=== PATIENT | male | born 1965 | race Caucasian/White ===

== ENCOUNTER → 2017-10-06 13:27 | Outpatient (CLI) | payer OTHER, SELFPAY ==
--- NOTE | 2017-10-06 13:32 | RAD_ITS ---
STUDY: X-RAY - LEFT TIBIA AND FIBULA REASON FOR EXAM: Male, 52 years old. Pain overlying the distal stump. TECHNIQUE: AP and lateral view(s) of the tibia and fibula were obtained. COMPARISON: None. FINDINGS: The patient is status post below knee amputation. Soft tissue swelling. RAD/Tibia & Fibula 2 Views IMPRESSION: Soft tissue swelling. Electronically Signed: Earnest Humphrey MD at 13:47 EDT Tel [phone], Service support ,
== END ==
PROVIDERS: Family Provider Family Medicine; PCP Family Medicine; Visit Provider Physician Assistant Surgical
DX: M79.605 Pain in left leg (principal); Z89.512 Acquired absence of left leg below knee
CPT/HCPCS: 73590

== ENCOUNTER → 2017-10-06 15:22 | Outpatient (CLI) | payer OTHER, SELFPAY ==
--- NOTE | 2017-10-06 15:29 | EKG12_ITS ---
Test Reason : PALP Blood Pressure : / mmHG Vent. Rate : 114 BPM Atrial Rate : 066 BPM P-R Int : 152 ms QRS Dur : 150 ms QT Int : 388 ms P-R-T Axes : 057 -31 110 degrees QTc Int : 534 ms Sinus rhythm with frequent Premature ventricular complexes Possible Left atrial enlargement Left axis deviation Left bundle branch block Abnormal ECG Confirmed by JIN BUSH, MAHSA ([id number]), editorial specialist MACHO SAUCEDO ([id number] on 10/10/2017 1:57:35 PM Referred By: Dharmesh Alonso Confirmed By:MAHSA ABDI MD
[2017-10-06 16:22] LABS: Absolute Lymphocyte Count 3.59 X10^3/ul (0.83-4.51); Absolute Neutrophil Count 5.8 X10^3/uL (2.0-7.7); Basophil# 0.07 X10^3/uL; Basophil% 0.6 % (0-1); Eosinophil# 0.56 X10^3/uL; Hemoglobin 13.7 g/dl (13.0-16.5); Lymphocyte # 3.59 X10^3/ul (4.0); Lymphocyte % 31.9 % (19-41); Mean Corp Hgb Conc 34.3 g/gl (32-36); Mean Corpuscular Hgb 31.1 pg (27.0-32.0); Mean Corpuscular Volume 90.9 fL (80-94); Mean Platelet Vol. 9.3 fl (6.2-12.0); Monocyte# 1.21 X10^3/uL; Monocyte% 10.7 % (0-10); Neutrophil # 5.82 X10^3/uL (2.7-7.7); Neutrophil % 51.6 % (47-70); Platelet Count 343 K/mm3 (150-450); RBC Distribution Width CV 14.8 % (11.6-14.6); RBC Distribution Width SD 48.3 fl (35.1-43.9); White Blood Count 11.3 K/mm3 (4.4-11.0)
[2017-10-06 16:24] LABS: POSITIVE COUNT NO; POSITIVE DIFFERENTIAL NO; POSITIVE MORPHOLOGY NO
[2017-10-06 16:43] LABS: Anion Gap 9 (5-15); BUN 10 mg/dL (7-18); BUN/Creat Ratio 6.1 RATIO (10-20); Calcium,Total 8.9 mg/dL (8.5-10.1); Chloride 99 mmol/L (98-107); Creatinine, Serum 1.63 mg/dL (0.70-1.30); EST Glomerular Filtration Rate 48 mL/min (>60); Est Glom Filt Rate - Afr Amer 57 mL/min (>60); Glucose 83 mg/dL (74-106); Magnesium 2.2 mg/dL (1.6-2.6); Potassium 4.1 mmol/L (3.5-5.1); Sodium Level 134 mmol/L (136-145)
== END ==
LOC: LAB 15:24
PROVIDERS: Visit Provider Internal Medicine
DX: I47.1 Supraventricular tachycardia (principal); M79.605 Pain in left leg; T87.89 Other complications of amputation stump
CPT/HCPCS: 36415; 80048; 83735; 85025; 93005

== ENCOUNTER 2017-10-20 21:15 | Emergency (ER) | payer OTHER, SELFPAY ==
[2017-10-20 21:16] VITALS: BP 157/93; PULSE 124; RESP 20; TEMP 37.4; O2SAT 98; BMI 28.8
--- NOTE | 2017-10-20 22:00 | ED.VISSUMM ---
- ER Visit Summary Date of Service: 10/20/17 Chief Complaint: Acute left stump pain with radiation to the groin, back and occiput. History of Present Illness: The patient is a 52 M who presents because of left stump pain. He states the pain radiates to his groin into his back and up his back to the back of his head then to his forehead. He reports severe photophobia. He states he had a fever. When asked what his temperature was he stated he was not able to take his temperature because he is ill. He denies runny nose, earache, sore throat or postnasal drainage. He does have a cough which is nonproductive. He has had a cough for over 2 weeks. He was treated with a course of azithromycin without improvement. He is a former smoker. He states he has not smoked in 1 year. Denies nausea, vomiting diarrhea. He denies dysuria, frequency, urgency or hematuria. He is pleasant and clindamycin. Clindamycin was started 2 weeks ago. He states he is scheduled for an MRI Monday morning to evaluate his left stump pain. Per prior records he has history of prior clots secondary to hypercoagulable state. He is on no 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 based on medicine list. Does have history of peripheral arterial disease, migraine headaches and hypertension. Physical Examination: Patient has a rag over his head. He will not allow me to remove the rack to look at his eyes. TMs are pearly white phlegm is noted. Nares patent. Posterior pharynx erythema XA. Neck is supple with no meningeal findings. Negative Kernig's presents to side. Lights were turned off and pupils were noted to be 2 mm equal and reactive. Uncertain whether he does or does not have photophobia. Unable to perform funduscopic exam. Heart is regular without murmur, gallop or rub. S1 and S2 are normal. Lungs are clear to auscultation with good movement of air bilaterally. Abdomen is soft nontender. Patient has pain out of proportion to light tactile stimulus of his left lower extremity. Patient states he has drainage from the stump. There is no evidence of drainage or erythema along the incision line. He has mild erythema over the patella, which she reports she has had for 2 weeks. There is no lymphangitis. There is no inguinal lymphadenopathy. Unable to determine if he has fluctuance because touching his skin causes him to scream out and withdraw his left lower extremity. Test Results: White count is slightly elevated and has been elevated on prior tests. Creatinine is 1.66. His creatinine has been elevated in the past. He was unaware that he had end-stage renal disease. Lactate was normal at 1.4. 4 view x-ray of the knee reveals osteopenia. There is mild degenerative changes noted. There is a stent noted mid/distal medial thigh secondary to peripheral arterial disease. Two-view chest x-ray reveals normal cardiac silhouette, mediastinum and lung parenchyma with no evidence of infiltrate. Emergency Department Course and Treatment: To evaluate patient's stump pain and x-ray was obtained to evaluate for foreign body subcutaneous air etc. Chest x-ray was obtained since he had cough for 2 weeks with no improvement and mild rales. There is no egophony or increased vocal fremitus. CBC and BMP were obtained as well as lactate because he reported he had similar presentation and had a significant infection which resulted in a BKA. He did receive IV Toradol for his headache and pain. When he was reassessed at 0125 he reports his headache and stomach pain resolved. He was informed that he has abnormal kidney functions and should avoid anti-inflammatory medication. Treatment Plan: Keep appointment for outpatient MRI. Avoid anti-inflammatory medication. Disposition: Discharged to home in stable and improved condition with resolution of pain Impression: 1. Acute left stump pain unknown etiology 2. Severe headache in patient with known history of migraines 3. Renal insufficiency, chronic 4. History of hypertension This note was generated with [employer] dictation software. It may contain incorrect words, spelling, and punctuation that were not noted in review of the chart prior to signing ED Disposition - Plan for ED Patient: Disposition: Home or Assisted Living Chief Complaint: Other, Pain/Inj Instructions: ED Insufficiency Renal, ED Acute Pain [facility] Referrals: Dharmesh Alonso MD [Primary Care Provider] - Keep Georgie appointment
--- NOTE | 2017-10-20 22:16 | RAD_ITS ---
STUDY: X-RAY - LEFT KNEE REASON FOR EXAM: Male, 52 years old. Infection to the left leg. TECHNIQUE: 4 view(s) of the knee. COMPARISON: Male of an 2017 FINDINGS: Patient status post below the knee amputation. The bones are diffusely demineralized. There are mild degenerative changes of the patellofemoral joint. There is a stent within the medial thigh. There is soft tissue swelling. RAD/Knee 4 or More Views IMPRESSION: Soft tissue swelling. Electronically Signed: Dona Lopez MD at 23:34 EDT Tel , Service support ,
[2017-10-20] MEDS: Ketorolac 30 MG/ML Syringe IV (22:52)
[2017-10-20] MEDS: 0.9% Normal Saline 1,000 ML 250 ML IV (22:52)
[2017-10-20 22:56] VITALS: BP 152/93; PULSE 117; RESP 18; O2SAT 98
[2017-10-20 23:08] LABS: Absolute Lymphocyte Count 3.42 X10^3/ul (0.83-4.51); Absolute Neutrophil Count 8.2 X10^3/uL (2.0-7.7); Basophil# 0.07 X10^3/uL; Basophil% 0.5 % (0-1); Eosinophil# 0.67 X10^3/uL; Eosinophils% 4.9 % (0-5); Hematocrit 39.4 % (40-54); Hemoglobin 13.8 g/dl (13.0-16.5); Lymphocyte # 3.42 X10^3/ul (4.0); Mean Corpuscular Hgb 31.9 pg (27.0-32.0); Mean Corpuscular Volume 91.2 fL (80-94); Mean Platelet Vol. 9.3 fl (6.2-12.0); Monocyte# 1.33 X10^3/uL; Monocyte% 9.7 % (0-10); Neutrophil # 8.18 X10^3/uL (2.7-7.7); Neutrophil % 59.7 % (47-70); Platelet Count 381 K/mm3 (150-450); RBC Distribution Width CV 14.8 % (11.6-14.6); RBC Distribution Width SD 48.2 fl (35.1-43.9); Red Blood Count 4.32 M/mm3 (4.6-6.2); White Blood Count 13.7 K/mm3 (4.4-11.0)
--- NOTE | 2017-10-20 23:10 | RAD_ITS ---
STUDY: X-RAY CHEST REASON FOR EXAM: Male, 52 years old. Cough. TECHNIQUE: AP and lateral views of the chest. COMPARISON: September 12, 2016 FINDINGS: The lungs are clear and expanded. There is no demonstrated pleural abnormality. Normal size heart. Normal mediastinum and edgar. Normal visualized pulmonary arteries. Normal visualized aortic arch and descending thoracic aorta. Normal visualized thoracic spine. Normal visualized ribs, clavicles, and shoulders. There is no demonstrated abnormality of the visualized soft tissue structures of the upper abdomen. RAD/Chest PA and Lateral IMPRESSION: No acute cardiopulmonary process. Electronically Signed: Dona Lopez MD at 23:35 EDT Tel , Service support ,
[2017-10-20 23:11] LABS: POSITIVE COUNT NO; POSITIVE DIFFERENTIAL NO; POSITIVE MORPHOLOGY NO
[2017-10-20 23:20] LABS: Anion Gap 8 (5-15); BUN 9 mg/dL (7-18); BUN/Creat Ratio 5.4 RATIO (10-20); Calcium,Total 8.7 mg/dL (8.5-10.1); Chloride 102 mmol/L (98-107); Creatinine, Serum 1.66 mg/dL (0.70-1.30); EST Glomerular Filtration Rate 47 mL/min (>60); Est Glom Filt Rate - Afr Amer 56 mL/min (>60); Estimated Creatinine Clearance 60.52 ml/min; Glucose 83 mg/dL (74-106); Potassium 4.1 mmol/L (3.5-5.1); Sodium Level 133 mmol/L (136-145)
[2017-10-20 23:29] LABS: Lactic Acid 1.4 mmol/L (0.4-2.0)
[2017-10-21 01:52] VITALS: BP 103/62; PULSE 74; RESP 19; O2SAT 97
--- NOTE | 2017-10-21 01:53 | ED.RN ---
IV DC'ED, CATHETER INTACT, SMALL GAUZE DRESSING PLACED. DISCHARGE INSTRUCTIONS GIVEN TO AND REVIEWED WITH PATIENT, PATIENT DENIES QUESTIONS OR CONCERNS AND VOICES UNDERSTANDING OF DISCHARGE INSTRUCTIONS. PT TO PRIVATE VEHICLE VIA WHEELCHAIR.
== END 2017-10-21 01:54 | disposition home or self-care (01) ==
PROVIDERS: Emergency Provider Emergency Medicine; Family Provider Internal Medicine; PCP Internal Medicine
DX: R51 Headache (principal); I12.9 Hypertensive chronic kidney disease with stage 1 through stage 4 chronic kidney disease, or unspecified chronic kidney disease; N18.9 Chronic kidney disease, unspecified; I73.9 Peripheral vascular disease, unspecified; Z87.891 Personal history of nicotine dependence; D68.59 Other primary thrombophilia; Z89.9 Acquired absence of limb, unspecified
CPT/HCPCS: 71046; 73564; 80048; 83605; 85025; 99284; J7030

== ENCOUNTER → 2017-10-21 07:58 | Outpatient (CLI) | payer OTHER, SELFPAY ==
--- NOTE | 2017-10-21 08:05 | MRI_ITS ---
STUDY: MRI LEFT KNEE REASON FOR EXAM: Male, 52 years old. Redness, seepage from end of stump, no open wound, x 2 weeks, not diabetic, wears prosthesis, recent fever not sure if from cold/cough or infection, antibiotics past 2 weeks, amputation due to blood clots 3 years ago TECHNIQUE: Standardized fat and water weighted pulse sequences were obtained in all 3 orthogonal planes. COMPARISON: None. FINDINGS: Normal medial meniscus. Normal hyaline cartilage of the medial femorotibial compartment. Normal medial femoral condyle and tibial plateau. Normal medial collateral ligamentous complex (MCL). Normal distal semimembranosus, gracilis and semitendinosus tendons. Normal lateral meniscus. Normal hyaline cartilage of the lateral femorotibial compartment. Normal lateral femoral condyle and tibial plateau. Normal proximal tibiofibular articulation. Normal lateral collateral (fibular) ligament. Normal popliteus tendon. Normal biceps femoris tendon. Normal anterior cruciate ligament (ACL). Normal posterior cruciate ligament (PCL). Normal congruent patellofemoral articulation. Normal hyaline cartilage of the patellofemoral compartment. Normal medial and lateral patellar retinaculum. Normal quadriceps tendon. Normal patellar tendon. Normal Hoffa's fat pad. There is no joint effusion. Within the region of the below knee amputation is noted distal surrounding inflammatory stranding and edema encompassing the anterior soft tissues extending along the anterior tibia as seen on series 3 image 14 in addition there is edema within the distal anterior aspect of the osseous amputation site of the tibia. Postcontrast imaging demonstrates enhancement of the tissues as well as the distal anterior aspect of the tibial amputation site within the cortex. The otherwise visualized osseous structures are unremarkable. MRI/Lower Ext Joint Only W/WO Cont IMPRESSION: 1. Findings consistent with distal soft tissue surrounding enhancement and inflammation corresponding to infection with small area of osteomyelitis within the distal anterior tibia given corresponding increased T2 signal and enhancement. The affected portion of the tibia encompasses approximately 4.5 cm of the distal anterior inferior tibia as seen on sagittal series 3 image 14. Electronically Signed: Antolin Lopez DO at 14:28 EDT , Service support ,
== END ==
LOC: MRI 07:58
PROVIDERS: Family Provider Internal Medicine; PCP Internal Medicine; Visit Provider Internal Medicine
DX: T87.89 Other complications of amputation stump (principal); M79.605 Pain in left leg
CPT/HCPCS: 73723; A9585

== ENCOUNTER → 2017-12-11 12:12 | Outpatient (CLI) | payer OTHER, SELFPAY ==
[2017-12-11 13:51] LABS: International Normalized Ratio 4.1
[2017-12-11 15:46] LABS: Prothrombin Time (Protime)PT. 40.3 SECONDS (11.7-14.9)
== END ==
PROVIDERS: Family Provider Internal Medicine; PCP Internal Medicine; Visit Provider Internal Medicine
DX: Z79.01 Long term (current) use of 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s (principal)
CPT/HCPCS: 36415; 85610

== ENCOUNTER → 2017-12-18 13:20 | Outpatient (CLI) | payer OTHER, SELFPAY ==
[2017-12-18 15:52] LABS: International Normalized Ratio 2.1; Prothrombin Time (Protime)PT. 23.9 SECONDS (11.7-14.9)
== END ==
PROVIDERS: Family Provider Internal Medicine; PCP Internal Medicine; Visit Provider Internal Medicine
DX: Z79.01 Long term (current) use of 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s (principal)
CPT/HCPCS: 36415; 85610

== ENCOUNTER → 2018-01-27 08:18 | Outpatient (CLI) | payer OTHER, SELFPAY ==
[2018-01-27 09:52] LABS: Basophil# 0.07 X10^3/uL; Basophil% 0.8 % (0-1); Eosinophil# 0.56 X10^3/uL; Eosinophils% 6.8 % (0-5); Hematocrit 41.3 % (40-54); Hemoglobin 13.2 g/dl (13.0-16.5); Lymphocyte % 36.2 % (19-41); Mean Corpuscular Hgb 30.1 pg (27.0-32.0); Mean Corpuscular Volume 94.3 fL (80-94); Mean Platelet Vol. 9.1 fl (6.2-12.0); Monocyte# 0.66 X10^3/uL; Neutrophil # 3.98 X10^3/uL (2.7-7.7); Neutrophil % 48.1 % (47-70); Platelet Count 344 K/mm3 (150-450); RBC Distribution Width CV 18.5 % (11.6-14.6); RBC Distribution Width SD 64.1 fl (35.1-43.9); Red Blood Count 4.38 M/mm3 (4.6-6.2); White Blood Count 8.3 K/mm3 (4.4-11.0)
[2018-01-27 09:53] LABS: Differential Indicated SCAN CRITERIA MET; POSITIVE COUNT NO; POSITIVE DIFFERENTIAL NO; POSITIVE MORPHOLOGY YES
[2018-01-27 10:25] LABS: ALB/GLOB Ratio 0.8 RATIO (0.9-2.4); AST(SGOT) 21 U/L (15-37); Alanine Aminotransfer ALT/SGPT 26 U/L (16-61); Albumin, Serum 3.6 g/dL (3.2-5.0); Alkaline Phosphatase 74 U/L (45-117); Anion Gap 7 (5-15); BUN 8 mg/dL (7-18); BUN/Creat Ratio 5.5 RATIO (10-20); Calcium,Total 9.4 mg/dL (8.5-10.1); Chloride 105 mmol/L (98-107); Creatinine, Serum 1.45 mg/dL (0.70-1.30); EST Glomerular Filtration Rate 54 mL/min (>60); Est Glom Filt Rate - Afr Amer 66 mL/min (>60); Globulin 4.5 g/dL (2.2-4.2); Glucose 95 mg/dL (74-106); Potassium 4.9 mmol/L (3.5-5.1); Protein, Total 8.1 g/dL (6.4-8.2); Sodium Level 141 mmol/L (136-145)
== END ==
PROVIDERS: Family Provider Internal Medicine; PCP Internal Medicine; Visit Provider Internal Medicine
DX: M86.9 Osteomyelitis, unspecified (principal)
CPT/HCPCS: 36415; 73562; 80053; 85025

== ENCOUNTER 2018-02-21 11:12 | Outpatient (RCR) | payer OTHER, SELFPAY ==
[2018-02-21 12:22] LABS: Prothrombin Time (Protime)PT. 37.6 SECONDS (11.7-14.9)
[2018-02-21 12:33] LABS: International Normalized Ratio 3.8
[2018-02-21 12:44] LABS: Anion Gap 7 (5-15); BUN 12 mg/dL (7-18); BUN/Creat Ratio 8.7 RATIO (10-20); Calcium,Total 8.9 mg/dL (8.5-10.1); Chloride 100 mmol/L (98-107); Cholesterol 102 mg/dL (200); Creatinine, Serum 1.38 mg/dL (0.70-1.30); EST Glomerular Filtration Rate 57 mL/min (>60); Est Glom Filt Rate - Afr Amer 70 mL/min (>60); Glucose 87 mg/dL (74-106); High Density Lipoprotein 36 mg/dL; Potassium 4.7 mmol/L (3.5-5.1); Sodium Level 133 mmol/L (136-145); Triglycerides 138 mg/dL; Very Low Density Lipoprotein 28 mg/dL (5-40)
== END 2018-02-21 13:00 | disposition home or self-care (01) ==
LOC: MTLAB 11:12
PROVIDERS: Family Provider Internal Medicine; PCP Internal Medicine; Referring Provider Internal Medicine; Visit Provider Internal Medicine
DX: I10 Essential (primary) hypertension (principal); I25.10 Atherosclerotic heart disease of native coronary artery without angina pectoris; Z51.81 Encounter for therapeutic drug level monitoring; Z79.01 Long term (current) use of 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s
CPT/HCPCS: 36415; 80048; 80061; 85610

== ENCOUNTER 2018-03-05 09:56 | Outpatient (RCR) | payer OTHER, SELFPAY ==
[2018-03-05 10:14] VITALS: BP 126/89; PULSE 79; RESP 18; TEMP 36.2; BMI 25.1
--- NOTE | 2018-03-05 22:37 | HBO.CON.PC_ITS ---
History of Present Illness Date of Service: 03/05/18 Presenting Chief Complaint: Chronic refractory osteomyeliti left BKA stump. The patient is a 52 year old M who [facility] the possibility of initiating hyperbaric oxygen therapy for treatment of chronic refractory osteomyelitis left BKA stump. He also has pain in his left BKA stump. 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 He had a nonhealing ulcer anteriorly over the bone that is presently healed. He was recently admitted to [facility] for IV antibiotics because of this ulceration and underlying osteomyelitis. He had an MRI done on 10/21/17 which showed osteomyelitis. During his IV antibiotic therapy, he developed a blood clot and PE. He is now on Coumadin. Because of the pain in his stump, he is unable to use his prosthesis. Today he denies any fever. He denies any recent trauma. He presents at this time for further evaluation for HBO therapy for his chronic refractory osteomyelitis. Past Medical History Past Medical History Pertinent to Hyperbaric Oxygen Therapy: - - had PE during the Summer that is being treated with Coumadin. Chronic Problems (Last Updated 02/21/18 @ 10:20 by Stella Zamora) 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) Former smoker (Chronic) FPC current use of 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 (Chronic) Patient is on Coumadin for PE Chronic osteomyelitis of left tibia (Chronic) chronic osteomyelitis left tibia at BKA stump 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) Pain of amputation stump of left lower extremity (Chronic) Dermatitis (Chronic) CAD (coronary artery disease) (Chronic) Osteomyelitis of left lower extremity (Chronic) Tachycardia (Chronic) Pain of left anterior lower extremity (Chronic) HTN (hypertension) (Chronic) Hypertension (Chronic) Peripheral arterial disease (Chronic) SVT (supraventricular tachycardia) (Chronic) Hypercoagulable state (Chronic) Wound, surgical, nonhealing (Chronic) Ischemic ulcer of right foot (Chronic) Allergies/Adverse Reactions: Allergies oxycodone [From OxyContin] Allergy (Verified 02/21/18 10:37) Other Penicillins Allergy (Verified 02/21/18 10:37) Swelling Home Medications: Ambulatory Orders Medication Instructions Recorded atorvastatin 40 mg tablet 40 mg PO QDAY #90 tab 01/26/18 carvedilol 12.5 mg tablet 12.5 mg PO BID #90 tab 01/26/18 tramadol 50 mg tablet 50 mg PO Q6H PRN #60 tab 01/26/18 warfarin 3 mg tablet 3 mg PO QDAY #90 tab 01/26/18 lisinopril 20 mg tablet 20 mg PO DAILY #90 tab 02/09/18 Gabapentin [Neurontin] 300 mg PO 03/05/18 Oxycodone HCl/Acetaminophen 1 tablet PO Q6H PRN PRN 03/05/18 [Percocet 2.5-325 mg Tablet] Maternal Family History: Family History (Last Reviewed 02/09/18 @ 08:15 by Mila Taveras) Other CVA (cerebral vascular accident) Cancer Heart disease Family History: Cancer, Diabetes, Heart Disease, Renal Disease Paternal Family History: Family History (Last Reviewed 02/09/18 @ 08:15 by Mila Taveras) Other CVA (cerebral vascular accident) Cancer Heart disease Family History: Cancer Lives: Spouse/ Significant Other Smoking Status: Former smoker Alcohol: None Drugs: None Review of Systems General - Denies fever and weight loss. Has fatigue. Eyes - Denies cataracts and glaucoma. ENT - Denies nasal congestion and sore throat. Endocrine - Denies excessive thirst and urination. Skin - Denies suspicious lesions and skin cancer. Musculoskeletal - Has joint pain, joint stiffness, weakness of muscles and joints. Denies back pain and arthritis. Has left BKA. Has osteomyelitis. Neuro - Has headaches. Cardiovascular - Denies chest pain and shortness of breath with exertion. Has fatigue. Psych - Denies anxiety and depression. Respiratory - Denies chronic cough and shortness of breath. Patient is a former smoker. Gastrointestinal - Denies nausea, vomiting, diarrhea, and constipation. Hematologic - Has abnormal bruising and bleeding tendency as he is on Coumadin for a PE. Genitourinary - Denies hematuria and urinary frequency. - Physical Exam General - Alert and Oriented HEENT - PERRL. EOMI. Throat is clear. TM's are clear. No bleeding noted. Neck - Supple and nontender. No cervical adenopathy. Lungs - Clear to auscultation. Heart - Regular rate and rhythm. Abdomen - Soft and nondistended. Extremities - FROM except for left lower extremity secondary to left BKA. No axillary adenopathy. Radial pulses are palpable. Femoral pulses are palpable. On the left BKA stump anteriorly over the tibial bone is scar tissue from recent ulceration that is healed at this time. Tenderness to palpation. No drainage expressed. No evidence of cellulitis, fluctuance, or purulent drainage. The length of the tibia from the anterior tibial tubercle is 12 cm. Neuro - CN II-XII grossly intact. Psych - Normal mood and affect. Vital Signs Temp Pulse Resp BP 97.2 F L 79 18 126/89 H 03/05/18 10:14 03/05/18 10:14 03/05/18 10:14 03/05/18 10:14 Wound Measurements and Assessment - Nurse 1 - General Ulcer Measurement Start: 03/05/18 10:13 Freq: Status: Active Protocol: Activity Type Activity Date Activity User E-Sign Co-Sign Detail Recorded Client Recorded Date Recorded By Document 03/05/18 10:14 DL [id number] 03/05/18 10:25 DL 03/05/18 10:14 Wound Center Nurse 1 [Ulcer Assessment] #3 L BKA stump -Current Size (cm) - Length 0.1 -Current Size (cm) - Width 0.1 -Current Size (cm) - Depth 0.1 -Total Square Cm 0.01 -Photo Taken Yes -Tunneling No -Classification - Thickness Partial Thickness -Exudate Amt Small (1-33%) -Exudate Type Yellow/Green -Wound Margin Flat & Intact -Granulation Amt None Present (0 %) -Necrosis Amt None Present (0 %) -Structure Exposed N/A -Texture (Ami-wound Skin Appearance) Scarring -Moisture (Ami-wound Skin Appearance No Abnormality ) -Color (Ami-wound Skin Appearance) No Abnormality -Temperature (Ami-wound Skin No Abnormality Appearance) (Pt Warm) -Ulcer Cleansing Rinsed/ Irrigated with Saline -Foul Odor after Cleansing No -Anesthetic Used 4% Lidocaine Solution - Nurse 2 - General Ulcer CM Notes Start: 03/05/18 10:13 Freq: Status: Active Protocol: Activity Type Activity Date Activity User E-Sign Co-Sign Detail Recorded Client Recorded Date Recorded By Document 03/05/18 11:05 FLAVIA [id number] 03/05/18 11:13 FLAVIA 03/05/18 11:05 Wound Center Nurse 2 [Procedure/Treatment] -Correct Patient No -Correct Side, Site, Position No -Correct Procedure No -Procedure Performed No -Wound/Ulcer Outcome Not Healed -Ulcer Cleansing Rinsed/ Irrigated with Saline -Foul Odor after Cleansing No -Bioengineered Tissue No -Bleeding Controlled with NA -Treatment Response Procedure Tolerated Well [See Physician Procedure note for Specifics] Pain Scale: 0-10 Numeric [Pain] -Is Patient Pain Free? Yes Assessment/Plan JANIE CHIN is an appropriate candidate for hyperbaric oxygen therapy. Hyperbaric Oxygen Therapy would be an essential adjunct in the resolution and treatment of this patient's presenting problem of chronic refractory osteomyelitis in left BKA stump. This patient has sufficient physiologic and psychological stamina to undergo the rigors of hyperbaric oxygen therapy. As such, I recommend the following: Hyperbaric Oxygen Treatments at 2.0 SHARDA in 100% Oxygen for 90 minutes per treatment, for 40 treatments. His ears are ok. His last CXR was back in September but since then he had a PE during the Summer. Therefore will obtain another CXR prior to starting HBO therapy. I have discussed the possible benefits of hyperbaric oxygen therapy with this patient. I have also presented and described the risks, including: air gas embolism, pneumothorax, central nervous system and pulmonary oxygen toxicity, flash pulmonary edema, hypoglycemia, reversible visual refractive changes, ear and sinus jelena-trauma, and confinement anxiety. The patient has verbalized understanding of these risks, and is still wanting to undergo hyperbaric oxygen therapy. The patient understands the significant time and transportation commitment involved in daily treatments of up to two hours duration and has stated that they are willing to commit to this therapy. With his history of osteomyelitis, he would benefit from HBO treatments. Would do treatments before any operative intervention and then do treatments after surgery as well to help the healing process. Recommend operative intervention with initial surgical preparation of the left BKA stump with excisional debridement of the nonhealing ulcer with partial ostectomy tibia for osteomyelitis. Would leave the wound open and proceed with the VAC or with daily Silver dressing changes. If osteomyelitis is present, would need IV antibiotics. Prior to revision of the amputation stump with readvancement of the muscle flap and partial ostectomy and secondary wound closure, will need Pathology report that is negative for osteomyelitis. Depending on the severity of the osteomyelitis and the proximal extent of the osteomyelitis, I may not be able to revise the left BKA stump if too much of the tibia has to be removed to control the osteomyelitis. If so, then would need to proceed to a left AKA. - HBOT Diagnosis Chronic Refractory Osteomyelitis (730.1)
== END 2018-03-28 23:59 ==
LOC: WC 09:56
PROVIDERS: Family Provider Internal Medicine; PCP Internal Medicine; Visit Provider Surgery
DX: M86.662 Other chronic osteomyelitis, left tibia and fibula (principal); Z89.512 Acquired absence of left leg below knee; Z86.711 Personal history of pulmonary embolism; Z79.01 Long term (current) use of 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s; Z87.891 Personal history of nicotine dependence; I10 Essential (primary) hypertension; I25.10 Atherosclerotic heart disease of native coronary artery without angina pectoris; I73.9 Peripheral vascular disease, unspecified; Z79.899 Other long term (current) drug therapy
CPT/HCPCS: 99213; G0463

== ENCOUNTER 2018-03-07 13:52 | Outpatient (RCR) | payer OTHER, SELFPAY ==
--- NOTE | 2018-03-07 14:11 | RAD_ITS ---
STUDY: X-RAY CHEST REASON FOR EXAM: Male, 52 years old. Hyperbaric oxygen therapy. No complaints TECHNIQUE: 2 views COMPARISON: October 20, 2017 FINDINGS: The lungs are clear and expanded. There is no demonstrated pleural abnormality. Normal size heart. Normal mediastinum and edgar. Normal visualized pulmonary arteries. Normal visualized aortic arch and descending thoracic aorta. Normal visualized thoracic spine. Normal visualized ribs, clavicles, and shoulders. There is no demonstrated abnormality of the visualized soft tissue structures of the upper abdomen. RAD/Chest PA and Lateral IMPRESSION: Normal x-ray examination of the chest. No acute findings in the lungs Electronically Signed: James Ortiz MD at 4:45 EDT Tel , Service support ,
[2018-03-07 17:26] LABS: Prothrombin Time (Protime)PT. 39.6 SECONDS (11.7-14.9)
== END 2018-03-07 16:00 | disposition home or self-care (01) ==
LOC: LAB 13:52
PROVIDERS: Family Provider Internal Medicine; PCP Internal Medicine; Referring Provider Internal Medicine; Visit Provider Internal Medicine
DX: Z79.01 Long term (current) use of 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s (principal); R05 Cough
CPT/HCPCS: 36415; 71046; 85610

== ENCOUNTER 2018-04-03 10:50 | Inpatient (IN) | payer OTHER, SELFPAY ==
[2018-04-03 11:29] VITALS: BP 137/95; PULSE 80; RESP 18; TEMP 36.4; O2SAT 99; BMI 24.5
--- NOTE | 2018-04-03 12:23 | PCM.RX.CS ---
Consult Pharmacy has been consulted to manage selected antiobiotic: Vancomycin Type of Consult: New start Suspected Infection: Other Weight used for dosin kg Estimated Creatinine Clearance: 72 mL/min Goal Trough: 15-20 mcg/mL Pharmacy Plan for Drug Dosing: Vancomycin 1250mg IV x1 followed by 1250mg IV q12h with trough prior to 4th dose per nomogram. Pharmacy Service will continue to monitor and adjust dosing as required. Follow-Up Labs: Trough Vancomycin - 04/04 @ 2130
[2018-04-03 12:47] LABS: Hematocrit 40.7 % (40-54); Hemoglobin 13.7 g/dl (13.0-16.5); Mean Corp Hgb Conc 33.7 g/gl (32-36); Mean Corpuscular Hgb 31.4 pg (27.0-32.0); Mean Corpuscular Volume 93.3 fL (80-94); Mean Platelet Vol. 9.2 fl (6.2-12.0); Platelet Count 294 K/mm3 (150-450); RBC Distribution Width CV 15.6 % (11.6-14.6); RBC Distribution Width SD 52.9 fl (35.1-43.9); Red Blood Count 4.36 M/mm3 (4.6-6.2); Scan Indicated on CBC? Y/N NO
[2018-04-03 12:54] LABS: International Normalized Ratio 2.1; Partial Thromboplast Time 41.9 Seconds (24.1-36.2)
[2018-04-03 13:11] LABS: ALB/GLOB Ratio 0.8 RATIO (0.9-2.4); AST(SGOT) 28 U/L (15-37); Alanine Aminotransfer ALT/SGPT 38 U/L (16-61); Albumin, Serum 3.8 g/dL (3.2-5.0); Alkaline Phosphatase 95 U/L (45-117); Anion Gap 8 (5-15); BUN 14 mg/dL (7-18); BUN/Creat Ratio 10.7 RATIO (10-20); Calcium,Total 8.6 mg/dL (8.5-10.1); Chloride 103 mmol/L (98-107); Creatinine, Serum 1.31 mg/dL (0.70-1.30); EST Glomerular Filtration Rate 61 mL/min (>60); Est Glom Filt Rate - Afr Amer 74 mL/min (>60); Estimated Creatinine Clearance 76.69 ml/min; Globulin 4.6 g/dL (2.2-4.2); Glucose 54 mg/dL (74-106); Prealbumin 31.2 mg/dL (20.0-40.0); Protein, Total 8.4 g/dL (6.4-8.2); Sodium Level 135 mmol/L (136-145)
--- NOTE | 2018-04-03 13:14 | CASEMGMT ---
DARSHAN WINCHESTER INITIAL ASSESSMENT D/C PLAN: Home. Agreeable to [facility] if goes home on IV atb's. Face to Face with patient for initial transition planning/care coordination assessment. DARSHAN WINCHESTER introduced self and role at [facility]. Care providers, pharmacy, and demographics verified. PCP: Dr Alonso Specialists: Shilpa Ramos Pharmacy: [facility] [place] Insurance: [employer] Prescription Benefit: [employer] Living Will/HPOA: Has both LW and HPOA. HPOA is his , Roxana. Pt states thought [facility] had copies from prior admissions. Not found on e-chart. Asked pt if his could bring in paperwork so they could be scanned in. LNOK: Living Arrangements: Lives with his , son, and daughter. Lives in one-story home. Has ramp to enter. Transportation: Pt drives and able to provide transportation if needed. DME: Has shower chair/tub bench, cane, crutches, walker, and wheelchair. Denies other DME needs. HHC: Has used a couple different HHC agencies in the past. Does not remember names of the agencies. Has no preference of HHC agency on discharge if he would need. Also states has no preference of infusion company for IV antibiotics. Pt wishes to return home on discharge. Agreeable to [facility] if goes home on IV atb's. CM to follow for any further discharge planning needs that may arise. Gina PATEL RN, CM
--- NOTE | 2018-04-03 15:55 | RAD_ITS ---
STUDY: X-RAY CHEST REASON FOR EXAM: Male, 52 years old. PICC line placement TECHNIQUE: 2 AP portable views COMPARISON: 03/07/2018 FINDINGS: Left-sided PICC line has been placed, tip is in the distal SVC. The lungs are clear and expanded. There is no demonstrated pleural abnormality. Normal size heart. Normal mediastinum and edgar. Normal visualized pulmonary arteries. Normal visualized aortic arch and descending thoracic aorta. Normal visualized thoracic spine. Normal visualized ribs, clavicles, and shoulders. There is no demonstrated abnormality of the visualized soft tissue structures of the upper abdomen. RAD/CXR for Line Placement IMPRESSION: No acute pulmonary process Left PICC line tip in the distal SVC Electronically Signed: Cody Bosch MD at 16:58 EST , Service support ,
[2018-04-03] MEDS: Lactated Ringers 1,000 ML 60 ML IV (16:55)
[2018-04-03] MEDS: levoFLOXacin IV 500 MG/100 ML BAG 100 MG IV (16:55)
[2018-04-03 17:00] VITALS: BP 135/95; PULSE 98; RESP 18; TEMP 36.8; O2SAT 98
[2018-04-03] MEDS: 0.9% NaCl Peripheral Flush Adult/Peds IV ×2 (17:00→18:25)
[2018-04-03] MEDS: oxyCODONE 5 MG Tablet 10 MG PO (17:06)
--- NOTE | 2018-04-03 17:24 | PCM.HP.BLA ---
History and Physical Date of Admission: 04/03/18 Allergies oxycodone [From OxyContin] Allergy (Verified 02/21/18 10:37) Other Penicillins Allergy (Verified 02/21/18 10:37) Swelling Medications atorvastatin 40 mg tablet 40 mg PO QDAY #90 tab 01/26/18 [Rx Confirmed 01/26/18] carvedilol 12.5 mg tablet 12.5 mg PO BID #90 tab 01/26/18 [Rx Confirmed 01/26/18] tramadol 50 mg tablet 50 mg PO Q6H PRN #60 tab 01/26/18 [Rx Confirmed 01/26/18] triamcinolone acetonide 0.025 % topical ointment 1 applic TOPICAL BID #454 g 01/26/18 [Rx Confirmed 01/26/18] warfarin 3 mg tablet 3 mg PO QDAY #90 tab 01/26/18 [Rx Confirmed 01/26/18] lisinopril 20 mg tablet 20 mg PO DAILY #90 tab 02/09/18 [Rx Confirmed 02/09/18] oxycodone-acetaminophen 5 mg-325 mg tablet 1 tab PO 4X/DAY PRN #30 tab 02/21/18 [Rx Confirmed 02/21/18] PFSH Medical History History of blood clots (Acute) Limb weakness (Acute) Difficulty balancing (Acute) Chest pain (Acute) Migraines (Acute) Fatigue (Acute) SOB (shortness of breath) (Acute) HTN (hypertension) (Chronic) Anemia (Acute) Arthritis (Acute) Gallstones (Acute) Vascular disease (Acute) Surgical History Amputation, traumatic, leg (Acute) H/O right heart catheterization (Acute) History of cholecystectomy (Acute) History of surgical removal of testicle (Acute) Family History Other CVA (cerebral vascular accident) Cancer Heart disease Social History Smoking Status: Former smoker how long ago did patient quit smokin alcohol intake: never substance use type: does not use what type of physical activity do you participate in: walking frequency: daily additional social history: DOES USE ASPIRIN DOES USE IBUPROFEN HPI evaluation nonhealing painful ulcer left BKA stump with associated osteomyelitis: Details: HISTORY OF PRESENT ILLNESS 52 year old man presents with complaints of pain in his left BKA stump. 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 He had a nonhealing ulcer anteriorly over the bone that is presently healed. He was recently admitted to [facility] for IV antibiotics because of this ulceration and underlying osteomyelitis. He had an MRI done on 10/21/17 which showed osteomyelitis. During his IV antibiotic therapy, he developed a blood clot and PE. He is now on Coumadin. Because of the pain in his stump, he is unable to use his prosthesis. Today he denies any fever. He denies any recent trauma. There has been some issues getting HBO approval before the surgery. So he presents today to start IV antibiotics and to start IV Heparin and stop the Coumadin in preparation for operative debridement of his amputation stump. REVIEW OF SYSTEMS General - Denies fever and weight loss. Has fatigue. Eyes - Denies cataracts and glaucoma. ENT - Denies nasal congestion and sore throat. Endocrine - Denies excessive thirst and urination. Skin - Denies suspicious lesions and skin cancer. Musculoskeletal - Has joint pain, joint stiffness, weakness of muscles and joints. Denies back pain and arthritis. Has left BKA. Has osteomyelitis. Neuro - Has headaches. Cardiovascular - Denies chest pain and shortness of breath with exertion. Has fatigue. Psych - Denies anxiety and depression. Respiratory - Denies chronic cough and shortness of breath. Patient is a former smoker. Gastrointestinal - Denies nausea, vomiting, diarrhea, and constipation. Hematologic - Has abnormal bruising and bleeding tendency as he is on Coumadin for a PE. Genitourinary - Denies hematuria and urinary frequency. PHYSICAL EXAMINATION General - Alert and Oriented HEENT - PERRL. EOMI. Throat is clear. Neck - Supple and nontender. No cervical adenopathy. Lungs - Clear to auscultation. Heart - Regular rate and rhythm. Abdomen - Soft and nondistended. Extremities - FROM except for left lower extremity secondary to left BKA. No axillary adenopathy. Radial pulses are palpable. Femoral pulses are palpable. On the left BKA stump anteriorly over the tibial bone is scar tissue with ulceration from a recent fall. Patient states it heals with scar tissue and then breaks open. Tenderness to palpation. No drainage expressed. No evidence of cellulitis, fluctuance, or purulent drainage. The length of the tibia from the anterior tibial tubercle is 12 cm. Neuro - CN II-XII grossly intact. Psych - Normal mood and affect. ASSESSMENT 1. Nonhealing ulcer left BKA stump. 2. Pain left BKA stump. 3. 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 4. 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 PLAN MRI from Sep, 2017 reviewed. Findings consistent with osteomyelitis. With his history of osteomyelitis, he would benefit from HBO treatments. Tried to do treatments before operative intervention. Had trouble getting the medical approval, so will do treatments after surgery to help the healing process. Recommend operative intervention with initial surgical preparation of the left BKA stump with excisional debridement of the nonhealing ulcer with partial ostectomy tibia for osteomyelitis. Would leave the wound open and proceed with the VAC or with daily Silver dressing changes. Will send bone to Pathology for analysis to evaluate for osteomyelitis and to Microbiology for culture. Previous cultures are unknown in [place] and patient thinks it may be MRSA. So will start with broad spectrum coverage with Vancomycin, Levaquin, and Flagyl. A positive culture may necessitate antibiotic modification. If osteomyelitis is present, would need IV antibiotics detention. With his history of infection, I anticipate at least 1-2 weeks of IV antibiotics and will have a PICC line placed. Prior to revision of the amputation stump with readvancement of the muscle flap and partial ostectomy and secondary wound closure, will need Pathology report that is negative for osteomyelitis. Depending on the severity of the osteomyelitis and the proximal extent of the osteomyelitis, I may not be able to revise the left BKA stump if too much of the tibia has to be removed to control the osteomyelitis. If so, then would need to proceed to a left AKA. At the time of the wound closure surgery, it would be done under general anesthesia and tourniquet control with a surgical observation overnight stay in the hospital. A drain will be placed for several days. Tissue and bone will be sent to Pathology for analysis to rule out carcinoma and to evaluate for osteomyelitis. Tissue and bone will be sent to Microbiology for culture. A positive culture may necessitate antibiotic modification. After healing has occurred and the swelling is controlled with a stump cake press operator, then he can be evaluated with his [employer] for revision of his prosthesis. Patient was informed of the risks and complications of the procedure including alternatives to surgery. These were discussed with the patient personally. Patient voices understanding and wishes to proceed with the current plan of HBO treatments for the osteomyelitis followed by operative intervention and followed by HBO treatments after surgery. With his Coumadin usage for his PE, will admit a couple of days prior to surgery to start him on IV Heparin coverage and stop the Coumadin. After surgery will resume the Coumadin and he will be discharged from the hospital when his INR has reached the proper level. Once the INR has been normalized, can then stop the IV Heparin.
--- NOTE | 2018-04-03 18:01 | PCM.PROGNOTE ---
Subjective: 52 year old male s/p left BKA done in 2014 for ischemic leg who uses prosthesis, with a hx of PAD, non-ischemic cardiomyopathy, HTN, DVT and PE, medication noncompliance, former smoker, who presents to the hospital for surgical debridement of left BKA stump. He has been having severe pain and discharge from the stump lately to the point where he can no longer use his prosthetic leg. He denies fevers and chills. He states he has not recently been on abx. He is on coumadin for DVT/PE, his PCP notes he is noncompliant. He was on IV abx earlier this year and had DVT/PE possibly from the PICC line and is now on coumadin for this. He plans to undergo an excisional debridement with Dr. Massey, possible plan to do AKA at some point depending how extensive the underlying osteomyeltitis is. There are no recent cultures in [facility]. - Physical Exam General: Alert, Oriented x3, Cooperative HEENT: Atraumatic, PERRLA, EOMI, Normocephalic Neck: Supple, No JVD, Negative Carotid Bruits Lungs: Clear to auscultation, Normal air movement Cardiovascular: Regular rate, No murmurs Abdomen: Bowel Sounds Present, Soft, Non Tender Extremities: No edema, Capillary Refill Less than 3 Seconds Skin: No rashes, No breakdown Musculoskeletal: No Tenderness to Palpation of Joints or Extremities, - - left stump BKA nonhealing. no surrounding erythema. Neurological: Cranial nerves II-XII grossly intact Psych/Mental Status: Normal Affect, Appropriate Vital Signs Temp Pulse Resp BP Pulse Ox 98.3 F 98 18 135/95 H 98 04/03/18 17:00 04/03/18 17:00 04/03/18 17:00 04/03/18 17:00 04/03/18 17:00 Oxygen Delivery Method Room Air Weight: 191 lb Body Mass Index (BMI) 24.5 Laboratory Tests Past 24 Hrs 04/03/18 04/03/18 04/03/18 12:30 12:30 12:30 WBC 10.0 RBC 4.36 L Hgb 13.7 Hct 40.7 MCV 93.3 MCH 31.4 MCHC 33.7 RDW 15.6 H RDW Differential 52.9 H Plt Count 294 MPV 9.2 PT 24.0 H INR 2.1 APTT 41.9 H Sodium 135 L Potassium 4.0 Chloride 103 Carbon Dioxide 24.0 Anion Gap 8 BUN 14 Creatinine 1.31 H Estim Creat Clear Calc 76.69 Est GFR (MDRD) Af Amer 74 Est GFR (MDRD) Non-Af 61 BUN/Creatinine Ratio 10.7 Glucose 54 L Calcium 8.6 Total Bilirubin 0.50 AST 28 ALT 38 Alkaline Phosphatase 95 Total Protein 8.4 H Albumin 3.8 Globulin 4.6 H Albumin/Globulin Ratio 0.8 L Prealbumin 31.2 Medical Necessity - Tobacco Use Smoking Status: Former smoker Assessment/Plan All Active Problems (Last Updated 02/21/18 @ 10:20 by Stella Zamora) Thrush, oral (Acute) Cellulitis (Acute) History of blood clots (Acute) Amputation, traumatic, leg (Acute) Limb weakness (Acute) Difficulty balancing (Acute) Chest pain (Acute) Migraines (Acute) Fatigue (Acute) SOB (shortness of breath) (Acute) Infection caused by Enterobacter cloacae (Acute) MSSA (methicillin susceptible Staphylococcus aureus) infection (Acute) Left foot pain (Acute) Left foot swelling (Acute) Left 3rd toe drainage (Acute) 1. Osteomyelitis and nonhealing stump ulcer L bka - to surgery with Dr. Massey when appropriate. On IV Vanco, flagyl, and levaquin. Need deep cultures. No fever or leukocytosis. obtain mrsa/mssa pcr. CXR neg with PICC in distal SVC. Will need assisted IV abx. 2. PAD - leading to above initial issues and nonhealing wounds + infections. 3. DVT/PE - coumadin. possibly initially 2/2 PICC line. Plan to start heparin and dc coumadin, restart coumadin post op and bridge. 4. CKDIII - stable 5. Nonischemic cardiomyopathy - no blockage on last cath, EF 35%. continue peace, coreg. 6. HTN - stable 7. HLD - statin DVT ppx: coumadin/heparin Thank you for the opportunity to participate in the care of this patient. This patient was seen by Francesco Elias PA-C under the supervision of Dr. Villalobos.
[2018-04-03] MEDS: Gabapentin 600 MG Tablet 1800 MG PO (18:20)
[2018-04-03] MEDS: HYDROmorphone 1 MG/ML Syringe IV (18:24)
[2018-04-03] MEDS: Ondansetron 4 MG/2 ML Vial IV (18:25)
[2018-04-03] MEDS: proMETHazine 25 MG Tablet PO (20:01)
[2018-04-03] MEDS: Atorvastatin Calcium 40 MG Tablet PO (22:30)
[2018-04-03] MEDS: Docusate Sodium 100 MG Capsule PO (22:30)
[2018-04-03 22:50] VITALS: BP 109/93; PULSE 69; RESP 16; TEMP 36.4; O2SAT 99
[2018-04-04] MEDS: oxyCODONE 5 MG Tablet 10 MG PO ×3 (01:08→20:44)
[2018-04-04 02:00] VITALS: BP 151/92; PULSE 82; RESP 16; TEMP 36.4; O2SAT 100
[2018-04-04] MEDS: 0.9% NaCl Peripheral Flush Adult/Peds IV (06:15)
[2018-04-04 06:21] LABS: International Normalized Ratio 2.3; Prothrombin Time (Protime)PT. 25.2 SECONDS (11.7-14.9)
[2018-04-04 06:38] LABS: Anion Gap 8 (5-15); BUN 16 mg/dL (7-18); BUN/Creat Ratio 11.5 RATIO (10-20); Calcium,Total 8.4 mg/dL (8.5-10.1); Chloride 105 mmol/L (98-107); Creatinine, Serum 1.39 mg/dL (0.70-1.30); EST Glomerular Filtration Rate 57 mL/min (>60); Est Glom Filt Rate - Afr Amer 69 mL/min (>60); Estimated Creatinine Clearance 72.28 ml/min; Glucose 98 mg/dL (74-106); Potassium 4.3 mmol/L (3.5-5.1); Sodium Level 137 mmol/L (136-145)
[2018-04-04 08:18] VITALS: BP 155/103; PULSE 97; RESP 18; TEMP 36.6; O2SAT 100
[2018-04-04] MEDS: Gabapentin 600 MG Tablet 1800 MG PO ×2 (08:20→17:23)
[2018-04-04] MEDS: Lisinopril 20 MG Tablet PO (08:21)
[2018-04-04] MEDS: levoFLOXacin IV 500 MG/100 ML BAG 100 MG IV (08:21)
[2018-04-04] MEDS: Carvedilol 12.5 MG Tablet PO (08:21)
[2018-04-04] MEDS: Docusate Sodium 100 MG Capsule PO ×2 (08:21→22:04)
[2018-04-04] MEDS: HYDROmorphone 1 MG/ML Syringe IV ×3 (08:26→22:10)
--- NOTE | 2018-04-04 08:42 | PN_ITS ---
Subjective: Patient is a 52-year-old male with multiple comorbidities including left BKA presented suspected osteomyelitis involving the stump. Patient was admitted by Dr. Massey with plans for patient to undergo excisional debridement. Hospitalist service was consulted to assist with management of patient medical comorbidities Objective: GENERAL: cooperative HEENT: Atraumatic; moist oral mucosa EYES; Anicteric, Normal Conjunctiva NECK; supple, normal thyroid, no distended JVD. RESPIRATORY: Diminished to auscultation bilaterally, CARDIOVASCULAR: Regular S1 S2, no audible murmurs GI: soft, non-tender, normoactive bowel sounds, : No Renal angle tenderness; EXTREMITIES: Left BKA with edema around the stump no open wound MUSCULOSKELETAL: No Joint Tenderness; no muscle waisting NEURO: Awake; no lateralizing signs. SKIN: No Rash PSYCH; Normal affect Vitals/I&O's: Vital Signs Temp Pulse Resp BP Pulse Ox 97.9 F 97 18 155/103 H 100 04/04/18 08:18 04/04/18 08:18 04/04/18 08:18 04/04/18 08:18 04/04/18 08:18 Oxygen Delivery Method Room Air Weight: 86.636 kg Body Mass Index (BMI) 24.5 Intake and Output for Last 24 Hours 04/02/18 04/03/18 04/04/18 23:59 23:59 23:59 Intake Total 620 / 620 2044 / 2044 Output Total 400 / 400 750 / 750 Balance 220 / 220 1294 / 1294 Laboratory Results 04/03/18 12:30: WBC 10.0, RBC 4.36 L, Hgb 13.7, Hct 40.7, MCV 93.3, MCH 31.4, MCHC 33.7, RDW 15.6 H, RDW Differential 52.9 H, Plt Count 294, MPV 9.2 04/03/18 12:30: PT 24.0 H, INR 2.1, APTT 41.9 H 04/03/18 12:30: Sodium 135 L, Potassium 4.0, Chloride 103, Carbon Dioxide 24.0, Anion Gap 8, BUN 14, Creatinine 1.31 H, Estim Creat Clear Calc 76.69, Est GFR (MDRD) Af Amer 74, Est GFR (MDRD) Non-Af 61, BUN/Creatinine Ratio 10.7, Glucose 54 L, Calcium 8.6, Total Bilirubin 0.50, AST 28, ALT 38, Alkaline Phosphatase 95, Total Protein 8.4 H, Albumin 3.8, Globulin 4.6 H, Albumin/Globulin Ratio 0.8 L, Prealbumin 31.2 04/04/18 06:00: PT 25.2 H, INR 2.3 04/04/18 06:00: Sodium 137, Potassium 4.3, Chloride 105, Carbon Dioxide 24.0, Anion Gap 8, BUN 16, Creatinine 1.39 H, Estim Creat Clear Calc 72.28, Est GFR (MDRD) Af Amer 69, Est GFR (MDRD) Non-Af 57 L, BUN/Creatinine Ratio 11.5, Glucose 98, Calcium 8.4 L Current Medications Atorvastatin Calcium (Lipitor) 40 mg PO QHS [facility] Last Admin: 04/03/18 22:30 Dose: 40 mg Carvedilol (Coreg) 12.5 mg PO DAILY [facility] Last Admin: 04/04/18 08:21 Dose: 12.5 mg Docusate Sodium (Colace) 100 mg PO BID [facility] Last Admin: 04/04/18 08:21 Dose: 100 mg Gabapentin (Neurontin) 1,800 mg PO BIDCM [facility] Last Admin: 04/04/18 08:20 Dose: 1,800 mg Hydromorphone HCl (Dilaudid Inj) 1 mg IV Q4H PRN PRN PRN Reason: SEVERE PAIN (6-1010) Last Admin: 04/04/18 08:26 Dose: 1 mg Levofloxacin (Levaquin Iv) 500 mg in 100 mls @ 100 mls/hr IV Q24 [facility] Last Admin: 04/04/18 08:21 Dose: 100 mls/hr Lactated Ringer's () 1,000 mls @ 60 mls/hr IV .[id number] [facility] Last Admin: 04/03/18 16:55 Dose: 60 mls/hr Metronidazole (Flagyl) 500 mg in 100 mls @ 100 mls/hr IV Q8 [facility] Last Admin: 04/04/18 06:13 Dose: 100 mls/hr Vancomycin IV Pharmacy to Dose (1 ea/ Sodium Chloride) 500 mls @ 250 mls/hr IV X1 PRN; Protocol PRN Reason: Rx to Dose Vancomycin HCl 1,250 mg/ (Sodium Chloride) 275 mls @ 167 mls/hr IV Q12H [facility] Last Admin: 04/03/18 22:31 Dose: 167 mls/hr Sodium Chloride () 250 mls @ 15 mls/hr IV .[id number] PRN PRN Reason: SALINE FLUSH Lisinopril (Zestril) 20 mg PO DAILY [facility] Last Admin: 04/04/18 08:21 Dose: 20 mg Ondansetron HCl (Zofran) 4 mg IV Q6H PRN PRN PRN Reason: NAUSEA Last Admin: 04/03/18 18:25 Dose: 4 mg Oxycodone HCl (Oxyir) 10 mg PO Q4H PRN PRN PRN Reason: SEVERE PAIN (6-10/10) Last Admin: 04/04/18 01:08 Dose: 10 mg Promethazine HCl (Phenergan Tablet) 25 mg PO Q4H PRN PRN PRN Reason: NAUSEA/VOMITING Last Admin: 04/03/18 20:01 Dose: 25 mg Sodium Chloride () 5 - 30 ml IV UD PRN PRN Reason: SALINE FLUSH Last Admin: 04/04/18 06:15 Dose: 30 ml Medical Necessity - Tobacco Use Smoking Status: Former smoker Assessment/Plan All Active Problems (Last Updated 02/21/18 @ 10:20 by Stella Zamora) Thrush, oral (Acute) Cellulitis (Acute) History of blood clots (Acute) Amputation, traumatic, leg (Acute) Limb weakness (Acute) Difficulty balancing (Acute) Chest pain (Acute) Migraines (Acute) Fatigue (Acute) SOB (shortness of breath) (Acute) Infection caused by Enterobacter cloacae (Acute) MSSA (methicillin susceptible Staphylococcus aureus) infection (Acute) Left foot pain (Acute) Left foot swelling (Acute) Left 3rd toe drainage (Acute) Patient is a 52-year-old male with multiple comorbidities including left BKA presented suspected osteomyelitis involving the stump. Patient was admitted by Dr. Massey with plans for patient to undergo excisional debridement. Hospitalist service was consulted to assist with management of patient medical comorbidities Hospitalist service was consulted to assist with management of patient medical comorbidities 1. Suspected days involving the left BKA stump. Admitted to regular nursing floor with plans for patient undergo excisional debridement by Dr. Penaloza on 04/05/2018 patient was started on Levaquin and vancomycin on admission 2. Essential hypertension-blood pressure controlled, home medications continued with dose adjustment as needed 3. Dyslipidemia-patient is on statin therapy, continued at home dose 4. History of previous DVT and PE patient is on Coumadin was 2.1 on admission 2.3 as of 04/04/2018. Plan is to hold the Coumadin and start systemic anticoagulation with heparin 5. Peripheral arterial disease 6. Renal failure do suspect acute renal failure possibly from dehydration baseline creatinine a year prior to his admission was within normal limits 7. DVT prophylaxis patient is on systemic 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 with Coumadin no need for additional measures. Active Medications Atorvastatin Calcium (Lipitor) 40 mg PO QHS [facility] Last Admin: 04/03/18 22:30 Dose: 40 mg Carvedilol (Coreg) 12.5 mg PO DAILY [facility] Last Admin: 04/04/18 08:21 Dose: 12.5 mg Docusate Sodium (Colace) 100 mg PO BID [facility] Last Admin: 04/04/18 08:21 Dose: 100 mg Gabapentin (Neurontin) 1,800 mg PO BIDCM [facility] Last Admin: 04/04/18 08:20 Dose: 1,800 mg Hydromorphone HCl (Dilaudid Inj) 1 mg IV Q4H PRN PRN PRN Reason: SEVERE PAIN (6-10) Last Admin: 04/04/18 08:26 Dose: 1 mg Levofloxacin (Levaquin Iv) 500 mg in 100 mls @ 100 mls/hr IV Q24 [facility] Last Admin: 04/04/18 08:21 Dose: 100 mls/hr Lactated Ringer's () 1,000 mls @ 60 mls/hr IV .[id number] [facility] Last Admin: 04/03/18 16:55 Dose: 60 mls/hr Metronidazole (Flagyl) 500 mg in 100 mls @ 100 mls/hr IV Q8 [facility] Last Admin: 04/04/18 06:13 Dose: 100 mls/hr Vancomycin IV Pharmacy to Dose (1 ea/ Sodium Chloride) 500 mls @ 250 mls/hr IV X1 PRN; Protocol PRN Reason: Rx to Dose Vancomycin HCl 1,250 mg/ (Sodium Chloride) 275 mls @ 167 mls/hr IV Q12H [facility] Last Admin: 04/03/18 22:31 Dose: 167 mls/hr Sodium Chloride () 250 mls @ 15 mls/hr IV .[id number] PRN PRN Reason: SALINE FLUSH Lisinopril (Zestril) 20 mg PO DAILY [facility] Last Admin: 04/04/18 08:21 Dose: 20 mg Ondansetron HCl (Zofran) 4 mg IV Q6H PRN PRN PRN Reason: NAUSEA Last Admin: 04/03/18 18:25 Dose: 4 mg Oxycodone HCl (Oxyir) 10 mg PO Q4H PRN PRN PRN Reason: SEVERE PAIN (6-1010) Last Admin: 04/04/18 01:08 Dose: 10 mg Promethazine HCl (Phenergan Tablet) 25 mg PO Q4H PRN PRN PRN Reason: NAUSEA/VOMITING Last Admin: 04/03/18 20:01 Dose: 25 mg Sodium Chloride () 5 - 30 ml IV UD PRN PRN Reason: SALINE FLUSH Last Admin: 04/04/18 06:15 Dose: 30 ml Code Visit Inpatient E&M: [id number] [facility] Hosp L3
--- NOTE | 2018-04-04 12:07 | CASEMGMT ---
DARSHAN [place] NOTE: Call placed to [facility] to inquire about financials/benefits. Ksenia from [facility] states pt's antibiotics will be covered @ 100%. Gina PATEL RN CM
--- NOTE | 2018-04-04 12:37 | CASEMGMT ---
DARSHAN [place] NOTE: Call placed to [facility] for HHC agency to be arranged. Spoke to Elham. Informed her that pt will need HHC: [facility] for both IV antibiotics and also Wound Vac care. Faxed the following clinical information to [facility]. [facility] order for [facility]: Wound Vac and IV antibiotics, PICC insertion documentation, H/P, Demographics sheet, and copy of Insurance card. Elham also made aware that this RN CM will not be available tomorrow for follow-up. Provided her with DARSHAN Lea's work number. DGiaubart CASTRON DARSHAN [place]
[2018-04-04 14:06] VITALS: BP 141/88; PULSE 79; RESP 18; TEMP 36.4; O2SAT 95
[2018-04-04 15:04] LABS: Partial Thromboplast Time 42.2 Seconds (24.1-36.2)
[2018-04-04] MEDS: HEPARIN/D5w 25,000 UNITS 25,000 UNITS/250 ML IV.SOLN. 12 UNITS IV (15:17)
[2018-04-04] MEDS: Lactated Ringers 1,000 ML 60 ML IV (17:25)
--- NOTE | 2018-04-04 18:59 | PN.SURG_ITS ---
Subjective: Patient is resting comfortably. 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 No axillary adenopathy. Radial pulses are palpable. Femoral pulses are palpable. On the left BKA stump anteriorly over the tibial bone is scar tissue with ulceration from a recent fall. Patient states it heals with scar tissue and then breaks open. Tenderness to palpation. No drainage expressed. No evidence of cellulitis, fluctuance, or purulent drainage. The length of the tibia from the anterior tibial tubercle is 12 cm. Neurological: Cranial nerves II-XII grossly intact Psych/Mental Status: Normal Affect, Appropriate Vital Signs Temp Pulse Resp BP Pulse Ox 97.6 F L 79 18 141/88 H 95 04/04/18 14:06 04/04/18 14:06 04/04/18 14:06 04/04/18 14:06 04/04/18 14:06 Oxygen Delivery Method Room Air Weight: 190 lb 14.725 oz Body Mass Index (BMI) 24.5 Intake and Output for Last 24 Hours 04/02/18 04/03/18 04/04/18 23:59 23:59 23:59 Intake Total 620 / 620 3776 / 3776 Output Total 400 / 400 2150 / 2150 Balance 220 / 220 1626 / 1626 Laboratory Tests Past 24 Hrs 04/04/18 04/04/18 04/04/18 06:00 06:00 14:40 PT 25.2 H INR 2.3 APTT 42.2 H Sodium 137 Potassium 4.3 Chloride 105 Carbon Dioxide 24.0 Anion Gap 8 BUN 16 Creatinine 1.39 H Estim Creat Clear Calc 72.28 Est GFR (MDRD) Af Amer 69 Est GFR (MDRD) Non-Af 57 L BUN/Creatinine Ratio 11.5 Glucose 98 Calcium 8.4 L Medical Necessity - Tobacco Use Smoking Status: Former smoker Assessment/Plan All Active Problems (Last Updated 02/21/18 @ 10:20 by Stella Zamora) Thrush, oral (Acute) Cellulitis (Acute) History of blood clots (Acute) Amputation, traumatic, leg (Acute) Limb weakness (Acute) Difficulty balancing (Acute) Chest pain (Acute) Migraines (Acute) Fatigue (Acute) SOB (shortness of breath) (Acute) Infection caused by Enterobacter cloacae (Acute) MSSA (methicillin susceptible Staphylococcus aureus) infection (Acute) Left foot pain (Acute) Left foot swelling (Acute) Left 3rd toe drainage (Acute) 1. Nonhealing ulcer left BKA stump. 2. Pain left BKA stump. 3. 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 4. 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 MRI from Sep, 2017 reviewed. Findings consistent with osteomyelitis. With his history of osteomyelitis, he would benefit from HBO treatments. Tried to do treatments before operative intervention. Had trouble getting the medical approval, so will do treatments after surgery to help the healing process. Recommend operative intervention with initial surgical preparation of the left BKA stump with excisional debridement of the nonhealing ulcer with partial ostectomy tibia for osteomyelitis. Would leave the wound open and proceed with the VAC or with daily Silver dressing changes. Will send bone to Pathology for analysis to evaluate for osteomyelitis and to Microbiology for culture. Previous cultures are unknown in [place] and patient thinks it may be MRSA. He is currently on Vancomycin, Levaquin, and Flagyl. A positive culture may necessitate antibiotic modification. 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 With his history of infection, I anticipate at least 1-2 weeks of IV antibiotics and will have a PICC line placed. Prior to revision of the amputation stump with readvancement of the muscle flap and partial ostectomy and secondary wound closure, will need Pathology report that is negative for osteomyelitis. Depending on the severity of the osteomyelitis and the proximal extent of the osteomyelitis, I may not be able to revise the left BKA stump if too much of the tibia has to be removed to control the osteomyelitis. If so, then would need to proceed to a left AKA. At the time of the wound closure surgery, it would be done under general anesthesia and tourniquet control with a surgical observation overnight stay in the hospital. A drain will be placed for several days. Tissue and bone will be sent to Pathology for analysis to rule out carcinoma and to evaluate for osteomyelitis. Tissue and bone will be sent to Microbiology for culture. A positive culture may necessitate antibiotic modification. After healing has occurred and the swelling is controlled with a stump meat carrier, then he can be evaluated with his [employer] for revision of his prosthesis. Patient was informed of the risks and complications of the procedure including alternatives to surgery. These were discussed with the patient personally. Patient voices understanding and wishes to proceed with the current plan of HBO treatments for the osteomyelitis followed by operative intervention and followed by HBO treatments after surgery. With his Coumadin usage for his PE, he was admitted ahead of time, and he was started on IV Heparin coverage and the Coumadin was stopped. His INR this morning was 2.3. After surgery will resume the Coumadin and he will be discharged from the hospital when his INR has reached the proper level. Once the INR has been normalized, can then stop the IV Heparin. The Hospitalist group has been consulted for medical management. He is scheduled for the operative debridement and partial ostectomy tibia for osteomyelitis.
[2018-04-04 21:52] LABS: Partial Thromboplast Time 107.8 Seconds (24.1-36.2)
[2018-04-04 22:02] VITALS: BP 139/89; PULSE 87; RESP 18; TEMP 36.6; O2SAT 97
[2018-04-04] MEDS: Atorvastatin Calcium 40 MG Tablet PO (22:04)
[2018-04-04 22:10] VITALS: PULSE 87; RESP 18; O2SAT 97
[2018-04-04 22:48] LABS: Vancomycin, Trough Level 19.4 ug/mL (5.0-15.0)
[2018-04-05] VITALS (16 sets, daily range): BP systolic 105–149; BP diastolic 68–98; PULSE 77–108; RESP 16–20; TEMP 36.5–37.1; O2SAT 94–100
[2018-04-05] MEDS: oxyCODONE 5 MG Tablet 10 MG PO ×2 (02:56→23:35)
[2018-04-05 04:06] LABS: Absolute Lymphocyte Count 2.47 X10^3/ul (0.83-4.51); Absolute Neutrophil Count 3.4 X10^3/uL (2.0-7.7); Basophil# 0.05 X10^3/uL; Basophil% 0.7 % (0-1); Eosinophils% 8.4 % (0-5); Hematocrit 34.8 % (40-54); Hemoglobin 11.6 g/dl (13.0-16.5); Lymphocyte # 2.47 X10^3/ul (4.0); Lymphocyte % 34.5 % (19-41); Mean Corp Hgb Conc 33.3 g/gl (32-36); Mean Corpuscular Volume 96.1 fL (80-94); Mean Platelet Vol. 9.1 fl (6.2-12.0); Monocyte# 0.65 X10^3/uL; Monocyte% 9.1 % (0-10); Neutrophil # 3.37 X10^3/uL (2.7-7.7); Neutrophil % 47.2 % (47-70); Platelet Count 235 K/mm3 (150-450); RBC Distribution Width CV 14.9 % (11.6-14.6); Red Blood Count 3.62 M/mm3 (4.6-6.2); White Blood Count 7.2 K/mm3 (4.4-11.0)
[2018-04-05 04:07] LABS: POSITIVE COUNT NO; POSITIVE DIFFERENTIAL NO; POSITIVE MORPHOLOGY NO
[2018-04-05 04:12] LABS: Partial Thromboplast Time 71.1 Seconds (24.1-36.2)
[2018-04-05 04:16] LABS: Anion Gap 7 (5-15); BUN 15 mg/dL (7-18); BUN/Creat Ratio 10.4 RATIO (10-20); Calcium,Total 8.2 mg/dL (8.5-10.1); Chloride 105 mmol/L (98-107); Creatinine, Serum 1.44 mg/dL (0.70-1.30); EST Glomerular Filtration Rate 55 mL/min (>60); Est Glom Filt Rate - Afr Amer 66 mL/min (>60); Estimated Creatinine Clearance 69.77 ml/min; Glucose 86 mg/dL (74-106); Potassium 4.2 mmol/L (3.5-5.1); Sodium Level 139 mmol/L (136-145)
[2018-04-05 04:31] LABS: International Normalized Ratio 2.1; Prothrombin Time (Protime)PT. 23.9 SECONDS (11.7-14.9)
[2018-04-05] MEDS: HYDROmorphone 1 MG/ML Syringe IV ×3 (06:26→22:23)
--- NOTE | 2018-04-05 06:36 | PCM.RX.CS ---
Consult Pharmacy has been consulted to manage selected antiobiotic: Vancomycin Type of Consult: Follow-up Labs: Sodium 139 mmol/L (136-145) 04/05/18 03:56 Potassium 4.2 mmol/L (3.5-5.1) 04/05/18 03:56 Chloride 105 mmol/L (98-107) 04/05/18 03:56 Carbon Dioxide 27.0 mmol/L (21.0-32.0) 04/05/18 03:56 Anion Gap 7 (5-15) 04/05/18 03:56 BUN 15 mg/dL (7-18) 04/05/18 03:56 Creatinine 1.44 mg/dL (0.70-1.30) H 04/05/18 03:56 Est GFR (MDRD) Af Amer 66 mL/min (>60) 04/05/18 03:56 Est GFR (MDRD) Non-Af 55 mL/min (>60) L 04/05/18 03:56 BUN/Creatinine Ratio 10.4 RATIO (10-20) 04/05/18 03:56 Glucose 86 mg/dL (74-106) 04/05/18 03:56 Vancomycin Trough 19.4 ug/mL (5.0-15.0) H 04/04/18 21:30 Goal Trough: 15-20 mcg/mL Pharmacy Plan for Drug Dosing: Pharmacy Service will continue to monitor and adjust dosing as required. TROUGH 19.4 IN RANGE NO CHANGES AT THIS TIME Follow-Up Labs: Trough Vancomycin Labs to be done on [date and time ordered]: 04/08 @ 4162
--- NOTE | 2018-04-05 07:39 | PCM.PN.HOSP ---
Subjective: Seen scheduled to undergo segment of suspected left BKA stump Objective: GENERAL: cooperative HEENT: Atraumatic; moist oral mucosa EYES; Anicteric, Normal Conjunctiva NECK; supple, normal thyroid, no distended JVD. RESPIRATORY: Diminished to auscultation bilaterally, CARDIOVASCULAR: Regular S1 S2, no audible murmurs GI: soft, non-tender, normoactive bowel sounds, : No Renal angle tenderness; EXTREMITIES: Left BKA with edema around the stump no open wound MUSCULOSKELETAL: No Joint Tenderness; no muscle waisting NEURO: Awake; no lateralizing signs. SKIN: No Rash PSYCH; Normal affect Vitals/I&O's: Vital Signs Temp Pulse Resp BP Pulse Ox 97.7 F L 85 18 117/77 100 04/05/18 02:55 04/05/18 02:58 04/05/18 02:55 04/05/18 02:55 04/05/18 02:55 Oxygen Delivery Method Room Air Weight: 86.6 kg Body Mass Index (BMI) 24.5 Intake and Output for Last 24 Hours 04/03/18 04/04/18 04/05/18 23:59 23:59 23:59 Intake Total 620 / 620 3776 / 3776 2907 / 2907 Output Total 400 / 400 2150 / 2150 2850 / 2850 Balance 220 / 220 1626 / 1626 57 / 57 Laboratory Results 04/04/18 14:40: APTT 42.2 H 04/04/18 21:30: Vancomycin Trough 19.4 H 04/04/18 21:30: APTT 107.8 H* 04/05/18 03:56: APTT 71.1 H 04/05/18 03:56: WBC 7.2, RBC 3.62 L, Hgb 11.6 L, Hct 34.8 L, MCV 96.1 H, MCH 32.0, MCHC 33.3, RDW 14.9 H, RDW Differential 49.0 H, Plt Count 235, MPV 9.1, Immature Gran % (Auto) 0.100, Neut % (Auto) 47.2, Lymph % (Auto) 34.5, [place] % (Auto) 9.1, Eos % (Auto) 8.4 H, Baso % (Auto) 0.7, Absolute Neuts (auto) 3.4, Absolute Lymphs (auto) 2.47, Total Counted Not Reportable 04/05/18 03:56: PT 23.9 H, INR 2.1 04/05/18 03:56: Sodium 139, Potassium 4.2, Chloride 105, Carbon Dioxide 27.0, Anion Gap 7, BUN 15, Creatinine 1.44 H, Estim Creat Clear Calc 69.77, Est GFR (MDRD) Af Amer 66, Est GFR (MDRD) Non-Af 55 L, BUN/Creatinine Ratio 10.4, Glucose 86, Calcium 8.2 L Current Medications Atorvastatin Calcium (Lipitor) 40 mg PO QHS [facility] Last Admin: 04/04/18 22:04 Dose: 40 mg Carvedilol (Coreg) 12.5 mg PO DAILY [facility] Last Admin: 04/04/18 08:21 Dose: 12.5 mg Docusate Sodium (Colace) 100 mg PO BID [facility] Last Admin: 04/04/18 22:04 Dose: 100 mg Gabapentin (Neurontin) 1,800 mg PO BIDCM [facility] Last Admin: 04/04/18 17:23 Dose: 1,800 mg Heparin Sodium (Porcine) (Heparin Na) 0 unit IV UD PRN; Protocol Hydromorphone HCl (Dilaudid Inj) 1 mg IV Q4H PRN PRN PRN Reason: SEVERE PAIN (6-03/07) Last Admin: 04/05/18 06:26 Dose: 1 mg Levofloxacin (Levaquin Iv) 500 mg in 100 mls @ 100 mls/hr IV Q24 [facility] Last Admin: 04/04/18 08:21 Dose: 100 mls/hr Lactated Ringer's () 1,000 mls @ 60 mls/hr IV .[id number] [facility] Last Admin: 04/04/18 17:25 Dose: 60 mls/hr Metronidazole (Flagyl) 500 mg in 100 mls @ 100 mls/hr IV Q8 [facility] Last Admin: 04/05/18 06:21 Dose: 100 mls/hr Vancomycin IV Pharmacy to Dose (1 ea/ Sodium Chloride) 500 mls @ 250 mls/hr IV X1 PRN; Protocol PRN Reason: Rx to Dose Vancomycin HCl 1,250 mg/ (Sodium Chloride) 275 mls @ 167 mls/hr IV Q12H [facility] Last Admin: 04/04/18 22:04 Dose: 167 mls/hr Sodium Chloride () 250 mls @ 15 mls/hr IV .[id number] PRN PRN Reason: SALINE FLUSH Heparin Sodium/Dextrose () 25,000 units in 250 mls @ 12 mls/hr IV .[id number] [facility]; Protocol Last Admin: 04/04/18 15:17 Dose: 12 mls/hr Lisinopril (Zestril) 20 mg PO DAILY [facility] Last Admin: 04/04/18 08:21 Dose: 20 mg Ondansetron HCl (Zofran) 4 mg IV Q6H PRN PRN PRN Reason: NAUSEA Last Admin: 04/03/18 18:25 Dose: 4 mg Oxycodone HCl (Oxyir) 10 mg PO Q4H PRN PRN PRN Reason: SEVERE PAIN (6-10/10) Last Admin: 04/05/18 02:56 Dose: 10 mg Promethazine HCl (Phenergan Tablet) 25 mg PO Q4H PRN PRN PRN Reason: NAUSEA/VOMITING Last Admin: 04/03/18 20:01 Dose: 25 mg Sodium Chloride () 5 - 30 ml IV UD PRN PRN Reason: SALINE FLUSH Last Admin: 04/04/18 06:15 Dose: 30 ml Medical Necessity - Tobacco Use Smoking Status: Former smoker Assessment/Plan All Active Problems (Last Updated 02/21/18 @ 10:20 by Stella Zamora) Thrush, oral (Acute) Cellulitis (Acute) History of blood clots (Acute) Amputation, traumatic, leg (Acute) Limb weakness (Acute) Difficulty balancing (Acute) Chest pain (Acute) Migraines (Acute) Fatigue (Acute) SOB (shortness of breath) (Acute) Infection caused by Enterobacter cloacae (Acute) MSSA (methicillin susceptible Staphylococcus aureus) infection (Acute) Left foot pain (Acute) Left foot swelling (Acute) Left 3rd toe drainage (Acute) Patient is a 52-year-old male with multiple comorbidities including left BKA presented suspected osteomyelitis involving the stump. Patient was admitted by Dr. Massey with plans for patient to undergo excisional debridement. Hospitalist service was consulted to assist with management of patient medical comorbidities Hospitalist service was consulted to assist with management of patient medical comorbidities 1. Suspected days involving the left BKA stump. Admitted to regular nursing floor with plans for patient undergo excisional debridement by Dr. Penaloza on 04/05/2018 patient was started on Levaquin and vancomycin on admission Patient is on Coumadin for previous DVT and PE Coumadin was held bridged with heparin; patient's INR is 2.1 as of the morning of 04/05/2018 2. Essential hypertension-blood pressure controlled, home medications continued with dose adjustment as needed 3. Dyslipidemia-patient is on statin therapy, continued at home dose 4. History of previous DVT and PE patient is on Coumadin was 2.1 on admission 2.3 as of 04/04/2018. Plan is to hold the Coumadin and start systemic anticoagulation with heparin 5. Peripheral arterial disease 6. Renal failure do suspect acute renal failure possibly from dehydration baseline creatinine a year prior to his admission was within normal limits 7. DVT prophylaxis patient is on systemic 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 with Coumadin no need for additional measures. Active Medications Atorvastatin Calcium (Lipitor) 40 mg PO QHS [facility] Last Admin: 04/03/18 22:30 Dose: 40 mg Carvedilol (Coreg) 12.5 mg PO DAILY [facility] Last Admin: 04/04/18 08:21 Dose: 12.5 mg Docusate Sodium (Colace) 100 mg PO BID [facility] Last Admin: 04/04/18 08:21 Dose: 100 mg Gabapentin (Neurontin) 1,800 mg PO BIDCM [facility] Last Admin: 04/04/18 08:20 Dose: 1,800 mg Hydromorphone HCl (Dilaudid Inj) 1 mg IV Q4H PRN PRN PRN Reason: SEVERE PAIN (6-10/10) Last Admin: 04/04/18 08:26 Dose: 1 mg Levofloxacin (Levaquin Iv) 500 mg in 100 mls @ 100 mls/hr IV Q24 [facility] Last Admin: 04/04/18 08:21 Dose: 100 mls/hr Lactated Ringer's () 1,000 mls @ 60 mls/hr IV .[id number] [facility] Last Admin: 04/03/18 16:55 Dose: 60 mls/hr Metronidazole (Flagyl) 500 mg in 100 mls @ 100 mls/hr IV Q8 [facility] Last Admin: 04/04/18 06:13 Dose: 100 mls/hr Vancomycin IV Pharmacy to Dose (1 ea/ Sodium Chloride) 500 mls @ 250 mls/hr IV X1 PRN; Protocol PRN Reason: Rx to Dose Vancomycin HCl 1,250 mg/ (Sodium Chloride) 275 mls @ 167 mls/hr IV Q12H [facility] Last Admin: 04/03/18 22:31 Dose: 167 mls/hr Sodium Chloride () 250 mls @ 15 mls/hr IV .[id number] PRN PRN Reason: SALINE FLUSH Lisinopril (Zestril) 20 mg PO DAILY [facility] Last Admin: 04/04/18 08:21 Dose: 20 mg Ondansetron HCl (Zofran) 4 mg IV Q6H PRN PRN PRN Reason: NAUSEA Last Admin: 04/03/18 18:25 Dose: 4 mg Oxycodone HCl (Oxyir) 10 mg PO Q4H PRN PRN PRN Reason: SEVERE PAIN (6-10/10) Last Admin: 04/04/18 01:08 Dose: 10 mg Promethazine HCl (Phenergan Tablet) 25 mg PO Q4H PRN PRN PRN Reason: NAUSEA/VOMITING Last Admin: 04/03/18 20:01 Dose: 25 mg Sodium Chloride () 5 - 30 ml IV UD PRN PRN Reason: SALINE FLUSH Last Admin: 04/04/18 06:15 Dose: 30 ml Code Visit Inpatient E&M: 51651 Subs Hosp L2
--- NOTE | 2018-04-05 07:42 | PN_ITS ---
Subjective: Seen scheduled to undergo segment of suspected left BKA stump Objective: GENERAL: cooperative HEENT: Atraumatic; moist oral mucosa EYES; Anicteric, Normal Conjunctiva NECK; supple, normal thyroid, no distended JVD. RESPIRATORY: Diminished to auscultation bilaterally, CARDIOVASCULAR: Regular S1 S2, no audible murmurs GI: soft, non-tender, normoactive bowel sounds, : No Renal angle tenderness; EXTREMITIES: Left BKA with edema around the stump no open wound MUSCULOSKELETAL: No Joint Tenderness; no muscle waisting NEURO: Awake; no lateralizing signs. SKIN: No Rash PSYCH; Normal affect Vitals/I&O's: Vital Signs Temp Pulse Resp BP Pulse Ox 97.7 F L 85 18 117/77 100 04/05/18 02:55 04/05/18 02:58 04/05/18 02:55 04/05/18 02:55 04/05/18 02:55 Oxygen Delivery Method Room Air Weight: 86.6 kg Body Mass Index (BMI) 24.5 Intake and Output for Last 24 Hours 04/03/18 04/04/18 04/05/18 23:59 23:59 23:59 Intake Total 620 / 620 3776 / 3776 2907 / 2907 Output Total 400 / 400 2150 / 2150 2850 / 2850 Balance 220 / 220 1626 / 1626 57 / 57 Laboratory Results 04/04/18 14:40: APTT 42.2 H 04/04/18 21:30: Vancomycin Trough 19.4 H 04/04/18 21:30: APTT 107.8 H* 04/05/18 03:56: APTT 71.1 H 04/05/18 03:56: WBC 7.2, RBC 3.62 L, Hgb 11.6 L, Hct 34.8 L, MCV 96.1 H, MCH 32.0, MCHC 33.3, RDW 14.9 H, RDW Differential 49.0 H, Plt Count 235, MPV 9.1, Immature Gran % (Auto) 0.100, Neut % (Auto) 47.2, Lymph % (Auto) 34.5, [place] % (Auto) 9.1, Eos % (Auto) 8.4 H, Baso % (Auto) 0.7, Absolute Neuts (auto) 3.4, Absolute Lymphs (auto) 2.47, Total Counted Not Reportable 04/05/18 03:56: PT 23.9 H, INR 2.1 04/05/18 03:56: Sodium 139, Potassium 4.2, Chloride 105, Carbon Dioxide 27.0, Anion Gap 7, BUN 15, Creatinine 1.44 H, Estim Creat Clear Calc 69.77, Est GFR (MDRD) Af Amer 66, Est GFR (MDRD) Non-Af 55 L, BUN/Creatinine Ratio 10.4, Glucose 86, Calcium 8.2 L Current Medications Atorvastatin Calcium (Lipitor) 40 mg PO QHS [facility] Last Admin: 04/04/18 22:04 Dose: 40 mg Carvedilol (Coreg) 12.5 mg PO DAILY [facility] Last Admin: 04/04/18 08:21 Dose: 12.5 mg Docusate Sodium (Colace) 100 mg PO BID [facility] Last Admin: 04/04/18 22:04 Dose: 100 mg Gabapentin (Neurontin) 1,800 mg PO BIDCM [facility] Last Admin: 04/04/18 17:23 Dose: 1,800 mg Heparin Sodium (Porcine) (Heparin Na) 0 unit IV UD PRN; Protocol Hydromorphone HCl (Dilaudid Inj) 1 mg IV Q4H PRN PRN PRN Reason: SEVERE PAIN (6-03/07) Last Admin: 04/05/18 06:26 Dose: 1 mg Levofloxacin (Levaquin Iv) 500 mg in 100 mls @ 100 mls/hr IV Q24 [facility] Last Admin: 04/04/18 08:21 Dose: 100 mls/hr Lactated Ringer's () 1,000 mls @ 60 mls/hr IV .[id number] [facility] Last Admin: 04/04/18 17:25 Dose: 60 mls/hr Metronidazole (Flagyl) 500 mg in 100 mls @ 100 mls/hr IV Q8 [facility] Last Admin: 04/05/18 06:21 Dose: 100 mls/hr Vancomycin IV Pharmacy to Dose (1 ea/ Sodium Chloride) 500 mls @ 250 mls/hr IV X1 PRN; Protocol PRN Reason: Rx to Dose Vancomycin HCl 1,250 mg/ (Sodium Chloride) 275 mls @ 167 mls/hr IV Q12H [facility] Last Admin: 04/04/18 22:04 Dose: 167 mls/hr Sodium Chloride () 250 mls @ 15 mls/hr IV .[id number] PRN PRN Reason: SALINE FLUSH Heparin Sodium/Dextrose () 25,000 units in 250 mls @ 12 mls/hr IV .[id number] [facility]; Protocol Last Admin: 04/04/18 15:17 Dose: 12 mls/hr Lisinopril (Zestril) 20 mg PO DAILY [facility] Last Admin: 04/04/18 08:21 Dose: 20 mg Ondansetron HCl (Zofran) 4 mg IV Q6H PRN PRN PRN Reason: NAUSEA Last Admin: 04/03/18 18:25 Dose: 4 mg Oxycodone HCl (Oxyir) 10 mg PO Q4H PRN PRN PRN Reason: SEVERE PAIN (6-10/10) Last Admin: 04/05/18 02:56 Dose: 10 mg Promethazine HCl (Phenergan Tablet) 25 mg PO Q4H PRN PRN PRN Reason: NAUSEA/VOMITING Last Admin: 04/03/18 20:01 Dose: 25 mg Sodium Chloride () 5 - 30 ml IV UD PRN PRN Reason: SALINE FLUSH Last Admin: 04/04/18 06:15 Dose: 30 ml Medical Necessity - Tobacco Use Smoking Status: Former smoker Assessment/Plan All Active Problems (Last Updated 02/21/18 @ 10:20 by Stella Zamora) Thrush, oral (Acute) Cellulitis (Acute) History of blood clots (Acute) Amputation, traumatic, leg (Acute) Limb weakness (Acute) Difficulty balancing (Acute) Chest pain (Acute) Migraines (Acute) Fatigue (Acute) SOB (shortness of breath) (Acute) Infection caused by Enterobacter cloacae (Acute) MSSA (methicillin susceptible Staphylococcus aureus) infection (Acute) Left foot pain (Acute) Left foot swelling (Acute) Left 3rd toe drainage (Acute) Patient is a 52-year-old male with multiple comorbidities including left BKA presented suspected osteomyelitis involving the stump. Patient was admitted by Dr. Massey with plans for patient to undergo excisional debridement. Hospitalist service was consulted to assist with management of patient medical comorbidities Hospitalist service was consulted to assist with management of patient medical comorbidities 1. Suspected days involving the left BKA stump. Admitted to regular nursing floor with plans for patient undergo excisional debridement by Dr. Penaolza on 04/05/2018 patient was started on Levaquin and vancomycin on admission Patient is on Coumadin for previous DVT and PE Coumadin was held bridged with heparin; patient's INR is 2.1 as of the morning of 04/05/2018 2. Essential hypertension-blood pressure controlled, home medications continued with dose adjustment as needed 3. Dyslipidemia-patient is on statin therapy, continued at home dose 4. History of previous DVT and PE patient is on Coumadin was 2.1 on admission 2.3 as of 04/04/2018. Plan is to hold the Coumadin and start systemic anticoagulation with heparin 5. Peripheral arterial disease 6. Renal failure do suspect acute renal failure possibly from dehydration baseline creatinine a year prior to his admission was within normal limits 7. DVT prophylaxis patient is on systemic 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 with Coumadin no need for additional measures. Active Medications Atorvastatin Calcium (Lipitor) 40 mg PO QHS [facility] Last Admin: 04/03/18 22:30 Dose: 40 mg Carvedilol (Coreg) 12.5 mg PO DAILY [facility] Last Admin: 04/04/18 08:21 Dose: 12.5 mg Docusate Sodium (Colace) 100 mg PO BID [facility] Last Admin: 04/04/18 08:21 Dose: 100 mg Gabapentin (Neurontin) 1,800 mg PO BIDCM [facility] Last Admin: 04/04/18 08:20 Dose: 1,800 mg Hydromorphone HCl (Dilaudid Inj) 1 mg IV Q4H PRN PRN PRN Reason: SEVERE PAIN (6-10/10) Last Admin: 04/04/18 08:26 Dose: 1 mg Levofloxacin (Levaquin Iv) 500 mg in 100 mls @ 100 mls/hr IV Q24 [facility] Last Admin: 04/04/18 08:21 Dose: 100 mls/hr Lactated Ringer's () 1,000 mls @ 60 mls/hr IV .[id number] [facility] Last Admin: 04/03/18 16:55 Dose: 60 mls/hr Metronidazole (Flagyl) 500 mg in 100 mls @ 100 mls/hr IV Q8 [facility] Last Admin: 04/04/18 06:13 Dose: 100 mls/hr Vancomycin IV Pharmacy to Dose (1 ea/ Sodium Chloride) 500 mls @ 250 mls/hr IV X1 PRN; Protocol PRN Reason: Rx to Dose Vancomycin HCl 1,250 mg/ (Sodium Chloride) 275 mls @ 167 mls/hr IV Q12H [facility] Last Admin: 04/03/18 22:31 Dose: 167 mls/hr Sodium Chloride () 250 mls @ 15 mls/hr IV .[id number] PRN PRN Reason: SALINE FLUSH Lisinopril (Zestril) 20 mg PO DAILY [facility] Last Admin: 04/04/18 08:21 Dose: 20 mg Ondansetron HCl (Zofran) 4 mg IV Q6H PRN PRN PRN Reason: NAUSEA Last Admin: 04/03/18 18:25 Dose: 4 mg Oxycodone HCl (Oxyir) 10 mg PO Q4H PRN PRN PRN Reason: SEVERE PAIN (6-10/10) Last Admin: 04/04/18 01:08 Dose: 10 mg Promethazine HCl (Phenergan Tablet) 25 mg PO Q4H PRN PRN PRN Reason: NAUSEA/VOMITING Last Admin: 04/03/18 20:01 Dose: 25 mg Sodium Chloride () 5 - 30 ml IV UD PRN PRN Reason: SALINE FLUSH Last Admin: 04/04/18 06:15 Dose: 30 ml Code Visit Inpatient E&M: 42386 Subs Hosp L2
[2018-04-05] MEDS: levoFLOXacin IV 500 MG/100 ML BAG 100 MG IV (07:47)
[2018-04-05] MEDS: Gabapentin 600 MG Tablet 1800 MG PO ×2 (07:48→17:40)
[2018-04-05] MEDS: Lisinopril 20 MG Tablet PO (07:48)
[2018-04-05] MEDS: Docusate Sodium 100 MG Capsule PO ×2 (07:48→22:24)
[2018-04-05] MEDS: Carvedilol 12.5 MG Tablet PO (07:48)
--- NOTE | 2018-04-05 08:19 | NURSING ---
Call placed to [facility] and report given to Shannon SEXTON whom will be taking over care for pt, informed that pt is currently being brought to [facility] to prepare for surgery with dr yepez
[2018-04-05 09:25] LABS: Prothrombin Time (Protime)PT. 22.4 SECONDS (11.7-14.9)
[2018-04-05 09:26] LABS: Partial Thromboplast Time 44.5 Seconds (24.1-36.2)
--- NOTE | 2018-04-05 09:30 | BON_PTH ---
PATIENT: JANIE CHIN LOC: MS2 U#:[id number] AGE/SX: 52/M ROOM: [facility] RE04/03/[address]: Dr. Gustavo Baird MD : 1965 BED: 1 DIS: 04/12/2018 SPEC #: [id number] RECD: 04/06/18 09:01 STATUS: DAVID REMichael #: [id number] NICK: 04/05/18 09:[address]: Francois Massey DEPT: SURGICAL PATHOLOGY RECD BY: Palmer Ruelas ENTERED: 04/06/18 09:29 SP TYPE: Bone OTHR DR: MD Dr. Abundio Sharpe MD Daniel Manz, MD Dr. Efewongbe Oleghe, MD Harriet Jakob, MD Dr. James A Slaby, MD Mohamud Mohamed, MD Dr. Nicholas F Kotsonis, MD Pramod Nepal, MD Tissues: A - Tibia, NOS B - ULCER Procedures: Decalcification bone/plaque Surgery Specimen Level III Surgery Specimen Level IV Comments: @ Ordering doctor for DEC edited from to @ by FRED at 04/06/18 1359 @ Ordering doctor for SUIII edited from to @ by FRED at 04/06/18 1359 @ Ordering doctor for SUIV edited from to @ by FRED at 04/06/18 1359 @ Submitting doctor edited from to DR.JSLABY Peralta by FRED at 04/06/18 1359 HEADER OPERATION: Surgical preparation left BKA stump with incision and drainage PRE-OP DIAGNOSIS: Nonhealing ulcer left BKA stump; pain left BKA stump; 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 Debrided tibia bone, left below the knee amputation stump, biopsy: Bone with reparative and reactive change. No evidence of osteomyelitis. B. Nonhealing ulcer left below the knee amputation stump, excision. Skin and soft tissue consistent with ulcer and associated reactive change and inflammation. Minute fragments of bone with no pathologic change. AM:jessie 04/09/18 COMMENT B. There is no evidence of acute osteomyelitis. MICROSCOPIC DESCRIPTION Slides are reviewed. GROSS DESCRIPTION A. Received is one container labeled with the patient name and designated debrided tibial bone left BKA stump. The specimen consists of multiple pieces of bone and soft tissue that in aggregate measure 5 x 3 x 0.3 cm. The specimen is totally submitted in two cassettes after decalcification. B. Received is one container labeled with the patient name and designated nonhealing ulcer left BKA stump. The specimen consists of three variable sized pieces of skin and soft tissue that in aggregate measure 2.5 x 2.5 x 1 cm. The entire specimen is submitted in two cassettes. / EMILY:jessie 04/06/18 TC: 3 CPT: 02183 x2, 38080 x1
--- NOTE | 2018-04-05 11:02 | PCM.IMDPSTOP ---
Immediate Post-Op Note Date of Procedure: 04/05/18 Primary Surgeon/Physician: Francois Massey piercer operator: None Pre-Operative Diagnosis: 1. Nonhealing ulcer left BKA stump. 2. Pain left BKA stump. 3. 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 4. 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 5. 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 Post-Operative Diagnosis: Same. Surgery/Procedure Performed:: 1. Surgical preparation left BKA stump with incision and drainage and excisional debridement nonhealing infected ulcer. 2. Partial ostectomy tibia for osteomyelitis. Description of Surgical Findings:: 52 year old man presents with complaints of pain in his left BKA stump. 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 He had a nonhealing ulcer anteriorly over the bone that is presently healed. He was recently admitted to [facility] for IV antibiotics because of this ulceration and underlying osteomyelitis. He had an MRI done on 10/21/17 which showed osteomyelitis. During his IV antibiotic therapy, he developed a blood clot and PE. He is now on Coumadin. Because of the pain in his stump, he is unable to use his prosthesis. Today he denies any fever. He denies any recent trauma. There has been some issues getting HBO approval before the surgery. So he presents today to start IV antibiotics and to start IV Heparin and stop the Coumadin in preparation for operative debridement of his amputation stump. Today the patient underwent surgical preparation left BKA stump with incision and drainage and excisional debridement nonhealing infected ulcer and partial ostectomy tibia for osteomyelitis. Size of defect left BKA stump wound - 6 x 4 x 1 cm. I used Damián absorbable hemostat. Reference Number - [id number]. Lot Number - [id number]. Expiration - November 23, 2022. Estimated Blood Loss: 50 ml. Specimen's removed: 1. Nonhealing ulcer left BKA stump soft tissue to Pathology and Microbiology. 2. Nonhealing ulcer left BKA stump tibial bone to Pathology and Microbiology. 3. MRSA Wound DNA by PCR. Drains: None. Type of Anesthesia:: General - Admit VTE Documentation VTE Present on Admission: No - Patient is on Coumadin for PE. VTE Mechan Device Prophylaxis: SCD's VTE Pharm Prophylaxis ordered?: Yes
--- NOTE | 2018-04-05 11:10 | OP.PN_ITS ---
Immediate Post-Op Note Date of Procedure: 04/05/18 Primary Surgeon/Physician: Francois Massey road repairer: None Pre-Operative Diagnosis: 1. Nonhealing ulcer left BKA stump. 2. Pain left BKA stump. 3. 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 4. 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 5. [facility] use of anticoagulation. Post-Operative Diagnosis: Same. Surgery/Procedure Performed:: 1. Surgical preparation left BKA stump with incision and drainage and excisional debridement nonhealing infected ulcer. 2. Partial ostectomy tibia for osteomyelitis. Description of Surgical Findings:: 52 year old man presents with complaints of pain in his left BKA stump. 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 He had a nonhealing ulcer anteriorly over the bone that is presently healed. He was recently admitted to [facility] for IV antibiotics because of this ulceration and underlying osteomyelitis. He had an MRI done on 10/21/17 which showed osteomyelitis. During his IV antibiotic therapy, he developed a blood clot and PE. He is now on Coumadin. Because of the pain in his stump, he is unable to use his prosthesis. Today he denies any fever. He denies any recent trauma. There has been some issues getting HBO approval before the surgery. So he presents today to start IV antibiotics and to start IV Heparin and stop the Coumadin in preparation for operative debridement of his amputation stump. Today the patient underwent surgical preparation left BKA stump with incision and drainage and excisional debridement nonhealing infected ulcer and partial ostectomy tibia for osteomyelitis. Size of defect left BKA stump wound - 6 x 4 x 1 cm. I used Damián absorbable hemostat. Reference Number - [id number]. Lot Number - [id number]. Expiration - November 23, 2022. Estimated Blood Loss: 50 ml. Specimen's removed: 1. Nonhealing ulcer left BKA stump soft tissue to Pathology and Microbiology. 2. Nonhealing ulcer left BKA stump tibial bone to Pathology and Microbiology. 3. MRSA Wound DNA by PCR. Drains: None. Type of Anesthesia:: General - Admit VTE Documentation VTE Present on Admission: No - Patient is on Coumadin for PE. VTE Mechan Device Prophylaxis: SCD's VTE Pharm Prophylaxis ordered?: Yes
--- NOTE | 2018-04-05 11:11 | CASEMGMT ---
Addendum entered by Quinten Lea 04/05/18 14:55: Call received from Elham @ [facility]. Ph: . They have clinical information for IV infusion set up. Will need script faxed when available. Original Note: Addendum entered by Quinten Lea 04/05/18 11:50: DARSHAN WINCHESTER spoke with Dr. Massey re: anticipated DC date. Pt has cultures pending, will need Coumadin restarted and final IV antibiotic determined prior to dc. Anticipated DC Date: Monday. Original Note: -DARSHAN WINCHESTER Note: Call to [facility] to verify fax information was received. Spoke with roll operator who could verify that pt is in their system. Requested call back from assigned rep to discuss case. Mio ASTORGA -Call to Home Health Intake @ [facility]. Referral given for need for Home Health for IV antibiotics and wound vac care on discharge. Anticipated dc date given as Monday, April 09, 2018. Mio ASTORGA
[2018-04-05] MEDS: Lactated Ringers 1,000 ML 60 ML IV (12:11)
[2018-04-05 13:29] LABS: M R Staph aureus DNA By PCR Negative (Negative); Probe Check PASS; Specimen Processing Control PASS; Staph aureus DNA By PCR NEGATIVE (Negative)
--- NOTE | 2018-04-05 15:48 | OP.PCM_ITS ---
Report of Operation Date of Procedure: 04/05/18 Pre-Operative Diagnosis: 1. Nonhealing ulcer left BKA stump. 2. Pain left BKA stump. 3. 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 4. 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 5. [facility] use of anticoagulation. Post-Operative Diagnosis: Same. Surgery/Procedure Performed:: 1. Surgical preparation left BKA stump with incision and drainage and excisional debridement nonhealing infected ulcer. 2. Partial ostectomy tibia for osteomyelitis. Description of Surgical Findings:: 52 year old man presents with complaints of pain in his left BKA stump. 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 He had a nonhealing ulcer anteriorly over the bone that is presently healed. He was recently admitted to [facility] for IV antibiotics because of this ulceration and underlying osteomyelitis. He had an MRI done on 10/21/17 which showed osteomyelitis. During his IV antibiotic therapy, he developed a blood clot and PE. He is now on Coumadin. Because of the pain in his stump, he is unable to use his prosthesis. Today he denies any fever. He denies any recent trauma. There has been some issues getting HBO approval before the surgery. So he was admitted to the hospital to start IV antibiotics and to start IV Heparin and stop the Coumadin in preparation for operative debridement of his amputation stump. Patient was informed of the risks and complications of the procedure including alternatives to surgery. These were discussed with the patient personally. Patient voices understanding and wishes to proceed. Size of defect left BKA stump wound - 6 x 4 x 1 cm. I used Damián absorbable hemostat. Reference Number - [id number]. Lot Number - [id number]. Expiration - November 23, 2022. swage tender: None Type of Anesthesia:: General Specimen's removed: 1. Nonhealing ulcer left BKA stump soft tissue to Pathology and Microbiology. 2. Nonhealing ulcer left BKA stump tibial bone to Pathology and Microbiology. 3. MRSA Wound DNA by PCR. Drains: None. Estimated Blood Loss (mL): 50 ml. Description of Procedure: Patient was taken to OR in supine position and was placed under general anesthesia. The left BKA stump was prepped and draped in the usual fashion. SCD was placed on the right leg for DVT prophylaxis. Perioperative antibiotics were given intravenously. A tourniquet was placed on his upper thigh. Will use if there is a lot of bleeding. Using xylocaine with epinephrine, the left BKA stump ulcer was infiltrated. After waiting 5 minutes for the anesthetic to take effect, I proceeded with surgical preparation of the left BKA stump with an incision and drainage down into the subcutaneous tissue. Pus was seen in the wound. There was a sinus tract down to the tibial bone. The sinus tract was excised and debrided. The skin around the purulent ulcer was excised and debrided. There was some abnormal scar tissue present that was excised. I took a periosteal elevator and freed up the end of the tibia. There were a lot of bony spicules located on the inferior aspect of the bone. One spicule was quite sharp and pointed and could easily explain why the patient was having so much pain with his prosthesis. The bony spicules were excised with a rongeur. Using an oscillating saw, a partial ostectomy was performed to smooth out the inferior aspect of the tibial bone. The distance from the anterior tibial tubercle to the end of the stump was 10 cm. A rasp was used to smooth out the bony edges. I also beveled the anterior aspect of the bony edge as well. Half the bone and half the soft tissue were sent to Pathology for analysis to rule out carcinoma and osteomyelitis and to Microbiology for culture. A positive culture may necessitate antibiotic modification. An MRSA Wound DNA by PCR was also done. The wound was irrigated with saline. Hemostasis was obtained with elec trocautery. I then sprayed Damián absorbable hemostat into the wound to help minimize seroma formation. The size of the defect left BKA stump after the incision and drainage and excisional debridement was 6 x 4 x 1 cm. The wound was then packed with Mepitel nonadherent dressing followed by Kerlix gauze and Betadine followed by dry Kerlix gauze and ABD pads followed by compression ALIZE wrap. Patient tolerated the procedure well and was sent to PACU in satisfactory condition. Patient will be sent upstairs for continued postop care. Will continue the Heparin drip and restart his Coumadin. He will continue his IV antibiotics postoperatively. Grafts/Implants Used: None. - Complications None. - Admit VTE Documentation VTE Present on Admission: No - Patient is on Coumadin for PE. VTE Mechan Device Prophylaxis: SCD's VTE Pharm Prophylaxis ordered?: Yes Code Visit Surgery Charges CPT - 89672 ICD-10 - T87.39, M86.662, Z89.512, Z79.01, Z87.891 83026 M86.662, T87.39, Z89.512, Z79.01, Z87.891
[2018-04-05 17:48] LABS: Absolute Lymphocyte Count 1.71 X10^3/ul (0.83-4.51); Basophil# 0.04 X10^3/uL; Basophil% 0.6 % (0-1); Eosinophil# 0.38 X10^3/uL; Eosinophils% 5.8 % (0-5); Hematocrit 33.7 % (40-54); Hemoglobin 11.1 g/dl (13.0-16.5); Lymphocyte # 1.71 X10^3/ul (4.0); Lymphocyte % 26.1 % (19-41); Mean Corp Hgb Conc 32.9 g/gl (32-36); Mean Corpuscular Hgb 31.6 pg (27.0-32.0); Mean Platelet Vol. 9.5 fl (6.2-12.0); Monocyte# 0.44 X10^3/uL; Monocyte% 6.7 % (0-10); Neutrophil # 3.97 X10^3/uL (2.7-7.7); Neutrophil % 60.6 % (47-70); Platelet Count 215 K/mm3 (150-450); RBC Distribution Width CV 15.3 % (11.6-14.6); RBC Distribution Width SD 53.2 fl (35.1-43.9); Red Blood Count 3.51 M/mm3 (4.6-6.2); White Blood Count 6.6 K/mm3 (4.4-11.0)
[2018-04-05 17:53] LABS: International Normalized Ratio 1.8; Prothrombin Time (Protime)PT. 21.3 SECONDS (11.7-14.9)
[2018-04-05 17:54] LABS: Partial Thromboplast Time 37.7 Seconds (24.1-36.2)
[2018-04-05 17:56] LABS: Anion Gap 6 (5-15); BUN 12 mg/dL (7-18); BUN/Creat Ratio 8.6 RATIO (10-20); Calcium,Total 8.2 mg/dL (8.5-10.1); Chloride 103 mmol/L (98-107); EST Glomerular Filtration Rate 56 mL/min (>60); Est Glom Filt Rate - Afr Amer 68 mL/min (>60); Estimated Creatinine Clearance 71.76 ml/min; Glucose 110 mg/dL (74-106); Potassium 4.1 mmol/L (3.5-5.1); Sodium Level 136 mmol/L (136-145)
[2018-04-05] MEDS: HEPARIN/D5w 25,000 UNITS 25,000 UNITS/250 ML IV.SOLN. 12 UNITS IV (18:13)
[2018-04-05 18:15] LABS: POSITIVE COUNT NO; POSITIVE DIFFERENTIAL NO; POSITIVE MORPHOLOGY NO
[2018-04-05] MEDS: Atorvastatin Calcium 40 MG Tablet PO (22:24)
[2018-04-05] MEDS: 0.9% NaCl IVPB Med Flush (250 mL) 15 ML IV (22:24)
[2018-04-05] MEDS: 0.9% NaCl Peripheral Flush Adult/Peds IV (22:27)
[2018-04-06 00:30] LABS: Partial Thromboplast Time 90.4 Seconds (24.1-36.2)
[2018-04-06 02:29] VITALS: BP 122/78; PULSE 88; RESP 18; TEMP 36.8; O2SAT 97
[2018-04-06] MEDS: HYDROmorphone 1 MG/ML Syringe IV ×5 (02:31→20:39)
[2018-04-06] MEDS: Lactated Ringers 1,000 ML 60 ML IV (02:33)
[2018-04-06 02:41] VITALS: PULSE 88
--- NOTE | 2018-04-06 03:02 | NURSING ---
Called lab to have to have them change time from aPTT from 0600 to 0640 on 04/06, because Heparin drip was changed from 12ml/hr to 11ml/hr at 0040 and it needs to be drawn 6 hours after change was made.
[2018-04-06] MEDS: oxyCODONE 5 MG Tablet 10 MG PO ×4 (04:26→22:29)
[2018-04-06 06:58] LABS: Hematocrit 33.1 % (40-54); Hemoglobin 10.9 g/dl (13.0-16.5); Mean Corp Hgb Conc 32.9 g/gl (32-36); Mean Corpuscular Hgb 31.8 pg (27.0-32.0); Mean Corpuscular Volume 96.5 fL (80-94); Mean Platelet Vol. 9.3 fl (6.2-12.0); Platelet Count 209 K/mm3 (150-450); RBC Distribution Width CV 14.9 % (11.6-14.6); RBC Distribution Width SD 49.8 fl (35.1-43.9); Red Blood Count 3.43 M/mm3 (4.6-6.2); White Blood Count 7.4 K/mm3 (4.4-11.0)
[2018-04-06 07:00] LABS: Scan Indicated on CBC? Y/N NO
[2018-04-06 07:07] LABS: International Normalized Ratio 1.7; Prothrombin Time (Protime)PT. 20.4 SECONDS (11.7-14.9)
[2018-04-06 07:09] LABS: Partial Thromboplast Time 102.3 Seconds (24.1-36.2)
[2018-04-06 07:10] LABS: Anion Gap 8 (5-15); BUN 10 mg/dL (7-18); BUN/Creat Ratio 7.9 RATIO (10-20); Calcium,Total 8.6 mg/dL (8.5-10.1); Chloride 104 mmol/L (98-107); Creatinine, Serum 1.27 mg/dL (0.70-1.30); EST Glomerular Filtration Rate 63 mL/min (>60); Est Glom Filt Rate - Afr Amer 76 mL/min (>60); Estimated Creatinine Clearance 79.11 ml/min; Glucose 104 mg/dL (74-106); Potassium 4.2 mmol/L (3.5-5.1); Sodium Level 139 mmol/L (136-145)
[2018-04-06 08:03] VITALS: BP 138/80; PULSE 88; RESP 18; TEMP 36.8; O2SAT 98
[2018-04-06] MEDS: Gabapentin 600 MG Tablet 1800 MG PO ×2 (08:07→16:26)
[2018-04-06] MEDS: Docusate Sodium 100 MG Capsule PO (08:08)
[2018-04-06] MEDS: Carvedilol 12.5 MG Tablet PO (08:08)
--- NOTE | 2018-04-06 08:14 | PN_ITS ---
Subjective: Patient underwent surgical preparation left BKA stump with incision and drainage and excisional debridement nonhealing infected ulcer; Partial ostectomy tibia for osteomyelitis by Dr. Massey on 04/05/2018 04/06/2018: Patient seen complains of insomnia. His INR this a.m. is 1.7 started Coumadin at his usual home dose patient is scheduled to undergo wound VAC placement Objective: GENERAL: cooperative HEENT: Atraumatic; moist oral mucosa EYES; Anicteric, Normal Conjunctiva NECK; supple, normal thyroid, no distended JVD. RESPIRATORY: Diminished to auscultation bilaterally, CARDIOVASCULAR: Regular S1 S2, no audible murmurs GI: soft, non-tender, normoactive bowel sounds, : No Renal angle tenderness; EXTREMITIES: Left BKA with surgical dressing on MUSCULOSKELETAL: No Joint Tenderness; no muscle waisting NEURO: Awake; no lateralizing signs. SKIN: No Rash PSYCH; Normal affect Vitals/I&O's: Vital Signs Temp Pulse Resp BP Pulse Ox 98.3 F 88 18 138/80 H 98 04/06/18 08:03 04/06/18 08:03 04/06/18 08:03 04/06/18 08:03 04/06/18 08:03 Oxygen Delivery Method Room Air Weight: 86.183 kg Body Mass Index (BMI) 24.5 Intake and Output for Last 24 Hours 04/04/18 04/05/18 04/06/18 23:59 23:59 23:59 Intake Total 3776 / 3776 5723 / 5723 2324 / 2324 Output Total 2150 / 2150 4400 / 4400 1950 / 1950 Balance 1626 / 1626 1323 / 1323 374 / 374 Microbiology Past 72 Hours 04/05/18 11:00 Tissue Ulcer - Leg Gram Stain - Final 04/05/18 11:00 Bone - Leg, Left Gram Stain - Final Laboratory Results 04/05/18 08:35: PT 22.4 H, INR 2.0, APTT 44.5 H 04/05/18 11:00: S.aureus Protein A PCR NEGATIVE, MRSA (PCR) Negative 04/05/18 11:00: S.aureus Protein A PCR NEGATIVE, MRSA (PCR) Negative 04/05/18 17:25: WBC 6.6, RBC 3.51 L, Hgb 11.1 L, Hct 33.7 L, MCV 96.0 H, MCH 31.6, MCHC 32.9, RDW 15.3 H, RDW Differential 53.2 H, Plt Count 215, MPV 9.5, Immature Gran % (Auto) 0.200, Neut % (Auto) 60.6, Lymph % (Auto) 26.1, [place] % (Auto) 6.7, Eos % (Auto) 5.8 H, Baso % (Auto) 0.6, Absolute Neuts (auto) 4.0, Absolute Lymphs (auto) 1.71, Total Counted Not Reportable 04/05/18 17:25: PT 21.3 H, INR 1.8, APTT 37.7 H 04/05/18 17:25: Sodium 136, Potassium 4.1, Chloride 103, Carbon Dioxide 27.0, Anion Gap 6, BUN 12, Creatinine 1.40 H, Estim Creat Clear Calc 71.76, Est GFR (MDRD) Af Amer 68, Est GFR (MDRD) Non-Af 56 L, BUN/Creatinine Ratio 8.6 L, Glucose 110 H, Calcium 8.2 L 04/06/18 00:04: APTT 90.4 H* 04/06/18 06:43: WBC 7.4, RBC 3.43 L, Hgb 10.9 L, Hct 33.1 L, MCV 96.5 H, MCH 31.8, MCHC 32.9, RDW 14.9 H, RDW Differential 49.8 H, Plt Count 209, MPV 9.3 04/06/18 06:43: PT 20.4 H, INR 1.7, APTT 102.3 H* 04/06/18 06:43: Sodium 139, Potassium 4.2, Chloride 104, Carbon Dioxide 27.0, Anion Gap 8, BUN 10, Creatinine 1.27, Estim Creat Clear Calc 79.11, Est GFR (MDRD) Af Amer 76, Est GFR (MDRD) Non-Af 63, BUN/Creatinine Ratio 7.9 L, Glucose 104, Calcium 8.6 Current Medications Atorvastatin Calcium (Lipitor) 40 mg PO QHS [facility] Last Admin: 04/05/18 22:24 Dose: 40 mg Carvedilol (Coreg) 12.5 mg PO DAILY [facility] Last Admin: 04/06/18 08:08 Dose: 12.5 mg Docusate Sodium (Colace) 100 mg PO BID [facility] Last Admin: 04/06/18 08:08 Dose: 100 mg [facility] Admin: 04/06/18 08:07 Dose: 1,800 mg Heparin Sodium (Porcine) (Heparin Na) 0 unit IV UD PRN; Protocol Hydromorphone HCl (Dilaudid Inj) 1 mg IV Q4H PRN PRN PRN Reason: SEVERE PAIN (6-03/07) Last Admin: 04/06/18 06:31 Dose: 1 mg Levofloxacin (Levaquin Iv) 500 mg in 100 mls @ 100 mls/hr IV Q24 [facility] Last Admin: 04/05/18 07:47 Dose: 100 mls/hr Lactated Ringer's () 1,000 mls @ 60 mls/hr IV .[id number] [facility] Last Admin: 04/06/18 02:33 Dose: 60 mls/hr Metronidazole (Flagyl) 500 mg in 100 mls @ 100 mls/hr IV Q8 [facility] Last Admin: 04/06/18 06:31 Dose: 100 mls/hr Vancomycin IV Pharmacy to Dose (1 ea/ Sodium Chloride) 500 mls @ 250 mls/hr IV X1 PRN; Protocol PRN Reason: Rx to Dose Vancomycin HCl 1,250 mg/ (Sodium Chloride) 275 mls @ 167 mls/hr IV Q12H [facility] Last Admin: 04/05/18 22:24 Dose: 167 mls/hr Sodium Chloride () 250 mls @ 15 mls/hr IV .[id number] PRN PRN Reason: SALINE FLUSH Last Admin: 04/05/18 22:24 Dose: 15 mls/hr Heparin Sodium/Dextrose () 25,000 units in 250 mls @ 12 mls/hr IV .[id number] [facility]; Protocol Last Admin: 04/05/18 18:13 Dose: 12 mls/hr Lisinopril (Zestril) 20 mg PO DAILY [facility] Last Admin: 04/05/18 07:48 Dose: 20 mg Ondansetron HCl (Zofran) 4 mg IV Q6H PRN PRN PRN Reason: NAUSEA Last Admin: 04/03/18 18:25 Dose: 4 mg Oxycodone HCl (Oxyir) 10 mg PO Q4H PRN PRN PRN Reason: SEVERE PAIN (6-10/10) Last Admin: 04/06/18 04:26 Dose: 10 mg Promethazine HCl (Phenergan Tablet) 25 mg PO Q4H PRN PRN PRN Reason: NAUSEA/VOMITING Last Admin: 04/03/18 20:01 Dose: 25 mg Sodium Chloride () 5 - 30 ml IV UD PRN PRN Reason: SALINE FLUSH Last Admin: 04/05/18 22:27 Dose: 10 ml Warfarin Sodium (Coumadin (Pbkc)) 3 mg PO DAILY ERIKA; Protocol Medical Necessity - Tobacco Use Smoking Status: Former smoker Assessment/Plan All Active Problems (Last Updated 02/21/18 @ 10:20 by Stella Zamora) Thrush, oral (Acute) Cellulitis (Acute) History of blood clots (Acute) Amputation, traumatic, leg (Acute) Limb weakness (Acute) Difficulty balancing (Acute) Chest pain (Acute) Migraines (Acute) Fatigue (Acute) SOB (shortness of breath) (Acute) Infection caused by Enterobacter cloacae (Acute) MSSA (methicillin susceptible Staphylococcus aureus) infection (Acute) Left foot pain (Acute) Left foot swelling (Acute) Left 3rd toe drainage (Acute) Patient is a 52-year-old male with multiple comorbidities including left BKA presented suspected osteomyelitis involving the stump. Patient was admitted by Dr. Massey with plans for patient to undergo excisional debridement. Hospitalist service was consulted to assist with management of patient medical comorbidities Hospitalist service was consulted to assist with management of patient medical comorbidities 1. Suspected days involving the left BKA stump. Admitted to regular nursing floor with plans for patient undergo excisional debridement by Dr. Penaloza on 04/05/2018 patient was started on Levaquin and vancomycin on admission. Patient underwent surgical preparation left BKA stump with incision and drainage and excisional debridement nonhealing infected ulcer; Partial ostectomy tibia for osteomyelitis by Dr. Massey on 04/05/2018 line is for patient undergo wound VAC placement on 04/06/2018 Patient is on Coumadin for previous DVT and PE Coumadin was held bridged with heparin; patient's INR is 2.1 as of the morning of 04/05/2018. Chou resumed on the morning of 04/06/2018 2. Essential hypertension-blood pressure controlled, home medications continued with dose adjustment as needed 3. Dyslipidemia-patient is on statin therapy, continued at home dose 4. History of previous DVT and PE patient is on Coumadin was 2.1 on admission 2.3 as of 04/04/2018. Plan is to hold the Coumadin and start systemic anticoagulation with heparin 5. Peripheral arterial disease 6. Renal failure do suspect acute renal failure possibly from dehydration baseline creatinine a year prior to his admission was within normal limits 7. DVT prophylaxis patient is on systemic 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 with Coumadin no need for additional measures. Code Visit Inpatient E&M: 21062 Subs Hosp L2
[2018-04-06] MEDS: levoFLOXacin IV 500 MG/100 ML BAG 100 MG IV (08:55)
--- NOTE | 2018-04-06 09:39 | NURSING ---
wound photo: left stump
--- NOTE | 2018-04-06 09:43 | CASEMGMT ---
DARSHAN WINCHESTER Note: call received yesterday late afternoon and this am from rep @ [facility] that they are working on home health for pt. No agency has accepted yet. DARSHAN WINCHESTER reviewed demographics and reiterated that Home Care is for IV antibiotic infusion and wound vac care. iMo PATEL RN ACM
[2018-04-06] MEDS: Lisinopril 20 MG Tablet PO (10:27)
[2018-04-06 13:29] LABS: Partial Thromboplast Time 77.1 Seconds (24.1-36.2)
[2018-04-06 13:57] VITALS: BP 114/81; PULSE 80; RESP 16; TEMP 36.6; O2SAT 96
--- NOTE | 2018-04-06 15:15 | CASEMGMT ---
DARSHAN WINCHESTER Note: Call received from [facility]- pt is accepted. DARSHAN WINCHESTER let intake rep know pt will be @ [facility] until Monday awaiting anticoagulation and cultures. -Call to [facility]. They are continuing to work on Home Health Referral for IV antibiotics teaching and wound vac care. No agency acceptance yet. Updated to leave message on RN ANNABELLA phone when Agency has been approved. Mio CASTRON DARSHAN [facility]
[2018-04-06] MEDS: HEPARIN/D5w 25,000 UNITS 25,000 UNITS/250 ML IV.SOLN. 12 UNITS IV (16:22)
[2018-04-06] MEDS: 0.9% NaCl Peripheral Flush Adult/Peds IV (16:33)
[2018-04-06 19:02] LABS: Partial Thromboplast Time 69.4 Seconds (24.1-36.2)
[2018-04-06 19:59] VITALS: BP 140/88; PULSE 88; RESP 14; TEMP 36.7; O2SAT 98
--- NOTE | 2018-04-06 20:39 | PN.SURG_ITS ---
Subjective: Postop #1 Patient is resting comfortably. VAC applied today. - Physical Exam General: Alert, Oriented x3 HEENT: PERRLA, EOMI Oral: Moist Mucosa Neck: Supple Abdomen: Soft, Non-Distended Skin: Ulcer/ Wound - wound is stable. mild oozing controlled with gentle pressure. VAC applied today. Neurological: Cranial nerves II-XII grossly intact Psych/Mental Status: Normal Affect, Appropriate Vital Signs Temp Pulse Resp BP Pulse Ox 98.0 F 88 14 140/88 H 98 04/06/18 19:59 04/06/18 19:59 04/06/18 19:59 04/06/18 19:59 04/06/18 19:59 Oxygen Delivery Method Room Air Weight: 190 lb Body Mass Index (BMI) 24.5 Intake and Output for Last 24 Hours 04/04/18 04/05/18 04/06/18 23:59 23:59 23:59 Intake Total 3776 / 3776 5723 / 5723 4574 / 4574 Output Total 2150 / 2150 4400 / 4400 2750 / 2750 Balance 1626 / 1626 1323 / 1323 1824 / 1824 Microbiology Past 72 Hours 04/05/18 11:00 Gram Stain - Final Tissue Ulcer - Leg Wound Culture - Preliminary No growth-Final to follow 04/05/18 11:00 Gram Stain - Final Bone - Leg, Left Wound Culture - Preliminary No growth-Final to follow Laboratory Tests Past 24 Hrs 04/06/18 04/06/18 04/06/18 00:04 06:43 06:43 WBC 7.4 RBC 3.43 L Hgb 10.9 L Hct 33.1 L MCV 96.5 H MCH 31.8 MCHC 32.9 RDW 14.9 H RDW Differential 49.8 H Plt Count 209 MPV 9.3 PT 20.4 H INR 1.7 APTT 90.4 H* 102.3 H* Sodium Potassium Chloride Carbon Dioxide Anion Gap BUN Creatinine Estim Creat Clear Calc Est GFR (MDRD) Af Amer Est GFR (MDRD) Non-Af BUN/Creatinine Ratio Glucose Calcium 04/06/18 04/06/18 04/06/18 06:43 12:50 18:04 WBC RBC Hgb Hct MCV MCH MCHC RDW RDW Differential Plt Count MPV PT INR APTT 77.1 H 69.4 H Sodium 139 Potassium 4.2 Chloride 104 Carbon Dioxide 27.0 Anion Gap 8 BUN 10 Creatinine 1.27 Estim Creat Clear Calc 79.11 Est GFR (MDRD) Af Amer 76 Est GFR (MDRD) Non-Af 63 BUN/Creatinine Ratio 7.9 L Glucose 104 Calcium 8.6 Medical Necessity - Tobacco Use Smoking Status: Former smoker Assessment/Plan All Active Problems (Last Updated 02/21/18 @ 10:20 by Stella Zamora) Thrush, oral (Acute) Cellulitis (Acute) History of blood clots (Acute) Amputation, traumatic, leg (Acute) Limb weakness (Acute) Difficulty balancing (Acute) Chest pain (Acute) Migraines (Acute) Fatigue (Acute) SOB (shortness of breath) (Acute) Infection caused by Enterobacter cloacae (Acute) MSSA (methicillin susceptible Staphylococcus aureus) infection (Acute) Left foot pain (Acute) Left foot swelling (Acute) Left 3rd toe drainage (Acute) 1. Nonhealing ulcer left BKA stump. 2. Pain left BKA stump. 3. 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 4. 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 6. s/p surgical preparation left BKA stump with incision and drainage and excisional debridement nonhealing infected ulcer and partial ostectomy tibia for osteomyelitis. Mild oozing in the wound today easily controlled with gentle pressure. VAC applied without difficulty. Operative cultures are negative thus far. Continue IV Vancomycin, Levaquin, and Flagyl. A positive culture may necessitate antibiotic modification. If osteomyelitis is present, would need IV antibiotics correction. With his history of infection, I anticipate at least 1-2 weeks of IV antibiotics and will have a PICC line placed. Pathology is pending. Prealbumin was 31.2. Encourage nutritional supplementation with protein to help the healing process. INR was 1.7. Continue to maximize Coumadin in preparation for discharge. Prior to revision of the amputation stump with readvancement of the muscle flap and partial ostectomy and secondary wound closure, will need Pathology report that is negative for osteomyelitis. Depending on the severity of the osteomyelitis and the proximal extent of the osteomyelitis, I may not be able to revise the left BKA stump if too much of the tibia has to be removed to control the osteomyelitis. If so, then would need to proceed to a left AKA. At the time of the wound closure surgery, it would be done under general anesthesia and tourniquet control with a surgical observation overnight stay in the hospital. A drain will be placed for several days. Tissue and bone will be sent to Pathology for analysis to rule out carcinoma and to evaluate for osteomyelitis. Tissue and bone will be sent to Microbiology for culture. A positive culture may necessitate antibiotic modification. After healing has occurred and the swelling is controlled with a stump mophead trimmer and wrapper, then he can be evaluated with his [employer] for revision of his prosthesis. Would like to have HBO treatments prior to revision of the amputation stump flap.
[2018-04-06] MEDS: Atorvastatin Calcium 40 MG Tablet PO (22:09)
[2018-04-07] MEDS: HYDROmorphone 1 MG/ML Syringe 2 MG IV ×4 (00:29→21:29)
[2018-04-07] MEDS: Lactated Ringers 1,000 ML 60 ML IV ×2 (00:31→20:34)
[2018-04-07 03:32] VITALS: BP 154/87; PULSE 74; RESP 16; TEMP 36.4; O2SAT 98
[2018-04-07 07:22] LABS: Hematocrit 33.3 % (40-54); Hemoglobin 10.6 g/dl (13.0-16.5); Mean Corp Hgb Conc 31.8 g/gl (32-36); Mean Corpuscular Hgb 30.8 pg (27.0-32.0); Mean Corpuscular Volume 96.8 fL (80-94); Mean Platelet Vol. 9.6 fl (6.2-12.0); Platelet Count 219 K/mm3 (150-450); RBC Distribution Width CV 15.4 % (11.6-14.6); RBC Distribution Width SD 54.1 fl (35.1-43.9); Red Blood Count 3.44 M/mm3 (4.6-6.2); Scan Indicated on CBC? Y/N NO; White Blood Count 8.9 K/mm3 (4.4-11.0)
--- NOTE | 2018-04-07 07:30 | PN_ITS ---
Subjective: Patient seen wound VAC was applied the day prior. Complains of significant muscle spasms in the left eye. INR is down to 1.4 patient remains on heparin patient did discuss the possibility of switching from Coumadin to 1 of the NOACs were discussed with case management around the insurance to examine cost. Objective: GENERAL: cooperative HEENT: Atraumatic; moist oral mucosa EYES; Anicteric, Normal Conjunctiva NECK; supple, normal thyroid, no distended JVD. RESPIRATORY: Diminished to auscultation bilaterally, CARDIOVASCULAR: Regular S1 S2, no audible murmurs GI: soft, non-tender, normoactive bowel sounds, : No Renal angle tenderness; EXTREMITIES: Left BKA with surgical dressing on MUSCULOSKELETAL: No Joint Tenderness; no muscle waisting NEURO: Awake; no lateralizing signs. SKIN: No Rash PSYCH; Normal affect Vitals/I&O's: Vital Signs Temp Pulse Resp BP Pulse Ox 97.6 F L 74 16 154/87 H 98 04/07/18 03:32 04/07/18 03:32 04/07/18 03:32 04/07/18 03:32 04/07/18 03:32 Oxygen Delivery Method Room Air Weight: 86.183 kg Body Mass Index (BMI) 24.5 Intake and Output for Last 24 Hours 04/05/18 04/06/18 04/07/18 23:59 23:59 23:59 Intake Total 5723 / 5723 4574 / 4574 1964 / 1963 Output Total 4400 / 4400 2750 / 2750 1600 / 1600 Balance 1323 / 1323 1824 / 1824 364 / 364 Microbiology Past 72 Hours 04/05/18 11:00 Tissue Ulcer - Leg Gram Stain - Final 04/05/18 11:00 Tissue Ulcer - Leg Wound Culture - Preliminary No growth-Final to follow 04/05/18 11:00 Bone - Leg, Left Gram Stain - Final 04/05/18 11:00 Bone - Leg, Left Wound Culture - Preliminary No growth-Final to follow Laboratory Results 04/06/18 06:43: PT 20.4 H, INR 1.7, APTT 102.3 H* 04/06/18 12:50: APTT 77.1 H 04/06/18 18:04: APTT 69.4 H 04/07/18 06:46: WBC 8.9, RBC 3.44 L, Hgb 10.6 L, Hct 33.3 L, MCV 96.8 H, MCH 30.8, MCHC 31.8 L, RDW 15.4 H, RDW Differential 54.1 H, Plt Count 219, MPV 9.6 04/07/18 06:46: PT Pending, INR Pending, APTT Pending 04/07/18 06:46: Sodium Pending, Potassium Pending, Chloride Pending, Carbon Dioxide Pending, Anion Gap Pending, BUN Pending, Creatinine Pending, Est GFR (MDRD) Af Amer Pending, Est GFR (MDRD) Non-Af Pending, BUN/Creatinine Ratio Pending, Glucose Pending, Calcium Pending, Magnesium Pending Current Medications Atorvastatin Calcium (Lipitor) 40 mg PO QHS [facility] Last Admin: 04/06/18 22:09 Dose: 40 mg Carvedilol (Coreg) 12.5 mg PO DAILY [facility] Last Admin: 04/06/18 08:08 Dose: 12.5 mg Cyclobenzaprine HCl (Flexeril) 10 mg PO TID [facility] Last Admin: 04/07/18 06:06 Dose: Not Given Docusate Sodium (Colace) 100 mg PO BID [facility] Last Admin: 04/06/18 22:10 Dose: Not Given [facility] Last Admin: 04/06/18 16:26 Dose: 1,800 mg Heparin Sodium (Porcine) (Heparin Na) 0 unit IV UD PRN; Protocol Hydromorphone HCl (Dilaudid Inj) 2 mg IV Q4H PRN PRN PRN Reason: SEVERE PAIN (-03/07) Last Admin: 04/07/18 06:06 Dose: 2 mg Levofloxacin (Levaquin Iv) 500 mg in 100 mls @ 100 mls/hr IV Q24 [facility] Last Admin: 04/06/18 08:55 Dose: 100 mls/hr Lactated Ringer's () 1,000 mls @ 60 mls/hr IV .[id number] [facility] Last Admin: 04/07/18 00:31 Dose: 60 mls/hr Metronidazole (Flagyl) 500 mg in 100 mls @ 100 mls/hr IV Q8 [facility] Last Admin: 04/07/18 06:06 Dose: 100 mls/hr Vancomycin IV Pharmacy to Dose (1 ea/ Sodium Chloride) 500 mls @ 250 mls/hr IV X1 PRN; Protocol PRN Reason: Rx to Dose Vancomycin HCl 1,250 mg/ (Sodium Chloride) 275 mls @ 167 mls/hr IV Q12H [facility] Last Admin: 04/06/18 22:09 Dose: 167 mls/hr Sodium Chloride () 250 mls @ 15 mls/hr IV .[id number] PRN PRN Reason: SALINE FLUSH Last Admin: 04/05/18 22:24 Dose: 15 mls/hr Heparin Sodium/Dextrose () 25,000 units in 250 mls @ 12 mls/hr IV .[id number] [facility]; Protocol Last Admin: 04/06/18 16:22 Dose: 12 mls/hr Lisinopril (Zestril) 20 mg PO DAILY [facility] Last Admin: 04/06/18 10:27 Dose: 20 mg Ondansetron HCl (Zofran) 4 mg IV Q6H PRN PRN PRN Reason: NAUSEA Last Admin: 04/03/18 18:25 Dose: 4 mg Oxycodone HCl (Oxyir) 10 mg PO Q4H PRN PRN PRN Reason: SEVERE PAIN (6-10/10) Last Admin: 04/06/18 22:29 Dose: 10 mg Promethazine HCl (Phenergan Tablet) 25 mg PO Q4H PRN PRN PRN Reason: NAUSEA/VOMITING Last Admin: 04/03/18 20:01 Dose: 25 mg Sodium Chloride () 5 - 30 ml IV UD PRN PRN Reason: SALINE FLUSH Last Admin: 04/06/18 16:33 Dose: 10 ml Warfarin Sodium (Coumadin (Pbkc)) 3 mg PO DAILY@1700 ERIKA; Protocol Last Admin: 04/06/18 16:27 Dose: 3 mg Zolpidem Tartrate (Ambien (Generic)) 5 mg PO QHS PRN PRN PRN Reason: INSOMNIA Medical Necessity - Tobacco Use Smoking Status: Former smoker Assessment/Plan All Active Problems (Last Updated 02/21/18 @ 10:20 by Stella Zamora) Thrush, oral (Acute) Cellulitis (Acute) History of blood clots (Acute) Amputation, traumatic, leg (Acute) Limb weakness (Acute) Difficulty balancing (Acute) Chest pain (Acute) Migraines (Acute) Fatigue (Acute) SOB (shortness of breath) (Acute) Infection caused by Enterobacter cloacae (Acute) MSSA (methicillin susceptible Staphylococcus aureus) infection (Acute) Left foot pain (Acute) Left foot swelling (Acute) Left 3rd toe drainage (Acute) Patient is a 52-year-old male with multiple comorbidities including left BKA presented suspected osteomyelitis involving the stump. Patient was admitted by Dr. Massey with plans for patient to undergo excisional debridement. Hospitalist service was consulted to assist with management of patient medical comorbidities Hospitalist service was consulted to assist with management of patient medical comorbidities 1. Suspected days involving the left BKA stump. Admitted to regular nursing floor with plans for patient undergo excisional debridement by Dr. Penaloza on 04/05/2018 patient was started on Levaquin and vancomycin on admission. Patient underwent surgical preparation left BKA stump with incision and drainage and e xcisional debridement nonhealing infected ulcer; Partial ostectomy tibia for osteomyelitis by Dr. Massey on 04/05/2018. Patient underwent wound VAC placement on 04/06/2018 2. Essential hypertension-blood pressure controlled, home medications continued with dose adjustment as needed 3. Dyslipidemia-patient is on statin therapy, continued at home dose 4. History of previous DVT and PE patient is on Coumadin was 2.1 on admission 2.3 as of 04/04/2018. It was held prior to surgery bridge with heparin subsequently monitoring INR 5. Peripheral arterial disease 6. Renal failure do suspect acute renal failure possibly from dehydration baseline creatinine a year prior to his admission was within normal limits 7. DVT prophylaxis patient is on systemic 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 with Coumadin no need f or additional measures. Code Visit Inpatient E&M: 83725 Subs Hosp L2
[2018-04-07 07:33] LABS: International Normalized Ratio 1.4; Prothrombin Time (Protime)PT. 17.3 SECONDS (11.7-14.9)
[2018-04-07 07:34] LABS: Partial Thromboplast Time 60.1 Seconds (24.1-36.2)
[2018-04-07 07:53] LABS: Anion Gap 5 (5-15); BUN 10 mg/dL (7-18); Calcium,Total 8.7 mg/dL (8.5-10.1); Chloride 106 mmol/L (98-107); Creatinine, Serum 1.25 mg/dL (0.70-1.30); EST Glomerular Filtration Rate 64 mL/min (>60); Est Glom Filt Rate - Afr Amer 78 mL/min (>60); Estimated Creatinine Clearance 80.37 ml/min; Glucose 102 mg/dL (74-106); Potassium 4.1 mmol/L (3.5-5.1); Sodium Level 139 mmol/L (136-145)
--- NOTE | 2018-04-07 08:22 | NURSING ---
Pt heparin continues at 900 units/ hr (9ml/hr). APTT WNL at 60.1. Per protocol- APTT ordered to repeat daily at 04/08/18 AM
[2018-04-07 08:27] VITALS: BP 148/96; PULSE 83; RESP 18; TEMP 36.4; O2SAT 98
[2018-04-07] MEDS: Carvedilol 12.5 MG Tablet PO (08:36)
[2018-04-07] MEDS: Lisinopril 20 MG Tablet PO (08:36)
[2018-04-07] MEDS: Gabapentin 600 MG Tablet 1800 MG PO ×2 (08:36→17:29)
[2018-04-07] MEDS: oxyCODONE 5 MG Tablet 10 MG PO ×2 (08:40→13:47)
[2018-04-07] MEDS: levoFLOXacin IV 500 MG/100 ML BAG 100 MG IV (08:41)
--- NOTE | 2018-04-07 12:54 | PN.SURG_ITS ---
Subjective: Postop #2 Patient is resting comfortably. - Physical Exam General: Alert, Oriented x3 HEENT: PERRLA, EOMI Oral: Moist Mucosa Neck: Supple Abdomen: Soft, Non-Distended Skin: Ulcer/ Wound - wound is stable. VAC in place. Minimal drainage seen in the canister. Neurological: Cranial nerves II-XII grossly intact Psych/Mental Status: Normal Affect, Appropriate Vital Signs Temp Pulse Resp BP Pulse Ox 97.6 F L 83 18 148/96 H 98 04/07/18 08:27 04/07/18 08:27 04/07/18 08:27 04/07/18 08:27 04/07/18 08:27 Oxygen Delivery Method Room Air Weight: 190 lb Body Mass Index (BMI) 24.5 Intake and Output for Last 24 Hours 04/05/18 04/06/18 04/07/18 23:59 23:59 23:59 Intake Total 5723 / 5723 4574 / 4574 2904 / 2904 Output Total 4400 / 4400 2750 / 2750 1600 / 1600 Balance 1323 / 1323 1824 / 1824 1304 / 1304 Microbiology Past 72 Hours 04/05/18 11:00 Gram Stain - Final Tissue Ulcer - Leg Wound Culture - Preliminary No growth-Final to follow Anaerobic Culture - Preliminary No growth in 48 hours. 04/05/18 11:00 Gram Stain - Final Bone - Leg, Left Wound Culture - Preliminary No growth-Final to follow Anaerobic Culture - Preliminary No growth in 48 hours. Pathology - pending. Laboratory Tests Past 24 Hrs 04/06/18 04/06/18 04/07/18 12:50 18:04 06:46 WBC 8.9 RBC 3.44 L Hgb 10.6 L Hct 33.3 L MCV 96.8 H MCH 30.8 MCHC 31.8 L RDW 15.4 H RDW Differential 54.1 H Plt Count 219 MPV 9.6 PT INR APTT 77.1 H 69.4 H Sodium Potassium Chloride Carbon Dioxide Anion Gap BUN Creatinine Estim Creat Clear Calc Est GFR (MDRD) Af Amer Est GFR (MDRD) Non-Af BUN/Creatinine Ratio Glucose Calcium Magnesium 04/07/18 04/07/18 06:46 06:46 WBC RBC Hgb Hct MCV MCH MCHC RDW RDW Differential Plt Count MPV PT 17.3 H INR 1.4 APTT 60.1 H Sodium 139 Potassium 4.1 Chloride 106 Carbon Dioxide 28.0 Anion Gap 5 BUN 10 Creatinine 1.25 Estim Creat Clear Calc 80.37 Est GFR (MDRD) Af Amer 78 Est GFR (MDRD) Non-Af 64 BUN/Creatinine Ratio 8.0 L Glucose 102 Calcium 8.7 Magnesium 2.0 Medical Necessity - Tobacco Use Smoking Status: Former smoker Assessment/Plan All Active Problems (Last Updated 02/21/18 @ 10:20 by Stella Zamora) Thrush, oral (Acute) Cellulitis (Acute) History of blood clots (Acute) Amputation, traumatic, leg (Acute) Limb weakness (Acute) Difficulty balancing (Acute) Chest pain (Acute) Migraines (Acute) Fatigue (Acute) SOB (shortness of breath) (Acute) Infection caused by Enterobacter cloacae (Acute) MSSA (methicillin susceptible Staphylococcus aureus) infection (Acute) Left foot pain (Acute) Left foot swelling (Acute) Left 3rd toe drainage (Acute) 1. Nonhealing ulcer left BKA stump. 2. Pain left BKA stump. 3. 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 4. 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 6. s/p surgical preparation left BKA stump with incision and drainage and excisional debridement nonhealing infected ulcer and partial ostectomy tibia for osteomyelitis. Wound is stable. VAC in place. Minimal drainage in the canister. Operative cultures are negative thus far. Continue IV Vancomycin, Levaquin, and Flagyl. A positive culture may necessitate antibiotic modification. If osteomyelitis is present, would need IV antibiotics custodial. With his history of infection, I anticipate at least 1-2 weeks of IV antibiotics with a PICC line placed. Pathology is pending. Prealbumin was 31.2. Encourage nutritional supplementation with protein to help the healing process. INR was 1.4. Continue to maximize Coumadin in preparation for discharge. Prior to revision of the amputation stump with readvancement of the muscle flap and partial ostectomy and secondary wound closure, will need Pathology report that is negative for osteomyelitis. Depending on the severity of the osteomyelitis and the proximal extent of the osteomyelitis, I may not be able to revise the left BKA stump if too much of the tibia has to be removed to control the osteomyelitis. If so, then would need to proceed to a left AKA. At the time of the wound closure surgery, it would be done under general anesthesia and tourniquet control with a surgical observation overnight stay in the hospital. A drain will be placed for several days. Tissue and bone will be sent to Pathology for analysis to rule out carcinoma and to evaluate for osteomyelitis. Tissue and bone will be sent to Microbiology for culture. A positive culture may necessitate antibiotic modification. After healing has occurred and the swelling is controlled with a stump swing driver, then he can be evaluated with his [employer] for revision of his prosthesis. Would like to have HBO treatments prior to revision of the amputation stump flap.
[2018-04-07 13:40] VITALS: BP 160/94; PULSE 91; RESP 16; TEMP 36.9; O2SAT 99
[2018-04-07] MEDS: 0.9% NaCl Peripheral Flush Adult/Peds IV (17:32)
[2018-04-07 19:50] VITALS: BP 124/84; PULSE 84; RESP 16; TEMP 36.7; O2SAT 98
[2018-04-07] MEDS: HEPARIN/D5w 25,000 UNITS 25,000 UNITS/250 ML IV.SOLN. 12 UNITS IV (21:01)
[2018-04-07] MEDS: Atorvastatin Calcium 40 MG Tablet PO (21:03)
[2018-04-08 01:50] VITALS: BP 156/102; PULSE 94; RESP 18; TEMP 36.8; O2SAT 97
[2018-04-08] MEDS: HYDROmorphone 1 MG/ML Syringe 2 MG IV ×3 (02:19→19:52)
[2018-04-08 05:56] LABS: International Normalized Ratio 1.3; Prothrombin Time (Protime)PT. 15.7 SECONDS (11.7-14.9)
[2018-04-08 05:58] LABS: Partial Thromboplast Time 62.9 Seconds (24.1-36.2)
[2018-04-08 06:07] LABS: Hematocrit 32.1 % (40-54); Hemoglobin 10.7 g/dl (13.0-16.5); Mean Corp Hgb Conc 33.3 g/gl (32-36); Mean Corpuscular Hgb 32.2 pg (27.0-32.0); Mean Corpuscular Volume 96.7 fL (80-94); Mean Platelet Vol. 9.7 fl (6.2-12.0); Platelet Count 246 K/mm3 (150-450); RBC Distribution Width SD 50.3 fl (35.1-43.9); Red Blood Count 3.32 M/mm3 (4.6-6.2); White Blood Count 9.9 K/mm3 (4.4-11.0)
[2018-04-08] MEDS: oxyCODONE 5 MG Tablet 10 MG PO ×3 (06:07→22:19)
[2018-04-08 06:21] LABS: Scan Indicated on CBC? Y/N NO
[2018-04-08 06:49] LABS: Anion Gap 9 (5-15); BUN 10 mg/dL (7-18); BUN/Creat Ratio 8.7 RATIO (10-20); Calcium,Total 8.8 mg/dL (8.5-10.1); Chloride 103 mmol/L (98-107); Creatinine, Serum 1.15 mg/dL (0.70-1.30); EST Glomerular Filtration Rate 71 mL/min (>60); Est Glom Filt Rate - Afr Amer 86 mL/min (>60); Estimated Creatinine Clearance 87.36 ml/min; Glucose 100 mg/dL (74-106); Potassium 4.2 mmol/L (3.5-5.1); Sodium Level 138 mmol/L (136-145)
[2018-04-08 07:50] VITALS: BP 148/82; PULSE 91; RESP 16; TEMP 37; O2SAT 97
[2018-04-08] MEDS: levoFLOXacin IV 500 MG/100 ML BAG 100 MG IV (08:07)
[2018-04-08] MEDS: Lisinopril 20 MG Tablet PO (08:08)
[2018-04-08] MEDS: Gabapentin 600 MG Tablet 1800 MG PO ×2 (08:08→16:57)
[2018-04-08] MEDS: Carvedilol 12.5 MG Tablet PO (08:08)
--- NOTE | 2018-04-08 08:19 | PCM.PN.HOSP ---
Subjective: Seen still complains of significant spasms in the left thigh. Has been started on Flexeril scheduled by Dr. Massey; his INR still remains subtherapeutic Objective: GENERAL: cooperative HEENT: Atraumatic; moist oral mucosa EYES; Anicteric, Normal Conjunctiva NECK; supple, normal thyroid, no distended JVD. RESPIRATORY: Diminished to auscultation bilaterally, CARDIOVASCULAR: Regular S1 S2, no audible murmurs GI: soft, non-tender, normoactive bowel sounds, : No Renal angle tenderness; EXTREMITIES: Left BKA with surgical dressing on MUSCULOSKELETAL: No Joint Tenderness; no muscle waisting NEURO: Awake; no lateralizing signs. SKIN: No Rash PSYCH; Normal affect Vitals/I&O's: Vital Signs Temp Pulse Resp BP Pulse Ox 98.6 F 91 16 148/82 H 97 04/08/18 07:50 04/08/18 07:50 04/08/18 07:50 04/08/18 07:50 04/08/18 07:50 Oxygen Delivery Method Room Air Weight: 86.183 kg Body Mass Index (BMI) 24.5 Intake and Output for Last 24 Hours 04/06/18 04/07/18 04/08/18 23:59 23:59 23:59 Intake Total 4574 / 4574 3993 / 3993 2211 / 2211 Output Total 2750 / 2750 2500 / 2500 1650 / 1650 Balance 1824 / 1824 1493 / 1493 561 / 561 Microbiology Past 72 Hours 04/05/18 11:00 Tissue Ulcer - Leg Gram Stain - Final 04/05/18 11:00 Tissue Ulcer - Leg Wound Culture - Final No growth aerobically. 04/05/18 11:00 Tissue Ulcer - Leg Anaerobic Culture - Preliminary No growth in 48 hours. 04/05/18 11:00 Bone - Leg, Left Gram Stain - Final 04/05/18 11:00 Bone - Leg, Left Wound Culture - Final No growth aerobically. 04/05/18 11:00 Bone - Leg, Left Anaerobic Culture - Preliminary No growth in 48 hours. Laboratory Results 04/08/18 05:12: WBC 9.9, RBC 3.32 L, Hgb 10.7 L, Hct 32.1 L, MCV 96.7 H, MCH 32.2 H, MCHC 33.3, RDW 15.0 H, RDW Differential 50.3 H, Plt Count 246, MPV 9.7 04/08/18 05:12: PT 15.7 H, INR 1.3, APTT 62.9 H 04/08/18 05:12: Sodium 138, Potassium 4.2, Chloride 103, Carbon Dioxide 26.0, Anion Gap 9, BUN 10, Creatinine 1.15, Estim Creat Clear Calc 87.36, Est GFR (MDRD) Af Amer 86, Est GFR (MDRD) Non-Af 71, BUN/Creatinine Ratio 8.7 L, Glucose 100, Calcium 8.8 Current Medications Atorvastatin Calcium (Lipitor) 40 mg PO QHS [facility] Last Admin: 04/07/18 21:03 Dose: 40 mg Carvedilol (Coreg) 12.5 mg PO DAILY [facility] Last Admin: 04/08/18 08:08 Dose: 12.5 mg Cyclobenzaprine HCl (Flexeril) 10 mg PO TID [facility] Last Admin: 04/08/18 06:07 Dose: 10 mg Docusate Sodium (Colace) 100 mg PO BID [facility] Last Admin: 04/08/18 08:06 Dose: Not Given Gabapentin (Neurontin) 1,800 mg PO BIDCM [facility] Last Admin: 04/08/18 08:08 Dose: 1,800 mg Heparin Sodium (Porcine) (Heparin Na) 0 unit IV UD PRN; Protocol Hydromorphone HCl (Dilaudid Inj) 2 mg IV Q4H PRN PRN PRN Reason: SEVERE PAIN (6-10/10) Last Admin: 04/08/18 02:19 Dose: 2 mg Levofloxacin (Levaquin Iv) 500 mg in 100 mls @ 100 mls/hr IV Q24 [facility] Last Admin: 04/08/18 08:07 Dose: 100 mls/hr Lactated Ringer's () 1,000 mls @ 60 mls/hr IV .[id number] [facility] Last Admin: 04/07/18 20:34 Dose: 60 mls/hr Metronidazole (Flagyl) 500 mg in 100 mls @ 100 mls/hr IV Q8 [facility] Last Admin: 04/08/18 06:43 Dose: 100 mls/hr Vancomycin IV Pharmacy to Dose (1 ea/ Sodium Chloride) 500 mls @ 250 mls/hr IV X1 PRN; Protocol PRN Reason: Rx to Dose Vancomycin HCl 1,250 mg/ (Sodium Chloride) 275 mls @ 167 mls/hr IV Q12H [facility] Last Admin: 04/07/18 22:19 Dose: 167 mls/hr Sodium Chloride () 250 mls @ 15 mls/hr IV .[id number] PRN PRN Reason: SALINE FLUSH Last Admin: 04/05/18 22:24 Dose: 15 mls/hr Heparin Sodium/Dextrose () 25,000 units in 250 mls @ 12 mls/hr IV .[id number] [facility]RI[facility]; Protocol Last Admin: 04/07/18 21:01 Dose: 12 mls/hr Lisinopril (Zestril) 20 mg PO DAILY [facility] Last Admin: 04/08/18 08:08 Dose: 20 mg Ondansetron HCl (Zofran) 4 mg IV Q6H PRN PRN PRN Reason: NAUSEA Last Admin: 04/03/18 18:25 Dose: 4 mg Oxycodone HCl (Oxyir) 10 mg PO Q4H PRN PRN PRN Reason: SEVERE PAIN (6-03/07) Last Admin: 04/08/18 06:07 Dose: 10 mg Promethazine HCl (Phenergan Tablet) 25 mg PO Q4H PRN PRN PRN Reason: NAUSEA/VOMITING Last Admin: 04/03/18 20:01 Dose: 25 mg Sodium Chloride () 5 - 30 ml IV UD PRN PRN Reason: SALINE FLUSH Last Admin: 04/07/18 17:32 Dose: 10 ml Warfarin Sodium (Coumadin (Pbkc)) 3 mg PO DAILY@1700 ERIKA; Protocol Last Admin: 04/07/18 17:29 Dose: 3 mg Zolpidem Tartrate (Ambien (Generic)) 5 mg PO QHS PRN PRN PRN Reason: INSOMNIA Medical Necessity - Tobacco Use Smoking Status: Former smoker Assessment/Plan All Active Problems (Last Updated 02/21/18 @ 10:20 by Stella Zamora) Thrush, oral (Acute) Cellulitis (Acute) History of blood clots (Acute) Amputation, traumatic, leg (Acute) Limb weakness (Acute) Difficulty balancing (Acute) Chest pain (Acute) Migraines (Acute) Fatigue (Acute) SOB (shortness of breath) (Acute) Infection caused by Enterobacter cloacae (Acute) MSSA (methicillin susceptible Staphylococcus aureus) infection (Acute) Left foot pain (Acute) Left foot swelling (Acute) Left 3rd toe drainage (Acute) Patient is a 52-year-old male with multiple comorbidities including left BKA presented suspected osteomyelitis involving the stump. Patient was admitted by Dr. Massey with plans for patient to undergo excisional debridement. Hospitalist service was consulted to assist with management of patient medical comorbidities Hospitalist service was consulted to assist with management of patient medical comorbidities 1. Suspected days involving the left BKA stump. Admitted to regular nursing floor with plans for patient undergo excisional debridement by Dr. Penaloza on 04/05/2018 patient was started on Levaquin and vancomycin on admission. Patient underwent surgical preparation left BKA stump with incision and drainage and excisional debridement nonhealing infected ulcer; Partial ostectomy tibia for osteomyelitis by Dr. Massey on 04/05/2018. Patient underwent wound VAC placement on 04/06/2018 2. Essential hypertension-blood pressure controlled, home medications continued with dose adjustment as needed 3. Dyslipidemia-patient is on statin therapy, continued at home dose 4. History of previous DVT and PE patient is on Coumadin was 2.1 on admission 2.3 as of 04/04/2018. It was held prior to surgery bridge with heparin subsequently monitoring INR. Patient did discuss the possibility of switching from Coumadin to 1 of the NOACs were discussed with case management around the insurance to examine cost. 5. Peripheral arterial disease 6. Renal failure do suspect acute renal failure possibly from dehydration baseline creatinine a year prior to his admission was within normal limits kidney function back to baseline 7. DVT prophylaxis patient is on systemic 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 with Coumadin no need for additional measures. Code Visit Inpatient E&M: 34126 Subs Hosp L2
--- NOTE | 2018-04-08 08:22 | PN_ITS ---
Subjective: Seen still complains of significant spasms in the left thigh. Has been started on Flexeril scheduled by Dr. Massey; his INR still remains subtherapeutic Objective: GENERAL: cooperative HEENT: Atraumatic; moist oral mucosa EYES; Anicteric, Normal Conjunctiva NECK; supple, normal thyroid, no distended JVD. RESPIRATORY: Diminished to auscultation bilaterally, CARDIOVASCULAR: Regular S1 S2, no audible murmurs GI: soft, non-tender, normoactive bowel sounds, : No Renal angle tenderness; EXTREMITIES: Left BKA with surgical dressing on MUSCULOSKELETAL: No Joint Tenderness; no muscle waisting NEURO: Awake; no lateralizing signs. SKIN: No Rash PSYCH; Normal affect Vitals/I&O's: Vital Signs Temp Pulse Resp BP Pulse Ox 98.6 F 91 16 148/82 H 97 04/08/18 07:50 04/08/18 07:50 04/08/18 07:50 04/08/18 07:50 04/08/18 07:50 Oxygen Delivery Method Room Air Weight: 86.183 kg Body Mass Index (BMI) 24.5 Intake and Output for Last 24 Hours 04/06/18 04/07/18 04/08/18 23:59 23:59 23:59 Intake Total 4574 / 4574 3993 / 3993 2211 / 2211 Output Total 2750 / 2750 2500 / 2500 1650 / 1650 Balance 1824 / 1824 1493 / 1493 561 / 561 Microbiology Past 72 Hours 04/05/18 11:00 Tissue Ulcer - Leg Gram Stain - Final 04/05/18 11:00 Tissue Ulcer - Leg Wound Culture - Final No growth aerobically. 04/05/18 11:00 Tissue Ulcer - Leg Anaerobic Culture - Preliminary No growth in 48 hours. 04/05/18 11:00 Bone - Leg, Left Gram Stain - Final 04/05/18 11:00 Bone - Leg, Left Wound Culture - Final No growth aerobically. 04/05/18 11:00 Bone - Leg, Left Anaerobic Culture - Preliminary No growth in 48 hours. Laboratory Results 04/08/18 05:12: WBC 9.9, RBC 3.32 L, Hgb 10.7 L, Hct 32.1 L, MCV 96.7 H, MCH 32.2 H, MCHC 33.3, RDW 15.0 H, RDW Differential 50.3 H, Plt Count 246, MPV 9.7 04/08/18 05:12: PT 15.7 H, INR 1.3, APTT 62.9 H 04/08/18 05:12: Sodium 138, Potassium 4.2, Chloride 103, Carbon Dioxide 26.0, Anion Gap 9, BUN 10, Creatinine 1.15, Estim Creat Clear Calc 87.36, Est GFR (MDRD) Af Amer 86, Est GFR (MDRD) Non-Af 71, BUN/Creatinine Ratio 8.7 L, Glucose 100, Calcium 8.8 Current Medications Atorvastatin Calcium (Lipitor) 40 mg PO QHS PENDING SALE TO [facility] Last Admin: 04/07/18 21:03 Dose: 40 mg Carvedilol (Coreg) 12.5 mg PO DAILY PENDING SALE TO [facility] Last Admin: 04/08/18 08:08 Dose: 12.5 mg Cyclobenzaprine HCl (Flexeril) 10 mg PO TID PENDING SALE TO [facility] Last Admin: 04/08/18 06:07 Dose: 10 mg Docusate Sodium (Colace) 100 mg PO BID PENDING SALE TO [facility] Last Admin: 04/08/18 08:06 Dose: Not Given Gabapentin (Neurontin) 1,800 mg PO BIDCM PENDING SALE TO [facility] Last Admin: 04/08/18 08:08 Dose: 1,800 mg Heparin Sodium (Porcine) (Heparin Na) 0 unit IV UD PRN; Protocol Hydromorphone HCl (Dilaudid Inj) 2 mg IV Q4H PRN PRN PRN Reason: SEVERE PAIN (6-10/10) Last Admin: 04/08/18 02:19 Dose: 2 mg Levofloxacin (Levaquin Iv) 500 mg in 100 mls @ 100 mls/hr IV Q24 PENDING SALE TO [facility] Last Admin: 04/08/18 08:07 Dose: 100 mls/hr Lactated Ringer's () 1,000 mls @ 60 mls/hr IV .[id number] PENDING SALE TO [facility] Last Admin: 04/07/18 20:34 Dose: 60 mls/hr Metronidazole (Flagyl) 500 mg in 100 mls @ 100 mls/hr IV Q8 PENDING SALE TO [facility] Last Admin: 04/08/18 06:43 Dose: 100 mls/hr Vancomycin IV Pharmacy to Dose (1 ea/ Sodium Chloride) 500 mls @ 250 mls/hr IV X1 PRN; Protocol PRN Reason: Rx to Dose Vancomycin HCl 1,250 mg/ (Sodium Chloride) 275 mls @ 167 mls/hr IV Q12H PENDING SALE TO [facility] Last Admin: 04/07/18 22:19 Dose: 167 mls/hr Sodium Chloride () 250 mls @ 15 mls/hr IV .[id number] PRN PRN Reason: SALINE FLUSH Last Admin: 04/05/18 22:24 Dose: 15 mls/hr Heparin Sodium/Dextrose () 25,000 units in 250 mls @ 12 mls/hr IV .[id number] ERIKA; Protocol Last Admin: 04/07/18 21:01 Dose: 12 mls/hr Lisinopril (Zestril) 20 mg PO DAILY PENDING SALE TO [facility] Last Admin: 04/08/18 08:08 Dose: 20 mg Ondansetron HCl (Zofran) 4 mg IV Q6H PRN PRN PRN Reason: NAUSEA Last Admin: 04/03/18 18:25 Dose: 4 mg Oxycodone HCl (Oxyir) 10 mg PO Q4H PRN PRN PRN Reason: SEVERE PAIN (6-03/07) Last Admin: 04/08/18 06:07 Dose: 10 mg Promethazine HCl (Phenergan Tablet) 25 mg PO Q4H PRN PRN PRN Reason: NAUSEA/VOMITING Last Admin: 04/03/18 20:01 Dose: 25 mg Sodium Chloride () 5 - 30 ml IV UD PRN PRN Reason: SALINE FLUSH Last Admin: 04/07/18 17:32 Dose: 10 ml Warfarin Sodium (Coumadin (Pbkc)) 3 mg PO DAILY@1700 ERIKA; Protocol Last Admin: 04/07/18 17:29 Dose: 3 mg Zolpidem Tartrate (Ambien (Generic)) 5 mg PO QHS PRN PRN PRN Reason: INSOMNIA Medical Necessity - Tobacco Use Smoking Status: Former smoker Assessment/Plan All Active Problems (Last Updated 02/21/18 @ 10:20 by Stella Zamora) Thrush, oral (Acute) Cellulitis (Acute) History of blood clots (Acute) Amputation, traumatic, leg (Acute) Limb weakness (Acute) Difficulty balancing (Acute) Chest pain (Acute) Migraines (Acute) Fatigue (Acute) SOB (shortness of breath) (Acute) Infection caused by Enterobacter cloacae (Acute) MSSA (methicillin susceptible Staphylococcus aureus) infection (Acute) Left foot pain (Acute) Left foot swelling (Acute) Left 3rd toe drainage (Acute) Patient is a 52-year-old male with multiple comorbidities including left BKA presented suspected osteomyelitis involving the stump. Patient was admitted by Dr. Massey with plans for patient to undergo excisional debridement. Hospitalist service was consulted to assist with management of patient medical comorbidities Hospitalist service was consulted to assist with management of patient medical comorbidities 1. Suspected days involving the left BKA stump. Admitted to regular nursing floor with plans for patient undergo excisional debridement by Dr. Penaloza on 04/05/2018 patient was started on Levaquin and vancomycin on admission. Patient underwent surgical preparation left BKA stump with incision and drainage and excisional debridement nonhealing infected ulcer; Partial ostectomy tibia for osteomyelitis by Dr. Massey on 04/05/2018. Patient underwent wound VAC placement on 04/06/2018 2. Essential hypertension-blood pressure controlled, home medications continued with dose adjustment as needed 3. Dyslipidemia-patient is on statin therapy, continued at home dose 4. History of previous DVT and PE patient is on Coumadin was 2.1 on admission 2.3 as of 04/04/2018. It was held prior to surgery bridge with heparin subsequently monitoring INR. Patient did discuss the possibility of switching from Coumadin to 1 of the NOACs were discussed with case management around the insurance to examine cost. 5. Peripheral arterial disease 6. Renal failure do suspect acute renal failure possibly from dehydration baseline creatinine a year prior to his admission was within normal limits kidney function back to baseline 7. DVT prophylaxis patient is on systemic 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 with Coumadin no need for additional measures. Code Visit Inpatient E&M: 85383 Subs Hosp L2
[2018-04-08] MEDS: 0.9% NaCl Peripheral Flush Adult/Peds IV ×2 (10:30→10:37)
[2018-04-08 13:48] VITALS: BP 121/73; PULSE 91; RESP 16; TEMP 36.9; O2SAT 98
[2018-04-08] MEDS: Lactated Ringers 1,000 ML 60 ML IV (13:48)
[2018-04-08] MEDS: Atorvastatin Calcium 40 MG Tablet PO (21:12)
--- NOTE | 2018-04-08 21:18 | PN.SURG_ITS ---
Subjective: Postop #3 Patient is resting comfortably. - Physical Exam General: Alert, Oriented x3 HEENT: PERRLA, EOMI Oral: Moist Mucosa Neck: Supple Abdomen: Soft, Non-Distended Skin: Ulcer/ Wound - stump wound is stable. VAC in place. Minimal drainage in the canister. Neurological: Cranial nerves II-XII grossly intact Psych/Mental Status: Normal Affect, Appropriate Vital Signs Temp Pulse Resp BP Pulse Ox 98.4 F 91 16 121/73 H 98 04/08/18 13:48 04/08/18 13:48 04/08/18 13:48 04/08/18 13:48 04/08/18 13:48 Oxygen Delivery Method Room Air Weight: 190 lb Body Mass Index (BMI) 24.5 Intake and Output for Last 24 Hours 04/06/18 04/07/18 04/08/18 23:59 23:59 23:59 Intake Total 4574 / 4574 3993 / 3993 3627 / 3627 Output Total 2750 / 2750 2500 / 2500 2850 / 2850 Balance 1824 / 1824 1493 / 1493 777 / 777 Microbiology Past 72 Hours 04/05/18 11:00 Gram Stain - Final Tissue Ulcer - Leg Wound Culture - Final No growth aerobically. Anaerobic Culture - Preliminary No growth in 48 hours. 04/05/18 11:00 Gram Stain - Final Bone - Leg, Left Wound Culture - Final No growth aerobically. Anaerobic Culture - Preliminary No growth in 48 hours. Pathology - pending. Laboratory Tests Past 24 Hrs 04/08/18 04/08/18 04/08/18 05:12 05:12 05:12 WBC 9.9 RBC 3.32 L Hgb 10.7 L Hct 32.1 L MCV 96.7 H MCH 32.2 H MCHC 33.3 RDW 15.0 H RDW Differential 50.3 H Plt Count 246 MPV 9.7 PT 15.7 H INR 1.3 APTT 62.9 H Sodium 138 Potassium 4.2 Chloride 103 Carbon Dioxide 26.0 Anion Gap 9 BUN 10 Creatinine 1.15 Estim Creat Clear Calc 87.36 Est GFR (MDRD) Af Amer 86 Est GFR (MDRD) Non-Af 71 BUN/Creatinine Ratio 8.7 L Glucose 100 Calcium 8.8 Medical Necessity - Tobacco Use Smoking Status: Former smoker Assessment/Plan All Active Problems (Last Updated 02/21/18 @ 10:20 by Stella Zamora) Thrush, oral (Acute) Cellulitis (Acute) History of blood clots (Acute) Amputation, traumatic, leg (Acute) Limb weakness (Acute) Difficulty balancing (Acute) Chest pain (Acute) Migraines (Acute) Fatigue (Acute) SOB (shortness of breath) (Acute) Infection caused by Enterobacter cloacae (Acute) MSSA (methicillin susceptible Staphylococcus aureus) infection (Acute) Left foot pain (Acute) Left foot swelling (Acute) Left 3rd toe drainage (Acute) 1. Nonhealing ulcer left BKA stump. 2. Pain left BKA stump. 3. 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 4. 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 6. s/p surgical preparation left BKA stump with incision and drainage and excisional debridement nonhealing infected ulcer and partial ostectomy tibia for osteomyelitis. Wound is stable. VAC in place. Minimal drainage in the canister. Operative cultures are negative thus far. Continue IV Vancomycin, Levaquin, and Flagyl. A positive culture may necessitate antibiotic modification. If osteomyelitis is present, would need IV antibiotics custodial. With his history of infection, I anticipate at least 1-2 weeks of IV antibiotics with a PICC line placed. Pathology is pending. Prealbumin was 31.2. Encourage nutritional supplementation with protein to help the healing process. INR was 1.3. Continue to maximize Coumadin in preparation for discharge. Prior to revision of the amputation stump with readvancement of the muscle flap and partial ostectomy and secondary wound closure, will need Pathology report that is negative for osteomyelitis. Depending on the severity of the osteomyelitis and the proximal extent of the osteomyelitis, I may not be able to revise the left BKA stump if too much of the tibia has to be removed to control the osteomyelitis. If so, then would need to proceed to a left AKA. At the time of the wound closure surgery, it would be done under general anesthesia and tourniquet control with a surgical observation overnight stay in the hospital. A drain will be placed for several days. Tissue and bone will be sent to Pathology for analysis to rule out carcinoma and to evaluate for osteomyelitis. Tissue and bone will be sent to Microbiology for culture. A positive culture may necessitate antibiotic modification. After healing has occurred and the swelling is controlled with a stump home health lpn, then he can be evaluated with his [employer] for revision of his prosthesis. Would like to have HBO treatments prior to revision of the amputation stump flap.
[2018-04-08 21:19] VITALS: BP 126/77; PULSE 88; RESP 18; TEMP 36.7; O2SAT 97
[2018-04-08 22:20] LABS: Vancomycin, Trough Level 25.6 ug/mL (5.0-15.0)
[2018-04-09] MEDS: HEPARIN/D5w 25,000 UNITS 25,000 UNITS/250 ML IV.SOLN. 12 UNITS IV (02:07)
[2018-04-09] MEDS: HYDROmorphone 1 MG/ML Syringe 2 MG IV ×3 (02:08→20:39)
[2018-04-09 02:10] VITALS: BP 126/85; PULSE 97; RESP 18; TEMP 36.7; O2SAT 98
--- NOTE | 2018-04-09 03:54 | PCM.RX.CS ---
Consult Pharmacy has been consulted to manage selected antiobiotic: Vancomycin Type of Consult: Follow-up Suspected Infection: Osteomyelitis Labs: Sodium 138 mmol/L (136-145) 04/08/18 05:12 Potassium 4.2 mmol/L (3.5-5.1) 04/08/18 05:12 Chloride 103 mmol/L (98-107) 04/08/18 05:12 Carbon Dioxide 26.0 mmol/L (21.0-32.0) 04/08/18 05:12 Anion Gap 9 (5-15) 04/08/18 05:12 BUN 10 mg/dL (7-18) 04/08/18 05:12 Creatinine 1.15 mg/dL (0.70-1.30) 04/08/18 05:12 Est GFR (MDRD) Af Amer 86 mL/min (>60) 04/08/18 05:12 Est GFR (MDRD) Non-Af 71 mL/min (>60) 04/08/18 05:12 BUN/Creatinine Ratio 8.7 RATIO (10-20) L 04/08/18 05:12 Glucose 100 mg/dL (74-106) 04/08/18 05:12 Vancomycin Trough 25.6 ug/mL (5.0-15.0) H 04/08/18 21:25 Microbiology: Microbiology 04/05/18 11:00 Tissue Ulcer - Leg Gram Stain - Final 04/05/18 11:00 Tissue Ulcer - Leg Wound Culture - Final No growth aerobically. 04/05/18 11:00 Tissue Ulcer - Leg Anaerobic Culture - Preliminary No growth in 48 hours. 04/05/18 11:00 Bone - Leg, Left Gram Stain - Final 04/05/18 11:00 Bone - Leg, Left Wound Culture - Final No growth aerobically. 04/05/18 11:00 Bone - Leg, Left Anaerobic Culture - Preliminary No growth in 48 hours. Goal Trough: 15-20 mcg/mL Pharmacy Plan for Drug Dosing: Pharmacy Service will continue to monitor and adjust dosing as required. TROUGH 25.6. HOLD NEXT DOSE AND REDRAW LAB Follow-Up Labs: Trough Vancomycin Labs to be done on [date and time ordered]: 04/09 @ 1600
[2018-04-09 05:35] LABS: Hematocrit 31.6 % (40-54); Hemoglobin 10.3 g/dl (13.0-16.5); Mean Corp Hgb Conc 32.6 g/gl (32-36); Mean Corpuscular Hgb 31.7 pg (27.0-32.0); Mean Corpuscular Volume 97.2 fL (80-94); Mean Platelet Vol. 9.7 fl (6.2-12.0); Platelet Count 250 K/mm3 (150-450); RBC Distribution Width CV 15.2 % (11.6-14.6); RBC Distribution Width SD 51.4 fl (35.1-43.9); Red Blood Count 3.25 M/mm3 (4.6-6.2); White Blood Count 8.1 K/mm3 (4.4-11.0)
[2018-04-09 05:38] LABS: International Normalized Ratio 1.4; Prothrombin Time (Protime)PT. 16.8 SECONDS (11.7-14.9)
[2018-04-09 05:39] LABS: Partial Thromboplast Time 63.5 Seconds (24.1-36.2)
[2018-04-09 05:49] LABS: Anion Gap 7 (5-15); BUN 12 mg/dL (7-18); BUN/Creat Ratio 9.8 RATIO (10-20); Calcium,Total 8.7 mg/dL (8.5-10.1); Chloride 104 mmol/L (98-107); Creatinine, Serum 1.23 mg/dL (0.70-1.30); EST Glomerular Filtration Rate 66 mL/min (>60); Est Glom Filt Rate - Afr Amer 79 mL/min (>60); Estimated Creatinine Clearance 81.68 ml/min; Glucose 106 mg/dL (74-106); Potassium 4.2 mmol/L (3.5-5.1); Sodium Level 139 mmol/L (136-145)
[2018-04-09 06:05] LABS: Scan Indicated on CBC? Y/N NO
[2018-04-09] MEDS: Lactated Ringers 1,000 ML 60 ML IV ×2 (06:19→21:55)
--- NOTE | 2018-04-09 08:00 | PN_ITS ---
Subjective: Chief complaint: Follow-up after consultation for postoperative medical management. Patient seen and examined. No acute events overnight. This morning, patient complains of oral thrush and he mentioned that he gets thrush always after surgeries. Left knee pain is well controlled. Denies chest pain or shortness of breath. Denies fever or chills. His vital signs are stable. - Physical Exam General: Alert, Oriented x3, Cooperative, No apparent distress HEENT: Atraumatic, PERRLA, EOMI, Normocephalic Oral: Moist Mucosa, No Gingival or Mucosal Lesions/ Ulcerations Neck: Supple, No JVD, Negative Carotid Bruits, Trachea Midline, Thyroid Normal Size and Texture Lungs: Clear to auscultation, No rhonchi, No wheeze, No rales, Diminished Cardiovascular: Regular rate, Regular Rhythm, Normal S1, Normal S2, PMI Normal Abdomen: Bowel Sounds Present, Soft, Non Tender, Non-Distended, No Hepato- splenomegaly Extremities: No clubbing, No cyanosis, No edema, - - Below left knee amputation. Skin: No rashes, No breakdown Lymphatic: No Cervical, Supraclavicular, or Inguinal Adenopathy Neurological: Cranial nerves II-XII grossly intact, Motor Exam 5/5 strength throughout Psych/Mental Status: Normal Affect, Appropriate, Alert and oriented to time, place, person, mood and affect Vital Signs Temp Pulse Resp BP Pulse Ox 98.0 F 97 18 126/85 H 98 04/09/18 02:10 04/09/18 02:10 04/09/18 02:10 04/09/18 02:10 04/09/18 02:10 Oxygen Delivery Method Room Air Weight: 190 lb Body Mass Index (BMI) 24.5 Intake and Output for Last 24 Hours 04/07/18 04/08/18 04/09/18 23:59 23:59 23:59 Intake Total 3993 / 3993 3627 / 3627 2138 / 2138 Output Total 2500 / 2500 2850 / 2850 1999 / 1999 Balance 1493 / 1493 777 / 777 138 / 138 Microbiology Past 72 Hours 04/05/18 11:00 Gram Stain - Final Tissue Ulcer - Leg Wound Culture - Final No growth aerobically. Anaerobic Culture - Final No growth in 5 days. 04/05/18 11:00 Gram Stain - Final Bone - Leg, Left Wound Culture - Final No growth aerobically. Anaerobic Culture - Final No growth in 5 days. Laboratory Tests Past 24 Hrs 04/08/18 04/09/18 04/09/18 21:25 04:54 04:54 WBC 8.1 RBC 3.25 L Hgb 10.3 L Hct 31.6 L MCV 97.2 H MCH 31.7 MCHC 32.6 RDW 15.2 H RDW Differential 51.4 H Plt Count 250 MPV 9.7 PT 16.8 H INR 1.4 APTT 63.5 H Sodium Potassium Chloride Carbon Dioxide Anion Gap BUN Creatinine Estim Creat Clear Calc Est GFR (MDRD) Af Amer Est GFR (MDRD) Non-Af BUN/Creatinine Ratio Glucose Calcium Vancomycin Trough 25.6 H 04/09/18 04:54 WBC RBC Hgb Hct MCV MCH MCHC RDW RDW Differential Plt Count MPV PT INR APTT Sodium 139 Potassium 4.2 Chloride 104 Carbon Dioxide 28.0 Anion Gap 7 BUN 12 Creatinine 1.23 Estim Creat Clear Calc 81.68 Est GFR (MDRD) Af Amer 79 Est GFR (MDRD) Non-Af 66 BUN/Creatinine Ratio 9.8 L Glucose 106 Calcium 8.7 Vancomycin Trough Medical Necessity - Tobacco Use Smoking Status: Former smoker Assessment/Plan All Active Problems (Last Updated 02/21/18 @ 10:20 by Stella Zamora) Thrush, oral (Acute) This is a 52 years old male patient admitted for nonhealing painful ulcer of the left BKA stump with associated osteomyelitis, underwent incision, drainage and excisional debridement of the nonhealing left BKA infected ulcer and partial ostectomy of the left tibia for osteomyelitis. #1 nonhealing infected left BKA stump ulcer/osteomyelitis of the stump and tibia: Status post incision, drainage and excisional debridement of the nonhealing ulcer as well as partial ostectomy of the left tibia, postoperative day 4. He is on IV Levaquin and vancomycin. His vital signs are stable, afebrile. Left leg ulcer culture showed no growth in 5 days. Bone culture of the left tibia again showed no growth in 5 days. Left knee pain is well controlled. Routine blood work was remarkable for hemoglobin of 10.3 g/dL, otherwise normal. Dr. Massey is managing. #2 anemia: This is fairly acute. It is likely because of blood loss during surgery. Before this admission, hemoglobin normal with range of 13-15 g/dL. At this time, no evidence of active bleeding, no indication for blood transfusion. #3 renal insufficiency: Unclear if this is acute or chronic. On admission, creatinine was 1.31. In the past, creatinine has been fluctuating from normal to up to 1.66 mg/dL. Patient has been on IV fluids and today's creatinine is 1.23, stable. #4 hypertension: Blood pressure stable, continue Coreg and lisinopril. #5 history of PE/DVT: He is on IV heparin drip for bridging, on Coumadin. INR still subtherapeutic at 1.4 today. Plan to discuss with the telehealth case manager to get pricing on Xarelto. #6 hyperlipidemia: Continue statins. #7 peripheral vascular disease: Stable, no acute issues. #8 DVT prophylaxis: He is on IV heparin drip. This note was generated with [employer] dictation software. It may contain incorrect words, spelling, and punctuation that were not noted in checking the note before signing. Code Visit Inpatient E&M: 36559 Subs Hosp L2
[2018-04-09] MEDS: Gabapentin 600 MG Tablet 1800 MG PO ×2 (08:39→17:13)
[2018-04-09] MEDS: oxyCODONE 5 MG Tablet 10 MG PO ×2 (08:39→14:49)
[2018-04-09 08:40] VITALS: BP 136/97; PULSE 91; RESP 18; TEMP 36.7; O2SAT 98
[2018-04-09] MEDS: Carvedilol 12.5 MG Tablet PO (08:40)
[2018-04-09] MEDS: Lisinopril 20 MG Tablet PO (08:40)
--- NOTE | 2018-04-09 08:51 | NURSING ---
wound photo: left stump
[2018-04-09] MEDS: NYSTATIN 500,000 UNIT/5 ML UDC 500000 UNIT PO ×4 (10:19→21:55)
[2018-04-09] MEDS: levoFLOXacin IV 500 MG/100 ML BAG 100 MG IV (10:19)
--- NOTE | 2018-04-09 12:56 | CASEMGMT ---
Per Dr. Baird, pt to be sent home on Xarelto and pt is worried about co-pay at this time. Xarelto e-scribed to [facility] and call to pharmacist and he states that pt has $0 co-pay at this time for Xarelto. Dr. Baird aware at this time. Mary SEXTON CM
[2018-04-09 14:50] VITALS: BP 165/87; PULSE 87; RESP 18; TEMP 37.1; O2SAT 100
[2018-04-09 16:59] LABS: Vancomycin, Random Level 20.9 ug/mL (0.0-15.0)
[2018-04-09] MEDS: 0.9% NaCl Peripheral Flush Adult/Peds IV (17:13)
[2018-04-09] MEDS: Rivaroxaban 20 MG Tablet PO (17:13)
[2018-04-09 20:46] VITALS: BP 151/91; PULSE 89; RESP 18; TEMP 36.9; O2SAT 97
[2018-04-09] MEDS: Docusate Sodium 100 MG Capsule PO (21:54)
[2018-04-09] MEDS: Atorvastatin Calcium 40 MG Tablet PO (21:55)
--- NOTE | 2018-04-09 23:08 | PCM.PN.SRG ---
Subjective: Postop #4 Patient is resting comfortably. VAC was changed today. - Physical Exam General: Alert, Oriented x3 HEENT: PERRLA, EOMI Oral: Moist Mucosa Neck: Supple Abdomen: Soft, Non-Distended Skin: Ulcer/ Wound - wound is stable. No bleeding noted. VAC reapplied. Neurological: Cranial nerves II-XII grossly intact Psych/Mental Status: Normal Affect, Appropriate Vital Signs Temp Pulse Resp BP Pulse Ox 98.5 F 89 18 151/91 H 97 04/09/18 20:46 04/09/18 20:46 04/09/18 20:46 04/09/18 20:46 04/09/18 20:46 Oxygen Delivery Method Room Air Weight: 190 lb Body Mass Index (BMI) 24.5 Intake and Output for Last 24 Hours 04/07/18 04/08/18 04/09/18 23:59 23:59 23:59 Intake Total 3993 / 3993 3627 / 3627 2738 / 2738 Output Total 2500 / 2500 2850 / 2850 3400 / 3400 Balance 1493 / 1493 777 / 777 -662 / -662 Microbiology Past 72 Hours 04/05/18 11:00 Gram Stain - Final Tissue Ulcer - Leg Wound Culture - Final No growth aerobically. Anaerobic Culture - Final No growth in 5 days. 04/05/18 11:00 Gram Stain - Final Bone - Leg, Left Wound Culture - Final No growth aerobically. Anaerobic Culture - Final No growth in 5 days. Pathology - pending. Laboratory Tests Past 24 Hrs 04/09/18 04/09/18 04/09/18 04:54 04:54 04:54 WBC 8.1 RBC 3.25 L Hgb 10.3 L Hct 31.6 L MCV 97.2 H MCH 31.7 MCHC 32.6 RDW 15.2 H RDW Differential 51.4 H Plt Count 250 MPV 9.7 PT 16.8 H INR 1.4 APTT 63.5 H Sodium 139 Potassium 4.2 Chloride 104 Carbon Dioxide 28.0 Anion Gap 7 BUN 12 Creatinine 1.23 Estim Creat Clear Calc 81.68 Est GFR (MDRD) Af Amer 79 Est GFR (MDRD) Non-Af 66 BUN/Creatinine Ratio 9.8 L Glucose 106 Calcium 8.7 Random Vancomycin 04/09/18 16:02 WBC RBC Hgb Hct MCV MCH MCHC RDW RDW Differential Plt Count MPV PT INR APTT Sodium Potassium Chloride Carbon Dioxide Anion Gap BUN Creatinine Estim Creat Clear Calc Est GFR (MDRD) Af Amer Est GFR (MDRD) Non-Af BUN/Creatinine Ratio Glucose Calcium Random Vancomycin 20.9 H Medical Necessity - Tobacco Use Smoking Status: Former smoker Assessment/Plan All Active Problems (Last Updated 04/09/18 @ 09:50 by Gustavo Baird MD) Thrush, oral (Acute) 1. Nonhealing ulcer left BKA stump. 2. Pain left BKA stump. 3. 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 4. 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 5. longterm use of anticoagulation. 6. s/p surgical preparation left BKA stump with incision and drainage and excisional debridement nonhealing infected ulcer and partial ostectomy tibia for osteomyelitis. Wound is stable. VAC in place. Minimal drainage in the canister. Operative cultures are negative thus far. Continue IV Vancomycin, Levaquin, and Flagyl. A positive culture may necessitate antibiotic modification. If osteomyelitis is present, would need IV antibiotics mcc. With his history of infection, I anticipate at least 1-2 weeks of IV antibiotics with a PICC line placed. Pathology is pending. Prealbumin was 31.2. Encourage nutritional supplementation with protein to help the healing process. INR was 1.4. Continue to maximize Coumadin in preparation for discharge. Prior to revision of the amputation stump with readvancement of the muscle flap and partial ostectomy and secondary wound closure, will need Pathology report that is negative for osteomyelitis. Depending on the severity of the osteomyelitis and the proximal extent of the osteomyelitis, I may not be able to revise the left BKA stump if too much of the tibia has to be removed to control the osteomyelitis. If so, then would need to proceed to a left AKA. At the time of the wound closure surgery, it would be done under general anesthesia and tourniquet control with a surgical observation overnight stay in the hospital. A drain will be placed for several days. Tissue and bone will be sent to Pathology for analysis to rule out carcinoma and to evaluate for osteomyelitis. Tissue and bone will be sent to Microbiology for culture. A positive culture may necessitate antibiotic modification. After healing has occurred and the swelling is controlled with a stump enamel pulverizer, then he can be evaluated with his [employer] for revision of his prosthesis. Would like to have HBO treatments prior to revision of the amputation stump flap.
[2018-04-10] MEDS: oxyCODONE 5 MG Tablet 10 MG PO ×4 (00:14→20:28)
[2018-04-10 02:17] VITALS: BP 113/78; PULSE 97; RESP 16; TEMP 36.6; O2SAT 97
[2018-04-10] MEDS: HYDROmorphone 1 MG/ML Syringe 2 MG IV ×2 (06:12→15:09)
[2018-04-10] MEDS: Gabapentin 600 MG Tablet 1800 MG PO ×2 (07:58→16:54)
--- NOTE | 2018-04-10 07:58 | PCM.PROGNOTE ---
Subjective: Chief complaint: Follow-up after consultation for postoperative medical management. Patient seen and examined. No acute events overnight. Left knee pain got worse last night, received IV Dilaudid. This morning, left knee pain is improving. Denied any other complaints. Vitals are stable. - Physical Exam General: Alert, Oriented x3, Cooperative, No apparent distress HEENT: Atraumatic, PERRLA, EOMI, Normocephalic Oral: Moist Mucosa, No Gingival or Mucosal Lesions/ Ulcerations Neck: Supple, No JVD, Negative Carotid Bruits, Trachea Midline, Thyroid Normal Size and Texture Lungs: Clear to auscultation, No rhonchi, No wheeze, No rales, Diminished Cardiovascular: Regular rate, Regular Rhythm, Normal S1, Normal S2, PMI Normal Abdomen: Bowel Sounds Present, Soft, Non Tender, Non-Distended, No Hepato-splenomegaly Extremities: No clubbing, No cyanosis, No edema Skin: No rashes, No breakdown Lymphatic: No Cervical, Supraclavicular, or Inguinal Adenopathy Neurological: Cranial nerves II-XII grossly intact, Neuro grossly intact Psych/Mental Status: Normal Affect, Appropriate, Alert and oriented to time, place, person, mood and affect Vital Signs Temp Pulse Resp BP Pulse Ox 97.9 F 97 16 113/78 97 04/10/18 02:17 04/10/18 02:17 04/10/18 02:17 04/10/18 02:17 04/10/18 02:17 Oxygen Delivery Method Room Air Weight: 190 lb Body Mass Index (BMI) 24.5 Intake and Output for Last 24 Hours 04/08/18 04/09/18 04/10/18 23:59 23:59 23:59 Intake Total 3627 / 3627 2738 / 2738 2170 / 2170 Output Total 2850 / 2850 3400 / 3400 3125 / 3125 Balance 777 / 777 -662 / -662 -955 / -955 Microbiology Past 72 Hours 04/05/18 11:00 Gram Stain - Final Tissue Ulcer - Leg Wound Culture - Final No growth aerobically. Anaerobic Culture - Final No growth in 5 days. 04/05/18 11:00 Gram Stain - Final Bone - Leg, Left Wound Culture - Final No growth aerobically. Anaerobic Culture - Final No growth in 5 days. 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 #1 nonhealing infected left BKA stump ulcer/osteomyelitis of the stump and tibia: Status post incision, drainage and excisional debridement of the nonhealing ulcer as well as partial ostectomy of the left tibia, postoperative day 5. He is on IV Levaquin, Flagyl and vancomycin. His vital signs remained stable, afebrile. Left leg ulcer culture showed no growth in 5 days. Bone culture of the left tibia again showed no growth in 5 days. Plan to continue same treatment, Dr. Massey is managing. #2 anemia: This is fairly acute. Hemoglobin and hematocrit remained stable. It is likely because of blood loss during surgery. Before this admission, hemoglobin normal with range of 13-15 g/dL. At this time, no evidence of active bleeding, no indication for blood transfusion. #3 renal insufficiency: Unclear if this is acute or chronic. On admission, creatinine was 1.31. In the past, creatinine has been fluctuating from normal to up to 1.66 mg/dL. Yesterday's creatinine was 1.23, stable. #4 hypertension: Blood pressure stable, continue Coreg and lisinopril. #5 history of PE/DVT: Started on Xarelto yesterday. IV heparin and Coumadin discontinued. After we contacted the insurance company and they stated his copayment for Xarelto is $0, he called his insurance company yesterday and he was informed that he got the discounted prescription and he is not eligible for any more discounts and his insurance company will not pay for Xarelto. Plan to discuss again with the immigration case manager to see if he has any other options and if not, we will need to go back on Coumadin for anticoagulation. #6 hyperlipidemia: Continue statins. #7 peripheral vascular disease: Stable, no acute issues. #8 DVT prophylaxis: Continue Xarelto. This note was generated with [employer] dictation software. It may contain incorrect words, spelling, and punctuation that were not noted in checking the note before signing. Code Visit Inpatient E&M: 50908 Subs Hosp L2
[2018-04-10] MEDS: Carvedilol 12.5 MG Tablet PO (07:59)
[2018-04-10] MEDS: Lisinopril 20 MG Tablet PO (07:59)
[2018-04-10 08:00] VITALS: BP 127/80; PULSE 88; RESP 16; TEMP 35.9; O2SAT 97
--- NOTE | 2018-04-10 08:03 | PN_ITS ---
Subjective: Chief complaint: Follow-up after consultation for postoperative medical management. Patient seen and examined. No acute events overnight. Left knee pain got worse last night, received IV Dilaudid. This morning, left knee pain is improving. Denied any other complaints. Vitals are stable. - Physical Exam General: Alert, Oriented x3, Cooperative, No apparent distress HEENT: Atraumatic, PERRLA, EOMI, Normocephalic Oral: Moist Mucosa, No Gingival or Mucosal Lesions/ Ulcerations Neck: Supple, No JVD, Negative Carotid Bruits, Trachea Midline, Thyroid Normal Size and Texture Lungs: Clear to auscultation, No rhonchi, No wheeze, No rales, Diminished Cardiovascular: Regular rate, Regular Rhythm, Normal S1, Normal S2, PMI Normal Abdomen: Bowel Sounds Present, Soft, Non Tender, Non-Distended, No Hepato- splenomegaly Extremities: No clubbing, No cyanosis, No edema Skin: No rashes, No breakdown Lymphatic: No Cervical, Supraclavicular, or Inguinal Adenopathy Neurological: Cranial nerves II-XII grossly intact, Neuro grossly intact Psych/Mental Status: Normal Affect, Appropriate, Alert and oriented to time, place, person, mood and affect Vital Signs Temp Pulse Resp BP Pulse Ox 97.9 F 97 16 113/78 97 04/10/18 02:17 04/10/18 02:17 04/10/18 02:17 04/10/18 02:17 04/10/18 02:17 Oxygen Delivery Method Room Air Weight: 190 lb Body Mass Index (BMI) 24.5 Intake and Output for Last 24 Hours 04/08/18 04/09/18 04/10/18 23:59 23:59 23:59 Intake Total 3627 / 3627 2738 / 2738 2170 / 2170 Output Total 2850 / 2850 3400 / 3400 3125 / 3125 Balance 777 / 777 -662 / -662 -955 / -955 Microbiology Past 72 Hours 04/05/18 11:00 Gram Stain - Final Tissue Ulcer - Leg Wound Culture - Final No growth aerobically. Anaerobic Culture - Final No growth in 5 days. 04/05/18 11:00 Gram Stain - Final Bone - Leg, Left Wound Culture - Final No growth aerobically. Anaerobic Culture - Final No growth in 5 days. 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 #1 nonhealing infected left BKA stump ulcer/osteomyelitis of the stump and tibia: Status post incision, drainage and excisional debridement of the nonhealing ulcer as well as partial ostectomy of the left tibia, postoperative day 5. He is on IV Levaquin, Flagyl and vancomycin. His vital signs remained stable, afebrile. Left leg ulcer culture showed no growth in 5 days. Bone culture of the left tibia again showed no growth in 5 days. Plan to continue same treatment, Dr. Massey is managing. #2 anemia: This is fairly acute. Hemoglobin and hematocrit remained stable. It is likely because of blood loss during surgery. Before this admission, hemoglobin normal with range of 13-15 g/dL. At this time, no evidence of active bleeding, no indication for blood transfusion. #3 renal insufficiency: Unclear if this is acute or chronic. On admission, creatinine was 1.31. In the past, creatinine has been fluctuating from normal to up to 1.66 mg/dL. Yesterday's creatinine was 1.23, stable. #4 hypertension: Blood pressure stable, continue Coreg and lisinopril. #5 history of PE/DVT: Started on Xarelto yesterday. IV heparin and Coumadin discontinued. After we contacted the insurance company and they stated his copayment for Xarelto is $0, he called his insurance company yesterday and he was informed that he got the discounted prescription and he is not eligible for any more discounts and his insurance company will not pay for Xarelto. Plan to discuss again with the protective services case worker to see if he has any other options and if not, we will need to go back on Coumadin for anticoagulation. #6 hyperlipidemia: Continue statins. #7 peripheral vascular disease: Stable, no acute issues. #8 DVT prophylaxis: Continue Xarelto. This note was generated with [employer] dictation software. It may contain incorrect words, spelling, and punctuation that were not noted in checking the note before signing. Code Visit Inpatient E&M: 67260 Subs Hosp L2
[2018-04-10 08:20] LABS: Vancomycin, Random Level 12.3 ug/mL (0.0-15.0)
[2018-04-10] MEDS: NYSTATIN 500,000 UNIT/5 ML UDC 500000 UNIT PO ×4 (09:39→22:09)
[2018-04-10] MEDS: levoFLOXacin IV 500 MG/100 ML BAG 100 MG IV (09:39)
--- NOTE | 2018-04-10 09:46 | NURSING ---
PT STATED THAT HE WANTS TO STAY ON COUMADIN. TXT DR EDWARDSAH AND LET HIM KNOW PT WANTS TO STAY ON COUMADIN.
[2018-04-10 11:42] VITALS: BP 113/71; PULSE 88; RESP 16; TEMP 36.1; O2SAT 99
[2018-04-10] MEDS: 0.9% NaCl IVPB Med Flush (250 mL) 15 ML IV (13:52)
[2018-04-10] MEDS: Lactated Ringers 1,000 ML 60 ML IV (14:31)
[2018-04-10 15:02] VITALS: BP 121/74; PULSE 81; RESP 16; TEMP 36.8; O2SAT 99
--- NOTE | 2018-04-10 16:27 | CASEMGMT ---
[facility] and [facility] updated regarding discharge plan. Awaiting script for IV ATBs to complete IV ATB setup with [facility]. HHC still pending with [facility], updated with potential discharge date. RN CM to follow-up with [facility] and [facility]. RN CM to continue to follow this patient and plan for a safe discharge.
[2018-04-10] MEDS: Enoxaparin 80 MG/0.8 ML Syringe SC (16:54)
[2018-04-10 20:30] VITALS: BP 134/71; PULSE 88; RESP 18; TEMP 36.9; O2SAT 97
[2018-04-10] MEDS: Atorvastatin Calcium 40 MG Tablet PO (22:09)
--- NOTE | 2018-04-10 23:01 | PCM.PN.SRG ---
Subjective: Postop #5 Patient is resting comfortably. - Physical Exam General: Alert, Oriented x3 HEENT: PERRLA, EOMI Oral: Moist Mucosa Neck: Supple Abdomen: Soft, Non-Distended Skin: Ulcer/ Wound - wound is stable. VAC in place. Minimal drainage in the canister. Neurological: Cranial nerves II-XII grossly intact Psych/Mental Status: Normal Affect, Appropriate Vital Signs Temp Pulse Resp BP Pulse Ox 98.5 F 88 18 134/71 H 97 04/10/18 20:30 04/10/18 20:30 04/10/18 20:30 04/10/18 20:30 04/10/18 20:30 Oxygen Delivery Method Room Air Weight: 190 lb Body Mass Index (BMI) 24.5 Intake and Output for Last 24 Hours 04/08/18 04/09/18 04/10/18 23:59 23:59 23:59 Intake Total 3627 / 3627 2738 / 2738 4130 / 4130 Output Total 2850 / 2850 3400 / 3400 4625 / 4625 Balance 777 / 777 -662 / -662 -495 / -495 Microbiology Past 72 Hours 04/05/18 11:00 Gram Stain - Final Tissue Ulcer - Leg Wound Culture - Final No growth aerobically. Anaerobic Culture - Final No growth in 5 days. 04/05/18 11:00 Gram Stain - Final Bone - Leg, Left Wound Culture - Final No growth aerobically. Anaerobic Culture - Final No growth in 5 days. Pathology - pending. Laboratory Tests Past 24 Hrs 04/10/18 07:20 Random Vancomycin 12.3 Medical Necessity - Tobacco Use Smoking Status: Former smoker Assessment/Plan All Active Problems (Last Updated 04/09/18 @ 09:50 by Gustavo Baird MD) Thrush, oral (Acute) 1. Nonhealing ulcer left BKA stump. 2. Pain left BKA stump. 3. 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 4. 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 5. rn long term care use of anticoagulation. 6. s/p surgical preparation left BKA stump with incision and drainage and excisional debridement nonhealing infected ulcer and partial ostectomy tibia for osteomyelitis. Wound is stable. VAC in place. Minimal drainage in the canister. Operative cultures are negative. The Vancomycin has been stopped. He is on Levaquin and Flagyl. Pathology is pending. If Pathology shows osteomyelitis, will need IV antibiotics. Otherwise, can send home on oral antibiotics. Would leave the PICC line in until the Pathology is available. If necessary, can set up IV antibiotics as an outpatient if necessary. If Pathology is negative, will pull the PICC line as an outpatient. Prealbumin was 31.2. Encourage nutritional supplementation with protein to help the healing process. INR was 1.4. Presently on Coumadin. The INR is taking its time getting to a therapeutic level. Discussed with the Hospitalist Service. Can send him home on Lovenox for bridging until the INR is therapeutic. Will check INR on a weekly basis as an outpatient. He states his Project Superintendent manages the Coumadin as an outpatient. Anticipate discharge tomorrow. Prior to revision of the amputation stump with readvancement of the muscle flap and partial ostectomy and secondary wound closure, will need Pathology report that is negative for osteomyelitis. Depending on the severity of the osteomyelitis and the proximal extent of the osteomyelitis, I may not be able to revise the left BKA stump if too much of the tibia has to be removed to control the osteomyelitis. If so, then would need to proceed to a left AKA. At the time of the wound closure surgery, it would be done under general anesthesia and tourniquet control with a surgical observation overnight stay in the hospital. A drain will be placed for several days. Tissue and bone will be sent to Pathology for analysis to rule out carcinoma and to evaluate for osteomyelitis. Tissue and bone will be sent to Microbiology for culture. A positive culture may necessitate antibiotic modification. After healing has occurred and the swelling is controlled with a stump vocational trainer, then he can be evaluated with his [employer] for revision of his prosthesis. Would like to have HBO treatments prior to revision of the amputation stump flap.
[2018-04-11] MEDS: oxyCODONE 5 MG Tablet 10 MG PO ×5 (00:43→20:04)
[2018-04-11 02:16] VITALS: BP 120/83; PULSE 95; RESP 18; TEMP 36.6; O2SAT 100
[2018-04-11] MEDS: Enoxaparin 80 MG/0.8 ML Syringe SC ×2 (05:57→16:56)
[2018-04-11] MEDS: 0.9% NaCl Peripheral Flush Adult/Peds IV ×3 (05:57→15:08)
[2018-04-11 06:41] LABS: International Normalized Ratio 1.4; Prothrombin Time (Protime)PT. 17.5 SECONDS (11.7-14.9)
[2018-04-11 07:26] VITALS: BP 133/88; PULSE 89; RESP 16; TEMP 36.4; O2SAT 100
[2018-04-11] MEDS: Lactated Ringers 1,000 ML 60 ML IV (07:31)
[2018-04-11] MEDS: Gabapentin 600 MG Tablet 1800 MG PO ×2 (07:31→16:52)
[2018-04-11] MEDS: Carvedilol 12.5 MG Tablet PO (07:32)
[2018-04-11] MEDS: Lisinopril 20 MG Tablet PO (07:32)
--- NOTE | 2018-04-11 07:55 | PCM.PROGNOTE ---
Subjective: Chief complaint: Follow-up after consultation for postoperative medical management. Patient seen and examined. No acute events overnight. He denied any significant complaints. His vital signs are stable. - Physical Exam General: Alert, Oriented x3, Cooperative, No apparent distress HEENT: Atraumatic, PERRLA, EOMI, Normocephalic Oral: Moist Mucosa, No Gingival or Mucosal Lesions/ Ulcerations Neck: Supple, No JVD, Negative Carotid Bruits Lungs: Clear to auscultation, Normal air movement, No rhonchi, No wheeze, No rales Cardiovascular: Regular rate, Regular Rhythm, Normal S1, Normal S2, PMI Normal Abdomen: Bowel Sounds Present, Soft, Non Tender, Non-Distended, No Hepato-splenomegaly Extremities: No clubbing, No cyanosis, No edema, - - Status post below left knee amputation. Skin: No rashes, No breakdown Lymphatic: No Cervical, Supraclavicular, or Inguinal Adenopathy Neurological: Cranial nerves II-XII grossly intact, Motor Exam 5/5 strength throughout Psych/Mental Status: Normal Affect, Appropriate, Alert and oriented to time, place, person, mood and affect Vital Signs Temp Pulse Resp BP Pulse Ox 97.6 F L 89 16 133/88 H 100 04/11/18 07:26 04/11/18 07:26 04/11/18 07:26 04/11/18 07:26 04/11/18 07:26 Oxygen Delivery Method Room Air Weight: 190 lb Body Mass Index (BMI) 24.5 Intake and Output for Last 24 Hours 04/09/18 04/10/18 04/11/18 23:59 23:59 23:59 Intake Total 2738 / 2738 4130 / 4130 2316 / 2316 Output Total 3400 / 3400 4625 / 4625 2450 / 2450 Balance -662 / -662 -495 / -495 -134 / -134 Microbiology Past 72 Hours 04/05/18 11:00 Gram Stain - Final Tissue Ulcer - Leg Wound Culture - Final No growth aerobically. Anaerobic Culture - Final No growth in 5 days. 04/05/18 11:00 Gram Stain - Final Bone - Leg, Left Wound Culture - Final No growth aerobically. Anaerobic Culture - Final No growth in 5 days. Laboratory Tests Past 24 Hrs 04/10/18 04/11/18 07:20 06:06 PT 17.5 H INR 1.4 Random Vancomycin 12.3 Medical Necessity - Tobacco Use Smoking Status: Former smoker Assessment/Plan All Active Problems (Last Updated 04/09/18 @ 09:50 by Gustavo Baird MD) Thrush, oral (Acute) This is a 52 years old male patient admitted for nonhealing painful ulcer of the left BKA stump with associated osteomyelitis, underwent incision, drainage and excisional debridement of the nonhealing left BKA infected ulcer and partial ostectomy of the left tibia for osteomyelitis. #1 nonhealing infected left BKA stump ulcer/osteomyelitis of the stump and tibia: Status post incision, drainage and excisional debridement of the nonhealing ulcer as well as partial ostectomy of the left tibia, postoperative day 6. He is on IV Levaquin and Flagyl. His vital signs remained stable, afebrile. Left leg ulcer culture showed no growth in 5 days. Bone culture of the left tibia again showed no growth in 5 days. Plan to continue same treatment, Dr. Massey is managing. #2 anemia: This is fairly acute. Hemoglobin and hematocrit remained stable. It is likely because of blood loss during surgery. Before this admission, hemoglobin normal with range of 13-15 g/dL. At this time, no evidence of active bleeding, no indication for blood transfusion. He is asymptomatic. #3 renal insufficiency: Unclear if this is acute or chronic. On admission, creatinine was 1.31. In the past, creatinine has been fluctuating from normal to up to 1.66 mg/dL. Most recent creatinine was 1.23, stable. #4 hypertension: Blood pressure stable, continue Coreg and lisinopril. #5 history of PE/DVT: He was started back on Coumadin with subcu Lovenox twice daily for bridging. Today's INR is 1.4, still subtherapeutic. Plan to discharge patient on Coumadin with Lovenox for bridging, repeat INR daily until INR is between 2 and 3 and then DC Lovenox and continue Coumadin. Prescription for Lovenox done. #6 hyperlipidemia: Continue statins. #7 peripheral vascular disease: Stable, no acute issues. #8 DVT prophylaxis: Continue Lovenox and Coumadin. INR is 1.4. This note was generated with [employer] software. It may contain incorrect words, spelling, and punctuation that were not noted in checking the note before signing. Code Visit Inpatient E&M: 95874 Subs Hosp L2
--- NOTE | 2018-04-11 07:58 | PN_ITS ---
Subjective: Chief complaint: Follow-up after consultation for postoperative medical management. Patient seen and examined. No acute events overnight. He denied any significant complaints. His vital signs are stable. - Physical Exam General: Alert, Oriented x3, Cooperative, No apparent distress HEENT: Atraumatic, PERRLA, EOMI, Normocephalic Oral: Moist Mucosa, No Gingival or Mucosal Lesions/ Ulcerations Neck: Supple, No JVD, Negative Carotid Bruits Lungs: Clear to auscultation, Normal air movement, No rhonchi, No wheeze, No rales Cardiovascular: Regular rate, Regular Rhythm, Normal S1, Normal S2, PMI Normal Abdomen: Bowel Sounds Present, Soft, Non Tender, Non-Distended, No Hepato- splenomegaly Extremities: No clubbing, No cyanosis, No edema, - - Status post below left knee amputation. Skin: No rashes, No breakdown Lymphatic: No Cervical, Supraclavicular, or Inguinal Adenopathy Neurological: Cranial nerves II-XII grossly intact, Motor Exam 5/5 strength throughout Psych/Mental Status: Normal Affect, Appropriate, Alert and oriented to time, place, person, mood and affect Vital Signs Temp Pulse Resp BP Pulse Ox 97.6 F L 89 16 133/88 H 100 04/11/18 07:26 04/11/18 07:26 04/11/18 07:26 04/11/18 07:26 04/11/18 07:26 Oxygen Delivery Method Room Air Weight: 190 lb Body Mass Index (BMI) 24.5 Intake and Output for Last 24 Hours 04/09/18 04/10/18 04/11/18 23:59 23:59 23:59 Intake Total 2738 / 2738 4130 / 4130 2316 / 2316 Output Total 3400 / 3400 4625 / 4625 2450 / 2450 Balance -662 / -662 -495 / -495 -134 / -134 Microbiology Past 72 Hours 04/05/18 11:00 Gram Stain - Final Tissue Ulcer - Leg Wound Culture - Final No growth aerobically. Anaerobic Culture - Final No growth in 5 days. 04/05/18 11:00 Gram Stain - Final Bone - Leg, Left Wound Culture - Final No growth aerobically. Anaerobic Culture - Final No growth in 5 days. Laboratory Tests Past 24 Hrs 04/10/18 04/11/18 07:20 06:06 PT 17.5 H INR 1.4 Random Vancomycin 12.3 Medical Necessity - Tobacco Use Smoking Status: Former smoker Assessment/Plan All Active Problems (Last Updated 04/09/18 @ 09:50 by Gustavo Baird MD) Thrush, oral (Acute) This is a 52 years old male patient admitted for nonhealing painful ulcer of the left BKA stump with associated osteomyelitis, underwent incision, drainage and excisional debridement of the nonhealing left BKA infected ulcer and partial ostectomy of the left tibia for osteomyelitis. #1 nonhealing infected left BKA stump ulcer/osteomyelitis of the stump and tibia: Status post incision, drainage and excisional debridement of the nonhealing ulcer as well as partial ostectomy of the left tibia, postoperative day 6. He is on IV Levaquin and Flagyl. His vital signs remained stable, afebrile. Left leg ulcer culture showed no growth in 5 days. Bone culture of t he left tibia again showed no growth in 5 days. Plan to continue same treatment, Dr. Massey is managing. #2 anemia: This is fairly acute. Hemoglobin and hematocrit remained stable. It is likely because of blood loss during surgery. Before this admission, hemoglobin normal with range of 13-15 g/dL. At this time, no evidence of active bleeding, no indication for blood transfusion. He is asymptomatic. #3 renal insufficiency: Unclear if this is acute or chronic. On admission, creatinine was 1.31. In the past, creatinine has been fluctuating from normal to up to 1.66 mg/dL. Most recent creatinine was 1.23, stable. #4 hypertension: Blood pressure stable, continue Coreg and lisinopril. #5 history of PE/DVT: He was started back on Coumadin with subcu Lovenox twice daily for bridging. Today's INR is 1.4, still subtherapeutic. Plan to discharge patient on Coumadin with Lovenox for bridging, repeat INR daily until INR is between 2 and 3 and then DC Lovenox and continue Coumadin. Prescription for Lovenox done. #6 hyperlipidemia: Continue statins. #7 peripheral vascular disease: Stable, no acute issues. #8 DVT prophylaxis: Continue Lovenox and Coumadin. INR is 1.4. This note was generated with [employer] software. It may contain incorrect words, spelling, and punctuation that were not noted in checking the note before signing. Code Visit Inpatient E&M: 76908 Subs Hosp L2
[2018-04-11 09:15] LABS: Anion Gap 8 (5-15); BUN 10 mg/dL (7-18); BUN/Creat Ratio 8.1 RATIO (10-20); Calcium,Total 9.1 mg/dL (8.5-10.1); Chloride 102 mmol/L (98-107); Creatinine, Serum 1.24 mg/dL (0.70-1.30); EST Glomerular Filtration Rate 65 mL/min (>60); Est Glom Filt Rate - Afr Amer 79 mL/min (>60); Estimated Creatinine Clearance 81.02 ml/min; Glucose 91 mg/dL (74-106); Potassium 4.1 mmol/L (3.5-5.1); Sodium Level 138 mmol/L (136-145)
[2018-04-11] MEDS: NYSTATIN 500,000 UNIT/5 ML UDC 500000 UNIT PO ×4 (09:29→21:27)
[2018-04-11] MEDS: levoFLOXacin IV 500 MG/100 ML BAG 100 MG IV (09:29)
[2018-04-11 11:17] VITALS: BP 130/83; PULSE 81; RESP 16; TEMP 36.5; O2SAT 100
--- NOTE | 2018-04-11 12:36 | CASEMGMT ---
SW spoke w/pt, let him know that there are no POA/LW forms on file for him here. He will bring in copies next time he is here. EDWARD Davila, UNIT ASSISTANT
--- NOTE | 2018-04-11 12:48 | CASEMGMT ---
DARSHAN WINCHESTER NOTE: Call placed to [facility] to inquire if [facility] agency has accepted pt. Spoke w/Shaunna @ [facility]. Shaunna reports that they are still awaiting provider acceptance. Asked if this referral can be escalated, as it has been 7 days since referral was made. Shaunna states this has already been escalated and she stated she was sending another e-mail for escalation to her lead. Shaunna states someone should be contacting DARSHAN WINCHESTER hopefully today. * Shaunna was also made aware that pt is getting discharged with oral antibiotics and is not going to be needing IV Antibiotics. She was also made aware pt will need PICC dragline oiler in addition to Wound Vac Care/Maintenance. She stated they do have documentation of this and are aware. Gina PATEL RN CM
--- NOTE | 2018-04-11 12:54 | PCM.PN.SRG ---
Subjective: Postop #6 Patient is resting comfortably. - Physical Exam General: Alert, Oriented x3 HEENT: PERRLA, EOMI Oral: Moist Mucosa Neck: Supple Abdomen: Soft, Non-Distended Skin: Ulcer/ Wound - VAC changed today. Wound is stable. Neurological: Cranial nerves II-XII grossly intact Psych/Mental Status: Normal Affect, Appropriate Vital Signs Temp Pulse Resp BP Pulse Ox 97.7 F L 81 16 130/83 H 100 04/11/18 11:17 04/11/18 11:17 04/11/18 11:17 04/11/18 11:17 04/11/18 11:17 Oxygen Delivery Method Room Air Weight: 190 lb Body Mass Index (BMI) 24.5 Intake and Output for Last 24 Hours 04/09/18 04/10/18 04/11/18 23:59 23:59 23:59 Intake Total 2738 / 2738 4130 / 4130 3018 / 3018 Output Total 3400 / 3400 4625 / 4625 3675 / 3675 Balance -662 / -662 -495 / -495 -657 / -657 Microbiology Past 72 Hours 04/05/18 11:00 Gram Stain - Final Tissue Ulcer - Leg Wound Culture - Final No growth aerobically. Anaerobic Culture - Final No growth in 5 days. 04/05/18 11:00 Gram Stain - Final Bone - Leg, Left Wound Culture - Final No growth aerobically. Anaerobic Culture - Final No growth in 5 days. Pathology - pending. Laboratory Tests Past 24 Hrs 04/11/18 04/11/18 06:06 08:35 PT 17.5 H INR 1.4 Sodium 138 Potassium 4.1 Chloride 102 Carbon Dioxide 28.0 Anion Gap 8 BUN 10 Creatinine 1.24 Estim Creat Clear Calc 81.02 Est GFR (MDRD) Af Amer 79 Est GFR (MDRD) Non-Af 65 BUN/Creatinine Ratio 8.1 L Glucose 91 Calcium 9.1 Medical Necessity - Tobacco Use Smoking Status: Former smoker Assessment/Plan All Active Problems (Last Updated 04/09/18 @ 09:50 by Gustavo Baird MD) Thrush, oral (Acute) 1. Nonhealing ulcer left BKA stump. 2. Pain left BKA stump. 3. 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 4. 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 5. senior living use of anticoagulation. 6. s/p surgical preparation left BKA stump with incision and drainage and excisional debridement nonhealing infected ulcer and partial ostectomy tibia for osteomyelitis. Wound is stable. VAC in place. Minimal drainage in the canister. Operative cultures are negative. The Vancomycin has been stopped. He is on Levaquin and Flagyl. Pathology is pending. If Pathology shows osteomyelitis, will need IV antibiotics. Otherwise, can send home on oral antibiotics. Would leave the PICC line in until the Pathology is available. If necessary, can set up IV antibiotics as an outpatient if necessary. If Pathology is negative, will pull the PICC line as an outpatient. Prealbumin was 31.2. Encourage nutritional supplementation with protein to help the healing process. INR was 1.4. Presently on Coumadin. The INR is taking its time getting to a therapeutic level. Discussed with the Hospitalist Service. Can send him home on Lovenox for bridging until the INR is therapeutic. Will check INR on a weekly basis as an outpatient. He states his Workers' Compensation Claims Examiner manages the Coumadin as an outpatient. My office called his Workers' Compensation Claims Examiner. They stated his PCP manages his Coumadin. Anticipate discharge tomorrow. Still trying to arrange Home Health to assist with the VAC dressing changes three times per week at 150 mmHg continuous suction. Prior to revision of the amputation stump with readvancement of the muscle flap and partial ostectomy and secondary wound closure, will need Pathology report that is negative for osteomyelitis. Depending on the severity of the osteomyelitis and the proximal extent of the osteomyelitis, I may not be able to revise the left BKA stump if too much of the tibia has to be removed to control the osteomyelitis. If so, then would need to proceed to a left AKA. At the time of the wound closure surgery, it would be done under general anesthesia and tourniquet control with a surgical observation overnight stay in the hospital. A drain will be placed for several days. Tissue and bone will be sent to Pathology for analysis to rule out carcinoma and to evaluate for osteomyelitis. Tissue and bone will be sent to Microbiology for culture. A positive culture may necessitate antibiotic modification. After healing has occurred and the swelling is controlled with a stump supervisor water softener service, then he can be evaluated with his [employer] for revision of his prosthesis. Would like to have HBO treatments prior to revision of the amputation stump flap.
[2018-04-11 14:09] VITALS: BP 132/83; PULSE 82; RESP 16; TEMP 36.4; O2SAT 99
--- NOTE | 2018-04-11 15:03 | CASEMGMT ---
RN ANNABELLA NOTE: [facility] to [facility] [place]. They stated they are In-Network with [employer] and do go to pt's area/place of residence. They were made aware pt needs wound vac care/maintenance and PICC care and maintenance. Referral packet faxed to [facility] @ [phone], which included demographic sheet, copy of insurance card, H/P, Progress notes, labs, vs's, PICC documentation, HHC orders, Wound Vac orders and pressure settings. A also aware plan is for discharge tomorrow 04/12/18. Fax confirmation received that the referral packet did go through. Awaiting Acceptance and Insurance approval. Dr Massey and pt both made aware that we are awaiting HHC acceptance. Gina CASTRON RN CM
--- NOTE | 2018-04-11 16:01 | CASEMGMT ---
RN ANNABELLA NOTE: Spoke w/ [facility] and they confirmed they did receive the referral packet. Also spoke w/[facility] and they are in-network with [facility] but they do not go to pt's area/location. Gina CASTRON RN CM
[2018-04-11 20:10] VITALS: BP 122/78; PULSE 84; RESP 18; TEMP 36.7; O2SAT 98
[2018-04-11] MEDS: Atorvastatin Calcium 40 MG Tablet PO (21:27)
[2018-04-12] MEDS: oxyCODONE 5 MG Tablet 10 MG PO ×3 (02:02→14:06)
[2018-04-12 02:04] VITALS: BP 129/87; PULSE 86; RESP 18; TEMP 36.7; O2SAT 99
[2018-04-12] MEDS: 0.9% NaCl IVPB Med Flush (250 mL) 15 ML IV (05:27)
[2018-04-12] MEDS: Enoxaparin 80 MG/0.8 ML Syringe SC ×2 (05:30→17:33)
--- NOTE | 2018-04-12 08:10 | PCM.PROGNOTE ---
Subjective: Chief complaint: Follow-up after consultation for postoperative medical management. Patient seen and examined. No acute events overnight. Patient is doing well. Left knee stump pain is manageable with pain medication. His vital signs are stable. - Physical Exam General: Alert, Oriented x3, Cooperative, No apparent distress HEENT: Atraumatic, PERRLA, EOMI, Normocephalic Oral: Moist Mucosa, No Gingival or Mucosal Lesions/ Ulcerations Neck: Supple, No JVD, Negative Carotid Bruits, Trachea Midline, Thyroid Normal Size and Texture Lungs: Clear to auscultation, Normal air movement, No rhonchi, No wheeze, No rales Cardiovascular: Regular rate, Regular Rhythm, Normal S1, Normal S2, PMI Normal Abdomen: Bowel Sounds Present, Soft, Non Tender, Non-Distended, No Hepato-splenomegaly Extremities: No clubbing, No cyanosis, No edema, - - Status below left knee amputation. Skin: No rashes, Ulcer/ Wound Lymphatic: No Cervical, Supraclavicular, or Inguinal Adenopathy Neurological: Cranial nerves II-XII grossly intact, Neuro grossly intact Psych/Mental Status: Normal Affect, Appropriate Vital Signs Temp Pulse Resp BP Pulse Ox 98.0 F 86 18 129/87 H 99 04/12/18 02:04 04/12/18 02:04 04/12/18 02:04 04/12/18 02:04 04/12/18 02:04 Oxygen Delivery Method Room Air Weight: 190 lb Body Mass Index (BMI) 24.5 Intake and Output for Last 24 Hours 04/10/18 04/11/18 04/12/18 23:59 23:59 23:59 Intake Total 4130 / 4130 3770 / 3770 Output Total 4625 / 4625 4525 / 4525 1999 Balance -495 / -495 -755 / -755 -1999 Microbiology Past 72 Hours 04/05/18 11:00 Gram Stain - Final Tissue Ulcer - Leg Wound Culture - Final No growth aerobically. Anaerobic Culture - Final No growth in 5 days. 04/05/18 11:00 Gram Stain - Final Bone - Leg, Left Wound Culture - Final No growth aerobically. Anaerobic Culture - Final No growth in 5 days. Laboratory Tests Past 24 Hrs 04/11/18 08:35 Sodium 138 Potassium 4.1 Chloride 102 Carbon Dioxide 28.0 Anion Gap 8 BUN 10 Creatinine 1.24 Estim Creat Clear Calc 81.02 Est GFR (MDRD) Af Amer 79 Est GFR (MDRD) Non-Af 65 BUN/Creatinine Ratio 8.1 L Glucose 91 Calcium 9.1 Medical Necessity - Tobacco Use Smoking Status: Former smoker Assessment/Plan All Active Problems (Last Updated 04/09/18 @ 09:50 by Gustavo Baird MD) Thrush, oral (Acute) This is a 52 years old male patient admitted for nonhealing painful ulcer of the left BKA stump with associated osteomyelitis, underwent incision, drainage and excisional debridement of the nonhealing left BKA infected ulcer and partial ostectomy of the left tibia for osteomyelitis. #1 nonhealing infected left BKA stump ulcer/osteomyelitis of the stump and tibia: Status post incision, drainage and excisional debridement of the nonhealing ulcer as well as partial ostectomy of the left tibia, postoperative day 7. Remained on IV Levaquin and Flagyl. His vital signs remained stable, afebrile. Left leg ulcer culture showed no growth in 5 days. Bone culture of the left tibia again showed no growth in 5 days. Plan to continue same treatment, Dr. Massey is managing. Medically, patient is stable to be discharged. We will sign off, call if needed. #2 anemia: This is fairly acute. Hemoglobin and hematocrit remained stable, most recent hemoglobin was 10.3 g/dL. It is likely because of blood loss during surgery. Before this admission, hemoglobin normal with range of 13-15 g/dL. At this time, no evidence of active bleeding, no indication for blood transfusion. He is asymptomatic. #3 renal insufficiency: Unclear if this is acute or chronic. On admission, creatinine was 1.31. In the past, creatinine has been fluctuating from normal to up to 1.66 mg/dL. Today's creatinine is 1.24, stable. #4 hypertension: Blood pressure stable, continue Coreg and lisinopril. #5 history of PE/DVT: He is on Lovenox twice daily for bridging as well as Coumadin. INR is 1.4 yesterday. Recommend to repeat INR tomorrow. #6 hyperlipidemia: Continue statins. #7 peripheral vascular disease: Stable, no acute issues. #8 DVT prophylaxis: Continue Lovenox and Coumadin. INR is 1.4. This note was generated with [employer] software. It may contain incorrect words, spelling, and punctuation that were not noted in checking the note before signing. Code Visit Inpatient E&M: 57296 Subs Hosp L2
--- NOTE | 2018-04-12 08:13 | PN_ITS ---
Subjective: Chief complaint: Follow-up after consultation for postoperative medical management. Patient seen and examined. No acute events overnight. Patient is doing well. Left knee stump pain is manageable with pain medication. His vital signs are stable. - Physical Exam General: Alert, Oriented x3, Cooperative, No apparent distress HEENT: Atraumatic, PERRLA, EOMI, Normocephalic Oral: Moist Mucosa, No Gingival or Mucosal Lesions/ Ulcerations Neck: Supple, No JVD, Negative Carotid Bruits, Trachea Midline, Thyroid Normal Size and Texture Lungs: Clear to auscultation, Normal air movement, No rhonchi, No wheeze, No rales Cardiovascular: Regular rate, Regular Rhythm, Normal S1, Normal S2, PMI Normal Abdomen: Bowel Sounds Present, Soft, Non Tender, Non-Distended, No Hepato- splenomegaly Extremities: No clubbing, No cyanosis, No edema, - - Status below left knee amputation. Skin: No rashes, Ulcer/ Wound Lymphatic: No Cervical, Supraclavicular, or Inguinal Adenopathy Neurological: Cranial nerves II-XII grossly intact, Neuro grossly intact Psych/Mental Status: Normal Affect, Appropriate Vital Signs Temp Pulse Resp BP Pulse Ox 98.0 F 86 18 129/87 H 99 04/12/18 02:04 04/12/18 02:04 04/12/18 02:04 04/12/18 02:04 04/12/18 02:04 Oxygen Delivery Method Room Air Weight: 190 lb Body Mass Index (BMI) 24.5 Intake and Output for Last 24 Hours 04/10/18 04/11/18 04/12/18 23:59 23:59 23:59 Intake Total 4130 / 4130 3770 / 3770 Output Total 4625 / 4625 4525 / 4525 1999 Balance -495 / -495 -755 / -755 -1999 Microbiology Past 72 Hours 04/05/18 11:00 Gram Stain - Final Tissue Ulcer - Leg Wound Culture - Final No growth aerobically. Anaerobic Culture - Final No growth in 5 days. 04/05/18 11:00 Gram Stain - Final Bone - Leg, Left Wound Culture - Final No growth aerobically. Anaerobic Culture - Final No growth in 5 days. Laboratory Tests Past 24 Hrs 04/11/18 08:35 Sodium 138 Potassium 4.1 Chloride 102 Carbon Dioxide 28.0 Anion Gap 8 BUN 10 Creatinine 1.24 Estim Creat Clear Calc 81.02 Est GFR (MDRD) Af Amer 79 Est GFR (MDRD) Non-Af 65 BUN/Creatinine Ratio 8.1 L Glucose 91 Calcium 9.1 Medical Necessity - Tobacco Use Smoking Status: Former smoker Assessment/Plan All Active Problems (Last Updated 04/09/18 @ 09:50 by Gustavo Baird MD) Thrush, oral (Acute) This is a 52 years old male patient admitted for nonhealing painful ulcer of the left BKA stump with associated osteomyelitis, underwent incision, drainage and excisional debridement of the nonhealing left BKA infected ulcer and partial ostectomy of the left tibia for osteomyelitis. #1 nonhealing infected left BKA stump ulcer/osteomyelitis of the stump and tibia: Status post incision, drainage and excisional debridement of the nonhealing ulcer as well as partial ostectomy of the left tibia, postoperative day 7. Remained on IV Levaquin and Flagyl. His vital signs remained stable, afebrile. Left leg ulcer culture showed no growth in 5 days. Bone culture of t he left tibia again showed no growth in 5 days. Plan to continue same treatment, Dr. Massey is managing. Medically, patient is stable to be discharged. We will sign off, call if needed. #2 anemia: This is fairly acute. Hemoglobin and hematocrit remained stable, most recent hemoglobin was 10.3 g/dL. It is likely because of blood loss during surgery. Before this admission, hemoglobin normal with range of 13-15 g/dL. At this time, no evidence of active bleeding, no indication for blood transfusion. He is asymptomatic. #3 renal insufficiency: Unclear if this is acute or chronic. On admission, creatinine was 1.31. In the past, creatinine has been fluctuating from normal to up to 1.66 mg/dL. Today's creatinine is 1.24, stable. #4 hypertension: Blood pressure stable, continue Coreg and lisinopril. #5 history of PE/DVT: He is on Lovenox twice daily for bridging as well as Coumadin. INR is 1.4 yesterday. Recommend to repeat INR tomorrow. #6 hyperlipidemia: Continue statins. #7 peripheral vascular disease: Stable, no acute issues. #8 DVT prophylaxis: Continue Lovenox and Coumadin. INR is 1.4. This note was generated with [employer] software. It may contain incorrect words, spelling, and punctuation that were not noted in checking the note before signing. Code Visit Inpatient E&M: 80597 Subs Hosp L2
[2018-04-12 08:30] VITALS: BP 147/94; PULSE 104; RESP 16; TEMP 36.3; O2SAT 98
[2018-04-12] MEDS: Gabapentin 600 MG Tablet 1800 MG PO ×2 (08:32→17:30)
[2018-04-12] MEDS: Carvedilol 12.5 MG Tablet PO (08:33)
[2018-04-12] MEDS: NYSTATIN 500,000 UNIT/5 ML UDC 500000 UNIT PO ×3 (08:33→17:30)
[2018-04-12] MEDS: Lisinopril 20 MG Tablet PO (08:33)
--- NOTE | 2018-04-12 09:01 | CASEMGMT ---
Received voicemail from [facility] and they are unable to accept the patient. RN CM to follow-up with Brent Nagy to check on status of HHC setup. CM to continue to follow this patient and plan for a safe discharge.
[2018-04-12] MEDS: levoFLOXacin IV 500 MG/100 ML BAG 100 MG IV (10:14)
--- NOTE | 2018-04-12 12:00 | CASEMGMT ---
DARSHAN WINCHESTER called [facility] and spoke with Angelina, who had a few more referrals to follow-up on regarding HHC. DARSHAN WINCHESTER inquired if none of [facility]'s in-network C could accept patient, would they contract it out. Angelina stated she would follow-up with referral and then once exhaused would contract referral to out of network C. DARSHAN WINCHESTER updated [facility] with [facility]. This RN ANNABELLA called and spoke with [facility] about potential contract with [facility]. Andreecolin return called and stated they exhausted all in-network HHC and would call [facility] to setup contract and negotiate rates. DARSHAN WINCHESTER later received call from [facility] that a rate was agreed upon and will start care tomorrow. This CM updated CM Darletta and charge nurse on MS2. Patient to discharge this afternoon with HHC setup with [facility]. CM will continue to follow this patient and plan for a safe discharge.
[2018-04-12 14:00] VITALS: BP 132/83; PULSE 96; RESP 16; TEMP 36.3; O2SAT 100
--- NOTE | 2018-04-12 14:00 | CASEMGMT ---
DARSHAN WINCHESTER NOTE: Pt notified that [facility] able to accept pt and that start of care will be tomorrow, Friday 04/13. Pt also made aware that Dr Massey states he will not be able to discharge pt until after 5 PM. Pt voices appreciation for notifying him. Gina PATEL RN CM
--- NOTE | 2018-04-12 15:35 | NURSING ---
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 This RN retrieved keys and pt reported that he would be driving himself home. pt agrees to no more narcotic pain meds until he gets home.
[2018-04-12 17:40] VITALS: BP 110/84; PULSE 93; RESP 16; TEMP 36.6; O2SAT 99
--- NOTE | 2018-04-12 18:01 | NURSING ---
edilma RN notified this RN that Dr. Massey called and states he is on his way but that we can d/c picc line at this time.
--- NOTE | 2018-04-12 18:08 | PCM.PN.SRG ---
Subjective: Postop #7 Patient is resting comfortably. Finally we were able to line up Home Health to assist with his VAC changes. Patient is anxious to go home. - Physical Exam General: Alert, Oriented x3 HEENT: PERRLA, EOMI Oral: Moist Mucosa Neck: Supple Abdomen: Soft, Non-Distended Skin: Ulcer/ Wound - stump wound is stable. VAC in place. Minimal drainage in the canister. Neurological: Cranial nerves II-XII grossly intact Psych/Mental Status: Normal Affect, Appropriate Vital Signs Temp Pulse Resp BP Pulse Ox 97.4 F L 96 16 132/83 H 100 04/12/18 14:00 04/12/18 14:00 04/12/18 14:00 04/12/18 14:00 04/12/18 14:00 Oxygen Delivery Method Room Air Weight: 190 lb Body Mass Index (BMI) 24.5 Intake and Output for Last 24 Hours 04/10/18 04/11/18 04/12/18 23:59 23:59 23:59 Intake Total 4130 / 4130 3770 / 3770 860 / 860 Output Total 4625 / 4625 4525 / 4525 3300 / 3300 Balance -495 / -495 -755 / -755 -2440 / -2440 Pathology - negative for osteomyelitis. Medical Necessity - Tobacco Use Smoking Status: Former smoker Assessment/Plan All Active Problems (Last Updated 04/09/18 @ 09:50 by Gustavo Baird MD) Thrush, oral (Acute) 1. Nonhealing ulcer left BKA stump. 2. Pain left BKA stump. 3. 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 4. 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 5. [facility] use of anticoagulation. 6. s/p surgical preparation left BKA stump with incision and drainage and excisional debridement nonhealing infected ulcer and partial ostectomy tibia for osteomyelitis. Wound is stable. VAC in place. Minimal drainage in the canister. Operative cultures are negative. Pathology is negative for osteomyelitis. Will stop the IV antibiotics and pull the PICC line. Will send him home on oral antibiotics, (Doxycycline and Levaquin). Prealbumin was 31.2. Encourage nutritional supplementation with protein to help the healing process. INR was 1.4. Presently on Coumadin. The INR is taking its time getting to a therapeutic level. Discussed with the Hospitalist Service. Can send him home on Lovenox for bridging until the INR is therapeutic. Will check INR every other day as an outpatient until he reaches his therapeutic level. He will call his PCP at discharge to manage his Coumadin. Finally obtained Home Health to assist with the VAC changes three times per week at 150 mmHg continuous suction. Discharge home today. [facility]up [facility] on 04[facility]18. Has script for twice a day Lovenox and he will have his INR checked every other day until he reaches his therapeutic level. Wrote scripts for Doxycycline and Levaquin. Wrote scripts for Percocet for pain (40 tabs) and for Valium for spasm (30 tabs).
--- NOTE | 2018-04-12 18:16 | NURSING ---
PICC line removed all 46cm that was placed by cyber forensics analyst. Pt instructed to perform Valsalva maneuver while pulling out- vaseline gauze placed over insertion site and sterile dressing applied. Pt instructed to continue laying flat for 30 minutes and to keep dressing in place for 24 hrs. Pt verbalized understanding and denied further needs.
--- NOTE | 2018-04-12 18:24 | DCINST_ITS ---
You will use the following diet at home:: No restrictions Discharge Activity: May not drive while taking narcotic pain medications., May Shower - on the days the vac is changed. May shower in (days): 2 - on days the vac is changed. May resume sexual activity in: No Restrictions Weight Bearing Status: Weight bearing as tolerated Keep extremity elevated above heart level: Left Leg - amputation stump when sitting. Call your doctor if your incision/area has: Continuous Slow Oozing, Sudden Increased Bleeding, Increased Pain/ Swelling, Increased Redness, Foul Smelling Discharge, Swelling at the incision site Call your doctor if you observe: Fever of 101 or Higher, Coldness, Increased Pain, Shortness of breath, Chest pain, Calf discomfort, Uncontrolled pain Suture Line Care: - - vac changes three times per week at 150 mmHg continuous suction. Change Dressing in (Days):: 2 - vac changes three times per week. Cleanse incision/area with: Soap & Water - may cleanse the wound with soap and water on the days the vac is changed. Allergies/Adverse Reactions: Allergies Penicillins Allergy (Verified 02/21/18 10:37) Swelling Medications to take at Discharge Gabapentin [Neurontin] 1,800 mg PO BID 03/05/18 Atorvastatin Calcium [Lipitor] 40 mg PO QHS 04/03/18 Carvedilol 12.5 mg PO DAILY 04/03/18 Lisinopril 20 mg PO DAILY 04/03/18 Warfarin [Coumadin] 3 mg PO DAILY 04/03/18 Cyclobenzaprine [Flexeril] 10 mg PO TID tablet 04/12/18 Diazepam [Valium] 5 mg PO 4X/DAY PRN PRN 7 Days #30 tab 04/12/18 Doxycycline 100 mg PO BID #28 cap 04/12/18 Enoxaparin Sodium [Lovenox] 80 mg SQ BID #10 syringe 04/12/18 Gabapentin [Neurontin] 1,800 mg PO BIDCM tablet 04/12/18 Oxycodone HCl/Acetaminophen [Percocet 2.5-325 mg Tablet] 1 - 2 tab PO 4X/DAY PRN PRN 5 Days #40 tab 04/12/18 Warfarin [Coumadin] 3 mg PO DAILY@1700 tablet 04/12/18 Zolpidem Tartrate [Ambien] 5 mg PO QHS PRN PRN tablet 04/12/18 levoFLOXacin tablet [Levaquin tablet] 500 mg PO DAILY #14 tab 04/12/18 The following prescriptions were given: Diazepam [Valium] 5 mg PO 4X/DAY PRN PRN 7 Days #30 tab PRN Reason: Spasms levoFLOXacin tablet [Levaquin tablet] 500 mg PO DAILY #14 tab Oxycodone HCl/Acetaminophen [Percocet 2.5-325 mg Tablet] 1 - 2 tab PO 4X/DAY PRN PRN 5 Days #40 tab PRN Reason: Pain Doxycycline 100 mg PO BID #28 cap Enoxaparin Sodium [Lovenox] 80 mg SQ BID #10 syringe Orders to be completed after discharge: Prothrombin Time w/INR Time Frame: 04/13/18, Location: Laboratory Prothrombin Time w/INR Time Frame: 04/15/18, Location: Laboratory Prothrombin Time w/INR Time Frame: 04/17/18, Location: Laboratory Primary Care Physician: Dharmesh Alonso MD [Primary Care Provider] - Test Results: Test results from this visit will be discussed in further detail at your follow- up appointment, if applicable. Please Follow Up With: Francois Massey MD When: wound center on 04/23/18. call [phone] for appt. Proposed Discharge Date: 04/12/18
--- NOTE | 2018-04-12 18:33 | DS.PCM_ITS ---
Discharge Date and Diagnosis Date of Admission: 04/03/18 Date of Discharge: 04/12/18 - Primary Discharge Diagnosis Nonhealing ulcer left BKA stump. Pain left BKA stump. 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 retirement use of anticoagulation. History of pulmonary embolism History of DVT (deep vein thrombosis) Status post below knee amputation of left lower extremity CAD (coronary artery disease) HTN (hypertension) Peripheral arterial disease SVT (supraventricular tachycardia) Hypercoagulable state Hospital Course and Treatment Imaging Results: Diagnostic Data Chest X-Ray 04/03/18 15:55 IMPRESSION: No acute pulmonary process Left PICC line tip in the distal SVC Electronically Signed: Cody Bosch MD at 16:58 EST , Service support , Consultations 04/06/18 07:00 Consult: Onc/Wound/manager forensic Routine Comment: Reason for Consult:: wound vac Hospitalist Group - Dr. Villalobos, and Dr. May, and Dr. Baird. Operations: - - 04/05/18 - 1. Surgical preparation left BKA stump with incision and drainage and excisional debridement nonhealing infected ulcer. 2. Partial ostectomy tibia for osteomyelitis. Procedures: PICC line placement, Wound vac placement Summary of Care Provided: 52 year old man presents with complaints of pain in his left BKA stump. 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 He had a nonhealing ulcer anteriorly over the bone that is presently healed. He was recently admitted to [facility] for IV antibiotics because of this ulceration and underlying osteomyelitis. He had an MRI done on 10/21/17 which showed osteomyelitis. During his IV antibiotic therapy, he developed a blood clot and PE. He is now on Coumadin. Because of the pain in his stump, he is unable to use his prosthesis. Today he denies any fever. He denies any recent trauma. There has been some issues getting HBO approval before the surgery. So he presents today to start IV antibiotics and to start IV Heparin and stop the Coumadin in preparation for operative debridement of his amputation stump. The Hospitalist Group was consulted for medical management. ON 04/05/18, the patient underwent surgical preparation left BKA stump with i ncision and drainage and excisional debridement nonhealing infected ulcer and partial ostectomy tibia for osteomyelitis. He tolerated the procedure well. The VAC was applied the next day. he was juanito ated with IV antibiotics with Vancomycin, Levaquin, and Flagyl. A PICC line was placed. He was bridged with IV Heparin while waiting for his INR to increase. It stayed relatively constant around 1.4 - 1.5 level. It was decided to start him on Lovenox injections twice a day so he be at home waiting for his INR to go above 2. His operative cultures were negative. His Pathology was negative for osteomyelitis. So the IV antibiotics (Vancomycin, Levaquin, and Flagyl) will be discontinued at discharge. The PICC line was pulled. Once his Home Health was finally arranged on 04/12/18 to assist him with the VAC changes at home, he was discharged home in satisfactory condition. He was given a script for Lovenox injections. He will check his INR every other day until his level becomes therapeutic. I will keep him on oral antibiotics (Doxycycline and Levaquin). Wrote scripts for Percocet for pain (40 tabs) and for Valium for spasm (30 tabs). Followup at the [facility] on 04/23/18. - Physical Exam Vital Signs Temp Pulse Resp BP Pulse Ox 97.8 F 93 16 110/84 H 99 04/12/18 17:40 04/12/18 17:40 04/12/18 17:40 04/12/18 17:40 04/12/18 17:40 Oxygen Delivery Method Room Air Weight: 190 lb Body Mass Index (BMI) 24.5 Intake and Output for Last 24 Hours 04/10/18 04/11/18 04/12/18 23:59 23:59 23:59 Intake Total 4130 / 4130 3770 / 3770 860 / 860 Output Total 4625 / 4625 4525 / 4525 3300 / 3300 Balance -495 / -495 -755 / -755 -2440 / -2440 Discharge Diet: No Restrictions Discharge Activity: May not drive while taking narcotic pain medications., May Shower - on the days the vac is changed. May shower in (days): 2 - on days the vac is changed. May resume sexual activity in: No Restrictions Weight Bearing Status: Weight bearing as tolerated Keep extremity elevated above heart level: Left Leg - amputation stump when sitting. Call your doctor if your incision/area has: Continuous Slow Oozing, Sudden Increased Bleeding, Increased Pain/ Swelling, Increased Redness, Foul Smelling Discharge, Swelling at the incision site Call your doctor if you observe: Fever of 101 or Higher, Coldness, Increased Pain, Shortness of breath, Chest pain, Calf discomfort, Uncontrolled pain Suture Line Care: - - vac changes three times per week at 150 mmHg continuous suction. Change Dressing in (Days):: 2 - vac changes three times per week. Cleanse incision/area with: Soap & Water - may cleanse the wound with soap and water on the days the vac is changed. Home Medications: Medications to take at Discharge Gabapentin [Neurontin] 1,800 mg PO BID 03/05/18 Atorvastatin Calcium [Lipitor] 40 mg PO QHS 04/03/18 Carvedilol 12.5 mg PO DAILY 04/03/18 Lisinopril 20 mg PO DAILY 04/03/18 Warfarin [Coumadin] 3 mg PO DAILY 04/03/18 Cyclobenzaprine [Flexeril] 10 mg PO TID tablet 04/12/18 Diazepam [Valium] 5 mg PO 4X/DAY PRN PRN 7 Days #30 tab 04/12/18 Doxycycline 100 mg PO BID #28 cap 04/12/18 Enoxaparin Sodium [Lovenox] 80 mg SQ BID #10 syringe 04/12/18 Gabapentin [Neurontin] 1,800 mg PO BIDCM tablet 04/12/18 Oxycodone HCl/Acetaminophen [Percocet 2.5-325 mg Tablet] 1 - 2 tab PO 4X/DAY PRN PRN 5 Days #40 tab 04/12/18 Warfarin [Coumadin] 3 mg PO DAILY@1700 tablet 04/12/18 Zolpidem Tartrate [Ambien] 5 mg PO QHS PRN PRN tablet 04/12/18 levoFLOXacin tablet [Levaquin tablet] 500 mg PO DAILY #14 tab 04/12/18 Following Prescrptions Were Given to Patient: Diazepam [Valium] 5 mg PO 4X/DAY PRN PRN 7 Days #30 tab PRN Reason: Spasms levoFLOXacin tablet [Levaquin tablet] 500 mg PO DAILY #14 tab Oxycodone HCl/Acetaminophen [Percocet 2.5-325 mg Tablet] 1 - 2 tab PO 4X/DAY PRN PRN 5 Days #40 tab PRN Reason: Pain Doxycycline 100 mg PO BID #28 cap Enoxaparin Sodium [Lovenox] 80 mg SQ BID #10 syringe Other Amb Orders: Prothrombin Time w/INR Time Frame: 04/13/18, Location: Laboratory Prothrombin Time w/INR Time Frame: 04/17/18, Location: Laboratory Primary Care Physician: Dharmesh Alonso MD [Primary Care Provider] - Please Follow Up With: Francois Massey MD When: wound center on 04/23/18. call [phone] for appt. Disposition: Home with Home Health Minutes spent on discharge:: 35 Patient Condition:: Stable Medical Necessity - Tobacco Use Smoking Status: Former smoker Meaningful Use Info Meaningful Use Diagnoses (Choose all that apply): None applicable
--- NOTE | 2018-04-13 17:02 | CASEMGMT ---
RN CM Discharge Follow-up Phone Call: RAMANYolanda: Dwayne Strata: 3 Call Date: 04/13/18 Discharge Date: 04/12/18 Time of Call: 1702 Duration: 1min ? Admitting Diagnosis: Infected left BKA stump ulcer/osteomyelitis This RN CM phone pt in follow-up post discharge. Pt relayed that the HH RN was visiting with him and changing his wound vac at this time. He did state he had been doing fine since discharge. Conversation not further continued to allow for HH RN to continue her care.
== END 2018-04-12 19:00 | disposition home health service (06) | DRG 982 ==
PROVIDERS: Anesthesiology; Internal Medicine; Physician Assistant; Admitting Provider Surgery; Family Provider Internal Medicine; PCP Internal Medicine; Referring Provider Surgery; Visit Provider Hospitalist
PROC: 0QBH0ZZ Excision of Left Tibia, Open Approach (ICD-10-PCS; principal; 2018-04-05 09:15)
DX: L97.929 Non-pressure chronic ulcer of unspecified part of left lower leg with unspecified severity (principal); T87.44 Infection of amputation stump, left lower extremity; I42.9 Cardiomyopathy, unspecified; D68.59 Other primary thrombophilia; I47.1 Supraventricular tachycardia; B37.0 Candidal stomatitis; Y83.5 Amputation of limb(s) as the cause of abnormal reaction of the patient, or of later complication, without mention of misadventure at the time of the procedure; I73.9 Peripheral vascular disease, unspecified; E78.5 Hyperlipidemia, unspecified; N18.3 Chronic kidney disease, stage 3 (moderate); I12.9 Hypertensive chronic kidney disease with stage 1 through stage 4 chronic kidney disease, or unspecified chronic kidney disease; N28.9 Disorder of kidney and ureter, unspecified; I25.10 Atherosclerotic heart disease of native coronary artery without angina pectoris; Z79.01 Long term (current) use of 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s; Z87.891 Personal history of nicotine dependence; Z86.711 Personal history of pulmonary embolism; Z86.718 Personal history of other venous thrombosis and embolism; Z79.02 Long term (current) use of antithrombotics/antiplatelets; Z89.512 Acquired absence of left leg below knee
CPT/HCPCS: 36415; 36569; 71045; 80048; 80053; 80202; 83735; 84134; 85025; 85027; 85610; 85730; 87070; 87075; 87102; 87205; 87206; 87640; 88304; 88305; 88311; 93005; J7050; J7120; A4216; J2405

== ENCOUNTER → 2018-04-15 14:16 | Outpatient (CLI) | payer SELFPAY ==
[2018-04-03 11:29] VITALS: BMI 24.5
[2018-04-15 14:46] LABS: Prothrombin Time (Protime)PT. 22.7 SECONDS (11.7-14.9)
== END ==
PROVIDERS: Family Provider Internal Medicine; PCP Internal Medicine; Visit Provider Surgery
DX: Z79.01 Long term (current) use of 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s (principal); Z86.718 Personal history of other venous thrombosis and embolism; Z86.711 Personal history of pulmonary embolism
CPT/HCPCS: 36415; 85610

== ENCOUNTER 2018-04-23 09:17 | Outpatient (RCR) | payer OTHER, SELFPAY ==
[2018-03-29 01:56] VITALS: BP 126/89; PULSE 79; RESP 18; TEMP 36.2
[2018-04-23 09:19] VITALS: BP 112/81; PULSE 127; RESP 20; TEMP 36.9
--- NOTE | 2018-04-23 21:52 | PCM.WC.PN ---
Type of Wound Date of Service: 04/23/18 Chief Complaint: Surgical wound dehiscence to the left BKA. History of Wound: Surgery 04/05/18 - 1. Surgical preparation left BKA stump with incision and drainage and excisional debridement nonhealing infected ulcer. 2. Partial ostectomy tibia for osteomyelitis. Wound care - VAC. Operative culture - soft tissue - negative. Bone - negative. Pathology - negative for ostemyelitis. Prealbumin from 04/03/18 was 31.2. Encourage nutritional supplementation with protein to help the healing process. MRI left BKA stump in 10/13 showed osteomyelitis. His most recent INR is 2.0. His PCP is managing that. - Physical Exam Vital Signs Temp Pulse Resp BP 98.4 F 127 H 20 H 112/81 H 04/23/18 09:19 04/23/18 09:19 04/23/18 09:19 04/23/18 09:19 Wound Measurements and Assessment WC - Nurse 1 - General Ulcer Measurement Start: 04/23/18 09:19 Freq: Status: Active Protocol: Activity Type Activity Date Activity User E-Sign Co-Sign Detail Recorded Client Recorded Date Recorded By Document 04/23/18 09:19 DL [id number] 04/23/18 09:30 DL 04/23/18 09:19 Wound Center Nurse 1 [Ulcer Assessment] #4 L BKA stump -Current Size (cm) - Length 3.8 -Current Size (cm) - Width 5.5 -Current Size (cm) - Depth 0.4 -Total Square Cm 20.90 -Photo Taken Yes -Exudate Amt Small (1-33%) -Exudate Type Serosanguineous -Wound Margin Distinct, Outline Attached -Granulation Amt Large (67-100%) -Granulation Quality Red -Slough/Fibrin Yes -Necrosis Amt Small (1-33%) -Structure Exposed N/A -Texture (Ami-wound Skin Appearance) Localized Edema Scarring -Moisture (Ami-wound Skin Appearance No Abnormality ) -Color (Ami-wound Skin Appearance) No Abnormality -Temperature (Ami-wound Skin No Abnormality Appearance) (Pt Warm) -Ulcer Cleansing Rinsed/ Irrigated with Saline -Foul Odor after Cleansing No -Anesthetic Used 4% Lidocaine Solution 5% Lidocaine Gel WC - Nurse 2 - General Ulcer CM Notes Start: 04/23/18 09:19 Freq: Status: Active Protocol: Activity Type Activity Date Activity User E-Sign Co-Sign Detail Recorded Client Recorded Date Recorded By Document 04/23/18 10:10 [id number] 04/23/18 10:11 04/23/18 10:10 Wound Center Nurse 2 [Procedure/Treatment] -Time 10:10 -Correct Patient Yes -Correct Side, Site, Position Yes -Correct Procedure Yes -Procedure Performed Yes -Type of Procedure Debridement -Clinical Debridement Muscle -Post Debridement Size (cm) - Length 3.8 -Post Debridement Size (cm) - Width 5.6 -Post Debridement Size (cm) - Depth 0.4 -Total Square Cm 21.28 -Wound/Ulcer Outcome Not Healed -Ulcer Cleansing Rinsed/ Irrigated with Saline -Foul Odor after Cleansing No -Bioengineered Tissue No -Bleeding Controlled with Pressure -Treatment Response Procedure Tolerated Well [See Physician Procedure note for Specifics] Pain Scale: 0-10 Numeric [Pain] -Is Patient Pain Free? Yes Debridement Note Post-Debridement Measurements/Treatment WC - Nurse 2 - General Ulcer CM Notes Start: 04/23/18 09:19 Freq: Status: Active Protocol: Activity Type Activity Date Activity User E-Sign Co-Sign Detail Recorded Client Recorded Date Recorded By Document 04/23/18 10:10 [id number] 04/23/18 10:11 04/23/18 10:10 Wound Center Nurse 2 #4 L BKA stump -Time 10:10 -Correct Patient Yes -Correct Side, Site, Position Yes -Correct Procedure Yes -Procedure Performed Yes -Type of Procedure Debridement -Clinical Debridement Muscle -Post Debridement Size (cm) - Length 3.8 -Post Debridement Size (cm) - Width 5.6 -Post Debridement Size (cm) - Depth 0.4 -Total Square Cm 21.28 -Wound/Ulcer Outcome Not Healed -Ulcer Cleansing Rinsed/ Irrigated with Saline -Foul Odor after Cleansing No -Bioengineered Tissue No -Bleeding Controlled with Pressure -Treatment Response Procedure Tolerated Well Pain Scale: 0-10 Numeric Is Patient Pain Free? Yes Wound debrided: #4 Left BKA stump. Laterality: Left Wound Grade/Stage: 4. Type of Debridement: Excisional debridement Anesthesia Used: 4% Lidocaine Solution Depth: Down to and including healthy tissue, in the subcutaneous layer, to muscle, to bone - bone is palpable but not exposed. Percentage of wound debrided: 100 Instrument Used: 3mm curette Tissue Removed: subcutaneous tissue and muscle. Severity: Fat Layer Exposed - muscle is exposed. bone is palpable but not exposed. Amount of bleeding with debridement: Mild Bleeding Controlled with: Pressure Patient tolerated procedure well Assessment/Plan Assessment: 1. Nonhealing ulcer left BKA stump. 2. Pain left BKA stump. 3. 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 4. 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 6. s/p surgical preparation left BKA stump with incision and drainage and excisional debridement nonhealing infected ulcer and partial ostectomy tibia for osteomyelitis. Plan: Continue the VAC three times per week at 150 mmHg continuous suction. Continue Doxycycline and Levaquin. Prealbumin from the hospital was 31.2. Encourage nutritional supplementation with protein to help the healing process. His INR is 2.0. His PCP is managing that. Since the Pathology was negative for osteomyelitis, will be unable to proceed with HBO treatments at this time. Will proceed with a few more weeks of healing and tentatively schedule wound closure of his stump at the end of April. Will bridge with Lovenox before and after surgery. Renewed his Percocet for pain (40 tabs) and for Valium for spasm (30 tabs).
== END 2018-04-27 23:59 ==
LOC: WC 09:17
PROVIDERS: Family Provider Internal Medicine; PCP Internal Medicine; Visit Provider Surgery
DX: T81.30XA Disruption of wound, unspecified, initial encounter (principal); Z87.891 Personal history of nicotine dependence; Y83.8 Other surgical procedures as the cause of abnormal reaction of the patient, or of later complication, without mention of misadventure at the time of the procedure
CPT/HCPCS: 11043; 11046; 97605; 99213; G0463

== ENCOUNTER 2018-05-04 14:11 | Outpatient (RCR) | payer OTHER, SELFPAY ==
[2018-04-03 11:29] VITALS: BMI 24.5
[2018-05-04 14:44] LABS: International Normalized Ratio 2.3; Prothrombin Time (Protime)PT. 25.1 SECONDS (11.7-14.9)
== END 2018-05-04 15:00 | disposition home or self-care (01) ==
LOC: HHLAB 14:11
PROVIDERS: Family Provider Internal Medicine; PCP Internal Medicine; Referring Provider Internal Medicine; Visit Provider Internal Medicine
DX: Z79.01 Long term (current) use of 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s (principal)
CPT/HCPCS: 85610

== ENCOUNTER 2018-05-07 08:15 | Outpatient (RCR) | payer SELFPAY ==
[2018-04-03 11:29] VITALS: BMI 24.5
[2018-04-28 01:33] VITALS: BP 112/81; PULSE 127; RESP 20; TEMP 36.9
[2018-05-07 08:14] VITALS: BP 155/98; PULSE 97; RESP 18; TEMP 36.8; BMI 24.5
--- NOTE | 2018-05-07 23:33 | PCM.WC.PN ---
Type of Wound Date of Service: 05/07/18 Chief Complaint: Nonhealing ulcer left BKA stump. History of Wound: Surgery 04/05/18 - 1. Surgical preparation left BKA stump with incision and drainage and excisional debridement nonhealing infected ulcer. 2. Partial ostectomy tibia for osteomyelitis. Wound care - VAC. Operative culture - soft tissue - negative. Bone - negative. Pathology - negative for ostemyelitis. He was discharged on Doxycycline and Levaquin. Prealbumin from 04/03/18 was 31.2. Encourage nutritional supplementation with protein to help the healing process. MRI left BKA stump in 10/13 showed osteomyelitis. His most recent INR is 2.0. His PCP is managing that. He states he is having trouble sleeping and is not getting adequate pain relief. He was recently given a Duragesic Patch. He is showing evidence of early CRPS. After surgeries in the past, he has had difficulties before with pain control. Progress of Wound: Improved. - Physical Exam Vital Signs Temp Pulse Resp BP 98.2 F 97 18 155/98 H 05/07/18 08:14 05/07/18 08:14 05/07/18 08:14 05/07/18 08:14 Wound Measurements and Assessment WC - Nurse 1 - General Ulcer Measurement Start: 05/07/18 08:14 Freq: Status: Active Protocol: Activity Type Activity Date Activity User E-Sign Co-Sign Detail Recorded Client Recorded Date Recorded By Document 05/07/18 08:14 DL [id number] 05/07/18 08:26 DL 05/07/18 08:14 Wound Center Nurse 1 [Ulcer Assessment] #5 L BKA stump -Current Size (cm) - Length 3.6 -Current Size (cm) - Width 5.2 -Current Size (cm) - Depth 0.5 -Total Square Cm 18.72 -Photo Taken No -Exudate Amt Large (67-100%) -Exudate Type Sanguineous -Wound Margin Distinct, Outline Attached -Granulation Amt Large (67-100%) -Granulation Quality Red -Necrosis Amt Small (1-33%) -Necrotic Tissue Type Adherent Slough -Structure Exposed N/A -Texture (Ami-wound Skin Appearance) No Abnormality -Moisture (Ami-wound Skin Appearance No Abnormality ) -Color (Ami-wound Skin Appearance) No Abnormality -Temperature (Ami-wound Skin No Abnormality Appearance) (Pt Warm) -Tenderness on Palpation (Ami-wound Yes Skin Appearance) -Ulcer Cleansing Wound Cleanser -Foul Odor after Cleansing No -Anesthetic Used 5% Lidocaine Gel ELIAS - Nurse 2 - General Ulcer CM Notes Start: 05/07/18 08:14 Freq: Status: Active Protocol: Activity Type Activity Date Activity User E-Sign Co-Sign Detail Recorded Client Recorded Date Recorded By Document 05/07/18 08:39 [id number] 05/07/18 08:39 05/07/18 08:39 Wound Center Nurse 2 [Procedure/Treatment] -Time 08:39 -Correct Patient Yes -Correct Side, Site, Position Yes -Correct Procedure Yes -Procedure Performed Yes -Type of Procedure Debridement -Clinical Debridement Muscle -Post Debridement Size (cm) - Length 3.6 -Post Debridement Size (cm) - Width 5.3 -Post Debridement Size (cm) - Depth 0.5 -Total Square Cm 19.08 -Wound/Ulcer Outcome Not Healed -Ulcer Cleansing Rinsed/ Irrigated with Saline -Foul Odor after Cleansing No -Bioengineered Tissue No -Bleeding Controlled with Pressure -Offloading No -Treatment Response Procedure Tolerated Well [See Physician Procedure note for Specifics] Pain Scale: 0-10 Numeric [Pain] -Is Patient Pain Free? Yes Debridement Note Post-Debridement Measurements/Treatment ELIAS - Nurse 2 - General Ulcer CM Notes Start: 05/07/18 08:14 Freq: Status: Active Protocol: Activity Type Activity Date Activity User E-Sign Co-Sign Detail Recorded Client Recorded Date Recorded By Document 05/07/18 08:39 [id number] 05/07/18 08:39 05/07/18 08:39 Wound Center Nurse 2 #5 L BKA stump -Time 08:39 -Correct Patient Yes -Correct Side, Site, Position Yes -Correct Procedure Yes -Procedure Performed Yes -Type of Procedure Debridement -Clinical Debridement Muscle -Post Debridement Size (cm) - Length 3.6 -Post Debridement Size (cm) - Width 5.3 -Post Debridement Size (cm) - Depth 0.5 -Total Square Cm 19.08 -Wound/Ulcer Outcome Not Healed -Ulcer Cleansing Rinsed/ Irrigated with Saline -Foul Odor after Cleansing No -Bioengineered Tissue No -Bleeding Controlled with Pressure -Offloading No -Treatment Response Procedure Tolerated Well Pain Scale: 0-10 Numeric Is Patient Pain Free? Yes Wound debrided: #4 Left BKA stump. Laterality: Left Wound Grade/Stage: 4. Type of Debridement: Excisional debridement Anesthesia Used: 4% Lidocaine Solution Depth: Down to and including healthy tissue, in the subcutaneous layer, to muscle, to bone - bone is palpable but not debrided. Percentage of wound debrided: 100 Instrument Used: 3mm curette Tissue Removed: subcutaneous tissue and muscle. Severity: Fat Layer Exposed - muscle is exposed. bone is palpable but not debrided. Amount of bleeding with debridement: Mild Bleeding Controlled with: Pressure Patient tolerated procedure well Assessment/Plan Assessment: 1. Nonhealing ulcer left BKA stump. 2. Pain left BKA stump. 3. 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 4. 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 6. s/p surgical preparation left BKA stump with incision and drainage and excisional debridement nonhealing infected ulcer and partial ostectomy tibia for osteomyelitis. 7. Early CRPS. Plan: Continue the VAC three times per week at 150 mmHg continuous suction. Continue Doxycycline and Levaquin. Prealbumin from the hospital was 31.2. Encourage nutritional supplementation with protein to help the healing process. His INR is 2.0. His PCP is managing that. Since the Pathology was negative for osteomyelitis, will be unable to proceed with HBO treatments at this time. Will proceed with a few more weeks of healing and tentatively schedule wound closure of his stump at the end of April. It has been scheduled for 05/25/18. Will bridge with Lovenox before and after surgery. Renewed his Percocet for pain (40 tabs) and for Valium for spasm (60 tabs), may increase to 10mg as needed. Wrote a script for Zoloft to help with the early CRPS. He will continue the Duragesic Patch. Followup 3 weeks.
== END 2018-05-28 23:59 ==
LOC: WC 08:15
PROVIDERS: Family Provider Internal Medicine; PCP Internal Medicine; Visit Provider Surgery
DX: T81.30XA Disruption of wound, unspecified, initial encounter (principal); Y83.8 Other surgical procedures as the cause of abnormal reaction of the patient, or of later complication, without mention of misadventure at the time of the procedure; Z87.891 Personal history of nicotine dependence; Z89.512 Acquired absence of left leg below knee
CPT/HCPCS: 11042; 97605

== ENCOUNTER 2018-05-25 16:32 | Inpatient (IN) | payer OTHER, SELFPAY ==
--- NOTE | 2018-05-24 22:20 | PCM.HP.BLA ---
History and Physical Date of Admission: 05/25/18 HISTORY OF PRESENT ILLNESS 52 year old man presents with complaints of pain in his left BKA stump. 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 He had a nonhealing ulcer anteriorly over the bone that is presently healed. He was recently admitted to [facility] for IV antibiotics because of this ulceration and underlying osteomyelitis. He had an MRI done on 10/21/17 which showed osteomyelitis. During his IV antibiotic therapy, he developed a blood clot and PE. He is now on Coumadin. Because of the pain in his stump, he is unable to use his prosthesis. He was taken to surgery on 04/05/18 where he underwent surgical preparation left BKA stump with incision and drainage and excisional debridement nonhealing infected ulcer and partial ostectomy tibia for osteomyelitis. He is using the VAC for wound care. Cultures were negative. Pathology was negative. He was discharged on Doxycycline and Levaquin. His left BKA stump ulcer is stable at this time. He presents for further debridement and wound closure. PAST MEDICAL HISTORY History of blood clots Limb weakness Difficulty balancing Chest pain Migraines Fatigue SOB (shortness of breath) HTN (hypertension) Anemia Arthritis Gallstones Vascular disease Nonhealing ulcer left BKA stump. Pain left BKA stump. 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 PAST SURGICAL HISTORY Amputation, traumatic, left BKA. right heart catheterization cholecystectomy surgical removal of testicle Surgical preparation left BKA stump with incision and drainage and excisional debridement nonhealing infected ulcer and partial ostectomy tibia for osteomyelitis - 04/05/18. ALLERGIES adhesive tape Penicillins MEDICATIONS atorvastatin carvedilol valium flexeril lovenox neurontin ambien warfarin lisinopril oxycodone-acetaminophen duragesic patch FAMILY HISTORY Other - CVA (cerebral vascular accident), Cancer, Heart disease SOCIAL HISTORY Smoking Status: Former smoker how long ago did patient quit smokin alcohol intake: never substance use type: does not use what type of physical activity do you participate in: walking frequency: daily REVIEW OF SYSTEMS General - Denies fever and weight loss. Has fatigue. Eyes - Denies cataracts and glaucoma. ENT - Denies nasal congestion and sore throat. Endocrine - Denies excessive thirst and urination. Skin - Denies suspicious lesions and skin cancer. Musculoskeletal - Has joint pain, joint stiffness, weakness of muscles and joints. Denies back pain and arthritis. Has left BKA. Has osteomyelitis. Neuro - Has headaches. Cardiovascular - Denies chest pain and shortness of breath with exertion. Has fatigue. Psych - Denies anxiety and depression. Respiratory - Denies chronic cough and shortness of breath. Patient is a former smoker. Gastrointestinal - Denies nausea, vomiting, diarrhea, and constipation. Hematologic - Has abnormal bruising and bleeding tendency as he is on Coumadin for a PE. Genitourinary - Denies hematuria and urinary frequency. PHYSICAL EXAMINATION General - Alert and Oriented HEENT - PERRL. EOMI. Throat is clear. Neck - Supple and nontender. No cervical adenopathy. Lungs - Clear to auscultation. Heart - Regular rate and rhythm. Abdomen - Soft and nondistended. Extremities - FROM except for left lower extremity secondary to left BKA. No axillary adenopathy. Radial pulses are palpable. Femoral pulses are palpable. On the left BKA stump anteriorly over the tibial bone is a nonhealing ulcer. Measures 5 x 3.5 cm. Good granulation tissue is seen. N exposed bone seen. Tenderness to palpation. No drainage expressed. No evidence of cellulitis, fluctuance, or purulent drainage. The length of the tibia from the anterior tibial tubercle is 11 cm. Neuro - CN II-XII grossly intact. Psych - Normal mood and affect. ASSESSMENT 1. Nonhealing ulcer left BKA stump. 2. Pain left BKA stump. 3. 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 4. 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 5. [facility] use of anticoagulation. PLAN He presents today for further operative debridement and partial ostectomy for osteomyelitis. May have to re-advance the posterior muscle flap to help with secondary wound closure of the stump ulcer. An anterior fasciocutaneous flap may be necessary to minimize tension on the stump closure. Would skin graft the donor wound site more proximally. Would have a drain for several days and be maintained on antibiotics at least until the drains are removed. His previous cultures from 04/05/18 were negative. Will send more cultures again at surgery. A positive culture may necessitate IV antibiotics in which case a PICC line would be placed. Depending on the severity of the osteomyelitis and the proximal extent of the osteomyelitis, I may not be able to revise the left BKA stump if too much of the tibia has to be removed to control the osteomyelitis. If so, then would need to proceed to a left AKA. At the time of the wound closure surgery, it would be done under general anesthesia and tourniquet control with a surgical observation overnight stay in the hospital. Am bridging his Coumadin with Lovenox. After healing has occurred and the swelling is controlled with a stump production clerks supervisor, then he can be evaluated with his [employer] for revision of his prosthesis. Patient was informed of the risks and complications of the procedure including alternatives to surgery. These were discussed with the patient personally. Patient voices understanding and wishes to proceed.
[2018-05-25] VITALS (13 sets, daily range): BP systolic 114–155; BP diastolic 72–105; PULSE 78–100; RESP 16–20; TEMP 36.3–36.9; O2SAT 88–100; BMI 25.0
[2018-05-25] MEDS: Vancomycin IV 1,000 MG/200 ML BAG 200 MG IV ×2 (10:49→22:39)
[2018-05-25 10:51] LABS: Prothrombin Time Fingerstick 12.6 SEC (11.9-14.4)
[2018-05-25 10:56] LABS: Hematocrit 37.3 % (40-54); Hemoglobin 12.2 g/dl (13.0-16.5); Mean Corp Hgb Conc 32.7 g/gl (32-36); Mean Corpuscular Hgb 30.7 pg (27.0-32.0); Mean Corpuscular Volume 93.7 fL (80-94); Mean Platelet Vol. 9.1 fl (6.2-12.0); Platelet Count 381 K/mm3 (150-450); RBC Distribution Width CV 14.6 % (11.6-14.6); RBC Distribution Width SD 49.8 fl (35.1-43.9); Red Blood Count 3.98 M/mm3 (4.6-6.2); Scan Indicated on CBC? Y/N NO; White Blood Count 10.2 K/mm3 (4.4-11.0)
--- NOTE | 2018-05-25 11:45 | DEB_PTH ---
PATIENT: JANIE CHIN LOC: MS2 U#:[id number] AGE/SX: 52/M [place] [facility] [place]/25/[address]: Dr. Lynne Robledo DO : 1965 BED: 1 DIS: 05/30/2018 SPEC #: [id number] RECD: 05/28/18 10:30 STATUS: DAVID REMichael #: [id number] NICK: 05/25/18 11:[address]: Francois Massey DEPT: SURGICAL PATHOLOGY RECD BY: Palmer Ruelas ENTERED: 05/28/18 11:53 SP TYPE: KETIH TISS OTHR DR: DO Dr. Alton Cesar DO Dr. Efewongbe Oleghe, MD Dr. James A Slaby, MD Dr. Marc Fiorentino, MD Tissues: Soft tissues, NOS Procedures: Special Stain Group I Surgery Specimen Level IV AFB Stain (control) GMS Stain (control) Comments: @ Ordering doctor for SUIII edited from to @ by JOSEOD at 05/28/18 1447 @ Submitting doctor edited from to @ by JOSEOD at 05/28/18 1447 HEADER OPERATION: Below knee amputation, stump, excision, debride ulcer, partial ostectomy PRE-OP DIAGNOSIS: Nonhealing ulcer left below knee stump; pain left below knee stump; osteomyelitis tibia in left below knee stump TISSUE SUBMITTED: Debrided soft tissue nonhealing ulcer, below knee amputation MICROSCOPIC DIAGNOSIS Skin and soft tissue of ulcer, below knee amputation: Ulceration with associated acute and chronic inflammation, granulation and benign histiocytic reaction. Negative for acid-fast bacilli and fungal organisms. AM:rosalee 05/30/18 COMMENT AFB and GMS stains with matched controls were used in the evaluation of this case. Minute fragments of embedded bony tissue with associated benign histiocytic reaction. MICROSCOPIC DESCRIPTION Slides are reviewed. GROSS DESCRIPTION Received in fixative is one container labeled with the patient's name and designated soft tissue below the knee amputation stump. The specimen consists of multiple irregular fragments of rush soft tissue ranging in size from 0.7 to 5 cm. The largest fragment contains kristen of grossly unremarkable rush skin with a centrally located ulcer measuring 3.5 x 2.5 x 1 cm. Serial sections do not reveal mass lesions. Printer Repair Technician sections are submitted in one cassette. / AM:rosalee 05/28/18 TC:2 CPT: 80902, 02431 x2
[2018-05-25] MEDS: levoFLOXacin IV 500 MG/100 ML BAG 100 MG IV (11:57)
[2018-05-25] MEDS: Mupirocin Ointment 22gm Tube 1 APPLIC (16:14)
--- NOTE | 2018-05-25 16:28 | PCM.IMDPSTOP ---
Immediate Post-Op Note Date of Procedure: 05/25/18 Primary Surgeon/Physician: Francois Massey MD transformer assembly supervisor: Penelope Lan. transformer assembly supervisor: Theresa Lutz. Pre-Operative Diagnosis: 1. Nonhealing ulcer left BKA stump. 2. Pain left BKA stump. 3. 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 4. 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 5. [facility] use of anticoagulation. Post-Operative Diagnosis: Same. Surgery/Procedure Performed:: 1. Surgical preparation left BKA stump with excisional debridement nonhealing infected ulcer. 2. Complex secondary wound closure revision reconstruction with re-advancement muscle flap and bipedicle anterior leg fasciocutaneous advancement flap and STSG from the left flank (60 cm2). Description of Surgical Findings:: 52 year old man presents with complaints of pain in his left BKA stump. 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 He had a nonhealing ulcer anteriorly over the bone that is presently healed. He was recently admitted to [facility] for IV antibiotics because of this ulceration and underlying osteomyelitis. He had an MRI done on 10/21/17 which showed osteomyelitis. During his IV antibiotic therapy, he developed a blood clot and PE. He is now on Coumadin. Because of the pain in his stump, he is unable to use his prosthesis. He was taken to surgery on 04/05/18 where he underwent surgical preparation left BKA stump with incision and drainage and excisional debridement nonhealing infected ulcer and partial ostectomy tibia for osteomyelitis. He is using the VAC for wound care. Cultures were negative. Pathology was negative. He was discharged on Doxycycline and Levaquin. His left BKA stump ulcer is stable at this time. He presents for further debridement and wound closure. Today the patient underwent surgical preparation left BKA stump with excisional debridement nonhealing infected ulcer and complex secondary wound closure revision reconstruction with re-advancement muscle flap and bipedicle anterior leg fasciocutaneous advancement flap and STSG from the left flank (60 cm2). IV Fluids - 1500 ml. Urine Output - 500 ml. I used Damián absorbable hemostat, (I used 2 vials, one in the left BKA stump and one in the left flank donor site). Reference Number - [id number]. Lot Number - [id number]. Expiration - February 23, 2023. Estimated Blood Loss: 50 ml. Specimen's removed: Nonhealing ulcer left BKA stump to Pathology and Microbiology. Drains: Howard. Type of Anesthesia:: General - Admit VTE Documentation VTE Present on Admission: No - Patient is on Coumadin for history of PE. VTE Mechan Device Prophylaxis: SCD's VTE Pharm Prophylaxis ordered?: Yes
--- NOTE | 2018-05-25 16:31 | OP.PN_ITS ---
Immediate Post-Op Note Date of Procedure: 05/25/18 Primary Surgeon/Physician: Francois Massey MD toll line repairer: Penelope Lan. toll line repairer: Theresa Lutz. Pre-Operative Diagnosis: 1. Nonhealing ulcer left BKA stump. 2. Pain left BKA stump. 3. 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 4. 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 5. residential use of anticoagulation. Post-Operative Diagnosis: Same. Surgery/Procedure Performed:: 1. Surgical preparation left BKA stump with excisional debridement nonhealing infected ulcer. 2. Complex secondary wound closure revision reconstruction with re-advancement muscle flap and bipedicle anterior leg fasciocutaneous advancement flap and STSG from the left flank (60 cm2). Description of Surgical Findings:: 52 year old man presents with complaints of pain in his left BKA stump. 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 He had a nonhealing ulcer anteriorly over the bone that is presently healed. He was recently admitted to [facility] for IV antibiotics because of this ulceration and underlying osteomyelitis. He had an MRI done on 10/21/17 which showed osteomyelitis. During his IV antibiotic therapy, he developed a blood clot and PE. He is now on Coumadin. Because of the pain in his stump, he is unable to use his prosthesis. He was taken to surgery on 04/05/18 where he underwent s urgical preparation left BKA stump with incision and drainage and excisional debridement nonhealing infected ulcer and partial ostectomy tibia for osteomyelitis. He is using the VAC for wound care. Cultures were negative. Pathology was negative. He was discharged on Doxycycline and Levaquin. His left BKA stump ulcer is stable at this time. He presents for further debridement and wound closure. Today the patient underwent surgical preparation left BKA stump with excisional debridement nonhealing infected ulcer and complex secondary wound closure revision reconstruction with re-advancement muscle flap and bipedicle anterior leg fasciocutaneous advancement flap and STSG from the left flank (60 cm2). IV Fluids - 1500 ml. Urine Output - 500 ml. I used Damián absorbable hemostat, (I used 2 vials, one in the left BKA stump and one in the left flank donor site). Reference Number - [id number]. Lot Number - [id number]. Expiration - February 23, 2023. Estimated Blood Loss: 50 ml. Specimen's removed: Nonhealing ulcer left BKA stump to Pathology and Microbiology. Drains: Howard. Type of Anesthesia:: General - Admit VTE Documentation VTE Present on Admission: No - Patient is on Coumadin for history of PE. VTE Mechan Device Prophylaxis: SCD's VTE Pharm Prophylaxis ordered?: Yes
[2018-05-25 17:53] LABS: Anion Gap 6 (5-15); BUN 16 mg/dL (7-18); BUN/Creat Ratio 12.1 RATIO (10-20); Calcium,Total 8.8 mg/dL (8.5-10.1); Chloride 107 mmol/L (98-107); Creatinine, Serum 1.32 mg/dL (0.70-1.30); EST Glomerular Filtration Rate 60 mL/min (>60); Est Glom Filt Rate - Afr Amer 73 mL/min (>60); Estimated Creatinine Clearance 76.11 ml/min; Glucose 86 mg/dL (74-106); Potassium 4.6 mmol/L (3.5-5.1); Sodium Level 137 mmol/L (136-145)
--- NOTE | 2018-05-25 18:12 | PCM.RX.CS ---
Consult Pharmacy has been consulted to manage selected antiobiotic: Vancomycin Type of Consult: New start Suspected Infection: Skin/Soft tissue Prior Doses of Antibiotics Received/Current Regimen: VANCOMYCIN 1000MG IV PREOP X1 05/25/18 @1049 Labs: Sodium 137 mmol/L (136-145) 05/25/18 17:21 Potassium 4.6 mmol/L (3.5-5.1) 05/25/18 17:21 Chloride 107 mmol/L (98-107) 05/25/18 17:21 Carbon Dioxide 24.0 mmol/L (21.0-32.0) 05/25/18 17:21 Anion Gap 6 (5-15) 05/25/18 17:21 BUN 16 mg/dL (7-18) 05/25/18 17:21 Creatinine 1.32 mg/dL (0.70-1.30) H 05/25/18 17:21 Est GFR (MDRD) Af Amer 73 mL/min (>60) 05/25/18 17:21 Est GFR (MDRD) Non-Af 60 mL/min (>60) 05/25/18 17:21 BUN/Creatinine Ratio 12.1 RATIO (10-20) 05/25/18 17:21 Glucose 86 mg/dL (74-106) 05/25/18 17:21 Weight used for dosin.4 kg Estimated Creatinine Clearance: 76 ML/MIN Goal Trough: 15-20 mcg/mL Pharmacy Plan for Drug Dosing: PLAN/RECOMMENDATIONS 1. VANCOMYCIN 1000MG IV Q12HRS TO START 05/25/18 @ 2300 2. TROUGH SCHEDULED FOR 05/27/18 @1030 3. Pharmacy Service will continue to monitor and adjust dosing as required.
[2018-05-25] MEDS: HYDROmorphone 1 MG/ML Syringe IV (19:08)
--- NOTE | 2018-05-25 19:34 | PCM.OPRPT ---
Report of Operation Date of Procedure: 05/25/18 Pre-Operative Diagnosis: 1. Nonhealing ulcer left BKA stump. 2. Pain left BKA stump. 3. 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 4. 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 Post-Operative Diagnosis: Same. Surgery/Procedure Performed:: 1. Surgical preparation left BKA stump with excisional debridement nonhealing infected ulcer. 2. Complex secondary wound closure revision reconstruction with re-advancement muscle flap and bipedicle anterior leg fasciocutaneous advancement flap and STSG from the left flank (60 cm2). Description of Surgical Findings:: 52 year old man presents with complaints of pain in his left BKA stump. 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 He had a nonhealing ulcer anteriorly over the bone that is presently healed. He was recently admitted to [facility] for IV antibiotics because of this ulceration and underlying osteomyelitis. He had an MRI done on 10/21/17 which showed osteomyelitis. During his IV antibiotic therapy, he developed a blood clot and PE. He is now on Coumadin. Because of the pain in his stump, he is unable to use his prosthesis. He was taken to surgery on 04/05/18 where he underwent surgical preparation left BKA stump with incision and drainage and excisional debridement nonhealing infected ulcer and partial ostectomy tibia for osteomyelitis. He is using the VAC for wound care. Cultures were negative. Pathology was negative. He was discharged on Doxycycline and Levaquin. His left BKA stump ulcer is stable at this time. He presents for further debridement and wound closure. Patient was informed of the risks and complications of the procedure including alternatives to surgery. These were discussed with the patient personally. Patient voices understanding and wishes to proceed. IV Fluids - 1500 ml. Urine Output - 500 ml. I used Damián absorbable hemostat, (I used 2 vials, one in the left BKA stump and one in the left flank donor site). Reference Number - [id number]. Lot Number - [id number]. Expiration - February 23, 2023. debt recovery officer: Penelope Lan. debt recovery officer: Theresa Lutz. Type of Anesthesia:: General Specimen's removed: Nonhealing ulcer left BKA stump to Pathology and Microbiology. Drains: Howard. Estimated Blood Loss (mL): 50 ml. Fluids Replaced: 2000 ml (IV Fluids 1500 ml, Urine Output 500 ml). Description of Procedure: Patient was taken to OR in supine position and was placed under general anesthesia. The left BKA stump was prepped and draped in the usual fashion. A tourniquet was placed on the left thigh. SCD was placed for DVT prophylaxis on the right leg. Perioperative antibiotics were given intravenously. Using xylocaine with epinephrine, the left BKA stump ulcer was infiltrated. Incisions were made around the ulcer which extended down to the bone. I extended the incision posteriorly through the previous scar to mobilize the posterior muscle flap. The debrided tissue was sent to Pathology for analysis and to Microbiology for culture. A positive culture may necessitate antibiotic modification. The gastrocnemius and soleus muscles were scarred down posterior to the bone. I freed up the muscles in order to advance them over the bone for extra padding. I freed up these muscles from the posterior flap to help advance these tissue layers independently. This separation helped to decrease the tension of the closure over the bone as well as the skin closure. I extended the previous incision posteriorly as I dissected more of the muscle flap to aid in re-advancement of the muscle over the tibial bone. The bone biopsy from the previous surgery in March was negative for osteomyelitis. So no further bone needs to be debrided. I want to be conservative with shortening of the bone to minimize problems with the prosthesis. Too short of a stump makes it difficult to manage the prosthesis. I took an oscillating pb and smoothed out the tibial bone edge to minimize sharp edges that can lead to points of pain in the future. I also smoothed out the bone anteriorly with a slight bevel to minimize tension on the anterior skin. In order to minimize too much tension on the stump closure, I made a relaxing incision on the anterior skin just distal to the tibial tubercle area. I dissected down to the fascia and made a fasciotomy to elevate a bipedicle fasciocutaneous flap. I then advanced this bipedicle fasciocutaneous flap distally to close the stump without tension. This anterior defect will be skin grafted. The size of the defect to be skin grafted was 5 x 12 cm or 60 cm2. I irrigated the wound with saline. Hemostasis was obtained with electrocautery. Bleeding was manageable with the dissection, so the tourniquet was not inflated. I placed a size 15 Howard drain through a separate stab incision posteromedially and secured to the skin with 3-0 Nylon suture. The drain was used to drain the area of the bone and more superficially in the subcutaneous tissue. I sprayed Damián absorbable hemostat into the wound to minimize seroma formation postoperatively. I then closed the stump defect in multiple layers with 2-0 Vicryl figure of eight interrupted sutures for the muscle flap layer to the anterior periosteum centrally to cover the bone and adjacent to the bone to the tibialis anterior muscle. This will give extra padding over the bone for the prosthesis. The fascial layer was closed with 2-0 Vicryl figure of eight interrupted sutures. The deep dermis and subcutaneous tissue was approximated with 3-0 Monocryl interrupted sutures. The skin was approximated with 3-0 Prolene vertical mattress and simple interrupted sutures. No tension was noted on the stump incision line. I then infiltrated an area on the left flank with xylocaine with epinephrine for the skin graft. An elliptical incision was made into the subcutaneous tissue. The subcutaneous tissue was removed from the undersurface of the dermis as well as some of the deeper dermis thus fashioning a thick split thickness skin graft. The skin graft was placed in saline. Extra subcutaneous tissue was removed from the donor area to allow easier wound closure. Hemostasis was obtained with electrocautery. I sprayed Damián into the wound to minimize seroma formation. The donor incision was closed in multiple layers with 2-0 Vicryl figure of eight interrupted sutures for the Nalini's fascial layer. The deep dermis and subcutaneous tissue was approximated with 3-0 Monocryl interrupted sutures. The skin was approximated with 3-0 V lock unidirectional barbed running subcuticular suture. This was followed by Histoacryl skin tissue adhesive. A gauze dressing was applied. The skin graft was placed on stretch and meshed with a 15 blade. The thick split thickness skin graft was then placed in the anterior leg wound and secured to the skin edges with 3-0 Chromic simple interrupted sutures. 3-0 Chromic sutures were also used for central quilting stabilization. Xeroform gauze was placed on the skin graft followed by Bactroban ointment and 4x4 gauze soaked in saline and secured to the skin edge with 3-0 Nylon tie over stent suture dressing. Bactroban ointment was also applied to the stump suture incision also followed by Xeroform gauze and 4x4 gauze and Kerlix gauze wrap and ABD pads followed by a compression ALIZE wrap. Patient tolerated the procedure well and was sent to PACU in satisfactory condition. Patient will be sent upstairs for continued postop care. The skin graft dressing will be removed early next week. Grafts/Implants Used: None. - Complications None. - Admit VTE Documentation VTE Present on Admission: No - Patient is on Coumadin for history of PE. VTE Mechan Device Prophylaxis: SCD's VTE Pharm Prophylaxis ordered?: Yes Code Visit Surgery Charges CPT - 31151-48 ICD-10 - T87.89, Z87.39, Z89.512, Z79.01, Z87.891 35343 T87.89, Z87.39, Z89.512, Z79.01, Z87.891 05924 T87.89, Z87.39. Z89.512, Z79.01, Z87.891
[2018-05-25] MEDS: oxyCODONE 5 MG Tablet 10 MG PO (22:23)
[2018-05-25] MEDS: Gabapentin 600 MG Tablet 1800 MG PO (22:31)
[2018-05-25] MEDS: Enoxaparin 80 MG/0.8 ML Syringe SC (22:31)
[2018-05-25] MEDS: Atorvastatin Calcium 40 MG Tablet PO (22:32)
[2018-05-26] MEDS: Zolpidem Tartrate 5 MG Tablet PO (00:12)
[2018-05-26 02:31] VITALS: BP 110/68; PULSE 86; RESP 16; TEMP 36.8; O2SAT 99
[2018-05-26] MEDS: oxyCODONE 5 MG Tablet 10 MG PO ×3 (02:32→17:25)
[2018-05-26] MEDS: HYDROmorphone 1 MG/ML Syringe IV (06:12)
[2018-05-26] MEDS: 0.9% NaCl Peripheral Flush Adult/Peds IV (06:13)
[2018-05-26 06:57] LABS: Hematocrit 32.6 % (40-54); Hemoglobin 10.7 g/dl (13.0-16.5); Mean Corp Hgb Conc 32.8 g/gl (32-36); Mean Corpuscular Hgb 31.8 pg (27.0-32.0); Mean Corpuscular Volume 96.7 fL (80-94); Mean Platelet Vol. 9.4 fl (6.2-12.0); Platelet Count 332 K/mm3 (150-450); RBC Distribution Width CV 14.2 % (11.6-14.6); RBC Distribution Width SD 47.5 fl (35.1-43.9); Red Blood Count 3.37 M/mm3 (4.6-6.2)
[2018-05-26 07:00] LABS: Scan Indicated on CBC? Y/N NO
[2018-05-26 07:26] LABS: Anion Gap 8 (5-15); BUN 20 mg/dL (7-18); BUN/Creat Ratio 13.7 RATIO (10-20); Calcium,Total 8.7 mg/dL (8.5-10.1); Chloride 101 mmol/L (98-107); Creatinine, Serum 1.46 mg/dL (0.70-1.30); EST Glomerular Filtration Rate 54 mL/min (>60); Est Glom Filt Rate - Afr Amer 65 mL/min (>60); Estimated Creatinine Clearance 68.81 ml/min; Glucose 96 mg/dL (74-106); Potassium 4.2 mmol/L (3.5-5.1); Prealbumin 17.5 mg/dL (20.0-40.0); Sodium Level 137 mmol/L (136-145)
[2018-05-26 07:44] VITALS: BP 114/74; PULSE 92; RESP 18; TEMP 36.8; O2SAT 95
[2018-05-26] MEDS: Gabapentin 600 MG Tablet 1800 MG PO ×2 (07:48→21:25)
[2018-05-26] MEDS: Docusate Sodium 100 MG Capsule PO ×2 (07:48→21:25)
[2018-05-26] MEDS: Carvedilol 12.5 MG Tablet PO (07:48)
[2018-05-26] MEDS: Lisinopril 20 MG Tablet PO (07:49)
[2018-05-26] MEDS: levoFLOXacin IV 500 MG/100 ML BAG 100 MG IV (09:19)
[2018-05-26] MEDS: Enoxaparin 80 MG/0.8 ML Syringe SC ×2 (09:19→21:26)
[2018-05-26] MEDS: Vancomycin IV 1,000 MG/200 ML BAG 200 MG IV (10:57)
[2018-05-26 11:02] VITALS: O2SAT 97
--- NOTE | 2018-05-26 11:35 | OP.PCM_ITS ---
Report of Operation Date of Procedure: 05/25/18 Pre-Operative Diagnosis: 1. Nonhealing ulcer left BKA stump. 2. Pain left BKA stump. 3. 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 4. 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 Post-Operative Diagnosis: Same. Surgery/Procedure Performed:: 1. Surgical preparation left BKA stump with excisional debridement nonhealing infected ulcer. 2. Complex secondary wound closure revision reconstruction with re-advancement muscle flap and bipedicle anterior leg fasciocutaneous advancement flap and STSG from the left flank (60 cm2). Description of Surgical Findings:: 52 year old man presents with complaints of pain in his left BKA stump. 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 He had a nonhealing ulcer anteriorly over the bone that is presently healed. He was recently admitted to [facility] for IV antibiotics because of this ulceration and underlying osteomyelitis. He had an MRI done on 10/21/17 which showed osteomyelitis. During his IV antibiotic therapy, he developed a blood clot and PE. He is now on Coumadin. Because of the pain in his stump, he is unable to use his prosthesis. He was taken to surgery on 04/05/18 where he underwent ramírez rgical preparation left BKA stump with incision and drainage and excisional debridement nonhealing infected ulcer and partial ostectomy tibia for osteomyelitis. He is using the VAC for wound care. Cultures were negative. Pathology was negative. He was discharged on Doxycycline and Levaquin. His left BKA stump ulcer is stable at this time. He presents for further debridement and wound closure. Patient was informed of the risks and complications of the procedure including alternatives to surgery. These were discussed with the patient personally. Patient voices understanding and wishes to proceed. IV Fluids - 1500 ml. Urine Output - 500 ml. I used Damián absorbable hemostat, (I used 2 vials, one in the left BKA stump and one in the left flank donor site). Reference Number - [id number]. Lot Number - [id number]. Expiration - February 23, 2023. gauger chief: Penelope Lan. gauger chief: Theresa Lutz. Type of Anesthesia:: General Specimen's removed: Nonhealing ulcer left BKA stump to Pathology and Microbiology. Drains: Howard. Estimated Blood Loss (mL): 50 ml. Fluids Replaced: 2000 ml (IV Fluids 1500 ml, Urine Output 500 ml). Description of Procedure: Patient was taken to OR in supine position and was placed under general anesthesia. The left BKA stump was prepped and draped in the usual fashion. A tourniquet was placed on the left thigh. SCD was placed for DVT prophylaxis on the right leg. Perioperative antibiotics were given intravenously. Using xylocaine with epinephrine, the left BKA stump ulcer was infiltrated. Incisions were made around the ulcer which extended down to the bone. I extended the incision posteriorly through the previous scar to mobilize the posterior muscle flap. The debrided tissue was sent to Pathology for analysis and to Microbiology for culture. A positive culture may necessitate antibiotic modification. The gastrocnemius and soleus muscles were scarred down posterior to the bone. I freed up the muscles in order to advance them over the bone for extra padding. I freed up these muscles from the posterior flap to help advance these tissue layers independently. This separation helped to decrease the tension of the closure over the bone as well as the skin closure. I extended the previous incision posteriorly as I dissected more of the muscle flap to aid in re-advancement of the muscle over the tibial bone. The bone biopsy from the previous surgery in March was negative for osteomyelitis. So no further bone needs to be debrided. I want to be conservative with shortening of the bone to minimize problems with the prosthesis. Too short of a stump makes it difficult to manage the prosthesis. I took an oscillating pb and smoothed out the tibial bone edge to minimize sharp edges that can lead to points of pain in the future. I also smoothed out the bone anteriorly with a slight bevel to minimize tension on the anterior skin. In order to minimize too much tension on the stump closure, I made a relaxing incision on the anterior skin just distal to the tibial tubercle area. I dissected down to the fascia and made a fasciotomy to elevate a bipedicle fasciocutaneous flap. I then advanced this bipedicle fasciocutaneous flap distally to close the stump without tension. This anterior defect will be skin grafted. The size of the defect to be skin grafted was 5 x 12 cm or 60 cm2. I irrigated the wound with saline. Hemostasis was obtained with electrocautery. Bleeding was manageable with the dissection, so the tourniquet was not inflated. I placed a size 15 Howard drain through a separate stab incision posteromedially and secured to the skin with 3- 0 Nylon suture. The drain was used to drain the area of the bone and more superficially in the subcutaneous tissue. I sprayed Damián absorbable hemostat into the wound to minimize seroma formation postoperatively. I then closed the stump defect in multiple layers with 2-0 Vicryl figure of eight interrupted sutures for the muscle flap layer to the anterior periosteum centrally to cover the bone and adjacent to the bone to the tibialis anterior muscle. This will give extra padding over the bone for the prosthesis. The fascial layer was closed with 2-0 Vicryl figure of eight interrupted sutures. The deep dermis and subcutaneous tissue was approximated with 3-0 Monocryl interrupted sutures. The skin was approximated with 3-0 Prolene vertical mattress and simple interrupted sutures. No tension was noted on the stump incision line. I then infiltrated an area on the left flank with xylocaine with epinephrine for the skin graft. An elliptical incision was made into the subcutaneous tissue. The subcutaneous tissue was removed from the undersurface of the dermis as well as some of the deeper dermis thus fashioning a thick split thickness skin graft. The skin graft was placed in saline. Extra subcutaneous tissue was removed from the donor area to allow easier wound closure. Hemostasis was obtained with electrocautery. I sprayed Damián into the wound to minimize seroma formation. The donor incision was closed in multiple layers with 2-0 Vicryl figure of eight interrupted sutures for the Nalini's fascial layer. The deep dermis and subcutaneous tissue was approximated with 3-0 Monocryl interrupted sutures. The skin was approximated with 3-0 V lock unidirectional barbed running subcuticular suture. This was followed by Histoacryl skin tissue adhesive. A gauze dressing was applied. The skin graft was placed on stretch and meshed with a 15 blade. The thick s plit thickness skin graft was then placed in the anterior leg wound and secured to the skin edges with 3-0 Chromic simple interrupted sutures. 3-0 Chromic sutures were also used for central quilting stabilization. Xeroform gauze was placed on the skin graft followed by Bactroban ointment and 4x4 gauze soaked in saline and secured to the skin edge with 3-0 Nylon tie over stent suture dressing. Bactroban ointment was also applied to the stump suture incision also followed by Xeroform gauze and 4x4 gauze and Kerlix gauze wrap and ABD pads followed by a compression ALIZE wrap. Patient tolerated the procedure well and was sent to PACU in satisfactory condition. Patient will be sent upstairs for continued postop care. The skin graft dressing will be removed early next week. Grafts/Implants Used: None. - Complications None. - Admit VTE Documentation VTE Present on Admission: No - Patient is on Coumadin for history of PE. VTE Mechan Device Prophylaxis: SCD's VTE Pharm Prophylaxis ordered?: Yes Code Visit Surgery Charges CPT - 69013-08 ICD-10 - T87.89, Z87.39, Z89.512, Z79.01, Z87.891 57656 T87.89, Z87.39, Z89.512, Z79.01, Z87.891 08263 T87.89, Z87.39. Z89.512, Z79.01, Z87.891
--- NOTE | 2018-05-26 11:37 | CASEMGMT ---
DARSHAN WINCHESTER assessment: Face to Face with patient for initial transition planning/care coordination assessment. DARSHAN WINCHESTER introduced self and role at [facility], pt voices understanding and consents to assessment at this time. Pt is lying in bed in no distress at this time. Pt is A/Ox4 at this time and answers all questions appropriatelyy at this time. Care providers, pharmacy, and demographics verified at this time. PCP: Gavin Specialists: Shilpa, plastic surgeon [facility]acy[facility] Insurance: Cigna Prescription Benefit: Cigna Living Will/HPOA: Pt states that he has LW/HPOA but they are not currently on file at [facility]. Pt states that his , Roxana Alcantar, is HPOA. LNOK: Roxana Alcantar, Living Arrangements: Pt states lives with and children in 1 story home and states no concerns at home at this time. Pt states completes ADL's with no concerns. Transportation: Pt states drives self and states no transportation concerns at this time. DME/HHC: Pt states has the following DME: tub bench, grab bars, w/c, and prosthesis. Pt states has had [facility]HC in the past and would like them again, if needed. Pt states no hx of SNF. Pt states no concerns with going home at time of discharge. 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 Pt states quit smoking and drinks ETOH occasionally. Pt states no further questions/concerns/needs at this time. CM to follow for further discharge planning/needs. Advised pt to ask for CM if any further questions/concerns/needs arise, voices understanding. Plan: Home-blood cx results pending, may need HHC. [place] DARSHAN WINCHESTER
--- NOTE | 2018-05-26 13:14 | PN.SURG_ITS ---
Subjective: Postop #1 Patient is resting comfortably. - Physical Exam General: Alert, Oriented x3 HEENT: PERRLA, EOMI Oral: Moist Mucosa Neck: Supple Abdomen: Soft, Non-Distended Skin: Incision - Left BKA stump dressing is dry. Neurological: Cranial nerves II-XII grossly intact Psych/Mental Status: Normal Affect, Appropriate Vital Signs Temp Pulse Resp BP Pulse Ox 98.2 F 92 18 114/74 97 05/26/18 07:44 05/26/18 07:44 05/26/18 07:44 05/26/18 07:44 05/26/18 11:02 Oxygen Flow Rate (L/min) 3 Oxygen Delivery Method Nasal Cannula Weight: 195 lb 0.017 oz Body Mass Index (BMI) 25.0 Intake and Output for Last 24 Hours 05/24/18 05/25/18 05/26/18 23:59 23:59 23:59 Intake Total 2300 / 2300 2033 / 2033 Output Total 690 / 690 1515 / 1515 Balance 1610 / 1610 518 / 518 Drainage 5 ml yesterday. Microbiology Past 72 Hours 05/25/18 16:24 Wound Culture - Preliminary Tissue Ulcer - Open/Non-Healing Wound No growth-Final to follow Laboratory Tests Past 24 Hrs 05/25/18 05/26/18 05/26/18 17:21 06:20 06:20 WBC 8.0 RBC 3.37 L Hgb 10.7 L Hct 32.6 L MCV 96.7 H MCH 31.8 MCHC 32.8 RDW 14.2 RDW Differential 47.5 H Plt Count 332 MPV 9.4 Sodium 137 137 Potassium 4.6 4.2 Chloride 107 101 Carbon Dioxide 24.0 28.0 Anion Gap 6 8 BUN 16 20 H Creatinine 1.32 H 1.46 H Estim Creat Clear Calc 76.11 68.81 Est GFR (MDRD) Af Amer 73 65 Est GFR (MDRD) Non-Af 60 54 L BUN/Creatinine Ratio 12.1 13.7 Glucose 86 96 Calcium 8.8 8.7 Prealbumin 17.5 L Medical Necessity - Tobacco Use Smoking Status: Former smoker Assessment/Plan All Active Problems (Last Updated 04/09/18 @ 09:50 by Gustavo Baird MD) Thrush, oral (Acute) 1. Nonhealing ulcer left BKA stump. 2. Pain left BKA stump. 3. 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 4. 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 6. s/p surgical preparation left BKA stump with excisional debridement nonhealing infected ulcer and complex secondary wound closure revision reconstruction with re-advancement muscle flap and bipedicle anterior leg fasciocutaneous advancement flap and STSG from the left flank (60 cm2). Patient is resting comfortably. Operative cultures are pending. His Creatinine increased slightly from 1.32 to 1.46. Will stop the Vancomycin. Will begin Doxycycline. Continue the Levaquin and Flagyl. Will recheck Creatinine tomorrow. Pain reasonably controlled on IV analgesia. Will change the graft dressing on Monday. Continue Lovenox. The Coumadin has been restarted. Will recheck INR prior to discharge.
[2018-05-26 14:00] VITALS: BP 92/58; PULSE 99; RESP 18; TEMP 37.2; O2SAT 99
[2018-05-26] MEDS: Doxycycline 100 MG CAPSULE PO ×2 (14:45→21:25)
[2018-05-26 20:10] VITALS: BP 95/57; PULSE 90; RESP 16; TEMP 36.6; O2SAT 98
[2018-05-26] MEDS: Atorvastatin Calcium 40 MG Tablet PO (21:25)
[2018-05-27] MEDS: oxyCODONE 5 MG Tablet 10 MG PO ×2 (00:18→13:06)
[2018-05-27 02:10] VITALS: BP 104/60; PULSE 88; RESP 14; TEMP 36.4; O2SAT 98
[2018-05-27 06:15] LABS: Hematocrit 30.2 % (40-54); Hemoglobin 9.7 g/dl (13.0-16.5); Mean Corp Hgb Conc 32.1 g/gl (32-36); Mean Corpuscular Hgb 31.2 pg (27.0-32.0); Mean Corpuscular Volume 97.1 fL (80-94); Mean Platelet Vol. 9.4 fl (6.2-12.0); Platelet Count 294 K/mm3 (150-450); RBC Distribution Width CV 14.3 % (11.6-14.6); RBC Distribution Width SD 48.1 fl (35.1-43.9); Red Blood Count 3.11 M/mm3 (4.6-6.2); White Blood Count 10.4 K/mm3 (4.4-11.0)
[2018-05-27 06:18] LABS: Scan Indicated on CBC? Y/N NO
[2018-05-27 06:30] LABS: Anion Gap 9 (5-15); BUN 31 mg/dL (7-18); BUN/Creat Ratio 18.2 RATIO (10-20); Calcium,Total 8.9 mg/dL (8.5-10.1); Chloride 101 mmol/L (98-107); EST Glomerular Filtration Rate 45 mL/min (>60); Est Glom Filt Rate - Afr Amer 55 mL/min (>60); Glucose 96 mg/dL (74-106); Potassium 4.6 mmol/L (3.5-5.1); Sodium Level 136 mmol/L (136-145)
[2018-05-27 08:15] VITALS: BP 100/58; PULSE 87; RESP 16; TEMP 36.9; O2SAT 97
[2018-05-27] MEDS: Lisinopril 20 MG Tablet PO (08:15)
[2018-05-27] MEDS: Gabapentin 600 MG Tablet 1800 MG PO ×2 (08:15→21:24)
[2018-05-27] MEDS: Docusate Sodium 100 MG Capsule PO ×2 (08:15→21:24)
[2018-05-27] MEDS: Carvedilol 12.5 MG Tablet PO (08:15)
[2018-05-27] MEDS: Doxycycline 100 MG CAPSULE PO ×2 (08:15→21:24)
[2018-05-27] MEDS: Enoxaparin 80 MG/0.8 ML Syringe SC ×2 (08:16→21:24)
[2018-05-27 08:17] VITALS: O2SAT 95
[2018-05-27] MEDS: levoFLOXacin IV 500 MG/100 ML BAG 100 MG IV (09:59)
--- NOTE | 2018-05-27 13:21 | PCM.PN.SRG ---
Subjective: Postop #2 Patient is resting comfortably. Sleepy. Had some pain and spasm with the dressing change today. - Physical Exam General: Alert, Oriented x3 HEENT: EOMI Oral: Moist Mucosa Neck: Supple Abdomen: Soft, Non-Distended Skin: Incision - Stump incision is dry and intact. Stump is soft. Mild swelling present. No clinical evidence of hematoma. There is incisional tenderness. Skin graft dressing dry and intact. Neurological: Cranial nerves II-XII grossly intact Psych/Mental Status: Normal Affect, Appropriate Vital Signs Temp Pulse Resp BP Pulse Ox 98.5 F 87 16 100/58 L 95 05/27/18 08:15 05/27/18 08:15 05/27/18 08:15 05/27/18 08:15 05/27/18 08:17 Oxygen Flow Rate (L/min) 2 Oxygen Delivery Method Nasal Cannula Weight: 195 lb 0.017 oz Body Mass Index (BMI) 25.0 Intake and Output for Last 24 Hours 05/25/18 05/26/18 05/27/18 23:59 23:59 23:59 Intake Total 2300 / 2300 2808 / 2808 1552.5 / 1552.5 Output Total 690 / 690 1519 / 1519 1388 / 1388 Balance 1610 / 1610 1289 / 1289 164.5 / 164.5 Drainage 69 ml yesterday. Microbiology Past 72 Hours 05/25/18 16:24 Gram Stain - Final Tissue Ulcer - Open/Non-Healing Wound Wound Culture - Preliminary Staphylococcus aureus Laboratory Tests Past 24 Hrs 05/27/18 05/27/18 05:50 05:50 WBC 10.4 RBC 3.11 L Hgb 9.7 L Hct 30.2 L MCV 97.1 H MCH 31.2 MCHC 32.1 RDW 14.3 RDW Differential 48.1 H Plt Count 294 MPV 9.4 Sodium 136 Potassium 4.6 Chloride 101 Carbon Dioxide 26.0 Anion Gap 9 BUN 31 H Creatinine 1.70 H Estim Creat Clear Calc 59.10 Est GFR (MDRD) Af Amer 55 L Est GFR (MDRD) Non-Af 45 L BUN/Creatinine Ratio 18.2 Glucose 96 Calcium 8.9 Medical Necessity - Tobacco Use Smoking Status: Former smoker Assessment/Plan All Active Problems (Last Updated 04/09/18 @ 09:50 by Gustavo Baird MD) Thrush, oral (Acute) 1. Nonhealing ulcer left BKA stump. 2. Pain left BKA stump. 3. 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 4. 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 6. s/p surgical preparation left BKA stump with excisional debridement nonhealing infected ulcer and complex secondary wound closure revision reconstruction with re-advancement muscle flap and bipedicle anterior leg fasciocutaneous advancement flap and STSG from the left flank (60 cm2). 7. Early renal insufficiency, probable medication related. Patient is resting comfortably. Had some incisional pain and spasm with the dressing change today. Operative culture shows Staphylococcus aureus. Continue Doxycycline, Levaquin, and Flagyl. His Creatinine increased slightly from 1.46 to 1.70. The Vancomycin was stopped yesterday. Will consult Hospitalist Group to assist with medical management. He has been sleepy most of the morning. Will stop the Duragesic Patch. Will change the graft dressing tomorrow. If moisture is seen on the graft, may apply the VAC to help with controlling the moisture on the graft and it will also help with compression to allow better vascular ingrowth of the skin graft. Continue Lovenox. The Coumadin has been restarted. Will recheck INR prior to discharge.
[2018-05-27] MEDS: 0.9% Normal Saline 1,000 ML 150 ML IV (13:37)
[2018-05-27] MEDS: diazePAM 5 MG Tablet PO (13:44)
--- NOTE | 2018-05-27 13:59 | CON.PCM_ITS ---
Problem List (1) JUAN (acute kidney injury) Status: Acute Reason for Consult Date of Consultation: 05/27/18 Reason for Consultation: Consult requested by Dr. Massey for acute kidney injury History of Present Illness: The patient is a 52 year old M who underwent excisional debridement of nonhealing and infected ulcer of his left BKA stump. Since then his creatinine has gone from 1.32-1.7. Patient was on vancomycin for this which was discontinued today. We were asked to see the patient in regards to the main kidney function. Patient denies any abdominal pain, no nausea or vomiting. 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) Patient is on Coumadin for PE Chronic osteomyelitis of left tibia (Chronic) chronic osteomyelitis left tibia at BKA stump 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) Pain of amputation stump of left lower extremity (Chronic) Dermatitis (Chronic) CAD (coronary artery disease) (Chronic) Osteomyelitis of left lower extremity (Chronic) Pain of left anterior lower extremity (Chronic) Amputation, traumatic, leg (Chronic) HTN (hypertension) (Chronic) Hypertension (Chronic) Peripheral arterial disease (Chronic) SVT (supraventricular tachycardia) (Chronic) Hypercoagulable state (Chronic) Wound, surgical, nonhealing (Chronic) Ischemic ulcer of right foot (Chronic) Medical History: Medical History (Last Reviewed 05/27/18 @ 13:57 by Alton Kingsley DO) HTN (hypertension) (Chronic) I10 Anemia D64.9 Arthritis M19.90 Gallstones K80.20 Vascular disease I99.9 Allergies Penicillins Allergy (Verified 05/17/18 13:21) Swelling adhesive tape Adverse Reaction (Verified 05/17/18 13:21) Rash Home Medications: Ambulatory Orders Medication Instructions Recorded Gabapentin [Neurontin] 1,800 mg PO BID 03/05/18 Atorvastatin Calcium [Lipitor] 40 mg PO QHS 04/03/18 Carvedilol 12.5 mg PO DAILY 04/03/18 Lisinopril 20 mg PO DAILY 04/03/18 Warfarin [Coumadin] 3 mg PO DAILY 04/03/18 Cyclobenzaprine [Flexeril] 10 mg PO TID tablet 04/12/18 Doxycycline 100 mg PO BID #28 cap 04/12/18 Zolpidem Tartrate [Ambien] 5 mg PO QHS PRN PRN tablet 04/12/18 levoFLOXacin tablet [Levaquin 500 mg PO DAILY #14 tab 04/12/18 tablet] Oxycodone HCl/Acetaminophen 1 - 2 tab PO Q6H PRN 04/23/18 [Percocet 5-325] diazepam 5 mg tablet 5 mg PO 4X/DAY PRN #30 tab 04/30/18 enoxaparin 80 mg/0.8 mL 80 mg SC BID #10 syringe 05/11/18 subcutaneous syringe Surgical History: Surgical History (Last Reviewed 05/27/18 @ 13:57 by Alton Kingsley DO) Amputation, traumatic, leg (Chronic) S88.919A H/O right heart catheterization Z98.890 History of cholecystectomy Z90.49 1998 History of surgical removal of testicle Z98.890, Z90.79 Surgical History: cholecystectomy, - Psychiatric History: No pertinent psych hx Smoking Status: Former smoker - *Family History Maternal Family History: Family History (Last Reviewed 05/27/18 @ 13:57 by Alton Kingsley DO) Other CVA (cerebral vascular accident) Cancer Heart disease History Items: Cancer, Diabetes, Heart Disease, Renal Disease Paternal Family History: Family History (Last Reviewed 05/27/18 @ 13:57 by Alton Kingsley DO) Other CVA (cerebral vascular accident) Cancer Heart disease History Items: Cancer Review of Systems Constitutional: Reports: Weakness. Denies: Anorexia, Chills, Fever Eyes: Denies: Blurred vision, Double vision, Vision Change HEENT: Denies: Head Aches, Sinus Congestion, Sinus Drainage Cardiovascular: Denies: Chest Pain, Palpitations Respiratory: Denies: Cough, Shortness of breath at rest, Sputum production Gastrointestinal: Denies: Abdominal Pain, Constipation, Diarrhea, Dyspepsia, Nausea, Vomiting Genitourinary: Denies: Dysuria Musculoskeletal: Reports: - - Left stump pain status post dressing change Skin: Denies: Dryness, Jaundice Neurological: Denies: Numbness, Tingling, Focal weakness Psychiatric: Denies: Anxiety, Depression Hematologic/ Lymphatic: Denies: Easy Bruising, Easy Bleeding Comment: Does feel groggy. States that grogginess is worse with the pain medications. A 10 point review of systems were negative except as mentioned in the history of present illness and the other review of systems. Patient Problems: Active and Suspected Problems (Last Updated 04/09/18 @ 09:50 by Gustavo Baird MD) JUAN (acute kidney injury) (Acute) - Physical Exam General: Alert, Cooperative, - - Groggy. Afebrile. HEENT: Atraumatic, Normocephalic Oral: Moist Mucosa, No Gingival or Mucosal Lesions/ Ulcerations Neck: No Nodes, Thyroid Normal Size and Texture Lungs: Clear to auscultation, Normal air movement, No rhonchi, No wheeze Cardiovascular: Regular rate, Regular Rhythm, Normal S1, Normal S2, No murmurs Abdomen: Bowel Sounds Present, Soft, Non Tender, Non-Distended, No Hepato- splenomegaly Extremities: No edema, - - Left stump in an Fernando wrap, did not remove. Vital Signs Temp Pulse Resp BP Pulse Ox 36.9 C 87 16 100/58 L 95 05/27/18 08:15 05/27/18 08:15 05/27/18 08:15 05/27/18 08:15 05/27/18 08:17 Oxygen Flow Rate (L/min) 2 Oxygen Delivery Method Nasal Cannula Weight: 88.451 kg Body Mass Index (BMI) 25.0 Intake and Output for Last 24 Hours 05/25/18 05/26/18 05/27/18 23:59 23:59 23:59 Intake Total 2300 / 2300 2808 / 2808 1552.5 / 1552.5 Output Total 690 / 690 1519 / 1519 1388 / 1388 Balance 1610 / 1610 1289 / 1289 164.5 / 164.5 Microbiology Past 72 Hours 05/25/18 16:24 Gram Stain - Final Tissue Ulcer - Open/Non-Healing Wound Wound Culture - Preliminary Staphylococcus aureus Laboratory Tests Past 24 Hrs 05/27/18 05/27/18 05/27/18 05:50 05:50 13:40 WBC 10.4 RBC 3.11 L Hgb 9.7 L Hct 30.2 L MCV 97.1 H MCH 31.2 MCHC 32.1 RDW 14.3 RDW Differential 48.1 H Plt Count 294 MPV 9.4 Eos Smear Total Cells Pending Sodium 136 Potassium 4.6 Chloride 101 Carbon Dioxide 26.0 Anion Gap 9 BUN 31 H Creatinine 1.70 H Estim Creat Clear Calc 59.10 Est GFR (MDRD) Af Amer 55 L Est GFR (MDRD) Non-Af 45 L BUN/Creatinine Ratio 18.2 Glucose 96 Calcium 8.9 Assessment/Plan All Active Problems (Last Updated 04/09/18 @ 09:50 by Gustavo Baird MD) JUAN (acute kidney injury) (Acute) Thrush, oral (Acute) 1. JUAN On chronic kidney disease stage II-III Agree with discontinuing the vancomycin may be the most likely culprit Will check urine studies to further evaluate additionally, will hold the patient's lisinopril Patient will receive 1 L of IV fluids Reevaluate in the a.m., if shows improvement then could probably resume his lisinopril. If creatinine continues to get worse, consider renal ultrasound and/or nephrology consult. 2. Leg ulcer Status post debridement Positive for staph aureus, sensitivities pending Currently on doxycycline and metronidazole 3. Postoperative pain Patient is groggy at this time. I agree with discontinuation of the fentanyl Currently, the patient has ordered oxycodone, hydromorphone and gabapentin Explained to the patient and the family, in regards to pain control, the matter of pain control but also being functional. Advised cautious use of narcotics. 4. DVT prophylaxis with Lovenox Thank you for the consult. The hospitalist service will continue to follow along during the patient's hospitalization. This note was generated with [employer] by [employer] dictation software. It may contain incorrect words, spelling, and punctuation that were not noted in checking the note before signing. Code Visit Inpatient E&M: 88411 Init Hosp L2
[2018-05-27 14:00] VITALS: BP 123/65; PULSE 103; RESP 18; TEMP 36.7; O2SAT 99
[2018-05-27 17:36] LABS: Bacteria 0 SEEN /hpf (None Seen); Mucous, Urine 0 SEEN /hpf (<or=2+); Red Blood Cells-Urine 0 SEEN /hpf (0-5); Squamous Epithelial Cells - UA 0 SEEN /hpf (0-5); White Blood Cells 0 SEEN /hpf (0-5)
[2018-05-27 17:38] LABS: Color, Urine Yellow (Yellow); Glucose, Dipstick Normal (Normal); Ketone-Dipstick Negative (Negative); Leukocyte Esterase-Dipstick 25 /ul (Negative); Nitrite-Dipstick Negative (Negative); Occult Blood-Urine Negative /ul (Negative); Protein-Dipstick Negative (Negative); Urine Bilirubin Dipstick Negative (Negative); Urine Clarity Clear (Clear); Urine Urobilinogen Normal (Normal)
[2018-05-27 17:48] LABS: Urine Sodium 40 mmol/L (Not Establ.)
[2018-05-27] MEDS: NYSTATIN 500,000 UNIT/5 ML UDC 500000 UNIT PO ×2 (18:32→21:25)
[2018-05-27 20:00] VITALS: BP 103/70; PULSE 92; RESP 12; TEMP 36.6; O2SAT 99
[2018-05-27] MEDS: 0.9% NaCl Peripheral Flush Adult/Peds IV (20:00)
[2018-05-27] MEDS: Atorvastatin Calcium 40 MG Tablet PO (21:24)
[2018-05-28 02:00] VITALS: BP 100/58; PULSE 100; RESP 14; TEMP 37.1; O2SAT 97
[2018-05-28] MEDS: oxyCODONE 5 MG Tablet 10 MG PO ×2 (02:30→12:39)
[2018-05-28 03:41] VITALS: BP 120/101; PULSE 100; RESP 16; TEMP 36.8; O2SAT 95
[2018-05-28 05:58] LABS: Hematocrit 27.4 % (40-54); Hemoglobin 8.9 g/dl (13.0-16.5); International Normalized Ratio 1.2; Mean Corp Hgb Conc 32.5 g/gl (32-36); Mean Corpuscular Hgb 31.4 pg (27.0-32.0); Mean Corpuscular Volume 96.8 fL (80-94); Mean Platelet Vol. 9.4 fl (6.2-12.0); Platelet Count 291 K/mm3 (150-450); Prothrombin Time (Protime)PT. 15.3 SECONDS (11.7-14.9); RBC Distribution Width CV 13.9 % (11.6-14.6); RBC Distribution Width SD 46.8 fl (35.1-43.9); Red Blood Count 2.83 M/mm3 (4.6-6.2); White Blood Count 8.5 K/mm3 (4.4-11.0)
[2018-05-28 06:05] LABS: Scan Indicated on CBC? Y/N NO
[2018-05-28 06:08] LABS: Anion Gap 9 (5-15); BUN 29 mg/dL (7-18); Calcium,Total 8.9 mg/dL (8.5-10.1); Chloride 106 mmol/L (98-107); Creatinine, Serum 1.45 mg/dL (0.70-1.30); EST Glomerular Filtration Rate 54 mL/min (>60); Est Glom Filt Rate - Afr Amer 66 mL/min (>60); Estimated Creatinine Clearance 69.29 ml/min; Glucose 92 mg/dL (74-106); Potassium 4.2 mmol/L (3.5-5.1); Sodium Level 139 mmol/L (136-145)
[2018-05-28 07:51] VITALS: O2SAT 95
[2018-05-28 09:45] VITALS: BP 152/83; PULSE 108; RESP 16; TEMP 36.7; O2SAT 99
[2018-05-28] MEDS: Enoxaparin 80 MG/0.8 ML Syringe SC ×2 (09:48→21:37)
[2018-05-28] MEDS: Docusate Sodium 100 MG Capsule PO (09:48)
[2018-05-28] MEDS: Carvedilol 12.5 MG Tablet PO (09:48)
[2018-05-28] MEDS: Gabapentin 600 MG Tablet 1800 MG PO ×2 (09:49→21:37)
[2018-05-28] MEDS: NYSTATIN 500,000 UNIT/5 ML UDC 500000 UNIT PO ×4 (09:49→21:37)
[2018-05-28] MEDS: diazePAM 5 MG Tablet PO ×2 (10:01→18:14)
[2018-05-28] MEDS: HYDROmorphone 1 MG/ML Syringe IV (10:11)
[2018-05-28] MEDS: Mupirocin Ointment 22gm Tube 1 APPLIC TOPICAL ×2 (10:25→21:34)
--- NOTE | 2018-05-28 10:27 | CON.PCM_ITS ---
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 Patient was subsequently admitted and underwent debridement of the left BKA stump with a skin grafting performed. Operative specimen growing rare growth of MRSA. Patient is currently alert conversive no clinical distress. No gastrointestinal distress no cardiopulmonary symptoms he is otherwise clinically stable. His antimicrobial regimen during his hospitalization I reviewed patient did develop some renal insufficiency that prompted discontinue parenteral vancomycin. 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) Patient is on Coumadin for PE Chronic osteomyelitis of left tibia (Chronic) chronic osteomyelitis left tibia at BKA stump 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) Pain of amputation stump of left lower extremity (Chronic) Dermatitis (Chronic) CAD (coronary artery disease) (Chronic) Osteomyelitis of left lower extremity (Chronic) Pain of left anterior lower extremity (Chronic) Amputation, traumatic, leg (Chronic) HTN (hypertension) (Chronic) Hypertension (Chronic) Peripheral arterial disease (Chronic) SVT (supraventricular tachycardia) (Chronic) Hypercoagulable state (Chronic) Wound, surgical, nonhealing (Chronic) Ischemic ulcer of right foot (Chronic) Allergies/Adverse Reactions: Allergies Penicillins Allergy (Verified 05/17/18 13:21) Swelling adhesive tape Adverse Reaction (Verified 05/17/18 13:21) Rash Home Medications: Ambulatory Orders Medication Instructions Recorded Gabapentin [Neurontin] 1,800 mg PO BID 03/05/18 Atorvastatin Calcium [Lipitor] 40 mg PO QHS 04/03/18 Carvedilol 12.5 mg PO DAILY 04/03/18 Lisinopril 20 mg PO DAILY 04/03/18 Warfarin [Coumadin] 3 mg PO DAILY 04/03/18 Cyclobenzaprine [Flexeril] 10 mg PO TID tablet 04/12/18 Doxycycline 100 mg PO BID #28 cap 04/12/18 Zolpidem Tartrate [Ambien] 5 mg PO QHS PRN PRN tablet 04/12/18 levoFLOXacin tablet [Levaquin 500 mg PO DAILY #14 tab 04/12/18 tablet] Oxycodone HCl/Acetaminophen 1 - 2 tab PO Q6H PRN 04/23/18 [Percocet 5-325] diazepam 5 mg tablet 5 mg PO 4X/DAY PRN #30 tab 04/30/18 enoxaparin 80 mg/0.8 mL 80 mg SC BID #10 syringe 05/11/18 subcutaneous syringe - Social History SMOKING STATUS:: Current every day smoker Vital Signs Temp Pulse Resp BP Pulse Ox 98.3 F 100 16 120/101 H 95 05/28/18 03:41 05/28/18 03:41 05/28/18 03:41 05/28/18 03:41 05/28/18 07:51 Oxygen Flow Rate (L/min) 1 Oxygen Delivery Method Nasal Cannula Weight: 88.451 kg Body Mass Index (BMI) 25.0 Microbiology Past 72 Hours 05/25/18 16:24 Gram Stain - Final Tissue Ulcer - Open/Non-Healing Wound Wound Culture - Final Meth. resistant Staph. aureus Laboratory Tests Past 24 Hrs 05/27/18 05/27/18 05/27/18 13:40 13:40 13:40 WBC RBC Hgb Hct MCV MCH MCHC RDW RDW Differential Plt Count MPV Eos Smear Total Cells Pending PT INR Sodium Potassium Chloride Carbon Dioxide Anion Gap BUN Creatinine Estim Creat Clear Calc Est GFR (MDRD) Af Amer Est GFR (MDRD) Non-Af BUN/Creatinine Ratio Glucose Calcium Urine Color Yellow Urine Clarity Clear Urine pH 6.0 Ur Specific [place] 1.010 Urine Protein Negative Urine Glucose (UA) Normal Urine Ketones Negative Urine Occult Blood Negative Urine Nitrite Negative Urine Bilirubin Negative Urine Urobilinogen Normal Ur Leukocyte Esterase 25 H Urine RBC 0 SEEN Urine WBC 0 SEEN Ur Squamous Epith Cells 0 SEEN Urine Bacteria 0 SEEN Urine Mucus 0 SEEN Ur Random Sodium Urine Creatinine 57.00 05/27/18 05/28/18 05/28/18 13:40 05:25 05:25 WBC 8.5 RBC 2.83 L Hgb 8.9 L Hct 27.4 L MCV 96.8 H MCH 31.4 MCHC 32.5 RDW 13.9 RDW Differential 46.8 H Plt Count 291 MPV 9.4 Eos Smear Total Cells PT INR Sodium 139 Potassium 4.2 Chloride 106 Carbon Dioxide 24.0 Anion Gap 9 BUN 29 H Creatinine 1.45 H Estim Creat Clear Calc 69.29 Est GFR (MDRD) Af Amer 66 Est GFR (MDRD) Non-Af 54 L BUN/Creatinine Ratio 20.0 Glucose 92 Calcium 8.9 Urine Color Urine Clarity Urine pH Ur Specific [place] Urine Protein Urine Glucose (UA) Urine Ketones Urine Occult Blood Urine Nitrite Urine Bilirubin Urine Urobilinogen Ur Leukocyte Esterase Urine RBC Urine WBC Ur Squamous Epith Cells Urine Bacteria Urine Mucus Ur Random Sodium 40 Urine Creatinine 05/28/18 05:25 WBC RBC Hgb Hct MCV MCH MCHC RDW RDW Differential Plt Count MPV Eos Smear Total Cells PT 15.3 H INR 1.2 Sodium Potassium Chloride Carbon Dioxide Anion Gap BUN Creatinine Estim Creat Clear Calc Est GFR (MDRD) Af Amer Est GFR (MDRD) Non-Af BUN/Creatinine Ratio Glucose Calcium Urine Color Urine Clarity Urine pH Ur Specific [place] Urine Protein Urine Glucose (UA) Urine Ketones Urine Occult Blood Urine Nitrite Urine Bilirubin Urine Urobilinogen Ur Leukocyte Esterase Urine RBC Urine WBC Ur Squamous Epith Cells Urine Bacteria Urine Mucus Ur Random Sodium Urine Creatinine - Other Studies Radiology: [] Other Studies: [] Route of nutrition/ use of supplements: [] Nutritional Intake: [] IV Site: [] Grace Catheter: [] Patient is alert conversive in no acute distress lungs are clear heart exam S1- S2 abdomen soft nontender left BKA stump examined with Dr. Massey. The wound itself looks clean the stump looks clean. - Assessment/Plan Antibiotics: [] Assessment/Plan: [] Active and Suspected Problems (Last Reviewed 05/27/18 @ 13:57 by Alton Kingsley DO) JUAN (acute kidney injury) (Acute) Left BKA stump wound debridement with MRSA isolated from the operative culture. Aggressive debridement was performed with removal of any infected/necrotic tissue. At this point be reasonable to treat with oral Bactrim 1 double strength tablet twice a day and follow his postoperative course. I did discuss this with Dr. Massey at the bedside.
--- NOTE | 2018-05-28 11:31 | PN_ITS ---
Patient Problems: Active and Suspected Problems (Last Reviewed 05/27/18 @ 13:57 by Alton Kingsley DO) JUAN (acute kidney injury) (Acute) Subjective: The patient is a 52-year-old male past medical history of VTE, peripheral vascular disease, chronic renal failure stage II, history of left BKA, osteomyelitis in the tibia of the left BKA stump, former tobacco dependence and chronic anticoagulation who was brought into the hospital on 05/17/2018 for further debridement of a wound on the left stump. He previously underwent incision and drainage with excisional debridement of a nonhealing infected ulcer and partial ostectomy of the tibia on 04/05/2018. Hospitalist service was consulted on 05/27/2018 for acute kidney injury. Crea tinine increased from 1.32 at admission to 1.7. He had been on vancomycin and that was discontinued on 05/27/2018. Lisinopril was also held on 05/27/2018 due to acute kidney injury. He was given 1 L of IV fluids and repeat lab was ordered. Febrile since admission, HR has been increasing in the past 24 hours and is now in the low 100's. Pulse ox is 99% on room air today. All lab was personally reviewed. Hemoglobin is 8.9 today, down from 12.2 at admission. INR is 1.2 and the patient is on warfarin. I presume the warfarin was held for the surgery. He has a hx of DVT and PE. Started on Bactrim DS by Dr. Avery today. Creatinine today is 1.45, down from 1.7 on 05/27/2018. Fractional excretion of sodium is 0.88 which is consistent with prerenal azotemia. Urine output on 05/27/2018 was 2150 and the input was 2581. Microbiology: Wound culture is growing MRSA. Had 2 bowel movement yesterday that he thinks were a little loose but no liquidy stools. Objective: PHYSICAL EXAM: GENERAL: alert, oriented X 3, Cooperative, NAD ORAL: moist mucosa, no mucosal lesions NECK: No JVD, supple, trachea midline LUNGS: CTA, symmetric chest expansion HEART: RRR, Normal S1 and S2, no rub, no gallop ABDOMEN: soft, NT, ND, BS present, no guarding with palpation EXTREMITIES: no edema, no cyanosis, no calf tenderness...he has a Left BKA - because of clots per the patient...I did not examine the wound....please see Dr. Massey's dictation SKIN: No rashes, no breakdown NEUROLOGIC: no focal neurologic deficits PSYCH: appropriate, normal affect, pleasant - Physical Exam Vital Signs Temp Pulse Resp BP Pulse Ox 98.1 F 108 H 16 152/83 H 99 05/28/18 09:45 05/28/18 09:45 05/28/18 09:45 05/28/18 09:45 05/28/18 09:45 Oxygen Flow Rate (L/min) 1 Oxygen Delivery Method Room Air Weight: 195 lb 0.017 oz Body Mass Index (BMI) 25.0 Intake and Output for Last 24 Hours 05/26/18 05/27/18 05/28/18 23:59 23:59 23:59 Intake Total 2808 / 2808 2581.5 / 2581.5 1097 / 1097 Output Total 1519 / 1519 2163 / 2163 1205 / 1205 Balance 1289 / 1289 418.5 / 418.5 -108 / -108 Microbiology Past 72 Hours 05/25/18 16:24 Gram Stain - Final Tissue Ulcer - Open/Non-Healing Wound Wound Culture - Final Meth. resistant Staph. aureus Laboratory Tests Past 24 Hrs 05/27/18 05/27/18 05/27/18 13:40 13:40 13:40 WBC RBC Hgb Hct MCV MCH MCHC RDW RDW Differential Plt Count MPV Eos Smear Total Cells Pending PT INR Sodium Potassium Chloride Carbon Dioxide Anion Gap BUN Creatinine Estim Creat Clear Calc Est GFR (MDRD) Af Amer Est GFR (MDRD) Non-Af BUN/Creatinine Ratio Glucose Calcium Urine Color Yellow Urine Clarity Clear Urine pH 6.0 Ur Specific [place] 1.010 Urine Protein Negative Urine Glucose (UA) Normal Urine Ketones Negative Urine Occult Blood Negative Urine Nitrite Negative Urine Bilirubin Negative Urine Urobilinogen Normal Ur Leukocyte Esterase 25 H Urine RBC 0 SEEN Urine WBC 0 SEEN Ur Squamous Epith Cells 0 SEEN Urine Bacteria 0 SEEN Urine Mucus 0 SEEN Ur Random Sodium Urine Creatinine 57.00 05/27/18 05/28/18 05/28/18 13:40 05:25 05:25 WBC 8.5 RBC 2.83 L Hgb 8.9 L Hct 27.4 L MCV 96.8 H MCH 31.4 MCHC 32.5 RDW 13.9 RDW Differential 46.8 H Plt Count 291 MPV 9.4 Eos Smear Total Cells PT INR Sodium 139 Potassium 4.2 Chloride 106 Carbon Dioxide 24.0 Anion Gap 9 BUN 29 H Creatinine 1.45 H Estim Creat Clear Calc 69.29 Est GFR (MDRD) Af Amer 66 Est GFR (MDRD) Non-Af 54 L BUN/Creatinine Ratio 20.0 Glucose 92 Calcium 8.9 Urine Color Urine Clarity Urine pH Ur Specific [place] Urine Protein Urine Glucose (UA) Urine Ketones Urine Occult Blood Urine Nitrite Urine Bilirubin Urine Urobilinogen Ur Leukocyte Esterase Urine RBC Urine WBC Ur Squamous Epith Cells Urine Bacteria Urine Mucus Ur Random Sodium 40 Urine Creatinine 05/28/18 05:25 WBC RBC Hgb Hct MCV MCH MCHC RDW RDW Differential Plt Count MPV Eos Smear Total Cells PT 15.3 H INR 1.2 Sodium Potassium Chloride Carbon Dioxide Anion Gap BUN Creatinine Estim Creat Clear Calc Est GFR (MDRD) Af Amer Est GFR (MDRD) Non-Af BUN/Creatinine Ratio Glucose Calcium Urine Color Urine Clarity Urine pH Ur Specific [place] Urine Protein Urine Glucose (UA) Urine Ketones Urine Occult Blood Urine Nitrite Urine Bilirubin Urine Urobilinogen Ur Leukocyte Esterase Urine RBC Urine WBC Ur Squamous Epith Cells Urine Bacteria Urine Mucus Ur Random Sodium Urine Creatinine Medical Necessity - Tobacco Use Smoking Status: Former smoker Assessment/Plan All Active Problems (Last Reviewed 05/27/18 @ 13:57 by Alton Kingsley DO) JUAN (acute kidney injury) (Acute) Thrush, oral (Acute) Impressions 1. Acute kidney injury-fractional excretion of sodium is consistent with prerenal azotemia and the creatinine is improving with hydration 2. Cellulitis of the left stump secondary to MRSA-devitalized tissue debrided by Dr. Massey 3. Status post left BKA-secondary to blood clots per the patient 4. Hypertension history 5. Dyslipidemia 6. History of DVT and pulmonary embolism -hypercoagulable state-will need lifelong anticoagulation 7. Coronary artery disease 8. Recent osteomyelitis of the left lower extremity 9. Peripheral vascular disease per the H&P 10. Former smoker Check to see if Eliquis is covered by his insurance. For now will continue Coumadin and Lovenox 80 mg twice daily until the INR is therapeutic and then will discontinue Lovenox. Recheck CBC in the a.m. and recheck BMP Monitor PT/INR closely while on Bactrim Continue Palmer Code Visit Inpatient E&M: 17704 Subs Hosp L2
[2018-05-28 14:10] VITALS: BP 123/69; PULSE 107; RESP 16; TEMP 36.8; O2SAT 97
[2018-05-28] MEDS: Smz/Tmp Ds Tablet 1 TABLET PO ×2 (14:11→21:37)
--- NOTE | 2018-05-28 14:25 | CASEMGMT ---
RN CM NOTE: Per Dr Massey, pt will only need weekly Wound Vac dressing changes and will have done @ the [facility] with next dsg change being due next Monday06-04-18. Dr Massey states if pt has issues with Wound Vac prior to next appt, then Wound Vac dsg can be removed and pt/ can apply dry dressings until next apt @ Wound Center. Spoke with pt's , Roxana, and she states is comfortable with this and that they have an RN in the family that can assist if needed. Call placed to [facility] and spoke with JENNY Pak. Pt is [place] [facility]. Mellisa notified that plan is for pt to return home on oral antibiotics and will follow-up @ [facility]ound Center for weekly wound vac dressing changes. Pt will not need to continue with [facility] services on discharge. Per Dr Robledo, pt will go home on Eliquis. Call placed to [facility] pharmacy. Eliquis 30-day prescription savings card has been applied. Per Roxana, pt is switching prescription coverage in 2019 and they do not have new prescription card yet. Unable to determine [id number] cost for refills. Instructed to follow up with PCP for further refills if out-of pocket cost of Eliquis is too high to discuss other options. Roxana voiced understanding. Gina CASTRON RN CM
--- NOTE | 2018-05-28 15:38 | PN.SURG_ITS ---
Patient Problems: Active and Suspected Problems (Last Reviewed 05/27/18 @ 13:57 by Alton Kingsley DO) JUAN (acute kidney injury) (Acute) Subjective: Postop #3 Patient is resting comfortably. Had pain and spasm with the dressing change. - Physical Exam General: Alert, Oriented x3 HEENT: PERRLA, EOMI Oral: Moist Mucosa Neck: Supple Abdomen: Soft, Non-Distended Skin: Incision - stump incision is dry and intact. Stump is soft. Mild swelling present. No clinical evidence of hematoma. There is incisional tenderness., - - Skin graft dressing was removed. The skin graft shows good adherence and 90% take. There is some early vascular ingrowth. The VAC was applied to the graft. Neurological: Cranial nerves II-XII grossly intact Psych/Mental Status: Normal Affect, Appropriate Vital Signs Temp Pulse Resp BP Pulse Ox 98.3 F 107 H 16 123/69 H 97 05/28/18 14:10 05/28/18 14:10 05/28/18 14:10 05/28/18 14:10 05/28/18 14:10 Oxygen Flow Rate (L/min) 1 Oxygen Delivery Method Room Air Weight: 195 lb 0.017 oz Body Mass Index (BMI) 25.0 Intake and Output for Last 24 Hours 05/26/18 05/27/18 05/28/18 23:59 23:59 23:59 Intake Total 2808 / 2808 2581.5 / 2581.5 1897 / 1897 Output Total 1519 / 1519 2163 / 2163 2285 / 2285 Balance 1289 / 1289 418.5 / 418.5 -388 / -388 Drainage 13 ml yesterday. Microbiology Past 72 Hours 05/25/18 16:24 Gram Stain - Final Tissue Ulcer - Open/Non-Healing Wound Wound Culture - Final Meth. resistant Staph. aureus Anaerobic Culture - Final No anaerobic bacteria isolated. Laboratory Tests Past 24 Hrs 05/27/18 05/27/18 05/27/18 13:40 13:40 13:40 WBC RBC Hgb Hct MCV MCH MCHC RDW RDW Differential Plt Count MPV PT INR Sodium Potassium Chloride Carbon Dioxide Anion Gap BUN Creatinine Estim Creat Clear Calc Est GFR (MDRD) Af Amer Est GFR (MDRD) Non-Af BUN/Creatinine Ratio Glucose Calcium Urine Color Yellow Urine Clarity Clear Urine pH 6.0 Ur Specific [place] 1.010 Urine Protein Negative Urine Glucose (UA) Normal Urine Ketones Negative Urine Occult Blood Negative Urine Nitrite Negative Urine Bilirubin Negative Urine Urobilinogen Normal Ur Leukocyte Esterase 25 H Urine RBC 0 SEEN Urine WBC 0 SEEN Ur Squamous Epith Cells 0 SEEN Urine Bacteria 0 SEEN Urine Mucus 0 SEEN Ur Random Sodium 40 Urine Creatinine 57.00 05/28/18 05/28/18 05/28/18 05:25 05:25 05:25 WBC 8.5 RBC 2.83 L Hgb 8.9 L Hct 27.4 L MCV 96.8 H MCH 31.4 MCHC 32.5 RDW 13.9 RDW Differential 46.8 H Plt Count 291 MPV 9.4 PT 15.3 H INR 1.2 Sodium 139 Potassium 4.2 Chloride 106 Carbon Dioxide 24.0 Anion Gap 9 BUN 29 H Creatinine 1.45 H Estim Creat Clear Calc 69.29 Est GFR (MDRD) Af Amer 66 Est GFR (MDRD) Non-Af 54 L BUN/Creatinine Ratio 20.0 Glucose 92 Calcium 8.9 Urine Color Urine Clarity Urine pH Ur Specific [place] Urine Protein Urine Glucose (UA) Urine Ketones Urine Occult Blood Urine Nitrite Urine Bilirubin Urine Urobilinogen Ur Leukocyte Esterase Urine RBC Urine WBC Ur Squamous Epith Cells Urine Bacteria Urine Mucus Ur Random Sodium Urine Creatinine Medical Necessity - Tobacco Use Smoking Status: Former smoker Assessment/Plan All Active Problems (Last Reviewed 05/27/18 @ 13:57 by Alton Kingsley DO) JUAN (acute kidney injury) (Acute) Thrush, oral (Acute) 1. Nonhealing ulcer left BKA stump. 2. Pain left BKA stump. 3. 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 4. 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 6. s/p surgical preparation left BKA stump with excisional debridement nonhealing infected ulcer and complex secondary wound closure revision reconstruction with re-advancement muscle flap and bipedicle anterior leg fasciocutaneous advancement flap and STSG from the left flank (60 cm2). 7. Early renal insufficiency, probable medication related, resolving. 8. MRSA. 9. Anemia of chronic disease, acute on chronic. Patient is resting comfortably. Had some incisional pain and spasm with the dressing change today. Skin graft dressing was changed today. The skin graft shows good adherence and 90% take. There is some early vascular ingrowth. Small amount of moisture on the graft. The VAC was placed on the graft for compression. Will remove on Monday at the [facility] Center. Operative culture shows MRSA. It is resistant to Doxycycline and Levaquin. He was taken off the Vancomycin because of increasing Creatinine. The Creatinine today has improved from 1.70 to 1.45. Am hesitant to restart the Vancomycin because of this. Will obtain Infectious Diseases consultation to assist with antibiotic management. If he needs IV antibiotics, will place a PICC line. Continue Lovenox. The Coumadin has been restarted. INR is 1.2 today. Hgb was 8.9 today, a slight decrease from 9.7. He has anemia of chronic disease, acute on chronic. He had minimal blood loss at surgery and not much coming out of his drain. The incision area shows no clinical evidence of hematoma. This decrease is mostly due to IV dilution from the surgery. His I's/O's are positive about 3 liters. Will start him on Iron supplements. Will recheck tomorrow.
[2018-05-28 20:02] VITALS: BP 110/60; PULSE 98; RESP 16; TEMP 36.8; O2SAT 95
[2018-05-28] MEDS: Atorvastatin Calcium 40 MG Tablet PO (21:42)
[2018-05-29] MEDS: oxyCODONE 5 MG Tablet 10 MG PO (02:18)
[2018-05-29 02:21] VITALS: BP 117/61; PULSE 97; RESP 16; TEMP 36.7; O2SAT 94
[2018-05-29 07:46] LABS: Hematocrit 28.2 % (40-54); Hemoglobin 9.1 g/dl (13.0-16.5); Mean Corp Hgb Conc 32.3 g/gl (32-36); Mean Corpuscular Hgb 30.7 pg (27.0-32.0); Mean Corpuscular Volume 95.3 fL (80-94); Mean Platelet Vol. 9.8 fl (6.2-12.0); Platelet Count 307 K/mm3 (150-450); RBC Distribution Width CV 13.7 % (11.6-14.6); RBC Distribution Width SD 45.3 fl (35.1-43.9); Red Blood Count 2.96 M/mm3 (4.6-6.2)
[2018-05-29 07:47] LABS: Scan Indicated on CBC? Y/N NO
[2018-05-29 07:49] LABS: International Normalized Ratio 1.2; Prothrombin Time (Protime)PT. 15.6 SECONDS (11.7-14.9)
[2018-05-29 07:56] LABS: Anion Gap 12 (5-15); BUN 25 mg/dL (7-18); BUN/Creat Ratio 17.5 RATIO (10-20); Calcium,Total 8.8 mg/dL (8.5-10.1); Chloride 104 mmol/L (98-107); Creatinine, Serum 1.43 mg/dL (0.70-1.30); EST Glomerular Filtration Rate 55 mL/min (>60); Est Glom Filt Rate - Afr Amer 67 mL/min (>60); Estimated Creatinine Clearance 70.26 ml/min; Glucose 95 mg/dL (74-106); Potassium 3.8 mmol/L (3.5-5.1); Sodium Level 139 mmol/L (136-145)
--- NOTE | 2018-05-29 08:40 | PN_ITS ---
Subjective: All events of the past 24 hours of been reviewed Bactrim day #2 Day #4 antibiotics Afebrile since admission Vital signs are stable Fluid balance on 05/28/2018 is -1740, urine output was 4225. Echo biology: Anaerobic culture had no growth, fungal culture and AFB are pending All lab was personally reviewed. White blood cell count is 9.0, hemoglobin is 9.1 and platelets are within normal limits. INR is 1.2 today. Creatinine is stable at 1.43 with a BUN of 25. Eyes lightheadedness, shortness of breath, chest pain. States he is eating be tter. Myoclonic jerks, no confusion. Objective: GENERAL: alert, oriented X 3, Cooperative, NAD ORAL: moist mucosa, no mucosal lesions NECK: No JVD, supple, trachea midline LUNGS: CTA, symmetric chest expansion HEART: RRR, Normal S1 and S2, no rub, no gallop ABDOMEN: soft, NT, ND, BS present, no guarding with palpation EXTREMITIES: no edema, no cyanosis, no calf tenderness...he has a Left BKA - because of clots per the patient...I did not examine the wound....please see Dr. Massey's dictation SKIN: No rashes, no breakdown NEUROLOGIC: no focal neurologic deficits PSYCH: appropriate, normal affect, pleasant - Physical Exam Vital Signs Temp Pulse Resp BP Pulse Ox 98.1 F 97 16 117/61 94 05/29/18 02:21 05/29/18 02:21 05/29/18 02:21 05/29/18 02:21 05/29/18 02:21 Oxygen Flow Rate (L/min) 1 Oxygen Delivery Method Room Air Weight: 195 lb 0.017 oz Body Mass Index (BMI) 25.0 Intake and Output for Last 24 Hours 05/27/18 05/28/18 05/29/18 23:59 23:59 23:59 Intake Total 2581.5 / 2581.5 2497 / 2497 300 / 300 Output Total 2163 / 2163 4237 / 4237 Balance 418.5 / 418.5 -1740 / -1740 300 / 300 Microbiology Past 72 Hours 05/25/18 16:24 Gram Stain - Final Tissue Ulcer - Open/Non-Healing Wound Wound Culture - Final Meth. resistant Staph. aureus Anaerobic Culture - Final No anaerobic bacteria isolated. Laboratory Tests Past 24 Hrs 05/29/18 05/29/18 05/29/18 07:00 07:00 07:00 WBC 9.0 RBC 2.96 L Hgb 9.1 L Hct 28.2 L MCV 95.3 H MCH 30.7 MCHC 32.3 RDW 13.7 RDW Differential 45.3 H Plt Count 307 MPV 9.8 PT 15.6 H INR 1.2 Sodium 139 Potassium 3.8 Chloride 104 Carbon Dioxide 23.0 Anion Gap 12 BUN 25 H Creatinine 1.43 H Estim Creat Clear Calc 70.26 Est GFR (MDRD) Af Amer 67 Est GFR (MDRD) Non-Af 55 L BUN/Creatinine Ratio 17.5 Glucose 95 Calcium 8.8 Medical Necessity - Tobacco Use Smoking Status: Former smoker Assessment/Plan All Active Problems (Last Reviewed 05/27/18 @ 13:57 by Alton Kingsley DO) JUAN (acute kidney injury) (Acute) Thrush, oral (Acute) Impressions 1. Acute kidney injury-fractional excretion of sodium is consistent with prerenal azotemia and the creatinine is improving with hydration 2. Cellulitis of the left stump secondary to MRSA-devitalized tissue debrided by Dr. Massey 3. Status post left BKA-secondary to blood clots per the patient 4. Hypertension history 5. Dyslipidemia 6. History of DVT and pulmonary embolism -hypercoagulable state-will need lifelong anticoagulation 7. Coronary artery disease 8. Recent osteomyelitis of the left lower extremity 9. Peripheral vascular disease per the H&P 10. Former smoker Continue anticoagulation Continue Bactrim DS-concern for combined use of warfarin and Bactrim DS. He has Eliquis and Xarelto at home we will likely discharge on 1 of the novel 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s. Recheck lab in the a.m. Reminded to keep his fluid intake up Code Visit Inpatient E&M: 92961 Subs Hosp L2
[2018-05-29] MEDS: Carvedilol 12.5 MG Tablet PO (10:13)
[2018-05-29] MEDS: Gabapentin 600 MG Tablet 1800 MG PO ×2 (10:13→21:39)
[2018-05-29] MEDS: Smz/Tmp Ds Tablet 1 TABLET PO ×2 (10:13→18:08)
[2018-05-29] MEDS: NYSTATIN 500,000 UNIT/5 ML UDC 500000 UNIT PO ×4 (10:14→21:50)
[2018-05-29] MEDS: Enoxaparin 80 MG/0.8 ML Syringe SC ×2 (10:14→21:40)
[2018-05-29] MEDS: Mupirocin Ointment 22gm Tube 1 APPLIC TOPICAL ×2 (10:14→21:36)
[2018-05-29 10:18] VITALS: BP 107/68; PULSE 88; RESP 16; TEMP 36.6; O2SAT 98
[2018-05-29] MEDS: Iron Polysaccharide Complex 150 MG CAPSULE PO (13:52)
[2018-05-29 14:09] LABS: Eosinophil Ct. Urine No Eosinophils Seen % (.)
[2018-05-29 14:30] VITALS: BP 110/71; PULSE 92; RESP 16; TEMP 36.7; O2SAT 98
--- NOTE | 2018-05-29 14:39 | PN.SURG_ITS ---
Patient Problems: Active and Suspected Problems (Last Reviewed 05/27/18 @ 13:57 by Alton Kingsley DO) JUAN (acute kidney injury) (Acute) Subjective: Postop #4 Patient feels a little cool. No shakes or chills. - Physical Exam General: Alert, Oriented x3 HEENT: PERRLA, EOMI Oral: Moist Mucosa Neck: Supple Abdomen: Soft, Non-Distended Skin: Incision - stump incision dry and intact., - - VAC in place over the skin graft. Neurological: Cranial nerves II-XII grossly intact Psych/Mental Status: Normal Affect, Appropriate Vital Signs Temp Pulse Resp BP Pulse Ox 97.9 F 88 16 107/68 98 05/29/18 10:18 05/29/18 10:18 05/29/18 10:05/29/18 10:05/29/18 10:18 Oxygen Flow Rate (L/min) 1 Oxygen Delivery Method Room Air Weight: 195 lb 0.017 oz Body Mass Index (BMI) 25.0 Intake and Output for Last 24 Hours 05/27/18 05/28/18 05/29/18 23:59 23:59 23:59 Intake Total 2581.5 / 2581.5 2497 / 2497 300 / 300 Output Total 2163 / 2163 4237 / 4237 Balance 418.5 / 418.5 -1740 / -1740 300 / 300 Drainage 12 ml yesterday. Microbiology Past 72 Hours 05/25/18 16:24 Gram Stain - Final Tissue Ulcer - Open/Non-Healing Wound Wound Culture - Final Meth. resistant Staph. aureus Anaerobic Culture - Final No anaerobic bacteria isolated. Laboratory Tests Past 24 Hrs 05/27/18 05/29/18 05/29/18 13:40 07:00 07:00 WBC 9.0 RBC 2.96 L Hgb 9.1 L Hct 28.2 L MCV 95.3 H MCH 30.7 MCHC 32.3 RDW 13.7 RDW Differential 45.3 H Plt Count 307 MPV 9.8 Eos Smear Total Cells No Eosinophils Seen PT 15.6 H INR 1.2 Sodium Potassium Chloride Carbon Dioxide Anion Gap BUN Creatinine Estim Creat Clear Calc Est GFR (MDRD) Af Amer Est GFR (MDRD) Non-Af BUN/Creatinine Ratio Glucose Calcium 05/29/18 07:00 WBC RBC Hgb Hct MCV MCH MCHC RDW RDW Differential Plt Count MPV Eos Smear Total Cells PT INR Sodium 139 Potassium 3.8 Chloride 104 Carbon Dioxide 23.0 Anion Gap 12 BUN 25 H Creatinine 1.43 H Estim Creat Clear Calc 70.26 Est GFR (MDRD) Af Amer 67 Est GFR (MDRD) Non-Af 55 L BUN/Creatinine Ratio 17.5 Glucose 95 Calcium 8.8 Medical Necessity - Tobacco Use Smoking Status: Former smoker Assessment/Plan All Active Problems (Last Reviewed 05/27/18 @ 13:57 by Alton Kingsley DO) JUAN (acute kidney injury) (Acute) Thrush, oral (Acute) 1. Nonhealing ulcer left BKA stump. 2. Pain left BKA stump. 3. 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 4. 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 5. custodial use of anticoagulation. 6. s/p surgical preparation left BKA stump with excisional debridement nonhealing infected ulcer and complex secondary wound closure revision reconstruction with re-advancement muscle flap and bipedicle anterior leg fasciocutaneous advancement flap and STSG from the left flank (60 cm2). 7. Early renal insufficiency, probable medication related, resolving. 8. MRSA. 9. Anemia of chronic disease, acute on chronic, stable. Patient is resting comfortably. Feels a little cool. No shakes or chills. Afebrile. VAC in place over skin graft. Incision dry and intact. Operative culture shows MRSA. Continue Bactrim DS. The Doxycycline, Levaquin, and Flagyl have been stopped. Infectious Diseases input appreciated. I want to see how he does on po antibiotics for a couple of days before discharging him on po antibiotics. If issues develop in the stump, then would need to start IV antibiotics at that time with the placement of a PICC line. If no issues are seen, then anticipate discharge tomorrow. His Creatinine continues to improve slowly from 1.45 to 1.43. Continue Lovenox. The Coumadin has been restarted. INR is 1.2 today. He will check with his insurance company. He may want to get on Xarelto or Eliquis. With the Coumadin, there is concern of interaction with the Bactrim that may increase risk of bleeding. Hgb was improved to 9.1 from 8.9. He has anemia of chronic disease, acute on chronic. He had minimal blood loss at surgery and not much coming out of his drain. The incision area shows no clinical evidence of hematoma. This decrease is mostly due to IV dilution from the surgery. His I's/O's are still positive but only for a liter with the increased diuresis. Continue Iron supplements. Prealbumin 17.5. Encourage nutritional supplementation with protein to help the healing process. After discharge, [facility]up [facility] on Monday[facility]/04/18.
[2018-05-29 20:30] VITALS: BP 116/68; PULSE 89; RESP 16; TEMP 36.1; O2SAT 98
[2018-05-29] MEDS: Atorvastatin Calcium 40 MG Tablet PO (21:39)
[2018-05-30] MEDS: oxyCODONE 5 MG Tablet 10 MG PO ×3 (02:21→11:27)
[2018-05-30 02:23] VITALS: BP 126/71; PULSE 89; RESP 16; TEMP 36.6; O2SAT 98
[2018-05-30 05:48] LABS: International Normalized Ratio 1.4; Prothrombin Time (Protime)PT. 17.1 SECONDS (11.7-14.9)
[2018-05-30 05:49] LABS: Hematocrit 28.9 % (40-54); Hemoglobin 9.5 g/dl (13.0-16.5); Mean Corp Hgb Conc 32.9 g/gl (32-36); Mean Corpuscular Hgb 31.1 pg (27.0-32.0); Mean Corpuscular Volume 94.8 fL (80-94); Mean Platelet Vol. 9.5 fl (6.2-12.0); Platelet Count 345 K/mm3 (150-450); RBC Distribution Width CV 13.7 % (11.6-14.6); RBC Distribution Width SD 45.5 fl (35.1-43.9); Red Blood Count 3.05 M/mm3 (4.6-6.2)
[2018-05-30 05:50] LABS: Scan Indicated on CBC? Y/N NO
[2018-05-30 06:05] LABS: Anion Gap 10 (5-15); BUN 28 mg/dL (7-18); BUN/Creat Ratio 18.8 RATIO (10-20); Calcium,Total 9.3 mg/dL (8.5-10.1); Chloride 106 mmol/L (98-107); Creatinine, Serum 1.49 mg/dL (0.70-1.30); EST Glomerular Filtration Rate 53 mL/min (>60); Est Glom Filt Rate - Afr Amer 64 mL/min (>60); Estimated Creatinine Clearance 67.43 ml/min; Glucose 91 mg/dL (74-106); Potassium 4.2 mmol/L (3.5-5.1); Sodium Level 140 mmol/L (136-145)
[2018-05-30 08:50] VITALS: BP 114/63; PULSE 83; RESP 18; TEMP 36.5; O2SAT 96
[2018-05-30] MEDS: NYSTATIN 500,000 UNIT/5 ML UDC 500000 UNIT PO ×2 (08:51→13:14)
[2018-05-30] MEDS: Enoxaparin 80 MG/0.8 ML Syringe SC (08:51)
[2018-05-30] MEDS: Iron Polysaccharide Complex 150 MG CAPSULE PO (08:52)
[2018-05-30] MEDS: Mupirocin Ointment 22gm Tube 1 APPLIC TOPICAL (08:52)
[2018-05-30] MEDS: Smz/Tmp Ds Tablet 1 TABLET PO (08:52)
[2018-05-30] MEDS: Gabapentin 600 MG Tablet 1800 MG PO (08:52)
[2018-05-30] MEDS: Carvedilol 12.5 MG Tablet PO (08:52)
--- NOTE | 2018-05-30 09:30 | NURSING ---
Wound VAC dressing intact to the left stump. wound VAC is over the skin graft and is ordered to be changed weekly with the next dressing change [facility] for [facility]. pt is very groggy at this time. denies needs. will monitor as needed.
--- NOTE | 2018-05-30 09:30 | PCM.PN.ID ---
Patient Problems: Active and Suspected Problems (Last Reviewed 05/27/18 @ 13:57 by Alton Kingsley DO) JUAN (acute kidney injury) (Acute) Subjective: Patient had a uneventful night. Tolerating oral Bactrim well. No gastrointestinal distress. No fevers. Wound VAC in place in his left BKA stump area. I did briefly talk to the wound care nurse this morning Objective: Alert and oriented x3 does not appear toxic abdomen soft nontender left BKA stump wound VAC is in place - Physical Exam Vital Signs Temp Pulse Resp BP Pulse Ox 97.7 F L 83 18 114/63 96 05/30/18 08:50 05/30/18 08:50 05/30/18 08:50 05/30/18 08:50 05/30/18 08:50 Oxygen Flow Rate (L/min) 1 Oxygen Delivery Method Room Air Weight: 88.451 kg Body Mass Index (BMI) 25.0 Intake and Output for Last 24 Hours 05/28/18 05/29/18 05/30/18 23:59 23:59 23:59 Intake Total 2497 / 2497 1625 / 1625 1000 / 1000 Output Total 4237 / 4237 1400 / 1400 860 / 860 Balance -1740 / -1740 225 / 225 140 / 140 Microbiology Past 72 Hours 05/25/18 16:24 Gram Stain - Final Tissue Ulcer - Open/Non-Healing Wound Wound Culture - Final Meth. resistant Staph. aureus Anaerobic Culture - Final No anaerobic bacteria isolated. Laboratory Tests Past 24 Hrs 05/27/18 05/30/18 05/30/18 13:40 05:25 05:25 WBC 9.0 RBC 3.05 L Hgb 9.5 L Hct 28.9 L MCV 94.8 H MCH 31.1 MCHC 32.9 RDW 13.7 RDW Differential 45.5 H Plt Count 345 MPV 9.5 Eos Smear Total Cells No Eosinophils Seen PT 17.1 H INR 1.4 Sodium Potassium Chloride Carbon Dioxide Anion Gap BUN Creatinine Estim Creat Clear Calc Est GFR (MDRD) Af Amer Est GFR (MDRD) Non-Af BUN/Creatinine Ratio Glucose Calcium 05/30/18 05:25 WBC RBC Hgb Hct MCV MCH MCHC RDW RDW Differential Plt Count MPV Eos Smear Total Cells PT INR Sodium 140 Potassium 4.2 Chloride 106 Carbon Dioxide 24.0 Anion Gap 10 BUN 28 H Creatinine 1.49 H Estim Creat Clear Calc 67.43 Est GFR (MDRD) Af Amer 64 Est GFR (MDRD) Non-Af 53 L BUN/Creatinine Ratio 18.8 Glucose 91 Calcium 9.3 Medical Necessity - Tobacco Use Smoking Status: Former smoker Route of nutrition/ use of supplements: [] Nutritional Intake: [] IV Site: [] Grace Catheter: [] - Assessment/Plan Left BKA stump infection status post surgical debridement with rare growth of MRSA isolated from the intraoperative cultures in 25 May. Renal function appears to be stable and patient is tolerating Bactrim well. Anticipate a total 2 weeks of oral Bactrim if the patient continues to remain stable
--- NOTE | 2018-05-30 13:54 | PCM.PN.SRG ---
Subjective: Postop #5 Patient is resting comfortably. - Physical Exam General: Alert, Oriented x3 HEENT: PERRLA, EOMI Oral: Moist Mucosa Neck: Supple Abdomen: Soft, Non-Distended Skin: Incision - stump incision is dry and intact. No vascular compromise seen on the skin flaps. Mild swelling slowly resolving., - - VAC in place over skin graft. Minimal drainage in the canister. Neurological: Cranial nerves II-XII grossly intact Psych/Mental Status: Normal Affect, Appropriate Vital Signs Temp Pulse Resp BP Pulse Ox 97.7 F L 83 18 114/63 96 05/30/18 08:50 05/30/18 08:50 05/30/18 08:50 05/30/18 08:50 05/30/18 08:50 Oxygen Flow Rate (L/min) 1 Oxygen Delivery Method Room Air Weight: 195 lb 0.017 oz Body Mass Index (BMI) 25.0 Intake and Output for Last 24 Hours 05/28/18 05/29/18 05/30/18 23:59 23:59 23:59 Intake Total 2497 / 2497 1625 / 1625 1240 / 1240 Output Total 4237 / 4237 1400 / 1400 860 / 860 Balance -1740 / -1740 225 / 225 380 / 380 Drainage 10 ml today. Microbiology Past 72 Hours 05/25/18 16:24 Gram Stain - Final Tissue Ulcer - Open/Non-Healing Wound Wound Culture - Final Meth. resistant Staph. aureus Anaerobic Culture - Final No anaerobic bacteria isolated. Laboratory Tests Past 24 Hrs 05/27/18 05/30/18 05/30/18 13:40 05:25 05:25 WBC 9.0 RBC 3.05 L Hgb 9.5 L Hct 28.9 L MCV 94.8 H MCH 31.1 MCHC 32.9 RDW 13.7 RDW Differential 45.5 H Plt Count 345 MPV 9.5 Eos Smear Total Cells No Eosinophils Seen PT 17.1 H INR 1.4 Sodium Potassium Chloride Carbon Dioxide Anion Gap BUN Creatinine Estim Creat Clear Calc Est GFR (MDRD) Af Amer Est GFR (MDRD) Non-Af BUN/Creatinine Ratio Glucose Calcium 05/30/18 05:25 WBC RBC Hgb Hct MCV MCH MCHC RDW RDW Differential Plt Count MPV Eos Smear Total Cells PT INR Sodium 140 Potassium 4.2 Chloride 106 Carbon Dioxide 24.0 Anion Gap 10 BUN 28 H Creatinine 1.49 H Estim Creat Clear Calc 67.43 Est GFR (MDRD) Af Amer 64 Est GFR (MDRD) Non-Af 53 L BUN/Creatinine Ratio 18.8 Glucose 91 Calcium 9.3 Medical Necessity - Tobacco Use Smoking Status: Former smoker Assessment/Plan All Active Problems (Last Reviewed 05/27/18 @ 13:57 by Alton Kingsley DO) JUAN (acute kidney injury) (Acute) Thrush, oral (Acute) 1. Nonhealing ulcer left BKA stump. 2. Pain left BKA stump. 3. 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 4. 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 5. correction use of anticoagulation. 6. s/p surgical preparation left BKA stump with excisional debridement nonhealing infected ulcer and complex secondary wound closure revision reconstruction with re-advancement muscle flap and bipedicle anterior leg fasciocutaneous advancement flap and STSG from the left flank (60 cm2). 7. Early renal insufficiency, probable medication related, resolving. 8. MRSA. 9. Anemia of chronic disease, acute on chronic, stable. Patient is resting comfortably. VAC in place over skin graft. Incision dry and intact. No vascular compromise noted on the skin flaps. Operative culture shows MRSA. Continue Bactrim DS. He is doing ok on the po antibiotics. Can discharge home today. His Creatinine had slight increase to 1.49 from 1.43. He needs to drink more liquids when at home to stay hydrated. Will recheck another Creatinine next week as an outpatient. Patient states he has Eliquis at home and will start that. Will stop the Coumadin since it interacts with the Bactrim and can increase risk of bleeding. INR today was 1.4. With Eliquis, there won't be the need to bridge with Lovenox at home. Hgb was improved to 9.5 from 9.1. He has anemia of chronic disease, acute on chronic. He had minimal blood loss at surgery and not much coming out of his drain. The incision area shows no clinical evidence of hematoma. This decrease is mostly due to IV dilution from the surgery. Continue Iron supplements. Prealbumin 17.5. Encourage nutritional supplementation with protein to help the healing process. Wrote scripts for Percocet for pain (40 tabs) and for Valium for spasm (30 tabs). Wrote script for Bactrim DS for 2 weeks (28 tabs). Will reassess at the [facility] to see if additional antibiotics are warranted. Wrote script for Colace for constipation (60 tabs). Followup at [facility] on Monday06/04/18. Will change the VAC over the skin graft at that time.
--- NOTE | 2018-05-30 14:12 | PCM.DC ---
- Discharge Diagnoses Current Active Problems: Current Active and Chronic Problems (Last Reviewed 05/27/18 @ 13:57 by Alton Kingsley DO) JUAN (acute kidney injury) (Acute) You will use the following diet at home:: No restrictions, Other - encourage nutritional supplementation with protein to help the healing process. Discharge Activity: May Shower - wear plastic bag over left leg when showering. Use a shower chair. May shower in (days): 1 - wear plastic bag over left leg when showering. May resume sexual activity in: 10-14 days Weight Bearing Status: Weight bearing as tolerated - on right leg. Use a walker with assist or a wheelchair. Keep extremity elevated above heart level: Left Leg Call your doctor if your incision/area has: Continuous Slow Oozing, Sudden Increased Bleeding, Increased Pain/ Swelling, Increased Redness, Foul Smelling Discharge, Swelling at the incision site Call your doctor if you observe: Fever of 101 or Higher, Coldness, Increased Pain, Shortness of breath, Chest pain, Calf discomfort, Uncontrolled pain Suture Line Care: - - apply bactroban ointment to suture line daily or every other day. Change Dressing in (Days):: 2 - gauze dressing followed by compression peace wrap daily or every other day. Cleanse incision/area with: - - wear a plastic bag over left leg when showering. Use a shower chair. Drain: Suction - en drain to bulb suction. empty and record output daily. Additional Instructions: Please drink extra water to stay hydrated. Will check another Creatinine next week. Allergies/Adverse Reactions: Allergies Penicillins Allergy (Verified 05/17/18 13:21) Swelling adhesive tape Adverse Reaction (Verified 05/17/18 13:21) Rash Medications to take at Discharge Gabapentin [Neurontin] 1,800 mg PO BID 03/05/18 Atorvastatin Calcium [Lipitor] 40 mg PO QHS 04/03/18 Carvedilol 12.5 mg PO DAILY 04/03/18 Lisinopril 20 mg PO DAILY 04/03/18 Cyclobenzaprine [Flexeril] 10 mg PO TID tablet 04/12/18 Zolpidem Tartrate [Ambien] 5 mg PO QHS PRN PRN tablet 04/12/18 Apixaban [Eliquis] 5 mg PO BID #60 tablet 05/28/18 Diazepam [Valium] 5 mg PO 4X/DAY PRN #30 tab 05/30/18 Docusate Sodium [Colace] 100 mg PO BID #60 cap 05/30/18 Iron Polysaccharide Complex [Ferrex 150] 150 mg PO DAILYCM #30 cap 05/30/18 Mupirocin [Bactroban] 1 applic TOPICAL .QDAILY #2 tube 05/30/18 Oxycodone HCl/Acetaminophen [Percocet 5-325] 1 - 2 tab PO 4X/DAY PRN PRN 5 Days #40 tab 05/30/18 Smz/Tmp Ds [Bactrim Ds] 1 tab PO BIDCM #28 tab 05/30/18 The following prescriptions were given: Iron Polysaccharide Complex [Ferrex 150] 150 mg PO DAILYCM #30 cap Mupirocin [Bactroban] 1 applic TOPICAL .QDAILY #2 tube Oxycodone HCl/Acetaminophen [Percocet 5-325] 1 - 2 tab PO 4X/DAY PRN PRN 5 Days #40 tab PRN Reason: Pain Apixaban [Eliquis] 5 mg PO BID #60 tablet Docusate Sodium [Colace] 100 mg PO BID #60 cap Smz/Tmp Ds [Bactrim Ds] 1 tab PO BIDCM #28 tab Diazepam [Valium] 5 mg PO 4X/DAY PRN #30 tab PRN Reason: spasms Orders to be completed after discharge: Basic Metabolic Profile (BMP) Time Frame: 1 Week, Location: Laboratory Primary Care Physician: Dharmesh Alonso MD [Primary Care Provider] - Test Results: Test results from this visit will be discussed in further detail at your follow-up appointment, if applicable. Please Follow Up With: Francois Massey MD When: monday06/04/18 at [facility]. Call [phone] for appointment time. Proposed Discharge Date: 05/30/18
--- NOTE | 2018-05-30 14:16 | DCINST_ITS ---
- Discharge Diagnoses Current Active Problems: Current Active and Chronic Problems (Last Reviewed 05/27/18 @ 13:57 by Alton Kingsley DO) JUAN (acute kidney injury) (Acute) You will use the following diet at home:: No restrictions, Other - encourage nutritional supplementation with protein to help the healing process. Discharge Activity: May Shower - wear plastic bag over left leg when showering. Use a shower chair. May shower in (days): 1 - wear plastic bag over left leg when showering. May resume sexual activity in: 10-14 days Weight Bearing Status: Weight bearing as tolerated - on right leg. Use a walker with assist or a wheelchair. Keep extremity elevated above heart level: Left Leg Call your doctor if your incision/area has: Continuous Slow Oozing, Sudden Increased Bleeding, Increased Pain/ Swelling, Increased Redness, Foul Smelling Discharge, Swelling at the incision site Call your doctor if you observe: Fever of 101 or Higher, Coldness, Increased Pain, Shortness of breath, Chest pain, Calf discomfort, Uncontrolled pain Suture Line Care: - - apply bactroban ointment to suture line daily or every o ther day. Change Dressing in (Days):: 2 - gauze dressing followed by compression peace wrap daily or every other day. Cleanse incision/area with: - - wear a plastic bag over left leg when showering. Use a shower chair. Drain: Suction - en drain to bulb suction. empty and record output daily. Additional Instructions: Please drink extra water to stay hydrated. Will check another Creatinine next week. Allergies/Adverse Reactions: Allergies Penicillins Allergy (Verified 05/17/18 13:21) Swelling adhesive tape Adverse Reaction (Verified 05/17/18 13:21) Rash Medications to take at Discharge Gabapentin [Neurontin] 1,800 mg PO BID 03/05/18 Atorvastatin Calcium [Lipitor] 40 mg PO QHS 04/03/18 Carvedilol 12.5 mg PO DAILY 04/03/18 Lisinopril 20 mg PO DAILY 04/03/18 Cyclobenzaprine [Flexeril] 10 mg PO TID tablet 04/12/18 Zolpidem Tartrate [Ambien] 5 mg PO QHS PRN PRN tablet 04/12/18 Apixaban [Eliquis] 5 mg PO BID #60 tablet 05/28/18 Diazepam [Valium] 5 mg PO 4X/DAY PRN #30 tab 05/30/18 Docusate Sodium [Colace] 100 mg PO BID #60 cap 05/30/18 Iron Polysaccharide Complex [Ferrex 150] 150 mg PO DAILYCM #30 cap 05/30/18 Mupirocin [Bactroban] 1 applic TOPICAL .QDAILY #2 tube 05/30/18 Oxycodone HCl/Acetaminophen [Percocet 5-325] 1 - 2 tab PO 4X/DAY PRN PRN 5 Days #40 tab 05/30/18 Smz/Tmp Ds [Bactrim Ds] 1 tab PO BIDCM #28 tab 05/30/18 The following prescriptions were given: Iron Polysaccharide Complex [Ferrex 150] 150 mg PO DAILYCM #30 cap Mupirocin [Bactroban] 1 applic TOPICAL .QDAILY #2 tube Oxycodone HCl/Acetaminophen [Percocet 5-325] 1 - 2 tab PO 4X/DAY PRN PRN 5 Days #40 tab PRN Reason: Pain Apixaban [Eliquis] 5 mg PO BID #60 tablet Docusate Sodium [Colace] 100 mg PO BID #60 cap Smz/Tmp Ds [Bactrim Ds] 1 tab PO BIDCM #28 tab Diazepam [Valium] 5 mg PO 4X/DAY PRN #30 tab PRN Reason: spasms Orders to be completed after discharge: Basic Metabolic Profile (BMP) Time Frame: 1 Week, Location: Laboratory Primary Care Physician: Dharmesh Alonso MD [Primary Care Provider] - Test Results: Test results from this visit will be discussed in further detail at your follow- up appointment, if applicable. Please Follow Up With: Francois Massey MD When: monday06/04/18 at [facility]. Call [phone] for appointment time. Proposed Discharge Date: 05/30/18
--- NOTE | 2018-05-30 14:22 | PCM.DC.SUM ---
Discharge Date and Diagnosis Date of Admission: 05/25/18 Date of Discharge: 05/30/18 - Primary Discharge Diagnosis Nonhealing ulcer left BKA stump. Pain left BKA stump. JUAN (acute kidney injury), probable medication related. MRSA. Anemia of chronic disease, acute on chronic. 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 History of pulmonary embolism History of DVT (deep vein thrombosis) Status post below knee amputation of left lower extremity CAD (coronary artery disease) HTN (hypertension) Peripheral arterial disease SVT (supraventricular tachycardia) Hypercoagulable state Hospital Course and Treatment Imaging Results: None. CONSULTATIONS Hospitalist Group - Dr. Kingsley and Dr. Robledo. Infectious Diseases - Dr. Avery. Operations: - - 05/25/18 - 1. Surgical preparation left BKA stump with excisional debridement nonhealing infected ulcer. 2. Complex secondary wound closure revision reconstruction with re-advancement muscle flap and bipedicle anterior leg fasciocutaneous advancement flap and STSG from the left flank (60 cm2). Procedures: Wound vac placement Summary of Care Provided: 52 year old man presents with complaints of pain in his left BKA stump. 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 He had a nonhealing ulcer anteriorly over the bone that is presently healed. He was recently admitted to [facility] for IV antibiotics because of this ulceration and underlying osteomyelitis. He had an MRI done on 10/21/17 which showed osteomyelitis. During his IV antibiotic therapy, he developed a blood clot and PE. He is now on Coumadin. Because of the pain in his stump, he is unable to use his prosthesis. He was taken to surgery on 04/05/18 where he underwent surgical preparation left BKA stump with incision and drainage and excisional debridement nonhealing infected ulcer and partial ostectomy tibia for osteomyelitis. He is using the VAC for wound care. Cultures were negative. Pathology was negative. He was discharged on Doxycycline and Levaquin. His left BKA stump ulcer is stable at this time. He presents for further debridement and wound closure. Today, 05/25/18, the patient went to the operating room and underwent surgical preparation left BKA stump with excisional debridement nonhealing infected ulcer and complex secondary wound closure revision reconstruction with re-advancement muscle flap and bipedicle anterior leg fasciocutaneous advancement flap and STSG from the left flank (60 cm2). He tolerated the procedure well. He was treated initially with Vancomycin, Levaquin, and Flagyl. He was afebrile during his hospital stay. He was treated with Lovenox perioperatively as the Coumadin was restarted. His stump incision remained dry and intact throughout his hospital stay, and the stump was soft without evidence of hematoma. On the first postop day, his Creatinine increased from 1.32 to 1.46. His Vancomycin was stopped and he was started on Doxycycline. His Prealbumin was 17.5. Encourage nutritional supplementation with protein to help the healing process. On the second postop day, his Creatinine increased to 1.70. Hospitalist Group was consulted to assist in medical management. They increased his hydration and held the Lisinopril. On the third postop day, the skin graft dressing was changed. The skin graft showed good adherence and 90% take and some early vascular ingrowth. Small amount of moisture seen on the graft and the VAC was applied to the graft for continued adherence. It will be changed next week at the Wound Center. Operative culture showed MRSA. Because of the issues with the Creatinine from the Vancomycin, Infectious Diseases was consulted to assist with antibiotic management. The incision looked dry and intact and the stump was soft. So oral antibiotics were started with Bactrim DS. He had been on Doxycycline and Levaquin which are both resistant to the MRSA and were stopped. The Flagyl was also stopped. His Creatinine decreased to 1.45 off the Vancomycin. His Hgb dropped a little bit during the hospital stay from 9.7 down to 8.9. Iron supplementation was started. On the fourth postop day, his Creatinine continued to decrease slowly to 1.43. There were no problems with the incision and the stump on oral antibiotics. It was discussed with the patient that being on Bactrim DS can increase bleeding from the Coumadin. The patient stated he has some Eliquis at home and will start them after discharge in order to minimize the interaction with the Bactrim DS. His INR was 1.2. His Hgb improved to 9.1. On the fifth postop day, his Creatinine increased slightly to 1.49. He was told to drink more liquids when at home to stay hydrated. Will recheck another Creatinine in a week as an outpatient. After being on po Bactrim DS for a couple of days, the incision and stump remained stable with no evidence of infection. So he was discharged home in satisfactory condition. His Hgb improved to 9.5. He will continue Iron supplementation at home. INR was 1.4. With the Eliquis, there won't be the need to bridge with Lovenox at home. Wrote scripts for Percocet for pain (40 tabs) and for Valium for spasm (30 tabs). Wrote script for Bactrim DS for 2 weeks (28 tabs). Will reassess at the Wound Center to see if additional antibiotics are warranted. Wrote script for Colace for constipation (60 tabs). Followup at the Wound Center on 06/04/18. Will change the VAC over the skin graft at that time. Subjective: Patient is resting comfortably. - Physical Exam General: Alert, Oriented x3 HEENT: PERRLA, EOMI Oral: Moist Mucosa Neck: Supple Abdomen: Soft, Non-Distended Skin: Incision - stump incision is dry and intact. No vascular compromise seen on the skin flaps. Mild swelling slowly resolving., - - VAC in place over skin graft. Minimal drainage in the canister. Neurological: Cranial nerves II-XII grossly intact Psych/Mental Status: Normal Affect, Appropriate Vital Signs Temp Pulse Resp BP Pulse Ox 97.7 F L 83 18 114/63 96 05/30/18 08:50 05/30/18 08:50 05/30/18 08:50 05/30/18 08:50 05/30/18 08:50 Oxygen Flow Rate (L/min) 1 Oxygen Delivery Method Room Air Weight: 195 lb 0.017 oz Body Mass Index (BMI) 25.0 Intake and Output for Last 24 Hours 05/28/18 05/29/18 05/30/18 23:59 23:59 23:59 Intake Total 2497 / 2497 1625 / 1625 1240 / 1240 Output Total 4237 / 4237 1400 / 1400 860 / 860 Balance -1740 / -1740 225 / 225 380 / 380 Microbiology Past 72 Hours 05/25/18 16:24 Gram Stain - Final Tissue Ulcer - Open/Non-Healing Wound Wound Culture - Final Meth. resistant Staph. aureus Anaerobic Culture - Final No anaerobic bacteria isolated. Laboratory Tests Past 24 Hrs 01/02/19 01/02/19 01/02/19 05:25 05:25 05:25 WBC 9.0 RBC 3.05 L Hgb 9.5 L Hct 28.9 L MCV 94.8 H MCH 31.1 MCHC 32.9 RDW 13.7 RDW Differential 45.5 H Plt Count 345 MPV 9.5 PT 17.1 H INR 1.4 Sodium 140 Potassium 4.2 Chloride 106 Carbon Dioxide 24.0 Anion Gap 10 BUN 28 H Creatinine 1.49 H Estim Creat Clear Calc 67.43 Est GFR (MDRD) Af Amer 64 Est GFR (MDRD) Non-Af 53 L BUN/Creatinine Ratio 18.8 Glucose 91 Calcium 9.3 Discharge Diet: No Restrictions, - - Encourage nutritional supplementation with protein to help the healing process. Discharge Activity: May Shower - wear plastic bag over left leg when showering. Use a shower chair. May shower in (days): 1 - wear plastic bag over left leg when showering. May resume sexual activity in: 10-14 days Weight Bearing Status: Weight bearing as tolerated - on right leg. Use a walker with assist or a wheelchair. Keep extremity elevated above heart level: Left Leg Call your doctor if your incision/area has: Continuous Slow Oozing, Sudden Increased Bleeding, Increased Pain/ Swelling, Increased Redness, Foul Smelling Discharge, Swelling at the incision site Call your doctor if you observe: Fever of 101 or Higher, Coldness, Increased Pain, Shortness of breath, Chest pain, Calf discomfort, Uncontrolled pain Suture Line Care: - - apply bactroban ointment to suture line daily or every other day. Change Dressing in (Days):: 2 - gauze dressing followed by compression peace wrap daily or every other day. Cleanse incision/area with: - - wear a plastic bag over left leg when showering. Use a shower chair. Drain: Suction - en drain to bulb suction. empty and record output daily. Home Medications: Medications to take at Discharge Gabapentin [Neurontin] 1,800 mg PO BID 03/05/18 Atorvastatin Calcium [Lipitor] 40 mg PO QHS 04/03/18 Carvedilol 12.5 mg PO DAILY 04/03/18 Lisinopril 20 mg PO DAILY 04/03/18 Cyclobenzaprine [Flexeril] 10 mg PO TID tablet 04/12/18 Zolpidem Tartrate [Ambien] 5 mg PO QHS PRN PRN tablet 04/12/18 Apixaban [Eliquis] 5 mg PO BID #60 tab 05/28/18 Diazepam [Valium] 5 mg PO 4X/DAY PRN #30 tab 05/30/18 Docusate Sodium [Colace] 100 mg PO BID #60 cap 05/30/18 Iron Polysaccharide Complex [Ferrex 150] 150 mg PO DAILYCM #30 cap 05/30/18 Mupirocin [Bactroban] 1 applic TOPICAL .QDAILY #2 tube 05/30/18 Oxycodone HCl/Acetaminophen [Percocet 5-325] 1 - 2 tab PO 4X/DAY PRN PRN 5 Days #40 tab 05/30/18 Smz/Tmp Ds [Bactrim Ds] 1 tab PO BIDCM #28 tab 05/30/18 Following Prescrptions Were Given to Patient: Iron Polysaccharide Complex [Ferrex 150] 150 mg PO DAILYCM #30 cap Mupirocin [Bactroban] 1 applic TOPICAL .QDAILY #2 tube Oxycodone HCl/Acetaminophen [Percocet 5-325] 1 - 2 tab PO 4X/DAY PRN PRN 5 Days #40 tab PRN Reason: Pain Apixaban [Eliquis] 5 mg PO BID #60 tab Docusate Sodium [Colace] 100 mg PO BID #60 cap Smz/Tmp Ds [Bactrim Ds] 1 tab PO BIDCM #28 tab Diazepam [Valium] 5 mg PO 4X/DAY PRN #30 tab PRN Reason: spasms Other Amb Orders: Basic Metabolic Profile (BMP) Time Frame: 1 Week, Location: Laboratory Primary Care Physician: Dharmesh Alonso MD [Primary Care Provider] - Please Follow Up With: Francois Massey MD When: monday06/04/18 at [facility]. Call [phone] for appointment time. Minutes spent on discharge:: 35 Patient Condition:: Stable Medical Necessity - Tobacco Use Smoking Status: Former smoker Meaningful Use Info Meaningful Use Diagnoses (Choose all that apply): None applicable
[2018-05-30 14:31] VITALS: BP 106/64; PULSE 73; RESP 18; TEMP 36.6; O2SAT 96
--- NOTE | 2018-05-30 15:08 | NURSING ---
Pt switched over to the home VAC since he has been discharged home. Pt has an appt at the [facility]ound healing center on 06/04/18. pt denies further needs at this time.
--- NOTE | 2018-05-31 13:58 | CASEMGMT ---
[facility]SH[facility] PHONE CALL. DC Date: 05/30/17 DC Disposition: Home w/follow up @ wound clinic. CARLOS STRATA 3 Call to cell phone, message left w/call back information if pt has questions re: post hospital instructions, care. Mio CASTRON RN ACM
== END 2018-05-30 16:07 | disposition home or self-care (01) | DRG 464 ==
LOC: SDC 16:46 → MS2 05-28 06:58
PROVIDERS: Anesthesiology; Admitting Provider Surgery; Family Provider Internal Medicine; PCP Internal Medicine; Referring Provider Surgery; Visit Provider Internal Medicine
PROC: 0JBN0ZZ Excision of Right Lower Leg Subcutaneous Tissue and Fascia, Open Approach (ICD-10-PCS; principal; 2018-05-25 11:30)
DX: T87.89 Other complications of amputation stump (principal); L97.829 Non-pressure chronic ulcer of other part of left lower leg with unspecified severity; N17.9 Acute kidney failure, unspecified; B37.0 Candidal stomatitis; I73.9 Peripheral vascular disease, unspecified; B95.62 Methicillin resistant Staphylococcus aureus infection as the cause of diseases classified elsewhere; Z79.01 Long term (current) use of 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s; Z87.891 Personal history of nicotine dependence; Z89.512 Acquired absence of left leg below knee; Z86.711 Personal history of pulmonary embolism; E78.5 Hyperlipidemia, unspecified; I25.10 Atherosclerotic heart disease of native coronary artery without angina pectoris; Z86.718 Personal history of other venous thrombosis and embolism; D63.8 Anemia in other chronic diseases classified elsewhere; I10 Essential (primary) hypertension
CPT/HCPCS: 36415; 36416; 80048; 81001; 82570; 84134; 84300; 85027; 85610; 87015; 87070; 87075; 87077; 87102; 87116; 87186; 87205; 87206; 88304; 88305; 88312; 99406; J7030; J7120; A4216; J2405

== ENCOUNTER 2018-06-25 08:00 | Outpatient (RCR) | payer SELFPAY ==
[2018-05-29 01:04] VITALS: BP 155/98; PULSE 97; RESP 18; TEMP 36.8; BMI 24.5
[2018-06-04 08:17] VITALS: BP 137/84; PULSE 128; RESP 18; TEMP 36; BMI 24.5
--- NOTE | 2018-06-05 00:16 | PN.PCM_ITS ---
Type of Wound Date of Service: 06/04/18 Chief Complaint: Nonhealing ulcer left BKA stump with recent surgical closure 05/25/18 and mild skin graft compromise. History of Wound: Surgery 05/25/18 - 1. Surgical preparation left BKA stump with excisional debridement nonhealing infected ulcer. 2. Complex secondary wound closure revision reconstruction with re-advancement muscle flap and bipedicle anterior leg fasciocutaneous advancement flap and STSG from the left flank (60 cm2). Surgery 04/05/18 - 1. Surgical preparation left BKA stump with incision and drainage and excisional debridement nonhealing infected ulcer. 2. Partial ostectomy tibia for osteomyelitis. Wound care - VAC on the skin graft. Operative culture - MRSA. Soft tissue from 04/05/18 surgery - negative. Bone from 04/05/18 surgery - negative. Pathology from 04/05/18 surgery - negative for ostemyelitis. He was discharged on Bactrim DS. Initially perioperatively he was on Vancomycin. His Creatinine increased to 1.70 and the Vancomycin was stopped. At discharge his Creatinine had decreased to 1.49. After the 04/05/18 surgery he was placed on Doxycycline and Levaquin. Prealbumin from 05/26/18 was 17.5. Encourage nutritional supplementation with protein to help the healing process. MRI left BKA stump in 10/13 showed osteomyelitis. He changed his anticoagulation medication and stopped the Coumadin and started Eliquis. Today he denies fever. His appetite is good. Progress of Wound: Recent surgery 05/25/18 with mild skin graft compromise. - Physical Exam Vital Signs Temp Pulse Resp BP 96.8 F L 128 H 18 137/84 H 06/04/18 08:17 06/04/18 08:17 06/04/18 08:17 06/04/18 08:17 Skin: Incision - The skin graft shows good adherence and about 90% take and good vascular ingrowth. There is some mild compromise at the edges of the skin graft (about 10% compromise). The stump incision is dry and intact and healing. The stump is soft with mild swelling. Anteriorly aspect of the stump shows some mild epidermolysis and the dermis is viable. Will observe at this time. Wound Measurements and Assessment WC - Nurse 1 - General Ulcer Measurement Start: 06/04/18 08:17 Freq: Status: Active Protocol: Activity Type Activity Date Activity User E-Sign Co-Sign Detail Recorded Client Recorded Date Recorded By Document 06/04/18 08:17 [id number] 06/04/18 08:27 06/04/18 08:17 Wound Center Nurse 1 [Ulcer Assessment] #5 L BKA stump -Combined with other wound No -Current Size (cm) - Length 0.1 -Current Size (cm) - Width 0.1 -Current Size (cm) - Depth 0.1 -Total Square Cm 0.01 -Photo Taken Yes -Epithelialization Large 67-100% -Tunneling No -Undermining/Tunneling No -Circular Undermining No -Exudate Amt Small (1-33%) -Exudate Type Serosanguineous -Wound Margin Flat & Intact -Granulation Amt Large (67-100%) -Slough/Fibrin Yes -Necrosis Amt Small (1-33%) -Necrotic Tissue Type Adherent Slough -Structure Exposed N/A -Texture (Ami-wound Skin Appearance) Assessed Localized Edema -Moisture (Ami-wound Skin Appearance Assessed ) Dry/Scaly -Color (Ami-wound Skin Appearance) Assessed -Temperature (Ami-wound Skin No Abnormality Appearance) (Pt Warm) -Tenderness on Palpation (Ami-wound No Skin Appearance) -Ulcer Cleansing Wound Cleanser -Foul Odor after Cleansing No [Edema Assessment] -Lower Limb Edema Present NA WC - Nurse 2 - General Ulcer CM Notes Start: 06/04/18 08:17 Freq: Status: Active Protocol: Activity Type Activity Date Activity User E-Sign Co-Sign Detail Recorded Client Recorded Date Recorded By Document 06/04/18 08:53 [id number] 06/04/18 08:58 06/04/18 08:53 Wound Center Nurse 2 [Procedure/Treatment] #5 L BKA stump -Correct Patient No -Correct Side, Site, Position No -Correct Procedure No -Procedure Performed No -Post Debridement Size (cm) - Length 0.1 -Post Debridement Size (cm) - Width 0.1 -Post Debridement Size (cm) - Depth 0.1 -Total Square Cm 0.01 -Wound/Ulcer Outcome Not Healed -Ulcer Cleansing Rinsed/ Irrigated with Saline -Foul Odor after Cleansing No -Bioengineered Tissue No -Bleeding Controlled with NA -Offloading No -Treatment Response Procedure Tolerated Well [See Physician Procedure note for Specifics] Pain Scale: 0-10 Numeric [Pain] -Is Patient Pain Free? Yes Debridement Note Post-Debridement Measurements/Treatment WC - Nurse 2 - General Ulcer CM Notes Start: 06/04/18 08:17 Freq: Status: Active Protocol: Activity Type Activity Date Activity User E-Sign Co-Sign Detail Recorded Client Recorded Date Recorded By Document 06/04/18 08:53 [email or web address] 06/04/18 08:58 06/04/18 08:53 Wound Center Nurse 2 #5 L BKA stump -Correct Patient No -Correct Side, Site, Position No -Correct Procedure No -Procedure Performed No -Post Debridement Size (cm) - Length 0.1 -Post Debridement Size (cm) - Width 0.1 -Post Debridement Size (cm) - Depth 0.1 -Total Square Cm 0.01 -Wound/Ulcer Outcome Not Healed -Ulcer Cleansing Rinsed/ Irrigated with Saline -Foul Odor after Cleansing No -Bioengineered Tissue No -Bleeding Controlled with NA -Offloading No -Treatment Response Procedure Tolerated Well Pain Scale: 0-10 Numeric Is Patient Pain Free? Yes Wound debrided: #4 Left BKA stump. Laterality: Left Wound Grade/Stage: 4. No debridement was completed today - Patient had surgery 05/25/18 for stump closure. Assessment/Plan Assessment: 1. Nonhealing ulcer left BKA stump with recent surgical closure 05/25/18. 2. Pain left BKA stump. 3. MRSA. 4. 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 5. 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 7. Early skin graft compromise left BKA stump, (10% compromise). 8. s/p surgical preparation left BKA stump with excisional debridement nonhealing infected ulcer and complex secondary wound closure revision reconstruction with re-advancement muscle flap and bipedicle anterior leg fasciocutaneous advancement flap and STSG from the left flank (60 cm2). Plan: The skin graft shows good adherence and about 90% take and good vascular ingrowth. There is some mild compromise at the edges of the skin graft (about 10% compromise). The stump incision is dry and intact and healing. The stump is soft with mild swelling. Anteriorly aspect of the stump shows some mild epidermolysis and the dermis is viable. Will observe at this time. With the mild skin graft compromise and the mild compromise on the anterior aspect of the stump flap, he is a candidate for HBO therapy to try and salvage the compromised graft and flap. Continue the VAC to the skin graft to help with compression and to help with some residual moisture on the graft. Will need a nurse visit later in the week for a VAC change. Continue Bactrim DS for the MRSA. Prealbumin from the hospital was 17.5. Encourage nutritional supplementation with protein to help the healing process. Will check another Creatinine to make sure it continues to improve after stopping the Vancomycin. He states he is scheduled to have the lab drawn tomorrow. Renewed his Percocet for pain (30 tabs). Renewed his Valium for spasm (30 tabs). Followup one week.
[2018-06-07 12:01] VITALS: BP 105/69; PULSE 92; RESP 16; TEMP 36.4; BMI 24.5
[2018-06-11 08:12] VITALS: BP 120/77; PULSE 102; RESP 16; TEMP 36.9; BMI 24.5
--- NOTE | 2018-06-11 10:13 | PN.PCM_ITS ---
Type of Wound Date of Service: 06/11/18 Chief Complaint: Nonhealing ulcer left BKA stump with recent surgical closure 05/25/18 and mild skin graft compromise. History of Wound: Surgery 05/25/18 - 1. Surgical preparation left BKA stump with excisional debridement nonhealing infected ulcer. 2. Complex secondary wound closure revision reconstruction with re-advancement muscle flap and bipedicle anterior leg fasciocutaneous advancement flap and STSG from the left flank (60 cm2). Surgery 04/05/18 - 1. Surgical preparation left BKA stump with incision and drainage and excisional debridement nonhealing infected ulcer. 2. Partial ostectomy tibia for osteomyelitis. Wound care - VAC on the skin graft. Operative culture - MRSA. Soft tissue from 04/05/18 surgery - negative. Bone from 04/05/18 surgery - negative. Pathology from 04/05/18 surgery - negative for ostemyelitis. He was discharged on Bactrim DS. Initially perioperatively he was on Vancomycin. His Creatinine increased to 1.70 and the Vancomycin was stopped. At discharge his Creatinine had decreased to 1.49. After the 04/05/18 surgery he was placed on Doxycycline and Levaquin. Prealbumin from 05/26/18 was 17.5. Encourage nutritional supplementation with protein to help the healing process. MRI left BKA stump in 10/13 showed osteomyelitis. He changed his anticoagulation medication and stopped the Coumadin and started Eliquis. Today he denies fever. His appetite is good. With his early compromise to the skin graft, he is also being evaluated for HBO treatments to help salvage the compromised graft. Progress of Wound: Recent surgery 05/25/18 with mild skin graft compromise. - Physical Exam Vital Signs Temp Pulse Resp BP 98.4 F 102 H 16 120/77 06/11/18 08:12 06/11/18 08:12 06/11/18 08:12 06/11/18 08:12 HEENT: TM's Clear - No bleeding seen. No fluid noted behind the TM's. Skin: Incision - The skin graft shows good adherence and about 90% take and good vascular ingrowth. There is some mild compromise at the edges of the skin graft (about 10% compromise). The stump incision is dry and intact and healing. The stump is soft with mild swelling. Anteriorly aspect of the stump shows some mild epidermolysis with some dry scabbing. The underlying dermis appears viable at this time. With the presence of compromise, the patient will benefit from HBO treatments to help salvage the compromised graft/flap. Wound Measurements and Assessment - Nurse 1 - General Ulcer Measurement Start: 06/04/18 08:17 Freq: Status: Active Protocol: Activity Type Activity Date Activity User E-Sign Co-Sign Detail Recorded Client Recorded Date Recorded By Document 06/11/18 08:12 [email or web address] [id number] 06/11/18 08:26 DV 06/11/18 08:12 Wound Center Nurse 1 [Ulcer Assessment] #5 L BKA stump -Combined with other wound No -Current Size (cm) - Length 0.1 -Current Size (cm) - Width 0.1 -Current Size (cm) - Depth 0.1 -Total Square Cm 0.01 -Photo Taken No -Epithelialization None Present -Tunneling No -Undermining/Tunneling No -Circular Undermining No -Exudate Amt Large -Exudate Type Serosanguineous -Wound Margin Indistinct, Non -Visible -Granulation Amt None Present (0 %) -Granulation Quality N/A -Slough/Fibrin No -Necrosis Amt Small (1-33%) -Necrotic Tissue Type Adherent Slough -Structure Exposed None/Limited to Skin Breakdown -Texture (Ami-wound Skin Appearance) Assessed Localized Edema Scarring -Moisture (Ami-wound Skin Appearance Assessed ) Weeping -Color (Ami-wound Skin Appearance) Assessed -Temperature (Ami-wound Skin No Abnormality Appearance) (Pt Warm) -Tenderness on Palpation (Aim-wound Yes Skin Appearance) -Ulcer Cleansing soap -Foul Odor after Cleansing No -Anesthetic Used 4% Lidocaine Solution - Nurse 2 - General Ulcer CM Notes Start: 06/04/18 08:17 Freq: Status: Active Protocol: Activity Type Activity Date Activity User E-Sign Co-Sign Detail Recorded Client Recorded Date Recorded By Document 06/11/18 08:31 [email or web address] [id number] 06/11/18 08:32 FLAVIA 06/11/18 08:31 Wound Center Nurse 2 [Procedure/Treatment] -Correct Patient No -Correct Side, Site, Position No -Correct Procedure No -Procedure Performed No -Bleeding Controlled with NA -Offloading No [See Physician Procedure note for Specifics] Pain Scale: 0-10 Numeric [Pain] -Is Patient Pain Free? Yes Debridement Note Post-Debridement Measurements/Treatment - Nurse 2 - General Ulcer CM Notes Start: 06/04/18 08:17 Freq: Status: Active Protocol: Activity Type Activity Date Activity User E-Sign Co-Sign Detail Recorded Client Recorded Date Recorded By Document 06/04/18 08:53 [id number] 06/04/18 08:58 Document 06/11/18 08:31 [id number] 06/11/18 08:32 06/04/18 06/11/18 08:53 08:31 Wound Center Nurse 2 #5 L BKA stump -Correct Patient No No -Correct Side, Site, Position No No -Correct Procedure No No -Procedure Performed No No -Post Debridement Size (cm) - Length 0.1 -Post Debridement Size (cm) - Width 0.1 -Post Debridement Size (cm) - Depth 0.1 -Total Square Cm 0.01 -Wound/Ulcer Outcome Not Healed -Ulcer Cleansing Rinsed/ Irrigated with Saline -Foul Odor after Cleansing No -Bioengineered Tissue No -Bleeding Controlled with NA NA -Offloading No No -Treatment Response Procedure Tolerated Well Pain Scale: 0-10 Numeric Is Patient Pain Free? Yes Yes Wound debrided: #5 Left BKA stump. Laterality: Left Wound Grade/Stage: 4. No debridement was completed today - Patient had surgery 05/25/18 for stump closure. Assessment/Plan Assessment: 1. Nonhealing ulcer left BKA stump with recent surgical closure 05/25/18. 2. Pain left BKA stump. 3. MRSA. 4. 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 5. 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 6. care home use of anticoagulation. 7. Early skin graft compromise left BKA stump, (10% compromise). 8. s/p surgical preparation left BKA stump with excisional debridement nonhealing infected ulcer and complex secondary wound closure revision reconstruction with re-advancement muscle flap and bipedicle anterior leg fasciocutaneous advancement flap and STSG from the left flank (60 cm2). Plan: The skin graft shows good adherence and about 90% take and good vascular ingrowth. There is some mild compromise at the edges of the skin graft (about 10% compromise). The stump incision is dry and intact and healing. The stump is soft with mild swelling. The stump is soft with mild swelling. Anteriorly aspect of the stump shows some mild epidermolysis with some dry scabbing. The underlying dermis appears viable at this time. With the mild skin graft compromise and the mild compromise on the anterior aspect of the stump flap, he is a candidate for HBO therapy and would benefit from HBO treatments which would help salvage the compromised graft/flap. He had a CXR done on 04/03/18 which showed no acute pulmonary process. Continue the VAC to the skin graft to help with compression and to help with some residual moisture on the graft for one more week. Will need a nurse visit later in the week for a VAC change. Continue Bactrim DS for the MRSA. Prealbumin from the hospital was 17.5. Encourage nutritional supplementation with protein to help the healing process. Will check another Creatinine to make sure it continues to improve after stopping the Vancomycin. He hasn't had it drawn yet. Renewed his Percocet for pain (30 tabs). Renewed his Valium for spasm (30 tabs). Followup one week.
[2018-06-14 08:11] VITALS: BP 121/54; PULSE 94; RESP 18; TEMP 36.2; BMI 24.5
--- NOTE | 2018-06-18 21:34 | PCM.WC.PN ---
Type of Wound Date of Service: 06/18/18 Chief Complaint: Nonhealing ulcer left BKA stump with recent surgical closure 05/25/18 and mild skin graft/flap compromise. History of Wound: Surgery 05/25/18 - 1. Surgical preparation left BKA stump with excisional debridement nonhealing infected ulcer. 2. Complex secondary wound closure revision reconstruction with re-advancement muscle flap and bipedicle anterior leg fasciocutaneous advancement flap and STSG from the left flank (60 cm2). Surgery 04/05/18 - 1. Surgical preparation left BKA stump with incision and drainage and excisional debridement nonhealing infected ulcer. 2. Partial ostectomy tibia for osteomyelitis. Wound care - VAC on the skin graft. Operative culture - MRSA. Soft tissue from 04/05/18 surgery - negative. Bone from 04/05/18 surgery - negative. Pathology from 04/05/18 surgery - negative for ostemyelitis. He was discharged on Bactrim DS. Initially perioperatively he was on Vancomycin. His Creatinine increased to 1.70 and the Vancomycin was stopped. At discharge his Creatinine had decreased to 1.49. After the 04/05/18 surgery he was placed on Doxycycline and Levaquin. Prealbumin from 05/26/18 was 17.5. Encourage nutritional supplementation with protein to help the healing process. MRI left BKA stump in 10/13 showed osteomyelitis. He changed his anticoagulation medication and stopped the Coumadin and started Eliquis. Today he denies fever. His appetite is good. With his early compromise to the skin graft/flap, he is also being evaluated for HBO treatments to help salvage the compromised graft/flap. Progress of Wound: Surgery 05/25/18 with mild skin graft/flap compromise. - Physical Exam Vital Signs Temp Pulse Resp BP 97.1 F L 94 18 121/54 H 06/14/18 08:11 06/14/18 08:11 06/14/18 08:11 06/14/18 08:11 Skin: Incision - The skin graft shows good adherence and about 90% take and good vascular ingrowth. There is some mild compromise at the edges of the skin graft (about 10% compromise). The stump incision is dry and intact and healing. The stump is soft with mild swelling that is resolving. The central aspect of the stump flap anteriorly shows some mild early compromises with dry eschar (about 10% compromise). With the presence of compromise, the patient will benefit from HBO treatments to help salvage the compromised graft/flap. Wound Measurements and Assessment WC - Nurse 2 - General Ulcer CM Notes Start: 06/04/18 08:17 Freq: Status: Active Protocol: Activity Type Activity Date Activity User E-Sign Co-Sign Detail Recorded Client Recorded Date Recorded By Document 06/18/18 09:58 [id number] 06/18/18 10:00 06/18/18 09:58 Wound Center Nurse 2 [Procedure/Treatment] #5 L BKA stump -Time 09:59 -Correct Patient Yes -Correct Side, Site, Position Yes -Correct Procedure Yes -Procedure Performed Yes -Type of Procedure Debridement -Clinical Debridement Subcutaneous -Post Debridement Size (cm) - Length 6.5 -Post Debridement Size (cm) - Width 11 -Post Debridement Size (cm) - Depth 0.5 -Total Square Cm 71.5 -Wound/Ulcer Outcome Not Healed -Ulcer Cleansing Rinsed/ Irrigated with Saline -Foul Odor after Cleansing No -Bioengineered Tissue No -Bleeding Controlled with Pressure -Offloading No -Treatment Response Procedure Tolerated Well [See Physician Procedure note for Specifics] Pain Scale: 0-10 Numeric [Pain] -Is Patient Pain Free? Yes Debridement Note Post-Debridement Measurements/Treatment WC - Nurse 2 - General Ulcer CM Notes Start: 06/04/18 08:17 Freq: Status: Active Protocol: Activity Type Activity Date Activity User E-Sign Co-Sign Detail Recorded Client Recorded Date Recorded By Document 06/04/18 08:53 [id number] 06/04/18 08:58 Document 06/11/18 08:31 [id number] 06/11/18 08:32 Document 06/18/18 09:58 [id number] 06/18/18 10:00 06/04/18 06/11/18 06/18/18 08:53 08:31 09:58 Wound Center Nurse 2 #5 L BKA stump -Time 09:59 -Correct Patient No No Yes -Correct Side, Site, Position No No Yes -Correct Procedure No No Yes -Procedure Performed No No Yes -Type of Procedure Debridement -Clinical Debridement Subcutaneous -Post Debridement Size (cm) - Length 0.1 6.5 -Post Debridement Size (cm) - Width 0.1 11 -Post Debridement Size (cm) - Depth 0.1 0.5 -Total Square Cm 0.01 71.5 -Wound/Ulcer Outcome Not Healed Not Healed -Ulcer Cleansing Rinsed/ Rinsed/ Irrigated with Irrigated with Saline Saline -Foul Odor after Cleansing No No -Bioengineered Tissue No No -Bleeding Controlled with NA NA Pressure -Offloading No No No -Treatment Response Procedure Procedure Tolerated Well Tolerated Well Pain Scale: 0-10 Numeric Is Patient Pain Free? Yes Yes Yes Wound debrided: #5 Left BKA stump. Laterality: Left Wound Grade/Stage: 4. Type of Debridement: Excisional debridement Anesthesia Used: 4% Lidocaine Solution Depth: Down to and including healthy tissue, in the subcutaneous layer Percentage of wound debrided: 100 Instrument Used: - - pickups and scissors for the dry eschar. Tissue Removed: subcutaneous tissue and dry eschar. Severity: Fat Layer Exposed Amount of bleeding with debridement: Mild Bleeding Controlled with: Pressure Patient tolerated procedure well - a wound culture was done today. Assessment/Plan Assessment: 1. Nonhealing ulcer left BKA stump with recent surgical closure 05/25/18. 2. Pain left BKA stump. 3. MRSA. 4. 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 5. 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 6. longterm use of anticoagulation. 7. Early skin graft/flap compromise left BKA stump, (20% compromise). 8. s/p surgical preparation left BKA stump with excisional debridement nonhealing infected ulcer and complex secondary wound closure revision reconstruction with re-advancement muscle flap and bipedicle anterior leg fasciocutaneous advancement flap and STSG from the left flank (60 cm2). Plan: The skin graft shows good adherence and about 90% take and good vascular ingrowth. There is some mild compromise at the edges of the skin graft (about 10% compromise). Mild moisture present. The stump incision is dry and intact and healing. The stump is soft with mild swelling that is resolving. The central aspect of the stump anteriorly shows some mild compromise with dry eschar. After debridement, the underlying subcutaneous tissue appears viable. A wound culture was obtained today. A positive culture may necessitate antibiotic modification. In the meantime, continue the Bactrim DS for MRSA. With the mild skin graft/flap compromise (about 20% total), he is a candidate for HBO therapy and would benefit from HBO treatments which would help salvage the compromised graft/flap. He had a CXR done on 04/03/18 which showed no acute pulmonary process. Will stop the VAC to the skin graft and begin Silver dressing changes to the skin graft and the central area wound compromise. Prealbumin from the hospital was 17.5. Encourage nutritional supplementation with protein to help the healing process. Will check another Creatinine to make sure it continues to improve after stopping the Vancomycin. He hasn't had it drawn yet. He states he will have it drawn this week. Renewed his Percocet for pain (30 tabs). HBO approval in process. Will remove the stump sutures in next 1-2 weeks. Followup one week.
== END 2018-06-28 23:59 ==
LOC: WC 08:00
PROVIDERS: Family Provider Internal Medicine; PCP Internal Medicine; Visit Provider Surgery
DX: T81.30XA Disruption of wound, unspecified, initial encounter (principal); Y83.8 Other surgical procedures as the cause of abnormal reaction of the patient, or of later complication, without mention of misadventure at the time of the procedure; Z87.891 Personal history of nicotine dependence; Z89.512 Acquired absence of left leg below knee; Z86.14 Personal history of Methicillin resistant Staphylococcus aureus infection; M79.89 Other specified soft tissue disorders
CPT/HCPCS: 11042; 11045; 87070; 87075; 87077; 87186; 87205; 97605; 99213; G0463

== ENCOUNTER → 2018-06-29 10:33 | Outpatient (CLI) | payer OTHER, SELFPAY ==
[2018-06-25 09:29] VITALS: BMI 24.5
[2018-06-29 12:02] LABS: Anion Gap 10 (5-15); BUN 24 mg/dL (7-18); BUN/Creat Ratio 12.2 RATIO (10-20); Chloride 103 mmol/L (98-107); Creatinine, Serum 1.96 mg/dL (0.70-1.30); EST Glomerular Filtration Rate 38 mL/min (>60); Est Glom Filt Rate - Afr Amer 46 mL/min (>60); Glucose 93 mg/dL (74-106); Sodium Level 136 mmol/L (136-145)
== END ==
PROVIDERS: Family Provider Internal Medicine; PCP Internal Medicine; Referring Provider Surgery; Visit Provider Surgery
DX: R79.89 Other specified abnormal findings of blood chemistry (principal)
CPT/HCPCS: 36415; 80048

== ENCOUNTER 2018-07-06 08:00 | Outpatient (RCR) | payer OTHER, SELFPAY ==
[2018-06-25 09:29] VITALS: BMI 24.5
[2018-06-29 01:17] VITALS: BP 121/54; PULSE 94; RESP 18; TEMP 36.2
[2018-07-02 08:11] VITALS: BMI 24.5
--- NOTE | 2018-07-03 08:24 | PCM.HBO.PN ---
History of Present Illness Date of Service: 07/03/18 Presenting Chief Complaint: Nonhealing ulcer left BKA stump with recent surgical closure 05/25/18 and mild skin graft/flap compromise. JANIE CHIN is a 52 year old currently undergoing hyperbaric oxygen therapy for compromised graft/flap of the left BKA. Progress: Today is the first session of hyperbaric oxygen therapy. Tolerance of hyperbaric oxygen therapy: Hyperbaric oxygen therapy was administered as per the facility's protocol. The patient tolerated hyperbaric oxygen therapy well, without complaints or complications. Upon emergence from the hyperbaric chamber, the patient's vital signs remained stable. He was discharged in good condition. 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) Patient is on Coumadin for PE Chronic osteomyelitis of left tibia (Chronic) chronic osteomyelitis left tibia at BKA stump 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) Pain of amputation stump of left lower extremity (Chronic) Dermatitis (Chronic) CAD (coronary artery disease) (Chronic) Osteomyelitis of left lower extremity (Chronic) Pain of left anterior lower extremity (Chronic) Amputation, traumatic, leg (Chronic) HTN (hypertension) (Chronic) Hypertension (Chronic) Peripheral arterial disease (Chronic) SVT (supraventricular tachycardia) (Chronic) Hypercoagulable state (Chronic) Wound, surgical, nonhealing (Chronic) Ischemic ulcer of right foot (Chronic) Allergies/Adverse Reactions: Allergies Penicillins Allergy (Verified 06/25/18 09:29) Swelling adhesive tape Adverse Reaction (Verified 06/25/18 09:29) Rash Home Medications: Ambulatory Orders Medication Instructions Recorded Atorvastatin Calcium [Lipitor] 40 mg PO QHS 04/03/18 Carvedilol 12.5 mg PO DAILY 04/03/18 Lisinopril 20 mg PO DAILY 04/03/18 Cyclobenzaprine [Flexeril] 10 mg PO TID tablet 04/12/18 Zolpidem Tartrate [Ambien] 5 mg PO QHS PRN PRN tablet 04/12/18 Apixaban [Eliquis] 5 mg PO BID #60 tab 05/28/18 Diazepam [Valium] 5 mg PO 4X/DAY PRN #30 tab 05/30/18 Docusate Sodium [Colace] 100 mg PO BID #60 cap 05/30/18 Iron Polysaccharide Complex 150 mg PO DAILYCM #30 cap 05/30/18 [Ferrex 150] Mupirocin [Bactroban] 1 applic TOPICAL .QDAILY #2 tube 05/30/18 Smz/Tmp Ds [Bactrim Ds] 1 tab PO BIDCM #28 tab 05/30/18 gabapentin 300 mg capsule 1,800 mg PO BID #360 cap 06/28/18 Maternal Family History: Family History (Last Reviewed 05/27/18 @ 13:57 by Alton Kingsley DO) Other CVA (cerebral vascular accident) Cancer Heart disease Family History: Cancer, Diabetes, Heart Disease, Renal Disease Paternal Family History: Family History (Last Reviewed 05/27/18 @ 13:57 by Alton Kingsley DO) Other CVA (cerebral vascular accident) Cancer Heart disease Family History: Cancer Smoking Status: Former smoker Physical Exam Vital Signs Temp Pulse Resp BP 97.1 F L 94 18 121/54 H 06/29/18 01:17 06/29/18 01:17 06/29/18 01:17 06/29/18 01:17 General: Alert, Oriented x3, Cooperative HEENT: Atraumatic, TM's Clear Lungs: Clear to auscultation, Normal air movement Cardiovascular: Regular rate, Regular Rhythm Psych/Mental Status: Normal Affect, Appropriate, Alert and oriented to time, place, person, mood and affect Assessment/Plan The patient appears to be tolerating hyperbaric oxygen therapy well, which will be continued as per the patient's medical plan.
[2018-07-03 10:49] VITALS: BP 90/53; BP 99/63; PULSE 64; PULSE 90; RESP 18; TEMP 36.3; TEMP 36.5
[2018-07-04 08:19] VITALS: BP 111/77; BP 126/79; PULSE 78; PULSE 90; RESP 16; RESP 18; TEMP 36.3; TEMP 36.7
--- NOTE | 2018-07-04 08:40 | HBO.PN.PCM_ITS ---
History of Present Illness Date of Service: 07/04/18 Presenting Chief Complaint: Nonhealing ulcer left BKA stump with recent surgical closure 05/25/18 and mild skin graft/flap compromise. JANIE CHIN is a 52 year old currently undergoing hyperbaric oxygen therapy for compromised graft/flap of the left BKA. Progress: Today is the 2nd session of hyperbaric oxygen therapy. Tolerance of hyperbaric oxygen therapy: Hyperbaric oxygen therapy was administered as per the facility's protocol. The patient tolerated hyperbaric oxygen therapy well, without complaints or complications. Upon emergence from the hyperbaric chamber, the patient's vital signs remained stable. He was discharged in good condition. 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) Patient is on Coumadin for PE Chronic osteomyelitis of left tibia (Chronic) chronic osteomyelitis left tibia at BKA stump 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) Pain of amputation stump of left lower extremity (Chronic) Dermatitis (Chronic) CAD (coronary artery disease) (Chronic) Osteomyelitis of left lower extremity (Chronic) Pain of left anterior lower extremity (Chronic) Amputation, traumatic, leg (Chronic) HTN (hypertension) (Chronic) Hypertension (Chronic) Peripheral arterial disease (Chronic) SVT (supraventricular tachycardia) (Chronic) Hypercoagulable state (Chronic) Wound, surgical, nonhealing (Chronic) Ischemic ulcer of right foot (Chronic) Allergies/Adverse Reactions: Allergies Penicillins Allergy (Verified 06/25/18 09:29) Swelling adhesive tape Adverse Reaction (Verified 06/25/18 09:29) Rash Home Medications: Ambulatory Orders Medication Instructions Recorded Atorvastatin Calcium [Lipitor] 40 mg PO QHS 04/03/18 Carvedilol 12.5 mg PO DAILY 04/03/18 Lisinopril 20 mg PO DAILY 04/03/18 Cyclobenzaprine [Flexeril] 10 mg PO TID tablet 04/12/18 Zolpidem Tartrate [Ambien] 5 mg PO QHS PRN PRN tablet 04/12/18 Apixaban [Eliquis] 5 mg PO BID #60 tab 05/28/18 Diazepam [Valium] 5 mg PO 4X/DAY PRN #30 tab 05/30/18 Docusate Sodium [Colace] 100 mg PO BID #60 cap 05/30/18 Iron Polysaccharide Complex 150 mg PO DAILYCM #30 cap 05/30/18 [Ferrex 150] Mupirocin [Bactroban] 1 applic TOPICAL .QDAILY #2 tube 05/30/18 Smz/Tmp Ds [Bactrim Ds] 1 tab PO BIDCM #28 tab 05/30/18 gabapentin 300 mg capsule 1,800 mg PO BID #360 cap 06/28/18 Maternal Family History: Family History (Last Reviewed 05/27/18 @ 13:57 by Alton Kingsley DO) Other CVA (cerebral vascular accident) Cancer Heart disease Family History: Cancer, Diabetes, Heart Disease, Renal Disease Paternal Family History: Family History (Last Reviewed 05/27/18 @ 13:57 by Alton Kingsley DO) Other CVA (cerebral vascular accident) Cancer Heart disease Family History: Cancer Smoking Status: Former smoker Physical Exam Vital Signs Temp Pulse Resp BP 98.1 F 90 18 111/77 07/04/18 08:19 07/04/18 08:19 07/04/18 08:19 07/04/18 08:19 General: Alert, Oriented x3, Cooperative HEENT: Atraumatic, TM's Clear Lungs: Clear to auscultation, Normal air movement Cardiovascular: Regular rate, Regular Rhythm Psych/Mental Status: Normal Affect, Appropriate, Alert and oriented to time, place, person, mood and affect Assessment/Plan The patient appears to be tolerating hyperbaric oxygen therapy well, which will be continued as per the patient's medical plan.
[2018-07-05 08:20] VITALS: BP 130/87; BP 143/97; PULSE 80; PULSE 86; RESP 16; RESP 18; TEMP 36.3; TEMP 36.4
--- NOTE | 2018-07-05 08:26 | PCM.HBO.PN ---
History of Present Illness Date of Service: 07/05/18 Presenting Chief Complaint: Nonhealing ulcer left BKA stump with recent surgical closure 05/25/18 and mild skin graft/flap compromise. JANIE CHIN is a 52 year old currently undergoing hyperbaric oxygen therapy for compromised graft/flap of the left BKA. Progress: Today is the 3rd session of hyperbaric oxygen therapy. Tolerance of hyperbaric oxygen therapy: Hyperbaric oxygen therapy was administered as per the facility's protocol. The patient tolerated hyperbaric oxygen therapy well, without complaints or complications. Upon emergence from the hyperbaric chamber, the patient's vital signs remained stable. He was discharged in good condition. 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 (Chronic) detention current use of 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 (Chronic) Patient is on Coumadin for PE Chronic osteomyelitis of left tibia (Chronic) chronic osteomyelitis left tibia at BKA stump 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) Pain of amputation stump of left lower extremity (Chronic) Dermatitis (Chronic) CAD (coronary artery disease) (Chronic) Osteomyelitis of left lower extremity (Chronic) Pain of left anterior lower extremity (Chronic) Amputation, traumatic, leg (Chronic) HTN (hypertension) (Chronic) Hypertension (Chronic) Peripheral arterial disease (Chronic) SVT (supraventricular tachycardia) (Chronic) Hypercoagulable state (Chronic) Wound, surgical, nonhealing (Chronic) Ischemic ulcer of right foot (Chronic) Allergies/Adverse Reactions: Allergies Penicillins Allergy (Verified 06/25/18 09:29) Swelling adhesive tape Adverse Reaction (Verified 06/25/18 09:29) Rash Home Medications: Ambulatory Orders Medication Instructions Recorded Atorvastatin Calcium [Lipitor] 40 mg PO QHS 04/03/18 Carvedilol 12.5 mg PO DAILY 04/03/18 Lisinopril 20 mg PO DAILY 04/03/18 Cyclobenzaprine [Flexeril] 10 mg PO TID tablet 04/12/18 Zolpidem Tartrate [Ambien] 5 mg PO QHS PRN PRN tablet 04/12/18 Apixaban [Eliquis] 5 mg PO BID #60 tab 05/28/18 Diazepam [Valium] 5 mg PO 4X/DAY PRN #30 tab 05/30/18 Docusate Sodium [Colace] 100 mg PO BID #60 cap 05/30/18 Iron Polysaccharide Complex 150 mg PO DAILYCM #30 cap 05/30/18 [Ferrex 150] Mupirocin [Bactroban] 1 applic TOPICAL .QDAILY #2 tube 05/30/18 Smz/Tmp Ds [Bactrim Ds] 1 tab PO BIDCM #28 tab 05/30/18 gabapentin 300 mg capsule 1,800 mg PO BID #360 cap 06/28/18 Maternal Family History: Family History (Last Reviewed 05/27/18 @ 13:57 by Alton Kingsley DO) Other CVA (cerebral vascular accident) Cancer Heart disease Family History: Cancer, Diabetes, Heart Disease, Renal Disease Paternal Family History: Family History (Last Reviewed 05/27/18 @ 13:57 by Alton Kingsley DO) Other CVA (cerebral vascular accident) Cancer Heart disease Family History: Cancer Smoking Status: Former smoker Physical Exam Vital Signs Temp Pulse Resp BP 97.5 F L 80 18 143/97 H 07/05/18 08:20 07/05/18 08:20 07/05/18 08:20 07/05/18 08:20 General: Alert, Oriented x3, Cooperative HEENT: Atraumatic, TM's Clear Lungs: Clear to auscultation, Normal air movement Cardiovascular: Regular rate, Regular Rhythm Psych/Mental Status: Normal Affect, Appropriate, Alert and oriented to time, place, person, mood and affect Assessment/Plan The patient appears to be tolerating hyperbaric oxygen therapy well, which will be continued as per the patient's medical plan.
[2018-07-06 09:18] VITALS: BP 109/74; BP 99/66; PULSE 73; PULSE 99; RESP 16; RESP 18; TEMP 36.1; TEMP 36.3
--- NOTE | 2018-07-06 10:04 | PCM.HBO.PN ---
History of Present Illness Presenting Chief Complaint: Nonhealing ulcer left BKA stump with recent surgical closure 05/25/18 and mild skin graft/flap compromise. JANIE CHIN is a 52 year old currently undergoing hyperbaric oxygen therapy for compromised graft/flap of the left BKA. Progress: Today is the 4th session of hyperbaric oxygen therapy. Tolerance of hyperbaric oxygen therapy: Hyperbaric oxygen therapy was administered as per the facility's protocol. The patient tolerated hyperbaric oxygen therapy well, without complaints or complications. Upon emergence from the hyperbaric chamber, the patient's vital signs remained stable. He was discharged in good condition. 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) Patient is on Coumadin for PE Chronic osteomyelitis of left tibia (Chronic) chronic osteomyelitis left tibia at BKA stump 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) Pain of amputation stump of left lower extremity (Chronic) Dermatitis (Chronic) CAD (coronary artery disease) (Chronic) Osteomyelitis of left lower extremity (Chronic) Pain of left anterior lower extremity (Chronic) Amputation, traumatic, leg (Chronic) HTN (hypertension) (Chronic) Hypertension (Chronic) Peripheral arterial disease (Chronic) SVT (supraventricular tachycardia) (Chronic) Hypercoagulable state (Chronic) Wound, surgical, nonhealing (Chronic) Ischemic ulcer of right foot (Chronic) Allergies/Adverse Reactions: Allergies Penicillins Allergy (Verified 06/25/18 09:29) Swelling adhesive tape Adverse Reaction (Verified 06/25/18 09:29) Rash Home Medications: Ambulatory Orders Medication Instructions Recorded Atorvastatin Calcium [Lipitor] 40 mg PO QHS 04/03/18 Carvedilol 12.5 mg PO DAILY 04/03/18 Lisinopril 20 mg PO DAILY 04/03/18 Cyclobenzaprine [Flexeril] 10 mg PO TID tablet 04/12/18 Zolpidem Tartrate [Ambien] 5 mg PO QHS PRN PRN tablet 04/12/18 Apixaban [Eliquis] 5 mg PO BID #60 tab 05/28/18 Diazepam [Valium] 5 mg PO 4X/DAY PRN #30 tab 05/30/18 Docusate Sodium [Colace] 100 mg PO BID #60 cap 05/30/18 Iron Polysaccharide Complex 150 mg PO DAILYCM #30 cap 05/30/18 [Ferrex 150] Mupirocin [Bactroban] 1 applic TOPICAL .QDAILY #2 tube 05/30/18 Smz/Tmp Ds [Bactrim Ds] 1 tab PO BIDCM #28 tab 05/30/18 gabapentin 300 mg capsule 1,800 mg PO BID #360 cap 06/28/18 Maternal Family History: Family History (Last Reviewed 05/27/18 @ 13:57 by Alton Kingsley DO) Other CVA (cerebral vascular accident) Cancer Heart disease Family History: Cancer, Diabetes, Heart Disease, Renal Disease Paternal Family History: Family History (Last Reviewed 05/27/18 @ 13:57 by Alton Kingsley DO) Other CVA (cerebral vascular accident) Cancer Heart disease Family History: Cancer Smoking Status: Former smoker Physical Exam Vital Signs Temp Pulse Resp BP 97.4 F L 99 18 109/74 07/06/18 09:18 07/06/18 09:18 07/06/18 09:18 07/06/18 09:18 Assessment/Plan The patient appears to be tolerating hyperbaric oxygen therapy well, which will be continued as per the patient's medical plan.
== END 2018-07-26 23:59 ==
LOC: WC 08:00
PROVIDERS: Family Provider Internal Medicine; PCP Internal Medicine; Visit Provider Surgery
DX: T81.30XA Disruption of wound, unspecified, initial encounter (principal); Y83.8 Other surgical procedures as the cause of abnormal reaction of the patient, or of later complication, without mention of misadventure at the time of the procedure; Z86.14 Personal history of Methicillin resistant Staphylococcus aureus infection; M79.89 Other specified soft tissue disorders; Z89.512 Acquired absence of left leg below knee; Z86.711 Personal history of pulmonary embolism; Z86.718 Personal history of other venous thrombosis and embolism; I10 Essential (primary) hypertension; Z87.891 Personal history of nicotine dependence; I25.10 Atherosclerotic heart disease of native coronary artery without angina pectoris; I73.9 Peripheral vascular disease, unspecified; Z79.899 Other long term (current) drug therapy; Z79.01 Long term (current) use of 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s; T86.828 Other complications of skin graft (allograft) (autograft)
CPT/HCPCS: 11042; 11045; 80048; 99183; G0277

== ENCOUNTER 2018-07-26 08:00 | Outpatient (RCR) | payer OTHER, SELFPAY ==
[2018-06-25 09:29] VITALS: BMI 24.5
[2018-07-02 08:11] VITALS: BP 98/69; PULSE 108; RESP 18; TEMP 36.6; BMI 24.5
--- NOTE | 2018-07-02 09:55 | PN.PCM_ITS ---
Type of Wound Date of Service: 07/02/18 Chief Complaint: Nonhealing ulcer left BKA stump with recent surgical closure 05/25/18 and mild skin graft/flap compromise. History of Wound: Surgery 05/25/18 - 1. Surgical preparation left BKA stump with excisional debridement nonhealing infected ulcer. 2. Complex secondary wound closure revision reconstruction with re-advancement muscle flap and bipedicle anterior leg fasciocutaneous advancement flap and STSG from the left flank (60 cm2). Surgery 04/05/18 - 1. Surgical preparation left BKA stump with incision and drainage and excisional debridement nonhealing infected ulcer. 2. Partial ostectomy tibia for osteomyelitis. Wound care - Silver. Operative culture - MRSA. Soft tissue from 04/05/18 surgery - negative. Bone from 04/05/18 surgery - negative. Pathology from 04/05/18 surgery - negative for ostemyelitis. He was discharged on Bactrim DS. Initially perioperatively he was on Vancomycin. His Creatinine increased to 1.70 and the Vancomycin was stopped. At discharge his Creatinine had decreased to 1.49. He had Creatinine rechecked on 06/29/18 whichw as 1.96. He had another wound culture done on 06/18/18 which showed Pseudomonas aeroginosa. He was placed on Levaquin in addition to the Bactrim DS. Prealbumin from 05/26/18 was 17.5. Encourage nutritional supplementation with protein to help the healing process. MRI left BKA stump in 10/13 showed osteomyelitis. He changed his anticoagulation medication and stopped the Coumadin and started Eliquis. Today he denies fever. His appetite is good. With his early compromise to the skin graft/flap, he is also being evaluated for HBO treatments to help salvage the compromised graft/flap. Progress of Wound: Surgery 05/25/18 with mild skin graft/flap compromise. - Physical Exam Vital Signs Temp Pulse Resp BP 97.8 F 108 H 18 98/69 07/02/18 08:11 07/02/18 08:11 07/02/18 08:11 07/02/18 08:11 Skin: Incision - The skin graft shows good adherence and about 90% take and good vascular ingrowth. There is some mild compromise at the edges of the skin graft (about 10% compromise). The stump incision is dry and intact and healing. The stump is soft with mild swelling that is resolving. The central aspect of the stump flap anteriorly shows some mild early compromise with dry eschar (about 10% compromise). With the presence of compromise, the patient will bene fit from HBO treatments to help salvage the compromised graft/flap. Wound Measurements and Assessment WC - Nurse 1 - General Ulcer Measurement Start: 07/02/18 08:11 Freq: Status: Active Protocol: Activity Type Activity Date Activity User E-Sign Co-Sign Detail Recorded Client Recorded Date Recorded By Document 07/02/18 08:11 [id number] 07/02/18 08:14 07/02/18 08:11 Wound Center Nurse 1 [Ulcer Assessment] #5 L BKA stump -Combined with other wound No -Current Size (cm) - Length 10.5 -Current Size (cm) - Width 8.4 -Current Size (cm) - Depth 0.6 -Total Square Cm 88.20 -Photo Taken No -Epithelialization None Present -Tunneling No -Undermining/Tunneling No -Circular Undermining No -Exudate Amt Medium -Exudate Type Serosanguineous -Wound Margin Flat & Intact -Granulation Amt Small (1-33%) -Granulation Quality Pale -Slough/Fibrin Yes -Necrosis Amt Large (67-100%) -Necrotic Tissue Type Adherent Slough -Structure Exposed N/A -Texture (Ami-wound Skin Appearance) Assessed Localized Edema -Moisture (Ami-wound Skin Appearance Assessed ) Dry/Scaly -Color (Ami-wound Skin Appearance) Assessed -Temperature (Ami-wound Skin No Abnormality Appearance) (Pt Warm) -Tenderness on Palpation (Ami-wound No Skin Appearance) -Ulcer Cleansing Rinsed/ Irrigated with Saline -Foul Odor after Cleansing No -Anesthetic Used 4% Lidocaine Solution [Edema Assessment] -Lower Limb Edema Present NA WC - Nurse 2 - General Ulcer CM Notes Start: 07/02/18 08:11 Freq: Status: Active Protocol: Activity Type Activity Date Activity User E-Sign Co-Sign Detail Recorded Client Recorded Date Recorded By Document 07/02/18 08:23 [id number] 07/02/18 08:28 07/02/18 08:23 Wound Center Nurse 2 [Procedure/Treatment] #5 L BKA stump -Time 08:26 -Correct Patient Yes -Correct Side, Site, Position Yes -Correct Procedure Yes -Procedure Performed Yes -Type of Procedure Debridement -Clinical Debridement Subcutaneous -Post Debridement Size (cm) - Length 10.5 -Post Debridement Size (cm) - Width 8.5 -Post Debridement Size (cm) - Depth 0.6 -Total Square Cm 89.25 -Wound/Ulcer Outcome Not Healed -Ulcer Cleansing Rinsed/ Irrigated with Saline -Foul Odor after Cleansing No -Bioengineered Tissue No -Bleeding Controlled with Pressure -Offloading No -Treatment Response Procedure Tolerated Well [See Physician Procedure note for Specifics] Pain Scale: 0-10 Numeric [Pain] -Is Patient Pain Free? Yes Debridement Note Post-Debridement Measurements/Treatment WC - Nurse 2 - General Ulcer CM Notes Start: 07/02/18 08:11 Freq: Status: Active Protocol: Activity Type Activity Date Activity User E-Sign Co-Sign Detail Recorded Client Recorded Date Recorded By Document 07/02/18 08:23 [email or web address] [id number] 07/02/18 08:28 FLAVIA 07/02/18 08:23 Wound Center Nurse 2 #5 L BKA stump -Time 08:26 -Correct Patient Yes -Correct Side, Site, Position Yes -Correct Procedure Yes -Procedure Performed Yes -Type of Procedure Debridement -Clinical Debridement Subcutaneous -Post Debridement Size (cm) - Length 10.5 -Post Debridement Size (cm) - Width 8.5 -Post Debridement Size (cm) - Depth 0.6 -Total Square Cm 89.25 -Wound/Ulcer Outcome Not Healed -Ulcer Cleansing Rinsed/ Irrigated with Saline -Foul Odor after Cleansing No -Bioengineered Tissue No -Bleeding Controlled with Pressure -Offloading No -Treatment Response Procedure Tolerated Well Pain Scale: 0-10 Numeric Is Patient Pain Free? Yes Wound debrided: #5 Left BKA stump. Laterality: Left Wound Grade/Stage: 4. Type of Debridement: Excisional debridement Anesthesia Used: 4% Lidocaine Solution Depth: Down to and including healthy tissue, in the subcutaneous layer Percentage of wound debrided: 100 Instrument Used: 5mm curette, - - scissors. Tissue Removed: subcutaneous tissue. Severity: Fat Layer Exposed Amount of bleeding with debridement: Mild Bleeding Controlled with: Pressure Patient tolerated procedure well Assessment/Plan Assessment: 1. Nonhealing ulcer left BKA stump with recent surgical closure 05/25/18. 2. Pain left BKA stump. 3. MRSA. 4. 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 5. 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 7. Early skin graft/flap compromise left BKA stump, (20% compromise). 8. s/p surgical preparation left BKA stump with excisional debridement nonhealing infected ulcer and complex secondary wound closure revision reconstruction with re-advancement muscle flap and bipedicle anterior leg fasciocutaneous advancement flap and STSG from the left flank (60 cm2). 9. JUAN (acute kidney injury), probable medication related. Plan: Continue Bactrim DS for MRSA and Levaquin for Pseudomonas aeroginosa. The skin graft shows good adherence and about 90% take and good vascular ingrowth. There is some mild compromise at the edges of the skin graft (about 10% compromise). Less moisture present. The stump incision is dry and intact and healing. The stump is soft with mild swelling that is resolving. The central aspect of the stump anteriorly shows some mild compromise. After debridement, the underlying subcutaneous tissue appears viable. With the mild skin graft/flap compromise (about 20% total), he is a candidate for HBO therapy and would benefit from HBO treatments which would help salvage the compromised graft/flap. He had a CXR done on 04/03/18 which showed no acute pulmonary process. Prealbumin from the hospital was 17.5. Encourage nutritional supplementation with protein to help the healing process. His recent Creatinine from 06/29/18 was 1.96. Encourage hydration. He needs to followup with his PCP for further evaluation. He may need Nephrology evaluation. After his last surgery in April, he had been on Vancomycin for a day which was stopped when his Creatinine increased to 1.70. It then decreased down to 1.49 before increasing back up to 1.96. Renewed his Percocet for pain (30 tabs) and his Valium for spasm (30 tabs). HBO approval in process. Discussed with the patient that the presence of MRSA and Pseudomonas can be destructive to the surrounding tissue leading to suboptimal healing. Followup one week. He was tentatively scheduled to return to work on 06/29/18. Will postpone that until 07/27/18 (tentative).
[2018-07-09 08:24] VITALS: BP 126/63; PULSE 81; RESP 16; TEMP 36.2; BMI 24.5
--- NOTE | 2018-07-09 20:46 | PCM.WC.PN ---
Type of Wound Date of Service: 07/09/18 Chief Complaint: Nonhealing ulcer left BKA stump with recent surgical closure 05/25/18 and mild skin graft/flap compromise. History of Wound: Surgery 05/25/18 - 1. Surgical preparation left BKA stump with excisional debridement nonhealing infected ulcer. 2. Complex secondary wound closure revision reconstruction with re-advancement muscle flap and bipedicle anterior leg fasciocutaneous advancement flap and STSG from the left flank (60 cm2). Surgery 04/05/18 - 1. Surgical preparation left BKA stump with incision and drainage and excisional debridement nonhealing infected ulcer. 2. Partial ostectomy tibia for osteomyelitis. Wound care - Silver. Operative culture - MRSA. Soft tissue from 04/05/18 surgery - negative. Bone from 04/05/18 surgery - negative. Pathology from 04/05/18 surgery - negative for ostemyelitis. He was discharged on Bactrim DS. Initially perioperatively he was on Vancomycin. His Creatinine increased to 1.70 and the Vancomycin was stopped. At discharge his Creatinine had decreased to 1.49. He had Creatinine rechecked on 06/29/18 which was 1.96. He had another wound culture done on 06/18/18 which showed Pseudomonas aeroginosa. He was placed on Levaquin in addition to the Bactrim DS. Prealbumin from 05/26/18 was 17.5. Encourage nutritional supplementation with protein to help the healing process. MRI left BKA stump in 10/13 showed osteomyelitis. He changed his anticoagulation medication and stopped the Coumadin and started Eliquis. Today he denies fever. His appetite is good. With his early compromise to the skin graft/flap, he has started HBO treatments to help salvage the compromised graft/flap and is tolerating them thus far. Progress of Wound: Surgery 05/25/18 with mild skin graft/flap compromise. - Physical Exam Vital Signs Temp Pulse Resp BP 97.1 F L 81 16 126/63 H 07/09/18 08:24 07/09/18 08:24 07/09/18 08:24 07/09/18 08:24 Wound Measurements and Assessment WC - Nurse 1 - General Ulcer Measurement Start: 07/02/18 08:11 Freq: Status: Active Protocol: Activity Type Activity Date Activity User E-Sign Co-Sign Detail Recorded Client Recorded Date Recorded By Document 07/09/18 08:24 MW [id number] 07/09/18 08:28 MW 07/09/18 08:24 Wound Center Nurse 1 [Ulcer Assessment] #5 L BKA stump -Combined with other wound No -Current Size (cm) - Length 3.0 -Current Size (cm) - Width 9.0 -Current Size (cm) - Depth 0.1 -Total Square Cm 27.00 -Photo Taken No -Epithelialization Medium 34-66% -Tunneling No -Undermining/Tunneling No -Circular Undermining No -Exudate Amt Small -Exudate Type Serosanguineous -Wound Margin Flat & Intact -Granulation Amt Small (1-33%) -Granulation Quality [place] -Slough/Fibrin Yes -Necrosis Amt Large (67-100%) -Necrotic Tissue Type Adherent Slough -Structure Exposed N/A -Texture (Ami-wound Skin Appearance) No Abnormality Localized Edema Scarring -Moisture (Ami-wound Skin Appearance Assessed ) Dry/Scaly -Color (Ami-wound Skin Appearance) No Abnormality Assessed -Temperature (Ami-wound Skin No Abnormality Appearance) (Pt Warm) -Tenderness on Palpation (Ami-wound No Skin Appearance) -Ulcer Cleansing Rinsed/ Irrigated with Saline -Foul Odor after Cleansing No -Anesthetic Used 4% Lidocaine Solution [Edema Assessment] -Lower Limb Edema Present No WC - Nurse 2 - General Ulcer CM Notes Start: 07/02/18 08:11 Freq: Status: Active Protocol: Activity Type Activity Date Activity User E-Sign Co-Sign Detail Recorded Client Recorded Date Recorded By Document 07/09/18 08:39 [id number] 07/09/18 08:40 07/09/18 08:39 Wound Center Nurse 2 [Procedure/Treatment] #5 L BKA stump -Time 08:39 -Correct Patient Yes -Correct Side, Site, Position Yes -Correct Procedure Yes -Procedure Performed Yes -Type of Procedure Debridement -Clinical Debridement Subcutaneous -Post Debridement Size (cm) - Length 3.1 -Post Debridement Size (cm) - Width 9.1 -Post Debridement Size (cm) - Depth 0.2 -Total Square Cm 28.21 -Wound/Ulcer Outcome Not Healed -Ulcer Cleansing Rinsed/ Irrigated with Saline -Foul Odor after Cleansing No -Bioengineered Tissue No -Bleeding Controlled with Pressure -Offloading No -Treatment Response Procedure Tolerated Well [See Physician Procedure note for Specifics] Pain Scale: 0-10 Numeric [Pain] -Is Patient Pain Free? Yes Debridement Note Post-Debridement Measurements/Treatment WC - Nurse 2 - General Ulcer CM Notes Start: 07/02/18 08:11 Freq: Status: Active Protocol: Activity Type Activity Date Activity User E-Sign Co-Sign Detail Recorded Client Recorded Date Recorded By Document 07/02/18 08:23 [id number] 07/02/18 08:28 Document 07/09/18 08:39 [id number] 07/09/18 08:40 07/02/18 07/09/18 08:23 08:39 Wound Center Nurse 2 #5 L BKA stump -Time 08:26 08:39 -Correct Patient Yes Yes -Correct Side, Site, Position Yes Yes -Correct Procedure Yes Yes -Procedure Performed Yes Yes -Type of Procedure Debridement Debridement -Clinical Debridement Subcutaneous Subcutaneous -Post Debridement Size (cm) - Length 10.5 3.1 -Post Debridement Size (cm) - Width 8.5 9.1 -Post Debridement Size (cm) - Depth 0.6 0.2 -Total Square Cm 89.25 28.21 -Wound/Ulcer Outcome Not Healed Not Healed -Ulcer Cleansing Rinsed/ Rinsed/ Irrigated with Irrigated with Saline Saline -Foul Odor after Cleansing No No -Bioengineered Tissue No No -Bleeding Controlled with Pressure Pressure -Offloading No No -Treatment Response Procedure Procedure Tolerated Well Tolerated Well Pain Scale: 0-10 Numeric Is Patient Pain Free? Yes Yes Wound debrided: #5 Left BKA stump. Laterality: Left Wound Grade/Stage: 4. Type of Debridement: Excisional debridement Anesthesia Used: 4% Lidocaine Solution Depth: Down to and including healthy tissue, in the subcutaneous layer Percentage of wound debrided: 100 Instrument Used: 5mm curette Tissue Removed: subcutaneous tissue. Severity: Fat Layer Exposed Amount of bleeding with debridement: Mild Bleeding Controlled with: Pressure Patient tolerated procedure well Assessment/Plan Assessment: 1. Nonhealing ulcer left BKA stump with recent surgical closure 05/25/18. 2. Pain left BKA stump. 3. MRSA. 4. 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 5. 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 7. Early skin graft/flap compromise left BKA stump, (20% compromise). 8. s/p surgical preparation left BKA stump with excisional debridement nonhealing infected ulcer and complex secondary wound closure revision reconstruction with re-advancement muscle flap and bipedicle anterior leg fasciocutaneous advancement flap and STSG from the left flank (60 cm2). 9. JUAN (acute kidney injury), probable medication related. Plan: Continue Bactrim DS for MRSA and Levaquin for Pseudomonas aeroginosa. The skin graft shows good adherence and about 90% take and good vascular ingrowth. There is some mild compromise at the edges of the skin graft (about 10% compromise). Less moisture present. The stump incision shows some superficial wound separation. The stump is soft with mild swelling that is resolving. The central aspect of the stump anteriorly shows some mild compromise. After debridement, the underlying subcutaneous tissue appears viable. With the mild skin graft/flap compromise (about 20% total), he started HBO treatments which would help salvage the compromised graft/flap. He had a CXR done on 04/03/18 which showed no acute pulmonary process. Prealbumin from the hospital was 17.5. Encourage nutritional supplementation with protein to help the healing process. His recent Creatinine from 06/29/18 was 1.96. Encourage hydration. He needs to followup with his PCP for further evaluation. He may need Nephrology evaluation. After his last surgery in April, he had been on Vancomycin for a day which was stopped when his Creatinine increased to 1.70. It then decreased down to 1.49 before increasing back up to 1.96. He states he wants to return to work next 07/16/18. He has enough pain medication before that. Discussed with the patient that the presence of MRSA and Pseudomonas can be destructive to the surrounding tissue leading to suboptimal healing. Followup one week.
[2018-07-10 10:10] VITALS: BP 87/55; BP 96/63; PULSE 63; PULSE 94; RESP 18; TEMP 36.4; TEMP 36.6
--- NOTE | 2018-07-10 12:12 | PCM.HBO.PN ---
History of Present Illness Presenting Chief Complaint: Nonhealing ulcer left BKA stump with recent surgical closure 05/25/18 and mild skin graft/flap compromise. JANIE CHIN is a 52 year old currently undergoing hyperbaric oxygen therapy for nonhealing ulcer left BKA stump with recent surgical closure 05/25/18 and mild skin graft/flap compromise. Progress: Today's session represents the 5th such session of hyperbaric oxygen therapy. The patient appears to be tolerating HBO therapy well. Tolerance of hyperbaric oxygen therapy: Hyperbaric oxygen therapy was administered as per the facility's protocol. The patient tolerated hyperbaric oxygen therapy well, without complaints or complications. Upon emergence from the hyperbaric chamber, the patient's vital signs remained stable. He was discharged in good condition. 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) Patient is on Coumadin for PE Chronic osteomyelitis of left tibia (Chronic) chronic osteomyelitis left tibia at BKA stump 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) Pain of amputation stump of left lower extremity (Chronic) Dermatitis (Chronic) CAD (coronary artery disease) (Chronic) Osteomyelitis of left lower extremity (Chronic) Pain of left anterior lower extremity (Chronic) Amputation, traumatic, leg (Chronic) HTN (hypertension) (Chronic) Hypertension (Chronic) Peripheral arterial disease (Chronic) SVT (supraventricular tachycardia) (Chronic) Hypercoagulable state (Chronic) Wound, surgical, nonhealing (Chronic) Ischemic ulcer of right foot (Chronic) Allergies/Adverse Reactions: Allergies Penicillins Allergy (Verified 06/25/18 09:29) Swelling adhesive tape Adverse Reaction (Verified 06/25/18 09:29) Rash Home Medications: Ambulatory Orders Medication Instructions Recorded Atorvastatin Calcium [Lipitor] 40 mg PO QHS 04/03/18 Carvedilol 12.5 mg PO DAILY 04/03/18 Lisinopril 20 mg PO DAILY 04/03/18 Cyclobenzaprine [Flexeril] 10 mg PO TID tablet 04/12/18 Zolpidem Tartrate [Ambien] 5 mg PO QHS PRN PRN tablet 04/12/18 Apixaban [Eliquis] 5 mg PO BID #60 tab 05/28/18 Diazepam [Valium] 5 mg PO 4X/DAY PRN #30 tab 05/30/18 Docusate Sodium [Colace] 100 mg PO BID #60 cap 05/30/18 Iron Polysaccharide Complex 150 mg PO DAILYCM #30 cap 05/30/18 [Ferrex 150] Mupirocin [Bactroban] 1 applic TOPICAL .QDAILY #2 tube 05/30/18 Smz/Tmp Ds [Bactrim Ds] 1 tab PO BIDCM #28 tab 05/30/18 gabapentin 300 mg capsule 1,800 mg PO BID #360 cap 06/28/18 Maternal Family History: Family History (Last Reviewed 05/27/18 @ 13:57 by Alton Kingsley DO) Other CVA (cerebral vascular accident) Cancer Heart disease Family History: Cancer, Diabetes, Heart Disease, Renal Disease Paternal Family History: Family History (Last Reviewed 05/27/18 @ 13:57 by Alton Kingsley DO) Other CVA (cerebral vascular accident) Cancer Heart disease Family History: Cancer Smoking Status: Former smoker Physical Exam Vital Signs Temp Pulse Resp BP 97.9 F 94 18 96/63 07/10/18 10:10 07/10/18 10:10 07/10/18 10:10 07/10/18 10:10 General: Alert, Oriented x3, Cooperative, No apparent distress HEENT: Atraumatic, PERRLA, EOMI, Normocephalic Lungs: Normal air movement Psych/Mental Status: Normal Affect, Appropriate, Alert and oriented to time, place, person, mood and affect Assessment/Plan The patient appears to be tolerating hyperbaric oxygen therapy well, which will be continued as per the patient's medical plan.
[2018-07-11 15:10] VITALS: BP 109/68; BP 116/70; PULSE 90; PULSE 96; RESP 16; RESP 18; TEMP 36.1; TEMP 36.2
--- NOTE | 2018-07-11 16:02 | PCM.HBO.PN ---
History of Present Illness Date of Service: 07/11/18 Presenting Chief Complaint: Nonhealing ulcer left BKA stump with recent surgical closure 05/25/18 and mild skin graft/flap compromise. JANIE CHIN is a 52 year old currently undergoing hyperbaric oxygen therapy for nonhealing ulcer left BKA stump with recent surgical closure 05/25/18 and mild skin graft/flap compromise. Progress: Today's session represents the 6th such session of hyperbaric oxygen therapy. The patient appears to be tolerating HBO therapy well. Tolerance of hyperbaric oxygen therapy: Hyperbaric oxygen therapy was administered as per the facility's protocol. The patient tolerated hyperbaric oxygen therapy well, without complaints or complications. Upon emergence from the hyperbaric chamber, the patient's vital signs remained stable. He was discharged in good condition. 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) Patient is on Coumadin for PE Chronic osteomyelitis of left tibia (Chronic) chronic osteomyelitis left tibia at BKA stump 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) Pain of amputation stump of left lower extremity (Chronic) Dermatitis (Chronic) CAD (coronary artery disease) (Chronic) Osteomyelitis of left lower extremity (Chronic) Pain of left anterior lower extremity (Chronic) Amputation, traumatic, leg (Chronic) HTN (hypertension) (Chronic) Hypertension (Chronic) Peripheral arterial disease (Chronic) SVT (supraventricular tachycardia) (Chronic) Hypercoagulable state (Chronic) Wound, surgical, nonhealing (Chronic) Ischemic ulcer of right foot (Chronic) Allergies/Adverse Reactions: Allergies Penicillins Allergy (Verified 06/25/18 09:29) Swelling adhesive tape Adverse Reaction (Verified 06/25/18 09:29) Rash Home Medications: Ambulatory Orders Medication Instructions Recorded Atorvastatin Calcium [Lipitor] 40 mg PO QHS 04/03/18 Carvedilol 12.5 mg PO DAILY 04/03/18 Lisinopril 20 mg PO DAILY 04/03/18 Cyclobenzaprine [Flexeril] 10 mg PO TID tablet 04/12/18 Zolpidem Tartrate [Ambien] 5 mg PO QHS PRN PRN tablet 04/12/18 Apixaban [Eliquis] 5 mg PO BID #60 tab 05/28/18 Diazepam [Valium] 5 mg PO 4X/DAY PRN #30 tab 05/30/18 Docusate Sodium [Colace] 100 mg PO BID #60 cap 05/30/18 Iron Polysaccharide Complex 150 mg PO DAILYCM #30 cap 05/30/18 [Ferrex 150] Mupirocin [Bactroban] 1 applic TOPICAL .QDAILY #2 tube 05/30/18 Smz/Tmp Ds [Bactrim Ds] 1 tab PO BIDCM #28 tab 05/30/18 gabapentin 300 mg capsule 1,800 mg PO BID #360 cap 06/28/18 Maternal Family History: Family History (Last Reviewed 05/27/18 @ 13:57 by Alton Kingsley DO) Other CVA (cerebral vascular accident) Cancer Heart disease Family History: Cancer, Diabetes, Heart Disease, Renal Disease Paternal Family History: Family History (Last Reviewed 05/27/18 @ 13:57 by Alton Kingsley DO) Other CVA (cerebral vascular accident) Cancer Heart disease Family History: Cancer Smoking Status: Former smoker Physical Exam Vital Signs Temp Pulse Resp BP 97.2 F L 96 18 109/68 07/11/18 15:10 07/11/18 15:10 07/11/18 15:10 07/11/18 15:10 General: Alert, Oriented x3, Cooperative, No apparent distress HEENT: Atraumatic, TM's Clear Lungs: Clear to auscultation, Normal air movement Cardiovascular: Regular rate, Regular Rhythm Psych/Mental Status: Normal Affect, Appropriate, Alert and oriented to time, place, person, mood and affect Assessment/Plan The patient appears to be tolerating hyperbaric oxygen therapy well, which will be continued as per the patient's medical plan.
[2018-07-12 08:12] VITALS: BP 79/52; BP 90/65; PULSE 108; PULSE 91; RESP 16; RESP 18; TEMP 36.2; TEMP 36.3
--- NOTE | 2018-07-12 08:22 | HBO.PN.PCM_ITS ---
History of Present Illness Date of Service: 07/12/18 Presenting Chief Complaint: Nonhealing ulcer left BKA stump with recent surgical closure 05/25/18 and mild skin graft/flap compromise. JANIE CHIN is a 52 year old currently undergoing hyperbaric oxygen therapy for nonhealing ulcer left BKA stump with recent surgical closure 05/25/18 and mild skin graft/flap compromise. Progress: Today's session represents the 7th such session of hyperbaric oxygen therapy. The patient appears to be tolerating HBO therapy well. Tolerance of hyperbaric oxygen therapy: Hyperbaric oxygen therapy was administered as per the facility's protocol. The patient tolerated hyperbaric oxygen therapy well, without complaints or complications. Upon emergence from the hyperbaric chamber, the patient's vital signs remained stable. He was discharged in good condition. 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) Patient is on Coumadin for PE Chronic osteomyelitis of left tibia (Chronic) chronic osteomyelitis left tibia at BKA stump 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) Pain of amputation stump of left lower extremity (Chronic) Dermatitis (Chronic) CAD (coronary artery disease) (Chronic) Osteomyelitis of left lower extremity (Chronic) Pain of left anterior lower extremity (Chronic) Amputation, traumatic, leg (Chronic) HTN (hypertension) (Chronic) Hypertension (Chronic) Peripheral arterial disease (Chronic) SVT (supraventricular tachycardia) (Chronic) Hypercoagulable state (Chronic) Wound, surgical, nonhealing (Chronic) Ischemic ulcer of right foot (Chronic) Allergies/Adverse Reactions: Allergies Penicillins Allergy (Verified 06/25/18 09:29) Swelling adhesive tape Adverse Reaction (Verified 06/25/18 09:29) Rash Home Medications: Ambulatory Orders Medication Instructions Recorded Atorvastatin Calcium [Lipitor] 40 mg PO QHS 04/03/18 Carvedilol 12.5 mg PO DAILY 04/03/18 Lisinopril 20 mg PO DAILY 04/03/18 Cyclobenzaprine [Flexeril] 10 mg PO TID tablet 04/12/18 Zolpidem Tartrate [Ambien] 5 mg PO QHS PRN PRN tablet 04/12/18 Apixaban [Eliquis] 5 mg PO BID #60 tab 05/28/18 Diazepam [Valium] 5 mg PO 4X/DAY PRN #30 tab 05/30/18 Docusate Sodium [Colace] 100 mg PO BID #60 cap 05/30/18 Iron Polysaccharide Complex 150 mg PO DAILYCM #30 cap 05/30/18 [Ferrex 150] Mupirocin [Bactroban] 1 applic TOPICAL .QDAILY #2 tube 05/30/18 Smz/Tmp Ds [Bactrim Ds] 1 tab PO BIDCM #28 tab 05/30/18 gabapentin 300 mg capsule 1,800 mg PO BID #360 cap 06/28/18 Maternal Family History: Family History (Last Reviewed 05/27/18 @ 13:57 by Alton Kingsley DO) Other CVA (cerebral vascular accident) Cancer Heart disease Family History: Cancer, Diabetes, Heart Disease, Renal Disease Paternal Family History: Family History (Last Reviewed 05/27/18 @ 13:57 by Alton Kingsley DO) Other CVA (cerebral vascular accident) Cancer Heart disease Family History: Cancer Smoking Status: Former smoker Physical Exam Vital Signs Temp Pulse Resp BP 97.2 F L 108 H 16 90/65 07/12/18 08:12 07/12/18 08:12 07/12/18 08:12 07/12/18 08:12 General: Alert, Oriented x3, Cooperative, No apparent distress HEENT: Atraumatic, TM's Clear Lungs: Clear to auscultation, Normal air movement Cardiovascular: Regular rate, Regular Rhythm Psych/Mental Status: Normal Affect, Appropriate, Alert and oriented to time, place, person, mood and affect Assessment/Plan The patient appears to be tolerating hyperbaric oxygen therapy well, which will be continued as per the patient's medical plan.
[2018-07-13 08:56] VITALS: BP 101/66; BP 92/61; PULSE 102; PULSE 75; RESP 16; TEMP 36.5; TEMP 36.6
--- NOTE | 2018-07-13 10:12 | HBO.PN.PCM_ITS ---
History of Present Illness Presenting Chief Complaint: Nonhealing ulcer left BKA stump with recent surgical closure 05/25/18 and mild skin graft/flap compromise. JANIE CHIN is a 52 year old currently undergoing hyperbaric oxygen therapy for nonhealing ulcer left BKA stump with recent surgical closure 05/25/18 and mild skin graft/flap compromise. Progress: Today's session represents the 7th such session of hyperbaric oxygen therapy. The patient appears to be tolerating HBO therapy well. Tolerance of hyperbaric oxygen therapy: Hyperbaric oxygen therapy was administered as per the facility's protocol. The patient tolerated hyperbaric oxygen therapy well, without complaints or complications. Upon emergence from the hyperbaric chamber, the patient's vital signs remained stable. He was discharged in good condition. 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) Patient is on Coumadin for PE Chronic osteomyelitis of left tibia (Chronic) chronic osteomyelitis left tibia at BKA stump 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) Pain of amputation stump of left lower extremity (Chronic) Dermatitis (Chronic) CAD (coronary artery disease) (Chronic) Osteomyelitis of left lower extremity (Chronic) Pain of left anterior lower extremity (Chronic) Amputation, traumatic, leg (Chronic) HTN (hypertension) (Chronic) Hypertension (Chronic) Peripheral arterial disease (Chronic) SVT (supraventricular tachycardia) (Chronic) Hypercoagulable state (Chronic) Wound, surgical, nonhealing (Chronic) Ischemic ulcer of right foot (Chronic) Allergies/Adverse Reactions: Allergies Penicillins Allergy (Verified 06/25/18 09:29) Swelling adhesive tape Adverse Reaction (Verified 06/25/18 09:29) Rash Home Medications: Ambulatory Orders Medication Instructions Recorded Atorvastatin Calcium [Lipitor] 40 mg PO QHS 04/03/18 Carvedilol 12.5 mg PO DAILY 04/03/18 Lisinopril 20 mg PO DAILY 04/03/18 Apixaban [Eliquis] 5 mg PO BID #60 tab 05/28/18 Diazepam [Valium] 5 mg PO 4X/DAY PRN #30 tab 05/30/18 Docusate Sodium [Colace] 100 mg PO BID #60 cap 05/30/18 Iron Polysaccharide Complex 150 mg PO DAILYCM #30 cap 05/30/18 [Ferrex 150] Mupirocin [Bactroban] 1 applic TOPICAL .QDAILY #2 tube 05/30/18 Smz/Tmp Ds [Bactrim Ds] 1 tab PO BIDCM #28 tab 05/30/18 gabapentin 300 mg capsule 1,800 mg PO BID #360 cap 06/28/18 levofloxacin 500 mg tablet 500 mg PO DAILY 07/13/18 sertraline 25 mg tablet 25 mg PO DAILY PRN 07/13/18 Maternal Family History: Family History (Last Reviewed 07/13/18 @ 10:48 by Mila Taveras) Other CVA (cerebral vascular accident) Cancer Heart disease Family History: Cancer, Diabetes, Heart Disease, Renal Disease Paternal Family History: Family History (Last Reviewed 07/13/18 @ 10:48 by Mila Taveras) Other CVA (cerebral vascular accident) Cancer Heart disease Family History: Cancer Smoking Status: Former smoker Physical Exam Vital Signs Temp Pulse Resp BP 97.7 F L 102 H 16 92/61 07/13/18 08:56 07/13/18 08:56 07/13/18 08:56 07/13/18 08:56 Assessment/Plan The patient appears to be tolerating hyperbaric oxygen therapy well, which will be continued as per the patient's medical plan.
[2018-07-16 07:51] VITALS: BP 119/87; PULSE 102; RESP 20; TEMP 36.3; BMI 24.5
[2018-07-16 09:17] VITALS: BP 109/60; BP 119/87; PULSE 102; PULSE 61; RESP 18; TEMP 36.3; TEMP 36.4
--- NOTE | 2018-07-16 17:17 | PN.PCM_ITS ---
Type of Wound Date of Service: 07/16/18 Chief Complaint: Nonhealing ulcer left BKA stump with recent surgical closure 05/25/18 and mild skin graft/flap compromise. History of Wound: Surgery 05/25/18 - 1. Surgical preparation left BKA stump with excisional debridement nonhealing infected ulcer. 2. Complex secondary wound closure revision reconstruction with re-advancement muscle flap and bipedicle anterior leg fasciocutaneous advancement flap and STSG from the left flank (60 cm2). Surgery 04/05/18 - 1. Surgical preparation left BKA stump with incision and drainage and excisional debridement nonhealing infected ulcer. 2. Partial ostectomy tibia for osteomyelitis. Wound care - Silver. Operative culture - MRSA. Soft tissue from 04/05/18 surgery - negative. Bone from 04/05/18 surgery - negative. Pathology from 04/05/18 surgery - negative for ostemyelitis. He was discharged on Bactrim DS. Initially perioperatively he was on Vancomycin. His Creatinine increased to 1.70 and the Vancomycin was stopped. At discharge his Creatinine had decreased to 1.49. He had Creatinine rechecked on 06/29/18 which was 1.96. He had another wound culture done on 06/18/18 which showed Pseudomonas aeroginosa. He was placed on Levaquin in addition to the Bactrim DS. Prealbumin from 05/26/18 was 17.5. Encourage nutritional supplementation with protein to help the healing process. MRI left BKA stump in 10/13 showed osteomyelitis. He changed his anticoagulation medication and stopped the Coumadin and started Eliquis. Today he denies fever. His appetite is good. With his early compromise to the skin graft/flap, he has started HBO treatments to help salvage the compromised graft/flap and is tolerating them thus far. Progress of Wound: Surgery 05/25/18 with mild skin graft/flap compromise. - Physical Exam Vital Signs Temp Pulse Resp BP 97.4 F L 102 H 18 119/87 H 07/16/18 09:17 07/16/18 09:17 07/16/18 09:17 07/16/18 09:17 Wound Measurements and Assessment WC - Nurse 1 - General Ulcer Measurement Start: 07/02/18 08:11 Freq: Status: Active Protocol: Activity Type Activity Date Activity User E-Sign Co-Sign Detail Recorded Client Recorded Date Recorded By Document 07/16/18 07:51 DL [id number] 07/16/18 07:58 DL 07/16/18 07:51 Wound Center Nurse 1 [Ulcer Assessment] #5 L BKA stump -Current Size (cm) - Length 5 -Current Size (cm) - Width 9.5 -Current Size (cm) - Depth 0.4 -Total Square Cm 47.5 -Photo Taken No -Exudate Amt Medium -Exudate Type Serosanguineous -Wound Margin Thickened & Rolled Under -Granulation Amt Medium (34-66%) -Granulation Quality Red -Necrosis Amt Medium (34-66%) -Necrotic Tissue Type Adherent Slough -Structure Exposed N/A -Texture (Ami-wound Skin Appearance) Scarring -Moisture (Ami-wound Skin Appearance No Abnormality ) -Color (Ami-wound Skin Appearance) No Abnormality -Temperature (Ami-wound Skin No Abnormality Appearance) (Pt Warm) -Tenderness on Palpation (Ami-wound No Skin Appearance) -Ulcer Cleansing Wound Cleanser -Foul Odor after Cleansing No -Anesthetic Used 4% Lidocaine Solution WC - Nurse 2 - General Ulcer CM Notes Start: 07/02/18 08:11 Freq: Status: Active Protocol: Activity Type Activity Date Activity User E-Sign Co-Sign Detail Recorded Client Recorded Date Recorded By Document 07/16/18 08:17 [id number] 07/16/18 08:18 07/16/18 08:17 Wound Center Nurse 2 [Procedure/Treatment] -Time 08:18 -Correct Patient Yes -Correct Side, Site, Position Yes -Correct Procedure Yes -Procedure Performed Yes -Type of Procedure Debridement -Clinical Debridement Subcutaneous -Post Debridement Size (cm) - Length 5 -Post Debridement Size (cm) - Width 9.6 -Post Debridement Size (cm) - Depth 0.4 -Total Square Cm 48.0 -Wound/Ulcer Outcome Not Healed -Ulcer Cleansing Rinsed/ Irrigated with Saline -Foul Odor after Cleansing No -Bioengineered Tissue No -Bleeding Controlled with Pressure -Offloading No -Treatment Response Procedure Tolerated Well [See Physician Procedure note for Specifics] Pain Scale: 0-10 Numeric [Pain] -Is Patient Pain Free? Yes Debridement Note Post-Debridement Measurements/Treatment ELIAS - Nurse 2 - General Ulcer CM Notes Start: 07/02/18 08:11 Freq: Status: Active Protocol: Activity Type Activity Date Activity User E-Sign Co-Sign Detail Recorded Client Recorded Date Recorded By Document 07/02/18 08:23 [id number] 07/02/18 08:28 Document 07/09/18 08:39 [id number] 07/09/18 08:40 Document 07/16/18 08:17 [email or web address] [id number] 07/16/18 08:18 07/02/18 07/09/18 07/16/18 08:23 08:39 08:17 Wound Center Nurse 2 #5 L BKA stump -Time 08:26 08:39 08:18 -Correct Patient Yes Yes Yes -Correct Side, Site, Position Yes Yes Yes -Correct Procedure Yes Yes Yes -Procedure Performed Yes Yes Yes -Type of Procedure Debridement Debridement Debridement -Clinical Debridement Subcutaneous Subcutaneous Subcutaneous -Post Debridement Size (cm) - Length 10.5 3.1 5 -Post Debridement Size (cm) - Width 8.5 9.1 9.6 -Post Debridement Size (cm) - Depth 0.6 0.2 0.4 -Total Square Cm 89.25 28.21 48.0 -Wound/Ulcer Outcome Not Healed Not Healed Not Healed -Ulcer Cleansing Rinsed/ Rinsed/ Rinsed/ Irrigated with Irrigated with Irrigated with Saline Saline Saline -Foul Odor after Cleansing No No No -Bioengineered Tissue No No No -Bleeding Controlled with Pressure Pressure Pressure -Offloading No No No -Treatment Response Procedure Procedure Procedure Tolerated Well Tolerated Well Tolerated Well Pain Scale: 0-10 Numeric Is Patient Pain Free? Yes Yes Yes Wound debrided: #5 Left BKA stump. Laterality: Left Wound Grade/Stage: 4. Type of Debridement: Excisional debridement Anesthesia Used: 4% Lidocaine Solution Depth: Down to and including healthy tissue, in the subcutaneous layer Percentage of wound debrided: 100 Instrument Used: 5mm curette Tissue Removed: subcutaneous tissue. Severity: Fat Layer Exposed Amount of bleeding with debridement: Mild Bleeding Controlled with: Pressure Patient tolerated procedure well Assessment/Plan Assessment: 1. Nonhealing ulcer left BKA stump with recent surgical closure 05/25/18. 2. Pain left BKA stump. 3. MRSA. 4. 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 5. 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 6. [facility] use of anticoagulation. 7. Early skin graft/flap compromise left BKA stump, (20% compromise). 8. s/p surgical preparation left BKA stump with excisional debridement nonhealing infected ulcer and complex secondary wound closure revision reconstruction with re-advancement muscle flap and bipedicle anterior leg fasciocutaneous advancement flap and STSG from the left flank (60 cm2). 9. JUAN (acute kidney injury), probable medication related. Plan: Continue Bactrim DS for MRSA and Levaquin for Pseudomonas aeroginosa. She is finishing the Bactrim DS and will continue the Levaquin until mid July. The skin graft shows good adherence and about 90% take and good vascular ingrowth. There is some mild compromise at the edges of the skin graft (about 10% compromise). Less moisture present. The stump incision shows some superficial wound separation. The stump is soft with mild swelling that is resolving. The central aspect of the stump anteriorly shows some mild compromise. After debridement, the underlying subcutaneous tissue appears viable. With the mild skin graft/flap compromise (about 20% total), he started HBO treatments which would help salvage the compromised graft/flap. He is tolerating the HBO treatments thus far. Prealbumin from the hospital was 17.5. Encourage nutritional supplementation with protein to help the healing process. His recent Creatinine from 06/29/18 was 1.96. Encourage hydration. He will followup with his PCP for further evaluation. He may need Nephrology evaluation. After his last surgery in April, he had been on Vancomycin for a day which was stopped when his Creatinine increased to 1.70. It then d ecreased down to 1.49 before increasing back up to 1.96. Will repeat the BUN/Creatinine in the next week. He is returning to work today. Discussed with the patient that the presence of MRSA and Pseudomonas can be destructive to the surrounding tissue leading to suboptimal healing. Followup one week.
--- NOTE | 2018-07-16 17:41 | HBO.PN.PCM_ITS ---
History of Present Illness Date of Service: 07/16/18 Presenting Chief Complaint: Nonhealing ulcer left BKA stump with recent surgical closure 05/25/18 and mild skin graft/flap compromise. JANIE CHIN is a 52 year old currently undergoing hyperbaric oxygen therapy for nonhealing ulcer left BKA stump with recent surgical closure 05/25/18 and mild skin graft/flap compromise. Progress: Today's session represents the 9th such session of hyperbaric oxygen therapy. The patient appears to be tolerating HBO therapy well. Tolerance of hyperbaric oxygen therapy: Hyperbaric oxygen therapy was administered as per the facility's protocol. The patient tolerated hyperbaric oxygen therapy well, without complaints or complications. Upon emergence from the hyperbaric chamber, the patient's vital signs remained stable. He was discharged in good condition. 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) Pain of amputation stump of left lower extremity (Chronic) Dermatitis (Chronic) CAD (coronary artery disease) (Chronic) Osteomyelitis of left lower extremity (Chronic) Pain of left anterior lower extremity (Chronic) Amputation, traumatic, leg (Chronic) HTN (hypertension) (Chronic) Hypertension (Chronic) Peripheral arterial disease (Chronic) SVT (supraventricular tachycardia) (Chronic) Hypercoagulable state (Chronic) Wound, surgical, nonhealing (Chronic) Ischemic ulcer of right foot (Chronic) Allergies/Adverse Reactions: Allergies Penicillins Allergy (Verified 06/25/18 09:29) Swelling adhesive tape Adverse Reaction (Verified 06/25/18 09:29) Rash Home Medications: Ambulatory Orders Medication Instructions Recorded Atorvastatin Calcium [Lipitor] 40 mg PO QHS 04/03/18 Carvedilol 12.5 mg PO DAILY 04/03/18 Apixaban [Eliquis] 5 mg PO BID #60 tab 05/28/18 Diazepam [Valium] 5 mg PO 4X/DAY PRN #30 tab 05/30/18 Docusate Sodium [Colace] 100 mg PO BID #60 cap 05/30/18 Iron Polysaccharide Complex 150 mg PO DAILYCM #30 cap 05/30/18 [Ferrex 150] Mupirocin [Bactroban] 1 applic TOPICAL .QDAILY #2 tube 05/30/18 Smz/Tmp Ds [Bactrim Ds] 1 tab PO BIDCM #28 tab 05/30/18 gabapentin 300 mg capsule 1,800 mg PO BID #360 cap 06/28/18 amlodipine 2.5 mg tablet 2.5 mg PO DAILY #30 tab 07/13/18 levofloxacin 500 mg tablet 500 mg PO DAILY 07/13/18 sertraline 25 mg tablet 25 mg PO DAILY PRN 07/13/18 Maternal Family History: Family History (Last Reviewed 07/13/18 @ 10:48 by Mila Taveras) Other CVA (cerebral vascular accident) Cancer Heart disease Family History: Cancer, Diabetes, Heart Disease, Renal Disease Paternal Family History: Family History (Last Reviewed 07/13/18 @ 10:48 by Mila Taveras) Other CVA (cerebral vascular accident) Cancer Heart disease Family History: Cancer Smoking Status: Former smoker Physical Exam Vital Signs Temp Pulse Resp BP 97.4 F L 102 H 18 119/87 H 07/16/18 09:17 07/16/18 09:17 07/16/18 09:17 07/16/18 09:17
[2018-07-17 10:56] VITALS: BP 108/61; BP 120/67; PULSE 54; PULSE 91; RESP 18; TEMP 36
--- NOTE | 2018-07-17 12:18 | HBO.PN.PCM_ITS ---
History of Present Illness Date of Service: 07/17/18 Presenting Chief Complaint: Nonhealing ulcer left BKA stump with recent surgical closure 05/25/18 and mild skin graft/flap compromise. JANIE CHIN is a 52 year old currently undergoing hyperbaric oxygen therapy for nonhealing ulcer left BKA stump with recent surgical closure 05/25/18 and mild skin graft/flap compromise. Progress: Today's session represents the 10th such session of hyperbaric oxygen therapy. The patient appears to be tolerating HBO therapy well. Tolerance of hyperbaric oxygen therapy: Hyperbaric oxygen therapy was administered as per the facility's protocol. The patient tolerated hyperbaric oxygen therapy well, without complaints or complications. Upon emergence from the hyperbaric chamber, the patient's vital signs remained stable. He was discharged in good condition. 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) Pain of amputation stump of left lower extremity (Chronic) Dermatitis (Chronic) CAD (coronary artery disease) (Chronic) Osteomyelitis of left lower extremity (Chronic) Pain of left anterior lower extremity (Chronic) Amputation, traumatic, leg (Chronic) HTN (hypertension) (Chronic) Hypertension (Chronic) Peripheral arterial disease (Chronic) SVT (supraventricular tachycardia) (Chronic) Hypercoagulable state (Chronic) Wound, surgical, nonhealing (Chronic) Ischemic ulcer of right foot (Chronic) Allergies/Adverse Reactions: Allergies Penicillins Allergy (Verified 06/25/18 09:29) Swelling adhesive tape Adverse Reaction (Verified 06/25/18 09:29) Rash Home Medications: Ambulatory Orders Medication Instructions Recorded Atorvastatin Calcium [Lipitor] 40 mg PO QHS 04/03/18 Carvedilol 12.5 mg PO DAILY 04/03/18 Apixaban [Eliquis] 5 mg PO BID #60 tab 05/28/18 Diazepam [Valium] 5 mg PO 4X/DAY PRN #30 tab 05/30/18 Docusate Sodium [Colace] 100 mg PO BID #60 cap 05/30/18 Iron Polysaccharide Complex 150 mg PO DAILYCM #30 cap 05/30/18 [Ferrex 150] Mupirocin [Bactroban] 1 applic TOPICAL .QDAILY #2 tube 05/30/18 Smz/Tmp Ds [Bactrim Ds] 1 tab PO BIDCM #28 tab 05/30/18 gabapentin 300 mg capsule 1,800 mg PO BID #360 cap 06/28/18 amlodipine 2.5 mg tablet 2.5 mg PO DAILY #30 tab 07/13/18 levofloxacin 500 mg tablet 500 mg PO DAILY 07/13/18 sertraline 25 mg tablet 25 mg PO DAILY PRN 07/13/18 Maternal Family History: Family History (Last Reviewed 07/13/18 @ 10:48 by Mila Taveras) Other CVA (cerebral vascular accident) Cancer Heart disease Family History: Cancer, Diabetes, Heart Disease, Renal Disease Paternal Family History: Family History (Last Reviewed 07/13/18 @ 10:48 by Mila Taveras) Other CVA (cerebral vascular accident) Cancer Heart disease Family History: Cancer Smoking Status: Former smoker Physical Exam Vital Signs Temp Pulse Resp BP 96.8 F L 91 18 120/67 07/17/18 10:56 07/17/18 10:56 07/17/18 10:56 07/17/18 10:56 General: Alert, Oriented x3, Cooperative, No apparent distress, Well developed, Well nourished HEENT: Atraumatic, PERRLA, EOMI, Normocephalic Lungs: Normal air movement Psych/Mental Status: Normal Affect, Appropriate, Alert and oriented to time, place, person, mood and affect Assessment/Plan Patient appears to be tolerating hyperbaric oxygen therapy well, which will be continued as per the patient's medical plan.
[2018-07-18 08:14] VITALS: BP 108/68; BP 115/81; PULSE 72; PULSE 90; RESP 16; RESP 18; TEMP 36; TEMP 36.4
--- NOTE | 2018-07-18 14:58 | HBO.PN.PCM_ITS ---
History of Present Illness Date of Service: 07/18/18 Presenting Chief Complaint: Nonhealing ulcer left BKA stump with recent surgical closure 05/25/18 and mild skin graft/flap compromise. JANIE CHIN is a 52 year old currently undergoing hyperbaric oxygen therapy for nonhealing ulcer left BKA stump with recent surgical closure 05/25/18 and mild skin graft/flap compromise. Progress: Today's session represents the 11th such session of hyperbaric oxygen therapy. The patient appears to be tolerating HBO therapy well. Tolerance of hyperbaric oxygen therapy: Hyperbaric oxygen therapy was administered as per the facility's protocol. The patient tolerated hyperbaric oxygen therapy well, without complaints or complications. Upon emergence from the hyperbaric chamber, the patient's vital signs remained stable. He was discharged in good condition. 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) Pain of amputation stump of left lower extremity (Chronic) Dermatitis (Chronic) CAD (coronary artery disease) (Chronic) Osteomyelitis of left lower extremity (Chronic) Pain of left anterior lower extremity (Chronic) Amputation, traumatic, leg (Chronic) HTN (hypertension) (Chronic) Hypertension (Chronic) Peripheral arterial disease (Chronic) SVT (supraventricular tachycardia) (Chronic) Hypercoagulable state (Chronic) Wound, surgical, nonhealing (Chronic) Ischemic ulcer of right foot (Chronic) Allergies/Adverse Reactions: Allergies Penicillins Allergy (Verified 06/25/18 09:29) Swelling adhesive tape Adverse Reaction (Verified 06/25/18 09:29) Rash Home Medications: Ambulatory Orders Medication Instructions Recorded Atorvastatin Calcium [Lipitor] 40 mg PO QHS 04/03/18 Carvedilol 12.5 mg PO DAILY 04/03/18 Apixaban [Eliquis] 5 mg PO BID #60 tab 05/28/18 Diazepam [Valium] 5 mg PO 4X/DAY PRN #30 tab 05/30/18 Docusate Sodium [Colace] 100 mg PO BID #60 cap 05/30/18 Iron Polysaccharide Complex 150 mg PO DAILYCM #30 cap 05/30/18 [Ferrex 150] Mupirocin [Bactroban] 1 applic TOPICAL .QDAILY #2 tube 05/30/18 Smz/Tmp Ds [Bactrim Ds] 1 tab PO BIDCM #28 tab 05/30/18 gabapentin 300 mg capsule 1,800 mg PO BID #360 cap 06/28/18 amlodipine 2.5 mg tablet 2.5 mg PO DAILY #30 tab 07/13/18 levofloxacin 500 mg tablet 500 mg PO DAILY 07/13/18 sertraline 25 mg tablet 25 mg PO DAILY PRN 07/13/18 Maternal Family History: Family History (Last Reviewed 07/13/18 @ 10:48 by Mila Taveras) Other CVA (cerebral vascular accident) Cancer Heart disease Family History: Cancer, Diabetes, Heart Disease, Renal Disease Paternal Family History: Family History (Last Reviewed 07/13/18 @ 10:48 by Mila Taveras) Other CVA (cerebral vascular accident) Cancer Heart disease Family History: Cancer Smoking Status: Former smoker Physical Exam Vital Signs Temp Pulse Resp BP 97.5 F L 90 18 108/68 07/18/18 08:14 07/18/18 08:14 07/18/18 08:14 07/18/18 08:14 General: Alert, Oriented x3, Cooperative, No apparent distress HEENT: Atraumatic, TM's Clear Lungs: Clear to auscultation, Normal air movement Cardiovascular: Regular rate, Regular Rhythm Psych/Mental Status: Normal Affect, Appropriate, Alert and oriented to time, place, person, mood and affect Assessment/Plan Patient appears to be tolerating hyperbaric oxygen therapy well, which will be continued as per the patient's medical plan.
[2018-07-19 08:26] VITALS: BP 105/71; BP 122/76; PULSE 86; PULSE 90; RESP 16; RESP 18; TEMP 36.4; TEMP 36.6
--- NOTE | 2018-07-19 08:49 | HBO.PN.PCM_ITS ---
History of Present Illness Date of Service: 07/19/18 Presenting Chief Complaint: Nonhealing ulcer left BKA stump with recent surgical closure 05/25/18 and mild skin graft/flap compromise. JANIE CHIN is a 52 year old currently undergoing hyperbaric oxygen therapy for nonhealing ulcer left BKA stump with recent surgical closure 05/25/18 and mild skin graft/flap compromise. Progress: Today's session represents the 12th such session of hyperbaric oxygen therapy. The patient appears to be tolerating HBO therapy well. Tolerance of hyperbaric oxygen therapy: Hyperbaric oxygen therapy was administered as per the facility's protocol. The patient tolerated hyperbaric oxygen therapy well, without complaints or complications. Upon emergence from the hyperbaric chamber, the patient's vital signs remained stable. He was discharged in good condition. 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) Pain of amputation stump of left lower extremity (Chronic) Dermatitis (Chronic) CAD (coronary artery disease) (Chronic) Osteomyelitis of left lower extremity (Chronic) Pain of left anterior lower extremity (Chronic) Amputation, traumatic, leg (Chronic) HTN (hypertension) (Chronic) Hypertension (Chronic) Peripheral arterial disease (Chronic) SVT (supraventricular tachycardia) (Chronic) Hypercoagulable state (Chronic) Wound, surgical, nonhealing (Chronic) Ischemic ulcer of right foot (Chronic) Allergies/Adverse Reactions: Allergies Penicillins Allergy (Verified 06/25/18 09:29) Swelling adhesive tape Adverse Reaction (Verified 06/25/18 09:29) Rash Home Medications: Ambulatory Orders Medication Instructions Recorded Atorvastatin Calcium [Lipitor] 40 mg PO QHS 04/03/18 Carvedilol 12.5 mg PO DAILY 04/03/18 Apixaban [Eliquis] 5 mg PO BID #60 tab 05/28/18 Diazepam [Valium] 5 mg PO 4X/DAY PRN #30 tab 05/30/18 Docusate Sodium [Colace] 100 mg PO BID #60 cap 05/30/18 Iron Polysaccharide Complex 150 mg PO DAILYCM #30 cap 05/30/18 [Ferrex 150] Mupirocin [Bactroban] 1 applic TOPICAL .QDAILY #2 tube 05/30/18 Smz/Tmp Ds [Bactrim Ds] 1 tab PO BIDCM #28 tab 05/30/18 gabapentin 300 mg capsule 1,800 mg PO BID #360 cap 06/28/18 amlodipine 2.5 mg tablet 2.5 mg PO DAILY #30 tab 07/13/18 levofloxacin 500 mg tablet 500 mg PO DAILY 07/13/18 sertraline 25 mg tablet 25 mg PO DAILY PRN 07/13/18 Maternal Family History: Family History (Last Reviewed 07/13/18 @ 10:48 by Mila Taveras) Other CVA (cerebral vascular accident) Cancer Heart disease Family History: Cancer, Diabetes, Heart Disease, Renal Disease Paternal Family History: Family History (Last Reviewed 07/13/18 @ 10:48 by Mila Taveras) Other CVA (cerebral vascular accident) Cancer Heart disease Family History: Cancer Smoking Status: Former smoker Physical Exam Vital Signs Temp Pulse Resp BP 97.5 F L 90 18 108/68 07/18/18 08:14 07/18/18 08:14 07/18/18 08:14 07/18/18 08:14 General: Alert, Oriented x3, Cooperative, No apparent distress HEENT: Atraumatic, TM's Clear Lungs: Clear to auscultation, Normal air movement Cardiovascular: Regular rate, Regular Rhythm Psych/Mental Status: Normal Affect, Appropriate, Alert and oriented to time, place, person, mood and affect Assessment/Plan Patient appears to be tolerating hyperbaric oxygen therapy well, which will be continued as per the patient's medical plan.
--- NOTE | 2018-07-20 10:19 | HBO.PN.PCM_ITS ---
History of Present Illness Presenting Chief Complaint: Nonhealing ulcer left BKA stump with recent surgical closure 05/25/18 and mild skin graft/flap compromise. JANIE CHIN is a 52 year old currently undergoing hyperbaric oxygen therapy for nonhealing ulcer left BKA stump with recent surgical closure 05/25/18 and mild skin graft/flap compromise. Progress: Today's session represents the 12th such session of hyperbaric oxygen therapy. The patient appears to be tolerating HBO therapy well. Tolerance of hyperbaric oxygen therapy: Hyperbaric oxygen therapy was administered as per the facility's protocol. The patient tolerated hyperbaric oxygen therapy well, without complaints or complications. Upon emergence from the hyperbaric chamber, the patient's vital signs remained stable. He was discharged in good condition. 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 (Chronic) Patient is on Coumadin for PE Chronic osteomyelitis of left tibia (Chronic) chronic osteomyelitis left tibia at BKA stump 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) Pain of amputation stump of left lower extremity (Chronic) Dermatitis (Chronic) CAD (coronary artery disease) (Chronic) Osteomyelitis of left lower extremity (Chronic) Pain of left anterior lower extremity (Chronic) Amputation, traumatic, leg (Chronic) HTN (hypertension) (Chronic) Hypertension (Chronic) Peripheral arterial disease (Chronic) SVT (supraventricular tachycardia) (Chronic) Hypercoagulable state (Chronic) Wound, surgical, nonhealing (Chronic) Ischemic ulcer of right foot (Chronic) Allergies/Adverse Reactions: Allergies Penicillins Allergy (Verified 06/25/18 09:29) Swelling adhesive tape Adverse Reaction (Verified 06/25/18 09:29) Rash Home Medications: Ambulatory Orders Medication Instructions Recorded Atorvastatin Calcium [Lipitor] 40 mg PO QHS 04/03/18 Carvedilol 12.5 mg PO DAILY 04/03/18 Apixaban [Eliquis] 5 mg PO BID #60 tab 05/28/18 Diazepam [Valium] 5 mg PO 4X/DAY PRN #30 tab 05/30/18 Docusate Sodium [Colace] 100 mg PO BID #60 cap 05/30/18 Iron Polysaccharide Complex 150 mg PO DAILYCM #30 cap 05/30/18 [Ferrex 150] Mupirocin [Bactroban] 1 applic TOPICAL .QDAILY #2 tube 05/30/18 Smz/Tmp Ds [Bactrim Ds] 1 tab PO BIDCM #28 tab 05/30/18 gabapentin 300 mg capsule 1,800 mg PO BID #360 cap 06/28/18 amlodipine 2.5 mg tablet 2.5 mg PO DAILY #30 tab 07/13/18 levofloxacin 500 mg tablet 500 mg PO DAILY 07/13/18 sertraline 25 mg tablet 25 mg PO DAILY PRN 07/13/18 Maternal Family History: Family History (Last Reviewed 07/13/18 @ 10:48 by Mila Taveras) Other CVA (cerebral vascular accident) Cancer Heart disease Family History: Cancer, Diabetes, Heart Disease, Renal Disease Paternal Family History: Family History (Last Reviewed 07/13/18 @ 10:48 by Mila Taveras) Other CVA (cerebral vascular accident) Cancer Heart disease Family History: Cancer Smoking Status: Former smoker Physical Exam Vital Signs Temp Pulse Resp BP 97.8 F 90 18 122/76 H 07/19/18 08:26 07/19/18 08:26 07/19/18 08:26 07/19/18 08:26 Assessment/Plan Patient appears to be tolerating hyperbaric oxygen therapy well, which will be continued as per the patient's medical plan.
[2018-07-20 11:30] LABS: Anion Gap 5 (5-15); BUN 11 mg/dL (7-18); BUN/Creat Ratio 8.4 RATIO (10-20); Chloride 106 mmol/L (98-107); Creatinine, Serum 1.31 mg/dL (0.70-1.30); EST Glomerular Filtration Rate 61 mL/min (>60); Est Glom Filt Rate - Afr Amer 74 mL/min (>60); Glucose 99 mg/dL (74-106); Potassium 5.1 mmol/L (3.5-5.1); Sodium Level 135 mmol/L (136-145)
[2018-07-20 11:42] VITALS: BP 108/68; BP 110/73; PULSE 57; PULSE 80; RESP 16; RESP 18; TEMP 36.5
--- NOTE | 2018-07-23 08:26 | PCM.HBO.PN ---
History of Present Illness Date of Service: 07/23/18 Presenting Chief Complaint: Nonhealing ulcer left BKA stump with recent surgical closure 05/25/18 and mild skin graft/flap compromise. JANIE CHIN is a 52 year old currently undergoing hyperbaric oxygen therapy for nonhealing ulcer left BKA stump with recent surgical closure 05/25/18 and mild skin graft/flap compromise. Progress: Today's session represents the 13th such session of hyperbaric oxygen therapy. The patient appears to be tolerating HBO therapy well. Tolerance of hyperbaric oxygen therapy: Hyperbaric oxygen therapy was administered as per the facility's protocol. The patient tolerated hyperbaric oxygen therapy well, without complaints or complications. Upon emergence from the hyperbaric chamber, the patient's vital signs remained stable. He was discharged in good condition. 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 (Chronic) snf current use of 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 (Chronic) Patient is on Coumadin for PE Chronic osteomyelitis of left tibia (Chronic) chronic osteomyelitis left tibia at BKA stump 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) Pain of amputation stump of left lower extremity (Chronic) Dermatitis (Chronic) CAD (coronary artery disease) (Chronic) Osteomyelitis of left lower extremity (Chronic) Pain of left anterior lower extremity (Chronic) Amputation, traumatic, leg (Chronic) HTN (hypertension) (Chronic) Hypertension (Chronic) Peripheral arterial disease (Chronic) SVT (supraventricular tachycardia) (Chronic) Hypercoagulable state (Chronic) Wound, surgical, nonhealing (Chronic) Ischemic ulcer of right foot (Chronic) Allergies/Adverse Reactions: Allergies Penicillins Allergy (Verified 06/25/18 09:29) Swelling adhesive tape Adverse Reaction (Verified 06/25/18 09:29) Rash Home Medications: Ambulatory Orders Medication Instructions Recorded Atorvastatin Calcium [Lipitor] 40 mg PO QHS 04/03/18 Carvedilol 12.5 mg PO DAILY 04/03/18 Apixaban [Eliquis] 5 mg PO BID #60 tab 05/28/18 Diazepam [Valium] 5 mg PO 4X/DAY PRN #30 tab 05/30/18 Docusate Sodium [Colace] 100 mg PO BID #60 cap 05/30/18 Iron Polysaccharide Complex 150 mg PO DAILYCM #30 cap 05/30/18 [Ferrex 150] Mupirocin [Bactroban] 1 applic TOPICAL .QDAILY #2 tube 05/30/18 Smz/Tmp Ds [Bactrim Ds] 1 tab PO BIDCM #28 tab 05/30/18 gabapentin 300 mg capsule 1,800 mg PO BID #360 cap 06/28/18 amlodipine 2.5 mg tablet 2.5 mg PO DAILY #30 tab 07/13/18 levofloxacin 500 mg tablet 500 mg PO DAILY 07/13/18 sertraline 25 mg tablet 25 mg PO DAILY PRN 07/13/18 Maternal Family History: Family History (Last Reviewed 07/13/18 @ 10:48 by Mila Taveras) Other CVA (cerebral vascular accident) Cancer Heart disease Family History: Cancer, Diabetes, Heart Disease, Renal Disease Paternal Family History: Family History (Last Reviewed 07/13/18 @ 10:48 by Mila Taveras) Other CVA (cerebral vascular accident) Cancer Heart disease Family History: Cancer Smoking Status: Former smoker Physical Exam Vital Signs Temp Pulse Resp BP 97.7 F L 80 18 108/68 07/20/18 11:42 07/20/18 11:42 07/20/18 11:42 07/20/18 11:42 General: Alert, Oriented x3, Cooperative HEENT: Atraumatic, TM's Clear Lungs: Clear to auscultation, Normal air movement Cardiovascular: Regular rate, Regular Rhythm Psych/Mental Status: Normal Affect, Appropriate, Alert and oriented to time, place, person, mood and affect Assessment/Plan Patient appears to be tolerating hyperbaric oxygen therapy well, which will be continued as per the patient's medical plan.
[2018-07-23 08:51] VITALS: BP 105/79; BP 119/74; PULSE 79; PULSE 84; RESP 16; TEMP 35.2; TEMP 36.1
[2018-07-23 10:17] VITALS: BP 105/79; PULSE 84; RESP 18; TEMP 36.1; BMI 24.5
--- NOTE | 2018-07-23 11:38 | PCM.WC.PN ---
(1) Partial loss of skin graft Status: Acute Current Visit: Yes Code(s): T86.828 - Other complications of skin graft (allograft) (autograft) (2) Personal history of osteomyelitis Status: Chronic Current Visit: Yes Code(s): Z87.39 - Personal history of other diseases of the musculoskeletal system and connective tissue (3) Ulceration of below knee amputation stump Status: Chronic Current Visit: Yes Code(s): T87.89 - Other complications of amputation stump; L97.809 - Non-pressure chronic ulcer of other part of unspecified lower leg with unspecified severity (4) Methicillin resistant Staphylococcus aureus infection Status: Chronic Current Visit: Yes Code(s): A49.02 - Methicillin resistant Staphylococcus aureus infection, unspecified site (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 History of Wound: Surgery 05/25/18 - 1. Surgical preparation left BKA stump with excisional debridement nonhealing infected ulcer. 2. Complex secondary wound closure revision reconstruction with re-advancement muscle flap and bipedicle anterior leg fasciocutaneous advancement flap and STSG from the left flank (60 cm2). Surgery 04/05/18 - 1. Surgical preparation left BKA stump with incision and drainage and excisional debridement nonhealing infected ulcer. 2. Partial ostectomy tibia for osteomyelitis. Wound care - Will stop silver and start Santyl. Operative culture - MRSA. Soft tissue from 04/05/18 surgery - negative. Bone from 04/05/18 surgery - negative. Pathology from 04/05/18 surgery - negative for ostemyelitis. He was discharged on Bactrim DS. Initially perioperatively he was on Vancomycin. His Creatinine increased to 1.70 and the Vancomycin was stopped. At discharge his Creatinine had decreased to 1.49. He had Creatinine rechecked on 06/29/18 which was 1.96. He had another wound culture done on 06/18/18 which showed Pseudomonas aeroginosa. He was placed on Levaquin in addition to the Bactrim DS. Prealbumin from 05/26/18 was 17.5. Encourage nutritional supplementation with protein to help the healing process. MRI left BKA stump in 10/13 showed osteomyelitis. He changed his anticoagulation medication and stopped the Coumadin and started Eliquis. Today he denies fever. His appetite is good. With his early compromise to the skin graft/flap, he has started HBO treatments to help salvage the compromised graft/flap and is tolerating them thus far. Progress of Wound: Surgery 05/25/18 with mild skin graft/flap compromise. - Physical Exam Vital Signs Temp Pulse Resp BP 96.9 F L 84 18 105/79 07/23/18 10:17 07/23/18 10:17 07/23/18 10:17 07/23/18 10:17 General: Alert, Oriented x3, Cooperative HEENT: Atraumatic Oral: Moist Mucosa Lungs: Normal air movement Cardiovascular: Regular rate Extremities: No edema, Capillary Refill Less than 3 Seconds Skin: Ulcer/ Wound - Left BKA opened ulcer Wound Measurements and Assessment WC - Nurse 1 - General Ulcer Measurement Start: 07/02/18 08:11 Freq: Status: Active Protocol: Activity Type Activity Date Activity User E-Sign Co-Sign Detail Recorded Client Recorded Date Recorded By Document 07/23/18 10:17 DL [id number] 07/23/18 10:22 DL 07/23/18 10:17 Wound Center Nurse 1 [Ulcer Assessment] #5 L BKA stump -Current Size (cm) - Length 5.3 -Current Size (cm) - Width 9.8 -Current Size (cm) - Depth 0.3 -Total Square Cm 51.94 -Photo Taken No -Exudate Amt Small -Exudate Type Serosanguineous -Wound Margin Thickened -Granulation Amt Medium (34-66%) -Granulation Quality [place] Red -Necrosis Amt Medium (34-66%) -Necrotic Tissue Type Adherent Slough -Structure Exposed N/A -Texture (Ami-wound Skin Appearance) Localized Edema Scarring -Moisture (Ami-wound Skin Appearance No Abnormality ) -Color (Ami-wound Skin Appearance) No Abnormality -Temperature (Ami-wound Skin No Abnormality Appearance) (Pt Warm) -Tenderness on Palpation (Ami-wound No Skin Appearance) -Ulcer Cleansing Wound Cleanser -Foul Odor after Cleansing No -Anesthetic Used 4% Lidocaine Solution WC - Nurse 2 - General Ulcer CM Notes Start: 07/02/18 08:11 Freq: Status: Active Protocol: Activity Type Activity Date Activity User E-Sign Co-Sign Detail Recorded Client Recorded Date Recorded By Document 07/23/18 10:57 [id number] 07/23/18 11:07 07/23/18 10:57 Wound Center Nurse 2 [Procedure/Treatment] -Time 11:02 -Correct Patient Yes -Correct Side, Site, Position Yes -Correct Procedure Yes -Procedure Performed Yes -Type of Procedure Debridement -Clinical Debridement Subcutaneous -Post Debridement Size (cm) - Length 5.4 -Post Debridement Size (cm) - Width 9.5 -Post Debridement Size (cm) - Depth 0.4 -Total Square Cm 51.30 -Wound/Ulcer Outcome Not Healed -Ulcer Cleansing Rinsed/ Irrigated with Saline -Foul Odor after Cleansing No -Bioengineered Tissue No -Bleeding Controlled with Pressure -Offloading No -Treatment Response Procedure Tolerated Well [See Physician Procedure note for Specifics] Pain Scale: 0-10 Numeric [Pain] -Is Patient Pain Free? Yes Musculoskeletal: No Muscle Wasting Neurological: Neuro grossly intact Psych/Mental Status: Normal Affect, Appropriate Debridement Note Post-Debridement Measurements/Treatment WC - Nurse 2 - General Ulcer CM Notes Start: 07/02/18 08:11 Freq: Status: Active Protocol: Activity Type Activity Date Activity User E-Sign Co-Sign Detail Recorded Client Recorded Date Recorded By Document 07/02/18 08:23 [id number] 07/02/18 08:28 Document 07/09/18 08:39 [id number] 07/09/18 08:40 Document 07/16/18 08:17 [id number] 07/16/18 08:18 Document 07/23/18 10:57 [id number] 07/23/18 11:07 07/02/18 07/09/18 07/16/18 08:23 08:39 08:17 Wound Center Nurse 2 #5 L BKA stump -Time 08:26 08:39 08:18 -Correct Patient Yes Yes Yes -Correct Side, Site, Position Yes Yes Yes -Correct Procedure Yes Yes Yes -Procedure Performed Yes Yes Yes -Type of Procedure Debridement Debridement Debridement -Clinical Debridement Subcutaneous Subcutaneous Subcutaneous -Post Debridement Size (cm) - Length 10.5 3.1 5 -Post Debridement Size (cm) - Width 8.5 9.1 9.6 -Post Debridement Size (cm) - Depth 0.6 0.2 0.4 -Total Square Cm 89.25 28.21 48.0 -Wound/Ulcer Outcome Not Healed Not Healed Not Healed -Ulcer Cleansing Rinsed/ Rinsed/ Rinsed/ Irrigated with Irrigated with Irrigated with Saline Saline Saline -Foul Odor after Cleansing No No No -Bioengineered Tissue No No No -Bleeding Controlled with Pressure Pressure Pressure -Offloading No No No -Treatment Response Procedure Procedure Procedure Tolerated Well Tolerated Well Tolerated Well Pain Scale: 0-10 Numeric Is Patient Pain Free? Yes Yes Yes 07/23/18 10:57 Wound Center Nurse 2 #5 L BKA stump -Time 11:02 -Correct Patient Yes -Correct Side, Site, Position Yes -Correct Procedure Yes -Procedure Performed Yes -Type of Procedure Debridement -Clinical Debridement Subcutaneous -Post Debridement Size (cm) - Length 5.4 -Post Debridement Size (cm) - Width 9.5 -Post Debridement Size (cm) - Depth 0.4 -Total Square Cm 51.30 -Wound/Ulcer Outcome Not Healed -Ulcer Cleansing Rinsed/ Irrigated with Saline -Foul Odor after Cleansing No -Bioengineered Tissue No -Bleeding Controlled with Pressure -Offloading No -Treatment Response Procedure Tolerated Well Pain Scale: 0-10 Numeric Is Patient Pain Free? Yes Wound debrided: Left BKA ulcer Laterality: Left Type of Debridement: Excisional debridement Anesthesia Used: 4% Lidocaine Solution Depth: Down to and including healthy tissue, in the subcutaneous layer Percentage of wound debrided: 100 Instrument Used: 5mm curette Tissue Removed: Subcutaneous tissue and slough Severity: Fat Layer Exposed Amount of bleeding with debridement: Mild Bleeding Controlled with: Pressure, Compression and gauze Patient tolerated procedure well Assessment/Plan Active Problems (Last Reviewed 07/13/18 @ 10:48 by Mila Taveras) Partial loss of skin graft (Acute) Methicillin resistant Staphylococcus aureus infection (Chronic) Personal history of osteomyelitis (Chronic) 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 Nonhealing ulcer left BKA stump with recent surgical closure 05/25/18. 2. Pain left BKA stump. 3. MRSA. 4. 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 5. 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 7. Early skin graft/flap compromise left BKA stump, (20% compromise). 8. s/p surgical preparation left BKA stump with excisional debridement nonhealing infected ulcer and complex secondary wound closure revision reconstruction with re-advancement muscle flap and bipedicle anterior leg fasciocutaneous advancement flap and STSG from the left flank (60 cm2). 9. JUAN (acute kidney injury), probable medication related. Plan: Continue Bactrim DS for MRSA and Levaquin for Pseudomonas aeroginosa. He is finishing the Bactrim DS and will continue the Levaquin until mid July. The skin graft shows good adherence and about 90% take and good vascular ingrowth. There is some mild compromise at the edges of the skin graft (about 10% compromise). Less moisture present. The stump incision shows some superficial wound separation. The stump is soft with mild swelling that is resolving. The central aspect of the stump anteriorly shows some mild compromise. After debridement, the underlying subcutaneous tissue appears viable. With the mild skin graft/flap compromise (about 20% total), he started HBO treatments which would help salvage the compromised graft/flap. He is tolerating the HBO treatments thus far. Prealbumin from the hospital was 17.5. Encourage nutritional supplementation with protein to help the healing process. His recent Creatinine from 06/29/18 was 1.96. Encourage hydration. He will followup with his PCP for further evaluation. He may need Nephrology evaluation. After his last surgery in April, he had been on Vancomycin for a day which was stopped when his Creatinine increased to 1.70. It then decreased down to 1.49 before increasing back up to 1.96. Will repeat the BUN/Creatinine in the next week. He has returned to work. Discussed with the patient that the presence of MRSA and Pseudomonas can be destructive to the surrounding tissue leading to suboptimal healing. There is an increase in biofilm this week and unable to debride it all, will stop silver if he gets approval of Santyl that he will apply elida thickness when he obtains it. Followup one week. Code Visit 62825
[2018-07-24 09:22] VITALS: BP 120/82; BP 96/51; PULSE 71; PULSE 75; RESP 16; RESP 18; TEMP 36.3; TEMP 36.4
--- NOTE | 2018-07-24 12:15 | PCM.HBO.PN ---
History of Present Illness Date of Service: 07/24/18 Presenting Chief Complaint: Nonhealing ulcer left BKA stump with recent surgical closure 05/25/18 and mild skin graft/flap compromise. JANIE CHIN is a 52 year old currently undergoing hyperbaric oxygen therapy for nonhealing ulcer left BKA stump with recent surgical closure 05/25/18 and mild skin graft/flap compromise. Progress: Today's session represents the 15th such session of hyperbaric oxygen therapy. The patient appears to be tolerating HBO therapy well. Tolerance of hyperbaric oxygen therapy: Hyperbaric oxygen therapy was administered as per the facility's protocol. The patient tolerated hyperbaric oxygen therapy well, without complaints or complications. Upon emergence from the hyperbaric chamber, the patient's vital signs remained stable. He was discharged in good condition. 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) Patient is on Coumadin for PE Chronic osteomyelitis of left tibia (Chronic) chronic osteomyelitis left tibia at BKA stump 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) Pain of amputation stump of left lower extremity (Chronic) Dermatitis (Chronic) CAD (coronary artery disease) (Chronic) Osteomyelitis of left lower extremity (Chronic) Pain of left anterior lower extremity (Chronic) Amputation, traumatic, leg (Chronic) HTN (hypertension) (Chronic) Hypertension (Chronic) Peripheral arterial disease (Chronic) SVT (supraventricular tachycardia) (Chronic) Hypercoagulable state (Chronic) Wound, surgical, nonhealing (Chronic) Ischemic ulcer of right foot (Chronic) Allergies/Adverse Reactions: Allergies Penicillins Allergy (Verified 06/25/18 09:29) Swelling adhesive tape Adverse Reaction (Verified 06/25/18 09:29) Rash Home Medications: Ambulatory Orders Medication Instructions Recorded Atorvastatin Calcium [Lipitor] 40 mg PO QHS 04/03/18 Carvedilol 12.5 mg PO DAILY 04/03/18 Apixaban [Eliquis] 5 mg PO BID #60 tab 05/28/18 Diazepam [Valium] 5 mg PO 4X/DAY PRN #30 tab 05/30/18 Docusate Sodium [Colace] 100 mg PO BID #60 cap 05/30/18 Iron Polysaccharide Complex 150 mg PO DAILYCM #30 cap 05/30/18 [Ferrex 150] Mupirocin [Bactroban] 1 applic TOPICAL .QDAILY #2 tube 05/30/18 Smz/Tmp Ds [Bactrim Ds] 1 tab PO BIDCM #28 tab 05/30/18 gabapentin 300 mg capsule 1,800 mg PO BID #360 cap 06/28/18 amlodipine 2.5 mg tablet 2.5 mg PO DAILY #30 tab 07/13/18 levofloxacin 500 mg tablet 500 mg PO DAILY 07/13/18 sertraline 25 mg tablet 25 mg PO DAILY PRN 07/13/18 Maternal Family History: Family History (Last Reviewed 07/13/18 @ 10:48 by Mila Taveras) Other CVA (cerebral vascular accident) Cancer Heart disease Family History: Cancer, Diabetes, Heart Disease, Renal Disease Paternal Family History: Family History (Last Reviewed 07/13/18 @ 10:48 by Mila Taveras) Other CVA (cerebral vascular accident) Cancer Heart disease Family History: Cancer Smoking Status: Former smoker Physical Exam Vital Signs Temp Pulse Resp BP 97.5 F L 75 18 96/51 L 07/24/18 09:22 07/24/18 09:22 07/24/18 09:22 07/24/18 09:22 General: Alert, Oriented x3, Cooperative, No apparent distress, Well developed, Well nourished HEENT: Atraumatic, PERRLA, EOMI, Normocephalic Lungs: Normal air movement Psych/Mental Status: Normal Affect, Appropriate, Alert and oriented to time, place, person, mood and affect Assessment/Plan Active Problems (Last Reviewed 07/13/18 @ 10:48 by Mila Taveras) Partial loss of skin graft (Acute) Methicillin resistant Staphylococcus aureus infection (Chronic) Personal history of osteomyelitis (Chronic) 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
[2018-07-25 08:20] VITALS: BP 100/69; BP 128/90; PULSE 74; PULSE 87; RESP 16; RESP 18; TEMP 36.4; TEMP 36.6
--- NOTE | 2018-07-25 08:21 | HBO.PN.PCM_ITS ---
History of Present Illness Presenting Chief Complaint: Nonhealing ulcer left BKA stump with recent surgical closure 05/25/18 and mild skin graft/flap compromise. JANIE CHIN is a 52 year old currently undergoing hyperbaric oxygen therapy for nonhealing ulcer left BKA stump with recent surgical closure 05/25/18 and mild skin graft/flap compromise. Progress: Today's session represents the 16th such session of hyperbaric oxygen therapy. The patient appears to be tolerating HBO therapy well. Tolerance of hyperbaric oxygen therapy: Hyperbaric oxygen therapy was administered as per the facility's protocol. The patient tolerated hyperbaric oxygen therapy well, without complaints or complications. Upon emergence from the hyperbaric chamber, the patient's vital signs remained stable. He was discharged in good condition. 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) Patient is on Coumadin for PE Chronic osteomyelitis of left tibia (Chronic) chronic osteomyelitis left tibia at BKA stump 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) Pain of amputation stump of left lower extremity (Chronic) Dermatitis (Chronic) CAD (coronary artery disease) (Chronic) Osteomyelitis of left lower extremity (Chronic) Pain of left anterior lower extremity (Chronic) Amputation, traumatic, leg (Chronic) HTN (hypertension) (Chronic) Hypertension (Chronic) Peripheral arterial disease (Chronic) SVT (supraventricular tachycardia) (Chronic) Hypercoagulable state (Chronic) Wound, surgical, nonhealing (Chronic) Ischemic ulcer of right foot (Chronic) Allergies/Adverse Reactions: Allergies Penicillins Allergy (Verified 06/25/18 09:29) Swelling adhesive tape Adverse Reaction (Verified 06/25/18 09:29) Rash Home Medications: Ambulatory Orders Medication Instructions Recorded Atorvastatin Calcium [Lipitor] 40 mg PO QHS 04/03/18 Carvedilol 12.5 mg PO DAILY 04/03/18 Apixaban [Eliquis] 5 mg PO BID #60 tab 05/28/18 Diazepam [Valium] 5 mg PO 4X/DAY PRN #30 tab 05/30/18 Docusate Sodium [Colace] 100 mg PO BID #60 cap 05/30/18 Iron Polysaccharide Complex 150 mg PO DAILYCM #30 cap 05/30/18 [Ferrex 150] Mupirocin [Bactroban] 1 applic TOPICAL .QDAILY #2 tube 05/30/18 Smz/Tmp Ds [Bactrim Ds] 1 tab PO BIDCM #28 tab 05/30/18 gabapentin 300 mg capsule 1,800 mg PO BID #360 cap 06/28/18 amlodipine 2.5 mg tablet 2.5 mg PO DAILY #30 tab 07/13/18 levofloxacin 500 mg tablet 500 mg PO DAILY 07/13/18 sertraline 25 mg tablet 25 mg PO DAILY PRN 07/13/18 Maternal Family History: Family History (Last Reviewed 07/13/18 @ 10:48 by Mila Taveras) Other CVA (cerebral vascular accident) Cancer Heart disease Family History: Cancer, Diabetes, Heart Disease, Renal Disease Paternal Family History: Family History (Last Reviewed 07/13/18 @ 10:48 by Mila Taveras) Other CVA (cerebral vascular accident) Cancer Heart disease Family History: Cancer Smoking Status: Former smoker Physical Exam Vital Signs Temp Pulse Resp BP 97.5 F L 75 18 96/51 L 07/24/18 09:22 07/24/18 09:22 07/24/18 09:22 07/24/18 09:22 General: Alert, Oriented x3, Cooperative, No apparent distress HEENT: Atraumatic, Normocephalic Lungs: Normal air movement Psych/Mental Status: Normal Affect Assessment/Plan Active Problems (Last Reviewed 07/13/18 @ 10:48 by Mila Taveras) Partial loss of skin graft (Acute) Methicillin resistant Staphylococcus aureus infection (Chronic) Personal history of osteomyelitis (Chronic) 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
--- NOTE | 2018-07-26 08:13 | HBO.PN.PCM_ITS ---
History of Present Illness Presenting Chief Complaint: Nonhealing ulcer left BKA stump with recent surgical closure 05/25/18 and mild skin graft/flap compromise. JANIE CHIN is a 52 year old currently undergoing hyperbaric oxygen therapy for nonhealing ulcer left BKA stump with recent surgical closure 05/25/18 and mild skin graft/flap compromise. Progress: Today's session represents the 17th such session of hyperbaric oxygen therapy. The patient appears to be tolerating HBO therapy well. Tolerance of hyperbaric oxygen therapy: Hyperbaric oxygen therapy was administered as per the facility's protocol. The patient tolerated hyperbaric oxygen therapy well, without complaints or complications. Upon emergence from the hyperbaric chamber, the patient's vital signs remained stable. He was discharged in good condition. 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) Patient is on Coumadin for PE Chronic osteomyelitis of left tibia (Chronic) chronic osteomyelitis left tibia at BKA stump 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) Pain of amputation stump of left lower extremity (Chronic) Dermatitis (Chronic) CAD (coronary artery disease) (Chronic) Osteomyelitis of left lower extremity (Chronic) Pain of left anterior lower extremity (Chronic) Amputation, traumatic, leg (Chronic) HTN (hypertension) (Chronic) Hypertension (Chronic) Peripheral arterial disease (Chronic) SVT (supraventricular tachycardia) (Chronic) Hypercoagulable state (Chronic) Wound, surgical, nonhealing (Chronic) Ischemic ulcer of right foot (Chronic) Allergies/Adverse Reactions: Allergies Penicillins Allergy (Verified 06/25/18 09:29) Swelling adhesive tape Adverse Reaction (Verified 06/25/18 09:29) Rash Home Medications: Ambulatory Orders Medication Instructions Recorded Atorvastatin Calcium [Lipitor] 40 mg PO QHS 04/03/18 Carvedilol 12.5 mg PO DAILY 04/03/18 Apixaban [Eliquis] 5 mg PO BID #60 tab 05/28/18 Diazepam [Valium] 5 mg PO 4X/DAY PRN #30 tab 05/30/18 Docusate Sodium [Colace] 100 mg PO BID #60 cap 05/30/18 Iron Polysaccharide Complex 150 mg PO DAILYCM #30 cap 05/30/18 [Ferrex 150] Mupirocin [Bactroban] 1 applic TOPICAL .QDAILY #2 tube 05/30/18 Smz/Tmp Ds [Bactrim Ds] 1 tab PO BIDCM #28 tab 05/30/18 gabapentin 300 mg capsule 1,800 mg PO BID #360 cap 06/28/18 amlodipine 2.5 mg tablet 2.5 mg PO DAILY #30 tab 07/13/18 levofloxacin 500 mg tablet 500 mg PO DAILY 07/13/18 sertraline 25 mg tablet 25 mg PO DAILY PRN 07/13/18 Maternal Family History: Family History (Last Reviewed 07/13/18 @ 10:48 by Mila Taveras) Other CVA (cerebral vascular accident) Cancer Heart disease Family History: Cancer, Diabetes, Heart Disease, Renal Disease Paternal Family History: Family History (Last Reviewed 07/13/18 @ 10:48 by Mila Taveras) Other CVA (cerebral vascular accident) Cancer Heart disease Family History: Cancer Smoking Status: Former smoker Physical Exam Vital Signs Temp Pulse Resp BP 97.9 F 87 18 100/69 07/25/18 08:20 07/25/18 08:20 07/25/18 08:20 07/25/18 08:20 General: Alert, Oriented x3, Cooperative, No apparent distress HEENT: Atraumatic, Normocephalic Lungs: Clear to auscultation, Normal air movement Cardiovascular: Regular rate Psych/Mental Status: Normal Affect Assessment/Plan Active Problems (Last Reviewed 07/13/18 @ 10:48 by Mila Taveras) Partial loss of skin graft (Acute) Methicillin resistant Staphylococcus aureus infection (Chronic) Personal history of osteomyelitis (Chronic) [employer]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
[2018-07-26 08:19] VITALS: BP 109/68; BP 121/70; PULSE 103; PULSE 63; RESP 16; RESP 18; TEMP 36.4
== END 2018-07-26 23:59 ==
LOC: WC 08:00
PROVIDERS: Family Provider Internal Medicine; PCP Internal Medicine; Visit Provider Surgery
DX: T81.30XA Disruption of wound, unspecified, initial encounter (principal); Y83.8 Other surgical procedures as the cause of abnormal reaction of the patient, or of later complication, without mention of misadventure at the time of the procedure; Z86.14 Personal history of Methicillin resistant Staphylococcus aureus infection; M79.89 Other specified soft tissue disorders; Z89.512 Acquired absence of left leg below knee; Z86.711 Personal history of pulmonary embolism; Z86.718 Personal history of other venous thrombosis and embolism; T86.828 Other complications of skin graft (allograft) (autograft); Z87.891 Personal history of nicotine dependence; Z79.01 Long term (current) use of 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s
CPT/HCPCS: 11042; 11045; 80048; 99183; G0277

== ENCOUNTER 2018-08-17 14:00 | Outpatient (RCR) | payer OTHER, SELFPAY ==
[2018-07-23 10:17] VITALS: BMI 24.5
[2018-07-27 01:31] VITALS: BP 121/70; PULSE 63; RESP 16; TEMP 36.4
[2018-07-30 08:04] VITALS: BP 134/82; PULSE 86; RESP 18; TEMP 36.6; BMI 24.5
[2018-07-30 08:47] VITALS: BP 128/76; BP 134/82; PULSE 63; PULSE 86; RESP 18; TEMP 36.2; TEMP 36.6
--- NOTE | 2018-07-30 17:31 | PN.PCM_ITS ---
Type of Wound Date of Service: 07/30/18 Chief Complaint: Nonhealing ulcer left BKA stump with recent surgical closure 05/25/18 and mild skin graft/flap compromise. History of Wound: Surgery 05/25/18 - 1. Surgical preparation left BKA stump with excisional debridement nonhealing infected ulcer. 2. Complex secondary wound closure revision reconstruction with re-advancement muscle flap and bipedicle anterior leg fasciocutaneous advancement flap and STSG from the left flank (60 cm2). Surgery 04/05/18 - 1. Surgical preparation left BKA stump with incision and drainage and excisional debridement nonhealing infected ulcer. 2. Partial ostectomy tibia for osteomyelitis. Wound care - Silver. Awaiting approval for Santyl. Operative culture - MRSA. Soft tissue from 04/05/18 surgery - negative. Bone from 04/05/18 surgery - negative. Pathology from 04/05/18 surgery - negative for ostemyelitis. He was discharged on Bactrim DS. He has since finished the Bactrim DS. Initially perioperatively he was on Vancomycin. His Creatinine increased to 1.70 and the Vancomycin was stopped. At discharge his Creatinine had decreased to 1.49. He had Creatinine rechecked on 06/29/18 which was 1.96. Repeat Creatinine on 07/20/18 has decreased to 1.31. He had another wound culture done on 06/18/18 which showed Pseudomonas aeroginosa. He was placed on Levaquin and is finishing them. Prealbumin from 05/26/18 was 17.5. Encourage nutritional supplementation with protein to help the healing process. MRI left BKA stump in 10/13 showed osteomyelitis. He changed his anticoagulation medication and stopped the Coumadin and started Eliquis. Today he denies fever. His appetite is good. With his early compromise to the skin graft/flap, he has started HBO treatments to help salvage the compromised graft/flap and is tolerating them thus far. Progress of Wound: Surgery 05/25/18 with mild skin graft/flap compromise. - Physical Exam Vital Signs Temp Pulse Resp BP 97.1 F L 63 18 128/76 H 07/30/18 08:47 07/30/18 08:47 07/30/18 08:47 07/30/18 08:47 Wound Measurements and Assessment WC - Nurse 1 - General Ulcer Measurement Start: 07/30/18 08:04 Freq: Status: Active Protocol: Activity Type Activity Date Activity User E-Sign Co-Sign Detail Recorded Client Recorded Date Recorded By Document 07/30/18 08:04 AN [id number] 07/30/18 08:11 AN 07/30/18 08:04 Wound Center Nurse 1 [Ulcer Assessment] #5 L BKA stump -Current Size (cm) - Length 5 -Current Size (cm) - Width 9 -Current Size (cm) - Depth 0.1 -Total Square Cm 45 -Photo Taken No -Tunneling No -Undermining/Tunneling No -Circular Undermining No -Classification - Thickness Full Thickness without Exposed Support Structure -Wound Margin Distinct, Outline Attached -Granulation Amt Medium (34-66%) -Granulation Quality Red -Slough/Fibrin Yes -Necrosis Amt Medium (34-66%) -Necrotic Tissue Type Adherent Slough -Structure Exposed None/Limited to Skin Breakdown -Texture (Ami-wound Skin Appearance) Assessed Localized Edema Scarring -Moisture (Ami-wound Skin Appearance Assessed ) -Color (Ami-wound Skin Appearance) Assessed Erythema -Temperature (Ami-wound Skin No Abnormality Appearance) (Pt Warm) -Tenderness on Palpation (Ami-wound Yes Skin Appearance) -Ulcer Cleansing Rinsed/ Irrigated with Saline -Foul Odor after Cleansing No -Anesthetic Used 4% Lidocaine Solution 5% Lidocaine Gel [Edema Assessment] -Left Calf (cm) 37.9 WC - Nurse 2 - General Ulcer CM Notes Start: 07/30/18 08:04 Freq: Status: Active Protocol: Activity Type Activity Date Activity User E-Sign Co-Sign Detail Recorded Client Recorded Date Recorded By Document 07/30/18 08:15 [email or web address] 07/30/18 08:21 07/30/18 08:15 Wound Center Nurse 2 [Procedure/Treatment] #5 L BKA stump -Time 08:16 -Correct Patient Yes -Correct Side, Site, Position Yes -Correct Procedure Yes -Procedure Performed Yes -Type of Procedure Debridement -Clinical Debridement Subcutaneous -Post Debridement Size (cm) - Length 5 -Post Debridement Size (cm) - Width 9.1 -Post Debridement Size (cm) - Depth 0.3 -Total Square Cm 45.5 -Wound/Ulcer Outcome Not Healed -Ulcer Cleansing Rinsed/ Irrigated with Saline -Foul Odor after Cleansing No -Bioengineered Tissue No -Bleeding Controlled with Pressure -Offloading No -Treatment Response Procedure Tolerated Well [See Physician Procedure note for Specifics] Pain Scale: 0-10 Numeric [Pain] -Is Patient Pain Free? Yes Debridement Note Post-Debridement Measurements/Treatment WC - Nurse 2 - General Ulcer CM Notes Start: 07/30/18 08:04 Freq: Status: Active Protocol: Activity Type Activity Date Activity User E-Sign Co-Sign Detail Recorded Client Recorded Date Recorded By Document 07/30/18 08:15 [email or web address] 07/30/18 08:21 07/30/18 08:15 Wound Center Nurse 2 #5 L BKA stump -Time 08:16 -Correct Patient Yes -Correct Side, Site, Position Yes -Correct Procedure Yes -Procedure Performed Yes -Type of Procedure Debridement -Clinical Debridement Subcutaneous -Post Debridement Size (cm) - Length 5 -Post Debridement Size (cm) - Width 9.1 -Post Debridement Size (cm) - Depth 0.3 -Total Square Cm 45.5 -Wound/Ulcer Outcome Not Healed -Ulcer Cleansing Rinsed/ Irrigated with Saline -Foul Odor after Cleansing No -Bioengineered Tissue No -Bleeding Controlled with Pressure -Offloading No -Treatment Response Procedure Tolerated Well Pain Scale: 0-10 Numeric Is Patient Pain Free? Yes Wound debrided: #5 Left BKA stump. Laterality: Left Wound Grade/Stage: 4. Type of Debridement: Excisional debridement Anesthesia Used: 4% Lidocaine Solution Depth: Down to and including healthy tissue, in the subcutaneous layer Percentage of wound debrided: 100 Instrument Used: 5mm curette Tissue Removed: subcutaneous tissue. Severity: Fat Layer Exposed Amount of bleeding with debridement: Mild Bleeding Controlled with: Pressure Patient tolerated procedure well Assessment/Plan Active Problems (Last Reviewed 07/13/18 @ 10:48 by Mila Taveras) Partial loss of skin graft (Acute) 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) Assessment: 1. Nonhealing ulcer left BKA stump with recent surgical closure 05/25/18. 2. Pain left BKA stump. 3. MRSA. 4. 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 5. 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 6. retirement use of anticoagulation. 7. Early skin graft/flap compromise left BKA stump, (20% compromise). 8. s/p surgical preparation left BKA stump with excisional debridement nonhealing infected ulcer and complex secondary wound closure revision reconstruction with re-advancement muscle flap and bipedicle anterior leg fasciocutaneous advancement flap and STSG from the left flank (60 cm2). 9. JUAN (acute kidney injury), probable medication related, resolving. Plan: Continue Silver dressing changes daily. There is an increased biofilm, so will change to Santyl once it has been approved. After more healing is seen, will consider placement of placental connective tissue graft (Epifix) or Thera- skin. He has finished the Bactrim DS for MRSA. He is finishing the Levaquin for Pseudomonas aeroginosa. The skin graft shows good adherence and about 90% take and good vascular ingrowth. There is some mild compromise at the edges of the skin graft (about 10% compromise). Less moisture present. The stump incision shows some superficial wound separation. The stump is soft with mild swelling that is resolving. The central aspect of the stump anteriorly shows some mild compromise. After debridement, the underlying subcutaneous tissue appears viable. With the mild skin graft/flap compromise (about 20% total), he started HBO treatments which would help salvage the compromised graft/flap. He is tolerating the HBO treatments thus far. Prealbumin from the hospital was 17.5. Encourage nutritional supplementation with protein to help the healing process. After his last surgery in April, he had been on Vancomycin for a day which was stopped when his Creatinine increased to 1.70. It then decreased down to 1.49 before increasing back up to 1.96 and then most recently decreased back to 1.31 on 07/20/18. Encourage hydration. He has returned to work and is doing ok. Discussed with the patient that the presence of MRSA and Pseudomonas can be destructive to the surrounding tissue leading to suboptimal healing. Followup one week.
--- NOTE | 2018-07-30 17:47 | PCM.HBO.PN ---
History of Present Illness Date of Service: 07/30/18 Presenting Chief Complaint: Nonhealing ulcer left BKA stump with recent surgical closure 05/25/18 and mild skin graft/flap compromise. JANIE CHIN is a 52 year old currently undergoing hyperbaric oxygen therapy for nonhealing ulcer left BKA stump with recent surgical closure 05/25/18 and mild skin graft/flap compromise. Progress: Today's session represents the th session of hyperbaric oxygen therapy. The patient appears to be tolerating HBO therapy well. Tolerance of hyperbaric oxygen therapy: Hyperbaric oxygen therapy was administered as per the facility's protocol. The patient tolerated hyperbaric oxygen therapy well, without complaints or complications. Upon emergence from the hyperbaric chamber, the patient's vital signs remained stable. He was discharged in good condition. 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) Patient is on Coumadin for PE Chronic osteomyelitis of left tibia (Chronic) chronic osteomyelitis left tibia at BKA stump 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) Pain of amputation stump of left lower extremity (Chronic) Dermatitis (Chronic) CAD (coronary artery disease) (Chronic) Osteomyelitis of left lower extremity (Chronic) Pain of left anterior lower extremity (Chronic) Amputation, traumatic, leg (Chronic) HTN (hypertension) (Chronic) Hypertension (Chronic) Peripheral arterial disease (Chronic) SVT (supraventricular tachycardia) (Chronic) Hypercoagulable state (Chronic) Wound, surgical, nonhealing (Chronic) Ischemic ulcer of right foot (Chronic) Allergies/Adverse Reactions: Allergies Penicillins Allergy (Verified 06/25/18 09:29) Swelling adhesive tape Adverse Reaction (Verified 06/25/18 09:29) Rash Home Medications: Ambulatory Orders Medication Instructions Recorded Atorvastatin Calcium [Lipitor] 40 mg PO QHS 04/03/18 Carvedilol 12.5 mg PO DAILY 04/03/18 Apixaban [Eliquis] 5 mg PO BID #60 tab 05/28/18 Diazepam [Valium] 5 mg PO 4X/DAY PRN #30 tab 05/30/18 Docusate Sodium [Colace] 100 mg PO BID #60 cap 05/30/18 Iron Polysaccharide Complex 150 mg PO DAILYCM #30 cap 05/30/18 [Ferrex 150] Mupirocin [Bactroban] 1 applic TOPICAL .QDAILY #2 tube 05/30/18 Smz/Tmp Ds [Bactrim Ds] 1 tab PO BIDCM #28 tab 05/30/18 gabapentin 300 mg capsule 1,800 mg PO BID #360 cap 06/28/18 amlodipine 2.5 mg tablet 2.5 mg PO DAILY #30 tab 07/13/18 levofloxacin 500 mg tablet 500 mg PO DAILY 07/13/18 sertraline 25 mg tablet 25 mg PO DAILY PRN 07/13/18 Maternal Family History: Family History (Last Reviewed 07/13/18 @ 10:48 by Mila Taveras) Other CVA (cerebral vascular accident) Cancer Heart disease Family History: Cancer, Diabetes, Heart Disease, Renal Disease Paternal Family History: Family History (Last Reviewed 07/13/18 @ 10:48 by Mila Taveras) Other CVA (cerebral vascular accident) Cancer Heart disease Family History: Cancer Smoking Status: Former smoker Physical Exam Vital Signs Temp Pulse Resp BP 97.1 F L 63 18 128/76 H 07/30/18 08:47 07/30/18 08:47 07/30/18 08:47 07/30/18 08:47 Assessment/Plan Active Problems (Last Reviewed 07/13/18 @ 10:48 by Mila Taveras) Partial loss of skin graft (Acute) 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)
[2018-07-31 10:06] VITALS: BP 113/76; BP 129/67; PULSE 62; PULSE 88; RESP 16; RESP 18; TEMP 36.4; TEMP 36.5
--- NOTE | 2018-07-31 13:03 | PCM.HBO.PN ---
History of Present Illness Presenting Chief Complaint: Nonhealing ulcer left BKA stump with recent surgical closure 05/25/18 and mild skin graft/flap compromise. JANIE CHIN is a 52 year old currently undergoing hyperbaric oxygen therapy for nonhealing ulcer left BKA stump with recent surgical closure 05/25/18 and mild skin graft/flap compromise. Progress: Patient appears to be tolerating hyperbaric oxygen therapy well. Today represents the 20th such session of hyperbaric oxygen therapy. Tolerance of hyperbaric oxygen therapy: Hyperbaric oxygen therapy was administered as per the facility's protocol. The patient tolerated hyperbaric oxygen therapy well, without complaints or complications. Upon emergence from the hyperbaric chamber, patient's vital signs remained stable. Patient was discharged in good condition. 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) Patient is on Coumadin for PE Chronic osteomyelitis of left tibia (Chronic) chronic osteomyelitis left tibia at BKA stump 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) Pain of amputation stump of left lower extremity (Chronic) Dermatitis (Chronic) CAD (coronary artery disease) (Chronic) Osteomyelitis of left lower extremity (Chronic) Pain of left anterior lower extremity (Chronic) Amputation, traumatic, leg (Chronic) HTN (hypertension) (Chronic) Hypertension (Chronic) Peripheral arterial disease (Chronic) SVT (supraventricular tachycardia) (Chronic) Hypercoagulable state (Chronic) Wound, surgical, nonhealing (Chronic) Ischemic ulcer of right foot (Chronic) Allergies/Adverse Reactions: Allergies Penicillins Allergy (Verified 06/25/18 09:29) Swelling adhesive tape Adverse Reaction (Verified 06/25/18 09:29) Rash Home Medications: Ambulatory Orders Medication Instructions Recorded Atorvastatin Calcium [Lipitor] 40 mg PO QHS 04/03/18 Carvedilol 12.5 mg PO DAILY 04/03/18 Apixaban [Eliquis] 5 mg PO BID #60 tab 05/28/18 Diazepam [Valium] 5 mg PO 4X/DAY PRN #30 tab 05/30/18 Docusate Sodium [Colace] 100 mg PO BID #60 cap 05/30/18 Iron Polysaccharide Complex 150 mg PO DAILYCM #30 cap 05/30/18 [Ferrex 150] Mupirocin [Bactroban] 1 applic TOPICAL .QDAILY #2 tube 05/30/18 Smz/Tmp Ds [Bactrim Ds] 1 tab PO BIDCM #28 tab 05/30/18 gabapentin 300 mg capsule 1,800 mg PO BID #360 cap 06/28/18 amlodipine 2.5 mg tablet 2.5 mg PO DAILY #30 tab 07/13/18 levofloxacin 500 mg tablet 500 mg PO DAILY 07/13/18 sertraline 25 mg tablet 25 mg PO DAILY PRN 07/13/18 Maternal Family History: Family History (Last Reviewed 07/13/18 @ 10:48 by Mila Taveras) Other CVA (cerebral vascular accident) Cancer Heart disease Family History: Cancer, Diabetes, Heart Disease, Renal Disease Paternal Family History: Family History (Last Reviewed 07/13/18 @ 10:48 by Mila Taveras) Other CVA (cerebral vascular accident) Cancer Heart disease Family History: Cancer Smoking Status: Former smoker Physical Exam Vital Signs Temp Pulse Resp BP 97.5 F L 62 18 129/67 H 07/31/18 10:06 07/31/18 10:06 07/31/18 10:06 07/31/18 10:06 General: Alert, Oriented x3, Cooperative, No apparent distress, Well developed, Well nourished HEENT: Atraumatic, PERRLA, EOMI, Normocephalic Lungs: Normal air movement Psych/Mental Status: Normal Affect, Appropriate, Alert and oriented to time, place, person, mood and affect Assessment/Plan The patient appears to be tolerating hyperbaric oxygen therapy well, which will be continued as per the patient's medical plan.
[2018-08-01 08:36] VITALS: BP 109/67; BP 124/76; PULSE 60; PULSE 62; RESP 16; RESP 18; TEMP 36.2; TEMP 36.3
--- NOTE | 2018-08-01 09:20 | PCM.HBO.PN ---
History of Present Illness Date of Service: 08/01/18 Presenting Chief Complaint: Nonhealing ulcer left BKA stump with recent surgical closure 05/25/18 and mild skin graft/flap compromise. JANIE CHIN is a 52 year old currently undergoing hyperbaric oxygen therapy for nonhealing ulcer left BKA stump with recent surgical closure 05/25/18 and mild skin graft/flap compromise. Progress: Patient appears to be tolerating hyperbaric oxygen therapy well. Today represents the 21st such session of hyperbaric oxygen therapy. Tolerance of hyperbaric oxygen therapy: Hyperbaric oxygen therapy was administered as per the facility's protocol. The patient tolerated hyperbaric oxygen therapy well, without complaints or complications. Upon emergence from the hyperbaric chamber, patient's vital signs remained stable. Patient was discharged in good condition. 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) Patient is on Coumadin for PE Chronic osteomyelitis of left tibia (Chronic) chronic osteomyelitis left tibia at BKA stump 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) Pain of amputation stump of left lower extremity (Chronic) Dermatitis (Chronic) CAD (coronary artery disease) (Chronic) Osteomyelitis of left lower extremity (Chronic) Pain of left anterior lower extremity (Chronic) Amputation, traumatic, leg (Chronic) HTN (hypertension) (Chronic) Hypertension (Chronic) Peripheral arterial disease (Chronic) SVT (supraventricular tachycardia) (Chronic) Hypercoagulable state (Chronic) Wound, surgical, nonhealing (Chronic) Ischemic ulcer of right foot (Chronic) Allergies/Adverse Reactions: Allergies Penicillins Allergy (Verified 06/25/18 09:29) Swelling adhesive tape Adverse Reaction (Verified 06/25/18 09:29) Rash Home Medications: Ambulatory Orders Medication Instructions Recorded Atorvastatin Calcium [Lipitor] 40 mg PO QHS 04/03/18 Carvedilol 12.5 mg PO DAILY 04/03/18 Apixaban [Eliquis] 5 mg PO BID #60 tab 05/28/18 Diazepam [Valium] 5 mg PO 4X/DAY PRN #30 tab 05/30/18 Docusate Sodium [Colace] 100 mg PO BID #60 cap 05/30/18 Iron Polysaccharide Complex 150 mg PO DAILYCM #30 cap 05/30/18 [Ferrex 150] Mupirocin [Bactroban] 1 applic TOPICAL .QDAILY #2 tube 05/30/18 Smz/Tmp Ds [Bactrim Ds] 1 tab PO BIDCM #28 tab 05/30/18 gabapentin 300 mg capsule 1,800 mg PO BID #360 cap 06/28/18 amlodipine 2.5 mg tablet 2.5 mg PO DAILY #30 tab 07/13/18 levofloxacin 500 mg tablet 500 mg PO DAILY 07/13/18 sertraline 25 mg tablet 25 mg PO DAILY PRN 07/13/18 Maternal Family History: Family History (Last Reviewed 07/13/18 @ 10:48 by Mila Taveras) Other CVA (cerebral vascular accident) Cancer Heart disease Family History: Cancer, Diabetes, Heart Disease, Renal Disease Paternal Family History: Family History (Last Reviewed 07/13/18 @ 10:48 by Mila Taveras) Other CVA (cerebral vascular accident) Cancer Heart disease Family History: Cancer Smoking Status: Former smoker Physical Exam Vital Signs Temp Pulse Resp BP 97.3 F L 60 18 109/67 08/01/18 08:36 08/01/18 08:36 08/01/18 08:36 08/01/18 08:36 General: Alert, Oriented x3, Cooperative, No apparent distress HEENT: Atraumatic, TM's Clear Lungs: Clear to auscultation, Normal air movement Cardiovascular: Regular rate, Regular Rhythm Psych/Mental Status: Normal Affect, Appropriate, Alert and oriented to time, place, person, mood and affect Assessment/Plan The patient appears to be tolerating hyperbaric oxygen therapy well, which will be continued as per the patient's medical plan.
--- NOTE | 2018-08-06 11:18 | PN.PCM_ITS ---
(1) Ulceration of below knee amputation stump Status: Chronic Current Visit: Yes Code(s): T87.89 - Other complications of amputation stump; L97.809 - Non-pressure chronic ulcer of other part of unspecified lower leg with unspecified severity (2) Partial loss of skin graft Status: Acute Current Visit: Yes Code(s): T86.828 - Other complications of skin graft (allograft) (autograft) (3) Chronic osteomyelitis of left tibia Status: Chronic Current Visit: Yes Code(s): M86.662 - Other chronic osteomyelitis, left tibia and fibula Comment: chronic osteomyelitis left tibia at BKA stump (4) Methicillin resistant Staphylococcus aureus infection Status: Chronic Current Visit: Yes Code(s): A49.02 - Methicillin resistant Staphylococcus aureus infection, unspecified site (5) History of DVT (deep vein thrombosis) Status: Chronic Current Visit: Yes Code(s): Z86.718 - Personal history of ot her venous thrombosis and embolism (6) Status post below knee amputation of left lower extremity Status: Chronic Current Visit: Yes Code(s): Z89.512 - Acquired absence of left leg below knee (7) Former smoker Status: Chronic Current Visit: Yes Code(s): Z87.891 - Personal history of nicotine dependence Type of Wound Date of Service: 08/06/18 Chief Complaint: Nonhealing ulcer left BKA stump with recent surgical closure 05/25/18 and mild skin graft/flap compromise. History of Wound: Surgery 05/25/18 - 1. Surgical preparation left BKA stump with excisional debridement nonhealing infected ulcer. 2. Complex secondary wound closure revision reconstruction with re-advancement muscle flap and bipedicle anterior leg fasciocutaneous advancement flap and STSG from the left flank (60 cm2). Surgery 04/05/18 - 1. Surgical preparation left BKA stump with incision and drainage and excisional debridement nonhealing infected ulcer. 2. Partial ostectomy tibia for osteomyelitis. Wound care - Silver. Awaiting approval for Santyl. Operative culture - MRSA. Soft tissue from 04/05/18 surgery - negative. Bone from 04/05/18 surgery - negative. Pathology from 04/05/18 surgery - negative for ostemyelitis. He was discharged on Bactrim DS. He has since finished the Bactrim DS. Initially perioperatively he was on Vancomycin. His Creatinine increased to 1.70 and the Vancomycin was stopped. At discharge his Creatinine had decreased to 1.49. He had Creatinine rechecked on 06/29/18 which was 1.96. Repeat Creatinine on 07/20/18 has decreased to 1.31. He had another wound culture done on 06/18/18 which showed Pseudomonas aeroginosa. He was placed on Levaquin and is finishing them. Prealbumin from 05/26/18 was 17.5. Encourage nutritional supplementation with protein to help the healing process. MRI left BKA stump in 10/13 showed osteomyelitis. He changed his anticoagulation medication and stopped the Coumadin and started Eliquis. Today he denies fever. His appetite is good. With his early compromise to the skin graft/flap, he has started HBO treatments to help salvage the compromised graft/flap and is tolerating them thus far. Progress of Wound: Surgery 05/25/18 with mild skin graft/flap compromise. - Physical Exam Vital Signs Temp Pulse Resp BP 97.2 F L 62 16 124/76 H 08/01/18 08:36 08/01/18 08:36 08/01/18 08:36 08/01/18 08:36 General: Alert, Oriented x3, Cooperative HEENT: Atraumatic Oral: Moist Mucosa Lungs: Clear to auscultation, Normal air movement Cardiovascular: Regular rate, Regular Rhythm Extremities: No edema, Capillary Refill Less than 3 Seconds Skin: Ulcer/ Wound - Left BKA ulcer below skin graft. Ulcer with significant amount of biofilm. Musculoskeletal: No Tenderness to Palpation of Joints or Extremities Neurological: Neuro grossly intact Psych/Mental Status: Normal Affect, Appropriate Debridement Note Post-Debridement Measurements/Treatment WC - Nurse 2 - General Ulcer CM Notes Start: 07/30/18 08:04 Freq: Status: Active Protocol: Activity Type Activity Date Activity User E-Sign Co-Sign Detail Recorded Client Recorded Date Recorded By Document 07/30/18 08:15 FLAVIA [id number] 07/30/18 08:21 FLAVIA 07/30/18 08:15 Wound Center Nurse 2 #5 L BKA stump -Time 08:16 -Correct Patient Yes -Correct Side, Site, Position Yes -Correct Procedure Yes -Procedure Performed Yes -Type of Procedure Debridement -Clinical Debridement Subcutaneous -Post Debridement Size (cm) - Length 5 -Post Debridement Size (cm) - Width 9.1 -Post Debridement Size (cm) - Depth 0.3 -Total Square Cm 45.5 -Wound/Ulcer Outcome Not Healed -Ulcer Cleansing Rinsed/ Irrigated with Saline -Foul Odor after Cleansing No -Bioengineered Tissue No -Bleeding Controlled with Pressure -Offloading No -Treatment Response Procedure Tolerated Well Pain Scale: 0-10 Numeric Is Patient Pain Free? Yes Wound debrided: Left BKA Laterality: Left Type of Debridement: Excisional debridement Anesthesia Used: 4% Lidocaine Solution Depth: Down to and including healthy tissue, in the subcutaneous layer Percentage of wound debrided: 100 Instrument Used: 7mm curette Tissue Removed: Subcutaneous tissue and slough Severity: Fat Layer Exposed Amount of bleeding with debridement: Mild Bleeding Controlled with: Compression and gauze Patient tolerated procedure well There is significant amount of biofilm that is difficult to remove. Assessment/Plan Active Problems (Last Reviewed 07/13/18 @ 10:48 by Mila Taveras) Partial loss of skin graft (Acute) Methicillin resistant Staphylococcus aureus infection (Chronic) History of DVT (deep vein thrombosis) (Chronic) 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) Former smoker (Chronic) Chronic osteomyelitis of left tibia (Chronic) chronic osteomyelitis left tibia at BKA stump 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) Assessment: 1. Nonhealing ulcer left BKA stump with recent surgical closure 05/25/18. 2. Pain left BKA stump. 3. MRSA. 4. 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 5. 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 7. Early skin graft/flap compromise left BKA stump, (20% compromise). 8. s/p surgical preparation left BKA stump with excisional debridement nonhealing infected ulcer and complex secondary wound closure revision reconstruction with re-advancement muscle flap and bipedicle anterior leg fasciocutaneous advancement flap and STSG from the left flank (60 cm2). 9. JUAN (acute kidney injury), probable medication related, resolving. Plan: Continue Silver dressing changes daily. There is an increased biofilm, so will change to Santyl once it has been approved. After more healing is seen, will consider placement of placental connective tissue graft (Epifix) or Thera- skin. He has finished the Bactrim DS for MRSA. He is finishing the Levaquin for Pseudomonas aeroginosa. The skin graft shows good adherence and about 90% take and good vascular ingrowth. There is some mild compromise at the edges of the skin graft (about 10% compromise). Less moisture present. The stump incision shows some superficial wound separation. The stump is soft with mild swelling that is resolving. The central aspect of the stump anteriorly shows some mild compromise. After debridement, the underlying subcutaneous tissue appears viable. With the mild skin graft/flap compromise (about 20% total), he started HBO treatments which would help salvage the compromised graft/flap. He has some odor from the ulcer, will culture it today. He may require antibiotics if there is bacterial growth. He is tolerating the HBO treatments thus far. Prealbumin from the hospital was 17.5. Encourage nutritional supplementation with protein to help the healing process. After his last surgery in April, he had been on Vancomycin for a day which was stopped when his Creatinine increased to 1.70. It then decreased down to 1.49 before increasing back up to 1.96 and then most recently decreased back to 1.31 on 07/20/18. Encourage hydration. He has returned to work and is doing ok. Discussed with the patient that the presence of MRSA and Pseudomonas can be destructive to the surrounding tissue leading to suboptimal healing. Followup one week. Code Visit [id number]
[2018-08-13 08:02] VITALS: BMI 23.2
[2018-08-15 15:45] VITALS: BP 144/84; BP 147/91; PULSE 67; PULSE 87; RESP 16; RESP 18; TEMP 36.4
[2018-08-16 13:40] VITALS: BP 149/107; BP 152/90; PULSE 111; PULSE 67; RESP 16; RESP 18; TEMP 36.2; TEMP 36.5
--- NOTE | 2018-08-16 17:16 | PCM.HBO.PN ---
History of Present Illness Date of Service: 08/16/18 Presenting Chief Complaint: Nonhealing ulcer left BKA stump with recent surgical closure 05/25/18 and mild skin graft/flap compromise. JANIE CHIN is a 52 year old currently undergoing hyperbaric oxygen therapy for nonhealing ulcer left BKA stump with recent surgical closure 05/25/18 and mild skin graft/flap compromise. Progress: Today's session represents the 31th session of hyperbaric oxygen therapy. The patient appears to be tolerating HBO therapy well. Tolerance of hyperbaric oxygen therapy: Hyperbaric oxygen therapy was administered as per the facility's protocol. The patient tolerated hyperbaric oxygen therapy well, without complaints or complications. Upon emergence from the hyperbaric chamber, the patient's vital signs remained stable. He was discharged in good condition. 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 (Chronic) half-way current use of 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 (Chronic) Patient is on Coumadin for PE Chronic osteomyelitis of left tibia (Chronic) chronic osteomyelitis left tibia at BKA stump 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) Pain of amputation stump of left lower extremity (Chronic) Dermatitis (Chronic) CAD (coronary artery disease) (Chronic) Osteomyelitis of left lower extremity (Chronic) Pain of left anterior lower extremity (Chronic) Amputation, traumatic, leg (Chronic) HTN (hypertension) (Chronic) Hypertension (Chronic) Peripheral arterial disease (Chronic) SVT (supraventricular tachycardia) (Chronic) Hypercoagulable state (Chronic) Wound, surgical, nonhealing (Chronic) Ischemic ulcer of right foot (Chronic) Allergies/Adverse Reactions: Allergies Penicillins Allergy (Verified 08/10/18 10:05) Swelling adhesive tape Adverse Reaction (Verified 08/10/18 10:05) Rash Home Medications: Ambulatory Orders Medication Instructions Recorded Atorvastatin Calcium [Lipitor] 40 mg PO QHS 04/03/18 Carvedilol 12.5 mg PO DAILY 04/03/18 Diazepam [Valium] 5 mg PO 4X/DAY PRN #30 tab 05/30/18 Docusate Sodium [Colace] 100 mg PO BID #60 cap 05/30/18 Iron Polysaccharide Complex 150 mg PO DAILYCM #30 cap 05/30/18 [Ferrex 150] Mupirocin [Bactroban] 1 applic TOPICAL .QDAILY #2 tube 05/30/18 gabapentin 300 mg capsule 1,800 mg PO BID #360 cap 06/28/18 levofloxacin 500 mg tablet 500 mg PO DAILY 07/13/18 sertraline 25 mg tablet 25 mg PO DAILY PRN 07/13/18 amlodipine 2.5 mg tablet 2.5 mg PO DAILY #30 tab 08/10/18 apixaban 5 mg tablet 5 mg PO BID #60 tab 08/10/18 Maternal Family History: Family History (Last Reviewed 08/10/18 @ 10:08 by Aleja Lutz) Other CVA (cerebral vascular accident) Cancer Heart disease Family History: Cancer, Diabetes, Heart Disease, Renal Disease Paternal Family History: Family History (Last Reviewed 08/10/18 @ 10:08 by Aleja Lutz) Other CVA (cerebral vascular accident) Cancer Heart disease Family History: Cancer Smoking Status: Former smoker Physical Exam Vital Signs Temp Pulse Resp BP 97.7 F L 111 H 18 149/107 H 08/16/18 13:40 08/16/18 13:40 08/16/18 13:40 08/16/18 13:40 General: Alert, Oriented x3, Cooperative, No apparent distress HEENT: Atraumatic, PERRLA, Normocephalic Lungs: Clear to auscultation, Normal air movement, No rhonchi, No wheeze, No rales Cardiovascular: Regular rate, Regular Rhythm, Normal S1, Normal S2 Psych/Mental Status: Normal Affect, Appropriate, Alert and oriented to time, place, person, mood and affect Assessment/Plan The patient appears to be tolerating hyperbaric oxygen therapy well, which will be continued as per the patient's medical plan. Did discuss with patient to f/u with PCP due to BP being elevated. Denies s/s of HTN however.
[2018-08-17 13:50] VITALS: BP 142/86; BP 143/88; PULSE 63; PULSE 84; RESP 16; TEMP 36.5; TEMP 36.8
--- NOTE | 2018-08-17 18:08 | PCM.HBO.PN ---
History of Present Illness Date of Service: 08/17/18 Presenting Chief Complaint: Nonhealing ulcer left BKA stump with recent surgical closure 05/25/18 and mild skin graft/flap compromise. JANIE CHIN is a 52 year old currently undergoing hyperbaric oxygen therapy for nonhealing ulcer left BKA stump with recent surgical closure 05/25/18 and mild skin graft/flap compromise. Progress: Today's session represents the 32nd session of hyperbaric oxygen therapy out of 40 treatments ordered. The patient appears to be tolerating HBO therapy well. Tolerance of hyperbaric oxygen therapy: Hyperbaric oxygen therapy was administered as per the facility's protocol. The patient tolerated hyperbaric oxygen therapy well, without complaints or complications. Upon emergence from the hyperbaric chamber, the patient's vital signs remained stable. He was discharged in good condition. 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) Patient is on Coumadin for PE Chronic osteomyelitis of left tibia (Chronic) chronic osteomyelitis left tibia at BKA stump 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) Pain of amputation stump of left lower extremity (Chronic) Dermatitis (Chronic) CAD (coronary artery disease) (Chronic) Osteomyelitis of left lower extremity (Chronic) Pain of left anterior lower extremity (Chronic) Amputation, traumatic, leg (Chronic) HTN (hypertension) (Chronic) Hypertension (Chronic) Peripheral arterial disease (Chronic) SVT (supraventricular tachycardia) (Chronic) Hypercoagulable state (Chronic) Wound, surgical, nonhealing (Chronic) Ischemic ulcer of right foot (Chronic) Allergies/Adverse Reactions: Allergies Penicillins Allergy (Verified 08/10/18 10:05) Swelling adhesive tape Adverse Reaction (Verified 08/10/18 10:05) Rash Home Medications: Ambulatory Orders Medication Instructions Recorded Atorvastatin Calcium [Lipitor] 40 mg PO QHS 04/03/18 Carvedilol 12.5 mg PO DAILY 04/03/18 Diazepam [Valium] 5 mg PO 4X/DAY PRN #30 tab 05/30/18 Docusate Sodium [Colace] 100 mg PO BID #60 cap 05/30/18 Iron Polysaccharide Complex 150 mg PO DAILYCM #30 cap 05/30/18 [Ferrex 150] Mupirocin [Bactroban] 1 applic TOPICAL .QDAILY #2 tube 05/30/18 gabapentin 300 mg capsule 1,800 mg PO BID #360 cap 06/28/18 levofloxacin 500 mg tablet 500 mg PO DAILY 07/13/18 sertraline 25 mg tablet 25 mg PO DAILY PRN 07/13/18 amlodipine 2.5 mg tablet 2.5 mg PO DAILY #30 tab 08/10/18 apixaban 5 mg tablet 5 mg PO BID #60 tab 08/10/18 Maternal Family History: Family History (Last Reviewed 08/10/18 @ 10:08 by Aleja Lutz) Other CVA (cerebral vascular accident) Cancer Heart disease Family History: Cancer, Diabetes, Heart Disease, Renal Disease Paternal Family History: Family History (Last Reviewed 08/10/18 @ 10:08 by Aleja Lutz) Other CVA (cerebral vascular accident) Cancer Heart disease Family History: Cancer Smoking Status: Former smoker Physical Exam Vital Signs Temp Pulse Resp BP 97.7 F L 63 16 143/88 H 08/17/18 13:50 08/17/18 13:50 08/17/18 13:50 08/17/18 13:50 General: Alert, Oriented x3, Cooperative, No apparent distress Psych/Mental Status: Normal Affect, Appropriate Assessment/Plan Active Problems (Last Reviewed 08/10/18 @ 10:08 by Aleja Lutz) Partial loss of skin graft (Acute) 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) The patient appears to be tolerating hyperbaric oxygen therapy well, which will be continued as per the patient's medical plan for a total of 40 HBO treatments. .
== END 2018-08-26 23:59 ==
LOC: WC 14:00
PROVIDERS: Family Provider Internal Medicine; PCP Internal Medicine; Visit Provider Surgery
DX: T81.30XA Disruption of wound, unspecified, initial encounter (principal); Y83.8 Other surgical procedures as the cause of abnormal reaction of the patient, or of later complication, without mention of misadventure at the time of the procedure; Z86.14 Personal history of Methicillin resistant Staphylococcus aureus infection; M79.89 Other specified soft tissue disorders; Z89.512 Acquired absence of left leg below knee; Z86.711 Personal history of pulmonary embolism; Z86.718 Personal history of other venous thrombosis and embolism; I10 Essential (primary) hypertension; Z87.891 Personal history of nicotine dependence; I25.10 Atherosclerotic heart disease of native coronary artery without angina pectoris; I73.9 Peripheral vascular disease, unspecified; T86.828 Other complications of skin graft (allograft) (autograft); Z79.01 Long term (current) use of 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s; Z79.899 Other long term (current) drug therapy
CPT/HCPCS: 11042; 11045; 87070; 87075; 87077; 87186; 87205

== ENCOUNTER 2018-08-24 14:00 | Outpatient (RCR) | payer OTHER, SELFPAY ==
[2018-07-23 10:17] VITALS: BMI 24.5
[2018-07-27 01:01] VITALS: BP 99/66; PULSE 73; RESP 16; TEMP 36.1
--- NOTE | 2018-07-27 09:57 | PCM.HBO.PN ---
History of Present Illness Presenting Chief Complaint: Nonhealing ulcer left BKA stump with recent surgical closure 05/25/18 and mild skin graft/flap compromise. 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) Patient is on Coumadin for PE Chronic osteomyelitis of left tibia (Chronic) chronic osteomyelitis left tibia at BKA stump 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) Pain of amputation stump of left lower extremity (Chronic) Dermatitis (Chronic) CAD (coronary artery disease) (Chronic) Osteomyelitis of left lower extremity (Chronic) Pain of left anterior lower extremity (Chronic) Amputation, traumatic, leg (Chronic) HTN (hypertension) (Chronic) Hypertension (Chronic) Peripheral arterial disease (Chronic) SVT (supraventricular tachycardia) (Chronic) Hypercoagulable state (Chronic) Wound, surgical, nonhealing (Chronic) Ischemic ulcer of right foot (Chronic) Allergies/Adverse Reactions: Allergies Penicillins Allergy (Verified 06/25/18 09:29) Swelling adhesive tape Adverse Reaction (Verified 06/25/18 09:29) Rash Home Medications: Ambulatory Orders Medication Instructions Recorded Atorvastatin Calcium [Lipitor] 40 mg PO QHS 04/03/18 Carvedilol 12.5 mg PO DAILY 04/03/18 Apixaban [Eliquis] 5 mg PO BID #60 tab 05/28/18 Diazepam [Valium] 5 mg PO 4X/DAY PRN #30 tab 05/30/18 Docusate Sodium [Colace] 100 mg PO BID #60 cap 05/30/18 Iron Polysaccharide Complex 150 mg PO DAILYCM #30 cap 05/30/18 [Ferrex 150] Mupirocin [Bactroban] 1 applic TOPICAL .QDAILY #2 tube 05/30/18 Smz/Tmp Ds [Bactrim Ds] 1 tab PO BIDCM #28 tab 05/30/18 gabapentin 300 mg capsule 1,800 mg PO BID #360 cap 06/28/18 amlodipine 2.5 mg tablet 2.5 mg PO DAILY #30 tab 07/13/18 levofloxacin 500 mg tablet 500 mg PO DAILY 07/13/18 sertraline 25 mg tablet 25 mg PO DAILY PRN 07/13/18 Maternal Family History: Family History (Last Reviewed 07/13/18 @ 10:48 by Mila Taveras) Other CVA (cerebral vascular accident) Cancer Heart disease Family History: Cancer, Diabetes, Heart Disease, Renal Disease Paternal Family History: Family History (Last Reviewed 07/13/18 @ 10:48 by Mila Taveras) Other CVA (cerebral vascular accident) Cancer Heart disease Family History: Cancer Smoking Status: Former smoker Physical Exam Vital Signs Temp Pulse Resp BP 97.0 F L 73 16 99/66 07/27/18 01:01 07/27/18 01:01 07/27/18 01:01 07/27/18 01:01 Assessment/Plan Flap to lower extremity compromised Tolerating HBO treatments well vital signs are stable patient is to continue treatments as tolerated
[2018-07-27 10:29] VITALS: BP 125/77; BP 84/59; PULSE 68; PULSE 89; RESP 16; TEMP 36.3; TEMP 36.6
[2018-07-30 08:04] VITALS: BMI 24.5
[2018-08-03 16:16] VITALS: BP 133/84; BP 139/90; PULSE 74; PULSE 90; RESP 16; TEMP 36.1; TEMP 36.9
--- NOTE | 2018-08-03 17:49 | PCM.HBO.PN ---
History of Present Illness Date of Service: 08/03/18 Presenting Chief Complaint: Nonhealing ulcer left BKA stump with recent surgical closure 05/25/18 and mild skin graft/flap compromise. JANIE CHIN is a 52 year old currently undergoing hyperbaric oxygen therapy for nonhealing ulcer of left BKA stump with recent surgical closure 05/25/18 and skin graft/flap compromise. Progress: Patient appears to be tolerating hyperbaric oxygen therapy well. Today represents the 23rd such session of hyperbaric oxygen therapy. Tolerance of hyperbaric oxygen therapy: Hyperbaric oxygen therapy was administered as per the facility's protocol. The patient tolerated hyperbaric oxygen therapy well, without complaints or complications. Upon emergence from the hyperbaric chamber, patient's vital signs remained stable. Patient was discharged in good condition. Capacity - Capacity Assessment Tool Can the patient make a choice & communicate that choice?: Yes Can the patient understand benefits, risks and alternatives?: Yes Can the patient make a logical, rational choice?: Yes Is the choice the patient makes consistent w/ their values?: Yes Is there an impending, emergent risk to the patient?: No Does the patient have an Advance Directive?: No - unknown Is there a Surrogate Available?: No i.e. HCPOA: No - unknown i.e. 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) Patient is on Coumadin for PE Chronic osteomyelitis of left tibia (Chronic) chronic osteomyelitis left tibia at BKA stump 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) Pain of amputation stump of left lower extremity (Chronic) Dermatitis (Chronic) CAD (coronary artery disease) (Chronic) Osteomyelitis of left lower extremity (Chronic) Pain of left anterior lower extremity (Chronic) Amputation, traumatic, leg (Chronic) HTN (hypertension) (Chronic) Hypertension (Chronic) Peripheral arterial disease (Chronic) SVT (supraventricular tachycardia) (Chronic) Hypercoagulable state (Chronic) Wound, surgical, nonhealing (Chronic) Ischemic ulcer of right foot (Chronic) Allergies/Adverse Reactions: Allergies Penicillins Allergy (Verified 06/25/18 09:29) Swelling adhesive tape Adverse Reaction (Verified 06/25/18 09:29) Rash Home Medications: Ambulatory Orders Medication Instructions Recorded Atorvastatin Calcium [Lipitor] 40 mg PO QHS 04/03/18 Carvedilol 12.5 mg PO DAILY 04/03/18 Apixaban [Eliquis] 5 mg PO BID #60 tab 05/28/18 Diazepam [Valium] 5 mg PO 4X/DAY PRN #30 tab 05/30/18 Docusate Sodium [Colace] 100 mg PO BID #60 cap 05/30/18 Iron Polysaccharide Complex 150 mg PO DAILYCM #30 cap 05/30/18 [Ferrex 150] Mupirocin [Bactroban] 1 applic TOPICAL .QDAILY #2 tube 05/30/18 Smz/Tmp Ds [Bactrim Ds] 1 tab PO BIDCM #28 tab 05/30/18 gabapentin 300 mg capsule 1,800 mg PO BID #360 cap 06/28/18 amlodipine 2.5 mg tablet 2.5 mg PO DAILY #30 tab 07/13/18 levofloxacin 500 mg tablet 500 mg PO DAILY 07/13/18 sertraline 25 mg tablet 25 mg PO DAILY PRN 07/13/18 Maternal Family History: Family History (Last Reviewed 07/13/18 @ 10:48 by Mila Taveras) Other CVA (cerebral vascular accident) Cancer Heart disease Family History: Cancer, Diabetes, Heart Disease, Renal Disease Paternal Family History: Family History (Last Reviewed 07/13/18 @ 10:48 by Mila Taveras) Other CVA (cerebral vascular accident) Cancer Heart disease Family History: Cancer Smoking Status: Former smoker Alcohol: None Drugs: None Physical Exam Vital Signs Temp Pulse Resp BP 98.4 F 90 16 139/90 H 08/03/18 16:16 08/03/18 16:16 08/03/18 16:16 08/03/18 16:16 General: Alert, Oriented x3, Cooperative, No apparent distress Psych/Mental Status: Normal Affect, Appropriate Assessment/Plan Active Problems (Last Reviewed 07/13/18 @ 10:48 by Mila Taveras) Partial loss of skin graft (Acute) 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) Flap to lower extremity compromised Tolerating HBO treatments well vital signs are stable. Patient is to continue treatments as tolerated
[2018-08-06 08:12] VITALS: BP 110/80; PULSE 85; RESP 18; TEMP 37.2; BMI 24.5
[2018-08-06 09:28] VITALS: BP 110/80; BP 130/89; PULSE 67; PULSE 85; RESP 16; RESP 18; TEMP 36.2; TEMP 37.2
--- NOTE | 2018-08-06 11:07 | PCM.HBO.PN ---
History of Present Illness Date of Service: 08/06/18 Presenting Chief Complaint: Nonhealing ulcer left BKA stump with recent surgical closure 05/25/18 and mild skin graft/flap compromise. JANIE CHIN is a 52 year old currently undergoing hyperbaric oxygen therapy for nonhealing ulcer of left BKA stump with recent surgical closure 05/25/18 and skin graft/flap compromise. Progress: Patient appears to be tolerating hyperbaric oxygen therapy well. Today represents the 24th such session of hyperbaric oxygen therapy. Tolerance of hyperbaric oxygen therapy: Hyperbaric oxygen therapy was administered as per the facility's protocol. The patient tolerated hyperbaric oxygen therapy well, without complaints or complications. Upon emergence from the hyperbaric chamber, patient's vital signs remained stable. Patient was discharged in good condition. 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 (Chronic) Patient is on Coumadin for PE Chronic osteomyelitis of left tibia (Chronic) chronic osteomyelitis left tibia at BKA stump 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) Pain of amputation stump of left lower extremity (Chronic) Dermatitis (Chronic) CAD (coronary artery disease) (Chronic) Osteomyelitis of left lower extremity (Chronic) Pain of left anterior lower extremity (Chronic) Amputation, traumatic, leg (Chronic) HTN (hypertension) (Chronic) Hypertension (Chronic) Peripheral arterial disease (Chronic) SVT (supraventricular tachycardia) (Chronic) Hypercoagulable state (Chronic) Wound, surgical, nonhealing (Chronic) Ischemic ulcer of right foot (Chronic) Allergies/Adverse Reactions: Allergies Penicillins Allergy (Verified 06/25/18 09:29) Swelling adhesive tape Adverse Reaction (Verified 06/25/18 09:29) Rash Home Medications: Ambulatory Orders Medication Instructions Recorded Atorvastatin Calcium [Lipitor] 40 mg PO QHS 04/03/18 Carvedilol 12.5 mg PO DAILY 04/03/18 Apixaban [Eliquis] 5 mg PO BID #60 tab 12/31/18 Diazepam [Valium] 5 mg PO 4X/DAY PRN #30 tab 05/30/18 Docusate Sodium [Colace] 100 mg PO BID #60 cap 05/30/18 Iron Polysaccharide Complex 150 mg PO DAILYCM #30 cap 05/30/18 [Ferrex 150] Mupirocin [Bactroban] 1 applic TOPICAL .QDAILY #2 tube 05/30/18 Smz/Tmp Ds [Bactrim Ds] 1 tab PO BIDCM #28 tab 05/30/18 gabapentin 300 mg capsule 1,800 mg PO BID #360 cap 06/28/18 amlodipine 2.5 mg tablet 2.5 mg PO DAILY #30 tab 07/13/18 levofloxacin 500 mg tablet 500 mg PO DAILY 07/13/18 sertraline 25 mg tablet 25 mg PO DAILY PRN 07/13/18 Maternal Family History: Family History (Last Reviewed 07/13/18 @ 10:48 by Mila Taveras) Other CVA (cerebral vascular accident) Cancer Heart disease Family History: Cancer, Diabetes, Heart Disease, Renal Disease Paternal Family History: Family History (Last Reviewed 07/13/18 @ 10:48 by Mila Taveras) Other CVA (cerebral vascular accident) Cancer Heart disease Family History: Cancer Smoking Status: Former smoker Alcohol: None Drugs: None Physical Exam Vital Signs Temp Pulse Resp BP 98.9 F 85 18 110/80 08/06/18 09:28 08/06/18 09:28 08/06/18 09:28 08/06/18 09:28 General: Alert, Oriented x3, Cooperative HEENT: Atraumatic, TM's Clear Lungs: Clear to auscultation, Normal air movement, No rhonchi, No wheeze Cardiovascular: Regular rate, Regular Rhythm, Normal S1, Normal S2 Psych/Mental Status: Normal Affect, Appropriate, Alert and oriented to time, place, person, mood and affect Assessment/Plan Active Problems (Last Reviewed 07/13/18 @ 10:48 by Mila Taveras) Partial loss of skin graft (Acute) 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) Flap to lower extremity compromised Tolerating HBO treatments well vital signs are stable. Patient is to continue treatments as tolerated Code Visit [id number]
--- NOTE | 2018-08-07 11:43 | HBO.PN.PCM_ITS ---
History of Present Illness Date of Service: 08/02/18 Presenting Chief Complaint: Nonhealing ulcer left BKA stump with recent surgical closure 05/25/18 and mild skin graft/flap compromise. JANIE CHIN is a 52 year old currently undergoing hyperbaric oxygen therapy for nonhealing ulcer of left BKA stump with recent surgical closure 05/25/18 and skin graft/flap compromise. Progress: Patient appears to be tolerating hyperbaric oxygen therapy well. Today represents the 22nd such session of hyperbaric oxygen therapy. Tolerance of hyperbaric oxygen therapy: Hyperbaric oxygen therapy was administered as per the facility's protocol. The patient tolerated hyperbaric oxygen therapy well, without complaints or complications. Upon emergence from the hyperbaric chamber, patient's vital signs remained stable. Patient was discharged in good condition. 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) Patient is on Coumadin for PE Chronic osteomyelitis of left tibia (Chronic) chronic osteomyelitis left tibia at BKA stump 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) Pain of amputation stump of left lower extremity (Chronic) Dermatitis (Chronic) CAD (coronary artery disease) (Chronic) Osteomyelitis of left lower extremity (Chronic) Pain of left anterior lower extremity (Chronic) Amputation, traumatic, leg (Chronic) HTN (hypertension) (Chronic) Hypertension (Chronic) Peripheral arterial disease (Chronic) SVT (supraventricular tachycardia) (Chronic) Hypercoagulable state (Chronic) Wound, surgical, nonhealing (Chronic) Ischemic ulcer of right foot (Chronic) Allergies/Adverse Reactions: Allergies Penicillins Allergy (Verified 06/25/18 09:29) Swelling adhesive tape Adverse Reaction (Verified 06/25/18 09:29) Rash Home Medications: Ambulatory Orders Medication Instructions Recorded Atorvastatin Calcium [Lipitor] 40 mg PO QHS 04/03/18 Carvedilol 12.5 mg PO DAILY 04/03/18 Apixaban [Eliquis] 5 mg PO BID #60 tab 12/31/18 Diazepam [Valium] 5 mg PO 4X/DAY PRN #30 tab 05/30/18 Docusate Sodium [Colace] 100 mg PO BID #60 cap 05/30/18 Iron Polysaccharide Complex 150 mg PO DAILYCM #30 cap 05/30/18 [Ferrex 150] Mupirocin [Bactroban] 1 applic TOPICAL .QDAILY #2 tube 05/30/18 Smz/Tmp Ds [Bactrim Ds] 1 tab PO BIDCM #28 tab 05/30/18 gabapentin 300 mg capsule 1,800 mg PO BID #360 cap 06/28/18 amlodipine 2.5 mg tablet 2.5 mg PO DAILY #30 tab 07/13/18 levofloxacin 500 mg tablet 500 mg PO DAILY 07/13/18 sertraline 25 mg tablet 25 mg PO DAILY PRN 07/13/18 Maternal Family History: Family History (Last Reviewed 07/13/18 @ 10:48 by Mila Taveras) Other CVA (cerebral vascular accident) Cancer Heart disease Family History: Cancer, Diabetes, Heart Disease, Renal Disease Paternal Family History: Family History (Last Reviewed 07/13/18 @ 10:48 by Mila Taveras) Other CVA (cerebral vascular accident) Cancer Heart disease Family History: Cancer Smoking Status: Former smoker Alcohol: None Drugs: None Physical Exam Vital Signs Temp Pulse Resp BP 98.9 F 85 18 110/80 08/06/18 09:28 08/06/18 09:28 08/06/18 09:28 08/06/18 09:28 General: Alert, Oriented x3, Cooperative, No apparent distress HEENT: Atraumatic, PERRLA, TM's Clear Lungs: Clear to auscultation, Normal air movement, No rhonchi, No wheeze, No rales Cardiovascular: Regular rate, Normal S1, Normal S2 Psych/Mental Status: Normal Affect, Alert and oriented to time, place, person, mood and affect Assessment/Plan Active Problems (Last Reviewed 07/13/18 @ 10:48 by Mila Taveras) Partial loss of skin graft (Acute) Methicillin resistant Staphylococcus aureus infection (Chronic) History of DVT (deep vein thrombosis) (Chronic) 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) Former smoker (Chronic) Chronic osteomyelitis of left tibia (Chronic) chronic osteomyelitis left tibia at BKA stump 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) Flap to lower extremity compromised Tolerating HBO treatments well vital signs are stable. Patient is to continue treatments as tolerated Code Visit DOS 08/02/18
--- NOTE | 2018-08-07 14:28 | HBO.PN.PCM_ITS ---
History of Present Illness Date of Service: 08/07/18 Presenting Chief Complaint: Nonhealing ulcer left BKA stump with recent surgical closure 05/25/18 and mild skin graft/flap compromise. JANIE CHIN is a 52 year old currently undergoing hyperbaric oxygen therapy for nonhealing ulcer of left BKA stump with recent surgical closure 05/25/18 and skin graft/flap compromise. Progress: Patient appears to be tolerating hyperbaric oxygen therapy well. Today represents the 23rd such session of hyperbaric oxygen therapy. Tolerance of hyperbaric oxygen therapy: Hyperbaric oxygen therapy was administered as per the facility's protocol. The patient tolerated hyperbaric oxygen therapy well, without complaints or complications. Upon emergence from the hyperbaric chamber, patient's vital signs remained stable. Patient was discharged in good condition. 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) Patient is on Coumadin for PE Chronic osteomyelitis of left tibia (Chronic) chronic osteomyelitis left tibia at BKA stump 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) Pain of amputation stump of left lower extremity (Chronic) Dermatitis (Chronic) CAD (coronary artery disease) (Chronic) Osteomyelitis of left lower extremity (Chronic) Pain of left anterior lower extremity (Chronic) Amputation, traumatic, leg (Chronic) HTN (hypertension) (Chronic) Hypertension (Chronic) Peripheral arterial disease (Chronic) SVT (supraventricular tachycardia) (Chronic) Hypercoagulable state (Chronic) Wound, surgical, nonhealing (Chronic) Ischemic ulcer of right foot (Chronic) Allergies/Adverse Reactions: Allergies Penicillins Allergy (Verified 06/25/18 09:29) Swelling adhesive tape Adverse Reaction (Verified 06/25/18 09:29) Rash Home Medications: Ambulatory Orders Medication Instructions Recorded Atorvastatin Calcium [Lipitor] 40 mg PO QHS 04/03/18 Carvedilol 12.5 mg PO DAILY 04/03/18 Apixaban [Eliquis] 5 mg PO BID #60 tab 12/31/18 Diazepam [Valium] 5 mg PO 4X/DAY PRN #30 tab 05/30/18 Docusate Sodium [Colace] 100 mg PO BID #60 cap 05/30/18 Iron Polysaccharide Complex 150 mg PO DAILYCM #30 cap 05/30/18 [Ferrex 150] Mupirocin [Bactroban] 1 applic TOPICAL .QDAILY #2 tube 05/30/18 Smz/Tmp Ds [Bactrim Ds] 1 tab PO BIDCM #28 tab 05/30/18 gabapentin 300 mg capsule 1,800 mg PO BID #360 cap 06/28/18 amlodipine 2.5 mg tablet 2.5 mg PO DAILY #30 tab 07/13/18 levofloxacin 500 mg tablet 500 mg PO DAILY 07/13/18 sertraline 25 mg tablet 25 mg PO DAILY PRN 07/13/18 Maternal Family History: Family History (Last Reviewed 07/13/18 @ 10:48 by Mila Taveras) Other CVA (cerebral vascular accident) Cancer Heart disease Family History: Cancer, Diabetes, Heart Disease, Renal Disease Paternal Family History: Family History (Last Reviewed 07/13/18 @ 10:48 by Mila Taveras) Other CVA (cerebral vascular accident) Cancer Heart disease Family History: Cancer Smoking Status: Former smoker Alcohol: None Drugs: None Physical Exam Vital Signs Temp Pulse Resp BP 98.9 F 85 18 110/80 08/06/18 09:28 08/06/18 09:28 08/06/18 09:28 08/06/18 09:28 General: Alert, Oriented x3, Cooperative, No apparent distress HEENT: Atraumatic, TM's Clear Lungs: Clear to auscultation, Normal air movement Cardiovascular: Regular rate, Regular Rhythm Psych/Mental Status: Normal Affect, Appropriate, Alert and oriented to time, place, person, mood and affect Assessment/Plan Active Problems (Last Reviewed 07/13/18 @ 10:48 by Mila Taveras) Partial loss of skin graft (Acute) Methicillin resistant Staphylococcus aureus infection (Chronic) History of DVT (deep vein thrombosis) (Chronic) 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) Former smoker (Chronic) Chronic osteomyelitis of left tibia (Chronic) chronic osteomyelitis left tibia at BKA stump 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
[2018-08-07 17:45] VITALS: BP 136/82; BP 146/84; PULSE 68; RESP 16; TEMP 36.7; TEMP 36.9
[2018-08-08 13:57] VITALS: BP 142/92; BP 160/94; PULSE 73; PULSE 75; RESP 16; RESP 18; TEMP 36.4; TEMP 36.8
--- NOTE | 2018-08-09 09:03 | PCM.HBO.PN ---
History of Present Illness Date of Service: 08/08/18 Presenting Chief Complaint: Nonhealing ulcer left BKA stump with recent surgical closure 05/25/18 and mild skin graft/flap compromise. JANIE CHIN is a 52 year old currently undergoing hyperbaric oxygen therapy for nonhealing ulcer of left BKA stump with recent surgical closure 05/25/18 and skin graft/flap compromise. Progress: Patient appears to be tolerating hyperbaric oxygen therapy well. Today represents the 26th such session of hyperbaric oxygen therapy. Tolerance of hyperbaric oxygen therapy: Hyperbaric oxygen therapy was administered as per the facility's protocol. The patient tolerated hyperbaric oxygen therapy well, without complaints or complications. Upon emergence from the hyperbaric chamber, patient's vital signs remained stable. Patient was discharged in good condition. 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) Patient is on Coumadin for PE Chronic osteomyelitis of left tibia (Chronic) chronic osteomyelitis left tibia at BKA stump 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) Pain of amputation stump of left lower extremity (Chronic) Dermatitis (Chronic) CAD (coronary artery disease) (Chronic) Osteomyelitis of left lower extremity (Chronic) Pain of left anterior lower extremity (Chronic) Amputation, traumatic, leg (Chronic) HTN (hypertension) (Chronic) Hypertension (Chronic) Peripheral arterial disease (Chronic) SVT (supraventricular tachycardia) (Chronic) Hypercoagulable state (Chronic) Wound, surgical, nonhealing (Chronic) Ischemic ulcer of right foot (Chronic) Allergies/Adverse Reactions: Allergies Penicillins Allergy (Verified 06/25/18 09:29) Swelling adhesive tape Adverse Reaction (Verified 06/25/18 09:29) Rash Home Medications: Ambulatory Orders Medication Instructions Recorded Atorvastatin Calcium [Lipitor] 40 mg PO QHS 04/03/18 Carvedilol 12.5 mg PO DAILY 04/03/18 Apixaban [Eliquis] 5 mg PO BID #60 tab 12/31/18 Diazepam [Valium] 5 mg PO 4X/DAY PRN #30 tab 05/30/18 Docusate Sodium [Colace] 100 mg PO BID #60 cap 05/30/18 Iron Polysaccharide Complex 150 mg PO DAILYCM #30 cap 05/30/18 [Ferrex 150] Mupirocin [Bactroban] 1 applic TOPICAL .QDAILY #2 tube 05/30/18 Smz/Tmp Ds [Bactrim Ds] 1 tab PO BIDCM #28 tab 05/30/18 gabapentin 300 mg capsule 1,800 mg PO BID #360 cap 06/28/18 amlodipine 2.5 mg tablet 2.5 mg PO DAILY #30 tab 07/13/18 levofloxacin 500 mg tablet 500 mg PO DAILY 07/13/18 sertraline 25 mg tablet 25 mg PO DAILY PRN 07/13/18 Maternal Family History: Family History (Last Reviewed 07/13/18 @ 10:48 by Mila Taveras) Other CVA (cerebral vascular accident) Cancer Heart disease Family History: Cancer, Diabetes, Heart Disease, Renal Disease Paternal Family History: Family History (Last Reviewed 07/13/18 @ 10:48 by Mila Taveras) Other CVA (cerebral vascular accident) Cancer Heart disease Family History: Cancer Smoking Status: Former smoker Alcohol: None Drugs: None Physical Exam Vital Signs Temp Pulse Resp BP 98.3 F 75 18 142/92 H 08/08/18 13:57 08/08/18 13:57 08/08/18 13:57 08/08/18 13:57 General: Alert, Oriented x3, Cooperative, No apparent distress HEENT: Atraumatic, TM's Clear Lungs: Clear to auscultation, Normal air movement Cardiovascular: Regular rate, Regular Rhythm Psych/Mental Status: Normal Affect, Appropriate, Alert and oriented to time, place, person, mood and affect Assessment/Plan He is tolerating treatment and Hyperbaric oxygen therapy will continue as determined by the patient's medical plan.
[2018-08-09 13:58] VITALS: BP 129/81; BP 132/94; PULSE 73; PULSE 94; RESP 16; RESP 18; TEMP 36.6; TEMP 37
--- NOTE | 2018-08-09 16:21 | PCM.HBO.PN ---
History of Present Illness Date of Service: 08/09/18 Presenting Chief Complaint: Nonhealing ulcer left BKA stump with recent surgical closure 05/25/18 and mild skin graft/flap compromise. JANIE CHIN is a 52 year old currently undergoing hyperbaric oxygen therapy for nonhealing ulcer of left BKA stump with recent surgical closure 05/25/18 and skin graft/flap compromise. Progress: Patient appears to be tolerating hyperbaric oxygen therapy well. Today represents the 27th such session of hyperbaric oxygen therapy. Tolerance of hyperbaric oxygen therapy: Hyperbaric oxygen therapy was administered as per the facility's protocol. The patient tolerated hyperbaric oxygen therapy well, without complaints or complications. Upon emergence from the hyperbaric chamber, patient's vital signs remained stable. Patient was discharged in good condition. 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) Patient is on Coumadin for PE Chronic osteomyelitis of left tibia (Chronic) chronic osteomyelitis left tibia at BKA stump 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) Pain of amputation stump of left lower extremity (Chronic) Dermatitis (Chronic) CAD (coronary artery disease) (Chronic) Osteomyelitis of left lower extremity (Chronic) Pain of left anterior lower extremity (Chronic) Amputation, traumatic, leg (Chronic) HTN (hypertension) (Chronic) Hypertension (Chronic) Peripheral arterial disease (Chronic) SVT (supraventricular tachycardia) (Chronic) Hypercoagulable state (Chronic) Wound, surgical, nonhealing (Chronic) Ischemic ulcer of right foot (Chronic) Allergies/Adverse Reactions: Allergies Penicillins Allergy (Verified 06/25/18 09:29) Swelling adhesive tape Adverse Reaction (Verified 06/25/18 09:29) Rash Home Medications: Ambulatory Orders Medication Instructions Recorded Atorvastatin Calcium [Lipitor] 40 mg PO QHS 04/03/18 Carvedilol 12.5 mg PO DAILY 04/03/18 Apixaban [Eliquis] 5 mg PO BID #60 tab 12/31/18 Diazepam [Valium] 5 mg PO 4X/DAY PRN #30 tab 05/30/18 Docusate Sodium [Colace] 100 mg PO BID #60 cap 05/30/18 Iron Polysaccharide Complex 150 mg PO DAILYCM #30 cap 05/30/18 [Ferrex 150] Mupirocin [Bactroban] 1 applic TOPICAL .QDAILY #2 tube 05/30/18 Smz/Tmp Ds [Bactrim Ds] 1 tab PO BIDCM #28 tab 05/30/18 gabapentin 300 mg capsule 1,800 mg PO BID #360 cap 06/28/18 amlodipine 2.5 mg tablet 2.5 mg PO DAILY #30 tab 07/13/18 levofloxacin 500 mg tablet 500 mg PO DAILY 07/13/18 sertraline 25 mg tablet 25 mg PO DAILY PRN 07/13/18 Maternal Family History: Family History (Last Reviewed 07/13/18 @ 10:48 by Mila Taveras) Other CVA (cerebral vascular accident) Cancer Heart disease Family History: Cancer, Diabetes, Heart Disease, Renal Disease Paternal Family History: Family History (Last Reviewed 07/13/18 @ 10:48 by Mila Taveras) Other CVA (cerebral vascular accident) Cancer Heart disease Family History: Cancer Smoking Status: Former smoker Alcohol: None Drugs: None Physical Exam Vital Signs Temp Pulse Resp BP 98.6 F 94 18 132/94 H 08/09/18 13:58 08/09/18 13:58 08/09/18 13:58 08/09/18 13:58 General: Alert, Oriented x3, Cooperative, No apparent distress HEENT: Atraumatic, PERRLA, Normocephalic, TM's Clear Lungs: Clear to auscultation, Normal air movement, No rhonchi, No wheeze, No rales Cardiovascular: Regular rate, Regular Rhythm, Normal S1, Normal S2, No murmurs Psych/Mental Status: Normal Affect, Alert and oriented to time, place, person, mood and affect Assessment/Plan He is tolerating treatment and Hyperbaric oxygen therapy will continue as determined by the patient's medical plan.
[2018-08-10 10:08] VITALS: BMI 23.2
[2018-08-10 13:34] VITALS: BP 126/88; BP 149/81; PULSE 73; PULSE 92; RESP 16; TEMP 36.2; TEMP 36.4
--- NOTE | 2018-08-10 18:04 | HBO.PN.PCM_ITS ---
History of Present Illness Date of Service: 08/10/18 Presenting Chief Complaint: Nonhealing ulcer left BKA stump with recent surgical closure 05/25/18 and mild skin graft/flap compromise. JANIE CHIN is a 52 year old currently undergoing hyperbaric oxygen therapy for nonhealing ulcer of left BKA stump with recent surgical closure 05/25/18 and skin graft/flap compromise. Progress: Patient appears to be tolerating hyperbaric oxygen therapy well. Today represents the 28th such session of hyperbaric oxygen therapy. Tolerance of hyperbaric oxygen therapy: Hyperbaric oxygen therapy was administered as per the facility's protocol. The patient tolerated hyperbaric oxygen therapy well, without complaints or complications. Upon emergence from the hyperbaric chamber, patient's vital signs remained stable. Patient was discharged in good condition. 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) Patient is on Coumadin for PE Chronic osteomyelitis of left tibia (Chronic) chronic osteomyelitis left tibia at BKA stump 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) Pain of amputation stump of left lower extremity (Chronic) Dermatitis (Chronic) CAD (coronary artery disease) (Chronic) Osteomyelitis of left lower extremity (Chronic) Pain of left anterior lower extremity (Chronic) Amputation, traumatic, leg (Chronic) HTN (hypertension) (Chronic) Hypertension (Chronic) Peripheral arterial disease (Chronic) SVT (supraventricular tachycardia) (Chronic) Hypercoagulable state (Chronic) Wound, surgical, nonhealing (Chronic) Ischemic ulcer of right foot (Chronic) Allergies/Adverse Reactions: Allergies Penicillins Allergy (Verified 08/10/18 10:05) Swelling adhesive tape Adverse Reaction (Verified 08/10/18 10:05) Rash Home Medications: Ambulatory Orders Medication Instructions Recorded Atorvastatin Calcium [Lipitor] 40 mg PO QHS 04/03/18 Carvedilol 12.5 mg PO DAILY 04/03/18 Diazepam [Valium] 5 mg PO 4X/DAY PRN #30 tab 05/30/18 Docusate Sodium [Colace] 100 mg PO BID #60 cap 05/30/18 Iron Polysaccharide Complex 150 mg PO DAILYCM #30 cap 05/30/18 [Ferrex 150] Mupirocin [Bactroban] 1 applic TOPICAL .QDAILY #2 tube 05/30/18 gabapentin 300 mg capsule 1,800 mg PO BID #360 cap 06/28/18 levofloxacin 500 mg tablet 500 mg PO DAILY 07/13/18 sertraline 25 mg tablet 25 mg PO DAILY PRN 07/13/18 amlodipine 2.5 mg tablet 2.5 mg PO DAILY #30 tab 08/10/18 apixaban 5 mg tablet 5 mg PO BID #60 tab 08/10/18 Maternal Family History: Family History (Last Reviewed 08/10/18 @ 10:08 by Aleja Lutz) Other CVA (cerebral vascular accident) Cancer Heart disease Family History: Cancer, Diabetes, Heart Disease, Renal Disease Paternal Family History: Family History (Last Reviewed 08/10/18 @ 10:08 by Aleja Lutz) Other CVA (cerebral vascular accident) Cancer Heart disease Family History: Cancer Smoking Status: Former smoker Alcohol: None Drugs: None Physical Exam Vital Signs Temp Pulse Resp BP 97.1 F L 92 16 126/88 H 08/10/18 13:34 08/10/18 13:34 08/10/18 13:34 08/10/18 13:34 General: Alert, Oriented x3, Cooperative, No apparent distress Psych/Mental Status: Normal Affect, Appropriate Assessment/Plan Active Problems (Last Reviewed 08/10/18 @ 10:08 by Aleja Lutz) Partial loss of skin graft (Acute) 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) He is tolerating treatment and Hyperbaric oxygen therapy will continue as determined by the patient's medical plan.
[2018-08-13 08:02] VITALS: BP 123/89; PULSE 85; RESP 18; TEMP 36.6; BMI 23.2
[2018-08-13 09:54] VITALS: BP 136/95; BP 139/86; PULSE 59; PULSE 85; RESP 16; TEMP 36.2; TEMP 36.3
--- NOTE | 2018-08-13 11:01 | PN.PCM_ITS ---
Type of Wound Date of Service: 08/13/18 Chief Complaint: Nonhealing ulcer left BKA stump with recent surgical closure 05/25/18 and mild skin graft/flap compromise. History of Wound: Surgery 05/25/18 - 1. Surgical preparation left BKA stump with excisional debridement nonhealing infected ulcer. 2. Complex secondary wound closure revision reconstruction with re-advancement muscle flap and bipedicle anterior leg fasciocutaneous advancement flap and STSG from the left flank (60 cm2). Surgery 04/05/18 - 1. Surgical preparation left BKA stump with incision and drainage and excisional debridement nonhealing infected ulcer. 2. Partial ostectomy tibia for osteomyelitis. Wound care - Acetic acid. Operative culture - MRSA. Soft tissue from 04/05/18 surgery - negative. Bone from 04/05/18 surgery - negative. Pathology from 04/05/18 surgery - negative for ostemyelitis. He was discharged on Bactrim DS. He has since finished the Bactrim DS. Initially perioperatively he was on Vancomycin. His Creatinine increased to 1.70 and the Vancomycin was stopped. At discharge his Creatinine had decreased to 1.49. He had Creatinine rechecked on 06/29/18 which was 1.96. Repeat Creatinine on 07/20/18 has decreased to 1.31. He had another wound culture done on 06/18/18 which showed Pseudomonas aeroginosa. He was placed on Levaquin and fininshed them. Last week on 08/06/18, another wound culture was done because of increased odor. It showed Pseudomonas aeroginosa and Anaerobic cocci. He was started on Cipro and will add Flagyl. Prealbumin from 05/26/18 was 17.5. Encourage nutritional supplementation with protein to help the healing process. MRI left BKA stump in 10/13 showed osteomyelitis. He changed his anticoagulation medication and stopped the Coumadin and started Eliquis. Today he denies fever. His appetite is good. With his early compromise to the skin graft/flap, he has started HBO treatments to help salvage the compromised graft/flap and is tolerating them thus far. There has been improvement in the healing of the compromised graft/flap but with the recent culture that showed Pseudomonas and anaerobes, he would benefit from continued HBO treatments. Progress of Wound: Surgery 05/25/18 with mild skin graft/flap compromise. - Physical Exam Vital Signs Temp Pulse Resp BP 97.3 F L 85 16 136/95 H 08/13/18 09:54 08/13/18 09:54 08/13/18 09:54 08/13/18 09:54 Wound Measurements and Assessment - Nurse 1 - General Ulcer Measurement Start: 07/27/18 10:12 Freq: Status: Active Protocol: Activity Type Activity Date Activity User E-Sign Co-Sign Detail Recorded Client Recorded Date Recorded By Document 08/13/18 08:02 [id number] 08/13/18 08:09 DL 08/13/18 08:02 Wound Center Nurse 1 [Ulcer Assessment] #5 L BKA stump -Current Size (cm) - Length 4 -Current Size (cm) - Width 8.8 -Current Size (cm) - Depth 0.4 -Total Square Cm 35.2 -Photo Taken No -Granulation Amt Small (1-33%) -Granulation Quality Elderon -Necrosis Amt Large (67-100%) -Necrotic Tissue Type Adherent Slough -Structure Exposed N/A -Texture (Ami-wound Skin Appearance) Localized Edema Scarring -Moisture (Ami-wound Skin Appearance No Abnormality ) -Color (Ami-wound Skin Appearance) No Abnormality -Temperature (Ami-wound Skin No Abnormality Appearance) (Pt Warm) -Tenderness on Palpation (Ami-wound Yes Skin Appearance) -Ulcer Cleansing Rinsed/ Irrigated with Saline -Foul Odor after Cleansing No -Anesthetic Used 5% Lidocaine Gel - Nurse 2 - General Ulcer CM Notes Start: 07/27/18 10:12 Freq: Status: Active Protocol: Activity Type Activity Date Activity User E-Sign Co-Sign Detail Recorded Client Recorded Date Recorded By Document 08/13/18 08:39 [id number] 08/13/18 08:41 08/13/18 08:39 Wound Center Nurse 2 [Procedure/Treatment] -Time 08:39 -Correct Patient Yes -Correct Side, Site, Position Yes -Correct Procedure Yes -Procedure Performed Yes -Type of Procedure Debridement -Clinical Debridement Subcutaneous -Post Debridement Size (cm) - Length 4.4 -Post Debridement Size (cm) - Width 10.0 -Post Debridement Size (cm) - Depth 1.0 -Total Square Cm 44.00 -Wound/Ulcer Outcome Not Healed -Ulcer Cleansing Rinsed/ Irrigated with Saline -Foul Odor after Cleansing No -Bioengineered Tissue No -Bleeding Controlled with Pressure -Offloading No -Treatment Response Procedure Tolerated Well [See Physician Procedure note for Specifics] Pain Scale: 0-10 Numeric [Pain] -Is Patient Pain Free? Yes Debridement Note Post-Debridement Measurements/Treatment WC - Nurse 2 - General Ulcer CM Notes Start: 07/27/18 10:12 Freq: Status: Active Protocol: Activity Type Activity Date Activity User E-Sign Co-Sign Detail Recorded Client Recorded Date Recorded By Document 08/06/18 08:42 [id number] 08/06/18 08:54 Document 08/13/18 08:39 [id number] 08/13/18 08:41 08/06/18 08/13/18 08:42 08:39 Wound Center Nurse 2 #5 L BKA stump -Time 08:42 08:39 -Correct Patient Yes Yes -Correct Side, Site, Position Yes Yes -Correct Procedure Yes Yes -Procedure Performed Yes Yes -Type of Procedure Debridement Debridement -Clinical Debridement Subcutaneous Subcutaneous -Post Debridement Size (cm) - Length 4.8 4.4 -Post Debridement Size (cm) - Width 9.3 10.0 -Post Debridement Size (cm) - Depth 1.0 1.0 -Total Square Cm 44.64 44.00 -Wound/Ulcer Outcome Not Healed Not Healed -Ulcer Cleansing Rinsed/ Rinsed/ Irrigated with Irrigated with Saline Saline -Foul Odor after Cleansing No No -Bioengineered Tissue No No -Bleeding Controlled with Pressure Pressure -Offloading No No -Treatment Response Procedure Procedure Tolerated Well Tolerated Well Pain Scale: 0-10 Numeric Is Patient Pain Free? Yes Yes Wound debrided: #5 Left BKA stump. Laterality: Left Wound Grade/Stage: 4. Type of Debridement: Excisional debridement Anesthesia Used: 4% Lidocaine Solution Depth: Down to and including healthy tissue, in the subcutaneous layer Percentage of wound debrided: 100 Instrument Used: 5mm curette Tissue Removed: subcutaneous tissue. Severity: Fat Layer Exposed Amount of bleeding with debridement: Mild Bleeding Controlled with: Pressure Patient tolerated procedure well Assessment/Plan Active Problems (Last Reviewed 08/10/18 @ 10:08 by Aleja uLtz) Partial loss of skin graft (Acute) 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) Assessment: 1. Nonhealing ulcer left BKA stump with recent surgical closure 05/25/18. 2. Pain left BKA stump. 3. MRSA. 4. 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 5. 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 7. Early skin graft/flap compromise left BKA stump, (20% compromise). 8. s/p surgical preparation left BKA stump with excisional debridement nonhealing infected ulcer and complex secondary wound closure revision reconstruction with re-advancement muscle flap and bipedicle anterior leg fasciocutaneous advancement flap and STSG from the left flank (60 cm2). 9. JUAN (acute kidney injury), probable medication related, resolving. Plan: With the recent culture showing Pseudomonas, the wound care was changed to Acetic Acid. The Silver was stopped. The Santyl is on hold. The wound shows good improvement since last visit with the starting of the Acetic Acid. There was some concern that he would need IV antibiotics for the Pseudomonas since it can be destructive to tissue and he already finished a course of Levaquin. He was placed on Cipro this time since the Levaquin had intermediate sensitivity. He was also started on Flagyl for Anaerobic cocci. Since the wound has shown improvement with the Acetic Acid, will hold off on IV antibiotics at this time. However will assess at each visit. If his healing worsens, will change to IV antibiotics at that point. That would require admission to the hospital and placement of a PICC line. After more healing is seen, will consider placement of placental connective tissue graft (Epifix) or Thera-skin. He has finished the Bactrim DS for MRSA. He has finished the Levaquin for Pseudomonas aeroginosa. The skin graft shows good adherence and about 85% take and good vascular ingrowth. There is some mild compromise at the inferior edge of the skin graft (about 15% compromise). The stump incision showed some superficial wound separation which is healing satisfactory. The stump is soft and swelling has resolved. The central aspect of the stump anteriorly shows some mild compromise (about 10%). After debridement, the underlying subcutaneous tissue continues to appear viable with no exposure of bone. With the mild skin graft/flap compromise (about 25% total), he started HBO treatments which would help salvage the compromised graft/flap. He is tolerating the HBO treatments thus far. There has been improvement in the healing of the compromised graft/flap but with the recent culture that showed Pseudomonas and anaerobes, he would benefit from continued HBO treatments as Pseudomonas can be destructive to tissue. Continued wound healing progress can be made with continuation of HBO treatments. Not only are we trying to salvage the compromised graft/flap, we are also trying to salvage the stump itself. Because if HBO treatments are stopped too soon and the tissue destruction continues with the Pseudomonas, the wound is at risk of eroding to the bone which increases the risk of revising the BKA stump to an AKA stump. The AKA necessitates a more complex prosthesis which will prolong rehab in the future. Prealbumin from the hospital was 17.5. Encourage nutritional supplementation with protein to help the healing process. After his last surgery in April, he had been on Vancomycin for a day which was stopped when his Creatinine increased to 1.70. It then decreased down to 1.49 before increasing back up to 1.96 and then most recently decreased back to 1.31 on 07/20/18. Encourage hydration. He has returned to work and is doing ok. Discussed with the patient that the presence of MRSA and Pseudomonas can be destructive to the surrounding tissue leading to suboptimal healing. Renewed his Percocet for pain (30 tabs). Followup one week.
--- NOTE | 2018-08-13 13:15 | HBO.PN.PCM_ITS ---
History of Present Illness Date of Service: 08/13/18 Presenting Chief Complaint: Nonhealing ulcer left BKA stump with recent surgical closure 05/25/18 and mild skin graft/flap compromise. JANIE CHIN is a 52 year old currently undergoing hyperbaric oxygen therapy for nonhealing ulcer of left BKA stump with recent surgical closure 05/25/18 and skin graft/flap compromise. Progress: Patient appears to be tolerating hyperbaric oxygen therapy well. Today represents the 29th such session of hyperbaric oxygen therapy. Tolerance of hyperbaric oxygen therapy: Hyperbaric oxygen therapy was administered as per the facility's protocol. The patient tolerated hyperbaric oxygen therapy well, without complaints or complications. Upon emergence from the hyperbaric chamber, patient's vital signs remained stable. Patient was discharged in good condition. 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) Patient is on Coumadin for PE Chronic osteomyelitis of left tibia (Chronic) chronic osteomyelitis left tibia at BKA stump 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) Pain of amputation stump of left lower extremity (Chronic) Dermatitis (Chronic) CAD (coronary artery disease) (Chronic) Osteomyelitis of left lower extremity (Chronic) Pain of left anterior lower extremity (Chronic) Amputation, traumatic, leg (Chronic) HTN (hypertension) (Chronic) Hypertension (Chronic) Peripheral arterial disease (Chronic) SVT (supraventricular tachycardia) (Chronic) Hypercoagulable state (Chronic) Wound, surgical, nonhealing (Chronic) Ischemic ulcer of right foot (Chronic) Allergies/Adverse Reactions: Allergies Penicillins Allergy (Verified 08/10/18 10:05) Swelling adhesive tape Adverse Reaction (Verified 08/10/18 10:05) Rash Home Medications: Ambulatory Orders Medication Instructions Recorded Atorvastatin Calcium [Lipitor] 40 mg PO QHS 04/03/18 Carvedilol 12.5 mg PO DAILY 04/03/18 Diazepam [Valium] 5 mg PO 4X/DAY PRN #30 tab 05/30/18 Docusate Sodium [Colace] 100 mg PO BID #60 cap 05/30/18 Iron Polysaccharide Complex 150 mg PO DAILYCM #30 cap 05/30/18 [Ferrex 150] Mupirocin [Bactroban] 1 applic TOPICAL .QDAILY #2 tube 05/30/18 gabapentin 300 mg capsule 1,800 mg PO BID #360 cap 06/28/18 levofloxacin 500 mg tablet 500 mg PO DAILY 07/13/18 sertraline 25 mg tablet 25 mg PO DAILY PRN 07/13/18 amlodipine 2.5 mg tablet 2.5 mg PO DAILY #30 tab 08/10/18 apixaban 5 mg tablet 5 mg PO BID #60 tab 08/10/18 metronidazole 500 mg tablet 500 mg PO TID #30 tab 08/19/18 Maternal Family History: Family History (Last Reviewed 08/10/18 @ 10:08 by Aleja Lutz) Other CVA (cerebral vascular accident) Cancer Heart disease Family History: Cancer, Diabetes, Heart Disease, Renal Disease Paternal Family History: Family History (Last Reviewed 08/10/18 @ 10:08 by Aleja Lutz) Other CVA (cerebral vascular accident) Cancer Heart disease Family History: Cancer Smoking Status: Former smoker Alcohol: None Drugs: None Physical Exam Vital Signs Temp Pulse Resp BP 97.3 F L 85 16 136/95 H 08/13/18 09:54 08/13/18 09:54 08/13/18 09:54 08/13/18 09:54 Assessment/Plan Active Problems (Last Reviewed 08/10/18 @ 10:08 by Aleja Lutz) Partial loss of skin graft (Acute) 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)
--- NOTE | 2018-08-15 13:35 | PCM.HBO.PN ---
History of Present Illness Date of Service: 08/15/18 Presenting Chief Complaint: Nonhealing ulcer left BKA stump with recent surgical closure 05/25/18 and mild skin graft/flap compromise. JANIE CHIN is a 52 year old currently undergoing hyperbaric oxygen therapy for nonhealing ulcer of left BKA stump with recent surgical closure 05/25/18 and skin graft/flap compromise. Progress: Patient appears to be tolerating hyperbaric oxygen therapy well. Today represents the 30th such session of hyperbaric oxygen therapy. Tolerance of hyperbaric oxygen therapy: Hyperbaric oxygen therapy was administered as per the facility's protocol. The patient tolerated hyperbaric oxygen therapy well, without complaints or complications. Upon emergence from the hyperbaric chamber, patient's vital signs remained stable. Patient was discharged in good condition. 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) Patient is on Coumadin for PE Chronic osteomyelitis of left tibia (Chronic) chronic osteomyelitis left tibia at BKA stump 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) Pain of amputation stump of left lower extremity (Chronic) Dermatitis (Chronic) CAD (coronary artery disease) (Chronic) Osteomyelitis of left lower extremity (Chronic) Pain of left anterior lower extremity (Chronic) Amputation, traumatic, leg (Chronic) HTN (hypertension) (Chronic) Hypertension (Chronic) Peripheral arterial disease (Chronic) SVT (supraventricular tachycardia) (Chronic) Hypercoagulable state (Chronic) Wound, surgical, nonhealing (Chronic) Ischemic ulcer of right foot (Chronic) Allergies/Adverse Reactions: Allergies Penicillins Allergy (Verified 08/10/18 10:05) Swelling adhesive tape Adverse Reaction (Verified 08/10/18 10:05) Rash Home Medications: Ambulatory Orders Medication Instructions Recorded Atorvastatin Calcium [Lipitor] 40 mg PO QHS 04/03/18 Carvedilol 12.5 mg PO DAILY 04/03/18 Diazepam [Valium] 5 mg PO 4X/DAY PRN #30 tab 05/30/18 Docusate Sodium [Colace] 100 mg PO BID #60 cap 05/30/18 Iron Polysaccharide Complex 150 mg PO DAILYCM #30 cap 05/30/18 [Ferrex 150] Mupirocin [Bactroban] 1 applic TOPICAL .QDAILY #2 tube 05/30/18 gabapentin 300 mg capsule 1,800 mg PO BID #360 cap 06/28/18 levofloxacin 500 mg tablet 500 mg PO DAILY 07/13/18 sertraline 25 mg tablet 25 mg PO DAILY PRN 07/13/18 amlodipine 2.5 mg tablet 2.5 mg PO DAILY #30 tab 08/10/18 apixaban 5 mg tablet 5 mg PO BID #60 tab 08/10/18 Maternal Family History: Family History (Last Reviewed 08/10/18 @ 10:08 by Aleja Lutz) Other CVA (cerebral vascular accident) Cancer Heart disease Family History: Cancer, Diabetes, Heart Disease, Renal Disease Paternal Family History: Family History (Last Reviewed 08/10/18 @ 10:08 by Aleja Lutz) Other CVA (cerebral vascular accident) Cancer Heart disease Family History: Cancer Smoking Status: Former smoker Alcohol: None Drugs: None Physical Exam Vital Signs Temp Pulse Resp BP 97.3 F L 85 16 136/95 H 08/13/18 09:54 08/13/18 09:54 08/13/18 09:54 08/13/18 09:54 General: Alert, Oriented x3, Cooperative, No apparent distress HEENT: Atraumatic, TM's Clear Lungs: No rhonchi, No rales, Wheezes - faint global Cardiovascular: No murmurs, Irregular Rate - patient reports he has PVCs at times Psych/Mental Status: Normal Affect, Appropriate, Alert and oriented to time, place, person, mood and affect Assessment/Plan He is tolerating treatment and Hyperbaric oxygen therapy will continue as determined by the patient's medical plan.
[2018-08-15 14:11] VITALS: BP 144/84; PULSE 87; RESP 18; TEMP 36.4
[2018-08-20 08:09] VITALS: BP 150/103; PULSE 92; RESP 18; TEMP 36.6; BMI 23.2
[2018-08-20 09:00] VITALS: BP 123/74; BP 125/81; PULSE 63; PULSE 78; RESP 16; TEMP 36.5
--- NOTE | 2018-08-20 09:10 | PCM.WC.PN ---
(1) Ulceration of below knee amputation stump Status: Chronic Current Visit: Yes Code(s): T87.89 - Other complications of amputation stump; L97.809 - Non-pressure chronic ulcer of other part of unspecified lower leg with unspecified severity (2) Status post below knee amputation of left lower extremity Status: Chronic Current Visit: Yes Code(s): Z89.512 - Acquired absence of left leg below knee (3) Chronic osteomyelitis of left tibia Status: Chronic Current Visit: Yes Code(s): M86.662 - Other chronic osteomyelitis, left tibia and fibula Comment: chronic osteomyelitis left tibia at BKA stump (4) Pain of amputation stump of left lower extremity Status: Chronic Current Visit: Yes Code(s): T87.89 - Other complications of amputation stump; M79.605 - Pain in left leg (5) Pain of left anterior lower extremity Status: Chronic Current Visit: Yes Code(s): M79.605 - Pain in left leg (6) Partial loss of skin graft Status: Acute Current Visit: Yes Code(s): T86.828 - Other complications of skin graft (allograft) (autograft) (7) Peripheral arterial disease Status: Chronic Current Visit: Yes Code(s): I73.9 - Peripheral vascular disease, unspecified (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 History of Wound: Surgery 05/25/18 - 1. Surgical preparation left BKA stump with excisional debridement nonhealing infected ulcer. 2. Complex secondary wound closure revision reconstruction with re-advancement muscle flap and bipedicle anterior leg fasciocutaneous advancement flap and STSG from the left flank (60 cm2). Surgery 04/05/18 - 1. Surgical preparation left BKA stump with incision and drainage and excisional debridement nonhealing infected ulcer. 2. Partial ostectomy tibia for osteomyelitis. Wound care - Acetic acid. Operative culture - MRSA. Soft tissue from 04/05/18 surgery - negative. Bone from 04/05/18 surgery - negative. Pathology from 04/05/18 surgery - negative for ostemyelitis. He was discharged on Bactrim DS. He has since finished the Bactrim DS. Initially perioperatively he was on Vancomycin. His Creatinine increased to 1.70 and the Vancomycin was stopped. At discharge his Creatinine had decreased to 1.49. He had Creatinine rechecked on 06/29/18 which was 1.96. Repeat Creatinine on 07/20/18 has decreased to 1.31. He had another wound culture done on 06/18/18 which showed Pseudomonas aeroginosa. He was placed on Levaquin and fininshed them. On 08/06/18, another wound culture was done because of increased odor. It showed Pseudomonas aeroginosa and Anaerobic cocci. He was started on Cipro and will add Flagyl. Prealbumin from 05/26/18 was 17.5. Encourage nutritional supplementation with protein to help the healing process. MRI left BKA stump in 10/13 showed osteomyelitis. He changed his anticoagulation medication and stopped the Coumadin and started Eliquis. Today he denies fever. His appetite is good. With his early compromise to the skin graft/flap, he has started HBO treatments to help salvage the compromised graft/flap and is tolerating them thus far. There has been improvement in the healing of the compromised graft/flap but with the recent culture that showed Pseudomonas and anaerobes, he would benefit from continued HBO treatments. Progress of Wound: Surgery 05/25/18 with mild skin graft/flap compromise. - Physical Exam Vital Signs Temp Pulse Resp BP 97.8 F 92 18 150/103 H 08/20/18 08:09 08/20/18 08:09 08/20/18 08:09 08/20/18 08:09 General: Alert, Oriented x3, Cooperative HEENT: Atraumatic Oral: Moist Mucosa Lungs: Clear to auscultation, Normal air movement Cardiovascular: Regular rate, Regular Rhythm Extremities: No edema, Capillary Refill Less than 3 Seconds Skin: Ulcer/ Wound - Left BKA stump Wound Measurements and Assessment WC - Nurse 1 - General Ulcer Measurement Start: 07/27/18 10:12 Freq: Status: Active Protocol: Activity Type Activity Date Activity User E-Sign Co-Sign Detail Recorded Client Recorded Date Recorded By Document 08/20/18 08:09 DL [id number] 08/20/18 08:18 DL 08/20/18 08:09 Wound Center Nurse 1 [Ulcer Assessment] #5 L BKA stump -Current Size (cm) - Length 4.5 -Current Size (cm) - Width 9 -Current Size (cm) - Depth 0.4 -Total Square Cm 40.5 -Photo Taken Yes -Exudate Amt Small -Exudate Type Serosanguineous -Wound Margin Distinct, Outline Attached -Granulation Amt Medium (34-66%) -Granulation Quality [place] Red -Necrosis Amt Medium (34-66%) -Necrotic Tissue Type Adherent Slough -Texture (Ami-wound Skin Appearance) Localized Edema Scarring -Moisture (Ami-wound Skin Appearance No Abnormality ) -Color (Ami-wound Skin Appearance) No Abnormality -Temperature (Ami-wound Skin No Abnormality Appearance) (Pt Warm) -Tenderness on Palpation (Ami-wound No Skin Appearance) -Ulcer Cleansing Wound Cleanser -Foul Odor after Cleansing No -Anesthetic Used 4% Lidocaine Solution - Nurse 2 - General Ulcer CM Notes Start: 07/27/18 10:12 Freq: Status: Active Protocol: Activity Type Activity Date Activity User E-Sign Co-Sign Detail Recorded Client Recorded Date Recorded By Document 08/20/18 08:35 [id number] 08/20/18 08:42 08/20/18 08:35 Wound Center Nurse 2 [Procedure/Treatment] -Time 08:35 -Correct Patient Yes -Correct Side, Site, Position Yes -Correct Procedure Yes -Procedure Performed Yes -Type of Procedure Debridement -Clinical Debridement Subcutaneous -Post Debridement Size (cm) - Length 4 -Post Debridement Size (cm) - Width 9.5 -Post Debridement Size (cm) - Depth 0.8 -Total Square Cm 38.0 -Wound/Ulcer Outcome Not Healed -Ulcer Cleansing Rinsed/ Irrigated with Saline -Foul Odor after Cleansing No -Bioengineered Tissue No -Bleeding Controlled with Pressure -Offloading No -Treatment Response Procedure Tolerated Well [See Physician Procedure note for Specifics] Pain Scale: 0-10 Numeric [Pain] -Is Patient Pain Free? Yes Musculoskeletal: No Tenderness to Palpation of Joints or Extremities Neurological: Neuro grossly intact Psych/Mental Status: Normal Affect, Appropriate Debridement Note Post-Debridement Measurements/Treatment - Nurse 2 - General Ulcer CM Notes Start: 07/27/18 10:12 Freq: Status: Active Protocol: Activity Type Activity Date Activity User E-Sign Co-Sign Detail Recorded Client Recorded Date Recorded By Document 08/06/18 08:42 [id number] 08/06/18 08:54 Document 08/13/18 08:39 [id number] 08/13/18 08:41 Document 08/20/18 08:35 [id number] 08/20/18 08:42 08/06/18 08/13/18 08/20/18 08:42 08:39 08:35 Wound Center Nurse 2 #5 L BKA stump -Time 08:42 08:39 08:35 -Correct Patient Yes Yes Yes -Correct Side, Site, Position Yes Yes Yes -Correct Procedure Yes Yes Yes -Procedure Performed Yes Yes Yes -Type of Procedure Debridement Debridement Debridement -Clinical Debridement Subcutaneous Subcutaneous Subcutaneous -Post Debridement Size (cm) - Length 4.8 4.4 4 -Post Debridement Size (cm) - Width 9.3 10.0 9.5 -Post Debridement Size (cm) - Depth 1.0 1.0 0.8 -Total Square Cm 44.64 44.00 38.0 -Wound/Ulcer Outcome Not Healed Not Healed Not Healed -Ulcer Cleansing Rinsed/ Rinsed/ Rinsed/ Irrigated with Irrigated with Irrigated with Saline Saline Saline -Foul Odor after Cleansing No No No -Bioengineered Tissue No No No -Bleeding Controlled with Pressure Pressure Pressure -Offloading No No No -Treatment Response Procedure Procedure Procedure Tolerated Well Tolerated Well Tolerated Well Pain Scale: 0-10 Numeric Is Patient Pain Free? 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 Nonhealing ulcer left BKA stump with recent surgical closure 05/25/18. 2. Pain left BKA stump. 3. MRSA. 4. 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 5. 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 6. 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 7. Early skin graft/flap compromise left BKA stump, (20% compromise). 8. s/p surgical preparation left BKA stump with excisional debridement nonhealing infected ulcer and complex secondary wound closure revision reconstruction with re-advancement muscle flap and bipedicle anterior leg fasciocutaneous advancement flap and STSG from the left flank (60 cm2). 9. JUAN (acute kidney injury), probable medication related, resolving. Plan: With the recent culture showing Pseudomonas, the wound care was changed to Acetic Acid. The Silver was stopped. The Santyl is on hold. The wound shows good improvement since last visit with the starting of the Acetic Acid. There was some concern that he would need IV antibiotics for the Pseudomonas since it can be destructive to tissue and he already finished a course of Levaquin. He was placed on Cipro this time since the Levaquin had intermediate sensitivity. He was also started on Flagyl for Anaerobic cocci. Since the wound has shown improvement with the Acetic Acid, will hold off on IV antibiotics at this time. However will assess at each visit. If his healing worsens, will change to IV antibiotics at that point. That would require admission to the hospital and placement of a PICC line. After more healing is seen, will consider placement of placental connective tissue graft (Epifix) or Thera-skin. He has finished the Bactrim DS for MRSA. He has finished the Levaquin for Pseudomonas aeroginosa. The skin graft shows good adherence and about 85% take and good vascular ingrowth. There is some mild compromise at the inferior edge of the skin graft (about 15% compromise). The stump incision showed some superficial wound separation which is healing satisfactory. The stump is soft and swelling has resolved. The central aspect of the stump anteriorly shows some mild compromise (about 10%). After debridement, the underlying subcutaneous tissue continues to appear viable with no exposure of bone. With the mild skin graft/flap compromise (about 25% total), he started HBO treatments which would help salvage the compromised graft/flap. He is tolerating the HBO treatments thus far. There has been improvement in the healing of the compromised graft/flap but with the recent culture that showed Pseudomonas and anaerobes, he would benefit from continued HBO treatments as Pseudomonas can be destructive to tissue. Continued wound healing progress can be made with continuation of HBO treatments. Not only are we trying to salvage the compromised graft/flap, we are also trying to salvage the stump itself. Because if HBO treatments are stopped too soon and the tissue destruction continues with the Pseudomonas, the wound is at risk of eroding to the bone which increases the risk of revising the BKA stump to an AKA stump. The AKA necessitates a more complex prosthesis which will prolong rehab in the future. Prealbumin from the hospital was 17.5. Encourage nutritional supplementation with protein to help the healing process. After his last surgery in April, he had been on Vancomycin for a day which was stopped when his Creatinine increased to 1.70. It then decreased down to 1.49 before increasing back up to 1.96 and then most recently decreased back to 1.31 on 07/20/18. Encourage hydration. He has returned to work and is doing ok. Discussed with the patient that the presence of MRSA and Pseudomonas can be destructive to the surrounding tissue leading to suboptimal healing. Renewed his Percocet for pain (30 tabs). OARRS report reviewed. Followup one week. Code Visit [id number]
--- NOTE | 2018-08-20 09:15 | PN.PCM_ITS ---
(1) Ulceration of below knee amputation stump Status: Chronic Current Visit: Yes Code(s): T87.89 - Other complications of amputation stump; L97.809 - Non-pressure chronic ulcer of other part of unspecified lower leg with unspecified severity (2) Status post below knee amputation of left lower extremity Status: Chronic Current Visit: Yes Code(s): Z89.512 - Acquired absence of left leg below knee (3) Chronic osteomyelitis of left tibia Status: Chronic Current Visit: Yes Code(s): M86.662 - Other chronic osteomyelitis, left tibia and fibula Comment: chronic osteomyelitis left tibia at BKA stump (4) Pain of amputation stump of left lower extremity Status: Chronic Current Visit: Yes Code(s): T87.89 - Other complications of amputation stump; M79.605 - Pain in left leg (5) Pain of left anterior lower extremity Status: Chronic Current Visit: Yes Code(s): M79.605 - Pain in left leg (6) Partial loss of skin graft Status: Acute Current Visit: Yes Code(s): T86.828 - Other complications of skin graft (allograft) (autograft) (7) Peripheral arterial disease Status: Chronic Current Visit: Yes Code(s): I73.9 - Peripheral vascular disease, unspecified (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 History of Wound: Surgery 05/25/18 - 1. Surgical preparation left BKA stump with excisional debridement nonhealing infected ulcer. 2. Complex secondary wound closure revision reconstruction with re-advancement muscle flap and bipedicle anterior leg fasciocutaneous advancement flap and STSG from the left flank (60 cm2). Surgery 04/05/18 - 1. Surgical preparation left BKA stump with incision and drainage and excisional debridement nonhealing infected ulcer. 2. Partial ostectomy tibia for osteomyelitis. Wound care - Acetic acid. Operative culture - MRSA. Soft tissue from 04/05/18 surgery - negative. Bone from 04/05/18 surgery - negative. Pathology from 04/05/18 surgery - negative for ostemyelitis. He was discharged on Bactrim DS. He has since finished the Bactrim DS. Initially perioperatively he was on Vancomycin. His Creatinine increased to 1.70 and the Vancomycin was stopped. At discharge his Creatinine had decreased to 1.49. He had Creatinine rechecked on 06/29/18 which was 1.96. Repeat Creatinine on 07/20/18 has decreased to 1.31. He had another wound culture done on 06/18/18 which showed Pseudomonas aeroginosa. He was placed on Levaquin and fininshed them. On 08/06/18, another wound culture was done because of increased odor. It showed Pseudomonas aeroginosa and Anaerobic cocci. He was started on Cipro and will add Flagyl. Prealbumin from 05/26/18 was 17.5. Encourage nutritional supplementation with protein to help the healing process. MRI left BKA stump in 10/13 showed osteomyelitis. He changed his anticoagulation medication and stopped the Coumadin and started Eliquis. Today he denies fever. His appetite is good. With his early compromise to the skin graft/flap, he has started HBO treatments to help salvage the compromised graft/flap and is tolerating them thus far. There has been improvement in the healing of the compromised graft/flap but with the recent culture that showed Pseudomonas and anaerobes, he would benefit from continued HBO treatments. Progress of Wound: Surgery 05/25/18 with mild skin graft/flap compromise. - Physical Exam Vital Signs Temp Pulse Resp BP 97.8 F 92 18 150/103 H 08/20/18 08:09 08/20/18 08:09 08/20/18 08:09 08/20/18 08:09 General: Alert, Oriented x3, Cooperative HEENT: Atraumatic Oral: Moist Mucosa Lungs: Clear to auscultation, Normal air movement Cardiovascular: Regular rate, Regular Rhythm Extremities: No edema, Capillary Refill Less than 3 Seconds Skin: Ulcer/ Wound - Left BKA stump Wound Measurements and Assessment WC - Nurse 1 - General Ulcer Measurement Start: 07/27/18 10:12 Freq: Status: Active Protocol: Activity Type Activity Date Activity User E-Sign Co-Sign Detail Recorded Client Recorded Date Recorded By Document 08/20/18 08:09 DL [id number] 08/20/18 08:18 DL 08/20/18 08:09 Wound Center Nurse 1 [Ulcer Assessment] #5 L BKA stump -Current Size (cm) - Length 4.5 -Current Size (cm) - Width 9 -Current Size (cm) - Depth 0.4 -Total Square Cm 40.5 -Photo Taken Yes -Exudate Amt Small -Exudate Type Serosanguineous -Wound Margin Distinct, Outline Attached -Granulation Amt Medium (34-66%) -Granulation Quality Whitakers Red -Necrosis Amt Medium (34-66%) -Necrotic Tissue Type Adherent Slough -Texture (Ami-wound Skin Appearance) Localized Edema Scarring -Moisture (Ami-wound Skin Appearance No Abnormality ) -Color (Ami-wound Skin Appearance) No Abnormality -Temperature (Ami-wound Skin No Abnormality Appearance) (Pt Warm) -Tenderness on Palpation (Ami-wound No Skin Appearance) -Ulcer Cleansing Wound Cleanser -Foul Odor after Cleansing No -Anesthetic Used 4% Lidocaine Solution - Nurse 2 - General Ulcer CM Notes Start: 07/27/18 10:12 Freq: Status: Active Protocol: Activity Type Activity Date Activity User E-Sign Co-Sign Detail Recorded Client Recorded Date Recorded By Document 08/20/18 08:35 [id number] 08/20/18 08:42 08/20/18 08:35 Wound Center Nurse 2 [Procedure/Treatment] -Time 08:35 -Correct Patient Yes -Correct Side, Site, Position Yes -Correct Procedure Yes -Procedure Performed Yes -Type of Procedure Debridement -Clinical Debridement Subcutaneous -Post Debridement Size (cm) - Length 4 -Post Debridement Size (cm) - Width 9.5 -Post Debridement Size (cm) - Depth 0.8 -Total Square Cm 38.0 -Wound/Ulcer Outcome Not Healed -Ulcer Cleansing Rinsed/ Irrigated with Saline -Foul Odor after Cleansing No -Bioengineered Tissue No -Bleeding Controlled with Pressure -Offloading No -Treatment Response Procedure Tolerated Well [See Physician Procedure note for Specifics] Pain Scale: 0-10 Numeric [Pain] -Is Patient Pain Free? Yes Musculoskeletal: No Tenderness to Palpation of Joints or Extremities Neurological: Neuro grossly intact Psych/Mental Status: Normal Affect, Appropriate Debridement Note Post-Debridement Measurements/Treatment - Nurse 2 - General Ulcer CM Notes Start: 07/27/18 10:12 Freq: Status: Active Protocol: Activity Type Activity Date Activity User E-Sign Co-Sign Detail Recorded Client Recorded Date Recorded By Document 08/06/18 08:42 [id number] 08/06/18 08:54 Document 08/13/18 08:39 [id number] 08/13/18 08:41 Document 08/20/18 08:35 [id number] 08/20/18 08:42 08/06/18 08/13/18 08/20/18 08:42 08:39 08:35 Wound Center Nurse 2 #5 L BKA stump -Time 08:42 08:39 08:35 -Correct Patient Yes Yes Yes -Correct Side, Site, Position Yes Yes Yes -Correct Procedure Yes Yes Yes -Procedure Performed Yes Yes Yes -Type of Procedure Debridement Debridement Debridement -Clinical Debridement Subcutaneous Subcutaneous Subcutaneous -Post Debridement Size (cm) - Length 4.8 4.4 4 -Post Debridement Size (cm) - Width 9.3 10.0 9.5 -Post Debridement Size (cm) - Depth 1.0 1.0 0.8 -Total Square Cm 44.64 44.00 38.0 -Wound/Ulcer Outcome Not Healed Not Healed Not Healed -Ulcer Cleansing Rinsed/ Rinsed/ Rinsed/ Irrigated with Irrigated with Irrigated with Saline Saline Saline -Foul Odor after Cleansing No No No -Bioengineered Tissue No No No -Bleeding Controlled with Pressure Pressure Pressure -Offloading No No No -Treatment Response Procedure Procedure Procedure Tolerated Well Tolerated Well Tolerated Well Pain Scale: 0-10 Numeric Is Patient Pain Free? Yes Yes Yes Wound debrided: Left BKA Laterality: Left Type of Debridement: Excisional debridement Anesthesia Used: 4% Lidocaine Solution, 5% Lidocaine Gel Depth: Down to and including healthy tissue, in the subcutaneous layer Percentage of wound debrided: 100 Instrument Used: 7mm curette Tissue Removed: Subcutaneous tissue and slough Severity: Fat Layer Exposed Amount of bleeding with debridement: Mild Bleeding Controlled with: Pressure Patient tolerated procedure well Assessment/Plan Active Problems (Last Reviewed 08/10/18 @ 10:08 by Aleja Lutz) Partial loss of skin graft (Acute) Methicillin resistant Staphylococcus aureus infection (Chronic) 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) 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 Nonhealing ulcer left BKA stump with recent surgical closure 05/25/18. 2. Pain left BKA stump. 3. MRSA. 4. 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 5. 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 6. terminal operator use of anticoagulation. 7. Early skin graft/flap compromise left BKA stump, (20% compromise). 8. s/p surgical preparation left BKA stump with excisional debridement nonhealing infected ulcer and complex secondary wound closure revision reconstruction with re-advancement muscle flap and bipedicle anterior leg fasciocutaneous advancement flap and STSG from the left flank (60 cm2). 9. JUAN (acute kidney injury), probable medication related, resolving. Plan: With the recent culture showing Pseudomonas, the wound care was changed to Acetic Acid. The Silver was stopped. The Santyl is on hold. The wound shows good improvement since last visit with the starting of the Acetic Acid. There was some concern that he would need IV antibiotics for the Pseudomonas since it can be destructive to tissue and he already finished a course of Levaquin. He was placed on Cipro this time since the Levaquin had intermediate sensitivity. He was also started on Flagyl for Anaerobic cocci. Since the wound has shown improvement with the Acetic Acid, will hold off on IV antibiotics at this time. However will assess at each visit. If his healing worsens, will change to IV antibiotics at that point. That would require admission to the hospital and placement of a PICC line. After more healing is seen, will consider placement of placental connective tissue graft (Epifix) or Thera-skin. He has finished the Bactrim DS for MRSA. He has finished the Levaquin for Pseudomonas aeroginosa. The skin graft shows good adherence and about 85% take and good vascular ingrowth. There is some mild compromise at the inferior edge of the skin graft (about 15% compromise). The stump incision showed some superficial wound separation which is healing satisfactory. The stump is soft and swelling has resolved. The central aspect of the stump anteriorly shows some mild compromise (about 10%). After debridement, the underlying subcutaneous tissue continues to appear viable with no exposure of bone. With the mild skin graft/flap compromise (about 25% total), he started HBO treatments which would help salvage the compromised graft/flap. He is tolerating the HBO treatments thus far. There has been improvement in the healing of the compromised graft/flap but with the recent culture that showed Pseudomonas and anaerobes, he would benefit from continued HBO treatments as Pseudomonas can be destructive to tissue. Continued wound healing progress can be made with continuation of HBO treatments. Not only are we trying to salvage the compromised graft/flap, we are also trying to salvage the stump itself. Because if HBO treatments are stopped too soon and the tissue destruction continues with the Pseudomonas, the wound is at risk of eroding to the bone which increases the risk of revising the BKA stump to an AKA stump. The AKA necessitates a more complex prosthesis which will prolong rehab in the future. Prealbumin from the hospital was 17.5. Encourage nutritional supplementation with protein to help the healing process. After his last surgery in April, he had been on Vancomycin for a day which was stopped when his Creatinine increased to 1.70. It then decreased down to 1.49 before increasing back up to 1.96 and then most recently decreased back to 1.31 on 07/20/18. Encourage hydration. He has returned to work and is doing ok. Discussed with the patient that the presence of MRSA and Pseudomonas can be destructive to the surrounding tissue leading to suboptimal healing. Renewed his Percocet for pain (30 tabs). OARRS report reviewed. Followup one week. Code Visit 02295
--- NOTE | 2018-08-20 13:39 | HBO.PN.PCM_ITS ---
History of Present Illness Date of Service: 08/20/18 Presenting Chief Complaint: Nonhealing ulcer left BKA stump with recent surgical closure 05/25/18 and mild skin graft/flap compromise. JANIE CHIN is a 52 year old currently undergoing hyperbaric oxygen therapy for nonhealing ulcer of left BKA stump with recent surgical closure 05/25/18 and skin graft/flap compromise. Progress: Patient appears to be tolerating hyperbaric oxygen therapy well. Today represents the 33rd such session of hyperbaric oxygen therapy. Tolerance of hyperbaric oxygen therapy: Hyperbaric oxygen therapy was administered as per the facility's protocol. The patient tolerated hyperbaric oxygen therapy well, without complaints or complications. Upon emergence from the hyperbaric chamber, patient's vital signs remained stable. Patient was discharged in good condition. 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) Patient is on Coumadin for PE Chronic osteomyelitis of left tibia (Chronic) chronic osteomyelitis left tibia at BKA stump 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) Pain of amputation stump of left lower extremity (Chronic) Dermatitis (Chronic) CAD (coronary artery disease) (Chronic) Osteomyelitis of left lower extremity (Chronic) Pain of left anterior lower extremity (Chronic) Amputation, traumatic, leg (Chronic) HTN (hypertension) (Chronic) Hypertension (Chronic) Peripheral arterial disease (Chronic) SVT (supraventricular tachycardia) (Chronic) Hypercoagulable state (Chronic) Wound, surgical, nonhealing (Chronic) Ischemic ulcer of right foot (Chronic) Allergies/Adverse Reactions: Allergies Penicillins Allergy (Verified 08/10/18 10:05) Swelling adhesive tape Adverse Reaction (Verified 08/10/18 10:05) Rash Home Medications: Ambulatory Orders Medication Instructions Recorded Atorvastatin Calcium [Lipitor] 40 mg PO QHS 04/03/18 Carvedilol 12.5 mg PO DAILY 04/03/18 Diazepam [Valium] 5 mg PO 4X/DAY PRN #30 tab 05/30/18 Docusate Sodium [Colace] 100 mg PO BID #60 cap 05/30/18 Iron Polysaccharide Complex 150 mg PO DAILYCM #30 cap 05/30/18 [Ferrex 150] Mupirocin [Bactroban] 1 applic TOPICAL .QDAILY #2 tube 05/30/18 gabapentin 300 mg capsule 1,800 mg PO BID #360 cap 06/28/18 levofloxacin 500 mg tablet 500 mg PO DAILY 07/13/18 sertraline 25 mg tablet 25 mg PO DAILY PRN 07/13/18 amlodipine 2.5 mg tablet 2.5 mg PO DAILY #30 tab 08/10/18 apixaban 5 mg tablet 5 mg PO BID #60 tab 08/10/18 metronidazole 500 mg tablet 500 mg PO TID #30 tab 08/19/18 Maternal Family History: Family History (Last Reviewed 08/10/18 @ 10:08 by Aleja Lutz) Other CVA (cerebral vascular accident) Cancer Heart disease Family History: Cancer, Diabetes, Heart Disease, Renal Disease Paternal Family History: Family History (Last Reviewed 08/10/18 @ 10:08 by Aleja Lutz) Other CVA (cerebral vascular accident) Cancer Heart disease Family History: Cancer Smoking Status: Former smoker Alcohol: None Drugs: None Physical Exam Vital Signs Temp Pulse Resp BP 97.7 F L 78 16 125/81 H 08/20/18 09:00 08/20/18 09:00 08/20/18 09:00 08/20/18 09:00 General: Alert, Oriented x3, Cooperative HEENT: Atraumatic, TM's Clear Lungs: Clear to auscultation, Normal air movement Cardiovascular: Regular rate, Regular Rhythm Psych/Mental Status: Normal Affect, Appropriate, Alert and oriented to time, place, person, mood and affect Assessment/Plan Active Problems (Last Reviewed 08/10/18 @ 10:08 by Aleja Lutz) Partial loss of skin graft (Acute) Methicillin resistant Staphylococcus aureus infection (Chronic) 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) 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
[2018-08-21 13:44] VITALS: BP 143/84; BP 148/90; PULSE 63; PULSE 88; RESP 16; RESP 18; TEMP 36.6
--- NOTE | 2018-08-21 14:33 | HBO.PN.PCM_ITS ---
History of Present Illness Date of Service: 08/21/18 Presenting Chief Complaint: Nonhealing ulcer left BKA stump with recent surgical closure 05/25/18 and mild skin graft/flap compromise. JANIE CHIN is a 52 year old currently undergoing hyperbaric oxygen therapy for nonhealing ulcer of left BKA stump with recent surgical closure 05/25/18 and skin graft/flap compromise. Progress: Patient appears to be tolerating hyperbaric oxygen therapy well. Today represents the 34th such session of hyperbaric oxygen therapy. Tolerance of hyperbaric oxygen therapy: Hyperbaric oxygen therapy was administered as per the facility's protocol. The patient tolerated hyperbaric oxygen therapy well, without complaints or complications. Upon emergence from the hyperbaric chamber, patient's vital signs remained stable. Patient was discharged in good condition. 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) Patient is on Coumadin for PE Chronic osteomyelitis of left tibia (Chronic) chronic osteomyelitis left tibia at BKA stump 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) Pain of amputation stump of left lower extremity (Chronic) Dermatitis (Chronic) CAD (coronary artery disease) (Chronic) Osteomyelitis of left lower extremity (Chronic) Pain of left anterior lower extremity (Chronic) Amputation, traumatic, leg (Chronic) HTN (hypertension) (Chronic) Hypertension (Chronic) Peripheral arterial disease (Chronic) SVT (supraventricular tachycardia) (Chronic) Hypercoagulable state (Chronic) Wound, surgical, nonhealing (Chronic) Ischemic ulcer of right foot (Chronic) Allergies/Adverse Reactions: Allergies Penicillins Allergy (Verified 08/10/18 10:05) Swelling adhesive tape Adverse Reaction (Verified 08/10/18 10:05) Rash Home Medications: Ambulatory Orders Medication Instructions Recorded Atorvastatin Calcium [Lipitor] 40 mg PO QHS 04/03/18 Carvedilol 12.5 mg PO DAILY 04/03/18 Diazepam [Valium] 5 mg PO 4X/DAY PRN #30 tab 05/30/18 Docusate Sodium [Colace] 100 mg PO BID #60 cap 05/30/18 Iron Polysaccharide Complex 150 mg PO DAILYCM #30 cap 05/30/18 [Ferrex 150] Mupirocin [Bactroban] 1 applic TOPICAL .QDAILY #2 tube 05/30/18 gabapentin 300 mg capsule 1,800 mg PO BID #360 cap 06/28/18 levofloxacin 500 mg tablet 500 mg PO DAILY 07/13/18 sertraline 25 mg tablet 25 mg PO DAILY PRN 07/13/18 amlodipine 2.5 mg tablet 2.5 mg PO DAILY #30 tab 08/10/18 apixaban 5 mg tablet 5 mg PO BID #60 tab 08/10/18 metronidazole 500 mg tablet 500 mg PO TID #30 tab 08/19/18 Maternal Family History: Family History (Last Reviewed 08/10/18 @ 10:08 by Aleja Lutz) Other CVA (cerebral vascular accident) Cancer Heart disease Family History: Cancer, Diabetes, Heart Disease, Renal Disease Paternal Family History: Family History (Last Reviewed 08/10/18 @ 10:08 by Aleja Lutz) Other CVA (cerebral vascular accident) Cancer Heart disease Family History: Cancer Smoking Status: Former smoker Alcohol: None Drugs: None Physical Exam Vital Signs Temp Pulse Resp BP 98 F 88 18 148/90 H 08/21/18 13:44 08/21/18 13:44 08/21/18 13:44 08/21/18 13:44 General: Alert, Oriented x3, Cooperative HEENT: Atraumatic, TM's Clear Lungs: Clear to auscultation, Normal air movement Cardiovascular: Regular rate, Regular Rhythm Psych/Mental Status: Normal Affect, Appropriate, Alert and oriented to time, place, person, mood and affect Assessment/Plan Active Problems (Last Reviewed 08/10/18 @ 10:08 by Aleja Lutz) Partial loss of skin graft (Acute) Methicillin resistant Staphylococcus aureus infection (Chronic) 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) 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
[2018-08-22 14:00] VITALS: BP 144/79; BP 145/82; PULSE 65; PULSE 68; RESP 16; TEMP 36.7; TEMP 37
--- NOTE | 2018-08-23 08:18 | PCM.HBO.PN ---
History of Present Illness Date of Service: 08/22/18 Presenting Chief Complaint: Nonhealing ulcer left BKA stump with recent surgical closure 05/25/18 and mild skin graft/flap compromise. JANIE CHIN is a 52 year old currently undergoing hyperbaric oxygen therapy for nonhealing ulcer of left BKA stump with recent surgical closure 05/25/18 and skin graft/flap compromise. Progress: Patient appears to be tolerating hyperbaric oxygen therapy well. Today represents the 35th such session of hyperbaric oxygen therapy. Tolerance of hyperbaric oxygen therapy: Hyperbaric oxygen therapy was administered as per the facility's protocol. The patient tolerated hyperbaric oxygen therapy well, without complaints or complications. Upon emergence from the hyperbaric chamber, patient's vital signs remained stable. Patient was discharged in good condition. 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) Patient is on Coumadin for PE Chronic osteomyelitis of left tibia (Chronic) chronic osteomyelitis left tibia at BKA stump 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) Pain of amputation stump of left lower extremity (Chronic) Dermatitis (Chronic) CAD (coronary artery disease) (Chronic) Osteomyelitis of left lower extremity (Chronic) Pain of left anterior lower extremity (Chronic) Amputation, traumatic, leg (Chronic) HTN (hypertension) (Chronic) Hypertension (Chronic) Peripheral arterial disease (Chronic) SVT (supraventricular tachycardia) (Chronic) Hypercoagulable state (Chronic) Wound, surgical, nonhealing (Chronic) Ischemic ulcer of right foot (Chronic) Allergies/Adverse Reactions: Allergies Penicillins Allergy (Verified 08/10/18 10:05) Swelling adhesive tape Adverse Reaction (Verified 08/10/18 10:05) Rash Home Medications: Ambulatory Orders Medication Instructions Recorded Atorvastatin Calcium [Lipitor] 40 mg PO QHS 04/03/18 Carvedilol 12.5 mg PO DAILY 04/03/18 Diazepam [Valium] 5 mg PO 4X/DAY PRN #30 tab 05/30/18 Docusate Sodium [Colace] 100 mg PO BID #60 cap 05/30/18 Iron Polysaccharide Complex 150 mg PO DAILYCM #30 cap 05/30/18 [Ferrex 150] Mupirocin [Bactroban] 1 applic TOPICAL .QDAILY #2 tube 05/30/18 gabapentin 300 mg capsule 1,800 mg PO BID #360 cap 06/28/18 levofloxacin 500 mg tablet 500 mg PO DAILY 07/13/18 sertraline 25 mg tablet 25 mg PO DAILY PRN 07/13/18 amlodipine 2.5 mg tablet 2.5 mg PO DAILY #30 tab 08/10/18 apixaban 5 mg tablet 5 mg PO BID #60 tab 08/10/18 metronidazole 500 mg tablet 500 mg PO TID #30 tab 08/19/18 Maternal Family History: Family History (Last Reviewed 08/10/18 @ 10:08 by Aleja Lutz) Other CVA (cerebral vascular accident) Cancer Heart disease Family History: Cancer, Diabetes, Heart Disease, Renal Disease Paternal Family History: Family History (Last Reviewed 08/10/18 @ 10:08 by Aleja Lutz) Other CVA (cerebral vascular accident) Cancer Heart disease Family History: Cancer Smoking Status: Former smoker Alcohol: None Drugs: None Physical Exam Vital Signs Temp Pulse Resp BP 98 F 88 18 148/90 H 08/21/18 13:44 08/21/18 13:44 08/21/18 13:44 08/21/18 13:44 General: Alert, Oriented x3, Cooperative, No apparent distress HEENT: Atraumatic, TM's Clear Lungs: Clear to auscultation, Normal air movement Cardiovascular: Regular rate, Regular Rhythm Psych/Mental Status: Normal Affect, Appropriate, Alert and oriented to time, place, person, mood and affect Assessment/Plan Active Problems (Last Reviewed 08/10/18 @ 10:08 by Aleja Lutz) Partial loss of skin graft (Acute) 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
[2018-08-23 14:00] VITALS: BP 143/80; BP 146/82; PULSE 80; PULSE 82; RESP 16; RESP 18; TEMP 36.8; TEMP 36.9
--- NOTE | 2018-08-23 16:57 | PCM.HBO.PN ---
History of Present Illness Date of Service: 08/23/18 Presenting Chief Complaint: Nonhealing ulcer left BKA stump with recent surgical closure 05/25/18 and mild skin graft/flap compromise. JANIE CHIN is a 52 year old currently undergoing hyperbaric oxygen therapy for nonhealing ulcer of left BKA stump with recent surgical closure 05/25/18 and skin graft/flap compromise. Progress: Patient appears to be tolerating hyperbaric oxygen therapy well. Today represents the 36th such session of hyperbaric oxygen therapy. Tolerance of hyperbaric oxygen therapy: Hyperbaric oxygen therapy was administered as per the facility's protocol. The patient tolerated hyperbaric oxygen therapy well, without complaints or complications. Upon emergence from the hyperbaric chamber, patient's vital signs remained stable. Patient was discharged in good condition. 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) Patient is on Coumadin for PE Chronic osteomyelitis of left tibia (Chronic) chronic osteomyelitis left tibia at BKA stump 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) Pain of amputation stump of left lower extremity (Chronic) Dermatitis (Chronic) CAD (coronary artery disease) (Chronic) Osteomyelitis of left lower extremity (Chronic) Pain of left anterior lower extremity (Chronic) Amputation, traumatic, leg (Chronic) HTN (hypertension) (Chronic) Hypertension (Chronic) Peripheral arterial disease (Chronic) SVT (supraventricular tachycardia) (Chronic) Hypercoagulable state (Chronic) Wound, surgical, nonhealing (Chronic) Ischemic ulcer of right foot (Chronic) Allergies/Adverse Reactions: Allergies Penicillins Allergy (Verified 08/10/18 10:05) Swelling adhesive tape Adverse Reaction (Verified 08/10/18 10:05) Rash Home Medications: Ambulatory Orders Medication Instructions Recorded Atorvastatin Calcium [Lipitor] 40 mg PO QHS 04/03/18 Carvedilol 12.5 mg PO DAILY 04/03/18 Diazepam [Valium] 5 mg PO 4X/DAY PRN #30 tab 05/30/18 Docusate Sodium [Colace] 100 mg PO BID #60 cap 05/30/18 Iron Polysaccharide Complex 150 mg PO DAILYCM #30 cap 05/30/18 [Ferrex 150] Mupirocin [Bactroban] 1 applic TOPICAL .QDAILY #2 tube 05/30/18 gabapentin 300 mg capsule 1,800 mg PO BID #360 cap 06/28/18 levofloxacin 500 mg tablet 500 mg PO DAILY 07/13/18 sertraline 25 mg tablet 25 mg PO DAILY PRN 07/13/18 apixaban 5 mg tablet 5 mg PO BID #60 tab 08/10/18 metronidazole 500 mg tablet 500 mg PO TID #30 tab 08/19/18 amlodipine 10 mg tablet 10 mg PO DAILY #90 tab 08/23/18 Maternal Family History: Family History (Last Reviewed 08/10/18 @ 10:08 by Aleja Lutz) Other CVA (cerebral vascular accident) Cancer Heart disease Family History: Cancer, Diabetes, Heart Disease, Renal Disease Paternal Family History: Family History (Last Reviewed 08/10/18 @ 10:08 by Aleja Lutz) Other CVA (cerebral vascular accident) Cancer Heart disease Family History: Cancer Smoking Status: Former smoker Alcohol: None Drugs: None Physical Exam Vital Signs Temp Pulse Resp BP 98 F 88 18 148/90 H 08/21/18 13:44 08/21/18 13:44 08/21/18 13:44 08/21/18 13:44 General: Alert, Oriented x3, Cooperative, No apparent distress HEENT: Atraumatic, PERRLA, Normocephalic, TM's Clear Lungs: Clear to auscultation, Normal air movement Cardiovascular: Regular rate, Regular Rhythm, Normal S1, Normal S2 Psych/Mental Status: Normal Affect, Appropriate, Alert and oriented to time, place, person, mood and affect Assessment/Plan Active Problems (Last Reviewed 08/10/18 @ 10:08 by Aleja Lutz) Partial loss of skin graft (Acute) 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
[2018-08-24 14:39] VITALS: BP 133/77; BP 150/91; PULSE 56; PULSE 79; RESP 16; TEMP 36.4; TEMP 36.6
--- NOTE | 2018-08-24 18:09 | PCM.HBO.PN ---
History of Present Illness Date of Service: 08/24/18 Presenting Chief Complaint: Nonhealing ulcer left BKA stump with recent surgical closure 05/25/18 and mild skin graft/flap compromise. JANIE CHIN is a 52 year old currently undergoing hyperbaric oxygen therapy for nonhealing ulcer of left BKA stump with recent surgical closure 05/25/18 and skin graft/flap compromise. Progress: Patient appears to be tolerating hyperbaric oxygen therapy well. Today represents the 37th such session of hyperbaric oxygen therapy. Tolerance of hyperbaric oxygen therapy: Hyperbaric oxygen therapy was administered as per the facility's protocol for 120 minutes. The patient tolerated hyperbaric oxygen therapy well, without complaints or complications. Upon emergence from the hyperbaric chamber, patient's vital signs remained stable. Patient was discharged in good condition. 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) Patient is on Coumadin for PE Chronic osteomyelitis of left tibia (Chronic) chronic osteomyelitis left tibia at BKA stump 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) Pain of amputation stump of left lower extremity (Chronic) Dermatitis (Chronic) CAD (coronary artery disease) (Chronic) Osteomyelitis of left lower extremity (Chronic) Pain of left anterior lower extremity (Chronic) Amputation, traumatic, leg (Chronic) HTN (hypertension) (Chronic) Hypertension (Chronic) Peripheral arterial disease (Chronic) SVT (supraventricular tachycardia) (Chronic) Hypercoagulable state (Chronic) Wound, surgical, nonhealing (Chronic) Ischemic ulcer of right foot (Chronic) Allergies/Adverse Reactions: Allergies Penicillins Allergy (Verified 08/10/18 10:05) Swelling adhesive tape Adverse Reaction (Verified 08/10/18 10:05) Rash Home Medications: Ambulatory Orders Medication Instructions Recorded Atorvastatin Calcium [Lipitor] 40 mg PO QHS 04/03/18 Carvedilol 12.5 mg PO DAILY 04/03/18 Diazepam [Valium] 5 mg PO 4X/DAY PRN #30 tab 05/30/18 Docusate Sodium [Colace] 100 mg PO BID #60 cap 05/30/18 Iron Polysaccharide Complex 150 mg PO DAILYCM #30 cap 05/30/18 [Ferrex 150] Mupirocin [Bactroban] 1 applic TOPICAL .QDAILY #2 tube 05/30/18 gabapentin 300 mg capsule 1,800 mg PO BID #360 cap 06/28/18 levofloxacin 500 mg tablet 500 mg PO DAILY 07/13/18 sertraline 25 mg tablet 25 mg PO DAILY PRN 07/13/18 apixaban 5 mg tablet 5 mg PO BID #60 tab 08/10/18 metronidazole 500 mg tablet 500 mg PO TID #30 tab 08/19/18 amlodipine 10 mg tablet 10 mg PO DAILY #90 tab 08/23/18 Maternal Family History: Family History (Last Reviewed 08/10/18 @ 10:08 by Aleja Lutz) Other CVA (cerebral vascular accident) Cancer Heart disease Family History: Cancer, Diabetes, Heart Disease, Renal Disease Paternal Family History: Family History (Last Reviewed 08/10/18 @ 10:08 by Aleja Lutz) Other CVA (cerebral vascular accident) Cancer Heart disease Family History: Cancer Smoking Status: Former smoker Alcohol: None Drugs: None Physical Exam Vital Signs Temp Pulse Resp BP 97.8 F 56 L 16 150/91 H 08/24/18 14:39 08/24/18 14:39 08/24/18 14:39 08/24/18 14:39 General: Alert, Oriented x3, Cooperative, No apparent distress Psych/Mental Status: Normal Affect, Appropriate Assessment/Plan Active Problems (Last Reviewed 08/10/18 @ 10:08 by Aleja Lutz) Partial loss of skin graft (Acute) 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
--- NOTE | 2018-09-10 16:35 | PCM.HBO.PN ---
History of Present Illness Date of Service: 09/10/18 Presenting Chief Complaint: Nonhealing ulcer left BKA stump with recent surgical closure 05/25/18 and mild skin graft/flap compromise. JANIE CHIN is a 52 year old currently undergoing hyperbaric oxygen therapy for nonhealing ulcer of left BKA stump with recent surgical closure 05/25/18 and skin graft/flap compromise. Progress: Patient appears to be tolerating hyperbaric oxygen therapy well. Today represents the 45th such session of hyperbaric oxygen therapy. Tolerance of hyperbaric oxygen therapy: Hyperbaric oxygen therapy was administered as per the facility's protocol. The patient tolerated hyperbaric oxygen therapy well, without complaints or complications. Upon emergence from the hyperbaric chamber, patient's vital signs remained stable. Patient was discharged in good condition. 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) Patient is on Coumadin for PE Chronic osteomyelitis of left tibia (Chronic) chronic osteomyelitis left tibia at BKA stump 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) Pain of amputation stump of left lower extremity (Chronic) Dermatitis (Chronic) CAD (coronary artery disease) (Chronic) Osteomyelitis of left lower extremity (Chronic) Pain of left anterior lower extremity (Chronic) Amputation, traumatic, leg (Chronic) HTN (hypertension) (Chronic) Hypertension (Chronic) Peripheral arterial disease (Chronic) SVT (supraventricular tachycardia) (Chronic) Hypercoagulable state (Chronic) Wound, surgical, nonhealing (Chronic) Ischemic ulcer of right foot (Chronic) Allergies/Adverse Reactions: Allergies Penicillins Allergy (Verified 08/10/18 10:05) Swelling adhesive tape Adverse Reaction (Verified 08/10/18 10:05) Rash Home Medications: Ambulatory Orders Medication Instructions Recorded Atorvastatin Calcium [Lipitor] 40 mg PO QHS 04/03/18 Carvedilol 12.5 mg PO DAILY 04/03/18 Diazepam [Valium] 5 mg PO 4X/DAY PRN #30 tab 05/30/18 Docusate Sodium [Colace] 100 mg PO BID #60 cap 05/30/18 Iron Polysaccharide Complex 150 mg PO DAILYCM #30 cap 05/30/18 [Ferrex 150] Mupirocin [Bactroban] 1 applic TOPICAL .QDAILY #2 tube 05/30/18 gabapentin 300 mg capsule 1,800 mg PO BID #360 cap 06/28/18 levofloxacin 500 mg tablet 500 mg PO DAILY 07/13/18 sertraline 25 mg tablet 25 mg PO DAILY PRN 07/13/18 apixaban 5 mg tablet 5 mg PO BID #60 tab 08/10/18 metronidazole 500 mg tablet 500 mg PO TID #30 tab 08/19/18 amlodipine 10 mg tablet 10 mg PO DAILY #90 tab 08/23/18 Maternal Family History: Family History (Last Reviewed 08/10/18 @ 10:08 by Aleja Lutz) Other CVA (cerebral vascular accident) Cancer Heart disease Family History: Cancer, Diabetes, Heart Disease, Renal Disease Paternal Family History: Family History (Last Reviewed 08/10/18 @ 10:08 by Aleja Lutz) Other CVA (cerebral vascular accident) Cancer Heart disease Family History: Cancer Smoking Status: Former smoker Alcohol: None Drugs: None Physical Exam Vital Signs Temp Pulse Resp BP 97.8 F 56 L 16 150/91 H 08/24/18 14:39 08/24/18 14:39 08/24/18 14:39 08/24/18 14:39 Assessment/Plan Active Problems (Last Reviewed 08/10/18 @ 10:08 by Aleja Lutz) 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
== END 2018-08-26 23:59 ==
LOC: WC 14:00
PROVIDERS: Family Provider Internal Medicine; PCP Internal Medicine; Visit Provider Surgery
DX: T81.30XA Disruption of wound, unspecified, initial encounter (principal); T86.828 Other complications of skin graft (allograft) (autograft); Y83.8 Other surgical procedures as the cause of abnormal reaction of the patient, or of later complication, without mention of misadventure at the time of the procedure; Z79.01 Long term (current) use of 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s; Z79.899 Other long term (current) drug therapy; I73.9 Peripheral vascular disease, unspecified; I25.10 Atherosclerotic heart disease of native coronary artery without angina pectoris; Z87.891 Personal history of nicotine dependence; I10 Essential (primary) hypertension; Z89.512 Acquired absence of left leg below knee; Z86.711 Personal history of pulmonary embolism; Z86.718 Personal history of other venous thrombosis and embolism; M86.662 Other chronic osteomyelitis, left tibia and fibula
CPT/HCPCS: 11042; 11045; 87070; 87075; 87077; 87186; 87205; 99183; G0277

== ENCOUNTER 2018-09-24 08:00 | Outpatient (RCR) | payer OTHER, SELFPAY ==
[2018-08-20 08:09] VITALS: BMI 23.2
[2018-08-27 00:53] VITALS: BP 133/77; PULSE 79; RESP 16; TEMP 36.4
[2018-08-27 01:11] VITALS: BMI 24.5
[2018-08-27 08:21] VITALS: BP 118/63; PULSE 84; RESP 16; TEMP 35.9; BMI 24.5
[2018-08-27 11:41] VITALS: BP 132/75; BP 136/84; PULSE 72; PULSE 76; RESP 16; RESP 18; TEMP 36.1
--- NOTE | 2018-08-27 17:43 | PN.PCM_ITS ---
Type of Wound Date of Service: 08/27/18 Chief Complaint: Nonhealing ulcer left BKA stump with recent surgical closure 05/25/18 and mild skin graft/flap compromise. History of Wound: Surgery 05/25/18 - 1. Surgical preparation left BKA stump with excisional debridement nonhealing infected ulcer. 2. Complex secondary wound closure revision reconstruction with re-advancement muscle flap and bipedicle anterior leg fasciocutaneous advancement flap and STSG from the left flank (60 cm2). Surgery 04/05/18 - 1. Surgical preparation left BKA stump with incision and drainage and excisional debridement nonhealing infected ulcer. 2. Partial ostectomy tibia for osteomyelitis. Wound care - Acetic acid. Operative culture - MRSA. Soft tissue from 04/05/18 surgery - negative. Bone from 04/05/18 surgery - negative. Pathology from 04/05/18 surgery - negative for ostemyelitis. He was discharged on Bactrim DS. He has since finished the Bactrim DS. Initially perioperatively he was on Vancomycin. His Creatinine increased to 1.70 and the Vancomycin was stopped. At discharge his Creatinine had decreased to 1.49. He had Creatinine rechecked on 06/29/18 which was 1.96. Repeat Creatinine on 07/20/18 has decreased to 1.31. He had another wound culture done on 06/18/18 which showed Pseudomonas aeroginosa. He was placed on Levaquin and fininshed them. Last week on 08/06/18, another wound culture was done because of increased odor. It showed Pseudomonas aeroginosa and Anaerobic cocci. He was started on Cipro and Flagyl was added. He has finished the Flagyl and will finish the Cipro approximately 09/17/18. Prealbumin from 05/26/18 was 17.5. Encourage nutritional supplementation with protein to help the healing process. MRI left BKA stump in 10/13 showed osteomyelitis. He changed his anticoagulation medication and stopped the Coumadin and started Eliquis. Today he denies fever. His appetite is good. With his early compromise to the skin graft/flap, he has started HBO treatments to help salvage the compromised graft/flap and is tolerating them thus far. He has noticed some mild visual blurring early on that has stayed constant. He states he hasn't noticed it worsening. I told him to tell me as soon as he has noticed any worsening of his symptoms, at which time the HBO would be stopped and evaluation by an Telemarketing Sales Representative would be done. There has been improvement in the healing of the compromised graft/flap but with the recent culture that showed Pseudomonas and anaerobes, he would benefit from continued HBO treatments (another 20), to continue the improved healing and salvage of the compromised graft/flap which would minimize further tissue destruction from the presence of Pseudomonas. Progress of Wound: Surgery 05/25/18 with mild skin graft/flap compromise, improved. - Physical Exam Vital Signs Temp Pulse Resp BP 97.0 F L 76 18 136/84 H 08/27/18 11:41 08/27/18 11:41 08/27/18 11:41 08/27/18 11:41 Wound Measurements and Assessment ELIAS - Nurse 1 - General Ulcer Measurement Start: 08/27/18 08:20 Freq: Status: Active Protocol: Activity Type Activity Date Activity User E-Sign Co-Sign Detail Recorded Client Recorded Date Recorded By Document 08/27/18 08:21 DV [id number] 08/27/18 08:27 DV 08/27/18 08:21 Wound Center Nurse 1 [Ulcer Assessment] #5 L BKA stump -Combined with other wound No -Current Size (cm) - Length 3.1 -Current Size (cm) - Width 8.0 -Current Size (cm) - Depth 0.5 -Total Square Cm 24.80 -Photo Taken No -Epithelialization Small 1-33% -Tunneling No -Undermining/Tunneling No -Circular Undermining No -Exudate Amt Small -Exudate Type Serosanguineous -Wound Margin Thickened & Rolled Under -Granulation Amt Large (67-100%) -Granulation Quality Red -Slough/Fibrin Yes -Necrosis Amt Medium (34-66%) -Necrotic Tissue Type Adherent Slough -Texture (Ami-wound Skin Appearance) No Abnormality Assessed -Moisture (Ami-wound Skin Appearance No Abnormality ) Assessed -Color (Ami-wound Skin Appearance) No Abnormality Assessed -Temperature (Ami-wound Skin No Abnormality Appearance) (Pt Warm) -Tenderness on Palpation (Ami-wound No Skin Appearance) -Ulcer Cleansing soap -Foul Odor after Cleansing No -Anesthetic Used 4% Lidocaine Solution WC - Nurse 2 - General Ulcer CM Notes Start: 08/27/18 08:20 Freq: Status: Active Protocol: Activity Type Activity Date Activity User E-Sign Co-Sign Detail Recorded Client Recorded Date Recorded By Document 08/27/18 08:34 [id number] 08/27/18 08:34 08/27/18 08:34 Wound Center Nurse 2 [Procedure/Treatment] -Time 08:34 -Correct Patient Yes -Correct Side, Site, Position Yes -Correct Procedure Yes -Procedure Performed Yes -Type of Procedure Debridement -Clinical Debridement Subcutaneous -Post Debridement Size (cm) - Length 3.2 -Post Debridement Size (cm) - Width 8 -Post Debridement Size (cm) - Depth 0.5 -Total Square Cm 25.6 -Wound/Ulcer Outcome Not Healed -Ulcer Cleansing Rinsed/ Irrigated with Saline -Foul Odor after Cleansing No -Bioengineered Tissue No -Bleeding Controlled with Pressure -Offloading No -Treatment Response Procedure Tolerated Well [See Physician Procedure note for Specifics] Pain Scale: 0-10 Numeric [Pain] -Is Patient Pain Free? Yes Debridement Note Post-Debridement Measurements/Treatment WC - Nurse 2 - General Ulcer CM Notes Start: 08/27/18 08:20 Freq: Status: Active Protocol: Activity Type Activity Date Activity User E-Sign Co-Sign Detail Recorded Client Recorded Date Recorded By Document 08/27/18 08:34 [id number] 08/27/18 08:34 08/27/18 08:34 Wound Center Nurse 2 #5 L BKA stump -Time 08:34 -Correct Patient Yes -Correct Side, Site, Position Yes -Correct Procedure Yes -Procedure Performed Yes -Type of Procedure Debridement -Clinical Debridement Subcutaneous -Post Debridement Size (cm) - Length 3.2 -Post Debridement Size (cm) - Width 8 -Post Debridement Size (cm) - Depth 0.5 -Total Square Cm 25.6 -Wound/Ulcer Outcome Not Healed -Ulcer Cleansing Rinsed/ Irrigated with Saline -Foul Odor after Cleansing No -Bioengineered Tissue No -Bleeding Controlled with Pressure -Offloading No -Treatment Response Procedure Tolerated Well Pain Scale: 0-10 Numeric Is Patient Pain Free? Yes Wound debrided: #5 Left BKA stump. Laterality: Left Wound Grade/Stage: 4. Type of Debridement: Excisional debridement Anesthesia Used: 4% Lidocaine Solution Depth: Down to and including healthy tissue, in the subcutaneous layer Percentage of wound debrided: 100 Instrument Used: 5mm curette Tissue Removed: subcutaneous tissue. Severity: Fat Layer Exposed Amount of bleeding with debridement: Mild Bleeding Controlled with: Pressure Patient tolerated procedure well Assessment/Plan Assessment: 1. Nonhealing ulcer left BKA stump with recent surgical closure 05/25/18. 2. Pain left BKA stump. 3. MRSA. 4. 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 5. 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 7. Early skin graft/flap compromise left BKA stump, (20% compromise). 8. s/p surgical preparation left BKA stump with excisional debridement nonhealing infected ulcer and complex secondary wound closure revision reconstruction with re-advancement muscle flap and bipedicle anterior leg fasciocutaneous advancement flap and STSG from the left flank (60 cm2). 9. JUAN (acute kidney injury), probable medication related, resolving. Plan: With the recent culture showing Pseudomonas, the wound care was changed to Acetic Acid. The wound continues to show good improvement with the Acetic Acid dressing and the Cipro antibiotics and the HBO treatments. There was some concern that he would need IV antibiotics for the Pseudomonas since it can be destructive to tissue and he already finished a course of Levaquin. He was placed on Cipro this time since the Levaquin had intermediate sensitivity. He was also started on Flagyl for Anaerobic cocci. Since the wound continues to show improvement with the Acetic Acid dressing, will hold off on IV antibiotics at this time. However will assess at each visit. If his healing worsens, will change to IV antibiotics at that point. That would require admission to the hospital and placement of a PICC line. After more healing is seen, will consider placement of placental connective tissue graft (Epifix) or Thera-skin. He is currently on Cipro for Pseudomonas and will wait on placement of these grafts until after the Cipro is completed (approximately 3 more weeks). The skin graft shows good adherence and about 85% take and good vascular ingrowth. There is some mild compromise at the inferior edge of the skin graft (about 15% compromise). The stump incision showed some superficial wound separation which is healing satisfactory. The stump is soft and swelling has resolved. The central aspect of the stump anteriorly shows some mild compromise (about 10%). After debridement, the underlying subcutaneous tissue continues to appear viable with no exposure of bone. With the mild skin graft/flap compromise (about 25% total), he started HBO treatments which would help salvage the compromised graft/flap. He is tolerating the HBO treatments thus far. He has noticed some mild visual blurring early on that has stayed constant. He states he hasn't noticed it worsening. I told him to tell me as soon as he has noticed any worsening of his symptoms, at which time the HBO would be stopped and evaluation by an Telemarketing Sales Representative would be done. There has been improvement in the healing of the compromised graft/flap and with the recent culture that showed Pseudomonas and anaerobes, he would benefit from continued HBO treatments (20 more treatments) as Pseudomonas can be destructive to tissue. Continued wound healing progress can be made with continuation of HBO treatments. Not only are we trying to salvage the compromised graft/flap, we are also trying to salvage the stump itself. Because if HBO treatments are stopped too soon and the tissue destruction continues with the Pseudomonas, the wound is at risk of eroding to the bone which increases the risk of revising the BKA stump to an AKA stump. The AKA necessitates a more complex prosthesis which will prolong rehab in the future. Prealbumin from the hospital was 17.5. Encourage nutritional suppl ementation with protein to help the healing process. After his last surgery in April, he had been on Vancomycin for a day which was stopped when his Creatinine increased to 1.70. It then decreased down to 1.49 before increasing back up to 1.96 and then most recently decreased back to 1.31 on 07/20/18. Encourage hydration. He has returned to work and is doing ok. Discussed with the patient that the presence of MRSA and Pseudomonas can be destructive to the surrounding tissue leading to suboptimal healing. Followup one week. After the Cipro has been completed for the Pseudomonas (approximately 3 more weeks), we can consider graft placement here at the Wound Center (i.e., Epifix or Thera- skin). Once again, the patient has been instructed to tell us if his visual blurring worsens during his remaining HBO treatments.
--- NOTE | 2018-08-27 18:07 | HBO.PN.PCM_ITS ---
History of Present Illness Date of Service: 08/27/18 Presenting Chief Complaint: Nonhealing ulcer left BKA stump with recent surgical closure 05/25/18 and mild skin graft/flap compromise. JANIE CHIN is a 52 year old currently undergoing hyperbaric oxygen therapy for nonhealing ulcer of left BKA stump with recent surgical closure 05/25/18 and skin graft/flap compromise. Progress: Patient appears to be tolerating hyperbaric oxygen therapy well. Today represents the 38th such session of hyperbaric oxygen therapy. Tolerance of hyperbaric oxygen therapy: Hyperbaric oxygen therapy was administered as per the facility's protocol. The patient tolerated hyperbaric oxygen therapy well, without complaints or complications. Upon emergence from the hyperbaric chamber, patient's vital signs remained stable. Patient was discharged in good condition. 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) Patient is on Coumadin for PE Chronic osteomyelitis of left tibia (Chronic) chronic osteomyelitis left tibia at BKA stump 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) Pain of amputation stump of left lower extremity (Chronic) Dermatitis (Chronic) CAD (coronary artery disease) (Chronic) Osteomyelitis of left lower extremity (Chronic) Pain of left anterior lower extremity (Chronic) Amputation, traumatic, leg (Chronic) HTN (hypertension) (Chronic) Hypertension (Chronic) Peripheral arterial disease (Chronic) SVT (supraventricular tachycardia) (Chronic) Hypercoagulable state (Chronic) Wound, surgical, nonhealing (Chronic) Ischemic ulcer of right foot (Chronic) Allergies/Adverse Reactions: Allergies Penicillins Allergy (Verified 08/10/18 10:05) Swelling adhesive tape Adverse Reaction (Verified 08/10/18 10:05) Rash Home Medications: Ambulatory Orders Medication Instructions Recorded Atorvastatin Calcium [Lipitor] 40 mg PO QHS 04/03/18 Carvedilol 12.5 mg PO DAILY 04/03/18 Diazepam [Valium] 5 mg PO 4X/DAY PRN #30 tab 05/30/18 Docusate Sodium [Colace] 100 mg PO BID #60 cap 05/30/18 Iron Polysaccharide Complex 150 mg PO DAILYCM #30 cap 05/30/18 [Ferrex 150] Mupirocin [Bactroban] 1 applic TOPICAL .QDAILY #2 tube 05/30/18 gabapentin 300 mg capsule 1,800 mg PO BID #360 cap 06/28/18 levofloxacin 500 mg tablet 500 mg PO DAILY 07/13/18 sertraline 25 mg tablet 25 mg PO DAILY PRN 07/13/18 apixaban 5 mg tablet 5 mg PO BID #60 tab 08/10/18 metronidazole 500 mg tablet 500 mg PO TID #30 tab 08/19/18 amlodipine 10 mg tablet 10 mg PO DAILY #90 tab 08/23/18 Maternal Family History: Family History (Last Reviewed 08/10/18 @ 10:08 by Aleja Lutz) Other CVA (cerebral vascular accident) Cancer Heart disease Family History: Cancer, Diabetes, Heart Disease, Renal Disease Paternal Family History: Family History (Last Reviewed 08/10/18 @ 10:08 by Aleja Lutz) Other CVA (cerebral vascular accident) Cancer Heart disease Family History: Cancer Smoking Status: Former smoker Physical Exam Vital Signs Temp Pulse Resp BP 97.0 F L 76 18 136/84 H 08/27/18 11:41 08/27/18 11:41 08/27/18 11:41 08/27/18 11:41
--- NOTE | 2018-08-28 13:48 | PCM.HBO.PN ---
History of Present Illness Date of Service: 08/28/18 Presenting Chief Complaint: Nonhealing ulcer left BKA stump with recent surgical closure 05/25/18 and mild skin graft/flap compromise. JANIE CHIN is a 52 year old currently undergoing hyperbaric oxygen therapy for nonhealing ulcer of left BKA stump with recent surgical closure 05/25/18 and skin graft/flap compromise. Progress: Patient appears to be tolerating hyperbaric oxygen therapy well. Today represents the 39th such session of hyperbaric oxygen therapy. Tolerance of hyperbaric oxygen therapy: Hyperbaric oxygen therapy was administered as per the facility's protocol. The patient tolerated hyperbaric oxygen therapy well, without complaints or complications. Upon emergence from the hyperbaric chamber, patient's vital signs remained stable. Patient was discharged in good condition. 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) Patient is on Coumadin for PE Chronic osteomyelitis of left tibia (Chronic) chronic osteomyelitis left tibia at BKA stump 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) Pain of amputation stump of left lower extremity (Chronic) Dermatitis (Chronic) CAD (coronary artery disease) (Chronic) Osteomyelitis of left lower extremity (Chronic) Pain of left anterior lower extremity (Chronic) Amputation, traumatic, leg (Chronic) HTN (hypertension) (Chronic) Hypertension (Chronic) Peripheral arterial disease (Chronic) SVT (supraventricular tachycardia) (Chronic) Hypercoagulable state (Chronic) Wound, surgical, nonhealing (Chronic) Ischemic ulcer of right foot (Chronic) Allergies/Adverse Reactions: Allergies Penicillins Allergy (Verified 08/10/18 10:05) Swelling adhesive tape Adverse Reaction (Verified 08/10/18 10:05) Rash Home Medications: Ambulatory Orders Medication Instructions Recorded Atorvastatin Calcium [Lipitor] 40 mg PO QHS 04/03/18 Carvedilol 12.5 mg PO DAILY 04/03/18 Diazepam [Valium] 5 mg PO 4X/DAY PRN #30 tab 05/30/18 Docusate Sodium [Colace] 100 mg PO BID #60 cap 05/30/18 Iron Polysaccharide Complex 150 mg PO DAILYCM #30 cap 05/30/18 [Ferrex 150] Mupirocin [Bactroban] 1 applic TOPICAL .QDAILY #2 tube 05/30/18 gabapentin 300 mg capsule 1,800 mg PO BID #360 cap 06/28/18 levofloxacin 500 mg tablet 500 mg PO DAILY 07/13/18 sertraline 25 mg tablet 25 mg PO DAILY PRN 07/13/18 apixaban 5 mg tablet 5 mg PO BID #60 tab 08/10/18 metronidazole 500 mg tablet 500 mg PO TID #30 tab 08/19/18 amlodipine 10 mg tablet 10 mg PO DAILY #90 tab 08/23/18 Maternal Family History: Family History (Last Reviewed 08/10/18 @ 10:08 by Aleja Lutz) Other CVA (cerebral vascular accident) Cancer Heart disease Family History: Cancer, Diabetes, Heart Disease, Renal Disease Paternal Family History: Family History (Last Reviewed 08/10/18 @ 10:08 by Aleja Lutz) Other CVA (cerebral vascular accident) Cancer Heart disease Family History: Cancer Smoking Status: Former smoker Physical Exam Vital Signs Temp Pulse Resp BP 97.0 F L 76 18 136/84 H 08/27/18 11:41 08/27/18 11:41 08/27/18 11:41 08/27/18 11:41 General: Alert, Oriented x3, Cooperative, No apparent distress HEENT: Atraumatic, TM's Clear Lungs: Clear to auscultation, Normal air movement Cardiovascular: Regular rate, Regular Rhythm Psych/Mental Status: Normal Affect, Appropriate, Alert and oriented to time, place, person, mood and affect Assessment/Plan This patient appears to be tolerating hyperbaric oxygen therapy, and it will continue as per the patient's medical plan.
[2018-08-28 14:09] VITALS: BP 130/88; BP 138/78; PULSE 53; PULSE 76; RESP 16; RESP 18; TEMP 36.7; TEMP 36.8
[2018-08-30 15:50] VITALS: BP 101/72; BP 101/74; PULSE 70; PULSE 98; RESP 16; RESP 18; TEMP 36.6
--- NOTE | 2018-08-30 16:47 | HBO.PN.PCM_ITS ---
History of Present Illness Date of Service: 08/30/18 Presenting Chief Complaint: Nonhealing ulcer left BKA stump with recent surgical closure 05/25/18 and mild skin graft/flap compromise. JANIE CHIN is a 52 year old currently undergoing hyperbaric oxygen therapy for nonhealing ulcer of left BKA stump with recent surgical closure 05/25/18 and skin graft/flap compromise. Progress: Patient appears to be tolerating hyperbaric oxygen therapy well. Today represents the 40th such session of hyperbaric oxygen therapy. Tolerance of hyperbaric oxygen therapy: Hyperbaric oxygen therapy was administered as per the facility's protocol. The patient tolerated hyperbaric oxygen therapy well, without complaints or complications. Upon emergence from the hyperbaric chamber, patient's vital signs remained stable. Patient was discharged in good condition. 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) Patient is on Coumadin for PE Chronic osteomyelitis of left tibia (Chronic) chronic osteomyelitis left tibia at BKA stump 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) Pain of amputation stump of left lower extremity (Chronic) Dermatitis (Chronic) CAD (coronary artery disease) (Chronic) Osteomyelitis of left lower extremity (Chronic) Pain of left anterior lower extremity (Chronic) Amputation, traumatic, leg (Chronic) HTN (hypertension) (Chronic) Hypertension (Chronic) Peripheral arterial disease (Chronic) SVT (supraventricular tachycardia) (Chronic) Hypercoagulable state (Chronic) Wound, surgical, nonhealing (Chronic) Ischemic ulcer of right foot (Chronic) Allergies/Adverse Reactions: Allergies Penicillins Allergy (Verified 08/10/18 10:05) Swelling adhesive tape Adverse Reaction (Verified 08/10/18 10:05) Rash Home Medications: Ambulatory Orders Medication Instructions Recorded Atorvastatin Calcium [Lipitor] 40 mg PO QHS 04/03/18 Carvedilol 12.5 mg PO DAILY 04/03/18 Diazepam [Valium] 5 mg PO 4X/DAY PRN #30 tab 05/30/18 Docusate Sodium [Colace] 100 mg PO BID #60 cap 05/30/18 Iron Polysaccharide Complex 150 mg PO DAILYCM #30 cap 05/30/18 [Ferrex 150] Mupirocin [Bactroban] 1 applic TOPICAL .QDAILY #2 tube 05/30/18 gabapentin 300 mg capsule 1,800 mg PO BID #360 cap 06/28/18 levofloxacin 500 mg tablet 500 mg PO DAILY 07/13/18 sertraline 25 mg tablet 25 mg PO DAILY PRN 07/13/18 apixaban 5 mg tablet 5 mg PO BID #60 tab 08/10/18 metronidazole 500 mg tablet 500 mg PO TID #30 tab 08/19/18 amlodipine 10 mg tablet 10 mg PO DAILY #90 tab 08/23/18 Maternal Family History: Family History (Last Reviewed 08/10/18 @ 10:08 by Aleja Lutz) Other CVA (cerebral vascular accident) Cancer Heart disease Family History: Cancer, Diabetes, Heart Disease, Renal Disease Paternal Family History: Family History (Last Reviewed 08/10/18 @ 10:08 by lAeja Lutz) Other CVA (cerebral vascular accident) Cancer Heart disease Family History: Cancer Smoking Status: Former smoker Physical Exam Vital Signs Temp Pulse Resp BP 97.8 F 98 18 101/74 08/30/18 15:50 08/30/18 15:50 08/30/18 15:50 08/30/18 15:50 General: Alert, Oriented x3, Cooperative, No apparent distress HEENT: Atraumatic, PERRLA, TM's Clear Lungs: Clear to auscultation, Normal air movement, No rhonchi, No wheeze, No rales Cardiovascular: Regular rate, Regular Rhythm, Normal S1, Normal S2, No murmurs Psych/Mental Status: Normal Affect, Appropriate, Alert and oriented to time, place, person, mood and affect Assessment/Plan This patient appears to be tolerating hyperbaric oxygen therapy, and it will continue as per the patient's medical plan.
[2018-08-31 16:57] VITALS: BP 113/67; BP 114/69; PULSE 81; PULSE 89; RESP 16; RESP 18; TEMP 36.5; TEMP 36.7
[2018-09-03 08:02] VITALS: BP 125/75; PULSE 84; RESP 18; TEMP 36.9; BMI 24.5
--- NOTE | 2018-09-03 09:14 | PCM.WC.PN ---
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 Current Visit: Yes Code(s): T86.828 - Other complications of skin graft (allograft) (autograft) (2) Methicillin resistant Staphylococcus aureus infection Status: Chronic Current Visit: Yes Code(s): A49.02 - Methicillin resistant Staphylococcus aureus infection, unspecified site (3) Chronic osteomyelitis of left tibia Status: Chronic Current Visit: Yes Code(s): M86.662 - Other chronic osteomyelitis, left tibia and fibula Comment: chronic osteomyelitis left tibia at BKA stump (4) halfway current use of 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 Status: Chronic Current Visit: Yes Code(s): Z79.01 - halfway (current) use of 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s Comment: Patient is on Coumadin for PE (5) History of DVT (deep vein thrombosis) Status: Chronic Current Visit: Yes Code(s): Z86.718 - Personal history of other venous thrombosis and embolism Type of Wound Date of Service: 09/03/18 Chief Complaint: Nonhealing ulcer left BKA stump with recent surgical closure 05/25/18 and mild skin graft/flap compromise. History of Wound: Surgery 05/25/18 - 1. Surgical preparation left BKA stump with excisional debridement nonhealing infected ulcer. 2. Complex secondary wound closure revision reconstruction with re-advancement muscle flap and bipedicle anterior leg fasciocutaneous advancement flap and STSG from the left flank (60 cm2). Surgery 04/05/18 - 1. Surgical preparation left BKA stump with incision and drainage and excisional debridement nonhealing infected ulcer. 2. Partial ostectomy tibia for osteomyelitis. Wound care - Acetic acid. Operative culture - MRSA. Soft tissue from 04/05/18 surgery - negative. Bone from 04/05/18 surgery - negative. Pathology from 04/05/18 surgery - negative for ostemyelitis. He was discharged on Bactrim DS. He has since finished the Bactrim DS. Initially perioperatively he was on Vancomycin. His Creatinine increased to 1.70 and the Vancomycin was stopped. At discharge his Creatinine had decreased to 1.49. He had Creatinine rechecked on 06/29/18 which was 1.96. Repeat Creatinine on 07/20/18 has decreased to 1.31. He had another wound culture done on 06/18/18 which showed Pseudomonas aeroginosa. He was placed on Levaquin and fininshed them. On 3/11/19, another wound culture was done because of increased odor. It showed Pseudomonas aeroginosa and Anaerobic cocci. He was started on Cipro and Flagyl was added. He has finished the Flagyl and will finish the Cipro approximately 09/17/18. Wound care is acetic acid dressing changes 1-2 times a day. Prealbumin from 05/26/18 was 17.5. Encourage nutritional supplementation with protein to help the healing process. MRI left BKA stump in 10/13 showed osteomyelitis. He changed his anticoagulation medication and stopped the Coumadin and started Eliquis. Today he denies fever. His appetite is good. With his early compromise to the skin graft/flap, he has started HBO treatments to help salvage the compromised graft/flap and is tolerating them thus far. He has noticed some mild visual blurring early on that has stayed constant. He states he hasn't noticed it worsening. I told him to tell me as soon as he has noticed any worsening of his symptoms, at which time the HBO would be stopped and evaluation by an Maintenance Worker Municipal would be done. There has been improvement in the healing of the compromised graft/flap but with the recent culture that showed Pseudomonas and anaerobes, he would benefit from continued HBO treatments (another 20), to continue the improved healing and salvage of the compromised graft/flap which would minimize further tissue destruction from the presence of Pseudomonas. Progress of Wound: Surgery 05/25/18 with skin graft/flap compromise, improved. - Physical Exam Vital Signs Temp Pulse Resp BP 98.4 F 84 18 125/75 H 09/03/18 08:02 09/03/18 08:02 09/03/18 08:02 09/03/18 08:02 General: Alert, Oriented x3, Cooperative HEENT: Atraumatic Oral: Moist Mucosa Lungs: Normal air movement Cardiovascular: Regular rate Extremities: No edema Skin: Ulcer/ Wound - Left BKA Wound Measurements and Assessment WC - Nurse 1 - General Ulcer Measurement Start: 08/27/18 08:20 Freq: Status: Active Protocol: Activity Type Activity Date Activity User E-Sign Co-Sign Detail Recorded Client Recorded Date Recorded By Document 09/03/18 08:02 DL [id number] 09/03/18 08:06 DL 09/03/18 08:02 Wound Center Nurse 1 [Ulcer Assessment] #5 L BKA stump -Current Size (cm) - Length 3.5 -Current Size (cm) - Width 7.5 -Current Size (cm) - Depth 0.5 -Total Square Cm 26.25 -Photo Taken Yes -Exudate Amt Small -Exudate Type Serosanguineous -Wound Margin Thickened & Rolled Under -Granulation Amt Medium (34-66%) -Granulation Quality Red -Necrosis Amt Medium (34-66%) -Necrotic Tissue Type Adherent Slough -Structure Exposed N/A -Texture (Ami-wound Skin Appearance) Scarring -Moisture (Ami-wound Skin Appearance No Abnormality ) -Color (Ami-wound Skin Appearance) No Abnormality -Ulcer Cleansing Wound Cleanser -Foul Odor after Cleansing No -Anesthetic Used 4% Lidocaine Solution - Nurse 2 - General Ulcer CM Notes Start: 08/27/18 08:20 Freq: Status: Active Protocol: Activity Type Activity Date Activity User E-Sign Co-Sign Detail Recorded Client Recorded Date Recorded By Document 09/03/18 08:33 [email or web address] [id number] 09/03/18 08:38 09/03/18 08:33 Wound Center Nurse 2 [Procedure/Treatment] -Time 08:34 -Correct Patient Yes -Correct Side, Site, Position Yes -Correct Procedure Yes -Procedure Performed Yes -Type of Procedure Debridement -Clinical Debridement Subcutaneous -Post Debridement Size (cm) - Length 3.5 -Post Debridement Size (cm) - Width 7.6 -Post Debridement Size (cm) - Depth 0.2 -Total Square Cm 26.60 -Wound/Ulcer Outcome Not Healed -Ulcer Cleansing Rinsed/ Irrigated with Saline -Foul Odor after Cleansing No -Bioengineered Tissue No -Bleeding Controlled with Pressure -Offloading No -Treatment Response Procedure Tolerated Well [See Physician Procedure note for Specifics] Pain Scale: 0-10 Numeric [Pain] -Is Patient Pain Free? Yes Musculoskeletal: No Tenderness to Palpation of Joints or Extremities Neurological: Neuro grossly intact Psych/Mental Status: Normal Affect, Appropriate Debridement Note Post-Debridement Measurements/Treatment - Nurse 2 - General Ulcer CM Notes Start: 08/27/18 08:20 Freq: Status: Active Protocol: Activity Type Activity Date Activity User E-Sign Co-Sign Detail Recorded Client Recorded Date Recorded By Document 08/27/18 08:34 [id number] 08/27/18 08:34 Document 09/03/18 08:33 [email or web address] 09/03/18 08:38 JF 08/27/18 09/03/18 08:34 08:33 Wound Center Nurse 2 #5 L BKA stump -Time 08:34 08:34 -Correct Patient Yes Yes -Correct Side, Site, Position Yes Yes -Correct Procedure Yes Yes -Procedure Performed Yes Yes -Type of Procedure Debridement Debridement -Clinical Debridement Subcutaneous Subcutaneous -Post Debridement Size (cm) - Length 3.2 3.5 -Post Debridement Size (cm) - Width 8 7.6 -Post Debridement Size (cm) - Depth 0.5 0.2 -Total Square Cm 25.6 26.60 -Wound/Ulcer Outcome Not Healed Not Healed -Ulcer Cleansing Rinsed/ Rinsed/ Irrigated with Irrigated with Saline Saline -Foul Odor after Cleansing No No -Bioengineered Tissue No No -Bleeding Controlled with Pressure Pressure -Offloading No No -Treatment Response Procedure Procedure Tolerated Well Tolerated Well Pain Scale: 0-10 Numeric Is Patient Pain Free? 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 Nonhealing ulcer left BKA stump with recent surgical closure 05/25/18. 2. Pain left BKA stump. 3. MRSA. 4. 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 5. 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 6. halfway use of anticoagulation. 7. Early skin graft/flap compromise left BKA stump, (20% compromise). 8. s/p surgical preparation left BKA stump with excisional debridement nonhealing infected ulcer and complex secondary wound closure revision reconstruction with re-advancement muscle flap and bipedicle anterior leg fasciocutaneous advancement flap and STSG from the left flank (60 cm2). 9. JUAN (acute kidney injury), probable medication related, resolving. Plan: With the recent culture showing Pseudomonas, the wound care was changed to Acetic Acid. The wound continues to show good improvement with the Acetic Acid dressing and the Cipro antibiotics and the HBO treatments. There was some concern that he would need IV antibiotics for the Pseudomonas since it can be destructive to tissue and he already finished a course of Levaquin. He was placed on Cipro this time since the Levaquin had intermediate sensitivity. He was also started on Flagyl for Anaerobic cocci. Since the wound continues to show improvement with the Acetic Acid dressing, will hold off on IV antibiotics at this time. However will assess at each visit. If his healing worsens, will change to IV antibiotics at that point. That would require admission to the hospital and placement of a PICC line. After more healing is seen, will consider placement of placental connective tissue graft (Epifix) or Thera-skin. He is currently on Cipro for Pseudomonas and will wait on placement of these grafts until after the Cipro is completed (approximately 3 more weeks). The skin graft shows good adherence and about 85% take and good vascular ingrowth. There is some mild compromise at the inferior edge of the skin graft (about 15% compromise). The stump incision showed some superficial wound separation which is healing satisfactory. The stump is soft and swelling has resolved. The central aspect of the stump anteriorly shows some mild compromise (about 10%). After debridement, the underlying subcutaneous tissue continues to appear viable with no exposure of bone. With the mild skin graft/flap compromise (about 25% total), he started HBO treatments which would help salvage the compromised graft/flap. He is tolerating the HBO treatments thus far. He has noticed some mild visual blurring early on that has stayed constant. He states he hasn't noticed it worsening. I told him to tell me as soon as he has noticed any worsening of his symptoms, at which time the HBO would be stopped and evaluation by an Maintenance Worker Municipal would be done. There has been improvement in the healing of the compromised graft/flap and with the recent culture that showed Pseudomonas and anaerobes, he would benefit from continued HBO treatments (20 more treatments) as Pseudomonas can be destructive to tissue. Continued wound healing progress can be made with continuation of HBO treatments. Not only are we trying to salvage the compromised graft/flap, we are also trying to salvage the stump itself. Because if HBO treatments are stopped too soon and the tissue destruction continues with the Pseudomonas, the wound is at risk of eroding to the bone which increases the risk of revising the BKA stump to an AKA stump. The AKA necessitates a more complex prosthesis which will prolong rehab in the future. Prealbumin from the hospital was 17.5. Encourage nutritional supplementation with protein to help the healing process. After his last surgery in April, he had been on Vancomycin for a day which was stopped when his Creatinine increased to 1.70. It then decreased down to 1.49 before increasing back up to 1.96 and then most recently decreased back to 1.31 on 07/20/18. Encourage hydration. He has returned to work and is doing ok. Discussed with the patient that the presence of MRSA and Pseudomonas can be destructive to the surrounding tissue leading to suboptimal healing. Followup one week. After the Cipro has been completed for the Pseudomonas (approximately 3 more weeks), we can consider graft placement here at the Wound Center (i.e., Epifix or Thera-skin). Once again, the patient has been instructed to tell us if his visual blurring worsens during his remaining HBO treatments. He is not doing HBOT today, he is having diarrhea. His family has been ill with GI illness and he now has it. Instructed him to increase his fluids. He was going to take immodium to help slow down the diarrhea, recommended him not take that. Did give him a speciman container and if the diarrhea lasts for more than a couple days, then he needs to get a speciman to make sure he doesn't have c-diff. Code Visit 111xxx-113xx: 16883 Aleena subq tissue 20 sq cm/< Add On Codes: 68763 Aleena subq tissue add-on - x1
--- NOTE | 2018-09-04 13:17 | HBO.PN.PCM_ITS ---
History of Present Illness Date of Service: 09/04/18 Presenting Chief Complaint: Nonhealing ulcer left BKA stump with recent surgical closure 05/25/18 and mild skin graft/flap compromise. JANIE CHIN is a 52 year old currently undergoing hyperbaric oxygen therapy for nonhealing ulcer of left BKA stump with recent surgical closure 05/25/18 and skin graft/flap compromise. Progress: Patient appears to be tolerating hyperbaric oxygen therapy well. Today represents the 42nd such session of hyperbaric oxygen therapy. Tolerance of hyperbaric oxygen therapy: Hyperbaric oxygen therapy was administered as per the facility's protocol. The patient tolerated hyperbaric oxygen therapy well, without complaints or complications. Upon emergence from the hyperbaric chamber, patient's vital signs remained stable. Patient was discharged in good condition. 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) Patient is on Coumadin for PE Chronic osteomyelitis of left tibia (Chronic) chronic osteomyelitis left tibia at BKA stump 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) Pain of amputation stump of left lower extremity (Chronic) Dermatitis (Chronic) CAD (coronary artery disease) (Chronic) Osteomyelitis of left lower extremity (Chronic) Pain of left anterior lower extremity (Chronic) Amputation, traumatic, leg (Chronic) HTN (hypertension) (Chronic) Hypertension (Chronic) Peripheral arterial disease (Chronic) SVT (supraventricular tachycardia) (Chronic) Hypercoagulable state (Chronic) Wound, surgical, nonhealing (Chronic) Ischemic ulcer of right foot (Chronic) Allergies/Adverse Reactions: Allergies Penicillins Allergy (Verified 08/10/18 10:05) Swelling adhesive tape Adverse Reaction (Verified 08/10/18 10:05) Rash Home Medications: Ambulatory Orders Medication Instructions Recorded Atorvastatin Calcium [Lipitor] 40 mg PO QHS 04/03/18 Carvedilol 12.5 mg PO DAILY 04/03/18 Diazepam [Valium] 5 mg PO 4X/DAY PRN #30 tab 05/30/18 Docusate Sodium [Colace] 100 mg PO BID #60 cap 05/30/18 Iron Polysaccharide Complex 150 mg PO DAILYCM #30 cap 05/30/18 [Ferrex 150] Mupirocin [Bactroban] 1 applic TOPICAL .QDAILY #2 tube 05/30/18 gabapentin 300 mg capsule 1,800 mg PO BID #360 cap 06/28/18 levofloxacin 500 mg tablet 500 mg PO DAILY 07/13/18 sertraline 25 mg tablet 25 mg PO DAILY PRN 07/13/18 apixaban 5 mg tablet 5 mg PO BID #60 tab 08/10/18 metronidazole 500 mg tablet 500 mg PO TID #30 tab 08/19/18 amlodipine 10 mg tablet 10 mg PO DAILY #90 tab 08/23/18 Maternal Family History: Family History (Last Reviewed 08/10/18 @ 10:08 by Aleja Lutz) Other CVA (cerebral vascular accident) Cancer Heart disease Family History: Cancer, Diabetes, Heart Disease, Renal Disease Paternal Family History: Family History (Last Reviewed 08/10/18 @ 10:08 by Aleja Lutz) Other CVA (cerebral vascular accident) Cancer Heart disease Family History: Cancer Smoking Status: Former smoker Physical Exam Vital Signs Temp Pulse Resp BP 98.4 F 84 18 125/75 H 09/03/18 08:02 09/03/18 08:02 09/03/18 08:02 09/03/18 08:02 General: Alert, Oriented x3, Cooperative, No apparent distress HEENT: Atraumatic, - - left TM clear, Right TM clear with fluid, no complaints of pain Lungs: Clear to auscultation, Normal air movement Cardiovascular: Regular rate, Regular Rhythm Psych/Mental Status: Normal Affect, Appropriate, Alert and oriented to time, place, person, mood and affect Assessment/Plan Active Problems (Last Reviewed 08/10/18 @ 10:08 by Aleja Lutz) 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
[2018-09-04 13:34] VITALS: BP 117/69; BP 120/83; PULSE 72; PULSE 93; RESP 16; RESP 18; TEMP 36.3; TEMP 36.6
[2018-09-06 13:23] VITALS: BP 118/75; BP 131/79; PULSE 68; PULSE 94; RESP 18; TEMP 36.1; TEMP 36.3
--- NOTE | 2018-09-06 13:55 | HBO.PN.PCM_ITS ---
History of Present Illness Date of Service: 09/06/18 Presenting Chief Complaint: Nonhealing ulcer left BKA stump with recent surgical closure 05/25/18 and mild skin graft/flap compromise. JANIE CHIN is a 52 year old currently undergoing hyperbaric oxygen therapy for nonhealing ulcer of left BKA stump with recent surgical closure 05/25/18 and skin graft/flap compromise. Progress: Patient appears to be tolerating hyperbaric oxygen therapy well. Today represents the 43rd such session of hyperbaric oxygen therapy. Tolerance of hyperbaric oxygen therapy: Hyperbaric oxygen therapy was administered as per the facility's protocol. The patient tolerated hyperbaric oxygen therapy well, without complaints or complications. Upon emergence from the hyperbaric chamber, patient's vital signs remained stable. Patient was discharged in good condition. 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) Patient is on Coumadin for PE Chronic osteomyelitis of left tibia (Chronic) chronic osteomyelitis left tibia at BKA stump 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) Pain of amputation stump of left lower extremity (Chronic) Dermatitis (Chronic) CAD (coronary artery disease) (Chronic) Osteomyelitis of left lower extremity (Chronic) Pain of left anterior lower extremity (Chronic) Amputation, traumatic, leg (Chronic) HTN (hypertension) (Chronic) Hypertension (Chronic) Peripheral arterial disease (Chronic) SVT (supraventricular tachycardia) (Chronic) Hypercoagulable state (Chronic) Wound, surgical, nonhealing (Chronic) Ischemic ulcer of right foot (Chronic) Allergies/Adverse Reactions: Allergies Penicillins Allergy (Verified 08/10/18 10:05) Swelling adhesive tape Adverse Reaction (Verified 08/10/18 10:05) Rash Home Medications: Ambulatory Orders Medication Instructions Recorded Atorvastatin Calcium [Lipitor] 40 mg PO QHS 04/03/18 Carvedilol 12.5 mg PO DAILY 04/03/18 Diazepam [Valium] 5 mg PO 4X/DAY PRN #30 tab 05/30/18 Docusate Sodium [Colace] 100 mg PO BID #60 cap 05/30/18 Iron Polysaccharide Complex 150 mg PO DAILYCM #30 cap 05/30/18 [Ferrex 150] Mupirocin [Bactroban] 1 applic TOPICAL .QDAILY #2 tube 05/30/18 gabapentin 300 mg capsule 1,800 mg PO BID #360 cap 06/28/18 levofloxacin 500 mg tablet 500 mg PO DAILY 07/13/18 sertraline 25 mg tablet 25 mg PO DAILY PRN 07/13/18 apixaban 5 mg tablet 5 mg PO BID #60 tab 08/10/18 metronidazole 500 mg tablet 500 mg PO TID #30 tab 08/19/18 amlodipine 10 mg tablet 10 mg PO DAILY #90 tab 08/23/18 Maternal Family History: Family History (Last Reviewed 08/10/18 @ 10:08 by Aleja Lutz) Other CVA (cerebral vascular accident) Cancer Heart disease Family History: Cancer, Diabetes, Heart Disease, Renal Disease Paternal Family History: Family History (Last Reviewed 08/10/18 @ 10:08 by Aleja Lutz) Other CVA (cerebral vascular accident) Cancer Heart disease Family History: Cancer Smoking Status: Former smoker Physical Exam Vital Signs Temp Pulse Resp BP 97 F L 94 18 131/79 H 09/06/18 13:23 09/06/18 13:23 09/06/18 13:23 09/06/18 13:23 General: Alert, Oriented x3, Cooperative, No apparent distress HEENT: Atraumatic, TM's Clear Lungs: Clear to auscultation, Normal air movement Cardiovascular: Regular rate, Regular Rhythm Psych/Mental Status: Normal Affect, Appropriate, Alert and oriented to time, place, person, mood and affect Assessment/Plan Active Problems (Last Reviewed 08/10/18 @ 10:08 by Aleja Lutz) 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
[2018-09-07 13:24] VITALS: BP 126/82; BP 127/74; PULSE 72; PULSE 90; RESP 18; TEMP 36.3; TEMP 36.4
--- NOTE | 2018-09-07 15:32 | HBO.PN.PCM_ITS ---
History of Present Illness Date of Service: 08/31/18 Presenting Chief Complaint: Nonhealing ulcer left BKA stump with recent surgical closure 05/25/18 and mild skin graft/flap compromise. JANIE CHIN is a 52 year old currently undergoing hyperbaric oxygen therapy for nonhealing ulcer of left BKA stump with recent surgical closure 05/25/18 and skin graft/flap compromise. Progress: Patient appears to be tolerating hyperbaric oxygen therapy well. Today represents the 41st such session of hyperbaric oxygen therapy. Tolerance of hyperbaric oxygen therapy: Hyperbaric oxygen therapy was administered as per the facility's protocol. The patient tolerated hyperbaric oxygen therapy well, without complaints or complications. Upon emergence from the hyperbaric chamber, patient's vital signs remained stable. Patient was discharged in good condition. 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) Patient is on Coumadin for PE Chronic osteomyelitis of left tibia (Chronic) chronic osteomyelitis left tibia at BKA stump 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) Pain of amputation stump of left lower extremity (Chronic) Dermatitis (Chronic) CAD (coronary artery disease) (Chronic) Osteomyelitis of left lower extremity (Chronic) Pain of left anterior lower extremity (Chronic) Amputation, traumatic, leg (Chronic) HTN (hypertension) (Chronic) Hypertension (Chronic) Peripheral arterial disease (Chronic) SVT (supraventricular tachycardia) (Chronic) Hypercoagulable state (Chronic) Wound, surgical, nonhealing (Chronic) Ischemic ulcer of right foot (Chronic) Allergies/Adverse Reactions: Allergies Penicillins Allergy (Verified 08/10/18 10:05) Swelling adhesive tape Adverse Reaction (Verified 08/10/18 10:05) Rash Home Medications: Ambulatory Orders Medication Instructions Recorded Atorvastatin Calcium [Lipitor] 40 mg PO QHS 04/03/18 Carvedilol 12.5 mg PO DAILY 04/03/18 Diazepam [Valium] 5 mg PO 4X/DAY PRN #30 tab 05/30/18 Docusate Sodium [Colace] 100 mg PO BID #60 cap 05/30/18 Iron Polysaccharide Complex 150 mg PO DAILYCM #30 cap 05/30/18 [Ferrex 150] Mupirocin [Bactroban] 1 applic TOPICAL .QDAILY #2 tube 05/30/18 gabapentin 300 mg capsule 1,800 mg PO BID #360 cap 06/28/18 levofloxacin 500 mg tablet 500 mg PO DAILY 07/13/18 sertraline 25 mg tablet 25 mg PO DAILY PRN 07/13/18 apixaban 5 mg tablet 5 mg PO BID #60 tab 08/10/18 metronidazole 500 mg tablet 500 mg PO TID #30 tab 08/19/18 amlodipine 10 mg tablet 10 mg PO DAILY #90 tab 08/23/18 Maternal Family History: Family History (Last Reviewed 08/10/18 @ 10:08 by Aleja Lutz) Other CVA (cerebral vascular accident) Cancer Heart disease Family History: Cancer, Diabetes, Heart Disease, Renal Disease Paternal Family History: Family History (Last Reviewed 08/10/18 @ 10:08 by Aleja Lutz) Other CVA (cerebral vascular accident) Cancer Heart disease Family History: Cancer Smoking Status: Former smoker Physical Exam Vital Signs Temp Pulse Resp BP 97.3 F L 90 18 127/74 H 09/07/18 13:24 09/07/18 13:24 09/07/18 13:24 09/07/18 13:24 General: Alert, Oriented x3, Cooperative, No apparent distress Psych/Mental Status: Normal Affect, Appropriate Assessment/Plan Active Problems (Last Reviewed 08/10/18 @ 10:08 by Aleja Lutz) 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
--- NOTE | 2018-09-07 15:34 | HBO.PN.PCM_ITS ---
History of Present Illness Date of Service: 09/07/18 Presenting Chief Complaint: Nonhealing ulcer left BKA stump with recent surgical closure 05/25/18 and mild skin graft/flap compromise. JANIE CHIN is a 52 year old currently undergoing hyperbaric oxygen therapy for nonhealing ulcer of left BKA stump with recent surgical closure 05/25/18 and skin graft/flap compromise. Progress: Patient appears to be tolerating hyperbaric oxygen therapy well. Today represents the 44th such session of hyperbaric oxygen therapy. Tolerance of hyperbaric oxygen therapy: Hyperbaric oxygen therapy was administered as per the facility's protocol for 90 minutes at 2.0 SHARDA of 100% oxygen. The patient tolerated hyperbaric oxygen therapy well, without complaints or complications. Upon emergence from the hyperbaric chamber, patient's vital signs remained stable. Patient was discharged in good condition. 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) retirement current use of 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 (Chronic) Patient is on Coumadin for PE Chronic osteomyelitis of left tibia (Chronic) chronic osteomyelitis left tibia at BKA stump 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) Pain of amputation stump of left lower extremity (Chronic) Dermatitis (Chronic) CAD (coronary artery disease) (Chronic) Osteomyelitis of left lower extremity (Chronic) Pain of left anterior lower extremity (Chronic) Amputation, traumatic, leg (Chronic) HTN (hypertension) (Chronic) Hypertension (Chronic) Peripheral arterial disease (Chronic) SVT (supraventricular tachycardia) (Chronic) Hypercoagulable state (Chronic) Wound, surgical, nonhealing (Chronic) Ischemic ulcer of right foot (Chronic) Allergies/Adverse Reactions: Allergies Penicillins Allergy (Verified 08/10/18 10:05) Swelling adhesive tape Adverse Reaction (Verified 08/10/18 10:05) Rash Home Medications: Ambulatory Orders Medication Instructions Recorded Atorvastatin Calcium [Lipitor] 40 mg PO QHS 04/03/18 Carvedilol 12.5 mg PO DAILY 04/03/18 Diazepam [Valium] 5 mg PO 4X/DAY PRN #30 tab 05/30/18 Docusate Sodium [Colace] 100 mg PO BID #60 cap 05/30/18 Iron Polysaccharide Complex 150 mg PO DAILYCM #30 cap 05/30/18 [Ferrex 150] Mupirocin [Bactroban] 1 applic TOPICAL .QDAILY #2 tube 05/30/18 gabapentin 300 mg capsule 1,800 mg PO BID #360 cap 06/28/18 levofloxacin 500 mg tablet 500 mg PO DAILY 07/13/18 sertraline 25 mg tablet 25 mg PO DAILY PRN 07/13/18 apixaban 5 mg tablet 5 mg PO BID #60 tab 08/10/18 metronidazole 500 mg tablet 500 mg PO TID #30 tab 08/19/18 amlodipine 10 mg tablet 10 mg PO DAILY #90 tab 08/23/18 Maternal Family History: Family History (Last Reviewed 08/10/18 @ 10:08 by Aleja Lutz) Other CVA (cerebral vascular accident) Cancer Heart disease Family History: Cancer, Diabetes, Heart Disease, Renal Disease Paternal Family History: Family History (Last Reviewed 08/10/18 @ 10:08 by Aleja Lutz) Other CVA (cerebral vascular accident) Cancer Heart disease Family History: Cancer Smoking Status: Former smoker Physical Exam Vital Signs Temp Pulse Resp BP 97.3 F L 90 18 127/74 H 09/07/18 13:24 09/07/18 13:24 09/07/18 13:24 09/07/18 13:24 General: Alert, Oriented x3, Cooperative, No apparent distress Psych/Mental Status: Normal Affect, Appropriate Assessment/Plan Active Problems (Last Reviewed 08/10/18 @ 10:08 by Aleja Lutz) 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
[2018-09-10 08:17] VITALS: BP 130/69; PULSE 88; RESP 18; TEMP 36.6; BMI 24.5
[2018-09-10 09:47] VITALS: BP 124/70; BP 130/69; PULSE 68; PULSE 88; RESP 16; RESP 18; TEMP 36.3; TEMP 36.6
--- NOTE | 2018-09-10 12:19 | PCM.WC.PN ---
Type of Wound Date of Service: 09/10/18 Chief Complaint: Nonhealing ulcer left BKA stump with recent surgical closure 05/25/18 and mild skin graft/flap compromise. History of Wound: Surgery 05/25/18 - 1. Surgical preparation left BKA stump with excisional debridement nonhealing infected ulcer. 2. Complex secondary wound closure revision reconstruction with re-advancement muscle flap and bipedicle anterior leg fasciocutaneous advancement flap and STSG from the left flank (60 cm2). Surgery 04/05/18 - 1. Surgical preparation left BKA stump with incision and drainage and excisional debridement nonhealing infected ulcer. 2. Partial ostectomy tibia for osteomyelitis. Wound care - Acetic acid. Operative culture - MRSA. Soft tissue from 04/05/18 surgery - negative. Bone from 04/05/18 surgery - negative. Pathology from 04/05/18 surgery - negative for ostemyelitis. He was discharged on Bactrim DS. He has since finished the Bactrim DS. Initially perioperatively he was on Vancomycin. His Creatinine increased to 1.70 and the Vancomycin was stopped. At discharge his Creatinine had decreased to 1.49. He had Creatinine rechecked on 06/29/18 which was 1.96. Repeat Creatinine on 07/20/18 has decreased to 1.31. He had another wound culture done on 06/18/18 which showed Pseudomonas aeroginosa. He was placed on Levaquin and fininshed them. On 08/06/18, another wound culture was done because of increased odor. It showed Pseudomonas aeroginosa and Anaerobic cocci. He was started on Cipro and Flagyl was added. He has finished the Flagyl and will finish the Cipro approximately 09/17/18. Prealbumin from 05/26/18 was 17.5. Encourage nutritional supplementation with protein to help the healing process. MRI left BKA stump in 10/13 showed osteomyelitis. He changed his anticoagulation medication and stopped the Coumadin and started Eliquis. Today he denies fever. His appetite is good. With his early compromise to the skin graft/flap, he has started HBO treatments to help salvage the compromised graft/flap and is tolerating them thus far. He has noticed some mild visual blurring early on that has stayed constant. He states he hasn't noticed it worsening. I told him to tell me as soon as he has noticed any worsening of his symptoms, at which time the HBO would be stopped and evaluation by an Account Auditor would be done. There has been improvement in the healing of the compromised graft/flap but with the recent culture that showed Pseudomonas and anaerobes, he would benefit from continued HBO treatments (another 20), to continue the improved healing and salvage of the compromised graft/flap which would minimize further tissue destruction from the presence of Pseudomonas. Progress of Wound: Surgery 05/25/18 with mild skin graft/flap compromise, improved. - Physical Exam Vital Signs Temp Pulse Resp BP 97.8 F 88 18 130/69 H 09/10/18 09:47 09/10/18 09:47 09/10/18 09:47 09/10/18 09:47 Wound Measurements and Assessment WC - Nurse 1 - General Ulcer Measurement Start: 08/27/18 08:20 Freq: Status: Active Protocol: Activity Type Activity Date Activity User E-Sign Co-Sign Detail Recorded Client Recorded Date Recorded By Document 09/10/18 08:17 DL [id number] 09/10/18 08:20 DL 09/10/18 08:17 Wound Center Nurse 1 [Ulcer Assessment] #5 L BKA stump -Current Size (cm) - Length 3 -Current Size (cm) - Width 7.2 -Current Size (cm) - Depth 0.3 -Total Square Cm 21.6 -Photo Taken No -Exudate Amt Small -Exudate Type Serosanguineous -Wound Margin Distinct, Outline Attached -Granulation Amt Medium (34-66%) -Granulation Quality Red -Necrosis Amt Medium (34-66%) -Necrotic Tissue Type Adherent Slough -Structure Exposed N/A -Texture (Mai-wound Skin Appearance) Scarring -Moisture (Ami-wound Skin Appearance No Abnormality ) -Color (Ami-wound Skin Appearance) Rubor -Temperature (Ami-wound Skin No Abnormality Appearance) (Pt Warm) -Tenderness on Palpation (Ami-wound No Skin Appearance) -Ulcer Cleansing Rinsed/ Irrigated with Saline -Foul Odor after Cleansing No -Anesthetic Used 4% Lidocaine Solution WC - Nurse 2 - General Ulcer CM Notes Start: 08/27/18 08:20 Freq: Status: Active Protocol: Activity Type Activity Date Activity User E-Sign Co-Sign Detail Recorded Client Recorded Date Recorded By Document 09/10/18 08:53 MW [id number] 09/10/18 08:56 MW 09/10/18 08:53 Wound Center Nurse 2 [Procedure/Treatment] -Time 08:53 -Correct Patient Yes -Correct Side, Site, Position Yes -Correct Procedure Yes -Procedure Performed Yes -Type of Procedure Debridement -Clinical Debridement Subcutaneous -Post Debridement Size (cm) - Length 3.3 -Post Debridement Size (cm) - Width 7.0 -Post Debridement Size (cm) - Depth 0.4 -Total Square Cm 23.10 -Wound/Ulcer Outcome Not Healed -Ulcer Cleansing Rinsed/ Irrigated with Saline -Foul Odor after Cleansing No -Bioengineered Tissue No -Bleeding Controlled with Pressure -Offloading No -Treatment Response Procedure Tolerated Well [See Physician Procedure note for Specifics] Pain Scale: 0-10 Numeric [Pain] -Is Patient Pain Free? Yes Debridement Note Post-Debridement Measurements/Treatment WC - Nurse 2 - General Ulcer CM Notes Start: 08/27/18 08:20 Freq: Status: Active Protocol: Activity Type Activity Date Activity User E-Sign Co-Sign Detail Recorded Client Recorded Date Recorded By Document 08/27/18 08:34 [id number] 08/27/18 08:34 Document 09/03/18 08:33 [id number] 09/03/18 08:38 JF Document 09/10/18 08:53 MW [id number] 09/10/18 08:56 MW 08/27/18 09/03/18 09/10/18 08:34 08:33 08:53 Wound Center Nurse 2 #5 L BKA stump -Time 08:34 08:34 08:53 -Correct Patient Yes Yes Yes -Correct Side, Site, Position Yes Yes Yes -Correct Procedure Yes Yes Yes -Procedure Performed Yes Yes Yes -Type of Procedure Debridement Debridement Debridement -Clinical Debridement Subcutaneous Subcutaneous Subcutaneous -Post Debridement Size (cm) - Length 3.2 3.5 3.3 -Post Debridement Size (cm) - Width 8 7.6 7.0 -Post Debridement Size (cm) - Depth 0.5 0.2 0.4 -Total Square Cm 25.6 26.60 23.10 -Wound/Ulcer Outcome Not Healed Not Healed Not Healed -Ulcer Cleansing Rinsed/ Rinsed/ Rinsed/ Irrigated with Irrigated with Irrigated with Saline Saline Saline -Foul Odor after Cleansing No No No -Bioengineered Tissue No No No -Bleeding Controlled with Pressure Pressure Pressure -Offloading No No No -Treatment Response Procedure Procedure Procedure Tolerated Well Tolerated Well Tolerated Well Pain Scale: 0-10 Numeric Is Patient Pain Free? Yes Yes Yes Wound debrided: #5 Left BKA stump. Laterality: Left Wound Grade/Stage: 4. Type of Debridement: Excisional debridement Anesthesia Used: 4% Lidocaine Solution Depth: Down to and including healthy tissue, in the subcutaneous layer Percentage of wound debrided: 100 Instrument Used: 5mm curette Tissue Removed: subcutaneous tissue. 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 Nonhealing ulcer left BKA stump with recent surgical closure 05/25/18. 2. Pain left BKA stump. 3. MRSA. 4. 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 5. 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 6. 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 7. Early skin graft/flap compromise left BKA stump, (20% compromise). 8. s/p surgical preparation left BKA stump with excisional debridement nonhealing infected ulcer and complex secondary wound closure revision reconstruction with re-advancement muscle flap and bipedicle anterior leg fasciocutaneous advancement flap and STSG from the left flank (60 cm2). 9. JUAN (acute kidney injury), probable medication related, resolving. Plan: With the recent culture showing Pseudomonas, the wound care was changed to Acetic Acid. The wound continues to show good improvement with the Acetic Acid dressing and the Cipro antibiotics and the HBO treatments. There was some concern that he would need IV antibiotics for the Pseudomonas since it can be destructive to tissue and he already finished a course of Levaquin. He was placed on Cipro this time since the Levaquin had intermediate sensitivity. He was also started on Flagyl for Anaerobic cocci. Since the wound continues to show improvement with the Acetic Acid dressing, will hold off on IV antibiotics at this time. However will assess at each visit. If his healing worsens, will change to IV antibiotics at that point. That would require admission to the hospital and placement of a PICC line. After more healing is seen, will consider placement of placental connective tissue graft (Epifix) or Thera-skin. He is currently on Cipro for Pseudomonas and will wait on placement of these grafts until after the Cipro is completed (approximately one more week). The skin graft shows good adherence and about 85% take and good vascular ingrowth. There is some mild compromise at the inferior edge of the skin graft (about 15% compromise). The stump incision showed some superficial wound separation which is healing satisfactory. The stump is soft and swelling has resolved. The central aspect of the stump anteriorly shows some mild compromise (about 10%). After debridement, the underlying subcutaneous tissue continues to appear viable with no exposure of bone. With the mild skin graft/flap compromise (about 25% total), he started HBO treatments which would help salvage the compromised graft/flap. He is tolerating the HBO treatments thus far. He has noticed some mild visual blurring early on that has stayed constant. He states he hasn't noticed it worsening. I told him to tell me as soon as he has noticed any worsening of his symptoms, at which time the HBO would be stopped and evaluation by an Account Auditor would be done. There has been improvement in the healing of the compromised graft/flap and with the recent culture that showed Pseudomonas and anaerobes, he would benefit from continued HBO treatments (20 more treatments) as Pseudomonas can be destructive to tissue. Continued wound healing progress can be made with continuation of HBO treatments. Not only are we trying to salvage the compromised graft/flap, we are also trying to salvage the stump itself. Because if HBO treatments are stopped too soon and the tissue destruction continues with the Pseudomonas, the wound is at risk of eroding to the bone which increases the risk of revising the BKA stump to an AKA stump. The AKA necessitates a more complex prosthesis which will prolong rehab in the future. Prealbumin from the hospital was 17.5. Encourage nutritional supplementation with protein to help the healing process. After his last surgery in April, he had been on Vancomycin for a day which was stopped when his Creatinine increased to 1.70. It then decreased down to 1.49 before increasing back up to 1.96 and then most recently decreased back to 1.31 on 07/20/18. Encourage hydration. He has returned to work and is doing ok. Discussed with the patient that the presence of MRSA and Pseudomonas can be destructive to the surrounding tissue leading to suboptimal healing. After the Cipro has been completed for the Pseudomonas (approximately one more week), we can consider graft placement here at the Wound Center (i.e., Epifix or Thera-skin). Once again, the patient has been instructed to tell us if his visual blurring worsens during his remaining HBO treatments. Also with the patients history of vascular disease, will check a noninvasive arterial doppler study (LEAS). Renewed his Percocet for pain (30 tabs) and his Valium for spasm (20 tabs). Followup one week.
[2018-09-11 15:00] VITALS: BP 112/73; BP 117/77; PULSE 78; PULSE 90; RESP 16; RESP 18; TEMP 36.5; TEMP 36.8
--- NOTE | 2018-09-11 16:06 | PCM.HBO.PN ---
History of Present Illness Date of Service: 09/11/18 Presenting Chief Complaint: Nonhealing ulcer left BKA stump with recent surgical closure 05/25/18 and mild skin graft/flap compromise. JANIE CHIN is a 52 year old currently undergoing hyperbaric oxygen therapy for nonhealing ulcer of left BKA stump with recent surgical closure 05/25/18 and skin graft/flap compromise. Progress: Patient appears to be tolerating hyperbaric oxygen therapy well. Today represents the 46th such session of hyperbaric oxygen therapy. Tolerance of hyperbaric oxygen therapy: Hyperbaric oxygen therapy was administered as per the facility's protocol for 90 minutes at 2.0 SHARDA of 100% oxygen. The patient tolerated hyperbaric oxygen therapy well, without complaints or complications. Upon emergence from the hyperbaric chamber, patient's vital signs remained stable. Patient was discharged in good condition. 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) Patient is on Coumadin for PE Chronic osteomyelitis of left tibia (Chronic) chronic osteomyelitis left tibia at BKA stump 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) Pain of amputation stump of left lower extremity (Chronic) Dermatitis (Chronic) CAD (coronary artery disease) (Chronic) Osteomyelitis of left lower extremity (Chronic) Pain of left anterior lower extremity (Chronic) Amputation, traumatic, leg (Chronic) HTN (hypertension) (Chronic) Hypertension (Chronic) Peripheral arterial disease (Chronic) SVT (supraventricular tachycardia) (Chronic) Hypercoagulable state (Chronic) Wound, surgical, nonhealing (Chronic) Ischemic ulcer of right foot (Chronic) Allergies/Adverse Reactions: Allergies Penicillins Allergy (Verified 08/10/18 10:05) Swelling adhesive tape Adverse Reaction (Verified 08/10/18 10:05) Rash Home Medications: Ambulatory Orders Medication Instructions Recorded Atorvastatin Calcium [Lipitor] 40 mg PO QHS 04/03/18 Carvedilol 12.5 mg PO DAILY 04/03/18 Diazepam [Valium] 5 mg PO 4X/DAY PRN #30 tab 05/30/18 Docusate Sodium [Colace] 100 mg PO BID #60 cap 05/30/18 Iron Polysaccharide Complex 150 mg PO DAILYCM #30 cap 05/30/18 [Ferrex 150] Mupirocin [Bactroban] 1 applic TOPICAL .QDAILY #2 tube 05/30/18 gabapentin 300 mg capsule 1,800 mg PO BID #360 cap 06/28/18 levofloxacin 500 mg tablet 500 mg PO DAILY 07/13/18 sertraline 25 mg tablet 25 mg PO DAILY PRN 07/13/18 apixaban 5 mg tablet 5 mg PO BID #60 tab 08/10/18 metronidazole 500 mg tablet 500 mg PO TID #30 tab 08/19/18 amlodipine 10 mg tablet 10 mg PO DAILY #90 tab 08/23/18 Maternal Family History: Family History (Last Reviewed 08/10/18 @ 10:08 by Aleja Lutz) Other CVA (cerebral vascular accident) Cancer Heart disease Family History: Cancer, Diabetes, Heart Disease, Renal Disease Paternal Family History: Family History (Last Reviewed 08/10/18 @ 10:08 by Aleja Lutz) Other CVA (cerebral vascular accident) Cancer Heart disease Family History: Cancer Smoking Status: Former smoker Physical Exam Vital Signs Temp Pulse Resp BP 97.7 F L 90 18 117/77 09/11/18 15:00 09/11/18 15:00 09/11/18 15:00 09/11/18 15:00 General: Alert, Oriented x3, Cooperative HEENT: Atraumatic, PERRLA, TM's Clear Lungs: Clear to auscultation Cardiovascular: Regular rate Psych/Mental Status: Normal Affect, Appropriate Assessment/Plan Active Problems (Last Reviewed 08/10/18 @ 10:08 by Aleja Lutz) 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 Code Visit 22027
[2018-09-14 14:29] VITALS: BP 117/73; BP 133/86; PULSE 74; PULSE 90; RESP 16; RESP 18; TEMP 36.4; TEMP 36.5
--- NOTE | 2018-09-14 17:38 | HBO.PN.PCM_ITS ---
History of Present Illness Date of Service: 09/14/18 Presenting Chief Complaint: Nonhealing ulcer left BKA stump with recent surgical closure 05/25/18 and mild skin graft/flap compromise. JANIE CHIN is a 52 year old currently undergoing hyperbaric oxygen therapy for nonhealing ulcer of left BKA stump with recent surgical closure 05/25/18 and skin graft/flap compromise. Progress: Patient appears to be tolerating hyperbaric oxygen therapy well. Today represents the 47th such session of hyperbaric oxygen therapy. Tolerance of hyperbaric oxygen therapy: Hyperbaric oxygen therapy was administered as per the facility's protocol for 90 minutes at 2.0 SHARDA of 100% oxygen. The patient tolerated hyperbaric oxygen therapy well, without complaints or complications. Upon emergence from the hyperbaric chamber, patient's vital signs remained stable. Patient was discharged in good condition. 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 current use of 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 (Chronic) Patient is on Coumadin for PE Chronic osteomyelitis of left tibia (Chronic) chronic osteomyelitis left tibia at BKA stump 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) Pain of amputation stump of left lower extremity (Chronic) Dermatitis (Chronic) CAD (coronary artery disease) (Chronic) Osteomyelitis of left lower extremity (Chronic) Pain of left anterior lower extremity (Chronic) Amputation, traumatic, leg (Chronic) HTN (hypertension) (Chronic) Hypertension (Chronic) Peripheral arterial disease (Chronic) SVT (supraventricular tachycardia) (Chronic) Hypercoagulable state (Chronic) Wound, surgical, nonhealing (Chronic) Ischemic ulcer of right foot (Chronic) Allergies/Adverse Reactions: Allergies Penicillins Allergy (Verified 08/10/18 10:05) Swelling adhesive tape Adverse Reaction (Verified 08/10/18 10:05) Rash Home Medications: Ambulatory Orders Medication Instructions Recorded Atorvastatin Calcium [Lipitor] 40 mg PO QHS 04/03/18 Carvedilol 12.5 mg PO DAILY 04/03/18 Diazepam [Valium] 5 mg PO 4X/DAY PRN #30 tab 05/30/18 Docusate Sodium [Colace] 100 mg PO BID #60 cap 05/30/18 Iron Polysaccharide Complex 150 mg PO DAILYCM #30 cap 05/30/18 [Ferrex 150] Mupirocin [Bactroban] 1 applic TOPICAL .QDAILY #2 tube 05/30/18 gabapentin 300 mg capsule 1,800 mg PO BID #360 cap 06/28/18 levofloxacin 500 mg tablet 500 mg PO DAILY 07/13/18 sertraline 25 mg tablet 25 mg PO DAILY PRN 07/13/18 apixaban 5 mg tablet 5 mg PO BID #60 tab 08/10/18 metronidazole 500 mg tablet 500 mg PO TID #30 tab 08/19/18 amlodipine 10 mg tablet 10 mg PO DAILY #90 tab 08/23/18 Maternal Family History: Family History (Last Reviewed 08/10/18 @ 10:08 by Aleja Lutz) Other CVA (cerebral vascular accident) Cancer Heart disease Family History: Cancer, Diabetes, Heart Disease, Renal Disease Paternal Family History: Family History (Last Reviewed 08/10/18 @ 10:08 by Aleja Lutz) Other CVA (cerebral vascular accident) Cancer Heart disease Family History: Cancer Smoking Status: Former smoker Physical Exam Vital Signs Temp Pulse Resp BP 97.6 F L 90 18 133/86 H 09/14/18 14:29 09/14/18 14:29 09/14/18 14:29 09/14/18 14:29 General: Alert, Oriented x3, Cooperative, No apparent distress Psych/Mental Status: Normal Affect, Appropriate Assessment/Plan Active Problems (Last Reviewed 08/10/18 @ 10:08 by Aleja Lutz) 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
[2018-09-17 08:05] VITALS: BP 122/67; PULSE 78; RESP 18; TEMP 36; BMI 24.5
--- NOTE | 2018-09-17 08:50 | ADUL_ITS ---
Reason For Study: PAD Left Velocities Common Iliac Artery, prox = 28/0 cm./sec. Common Iliac Artery, dist = 38/8 cm./sec. Common Femoral Artery, prox = 21/14 cm./sec. Proximal to distal SFA does not demonstrate color filling or doppler signal. Trickle color flow and doppler present in the distal SFA within stent. No color flow or doppler in distal anastomosis. Profunda Femoral Artery = 58/16 cm./sec. Popliteal Artery, proximal, = 38/17 cm./sec. No color flow or doppler signal in distal POP A. 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 Procedure Exam performed in department. Interpretation Summary 1. Decrease flow through left iliac through common femoral to profunda. Furher evaluation as needed with CTA to define proximal. 2. Left SFa occluded. Ordering Physician: Francois Massey Referring Physician: Dharmesh Alonso Performed By: Malu Sheldon, RDCS, RVT
--- NOTE | 2018-09-17 08:52 | PCM.WC.PN ---
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 Current Visit: Yes Code(s): T86.828 - Other complications of skin graft (allograft) (autograft) (2) Methicillin resistant Staphylococcus aureus infection Status: Chronic Current Visit: Yes Code(s): A49.02 - Methicillin resistant Staphylococcus aureus infection, unspecified site (3) Chronic osteomyelitis of left tibia Status: Chronic Current Visit: Yes Code(s): M86.662 - Other chronic osteomyelitis, left tibia and fibula Comment: chronic osteomyelitis left tibia at BKA stump (4) half-way current use of 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 Status: Chronic Current Visit: Yes Code(s): Z79.01 - 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 History of Wound: Surgery 05/25/18 - 1. Surgical preparation left BKA stump with excisional debridement nonhealing infected ulcer. 2. Complex secondary wound closure revision reconstruction with re-advancement muscle flap and bipedicle anterior leg fasciocutaneous advancement flap and STSG from the left flank (60 cm2). Surgery 04/05/18 - 1. Surgical preparation left BKA stump with incision and drainage and excisional debridement nonhealing infected ulcer. 2. Partial ostectomy tibia for osteomyelitis. Wound care - Acetic acid. Operative culture - MRSA. Soft tissue from 04/05/18 surgery - negative. Bone from 04/05/18 surgery - negative. Pathology from 04/05/18 surgery - negative for ostemyelitis. He was discharged on Bactrim DS. He has since finished the Bactrim DS. Initially perioperatively he was on Vancomycin. His Creatinine increased to 1.70 and the Vancomycin was stopped. At discharge his Creatinine had decreased to 1.49. He had Creatinine rechecked on 06/29/18 which was 1.96. Repeat Creatinine on 07/20/18 has decreased to 1.31. He had another wound culture done on 06/18/18 which showed Pseudomonas aeroginosa. He was placed on Levaquin and fininshed them. On 3/11/19, another wound culture was done because of increased odor. It showed Pseudomonas aeroginosa and Anaerobic cocci. He was started on Cipro and Flagyl was added. He has finished the Flagyl and will finish the Cipro approximately 09/17/18. Prealbumin from 05/26/18 was 17.5. Encourage nutritional supplementation with protein to help the healing process. MRI left BKA stump in 10/13 showed osteomyelitis. He changed his anticoagulation medication and stopped the Coumadin and started Eliquis. Today he denies fever. His appetite is good. With his early compromise to the skin graft/flap, he has started HBO treatments to help salvage the compromised graft/flap and is tolerating them thus far. He has noticed some mild visual blurring early on that has stayed constant. He states he hasn't noticed it worsening. I told him to tell me as soon as he has noticed any worsening of his symptoms, at which time the HBO would be stopped and evaluation by an [employer] would be done. There has been improvement in the healing of the compromised graft/flap but with the recent culture that showed Pseudomonas and anaerobes, he would benefit from continued HBO treatments (another 20), to continue the improved healing and salvage of the compromised graft/flap which would minimize further tissue destruction from the presence of Pseudomonas. Progress of Wound: Surgery 05/25/18 with mild skin graft/flap compromise, improved. - Physical Exam Vital Signs Temp Pulse Resp BP 96.8 F L 78 18 122/67 H 09/17/18 08:05 09/17/18 08:05 09/17/18 08:05 09/17/18 08:05 General: Alert, Oriented x3, Cooperative HEENT: Atraumatic Oral: Moist Mucosa Lungs: Normal air movement Cardiovascular: Regular rate Extremities: No edema, Capillary Refill Less than 3 Seconds Skin: Ulcer/ Wound - Left BKA stump ulcer Wound Measurements and Assessment WC - Nurse 1 - General Ulcer Measurement Start: 08/27/18 08:20 Freq: Status: Active Protocol: Activity Type Activity Date Activity User E-Sign Co-Sign Detail Recorded Client Recorded Date Recorded By Document 09/17/18 08:05 AN [id number] 09/17/18 08:08 AN 09/17/18 08:05 Wound Center Nurse 1 [Ulcer Assessment] #5 L BKA stump -Current Size (cm) - Length 2.9 -Current Size (cm) - Width 6.5 -Current Size (cm) - Depth 0.4 -Total Square Cm 18.85 -Photo Taken No -Tunneling No -Undermining/Tunneling No -Classification - Thickness Full Thickness without Exposed Support Structure -Exudate Amt Medium -Exudate Type Serosanguineous -Wound Margin Distinct, Outline Attached -Granulation Amt Medium (34-66%) -Granulation Quality Red -Necrosis Amt Medium (34-66%) -Necrotic Tissue Type Adherent Slough -Structure Exposed None/Limited to Skin Breakdown -Texture (Ami-wound Skin Appearance) Assessed -Moisture (Ami-wound Skin Appearance Assessed ) -Color (Ami-wound Skin Appearance) Assessed -Temperature (Ami-wound Skin No Abnormality Appearance) (Pt Warm) -Tenderness on Palpation (Ami-wound No Skin Appearance) -Ulcer Cleansing Rinsed/ Irrigated with Saline -Foul Odor after Cleansing No -Anesthetic Used 4% Lidocaine Solution WC - Nurse 2 - General Ulcer CM Notes Start: 08/27/18 08:20 Freq: Status: Active Protocol: Activity Type Activity Date Activity User E-Sign Co-Sign Detail Recorded Client Recorded Date Recorded By Document 09/17/18 08:23 FLAVIA [id number] 09/17/18 08:24 FLAVIA 09/17/18 08:23 Wound Center Nurse 2 [Procedure/Treatment] -Time 08:23 -Correct Patient Yes -Correct Side, Site, Position Yes -Correct Procedure Yes -Procedure Performed Yes -Type of Procedure Debridement -Clinical Debridement Subcutaneous -Post Debridement Size (cm) - Length 2.6 -Post Debridement Size (cm) - Width 6.5 -Post Debridement Size (cm) - Depth 0.4 -Total Square Cm 16.90 -Wound/Ulcer Outcome Not Healed -Ulcer Cleansing Rinsed/ Irrigated with Saline -Foul Odor after Cleansing No -Bioengineered Tissue No -Bleeding Controlled with Pressure -Offloading No -Treatment Response Procedure Tolerated Well [See Physician Procedure note for Specifics] Pain Scale: 0-10 Numeric [Pain] -Is Patient Pain Free? Yes Musculoskeletal: Tenderness - Extreme tenderness over bone on BKA ulcer. Neurological: Neuro grossly intact Psych/Mental Status: Normal Affect, Appropriate Debridement Note Post-Debridement Measurements/Treatment WC - Nurse 2 - General Ulcer CM Notes Start: 08/27/18 08:20 Freq: Status: Active Protocol: Activity Type Activity Date Activity User E-Sign Co-Sign Detail Recorded Client Recorded Date Recorded By Document 08/27/18 08:34 JF [id number] 08/27/18 08:34 JF Document 09/03/18 08:33 JF [id number] 09/03/18 08:38 JF Document 09/10/18 08:53 MW [id number] 09/10/18 08:56 MW Document 09/17/18 08:23 JF [id number] 09/17/18 08:24 JF 08/27/18 09/03/18 09/10/18 08:34 08:33 08:53 Wound Center Nurse 2 #5 L BKA stump -Time 08:34 08:34 08:53 -Correct Patient Yes Yes Yes -Correct Side, Site, Position Yes Yes Yes -Correct Procedure Yes Yes Yes -Procedure Performed Yes Yes Yes -Type of Procedure Debridement Debridement Debridement -Clinical Debridement Subcutaneous Subcutaneous Subcutaneous -Post Debridement Size (cm) - Length 3.2 3.5 3.3 -Post Debridement Size (cm) - Width 8 7.6 7.0 -Post Debridement Size (cm) - Depth 0.5 0.2 0.4 -Total Square Cm 25.6 26.60 23.10 -Wound/Ulcer Outcome Not Healed Not Healed Not Healed -Ulcer Cleansing Rinsed/ Rinsed/ Rinsed/ Irrigated with Irrigated with Irrigated with Saline Saline Saline -Foul Odor after Cleansing No No No -Bioengineered Tissue No No No -Bleeding Controlled with Pressure Pressure Pressure -Offloading No No No -Treatment Response Procedure Procedure Procedure Tolerated Well Tolerated Well Tolerated Well Pain Scale: 0-10 Numeric Is Patient Pain Free? Yes Yes Yes 09/17/18 08:23 Wound Center Nurse 2 #5 L BKA stump -Time 08:23 -Correct Patient Yes -Correct Side, Site, Position Yes -Correct Procedure Yes -Procedure Performed Yes -Type of Procedure Debridement -Clinical Debridement Subcutaneous -Post Debridement Size (cm) - Length 2.6 -Post Debridement Size (cm) - Width 6.5 -Post Debridement Size (cm) - Depth 0.4 -Total Square Cm 16.90 -Wound/Ulcer Outcome Not Healed -Ulcer Cleansing Rinsed/ Irrigated with Saline -Foul Odor after Cleansing No -Bioengineered Tissue No -Bleeding Controlled with Pressure -Offloading No -Treatment Response Procedure Tolerated Well Pain Scale: 0-10 Numeric Is Patient Pain Free? Yes Wound debrided: Left BKA ulcer Laterality: Left Type of Debridement: Excisional debridement Anesthesia Used: 4% Lidocaine Solution Depth: Down to and including healthy tissue, in the subcutaneous layer Percentage of wound debrided: 100 Instrument Used: 7mm curette Tissue Removed: Subcutaneous tissue and slough Severity: Fat Layer Exposed Amount of bleeding with debridement: Mild Bleeding Controlled with: Pressure Patient tolerated procedure well Assessment/Plan Active Problems (Last Reviewed 08/10/18 @ 10:08 by Aleja Lutz) Partial loss of skin graft (Chronic) Methicillin resistant Staphylococcus aureus infection (Chronic) History of DVT (deep vein thrombosis) (Chronic) half-way current use of 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 (Chronic) Patient is on Coumadin for PE Chronic osteomyelitis of left tibia (Chronic) chronic osteomyelitis left tibia at BKA stump Assessment: 1. Nonhealing ulcer left BKA stump with recent surgical closure 05/25/18. 2. Pain left BKA stump. 3. MRSA. 4. 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 5. 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 6. 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 7. Early skin graft/flap compromise left BKA stump, (20% compromise). 8. s/p surgical preparation left BKA stump with excisional debridement nonhealing infected ulcer and complex secondary wound closure revision reconstruction with re-advancement muscle flap and bipedicle anterior leg fasciocutaneous advancement flap and STSG from the left flank (60 cm2). 9. JUAN (acute kidney injury), probable medication related, resolving. Plan: With the recent culture showing Pseudomonas, the wound care was changed to Acetic Acid. The wound continues to show good improvement with the Acetic Acid dressing and the Cipro antibiotics and the HBO treatments. There was some concern that he would need IV antibiotics for the Pseudomonas since it can be destructive to tissue and he already finished a course of Levaquin. He was placed on Cipro this time since the Levaquin had intermediate sensitivity. He was also started on Flagyl for Anaerobic cocci. Since the wound continues to show improvement with the Acetic Acid dressing, will hold off on IV antibiotics at this time. However will assess at each visit. If his healing worsens, will change to IV antibiotics at that point. That would require admission to the hospital and placement of a PICC line. Since there is good healing and he is done with his antibiotics, we will apply for placement of placental connective tissue graft (Epicord and Epifix). The skin graft shows good adherence and about 85% take and good vascular ingrowth. There is some mild compromise at the inferior edge of the skin graft (about 15% compromise). The stump incision showed some superficial wound separation which is healing satisfactory. The stump is soft and swelling has resolved. The central aspect of the stump anteriorly shows some mild compromise (about 10%). After debridement, the underlying subcutaneous tissue continues to appear viable with no exposure of bone. With the mild skin graft/flap compromise (about 25% total), he started HBO treatments which would help salvage the compromised graft/flap. He is tolerating the HBO treatments thus far. He has noticed some mild visual blurring early on that has stayed constant. He states he hasn't noticed it worsening. I told him to tell me as soon as he has noticed any worsening of his symptoms, at which time the HBO would be stopped and evaluation by an [employer] would be done. There has been improvement in the healing of the compromised graft/flap and with the recent culture that showed Pseudomonas and anaerobes, he would benefit from continued HBO treatments (20 more treatments) as Pseudomonas can be destructive to tissue. Continued wound healing progress can be made with continuation of HBO treatments. Not only are we trying to salvage the compromised graft/flap, we are also trying to salvage the stump itself. Because if HBO treatments are stopped too soon and the tissue destruction continues with the Pseudomonas, the wound is at risk of eroding to the bone which increases the risk of revising the BKA stump to an AKA stump. The AKA necessitates a more complex prosthesis which will prolong rehab in the future. Prealbumin from the hospital was 17.5. Encourage nutritional supplementation with protein to help the healing process. After his last surgery in April, he had been on Vancomycin for a day which was stopped when his Creatinine increased to 1.70. It then decreased down to 1.49 before increasing back up to 1.96 and then most recently decreased back to 1.31 on 07/20/18. Encourage hydration. He has returned to work and is doing ok. Once again, the patient has been instructed to tell us if his visual blurring worsens during his remaining HBO treatments. Also with the patients history of vascular disease, will check a noninvasive arterial doppler study (LEAS). Followup one week. Code Visit [id number]: 88013 Aleena subq tissue 20 sq cm/<
--- NOTE | 2018-09-17 09:00 | PN.PCM_ITS ---
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 Current Visit: Yes Code(s): T86.828 - Other complications of skin graft (allograft) (autograft) (2) Methicillin resistant Staphylococcus aureus infection Status: Chronic Current Visit: Yes Code(s): A49.02 - Methicillin resistant Staphylococcus aureus infection, unspecified site (3) Chronic osteomyelitis of left tibia Status: Chronic Current Visit: Yes Code(s): M86.662 - Other chronic osteomyelitis, left tibia and fibula Comment: chronic osteomyelitis left tibia at BKA stump (4) detention current use of 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 Status: Chronic Current Visit: Yes Code(s): Z79.01 - detention (current) use of 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s Comment: Patient is on Coumadin for PE (5) History of DVT (deep vein thrombosis) Status: Chronic Current Visit: Yes Code(s): Z86.718 - Personal history of other venous thrombosis and embolism Type of Wound Date of Service: 09/17/18 Chief Complaint: Nonhealing ulcer left BKA stump with recent surgical closure 05/25/18 and mild skin graft/flap compromise. History of Wound: Surgery 05/25/18 - 1. Surgical preparation left BKA stump with excisional debridement nonhealing infected ulcer. 2. Complex secondary wound closure revision reconstruction with re-advancement muscle flap and bipedicle anterior leg fasciocutaneous advancement flap and STSG from the left flank (60 cm2). Surgery 04/05/18 - 1. Surgical preparation left BKA stump with incision and drainage and excisional debridement nonhealing infected ulcer. 2. Partial ostectomy tibia for osteomyelitis. Wound care - Acetic acid. Operative culture - MRSA. Soft tissue from 04/05/18 surgery - negative. Bone from 04/05/18 surgery - negative. Pathology from 04/05/18 surgery - negative for ostemyelitis. He was discharged on Bactrim DS. He has since finished the Bactrim DS. Initially perioperatively he was on Vancomycin. His Creatinine increased to 1.70 and the Vancomycin was stopped. At discharge his Creatinine had decreased to 1.49. He had Creatinine rechecked on 06/29/18 which was 1.96. Repeat Creatinine on 07/20/18 has decreased to 1.31. He had another wound culture done on 06/18/18 which showed Pseudomonas aeroginosa. He was placed on Levaquin and fininshed them. On 3/11/19, another wound culture was done because of increased odor. It showed Pseudomonas aeroginosa and Anaerobic cocci. He was started on Cipro and Flagyl was added. He has finished the Flagyl and will finish the Cipro approximately 09/17/18. Prealbumin from 05/26/18 was 17.5. Encourage nutritional supplementation with protein to help the healing process. MRI left BKA stump in 10/13 showed osteomyelitis. He changed his anticoagulation medication and stopped the Coumadin and started Eliquis. Today he denies fever. His appetite is good. With his early compromise to the skin graft/flap, he has started HBO treatments to help salvage the compromised graft/flap and is tolerating them thus far. He has noticed some mild visual blurring early on that has stayed constant. He states he hasn't noticed it worsening. I told him to tell me as soon as he has noticed any worsening of his symptoms, at which time the HBO would be stopped and evaluation by an Organizational Consultant would be done. There has been improvement in the healing of the compromised graft/flap but with the recent culture that showed Pseudomonas and anaerobes, he would benefit from continued HBO treatments (another 20), to continue the improved healing and salvage of the compromised graft/flap which would minimize further tissue destruction from the presence of Pseudomonas. Progress of Wound: Surgery 05/25/18 with mild skin graft/flap compromise, improved. - Physical Exam Vital Signs Temp Pulse Resp BP 96.8 F L 78 18 122/67 H 09/17/18 08:05 09/17/18 08:05 09/17/18 08:05 09/17/18 08:05 General: Alert, Oriented x3, Cooperative HEENT: Atraumatic Oral: Moist Mucosa Lungs: Normal air movement Cardiovascular: Regular rate Extremities: No edema, Capillary Refill Less than 3 Seconds Skin: Ulcer/ Wound - Left BKA stump ulcer Wound Measurements and Assessment WC - Nurse 1 - General Ulcer Measurement Start: 08/27/18 08:20 Freq: Status: Active Protocol: Activity Type Activity Date Activity User E-Sign Co-Sign Detail Recorded Client Recorded Date Recorded By Document 09/17/18 08:05 AN [id number] 09/17/18 08:08 AN 09/17/18 08:05 Wound Center Nurse 1 [Ulcer Assessment] #5 L BKA stump -Current Size (cm) - Length 2.9 -Current Size (cm) - Width 6.5 -Current Size (cm) - Depth 0.4 -Total Square Cm 18.85 -Photo Taken No -Tunneling No -Undermining/Tunneling No -Classification - Thickness Full Thickness without Exposed Support Structure -Exudate Amt Medium -Exudate Type Serosanguineous -Wound Margin Distinct, Outline Attached -Granulation Amt Medium (34-66%) -Granulation Quality Red -Necrosis Amt Medium (34-66%) -Necrotic Tissue Type Adherent Slough -Structure Exposed None/Limited to Skin Breakdown -Texture (Ami-wound Skin Appearance) Assessed -Moisture (Ami-wound Skin Appearance Assessed ) -Color (Ami-wound Skin Appearance) Assessed -Temperature (Ami-wound Skin No Abnormality Appearance) (Pt Warm) -Tenderness on Palpation (Ami-wound No Skin Appearance) -Ulcer Cleansing Rinsed/ Irrigated with Saline -Foul Odor after Cleansing No -Anesthetic Used 4% Lidocaine Solution WC - Nurse 2 - General Ulcer CM Notes Start: 08/27/18 08:20 Freq: Status: Active Protocol: Activity Type Activity Date Activity User E-Sign Co-Sign Detail Recorded Client Recorded Date Recorded By Document 09/17/18 08:23 FLAVIA [id number] 09/17/18 08:24 FLAVIA 09/17/18 08:23 Wound Center Nurse 2 [Procedure/Treatment] -Time 08:23 -Correct Patient Yes -Correct Side, Site, Position Yes -Correct Procedure Yes -Procedure Performed Yes -Type of Procedure Debridement -Clinical Debridement Subcutaneous -Post Debridement Size (cm) - Length 2.6 -Post Debridement Size (cm) - Width 6.5 -Post Debridement Size (cm) - Depth 0.4 -Total Square Cm 16.90 -Wound/Ulcer Outcome Not Healed -Ulcer Cleansing Rinsed/ Irrigated with Saline -Foul Odor after Cleansing No -Bioengineered Tissue No -Bleeding Controlled with Pressure -Offloading No -Treatment Response Procedure Tolerated Well [See Physician Procedure note for Specifics] Pain Scale: 0-10 Numeric [Pain] -Is Patient Pain Free? Yes Musculoskeletal: Tenderness - Extreme tenderness over bone on BKA ulcer. Neurological: Neuro grossly intact Psych/Mental Status: Normal Affect, Appropriate Debridement Note Post-Debridement Measurements/Treatment WC - Nurse 2 - General Ulcer CM Notes Start: 08/27/18 08:20 Freq: Status: Active Protocol: Activity Type Activity Date Activity User E-Sign Co-Sign Detail Recorded Client Recorded Date Recorded By Document 08/27/18 08:34 JF [id number] 08/27/18 08:34 JF Document 09/03/18 08:33 JF [id number] 09/03/18 08:38 JF Document 09/10/18 08:53 MW [id number] 09/10/18 08:56 MW Document 09/17/18 08:23 JF [id number] 09/17/18 08:24 JF 08/27/18 09/03/18 09/10/18 08:34 08:33 08:53 Wound Center Nurse 2 #5 L BKA stump -Time 08:34 08:34 08:53 -Correct Patient Yes Yes Yes -Correct Side, Site, Position Yes Yes Yes -Correct Procedure Yes Yes Yes -Procedure Performed Yes Yes Yes -Type of Procedure Debridement Debridement Debridement -Clinical Debridement Subcutaneous Subcutaneous Subcutaneous -Post Debridement Size (cm) - Length 3.2 3.5 3.3 -Post Debridement Size (cm) - Width 8 7.6 7.0 -Post Debridement Size (cm) - Depth 0.5 0.2 0.4 -Total Square Cm 25.6 26.60 23.10 -Wound/Ulcer Outcome Not Healed Not Healed Not Healed -Ulcer Cleansing Rinsed/ Rinsed/ Rinsed/ Irrigated with Irrigated with Irrigated with Saline Saline Saline -Foul Odor after Cleansing No No No -Bioengineered Tissue No No No -Bleeding Controlled with Pressure Pressure Pressure -Offloading No No No -Treatment Response Procedure Procedure Procedure Tolerated Well Tolerated Well Tolerated Well Pain Scale: 0-10 Numeric Is Patient Pain Free? Yes Yes Yes 09/17/18 08:23 Wound Center Nurse 2 #5 L BKA stump -Time 08:23 -Correct Patient Yes -Correct Side, Site, Position Yes -Correct Procedure Yes -Procedure Performed Yes -Type of Procedure Debridement -Clinical Debridement Subcutaneous -Post Debridement Size (cm) - Length 2.6 -Post Debridement Size (cm) - Width 6.5 -Post Debridement Size (cm) - Depth 0.4 -Total Square Cm 16.90 -Wound/Ulcer Outcome Not Healed -Ulcer Cleansing Rinsed/ Irrigated with Saline -Foul Odor after Cleansing No -Bioengineered Tissue No -Bleeding Controlled with Pressure -Offloading No -Treatment Response Procedure Tolerated Well Pain Scale: 0-10 Numeric Is Patient Pain Free? 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 Nonhealing ulcer left BKA stump with recent surgical closure 05/25/18. 2. Pain left BKA stump. 3. MRSA. 4. 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 5. 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 7. Early skin graft/flap compromise left BKA stump, (20% compromise). 8. s/p surgical preparation left BKA stump with excisional debridement nonhealing infected ulcer and complex secondary wound closure revision reconstruction with re-advancement muscle flap and bipedicle anterior leg fasciocutaneous advancement flap and STSG from the left flank (60 cm2). 9. JUAN (acute kidney injury), probable medication related, resolving. Plan: With the recent culture showing Pseudomonas, the wound care was changed to Acetic Acid. The wound continues to show good improvement with the Acetic Acid dressing and the Cipro antibiotics and the HBO treatments. There was some concern that he would need IV antibiotics for the Pseudomonas since it can be destructive to tissue and he already finished a course of Levaquin. He was placed on Cipro this time since the Levaquin had intermediate sensitivity. He was also started on Flagyl for Anaerobic cocci. Since the wound continues to show improvement with the Acetic Acid dressing, will hold off on IV antibiotics at this time. However will assess at each visit. If his healing worsens, will change to IV antibiotics at that point. That would require admission to the hospital and placement of a PICC line. Since there is good healing and he is done with his antibiotics, we will apply for placement of placental connective tissue graft (Epicord and Epifix). The skin graft shows good adherence and about 85% take and good vascular ingrowth. There is some mild compromise at the inferior edge of the skin graft (about 15% compromise). The stump incision showed some superficial wound separation which is healing satisfactory. The stump is soft and swelling has resolved. The central aspect of the stump anteriorly shows some mild compromise (about 10%). After debridement, the underlying subcutaneous tissue continues to appear viable with no exposure of bone. With the mild skin graft/flap compromise (about 25% total), he started HBO treatments which would help salvage the compromised graft/flap. He is tolera ting the HBO treatments thus far. He has noticed some mild visual blurring early on that has stayed constant. He states he hasn't noticed it worsening. I told him to tell me as soon as he has noticed any worsening of his symptoms, at which time the HBO would be stopped and evaluation by an Organizational Consultant would be done. There has been improvement in the healing of the compromised graft/flap and with the recent culture that showed Pseudomonas and anaerobes, he would benefit from continued HBO treatments (20 more treatments) as Pseudomonas can be destructive to tissue. Continued wound healing progress can be made with continuation of HBO treatments. Not only are we trying to salvage the compromised graft/flap, we are also trying to salvage the stump itself. Because if HBO treatments are stopped too soon and the tissue destruction continues with the Pseudomonas, the wound is at risk of eroding to the bone which increases the risk of revising the BKA stump to an AKA stump. The AKA necessitates a more complex prosthesis which will prolong rehab in the future. Prealbumin from the hospital was 17.5. Encourage nutritional supplementation with protein to help the healing process. After his last surgery in April, he had been on Vancomycin for a day which was stopped when his Creatinine increased to 1.70. It then decreased down to 1.49 before increasing back up to 1.96 and then most recently decreased back to 1.31 on 07/20/18. Encourage hydration. He has returned to work and is doing ok. Once again, the patient has been instructed to tell us if his visual blurring worsens during his remaining HBO treatments. Also with the patients history of vascular disease, will check a noninvasive arterial doppler study (LEAS). Followup one week. Code Visit [id number]: [id number] Aleena subq tissue 20 sq cm/<
[2018-09-17 12:10] VITALS: BP 116/82; BP 120/76; PULSE 74; PULSE 93; RESP 16; RESP 18; TEMP 35.8; TEMP 36.1
--- NOTE | 2018-09-17 12:51 | HBO.PN.PCM_ITS ---
History of Present Illness Date of Service: 09/17/18 Presenting Chief Complaint: Nonhealing ulcer left BKA stump with recent surgical closure 05/25/18 and mild skin graft/flap compromise. JANIE CHIN is a 52 year old currently undergoing hyperbaric oxygen therapy for nonhealing ulcer of left BKA stump with recent surgical closure 05/25/18 and skin graft/flap compromise. Progress: Patient appears to be tolerating hyperbaric oxygen therapy well. Today represents the 48th such session of hyperbaric oxygen therapy. Tolerance of hyperbaric oxygen therapy: Hyperbaric oxygen therapy was administered as per the facility's protocol for 90 minutes at 2.0 SHARDA of 100% oxygen. The patient tolerated hyperbaric oxygen therapy well, without complaints or complications. Upon emergence from the hyperbaric chamber, patient's vital signs remained stable. Patient was discharged in good condition. 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) halfway current use of 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 (Chronic) Patient is on Coumadin for PE Chronic osteomyelitis of left tibia (Chronic) chronic osteomyelitis left tibia at BKA stump 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) Pain of amputation stump of left lower extremity (Chronic) Dermatitis (Chronic) CAD (coronary artery disease) (Chronic) Osteomyelitis of left lower extremity (Chronic) Pain of left anterior lower extremity (Chronic) Amputation, traumatic, leg (Chronic) HTN (hypertension) (Chronic) Hypertension (Chronic) Peripheral arterial disease (Chronic) SVT (supraventricular tachycardia) (Chronic) Hypercoagulable state (Chronic) Wound, surgical, nonhealing (Chronic) Ischemic ulcer of right foot (Chronic) Allergies/Adverse Reactions: Allergies Penicillins Allergy (Verified 08/10/18 10:05) Swelling adhesive tape Adverse Reaction (Verified 08/10/18 10:05) Rash Home Medications: Ambulatory Orders Medication Instructions Recorded Atorvastatin Calcium [Lipitor] 40 mg PO QHS 04/03/18 Carvedilol 12.5 mg PO DAILY 04/03/18 Diazepam [Valium] 5 mg PO 4X/DAY PRN #30 tab 05/30/18 Docusate Sodium [Colace] 100 mg PO BID #60 cap 05/30/18 Iron Polysaccharide Complex 150 mg PO DAILYCM #30 cap 05/30/18 [Ferrex 150] Mupirocin [Bactroban] 1 applic TOPICAL .QDAILY #2 tube 05/30/18 gabapentin 300 mg capsule 1,800 mg PO BID #360 cap 06/28/18 levofloxacin 500 mg tablet 500 mg PO DAILY 07/13/18 sertraline 25 mg tablet 25 mg PO DAILY PRN 07/13/18 apixaban 5 mg tablet 5 mg PO BID #60 tab 08/10/18 metronidazole 500 mg tablet 500 mg PO TID #30 tab 08/19/18 amlodipine 10 mg tablet 10 mg PO DAILY #90 tab 08/23/18 Maternal Family History: Family History (Last Reviewed 08/10/18 @ 10:08 by Aleja Lutz) Other CVA (cerebral vascular accident) Cancer Heart disease Family History: Cancer, Diabetes, Heart Disease, Renal Disease Paternal Family History: Family History (Last Reviewed 08/10/18 @ 10:08 by Aleja Lutz) Other CVA (cerebral vascular accident) Cancer Heart disease Family History: Cancer Smoking Status: Former smoker Physical Exam Vital Signs Temp Pulse Resp BP 96.5 F L 93 18 116/82 H 09/17/18 12:10 09/17/18 12:10 09/17/18 12:10 09/17/18 12:10 General: Alert, Oriented x3, Cooperative, No apparent distress HEENT: Atraumatic, TM's Clear Lungs: Clear to auscultation, Normal air movement Cardiovascular: Regular rate, Regular Rhythm Psych/Mental Status: Normal Affect, Appropriate, Alert and oriented to time, place, person, mood and affect Assessment/Plan Active Problems (Last Reviewed 08/10/18 @ 10:08 by Aleja Lutz) 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
[2018-09-18 13:04] VITALS: BP 111/70; BP 127/80; PULSE 78; PULSE 91; RESP 16; TEMP 36.4
--- NOTE | 2018-09-18 13:21 | PCM.HBO.PN ---
History of Present Illness Date of Service: 09/18/18 Presenting Chief Complaint: Nonhealing ulcer left BKA stump with recent surgical closure 05/25/18 and mild skin graft/flap compromise. JANIE CHIN is a 52 year old currently undergoing hyperbaric oxygen therapy for nonhealing ulcer of left BKA stump with recent surgical closure 05/25/18 and skin graft/flap compromise. Progress: Patient appears to be tolerating hyperbaric oxygen therapy well. Today represents the 49th such session of hyperbaric oxygen therapy. Tolerance of hyperbaric oxygen therapy: Hyperbaric oxygen therapy was administered as per the facility's protocol for 90 minutes at 2.0 SHARDA of 100% oxygen. The patient tolerated hyperbaric oxygen therapy well, without complaints or complications. Upon emergence from the hyperbaric chamber, patient's vital signs remained stable. Patient was discharged in good condition. 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 current use of 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 (Chronic) Patient is on Coumadin for PE Chronic osteomyelitis of left tibia (Chronic) chronic osteomyelitis left tibia at BKA stump 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) Pain of amputation stump of left lower extremity (Chronic) Dermatitis (Chronic) CAD (coronary artery disease) (Chronic) Osteomyelitis of left lower extremity (Chronic) Pain of left anterior lower extremity (Chronic) Amputation, traumatic, leg (Chronic) HTN (hypertension) (Chronic) Hypertension (Chronic) Peripheral arterial disease (Chronic) SVT (supraventricular tachycardia) (Chronic) Hypercoagulable state (Chronic) Wound, surgical, nonhealing (Chronic) Ischemic ulcer of right foot (Chronic) Allergies/Adverse Reactions: Allergies Penicillins Allergy (Verified 08/10/18 10:05) Swelling adhesive tape Adverse Reaction (Verified 08/10/18 10:05) Rash Home Medications: Ambulatory Orders Medication Instructions Recorded Atorvastatin Calcium [Lipitor] 40 mg PO QHS 04/03/18 Carvedilol 12.5 mg PO DAILY 04/03/18 Diazepam [Valium] 5 mg PO 4X/DAY PRN #30 tab 05/30/18 Docusate Sodium [Colace] 100 mg PO BID #60 cap 05/30/18 Iron Polysaccharide Complex 150 mg PO DAILYCM #30 cap 05/30/18 [Ferrex 150] Mupirocin [Bactroban] 1 applic TOPICAL .QDAILY #2 tube 05/30/18 gabapentin 300 mg capsule 1,800 mg PO BID #360 cap 06/28/18 levofloxacin 500 mg tablet 500 mg PO DAILY 07/13/18 sertraline 25 mg tablet 25 mg PO DAILY PRN 07/13/18 apixaban 5 mg tablet 5 mg PO BID #60 tab 08/10/18 metronidazole 500 mg tablet 500 mg PO TID #30 tab 08/19/18 amlodipine 10 mg tablet 10 mg PO DAILY #90 tab 08/23/18 Maternal Family History: Family History (Last Reviewed 08/10/18 @ 10:08 by Aleja Lutz) Other CVA (cerebral vascular accident) Cancer Heart disease Family History: Cancer, Diabetes, Heart Disease, Renal Disease Paternal Family History: Family History (Last Reviewed 08/10/18 @ 10:08 by Aleja Lutz) Other CVA (cerebral vascular accident) Cancer Heart disease Family History: Cancer Smoking Status: Former smoker Physical Exam Vital Signs Temp Pulse Resp BP 97.6 F L 91 16 127/80 H 09/18/18 13:04 09/18/18 13:04 09/18/18 13:04 09/18/18 13:04 General: Alert, Oriented x3, Cooperative, No apparent distress HEENT: Atraumatic, TM's Clear Lungs: Clear to auscultation, Normal air movement Cardiovascular: Regular rate, Regular Rhythm Psych/Mental Status: Normal Affect, Appropriate, Alert and oriented to time, place, person, mood and affect Assessment/Plan Active Problems (Last Reviewed 08/10/18 @ 10:08 by Aleja Lutz) 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
[2018-09-19 13:21] VITALS: BP 125/82; BP 127/85; PULSE 81; PULSE 95; RESP 16; RESP 18; TEMP 36.7; TEMP 36.8
--- NOTE | 2018-09-19 13:36 | HBO.PN.PCM_ITS ---
History of Present Illness Date of Service: 09/19/18 Presenting Chief Complaint: Nonhealing ulcer left BKA stump with recent surgical closure 05/25/18 and mild skin graft/flap compromise. JANIE CHIN is a 52 year old currently undergoing hyperbaric oxygen therapy for nonhealing ulcer of left BKA stump with recent surgical closure 05/25/18 and skin graft/flap compromise. Progress: Patient appears to be tolerating hyperbaric oxygen therapy well. Today represents the 50th such session of hyperbaric oxygen therapy. Tolerance of hyperbaric oxygen therapy: Hyperbaric oxygen therapy was administered as per the facility's protocol for 90 minutes at 2.0 SHARDA of 100% oxygen. The patient tolerated hyperbaric oxygen therapy well, without complaints or complications. Upon emergence from the hyperbaric chamber, patient's vital signs remained stable. Patient was discharged in good condition. 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 current use of 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 (Chronic) Patient is on Coumadin for PE Chronic osteomyelitis of left tibia (Chronic) chronic osteomyelitis left tibia at BKA stump 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) Pain of amputation stump of left lower extremity (Chronic) Dermatitis (Chronic) CAD (coronary artery disease) (Chronic) Osteomyelitis of left lower extremity (Chronic) Pain of left anterior lower extremity (Chronic) Amputation, traumatic, leg (Chronic) HTN (hypertension) (Chronic) Hypertension (Chronic) Peripheral arterial disease (Chronic) SVT (supraventricular tachycardia) (Chronic) Hypercoagulable state (Chronic) Wound, surgical, nonhealing (Chronic) Ischemic ulcer of right foot (Chronic) Allergies/Adverse Reactions: Allergies Penicillins Allergy (Verified 08/10/18 10:05) Swelling adhesive tape Adverse Reaction (Verified 08/10/18 10:05) Rash Home Medications: Ambulatory Orders Medication Instructions Recorded Atorvastatin Calcium [Lipitor] 40 mg PO QHS 04/03/18 Carvedilol 12.5 mg PO DAILY 04/03/18 Diazepam [Valium] 5 mg PO 4X/DAY PRN #30 tab 05/30/18 Docusate Sodium [Colace] 100 mg PO BID #60 cap 05/30/18 Iron Polysaccharide Complex 150 mg PO DAILYCM #30 cap 05/30/18 [Ferrex 150] Mupirocin [Bactroban] 1 applic TOPICAL .QDAILY #2 tube 05/30/18 gabapentin 300 mg capsule 1,800 mg PO BID #360 cap 06/28/18 levofloxacin 500 mg tablet 500 mg PO DAILY 07/13/18 sertraline 25 mg tablet 25 mg PO DAILY PRN 07/13/18 apixaban 5 mg tablet 5 mg PO BID #60 tab 08/10/18 metronidazole 500 mg tablet 500 mg PO TID #30 tab 08/19/18 amlodipine 10 mg tablet 10 mg PO DAILY #90 tab 08/23/18 Maternal Family History: Family History (Last Reviewed 08/10/18 @ 10:08 by Aleja Lutz) Other CVA (cerebral vascular accident) Cancer Heart disease Family History: Cancer, Diabetes, Heart Disease, Renal Disease Paternal Family History: Family History (Last Reviewed 08/10/18 @ 10:08 by Aleja Lutz) Other CVA (cerebral vascular accident) Cancer Heart disease Family History: Cancer Smoking Status: Former smoker Physical Exam Vital Signs Temp Pulse Resp BP 98.2 F 95 18 127/85 H 09/19/18 13:21 09/19/18 13:21 09/19/18 13:21 09/19/18 13:21 General: Alert, Oriented x3, Cooperative, No apparent distress HEENT: Atraumatic, TM's Clear Lungs: Clear to auscultation, Normal air movement Cardiovascular: Regular rate, Regular Rhythm Psych/Mental Status: Normal Affect, Appropriate, Alert and oriented to time, place, person, mood and affect Assessment/Plan Active Problems (Last Reviewed 08/10/18 @ 10:08 by Aleja Lutz) 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
[2018-09-20 14:41] VITALS: BP 116/79; PULSE 96; RESP 18; TEMP 36.7
--- NOTE | 2018-09-20 17:08 | HBO.PN.PCM_ITS ---
History of Present Illness Date of Service: 09/20/18 Presenting Chief Complaint: Nonhealing ulcer left BKA stump with recent surgical closure 05/25/18 and mild skin graft/flap compromise. JANIE CHIN is a 52 year old currently undergoing hyperbaric oxygen therapy for nonhealing ulcer of left BKA stump with recent surgical closure 05/25/18 and skin graft/flap compromise. Progress: Patient appears to be tolerating hyperbaric oxygen therapy well. Today represents the 51st such session of hyperbaric oxygen therapy. Tolerance of hyperbaric oxygen therapy: Hyperbaric oxygen therapy was administered as per the facility's protocol for 90 minutes at 2.0 SHARDA of 100% oxygen. The patient tolerated hyperbaric oxygen therapy well, without complaints or complications. Upon emergence from the hyperbaric chamber, patient's vital signs remained stable. Patient was discharged in good condition. 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) Patient is on Coumadin for PE Chronic osteomyelitis of left tibia (Chronic) chronic osteomyelitis left tibia at BKA stump 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) Pain of amputation stump of left lower extremity (Chronic) Dermatitis (Chronic) CAD (coronary artery disease) (Chronic) Osteomyelitis of left lower extremity (Chronic) Pain of left anterior lower extremity (Chronic) Amputation, traumatic, leg (Chronic) HTN (hypertension) (Chronic) Hypertension (Chronic) Peripheral arterial disease (Chronic) SVT (supraventricular tachycardia) (Chronic) Hypercoagulable state (Chronic) Wound, surgical, nonhealing (Chronic) Ischemic ulcer of right foot (Chronic) Allergies/Adverse Reactions: Allergies Penicillins Allergy (Verified 08/10/18 10:05) Swelling adhesive tape Adverse Reaction (Verified 08/10/18 10:05) Rash Home Medications: Ambulatory Orders Medication Instructions Recorded Atorvastatin Calcium [Lipitor] 40 mg PO QHS 04/03/18 Carvedilol 12.5 mg PO DAILY 04/03/18 Diazepam [Valium] 5 mg PO 4X/DAY PRN #30 tab 05/30/18 Docusate Sodium [Colace] 100 mg PO BID #60 cap 05/30/18 Iron Polysaccharide Complex 150 mg PO DAILYCM #30 cap 05/30/18 [Ferrex 150] Mupirocin [Bactroban] 1 applic TOPICAL .QDAILY #2 tube 05/30/18 gabapentin 300 mg capsule 1,800 mg PO BID #360 cap 06/28/18 levofloxacin 500 mg tablet 500 mg PO DAILY 07/13/18 sertraline 25 mg tablet 25 mg PO DAILY PRN 07/13/18 apixaban 5 mg tablet 5 mg PO BID #60 tab 08/10/18 metronidazole 500 mg tablet 500 mg PO TID #30 tab 08/19/18 amlodipine 10 mg tablet 10 mg PO DAILY #90 tab 08/23/18 Maternal Family History: Family History (Last Reviewed 08/10/18 @ 10:08 by Aleja Lutz) Other CVA (cerebral vascular accident) Cancer Heart disease Family History: Cancer, Diabetes, Heart Disease, Renal Disease Paternal Family History: Family History (Last Reviewed 08/10/18 @ 10:08 by Aleja Lutz) Other CVA (cerebral vascular accident) Cancer Heart disease Family History: Cancer Smoking Status: Former smoker Physical Exam Vital Signs Temp Pulse Resp BP 98.1 F 96 18 116/79 09/20/18 14:41 09/20/18 14:41 09/20/18 14:41 09/20/18 14:41 General: Alert, Oriented x3, Cooperative, No apparent distress HEENT: Atraumatic, PERRLA, Normocephalic, TM's Clear Lungs: Clear to auscultation, Normal air movement, No rhonchi, No wheeze, No rales Cardiovascular: Regular rate, Regular Rhythm, Normal S1, Normal S2 Psych/Mental Status: Normal Affect, Appropriate, Alert and oriented to time, place, person, mood and affect Assessment/Plan Active Problems (Last Reviewed 08/10/18 @ 10:08 by Aleja Lutz) 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
[2018-09-24 08:14] VITALS: BP 127/84; PULSE 85; RESP 18; TEMP 36.2; BMI 24.5
[2018-09-24 09:29] VITALS: BP 127/84; BP 130/64; PULSE 72; PULSE 98; RESP 16; RESP 18; TEMP 36.2
--- NOTE | 2018-09-24 17:31 | PCM.WC.PN ---
Type of Wound Date of Service: 09/24/18 Chief Complaint: Nonhealing ulcer left BKA stump with recent surgical closure 05/25/18 and mild skin graft/flap compromise. History of Wound: Surgery 05/25/18 - 1. Surgical preparation left BKA stump with excisional debridement nonhealing infected ulcer. 2. Complex secondary wound closure revision reconstruction with re-advancement muscle flap and bipedicle anterior leg fasciocutaneous advancement flap and STSG from the left flank (60 cm2). Surgery 04/05/18 - 1. Surgical preparation left BKA stump with incision and drainage and excisional debridement nonhealing infected ulcer. 2. Partial ostectomy tibia for osteomyelitis. Wound care - Acetic acid. Operative culture - MRSA. Soft tissue from 04/05/18 surgery - negative. Bone from 04/05/18 surgery - negative. Pathology from 04/05/18 surgery - negative for ostemyelitis. He was discharged on Bactrim DS. He has since finished the Bactrim DS. Initially perioperatively he was on Vancomycin. His Creatinine increased to 1.70 and the Vancomycin was stopped. At discharge his Creatinine had decreased to 1.49. He had Creatinine rechecked on 06/29/18 which was 1.96. Repeat Creatinine on 07/20/18 has decreased to 1.31. He had another wound culture done on 06/18/18 which showed Pseudomonas aeroginosa. He was placed on Levaquin and fininshed them. On 08/06/18, another wound culture was done because of increased odor. It showed Pseudomonas aeroginosa and Anaerobic cocci. He was started on Cipro and Flagyl was added. He has finished them. Prealbumin from 05/26/18 was 17.5. Encourage nutritional supplementation with protein to help the healing process. MRI left BKA stump in 10/13 showed osteomyelitis. He changed his anticoagulation medication and stopped the Coumadin and started Eliquis. Today he denies fever. His appetite is good. With his early compromise to the skin graft/flap, he has started HBO treatments to help salvage the compromised graft/flap and is tolerating them thus far. He has noticed some mild visual blurring early on that has stayed constant. He states he hasn't noticed it worsening. I told him to tell me as soon as he has noticed any worsening of his symptoms, at which time the HBO would be stopped and evaluation by an Tire Recapper would be done. There has been improvement in the healing of the compromised graft/flap but with the recent culture that showed Pseudomonas and anaerobes, he would benefit from continued HBO treatments (another 20), to continue the improved healing and salvage of the compromised graft/flap which would minimize further tissue destruction from the presence of Pseudomonas. Now that the Cipro is finished for the Pseudomonas, I applied for Epifix placental connective tissue graft. It was denied. With the patient's history of previous vascular disease, I ordered a duplex scan. It showed ecrease flow through left iliac through common femoral to profunda. Furher evaluation as needed with CTA to define proximal. Left SFa occluded. Will have him evaluated by Vascular Surgery. Progress of Wound: Surgery 05/25/18 with mild skin graft/flap compromise, improved. - Physical Exam Vital Signs Temp Pulse Resp BP 97.1 F L 98 18 127/84 H 09/24/18 09:29 09/24/18 09:29 09/24/18 09:29 09/24/18 09:29 Wound Measurements and Assessment WC - Nurse 1 - General Ulcer Measurement Start: 08/27/18 08:20 Freq: Status: Active Protocol: Activity Type Activity Date Activity User E-Sign Co-Sign Detail Recorded Client Recorded Date Recorded By Document 09/24/18 08:14 MW [id number] 09/24/18 08:17 MW 09/24/18 08:14 Wound Center Nurse 1 [Ulcer Assessment] #5 L BKA stump -Combined with other wound No -Current Size (cm) - Length 2.4 -Current Size (cm) - Width 5.1 -Current Size (cm) - Depth 0.2 -Total Square Cm 12.24 -Photo Taken No -Epithelialization Small 1-33% -Tunneling No -Undermining/Tunneling No -Circular Undermining No -Exudate Amt Small -Exudate Type Serous -Wound Margin Flat & Intact -Granulation Amt Medium (34-66%) -Granulation Quality [place] -Slough/Fibrin Yes -Necrosis Amt Medium (34-66%) -Necrotic Tissue Type Adherent Slough -Structure Exposed N/A -Texture (Ami-wound Skin Appearance) Assessed Scarring -Moisture (Ami-wound Skin Appearance Assessed ) Dry/Scaly -Color (Ami-wound Skin Appearance) No Abnormality Assessed -Temperature (Ami-wound Skin No Abnormality Appearance) (Pt Warm) -Tenderness on Palpation (Ami-wound No Skin Appearance) -Ulcer Cleansing Rinsed/ Irrigated with Saline -Foul Odor after Cleansing No -Anesthetic Used 4% Lidocaine Solution [Edema Assessment] -Lower Limb Edema Present No WC - Nurse 2 - General Ulcer CM Notes Start: 08/27/18 08:20 Freq: Status: Active Protocol: Activity Type Activity Date Activity User E-Sign Co-Sign Detail Recorded Client Recorded Date Recorded By Document 09/24/18 08:34 [id number] 09/24/18 08:35 09/24/18 08:34 Wound Center Nurse 2 [Procedure/Treatment] #5 L BKA stump -Time 08:35 -Correct Patient Yes -Correct Side, Site, Position Yes -Correct Procedure Yes -Procedure Performed Yes -Type of Procedure Debridement -Clinical Debridement Subcutaneous -Post Debridement Size (cm) - Length 2.5 -Post Debridement Size (cm) - Width 5.1 -Post Debridement Size (cm) - Depth 0.2 -Total Square Cm 12.75 -Wound/Ulcer Outcome Not Healed -Ulcer Cleansing Rinsed/ Irrigated with Saline -Foul Odor after Cleansing No -Bioengineered Tissue No -Bleeding Controlled with Pressure -Offloading No -Treatment Response Procedure Tolerated Well [See Physician Procedure note for Specifics] Pain Scale: 0-10 Numeric [Pain] -Is Patient Pain Free? Yes Debridement Note Post-Debridement Measurements/Treatment WC - Nurse 2 - General Ulcer CM Notes Start: 08/27/18 08:20 Freq: Status: Active Protocol: Activity Type Activity Date Activity User E-Sign Co-Sign Detail Recorded Client Recorded Date Recorded By Document 08/27/18 08:34 [id number] 08/27/18 08:34 JF Document 09/03/18 08:33 JF [id number] 09/03/18 08:38 JF Document 09/10/18 08:53 MW [id number] 09/10/18 08:56 MW Document 09/17/18 08:23 JF [id number] 09/17/18 08:24 JF Document 09/24/18 08:34 JF [id number] 09/24/18 08:35 JF 08/27/18 09/03/18 09/10/18 08:34 08:33 08:53 Wound Center Nurse 2 #5 L BKA stump -Time 08:34 08:34 08:53 -Correct Patient Yes Yes Yes -Correct Side, Site, Position Yes Yes Yes -Correct Procedure Yes Yes Yes -Procedure Performed Yes Yes Yes -Type of Procedure Debridement Debridement Debridement -Clinical Debridement Subcutaneous Subcutaneous Subcutaneous -Post Debridement Size (cm) - Length 3.2 3.5 3.3 -Post Debridement Size (cm) - Width 8 7.6 7.0 -Post Debridement Size (cm) - Depth 0.5 0.2 0.4 -Total Square Cm 25.6 26.60 23.10 -Wound/Ulcer Outcome Not Healed Not Healed Not Healed -Ulcer Cleansing Rinsed/ Rinsed/ Rinsed/ Irrigated with Irrigated with Irrigated with Saline Saline Saline -Foul Odor after Cleansing No No No -Bioengineered Tissue No No No -Bleeding Controlled with Pressure Pressure Pressure -Offloading No No No -Treatment Response Procedure Procedure Procedure Tolerated Well Tolerated Well Tolerated Well Pain Scale: 0-10 Numeric Is Patient Pain Free? Yes Yes Yes 09/17/18 09/24/18 08:23 08:34 Wound Center Nurse 2 #5 L BKA stump -Time 08:23 08:35 -Correct Patient Yes Yes -Correct Side, Site, Position Yes Yes -Correct Procedure Yes Yes -Procedure Performed Yes Yes -Type of Procedure Debridement Debridement -Clinical Debridement Subcutaneous Subcutaneous -Post Debridement Size (cm) - Length 2.6 2.5 -Post Debridement Size (cm) - Width 6.5 5.1 -Post Debridement Size (cm) - Depth 0.4 0.2 -Total Square Cm 16.90 12.75 -Wound/Ulcer Outcome Not Healed Not Healed -Ulcer Cleansing Rinsed/ Rinsed/ Irrigated with Irrigated with Saline Saline -Foul Odor after Cleansing No No -Bioengineered Tissue No No -Bleeding Controlled with Pressure Pressure -Offloading No No -Treatment Response Procedure Procedure Tolerated Well Tolerated Well Pain Scale: 0-10 Numeric Is Patient Pain Free? Yes Yes Wound debrided: #5 Left BKA stump. Laterality: Left Wound Grade/Stage: 4. Type of Debridement: Excisional debridement Anesthesia Used: 4% Lidocaine Solution Depth: Down to and including healthy tissue, in the subcutaneous layer Percentage of wound debrided: 100 Instrument Used: 5mm curette Tissue Removed: subuctaneous tissue. Severity: Fat Layer Exposed Amount of bleeding with debridement: Mild Bleeding Controlled with: Pressure Patient tolerated procedure well Assessment/Plan Assessment: 1. Nonhealing ulcer left BKA stump with recent surgical closure 05/25/18. 2. Pain left BKA stump. 3. MRSA. 4. 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 5. Smoker, he has started again. 6. group home use of anticoagulation. 7. Early skin graft/flap compromise left BKA stump, (20% compromise). 8. s/p surgical preparation left BKA stump with excisional debridement nonhealing infected ulcer and complex secondary wound closure revision reconstruction with re-advancement muscle flap and bipedicle anterior leg fasciocutaneous advancement flap and STSG from the left flank (60 cm2). 9. JUAN (acute kidney injury), probable medication related, resolved. 10. PAD. Plan: Continue Acetic Acid dressing changes. The wound continues to show good improvement with the Acetic Acid dressing and the Cipro antibiotics and the HBO treatments. There was some concern that he would need IV antibiotics for the Pseudomonas since it can be destructive to tissue and he already finished a course of Levaquin. He was placed on Cipro this time since the Levaquin had intermediate sensitivity. He was also started on Flagyl for Anaerobic cocci. Both antibiotics have been completed. Since the wound continues to show improvement with the Acetic Acid dressing, will hold off on IV antibiotics at this time. However will assess at each visit. If his healing worsens, will change to IV antibiotics at that point. That would require admission to the hospital and placement of a PICC line. The skin graft shows good adherence and about 85% take and good vascular ingrowth. There is some mild compromise at the inferior edge of the skin graft (about 15% compromise). The stump is soft and swelling has resolved. The central aspect of the stump anteriorly shows some mild compromise (about 10%). After debridement, the underlying subcutaneous tissue continues to appear viable with no exposure of bone. With the mild skin graft/flap compromise (about 25% total), he started HBO treatments which would help salvage the compromised graft/flap. He is tolerating the HBO treatments thus far. He has noticed some mild visual blurring early on that has stayed constant. He states he hasn't noticed it worsening. I told him to tell me as soon as he has noticed any worsening of his symptoms, at which time the HBO would be stopped and evaluation by an Tire Recapper would be done. There has been improvement in the healing of the compromised graft/flap and with the recent culture that showed Pseudomonas and anaerobes, he would benefit from continued HBO treatments (up to 60 total) as Pseudomonas can be destructive to tissue. Continued wound healing progress can be made with continuation of HBO treatments. Not only are we trying to salvage the compromised graft/flap, we are also trying to salvage the stump itself. Because if HBO treatments are stopped too soon and the tissue destruction continues with the Pseudomonas, the wound is at risk of eroding to the bone which increases the risk of revising the BKA stump to an AKA stump. The AKA necessitates a more complex prosthesis which will prolong rehab in the future. Prealbumin from the hospital was 17.5. Encourage nutritional supplementation with protein to help the healing process. After his last surgery in April, he had been on Vancomycin for a day which was stopped when his Creatinine increased to 1.70. It then decreased down to 1.49 before increasing back up to 1.96 and then most recently decreased back to 1.31 on 07/20/18. Encourage hydration. He has returned to work and is doing ok. Discussed with the patient that the presence of MRSA and Pseudomonas can be destructive to the surrounding tissue leading to suboptimal healing. When the Cipro was completed for the Pseudomonas, we applied for Epifix placental connective tissue graft placement. It was denied. Once again, the patient has been instructed to tell us if his visual blurring worsens during his remaining HBO treatments. Also with the patients history of vascular disease, we checked a duplex scan which showed decrease flow through left iliac through common femoral to profunda. Furher evaluation as needed with CTA to define proximal. Left SFa occluded. Will set him up with a Vascular Surgery evaluation for possible angioplasty to improve blood flow to the stump to maximize healing. Also found out that he has started smoking again. Encouraged him to stop smoking as it may have deleterious effects on wound healing. He is at increased risk of having to revise his BKA into an AKA. He voiced understanding. Renewed his Percocet for pain (30 tabs) and his Valium for spasm (20 tabs). Followup one week.
--- NOTE | 2018-09-25 17:31 | PN.PCM_ITS ---
Type of Wound Date of Service: 09/24/18 Chief Complaint: Nonhealing ulcer left BKA stump with recent surgical closure 05/25/18 and mild skin graft/flap compromise. History of Wound: Surgery 05/25/18 - 1. Surgical preparation left BKA stump with excisional debridement nonhealing infected ulcer. 2. Complex secondary wound closure revision reconstruction with re-advancement muscle flap and bipedicle anterior leg fasciocutaneous advancement flap and STSG from the left flank (60 cm2). Surgery 04/05/18 - 1. Surgical preparation left BKA stump with incision and drainage and excisional debridement nonhealing infected ulcer. 2. Partial ostectomy tibia for osteomyelitis. Wound care - Acetic acid. Operative culture - MRSA. Soft tissue from 04/05/18 surgery - negative. Bone from 04/05/18 surgery - negative. Pathology from 04/05/18 surgery - negative for ostemyelitis. He was discharged on Bactrim DS. He has since finished the Bactrim DS. Initially perioperatively he was on Vancomycin. His Creatinine increased to 1.70 and the Vancomycin was stopped. At discharge his Creatinine had decreased to 1.49. He had Creatinine rechecked on 06/29/18 which was 1.96. Repeat Creatinine on 07/20/18 has decreased to 1.31. He had another wound culture done on 06/18/18 which showed Pseudomonas aeroginosa. He was placed on Levaquin and fininshed them. On 08/06/18, another wound culture was done because of increased odor. It showed Pseudomonas aeroginosa and Anaerobic cocci. He was started on Cipro and Flagyl was added. He has finished them. Prealbumin from 05/26/18 was 17.5. Encourage nutritional supplementation with protein to help the healing process. MRI left BKA stump in 10/13 showed osteomyelitis. He changed his anticoagulation medication and stopped the Coumadin and started Eliquis. Today he denies fever. His appetite is good. With his early compromise to the skin graft/flap, he has started HBO treatments to help salvage the compromised graft/flap and is tolerating them thus far. He has noticed some mild visual blurring early on that has stayed constant. He states he hasn't noticed it worsening. I told him to tell me as soon as he has noticed any worsening of his symptoms, at which time the HBO would be stopped and evaluation by an Clinical Research Management Associate would be done. There has been improvement in the healing of the compromised graft/flap but with the recent culture that showed Pseudomonas and anaerobes, he would benefit from continued HBO treatments (another 20), to continue the improved healing and salvage of the compromised graft/flap which would minimize further tissue destruction from the presence of Pseudomonas. Now that the Cipro is finished for the Pseudomonas, I applied for Epifix placental connective tissue graft. It was denied. With the patient's history of previous vascular disease, I ordered a duplex scan. It showed ecrease flow through left iliac through common femoral to profunda. Furher evaluation as needed with CTA to define proximal. Left SFa occluded. Will have him evaluated by Vascular Surgery. Progress of Wound: Surgery 05/25/18 with mild skin graft/flap compromise, improved. - Physical Exam Vital Signs Temp Pulse Resp BP 97.1 F L 98 18 127/84 H 09/24/18 09:29 09/24/18 09:29 09/24/18 09:29 09/24/18 09:29 Wound Measurements and Assessment WC - Nurse 1 - General Ulcer Measurement Start: 08/27/18 08:20 Freq: Status: Active Protocol: Activity Type Activity Date Activity User E-Sign Co-Sign Detail Recorded Client Recorded Date Recorded By Document 09/24/18 08:14 MW [id number] 09/24/18 08:17 MW 09/24/18 08:14 Wound Center Nurse 1 [Ulcer Assessment] #5 L BKA stump -Combined with other wound No -Current Size (cm) - Length 2.4 -Current Size (cm) - Width 5.1 -Current Size (cm) - Depth 0.2 -Total Square Cm 12.24 -Photo Taken No -Epithelialization Small 1-33% -Tunneling No -Undermining/Tunneling No -Circular Undermining No -Exudate Amt Small -Exudate Type Serous -Wound Margin Flat & Intact -Granulation Amt Medium (34-66%) -Granulation Quality [place]an Gap -Slough/Fibrin Yes -Necrosis Amt Medium (34-66%) -Necrotic Tissue Type Adherent Slough -Structure Exposed N/A -Texture (Ami-wound Skin Appearance) Assessed Scarring -Moisture (Ami-wound Skin Appearance Assessed ) Dry/Scaly -Color (Ami-wound Skin Appearance) No Abnormality Assessed -Temperature (Ami-wound Skin No Abnormality Appearance) (Pt Warm) -Tenderness on Palpation (Ami-wound No Skin Appearance) -Ulcer Cleansing Rinsed/ Irrigated with Saline -Foul Odor after Cleansing No -Anesthetic Used 4% Lidocaine Solution [Edema Assessment] -Lower Limb Edema Present No WC - Nurse 2 - General Ulcer CM Notes Start: 08/27/18 08:20 Freq: Status: Active Protocol: Activity Type Activity Date Activity User E-Sign Co-Sign Detail Recorded Client Recorded Date Recorded By Document 09/24/18 08:34 [id number] 09/24/18 08:35 09/24/18 08:34 Wound Center Nurse 2 [Procedure/Treatment] #5 L BKA stump -Time 08:35 -Correct Patient Yes -Correct Side, Site, Position Yes -Correct Procedure Yes -Procedure Performed Yes -Type of Procedure Debridement -Clinical Debridement Subcutaneous -Post Debridement Size (cm) - Length 2.5 -Post Debridement Size (cm) - Width 5.1 -Post Debridement Size (cm) - Depth 0.2 -Total Square Cm 12.75 -Wound/Ulcer Outcome Not Healed -Ulcer Cleansing Rinsed/ Irrigated with Saline -Foul Odor after Cleansing No -Bioengineered Tissue No -Bleeding Controlled with Pressure -Offloading No -Treatment Response Procedure Tolerated Well [See Physician Procedure note for Specifics] Pain Scale: 0-10 Numeric [Pain] -Is Patient Pain Free? Yes Debridement Note Post-Debridement Measurements/Treatment WC - Nurse 2 - General Ulcer CM Notes Start: 08/27/18 08:20 Freq: Status: Active Protocol: Activity Type Activity Date Activity User E-Sign Co-Sign Detail Recorded Client Recorded Date Recorded By Document 08/27/18 08:34 [id number] 08/27/18 08:34 JF Document 09/03/18 08:33 JF [id number] 09/03/18 08:38 JF Document 09/10/18 08:53 MW [id number] 09/10/18 08:56 MW Document 09/17/18 08:23 JF [id number] 09/17/18 08:24 JF Document 09/24/18 08:34 JF [id number] 09/24/18 08:35 JF 08/27/18 09/03/18 09/10/18 08:34 08:33 08:53 Wound Center Nurse 2 #5 L BKA stump -Time 08:34 08:34 08:53 -Correct Patient Yes Yes Yes -Correct Side, Site, Position Yes Yes Yes -Correct Procedure Yes Yes Yes -Procedure Performed Yes Yes Yes -Type of Procedure Debridement Debridement Debridement -Clinical Debridement Subcutaneous Subcutaneous Subcutaneous -Post Debridement Size (cm) - Length 3.2 3.5 3.3 -Post Debridement Size (cm) - Width 8 7.6 7.0 -Post Debridement Size (cm) - Depth 0.5 0.2 0.4 -Total Square Cm 25.6 26.60 23.10 -Wound/Ulcer Outcome Not Healed Not Healed Not Healed -Ulcer Cleansing Rinsed/ Rinsed/ Rinsed/ Irrigated with Irrigated with Irrigated with Saline Saline Saline -Foul Odor after Cleansing No No No -Bioengineered Tissue No No No -Bleeding Controlled with Pressure Pressure Pressure -Offloading No No No -Treatment Response Procedure Procedure Procedure Tolerated Well Tolerated Well Tolerated Well Pain Scale: 0-10 Numeric Is Patient Pain Free? Yes Yes Yes 09/17/18 09/24/18 08:23 08:34 Wound Center Nurse 2 #5 L BKA stump -Time 08:23 08:35 -Correct Patient Yes Yes -Correct Side, Site, Position Yes Yes -Correct Procedure Yes Yes -Procedure Performed Yes Yes -Type of Procedure Debridement Debridement -Clinical Debridement Subcutaneous Subcutaneous -Post Debridement Size (cm) - Length 2.6 2.5 -Post Debridement Size (cm) - Width 6.5 5.1 -Post Debridement Size (cm) - Depth 0.4 0.2 -Total Square Cm 16.90 12.75 -Wound/Ulcer Outcome Not Healed Not Healed -Ulcer Cleansing Rinsed/ Rinsed/ Irrigated with Irrigated with Saline Saline -Foul Odor after Cleansing No No -Bioengineered Tissue No No -Bleeding Controlled with Pressure Pressure -Offloading No No -Treatment Response Procedure Procedure Tolerated Well Tolerated Well Pain Scale: 0-10 Numeric Is Patient Pain Free? Yes Yes Wound debrided: #5 Left BKA stump. Laterality: Left Wound Grade/Stage: 4. Type of Debridement: Excisional debridement Anesthesia Used: 4% Lidocaine Solution Depth: Down to and including healthy tissue, in the subcutaneous layer Percentage of wound debrided: 100 Instrument Used: 5mm curette Tissue Removed: subuctaneous tissue. Severity: Fat Layer Exposed Amount of bleeding with debridement: Mild Bleeding Controlled with: Pressure Patient tolerated procedure well Assessment/Plan Assessment: 1. Nonhealing ulcer left BKA stump with recent surgical closure 05/25/18. 2. Pain left BKA stump. 3. MRSA. 4. 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 5. Smoker, he has started again. 6. [facility] use of anticoagulation. 7. Early skin graft/flap compromise left BKA stump, (20% compromise). 8. s/p surgical preparation left BKA stump with excisional debridement nonhealing infected ulcer and complex secondary wound closure revision reconstruction with re-advancement muscle flap and bipedicle anterior leg fasciocutaneous advancement flap and STSG from the left flank (60 cm2). 9. JUAN (acute kidney injury), probable medication related, resolved. 10. PAD. Plan: Continue Acetic Acid dressing changes. The wound continues to show good improvement with the Acetic Acid dressing and the Cipro antibiotics and the HBO treatments. There was some concern that he would need IV antibiotics for the Pseudomonas since it can be destructive to tissue and he already finished a course of Levaquin. He was placed on Cipro this time since the Levaquin had intermediate sensitivity. He was also started on Flagyl for Anaerobic cocci. Both antibiotics have been completed. Since the wound continues to show improvement with the Acetic Acid dressing, will hold off on IV antibiotics at this time. However will assess at each visit. If his healing worsens, will change to IV antibiotics at that point. That would require admission to the hospital and placement of a PICC line. The skin graft shows good adherence and about 85% take and good vascular ingrowth. There is some mild compromise at the inferior edge of the skin graft (about 15% compromise). The stump is soft and swelling has resolved. The central aspect of the stump anteriorly shows some mild compromise (about 10%). After debridement, the underlying subcutaneous tissue continues to appear viable with no exposure of bone. With the mild skin graft/flap compromise (about 25% total), he started HBO treatments which would help salvage the compromised graft/flap. He is tolerating the HBO treatments thus far. He has noticed some mild visual blurring early on that has stayed constant. He states he hasn't noticed it worsening. I told him to tell me as soon as he has noticed any worsening of his symptoms, at which time the HBO would be stopped and evaluation by an Clinical Research Management Associate would be done. There has been improvement in the healing of the compromised graft/flap and with the recent culture that showed Pseudomonas and anaerobes, he would benefit from continued HBO treatments (up to 60 total) as Pseudomonas can be destructive to tissue. Continued wound healing progress can be made with continuation of HBO treatments. Not only are we trying to salvage the compromised graft/flap, we are also trying to salvage the stump itself. Because if HBO treatments are stopped too soon and the tissue destruction continues with the Pseudomonas, the wound is at risk of eroding to the bone which increases the risk of revising the BKA stump to an AKA stump. The AKA necessitates a more complex prosthesis which will prolong rehab in the future. Prealbumin from the hospital was 17.5. Encourage nutritional supplementation with protein to help the healing process. After his last surgery in April, he had been on Vancomycin for a day which was stopped when his Creatinine increased to 1.70. It then decreased down to 1.49 before increasing back up to 1.96 and then most recently decreased back to 1.31 on 07/20/18. Encourage hydration. He has returned to work and is doing ok. Discussed with the patient that the presence of MRSA and Pseudomonas can be destructive to the surrounding tissue leading to suboptimal healing. When the Cipro was completed for the Pseudomonas, we applied for Epifix placental c onnective tissue graft placement. It was denied. Once again, the patient has been instructed to tell us if his visual blurring worsens during his remaining HBO treatments. Also with the patients history of vascular disease, we checked a duplex scan which showed decrease flow through left iliac through common femoral to profunda. Furher evaluation as needed with CTA to define proximal. Left SFa occluded. Will set him up with a Vascular Surgery evaluation for possible angioplasty to improve blood flow to the stump to maximize healing. Also found out that he has started smoking again. Encouraged him to stop smoking as it may have deleterious effects on wound healing. He is at increased risk of having to revise his BKA into an AKA. He voiced understanding. Renewed his Percocet for pain (30 tabs) and his Valium for spasm (20 tabs). Followup one week.
--- NOTE | 2018-09-25 17:33 | HBO.PN.PCM_ITS ---
History of Present Illness Date of Service: 09/24/18 Presenting Chief Complaint: Nonhealing ulcer left BKA stump with recent surgical closure 05/25/18 and mild skin graft/flap compromise. JANIE CHIN is a 52 year old currently undergoing hyperbaric oxygen therapy for nonhealing ulcer of left BKA stump with recent surgical closure 05/25/18 and skin graft/flap compromise. Progress: Patient appears to be tolerating hyperbaric oxygen therapy well. Today represents the 52nd such session of hyperbaric oxygen therapy. Tolerance of hyperbaric oxygen therapy: Hyperbaric oxygen therapy was administered as per the facility's protocol. The patient tolerated hyperbaric oxygen therapy well, without complaints or complications. Upon emergence from the hyperbaric chamber, patient's vital signs remained stable. Patient was discharged in good condition. 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) Patient is on Coumadin for PE Chronic osteomyelitis of left tibia (Chronic) chronic osteomyelitis left tibia at BKA stump 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) Pain of amputation stump of left lower extremity (Chronic) Dermatitis (Chronic) CAD (coronary artery disease) (Chronic) Osteomyelitis of left lower extremity (Chronic) Pain of left anterior lower extremity (Chronic) Amputation, traumatic, leg (Chronic) HTN (hypertension) (Chronic) Hypertension (Chronic) Peripheral arterial disease (Chronic) SVT (supraventricular tachycardia) (Chronic) Hypercoagulable state (Chronic) Wound, surgical, nonhealing (Chronic) Ischemic ulcer of right foot (Chronic) Allergies/Adverse Reactions: Allergies Penicillins Allergy (Verified 08/10/18 10:05) Swelling adhesive tape Adverse Reaction (Verified 08/10/18 10:05) Rash Home Medications: Ambulatory Orders Medication Instructions Recorded Atorvastatin Calcium [Lipitor] 40 mg PO QHS 04/03/18 Carvedilol 12.5 mg PO DAILY 04/03/18 Diazepam [Valium] 5 mg PO 4X/DAY PRN #30 tab 05/30/18 Docusate Sodium [Colace] 100 mg PO BID #60 cap 05/30/18 Iron Polysaccharide Complex 150 mg PO DAILYCM #30 cap 05/30/18 [Ferrex 150] Mupirocin [Bactroban] 1 applic TOPICAL .QDAILY #2 tube 05/30/18 gabapentin 300 mg capsule 1,800 mg PO BID #360 cap 06/28/18 levofloxacin 500 mg tablet 500 mg PO DAILY 07/13/18 sertraline 25 mg tablet 25 mg PO DAILY PRN 07/13/18 apixaban 5 mg tablet 5 mg PO BID #60 tab 08/10/18 metronidazole 500 mg tablet 500 mg PO TID #30 tab 08/19/18 amlodipine 10 mg tablet 10 mg PO DAILY #90 tab 08/23/18 Maternal Family History: Family History (Last Reviewed 08/10/18 @ 10:08 by Aleja Lutz) Other CVA (cerebral vascular accident) Cancer Heart disease Family History: Cancer, Diabetes, Heart Disease, Renal Disease Paternal Family History: Family History (Last Reviewed 08/10/18 @ 10:08 by Aleja Lutz) Other CVA (cerebral vascular accident) Cancer Heart disease Family History: Cancer Smoking Status: Former smoker Physical Exam Vital Signs Temp Pulse Resp BP 97.1 F L 98 18 127/84 H 09/24/18 09:29 09/24/18 09:29 09/24/18 09:29 09/24/18 09:29
== END 2018-09-25 23:59 ==
LOC: WC 08:00
PROVIDERS: Family Provider Internal Medicine; PCP Internal Medicine; Visit Provider Surgery
DX: T86.828 Other complications of skin graft (allograft) (autograft) (principal); Y83.8 Other surgical procedures as the cause of abnormal reaction of the patient, or of later complication, without mention of misadventure at the time of the procedure; Z86.14 Personal history of Methicillin resistant Staphylococcus aureus infection; Z89.512 Acquired absence of left leg below knee; Z86.718 Personal history of other venous thrombosis and embolism; Z86.711 Personal history of pulmonary embolism; Z79.01 Long term (current) use of 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s; M86.662 Other chronic osteomyelitis, left tibia and fibula; Z87.891 Personal history of nicotine dependence; T87.81 Dehiscence of amputation stump; I73.9 Peripheral vascular disease, unspecified
CPT/HCPCS: 11042; 11045; 93926; 99183; G0277

== ENCOUNTER 2018-10-23 13:00 | Outpatient (RCR) | payer OTHER, SELFPAY ==
[2018-09-26 01:02] VITALS: BP 130/64; PULSE 72; RESP 16; TEMP 36.2
[2018-09-26 13:05] VITALS: BP 125/80; BP 126/68; PULSE 73; PULSE 95; RESP 16; RESP 18; TEMP 36.2
--- NOTE | 2018-09-26 13:07 | PCM.HBO.PN ---
History of Present Illness Date of Service: 09/26/18 Presenting Chief Complaint: Nonhealing ulcer left BKA stump with recent surgical closure 05/25/18 and mild skin graft/flap compromise. JANIE CHIN is a 53 year old currently undergoing hyperbaric oxygen therapy for Nonhealing ulcer left BKA stump with recent surgical closure 05/25/18 and mild skin graft/flap compromise. Progress: Patient appears to be tolerating hyperbaric oxygen therapy well. Today represents the 53rd such session of hyperbaric oxygen therapy. Tolerance of hyperbaric oxygen therapy: Hyperbaric oxygen therapy was administered as per the facility's protocol for 90 minutes at 2.0 SHARDA of 100% oxygen. The patient tolerated hyperbaric oxygen therapy well, without complaints or complications. Upon emergence from the hyperbaric chamber, patient's vital signs remained stable. Patient was discharged in good condition. 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) Patient is on Coumadin for PE Chronic osteomyelitis of left tibia (Chronic) chronic osteomyelitis left tibia at BKA stump 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) Pain of amputation stump of left lower extremity (Chronic) Dermatitis (Chronic) CAD (coronary artery disease) (Chronic) Osteomyelitis of left lower extremity (Chronic) Pain of left anterior lower extremity (Chronic) Amputation, traumatic, leg (Chronic) HTN (hypertension) (Chronic) Hypertension (Chronic) Peripheral arterial disease (Chronic) SVT (supraventricular tachycardia) (Chronic) Hypercoagulable state (Chronic) Wound, surgical, nonhealing (Chronic) Ischemic ulcer of right foot (Chronic) Allergies/Adverse Reactions: Allergies Penicillins Allergy (Verified 08/10/18 10:05) Swelling adhesive tape Adverse Reaction (Verified 08/10/18 10:05) Rash Home Medications: Ambulatory Orders Medication Instructions Recorded Atorvastatin Calcium [Lipitor] 40 mg PO QHS 04/03/18 Carvedilol 12.5 mg PO DAILY 04/03/18 Diazepam [Valium] 5 mg PO 4X/DAY PRN #30 tab 05/30/18 Docusate Sodium [Colace] 100 mg PO BID #60 cap 05/30/18 Iron Polysaccharide Complex 150 mg PO DAILYCM #30 cap 05/30/18 [Ferrex 150] Mupirocin [Bactroban] 1 applic TOPICAL .QDAILY #2 tube 05/30/18 gabapentin 300 mg capsule 1,800 mg PO BID #360 cap 06/28/18 levofloxacin 500 mg tablet 500 mg PO DAILY 07/13/18 sertraline 25 mg tablet 25 mg PO DAILY PRN 07/13/18 apixaban 5 mg tablet 5 mg PO BID #60 tab 08/10/18 metronidazole 500 mg tablet 500 mg PO TID #30 tab 08/19/18 amlodipine 10 mg tablet 10 mg PO DAILY #90 tab 08/23/18 Maternal Family History: Family History (Last Reviewed 08/10/18 @ 10:08 by Aleja Lutz) Other CVA (cerebral vascular accident) Cancer Heart disease Family History: Cancer, Diabetes, Heart Disease, Renal Disease Paternal Family History: Family History (Last Reviewed 08/10/18 @ 10:08 by Aleja Lutz) Other CVA (cerebral vascular accident) Cancer Heart disease Family History: Cancer Smoking Status: Former smoker Physical Exam Vital Signs Temp Pulse Resp BP 97.1 F L 72 16 130/64 H 09/26/18 01:02 09/26/18 01:02 09/26/18 01:02 09/26/18 01:02 General: Alert, Oriented x3, Cooperative, No apparent distress HEENT: Atraumatic, TM's Clear Lungs: Clear to auscultation, Normal air movement Cardiovascular: Regular rate, Regular Rhythm Psych/Mental Status: Normal Affect, Appropriate, Alert and oriented to time, place, person, mood and affect Assessment/Plan This patient appears to be tolerating hyperbaric oxygen therapy, and it will continue as per the patient's medical plan.
[2018-09-27 13:20] VITALS: BP 114/73; BP 125/80; PULSE 78; PULSE 89; RESP 16; RESP 18; TEMP 36.5; TEMP 36.9
--- NOTE | 2018-09-27 16:48 | HBO.PN.PCM_ITS ---
History of Present Illness Date of Service: 09/27/18 Presenting Chief Complaint: Nonhealing ulcer left BKA stump with recent surgical closure 05/25/18 and mild skin graft/flap compromise. JANIE CHIN is a 53 year old currently undergoing hyperbaric oxygen therapy for Nonhealing ulcer left BKA stump with recent surgical closure 05/25/18 and mild skin graft/flap compromise. Progress: Patient appears to be tolerating hyperbaric oxygen therapy well. Today represents the 54th such session of hyperbaric oxygen therapy. Tolerance of hyperbaric oxygen therapy: Hyperbaric oxygen therapy was administered as per the facility's protocol for 90 minutes at 2.0 SHARDA of 100% oxygen. The patient tolerated hyperbaric oxygen therapy well, without complaints or complications. Upon emergence from the hyperbaric chamber, patient's vital signs remained stable. Patient was discharged in good condition. 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) Patient is on Coumadin for PE Chronic osteomyelitis of left tibia (Chronic) chronic osteomyelitis left tibia at BKA stump 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) Pain of amputation stump of left lower extremity (Chronic) Dermatitis (Chronic) CAD (coronary artery disease) (Chronic) Osteomyelitis of left lower extremity (Chronic) Pain of left anterior lower extremity (Chronic) Amputation, traumatic, leg (Chronic) HTN (hypertension) (Chronic) Hypertension (Chronic) Peripheral arterial disease (Chronic) SVT (supraventricular tachycardia) (Chronic) Hypercoagulable state (Chronic) Wound, surgical, nonhealing (Chronic) Ischemic ulcer of right foot (Chronic) Allergies/Adverse Reactions: Allergies Penicillins Allergy (Verified 08/10/18 10:05) Swelling adhesive tape Adverse Reaction (Verified 08/10/18 10:05) Rash Home Medications: Ambulatory Orders Medication Instructions Recorded Atorvastatin Calcium [Lipitor] 40 mg PO QHS 04/03/18 Carvedilol 12.5 mg PO DAILY 04/03/18 Diazepam [Valium] 5 mg PO 4X/DAY PRN #30 tab 05/30/18 Docusate Sodium [Colace] 100 mg PO BID #60 cap 05/30/18 Iron Polysaccharide Complex 150 mg PO DAILYCM #30 cap 05/30/18 [Ferrex 150] Mupirocin [Bactroban] 1 applic TOPICAL .QDAILY #2 tube 05/30/18 gabapentin 300 mg capsule 1,800 mg PO BID #360 cap 06/28/18 levofloxacin 500 mg tablet 500 mg PO DAILY 07/13/18 sertraline 25 mg tablet 25 mg PO DAILY PRN 07/13/18 apixaban 5 mg tablet 5 mg PO BID #60 tab 08/10/18 metronidazole 500 mg tablet 500 mg PO TID #30 tab 08/19/18 amlodipine 10 mg tablet 10 mg PO DAILY #90 tab 08/23/18 Maternal Family History: Family History (Last Reviewed 08/10/18 @ 10:08 by Aleja Lutz) Other CVA (cerebral vascular accident) Cancer Heart disease Family History: Cancer, Diabetes, Heart Disease, Renal Disease Paternal Family History: Family History (Last Reviewed 08/10/18 @ 10:08 by Aleja Lutz) Other CVA (cerebral vascular accident) Cancer Heart disease Family History: Cancer Smoking Status: Former smoker Physical Exam Vital Signs Temp Pulse Resp BP 98.5 F 89 18 114/73 09/27/18 13:20 09/27/18 13:20 09/27/18 13:20 09/27/18 13:20 General: Alert, Oriented x3, Cooperative, No apparent distress, Well developed HEENT: Atraumatic, PERRLA, Normocephalic, TM's Clear Lungs: Clear to auscultation, Normal air movement Cardiovascular: Regular rate, Regular Rhythm Psych/Mental Status: Normal Affect, Appropriate, Alert and oriented to time, place, person, mood and affect Assessment/Plan This patient appears to be tolerating hyperbaric oxygen therapy, and it will continue as per the patient's medical plan.
[2018-09-28 13:08] VITALS: BP 121/92; BP 137/85; PULSE 79; PULSE 91; RESP 16; RESP 18; TEMP 36.3; TEMP 36.5
--- NOTE | 2018-09-28 18:15 | HBO.PN.PCM_ITS ---
History of Present Illness Date of Service: 09/28/18 Presenting Chief Complaint: Nonhealing ulcer left BKA stump with recent surgical closure 05/25/18 and mild skin graft/flap compromise. JANIE CHIN is a 53 year old currently undergoing hyperbaric oxygen therapy for Nonhealing ulcer left BKA stump with recent surgical closure 05/25/18 and mild skin graft/flap compromise. Progress: Patient appears to be tolerating hyperbaric oxygen therapy well. Today represents the 55th such session of hyperbaric oxygen therapy. Tolerance of hyperbaric oxygen therapy: Hyperbaric oxygen therapy was administered as per the facility's protocol for 90 minutes at 2.0 SHARDA of 100% oxygen. The patient tolerated hyperbaric oxygen therapy well, without complaints or complications. Upon emergence from the hyperbaric chamber, patient's vital signs remained stable. Patient was discharged in good condition. 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) Patient is on Coumadin for PE Chronic osteomyelitis of left tibia (Chronic) chronic osteomyelitis left tibia at BKA stump 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) Pain of amputation stump of left lower extremity (Chronic) Dermatitis (Chronic) CAD (coronary artery disease) (Chronic) Osteomyelitis of left lower extremity (Chronic) Pain of left anterior lower extremity (Chronic) Amputation, traumatic, leg (Chronic) HTN (hypertension) (Chronic) Hypertension (Chronic) Peripheral arterial disease (Chronic) SVT (supraventricular tachycardia) (Chronic) Hypercoagulable state (Chronic) Wound, surgical, nonhealing (Chronic) Ischemic ulcer of right foot (Chronic) Allergies/Adverse Reactions: Allergies Penicillins Allergy (Verified 08/10/18 10:05) Swelling adhesive tape Adverse Reaction (Verified 08/10/18 10:05) Rash Home Medications: Ambulatory Orders Medication Instructions Recorded Atorvastatin Calcium [Lipitor] 40 mg PO QHS 04/03/18 Carvedilol 12.5 mg PO DAILY 04/03/18 Diazepam [Valium] 5 mg PO 4X/DAY PRN #30 tab 05/30/18 Docusate Sodium [Colace] 100 mg PO BID #60 cap 05/30/18 Iron Polysaccharide Complex 150 mg PO DAILYCM #30 cap 05/30/18 [Ferrex 150] Mupirocin [Bactroban] 1 applic TOPICAL .QDAILY #2 tube 05/30/18 gabapentin 300 mg capsule 1,800 mg PO BID #360 cap 06/28/18 levofloxacin 500 mg tablet 500 mg PO DAILY 07/13/18 sertraline 25 mg tablet 25 mg PO DAILY PRN 07/13/18 apixaban 5 mg tablet 5 mg PO BID #60 tab 08/10/18 metronidazole 500 mg tablet 500 mg PO TID #30 tab 08/19/18 amlodipine 10 mg tablet 10 mg PO DAILY #90 tab 08/23/18 Maternal Family History: Family History (Last Reviewed 08/10/18 @ 10:08 by Aleja Lutz) Other CVA (cerebral vascular accident) Cancer Heart disease Family History: Cancer, Diabetes, Heart Disease, Renal Disease Paternal Family History: Family History (Last Reviewed 08/10/18 @ 10:08 by Aleja Lutz) Other CVA (cerebral vascular accident) Cancer Heart disease Family History: Cancer Smoking Status: Former smoker Tobacco Use: Non-smoker Alcohol: None Drugs: None Physical Exam Vital Signs Temp Pulse Resp BP 97.3 F L 91 18 137/85 H 09/28/18 13:08 09/28/18 13:08 09/28/18 13:08 09/28/18 13:08 General: Alert, Oriented x3, Cooperative, No apparent distress HEENT: Atraumatic, Normocephalic Psych/Mental Status: Normal Affect, Appropriate Assessment/Plan Active Problems (Last Reviewed 08/10/18 @ 10:08 by Aleja Lutz) Partial loss of skin graft (Chronic) Personal history of osteomyelitis (Chronic) 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) Chronic osteomyelitis of left tibia (Chronic) chronic osteomyelitis left tibia at BKA stump 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) This patient appears to be tolerating hyperbaric oxygen therapy, and it will continue as per the patient's medical plan.
[2018-10-01 08:12] VITALS: BP 122/73; PULSE 79; RESP 18; TEMP 36.4; BMI 24.5
--- NOTE | 2018-10-01 08:56 | PCM.WC.PN ---
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 Current Visit: Yes Code(s): Z79.01 - senior care (current) use of 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s Comment: Patient is on Coumadin for PE (5) Chronic osteomyelitis of left tibia Status: Chronic Current Visit: Yes Code(s): M86.662 - Other chronic osteomyelitis, left tibia and fibula Comment: chronic osteomyelitis left tibia at BKA stump (6) Pain of left anterior lower extremity Status: Chronic Current Visit: Yes Code(s): M79.605 - Pain in left leg (7) Peripheral arterial disease Status: Chronic Current Visit: Yes Code(s): I73.9 - Peripheral vascular disease, unspecified (8) Tobacco use disorder Status: Chronic Current Visit: Yes Code(s): F17.200 - Nicotine dependence, unspecified, uncomplicated Type of Wound Date of Service: 10/01/18 Chief Complaint: Nonhealing ulcer left BKA stump with recent surgical closure 05/25/18 and mild skin graft/flap compromise. History of Wound: Surgery 05/25/18 - 1. Surgical preparation left BKA stump with excisional debridement nonhealing infected ulcer. 2. Complex secondary wound closure revision reconstruction with re-advancement muscle flap and bipedicle anterior leg fasciocutaneous advancement flap and STSG from the left flank (60 cm2). Surgery 04/05/18 - 1. Surgical preparation left BKA stump with incision and drainage and excisional debridement nonhealing infected ulcer. 2. Partial ostectomy tibia for osteomyelitis. Wound care - Acetic acid. Operative culture - MRSA. Soft tissue from 04/05/18 surgery - negative. Bone from 04/05/18 surgery - negative. Pathology from 04/05/18 surgery - negative for ostemyelitis. He was discharged on Bactrim DS. He has since finished the Bactrim DS. Initially perioperatively he was on Vancomycin. His Creatinine increased to 1.70 and the Vancomycin was stopped. At discharge his Creatinine had decreased to 1.49. He had Creatinine rechecked on 06/29/18 which was 1.96. Repeat Creatinine on 07/20/18 has decreased to 1.31. He had another wound culture done on 06/18/18 which showed Pseudomonas aeroginosa. He was placed on Levaquin and fininshed them. On 08/06/18, another wound culture was done because of increased odor. It showed Pseudomonas aeroginosa and Anaerobic cocci. He was started on Cipro and Flagyl was added. He has finished the Flagyl and will finish the Cipro approximately 09/17/18. Prealbumin from 05/26/18 was 17.5. Encourage nutritional supplementation with protein to help the healing process. MRI left BKA stump in 10/13 showed osteomyelitis. He changed his anticoagulation medication and stopped the Coumadin and started Eliquis. Today he denies fever. His appetite is good. With his early compromise to the skin graft/flap, he has started HBO treatments to help salvage the compromised graft/flap and is tolerating them thus far. He has noticed some mild visual blurring early on that has stayed constant. He states he hasn't noticed it worsening. I told him to tell me as soon as he has noticed any worsening of his symptoms, at which time the HBO would be stopped and evaluation by an Mailing Clerk would be done. There has been improvement in the healing of the compromised graft/flap but with the recent culture that showed Pseudomonas and anaerobes, he would benefit from continued HBO treatments (another 20), to continue the improved healing and salvage of the compromised graft/flap which would minimize further tissue destruction from the presence of Pseudomonas. Progress of Wound: Surgery 05/25/18 with mild skin graft/flap compromise, improved. - Physical Exam Vital Signs Temp Pulse Resp BP 97.5 F L 79 18 122/73 H 10/01/18 08:12 10/01/18 08:12 10/01/18 08:12 10/01/18 08:12 General: Alert, Oriented x3, Cooperative HEENT: Atraumatic Oral: Moist Mucosa Lungs: Normal air movement Cardiovascular: Regular rate Extremities: No edema, Capillary Refill Less than 3 Seconds Skin: Ulcer/ Wound - Left BKA Wound Measurements and Assessment WC - Nurse 1 - General Ulcer Measurement Start: 09/26/18 13:05 Freq: Status: Active Protocol: Activity Type Activity Date Activity User E-Sign Co-Sign Detail Recorded Client Recorded Date Recorded By Document 10/01/18 08:12 LEWIS [id number] 10/01/18 08:16 DL 10/01/18 08:12 Wound Center Nurse 1 [Ulcer Assessment] #5 L BKA stump -Current Size (cm) - Length 3.5 -Current Size (cm) - Width 4 -Current Size (cm) - Depth 0.2 -Total Square Cm 14.0 -Photo Taken No -Exudate Amt Small -Exudate Type Serosanguineous -Wound Margin Thickened -Granulation Amt Large (67-100%) -Granulation Quality Red -Necrosis Amt Small (1-33%) -Necrotic Tissue Type Adherent Slough -Structure Exposed N/A -Texture (Ami-wound Skin Appearance) Scarring -Moisture (Ami-wound Skin Appearance Dry/Scaly ) -Color (Ami-wound Skin Appearance) No Abnormality -Temperature (Ami-wound Skin No Abnormality Appearance) (Pt Warm) -Tenderness on Palpation (Ami-wound No Skin Appearance) -Ulcer Cleansing Wound Cleanser -Foul Odor after Cleansing No -Anesthetic Used 4% Lidocaine Solution WC - Nurse 2 - General Ulcer CM Notes Start: 09/26/18 13:05 Freq: Status: Active Protocol: Activity Type Activity Date Activity User E-Sign Co-Sign Detail Recorded Client Recorded Date Recorded By Document 10/01/18 08:33 FLAVIA [id number] 10/01/18 08:35 FLAVIA 10/01/18 08:33 Wound Center Nurse 2 [Procedure/Treatment] -Time 08:34 -Correct Patient Yes -Correct Side, Site, Position Yes -Correct Procedure Yes -Procedure Performed Yes -Type of Procedure Debridement -Clinical Debridement Subcutaneous -Post Debridement Size (cm) - Length 2.5 -Post Debridement Size (cm) - Width 4.5 -Post Debridement Size (cm) - Depth 0.5 -Total Square Cm 11.25 -Wound/Ulcer Outcome Not Healed -Ulcer Cleansing Rinsed/ Irrigated with Saline -Foul Odor after Cleansing No -Bioengineered Tissue No -Bleeding Controlled with Pressure -Offloading No -Treatment Response Procedure Tolerated Well [See Physician Procedure note for Specifics] Pain Scale: 0-10 Numeric [Pain] -Is Patient Pain Free? Yes Musculoskeletal: Tenderness - Extreme tenderness to left anterior BKA stump wound around the bone. Neurological: Neuro grossly intact Psych/Mental Status: Normal Affect, Appropriate Debridement Note Post-Debridement Measurements/Treatment WC - Nurse 2 - General Ulcer CM Notes Start: 09/26/18 13:05 Freq: Status: Active Protocol: Activity Type Activity Date Activity User E-Sign Co-Sign Detail Recorded Client Recorded Date Recorded By Document 10/01/18 08:33 [id number] 10/01/18 08:35 FLAVIA 10/01/18 08:33 Wound Center Nurse 2 #5 L BKA stump -Time 08:34 -Correct Patient Yes -Correct Side, Site, Position Yes -Correct Procedure Yes -Procedure Performed Yes -Type of Procedure Debridement -Clinical Debridement Subcutaneous -Post Debridement Size (cm) - Length 2.5 -Post Debridement Size (cm) - Width 4.5 -Post Debridement Size (cm) - Depth 0.5 -Total Square Cm 11.25 -Wound/Ulcer Outcome Not Healed -Ulcer Cleansing Rinsed/ Irrigated with Saline -Foul Odor after Cleansing No -Bioengineered Tissue No -Bleeding Controlled with Pressure -Offloading No -Treatment Response Procedure Tolerated Well Pain Scale: 0-10 Numeric Is Patient Pain Free? 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 Nonhealing ulcer left BKA stump with recent surgical closure 05/25/18. 2. Pain left BKA stump. 3. MRSA. 4. 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 5. 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 6. senior care use of anticoagulation. 7. Early skin graft/flap compromise left BKA stump, (20% compromise). 8. s/p surgical preparation left BKA stump with excisional debridement nonhealing infected ulcer and complex secondary wound closure revision reconstruction with re-advancement muscle flap and bipedicle anterior leg fasciocutaneous advancement flap and STSG from the left flank (60 cm2). 9. JUAN (acute kidney injury), probable medication related, resolving. Plan: With the recent culture showing Pseudomonas, the wound care was changed to Acetic Acid. The wound continues to show good improvement with the Acetic Acid dressing and the Cipro antibiotics and the HBO treatments. There was some concern that he would need IV antibiotics for the Pseudomonas since it can be destructive to tissue and he already finished a course of Levaquin. He was placed on Cipro this time since the Levaquin had intermediate sensitivity. He was also started on Flagyl for Anaerobic cocci. Since the wound continues to show improvement with the Acetic Acid dressing, will hold off on IV antibiotics at this time. However will assess at each visit. If his healing worsens, will change to IV antibiotics at that point. That would require admission to the hospital and placement of a PICC line. Since there is good healing and he is done with his antibiotics, we will apply for placement of placental connective tissue graft (Epicord and Epifix). The skin graft shows good adherence and about 85% take and good vascular ingrowth. There is some mild compromise at the inferior edge of the skin graft (about 15% compromise). The stump incision showed some superficial wound separation which is healing satisfactory. The stump is soft and swelling has resolved. The central aspect of the stump anteriorly shows some mild compromise (about 10%). After debridement, the underlying subcutaneous tissue continues to appear viable with no exposure of bone. With the mild skin graft/flap compromise (about 25% total), he started HBO treatments which would help salvage the compromised graft/flap. He is tolerating the HBO treatments thus far. He has noticed some mild visual blurring early on that has stayed constant. He states he hasn't noticed it worsening. I told him to tell me as soon as he has noticed any worsening of his symptoms, at which time the HBO would be stopped and evaluation by an Mailing Clerk would be done. There has been improvement in the healing of the compromised graft/flap and with the recent culture that showed Pseudomonas and anaerobes, he would benefit from continued HBO treatments (20 more treatments) as Pseudomonas can be destructive to tissue. Continued wound healing progress can be made with continuation of HBO treatments. Not only are we trying to salvage the compromised graft/flap, we are also trying to salvage the stump itself. Because if HBO treatments are stopped too soon and the tissue destruction continues with the Pseudomonas, the wound is at risk of eroding to the bone which increases the risk of revising the BKA stump to an AKA stump. The AKA necessitates a more complex prosthesis which will prolong rehab in the future. Prealbumin from the hospital was 17.5. Encourage nutritional supplementation with protein to help the healing process. After his last surgery in April, he had been on Vancomycin for a day which was stopped when his Creatinine increased to 1.70. It then decreased down to 1.49 before increasing back up to 1.96 and then most recently decreased back to 1.31 on 07/20/18. Encourage hydration. He has returned to work and is doing ok. Once again, the patient has been instructed to tell us if his visual blurring worsens during his remaining HBO treatments. His arterial doppler studay on 09/17/18 showed decrease flow left iliac through common femoral to profunda. Left SFa is occluded. Patient has appointment with Dr. Chaparro on 10/17/18. Follow up one week.
[2018-10-01 09:00] VITALS: BP 108/66; BP 127/73; PULSE 71; PULSE 78; RESP 16; RESP 18; TEMP 36.1; TEMP 36.4
--- NOTE | 2018-10-01 09:00 | PN.PCM_ITS ---
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 Current Visit: Yes Code(s): T86.828 - Other complications of skin graft (allograft) (autograft) (2) Methicillin resistant Staphylococcus aureus infection Status: Chronic Current Visit: Yes Code(s): A49.02 - Methicillin resistant Staphylococcus aureus infection, unspecified site (3) Status post below knee amputation of left lower extremity Status: Chronic Current Visit: Yes Code(s): Z89.512 - Acquired absence of left leg below knee (4) emt intermediate current use of 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 Status: Chronic Current Visit: Yes Code(s): Z79.01 - residential (current) use of 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s Comment: Patient is on Coumadin for PE (5) Chronic osteomyelitis of left tibia Status: Chronic Current Visit: Yes Code(s): M86.662 - Other chronic osteomyelitis, left tibia and fibula Comment: chronic osteomyelitis left tibia at BKA stump (6) Pain of left anterior lower extremity Status: Chronic Current Visit: Yes Code(s): M79.605 - Pain in left leg (7) Peripheral arterial disease Status: Chronic Current Visit: Yes Code(s): I73.9 - Peripheral vascular disease, unspecified (8) Tobacco use disorder Status: Chronic Current Visit: Yes Code(s): F17.200 - Nicotine dependence, unspecified, uncomplicated Type of Wound Date of Service: 10/01/18 Chief Complaint: Nonhealing ulcer left BKA stump with recent surgical closure 05/25/18 and mild skin graft/flap compromise. History of Wound: Surgery 05/25/18 - 1. Surgical preparation left BKA stump with excisional debridement nonhealing infected ulcer. 2. Complex secondary wound closure revision reconstruction with re-advancement muscle flap and bipedicle anterior leg fasciocutaneous advancement flap and STSG from the left flank (60 cm2). Surgery 04/05/18 - 1. Surgical preparation left BKA stump with incision and drainage and excisional debridement nonhealing infected ulcer. 2. Partial ostectomy tibia for osteomyelitis. Wound care - Acetic acid. Operative culture - MRSA. Soft tissue from 04/05/18 surgery - negative. Bone from 04/05/18 surgery - negative. Pathology from 04/05/18 surgery - negative for ostemyelitis. He was discharged on Bactrim DS. He has since finished the Bactrim DS. Initially perioperatively he was on Vancomycin. His Creatinine increased to 1.70 and the Vancomycin was stopped. At discharge his Creatinine had decreased to 1.49. He had Creatinine rechecked on 06/29/18 which was 1.96. Repeat Creatinine on 07/20/18 has decreased to 1.31. He had another wound cul ture done on 06/18/18 which showed Pseudomonas aeroginosa. He was placed on Levaquin and fininshed them. On 08/06/18, another wound culture was done because of increased odor. It showed Pseudomonas aeroginosa and Anaerobic cocci. He was started on Cipro and Flagyl was added. He has finished the Flagyl and will finish the Cipro approximately 09/17/18. Prealbumin from 05/26/18 was 17.5. Encourage nutritional supplementation with protein to help the healing process. MRI left BKA stump in 10/13 showed osteomyelitis. He changed his anticoagulation medication and stopped the Coumadin and started Eliquis. Today he denies fever. His appetite is good. With his early compromise to the skin graft/flap, he has started HBO treatments to help salvage the compromised graft/flap and is tolerating them thus far. He has noticed some mild visual blurring early on that has stayed constant. He states he hasn't noticed it worsening. I told him to tell me as soon as he has noticed any worsening of his symptoms, at which time the HBO would be stopped and evaluation by an Multicut Line Operator would be done. There has been improvement in the healing of the compromised graft/flap but with the recent culture that showed Pseudomonas and anaerobes, he would benefit from continued HBO treatments (another 20), to continue the improved healing and salvage of the compromised graft/flap which would minimize further tissue destruction from the presence of Pseudomonas. Progress of Wound: Surgery 05/25/18 with mild skin graft/flap compromise, improved. - Physical Exam Vital Signs Temp Pulse Resp BP 97.5 F L 79 18 122/73 H 10/01/18 08:12 10/01/18 08:12 10/01/18 08:12 10/01/18 08:12 General: Alert, Oriented x3, Cooperative HEENT: Atraumatic Oral: Moist Mucosa Lungs: Normal air movement Cardiovascular: Regular rate Extremities: No edema, Capillary Refill Less than 3 Seconds Skin: Ulcer/ Wound - Left BKA Wound Measurements and Assessment WC - Nurse 1 - General Ulcer Measurement Start: 09/26/18 13:05 Freq: Status: Active Protocol: Activity Type Activity Date Activity User E-Sign Co-Sign Detail Recorded Client Recorded Date Recorded By Document 10/01/18 08:12 LEWIS [id number] 10/01/18 08:16 DL 10/01/18 08:12 Wound Center Nurse 1 [Ulcer Assessment] #5 L BKA stump -Current Size (cm) - Length 3.5 -Current Size (cm) - Width 4 -Current Size (cm) - Depth 0.2 -Total Square Cm 14.0 -Photo Taken No -Exudate Amt Small -Exudate Type Serosanguineous -Wound Margin Thickened -Granulation Amt Large (67-100%) -Granulation Quality Red -Necrosis Amt Small (1-33%) -Necrotic Tissue Type Adherent Slough -Structure Exposed N/A -Texture (Ami-wound Skin Appearance) Scarring -Moisture (Ami-wound Skin Appearance Dry/Scaly ) -Color (Ami-wound Skin Appearance) No Abnormality -Temperature (Ami-wound Skin No Abnormality Appearance) (Pt Warm) -Tenderness on Palpation (Ami-wound No Skin Appearance) -Ulcer Cleansing Wound Cleanser -Foul Odor after Cleansing No -Anesthetic Used 4% Lidocaine Solution - Nurse 2 - General Ulcer CM Notes Start: 09/26/18 13:05 Freq: Status: Active Protocol: Activity Type Activity Date Activity User E-Sign Co-Sign Detail Recorded Client Recorded Date Recorded By Document 10/01/18 08:33 FLAVIA [id number] 10/01/18 08:35 FLAVIA 10/01/18 08:33 Wound Center Nurse 2 [Procedure/Treatment] -Time 08:34 -Correct Patient Yes -Correct Side, Site, Position Yes -Correct Procedure Yes -Procedure Performed Yes -Type of Procedure Debridement -Clinical Debridement Subcutaneous -Post Debridement Size (cm) - Length 2.5 -Post Debridement Size (cm) - Width 4.5 -Post Debridement Size (cm) - Depth 0.5 -Total Square Cm 11.25 -Wound/Ulcer Outcome Not Healed -Ulcer Cleansing Rinsed/ Irrigated with Saline -Foul Odor after Cleansing No -Bioengineered Tissue No -Bleeding Controlled with Pressure -Offloading No -Treatment Response Procedure Tolerated Well [See Physician Procedure note for Specifics] Pain Scale: 0-10 Numeric [Pain] -Is Patient Pain Free? Yes Musculoskeletal: Tenderness - Extreme tenderness to left anterior BKA stump wound around the bone. Neurological: Neuro grossly intact Psych/Mental Status: Normal Affect, Appropriate Debridement Note Post-Debridement Measurements/Treatment WC - Nurse 2 - General Ulcer CM Notes Start: 09/26/18 13:05 Freq: Status: Active Protocol: Activity Type Activity Date Activity User E-Sign Co-Sign Detail Recorded Client Recorded Date Recorded By Document 10/01/18 08:33 [id number] 10/01/18 08:35 FLAVIA 10/01/18 08:33 Wound Center Nurse 2 #5 L BKA stump -Time 08:34 -Correct Patient Yes -Correct Side, Site, Position Yes -Correct Procedure Yes -Procedure Performed Yes -Type of Procedure Debridement -Clinical Debridement Subcutaneous -Post Debridement Size (cm) - Length 2.5 -Post Debridement Size (cm) - Width 4.5 -Post Debridement Size (cm) - Depth 0.5 -Total Square Cm 11.25 -Wound/Ulcer Outcome Not Healed -Ulcer Cleansing Rinsed/ Irrigated with Saline -Foul Odor after Cleansing No -Bioengineered Tissue No -Bleeding Controlled with Pressure -Offloading No -Treatment Response Procedure Tolerated Well Pain Scale: 0-10 Numeric Is Patient Pain Free? Yes Wound debrided: Left BKA Laterality: Left Type of Debridement: Excisional debridement Anesthesia Used: 5% Lidocaine Gel Depth: Down to and including healthy tissue, in the subcutaneous layer Percentage of wound debrided: 100 Instrument Used: 7mm curette Tissue Removed: Subcutaneous tissue and slough Severity: Fat Layer Exposed Amount of bleeding with debridement: Mild Bleeding Controlled with: Pressure Patient tolerated procedure well Assessment/Plan Active Problems (Last Reviewed 08/10/18 @ 10:08 by Aleja Lutz) Tobacco use disorder (Chronic) Partial loss of skin graft (Chronic) Methicillin resistant Staphylococcus aureus infection (Chronic) 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) emt intermediate current use of 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 (Chronic) Patient is on Coumadin for PE Chronic osteomyelitis of left tibia (Chronic) chronic osteomyelitis left tibia at BKA stump Pain of left anterior lower extremity (Chronic) Peripheral arterial disease (Chronic) Assessment: 1. Nonhealing ulcer left BKA stump with recent surgical closure 05/25/18. 2. Pain left BKA stump. 3. MRSA. 4. 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 5. 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 6. residential use of anticoagulation. 7. Early skin graft/flap compromise left BKA stump, (20% compromise). 8. s/p surgical preparation left BKA stump with excisional debridement nonhealing infected ulcer and complex secondary wound closure revision reconstruction with re-advancement muscle flap and bipedicle anterior leg fasciocutaneous advancement flap and STSG from the left flank (60 cm2). 9. JUAN (acute kidney injury), probable medication related, resolving. Plan: With the recent culture showing Pseudomonas, the wound care was changed to Acetic Acid. The wound continues to show good improvement with the Acetic Acid dressing and the Cipro antibiotics and the HBO treatments. There was some concern that he would need IV antibiotics for the Pseudomonas since it can be destructive to tissue and he already finished a course of Levaquin. He was placed on Cipro this time since the Levaquin had intermediate sensitivity. He was also started on Flagyl for Anaerobic cocci. Since the wound continues to show improvement with the Acetic Acid dressing, will hold off on IV antibiotics at this time. However will assess at each visit. If his healing worsens, will change to IV antibiotics at that point. That would require admission to the hospital and placement of a PICC line. Since there is good healing and he is done with his antibiotics, we will apply for placement of placental connective tissue graft (Epicord and Epifix). The skin graft shows good adherence and about 85% take and good vascular ingrowth. There is some mild compromise at the inferior edge of the skin graft (about 15% compromise). The stump incision showed some superficial wound separation which is healing satisfactory. The stump is soft and swelling has resolved. The central aspect of the stump anteriorly shows some mild compromise (about 10%). After debridement, the underlying subcutaneous tissue continues to appear viable with no exposure of bone. With the mild skin graft/flap compromise (about 25% total), he started HBO treatments which would help salvage the compromised graft/flap. He is tolerating the HBO treatments thus far. He has noticed some mild visual blurring early on that has stayed constant. He states he hasn't noticed it worsening. I told him to tell me as soon as he has noticed any worsening of his symptoms, at which time the HBO would be stopped and evaluation by an Multicut Line Operator would be done. There has been improvement in the healing of the compromised graft/flap and with the recent culture that showed Pseudomonas and anaerobes, he would benefit from continued HBO treatments (20 more treatments) as Pseudomonas can be destructive to tissue. Continued wound healing progress can be made with continuation of HBO treatments. Not only are we trying to salvage the compromised graft/flap, we are also trying to salvage the stump itself. Because if HBO treatments are stopped too soon and the tissue destruction continues with the Pseudomonas, the wound is at risk of eroding to the bone which increases the risk of revising the BKA stump to an AKA stump. The AKA necessitates a more complex prosthesis which will prolong rehab in the future. Prealbumin from the hospital was 17.5. Encourage nutritional supplementation with protein to help the healing process. After his last surgery in April, he had been on Vancomycin for a day which was stopped when his Creatinine increased to 1.70. It then decreased down to 1.49 before increasing back up to 1.96 and then most recently decreased back to 1.31 on 07/20/18. Encourage hydration. He has returned to work and is doing ok. Once again, the patient has been instructed to tell us if his visual blurring worsens during his remaining HBO treatments. His arterial doppler studay on 09/17/18 showed decrease flow left iliac through common femoral to profunda. Left SFa is occluded. Patient has appointment with Dr. Chaparro on 10/17/18. Follow up one week.
--- NOTE | 2018-10-01 10:16 | PCM.HBO.PN ---
History of Present Illness Date of Service: 10/01/18 Presenting Chief Complaint: Nonhealing ulcer left BKA stump with recent surgical closure 05/25/18 and mild skin graft/flap compromise. JANIE CHIN is a 53 year old currently undergoing hyperbaric oxygen therapy for Nonhealing ulcer left BKA stump with recent surgical closure 05/25/18 and mild skin graft/flap compromise. Progress: Patient appears to be tolerating hyperbaric oxygen therapy well. Today represents the 56th such session of hyperbaric oxygen therapy. Tolerance of hyperbaric oxygen therapy: Hyperbaric oxygen therapy was administered as per the facility's protocol for 90 minutes at 2.0 SHARDA of 100% oxygen. The patient tolerated hyperbaric oxygen therapy well, without complaints or complications. Upon emergence from the hyperbaric chamber, patient's vital signs remained stable. Patient was discharged in good condition. 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) Patient is on Coumadin for PE Chronic osteomyelitis of left tibia (Chronic) chronic osteomyelitis left tibia at BKA stump 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) Pain of amputation stump of left lower extremity (Chronic) Dermatitis (Chronic) CAD (coronary artery disease) (Chronic) Osteomyelitis of left lower extremity (Chronic) Pain of left anterior lower extremity (Chronic) Amputation, traumatic, leg (Chronic) HTN (hypertension) (Chronic) Hypertension (Chronic) Peripheral arterial disease (Chronic) SVT (supraventricular tachycardia) (Chronic) Hypercoagulable state (Chronic) Wound, surgical, nonhealing (Chronic) Ischemic ulcer of right foot (Chronic) Allergies/Adverse Reactions: Allergies Penicillins Allergy (Verified 08/10/18 10:05) Swelling adhesive tape Adverse Reaction (Verified 08/10/18 10:05) Rash Home Medications: Ambulatory Orders Medication Instructions Recorded Atorvastatin Calcium [Lipitor] 40 mg PO QHS 04/03/18 Carvedilol 12.5 mg PO DAILY 04/03/18 Diazepam [Valium] 5 mg PO 4X/DAY PRN #30 tab 05/30/18 Docusate Sodium [Colace] 100 mg PO BID #60 cap 05/30/18 Iron Polysaccharide Complex 150 mg PO DAILYCM #30 cap 05/30/18 [Ferrex 150] Mupirocin [Bactroban] 1 applic TOPICAL .QDAILY #2 tube 05/30/18 gabapentin 300 mg capsule 1,800 mg PO BID #360 cap 06/28/18 levofloxacin 500 mg tablet 500 mg PO DAILY 07/13/18 sertraline 25 mg tablet 25 mg PO DAILY PRN 07/13/18 apixaban 5 mg tablet 5 mg PO BID #60 tab 08/10/18 metronidazole 500 mg tablet 500 mg PO TID #30 tab 08/19/18 amlodipine 10 mg tablet 10 mg PO DAILY #90 tab 08/23/18 Maternal Family History: Family History (Last Reviewed 08/10/18 @ 10:08 by Aleja Lutz) Other CVA (cerebral vascular accident) Cancer Heart disease Family History: Cancer, Diabetes, Heart Disease, Renal Disease Paternal Family History: Family History (Last Reviewed 08/10/18 @ 10:08 by Aleja Lutz) Other CVA (cerebral vascular accident) Cancer Heart disease Family History: Cancer Smoking Status: Former smoker Tobacco Use: Non-smoker Alcohol: None Drugs: None Physical Exam Vital Signs Temp Pulse Resp BP 97.6 F L 78 18 108/66 10/01/18 09:00 10/01/18 09:00 10/01/18 09:00 10/01/18 09:00 General: Alert, Oriented x3, Cooperative, No apparent distress HEENT: Atraumatic, TM's Clear Lungs: Clear to auscultation, Normal air movement Cardiovascular: Regular rate, Regular Rhythm Psych/Mental Status: Normal Affect, Appropriate, Alert and oriented to time, place, person, mood and affect Assessment/Plan Active Problems (Last Reviewed 08/10/18 @ 10:08 by Aleja Lutz) Tobacco use disorder (Acute) This patient appears to be tolerating hyperbaric oxygen therapy, and it will continue as per the patient's medical plan.
[2018-10-02 13:33] VITALS: BP 124/82; BP 128/85; PULSE 109; PULSE 77; RESP 16; RESP 18; TEMP 36.3; TEMP 36.7
--- NOTE | 2018-10-02 16:01 | PCM.HBO.PN ---
History of Present Illness Date of Service: 10/02/18 Presenting Chief Complaint: Nonhealing ulcer left BKA stump with recent surgical closure 05/25/18 and mild skin graft/flap compromise. JANIE CHIN is a 53 year old currently undergoing hyperbaric oxygen therapy for Nonhealing ulcer left BKA stump with recent surgical closure 05/25/18 and mild skin graft/flap compromise. Progress: Patient appears to be tolerating hyperbaric oxygen therapy well. Today represents the 57th such session of hyperbaric oxygen therapy. Tolerance of hyperbaric oxygen therapy: Hyperbaric oxygen therapy was administered as per the facility's protocol for 90 minutes at 2.0 SHARDA of 100% oxygen. The patient tolerated hyperbaric oxygen therapy well, without complaints or complications. Upon emergence from the hyperbaric chamber, patient's vital signs remained stable. Patient was discharged in good condition. 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) Patient is on Coumadin for PE Chronic osteomyelitis of left tibia (Chronic) chronic osteomyelitis left tibia at BKA stump 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) Pain of amputation stump of left lower extremity (Chronic) Dermatitis (Chronic) CAD (coronary artery disease) (Chronic) Osteomyelitis of left lower extremity (Chronic) Pain of left anterior lower extremity (Chronic) Amputation, traumatic, leg (Chronic) HTN (hypertension) (Chronic) Hypertension (Chronic) Peripheral arterial disease (Chronic) SVT (supraventricular tachycardia) (Chronic) Hypercoagulable state (Chronic) Wound, surgical, nonhealing (Chronic) Ischemic ulcer of right foot (Chronic) Allergies/Adverse Reactions: Allergies Penicillins Allergy (Verified 08/10/18 10:05) Swelling adhesive tape Adverse Reaction (Verified 08/10/18 10:05) Rash Home Medications: Ambulatory Orders Medication Instructions Recorded Atorvastatin Calcium [Lipitor] 40 mg PO QHS 04/03/18 Carvedilol 12.5 mg PO DAILY 04/03/18 Diazepam [Valium] 5 mg PO 4X/DAY PRN #30 tab 05/30/18 Docusate Sodium [Colace] 100 mg PO BID #60 cap 05/30/18 Iron Polysaccharide Complex 150 mg PO DAILYCM #30 cap 05/30/18 [Ferrex 150] Mupirocin [Bactroban] 1 applic TOPICAL .QDAILY #2 tube 05/30/18 gabapentin 300 mg capsule 1,800 mg PO BID #360 cap 06/28/18 levofloxacin 500 mg tablet 500 mg PO DAILY 07/13/18 sertraline 25 mg tablet 25 mg PO DAILY PRN 07/13/18 apixaban 5 mg tablet 5 mg PO BID #60 tab 08/10/18 metronidazole 500 mg tablet 500 mg PO TID #30 tab 08/19/18 amlodipine 10 mg tablet 10 mg PO DAILY #90 tab 08/23/18 Maternal Family History: Family History (Last Reviewed 08/10/18 @ 10:08 by Aleja Lutz) Other CVA (cerebral vascular accident) Cancer Heart disease Family History: Cancer, Diabetes, Heart Disease, Renal Disease Paternal Family History: Family History (Last Reviewed 08/10/18 @ 10:08 by Aleja Lutz) Other CVA (cerebral vascular accident) Cancer Heart disease Family History: Cancer Smoking Status: Former smoker Tobacco Use: Non-smoker Alcohol: None Drugs: None Physical Exam Vital Signs Temp Pulse Resp BP 97.4 F L 109 H 18 128/85 H 10/02/18 13:33 10/02/18 13:33 10/02/18 13:33 10/02/18 13:33 General: Alert, Oriented x3, Cooperative HEENT: Atraumatic, PERRLA, TM's Clear Lungs: Clear to auscultation, Normal air movement Cardiovascular: Regular rate Psych/Mental Status: Normal Affect, Appropriate Assessment/Plan Active Problems (Last Reviewed 08/10/18 @ 10:08 by Aleja Lutz) Tobacco use disorder (Acute) This patient appears to be tolerating hyperbaric oxygen therapy, and it will continue as per the patient's medical plan. Code Visit [id number]
[2018-10-03 08:47] VITALS: BP 112/77; BP 123/78; PULSE 66; PULSE 85; RESP 16; RESP 18; TEMP 36.2; TEMP 36.4
--- NOTE | 2018-10-03 08:52 | HBO.PN.PCM_ITS ---
History of Present Illness Presenting Chief Complaint: Nonhealing ulcer left BKA stump with recent surgical closure 05/25/18 and mild skin graft/flap compromise. JANIE CHIN is a 53 year old currently undergoing hyperbaric oxygen therapy for Nonhealing ulcer left BKA stump with recent surgical closure 05/25/18 and mild skin graft/flap compromise. Progress: Patient appears to be tolerating hyperbaric oxygen therapy well. Today represents the 58th such session of hyperbaric oxygen therapy. Tolerance of hyperbaric oxygen therapy: Hyperbaric oxygen therapy was administered as per the facility's protocol for 90 minutes at 2.0 SHARDA of 100% oxygen. The patient tolerated hyperbaric oxygen therapy well, without complaints or complications. Upon emergence from the hyperbaric chamber, patient's vital signs remained stable. Patient was discharged in good condition. 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) Patient is on Coumadin for PE Chronic osteomyelitis of left tibia (Chronic) chronic osteomyelitis left tibia at BKA stump 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) Pain of amputation stump of left lower extremity (Chronic) Dermatitis (Chronic) CAD (coronary artery disease) (Chronic) Osteomyelitis of left lower extremity (Chronic) Pain of left anterior lower extremity (Chronic) Amputation, traumatic, leg (Chronic) HTN (hypertension) (Chronic) Hypertension (Chronic) Peripheral arterial disease (Chronic) SVT (supraventricular tachycardia) (Chronic) Hypercoagulable state (Chronic) Wound, surgical, nonhealing (Chronic) Ischemic ulcer of right foot (Chronic) Allergies/Adverse Reactions: Allergies Penicillins Allergy (Verified 08/10/18 10:05) Swelling adhesive tape Adverse Reaction (Verified 08/10/18 10:05) Rash Home Medications: Ambulatory Orders Medication Instructions Recorded Atorvastatin Calcium [Lipitor] 40 mg PO QHS 04/03/18 Carvedilol 12.5 mg PO DAILY 04/03/18 Diazepam [Valium] 5 mg PO 4X/DAY PRN #30 tab 05/30/18 Docusate Sodium [Colace] 100 mg PO BID #60 cap 05/30/18 Iron Polysaccharide Complex 150 mg PO DAILYCM #30 cap 05/30/18 [Ferrex 150] Mupirocin [Bactroban] 1 applic TOPICAL .QDAILY #2 tube 05/30/18 gabapentin 300 mg capsule 1,800 mg PO BID #360 cap 06/28/18 levofloxacin 500 mg tablet 500 mg PO DAILY 07/13/18 sertraline 25 mg tablet 25 mg PO DAILY PRN 07/13/18 apixaban 5 mg tablet 5 mg PO BID #60 tab 08/10/18 metronidazole 500 mg tablet 500 mg PO TID #30 tab 08/19/18 amlodipine 10 mg tablet 10 mg PO DAILY #90 tab 08/23/18 Maternal Family History: Family History (Last Reviewed 08/10/18 @ 10:08 by Aleja Lutz) Other CVA (cerebral vascular accident) Cancer Heart disease Family History: Cancer, Diabetes, Heart Disease, Renal Disease Paternal Family History: Family History (Last Reviewed 08/10/18 @ 10:08 by Aleja Lutz) Other CVA (cerebral vascular accident) Cancer Heart disease Family History: Cancer Smoking Status: Former smoker Tobacco Use: Non-smoker Alcohol: None Drugs: None Physical Exam Vital Signs Temp Pulse Resp BP 97.4 F L 109 H 18 128/85 H 10/02/18 13:33 10/02/18 13:33 10/02/18 13:33 10/02/18 13:33 General: Alert, Oriented x3, Cooperative, No apparent distress HEENT: Atraumatic, Normocephalic Lungs: Normal air movement Cardiovascular: Regular rate, Regular Rhythm Psych/Mental Status: Normal Affect Assessment/Plan Active Problems (Last Reviewed 08/10/18 @ 10:08 by Aleja Lutz) Tobacco use disorder (Chronic) 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
[2018-10-04 13:30] VITALS: BP 111/70; BP 123/73; PULSE 70; PULSE 83; RESP 16; RESP 18; TEMP 36.3; TEMP 36.6
--- NOTE | 2018-10-04 17:36 | PCM.HBO.PN ---
History of Present Illness Date of Service: 10/04/18 Presenting Chief Complaint: Nonhealing ulcer left BKA stump with recent surgical closure 05/25/18 and mild skin graft/flap compromise. JANIE CHIN is a 53 year old currently undergoing hyperbaric oxygen therapy for Nonhealing ulcer left BKA stump with recent surgical closure 05/25/18 and mild skin graft/flap compromise. Progress: Patient appears to be tolerating hyperbaric oxygen therapy well. Today represents the 59th such session of hyperbaric oxygen therapy. Tolerance of hyperbaric oxygen therapy: Hyperbaric oxygen therapy was administered as per the facility's protocol for 90 minutes at 2.0 SHARDA of 100% oxygen. The patient tolerated hyperbaric oxygen therapy well, without complaints or complications. Upon emergence from the hyperbaric chamber, patient's vital signs remained stable. Patient was discharged in good condition. 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) Patient is on Coumadin for PE Chronic osteomyelitis of left tibia (Chronic) chronic osteomyelitis left tibia at BKA stump 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) Pain of amputation stump of left lower extremity (Chronic) Dermatitis (Chronic) CAD (coronary artery disease) (Chronic) Osteomyelitis of left lower extremity (Chronic) Pain of left anterior lower extremity (Chronic) Amputation, traumatic, leg (Chronic) HTN (hypertension) (Chronic) Hypertension (Chronic) Peripheral arterial disease (Chronic) SVT (supraventricular tachycardia) (Chronic) Hypercoagulable state (Chronic) Wound, surgical, nonhealing (Chronic) Ischemic ulcer of right foot (Chronic) Allergies/Adverse Reactions: Allergies Penicillins Allergy (Verified 08/10/18 10:05) Swelling adhesive tape Adverse Reaction (Verified 08/10/18 10:05) Rash Home Medications: Ambulatory Orders Medication Instructions Recorded Atorvastatin Calcium [Lipitor] 40 mg PO QHS 04/03/18 Carvedilol 12.5 mg PO DAILY 04/03/18 Diazepam [Valium] 5 mg PO 4X/DAY PRN #30 tab 05/30/18 Docusate Sodium [Colace] 100 mg PO BID #60 cap 05/30/18 Iron Polysaccharide Complex 150 mg PO DAILYCM #30 cap 05/30/18 [Ferrex 150] Mupirocin [Bactroban] 1 applic TOPICAL .QDAILY #2 tube 05/30/18 gabapentin 300 mg capsule 1,800 mg PO BID #360 cap 06/28/18 levofloxacin 500 mg tablet 500 mg PO DAILY 07/13/18 sertraline 25 mg tablet 25 mg PO DAILY PRN 07/13/18 apixaban 5 mg tablet 5 mg PO BID #60 tab 08/10/18 metronidazole 500 mg tablet 500 mg PO TID #30 tab 08/19/18 amlodipine 10 mg tablet 10 mg PO DAILY #90 tab 08/23/18 Maternal Family History: Family History (Last Reviewed 08/10/18 @ 10:08 by Aleja Lutz) Other CVA (cerebral vascular accident) Cancer Heart disease Family History: Cancer, Diabetes, Heart Disease, Renal Disease Paternal Family History: Family History (Last Reviewed 08/10/18 @ 10:08 by Aleja Lutz) Other CVA (cerebral vascular accident) Cancer Heart disease Family History: Cancer Smoking Status: Former smoker Tobacco Use: Non-smoker Alcohol: None Drugs: None Physical Exam Vital Signs Temp Pulse Resp BP 97.8 F 83 18 111/70 10/04/18 13:30 10/04/18 13:30 10/04/18 13:30 10/04/18 13:30 General: Alert, Oriented x3, Cooperative, No apparent distress HEENT: Atraumatic, Normocephalic, TM's Clear Lungs: Clear to auscultation, Normal air movement, No rhonchi, No wheeze, No rales Cardiovascular: Regular rate, Regular Rhythm, Normal S1, Normal S2, No murmurs Psych/Mental Status: Normal Affect, Appropriate, Alert and oriented to time, place, person, mood and affect Assessment/Plan Active Problems (Last Reviewed 08/10/18 @ 10:08 by Aelja Lutz) Tobacco use disorder (Chronic) 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
[2018-10-05 12:55] VITALS: BP 105/71; BP 130/78; PULSE 72; PULSE 87; RESP 16; RESP 18; TEMP 36.3; TEMP 36.4
--- NOTE | 2018-10-05 16:46 | HBO.PN.PCM_ITS ---
History of Present Illness Date of Service: 10/05/18 Presenting Chief Complaint: Nonhealing ulcer left BKA stump with recent surgical closure 05/25/18 and mild skin graft/flap compromise. JANIE CHIN is a 53 year old currently undergoing hyperbaric oxygen therapy for Nonhealing ulcer left BKA stump with recent surgical closure 05/25/18 and mild skin graft/flap compromise. Progress: Patient appears to be tolerating hyperbaric oxygen therapy well. Today represents the 60th such session of hyperbaric oxygen therapy. Tolerance of hyperbaric oxygen therapy: Hyperbaric oxygen therapy was administered as per the facility's protocol for 90 minutes at 2.0 SHARDA of 100% oxygen. The patient tolerated hyperbaric oxygen therapy well, without complaints or complications. Upon emergence from the hyperbaric chamber, patient's vital signs remained stable. Patient was discharged in good condition. 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 (Chronic) Patient is on Coumadin for PE Chronic osteomyelitis of left tibia (Chronic) chronic osteomyelitis left tibia at BKA stump 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) Pain of amputation stump of left lower extremity (Chronic) Dermatitis (Chronic) CAD (coronary artery disease) (Chronic) Osteomyelitis of left lower extremity (Chronic) Pain of left anterior lower extremity (Chronic) Amputation, traumatic, leg (Chronic) HTN (hypertension) (Chronic) Hypertension (Chronic) Peripheral arterial disease (Chronic) SVT (supraventricular tachycardia) (Chronic) Hypercoagulable state (Chronic) Wound, surgical, nonhealing (Chronic) Ischemic ulcer of right foot (Chronic) Allergies/Adverse Reactions: Allergies Penicillins Allergy (Verified 08/10/18 10:05) Swelling adhesive tape Adverse Reaction (Verified 08/10/18 10:05) Rash Home Medications: Ambulatory Orders Medication Instructions Recorded Atorvastatin Calcium [Lipitor] 40 mg PO QHS 04/03/18 Carvedilol 12.5 mg PO DAILY 04/03/18 Diazepam [Valium] 5 mg PO 4X/DAY PRN #30 tab 05/30/18 Docusate Sodium [Colace] 100 mg PO BID #60 cap 05/30/18 Iron Polysaccharide Complex 150 mg PO DAILYCM #30 cap 05/30/18 [Ferrex 150] Mupirocin [Bactroban] 1 applic TOPICAL .QDAILY #2 tube 05/30/18 gabapentin 300 mg capsule 1,800 mg PO BID #360 cap 06/28/18 levofloxacin 500 mg tablet 500 mg PO DAILY 07/13/18 sertraline 25 mg tablet 25 mg PO DAILY PRN 07/13/18 apixaban 5 mg tablet 5 mg PO BID #60 tab 08/10/18 metronidazole 500 mg tablet 500 mg PO TID #30 tab 08/19/18 amlodipine 10 mg tablet 10 mg PO DAILY #90 tab 08/23/18 Maternal Family History: Family History (Last Reviewed 08/10/18 @ 10:08 by Aleja Lutz) Other CVA (cerebral vascular accident) Cancer Heart disease Family History: Cancer, Diabetes, Heart Disease, Renal Disease Paternal Family History: Family History (Last Reviewed 08/10/18 @ 10:08 by Aleja Lutz) Other CVA (cerebral vascular accident) Cancer Heart disease Family History: Cancer Smoking Status: Former smoker Tobacco Use: Non-smoker Alcohol: None Drugs: None Physical Exam Vital Signs Temp Pulse Resp BP 97.6 F L 87 18 130/78 H 10/05/18 12:55 10/05/18 12:55 10/05/18 12:55 10/05/18 12:55 General: Alert, Oriented x3, Cooperative, No apparent distress Psych/Mental Status: Normal Affect, Appropriate Assessment/Plan Active Problems (Last Reviewed 08/10/18 @ 10:08 by Aleja Lutz) Tobacco use disorder (Chronic) 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
[2018-10-08 08:06] VITALS: BP 132/79; PULSE 78; RESP 18; TEMP 36.6; BMI 24.5
--- NOTE | 2018-10-08 12:45 | PN.PCM_ITS ---
Type of Wound Date of Service: 10/08/18 Chief Complaint: Nonhealing ulcer left BKA stump with recent surgical closure 05/25/18 and mild skin graft/flap compromise. History of Wound: Surgery 05/25/18 - 1. Surgical preparation left BKA stump with excisional debridement nonhealing infected ulcer. 2. Complex secondary wound closure revision reconstruction with re-advancement muscle flap and bipedicle anterior leg fasciocutaneous advancement flap and STSG from the left flank (60 cm2). Surgery 04/05/18 - 1. Surgical preparation left BKA stump with incision and drainage and excisional debridement nonhealing infected ulcer. 2. Partial ostectomy tibia for osteomyelitis. Wound care - Acetic acid. Operative culture - MRSA. Soft tissue from 04/05/18 surgery - negative. Bone from 04/05/18 surgery - negative. Pathology from 04/05/18 surgery - negative for ostemyelitis. He was discharged on Bactrim DS. He has since finished the Bactrim DS. Initially perioperatively he was on Vancomycin. His Creatinine increased to 1.70 and the Vancomycin was stopped. At discharge his Creatinine had decreased to 1.49. He had Creatinine rechecked on 06/29/18 which was 1.96. Repeat Creatinine on 07/20/18 has decreased to 1.31. He had another wound culture done on 06/18/18 which showed Pseudomonas aeroginosa. He was placed on Levaquin and fininshed them. On 08/06/18, another wound culture was done because of increased odor. It showed Pseudomonas aeroginosa and Anaerobic cocci. He was started on Cipro and Flagyl was added. He has finished them. Prealbumin from 05/26/18 was 17.5. Encourage nutritional supplementation with protein to help the healing process. MRI left BKA stump in 10/13 showed osteomyelitis. He changed his anticoagulation medication and stopped the Coumadin and started Eliquis. Today he denies fever. His appetite is good. With his early compromise to the skin graft/flap, he underwent HBO treatments to help salvage the compromised graft/flap and has finished them. He has noticed some mild visual blurring early on that has stayed constant. He states he hasn't noticed it worsening. I told him to tell me as soon as he has noticed any worsening of his symptoms, an evaluation by an [employer] would be done. Now that the Cipro was finished for the Pseudomonas, I applied for Epifix placental connective tissue graft. It was denied. With the patient's history of previous vascular disease, I ordered a duplex scan. It showed decreased flow through left iliac through common femoral to profunda. Further evaluation as needed with CTA to define proximal. Left SFa occluded. Will have him evaluated by Vascular Surgery. The appointment is 10/17/18. Progress of Wound: Surgery 05/25/18 with mild skin graft/flap compromise, improved. - Physical Exam Vital Signs Temp Pulse Resp BP 97.8 F 78 18 132/79 H 10/08/18 08:06 10/08/18 08:06 10/08/18 08:06 10/08/18 08:06 Wound Measurements and Assessment WC - Nurse 1 - General Ulcer Measurement Start: 09/26/18 13:05 Freq: Status: Active Protocol: Activity Type Activity Date Activity User E-Sign Co-Sign Detail Recorded Client Recorded Date Recorded By Document 10/08/18 08:06 [email or web address] [id number] 10/08/18 08:09 DL 10/08/18 08:06 Wound Center Nurse 1 [Ulcer Assessment] #5 L BKA stump -Current Size (cm) - Length 2.9 -Current Size (cm) - Width 7 -Current Size (cm) - Depth 0.3 -Total Square Cm 20.3 -Photo Taken No -Exudate Amt Small -Exudate Type Serosanguineous -Wound Margin Thickened -Granulation Amt Small (1-33%) -Granulation Quality [place] -Necrosis Amt Large (67-100%) -Necrotic Tissue Type Adherent Slough -Structure Exposed N/A -Texture (Ami-wound Skin Appearance) Scarring -Moisture (Ami-wound Skin Appearance No Abnormality ) -Color (Ami-wound Skin Appearance) No Abnormality -Temperature (Ami-wound Skin No Abnormality Appearance) (Pt Warm) -Tenderness on Palpation (Ami-wound No Skin Appearance) -Ulcer Cleansing Rinsed/ Irrigated with Saline -Foul Odor after Cleansing No -Anesthetic Used 4% Lidocaine Solution ELIAS - Nurse 2 - General Ulcer CM Notes Start: 09/26/18 13:05 Freq: Status: Active Protocol: Activity Type Activity Date Activity User E-Sign Co-Sign Detail Recorded Client Recorded Date Recorded By Document 10/08/18 08:24 [email or web address] [id number] 10/08/18 08:26 10/08/18 08:24 Wound Center Nurse 2 [Procedure/Treatment] -Time 08:25 -Correct Patient Yes -Correct Side, Site, Position Yes -Correct Procedure Yes -Procedure Performed Yes -Type of Procedure Debridement -Clinical Debridement Subcutaneous -Post Debridement Size (cm) - Length 3.0 -Post Debridement Size (cm) - Width 7.0 -Post Debridement Size (cm) - Depth 0.3 -Total Square Cm 21.00 -Wound/Ulcer Outcome Not Healed -Ulcer Cleansing Rinsed/ Irrigated with Saline -Foul Odor after Cleansing No -Bioengineered Tissue No -Bleeding Controlled with Pressure -Offloading No -Treatment Response Procedure Tolerated Well [See Physician Procedure note for Specifics] Pain Scale: 0-10 Numeric [Pain] -Is Patient Pain Free? Yes Debridement Note Post-Debridement Measurements/Treatment WC - Nurse 2 - General Ulcer CM Notes Start: 09/26/18 13:05 Freq: Status: Active Protocol: Activity Type Activity Date Activity User E-Sign Co-Sign Detail Recorded Client Recorded Date Recorded By Document 10/01/18 08:33 [id number] 10/01/18 08:35 Document 10/08/18 08:24 [id number] 10/08/18 08:26 10/01/18 10/08/18 08:33 08:24 Wound Center Nurse 2 #5 L BKA stump -Time 08:34 08:25 -Correct Patient Yes Yes -Correct Side, Site, Position Yes Yes -Correct Procedure Yes Yes -Procedure Performed Yes Yes -Type of Procedure Debridement Debridement -Clinical Debridement Subcutaneous Subcutaneous -Post Debridement Size (cm) - Length 2.5 3.0 -Post Debridement Size (cm) - Width 4.5 7.0 -Post Debridement Size (cm) - Depth 0.5 0.3 -Total Square Cm 11.25 21.00 -Wound/Ulcer Outcome Not Healed Not Healed -Ulcer Cleansing Rinsed/ Rinsed/ Irrigated with Irrigated with Saline Saline -Foul Odor after Cleansing No No -Bioengineered Tissue No No -Bleeding Controlled with Pressure Pressure -Offloading No No -Treatment Response Procedure Procedure Tolerated Well Tolerated Well Pain Scale: 0-10 Numeric Is Patient Pain Free? Yes Yes Wound debrided: #5 Left BKA stump. Laterality: Left Wound Grade/Stage: 4. Type of Debridement: Excisional debridement Anesthesia Used: 4% Lidocaine Solution Depth: Down to and including healthy tissue, in the subcutaneous layer Percentage of wound debrided: 100 Instrument Used: 5mm curette Tissue Removed: subcutaneous tissue. Severity: Fat Layer Exposed Amount of bleeding with debridement: Mild Bleeding Controlled with: Pressure Patient tolerated procedure well Assessment/Plan Active Problems (Last Reviewed 08/10/18 @ 10:08 by Aleja Lutz) Tobacco use disorder (Chronic) Partial loss of skin graft (Chronic) Methicillin resistant Staphylococcus aureus infection (Chronic) 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) [facility] current use of 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 (Chronic) Patient is on Coumadin for PE Chronic osteomyelitis of left tibia (Chronic) chronic osteomyelitis left tibia at BKA stump Pain of left anterior lower extremity (Chronic) Peripheral arterial disease (Chronic) Assessment: 1. Nonhealing ulcer left BKA stump with recent surgical closure 05/25/18. 2. Pain left BKA stump. 3. MRSA. 4. 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 5. Smoker, he has started again. 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 7. Early skin graft/flap compromise left BKA stump, (20% compromise). 8. s/p surgical preparation left BKA stump with excisional debridement nonhealing infected ulcer and complex secondary wound closure revision reconstruction with re-advancement muscle flap and bipedicle anterior leg fasciocutaneous advancement flap and STSG from the left flank (60 cm2). 9. JUAN (acute kidney injury), probable medication related, resolved. 10. PAD. Plan: Now that the Cipro has finished for the Pseudomonas, will stop the Acetic Acid dressing changes. There is minimal drainage, so will start Collagen Hydrogel dressing changes daily. The skin graft shows good adherence and about 85% take and good vascular ingrowth. There is some mild compromise at the inferior edge of the skin graft (about 15% compromise). The stump is soft and swelling has resolved. The central aspect of the stump anteriorly shows some mild compromise (about 10%). After debridement, the underlying subcutaneous tissue continues to appear viable with no exposure of bone. With the mild skin graft/flap compromise (about 25% total), he started HBO treatments which would help salvage the compromised graft/flap. He tolerated the HBO treatments and has finished them. He has noticed some mild visual blurring early on that has stayed constant. He states he hasn't noticed it worsening. I told him to tell me as soon as he has noticed any worsening of his symptoms, at which time an evaluation by an [employer] would be done. Prealbumin from the hospital was 17.5. Encourage nutritional supplementation with protein to help the healing process. After his last surgery in April, he had been on Vancomycin for a day which was stopped when his Creatinine increased to 1.70. It then decreased down to 1.49 before increasing back up to 1.96 and then most recently decreased back to 1.31 on 07/20/18. Encourage hydration. He has returned to work and is doing ok. Discussed with the patient that the presence of MRSA and Pseudomonas can be destructive to the surrounding tissue leading to suboptimal healing. When the Cipro was completed for the Pseudomonas, we applied for Epifix placental connective tissue graft placement. It was denied. Also with the patients history of vascular disease, we checked a duplex scan which showed decrease flow through left iliac through common femoral to profunda. Furher evaluation as needed with CTA to define proximal. Left SFa occluded. Will set him up with a Vascular Surgery evaluation for possible angioplasty to improve blood flow to the stump to maximize healing. The appointment is on 10/17/18. Also found out that he has started smoking again. Encouraged him to stop smoking as it may have deleterious effects on wound healing. He is at increased risk of having to revise his BKA into an AKA. He voiced understanding. Renewed his Percocet for pain (30 tabs) and his Valium fo r spasm (30 tabs). Discussed further operative debridement and skin grafting. Will discuss it further after his Vascular Surgery evaluation. Followup one week.
[2018-10-15 08:04] VITALS: BP 120/73; PULSE 83; RESP 18; TEMP 37; BMI 24.5
--- NOTE | 2018-10-15 19:55 | PCM.WC.PN ---
Type of Wound Date of Service: 10/15/18 Chief Complaint: Nonhealing ulcer left BKA stump with recent surgical closure 05/25/18 and mild skin graft/flap compromise. History of Wound: Surgery 05/25/18 - 1. Surgical preparation left BKA stump with excisional debridement nonhealing infected ulcer. 2. Complex secondary wound closure revision reconstruction with re-advancement muscle flap and bipedicle anterior leg fasciocutaneous advancement flap and STSG from the left flank (60 cm2). Surgery 04/05/18 - 1. Surgical preparation left BKA stump with incision and drainage and excisional debridement nonhealing infected ulcer. 2. Partial ostectomy tibia for osteomyelitis. Wound care - Collagen Hydrogel. Operative culture - MRSA. Soft tissue from 04/05/18 surgery - negative. Bone from 04/05/18 surgery - negative. Pathology from 04/05/18 surgery - negative for ostemyelitis. He was discharged on Bactrim DS. He has since finished the Bactrim DS. He had another wound culture done on 06/18/18 which showed Pseudomonas aeroginosa. He was placed on Levaquin and fininshed them. On 08/06/18, another wound culture was done because of increased odor. It showed Pseudomonas aeroginosa and Anaerobic cocci. He was started on Cipro and Flagyl was added. He has finished them. Prealbumin from 05/26/18 was 17.5. Encourage nutritional supplementation with protein to help the healing process. MRI left BKA stump in 10/13 showed osteomyelitis. He changed his anticoagulation medication and stopped the Coumadin and started Eliquis. Today he denies fever. His appetite is good. With his early compromise to the skin graft/flap, he underwent HBO treatments to help salvage the compromised graft/flap and has finished them. He has noticed some mild visual blurring early on that has stayed constant. He states he hasn't noticed it worsening. I told him to tell me as soon as he has noticed any worsening of his symptoms, an evaluation by an Assessment Coordinator would be done. Now that the Cipro was finished for the Pseudomonas, I applied for Epifix placental connective tissue graft. It was denied. With the patient's history of previous vascular disease, I ordered a duplex scan. It showed decreased flow through left iliac through common femoral to profunda. Further evaluation as needed with CTA to define proximal. Left SFa occluded. Will have him evaluated by Vascular Surgery. The appointment is 10/17/18. Progress of Wound: Surgery 05/25/18 with mild skin graft/flap compromise, improved. - Physical Exam Vital Signs Temp Pulse Resp BP 98.6 F 83 18 120/73 10/15/18 08:04 10/15/18 08:04 10/15/18 08:04 10/15/18 08:04 Wound Measurements and Assessment WC - Nurse 1 - General Ulcer Measurement Start: 09/26/18 13:05 Freq: Status: Active Protocol: Activity Type Activity Date Activity User E-Sign Co-Sign Detail Recorded Client Recorded Date Recorded By Document 10/15/18 08:04 DL [id number] 10/15/18 08:07 DL 10/15/18 08:04 Wound Center Nurse 1 [Ulcer Assessment] #5 L BKA stump -Current Size (cm) - Length 2 -Current Size (cm) - Width 6.6 -Current Size (cm) - Depth 0.3 -Total Square Cm 13.2 -Photo Taken No -Exudate Amt Small -Exudate Type Serosanguineous -Wound Margin Thickened -Granulation Amt Large (67-100%) -Granulation Quality [place] -Necrosis Amt Small (1-33%) -Necrotic Tissue Type Adherent Slough -Structure Exposed N/A -Texture (Ami-wound Skin Appearance) Scarring -Moisture (Ami-wound Skin Appearance No Abnormality ) -Color (Ami-wound Skin Appearance) No Abnormality -Temperature (Ami-wound Skin No Abnormality Appearance) (Pt Warm) -Tenderness on Palpation (Ami-wound No Skin Appearance) -Ulcer Cleansing Wound Cleanser -Foul Odor after Cleansing No -Anesthetic Used 4% Lidocaine Solution WC - Nurse 2 - General Ulcer CM Notes Start: 09/26/18 13:05 Freq: Status: Active Protocol: Activity Type Activity Date Activity User E-Sign Co-Sign Detail Recorded Client Recorded Date Recorded By Document 10/15/18 08:14 [email or web address] [id number] 10/15/18 08:17 FLAVIA 10/15/18 08:14 Wound Center Nurse 2 [Procedure/Treatment] -Time 08:15 -Correct Patient Yes -Correct Side, Site, Position Yes -Correct Procedure Yes -Procedure Performed Yes -Type of Procedure Debridement -Clinical Debridement Subcutaneous -Post Debridement Size (cm) - Length 3 -Post Debridement Size (cm) - Width 6.7 -Post Debridement Size (cm) - Depth 0.3 -Total Square Cm 20.1 -Wound/Ulcer Outcome Not Healed -Ulcer Cleansing Rinsed/ Irrigated with Saline -Foul Odor after Cleansing No -Bioengineered Tissue No -Bleeding Controlled with Pressure -Offloading No -Treatment Response Procedure Tolerated Well [See Physician Procedure note for Specifics] Pain Scale: 0-10 Numeric [Pain] -Is Patient Pain Free? Yes Debridement Note Post-Debridement Measurements/Treatment WC - Nurse 2 - General Ulcer CM Notes Start: 09/26/18 13:05 Freq: Status: Active Protocol: Activity Type Activity Date Activity User E-Sign Co-Sign Detail Recorded Client Recorded Date Recorded By Document 10/01/18 08:33 [id number] 10/01/18 08:35 Document 10/08/18 08:24 [id number] 10/08/18 08:26 Document 10/15/18 08:14 [id number] 10/15/18 08:17 10/01/18 10/08/18 10/15/18 08:33 08:24 08:14 Wound Center Nurse 2 #5 L BKA stump -Time 08:34 08:25 08:15 -Correct Patient Yes Yes Yes -Correct Side, Site, Position Yes Yes Yes -Correct Procedure Yes Yes Yes -Procedure Performed Yes Yes Yes -Type of Procedure Debridement Debridement Debridement -Clinical Debridement Subcutaneous Subcutaneous Subcutaneous -Post Debridement Size (cm) - Length 2.5 3.0 3 -Post Debridement Size (cm) - Width 4.5 7.0 6.7 -Post Debridement Size (cm) - Depth 0.5 0.3 0.3 -Total Square Cm 11.25 21.00 20.1 -Wound/Ulcer Outcome Not Healed Not Healed Not Healed -Ulcer Cleansing Rinsed/ Rinsed/ Rinsed/ Irrigated with Irrigated with Irrigated with Saline Saline Saline -Foul Odor after Cleansing No No No -Bioengineered Tissue No No No -Bleeding Controlled with Pressure Pressure Pressure -Offloading No No No -Treatment Response Procedure Procedure Procedure Tolerated Well Tolerated Well Tolerated Well Pain Scale: 0-10 Numeric Is Patient Pain Free? Yes Yes Yes Wound debrided: #5 Left BKA stump. Laterality: Left Wound Grade/Stage: 4. Type of Debridement: Excisional debridement Anesthesia Used: 4% Lidocaine Solution Depth: Down to and including healthy tissue, in the subcutaneous layer Percentage of wound debrided: 100 Instrument Used: 5mm curette Tissue Removed: subcutaneous tissue. Severity: Fat Layer Exposed Amount of bleeding with debridement: Mild Bleeding Controlled with: Pressure Patient tolerated procedure well Assessment/Plan Assessment: 1. Nonhealing ulcer left BKA stump with recent surgical closure 05/25/18. 2. Pain left BKA stump. 3. MRSA. 4. 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 5. Smoker, he has started again. 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 7. Early skin graft/flap compromise left BKA stump, (20% compromise). 8. s/p surgical preparation left BKA stump with excisional debridement nonhealing infected ulcer and complex secondary wound closure revision reconstruction with re-advancement muscle flap and bipedicle anterior leg fasciocutaneous advancement flap and STSG from the left flank (60 cm2). 9. PAD. Plan: Continue Collagen Hydrogel dressing changes daily. The skin graft shows good adherence and about 85% take and good vascular ingrowth. There is some mild compromise at the inferior edge of the skin graft (about 15% compromise). The stump is soft and swelling has resolved. The central aspect of the stump anteriorly shows some mild compromise (about 10%). After debridement, the underlying subcutaneous tissue continues to appear viable with no exposure of bone. With the mild skin graft/flap compromise (about 25% total), he started HBO treatments which would help salvage the compromised graft/flap. He tolerated the HBO treatments and has finished them. He has noticed some mild visual blurring early on that has stayed constant. He states he hasn't noticed it worsening. I told him to tell me as soon as he has noticed any worsening of his symptoms, at which time an evaluation by an Assessment Coordinator would be done. Prealbumin from the hospital was 17.5. Encourage nutritional supplementation with protein to help the healing process. He has returned to work and is doing ok. Discussed with the patient that the presence of MRSA and Pseudomonas can be destructive to the surrounding tissue leading to suboptimal healing. When the Cipro was completed for the Pseudomonas, we applied for Epifix placental connective tissue graft placement. It was denied. Also with the patients history of vascular disease, we checked a duplex scan which showed decrease flow through left iliac through common femoral to profunda. Furher evaluation as needed with CTA to define proximal. Left SFa occluded. Will set him up with a Vascular Surgery evaluation for possible angioplasty to improve blood flow to the stump to maximize healing. The appointment is on 10/17/18. Also found out that he has started smoking again. Encouraged him to stop smoking as it may have deleterious effects on wound healing. He is at increased risk of having to revise his BKA into an AKA. He voiced understanding. Renewed his Percocet for pain (30 tabs). Discussed further operative debridement and skin grafting. Will discuss it further after his Vascular Surgery evaluation. Followup one week.
[2018-10-23 13:20] VITALS: BP 120/78; PULSE 94; RESP 18; TEMP 37.3; BMI 24.5
--- NOTE | 2018-10-23 16:25 | PCM.WC.PN ---
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 Current Visit: Yes Code(s): T86.828 - Other complications of skin graft (allograft) (autograft) (2) Methicillin resistant Staphylococcus aureus infection Status: Chronic Current Visit: Yes Code(s): A49.02 - Methicillin resistant Staphylococcus aureus infection, unspecified site (3) Status post below knee amputation of left lower extremity Status: Chronic Current Visit: Yes Code(s): Z89.512 - Acquired absence of left leg below knee (4) residential current use of 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 Status: Chronic Current Visit: Yes Code(s): Z79.01 - terminal operator (current) use of 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s Comment: Patient is on Coumadin for PE (5) Chronic osteomyelitis of left tibia Status: Chronic Current Visit: Yes Code(s): M86.662 - Other chronic osteomyelitis, left tibia and fibula Comment: chronic osteomyelitis left tibia at BKA stump (6) Pain of left anterior lower extremity Status: Chronic Current Visit: Yes Code(s): M79.605 - Pain in left leg (7) Peripheral arterial disease Status: Chronic Current Visit: Yes Code(s): I73.9 - Peripheral vascular disease, unspecified (8) Tobacco use disorder Status: Chronic Current Visit: Yes Code(s): F17.200 - Nicotine dependence, unspecified, uncomplicated Type of Wound Date of Service: 10/23/18 Chief Complaint: Nonhealing ulcer left BKA stump with recent surgical closure 05/25/18 and mild skin graft/flap compromise. History of Wound: Surgery 05/25/18 - 1. Surgical preparation left BKA stump with excisional debridement nonhealing infected ulcer. 2. Complex secondary wound closure revision reconstruction with re-advancement muscle flap and bipedicle anterior leg fasciocutaneous advancement flap and STSG from the left flank (60 cm2). Surgery 04/05/18 - 1. Surgical preparation left BKA stump with incision and drainage and excisional debridement nonhealing infected ulcer. 2. Partial ostectomy tibia for osteomyelitis. Wound care - Collagen Hydrogel. Operative culture - MRSA. Soft tissue from 04/05/18 surgery - negative. Bone from 04/05/18 surgery - negative. Pathology from 04/05/18 surgery - negative for ostemyelitis. He was discharged on Bactrim DS. He has since finished the Bactrim DS. He had another wound culture done on 06/18/18 which showed Pseudomonas aeroginosa. He was placed on Levaquin and fininshed them. On 08/06/18, another wound culture was done because of increased odor. It showed Pseudomonas aeroginosa and Anaerobic cocci. He was started on Cipro and Flagyl was added. He has finished them. Prealbumin from 05/26/18 was 17.5. Encourage nutritional supplementation with protein to help the healing process. MRI left BKA stump in 10/13 showed osteomyelitis. He changed his anticoagulation medication and stopped the Coumadin and started Eliquis. Today he denies fever. His appetite is good. With his early compromise to the skin graft/flap, he underwent HBO treatments to help salvage the compromised graft/flap and has finished them. He has noticed some mild visual blurring early on that has stayed constant. He states he hasn't noticed it worsening. I told him to tell me as soon as he has noticed any worsening of his symptoms, an evaluation by an Finance Teacher would be done. Now that the Cipro was finished for the Pseudomonas, I applied for Epifix placental connective tissue graft. It was denied. With the patient's history of previous vascular disease, I ordered a duplex scan. It showed decreased flow through left iliac through common femoral to profunda. Further evaluation as needed with CTA to define proximal. Left SFa occluded. He saw Dr. Armstrong on 10/17/18. Patient states that they tried to open up a blockage but was unsuccessful. They were able to open up some surrounding blockages but not the main one. He was placed back on his Plavix. Patient is waiting to hear from vascular surgery for the next step. Progress of Wound: Surgery 05/25/18 with mild skin graft/flap compromise, improved. - Physical Exam Vital Signs Temp Pulse Resp BP 99.1 F 94 18 120/78 10/23/18 13:20 10/23/18 13:20 10/23/18 13:20 10/23/18 13:20 General: Alert, Oriented x3 HEENT: Atraumatic Oral: Moist Mucosa Neck: Supple Lungs: Normal air movement Cardiovascular: Regular rate Abdomen: Soft Extremities: No edema, Capillary Refill Less than 3 Seconds Skin: Ulcer/ Wound - Left BKA stump. Compromised graft Wound Measurements and Assessment WC - Nurse 1 - General Ulcer Measurement Start: 09/26/18 13:05 Freq: Status: Active Protocol: Activity Type Activity Date Activity User E-Sign Co-Sign Detail Recorded Client Recorded Date Recorded By Document 10/23/18 13:20 DL [id number] 10/23/18 13:26 DL 10/23/18 13:20 Wound Center Nurse 1 [Ulcer Assessment] #5 L BKA stump -Current Size (cm) - Length 1.8 -Current Size (cm) - Width 3.4 -Current Size (cm) - Depth 0.5 -Total Square Cm 6.12 -Photo Taken No -Exudate Amt Small -Exudate Type Serosanguineous -Wound Margin Thickened & Rolled Under -Granulation Amt Medium (34-66%) -Granulation Quality Red -Necrosis Amt Medium (34-66%) -Necrotic Tissue Type Adherent Slough -Structure Exposed N/A -Texture (Ami-wound Skin Appearance) Scarring -Moisture (Ami-wound Skin Appearance No Abnormality ) -Color (Ami-wound Skin Appearance) No Abnormality -Temperature (Ami-wound Skin No Abnormality Appearance) (Pt Warm) -Tenderness on Palpation (Ami-wound No Skin Appearance) -Ulcer Cleansing Rinsed/ Irrigated with Saline -Foul Odor after Cleansing No -Anesthetic Used 4% Lidocaine Solution WC - Nurse 2 - General Ulcer CM Notes Start: 09/26/18 13:05 Freq: Status: Active Protocol: Activity Type Activity Date Activity User E-Sign Co-Sign Detail Recorded Client Recorded Date Recorded By Document 10/23/18 13:40 [email or web address] 10/23/18 13:41 10/23/18 13:40 Wound Center Nurse 2 [Procedure/Treatment] -Time 13:41 -Correct Patient Yes -Correct Side, Site, Position Yes -Correct Procedure Yes -Procedure Performed Yes -Type of Procedure Debridement -Clinical Debridement Subcutaneous -Post Debridement Size (cm) - Length 3 -Post Debridement Size (cm) - Width 4.5 -Post Debridement Size (cm) - Depth 0.7 -Total Square Cm 13.5 -Wound/Ulcer Outcome Not Healed -Ulcer Cleansing Rinsed/ Irrigated with Saline -Foul Odor after Cleansing No -Bioengineered Tissue No -Bleeding Controlled with Pressure -Offloading No -Treatment Response Procedure Tolerated Well [See Physician Procedure note for Specifics] Pain Scale: 0-10 Numeric [Pain] -Is Patient Pain Free? Yes Musculoskeletal: Tenderness - Tenderness to the anterior aspect of left stump open area Neurological: Neuro grossly intact Psych/Mental Status: Normal Affect, Appropriate Debridement Note Post-Debridement Measurements/Treatment WC - Nurse 2 - General Ulcer CM Notes Start: 09/26/18 13:05 Freq: Status: Active Protocol: Activity Type Activity Date Activity User E-Sign Co-Sign Detail Recorded Client Recorded Date Recorded By Document 10/01/18 08:33 [id number] 10/01/18 08:35 Document 10/08/18 08:24 [id number] 10/08/18 08:26 Document 10/15/18 08:14 [id number] 10/15/18 08:17 Document 10/23/18 13:40 [id number] 10/23/18 13:41 10/01/18 10/08/18 10/15/18 08:33 08:24 08:14 Wound Center Nurse 2 #5 L BKA stump -Time 08:34 08:25 08:15 -Correct Patient Yes Yes Yes -Correct Side, Site, Position Yes Yes Yes -Correct Procedure Yes Yes Yes -Procedure Performed Yes Yes Yes -Type of Procedure Debridement Debridement Debridement -Clinical Debridement Subcutaneous Subcutaneous Subcutaneous -Post Debridement Size (cm) - Length 2.5 3.0 3 -Post Debridement Size (cm) - Width 4.5 7.0 6.7 -Post Debridement Size (cm) - Depth 0.5 0.3 0.3 -Total Square Cm 11.25 21.00 20.1 -Wound/Ulcer Outcome Not Healed Not Healed Not Healed -Ulcer Cleansing Rinsed/ Rinsed/ Rinsed/ Irrigated with Irrigated with Irrigated with Saline Saline Saline -Foul Odor after Cleansing No No No -Bioengineered Tissue No No No -Bleeding Controlled with Pressure Pressure Pressure -Offloading No No No -Treatment Response Procedure Procedure Procedure Tolerated Well Tolerated Well Tolerated Well Pain Scale: 0-10 Numeric Is Patient Pain Free? Yes Yes Yes 10/23/18 13:40 Wound Center Nurse 2 #5 L BKA stump -Time 13:41 -Correct Patient Yes -Correct Side, Site, Position Yes -Correct Procedure Yes -Procedure Performed Yes -Type of Procedure Debridement -Clinical Debridement Subcutaneous -Post Debridement Size (cm) - Length 3 -Post Debridement Size (cm) - Width 4.5 -Post Debridement Size (cm) - Depth 0.7 -Total Square Cm 13.5 -Wound/Ulcer Outcome Not Healed -Ulcer Cleansing Rinsed/ Irrigated with Saline -Foul Odor after Cleansing No -Bioengineered Tissue No -Bleeding Controlled with Pressure -Offloading No -Treatment Response Procedure Tolerated Well Pain Scale: 0-10 Numeric Is Patient Pain Free? Yes Wound debrided: left BKA stump, compromised skin graft Laterality: Left Type of Debridement: Excisional debridement Anesthesia Used: 5% Lidocaine Gel Depth: Down to and including healthy tissue, in the subcutaneous layer Percentage of wound debrided: 100 Instrument Used: 7mm curette Tissue Removed: Subcutaneous tissue and slough Severity: Fat Layer Exposed Amount of bleeding with debridement: Mild Bleeding Controlled with: Pressure Patient tolerated procedure well Assessment/Plan Active Problems (Last Reviewed 08/10/18 @ 10:08 by Aleja Lutz) Tobacco use disorder (Chronic) Partial loss of skin graft (Chronic) Methicillin resistant Staphylococcus aureus infection (Chronic) 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) residential current use of 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 (Chronic) Patient is on Coumadin for PE Chronic osteomyelitis of left tibia (Chronic) chronic osteomyelitis left tibia at BKA stump Pain of left anterior lower extremity (Chronic) Peripheral arterial disease (Chronic) Assessment: 1. Nonhealing ulcer left BKA stump with recent surgical closure 05/25/18. 2. Pain left BKA stump. 3. MRSA. 4. 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 5. Smoker, he has started again. 6. residential use of anticoagulation. 7. Early skin graft/flap compromise left BKA stump, (20% compromise). 8. s/p surgical preparation left BKA stump with excisional debridement nonhealing infected ulcer and complex secondary wound closure revision reconstruction with re-advancement muscle flap and bipedicle anterior leg fasciocutaneous advancement flap and STSG from the left flank (60 cm2). 9. PAD. Plan: Continue Collagen Hydrogel dressing changes daily. The skin graft shows good adherence and about 85% take and good vascular ingrowth. There is some mild compromise at the inferior edge of the skin graft (about 15% compromise). The stump is soft and swelling has resolved. The central aspect of the stump anteriorly shows some mild compromise (about 10%). After debridement, the underlying subcutaneous tissue continues to appear viable with no exposure of bone. With the mild skin graft/flap compromise (about 25% total), he started HBO treatments which would help salvage the compromised graft/flap. He tolerated the HBO treatments and has finished them. He has noticed some mild visual blurring early on that has stayed constant. He states he hasn't noticed it worsening. I told him to tell me as soon as he has noticed any worsening of his symptoms, at which time an evaluation by an Finance Teacher would be done. Prealbumin from the hospital was 17.5. Encourage nutritional supplementation with protein to help the healing process. He has returned to work and is doing ok. Discussed with the patient that the presence of MRSA and Pseudomonas can be destructive to the surrounding tissue leading to suboptimal healing. When the Cipro was completed for the Pseudomonas, we applied for Epifix placental connective tissue graft placement. It was denied. Also with the patients history of vascular disease, we checked a duplex scan which showed decrease flow through left iliac through common femoral to profunda. Further evaluation as needed with CTA to define proximal. Left SFa occluded. He saw Dr. Armstrong on 10/17/18. He states that he tried to open up a blockage but was unsuccessful. Able to open some collateral vessels per the patient. Restarted him on Plavix. He is going back to Vascular surgeon for further treatment, unsure exactly what is planned. Also found out that he has started smoking again. Encouraged him to stop smoking as it may have deleterious effects on wound healing. He is at increased risk of having to revise his BKA into an AKA. He voiced understanding. Discussed further operative debridement and skin grafting. Will discuss it further after his Vascular Surgery evaluation. Followup one week. Code Visit 111xxx-113xx: 09019 Aleena subq tissue 20 sq cm/<
== END 2018-10-26 23:59 ==
LOC: WC 13:00
PROVIDERS: Family Provider Internal Medicine; PCP Internal Medicine; Visit Provider Surgery
DX: T86.828 Other complications of skin graft (allograft) (autograft) (principal); Y83.8 Other surgical procedures as the cause of abnormal reaction of the patient, or of later complication, without mention of misadventure at the time of the procedure; Z89.512 Acquired absence of left leg below knee; Z86.718 Personal history of other venous thrombosis and embolism; Z86.711 Personal history of pulmonary embolism; I73.9 Peripheral vascular disease, unspecified; T87.81 Dehiscence of amputation stump; M86.662 Other chronic osteomyelitis, left tibia and fibula; Z86.14 Personal history of Methicillin resistant Staphylococcus aureus infection; F17.200 Nicotine dependence, unspecified, uncomplicated
CPT/HCPCS: 11042; 11045; 99183; G0277

== ENCOUNTER 2018-11-19 08:00 | Outpatient (RCR) | payer OTHER, SELFPAY ==
[2018-10-27 00:46] VITALS: BP 120/78; PULSE 94; RESP 18; TEMP 37.3
[2018-10-29 08:07] VITALS: BP 116/68; PULSE 79; RESP 18; TEMP 36.2; BMI 24.5
--- NOTE | 2018-10-29 08:50 | PCM.WC.PN ---
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 Current Visit: Yes Code(s): T86.828 - Other complications of skin graft (allograft) (autograft) (2) Pain of amputation stump of left lower extremity Status: Chronic Current Visit: Yes Code(s): T87.89 - Other complications of amputation stump; M79.605 - Pain in left leg (3) Personal history of osteomyelitis Status: Chronic Current Visit: No Code(s): Z87.39 - Personal history of other diseases of the musculoskeletal system and connective tissue (4) Status post below knee amputation of left lower extremity Status: Chronic Current Visit: Yes Code(s): Z89.512 - Acquired absence of left leg below knee (5) Tobacco use disorder Status: Chronic Current Visit: Yes Code(s): F17.200 - Nicotine dependence, unspecified, uncomplicated Type of Wound Date of Service: 10/29/18 Chief Complaint: Nonhealing ulcer left BKA stump with recent surgical closure 05/25/18 and mild skin graft/flap compromise. History of Wound: Surgery 05/25/18 - 1. Surgical preparation left BKA stump with excisional debridement nonhealing infected ulcer. 2. Complex secondary wound closure revision reconstruction with re-advancement muscle flap and bipedicle anterior leg fasciocutaneous advancement flap and STSG from the left flank (60 cm2). Surgery 04/05/18 - 1. Surgical preparation left BKA stump with incision and drainage and excisional debridement nonhealing infected ulcer. 2. Partial ostectomy tibia for osteomyelitis. Wound care - Collagen Hydrogel. Operative culture - MRSA. Soft tissue from 04/05/18 surgery - negative. Bone from 04/05/18 surgery - negative. Pathology from 04/05/18 surgery - negative for ostemyelitis. He was discharged on Bactrim DS. He has since finished the Bactrim DS. He had another wound culture done on 06/18/18 which showed Pseudomonas aeroginosa. He was placed on Levaquin and fininshed them. On 08/06/18, another wound culture was done because of increased odor. It showed Pseudomonas aeroginosa and Anaerobic cocci. He was started on Cipro and Flagyl was added. He has finished them. Prealbumin from 05/26/18 was 17.5. Encourage nutritional supplementation with protein to help the healing process. MRI left BKA stump in 10/13 showed osteomyelitis. He changed his anticoagulation medication and stopped the Coumadin and started Eliquis. Today he denies fever. His appetite is good. With his early compromise to the skin graft/flap, he underwent HBO treatments to help salvage the compromised graft/flap and has finished them. He has noticed some mild visual blurring early on that has stayed constant. He states he hasn't noticed it worsening. I told him to tell me as soon as he has noticed any worsening of his symptoms, an evaluation by an System Operation Superintendent would be done. Now that the Cipro was finished for the Pseudomonas, I applied for Epifix placental connective tissue graft. It was denied. With the patient's history of previous vascular disease, I ordered a duplex scan. It showed decreased flow through left iliac through common femoral to profunda. Further evaluation as needed with CTA to define proximal. Left SFa occluded. He saw Dr. Armstrong on 10/17/18. Patient states that they tried to open up a blockage but was unsuccessful. They were able to open up some surrounding blockages but not the main one. He was placed back on his Plavix. Patient is waiting to hear from vascular surgery for the next step. Progress of Wound: Surgery 05/25/18 with mild skin graft/flap compromise, improved. - Physical Exam Vital Signs Temp Pulse Resp BP 97.2 F L 79 18 116/68 10/29/18 08:07 10/29/18 08:07 10/29/18 08:07 10/29/18 08:07 General: Alert, Oriented x3, Cooperative HEENT: Atraumatic Oral: Moist Mucosa Lungs: Normal air movement Cardiovascular: Regular rate Extremities: Tenderness - Left BKA stump wound extremely sensitive to palpation Skin: Ulcer/ Wound - Left BKA stump ulcer Wound Measurements and Assessment WC - Nurse 1 - General Ulcer Measurement Start: 10/29/18 08:06 Freq: Status: Active Protocol: Activity Type Activity Date Activity User E-Sign Co-Sign Detail Recorded Client Recorded Date Recorded By Document 10/29/18 08:10 DL [id number] 10/29/18 08:12 DL 10/29/18 08:10 Wound Center Nurse 1 [Ulcer Assessment] #5 L BKA stump -Current Size (cm) - Length 1.3 -Current Size (cm) - Width 3.5 -Current Size (cm) - Depth 0.1 -Total Square Cm 4.55 -Photo Taken No -Exudate Amt Small -Exudate Type Serosanguineous -Wound Margin Distinct, Outline Attached -Granulation Amt Medium (34-66%) -Granulation Quality [place] -Necrosis Amt Medium (34-66%) -Necrotic Tissue Type Adherent Slough -Structure Exposed N/A -Texture (Ami-wound Skin Appearance) Scarring -Moisture (Ami-wound Skin Appearance No Abnormality ) -Temperature (Ami-wound Skin No Abnormality Appearance) (Pt Warm) -Tenderness on Palpation (Ami-wound No Skin Appearance) -Ulcer Cleansing Wound Cleanser -Foul Odor after Cleansing No -Anesthetic Used 4% Lidocaine Solution WC - Nurse 2 - General Ulcer CM Notes Start: 10/29/18 08:06 Freq: Status: Active Protocol: Activity Type Activity Date Activity User E-Sign Co-Sign Detail Recorded Client Recorded Date Recorded By Document 10/29/18 08:28 DL [id number] 10/29/18 08:33 DL 10/29/18 08:28 Wound Center Nurse 2 [Procedure/Treatment] -Time 08:30 -Correct Patient Yes -Correct Side, Site, Position Yes -Correct Procedure Yes -Procedure Performed Yes -Type of Procedure Debridement -Clinical Debridement Subcutaneous -Post Debridement Size (cm) - Length 2.0 -Post Debridement Size (cm) - Width 3.2 -Post Debridement Size (cm) - Depth 0.6 -Total Square Cm 6.40 -Wound/Ulcer Outcome Not Healed -Ulcer Cleansing Rinsed/ Irrigated with Saline -Foul Odor after Cleansing No -Bioengineered Tissue No -Bleeding Controlled with Pressure -Offloading No -Treatment Response Procedure Tolerated Well [See Physician Procedure note for Specifics] Pain Scale: 0-10 Numeric [Pain] -Is Patient Pain Free? Yes Musculoskeletal: Tenderness - tenderness distal BKA stump on anterior surface Neurological: Neuro grossly intact Psych/Mental Status: Normal Affect, Appropriate Debridement Note Post-Debridement Measurements/Treatment - Nurse 2 - General Ulcer CM Notes Start: 10/29/18 08:06 Freq: Status: Active Protocol: Activity Type Activity Date Activity User E-Sign Co-Sign Detail Recorded Client Recorded Date Recorded By Document 10/29/18 08:28 DL [id number] 10/29/18 08:33 DL 10/29/18 08:28 Wound Center Nurse 2 #5 L BKA stump -Time 08:30 -Correct Patient Yes -Correct Side, Site, Position Yes -Correct Procedure Yes -Procedure Performed Yes -Type of Procedure Debridement -Clinical Debridement Subcutaneous -Post Debridement Size (cm) - Length 2.0 -Post Debridement Size (cm) - Width 3.2 -Post Debridement Size (cm) - Depth 0.6 -Total Square Cm 6.40 -Wound/Ulcer Outcome Not Healed -Ulcer Cleansing Rinsed/ Irrigated with Saline -Foul Odor after Cleansing No -Bioengineered Tissue No -Bleeding Controlled with Pressure -Offloading No -Treatment Response Procedure Tolerated Well Pain Scale: 0-10 Numeric Is Patient Pain Free? Yes Wound debrided: Left BKA stump ulcer Laterality: Left Type of Debridement: Excisional debridement Anesthesia Used: 5% Lidocaine Gel Depth: Down to and including healthy tissue, in the subcutaneous layer Percentage of wound debrided: 100 Instrument Used: 7mm curette Tissue Removed: Subcutaneous tissue and slough Severity: Fat Layer Exposed Amount of bleeding with debridement: Mild Bleeding Controlled with: Pressure, Compression and gauze Patient tolerated procedure well Assessment/Plan Active Problems (Last Reviewed 08/10/18 @ 10:08 by Aleja Lutz) Tobacco use disorder (Chronic) Partial loss of skin graft (Chronic) 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) Pain of amputation stump of left lower extremity (Chronic) Assessment: 1. Nonhealing ulcer left BKA stump with recent surgical closure 05/25/18. 2. Pain left BKA stump. 3. MRSA. 4. 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 5. Smoker, he has started again. 6. 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 7. Early skin graft/flap compromise left BKA stump, (20% compromise). 8. s/p surgical preparation left BKA stump with excisional debridement nonhealing infected ulcer and complex secondary wound closure revision reconstruction with re-advancement muscle flap and bipedicle anterior leg fasciocutaneous advancement flap and STSG from the left flank (60 cm2). 9. PAD. Plan: Continue Collagen Hydrogel dressing changes daily. The skin graft shows good adherence and about 85% take and good vascular ingrowth. There is some mild compromise at the inferior edge of the skin graft (about 15% compromise). The stump is soft and swelling has resolved. The central aspect of the stump anteriorly shows some mild compromise (about 10%). After debridement, the underlying subcutaneous tissue continues to appear viable with no exposure of bone. With the mild skin graft/flap compromise (about 25% total), he started HBO treatments which would help salvage the compromised graft/flap. He tolerated the HBO treatments and has finished them. He has noticed some mild visual blurring early on that has stayed constant. He states he hasn't noticed it worsening. I told him to tell me as soon as he has noticed any worsening of his symptoms, at which time an evaluation by an System Operation Superintendent would be done. Prealbumin from the hospital was 17.5. Encourage nutritional supplementation with protein to help the healing process. He has returned to work and is doing ok. Discussed with the patient that the presence of MRSA and Pseudomonas can be destructive to the surrounding tissue leading to suboptimal healing. When the Cipro was completed for the Pseudomonas, we applied for Epifix placental connective tissue graft placement. It was denied. Also with the patients history of vascular disease, we checked a duplex scan which showed decrease flow through left iliac through common femoral to profunda. Further evaluation as needed with CTA to define proximal. Left SFa occluded. He saw Dr. Armstrong on 10/17/18. He states that he tried to open up a blockage but was unsuccessful. Able to open some collateral vessels per the patient. Restarted him on Plavix. He is going back to Vascular surgeon for further treatment, unsure exactly what is planned. Also found out that he has started smoking again. Encouraged him to stop smoking as it may have deleterious effects on wound healing. He is at increased risk of having to revise his BKA into an AKA. He voiced understanding. Discussed further operative debridement and skin grafting. Will discuss it further after his Vascular Surgery evaluation. Followup one week. Renewed his Percocet (30) and Valium (20). OARRS report reviewed, no suspicious activitiy. Code Visit 111xxx-113xx: [id number] Aleena subq tissue 20 sq cm/<
--- NOTE | 2018-10-29 08:57 | PN.PCM_ITS ---
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 Current Visit: Yes Code(s): T86.828 - Other complications of skin graft (allograft) (autograft) (2) Pain of amputation stump of left lower extremity Status: Chronic Current Visit: Yes Code(s): T87.89 - Other complications of amputation stump; M79.605 - Pain in left leg (3) Personal history of osteomyelitis Status: Chronic Current Visit: No Code(s): Z87.39 - Personal history of other diseases of the musculoskeletal system and connective tissue (4) Status post below knee amputation of left lower extremity Status: Chronic Current Visit: Yes Code(s): Z89.512 - Acquired absence of left leg below knee (5) Tobacco use disorder Status: Chronic Current Visit: Yes Code(s): F17.200 - Nicotine dependence, unspecified, uncomplicated Type of Wound Date of Service: 10/29/18 Chief Complaint: Nonhealing ulcer left BKA stump with recent surgical closure 05/25/18 and mild skin graft/flap compromise. History of Wound: Surgery 05/25/18 - 1. Surgical preparation left BKA stump with excisional debridement nonhealing infected ulcer. 2. Complex secondary wound closure revision reconstruction with re-advancement muscle flap and bipedicle anterior leg fasciocutaneous advancement flap and STSG from the left flank (60 cm2). Surgery 04/05/18 - 1. Surgical preparation left BKA stump with incision and drainage and excisional debridement nonhealing infected ulcer. 2. Partial ostectomy tibia for osteomyelitis. Wound care - Collagen Hydrogel. Operative culture - MRSA. Soft tissue from 04/05/18 surgery - negative. Bone from 04/05/18 surgery - negative. Pathology from 04/05/18 surgery - negative for ostemyelitis. He was discharged on Bactrim DS. He has since finished the Bactrim DS. He had another wound culture done on 06/18/18 which showed Pseudomonas aeroginosa. He was placed on Levaquin and fininshed them. On 08/06/18, another wound culture was done because of increased odor. It showed Pseudomonas aeroginosa and Anaerobic cocci. He was started on Cipro and Flagyl was added. He has finished them. Prealbumin from 05/26/18 was 17.5. Encourage nutritional supplementation with protein to help the healing process. MRI left BKA stump in 10/13 showed osteomyelitis. He changed his anticoagulation medication and stopped the Coumadin and started Eliquis. Today he denies fever. His appetite is good. With his early compromise to the skin graft/flap, he un derwent HBO treatments to help salvage the compromised graft/flap and has finished them. He has noticed some mild visual blurring early on that has stayed constant. He states he hasn't noticed it worsening. I told him to tell me as soon as he has noticed any worsening of his symptoms, an evaluation by an Coater Operator would be done. Now that the Cipro was finished for the Pseudomonas, I applied for Epifix placental connective tissue graft. It was denied. With the patient's history of previous vascular disease, I ordered a duplex scan. It showed decreased flow through left iliac through common femoral to profunda. Further evaluation as needed with CTA to define proximal. Left SFa occluded. He saw Dr. Armstrong on 10/17/18. Patient states that they tried to open up a blockage but was unsuccessful. They were able to open up some surrounding blockages but not the main one. He was placed back on his Plavix. Patient is waiting to hear from vascular surgery for the next step. Progress of Wound: Surgery 05/25/18 with mild skin graft/flap compromise, improved. - Physical Exam Vital Signs Temp Pulse Resp BP 97.2 F L 79 18 116/68 10/29/18 08:07 10/29/18 08:07 10/29/18 08:07 10/29/18 08:07 General: Alert, Oriented x3, Cooperative HEENT: Atraumatic Oral: Moist Mucosa Lungs: Normal air movement Cardiovascular: Regular rate Extremities: Tenderness - Left BKA stump wound extremely sensitive to palpation Skin: Ulcer/ Wound - Left BKA stump ulcer Wound Measurements and Assessment WC - Nurse 1 - General Ulcer Measurement Start: 10/29/18 08:06 Freq: Status: Active Protocol: Activity Type Activity Date Activity User E-Sign Co-Sign Detail Recorded Client Recorded Date Recorded By Document 10/29/18 08:10 DL [id number] 10/29/18 08:12 DL 10/29/18 08:10 Wound Center Nurse 1 [Ulcer Assessment] #5 L BKA stump -Current Size (cm) - Length 1.3 -Current Size (cm) - Width 3.5 -Current Size (cm) - Depth 0.1 -Total Square Cm 4.55 -Photo Taken No -Exudate Amt Small -Exudate Type Serosanguineous -Wound Margin Distinct, Outline Attached -Granulation Amt Medium (34-66%) -Granulation Quality [place] -Necrosis Amt Medium (34-66%) -Necrotic Tissue Type Adherent Slough -Structure Exposed N/A -Texture (Ami-wound Skin Appearance) Scarring -Moisture (Ami-wound Skin Appearance No Abnormality ) -Temperature (Ami-wound Skin No Abnormality Appearance) (Pt Warm) -Tenderness on Palpation (Ami-wound No Skin Appearance) -Ulcer Cleansing Wound Cleanser -Foul Odor after Cleansing No -Anesthetic Used 4% Lidocaine Solution WC - Nurse 2 - General Ulcer CM Notes Start: 10/29/18 08:06 Freq: Status: Active Protocol: Activity Type Activity Date Activity User E-Sign Co-Sign Detail Recorded Client Recorded Date Recorded By Document 10/29/18 08:28 DL [id number] 10/29/18 08:33 DL 10/29/18 08:28 Wound Center Nurse 2 [Procedure/Treatment] -Time 08:30 -Correct Patient Yes -Correct Side, Site, Position Yes -Correct Procedure Yes -Procedure Performed Yes -Type of Procedure Debridement -Clinical Debridement Subcutaneous -Post Debridement Size (cm) - Length 2.0 -Post Debridement Size (cm) - Width 3.2 -Post Debridement Size (cm) - Depth 0.6 -Total Square Cm 6.40 -Wound/Ulcer Outcome Not Healed -Ulcer Cleansing Rinsed/ Irrigated with Saline -Foul Odor after Cleansing No -Bioengineered Tissue No -Bleeding Controlled with Pressure -Offloading No -Treatment Response Procedure Tolerated Well [See Physician Procedure note for Specifics] Pain Scale: 0-10 Numeric [Pain] -Is Patient Pain Free? Yes Musculoskeletal: Tenderness - tenderness distal BKA stump on anterior surface Neurological: Neuro grossly intact Psych/Mental Status: Normal Affect, Appropriate Debridement Note Post-Debridement Measurements/Treatment - Nurse 2 - General Ulcer CM Notes Start: 10/29/18 08:06 Freq: Status: Active Protocol: Activity Type Activity Date Activity User E-Sign Co-Sign Detail Recorded Client Recorded Date Recorded By Document 10/29/18 08:28 DL [id number] 10/29/18 08:33 DL 10/29/18 08:28 Wound Center Nurse 2 #5 L BKA stump -Time 08:30 -Correct Patient Yes -Correct Side, Site, Position Yes -Correct Procedure Yes -Procedure Performed Yes -Type of Procedure Debridement -Clinical Debridement Subcutaneous -Post Debridement Size (cm) - Length 2.0 -Post Debridement Size (cm) - Width 3.2 -Post Debridement Size (cm) - Depth 0.6 -Total Square Cm 6.40 -Wound/Ulcer Outcome Not Healed -Ulcer Cleansing Rinsed/ Irrigated with Saline -Foul Odor after Cleansing No -Bioengineered Tissue No -Bleeding Controlled with Pressure -Offloading No -Treatment Response Procedure Tolerated Well Pain Scale: 0-10 Numeric Is Patient Pain Free? Yes Wound debrided: Left BKA stump ulcer Laterality: Left Type of Debridement: Excisional debridement Anesthesia Used: 5% Lidocaine Gel Depth: Down to and including healthy tissue, in the subcutaneous layer Percentage of wound debrided: 100 Instrument Used: 7mm curette Tissue Removed: Subcutaneous tissue and slough Severity: Fat Layer Exposed Amount of bleeding with debridement: Mild Bleeding Controlled with: Pressure, Compression and gauze Patient tolerated procedure well Assessment/Plan Active Problems (Last Reviewed 08/10/18 @ 10:08 by Aleja Lutz) Tobacco use disorder (Chronic) Partial loss of skin graft (Chronic) 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) Pain of amputation stump of left lower extremity (Chronic) Assessment: 1. Nonhealing ulcer left BKA stump with recent surgical closure 05/25/18. 2. Pain left BKA stump. 3. MRSA. 4. 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 5. Smoker, he has started again. 6. 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 7. Early skin graft/flap compromise left BKA stump, (20% compromise). 8. s/p surgical preparation left BKA stump with excisional debridement nonhealing infected ulcer and complex secondary wound closure revision reconstruction with re-advancement muscle flap and bipedicle anterior leg fasciocutaneous advancement flap and STSG from the left flank (60 cm2). 9. PAD. Plan: Continue Collagen Hydrogel dressing changes daily. The skin graft shows good adherence and about 85% take and good vascular ingrowth. There is some mild compromise at the inferior edge of the skin graft (about 15% compromise). The stump is soft and swelling has resolved. The central aspect of the stump anteriorly shows some mild compromise (about 10%). After debridement, the underlying subcutaneous tissue continues to appear viable with no exposure of bone. With the mild skin graft/flap compromise (about 25% total), he started HBO treatments which would help salvage the compromised graft/flap. He tolerated the HBO treatments and has finished them. He has noticed some mild visual blurring early on that has stayed constant. He states he hasn't noticed it worsening. I told him to tell me as soon as he has noticed any worsening of his symptoms, at which time an evaluation by an Coater Operator would be done. Prealbumin from the hospital was 17.5. Encourage nutritional supplementation with protein to help the healing process. He has returned to work and is doing ok. Discussed with the patient that the presence of MRSA and Pseudomonas can be destructive to the surrounding tissue leading to suboptimal healing. When the Cipro was completed for the Pseudomonas, we applied for Epifix placental connective tissue graft placement. It was denied. Also with the patients history of vascular disease, we checked a duplex scan which showed decrease flow through left iliac through common femoral to profunda. Further evaluation as needed with CTA to define proximal. Left SFa occluded. He saw Dr. Armstrong on 10/17/18. He states that he tried to open up a blockage but was unsuccessful. Able to open some collateral vessels per the patient. Restarted him on Plavix. He is going back to Vascular surgeon for further treatment, unsure exactly what is planned. Also found out that he has started smoking again. Encouraged him to stop smoking as it may have deleterious effects on wound healing. He is at increased risk of having to revise his BKA into an AKA. He voiced understanding. Discussed further operative debridement and skin grafting. Will discuss it further after his Vascular Surgery evaluation. Followup one week. Renewed his Percocet (30) and Valium (20). OARRS report reviewed, no suspicious activitiy. Code Visit [id number]: [id number] Aleena subq tissue 20 sq cm/<
[2018-11-05 08:26] VITALS: RESP 16; TEMP 36.7; BMI 24.5
--- NOTE | 2018-11-05 22:34 | PN.PCM_ITS ---
Type of Wound Date of Service: 11/05/18 Chief Complaint: Nonhealing ulcer left BKA stump with recent surgical closure 05/25/18 and mild skin graft/flap compromise. History of Wound: Surgery 05/25/18 - 1. Surgical preparation left BKA stump with excisional debridement nonhealing infected ulcer. 2. Complex secondary wound closure revision reconstruction with re-advancement muscle flap and bipedicle anterior leg fasciocutaneous advancement flap and STSG from the left flank (60 cm2). Surgery 04/05/18 - 1. Surgical preparation left BKA stump with incision and drainage and excisional debridement nonhealing infected ulcer. 2. Partial ostectomy tibia for osteomyelitis. Wound care - Collagen Hydrogel. Operative culture - MRSA. Soft tissue from 04/05/18 surgery - negative. Bone from 04/05/18 surgery - negative. Pathology from 04/05/18 surgery - negative for ostemyelitis. He was discharged on Bactrim DS. He has since finished the Bactrim DS. He had another wound culture done on 06/18/18 which showed Pseudomonas aeroginosa. He was placed on Levaquin and fininshed them. On 08/06/18, another wound culture was done because of increased odor. It showed Pseudomonas aeroginosa and Anaerobic cocci. He was started on Cipro and Flagyl was added. He has finished them. Prealbumin from 05/26/18 was 17.5. Encourage nutritional supplementation with protein to help the healing process. MRI left BKA stump in 10/13 showed osteomyelitis. He changed his anticoagulation medication and stopped the Coumadin and started Eliquis. Today he denies fever. His appetite is good. With his early compromise to the skin graft/flap, he underwent HBO treatments to help salvage the compromised graft/flap and has finished them. He has noticed some mild visual blurring early on that has stayed constant. He states he hasn't noticed it worsening. I told him to tell me as soon as he has noticed any worsening of his symptoms, an evaluation by an Registered Nurse Float Pool would be done. Now that the Cipro was finished for the Pseudomonas, I applied for Epifix placental connective tissue graft. It was denied. With the patient's history of previous vascular disease, I ordered a duplex scan. It showed decreased flow through left iliac through common femoral to profunda. Further evaluation as needed with CTA to define proximal. Left SFa occluded. He was evaluated by Vascular Surgery on 10/17/18. He states he needs further vascular surgery. The realization of further surgery has made him depressed. Progress of Wound: Surgery 05/25/18 with mild skin graft/flap compromise, improved. - Physical Exam Vital Signs Temp Pulse Resp BP 98.0 F 79 16 116/68 11/05/18 08:26 10/29/18 08:07 11/05/18 08:26 10/29/18 08:07 Wound Measurements and Assessment WC - Nurse 1 - General Ulcer Measurement Start: 10/29/18 08:06 Freq: Status: Active Protocol: Activity Type Activity Date Activity User E-Sign Co-Sign Detail Recorded Client Recorded Date Recorded By Document 11/05/18 08:26 DV [id number] 11/05/18 08:38 DV 11/05/18 08:26 Wound Center Nurse 1 [Ulcer Assessment] #5 L BKA stump -Combined with other wound No -Photo Taken No -Epithelialization None Present -Tunneling No -Undermining/Tunneling No -Circular Undermining No -Classification - Thickness Full Thickness without Exposed Support Structure -Exudate Amt Large -Exudate Type Yellow/Green -Wound Margin Fibrotic Scar, Thickened Scar -Granulation Amt None Present (0 %) -Granulation Quality Hyper- granulation -Necrosis Amt Large (67-100%) -Structure Exposed None/Limited to Skin Breakdown -Texture (Ami-wound Skin Appearance) Assessed Localized Edema Scarring -Moisture (Ami-wound Skin Appearance Assessed ) Weeping -Color (Ami-wound Skin Appearance) Assessed Erythema -Temperature (Ami-wound Skin No Abnormality Appearance) (Pt Warm) -Tenderness on Palpation (Ami-wound Yes Skin Appearance) -Ulcer Cleansing Rinsed/ Irrigated with Saline -Foul Odor after Cleansing No -Anesthetic Used 4% Lidocaine Solution - Nurse 2 - General Ulcer CM Notes Start: 10/29/18 08:06 Freq: Status: Active Protocol: Activity Type Activity Date Activity User E-Sign Co-Sign Detail Recorded Client Recorded Date Recorded By Document 11/05/18 09:02 JF [id number] 11/05/18 09:07 JF 11/05/18 09:02 Wound Center Nurse 2 [Procedure/Treatment] -Time 09:02 -Correct Patient Yes -Correct Side, Site, Position Yes -Correct Procedure Yes -Procedure Performed Yes -Type of Procedure Debridement -Clinical Debridement Subcutaneous -Post Debridement Size (cm) - Length 2.5 -Post Debridement Size (cm) - Width 2.8 -Post Debridement Size (cm) - Depth 0.6 -Total Square Cm 7.00 -Wound/Ulcer Outcome Not Healed -Ulcer Cleansing Rinsed/ Irrigated with Saline -Foul Odor after Cleansing No -Bioengineered Tissue No -Bleeding Controlled with Pressure -Offloading No -Treatment Response Procedure Tolerated Well [See Physician Procedure note for Specifics] Pain Scale: 0-10 Numeric [Pain] -Is Patient Pain Free? Yes Debridement Note Post-Debridement Measurements/Treatment WC - Nurse 2 - General Ulcer CM Notes Start: 10/29/18 08:06 Freq: Status: Active Protocol: Activity Type Activity Date Activity User E-Sign Co-Sign Detail Recorded Client Recorded Date Recorded By Document 10/29/18 08:28 DL [id number] 10/29/18 08:33 DL Document 11/05/18 09:02 JF [id number] 11/05/18 09:07 JF 10/29/18 11/05/18 08:28 09:02 Wound Center Nurse 2 #5 L BKA stump -Time 08:30 09:02 -Correct Patient Yes Yes -Correct Side, Site, Position Yes Yes -Correct Procedure Yes Yes -Procedure Performed Yes Yes -Type of Procedure Debridement Debridement -Clinical Debridement Subcutaneous Subcutaneous -Post Debridement Size (cm) - Length 2.0 2.5 -Post Debridement Size (cm) - Width 3.2 2.8 -Post Debridement Size (cm) - Depth 0.6 0.6 -Total Square Cm 6.40 7.00 -Wound/Ulcer Outcome Not Healed Not Healed -Ulcer Cleansing Rinsed/ Rinsed/ Irrigated with Irrigated with Saline Saline -Foul Odor after Cleansing No No -Bioengineered Tissue No No -Bleeding Controlled with Pressure Pressure -Offloading No No -Treatment Response Procedure Procedure Tolerated Well Tolerated Well Pain Scale: 0-10 Numeric Is Patient Pain Free? Yes Yes Wound debrided: #5 Left BKA stump. Laterality: Left Wound Grade/Stage: 4. Type of Debridement: Excisional debridement Anesthesia Used: 4% Lidocaine Solution Depth: Down to and including healthy tissue, in the subcutaneous layer Percentage of wound debrided: 100 Instrument Used: 5mm curette Tissue Removed: subcutaneous tissue. Severity: Fat Layer Exposed Amount of bleeding with debridement: Mild Bleeding Controlled with: Pressure Patient tolerated procedure well Assessment/Plan Assessment: 1. Nonhealing ulcer left BKA stump with recent surgical closure 05/25/18. 2. Pain left BKA stump. 3. MRSA. 4. 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 5. Smoker, he has started again. 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 7. Early skin graft/flap compromise left BKA stump, (20% compromise). 8. s/p surgical preparation left BKA stump with excisional d ebridement nonhealing infected ulcer and complex secondary wound closure revision reconstruction with re-advancement muscle flap and bipedicle anterior leg fasciocutaneous advancement flap and STSG from the left flank (60 cm2). 9. PAD. Plan: Continue Collagen Hydrogel dressing changes daily. The skin graft shows good adherence and about 85% take and good vascular ingrowth. There is some mild compromise at the inferior edge of the skin graft (about 15% compromise). The stump is soft and swelling has resolved. The central aspect of the stump anteriorly shows some mild compromise (about 10%). After debridement, the underlying subcutaneous tissue continues to appear viable with no exposure of bone. With the mild skin graft/flap compromise (about 25% total), he started HBO treatments which would help salvage the compromised graft/flap. He tolerated the HBO treatments and has finished them. He has noticed some mild visual blurring early on that has stayed constant. He states he hasn't noticed it worsening. I told him to tell me as soon as he has noticed any worsening of his symptoms, at which time an evaluation by an Registered Nurse Float Pool would be done. Prealbumin from the hospital was 17.5. Encourage nutritional supplementation with protein to help the healing process. He has returned to work and is doing ok. Discussed with the patient that the presence of MRSA and Pseudomonas can be destructive to the surrounding tissue leading to suboptimal healing. When the Cipro was completed for the Pseudomonas, we applied for Epifix placental connective tissue graft placement. It was denied. Also with the patients history of vascular disease, we checked a duplex scan which showed decrease flow through left iliac through common femoral to profunda. Furher evaluation as needed with CTA to define proximal. Left SFa occluded. He was evaluated by Vascular Surgery on 10/17/18 who recommended further vascular surgery. Further workup is being done. Also found out that he has started smoking again. Encouraged him to stop smoking as it may have deleterious effects on wound healing. He is at increased risk of having to revise his BKA into an AKA. He voiced understanding. Discussed further operative debridement and skin grafting. Will discuss it further after his Vascular Surgery evaluation and treatment has been completed. He states he is feeling depressed because of the thought of further vascular surgery. Will start him on Zoloft. Followup one week. Plan: Continue Collagen Hydrogel dressing changes daily. The skin graft shows good adherence and about 85% take and good vascular ingrowth. There is some mild compromise at the inferior edge of the skin graft (about 15% compromise). The stump is soft and swelling has resolved. The central aspect of the stump anteriorly shows some mild compromise (about 10%). After debridement, the underlying subcutaneous tissue continues to appear viable with no exposure of bone. With the mild skin graft/flap compromise (about 25% total), he started HBO treatments which would help salvage the compromised graft/flap. He tolerated the HBO treatments and has finished them. He has noticed some mild visual blurring early on that has stayed constant. He states he hasn't noticed it worsening. I told him to tell me as soon as he has noticed any worsening of his symptoms, at which time an evaluation by an Registered Nurse Float Pool would be done. Prealbumin from the hospital was 17.5. Encourage nutritional supplementation with protein to help the healing process. He has returned to work and is doing ok. Discussed with the patient that the presence of MRSA and Pseudomonas can be destructive to the surrounding tissue leading to suboptimal healing. When the Cipro was completed for the Pseudomonas, we applied for Epifix placental connective tissue graft placement. It was denied. Also with the patients history of vascular disease, we checked a duplex scan which showed decrease flow through left iliac through common femoral to profunda. Furher evaluation as needed with CTA to define proximal. Left SFa occluded. Will set him up with a Vascular Surgery evaluation for possible angioplasty to improve blood flow to the stump to maximize healing. The appointment is on 10/17/18. Also found out that he has started smoking again. Encouraged him to stop smoking as it may have deleterious effects on wound healing. He is at increased risk of having to revise his BKA into an AKA. He voiced understanding. Renewed his Percocet for pain (30 tabs). Discussed further operative debridement and skin grafting. Will discuss it further after his Vascular Surgery evaluation. Followup one week.
[2018-11-12 08:21] VITALS: BP 130/80; PULSE 93; RESP 16; TEMP 36.8; BMI 24.5
--- NOTE | 2018-11-12 09:45 | PCM.WC.PN ---
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 Current Visit: No Code(s): T86.828 - Other complications of skin graft (allograft) (autograft) (2) Pain of amputation stump of left lower extremity Status: Chronic Current Visit: Yes Code(s): T87.89 - Other complications of amputation stump; M79.605 - Pain in left leg (3) Personal history of osteomyelitis Status: Chronic Current Visit: Yes Code(s): Z87.39 - Personal history of other diseases of the musculoskeletal system and connective tissue (4) Status post below knee amputation of left lower extremity Status: Chronic Current Visit: Yes Code(s): Z89.512 - Acquired absence of left leg below knee (5) Tobacco use disorder Status: Chronic Current Visit: Yes Code(s): F17.200 - Nicotine dependence, unspecified, uncomplicated Type of Wound Date of Service: 11/12/18 Chief Complaint: Nonhealing ulcer left BKA stump with recent surgical closure 05/25/18 and mild skin graft/flap compromise. History of Wound: Surgery 05/25/18 - 1. Surgical preparation left BKA stump with excisional debridement nonhealing infected ulcer. 2. Complex secondary wound closure revision reconstruction with re-advancement muscle flap and bipedicle anterior leg fasciocutaneous advancement flap and STSG from the left flank (60 cm2). Surgery 04/05/18 - 1. Surgical preparation left BKA stump with incision and drainage and excisional debridement nonhealing infected ulcer. 2. Partial ostectomy tibia for osteomyelitis. Wound care - Collagen Hydrogel. Operative culture - MRSA. Soft tissue from 04/05/18 surgery - negative. Bone from 04/05/18 surgery - negative. Pathology from 04/05/18 surgery - negative for ostemyelitis. He was discharged on Bactrim DS. He has since finished the Bactrim DS. He had another wound culture done on 06/18/18 which showed Pseudomonas aeroginosa. He was placed on Levaquin and fininshed them. On 08/06/18, another wound culture was done because of increased odor. It showed Pseudomonas aeroginosa and Anaerobic cocci. He was started on Cipro and Flagyl was added. He has finished them. Prealbumin from 05/26/18 was 17.5. Encourage nutritional supplementation with protein to help the healing process. MRI left BKA stump in 10/13 showed osteomyelitis. He changed his anticoagulation medication and stopped the Coumadin and started Eliquis. Today he denies fever. His appetite is good. With his early compromise to the skin graft/flap, he underwent HBO treatments to help salvage the compromised graft/flap and has finished them. He has noticed some mild visual blurring early on that has stayed constant. He states he hasn't noticed it worsening. I told him to tell me as soon as he has noticed any worsening of his symptoms, an evaluation by an [employer] would be done. Now that the Cipro was finished for the Pseudomonas, I applied for Epifix placental connective tissue graft. It was denied. With the patient's history of previous vascular disease, I ordered a duplex scan. It showed decreased flow through left iliac through common femoral to profunda. Further evaluation as needed with CTA to define proximal. Left SFa occluded. He was evaluated by Vascular Surgery on 10/17/18. He states he needs further vascular surgery. The realization of further surgery has made him depressed. Progress of Wound: Surgery 05/25/18 with mild skin graft/flap compromise, improved. - Physical Exam Vital Signs Temp Pulse Resp BP 98.2 F 93 16 130/80 H 11/12/18 08:21 11/12/18 08:21 11/12/18 08:21 11/12/18 08:21 General: Alert, Oriented x3, Cooperative HEENT: Atraumatic Oral: Moist Mucosa Lungs: Normal air movement Cardiovascular: Regular rate Extremities: No edema, Capillary Refill Less than 3 Seconds Skin: Ulcer/ Wound - Left BKA stump Wound Measurements and Assessment WC - Nurse 1 - General Ulcer Measurement Start: 10/29/18 08:06 Freq: Status: Active Protocol: Activity Type Activity Date Activity User E-Sign Co-Sign Detail Recorded Client Recorded Date Recorded By Document 11/12/18 08:21 [facility] [id number] 11/12/18 08:25 [facility] 11/12/18 08:21 Wound Center Nurse 1 [Ulcer Assessment] #5 L BKA stump -Combined with other wound No -Current Size (cm) - Length 0.9 -Current Size (cm) - Width 1.7 -Current Size (cm) - Depth 0.2 -Total Square Cm 1.53 -Photo Taken No -Epithelialization None Present -Tunneling No -Undermining/Tunneling No -Circular Undermining No -Exudate Amt Small -Exudate Type Serous -Wound Margin Flat & Intact -Granulation Amt Medium (34-66%) -Granulation Quality Red -Slough/Fibrin Yes -Necrosis Amt Medium (34-66%) -Necrotic Tissue Type Adherent Slough -Texture (Ami-wound Skin Appearance) Assessed Scarring -Moisture (Aim-wound Skin Appearance Assessed ) Dry/Scaly -Color (Ami-wound Skin Appearance) Assessed -Temperature (Ami-wound Skin No Abnormality Appearance) (Pt Warm) -Tenderness on Palpation (Ami-wound Yes Skin Appearance) -Ulcer Cleansing Rinsed/ Irrigated with Saline -Foul Odor after Cleansing No -Anesthetic Used 5% Lidocaine Gel WC - Nurse 2 - General Ulcer CM Notes Start: 10/29/18 08:06 Freq: Status: Active Protocol: Activity Type Activity Date Activity User E-Sign Co-Sign Detail Recorded Client Recorded Date Recorded By Document 11/12/18 08:54 [facility] [id number] 11/12/18 08:56 11/12/18 08:54 Wound Center Nurse 2 [Procedure/Treatment] -Time 08:54 -Correct Patient Yes -Correct Side, Site, Position Yes -Correct Procedure Yes -Procedure Performed Yes -Type of Procedure Debridement -Clinical Debridement Subcutaneous -Post Debridement Size (cm) - Length 2.3 -Post Debridement Size (cm) - Width 3.0 -Post Debridement Size (cm) - Depth 0.7 -Total Square Cm 6.90 -Wound/Ulcer Outcome Not Healed -Ulcer Cleansing Rinsed/ Irrigated with Saline -Foul Odor after Cleansing No -Bioengineered Tissue No -Bleeding Controlled with Pressure -Offloading No -Treatment Response Procedure Tolerated Well [See Physician Procedure note for Specifics] Pain Scale: 0-10 Numeric [Pain] -Is Patient Pain Free? Yes Musculoskeletal: No Tenderness to Palpation of Joints or Extremities Neurological: Neuro grossly intact Psych/Mental Status: Normal Affect, Appropriate Debridement Note Post-Debridement Measurements/Treatment - Nurse 2 - General Ulcer CM Notes Start: 10/29/18 08:06 Freq: Status: Active Protocol: Activity Type Activity Date Activity User E-Sign Co-Sign Detail Recorded Client Recorded Date Recorded By Document 10/29/18 08:28 DL [id number] 10/29/18 08:33 DL Document 11/05/18 09:02 JF [id number] 11/05/18 09:07 Document 11/12/18 08:54 [id number] 11/12/18 08:56 10/29/18 11/05/18 11/12/18 08:28 09:02 08:54 Wound Center Nurse 2 #5 L BKA stump -Time 08:30 09:02 08:54 -Correct Patient Yes Yes Yes -Correct Side, Site, Position Yes Yes Yes -Correct Procedure Yes Yes Yes -Procedure Performed Yes Yes Yes -Type of Procedure Debridement Debridement Debridement -Clinical Debridement Subcutaneous Subcutaneous Subcutaneous -Post Debridement Size (cm) - Length 2.0 2.5 2.3 -Post Debridement Size (cm) - Width 3.2 2.8 3.0 -Post Debridement Size (cm) - Depth 0.6 0.6 0.7 -Total Square Cm 6.40 7.00 6.90 -Wound/Ulcer Outcome Not Healed Not Healed Not Healed -Ulcer Cleansing Rinsed/ Rinsed/ Rinsed/ Irrigated with Irrigated with Irrigated with Saline Saline Saline -Foul Odor after Cleansing No No No -Bioengineered Tissue No No No -Bleeding Controlled with Pressure Pressure Pressure -Offloading No No No -Treatment Response Procedure Procedure Procedure Tolerated Well Tolerated Well Tolerated Well Pain Scale: 0-10 Numeric Is Patient Pain Free? Yes Yes Yes Wound debrided: Left BKA stump ulcer Laterality: Left Type of Debridement: Excisional debridement Anesthesia Used: 5% Lidocaine Gel Depth: Down to and including healthy tissue, in the subcutaneous layer Percentage of wound debrided: 100 Instrument Used: 5mm curette Tissue Removed: subcutaneous tissue and slough Severity: Fat Layer Exposed Amount of bleeding with debridement: Mild Bleeding Controlled with: Pressure Patient tolerated procedure well Assessment/Plan Active Problems (Last Reviewed 08/10/18 @ 10:08 by Aleja Lutz) Tobacco use disorder (Chronic) Personal history of osteomyelitis (Chronic) 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) Pain of amputation stump of left lower extremity (Chronic) Assessment: 1. Nonhealing ulcer left BKA stump with recent surgical closure 05/25/18. 2. Pain left BKA stump. 3. MRSA. 4. 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 5. Smoker, he has started again. 6. residential use of anticoagulation. 7. Early skin graft/flap compromise left BKA stump, (20% compromise). 8. s/p surgical preparation left BKA stump with excisional debridement nonhealing infected ulcer and complex secondary wound closure revision reconstruction with re-advancement muscle flap and bipedicle anterior leg fasciocutaneous advancement flap and STSG from the left flank (60 cm2). 9. PAD. Plan: Continue Collagen Hydrogel dressing changes daily. The skin graft shows good adherence and about 85% take and good vascular ingrowth. There is some mild compromise at the inferior edge of the skin graft (about 15% compromise). The stump is soft and swelling has resolved. The central aspect of the stump anteriorly shows some mild compromise (about 10%). After debridement, the underlying subcutaneous tissue continues to appear viable with no exposure of bone. With the mild skin graft/flap compromise (about 25% total), he started HBO treatments which would help salvage the compromised graft/flap. He tolerated the HBO treatments and has finished them. He has noticed some mild visual blurring early on that has stayed constant. He states he hasn't noticed it worsening. I told him to tell me as soon as he has noticed any worsening of his symptoms, at which time an evaluation by an [employer] would be done. Prealbumin from the hospital was 17.5. Encourage nutritional supplementation with protein to help the healing process. He has returned to work and is doing ok. Discussed with the patient that the presence of MRSA and Pseudomonas can be destructive to the surrounding tissue leading to suboptimal healing. When the Cipro was completed for the Pseudomonas, we applied for Epifix placental connective tissue graft placement. It was denied. Also with the patients history of vascular disease, we checked a duplex scan which showed decrease flow through left iliac through common femoral to profunda. Further evaluation as needed with CTA to define proximal. Left SFa occluded. He was evaluated by Vascular Surgery on 10/17/18 who recommended further vascular surgery. Further workup is being done. He meets with cardiology for cardiac clearance on 11/22/18. Also found out that he has started smoking again. Encouraged him to stop smoking as it may have deleterious effects on wound healing. He is at increased risk of having to revise his BKA into an AKA. He voiced understanding. Discussed further operative debridement and skin grafting. Will discuss it further after his Vascular Surgery evaluation and treatment has been completed. He states he is feeling depressed because of the thought of further vascular surgery. Will start him on Zoloft, he has not started the Zoloft yet. Followup one week. Plan: Continue Collagen Hydrogel dressing changes daily. The skin graft shows good adherence and about 85% take and good vascular ingrowth. There is some mild compromise at the inferior edge of the skin graft (about 15% compromise). The stump is soft and swelling has resolved. The central aspect of the stump anteriorly shows some mild compromise (about 10%). After debridement, the underlying subcutaneous tissue continues to appear viable with no exposure of bone. With the mild skin graft/flap compromise (about 25% total), he started HBO treatments which would help salvage the compromised graft/flap. He tolerated the HBO treatments and has finished them. He has noticed some mild visual blurring early on that has stayed constant. He states he hasn't noticed it worsening. I told him to tell me as soon as he has noticed any worsening of his symptoms, at which time an evaluation by an [employer] would be done. Prealbumin from the hospital was 17.5. Encourage nutritional supplementation with protein to help the healing process. He has returned to work and is doing ok. Discussed with the patient that the presence of MRSA and Pseudomonas can be destructive to the surrounding tissue leading to suboptimal healing. When the Cipro was completed for the Pseudomonas, we applied for Epifix placental connective tissue graft placement. It was denied. Also with the patients history of vascular disease, we checked a duplex scan which showed decrease flow through left iliac through common femoral to profunda. Furher evaluation as needed with CTA to define proximal. Left SFa occluded. Will set him up with a Vascular Surgery evaluation for possible angioplasty to improve blood flow to the stump to maximize healing. The appointment is on 10/17/18. Also found out that he has started smoking again. Encouraged him to stop smoking as it may have deleterious effects on wound healing. He is at increased risk of having to revise his BKA into an AKA. He voiced understanding. Discussed further operative debridement and skin grafting. Will discuss it further after his Vascular Surgery evaluation. Followup one week. Code Visit [id number]: 10280 Aleena subq tissue 20 sq cm/<
[2018-11-19 08:13] VITALS: BP 132/88; PULSE 90; RESP 16; TEMP 36.6; BMI 24.5
--- NOTE | 2018-11-19 23:20 | PCM.WC.PN ---
Type of Wound Date of Service: 11/19/18 Chief Complaint: Nonhealing ulcer left BKA stump with recent surgical closure 05/25/18 and mild skin graft/flap compromise. History of Wound: Surgery 05/25/18 - 1. Surgical preparation left BKA stump with excisional debridement nonhealing infected ulcer. 2. Complex secondary wound closure revision reconstruction with re-advancement muscle flap and bipedicle anterior leg fasciocutaneous advancement flap and STSG from the left flank (60 cm2). Surgery 04/05/18 - 1. Surgical preparation left BKA stump with incision and drainage and excisional debridement nonhealing infected ulcer. 2. Partial ostectomy tibia for osteomyelitis. Wound care - Collagen Hydrogel. Operative culture - MRSA. Soft tissue from 04/05/18 surgery - negative. Bone from 04/05/18 surgery - negative. Pathology from 04/05/18 surgery - negative for ostemyelitis. He was discharged on Bactrim DS. He has since finished the Bactrim DS. He had another wound culture done on 06/18/18 which showed Pseudomonas aeroginosa. He was placed on Levaquin and fininshed them. On 08/06/18, another wound culture was done because of increased odor. It showed Pseudomonas aeroginosa and Anaerobic cocci. He was started on Cipro and Flagyl was added. He has finished them. Prealbumin from 05/26/18 was 17.5. Encourage nutritional supplementation with protein to help the healing process. MRI left BKA stump in 10/13 showed osteomyelitis. He changed his anticoagulation medication and stopped the Coumadin and started Eliquis. Today he denies fever. His appetite is good. With his early compromise to the skin graft/flap, he underwent HBO treatments to help salvage the compromised graft/flap and has finished them. He has noticed some mild visual blurring early on that has stayed constant. He states he hasn't noticed it worsening. I told him to tell me as soon as he has noticed any worsening of his symptoms, an evaluation by an Button Machine Operator would be done. Now that the Cipro was finished for the Pseudomonas, I applied for Epifix placental connective tissue graft. It was denied. With the patient's history of previous vascular disease, I ordered a duplex scan. It showed decreased flow through left iliac through common femoral to profunda. Further evaluation as needed with CTA to define proximal. Left SFa occluded. He was evaluated by Vascular Surgery on 10/17/18. He states he needs further vascular surgery. He is getting Vascular Surgery preop workup. The realization of further surgery has made him depressed. He was placed on Zoloft and is feeling a little better. Progress of Wound: Surgery 05/25/18 with mild skin graft/flap compromise, improved. - Physical Exam Vital Signs Temp Pulse Resp BP 97.8 F 90 16 132/88 H 11/19/18 08:13 11/19/18 08:13 11/19/18 08:13 11/19/18 08:13 Wound Measurements and Assessment WC - Nurse 1 - General Ulcer Measurement Start: 10/29/18 08:06 Freq: Status: Active Protocol: Activity Type Activity Date Activity User E-Sign Co-Sign Detail Recorded Client Recorded Date Recorded By Document 11/19/18 08:13 MW [id number] 11/19/18 08:16 MW 11/19/18 08:13 Wound Center Nurse 1 [Ulcer Assessment] #5 L BKA stump -Combined with other wound No -Current Size (cm) - Length 1.3 -Current Size (cm) - Width 3.2 -Current Size (cm) - Depth 0.3 -Total Square Cm 4.16 -Date of Last Picture (Recall this 11/19/18 field) -Photo Taken Yes -Epithelialization Small 1-33% -Tunneling No -Undermining/Tunneling No -Circular Undermining No -Exudate Amt Small -Exudate Type Serous -Wound Margin Flat & Intact -Granulation Amt Small (1-33%) -Granulation Quality Pale -Slough/Fibrin Yes -Necrosis Amt Large (67-100%) -Necrotic Tissue Type Adherent Slough -Structure Exposed N/A -Texture (Ami-wound Skin Appearance) Assessed, Scarring -Moisture (Ami-wound Skin Appearance Assessed,Dry/ ) Scaly -Color (Ami-wound Skin Appearance) No Abnormality, Assessed -Temperature (Ami-wound Skin No Abnormality Appearance) (Pt Warm) -Tenderness on Palpation (Ami-wound No Skin Appearance) -Ulcer Cleansing Rinsed/ Irrigated with Saline -Foul Odor after Cleansing No -Anesthetic Used 4% Lidocaine Solution [Edema Assessment] -Lower Limb Edema Present No WC - Nurse 2 - General Ulcer CM Notes Start: 10/29/18 08:06 Freq: Status: Active Protocol: Activity Type Activity Date Activity User E-Sign Co-Sign Detail Recorded Client Recorded Date Recorded By Document 11/19/18 08:29 [id number] 11/19/18 08:30 11/19/18 08:29 Wound Center Nurse 2 [Procedure/Treatment] #5 L BKA stump -Time 08:29 -Correct Patient Yes -Correct Side, Site, Position Yes -Correct Procedure Yes -Procedure Performed Yes -Type of Procedure Debridement -Clinical Debridement Subcutaneous -Post Debridement Size (cm) - Length 1.3 -Post Debridement Size (cm) - Width 3.3 -Post Debridement Size (cm) - Depth 0.3 -Total Square Cm 4.29 -Wound/Ulcer Outcome Not Healed -Ulcer Cleansing Rinsed/ Irrigated with Saline -Foul Odor after Cleansing No -Bioengineered Tissue No -Bleeding Controlled with Pressure -Offloading No -Treatment Response Procedure Tolerated Well [See Physician Procedure note for Specifics] Pain Scale: 0-10 Numeric [Pain] -Is Patient Pain Free? Yes Debridement Note Post-Debridement Measurements/Treatment WC - Nurse 2 - General Ulcer CM Notes Start: 10/29/18 08:06 Freq: Status: Active Protocol: Activity Type Activity Date Activity User E-Sign Co-Sign Detail Recorded Client Recorded Date Recorded By Document 10/29/18 08:28 DL [id number] 10/29/18 08:33 DL Document 11/05/18 09:02 JF [id number] 11/05/18 09:07 JF Document 11/12/18 08:54 [id number] 11/12/18 08:56 JF Document 11/19/18 08:29 [id number] 11/19/18 08:30 10/29/18 11/05/18 11/12/18 08:28 09:02 08:54 Wound Center Nurse 2 #5 L BKA stump -Time 08:30 09:02 08:54 -Correct Patient Yes Yes Yes -Correct Side, Site, Position Yes Yes Yes -Correct Procedure Yes Yes Yes -Procedure Performed Yes Yes Yes -Type of Procedure Debridement Debridement Debridement -Clinical Debridement Subcutaneous Subcutaneous Subcutaneous -Post Debridement Size (cm) - Length 2.0 2.5 2.3 -Post Debridement Size (cm) - Width 3.2 2.8 3.0 -Post Debridement Size (cm) - Depth 0.6 0.6 0.7 -Total Square Cm 6.40 7.00 6.90 -Wound/Ulcer Outcome Not Healed Not Healed Not Healed -Ulcer Cleansing Rinsed/ Rinsed/ Rinsed/ Irrigated with Irrigated with Irrigated with Saline Saline Saline -Foul Odor after Cleansing No No No -Bioengineered Tissue No No No -Bleeding Controlled with Pressure Pressure Pressure -Offloading No No No -Treatment Response Procedure Procedure Procedure Tolerated Well Tolerated Well Tolerated Well Pain Scale: 0-10 Numeric Is Patient Pain Free? Yes Yes Yes 11/19/18 08:29 Wound Center Nurse 2 #5 L BKA stump -Time 08:29 -Correct Patient Yes -Correct Side, Site, Position Yes -Correct Procedure Yes -Procedure Performed Yes -Type of Procedure Debridement -Clinical Debridement Subcutaneous -Post Debridement Size (cm) - Length 1.3 -Post Debridement Size (cm) - Width 3.3 -Post Debridement Size (cm) - Depth 0.3 -Total Square Cm 4.29 -Wound/Ulcer Outcome Not Healed -Ulcer Cleansing Rinsed/ Irrigated with Saline -Foul Odor after Cleansing No -Bioengineered Tissue No -Bleeding Controlled with Pressure -Offloading No -Treatment Response Procedure Tolerated Well Pain Scale: 0-10 Numeric Is Patient Pain Free? Yes Wound debrided: #5 Left BKA stump. Laterality: Left Wound Grade/Stage: 4. Type of Debridement: Excisional debridement Anesthesia Used: 4% Lidocaine Solution Depth: Down to and including healthy tissue, in the subcutaneous layer Percentage of wound debrided: 100 Instrument Used: 5mm curette Tissue Removed: subcutaneous tissue. Severity: Fat Layer Exposed Amount of bleeding with debridement: Mild Bleeding Controlled with: Pressure Patient tolerated procedure well Assessment/Plan Assessment: 1. Nonhealing ulcer left BKA stump with recent surgical closure 05/25/18. 2. Pain left BKA stump. 3. MRSA. 4. 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 5. Smoker, he has started again. 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 7. Early skin graft/flap compromise left BKA stump, (20% compromise). 8. s/p surgical preparation left BKA stump with excisional debridement nonhealing infected ulcer and complex secondary wound closure revision reconstruction with re-advancement muscle flap and bipedicle anterior leg fasciocutaneous advancement flap and STSG from the left flank (60 cm2). 9. PAD. Plan: Continue Collagen Hydrogel dressing changes daily. The skin graft shows good adherence and about 85% take and good vascular ingrowth. There is some mild compromise at the inferior edge of the skin graft (about 15% compromise). The stump is soft and swelling has resolved. The central aspect of the stump anteriorly shows some mild compromise (about 10%). After debridement, the underlying subcutaneous tissue continues to appear viable with no exposure of bone. With the mild skin graft/flap compromise (about 25% total), he started HBO treatments which would help salvage the compromised graft/flap. He tolerated the HBO treatments and has finished them. He has noticed some mild visual blurring early on that has stayed constant. He states he hasn't noticed it worsening. I told him to tell me as soon as he has noticed any worsening of his symptoms, at which time an evaluation by an Button Machine Operator would be done. Prealbumin from the hospital was 17.5. Encourage nutritional supplementation with protein to help the healing process. He has returned to work and is doing ok. Discussed with the patient that the presence of MRSA and Pseudomonas can be destructive to the surrounding tissue leading to suboptimal healing. When the Cipro was completed for the Pseudomonas, we applied for Epifix placental connective tissue graft placement. It was denied. Also with the patients history of vascular disease, we checked a duplex scan which showed decrease flow through left iliac through common femoral to profunda. Further evaluation as needed with CTA to define proximal. Left SFa occluded. He was evaluated by Vascular Surgery on 10/17/18 who recommended further vascular surgery. Further workup is being done. He meets with cardiology for cardiac clearance on 11/22/18. Also found out that he has started smoking again. Encouraged him to stop smoking as it may have deleterious effects on wound healing. He is at increased risk of having to revise his BKA into an AKA. He voiced understanding. Discussed further operative debridement and skin grafting. Will discuss it further after his Vascular Surgery evaluation and treatment has been completed. He states he is feeling depressed because of the thought of further vascular surgery. He was started on Zoloft, and he feels a little better. Renewed his Percocet for pain (30 tabs) and his Valium for spasm (20 tabs). Followup one week.
== END 2018-11-25 23:59 ==
LOC: WC 08:00
PROVIDERS: Family Provider Internal Medicine; PCP Internal Medicine; Visit Provider Surgery
DX: T86.828 Other complications of skin graft (allograft) (autograft) (principal); Y83.8 Other surgical procedures as the cause of abnormal reaction of the patient, or of later complication, without mention of misadventure at the time of the procedure; Z87.39 Personal history of other diseases of the musculoskeletal system and connective tissue; T87.81 Dehiscence of amputation stump; Z89.512 Acquired absence of left leg below knee; Z86.14 Personal history of Methicillin resistant Staphylococcus aureus infection; F17.200 Nicotine dependence, unspecified, uncomplicated; I73.9 Peripheral vascular disease, unspecified
CPT/HCPCS: 11042

== ENCOUNTER 2018-12-17 08:00 | Outpatient (RCR) | payer OTHER, SELFPAY ==
[2018-11-26 00:32] VITALS: BP 132/88; PULSE 90; RESP 16; TEMP 36.6
[2018-11-26 08:15] VITALS: BP 129/92; PULSE 91; RESP 16; TEMP 36.5; BMI 24.5
--- NOTE | 2018-11-26 12:05 | PCM.WC.PN ---
Type of Wound Date of Service: 11/26/18 Chief Complaint: Nonhealing ulcer left BKA stump with recent surgical closure 05/25/18 and mild skin graft/flap compromise. History of Wound: Surgery 05/25/18 - 1. Surgical preparation left BKA stump with excisional debridement nonhealing infected ulcer. 2. Complex secondary wound closure revision reconstruction with re-advancement muscle flap and bipedicle anterior leg fasciocutaneous advancement flap and STSG from the left flank (60 cm2). Surgery 04/05/18 - 1. Surgical preparation left BKA stump with incision and drainage and excisional debridement nonhealing infected ulcer. 2. Partial ostectomy tibia for osteomyelitis. Wound care - Collagen Hydrogel. Operative culture - MRSA. Soft tissue from 04/05/18 surgery - negative. Bone from 04/05/18 surgery - negative. Pathology from 04/05/18 surgery - negative for ostemyelitis. He was discharged on Bactrim DS. He has since finished the Bactrim DS. He had another wound culture done on 06/18/18 which showed Pseudomonas aeroginosa. He was placed on Levaquin and fininshed them. On 08/06/18, another wound culture was done because of increased odor. It showed Pseudomonas aeroginosa and Anaerobic cocci. He was started on Cipro and Flagyl was added. He has finished them. Prealbumin from 05/26/18 was 17.5. Encourage nutritional supplementation with protein to help the healing process. MRI left BKA stump in 10/13 showed osteomyelitis. He changed his anticoagulation medication and stopped the Coumadin and started Eliquis. Today he denies fever. His appetite is good. With his early compromise to the skin graft/flap, he underwent HBO treatments to help salvage the compromised graft/flap and has finished them. He has noticed some mild visual blurring early on that has stayed constant. He states he hasn't noticed it worsening. I told him to tell me as soon as he has noticed any worsening of his symptoms, an evaluation by an Commissioned Security Officer would be done. Now that the Cipro was finished for the Pseudomonas, I applied for Epifix placental connective tissue graft. It was denied. With the patient's history of previous vascular disease, I ordered a duplex scan. It showed decreased flow through left iliac through common femoral to profunda. Further evaluation as needed with CTA to define proximal. Left SFa occluded. He was evaluated by Vascular Surgery on 10/17/18. He states he needs further vascular surgery. The Vascular Surgery has been put on hold because he has lost his insurance. He is tolerating the Zolof for his depression. Progress of Wound: Surgery 05/25/18 with mild skin graft/flap compromise, improved. - Physical Exam Vital Signs Temp Pulse Resp BP 97.7 F L 91 16 129/92 H 11/26/18 08:15 11/26/18 08:15 11/26/18 08:15 11/26/18 08:15 Debridement Note Post-Debridement Measurements/Treatment WC - Nurse 2 - General Ulcer CM Notes Start: 11/26/18 08:12 Freq: Status: Active Protocol: Activity Type Activity Date Activity User E-Sign Co-Sign Detail Recorded Client Recorded Date Recorded By Document 11/26/18 08:24 [id number] 11/26/18 08:25 11/26/18 08:24 Wound Center Nurse 2 #5 L BKA stump -Time 08:24 -Correct Patient Yes -Correct Side, Site, Position Yes -Correct Procedure Yes -Procedure Performed Yes -Type of Procedure Debridement -Clinical Debridement Subcutaneous -Post Debridement Size (cm) - Length 1.5 -Post Debridement Size (cm) - Width 1.6 -Post Debridement Size (cm) - Depth 0.3 -Total Square Cm 2.40 -Wound/Ulcer Outcome Not Healed -Ulcer Cleansing Rinsed/ Irrigated with Saline -Foul Odor after Cleansing No -Bioengineered Tissue No -Bleeding Controlled with Pressure -Offloading No -Treatment Response Procedure Tolerated Well Pain Scale: 0-10 Numeric Is Patient Pain Free? Yes Wound debrided: #5 Left BKA stump. Laterality: Left Wound Grade/Stage: 4. Type of Debridement: Excisional debridement Anesthesia Used: 4% Lidocaine Solution Depth: Down to and including healthy tissue, in the subcutaneous layer Percentage of wound debrided: 100 Instrument Used: 5mm curette Tissue Removed: subcutaneous tissue. Severity: Fat Layer Exposed Amount of bleeding with debridement: Mild Bleeding Controlled with: Pressure Patient tolerated procedure well Assessment/Plan Assessment: 1. Nonhealing ulcer left BKA stump with recent surgical closure 05/25/18. 2. Pain left BKA stump. 3. MRSA. 4. 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 5. Smoker, he has started again. 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 7. Early skin graft/flap compromise left BKA stump, (20% compromise). 8. s/p surgical preparation left BKA stump with excisional debridement nonhealing infected ulcer and complex secondary wound closure revision reconstruction with re-advancement muscle flap and bipedicle anterior leg fasciocutaneous advancement flap and STSG from the left flank (60 cm2). 9. PAD. Plan: Continue Collagen Hydrogel dressing changes daily. The skin graft shows good adherence and about 85% take and good vascular ingrowth. There is some mild compromise at the inferior edge of the skin graft (about 15% compromise). The stump is soft and swelling has resolved. The central aspect of the stump anteriorly shows some mild compromise (about 10%). After debridement, the underlying subcutaneous tissue continues to appear viable with no exposure of bone. With the mild skin graft/flap compromise (about 25% total), he started HBO treatments which would help salvage the compromised graft/flap. He tolerated the HBO treatments and has finished them. He has noticed some mild visual blurring early on that has stayed constant. He states he hasn't noticed it worsening. I told him to tell me as soon as he has noticed any worsening of his symptoms, at which time an evaluation by an Commissioned Security Officer would be done. Prealbumin from the hospital was 17.5. Encourage nutritional supplementation with protein to help the healing process. He has returned to work and is doing ok. Discussed with the patient that the presence of MRSA and Pseudomonas can be destructive to the surrounding tissue leading to suboptimal healing. When the Cipro was completed for the Pseudomonas, we applied for Epifix placental connective tissue graft placement. It was denied. Also with the patients history of vascular disease, we checked a duplex scan which showed decrease flow through left iliac through common femoral to profunda. Further evaluation as needed with CTA to define proximal. Left SFa occluded. He was evaluated by Vascular Surgery on 10/17/18 who recommended further vascular surgery. His Vascular Surgery is on hold because he lost his insurance. Also found out that he has started smoking again. Encouraged him to stop smoking as it may have deleterious effects on wound healing. He is at increased risk of having to revise his BKA into an AKA. He voiced understanding. Discussed further operative debridement and skin grafting. That is on hold until the Vascular Surgery and his insurance situation is worked out. I am concerned that if I proceed with the debridement and skin grafting, the graft will struggle to heal and become compromised. HBO treatments would help that compromised graft but would not be able to get the HBO treatments because of his insurance situation. Followup one week.
[2018-12-03 08:14] VITALS: BP 130/91; PULSE 91; RESP 18; TEMP 36.4; BMI 24.5
--- NOTE | 2018-12-03 12:41 | PN.PCM_ITS ---
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 Code(s): T86.828 - Other complications of skin graft (allograft) (autograft) (3) Pain of amputation stump of left lower extremity Status: Chronic Code(s): T87.89 - Other complications of amputation stump; M79.605 - Pain in left leg (4) Personal history of osteomyelitis Status: Chronic Code(s): Z87.39 - Personal history of other diseases of the musculoskeletal system and connective tissue (5) Status post below knee amputation of left lower extremity Status: Chronic Code(s): Z89.512 - Acquired absence of left leg below knee (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 History of Wound: Surgery 05/25/18 - 1. Surgical preparation left BKA stump with excisional debridement nonhealing infected ulcer. 2. Complex secondary wound closure revision reconstruction with re-advancement muscle flap and bipedicle anterior leg fasciocutaneous advancement flap and STSG from the left flank (60 cm2). Surgery 04/05/18 - 1. Surgical preparation left BKA stump with incision and drainage and excisional debridement nonhealing infected ulcer. 2. Partial ostectomy tibia for osteomyelitis. Wound care - Collagen Hydrogel. Operative culture - MRSA. Soft tissue from 04/05/18 surgery - negative. Bone from 04/05/18 surgery - negative. Pathology from 04/05/18 surgery - negative for ostemyelitis. He was discharged on Bactrim DS. He has since finished the Bactrim DS. He had another wound culture done on 06/18/18 which showed Pseudomonas aeroginosa. He was placed on Levaquin and fininshed them. On 08/06/18, another wound culture was done because of increased odor. It showed Pseudomonas aeroginosa and Anaerobic cocci. He was started on Cipro and Flagyl was added. He has finished them. Prealbumin from 05/26/18 was 17.5. Encourage nutritional supplementation with protein to help the healing process. MRI left BKA stump in 10/13 showed osteomyelitis. He changed his anticoagulation medication and stopped the Coumadin and started Eliquis. Today he denies fever. His appetite is good. With his early compromise to the skin graft/flap, he underwent HBO treatments to help salvage the compromised graft/flap and has finished them. He has noticed some mild visual blurring early on that has stayed constant. He states he hasn't noticed it worsening. I told him to tell me as soon as he has noticed any worsening of his symptoms, an evaluation by an Roaster Operator would be done. Now that the Cipro was finished for the Pseudomonas, I applied for Epifix placental connective tissue graft. It was denied. With the patient's history of previous vascular disease, I ordered a duplex scan. It showed decreased flow through left iliac through common femoral to profunda. Further evaluation as needed with CTA to define proximal. Left SFa occluded. He was evaluated by Vascular Surgery on 10/17/18. He states he needs further vascular surgery. The realization of further surgery has made him depressed. Progress of Wound: Surgery 05/25/18 with mild skin graft/flap compromise, improved. - Physical Exam Vital Signs Temp Pulse Resp BP 97.5 F L 91 18 130/91 H 12/03/18 08:14 12/03/18 08:14 12/03/18 08:14 12/03/18 08:14 General: Alert, Oriented x3, Cooperative HEENT: Atraumatic Oral: Moist Mucosa Lungs: Normal air movement Cardiovascular: Regular rate Extremities: Capillary Refill Less than 3 Seconds, Tenderness Skin: Ulcer/ Wound - Left anterior BKA stump Wound Measurements and Assessment WC - Nurse 1 - General Ulcer Measurement Start: 11/26/18 08:12 Freq: Status: Active Protocol: Activity Type Activity Date Activity User E-Sign Co-Sign Detail Recorded Client Recorded Date Recorded By Document 12/03/18 08:14 MW [id number] 12/03/18 08:17 MW 12/03/18 08:14 Wound Center Nurse 1 [Ulcer Assessment] #5 L BKA stump -Combined with other wound No -Current Size (cm) - Length 1.0 -Current Size (cm) - Width 1.5 -Current Size (cm) - Depth 0.2 -Total Square Cm 1.50 -Photo Taken No -Epithelialization Small 1-33% -Tunneling No -Undermining/Tunneling No -Circular Undermining No -Exudate Amt None Present -Wound Margin Flat & Intact -Granulation Amt None Present (0 %) -Granulation Quality N/A -Slough/Fibrin Yes -Necrosis Amt Large (67-100%) -Necrotic Tissue Type Adherent Slough -Structure Exposed N/A -Texture (Ami-wound Skin Appearance) Assessed, Scarring -Moisture (Ami-wound Skin Appearance Assessed,Dry/ ) Scaly -Color (Ami-wound Skin Appearance) No Abnormality, Assessed -Temperature (Ami-wound Skin No Abnormality Appearance) (Pt Warm) -Tenderness on Palpation (Ami-wound No Skin Appearance) -Ulcer Cleansing Rinsed/ Irrigated with Saline -Foul Odor after Cleansing No -Anesthetic Used 4% Lidocaine Solution [Edema Assessment] -Lower Limb Edema Present No WC - Nurse 2 - General Ulcer CM Notes Start: 11/26/18 08:12 Freq: Status: Active Protocol: Activity Type Activity Date Activity User E-Sign Co-Sign Detail Recorded Client Recorded Date Recorded By Document 12/03/18 08:27 FLAVIA [id number] 12/03/18 08:31 FLAVIA 12/03/18 08:27 Wound Center Nurse 2 [Procedure/Treatment] #5 L BKA stump -Time 08:27 -Correct Patient Yes -Correct Side, Site, Position Yes -Correct Procedure Yes -Procedure Performed Yes -Type of Procedure Debridement -Clinical Debridement Subcutaneous -Post Debridement Size (cm) - Length 1.3 -Post Debridement Size (cm) - Width 1.7 -Post Debridement Size (cm) - Depth 0.2 -Total Square Cm 2.21 -Wound/Ulcer Outcome Not Healed -Ulcer Cleansing Rinsed/ Irrigated with Saline -Foul Odor after Cleansing No -Bioengineered Tissue No -Bleeding Controlled with Pressure -Offloading No -Treatment Response Procedure Tolerated Well [See Physician Procedure note for Specifics] Pain Scale: 0-10 Numeric [Pain] -Is Patient Pain Free? Yes Musculoskeletal: Tenderness - left BKA stump Neurological: Neuro grossly intact Psych/Mental Status: Normal Affect, Appropriate Debridement Note Post-Debridement Measurements/Treatment - Nurse 2 - General Ulcer CM Notes Start: 11/26/18 08:12 Freq: Status: Active Protocol: Activity Type Activity Date Activity User E-Sign Co-Sign Detail Recorded Client Recorded Date Recorded By Document 11/26/18 08:24 [id number] 11/26/18 08:25 Document 12/03/18 08:27 [id number] 12/03/18 08:31 11/26/18 12/03/18 08:24 08:27 Wound Center Nurse 2 #5 L BKA stump -Time 08:24 08:27 -Correct Patient Yes Yes -Correct Side, Site, Position Yes Yes -Correct Procedure Yes Yes -Procedure Performed Yes Yes -Type of Procedure Debridement Debridement -Clinical Debridement Subcutaneous Subcutaneous -Post Debridement Size (cm) - Length 1.5 1.3 -Post Debridement Size (cm) - Width 1.6 1.7 -Post Debridement Size (cm) - Depth 0.3 0.2 -Total Square Cm 2.40 2.21 -Wound/Ulcer Outcome Not Healed Not Healed -Ulcer Cleansing Rinsed/ Rinsed/ Irrigated with Irrigated with Saline Saline -Foul Odor after Cleansing No No -Bioengineered Tissue No No -Bleeding Controlled with Pressure Pressure -Offloading No No -Treatment Response Procedure Procedure Tolerated Well Tolerated Well Pain Scale: 0-10 Numeric Is Patient Pain Free? Yes Yes Wound debrided: Left BKA Laterality: Left Type of Debridement: Excisional debridement Anesthesia Used: 5% Lidocaine Gel Depth: Down to and including healthy tissue, in the subcutaneous layer Percentage of wound debrided: 100 Instrument Used: 5mm curette Tissue Removed: Subcutaneous tissue and slough Severity: Fat Layer Exposed Amount of bleeding with debridement: Mild Bleeding Controlled with: Compression and gauze Patient tolerated procedure well Assessment/Plan Assessment: 1. Nonhealing ulcer left BKA stump with recent surgical closure 05/25/18. 2. Pain left BKA stump. 3. MRSA. 4. 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 5. Smoker, he has started again. 6. buttermaker use of anticoagulation. 7. Early skin graft/flap compromise left BKA stump, (20% compromise). 8. s/p surgical preparation left BKA stump with excisional debridement nonhealing infected ulcer and complex secondary wound closure revision reconstruction with re-advancement muscle flap and bipedicle anterior leg fasciocutaneous advancement flap and STSG from the left flank (60 cm2). 9. PAD. Plan: Continue Collagen Hydrogel dressing changes daily. The skin graft shows good adherence and about 85% take and good vascular ingrowth. There is some mild compromise at the inferior edge of the skin graft (about 15% compromise). The stump is soft and swelling has resolved. The central aspect of the stump anteriorly shows some mild compromise (about 10%). After debridement, the underlying subcutaneous tissue continues to appear viable with no exposure of bone. With the mild skin graft/flap compromise (about 25% total), he started HBO treatments which would help salvage the compromised graft/flap. He tolerated the HBO treatments and has finished them. He has noticed some mild visual blurring early on that has stayed constant. He states he hasn't noticed it worsening. I told him to tell me as soon as he has noticed any worsening of his symptoms, at which time an evaluation by an Roaster Operator would be done. Prealbumin from the hospital was 17.5. Encourage nutritional supplementation with protein to help the healing process. With the patients history of vascular disease, we checked a duplex scan which showed decrease flow through left iliac through common femoral to profunda. Further evaluation as needed with CTA to define proximal. Left SFa occluded. He was evaluated by Vascular Surgery on 10/17/18 who recommended further vascular surgery. Further workup is being done. He meets with cardiology for cardiac clearance on 11/22/18. Also found out that he has started smoking again. Encouraged him to stop smoking as it may have deleterious effects on wound healing. He is at increased risk of having to revise his BKA into an AKA. He voiced understanding. Discussed further operative debridement and skin grafting. Will discuss it further after his Vascular Surgery evaluation and treatment has been completed. He states he is feeling depressed because of the thought of further vascular surgery. Will start him on Zoloft, he has not started the Zoloft yet. He denies wanting to hurt himself or others. He was released from his job. He currently doesn't have insurance, so he will not be coming to the wound center on a regular basis. He is hoping to have the insurance issue resolved over the next few weeks. Renewed Percocet (30) and Valium (20), OARRS report reviewed, no suspicious activity noted. Followup two weeks. Plan: Continue Collagen Hydrogel dressing changes daily. The skin graft shows good adherence and about 85% take and good vascular ingrowth. There is some mild compromise at the inferior edge of the skin graft (about 15% compromise). The stump is soft and swelling has resolved. The central aspect of the stump anteriorly shows some mild compromise (about 10%). After debridement, the underlying subcutaneous tissue continues to appear viable with no exposure of bone. With the mild skin graft/flap compromise (about 25% total), he started HBO treatments which would help salvage the compromised graft/flap. He tolerated the HBO treatments and has finished them. He has noticed some mild visual blurring early on that has stayed constant. He states he hasn't noticed it worsening. I told him to tell me as soon as he has noticed any worsening of his symptoms, at which time an evaluation by an Roaster Operator would be done. Prealbumin from the hospital was 17.5. Encourage nutritional supplementation with protein to help the healing process. He has returned to work and is doing ok. Discussed with the patient that the presence of MRSA and Pseudomonas can be destructive to the surrounding tissue leading to suboptimal healing. When the Cipro was completed for the Pseudomonas, we applied for Epifix placental connective tissue graft placement. It was denied. Also with the patients history of vascular disease, we checked a duplex scan which showed decrease flow through left iliac through common femoral to profunda. Furher evaluation as needed with CTA to define proximal. Left SFa occluded. Will set him up with a Vascular Surgery evaluation for possible angioplasty to improve blood flow to the stump to maximize healing. The appointment is on 10/17/18. Also found out that he has started smoking again. Encouraged him to stop smoking as it may have deleterious effects on wound healing. He is at increased risk of having to revise his BKA into an AKA. He voiced understanding. Discussed further operative debridement and skin grafting. Will discuss it further after his Vascular Surgery evaluation. Followup one week. Code Visit [id number]: [id number] Aleena subq tissue 20 sq cm/<
[2018-12-17 08:18] VITALS: BP 150/93; PULSE 83; RESP 16; TEMP 36.7; BMI 24.5
--- NOTE | 2018-12-17 09:21 | PN.PCM_ITS ---
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 Current Visit: Yes Code(s): T86.828 - Other complications of skin graft (allograft) (autograft) (3) Pain of amputation stump of left lower extremity Status: Chronic Current Visit: Yes Code(s): T87.89 - Other complications of amputation stump; M79.605 - Pain in left leg (4) Personal history of osteomyelitis Status: Chronic Current Visit: Yes Code(s): Z87.39 - Personal history of other diseases of the musculoskeletal system and connective tissue (5) Status post below knee amputation of left lower extremity Status: Chronic Current Visit: Yes Code(s): Z89.512 - Acquired absence of left leg below knee (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 History of Wound: Surgery 05/25/18 - 1. Surgical preparation left BKA stump with excisional debridement nonhealing infected ulcer. 2. Complex secondary wound closure revision reconstruction with re-advancement muscle flap and bipedicle anterior leg fasciocutaneous advancement flap and STSG from the left flank (60 cm2). Surgery 04/05/18 - 1. Surgical preparation left BKA stump with incision and drainage and excisional debridement nonhealing infected ulcer. 2. Partial ostectomy tibia for osteomyelitis. Wound care - Collagen Hydrogel. Operative culture - MRSA. Soft tissue from 04/05/18 surgery - negative. Bone from 04/05/18 surgery - negative. Pathology from 04/05/18 surgery - negative for ostemyelitis. He was discharged on Bactrim DS. He has since finished the Bactrim DS. He had another wound culture done on 06/18/18 which showed Pseudomonas aeroginosa. He was placed on Levaquin and fininshed them. On 08/06/18, another wound culture was done because of increased odor. It showed Pseudomonas aeroginosa and Anaerobic cocci. He was started on Cipro and Flagyl was added. He has finished them. Prealbumin from 05/26/18 was 17.5. Encourage nutritional supplementation with protein to help the healing process. MRI left BKA stump in 10/13 showed osteomyelitis. He changed his anticoagulation medication and stopped the Coumadin and started Eliquis. Today he denies fever. His appetite is good. With his early compromise to the skin graft/flap, he underwent HBO treatments to help salvage the compromised graft/flap and has finished them. He has noticed some mild visual blurring early on that has stayed constant. He states he hasn't noticed it worsening. I told him to tell me as soon as he has noticed any worsening of his symptoms, an evaluation by an Patient Services Clerk would be done. Now that the Cipro was finished for the Pseudomonas, I applied for Epifix placental connective tissue graft. It was denied. With the patient's history of previous vascular disease, I ordered a duplex scan. It showed decreased flow through left iliac through common femoral to profunda. Further evaluation as needed with CTA to define proximal. Left SFa occluded. He was evaluated by Vascular Surgery on 10/17/18. He states he needs further vascular surgery. With him having lost his insurance, he has cancelled any further appointments with them until he gets new insurance. Progress of Wound: Surgery 05/25/18 with mild skin graft/flap compromise, improved. - Physical Exam Vital Signs Temp Pulse Resp BP 98.0 F 83 16 150/93 H 12/17/18 08:18 12/17/18 08:18 12/17/18 08:18 12/17/18 08:18 General: Alert, Oriented x3, Cooperative HEENT: Atraumatic Oral: Moist Mucosa Lungs: Normal air movement Cardiovascular: Regular rate Extremities: No edema, Capillary Refill Less than 3 Seconds Skin: Ulcer/ Wound - Left BKA stump ulcer Wound Measurements and Assessment WC - Nurse 1 - General Ulcer Measurement Start: 11/26/18 08:12 Freq: Status: Active Protocol: Activity Type Activity Date Activity User E-Sign Co-Sign Detail Recorded Client Recorded Date Recorded By Document 12/17/18 08:18 DV [id number] 12/17/18 08:22 DV 12/17/18 08:18 Wound Center Nurse 1 [Ulcer Assessment] #5 L BKA stump -Combined with other wound No -Current Size (cm) - Length 0.1 -Current Size (cm) - Width 0.1 -Current Size (cm) - Depth 0.1 -Total Square Cm 0.01 -Photo Taken No -Epithelialization None Present -Tunneling No -Undermining/Tunneling No -Circular Undermining No -Classification - Thickness Full Thickness without Exposed Support Structure -Wound Margin Flat & Intact -Granulation Amt None Present (0 %) -Granulation Quality N/A -Slough/Fibrin Yes -Necrosis Amt Large (67-100%) -Necrotic Tissue Type Adherent Slough -Structure Exposed None/Limited to Skin Breakdown -Texture (Ami-wound Skin Appearance) No Abnormality, Assessed -Moisture (Ami-wound Skin Appearance No Abnormality, ) Assessed -Color (Ami-wound Skin Appearance) No Abnormality, Assessed -Temperature (Ami-wound Skin No Abnormality Appearance) (Pt Warm) -Foul Odor after Cleansing No -Anesthetic Used 5% Lidocaine Gel WC - Nurse 2 - General Ulcer CM Notes Start: 11/26/18 08:12 Freq: Status: Active Protocol: Activity Type Activity Date Activity User E-Sign Co-Sign Detail Recorded Client Recorded Date Recorded By Document 12/17/18 08:51 MW [id number] 12/17/18 08:58 MW 12/17/18 08:51 Wound Center Nurse 2 [Procedure/Treatment] -Time 08:51 -Correct Patient Yes -Correct Side, Site, Position Yes -Correct Procedure Yes -Procedure Performed Yes -Type of Procedure Debridement -Clinical Debridement Subcutaneous -Post Debridement Size (cm) - Length 4.0 -Post Debridement Size (cm) - Width 1.0 -Post Debridement Size (cm) - Depth 0.1 -Total Square Cm 4.00 -Wound/Ulcer Outcome Not Healed -Ulcer Cleansing Rinsed/ Irrigated with Saline -Foul Odor after Cleansing No -Bioengineered Tissue No -Bleeding Controlled with Pressure -Offloading No -Treatment Response Procedure Tolerated Well [See Physician Procedure note for Specifics] Pain Scale: 0-10 Numeric [Pain] -Is Patient Pain Free? Yes Musculoskeletal: No Tenderness to Palpation of Joints or Extremities Neurological: Neuro grossly intact Psych/Mental Status: Normal Affect, Appropriate Debridement Note Post-Debridement Measurements/Treatment WC - Nurse 2 - General Ulcer CM Notes Start: 11/26/18 08:12 Freq: Status: Active Protocol: Activity Type Activity Date Activity User E-Sign Co-Sign Detail Recorded Client Recorded Date Recorded By Document 11/26/18 08:24 [id number] 11/26/18 08:25 Document 12/03/18 08:27 [email or web address] [id number] 12/03/18 08:31 JF Document 12/17/18 08:51 [id number] 12/17/18 08:58 MW 11/26/18 12/03/18 12/17/18 08:24 08:27 08:51 Wound Center Nurse 2 #5 L BKA stump -Time 08:24 08:27 08:51 -Correct Patient Yes Yes Yes -Correct Side, Site, Position Yes Yes Yes -Correct Procedure Yes Yes Yes -Procedure Performed Yes Yes Yes -Type of Procedure Debridement Debridement Debridement -Clinical Debridement Subcutaneous Subcutaneous Subcutaneous -Post Debridement Size (cm) - Length 1.5 1.3 4.0 -Post Debridement Size (cm) - Width 1.6 1.7 1.0 -Post Debridement Size (cm) - Depth 0.3 0.2 0.1 -Total Square Cm 2.40 2.21 4.00 -Wound/Ulcer Outcome Not Healed Not Healed Not Healed -Ulcer Cleansing Rinsed/ Rinsed/ Rinsed/ Irrigated with Irrigated with Irrigated with Saline Saline Saline -Foul Odor after Cleansing No No No -Bioengineered Tissue No No No -Bleeding Controlled with Pressure Pressure Pressure -Offloading No No No -Treatment Response Procedure Procedure Procedure Tolerated Well Tolerated Well Tolerated Well Pain Scale: 0-10 Numeric Is Patient Pain Free? Yes Yes Yes Wound debrided: Left BKA stump ulcer Laterality: Left Type of Debridement: Excisional debridement Anesthesia Used: 5% Lidocaine Gel Depth: Down to and including healthy tissue, in the subcutaneous layer Percentage of wound debrided: 100 Instrument Used: 3mm curette Tissue Removed: Subcutaneous tissue and slough Severity: Fat Layer Exposed Amount of bleeding with debridement: Mild Bleeding Controlled with: Compression and gauze Patient tolerated procedure well Assessment/Plan Active Problems (Last Updated 11/16/18 @ 11:03 by Mellisa Boateng) Tobacco use disorder (Chronic) Partial loss of skin graft (Chronic) Personal history of osteomyelitis (Chronic) 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) [facility] current use of 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 (Chronic) Patient is on Coumadin for PE 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) Pain of amputation stump of left lower extremity (Chronic) Assessment: 1. Nonhealing ulcer left BKA stump with recent surgical closure 05/25/18. 2. Pain left BKA stump. 3. MRSA. 4. 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 5. Smoker, he has started again. 6. [facility] use of anticoagulation. 7. Early skin graft/flap compromise left BKA stump, (20% compromise). 8. s/p surgical preparation left BKA stump with excisional debridement nonhealing infected ulcer and complex secondary wound closure revision reconstruction with re-advancement muscle flap and bipedicle anterior leg fasciocutaneous advancement flap and STSG from the left flank (60 cm2). 9. PAD. Plan: Continue Collagen Hydrogel dressing changes daily. The skin graft shows good adherence and about 85% take and good vascular ingrowth. There is some mild compromise at the inferior edge of the skin graft (about 15% compromise). The stump is soft and swelling has resolved. The central aspect of the stump anteriorly shows some mild compromise (about 10%). After debridement, the underlying subcutaneous tissue continues to appear viable with no exposure of bone. With the mild skin graft/flap compromise (about 25% total), he started HBO treatments which would help salvage the compromised graft/flap. He tolerated the HBO treatments and has finished them. He has noticed some mild visual blurring early on that has stayed constant. He states he hasn't noticed it worsening. I told him to tell me as soon as he has noticed any worsening of his symptoms, at which time an evaluation by an Patient Services Clerk would be done. Prealbumin from the hospital was 17.5. Encourage nutritional supplementation with protein to help the healing process. With the patients history of vascular disease, we checked a duplex scan which showed decrease flow through left iliac through common femoral to profunda. Further evaluation as needed with CTA to define proximal. Left SFa occluded. He was evaluated by Vascular Surgery on 10/17/18 who recommended further vascular surgery. He has put everything on hold since he lost his insurance. He meets with cardiology for cardiac clearance on 11/22/18. Also found out that he has started smoking again. Encouraged him to stop smoking as it may have deleterious effects on wound healing. He is at increased risk of having to revise his BKA into an AKA. He voiced understanding. Discussed further operative debridement and skin grafting. Will discuss it further after his Vascular Surgery evaluation and treatment has been completed. He states he is feeling depressed because of the thought of further vascular surgery. Started him on Zoloft which he states is helping. He was released from his job. He currently doesn't have insurance, so he will not be coming to the wound center on a regular basis. He is hoping to have the insurance issue resolved over the next few weeks. He continues to have significant pain 7/10 to the anterior aspect of stump at the end of the bone, worse with light touch. Renewed Percocet (30) and Valium (20), OARRS report reviewed, no suspicious activity noted. Followup two weeks. Code Visit [id number]: [id number] Aleena subq tissue 20 sq cm/<
== END 2018-12-26 23:59 ==
LOC: WC 08:00
PROVIDERS: Family Provider Internal Medicine; PCP Internal Medicine; Visit Provider Surgery
DX: T86.828 Other complications of skin graft (allograft) (autograft) (principal); Y83.8 Other surgical procedures as the cause of abnormal reaction of the patient, or of later complication, without mention of misadventure at the time of the procedure; F17.200 Nicotine dependence, unspecified, uncomplicated; Z86.14 Personal history of Methicillin resistant Staphylococcus aureus infection; T87.81 Dehiscence of amputation stump; Z89.512 Acquired absence of left leg below knee; Z86.711 Personal history of pulmonary embolism; Z79.01 Long term (current) use of 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s
CPT/HCPCS: 11042

== ENCOUNTER 2019-01-14 08:14 | Outpatient (RCR) | payer MEDICAID, SELFPAY ==
[2018-12-27 00:37] VITALS: BP 150/93; PULSE 83; RESP 16; TEMP 36.7
[2019-01-14 08:18] VITALS: BP 141/88; PULSE 83; RESP 16; TEMP 36.3; BMI 24.5
--- NOTE | 2019-01-14 21:25 | PN.PCM_ITS ---
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 Current Visit: Yes Code(s): T86.828 - Other complications of skin graft (allograft) (autograft) (5) Methicillin resistant Staphylococcus aureus infection Status: Chronic Current Visit: Yes Code(s): A49.02 - Methicillin resistant Staphylococcus aureus infection, unspecified site (6) Personal history of osteomyelitis Status: Chronic Current Visit: Yes Code(s): Z87.39 - Personal history of other diseases of the musculoskeletal system and connective tissue (7) 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 History of Wound: Surgery 05/25/18 - 1. Surgical preparation left BKA stump with excisional debridement nonhealing infected ulcer. 2. Complex secondary wound closure revision reconstruction with re-advancement muscle flap and bipedicle anterior leg fasciocutaneous advancement flap and STSG from the left flank (60 cm2). Surgery 04/05/18 - 1. Surgical preparation left BKA stump with incision and drainage and excisional debridement nonhealing infected ulcer. 2. Partial ostectomy tibia for osteomyelitis. Wound care - Collagen Hydrogel. Operative culture - MRSA. Soft tissue from 04/05/18 surgery - negative. Bone from 04/05/18 surgery - negative. Pathology from 04/05/18 surgery - negative for ostemyelitis. He was discharged on Bactrim DS. He has since finished the Bactrim DS. He had another wound culture done on 06/18/18 which showed Pseudomonas aeroginosa. He was placed on Levaquin and fininshed them. On 08/06/18, another wound culture was done because of increased odor. It showed Pseudomonas aeroginosa and Anaerobic cocci. He was started on Cipro and Flagyl was added. He has finished them. Prealbumin from 05/26/18 was 17.5. Encourage nutritional supplementation with protein to help the healing process. MRI left BKA stump in 10/13 showed osteomyelitis. He changed his anticoagulation medication and stopped the Coumadin and started Eliquis. Today he denies fever. His appetite is good. With his early compromise to the skin graft/flap, he underwent HBO treatments to help salvage the compromised graft/flap and has finished them. He has noticed some mild visual blurring early on that has stayed constant. He states he hasn't noticed it worsening. I told him to tell me as soon as he has noticed any worsening of his symptoms, an evaluation by an Pay Station Department Manager would be done. Now that the Cipro was finished for the Pseudomonas, I applied for Epifix placental connective tissue graft. It was denied. With the patient's history of previous vascular disease, I ordered a duplex scan. It showed decreased flow through left iliac through common femoral to profunda. Further evaluation as needed with CTA to define proximal. Left SFa occluded. He was evaluated by Vascular Surgery on 10/17/18. He states he needs further vascular surgery. The Vascular Surgery has been put on hold because he has lost his insurance, he now has medicaid, instructed him to return to Dr. Armstrong for further evaluation. This may be the cause of his chronic Left BKA pain. He is tolerating the Zolof for his depression. Progress of Wound: Surgery 05/25/18 with mild skin graft/flap compromise. Healed today. - Physical Exam Vital Signs Temp Pulse Resp BP 97.3 F L 83 16 141/88 H 01/14/19 08:18 01/14/19 08:18 01/14/19 08:18 01/14/19 08:18 General: Alert, Oriented x3, Cooperative HEENT: Atraumatic Oral: Moist Mucosa Lungs: Normal air movement Cardiovascular: Regular rate Abdomen: Soft Extremities: No edema, Capillary Refill Less than 3 Seconds Skin: Ulcer/ Wound - Left BKA stump ulcer is healed today Wound Measurements and Assessment WC - Nurse 1 - General Ulcer Measurement Start: 01/14/19 08:18 Freq: Status: Active Protocol: Activity Type Activity Date Activity User E-Sign Co-Sign Detail Recorded Client Recorded Date Recorded By Document 01/14/19 08:18 MW [id number] 01/14/19 08:20 MW 01/14/19 08:18 Wound Center Nurse 1 [Ulcer Assessment] #5 L BKA stump -Combined with other wound No -Current Size (cm) - Length 0.1 -Current Size (cm) - Width 0.1 -Current Size (cm) - Depth 0.1 -Total Square Cm 0.01 -Photo Taken No -Epithelialization Medium 34-66% -Tunneling No -Undermining/Tunneling No -Circular Undermining No -Exudate Amt Small -Exudate Type Serous -Wound Margin Flat & Intact -Granulation Amt None Present (0 %) -Granulation Quality N/A -Slough/Fibrin Yes -Necrosis Amt Small (1-33%) -Necrotic Tissue Type Adherent Slough -Structure Exposed N/A -Texture (Ami-wound Skin Appearance) No Abnormality, Scarring -Moisture (Ami-wound Skin Appearance Assessed, ) Maceration, Weeping -Color (Ami-wound Skin Appearance) No Abnormality, Assessed -Temperature (Ami-wound Skin No Abnormality Appearance) (Pt Warm) -Ulcer Cleansing Rinsed/ Irrigated with Saline -Foul Odor after Cleansing No -Anesthetic Used 4% Lidocaine Solution [Edema Assessment] -Lower Limb Edema Present No WC - Nurse 2 - General Ulcer CM Notes Start: 01/14/19 08:18 Freq: Status: Active Protocol: Activity Type Activity Date Activity User E-Sign Co-Sign Detail Recorded Client Recorded Date Recorded By Document 01/14/19 08:46 [email or web address] [id number] 01/14/19 08:48 FLAVIA 01/14/19 08:46 Wound Center Nurse 2 [Procedure/Treatment] #5 L BKA stump -Correct Patient No -Correct Side, Site, Position No -Correct Procedure No -Procedure Performed No -Post Debridement Size (cm) - Length 0 -Post Debridement Size (cm) - Width 0 -Post Debridement Size (cm) - Depth 0 -Total Square Cm 0 -Wound/Ulcer Outcome Healed- Epithelialized [See Physician Procedure note for Specifics] Pain Scale: 0-10 Numeric [Pain] -Is Patient Pain Free? Yes Debridement Note Post-Debridement Measurements/Treatment WC - Nurse 2 - General Ulcer CM Notes Start: 01/14/19 08:18 Freq: Status: Active Protocol: Activity Type Activity Date Activity User E-Sign Co-Sign Detail Recorded Client Recorded Date Recorded By Document 01/14/19 08:46 FLAVIA [id number] 01/14/19 08:48 FLAVIA 01/14/19 08:46 Wound Center Nurse 2 #5 L BKA stump -Correct Patient No -Correct Side, Site, Position No -Correct Procedure No -Procedure Performed No -Post Debridement Size (cm) - Length 0 -Post Debridement Size (cm) - Width 0 -Post Debridement Size (cm) - Depth 0 -Total Square Cm 0 -Wound/Ulcer Outcome Healed- Epithelialized Pain Scale: 0-10 Numeric Is Patient Pain Free? Yes No debridement was completed today Assessment/Plan Active Problems (Last Updated 11/16/18 @ 11:03 by Mellisa Boateng) Tobacco use disorder (Chronic) Partial loss of skin graft (Chronic) Methicillin resistant Staphylococcus aureus infection (Chronic) Personal history of osteomyelitis (Chronic) 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) detention current use of 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 (Chronic) Patient is on Coumadin for PE 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) Pain of amputation stump of left lower extremity (Chronic) Assessment: 1. Nonhealing ulcer left BKA stump with recent surgical closure 05/25/18. 2. Pain left BKA stump. 3. MRSA. 4. 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 5. Smoker, he has started again. 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 7. Early skin graft/flap compromise left BKA stump, (20% compromise). 8. s/p surgical preparation left BKA stump with excisional debridement nonhealing infected ulcer and complex secondary wound closure revision reconstruction with re-advancement muscle flap and bipedicle anterior leg fasciocutaneous advancement flap and STSG from the left flank (60 cm2). 9. PAD. Plan: Patient is healed today. Instructed to continue to moisturize and massage the scars to help soften the scars and help desensitize the incision. The stump is soft and swelling has resolved. He tolerated the HBO treatments and has finished them for he compromised graft. With the patients history of vascular disease, we checked a duplex scan which showed decrease flow through left iliac through common femoral to profunda. Further evaluation as needed with CTA to define proximal. Left SFa occluded. He was evaluated by Vascular Surgery on 10/17/18 who recommended further vascular surgery. His Vascular Surgery is on hold because he lost his insurance, now has Medicaid, instructed him to follow up with Dr. Armstrong for further evaluation and possible surgery. His vascular issues may be the cause of his anterior stump pain. Also found out that he has started smoking again. Encouraged him to stop smoking as it may have deleterious effects on wound healing. He is at increased risk of having to revise his BKA into an AKA. He voiced understanding. Discharged from Wound center. Follow up as needed. Code Visit Office Visits / Consults: [id number] OV L3 Est
== END 2019-01-26 23:59 ==
LOC: WC 08:14
PROVIDERS: Family Provider Internal Medicine; PCP Internal Medicine; Visit Provider Surgery
DX: Z09 Encounter for follow-up examination after completed treatment for conditions other than malignant neoplasm (principal); Z89.512 Acquired absence of left leg below knee; Z87.39 Personal history of other diseases of the musculoskeletal system and connective tissue; Z86.711 Personal history of pulmonary embolism; Z79.01 Long term (current) use of 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s; I73.9 Peripheral vascular disease, unspecified; F17.200 Nicotine dependence, unspecified, uncomplicated
CPT/HCPCS: 99212; G0463

== ENCOUNTER → 2019-02-18 06:25 | Outpatient (CLI) | payer MEDICAID, SELFPAY ==
--- NOTE | 2019-02-18 14:56 | STRESSREP_ITS ---
Stress Test Report Pharmacologic myocardial perfusion stress test. Preop evaluation. Medications amlodipine, lisinopril, Eliquis, carvedilol, gabapentin. Stress protocol: Resting EKG demonstrates atrial fibrillation with a rate of 68 bpm left bundle branch block is noted resting blood pressures 130/80 mmHg. 0.4 mg of regadenoson was infused per usual protocol followed by rapid intravenous saline flush injection continuous EKG monitoring was performed. The maximum heart rate attained was 122 bpm which was 73% of maximum predicted heart rate maximum workload was 1 metabolic equivalent. The patient maintained atrial fibrillation throughout the recording and with a left bundle branch block. The resting blood pressure 130/80 with a final blood pressure 122/82 mmHg. Myocardial perfusion protocol. 11.6 mCi of technetium 99m sestamibi was injected at rest. 0.4 mg of regadenoson was infused per usual protocol. At peak infusion 32.9 mCi of techn etium 99m sestamibi was injected stress images were obtained stress and rest images are reconstructed and compared in the short axis vertical and horizontal long axis. Gated images were also obtained Perfusion SPECT analysis: Review of the stress images demonstrate a mildly dilated cardiac silhouette size. There appears to be fairly uniform perfusion noted in most areas. There is mild reduction in the anterior wall in the inferior wall but no obvious ischemia is noted. Gated SPECT analysis: The gated ejection fraction is noted to be 27%. Conclusion: Myocardial perfusion stress test demonstrating no obvious ischemia noted. Cardiomyopathy present. Atrial fibrillation with a left bundle branch block noted.
== END ==
PROVIDERS: Family Provider Internal Medicine; PCP Internal Medicine
DX: Z01.818 Encounter for other preprocedural examination (principal); I25.10 Atherosclerotic heart disease of native coronary artery without angina pectoris
CPT/HCPCS: 78452; 93017; A9500; A4216; J2785

== ENCOUNTER 2019-03-02 21:38 | Emergency (ER) | payer MEDICAID, SELFPAY ==
[2019-03-02 21:40] VITALS: BP 143/79; PULSE 87; PULSE 90; RESP 18; TEMP 36.6; O2SAT 98; O2SAT 99; BMI 25.0
--- NOTE | 2019-03-02 22:06 | RAD_ITS ---
HISTORY:FELL TODAY, HEARD A POP FELL TODAY, HEARD A POP EXAMINATION/TECHNIQUE: XR Spine Lumbar 2 or 3 Views: 3 views... COMPARISON: None FINDINGS: VERTEBRAE: Anterior wedging of the L1 vertebral body age-indeterminate No spondylolisthesis. Degenerative changes of the posterior elements. Preservation of the normal lumbar lordosis. DISCS: Degenerative changes are noted. Decreased disc space at T12-L1 INCLUDED ABDOMEN: Right side common iliac stents RAD/Lumbar Spine 2 or 3 Views IMPRESSION: Compression deformity L1 vertebral body age-indeterminate Consider MRI for further evaluation of clinically indicated at 2302 Reported and signed by: Tammi Schmidt DO Electronically Signed: Tammi Schmidt DO at 23:01 EDT Tel , Service support ,
--- NOTE | 2019-03-02 22:17 | ED.VIS.INJ ---
History of Present Illness Chief Complaint: Fall Informant: Patient Onset: Today Mechanism/Context: Fall Quality of Pain: Dull, Aching Current Severity: Moderate Maximum Severity: Severe Worsened by: Movement Relieved by: Nothing Associated Symptoms: Parasthesias - Paresthesias all extremities. Negative for: Loss of function, Inability to ambulate, Loss of consciousness, Amnesia Narrative: Patient is a middle-age male with history of hypertension and left BKA who missed the chair when he went to sit. He states his tailbone landed on the wheel of the chair. He felt a pop. Past Medical History - Allergies and Home Meds Allergies/Adverse Reactions: Allergies Penicillins Allergy (Verified 08/10/18 10:05) Swelling adhesive tape Adverse Reaction (Verified 08/10/18 10:05) Rash oxycodone [From OxyContin] Adverse Reaction (Verified 03/02/19 21:39) Other it makes me go nuts Primary Care Physician: Dharmesh Alonso MD [Primary Care Provider] - Surgical History: cholecystectomy, - Smoking Status: Former smoker - Family History Maternal Family History: Family History (Last Reviewed 08/10/18 @ 10:08 by Aleja Lutz) Other CVA (cerebral vascular accident) Cancer Heart disease Family History: Reports: Cancer, Diabetes, Heart Disease, Renal Disease Paternal Family History: Family History (Last Reviewed 08/10/18 @ 10:08 by Aleja Lutz) Other CVA (cerebral vascular accident) Cancer Heart disease Family History: Reports: Cancer Physical Exam Vital Signs/Narrative: Vital Signs Temp Pulse Resp BP Pulse Ox 03/02/19 21:40 97.8 F 87 18 143/79 H 98 Diagnostic/Tx/Re-eval Chest X-Ray - ED: Read by ED Physician, - - View x-ray of the LS-spine was obtained and there is a compression fracture of L1. There is approximately 15% at most 20% compression/loss in height. Only comparison is a CT of the abdomen pelvis that was dated 2013. There is no obvious compression fracture at that time. - Medical Decision Making X-ray of the LS-spine was obtained to assess for fracture versus strain versus contusion. Patient received 8 mg of morphine IV push. He states the pain is tolerable when he was reexamined at 2325. He was informed that the x-ray does reveal a compression fracture. He was discharged with Percocet. He was informed that this type of fracture may impair the movement of his bowels and this is complicated by the fact that opiates also cause constipation or decreased movement of bowels. Recommended Metamucil 3 times a day. ED Disposition - Plan for ED Patient: Disposition: Home or Assisted Living Diagnosis: Compression fracture of L1 lumbar vertebra Instructions: FRACTURE, Vertebral Compression Prescriptions: Oxycodone HCl/Acetaminophen [Percocet 5/325] 1 tab PO Q6H PRN PRN 5 Days #20 tab PRN Reason: Back pain Prescription Printed Referrals: Dharmesh Alonso MD [Primary Care Provider] - 1 Week if not improving Additional Instructions: Recommend taking either Metamucil 3 times a day or MiraLAX 3 times a day while on pain medicine to prevent constipation.
[2019-03-02] MEDS: morphine 8 MG/ML Syringe IV (22:21)
[2019-03-02 23:41] VITALS: BP 106/69; PULSE 80; PULSE 81; RESP 16; O2SAT 96; O2SAT 97
== END 2019-03-02 23:42 | disposition home or self-care (01) ==
PROVIDERS: Emergency Provider Emergency Medicine; Family Provider Internal Medicine; PCP Internal Medicine
DX: S32.010A Wedge compression fracture of first lumbar vertebra, initial encounter for closed fracture (principal); W07.XXXA Fall from chair, initial encounter; Y93.89 Activity, other specified; I10 Essential (primary) hypertension; Z79.899 Other long term (current) drug therapy; Z87.891 Personal history of nicotine dependence
CPT/HCPCS: 72100; 96374; 99284; A4216; J2405

== ENCOUNTER 2019-03-10 12:56 | Emergency (ER) | payer MEDICAID, SELFPAY ==
[2019-03-10 12:58] VITALS: BP 139/86; PULSE 70; RESP 14; TEMP 36.9; O2SAT 100; BMI 24.1
[2019-03-10 13:04] VITALS: BMI 24.1
[2019-03-10 13:06] LABS: Bedside Glucose 96 mg/dL (70-110)
--- NOTE | 2019-03-10 13:18 | CT_ITS ---
STUDY: CT BRAIN WITHOUT CONTRAST REASON FOR EXAM: Male, 53 years old. Numbness. Fall. RADIATION DOSAGE (If Supplied By Facility): CTDIvol = ( 44.99 ) mGy, DLP = ( 846.73 ) mGycm TECHNIQUE: Transaxial CT imaging of the brain was performed without administration of intravenous contrast material. Individualized dose optimization techniques were used for this CT. COMPARISON: None. FINDINGS: There is no acute bleed or infarct. There are normal white matter tracts. The ventricles are normal in configuration. There is no hydrocephalus. The visualized paranasal sinuses are clear. The mastoid air cells are well aerated. There is no skull fracture. CT/Brain/Head without Contrast IMPRESSION: No acute intracranial abnormality. Electronically Signed: Antione Ventura, at 14:12 EDT Tel , Service support ,
--- NOTE | 2019-03-10 13:19 | EKG12_ITS ---
Test Reason : NEURO Blood Pressure : / mmHG Vent. Rate : 060 BPM Atrial Rate : 060 BPM P-R Int : 166 ms QRS Dur : 164 ms QT Int : 460 ms P-R-T Axes : 057 -26 104 degrees QTc Int : 460 ms Normal sinus rhythm Left bundle branch block Abnormal ECG Confirmed by MALDONADO ARAGON ([id number]), news videotape editor MACHO SAUCEDO ([id number] on 03/13/2019 8:30:27 AM Referred By: MARY LOU Confirmed By:MALDONADO ARAGON
--- NOTE | 2019-03-10 13:24 | CT_ITS ---
STUDY: CT ABDOMEN AND PELVIS WITH CONTRAST REASON FOR EXAM: Male, 53 years old. Numbness. Fall on 03/02 with L1 compression fracture. RADIATION DOSAGE (If Supplied By Facility): CTDIvol = ( 15.46 ) mGy, DLP = ( 1132.97 ) mGycm TECHNIQUE: Transaxial images were obtained from the dome of the diaphragm to the symphysis pubis without oral contrast. 100 ml of Isovue 300 contrast was administered. Sagittal and coronal images were reconstructed. Individualized dose optimization techniques were used for this CT. COMPARISON: X-ray dated 03/02/2019 FINDINGS: The visualized lung bases are clear. The visualized portions of the heart and pericardium are within normal limits. The patient is status post cholecystectomy. The liver is within normal limits. There are no suspicious hepatic lesions. The spleen is normal in size. The pancreas is within normal limits. The adrenal glands are within normal limits. The left kidney is atrophic. There are no renal or ureteral stones. There is no hydronephrosis. There are no focal renal lesions. Normal visualized stomach. There is no bowel obstruction or inflammation. The appendix is not visualized, but there are no findings to suggest acute appendicitis. The aorta is normal in caliber. There is an occluded stent in the right common and external iliac artery. The right common femoral artery is reconstituted via the right inferior epigastric artery. There is no abdominal or pelvic free air, free fluid, fluid collection or lymphadenopathy. There is a mild L1 compression fracture which is stable when compared with the radiograph dated 03/02/2019. There is no paraspinal hematoma identified. There are no destructive osseous lesions. CT/Abdomen/Pelvis W IV Cont ONLY IMPRESSION: Mild L1 compression deformity which is stable when compared with the radiograph dated 03/02/2019. No paraspinal hematoma identified. No bowel obstruction or inflammation. Atrophic left kidney. No hydronephrosis. Occluded graft in the right common external iliac arteries. Reconstitution of the right common femoral artery via the right inferior epigastric artery. Electronically Signed: Antione Ventura, at 14:22 EDT Tel , Service support ,
--- NOTE | 2019-03-10 13:24 | ED.VIS.GEN ---
History of Present Illness Chief Complaint: Neuro S/Sx Detail of Chief Complaint: Paresthesias Informant: Patient, Family Onset: Today - 2 AM today Current Severity: Mild Maximum Severity: Mild Narrative: Patient presents with paresthesias to his arms and legs as well as to his tongue and upper lip. He states symptoms started around 2 AM this morning. He also complains of blurry vision but states that is been ongoing for some time. He was seen here on the fifth after a fall. He was diagnosed with an L1 compression fracture. He states he has pain across this area as well as his kidneys. He does not note significant weakness in his extremities. It is noted that the documentation from the fifth states he was complaining of paresthesias to all extremities at that time as well. Patient does admit that this is something that comes and goes, but seems to be worse today. Past Medical History - Allergies and Home Meds Allergies/Adverse Reactions: Allergies Penicillins Allergy (Verified 03/10/19 12:57) Swelling adhesive tape Adverse Reaction (Verified 03/10/19 12:57) Rash oxycodone [From OxyContin] Adverse Reaction (Verified 03/10/19 12:57) Other it makes me go nuts Primary Care Physician: Dharmesh Alonso MD [Primary Care Provider] - Prior records reviewed: Yes Past Medical History: - - Reviewed Surgical History: cholecystectomy, - Lives: Spouse/ Significant Other Smoking Status: Light Smoker (<10/day) - Family History Maternal Family History: Family History (Last Reviewed 08/10/18 @ 10:08 by Aleja Lutz) Other CVA (cerebral vascular accident) Cancer Heart disease Family History: Reports: Cancer, Diabetes, Heart Disease, Renal Disease Paternal Family History: Family History (Last Reviewed 08/10/18 @ 10:08 by Aleja Lutz) Other CVA (cerebral vascular accident) Cancer Heart disease Family History: Reports: Cancer Review of Systems General: Denies: Chills, Fever Eyes: Reports: Blurred Vision - bilaterally ENT: Denies: Bilateral ear pain Cardiovascular: Denies: Chest pain Respiratory: Denies: Dyspnea, Cough Gastrointestinal: Denies: Abdominal pain, Nausea, Vomiting, Diarrhea Genitourinary: Denies: Dysuria Musculoskeletal: Reports: Back pain Skin: Denies: Rash Neurological: Reports: - - Scalp pain when he is wearing a hat to the area touched. Endocrine: Denies: Polyuria, Polydipsia Hematologic: Denies: Easy bruising, Easy bleeding Allergy: Denies: Uticaria Physical Exam Vital Signs/Narrative: Vital Signs Temp Pulse Resp BP Pulse Ox 03/10/19 12:58 98.4 F 70 14 139/86 H 100 Inital Vital Signs reviewed: Yes General: Well nourished, Well developed Head: Normocephalic ENT: Moist mucous membranes Neck: Supple, Nontender Cardiovascular: Regular rate, Regular rhythm Respiratory: No distress, CTA bilaterally Abdomen: Soft, Nontender, Normal bowel sounds Extremities: Nontender - Chronic left BKA. Skin: Normal color Neurological: Alert, Oriented x3, Normal Strength, Parasthesia - Patient reports decreased sensation to light touch over his upper lip, bilateral upper extremities, bilateral lower extremities. Good strength is noted on testing. Psychological: Normal affect Diagnostic/Tx/Re-eval Impressions Brain CT 03/10/19 13:18 IMPRESSION: No acute intracranial abnormality. Electronically Signed: Antione Ventura, at 14:12 EDT Tel , Service support , Abdomen/Pelvis CT 03/10/19 13:24 IMPRESSION: Mild L1 compression deformity which is stable when compared with the radiograph dated 03/02/2019. No paraspinal hematoma identified. No bowel obstruction or inflammation. Atrophic left kidney. No hydronephrosis. Occluded graft in the right common external iliac arteries. Reconstitution of the right common femoral artery via the right inferior epigastric artery. Electronically Signed: Antione Vnetura, at 14:22 EDT Tel , Service support , 03/10/19 13:18 Brain/Head without Contrast [CT] Stat 03/10/19 13:24 Abdomen/Pelvis W IV Cont ONLY [CT] Stat Laboratory Results 03/10/19 03/10/19 03/10/19 13:00 13:00 13:01 WBC 11.0 RBC 5.49 Hgb 15.4 Hct 47.4 MCV 86.3 MCH 28.1 MCHC 32.5 RDW Std Deviation 48.1 H RDW Coeff of [place] 15.2 H Plt Count 325 MPV 10.1 Immature Gran % (Auto) 0.200 Neut % (Auto) 50.9 Lymph % (Auto) 32.1 [place] % (Auto) 10.0 Eos % (Auto) 5.6 H Baso % (Auto) 1.2 H Absolute Neuts (auto) 5.6 Absolute Lymphs (auto) 3.52 Nucleated RBC % 0 Sodium 133 L Potassium 4.4 Chloride 98 Carbon Dioxide 28.0 Anion Gap 7 BUN 15 Creatinine 1.56 H Estim Creat Clear Calc 63.67 Est GFR (MDRD) Af Amer 60 Est GFR (MDRD) Non-Af 50 L BUN/Creatinine Ratio 9.6 L Glucose 85 Calcium 9.6 Magnesium 2.1 Urine Color Urine Clarity Urine pH Ur Specific [place] Urine Protein Urine Glucose (UA) Urine Ketones Urine Occult Blood Urine Nitrite Urine Bilirubin Urine Urobilinogen Ur Leukocyte Esterase POC Glucose 96 03/10/19 15:15 WBC RBC Hgb Hct MCV MCH MCHC RDW Std Deviation RDW Coeff of [place] Plt Count MPV Immature Gran % (Auto) Neut % (Auto) Lymph % (Auto) [place] % (Auto) Eos % (Auto) Baso % (Auto) Absolute Neuts (auto) Absolute Lymphs (auto) Nucleated RBC % Sodium Potassium Chloride Carbon Dioxide Anion Gap BUN Creatinine Estim Creat Clear Calc Est GFR (MDRD) Af Amer Est GFR (MDRD) Non-Af BUN/Creatinine Ratio Glucose Calcium Magnesium Urine Color Yellow Urine Clarity Clear Urine pH 7.0 Ur Specific [place] 1.005 Urine Protein Negative Urine Glucose (UA) Normal Urine Ketones Negative Urine Occult Blood Negative Urine Nitrite Negative Urine Bilirubin Negative Urine Urobilinogen Normal Ur Leukocyte Esterase Negative POC Glucose - EKG Initial EKG Interpretation: Sinus Rhythm - Sinus at 60 with a left bundle branch block. Unchanged when compared to prior study. - Medical Decision Making Repeat evaluation patient is resting comfortably. Test results are reviewed with patient and at bedside. His sodium is slightly low, but when looking at past values he has been up and down in the past. His renal function is slightly worsening. I was looking at symptoms of Neurontin toxicity as a possible cause for his symptoms. He is currently on 1800 twice daily which is the max dose per day. With his renal function worsening I question if he may be having more side effects from the medication. His creatinine clearance is technically still within limits for normal dosing. I will speak with primary care physician to update her on the patient's current condition. Patient will follow-up in the office. ED Disposition - Plan for ED Patient: Disposition: Home or Assisted Living Diagnosis: Paresthesias Instructions: Paraesthesias Referrals: Dharmesh Alonso MD [Primary Care Provider] - 5-7 Days
[2019-03-10 13:26] LABS: Absolute Lymphocyte Count 3.52 X10^3/uL (0.83-4.51); Absolute Neutrophil Count 5.6 X10^3/uL (2.0-7.7); Basophil# 0.13 X10^3/uL; Basophil% 1.2 % (0-1); Eosinophil# 0.61 X10^3/uL; Eosinophils% 5.6 % (0-5); Hematocrit 47.4 % (40-54); Hemoglobin 15.4 g/dL (13.0-16.5); Lymphocyte # 3.52 X10^3/ul (4.0); Lymphocyte % 32.1 % (19-41); Mean Corp Hgb Conc 32.5 g/dL (32-36); Mean Corpuscular Hgb 28.1 pg (27.0-32.0); Mean Corpuscular Volume 86.3 fL (80-94); Mean Platelet Vol. 10.1 fl (6.2-12.0); NRBC Flagged by Analyzer 0 % (0-5); Neutrophil # 5.58 X10^3/uL (2.7-7.7); Neutrophil % 50.9 % (47-70); Platelet Count 325 K/mm3 (150-450); RBC Distribution Width CV 15.2 % (11.6-14.6); RBC Distribution Width SD 48.1 fl (35.1-43.9); Red Blood Count 5.49 M/mm3 (4.6-6.2)
[2019-03-10] MEDS: 0.9% Normal Saline 1,000 ML 150 ML IV (13:32)
--- NOTE | 2019-03-10 13:33 | ED.RN ---
C/o blurry vision intermittently since the beginning of the year.
--- NOTE | 2019-03-10 13:34 | ED.RN ---
Pt has been having blurry vision ever since hyperbaric treatment. Pt reported started with blurry vision for the last month and a half.
[2019-03-10 13:41] LABS: Anion Gap 7 (5-15); BUN 15 mg/dL (7-18); BUN/Creat Ratio 9.6 RATIO (10-20); Calcium,Total 9.6 mg/dL (8.5-10.1); Chloride 98 mmol/L (98-107); Creatinine, Serum 1.56 mg/dL (0.70-1.30); EST Glomerular Filtration Rate 50 mL/min (>60); Est Glom Filt Rate - Afr Amer 60 mL/min (>60); Estimated Creatinine Clearance 63.67 ml/min; Glucose 85 mg/dL (74-106); Magnesium 2.1 mg/dL (1.6-2.6); Potassium 4.4 mmol/L (3.5-5.1); Sodium Level 133 mmol/L (136-145)
[2019-03-10 15:00] VITALS: BP 140/81; PULSE 54; RESP 16; O2SAT 99
[2019-03-10 15:27] LABS: Bacteria 0 SEEN /hpf (None Seen); Mucous, Urine 0 SEEN /hpf (<or=2+); Red Blood Cells-Urine 0 SEEN /hpf (0-5); White Blood Cells 0 SEEN /hpf (0-5)
[2019-03-10 15:30] LABS: Color, Urine Yellow (Yellow); Glucose, Dipstick Normal (Normal); Ketone-Dipstick Negative (Negative); Leukocyte Esterase-Dipstick Negative /ul (Negative); Nitrite-Dipstick Negative (Negative); Occult Blood-Urine Negative /ul (Negative); Protein-Dipstick Negative (Negative); Specific Gravity, Urine 1.005 (1.002-1.030); Urine Bilirubin Dipstick Negative (Negative); Urine Clarity Clear (Clear); Urine Urobilinogen Normal (Normal)
[2019-03-10 15:47] LABS: Squamous Epithelial Cells - UA 0-5 SEEN /hpf (0-5)
[2019-03-10 15:55] VITALS: BP 122/82; PULSE 50; RESP 10; O2SAT 99
== END 2019-03-10 16:01 | disposition home or self-care (01) ==
PROVIDERS: Emergency Provider Emergency Medicine; Family Provider Internal Medicine; PCP Internal Medicine
DX: R20.2 Paresthesia of skin (principal); H53.8 Other visual disturbances; I44.7 Left bundle-branch block, unspecified; N26.1 Atrophy of kidney (terminal); S32.019D Unspecified fracture of first lumbar vertebra, subsequent encounter for fracture with routine healing; W19.XXXD Unspecified fall, subsequent encounter; Z79.899 Other long term (current) drug therapy; F17.200 Nicotine dependence, unspecified, uncomplicated
CPT/HCPCS: 70450; 74177; 80048; 81001; 82962; 83735; 85025; 93005; 96360; 96361; 99283; J7030; Q9967; A4216

== ENCOUNTER 2019-04-17 11:01 | Emergency (ER) | payer MEDICAID, SELFPAY ==
[2019-04-17 11:02] VITALS: BP 180/120; PULSE 104; RESP 19; TEMP 37.1; O2SAT 99; BMI 21.7
--- NOTE | 2019-04-17 11:03 | CT_ITS ---
STUDY: CT BRAIN WITHOUT CONTRAST REASON FOR EXAM: Male, 53 years old. Neurological deficit. RADIATION DOSAGE (If Supplied By Facility): CTDIvol = ( 44.99 ) mGy, DLP = ( 829.85 ) mGycm TECHNIQUE: Transaxial CT imaging of the brain was performed without administration of intravenous contrast material. Individualized dose optimization techniques were used for this CT. COMPARISON: Comparison is made with prior study dated March 10, 2019. FINDINGS: Normal soft tissue structures. Normal calvarium. There is mild cerebral atrophy with widening of the extra-axial spaces and ventricular dilatation. There is evidence of a new area of decreased attenuation in the left posterior parietal occipital lobe in keeping with the infarction. Minimal degree of mass effect. Normal basal ganglia and thalami. Normal brainstem. Normal cerebellum. There is no intracranial hemorrhage. Questionable thrombus in the left middle cerebral artery. Normal visualized paranasal sinuses. CT/Brain/Head without Contrast IMPRESSION: Findings in keeping with acute ischemic change in the posterior left parietal occipital lobes. Questionable thrombus in the left middle cerebral artery. N.B. : The above information has been verbally conveyed by Earnest Humphrey to Pedro Pryor on 04/17/2019 11:17:37 (ET). Electronically Signed: Earnest Humphrey, at 11:18 EST , Service support ,
--- NOTE | 2019-04-17 11:03 | EKG12_ITS ---
Test Reason : NEURO Blood Pressure : / mmHG Vent. Rate : 089 BPM Atrial Rate : 089 BPM P-R Int : 158 ms QRS Dur : 138 ms QT Int : 390 ms P-R-T Axes : 058 -23 131 degrees QTc Int : 474 ms Normal sinus rhythm with sinus arrhythmia Left bundle branch block Abnormal ECG Confirmed by NGUYEN BUSH, NICHOL ([id number]), publishing editor LINDSAY SIDDIQUI ([id number]) on 04/19/2019 12:30:39 PM Referred By: FLACO Confirmed By:SWETHA CEDILLO MD
--- NOTE | 2019-04-17 11:04 | CT_ITS ---
We are attempting to reach an attending provider to discuss findings. An addendum with communication details will be sent when the communication is complete. STUDY: CTA HEAD AND NECK WITH CONTRAST REASON FOR EXAM: Male, 53 years old. Stroke like symptoms. RADIATION DOSAGE (If Supplied By Facility): CTDIvol = ( 23.57 ) mGy, DLP = ( 781.16 ) mGycm TECHNIQUE: CT angiography was performed with a multi-detector CT scanner. Data acquisition was obtained from the skull base through the vertex following intravenous administration of IV Isovue 370 100. MIP images were reconstructed from the axial data set. Post-processing of the angiographic images was performed, with multiplanar reformation and 3D reconstruction. Individualized dose optimization techniques were used for this CT. COMPARISON: No relevant priors. FINDINGS: Normal bilateral petrous carotid arteries. Normal right cavernous carotid artery with a normal supraclinoid bifurcation. Normal left cavernous carotid artery with a normal supraclinoid bifurcation. Normal right A1 segments of the anterior cerebral artery. Normal left A1 segments of the anterior cerebral artery. Normal intact anterior communicating artery (ACOM). Normal bilateral A2 segments of the anterior cerebral arteries. Normal right M1 and M2 segments of the middle cerebral arteries, with a normal M1 bifurcation. Normal left M1 and M2 segments of the middle cerebral arteries, with a normal M1 bifurcation. Normal right posterior communicating artery (PCOM). Normal left posterior communicating artery (PCOM). Normal bilateral vertebral arteries. Normal basilar artery with a normal basilar bifurcation. The visualized bilateral superior cerebellar (SCA) arteries are normal. Normal bilateral P1, P2 and visualized P3 segments of the posterior cerebral arteries. There is no demonstrated aneurysm of the lower [place] of [place]. AORTIC ARCH: Normal visualized aortic arch. Normal origins of the brachiocephalic, left common carotid, and left subclavian arteries. RIGHT CAROTID ARTERIES: Normal right common carotid artery (CCA). Normal right common carotid bulb. Normal origin of the right internal carotid (ICA) artery without a hemodynamically significant stenosis. Normal visualized cervical portion of the right internal carotid artery. Normal origin of the right external carotid artery (ECA). LEFT CAROTID ARTERIES: Normal left common carotid artery (CCA). Normal left common carotid bulb. Normal origin of the left internal carotid (ICA) artery without a hemodynamically significant stenosis. Normal visualized cervical portion of the left internal carotid artery. Normal origin of the left external carotid artery (ECA). VERTEBRAL ARTERIES: Normal bilateral vertebral arteries. CT/CTA Head AND Neck W/ Contrast IMPRESSION: Normal CTA Head and neck with contrast. Electronically Signed: Earnest Humphrey, at 11:33 EST , Service support ,
--- NOTE | 2019-04-17 11:19 | ED.DCSUM_ITS ---
History of Present Illness Chief Complaint: Neuro S/Sx Informant: Patient, Significant Other Limited: - - Disorientation and onset time has changed Onset: Today - Initially I was told 1 hour ago. Family states he may complaints of not feeling right with headache at 0600. He also has made the comment that he had a headache that started last evening. He states this is not a migraine headache. Context: Sudden Onset Timing: Continuous Quality and Location: - - Patient was initially seen by me he stated symptoms were on the left. His symptoms and exam are not congruent. Family states he complained of right-sided symptoms. He is disoriented and has difficulty focusing and probable reason why what he initially told me and what told me and symptoms/findings are not on the same side. Current Severity: Moderate Maximum Severity: Moderate Worsened by: Nothing Relieved by: Nothing Associated Symptoms: Negative for: Headache, - - Change in vision. Onset greater than a week Narrative: Patient is a 53-year-old male who has a hypercoagulable state on Eliquis who presents with reported left-sided symptoms. Per family and he complained prior to arrival of right-sided symptoms. His exam reveals right-sided symptoms. He does complain of left-sided headache. History is limited. Prior similar symptoms: No Recent Illness/Hospitalization: No - Past Medical History (1) Dilated cardiomyopathy Status: Acute (2) Chronic osteomyelitis of left tibia Status: Chronic Comment: chronic osteomyelitis left tibia at BKA stump (3) Essential hypertension Status: Chronic (4) Former smoker Status: Chronic (5) History of DVT (deep vein thrombosis) Status: Chronic (6) History of pulmonary embolism Status: Chronic (7) Hypercoagulable state Status: Chronic (8) assisted current use of 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 Status: Chronic Comment: Patient is on Coumadin for PE (9) Peripheral arterial disease Status: Chronic (10) Status post below knee amputation of left lower extremity Status: Chronic Past Medical History - Allergies and Home Meds Allergies/Adverse Reactions: Allergies Penicillins Allergy (Verified 04/17/19 11:40) Swelling adhesive tape Adverse Reaction (Verified 04/17/19 11:40) Rash oxycodone [From OxyContin] Adverse Reaction (Verified 04/17/19 11:40) Other it makes me go nuts Primary Care Physician: Dharmesh Alonso MD [Primary Care Provider] - Prior records reviewed: Yes Surgical History: cholecystectomy, - Lives: Spouse/ Significant Other Smoking Status: Light Smoker (<10/day) Alcohol: None Drugs: None - Family History Maternal Family History: Family History (Last Reviewed 08/10/18 @ 10:08 by Aleja Lutz) Other CVA (cerebral vascular accident) Cancer Heart disease Family History: Reports: Cancer, Diabetes, Heart Disease, Renal Disease Paternal Family History: Family History (Last Reviewed 08/10/18 @ 10:08 by Aleja Lutz) Other CVA (cerebral vascular accident) Cancer Heart disease Family History: Reports: Cancer Review of Systems ROS: Unable to Obtain - History limited because patient has difficulty concentrating and is disoriented. Neurological: Reports: Headache, Weakness, Parasthesia, Numbness STROKE Inital Vital Signs reviewed: Yes - NIHSS Initial 1a Level of Consciousness: 1 1b LOC Questions (Score 2 if aphasic/stupor): 2 1c LOC Commands (Only score 1st attempt): 1 2 Best Gaze (If aphasic, use reflexive mvmts.): 2 3 Visual: 2 4 Facial Palsy: 0 5 Motor Arm Right (UN = amputation/fusion): 2 5 Motor Arm Left: 0 6 Motor Leg Right: 1 6 Motor Leg Left: 0 7 Limb ataxia (Only + if out of proportion): 0 8 Sensory (Aphasia/stupor=0 or 1, coma=2): 1 9 Best Language: 1 10 Dysarthria (mute, coma=2, intubated=UN): 0 11 Extinction and Inattention (only scored if +): 1 Total Score: 14 General: Well nourished, Well developed Head: Normocephalic, Atraumatic Eyes: Perrl, EOMI, - - Cannot look to the right. He is unable to see the right side of my face.. Negative for: Pale conjunctiva, Scleral icterus ENT: Moist mucous membranes, No rhinorrhea, TM's clear Neck: Supple, Nontender, No lymphadenopathy, No JVD Cardiovascular: Regular rate, Regular rhythm, No murmurs, Normal S1, Normal S2 Respiratory: No distress, CTA bilaterally, Chest nontender Abdomen: Soft, Nontender, Nondistended, Normal bowel sounds Rectal: Deferred Back: Nontender Extremities: Nontender, No edema, - - BKA on the left well-healed Skin: Normal color, No rash, No Trauma. Negative for: Cyanosis, Diaphoresis, Jaundice Neurological: Cranial nerves II-XII grossly intact, Confused, Disoriented. Negative for: Alert, Oriented x3, Normal Strength, Normal Sensation, Normal Gait Psychological: Normal affect - Has inappropriate laugh. Diagnostic/Tx/Re-eval Impressions Brain CT 04/17/19 11:03 IMPRESSION: Findings in keeping with acute ischemic change in the posterior left parietal occipital lobes. Questionable thrombus in the left middle cerebral artery. N.B. : The above information has been verbally conveyed by Earnest Humphrey to [facility] on 04/17/2019 11:17:37 (ET). Electronically Signed: Earnest Humphrey, at 11:18 EST , Service support , ADDENDUM: 04/17/19 1125 IMPRESSION: Findings in keeping with acute ischemic change in the posterior left parietal occipital lobes. Questionable thrombus in the left middle cerebral artery. N.B. : The above information has been verbally conveyed by Earnest Humphrey to [facility] on 04/17/2019 11:17:37 (ET). Electronically Signed: Earnest Humphrey, at 11:18 EST , Service support , Head/Neck CTA 04/17/19 11:04 IMPRESSION: Normal CTA Head and neck with contrast. Electronically Signed: Earnest Humphrey, at 11:33 EST , Service support , ADDENDUM: 04/17/19 1141 IMPRESSION: Normal CTA Head and neck with contrast. N.B. : The above information has been verbally conveyed by Earnest Humphrey to [facility] on 04/17/2019 11:34:06 (ET). Electronically Signed: Earnest Humphrey, at 11:33 EST , Service support , ADDENDUM: 04/17/19 1150 04/17/19 11:03 Brain/Head without Contrast [CT] Stat 04/17/19 11:04 CTA Head AND Neck W/ Contrast [CT] Stat Laboratory Results 04/17/19 04/17/19 11:04 11:04 WBC 12.0 H RBC 5.67 Hgb 15.8 Hct 48.0 MCV 84.7 MCH 27.9 MCHC 32.9 RDW Std Deviation 49.2 H RDW Coeff of Lawson 16.1 H Plt Count 269 MPV 9.9 Immature Gran % (Auto) 0.300 Neut % (Auto) 55.6 Lymph % (Auto) 30.4 [place] % (Auto) 7.8 Eos % (Auto) 4.9 Baso % (Auto) 1.0 Absolute Neuts (auto) 6.7 Absolute Lymphs (auto) 3.63 Nucleated RBC % 0 PT 13.8 INR 1.1 APTT 31.8 Based on the patient's CTA findings he will be transferred to [facility] for definitive care. Patient and have been aware of need for transfer because services needed are not available at [facility]. Arrangements are being made to transfer him to [facility]. - Medical Decision Making Stroke Team Activated: Yes Reviewed Inclusion/Exclusion criteria: Yes Was Patient considered for Endovascular Intervention?: No - On Eliquis and onset uncertain No contraindications for IV Alteplase (t-PA) administration.: No Resents with strokelike symptoms. Stroke order set was entered and CTA was ordered. Concern patient has a acute occlusion involving the left side. Concern this involves the posterior circulation since he has ocular findings as well as motor findings. Patient is not a candidate for TPA for 2 reasons 1 onset is uncertain. Time is varied from possibly last evening to early this morning to 1 hour ago. Furthermore he is on an 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, Eliquis. He did take Eliquis within the last 24 hours. I was contacted by radiologist and there is evidence of an acute stroke involving the left parietal occipital region. The CTA portion has not been read. Critical care time (excluding procedures): 30-74 minutes - Care time 33 minutes this included discussion with patient, family. Radiologist was spoken to on 2 separate occasions. Spoke with neurologist at [facility]. Facilitated in transfer to [facility] by helicopter ED Disposition - Plan for ED Patient: Disposition: 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
[2019-04-17 11:21] VITALS: BP 154/118; PULSE 95; RESP 13; O2SAT 99
[2019-04-17 11:25] LABS: Absolute Lymphocyte Count 3.63 X10^3/uL (0.83-4.51); Absolute Neutrophil Count 6.7 X10^3/uL (2.0-7.7); Basophil# 0.12 X10^3/uL; Eosinophil# 0.58 X10^3/uL; Eosinophils% 4.9 % (0-5); Hemoglobin 15.8 g/dL (13.0-16.5); Lymphocyte # 3.63 X10^3/ul (4.0); Lymphocyte % 30.4 % (19-41); Mean Corp Hgb Conc 32.9 g/dL (32-36); Mean Corpuscular Hgb 27.9 pg (27.0-32.0); Mean Corpuscular Volume 84.7 fL (80-94); Mean Platelet Vol. 9.9 fl (6.2-12.0); Monocyte# 0.93 X10^3/uL; Monocyte% 7.8 % (0-10); NRBC Flagged by Analyzer 0 % (0-5); Neutrophil # 6.66 X10^3/uL (2.7-7.7); Neutrophil % 55.6 % (47-70); Platelet Count 269 K/mm3 (150-450); RBC Distribution Width CV 16.1 % (11.6-14.6); RBC Distribution Width SD 49.2 fl (35.1-43.9); Red Blood Count 5.67 M/mm3 (4.6-6.2)
[2019-04-17 11:27] VITALS: BMI 21.7
--- NOTE | 2019-04-17 11:29 | CM.ED ---
Social Work Consult: Jacquelyn Jefferson Met with patient family. Provided support and active listening. Cora VAZQUEZ, AZIZA
[2019-04-17 11:32] LABS: International Normalized Ratio 1.1; Prothrombin Time (Protime)PT. 13.8 SECONDS (11.7-14.9)
[2019-04-17 11:33] LABS: Partial Thromboplast Time 31.8 Seconds (24.1-36.2)
[2019-04-17 11:50] VITALS: BP 147/97; PULSE 95; RESP 12; O2SAT 98
--- NOTE | 2019-04-17 11:52 | NURSING ---
ETA IS 30 MIN MEDFLIGHT
[2019-04-17 12:20] VITALS: BP 154/98; PULSE 91; RESP 19; O2SAT 98
[2019-04-17 12:20] LABS: Anion Gap 6 (5-15); BUN 7 mg/dL (7-18); Calcium,Total 9.5 mg/dL (8.5-10.1); Chloride 106 mmol/L (98-107); Creatinine, Serum 1.39 mg/dL (0.70-1.30); EST Glomerular Filtration Rate 57 mL/min (>60); Est Glom Filt Rate - Afr Amer 69 mL/min (>60); Estimated Creatinine Clearance 68.41 ml/min; Glucose 95 mg/dL (74-106); Potassium 4.2 mmol/L (3.5-5.1); Sodium Level 138 mmol/L (136-145)
[2019-04-18 12:50] LABS: Bedside Glucose 103 mg/dL (70-110)
== END 2019-04-17 12:33 | disposition short-term general hospital (02) ==
PROVIDERS: Emergency Provider Emergency Medicine; Family Provider Internal Medicine; PCP Internal Medicine
DX: I63.232 Cerebral infarction due to unspecified occlusion or stenosis of left carotid arteries (principal); F17.200 Nicotine dependence, unspecified, uncomplicated; I10 Essential (primary) hypertension; I42.0 Dilated cardiomyopathy; I73.9 Peripheral vascular disease, unspecified; I44.7 Left bundle-branch block, unspecified; Z79.01 Long term (current) use of 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s; Z82.3 Family history of stroke; Z82.49 Family history of ischemic heart disease and other diseases of the circulatory system; Z86.711 Personal history of pulmonary embolism; Z86.718 Personal history of other venous thrombosis and embolism; Z88.0 Allergy status to penicillin; Z88.5 Allergy status to narcotic agent; Z89.512 Acquired absence of left leg below knee; Z90.49 Acquired absence of other specified parts of digestive tract
CPT/HCPCS: 70450; 70496; 70498; 80048; 82962; 84484; 85025; 85610; 85730; 93005; 99251; 99283; Q9967; A4216; G0463

== ENCOUNTER 2019-04-23 19:18 | Inpatient (IN) | payer MEDICAID, SELFPAY ==
[2019-04-23 20:15] VITALS: BP 154/90; PULSE 79; RESP 18; TEMP 36.6; O2SAT 99; BMI 23.3; BMI 23.4
[2019-04-23 22:00] VITALS: BP 154/92; PULSE 82; RESP 18; TEMP 36.6; O2SAT 99
--- NOTE | 2019-04-23 22:12 | NURSING ---
Hospitalist, Dr Nish Garcia, in pt room
--- NOTE | 2019-04-23 22:16 | CON.PCM_ITS ---
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 (5) Methicillin resistant Staphylococcus aureus infection Status: Chronic (6) Personal history of osteomyelitis Status: Chronic (7) History of pulmonary embolism Status: Chronic (8) History of DVT (deep vein thrombosis) Status: Chronic (9) Status post below knee amputation of left lower extremity Status: Chronic (10) Former smoker Status: Chronic (11) [facility] current use of 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 Status: Chronic Comment: Patient is on Coumadin for PE (12) Chronic osteomyelitis of left tibia Status: Chronic Comment: chronic osteomyelitis left tibia at BKA stump (13) Ulceration of below knee amputation stump Status: Chronic (14) Pain of amputation stump of left lower extremity Status: Chronic (15) Dermatitis Status: Chronic (16) Osteomyelitis of left lower extremity Status: Chronic (17) Pain of left anterior lower extremity Status: Chronic (18) Amputation, traumatic, leg Status: Chronic (19) Peripheral arterial disease Status: Chronic (20) SVT (supraventricular tachycardia) Status: Chronic (21) Hypercoagulable state Status: Chronic (22) Wound, surgical, nonhealing Status: Chronic (23) Ischemic ulcer of right foot Status: Chronic Reason for Consult Date of Consultation: 04/23/19 Reason for Consultation: medical management History of Present Illness: The patient is a 53 year old M with a significant history of hypertension; atrial fibrillation who is here for rehab after an acute stroke. Patient had an acute stroke about a week ago. He was at our hospital emergency department and was airlifted to [facility] where he had left carotid enterectomy. Patient reports that he had right-sided weakness and lost the vision of his right eye. Also he was aphasic. He reports improvement in his right-sided weakness. He continues to have poor vision of his right eye. His speech has improved but it is not yet to his baseline. 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 (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) Patient is on Coumadin for PE Chronic osteomyelitis of left tibia (Chronic) chronic osteomyelitis left tibia at BKA stump 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) Pain of amputation stump of left lower extremity (Chronic) Dermatitis (Chronic) Osteomyelitis of left lower extremity (Chronic) Pain of left anterior lower extremity (Chronic) Amputation, traumatic, leg (Chronic) Peripheral arterial disease (Chronic) SVT (supraventricular tachycardia) (Chronic) Hypercoagulable state (Chronic) Wound, surgical, nonhealing (Chronic) Ischemic ulcer of right foot (Chronic) Medical History: Medical History (Last Reviewed 04/24/19 @ 03:58 by Nish Peace MD) Dilated cardiomyopathy (Chronic) I42.0 Essential hypertension (Chronic) I10 Tobacco use disorder (Chronic) F17.200 Partial loss of skin graft (Chronic) T86.828 Methicillin resistant Staphylococcus aureus infection (Chronic) A49.02 Personal history of osteomyelitis (Chronic) Z87.39 JUAN (acute kidney injury) (Inactive) N17.9 History of pulmonary embolism (Chronic) Z86.711 History of DVT (deep vein thrombosis) (Chronic) Z86.718 Former smoker (Chronic) Z87.891 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 (Chronic) Z79.01 Patient is on Coumadin for PE Chronic osteomyelitis of left tibia (Chronic) M86.662 chronic osteomyelitis left tibia at BKA stump 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) T87.89, L97.809 Pain of amputation stump of left lower extremity (Chronic) T87.89, M79.605 Dermatitis (Chronic) L30.9 Osteomyelitis of left lower extremity (Chronic) M86.9 Thrush, oral (Inactive) B37.0 Pain of left anterior lower extremity (Chronic) M79.605 Peripheral arterial disease (Chronic) I73.9 SVT (supraventricular tachycardia) (Chronic) I47.1 Hypercoagulable state (Chronic) D68.59 Wound, surgical, nonhealing (Chronic) T81.89XA Ischemic ulcer of right foot (Chronic) L97.519 Anemia D64.9 Arthritis M19.90 Gallstones K80.20 Vascular disease I99.9 Allergies Penicillins Allergy (Verified 04/17/19 11:40) Swelling adhesive tape Adverse Reaction (Verified 04/17/19 11:40) Rash oxycodone [From OxyContin] Adverse Reaction (Verified 04/17/19 11:40) Other it makes me go nuts Home Medications: Ambulatory Orders Medication Instructions Recorded amlodipine 10 mg tablet 10 mg PO tab 02/07/19 carvedilol 25 mg tablet 12.5 mg PO DAILY 02/07/19 Apixaban [Eliquis] 5 mg PO BID 04/23/19 Gabapentin 800 mg PO BID 04/23/19 Lisinopril [Prinivil] 10 mg PO DAILY 04/23/19 Surgical History: Surgical History (Last Reviewed 04/24/19 @ 03:59 by Nish Peace MD) History of left heart catheterization (LHC) (Resolved) Onset Date: ~09/14/16 Z98.890 Normal Coronaries History of cardiac radiofrequency ablation (Resolved) Onset Date: ~02/25/13 Z98.890 PVC Ablation 02/25/13 @ [facility] 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) Z89.512 Amputation, traumatic, leg (Chronic) S88.919A History of cholecystectomy Z90.49 1998 History of surgical removal of testicle Z98.890, Z90.79 Surgical History: cholecystectomy, - Psychiatric History: No pertinent psych hx Lives: With Family Smoking Status: Current some day smoker Tobacco Use: Cigarettes - *Family History Maternal Family History: Family History (Last Reviewed 04/23/19 @ 22:29 by Nish Peace MD) Other CVA (cerebral vascular accident) Cancer Heart disease History Items: Cancer, Diabetes, Heart Disease, Renal Disease Paternal Family History: Family History (Last Reviewed 04/23/19 @ 22:29 by Nish Peace MD) Other CVA (cerebral vascular accident) Cancer Heart disease History Items: Cancer Review of Systems Constitutional: Denies: Chills, Fever, Weight Change HEENT: Denies: Head Aches, Sinus Congestion, Sinus Drainage Cardiovascular: Denies: Chest Pain, Palpitations Respiratory: Denies: Cough, Shortness of breath at rest, Sputum production Gastrointestinal: Denies: Abdominal Pain, Nausea, Vomiting Genitourinary: Denies: Dysuria Musculoskeletal: Denies: Joint Pain, Joint Tenderness Skin: Denies: Rash, Wounds Neurological: Reports: Change in Speech, Focal weakness - Right upper extremity and right lower extremity, Headaches - Last time was yesterday, 04-22-19. Denies: Numbness, Tingling Psychiatric: Denies: Anxiety, Depression, Homicidal Ideations, Suicidal Ideations Hematologic/ Lymphatic: Denies: Easy Bruising, Easy Bleeding - Physical Exam Vitals/I&O's: Weight: 82.7 kg Body Mass Index (BMI) 23.3 Finger Stick Blood Glucose 103 General: Alert, Oriented x3, Cooperative HEENT: Atraumatic, PERRLA, EOMI, Normocephalic Neck: Supple, No JVD, Negative Carotid Bruits Lungs: Clear to auscultation, Normal air movement Cardiovascular: Regular rate, No murmurs Abdomen: Bowel Sounds Present, Soft, Non Tender Extremities: No edema, Capillary Refill Less than 3 Seconds Skin: No rashes, No breakdown, - - Left carotid area with well approximated incision; Steri-Strips in place. Musculoskeletal: No Tenderness to Palpation of Joints or Extremities, - - Left below the knee amputation Neurological: - - Cannot count fingers using the right eye. Can see flashing lights and wavy hand with right eye. Left eye with appropriate vision. Right upper extremity strength 3 out of 5; right lower extremity strength 4 out of 5. Strength and extremity of left side 5 out of 5. Psych/Mental Status: Normal Affect, Appropriate Current Medications Acetaminophen (Tylenol) 650 mg PO Q4H PRN PRN PRN Reason: Pain Score 1-3/10 Apixaban (Eliquis) 5 mg PO BID [facility] Aspirin (Aspirin) 325 mg PO DAILY@0800 [facility] Bisacodyl (Dulcolax) 10 mg RECTAL .PRN X 1 PRN PRN Reason: Constipation Carvedilol (Coreg) 12.5 mg PO DAILY [facility] Enoxaparin Sodium (Lovenox) 40 mg SC DAILY [facility] Gabapentin (Neurontin) 800 mg PO BID [facility] Lisinopril (Zestril) 10 mg PO DAILY [facility] Magnesium Hydroxide (Milk Of Magnesia) 30 ml PO .PRN X 1 PRN PRN Reason: Constipation Mupirocin (Bactroban) 1 applic TOPICAL TID [facility]; Protocol Stop: 04/27/19 10:00 Senna/Docusate Sodium (Senokot-S, Ami-Colace) 2 tablet PO BID ERIKA Sodium Chloride ([place] Nasal [place]) 2 spray NASAL BID PRN PRN PRN Reason: NASAL DRYNESS Tramadol HCl (Ultram) 50 mg PO Q6H PRN PRN PRN Reason: Pain Score 4-10/10 Assessment/Plan All Active Problems (Last Reviewed 04/23/19 @ 22:28 by Nish Peace MD) History of left heart catheterization (LHC) (Resolved ~09/14/16) History of cardiac radiofrequency ablation (Resolved ~02/25/13) The patient is a 53 year old M with a significant history of hypertension; atrial fibrillation who is here for rehab after an acute stroke. Debility after acute stroke PT OT and speech therapy to work with patient On aspirin. Eliquis to start on 04/29/19. Continue hypertensive management with lisinopril and carvedilol CBC and BMP in a.m. Hypertension Blood pressure is not within goal. Lisinopril and carvedilol continued Trend blood pressure and adjust blood pressure medication Paroxysmal atrial fibrillation In sinus rhythm; normal rate Resume Eliquis as above. Coreg continued. Tobacco abuse The last time he smoked was when he had a stroke Counseled DVT prophylaxis On Lovenox. Code Visit Inpatient E&M: [id number] Init Hosp L3
[2019-04-23] MEDS: Gabapentin 800 MG Tablet PO (22:17)
[2019-04-23] MEDS: Mupirocin Ointment 22gm Tube 1 APPLIC TOPICAL (22:19)
[2019-04-24] MEDS: Mupirocin Ointment 22gm Tube 1 APPLIC TOPICAL ×3 (05:30→20:42)
[2019-04-24] MEDS: Sodium Chloride 0.65% 1 SPRAY SPRAY.BTL 2 SPRAY NASAL (05:31)
[2019-04-24 06:18] LABS: Hemoglobin 12.1 g/dL (13.0-16.5); Mean Corp Hgb Conc 32.7 g/dL (32-36); Mean Corpuscular Hgb 27.7 pg (27.0-32.0); Mean Corpuscular Volume 84.7 fL (80-94); Mean Platelet Vol. 9.8 fl (6.2-12.0); Platelet Count 270 K/mm3 (150-450); RBC Distribution Width CV 15.9 % (11.6-14.6); RBC Distribution Width SD 49.3 fl (35.1-43.9); Red Blood Count 4.37 M/mm3 (4.6-6.2); White Blood Count 6.5 K/mm3 (4.4-11.0)
[2019-04-24 06:25] LABS: Anion Gap 7 (5-15); BUN 9 mg/dL (7-18); BUN/Creat Ratio 7.8 RATIO (10-20); Calcium,Total 8.4 mg/dL (8.5-10.1); Chloride 104 mmol/L (98-107); Creatinine, Serum 1.15 mg/dL (0.70-1.30); EST Glomerular Filtration Rate 71 mL/min (>60); Est Glom Filt Rate - Afr Amer 85 mL/min (>60); Estimated Creatinine Clearance 86.37 ml/min; Glucose 82 mg/dL (74-106); Potassium 3.9 mmol/L (3.5-5.1); Sodium Level 135 mmol/L (136-145)
[2019-04-24 07:40] VITALS: O2SAT 95
[2019-04-24] MEDS: Senna/Docusate Sodium 1 Tablet 2 TABLET PO (08:24)
[2019-04-24] MEDS: Lisinopril 10 MG Tablet PO (08:24)
[2019-04-24] MEDS: Gabapentin 800 MG Tablet PO ×2 (08:24→20:42)
[2019-04-24] MEDS: Carvedilol 12.5 MG Tablet PO ×2 (08:25→20:42)
[2019-04-24] MEDS: Aspirin 325 MG Tablet PO (08:25)
--- NOTE | 2019-04-24 08:35 | REHABEVAL_ITS ---
Admission Information Primary Diagnosis:: Debility secondary to L MCA ischemic CVA Status Changes from Prescreening?: No changes Identified Actual Problem List:: Skin Intergrity, Mobility Impaired, Self Care Deficit, Know.Dfct/Disease Process, Know.Dfct of Medicaitons, BP, Hypertension Potential Problem List:: DVT, Bleeding, Infection, UTI, Falls, Skin Integrity, Depression Risk of Complications DVT: KIRA Hose, Sequential Compression Device, - - Eliquis to be started on 04/29/19 Bleeding: Monitor Lab Values, Nursing to Teach Precautions for anti-coagulation therapy., Wound, if applicable, to be assessed every shift., Stroke patients assessed for lethargy or change in status. Infection: Clinical Staff to Monitor for S/S of infection:, S/S of infection include fever, redness, warmth, etc. Urinary Tract Infection: Monitor for frequency, burning, discomfort, or incontinence., Nursing will obtain urine sample for urinalysis and C&S when ordered. Aspiration: Speech will evaluate swallowing and dsyphasia., Nursing will monitor patient swallowing during meals. Falls: Patient will be evaluated for Fall Precautions, Patient will be placed on Fall Precautions as indicated per protocol. Skin Breakdown: Nursing will assess skin daily using assessment tool., Nursing will place on Skin Breakdown Precautions as indicated. Pain: Clinical staff will assess patient's pain level per protocol., Medications will be given, if needed, and the pain level reassessed., Other methods: Massage, distraction, decrease stimulus, etc. used PRN. Plan of Care Patient requires physician specializing in physical medicine and rehab oversight to provide close medical supervision of rehab issues including: Pain Management, Bowel and Bladder, Medical and co-morbidity Management, DVT prophylaxis, Rehabilitation Leadership, Coordination of treatment team Patient needs Physical Therapy: At least 5 out of 7 days, For a minimum of 1.5 hrs Patient needs Physical Therapy to improve:: Mobility, Strengthening, Transfers, Stretching, ROM, Endurance, Gait, Balance Patient needs Occupational Therapy: At least 5 out of 7 days, For a minimum of 1.5 hrs Patient needs Occupational Therapy to improve ADL's incl.: Eating, Grooming, Bathing, Dressing, Toileting, Toilet transfers, Community Reintegration, Higher functioning activities, Household tasks, Adaptive Equipment, Other activities as determined Patient requires speech therapy: - - for initial evaluation and will follow if indicated Patient requires speech therapy for: Swallowing, Cognition, Compensatory Strategies Patient requires 24/7 Rehabilitation Nursing for: Pain Issues, Identifying and preventing risk factors, Monitoring and reporting current medical conditions, Assisting with ambulation, transfer, and all ADL's, Teaching patients about disease process and medications, Family teaching, Providing safe environment, Bowel and Bladder Issues, Skin integrity, Medication Management Patient needs Internet Network Specialist/ Case Management for: Discharge Planning, Arranging Home Equipment or Services, Family Interventions Goals Patient will remain: free from falls, or injury at time of discharge. Patient will perform bed mobility at: MOD I level of assist. Patient will complete transfers from bed to chair at: MOD I level of assist. Patient will ambulate: 100 feet, with MOD I assist, with LRD Patient will complete upper body dressing at: MOD I level of assist. Patient will complete lower body dressing at: MOD I level of assist. Patient will complete toileting at: MOD I level of assist. Patient will perform bathing at: MOD I level of assist. Patient will complete grooming at: MOD I level of assist. Patient will complete home management skills at: MOD I level of assist. Patient will achieve: at MOD I assist, - - has L BKA and now R side weakness from CVA....was not doing stairs prior to the CVA Patient will have pain level of: of 3 or less Patient's skin will: remain intact, free from infection. Patient will receive: adequate nutrition. Discharge Planning Pt Prognosis for Sig. Practical Improv. w/in Reasonable Time: Good Anticipated D/C Destination: Home Was Preadmission Assessment Accurate?: Yes
[2019-04-24 10:00] VITALS: BP 131/98; PULSE 94; RESP 18; TEMP 36.8; O2SAT 98
--- NOTE | 2019-04-24 10:20 | HP.PCM_ITS ---
Problem List (1) Depression Status: Chronic (2) History of carotid endarterectomy Status: Acute Comment: 04/22/19 at [facility] (3) History of ischemic left MCA stroke Status: Chronic Comment: 04/17/19 (4) Debility Status: Acute Comment: due to L MCA stroke 04/17/19 (5) Normochromic normocytic anemia Status: Acute (6) Chronic renal failure, stage 3 (moderate) Status: Chronic (7) Dilated cardiomyopathy Status: Chronic Comment: 27% EF on ECHO 02/18/19........non-ischemic. normal coronaries on cath August 2016 at [facility] (8) Essential hypertension Status: Chronic (9) Tobacco use disorder Status: Chronic (10) Status post below knee amputation of left lower extremity Status: Chronic Comment: at [facility] for severe PVD with non- healing wounds and recurrent infections LLE (11) long-term current use of 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 Status: Chronic Comment: Patient is on Coumadin for PE (12) Chronic osteomyelitis of left tibia Status: Chronic Comment: chronic osteomyelitis left tibia at BKA stump (13) Pain of amputation stump of left lower extremity Status: Chronic (14) Peripheral arterial disease Status: Chronic Comment: BL LE's....multiple stents in both legs (15) Hypercoagulable state Status: Chronic Comment: Positive lupus 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, positive anticardiolipin anti B IgM, and increased homocystine level (16) LBBB (left bundle branch block) Status: Chronic History of Present Illness Date of Admission: 04/23/19 Chief Complaint: debility due to L MCA stroke on 04/17/19 The patient is a 53 year old M with a past medical history of chronic renal failure stage III, nonischemic cardiomyopathy with a 27% ejection fraction, left below the knee amputation secondary to severe peripheral vascular disease, hypercoagulable disorder with a positive lupus 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, positive cardiolipin antibody and increased homocystine level, peripheral arterial disease, left bundle branch block, history of ablation for supraventricular tachycardia, carotid vascular disease, carotid endarterectomy at [facility] on 04/22/2019, subacute ischemic infarcts involving the left frontal, left parietal, left lateral occipital lobes and left frontal lobe with petechial hemorrhages in the left parietal?occipital region on 04/17/19 who was admitted to the [facility] on 04/23/19 for debility due to recent strokes for > 3 hours a day of therapy daily to return him to at or near his prior level of i ndependence. He has been in a since surgery to revise L BKA stump by Dr. Massey 05/25/18. He will need further surgery/grafting prior to be re-fitted for a prosthesis. He does not drive and he was able to use a Walker to walk short distances. He lives in a one level house and he does not have steps. He was discharged from the [facility] on 01/14/2019 and at that time the ulceration on the left BKA stump had healed. He has seen Dr. Armstrong in the past for occlusion of the left SFA on vascular studies done 10/17/2018 and needs further surgery. He lost his job this past summer and subsequently lost his insurance. He now has insurance again and will need to follow-up with Dr. Armstrong going forward. Dr. Massey is planning on grafting the left stump following revascularization. Stress test on 02/18/2019 revealed no ischemia. The ejection fraction was 27%. In August 2016 he had a cardiac catheterization that showed normal coronaries and the EF at that time was 35 to 40%. He had stopped smoking but started smoking again when he lost his job this past summer and had no income and no insurance. He denies any cravings for nicotine at the present time and has been smoke-free since 04/17/2019. He does admit to feeling depressed. Past Medical History Past Medical History (Chronic Problems): Chronic Problems (Last Reviewed 04/24/19 @ 03:58 by Nish Peace MD) Depression (Chronic) History of ischemic left MCA stroke (Chronic) 04/17/19 Chronic renal failure, stage 3 (moderate) (Chronic) LBBB (left bundle branch block) (Chronic) Dilated cardiomyopathy (Chronic) 27% EF on ECHO 02/18/19........non-ischemic. normal coronaries on cath August 2016 at [facility] Essential hypertension (Chronic) Tobacco use disorder (Chronic) 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) at [facility] for severe PVD with non-healing wounds and recurrent infections LLE long-term current use of 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 (Chronic) Patient is on Coumadin for PE Chronic osteomyelitis of left tibia (Chronic) chronic osteomyelitis left tibia at BKA stump Pain of amputation stump of left lower extremity (Chronic) Peripheral arterial disease (Chronic) BL LE's....multiple stents in both legs Hypercoagulable state (Chronic) Positive lupus 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, positive anticardiolipin anti B IgM, and increased homocystine level Medical History: Medical History (Last Reviewed 04/24/19 @ 18:01 by Lynne Robledo DO) Dilated cardiomyopathy (Chronic) I42.0 27% EF on ECHO 02/18/19........non-ischemic. normal coronaries on cath August 2016 at [facility] Essential hypertension (Chronic) I10 Tobacco use disorder (Chronic) F17.200 intermediate accountant current use of 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 (Chronic) Z79.01 Patient is on Coumadin for PE Chronic osteomyelitis of left tibia (Chronic) M86.662 chronic osteomyelitis left tibia at BKA stump Pain of amputation stump of left lower extremity (Chronic) T87.89, M79.605 Peripheral arterial disease (Chronic) I73.9 BL LE's....multiple stents in both legs Hypercoagulable state (Chronic) D68.59 Positive lupus 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, positive anticardiolipin anti B IgM, and increased homocystine level Anemia D64.9 Arthritis M19.90 Gallstones K80.20 Vascular disease I99.9 JUAN (acute kidney injury) (Resolved) N17.9 Dermatitis (Resolved) L30.9 Ischemic ulcer of right foot (Resolved) L97.519 Osteomyelitis of left lower extremity (Resolved) M86.9 Thrush, oral (Resolved) B37.0 Ulceration of below knee amputation stump (Resolved) T87.89, L97.809 Wound, surgical, nonhealing (Resolved) T81.89XA History of DVT (deep vein thrombosis) (Inactive) Z86.718 History of pulmonary embolism (Inactive) Z86.711 Methicillin resistant Staphylococcus aureus infection (Inactive) A49.02 Partial loss of skin graft (Inactive) T86.828 Personal history of osteomyelitis (Inactive) Z87.39 SVT (supraventricular tachycardia) (Inactive) I47.1 had an ablation in the past Allergies Penicillins Allergy (Verified 04/17/19 11:40) Swelling adhesive tape Adverse Reaction (Verified 04/17/19 11:40) Rash oxycodone [From OxyContin] Adverse Reaction (Verified 04/17/19 11:40) Other it makes me go nuts Home Medications: Ambulatory Orders Medication Instructions Recorded amlodipine 10 mg tablet 10 mg PO tab 02/07/19 carvedilol 25 mg tablet 12.5 mg PO DAILY 02/07/19 Apixaban [Eliquis] 5 mg PO BID 04/23/19 Gabapentin 800 mg PO BID 04/23/19 Lisinopril [Prinivil] 10 mg PO DAILY 04/23/19 Surgical History: Surgical History (Last Reviewed 04/24/19 @ 18:01 by Lynne Robledo DO) History of left heart catheterization (LHC) (Resolved) Onset Date: ~09/14/16 Z98.890 Normal Coronaries....august 2016 at [facility] History of cardiac radiofrequency ablation (Resolved) Onset Date: ~02/25/13 Z98.890 PVC Ablation 02/25/13 @ [facility] 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) Z89.512 at [facility] for severe PVD with non-healing wounds and recurrent infections LLE History of cholecystectomy Z90.49 1998 History of surgical removal of testicle Z98.890, Z90.79 Surgical History: cholecystectomy, - - Left carotid endarterectomy 04/22/2019 at [facility]. Left BKA for severe peripheral vascular disease with nonhealing wounds, cellulitis and osteomyelitis. Multiple stents in both lower extremities secondary to peripheral vascular disease. Multiple debridements of nonhealing wounds of the left lower extremity. Psychiatric History: No pertinent psych hx Lives: With Family Smoking Status: Current every day smoker Tobacco Use: Cigarettes Alcohol: None Drugs: None - *Family History Maternal Family History: Family History (Last Reviewed 04/24/19 @ 18:03 by Lynne Robledo DO) Other CVA (cerebral vascular accident) Cancer Heart disease History Items: Cancer, Diabetes, Heart Disease, Renal Disease Paternal Family History: Family History (Last Reviewed 04/24/19 @ 18:03 by Lynne Robledo DO) Other CVA (cerebral vascular accident) Cancer Heart disease History Items: Cancer Review of Systems Constitutional: Denies: Chills, Fever, Malaise, Weight Change Eyes: Reports: Vision Change HEENT: Reports: Visual Changes. Denies: Head Aches, Sinus Congestion, Sinus Drainage, Sore Throat Cardiovascular: Denies: Chest Pain, Edema, Light Headedness, Palpitations, Syncope Respiratory: Denies: Cough, Shortness of breath at rest, Shortness of breath upon exertion, Sputum production Gastrointestinal: Denies: Abdominal Pain, Constipation, Diarrhea, Nausea, Vomiting Genitourinary: Denies: Dysuria Musculoskeletal: Reports: Leg Pain - chronic pain L LE more likely than not due to PAD....needs more surgery. Denies: Joint Pain, Joint Tenderness Skin: Denies: Rash, Wounds Neurological: Reports: Change in Speech, Focal weakness, - - he has aphasia and problems with expression. Denies: Numbness, Tingling, Seizures Psychiatric: Denies: Anxiety, Depression, Homicidal Ideations, Suicidal Ideations Endocrine: Denies: Change in Body Habitus, Hx of Thyroiditis Hematologic/ Lymphatic: Reports: Hx of blood clot. Denies: Easy Bruising, Easy Bleeding VTE Information - Inpt Only VTE Present on Admission: No VTE Mechan Device Prophylaxis: SCD's, Knee High KIRA Hose VTE Pharm Prophylaxis ordered?: No Reason prophylaxis not ordered:: Treatment Not Indicated - Recent L CEA on 04/12/19. He will be able to be restarted on Eliquis on 04/29/19. Patient Problems: Active and Suspected Problems (Last Reviewed 04/24/19 @ 03:58 by Nish Peace MD) History of carotid endarterectomy (Acute) 04/22/19 at [facility] Debility (Acute) due to L MCA stroke 04/17/19 Normochromic normocytic anemia (Acute) - Physical Exam Vitals/I&O's: Vital Signs Temp Pulse Resp BP Pulse Ox 97.8 F 82 18 154/92 H 95 04/23/19 22:00 04/23/19 22:00 04/23/19 22:00 04/23/19 22:00 04/24/19 07:40 Oxygen Delivery Method Room Air Weight: 182 lb 5.156 oz Body Mass Index (BMI) 23.3 Finger Stick Blood Glucose 103 Intake and Output for Last 24 Hours 04/22/19 04/23/19 04/24/19 23:59 23:59 23:59 Intake Total 250 / 250 Output Total 1400 / 1400 Balance -1150 / -1150 General: Alert, Oriented x3, Cooperative, No apparent distress, Well developed, Well nourished, - - sitting in a chair at the bedside. Having trouble expressing himself and getting appropriate words out HEENT: Atraumatic, PERRLA, EOMI, Normocephalic Oral: Moist Mucosa, No Gingival or Mucosal Lesions/ Ulcerations Neck: Supple, No JVD, Negative Carotid Bruits, No Nuchal Rigidity, Trachea Midline, - - there is a cicatrix on the left neck due to recent L CEA. there is no sign of infection Lungs: Clear to auscultation, Normal air movement, No rhonchi, No wheeze, No rales Cardiovascular: Regular rate, Regular Rhythm, Normal S1, Normal S2, No murmurs, No Ectopic Activity, No rub noted, No Gallop Abdomen: Bowel Sounds Present, Soft, Non Tender, Non-Distended Extremities: No clubbing, No cyanosis, No edema, Capillary Refill Less than 3 Seconds, - - He has a Left BKA and there are no openings in the skin. At the distal end there is basically skin covering bone and there is a tissue defect/deficit anterior below the knee Skin: No rashes, No breakdown, - - There is an area on the LUE proximal to the wrist on the flexor surface of erythema with no significant increased warmth to touch.....site of a prior IV Musculoskeletal: No Tenderness to Palpation of Joints or Extremities Neurological: Cranial nerves II-XII grossly intact, - - decreased sensation on the R face. Sensation is intact and equal on BL arms and legs. He has visual field Psych/Mental Status: Normal Affect, Appropriate Laboratory Results 04/24/19 05:46: WBC 6.5, RBC 4.37 L, Hgb 12.1 L, Hct 37.0 L, MCV 84.7, MCH 27.7, MCHC 32.7, RDW Std Deviation 49.3 H, RDW Coeff of Lawson 15.9 H, Plt Count 270, MPV 9.8 04/24/19 05:46: Sodium 135 L, Potassium 3.9, Chloride 104, Carbon Dioxide 24.0, Anion Gap 7, BUN 9, Creatinine 1.15, Estim Creat Clear Calc 86.37, Est GFR (MDRD) Af Amer 85, Est GFR (MDRD) Non-Af 71, BUN/Creatinine Ratio 7.8 L, Glucose 82, Calcium 8.4 L Current Medications Acetaminophen (Tylenol) 650 mg PO Q4H PRN PRN PRN Reason: Pain Score 1-3/10 Apixaban (Eliquis) 5 mg PO BID COUNTS INCLUDE 234 BEDS AT THE [facility] Aspirin (Aspirin) 325 mg PO DAILY@0800 COUNTS INCLUDE 234 BEDS AT THE [facility] Last Admin: 04/24/19 08:25 Dose: 325 mg Documented by: Bisacodyl (Dulcolax) 10 mg RECTAL .PRN X 1 PRN PRN Reason: Constipation Enoxaparin Sodium (Lovenox) 40 mg SC DAILY COUNTS INCLUDE 234 BEDS AT THE [facility] Gabapentin (Neurontin) 800 mg PO BID COUNTS INCLUDE 234 BEDS AT THE [facility] Last Admin: 04/24/19 08:24 Dose: 800 mg Documented by: Lisinopril (Zestril) 10 mg PO DAILY COUNTS INCLUDE 234 BEDS AT THE [facility] Last Admin: 04/24/19 08:24 Dose: 10 mg Documented by: Magnesium Hydroxide (Milk Of Magnesia) 30 ml PO .PRN X 1 PRN PRN Reason: Constipation Mupirocin (Bactroban) 1 applic TOPICAL TID COUNTS INCLUDE 234 BEDS AT THE [facility]; Protocol Stop: 04/27/19 10:00 Last Admin: 04/24/19 05:30 Dose: 1 applicatio Documented by: Senna/Docusate Sodium (Senokot-S, Ami-Colace) 2 tablet PO BID COUNTS INCLUDE 234 BEDS AT THE [facility] Last Admin: 04/24/19 08:24 Dose: 2 tablet Documented by: Sodium Chloride (Nowata Nasal [place]) 2 spray NASAL BID PRN PRN PRN Reason: NASAL DRYNESS Last Admin: 04/24/19 05:31 Dose: 2 sprays Documented by: Tramadol HCl (Ultram) 50 mg PO Q6H PRN PRN PRN Reason: Pain Score 4-10/10 Assessment/Plan All Active Problems (Last Reviewed 04/24/19 @ 03:58 by Nish Peace MD) History of carotid endarterectomy (Acute) Debility (Acute) Normochromic normocytic anemia (Acute) History of left heart catheterization (LHC) (Resolved ~09/14/16) History of cardiac radiofrequency ablation (Resolved ~02/25/13) JUAN (acute kidney injury) (Resolved) Dermatitis (Resolved) Ischemic ulcer of right foot (Resolved) Osteomyelitis of left lower extremity (Resolved) Thrush, oral (Resolved) Ulceration of below knee amputation stump (Resolved) Wound, surgical, nonhealing (Resolved) Impressions 1. Debility secondary to recent ischemic infarcts involving the left frontal lobe, left parietal lobe and left lateral occipital lobe with petechial hemorrhages in the left parietal?occipital region on 04/17/19. Deficits include R visual field cut, aphasia, R side weakness and decreased sensation of the R face. 2. S/P L CEA on 04/22/19 at [facility] for Left carotid thrombosis 3. Hypercoagulable disorder secondary to a positive lupus 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, positive anticardiolipin antibody and increased homocysteine level 4. Chronic anticoagulation with Eliquis-currently on hold until 05-16 when it can be restarted. 5. Nonischemic cardiomyopathy with a 27% ejection fraction on stress test on 02/18/2019. Cardiac catheterization in August 2016 revealed normal coronaries. 6. Tobacco dependence 7. Depression 8. Chronic renal failure stage III 9. Hyperlipidemia 10. Essential hypertension 11. Left bundle branch block 12. Peripheral arterial disease with stents in both lower extremities and a BKA on the left. The left SFA is occluded and he will be following up with Dr. Armstrong to arrange since he now has insurance again. The pt is a 53-year-old male with a PMH of as listed above who was admitted admitted to the Inpatient rehab unit at [facility] on 04/24/2019 for debility secondary to ischemic CVA in the left MCA distribution for greater than 3 hours of therapy daily with a goal of returning home at or near prior level of independence. The patient lives at home with his family. He does not drive. He has been primarily in a wheelchair since May 2018 when he had debridement of a nonhealing wound of the left BKA stump by Dr. Francois Massey. He will require further grafting of the L BKA stump after circulation is restored by Dr. Armstrong. He uses a walker occasionally to walk short distances where the wheelchair is unable to fit. The patient was independent with ADL's and mobility prior to hospitalization. PLAN PT for gait stability OT for ADL's ST for evaluation and treatment of aphasia/swallowing Analgesics as needed Bowel protocol Fall precautions Assess for Anxiety/Depression - started on Remeron at HS to help with insomnia/depression GI prophylaxis with Pepcid DVT prophylaxis with KIRA hose and SCDs until 05-16 when Eliquis 5 mg p.o. twice daily will be restarted. Held temporarily due to carotid endarterectomy on 04/22/2019. Follow up with Dr. Armstrong, Dr. Massey, Dr. Alonso and [facility] neurology following DC from [facility] Code Visit Inpatient E&M: 44758 Init Hosp L3
[2019-04-24] MEDS: Enoxaparin 40 MG/0.4 ML Syringe SC (10:53)
--- NOTE | 2019-04-24 13:00 | NURSING ---
Message left for Dr ma (vascular) office to schedule appt for pt. [phone]. per Dr Robledo.
--- NOTE | 2019-04-24 16:24 | CHAPLAIN ---
Type of Pastoral Visit _x__ Initial Visit ___ Follow-up Visit ___ On-call Visit ___ General Patient Visit ___ Spiritual Assessment ___ Family Conference ___ Bereavement ___ Rapid Response ___ Code Blue ___ Other (describe below) Pastoral Care Referral From _x__ Patient ___ Family ___ Nurse ___ Physician ___ Safety Deposit Clerk ___ Senior Software Development Engineer ___ Other (describe below) Sacrament/Intervention _x__ Active listening ___ Anointing ___ Bahai ___ Bereavement ___ Communion _x__ Misty exploration ___ _x__ Life review _x__ Prayer ___ Reconciliation ___ Sacrament of Sick _x__ Supportive presence ___ Wedding ___ Other (describe below) Pastoral Comments patient displays a positive attitude and attributes much to his misty; pt has family and confucianism support; pt would welcome future conversations with this payroll accounting manager
[2019-04-24 19:25] VITALS: BP 157/84; PULSE 74; RESP 18; TEMP 36.5; O2SAT 98
[2019-04-24] MEDS: Mirtazapine 15 MG Tablet PO (20:43)
--- NOTE | 2019-04-25 01:15 | NURSING ---
REVIEWED AND AGREE WIT DATA SYSTEMS MANAGER'S FUNCTIONAL ASSESSMENT AND HANDOFF CHARTING.
[2019-04-25] MEDS: Mupirocin Ointment 22gm Tube 1 APPLIC TOPICAL ×3 (05:57→21:04)
[2019-04-25] MEDS: Enoxaparin 40 MG/0.4 ML Syringe SC (05:58)
[2019-04-25 07:00] VITALS: BP 125/87; PULSE 98; RESP 16; TEMP 36.7; O2SAT 98
[2019-04-25] MEDS: Carvedilol 12.5 MG Tablet PO ×2 (08:14→21:04)
[2019-04-25] MEDS: Gabapentin 800 MG Tablet PO ×2 (08:14→21:04)
[2019-04-25] MEDS: Lisinopril 10 MG Tablet PO (08:14)
[2019-04-25] MEDS: Aspirin 325 MG Tablet PO (08:14)
[2019-04-25 11:43] VITALS: O2SAT 96
[2019-04-25 21:00] VITALS: BP 146/87; PULSE 79; RESP 18; TEMP 36.8; O2SAT 98
[2019-04-25] MEDS: Mirtazapine 15 MG Tablet PO (21:05)
[2019-04-26] MEDS: Mupirocin Ointment 22gm Tube 1 APPLIC TOPICAL ×3 (06:03→22:29)
[2019-04-26] MEDS: Enoxaparin 40 MG/0.4 ML Syringe SC (06:03)
[2019-04-26 07:15] VITALS: O2SAT 96
[2019-04-26] MEDS: Lisinopril 10 MG Tablet PO (07:56)
[2019-04-26] MEDS: Aspirin 325 MG Tablet PO (07:56)
[2019-04-26] MEDS: Gabapentin 800 MG Tablet PO ×2 (07:57→22:27)
[2019-04-26] MEDS: Carvedilol 12.5 MG Tablet PO ×2 (07:57→22:27)
[2019-04-26 08:34] VITALS: BP 109/70; PULSE 78; RESP 16; TEMP 36.6; O2SAT 97
--- NOTE | 2019-04-26 12:57 | PCM.PROGNOTE ---
Patient Problems: Active and Suspected Problems (Last Reviewed 04/24/19 @ 18:01 by Lynne Robledo DO) History of carotid endarterectomy (Acute) 04/22/19 at [facility] Debility (Acute) due to L MCA stroke 04/17/19 Normochromic normocytic anemia (Acute) Subjective: Afebrile Vital signs stable 96 to 97% saturation on room air States his pain is adequately controlled. Sleeping well at night Still feeling depressed......He is having cravings for a cigarette. Started on Remeron at admission for depression. Denies constipation Denies nausea/vomiting. - Physical Exam Vitals/I&O's: Vital Signs Temp Pulse Resp BP Pulse Ox 97.9 F 78 16 109/70 97 04/26/19 08:34 04/26/19 08:34 04/26/19 08:34 04/26/19 08:34 04/26/19 08:34 Oxygen Delivery Method Room Air Weight: 182 lb 5.156 oz Body Mass Index (BMI) 23.3 Finger Stick Blood Glucose 103 Intake and Output for Last 24 Hours 04/24/19 04/25/19 04/26/19 23:59 23:59 23:59 Intake Total 250 / 250 240 / 240 360 / 360 Output Total 1400 / 1400 Balance -1150 / -1150 240 / 240 360 / 360 General: Alert, Oriented x3, Cooperative, No apparent distress Oral: Moist Mucosa Neck: Supple Lungs: Clear to auscultation Cardiovascular: Regular rate, Regular Rhythm, No Gallop Abdomen: Bowel Sounds Present, Soft, Non Tender, Non-Distended Extremities: - - Status post left lower extremity BKA-no openings in the skin. Skin: No rashes, No breakdown Neurological: Cranial nerves II-XII grossly intact Psych/Mental Status: Appropriate, Depressed Current Medications Acetaminophen (Tylenol) 650 mg PO Q4H PRN PRN PRN Reason: Pain Score 1-3/10 Apixaban (Eliquis) 5 mg PO BID [facility] Aspirin (Aspirin) 325 mg PO DAILY@0800 [facility] Last Admin: 04/26/19 07:56 Dose: 325 mg Documented by: Bisacodyl (Dulcolax) 10 mg RECTAL .PRN X 1 PRN PRN Reason: Constipation Carvedilol (Coreg) 12.5 mg PO BID [facility] Last Admin: 04/26/19 07:57 Dose: 12.5 mg Documented by: Enoxaparin Sodium (Lovenox) 40 mg SC DAILY@0600 [facility] Last Admin: 04/26/19 06:03 Dose: 40 mg Documented by: Gabapentin (Neurontin) 800 mg PO BID [facility] Last Admin: 04/26/19 07:57 Dose: 800 mg Documented by: Lisinopril (Zestril) 10 mg PO DAILY [facility] Last Admin: 04/26/19 07:56 Dose: 10 mg Documented by: Magnesium Hydroxide (Milk Of Magnesia) 30 ml PO .PRN X 1 PRN PRN Reason: Constipation Mirtazapine (Remeron) 15 mg PO QHS [facility] Last Admin: 04/25/19 21:05 Dose: 15 mg Documented by: Mupirocin (Bactroban) 1 applic TOPICAL TID [facility]; Protocol Stop: 04/27/19 10:00 Last Admin: 04/26/19 06:03 Dose: 1 applicatio Documented by: Senna/Docusate Sodium (Senokot-S, Ami-Colace) 2 tablet PO BID [facility] Last Admin: 04/26/19 07:56 Dose: Not Given Documented by: Sodium Chloride ([place] Nasal [place]) 2 spray NASAL BID PRN PRN PRN Reason: NASAL DRYNESS Last Admin: 04/24/19 05:31 Dose: 2 sprays Documented by: Tramadol HCl (Ultram) 50 mg PO Q6H PRN PRN PRN Reason: Pain Score 4-10/10 Medical Necessity - Tobacco Use Smoking Status: Current every day smoker Tobacco Use: Cigarettes Assessment/Plan All Active Problems (Last Reviewed 04/24/19 @ 18:01 by Lynne Robledo DO) History of carotid endarterectomy (Acute) Debility (Acute) Normochromic normocytic anemia (Acute) History of left heart catheterization (LHC) (Resolved ~09/14/16) History of cardiac radiofrequency ablation (Resolved ~02/25/13) JUAN (acute kidney injury) (Resolved) Dermatitis (Resolved) Ischemic ulcer of right foot (Resolved) Osteomyelitis of left lower extremity (Resolved) Thrush, oral (Resolved) Ulceration of below knee amputation stump (Resolved) Wound, surgical, nonhealing (Resolved) Impressions 1. Debility secondary to recent ischemic infarcts involving the left frontal lobe, left parietal lobe and left lateral occipital lobe with petechial hemorrhages in the left parietal?occipital region on 04/17/19. Deficits include R visual field cut, aphasia, R side weakness and decreased sensation of the R face. 2. S/P L CEA on 04/22/19 at [facility] for Left carotid thrombosis 3. Hypercoagulable disorder secondary to a positive lupus 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, positive anticardiolipin antibody and increased homocysteine level 4. Chronic anticoagulation with Eliquis-currently on hold until 05-16 when it can be restarted. 5. Nonischemic cardiomyopathy with a 27% ejection fraction on stress test on 02/18/2019. Cardiac catheterization in August 2016 revealed normal coronaries. 6. Tobacco dependence -smoking cessation counseling was given. Patient is agreeable to trying a nicotine patch now also a 21 mg patch was ordered. He was smoking 1 pack to 1-1/2 packs daily at home for the past 6 months. 7. Depression 8. Chronic renal failure stage III 9. Hyperlipidemia 10. Essential hypertension 11. Left bundle branch block 12. Peripheral arterial disease with stents in both lower extremities and a BKA on the left. The left SFA is occluded and he will be following up with Dr. Armstrong to arrange since he now has insurance again. The pt is a 53-year-old male with a PMH of as listed above who was admitted admitted to the Inpatient rehab unit at [facility] on 04/24/2019 for debility secondary to ischemic CVA in the left MCA distribution for greater than 3 hours of therapy daily with a goal of returning home at or near prior level of independence. The patient lives at home with his family. He does not drive. He has been primarily in a wheelchair since May 2018 when he had debridement of a nonhealing wound of the left BKA stump by Dr. Francois Massey. He will require further grafting of the L BKA stump after circulation is restored by Dr. Armstrong. He uses a walker occasionally to walk short distances where the wheelchair is unable to fit. The patient was independent with ADL's and mobility prior to hospitalization. PLAN PT for gait stability OT for ADL's ST for evaluation and treatment of aphasia/swallowing Analgesics as needed Bowel protocol Fall precautions Assess for Anxiety/Depression - started on Remeron at HS to help with insomnia/depression GI prophylaxis with Pepcid DVT prophylaxis with KIRA nicholsone and SCDs until 05-16 when Eliquis 5 mg p.o. twice daily will be restarted. Held temporarily due to carotid endarterectomy on 04/22/2019. Follow up with Dr. Armstrong, Dr. Massey, Dr. Alonso and [facility] neurology following DC from Rehab Code Visit Inpatient E&M: 48491 Subs Hosp L1
[2019-04-26 19:00] VITALS: BP 145/91; PULSE 90; RESP 16; TEMP 36.8; O2SAT 98
[2019-04-26] MEDS: Mirtazapine 15 MG Tablet PO (22:27)
[2019-04-27] MEDS: Mupirocin Ointment 22gm Tube 1 APPLIC TOPICAL (05:24)
[2019-04-27] MEDS: Enoxaparin 40 MG/0.4 ML Syringe SC (05:25)
[2019-04-27 07:00] VITALS: BP 120/74; PULSE 80; RESP 18; TEMP 36.6; O2SAT 95
[2019-04-27 07:26] VITALS: O2SAT 98
[2019-04-27] MEDS: Gabapentin 800 MG Tablet PO ×2 (07:34→21:35)
[2019-04-27] MEDS: Carvedilol 12.5 MG Tablet PO ×2 (07:34→21:35)
[2019-04-27] MEDS: Aspirin 325 MG Tablet PO (07:34)
[2019-04-27] MEDS: Lisinopril 10 MG Tablet PO (07:34)
[2019-04-27 19:53] VITALS: BP 107/68; PULSE 84; RESP 16; TEMP 36.6; O2SAT 98
[2019-04-27] MEDS: Mirtazapine 15 MG Tablet PO (21:35)
--- NOTE | 2019-04-28 01:48 | NURSING ---
REVIEWED AND AGREE WITH HAND CROWN POUNCER'S FUNCTIONAL ASSESSMENT AND HANDOFF CHARTING.
[2019-04-28] MEDS: Enoxaparin 40 MG/0.4 ML Syringe SC (05:31)
--- NOTE | 2019-04-28 05:36 | NURSING ---
pt offered am shower at this time, pt refused and stated that he washed up yesterday and did not need a shower this am. pt requested that his clothes be laid next to him and states that he will dress himself at a later time. staff agreeable, reminds pt to call for assistance if he needs to stand. call light within reach.
[2019-04-28 07:00] VITALS: BP 110/71; PULSE 75; RESP 16; TEMP 36.6; O2SAT 98
[2019-04-28] MEDS: Aspirin 325 MG Tablet PO (07:44)
[2019-04-28] MEDS: Lisinopril 10 MG Tablet PO (07:44)
[2019-04-28] MEDS: Carvedilol 12.5 MG Tablet PO ×2 (07:44→21:02)
[2019-04-28] MEDS: Gabapentin 800 MG Tablet PO ×2 (07:44→21:02)
[2019-04-28 21:00] VITALS: PULSE 88; O2SAT 100
[2019-04-28] MEDS: Mirtazapine 15 MG Tablet PO (21:02)
[2019-04-28 21:27] VITALS: BP 133/89; PULSE 88; RESP 20; TEMP 36.5; O2SAT 100
--- NOTE | 2019-04-29 03:54 | NURSING ---
REVIEWED AND AGREE WITH ELEMENTARY VOCAL MUSIC TEACHER'S FUNCTIONAL ASSESSMENT AND HANDOFF CHARTING.
[2019-04-29] MEDS: Enoxaparin 40 MG/0.4 ML Syringe SC (05:22)
[2019-04-29 07:24] VITALS: BP 110/71; PULSE 80; RESP 16; TEMP 36.6; O2SAT 98
[2019-04-29 07:29] LABS: M R Staph aureus DNA By PCR Negative (Negative); Probe Check PASS; Specimen Processing Control PASS
[2019-04-29] MEDS: Lisinopril 10 MG Tablet PO (07:42)
[2019-04-29] MEDS: Carvedilol 12.5 MG Tablet PO (07:42)
[2019-04-29] MEDS: Gabapentin 800 MG Tablet PO (07:42)
[2019-04-29] MEDS: Aspirin 325 MG Tablet PO (07:42)
--- NOTE | 2019-04-29 08:40 | PCM.PROGNOTE ---
Patient Problems: Active and Suspected Problems (Last Reviewed 04/24/19 @ 18:01 by Lynne Robledo DO) History of carotid endarterectomy (Acute) 04/22/19 at [facility] Debility (Acute) due to L MCA stroke 04/17/19 Normochromic normocytic anemia (Acute) Subjective: Afebile VSS-blood pressure has improved with adjustment in the antihypertensive regimen Maintaining appropriate oxygen saturation on RA Oral intake is good. Denies lightheadedness. MRSA nasal swab was negative following decolonization with Bactroban and chlorhexidine Discussed with nursing - no problems that need addressed Reviewed the PT/OT notes Medication list reviewed. - Physical Exam Vitals/I&O's: Vital Signs Temp Pulse Resp BP Pulse Ox 98 F 80 16 110/71 98 04/29/19 07:24 04/29/19 07:24 04/29/19 07:24 04/29/19 07:24 04/29/19 07:24 Oxygen Delivery Method Room Air Weight: 182 lb 5.156 oz Body Mass Index (BMI) 23.3 Finger Stick Blood Glucose 103 Intake and Output for Last 24 Hours 04/27/19 04/28/19 04/29/19 23:59 23:59 23:59 Intake Total 240 / 240 480 / 480 240 / 240 Output Total 1200 / 1200 Balance -960 / -960 480 / 480 240 / 240 Laboratory Results 04/29/19 05:49: MRSA (PCR) Negative Current Medications Acetaminophen (Tylenol) 650 mg PO Q4H PRN PRN PRN Reason: Pain Score 1-3/10 Apixaban (Eliquis) 5 mg PO BID [facility] Aspirin (Aspirin) 325 mg PO DAILY@0800 [facility] Last Admin: 04/29/19 07:42 Dose: 325 mg Documented by: Bisacodyl (Dulcolax) 10 mg RECTAL .PRN X 1 PRN PRN Reason: Constipation Carvedilol (Coreg) 12.5 mg PO BID [facility] Last Admin: 04/29/19 07:42 Dose: 12.5 mg Documented by: Enoxaparin Sodium (Lovenox) 40 mg SC DAILY@0600 [facility] Last Admin: 04/29/19 05:22 Dose: 40 mg Documented by: Gabapentin (Neurontin) 800 mg PO BID [facility] Last Admin: 04/29/19 07:42 Dose: 800 mg Documented by: Lisinopril (Zestril) 10 mg PO DAILY [facility] Last Admin: 04/29/19 07:42 Dose: 10 mg Documented by: Magnesium Hydroxide (Milk Of Magnesia) 30 ml PO .PRN X 1 PRN PRN Reason: Constipation Mirtazapine (Remeron) 15 mg PO QHS [facility] Last Admin: 04/28/19 21:02 Dose: 15 mg Documented by: Nicotine (Nicoderm Cq (Pbkc)) 21 mg TRANSDERM. DAILY [facility] Last Admin: 04/29/19 07:41 Dose: Not Given Documented by: Senna/Docusate Sodium (Senokot-S, Ami-Colace) 2 tablet PO BID [facility] Last Admin: 04/29/19 07:41 Dose: Not Given Documented by: Sodium Chloride ([place] Nasal [place]) 2 spray NASAL BID PRN PRN PRN Reason: NASAL DRYNESS Last Admin: 04/24/19 05:31 Dose: 2 sprays Documented by: Tramadol HCl (Ultram) 50 mg PO Q6H PRN PRN PRN Reason: Pain Score 4-10/10 Medical Necessity - Tobacco Use Smoking Status: Current every day smoker Tobacco Use: Cigarettes Assessment/Plan All Active Problems (Last Reviewed 04/24/19 @ 18:01 by Lynne Robledo DO) History of carotid endarterectomy (Acute) Debility (Acute) Normochromic normocytic anemia (Acute) History of left heart catheterization (LHC) (Resolved ~09/14/16) History of cardiac radiofrequency ablation (Resolved ~02/25/13) JUAN (acute kidney injury) (Resolved) Dermatitis (Resolved) Ischemic ulcer of right foot (Resolved) Osteomyelitis of left lower extremity (Resolved) Thrush, oral (Resolved) Ulceration of below knee amputation stump (Resolved) Wound, surgical, nonhealing (Resolved)
--- NOTE | 2019-04-29 10:30 | PCM.DC ---
- Discharge Diagnoses Current Active Problems: Current Active and Chronic Problems (Last Reviewed 04/24/19 @ 18:01 by Lynne Robledo DO) History of carotid endarterectomy (Acute) 04/22/19 at [facility] History of ischemic left MCA stroke (Chronic) 04/17/19 Debility (Acute) due to L MCA stroke 04/17/19 Normochromic normocytic anemia (Acute) Chronic renal failure, stage 2-3 (moderate) (Chronic) LBBB (left bundle branch block) (Chronic) Depression (Chronic) Tobacco dependence You will use the following diet at home:: Cardiac - low salt, low fat Your food should be the consistency of: Regular Your liquids should be the consistency of: Regular/Thin Discharge Activity: May Not Drive, Use Walker, - - use Wheelchair May resume sexual activity in: No Restrictions Weight Bearing Status: Full weight bearing Call your doctor if your incision/area has: Continuous Slow Oozing, Sudden Increased Bleeding, Increased Pain/ Swelling, Increased Redness, Foul Smelling Discharge, Swelling at the incision site Call your doctor if you observe: Fever of 101 or Higher, Inability to urinate, Inability to have a bowel movement, Shortness of breath, Dizziness, Fainting spells, Swelling in the ankles, Chest pain, Increased palpitations (irregular heartbeat), Calf discomfort, Uncontrolled pain Additional Dressing/Incision Instructions:: Check the surgery site daily. If there is any bleeding, discharge, increasing redness around the incision, increasing warmth to touch around the wound call Dr. Alonso or [facility] or the ED. In 2 weeks you can start some gentle massage of the area.....no too hard because, it could slow the heart rate down. Applying vitamin E oil daily can also held with the thickening of the scar so it will lie smoother in the future. I takes about a year and sometimes more for the scar tissue to completely reorganize and lay flat. Instructions: Tips for Quitting Smoking (Cardiovascular), Why Do You Smoke?, Planning to Quit Smoking, Getting Support for Quitting Smoking Additional Instructions: 1. You unfortunately have a blood clotting disorder (actually there are 3 separate disorders) that cause your blood to clot more easily than normal. For this reason you are on a blood thinner called Eliquis. Smoking also causes your blood to clot faster than normal. Smoking is VERY hard to quit. You smoke to help control your anxiety and depressions. It is even harder to quit smoking when you have unrelieved anxiety/depression. I have started you on an anti-depressant called Remeron which seems to be helping....it can take up to 3-4 weeks to get the full benefit of an antidepressant. I have also given you a prescription for a Nicotine patch. If you have cravings or you smoke a cigarrette please call Dr. Alonso to discuss what we can do to help. [facility] has a smoking cessation program. So does [facility]. Don't be afraid to ask for help. Just call the hospital at [phone] and ask to be connected to the smoking cessation coordinator. 2. You need to have additional surgery on the left leg to improve the circulation. you have an outstanding balance of $[address] Armstrong......if you can pay this he will see you. If you are unable to pay Dr. Armstrong then you can be seen by the [facility]ascular surgeon at [facility]......you have an appt with him coming up. After circulation is restored then Dr. Massey can do his Graft and maybe you will be able to use a prosthetic limb again. Circulation is VERY important........blood carries oxygen and nutrition to the cells and if they do not get nutrition and oxygen they breakdown and create an ulcer. You know how this works because you lost the Left lower leg because of this. Blood flow also carries white blood cells that fight infection so if you get an opening in the skin and it gets infected if is harder to resolve the infection becase the white blood cells do not get to the wound to help fight the infection. Keep trying and ASK FOR HELP if you start smoking. 3. The MRSA nasal swab was negative. 4. You will be taking the Coreg twice daily and it is doing a good job controlling the BP. You will no longer take Amlodipine. If the pain gets worse in the left leg tell Dr. Alonso.......Coreg is a beta fco and these drugs have the potential of decreasing the blood flow in the legs. If the decreased circulation reaches a more critical level in the left leg the Coreg may need to be stopped at that point. GOOD LUCK Regis. It was a pleasure seeing you again and I am thrilled you got better so fast. Hang in there and have a Christine Tez. Pending Tests on Discharge: none Allergies/Adverse Reactions: Allergies Penicillins Allergy (Verified 04/17/19 11:40) Swelling adhesive tape Adverse Reaction (Verified 04/17/19 11:40) Rash oxycodone [From OxyContin] Adverse Reaction (Verified 04/17/19 11:40) Other it makes me go nuts Medications to take at Discharge Apixaban [Eliquis] 5 mg PO BID 04/23/19 Gabapentin 800 mg PO BID 04/23/19 Lisinopril [Prinivil] 10 mg PO DAILY 04/23/19 Acetaminophen [Tylenol Tablet] 650 mg PO Q4H PRN PRN tablet 04/29/19 Aspirin 325 mg PO DAILY@0800 tablet 04/29/19 Carvedilol [Coreg (Beta Fco)] 12.5 mg PO BID #60 tab 04/29/19 Mirtazapine [Remeron] 15 mg PO QHS #30 tab 04/29/19 Nicotine [Nicotine Patch] 1 ea TD DAILY #28 [id number] 04/29/19 The following prescriptions were given: Carvedilol [Coreg (Beta Fco)] 12.5 mg PO BID #60 tab Transmission Status: Pending to [facility] Nicotine [Nicotine Patch] 1 ea TD DAILY #28 [id number] Transmission Status: Pending to [facility] Mirtazapine [Remeron] 15 mg PO QHS #30 tab Transmission Status: Pending to [facility] Primary Care Physician: Dharmesh Alonso MD [Primary Care Provider] - Please follow up with your Primary Care Physician in: 1 week Test Results: Test results from this visit will be discussed in further detail at your follow-up appointment, if applicable. Proposed Discharge Date: 04/29/19
--- NOTE | 2019-04-29 10:52 | CASEMGMT ---
Social Work IDT met with patient for Team Meeting. Discussed patient's progress in therapy. Pt was functioning at w/c level prior to admission d/t left BKA. Pt is currently supervision/independent with all ADLs. Pt has been on multiple surfaces, walked 125 ft FWW CGA, completed 10 steps with 2 HR CGA - however pt has ramp at home. ST is working on word finding, memory, med and money management. Pt having difficulty following directions at higher level tasks. Pt is aware of deficit ans can get frustrated. Physician started pt on antidepressant upon admission and pt reporting improvement. Pt has stopped smoking and will DC home on patch. Pt is requesting to DC home on this date - can assist at home. Pt agreeable to outpatient ST at [facility]. No DME needs. Explained insurance with update on this date. Plan: DC home 04/29 with [facility]
--- NOTE | 2019-04-29 11:22 | PCM.DC.SUM ---
Discharge Date and Diagnosis - Problem List Patient Problems: Active and Suspected Problems (Last Reviewed 04/24/19 @ 18:01 by Lynne Robledo DO) History of carotid endarterectomy (Acute) 04/22/19 at [facility] Debility (Acute) due to L MCA stroke 04/17/19 Normochromic normocytic anemia (Acute) Date of Admission: 04/23/19 Date of Discharge: 04/29/19 - Primary Discharge Diagnosis Active and Suspected Problems (Last Reviewed 04/24/19 @ 18:01 by Lynne Robledo DO) Debility (Acute) due to L MCA stroke 04/17/19 History of carotid endarterectomy (Acute) 04/22/19 at [facility] Normochromic normocytic anemia (Acute)- likely due to surgery Depression - untreated at admission Nicotine dependence - Secondary Discharge Diagnosis Chronic Problems (Last Reviewed 04/24/19 @ 18:01 by Lynne Robledo DO) Chronic renal failure, 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) Patient is on Coumadin for PE Peripheral arterial disease (Chronic) BL LE's....multiple stents in both legs Hypercoagulable state (Chronic) Positive lupus 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, positive anticardiolipin anti B IgM, and increased homocystine level Hospital Course and Treatment Imaging Results: Laboratory Tests 04/29/19 04/24/19 04/24/19 Range/Units 05:49 05:46 05:46 WBC 6.5 (4.4-11.0) K/mm3 RBC 4.37 L (4.6-6.2) M/mm3 Hgb 12.1 L (13.0-16.5) g/dL Hct 37.0 L (40-54) % MCV 84.7 (80-94) fL MCH 27.7 (27.0-32.0) pg MCHC 32.7 (32-36) g/dL RDW Std Deviation 49.3 H (35.1-43.9) fl RDW Coeff of Lawson 15.9 H (11.6-14.6) % Plt Count 270 (150-450) K/mm3 MPV 9.8 (6.2-12.0) fl Sodium 135 L (136-145) mmol/L Potassium 3.9 (3.5-5.1) mmol/L Chloride 104 (98-107) mmol/L Carbon Dioxide 24.0 (21.0-32.0) mmol/L Anion Gap 7 (5-15) BUN 9 (7-18) mg/dL Creatinine 1.15 (0.70-1.30) mg/dL Estim Creat Clear Calc 86.37 ml/min Est GFR (MDRD) Af Amer 85 (>60) mL/min Est GFR (MDRD) Non-Af 71 (>60) mL/min BUN/Creatinine Ratio 7.8 L (10-20) RATIO Glucose 82 (74-106) mg/dL Calcium 8.4 L (8.5-10.1) mg/dL MRSA (PCR) Negative (Negative) none Operations: - - 05/25/18 - 1. Surgical preparation left BKA stump with excisional debridement nonhealing infected ulcer. 2. Complex secondary wound closure revision reconstruction with re-advancement muscle flap and bipedicle anterior leg fasciocutaneous advancement flap and STSG from the left flank (60 cm2). Procedures: None Summary of Care Provided: The pt is a 53-year-old male with a PMH of peripheral arterial disease, hypercoagulable disorder secondary to positive lupus 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, positive anticardiolipin antibody and increased homocystine level, nonischemic cardiomyopathy with a 27% ejection fraction, history of ablation for cardiac dysrhythmia, carotid vascular disease, chronic renal failure stage II?3, hyperlipidemia, hypertension, left bundle branch block, left BKA and tobacco dependence who had an ischemic CVA in the left frontal, left parietal, left lateral occipital lobes and left frontal lobe on 04/17/2019 with petechial hemorrhage in the parietal-occipital lobes. He was not a candidate for TPA. He was transferred from [facility] to [facility] on 04/17/2019 for follow-up care. He underwent left carotid endarterectomy on 04/22/2019. Eliquis was held due to the surgery until 04/29/19 and it was restarted on the day of discharge from the Inpt rehab unit. He was admitted to the Inpatient rehab unit at [facility] on 04/24/2019 for debility secondary to ischemic CVA in the left MCA distribution for greater than 3 hours of therapy daily with a goal of returning home at or near prior level of independence. He lives at home with his family. He does not drive. He has been primarily in a wheelchair since May 2018 when he had debridement of a nonhealing wound of the left BKA stump by Dr. Francois Massey. He will require further grafting of the L BKA stump after circulation is restored by vascular surgery. He uses a walker occasionally to walk short distances at home where the wheelchair is unable to fit. The patient was independent with ADL's and mobility prior to hospitalization. At admission he admitted to being depressed. He had quit smoking but, started smoking again in the summer of 2018 when he lost his job and his insurance. He smokes to help control anxiety and depression. He admitted to having insomnia and decreased interest in his usual activities. He was tearful when I first interviewed him. He was started on Remeron at and sleeping has significantly improved. His mood is better and his performance in PT/OT/ST has steadily improved. His attitude is more positive. On 04/29/19 he requested to be discharged. PT/OT/ST agreed that he was ready for DC but, OP ST was recommended and this was arranged by the [facility]. He was discharged home on 04/29/19. Prescriptions were given for Remeron 15 mg p.o. nightly, a nicotine patch 14 mg daily and Coreg 12.5 mg twice daily. At the time of admission he was taking Coreg 12.5 mg twice daily and blood pressure was not adequately controlled. The dose was increased to 12.5 mg twice daily and his blood pressures are now well controlled. He denied pain in the left lower extremity at discharge even with the increased dose of Coreg. In the future if he develops left lower extremity pain prior to revascularization and it becomes more critical would consider discontinuation of beta-fco and using other medications for blood pressure control. Smoking cessation counseling was given in the hospital and he was referred to the outpatient smoking cessation program at [facility] at discharge. He will follow up with the neurologist at [facility]. He will also follow up with Vascular surgery to arrange for intervention for PAD LLE. Following re-vascularization he will follow up with Dr. Massey for additional grafting of the left stump so that he may again be able to wear a prosthesis on the LLE. He will follow up with Dr. Alonso in 1 week to have the BP checked. He is not on a statin at [place]. I gave him a lab slip to obtain a fasting lipid panel prior to his visit with Dr. Alonso. If the LDL is not less than 70 he will need to be started on a statin. Vital signs at discharge temp 98 ?F, pulse rate 80, blood pressure 110/71, respiratory rate 16 and he was 98% saturated on room air General: Alert, Oriented x3, Cooperative, No apparent distress Oral: Moist Mucosa Neck: Supple Lungs: Clear to auscultation, good air exchange Cardiovascular: Regular rate, Regular Rhythm, No Gallop, no MM, no rub Abdomen: Bowel Sounds Present, Soft, Non Tender, Non-Distended Extremities: - - Status post left lower extremity BKA-no openings in the skin. Skin: No rashes, No breakdown Neurological: Cranial nerves II-XII grossly intact Psych/Mental Status: Appropriate, mood is more upbeat and he is smiling when seen on rounds with the rehab team. This note was generated with [employer] dictation software. It may contain incorrect words, spelling, and punctuation that were not noted in checking the note before signing. Patient Problems: Active and Suspected Problems (Last Reviewed 04/24/19 @ 18:01 by Lynne Robledo DO) History of carotid endarterectomy (Acute) 04/22/19 at [facility] Debility (Acute) due to L MCA stroke 04/17/19 Normochromic normocytic anemia (Acute) - Physical Exam Vitals/I&O's: Vital Signs Temp Pulse Resp BP Pulse Ox 98 F 80 16 110/71 98 04/29/19 07:24 04/29/19 07:24 04/29/19 07:24 04/29/19 07:24 04/29/19 07:24 Oxygen Delivery Method Room Air Weight: 182 lb 5.156 oz Body Mass Index (BMI) 23.3 Finger Stick Blood Glucose 103 Intake and Output for Last 24 Hours 04/27/19 04/28/19 04/29/19 23:59 23:59 23:59 Intake Total 240 / 240 480 / 480 240 / 240 Output Total 1200 / 1200 Balance -960 / -960 480 / 480 240 / 240 Laboratory Results 04/29/19 05:49: MRSA (PCR) Negative Current Medications Acetaminophen (Tylenol) 650 mg PO Q4H PRN PRN PRN Reason: Pain Score 1-3/10 Apixaban (Eliquis) 5 mg PO BID [facility] Aspirin (Aspirin) 325 mg PO DAILY@0800 [facility] Last Admin: 04/29/19 07:42 Dose: 325 mg Documented by: Bisacodyl (Dulcolax) 10 mg RECTAL .PRN X 1 PRN PRN Reason: Constipation Carvedilol (Coreg) 12.5 mg PO BID [facility] Last Admin: 04/29/19 07:42 Dose: 12.5 mg Documented by: Enoxaparin Sodium (Lovenox) 40 mg SC DAILY@0600 [facility] Last Admin: 04/29/19 05:22 Dose: 40 mg Documented by: Gabapentin (Neurontin) 800 mg PO BID [facility] Last Admin: 04/29/19 07:42 Dose: 800 mg Documented by: Lisinopril (Zestril) 10 mg PO DAILY [facility] Last Admin: 04/29/19 07:42 Dose: 10 mg Documented by: Magnesium Hydroxide (Milk Of Magnesia) 30 ml PO .PRN X 1 PRN PRN Reason: Constipation Mirtazapine (Remeron) 15 mg PO QHS [facility] Last Admin: 04/28/19 21:02 Dose: 15 mg Documented by: Nicotine (Nicoderm Cq (Pbkc)) 21 mg TRANSDERM. DAILY [facility] Last Admin: 04/29/19 07:41 Dose: Not Given Documented by: Senna/Docusate Sodium (Senokot-S, Ami-Colace) 2 tablet PO BID [facility] Last Admin: 04/29/19 07:41 Dose: Not Given Documented by: Sodium Chloride ([place] Nasal [place]) 2 spray NASAL BID PRN PRN PRN Reason: NASAL DRYNESS Last Admin: 04/24/19 05:31 Dose: 2 sprays Documented by: Tramadol HCl (Ultram) 50 mg PO Q6H PRN PRN PRN Reason: Pain Score 4-10/10 Discharge Activity: May Not Drive, Use Walker, - - use Wheelchair May resume sexual activity in: No Restrictions Weight Bearing Status: Full weight bearing Call your doctor if your incision/area has: Continuous Slow Oozing, Sudden Increased Bleeding, Increased Pain/ Swelling, Increased Redness, Foul Smelling Discharge, Swelling at the incision site Call your doctor if you observe: Fever of 101 or Higher, Inability to urinate, Inability to have a bowel movement, Shortness of breath, Dizziness, Fainting spells, Swelling in the ankles, Chest pain, Increased palpitations (irregular heartbeat), Calf discomfort, Uncontrolled pain Additional Dressing/Incision Instructions:: Check the surgery site daily. If there is any bleeding, discharge, increasing redness around the incision, increasing warmth to touch around the wound call Dr. Alonso or go the the ur[facility]are or the ED. In 2 weeks you can start some gentle massage of the area.....no too hard because, it could slow the heart rate down. Applying vitamin E oil daily can also held with the thickening of the scar so it will lie smoother in the future. I takes about a year and sometimes more for the scar tissue to completely reorganize and lay flat. Home Medications: Medications to take at Discharge Apixaban [Eliquis] 5 mg PO BID 04/23/19 Gabapentin 800 mg PO BID 04/23/19 Lisinopril [Prinivil] 10 mg PO DAILY 04/23/19 Acetaminophen [Tylenol Tablet] 650 mg PO Q4H PRN PRN tablet 04/29/19 Aspirin 325 mg PO DAILY@0800 tablet 04/29/19 Carvedilol [Coreg (Beta Fco)] 12.5 mg PO BID #60 tab 04/29/19 Mirtazapine [Remeron] 15 mg PO QHS #30 tab 04/29/19 Nicotine [Nicotine Patch] 1 ea TD DAILY #28 patch.[id number] 04/29/19 Following Prescrptions Were Given to Patient: Carvedilol [Coreg (Beta Fco)] 12.5 mg PO BID #60 tab Transmission Status: Pending to [facility] Nicotine [Nicotine Patch] 1 ea TD DAILY #28 patch.[email or web address] Transmission Status: Pending to [facility] Mirtazapine [Remeron] 15 mg PO QHS #30 tab Transmission Status: Pending to [facility] Primary Care Physician: Dharmesh Alonso MD [Primary Care Provider] - Please follow up with your Primary Care Physician in: 1 week Patient Instructions: Tips for Quitting Smoking (Cardiovascular), Why Do You Smoke?, Planning to Quit Smoking, Getting Support for Quitting Smoking Disposition: Home Minutes spent on discharge:: 40 Patient Condition:: Good Medical Necessity - Tobacco Use Smoking Status: Current every day smoker Tobacco Use: Cigarettes Meaningful Use Info Meaningful Use Diagnoses (Choose all that apply): Ischemic CVA - CVA Therapy Assessed for PT,OT and/or ST?: Yes - Ischemic Stroke Antithrombotic order at d/c?: Yes Dx of Atrial fib/flutter?: No Anticoagulant at discharge?: Yes Statins at discharge?: No Reason Statin not ordered: Adverse Reaction to Drug Primary Dx Acute Ischemic CVA?: Yes IV tPA ordered during stay?: No Reason IV t-PA not ordered: Medical Contraindication Code Visit Inpatient E&M: 61676 [facility] L3
[2019-04-29 12:00] VITALS: BP 110/71; PULSE 80; RESP 16; TEMP 36.7; O2SAT 98
--- NOTE | 2019-04-29 12:00 | NURSING ---
Patient and family aware of discharge instructions and verbalized understanding. Also verbalized understanding to seeing Dr. Armstrong vascular if negative balance is paid otherwise to pursue going to [place] for appt there. Aware of quitting smoking, wound care management to neck, and new medications that are ordered. Patient also agreed to go have lab drawn in a few days as Dr. Robledo ordered.
== END 2019-04-29 12:00 | disposition home or self-care (01) | DRG 58 ==
PROVIDERS: Hospitalist; Student in an Organized Health Care Education/Training Program; Admitting Provider Internal Medicine; Family Provider Internal Medicine; PCP Internal Medicine; Visit Provider Family Medicine
DX: I69.351 Hemiplegia and hemiparesis following cerebral infarction affecting right dominant side (principal); I69.398 Other sequelae of cerebral infarction; I69.320 Aphasia following cerebral infarction; H53.8 Other visual disturbances; R20.8 Other disturbances of skin sensation; E78.5 Hyperlipidemia, unspecified; I12.9 Hypertensive chronic kidney disease with stage 1 through stage 4 chronic kidney disease, or unspecified chronic kidney disease; N18.3 Chronic kidney disease, stage 3 (moderate); F32.9 Major depressive disorder, single episode, unspecified; D64.9 Anemia, unspecified; I73.9 Peripheral vascular disease, unspecified; Z89.512 Acquired absence of left leg below knee; Z86.711 Personal history of pulmonary embolism; D68.62 Lupus anticoagulant syndrome; F17.210 Nicotine dependence, cigarettes, uncomplicated; M19.90 Unspecified osteoarthritis, unspecified site; Z86.718 Personal history of other venous thrombosis and embolism; I42.0 Dilated cardiomyopathy; Z86.14 Personal history of Methicillin resistant Staphylococcus aureus infection; I48.0 Paroxysmal atrial fibrillation; I44.7 Left bundle-branch block, unspecified
CPT/HCPCS: 36415; 80048; 85027; 87641; 92507; 92523; 97110; 97116; 97162; 97166; 97530; 97535; 97542; 97802; 99251; 99406; G0463

== ENCOUNTER 2019-07-03 00:24 | Inpatient (IN) | payer BC, SELFPAY ==
[2019-04-23 20:15] VITALS: BMI 23.3
[2019-07-03] VITALS (63 sets, daily range): BP systolic 69–169; BP diastolic 41–117; PULSE 90–156; RESP 10–28; TEMP 35.1–38.6; O2SAT 92–100; BMI 29.8; BMI 24.1
[2019-07-03] MEDS: Etomidate 20 MG/10 ML Vial IV (00:26)
[2019-07-03] MEDS: Succinylcholine Chloride 200 MG/10 ML Vial 100 MG IV (00:26)
[2019-07-03] MEDS: Propofol 10MG/Ml 1,000 MG/100 ML Bottle 6 MG CONT INF ×2 (00:32→17:28)
[2019-07-03] MEDS: Aspirin 81 MG TAB.CHEW 324 MG PO (00:36)
[2019-07-03] MEDS: Heparin Injection (Vial) 5,000 UNIT/ML VIAL 4000 UNIT IV (00:36)
[2019-07-03] MEDS: TICAGRELOR 90 MG TABLET 180 MG PO (00:36)
--- NOTE | 2019-07-03 00:36 | EKG12_ITS ---
Test Reason : CP Blood Pressure : / mmHG Vent. Rate : 114 BPM Atrial Rate : 115 BPM P-R Int : 160 ms QRS Dur : 180 ms QT Int : 386 ms P-R-T Axes : 077 -51 099 degrees QTc Int : 532 ms Sinus tachycardia Left axis deviation Left bundle branch block Abnormal ECG Confirmed by MALDONADO ARAGON ([id number]), editorial assistant LINDSAY SIDDIQUI ([id number]) on 07/05/2019 9:29:00 AM Referred By: Christie Tate Confirmed By:MALDONADO ARAGON
--- NOTE | 2019-07-03 00:38 | ED.DCSUM_ITS ---
History of Present Illness Chief Complaint: Chest Pain Narrative: Patient is a 53-year-old male who presents after cardiac arrest. He has a history of hypertension, stroke, blood clotting disorder. states he is on a blood thinner and they think that this is Eliquis. He was complaining of shoulder pain and had a witnessed arrest. EMS reports that he appeared to be in torsades. He received a total of 3 IV epinephrine as well as 3 defibrillations. He did receive IV magnesium. Had return of spontaneous circulation. He came in with an i-gel undergoing [id number]. Past Medical History - Allergies and Home Meds Allergies/Adverse Reactions: Allergies Penicillins Allergy (Verified 07/03/19 00:38) Swelling adhesive tape Adverse Reaction (Verified 07/03/19 00:38) Rash oxycodone [From OxyContin] Adverse Reaction (Verified 07/03/19 00:38) Other it makes me go nuts Primary Care Physician: Dharmesh Alonso MD [Primary Care Provider] - Past Medical History: - - Hypertension, coagulopathy, stroke Surgical History: cholecystectomy, - - Left carotid endarterectomy 04/22/2019 at [facility]. Left BKA for severe peripheral vascular disease with nonhealing wounds, cellulitis and osteomyelitis. Multiple stents in both lower extremities secondary to peripheral vascular disease. Multiple debridements of nonhealing wounds of the left lower extremity. Smoking Status: Former smoker - Family History Maternal Family History: Family History (Last Reviewed 04/24/19 @ 18:03 by Lynne Robledo DO) Other CVA (cerebral vascular accident) Cancer Heart disease Family History: Reports: Cancer, Diabetes, Heart Disease, Renal Disease Paternal Family History: Family History (Last Reviewed 04/24/19 @ 18:03 by Lynne Robledo DO) Other CVA (cerebral vascular accident) Cancer Heart disease Family History: Reports: Cancer Review of Systems ROS: Unable to Obtain Physical Exam Vital Signs/Narrative: Vital Signs Temp Pulse Resp BP 07/03/19 00:29 158/117 H 07/03/19 00:26 97.4 F L 124 H 22 H Inital Vital Signs reviewed: Yes General: Obese Head: Normocephalic ENT: Moist mucous membranes Neck: Supple Cardiovascular: - - Heart regular tachycardia Respiratory: - - Patient undergoing bag valve mask with equal chest rise Abdomen: Soft, Nondistended Extremities: No edema Skin: Cyanosis Neurological: - - Patient unresponsive Diagnostic/Tx/Re-eval - Medical Decision Making EKG shows sinus tachycardia with left bundle branch block at a rate of 114. P atient underwent RSI with etomidate and succinylcholine. Initial attempt with direct laryngoscopy unsuccessful. Patient was then intubated on second attempt with video laryngoscopy and a 7-1/2 endotracheal tube. Tube was visualized passing through the cords and there was equal chest rise with bagging and change in color capnography. EKG was obtained as above. Patient was started on a propofol infusion for sedation. He received aspirin, Brilinta, heparin. He was discussed with cardiology and taken for emergent cardiac catheterization. ED Disposition - Plan for ED Patient: Disposition: Acute Care Hospital [facility] Diagnosis: Cardiac arrest Referrals: Dharmesh Alonso MD [Primary Care Provider] -
[2019-07-03 00:51] LABS: Absolute Lymphocyte Count 10.78 X10^3/uL (0.83-4.51); Basophil# 0.22 X10^3/uL; Basophil% 0.8 % (0-1); Eosinophil# 0.72 X10^3/uL; Eosinophils% 2.7 % (0-5); Hematocrit 49.8 % (40-54); Hemoglobin 15.4 g/dL (13.0-16.5); Lymphocyte # 10.78 X10^3/ul (4.0); Lymphocyte % 39.7 % (19-41); Mean Corp Hgb Conc 30.9 g/dL (32-36); Mean Corpuscular Hgb 28.5 pg (27.0-32.0); Mean Corpuscular Volume 92.1 fL (80-94); Mean Platelet Vol. 9.9 fl (6.2-12.0); Monocyte% 4.8 % (0-10); NRBC Flagged by Analyzer 0.1 % (0-5); Neutrophil % 47.8 % (47-70); POSITIVE DIFFERENTIAL YES; POSITIVE MORPHOLOGY YES; Platelet Count 312 K/mm3 (150-450); RBC Distribution Width CV 15.9 % (11.6-14.6); RBC Distribution Width SD 53.7 fl (35.1-43.9); Red Blood Count 5.41 M/mm3 (4.6-6.2); White Blood Count 27.2 K/mm3 (4.4-11.0)
[2019-07-03 00:52] LABS: Differential Indicated SCAN CRITERIA MET
[2019-07-03 00:56] LABS: International Normalized Ratio 1.3; Prothrombin Time (Protime)PT. 16.4 SECONDS (11.7-14.9)
[2019-07-03 00:57] LABS: Partial Thromboplast Time 36.8 Seconds (24.1-36.2)
--- NOTE | 2019-07-03 01:04 | PCM.HP.STD ---
Problem List (1) Cardiac arrest Status: Acute (2) Chronic renal failure, stage 2 (mild) Status: Chronic (3) Depression Status: Chronic (4) History of carotid endarterectomy Status: Chronic Comment: 04/22/19 at [facility] (5) History of ischemic left MCA stroke Status: Chronic Comment: 04/17/19 (6) Debility Status: Chronic Comment: due to L MCA stroke 04/17/19 (7) Normochromic normocytic anemia Status: Chronic (8) LBBB (left bundle branch block) Status: Chronic (9) Dilated cardiomyopathy Status: Chronic Comment: 27% EF on ECHO 02/18/19........non-ischemic. 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 Comment: Patient is on Coumadin for PE (13) Peripheral arterial disease Status: Chronic Comment: BL LE's....multiple stents in both legs (14) Hypercoagulable state Status: Chronic Comment: Positive lupus 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, positive anticardiolipin anti B IgM, and increased homocystine level History of Present Illness Date of Admission: 07/03/19 Chief Complaint: Cardiac arrest The patient is a 53 year old M with a significant history of left bundle branch block; former smoker; left MCA stroke; Systolic heart failure( EF 27% on 02/18/19); left carotid endarterectomy; DVT; PE; left below the knee amputation who presented to the emergency department with cardiac arrest. History was taken from paramedics; emergency department doctor and patient's because patient was nonresponsive. Patient complains of left shoulder pain that started a day before presentation. However he notified his on the day of presentation. Shortly after notifying his patient was found unresponsive. Per paramedics patient had torsades and received ACLS with 3 rounds of epinephrine and 3 rounds of defibrillation. Also, he received magnesium. Patient obtained ROSC and was brought to the emergency department. When he arrived at the emergency department he had a supraglottic airway (I-GEL). Patient was subsequently intubated at the emergency department. Because of vent synchrony he was placed on SIMV mode. Patient was filled to the Emergency Room Doctor. The patient is a 53 year old M with a significant history of left bundle branch block; former smoker; left MCA stroke; Systolic heart failure( EF 27% on 02/18/19); left carotid endarterectomy; DVT; PE; left below the knee amputation who presented to the emergency department with cardiac arrest and obtained [place] after ACLS with epinephrine and defibrillation.. Cardiac arrest Patient received heparin bolus at the emergency department. Also he received aspirin and Brilinta through OG tube placed in the emergency department. Patient taken to bundle tier and labeler While at the Emergency Room Doctor his first troponin came back. The first troponin was elevated at 1.85. DVT/PE At home patient is on Eliquis. Received heparin because of acute coronary syndrome DVT prophylaxis Received heparin at the emergency department Miscellaneous: address other chronic conditions when patient returns from bundle tier and labeler and he is stable. Past Medical History Past Medical History (Chronic Problems): Chronic Problems (Last Reviewed 07/03/19 @ 01:17 by Nish Peace MD) Chronic renal failure, stage 2 (mild) (Chronic) Depression (Chronic) History of carotid endarterectomy (Chronic) 04/22/19 at [facility] History of ischemic left MCA stroke (Chronic) 04/17/19 Debility (Chronic) due to L MCA stroke 04/17/19 Normochromic normocytic anemia (Chronic) LBBB (left bundle branch block) (Chronic) Dilated cardiomyopathy (Chronic) 27% EF on ECHO 02/18/19........non-ischemic. normal coronaries on cath August 2016 at [facility] Essential hypertension (Chronic) 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) at [facility] for severe PVD with non-healing wounds and recurrent infections LLE USP current use of 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 (Chronic) Patient is on Coumadin for PE Peripheral arterial disease (Chronic) BL LE's....multiple stents in both legs Hypercoagulable state (Chronic) Positive lupus 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, positive anticardiolipin anti B IgM, and increased homocystine level Medical History: Medical History (Last Reviewed 07/03/19 @ 01:17 by Nish Peace MD) Dilated cardiomyopathy (Chronic) I42.0 27% EF on ECHO 02/18/19........non-ischemic. 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 (Chronic) Z79.01 Patient is on Coumadin for PE Peripheral arterial disease (Chronic) I73.9 BL LE's....multiple stents in both legs Hypercoagulable state (Chronic) D68.59 Positive lupus 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, positive anticardiolipin anti B IgM, and increased homocystine level Anemia D64.9 Arthritis M19.90 Gallstones K80.20 Vascular disease I99.9 JUAN (acute kidney injury) (Resolved) N17.9 Chronic osteomyelitis of left tibia (Resolved) M86.662 chronic osteomyelitis left tibia at BKA stump Dermatitis (Resolved) L30.9 Ischemic ulcer of right foot (Resolved) L97.519 Osteomyelitis of left lower extremity (Resolved) M86.9 Thrush, oral (Resolved) B37.0 Ulceration of below knee amputation stump (Resolved) T87.89, L97.809 Wound, surgical, nonhealing (Resolved) T81.89XA History of DVT (deep vein thrombosis) (Inactive) Z86.718 History of pulmonary embolism (Inactive) Z86.711 Methicillin resistant Staphylococcus aureus infection (Inactive) A49.02 Pain of amputation stump of left lower extremity (Inactive) T87.89, M79.605 Partial loss of skin graft (Inactive) T86.828 Personal history of osteomyelitis (Inactive) Z87.39 SVT (supraventricular tachycardia) (Inactive) I47.1 had an ablation in the past Allergies Penicillins Allergy (Verified 07/03/19 00:38) Swelling adhesive tape Adverse Reaction (Verified 07/03/19 00:38) Rash oxycodone [From OxyContin] Adverse Reaction (Verified 07/03/19 00:38) Other it makes me go nuts Home Medications: Ambulatory Orders Medication Instructions Recorded Apixaban [Eliquis] 5 mg PO BID 04/23/19 Acetaminophen [Tylenol Tablet] 650 mg PO Q4H PRN PRN tab 04/29/19 Aspirin 325 mg PO DAILY@0800 tab 04/29/19 Mirtazapine [Remeron] 15 mg PO QHS #30 tab 04/29/19 Nicotine [Nicotine Patch] 1 ea TD DAILY #28 patch.[id number] 04/29/19 gabapentin 800 mg tablet 800 mg PO BID #60 tab 05/23/19 lisinopril 10 mg tablet 10 mg PO DAILY #90 tab 06/04/19 carvedilol 12.5 mg tablet See Rx Instructions .ROUTE 06/25/19 .COMPLEX #90 tab Surgical History: Surgical History (Last Reviewed 07/03/19 @ 01:17 by Nish Peace MD) History of left heart catheterization (LHC) (Resolved) Onset Date: ~09/14/16 Z98.890 Normal Coronaries....august 2016 at [facility] History of cardiac radiofrequency ablation (Resolved) Onset Date: ~02/25/13 Z98.890 PVC Ablation 02/25/13 @ [facility] 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) Z89.512 at [facility] for severe PVD with non-healing wounds and recurrent infections LLE History of cholecystectomy Z90.49 1998 History of surgical removal of testicle Z98.890, Z90.79 Surgical History: cholecystectomy, - - Left carotid endarterectomy 04/22/2019 at [facility]. Left BKA for severe peripheral vascular disease with nonhealing wounds, cellulitis and osteomyelitis. Multiple stents in both lower extremities secondary to peripheral vascular disease. Multiple debridements of nonhealing wounds of the left lower extremity. Psychiatric History: No pertinent psych hx Smoking Status: Former smoker - *Family History Maternal Family History: Family History (Last Reviewed 07/03/19 @ 01:17 by Nish Peace MD) Other CVA (cerebral vascular accident) Cancer Heart disease History Items: Cancer, Diabetes, Heart Disease, Renal Disease Paternal Family History: Family History (Last Reviewed 07/03/19 @ 01:17 by Nish Peace MD) Other CVA (cerebral vascular accident) Cancer Heart disease History Items: Cancer Review of Systems Unable to obtain accurate/complete ROS d/t: Unresponsive. denies any other symptom except in HPI VTE Information - Inpt Only VTE Present on Admission: No VTE Mechan Device Prophylaxis: None VTE Pharm Prophylaxis ordered?: No Reason prophylaxis not ordered:: Treatment Not Indicated - Received heparin bolus at the emergency department for treatment for ACS Patient Problems: Active and Suspected Problems (Last Reviewed 07/03/19 @ 01:17 by Nish Peace MD) Cardiac arrest (Acute) - Physical Exam Vitals/I&O's: Vital Signs Temp Pulse Resp BP 97.4 F L 124 H 22 H 158/117 H 07/03/19 00:26 07/03/19 00:26 07/03/19 00:26 07/03/19 00:29 Weight: 99.8 kg Body Mass Index (BMI) 29.8 Finger Stick Blood Glucose 103 General: - - Comatose HEENT: Atraumatic, Normocephalic Neck: Trachea Midline, - - Healed scar on left neck Lungs: Rhonchi, - - Intubated and on Mechanical ventilation. Cardiovascular: Normal S1, Normal S2, No murmurs, Tachycardic Abdomen: Bowel Sounds Present, Soft, Non Tender, - - Comatose and cant elicit tenderness Extremities: Capillary Refill Less than 3 Seconds, - - Left below the Knee BKA Skin: - - Cyanosis at neck and upper torso Musculoskeletal: - - Left BKA Neurological: - - Comatose Psych/Mental Status: - - Comatose Laboratory Results 07/03/19 00:30: WBC 27.2 H, RBC 5.41, Hgb 15.4, Hct 49.8, MCV 92.1, MCH 28.5, MCHC 30.9 L, RDW Std Deviation 53.7 H, RDW Coeff of Lawson 15.9 H, Plt Count 312, MPV 9.9, Immature Gran % (Auto) 4.200 H, Neut % (Auto) 47.8, Lymph % (Auto) 39.7, Page % (Auto) 4.8, Eos % (Auto) 2.7, Baso % (Auto) 0.8, Absolute Neuts (auto) 13.0 H, Absolute Lymphs (auto) 10.78 H, Nucleated RBC % 0.1 07/03/19 00:30: PT 16.4 H, INR 1.3, APTT 36.8 H 07/03/19 00:30: Sodium Pending, Potassium Pending, Chloride Pending, Carbon Dioxide Pending, Anion Gap Pending, BUN Pending, Creatinine Pending, Est GFR (MDRD) Af Amer Pending, Est GFR (MDRD) Non-Af Pending, BUN/Creatinine Ratio Pending, Glucose Pending, Calcium Pending, Magnesium Pending, Troponin I Pending Current Medications Albuterol Sulfate (Ventolin Aerosols) 2.5 mg INHALATION Q2H PRN PRN PRN Reason: SOB/WHEEZING Chlorhexidine Gluconate () 15 ml PO BID ERIKA Famotidine (Pepcid) 20 mg GT BID ERIKA Propofol (Diprivan) 1,000 mg in 100 mls @ 5.988 mls/hr CONT INF .Q12H ERIKA; Protocol Last Admin: 07/03/19 00:32 Dose: 10 mcg/kg/min, 6 mls/hr Documented by: Fentanyl () 100 mls @ 2.5 mls/hr IV UD ERIKA; Protocol Assessment/Plan All Active Problems (Last Reviewed 07/03/19 @ 01:17 by Nish Peace MD) Cardiac arrest (Acute) History of left heart catheterization (LHC) (Resolved ~09/14/16) History of cardiac radiofrequency ablation (Resolved ~02/25/13) JUAN (acute kidney injury) (Resolved) Chronic osteomyelitis of left tibia (Resolved) Dermatitis (Resolved) Ischemic ulcer of right foot (Resolved) Osteomyelitis of left lower extremity (Resolved) Thrush, oral (Resolved) Ulceration of below knee amputation stump (Resolved) Wound, surgical, nonhealing (Resolved) The patient is a 53 year old M with a significant history of left bundle branch block; former smoker; left MCA stroke; left carotid endarterectomy; DVT; PE; left below the knee amputation who presented to the emergency department with cardiac arrest and obtained [place] after ACLS with epinephrine and defibrillation.. Cardiac arrest Patient received heparin bolus at the emergency department. Also he received aspirin and Brilinta through OG tube placed in the emergency department. Patient taken to bundle tier and labeler While do Emergency Room Doctor his first troponin came back. The first troponin was elevated at 1.85. DVT/PE At home patient is on Eliquis. Received heparin because of acute coronary syndrome DVT prophylaxis Received heparin at the emergency department Miscellaneous: Medical reconciliation and other chronic condition to be managed after patient returns from Emergency Room Doctor.
[2019-07-03 01:12] LABS: Anion Gap 17 (5-15); BUN 12 mg/dL (7-18); Calcium,Total 9.4 mg/dL (8.5-10.1); Chloride 99 mmol/L (98-107); Creatinine, Serum 2.01 mg/dL (0.70-1.30); EST Glomerular Filtration Rate 37 mL/min (>60); Est Glom Filt Rate - Afr Amer 45 mL/min (>60); Estimated Creatinine Clearance 46.65 ml/min; Glucose 243 mg/dL (74-106); Magnesium 3.1 mg/dL (1.6-2.6); Potassium 4.7 mmol/L (3.5-5.1); Sodium Level 133 mmol/L (136-145)
[2019-07-03 01:21] LABS: Differential Comment SCANNED; Reactive Lymphocyte 1+
[2019-07-03 01:22] LABS: Platelet Morphology CLUMPED
--- NOTE | 2019-07-03 02:30 | EKG12_ITS ---
Test Reason : AM Blood Pressure : / mmHG Vent. Rate : 103 BPM Atrial Rate : 103 BPM P-R Int : 134 ms QRS Dur : 156 ms QT Int : 408 ms P-R-T Axes : 066 028 116 degrees QTc Int : 534 ms Sinus tachycardia Left bundle branch block Abnormal ECG When compared with ECG of 03-JUL-2019 00:31, MANUAL COMPARISON REQUIRED, DATA IS UNCONFIRMED Confirmed by MALDONADO ARAGON ([id number]), editor in chief LINDSAY SIDDIQUI ([id number]) on 07/05/2019 10:00:28 AM Referred By: Christie Tate Confirmed By:MALDONADO ARAGON
[2019-07-03 03:08] LABS: Hematocrit 45.3 % (40-54); Hemoglobin 14.6 g/dL (13.0-16.5); Mean Corp Hgb Conc 32.2 g/dL (32-36); Mean Corpuscular Hgb 28.6 pg (27.0-32.0); Mean Corpuscular Volume 88.8 fL (80-94); Mean Platelet Vol. 9.5 fl (6.2-12.0); Platelet Count 297 K/mm3 (150-450); RBC Distribution Width CV 15.9 % (11.6-14.6); RBC Distribution Width SD 51.7 fl (35.1-43.9); White Blood Count 15.4 K/mm3 (4.4-11.0)
[2019-07-03] MEDS: Albuterol 2.5 MG/3 ML VIAL.NEB. INHALATION ×3 (03:15→11:35)
[2019-07-03 03:49] LABS: ALB/GLOB Ratio 0.7 RATIO (0.9-2.4); AST(SGOT) 83 U/L (15-37); Alanine Aminotransfer ALT/SGPT 46 U/L (16-61); Albumin, Serum 3.2 g/dL (3.2-5.0); Alkaline Phosphatase 81 U/L (45-117); Anion Gap 7 (5-15); BUN 14 mg/dL (7-18); BUN/Creat Ratio 8.2 RATIO (10-20); Calcium,Total 8.1 mg/dL (8.5-10.1); Chloride 103 mmol/L (98-107); Creatinine, Serum 1.71 mg/dL (0.70-1.30); EST Glomerular Filtration Rate 45 mL/min (>60); Est Glom Filt Rate - Afr Amer 54 mL/min (>60); Estimated Creatinine Clearance 54.83 ml/min; Globulin 4.3 g/dL (2.2-4.2); Glucose 141 mg/dL (74-106); Potassium 5.4 mmol/L (3.5-5.1); Protein, Total 7.5 g/dL (6.4-8.2); Sodium Level 132 mmol/L (136-145)
[2019-07-03] MEDS: fentaNYL drip 100 ML 2.5 MCG IV (04:16)
[2019-07-03 04:20] LABS: Base Excess -4 mmol/L (-2 to +2); Bicarbonate 22.9 mmol/L (22-26); Blood Gas Specimen Type ALINE; FI02 100; Mode A-C; O2 Delivery Device Vent; PEEP 5; PO2 397 mmHG (75-100); RR 20; SITE R Brachial; SO2 100 % (95-99); Total Carbon Dioxide 24 mmol/L; Vt 500; pCO2 48.8 mmHg (35-45); pH 7.28 (7.35-7.45)
[2019-07-03 04:24] LABS: Absolute Lymphocyte Count 1.73 X10^3/uL (0.83-4.51); Absolute Neutrophil Count 11.9 X10^3/uL (2.0-7.7); Basophil# 0.06 X10^3/uL; Basophil% 0.4 % (0-1); Eosinophil# 0.22 X10^3/uL; Eosinophils% 1.5 % (0-5); Lymphocyte # 1.73 X10^3/ul (4.0); Lymphocyte % 11.5 % (19-41); Monocyte# 0.99 X10^3/uL; Monocyte% 6.6 % (0-10); NRBC Flagged by Analyzer 0 % (0-5); Neutrophil % 78.7 % (47-70)
--- NOTE | 2019-07-03 05:22 | CPS ---
critical results read back to Dr. Peace. abg obtained via a-line
--- NOTE | 2019-07-03 06:18 | RAD_ITS ---
HISTORY: ET AND OG TUBE PLACEMENT STEMI EXAMINATION/TECHNIQUE: XR Chest 1 View: Portable COMPARISON: 03/07/2018 FINDINGS: LINES/DEVICES: The endotracheal tube tip is at the T3 level, 5.8 cm above the jevon. The enteric tube lies below the GE junction with the tube tip not visualized. There remains gaseous overdistention of the stomach. Normal heart size. Mild elevation of the left hemidiaphragm with left basilar atelectasis or possible infiltrate. The right lung appears clear. No vascular congestion or significant pleural effusion. No pneumothorax. RAD/Chest 1 View (Portable) IMPRESSION: 1. The endotracheal tube and enteric tube appear in satisfactory position. 2. Gaseous overdistention of the stomach. 3. Left basilar atelectasis or infiltrate. at 0758 Reported and signed by: Jason Cullen MD Electronically Signed: Jason Cullen, at 7:56 EST Tel , Service support ,
[2019-07-03] MEDS: Propofol 10MG/Ml 1,000 MG/100 ML Bottle 9 MG CONT INF (06:45)
--- NOTE | 2019-07-03 07:20 | ECHOCS_ITS ---
Reason For Study: CAD/ASHD Procedure This was a 2D Doppler, Color Flow transthoracic echocardiogram. The study was technically difficult. Contrast injection was performed. Patient on a vent. Exam performed portable in ICU/CCU. Left Ventricle Normal LV size. There appears to be LV apical thrombus. The estimated ejection fraction is 30-35 %. There is evidence of diastolic dysfunction. Severe hypokinesis of the anterior wall, septum and apex. Right Ventricle Normal RV size. Normal systolic function. Atria Normal left atrium. Normal right atrium. No doppler evidence for ASD. Mitral Valve There is no mitral valve stenosis. No mitral valve insufficiency. Tricuspid Valve There is no tricuspid stenosis. Trivial tricuspid valve insufficiency. Unable to estimate RV systolic pressure due to insufficient tricuspid regurgitant envelope. Aortic Valve Trisinus/trileaflet aortic valve. There is no aortic stenosis. No aortic valve insufficiency. Pulmonic Valve There is no pulmonic valvular stenosis. No pulmonic valve insufficiency. Great Vessels Normal aortic root. Pericardium/Pleural No pericardial effusion. Medication Diluted definity 3ml given slow IV push to enhance endocardial definition. MMode/2D Measurements & Calculations LVIDd: 4.3 cm IVSd: 1.3 cm LAV(MOD-bp): 38.5 ml LVIDs: 3.8 cm LVPWd: 1.1 cm RVDd: 2.9 cm FS: 10.4 % LAV(MOD-bp) Indexed: 18.2 ml/m2 LAV(MOD-sp2): 40.9 ml LAV(MOD-sp4): 27.0 ml LA A4 area: 13.3 cm2 RA A4 area: 9.7 cm2 Doppler Measurements & Calculations Lat Peak E' Ruben: 5.6 cm/sec Med Peak E' Ruben: 3.2 cm/sec Ao V2 max: 65.0 cm/sec Ao max P.7 mmHg LV V1 max: 64.8 cm/sec PA V2 max: 66.4 cm/sec LV V1 max P.7 mmHg Interpretation Summary The study was technically difficult. Diluted definity 3ml given slow IV push to enhance endocardial definition. There is evidence of diastolic dysfunction. Severe hypokinesis of the anterior wall, septum and apex. The estimated ejection fraction is 30-35 %. Trivial tricuspid valve insufficiency. There appears to be LV apical thrombus The study was technically difficult. Ordering Physician: Prince Oconnell Referring Physician: Christie Tate Performed By: Dean Handy RCS
--- NOTE | 2019-07-03 07:26 | CON.PCM_ITS ---
Problem List (1) Cardiac arrest Status: Acute (2) Chronic renal failure, stage 2 (mild) Status: Chronic (3) Depression Status: Chronic (4) History of carotid endarterectomy Status: Chronic Comment: 04/22/19 at [facility] (5) History of ischemic left MCA stroke Status: Chronic Comment: 04/17/19 (6) Debility Status: Chronic Comment: due to L MCA stroke 04/17/19 (7) Normochromic normocytic anemia Status: Chronic (8) LBBB (left bundle branch block) Status: Chronic (9) Dilated cardiomyopathy Status: Chronic Comment: 27% EF on ECHO 02/18/19........non-ischemic. normal coronaries on cath August 2016 at [facility] (10) Essential hypertension Status: Chronic (11) History of cardiac radiofrequency ablation Status: Resolved Comment: PVC Ablation 02/25/13 @ [facility] (12) Tobacco use disorder Status: Inactive (13) Status post below knee amputation of left lower extremity Status: Chronic Comment: at [facility] for severe PVD with non- healing wounds and recurrent infections LLE (14) intermediate current use of 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 Status: Chronic Comment: Patient is on Coumadin for PE (15) Peripheral arterial disease Status: Chronic Comment: BL LE's....multiple stents in both legs (16) Hypercoagulable state Status: Chronic Comment: Positive lupus 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, positive anticardiolipin anti B IgM, and increased homocystine level Reason for Consult Date of Consultation: 07/03/19 Reason for Consultation: Cardiac arrest History of Present Illness: The patient is a 53 year old M, with complex past medical history listed below, who presented was [facility] on 07/03/2019 secondary to a witnessed arrest. Patient had been complaining of shoulder pain and then became unresponsive. Patient reportedly received CPR immediately from his son, but with not noted to have a perfusing rhythm on EMS arrival. In total, patient received 3 rounds of CPR with medications and defibrillations. Patient did receive IV magnesium secondary to reported torsades. Patient did have an I-gel in place on presentation. On arrival to the ER, patient was noted to be tachycardic with a left bundle branch block at 114 bpm. Patient underwent rapid sequence intubation with a 7- 1/2 endotracheal tube. Patient was started on propofol for sedation, aspirin, Brilinta and heparin. Patient was then taken for an emergent cardiac catheterization. Patient reportedly had a stent placed in the LAD, but there was some delay secondary to difficulty with access. Patient was then transferred to the intensive care unit for further evaluation. Patient has had multiple watery stools since being in the intensive care unit. On my arrival this morning, patient was saturating well on the ventilator and did have some spontaneous purposeful movement. Patient was hypotensive requir ing a fluid bolus. Patient did have to be initiated on pressor therapy secondary to failure to respond to fluid bolus. Patient is unable to provide any review of systems at this time. Patient edvin cantu does have a significant history of thrombosis in the past with a recent stroke in March and peripheral artery disease leading to a left BKA. Patient reportedly is a smoker. Past Medical History Past Medical History (Chronic Problems): Chronic Problems (Last Reviewed 07/03/19 @ 01:17 by Nish Peace MD) Chronic renal failure, stage 2 (mild) (Chronic) Depression (Chronic) History of carotid endarterectomy (Chronic) 04/22/19 at [facility] History of ischemic left MCA stroke (Chronic) 04/17/19 Debility (Chronic) due to L MCA stroke 04/17/19 Normochromic normocytic anemia (Chronic) LBBB (left bundle branch block) (Chronic) Dilated cardiomyopathy (Chronic) 27% EF on ECHO 02/18/19........non-ischemic. normal coronaries on cath August 2016 at [facility] Essential hypertension (Chronic) 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) at 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 normal coronaries on cath August 2016 at [facility] Essential hypertension (Chronic) I10 Tobacco use disorder (Inactive) F17.200 intermediate current use of 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 (Chronic) Z79.01 Patient is on Coumadin for PE Peripheral arterial disease (Chronic) I73.9 BL LE's....multiple stents in both legs Hypercoagulable state (Chronic) D68.59 Positive lupus 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, positive anticardiolipin anti B IgM, and increased homocystine level Anemia D64.9 Arthritis M19.90 Gallstones K80.20 Vascular disease I99.9 JUAN (acute kidney injury) (Resolved) N17.9 Chronic osteomyelitis of left tibia (Resolved) M86.662 chronic osteomyelitis left tibia at BKA stump Dermatitis (Resolved) L30.9 Ischemic ulcer of right foot (Resolved) L97.519 Osteomyelitis of left lower extremity (Resolved) M86.9 Thrush, oral (Resolved) B37.0 Ulceration of below knee amputation stump (Resolved) T87.89, L97.809 Wound, surgical, nonhealing (Resolved) T81.89XA History of DVT (deep vein thrombosis) (Inactive) Z86.718 History of pulmonary embolism (Inactive) Z86.711 Methicillin resistant Staphylococcus aureus infection (Inactive) A49.02 Pain of amputation stump of left lower extremity (Inactive) T87.89, M79.605 Partial loss of skin graft (Inactive) T86.828 Personal history of osteomyelitis (Inactive) Z87.39 SVT (supraventricular tachycardia) (Inactive) I47.1 had an ablation in the past Allergies Penicillins Allergy (Verified 07/03/19 00:38) Swelling adhesive tape Adverse Reaction (Verified 07/03/19 00:38) Rash oxycodone [From OxyContin] Adverse Reaction (Verified 07/03/19 00:38) Other it makes me go nuts Home Medications: Ambulatory Orders Medication Instructions Recorded Apixaban [Eliquis] 5 mg PO BID 04/23/19 Acetaminophen [Tylenol Tablet] 650 mg PO Q4H PRN PRN tab 04/29/19 gabapentin 800 mg tablet 800 mg PO BID #60 tab 05/23/19 lisinopril 10 mg tablet 10 mg PO DAILY #90 tab 06/04/19 Aspirin 325 mg PO DAILY@0800 07/03/19 Carvedilol See Rx Instructions .ROUTE .COMPLEX 07/03/19 Surgical History: Surgical History (Last Reviewed 07/03/19 @ 01:17 by Nish Peace MD) History of left heart catheterization (LHC) (Resolved) Onset Date: ~09/14/16 Z98.890 Normal Coronaries....august 2016 at [facility] History of cardiac radiofrequency ablation (Resolved) Onset Date: ~02/25/13 Z98.890 PVC Ablation 02/25/13 @ [facility] 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) Z89.512 at [facility] for severe PVD with non-healing wounds and recurrent infections LLE History of cholecystectomy Z90.49 1998 History of surgical removal of testicle Z98.890, Z90.79 Surgical History: cholecystectomy, - - Left carotid endarterectomy 04/22/2019 at [facility]. Left BKA for severe peripheral vascular disease with nonhealing wounds, cellulitis and osteomyelitis. Multiple stents in both lower extremities secondary to peripheral vascular disease. Multiple debridements of nonhealing wounds of the left lower extremity. Psychiatric History: No pertinent psych hx Smoking Status: Former smoker - *Family History Maternal Family History: Family History (Last Reviewed 07/03/19 @ 01:17 by Nish Peace MD) Other CVA (cerebral vascular accident) Cancer Heart disease History Items: Cancer, Diabetes, Heart Disease, Renal Disease Paternal Family History: Family History (Last Reviewed 07/03/19 @ 01:17 by Nish Peace MD) Other CVA (cerebral vascular accident) Cancer Heart disease History Items: Cancer Review of Systems Unable to obtain accurate/complete ROS d/t: Intubated and sedated. Patient Problems: Active and Suspected Problems (Last Reviewed 07/03/19 @ 01:17 by Nish Peace MD) Cardiac arrest (Acute) Objective: Chest x-ray was personally reviewed and shows no significant infiltrate. Supportive devices are in appropriate position. Patient did have significant gastric distention. Patient reportedly did have a stress test in January 2019 showing A. fib with a left bundle branch block and an EF of 27%, but no reported ischemic changes. No PFTs are available for review. - Physical Exam Vitals/I&O's: Vital Signs Temp Pulse Resp BP Pulse Ox 36.4 C L 106 H 17 76/41 L 100 07/03/19 06:30 07/03/19 06:40 07/03/19 06:40 07/03/19 07:18 07/03/19 06:40 Oxygen Delivery Method Mechanical Ventilator Weight: 85.3 kg Body Mass Index (BMI) 24.1 Finger Stick Blood Glucose 103 Intake and Output for Last 24 Hours 07/01/19 07/02/19 07/03/19 23:59 23:59 23:59 Intake Total 86.23 / 86.23 Balance 86.23 / 86.23 General: - - Intubated and sedated. RASS -2. Appears older than stated age. HEENT: Atraumatic, PERRLA, EOMI, Normocephalic, - - No scleral icterus or injection noted Oral: Moist Mucosa, No Gingival or Mucosal Lesions/ Ulcerations Neck: Supple, No JVD, No Nodes, Trachea Midline Lungs: Clear to auscultation, Normal air movement, No rhonchi, No wheeze, No rales Cardiovascular: Normal S1, Normal S2, No murmurs, No rub noted, No Gallop, Tachycardic Abdomen: Bowel Sounds Present, Soft, Non Tender, Non-Distended Extremities: No clubbing, No cyanosis, No edema, - - Left BKA Skin: No rashes, No breakdown Musculoskeletal: No Tenderness to Palpation of Joints or Extremities Lymphatic: No Cervical, Supraclavicular, or Inguinal Adenopathy Neurological: - - Spontaneous movement of all extremities noted. Purposeful movement earlier today. No facial droop noted. Positive cough and gag reflex is noted. Psych/Mental Status: Flat Affect Laboratory Results 07/03/19 00:30: WBC 27.2 H, RBC 5.41, Hgb 15.4, Hct 49.8, MCV 92.1, MCH 28.5, MCHC 30.9 L, RDW Std Deviation 53.7 H, RDW Coeff of Lawson 15.9 H, Plt Count 312, MPV 9.9, Immature Gran % (Auto) 4.200 H, Neut % (Auto) 47.8, Lymph % (Auto) 39.7, [place] % (Auto) 4.8, Eos % (Auto) 2.7, Baso % (Auto) 0.8, Absolute Neuts (auto) 13.0 H, Absolute Lymphs (auto) 10.78 H, Nucleated RBC % 0.1, Differential Comment SCANNED, Reactive Lymphocytes 1+, Plt Morphology Comment CLUMPED 07/03/19 00:30: PT 16.4 H, INR 1.3, APTT 36.8 H 07/03/19 00:30: Sodium 133 L, Potassium 4.7, Chloride 99, Carbon Dioxide 17.0 L, Anion Gap 17 H, BUN 12, Creatinine 2.01 H, Estim Creat Clear Calc 46.65, Est GFR (MDRD) Af Amer 45 L, Est GFR (MDRD) Non-Af 37 L, BUN/Creatinine Ratio 6.0 L, Glucose 243 H, Calcium 9.4, Magnesium 3.1 H, Troponin I 1.850 H* 07/03/19 03:00: WBC 15.4 H, RBC 5.10, Hgb 14.6, Hct 45.3, MCV 88.8, MCH 28.6, MCHC 32.2, RDW Std Deviation 51.7 H, RDW Coeff of Lawson 15.9 H, Plt Count 297, MPV 9.5, Immature Gran % (Auto) 1.300 H, Neut % (Auto) 78.7 H, Lymph % (Auto) 11.5 L , [place] % (Auto) 6.6, Eos % (Auto) 1.5, Baso % (Auto) 0.4, Absolute Neuts (auto) 11.9 H, Absolute Lymphs (auto) 1.73, Nucleated RBC % 0 07/03/19 03:00: Sodium 132 L, Potassium 5.4 H, Chloride 103, Carbon Dioxide 22.0, Anion Gap 7, BUN 14, Creatinine 1.71 H, Estim Creat Clear Calc 54.83, Est GFR (MDRD) Af Amer 54 L, Est GFR (MDRD) Non-Af 45 L, BUN/Creatinine Ratio 8.2 L, Glucose 141 H, Calcium 8.1 L, Total Bilirubin 0.40, AST 83 H, ALT 46, Alkaline Phosphatase 81, Total Protein 7.5, Albumin 3.2, Globulin 4.3 H, Albumin/Globulin Ratio 0.7 L 07/03/19 03:00: Troponin I 1.610 H* 07/03/19 04:11: Specimen Type SY, Sample Site R Brachial, pH 7.28 L, Bicarbonate Actual 22.9, POC Total CO2 24, Base Excess -4 L, O2 Saturation 100 H , O2 % 100, ABG pCO2 48.8 H, ABG pO2 397 H*, Georges Test NA, Respiration Rate 20, O2 Delivery Device Vent, Minute Volume 10.00, Vent Mode A-C, Tidal Volume 500, POC PEEP 5, Blood Gas Notified Whom HOSP 07/03/19 06:20: Troponin I 6.120 H* Current Medications Acetaminophen (Tylenol) 650 mg RECTAL Q4H PRN PRN PRN Reason: Pain Score 1-10/Temp > 100.7 F Albuterol Sulfate (Ventolin Aerosols) 2.5 mg INHALATION Q2H PRN PRN PRN Reason: SOB/WHEEZING Last Admin: 07/03/19 03:15 Dose: 2.5 mg Documented by: Aspirin (Aspirin, Baby) 81 mg PO DAILY@0800 [facility] Atropine Sulfate () 0.5 mg IV UD PRN PRN Reason: HR <50 bpm Chlorhexidine Gluconate () 15 ml PO BID ERIKA Famotidine (Pepcid) 20 mg GT BID ERIKA Glucagon () 1 mg IM .X1 PRN PRN Reason: Hypoglycemia Heparin Sodium (Beef Lung) (Heparin 500 Unit/5 Ml (100/Ml)) 500 unit IV UD PRN PRN Reason: HEPARIN FLUSH Propofol (Diprivan) 1,000 mg in 100 mls @ 5.988 mls/hr CONT INF .Q12H [facility]; Protocol Last Admin: 07/03/19 06:45 Dose: 20 mcg/kg/min, 12 mls/hr Documented by: Fentanyl () 100 mls @ 2.5 mls/hr IV UD [facility]; Protocol Last Admin: 07/03/19 04:16 Dose: 25 mcg/hr, 2.5 mls/hr Documented by: Sodium Chloride () 250 mls @ 15 mls/hr IV .[id number] PRN PRN Reason: Saline Flush Sodium Chloride () 250 mls @ 15 mls/hr IV .[id number] PRN PRN Reason: Additional IVPB Infusion Sodium Chloride () 1,000 mls @ 1 mls/hr IV .Q48H PRN PRN Reason: Saline Flush Dextrose (Dextrose 10%-Water) 250 mls @ 999 mls/hr IV .Q16M PRN; Protocol PRN Reason: HYPOGLYCEMIA Norepinephrine Bitartrate 8 mg (/ Sodium Chloride) 250 mls @ 9.375 mls/hr CONT INF .[id number] [facility]; Protocol Last Admin: 07/03/19 07:18 Dose: 5 mcg/min, 9.4 mls/hr Documented by: Sodium Chloride () 500 mls @ 999 mls/hr IV .Q31M ONE Stop: 07/03/19 07:50 Labetalol HCl (Trandate) 5 mg IV X1 PRN PRN Reason: SBP > 160 WHEN PULLING SHEATH Sodium Chloride () 500 ml IV BOLUS PRN PRN Reason: VASO-VAGAL PROTOCOL Sodium Chloride () 10 - 40 ml IV UD PRN PRN Reason: SALINE FLUSH Ticagrelor (Brilinta) 90 mg PO BID [facility] Assessment/Plan Active and Suspected Problems (Last Reviewed 07/03/19 @ 01:17 by Nish Peace MD) Cardiac arrest (Acute) RECOMMENDATIONS: 1. Initiate pressor therapy 2. Fluid boluses as tolerates 3. Obtain consent for central line placement 4. Wean oxygen as tolerated 5. Aerosols only as needed IMPRESSIONS: 1. Cardiac arrest secondary to probable ST elevation DE Patient with urgent cardiac catheterization and found to have an LAD lesion. Patient reportedly had extensive downtime, but did have rapid CPR. Patient had some purposeful movement this morning, but is hypotensive. Family is confirming the patient is a full code. Cardiology is involved. Anticipate significant increase in troponins now that perfusion has been reinitiated. 2. Cardiogenic shock secondary to #1 Patient's last known ejection fraction was 27% in January. Clinical suspicion for decrease in function. Patient will be initiated on Levophed therapy. Acidosis appear to be relatively controlled on ABG. Unclear if patient could have an intra-aortic balloon pump given vascular access issues. Would defer to cardiology. 3. Acute hypercarbic respiratory failure Clinical suspicion for decreased respiratory effort secondary to #1. Patient does not have any acute infiltrates on chest x-ray. No wheezing is noted on exam, so okay to use aerosols only as needed from my perspective. Patient does have a smoking history, but no history of COPD. Would not recomm end steroids at this time. Continue to monitor clinically. Patient will be at risk for developing pulmonary edema given heart function. 4. Chronic systolic congestive heart failure Patient currently is hypotensive, so beta-marietta, ALIZE inhibitor and aspirin will be held. Patient is on systemic anticoagulation with Eliquis, but will need to be held for now given need for possible interventions. Patient does not appear to have any pulmonary or lower extremity edema at this time. Patient is receiving significant fluid resuscitation. 5. Peripheral vascular disease/clotting disorder/tobacco abuse/chronic pain syndrome Complicates care, management, recovery and prognosis. Patient was confirmed a full code with family. Okay to receive blood products. Patient currently with a brachial sheath. Addendum 1515: Patient has remained on Levophed throughout the day at almost max dosing. Patient has received multiple fluid boluses with response of blood pressure. No vasopressin has been necessary. Patient has kept his sheath for accurate blood pressure requirements. No respiratory issues have been noted. TIME: 85 minutes of critical care time spent addressing cardiac arrest, cardiogenic shock, respiratory failure, CODE STATUS, review of all data and collaboration with care team (6 AM to 8 AM, 12 PM to 3 PM) Code Visit [id number]: [id number] Critical care first hour [facility] Codes - Hospitalists' Procedures Procedures: 91487 Critial Care Addl 30 Min
[2019-07-03] MEDS: LORazepam 2 MG/ML Syringe IV (08:20)
--- NOTE | 2019-07-03 08:44 | RAD_ITS ---
STUDY: X-RAY CHEST REASON FOR EXAM: Male, 53 years old. LINE PLACEMENT TECHNIQUE: Single AP portable view of the chest. COMPARISON: 07/03/2005 20 FINDINGS: Interval placement of left internal jugular deep venous line with tip of the catheter overlying the junction of right atrium and screw vena cava with no pneumothorax. Endotracheal tube and nasogastric tube both which are unchanged. The lungs are clear and expanded. There is no demonstrated pleural abnormality. Normal size heart. Normal mediastinum and edgar. Normal visualized pulmonary arteries. Normal visualized aortic arch and descending thoracic aorta. Normal visualized thoracic spine. Normal visualized ribs, clavicles, and shoulders. There is no demonstrated abnormality of the visualized soft tissue structures of the upper abdomen. RAD/Chest 1 View (Portable) IMPRESSION: Interval placement of left internal jugular deep venous line with tip of the catheter overlying the junction of the right atrium and screw vena cava with no pneumothorax. Electronically Signed: Palmer Javier MD at 9:25 EST Tel , Service support ,
[2019-07-03 09:36] LABS: Base Excess -7 mmol/L (-2 to +2); Bicarbonate 19.3 mmol/L (22-26); Blood Gas Specimen Type ALINE; FI02 30; Mode A-C; O2 Delivery Device Vent; PEEP 5; PO2 77 mmHG (75-100); RR 14; SO2 94 % (95-99); Time Given 947; Total Carbon Dioxide 20 mmol/L; Vt 500; pCO2 38.6 mmHg (35-45); pH 7.31 (7.35-7.45)
--- NOTE | 2019-07-03 10:02 | CASEMGMT ---
SW spoke w/pt's , two of pt's sons in the room, support offered. states pt is still having memory difficulties since the stroke, and still has vision issues. SW spoke w/ also about insurance, states pt is covered under her [place], has the insurance information in the waiting room on her phone and will get the information to this SW later today. SW will continue to follow and remains available for any support to family. EDWARD Davila
[2019-07-03] MEDS: Aspirin 81 MG TAB.CHEW PO (10:14)
[2019-07-03] MEDS: TICAGRELOR 90 MG TABLET PO ×2 (10:14→21:33)
[2019-07-03] MEDS: Chlorhexidine 15 ML PO ×2 (10:14→21:33)
[2019-07-03] MEDS: Famotidine 20 MG Tablet GT ×2 (10:14→21:32)
[2019-07-03] MEDS: Lactated Ringers 1,000 ML 999 ML IV ×2 (10:30→15:25)
--- NOTE | 2019-07-03 10:39 | PN_ITS ---
Patient Problems: Active and Suspected Problems (Last Reviewed 07/03/19 @ 01:17 by Nish Peace MD) Cardiac arrest (Acute) Reason for Visit: CPA Subjective: Events reviewed. Patient was intubated. Patient underwent a left heart catheterization which he had a stent placed to the left anterior descending artery this morning. Central line placed in the left internal jugular. Patient was hypotensive did receive IV fluids but remained hypotensive and being started on vasopressors. Vitals/I&O's: Vital Signs Temp Pulse Resp BP Pulse Ox 36.4 C L 112 H 14 76/41 L 100 07/03/19 06:30 07/03/19 09:43 07/03/19 09:43 07/03/19 07:18 07/03/19 09:30 Oxygen Delivery Method Mechanical Ventilator Weight: 85.3 kg Body Mass Index (BMI) 24.1 Finger Stick Blood Glucose 103 Intake and Output for Last 24 Hours 07/01/19 07/02/19 07/03/19 23:59 23:59 23:59 Intake Total 585.57 / 585.57 Output Total 1650 / 1650 Balance -1064.43 / -1064.43 General: - - intubated and sedated HEENT: Atraumatic, Normocephalic Oral: Moist Mucosa, No Gingival or Mucosal Lesions/ Ulcerations, - - ETT and OG in place Neck: No Nodes, Trachea Midline Lungs: - - coarse breath sounds bilaterally. Cardiovascular: Regular rate, Regular Rhythm, Normal S1, Normal S2, No murmurs Abdomen: Bowel Sounds Present, Soft, Non Tender, Non-Distended Extremities: No edema, No Calf Tenderness, - - BKA on left Skin: - - left stump clean Musculoskeletal: No Tenderness to Palpation of Joints or Extremities, No Muscle Wasting Neurological: Muscle tone normal, - - no clonsu Laboratory Results 07/03/19 00:30: WBC 27.2 H, RBC 5.41, Hgb 15.4, Hct 49.8, MCV 92.1, MCH 28.5, MCHC 30.9 L, RDW Std Deviation 53.7 H, RDW Coeff of Lawson 15.9 H, Plt Count 312, MPV 9.9, Immature Gran % (Auto) 4.200 H, Neut % (Auto) 47.8, Lymph % (Auto) 39.7, Cherry % (Auto) 4.8, Eos % (Auto) 2.7, Baso % (Auto) 0.8, Absolute Neuts (auto) 13.0 H, Absolute Lymphs (auto) 10.78 H, Nucleated RBC % 0.1, Differential Comment SCANNED, Reactive Lymphocytes 1+, Plt Morphology Comment CLUMPED 07/03/19 00:30: PT 16.4 H, INR 1.3, APTT 36.8 H 07/03/19 00:30: Sodium 133 L, Potassium 4.7, Chloride 99, Carbon Dioxide 17.0 L, Anion Gap 17 H, BUN 12, Creatinine 2.01 H, Estim Creat Clear Calc 46.65, Est GFR (MDRD) Af Amer 45 L, Est GFR (MDRD) Non-Af 37 L, BUN/Creatinine Ratio 6.0 L, Glucose 243 H, Calcium 9.4, Magnesium 3.1 H, Troponin I 1.850 H* 07/03/19 03:00: WBC 15.4 H, RBC 5.10, Hgb 14.6, Hct 45.3, MCV 88.8, MCH 28.6, MCHC 32.2, RDW Std Deviation 51.7 H, RDW Coeff of Lawson 15.9 H, Plt Count 297, MPV 9.5, Immature Gran % (Auto) 1.300 H, Neut % (Auto) 78.7 H, Lymph % (Auto) 11.5 L , Cherry % (Auto) 6.6, Eos % (Auto) 1.5, Baso % (Auto) 0.4, Absolute Neuts (auto) 11.9 H, Absolute Lymphs (auto) 1.73, Nucleated RBC % 0 07/03/19 03:00: Sodium 132 L, Potassium 5.4 H, Chloride 103, Carbon Dioxide 22.0, Anion Gap 7, BUN 14, Creatinine 1.71 H, Estim Creat Clear Calc 54.83, Est GFR (MDRD) Af Amer 54 L, Est GFR (MDRD) Non-Af 45 L, BUN/Creatinine Ratio 8.2 L, Glucose 141 H, Calcium 8.1 L, Total Bilirubin 0.40, AST 83 H, ALT 46, Alkaline Phosphatase 81, Total Protein 7.5, Albumin 3.2, Globulin 4.3 H, Albumin/Globulin Ratio 0.7 L 07/03/19 03:00: Troponin I 1.610 H* 07/03/19 04:11: Specimen Type SY, Sample Site R Brachial, pH 7.28 L, Bicarbonate Actual 22.9, POC Total CO2 24, Base Excess -4 L, O2 Saturation 100 H , O2 % 100, ABG pCO2 48.8 H, ABG pO2 397 H*, Georges Test NA, Respiration Rate 20, O2 Delivery Device Vent, Minute Volume 10.00, Vent Mode A-C, Tidal Volume 500, POC PEEP 5, Blood Gas Notified Whom HOSP 07/03/19 06:20: Troponin I 6.120 H* 07/03/19 09:30: Specimen Type SY, pH 7.31 L, Bicarbonate Actual 19.3 L, POC Total CO2 20, Base Excess -7 L, O2 Saturation 94 L, O2 % 30, ABG pCO2 38.6, ABG pO2 77, Respiration Rate 14, O2 Delivery Device Vent, Vent Mode A-C, Tidal Volume 500, POC PEEP 5, Blood Gas Notified Whom ICU , Blood Gas Notified Time 947 Current Medications Acetaminophen (Tylenol) 650 mg RECTAL Q4H PRN PRN PRN Reason: Pain Score 1-10/Temp > 100.7 F Albuterol Sulfate (Ventolin Aerosols) 2.5 mg INHALATION Q2H PRN PRN PRN Reason: SOB/WHEEZING Last Admin: 07/03/19 09:43 Dose: 2.5 mg Documented by: Aspirin (Aspirin, Baby) 81 mg PO DAILY@0800 [facility] Last Admin: 07/03/19 10:14 Dose: 81 mg Documented by: Atropine Sulfate () 0.5 mg IV UD PRN PRN Reason: HR <50 bpm Chlorhexidine Gluconate () 15 ml PO BID [facility] Last Admin: 07/03/19 10:14 Dose: 15 ml Documented by: Famotidine (Pepcid) 20 mg GT BID [facility] Last Admin: 07/03/19 10:14 Dose: 20 mg Documented by: Glucagon () 1 mg IM .X1 PRN PRN Reason: Hypoglycemia Heparin Sodium (Beef Lung) (Heparin 500 Unit/5 Ml (100/Ml)) 500 unit IV UD PRN PRN Reason: HEPARIN FLUSH Propofol (Diprivan) 1,000 mg in 100 mls @ 5.988 mls/hr CONT INF .Q12H [facility]; Protocol Last Admin: 07/03/19 06:45 Dose: 15 mcg/kg/min, 9 mls/hr Documented by: Fentanyl () 100 mls @ 2.5 mls/hr IV UD [facility]; Protocol Last Titration: 07/03/19 07:00 Dose: 25 mcg/hr, 2.5 mls/hr Documented by: Sodium Chloride () 250 mls @ 15 mls/hr IV .[id number] PRN PRN Reason: Saline Flush Sodium Chloride () 250 mls @ 15 mls/hr IV .[id number] PRN PRN Reason: Additional IVPB Infusion Sodium Chloride () 1,000 mls @ 1 mls/hr IV .Q48H PRN PRN Reason: Saline Flush Dextrose (Dextrose 10%-Water) 250 mls @ 999 mls/hr IV .Q16M PRN; Protocol PRN Reason: HYPOGLYCEMIA Norepinephrine Bitartrate 8 mg (/ Sodium Chloride) 250 mls @ 9.375 mls/hr CONT INF .[id number] [facility]; Protocol Last Admin: 07/03/19 07:18 Dose: 5 mcg/min, 9.4 mls/hr Documented by: Lactated Ringer's () 1,000 mls @ 999 mls/hr IV .Q1H1M [facility] Stop: 07/03/19 11:30 Labetalol HCl (Trandate) 5 mg IV X1 PRN PRN Reason: SBP > 160 WHEN PULLING SHEATH Sodium Chloride () 500 ml IV BOLUS PRN PRN Reason: VASO-VAGAL PROTOCOL Sodium Chloride () 10 - 40 ml IV UD PRN PRN Reason: SALINE FLUSH Ticagrelor (Brilinta) 90 mg PO BID [facility] Last Admin: 07/03/19 10:14 Dose: 90 mg Documented by: STROKE Vital Signs/Narrative: Vital Signs Pulse Resp BP Pulse Ox 07/03/19 09:43 112 H 14 07/03/19 09:30 112 H 14 100 07/03/19 07:18 76/41 L 07/03/19 06:40 106 H 17 100 Medical Necessity - Tobacco Use Smoking Status: Former smoker Assessment/Plan All Active Problems (Last Reviewed 07/03/19 @ 01:17 by Nish Peace MD) Cardiac arrest (Acute) History of left heart catheterization (LHC) (Resolved ~09/14/16) History of cardiac radiofrequency ablation (Resolved ~02/25/13) JUAN (acute kidney injury) (Resolved) Chronic osteomyelitis of left tibia (Resolved) Dermatitis (Resolved) Ischemic ulcer of right foot (Resolved) Osteomyelitis of left lower extremity (Resolved) Thrush, oral (Resolved) Ulceration of below knee amputation stump (Resolved) Wound, surgical, nonhealing (Resolved) Assessment 1. cardiopulmonary arrest 2. NSTEMI 3. Acute respiratory failure: hypercapnic 4. Cardiogenic shock 5. JUAN 6. Chronic issues: depression, PAD, LBBB, cardiomyopathy, HTN,lupus 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 Plan: 1. vent mgmt and pressor mgmt per CCM 2. follow up echo 3. DAPT, start HIS 4. resume apixaban Code Visit Procedures: Other Procedure - See Report - non-billable rounding
--- NOTE | 2019-07-03 10:41 | PCM.OPRPT ---
Report of Operation Date of Procedure: 07/03/19 Surgery/Procedure Performed:: Triple-lumen catheter insertion Description of Surgical Findings:: Central line placement procedure note Indication: IV access/hemodynamic instability/vasoactive medications Procedure: A time-out was completed to verify correct patient, indication, medication allergies, procedure, coagulation studies, informed consent signed, and equipment needed. The patient was placed in the supine position for a central line placement to the left IJ vein. The patients left neck was prepped using chlorhexidine and a full body sterile drape was applied. 1% lidocaine was used to anesthetize the surrounding skin. A 7fr 20 cm blue guard triple lumen catheter introduced into the internal jugular vein using the modified seldinger technique with the assistance of ultrasound. The catheter was threaded smoothly over the guidewire, the guidewire was removed easily, nonpulsatile blood returned. All ports were aspirated of air and flushed with sterile saline. The catheter was sutured in place and covered with an occlusive dressing impregnated with chlorhexidine. Post-procedure: The patient tolerated the procedure well. Vital signs remained stable. EBL 3 cc. No complications. Chest X Ray ordered to confirm tip placement and the absence of pneumothorax. Code Visit Procedures: 19148 Insert Non-tunnel CV Cath
--- NOTE | 2019-07-03 12:53 | CHAPLAIN ---
Type of Pastoral Visit _x__ Initial Visit ___ Follow-up Visit ___ On-call Visit ___ General Patient Visit ___ Spiritual Assessment ___ Family Conference ___ Bereavement ___ Rapid Response ___ Code Blue ___ Other (describe below) Pastoral Care Referral From ___ Patient _x__ Family _x__ Nurse ___ Physician ___ Termite Control Technician ___ Managed Care Liaison _x__ Other (describe below) Sacrament/Intervention _x__ Active listening ___ Anointing ___ Church ___ Bereavement ___ Communion ___ Misty exploration ___ ___ Life review ___ Prayer ___ Reconciliation ___ Sacrament of Sick _x__ Supportive presence ___ Wedding ___ Other (describe below) Pastoral Comments patient is vented; met with family members to offer support and listening ear; pt was met by this hybrid car mechanic before in previous admission; family has good connection with local shinto and pastors as well
[2019-07-03] MEDS: Acetaminophen 650 MG/20 ML UDC GT (14:04)
[2019-07-03] MEDS: Ipratropium/Albuterol Sulfate 3 ML AMPUL.NEB INHALATION ×3 (15:24→23:00)
[2019-07-03] MEDS: fentaNYL drip 100 ML 12.5 MCG IV (15:24)
--- NOTE | 2019-07-03 16:00 | NURSING ---
This RN noticed that patients yellow ring tight on finger. This RN and ASPARAGUS BUNCHER Saloni Donato removed ring and given to patients , Roxana.
--- NOTE | 2019-07-03 17:40 | CON.PCM_ITS ---
Reason for Consult Date of Consultation: 07/03/19 History of Present Illness: The patient is a 53 year old M with a significant history of left bundle branch block; former smoker; left MCA stroke; Systolic heart failure( EF 27% on 02/18/19); left carotid endarterectomy; DVT; PE; left below the knee amputation who presented to the emergency department with cardiac arrest. History was taken from paramedics; emergency department doctor and patient's because patient was nonresponsive. Patient complains of left shoulder pain that started a day before presentation. However he notified his on the day of presentation. Shortly after notifying his patient was found unresponsive. Per paramedics patient had torsades and received ACLS with 3 rounds of epinephrine and 3 rounds of defibrillation. Also, he received magnesium. Patient obtained ROSC and was brought to the emergency department. When he arrived at the emergency department he had a supraglottic airway (I-GEL). Patient was subsequently intubated at the emergency department. Because of patient's history, EKG that was suspicious for anterior ST elevation VT and cardiac arrest due to ventricular tachycardia by history patient was taken emergently to the cardiac Visitor Service Assistant. He had difficult vascular access. We could not get right radial or ulnar access. Right common femoral artery was accessed but the external iliac artery appeared to be occluded. There was no pulse that was palpable on the left common femoral artery or left ulnar or radial arteries. With difficulty we were able to get right brachial artery access and we are able to successfully perform coronary angiography which revealed 100% occlusion of the LAD that was treated with thrombectomy and drug-eluting stent placement. The difficult vascular access led to delay to PCI. However we still were able to get the artery opened up less than 90 minutes after arrival to the ER. Patient's blood pressure improved after the PCI. He is being admitted to the ICU for further management of his acute VT complicated by cardiac arrest. Review of systems: This could not be obtained as patient is intubated. Past Medical History Allergies/Adverse Reactions: Allergies Penicillins Allergy (Verified 07/03/19 00:38) Swelling adhesive tape Adverse Reaction (Verified 07/03/19 00:38) Rash oxycodone [From OxyContin] Adverse Reaction (Verified 07/03/19 00:38) Other it makes me go nuts Home Medications: Ambulatory Orders Medication Instructions Recorded Apixaban [Eliquis] 5 mg PO BID 11/26/19 Acetaminophen [Tylenol Tablet] 650 mg PO Q4H PRN PRN tab 04/29/19 gabapentin 800 mg tablet 800 mg PO BID #60 tab 05/23/19 lisinopril 10 mg tablet 10 mg PO DAILY #90 tab 06/04/19 Aspirin 325 mg PO DAILY@0800 07/03/19 Carvedilol See Rx Instructions .ROUTE .COMPLEX 07/03/19 Past Medical History (Chronic Problems): Chronic Problems (Last Reviewed 07/03/19 @ 01:17 by Nish Peace MD) Chronic renal failure, stage 2 (mild) (Chronic) Depression (Chronic) History of carotid endarterectomy (Chronic) 04/22/19 at [facility] History of ischemic left MCA stroke (Chronic) 04/17/19 Debility (Chronic) due to L MCA stroke 04/17/19 Normochromic normocytic anemia (Chronic) LBBB (left bundle branch block) (Chronic) Dilated cardiomyopathy (Chronic) 27% EF on ECHO 02/18/19........non-ischemic. normal coronaries on cath August 2016 at [facility] Essential hypertension (Chronic) 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) at [facility] for severe PVD with non-healing wounds and recurrent infections LLE half-way current use of 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 (Chronic) Patient is on Coumadin for PE Peripheral arterial disease (Chronic) BL LE's....multiple stents in both legs Hypercoagulable state (Chronic) Positive lupus 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, positive anticardiolipin anti B IgM, and increased homocystine level Surgical History: cholecystectomy, - - Left carotid endarterectomy 04/22/2019 at [facility]. Left BKA for severe peripheral vascular disease with nonhealing wounds, cellulitis and osteomyelitis. Multiple stents in both lower extremities secondary to peripheral vascular disease. Multiple debridements of nonhealing wounds of the left lower extremity. Psychiatric History: No pertinent psych hx - *Family History Maternal Family History: Family History (Last Reviewed 07/03/19 @ 01:17 by Nish Peace MD) Other CVA (cerebral vascular accident) Cancer Heart disease History Items: Cancer, Diabetes, Heart Disease, Renal Disease Paternal Family History: Family History (Last Reviewed 07/03/19 @ 01:17 by Nish Peace MD) Other CVA (cerebral vascular accident) Cancer Heart disease History Items: Cancer Smoking Status: Former smoker Objective: Vital Signs Temp Pulse Resp BP Pulse Ox 101.5 F H 99 14 93/60 100 07/03/19 16:00 07/03/19 17:16 07/03/19 17:16 07/03/19 16:00 07/03/19 17:16 Oxygen Delivery Method Mechanical Ventilator Weight: 188 lb 0.869 oz Body Mass Index (BMI) 24.1 Finger Stick Blood Glucose 103 Intake and Output for Last 24 Hours 07/01/19 07/02/19 07/03/19 23:59 23:59 23:59 Intake Total 3202.03 / 3202.03 Output Total 1800 / 1800 Balance 1402.03 / 1402.03 General: - - Patient is intubated, sedated HEENT: Atraumatic Lungs: Clear to auscultation Cardiovascular: Normal S1, Normal S2 Abdomen: Soft Extremities: - - Left below-knee amputation noted. Skin: No Rashes 07/03/19 00:30: WBC 27.2 H, RBC 5.41, Hgb 15.4, Hct 49.8, MCV 92.1, MCH 28.5, MCHC 30.9 L, Plt Count 312, MPV 9.9, Immature Gran % (Auto) 4.200 H, Neut % (Auto) 47.8, Lymph % (Auto) 39.7, [place] % (Auto) 4.8, Eos % (Auto) 2.7, Baso % (Auto) 0.8, Absolute Neuts (auto) 13.0 H, Nucleated RBC % 0.1 07/03/19 00:30: PT 16.4 H, INR 1.3, APTT 36.8 H 07/03/19 00:30: Sodium 133 L, Potassium 4.7, Chloride 99, Carbon Dioxide 17.0 L, Anion Gap 17 H, BUN 12, Creatinine 2.01 H, Est GFR (MDRD) Af Amer 45 L, Est GFR (MDRD) Non-Af 37 L, BUN/Creatinine Ratio 6.0 L, Glucose 243 H, Calcium 9.4, Magnesium 3.1 H, Troponin I 1.850 H* 07/03/19 03:00: WBC 15.4 H, RBC 5.10, Hgb 14.6, Hct 45.3, MCV 88.8, MCH 28.6, MCHC 32.2, Plt Count 297, MPV 9.5, Immature Gran % (Auto) 1.300 H, Neut % (Auto) 78.7 H, Lymph % (Auto) 11.5 L, [place] % (Auto) 6.6, Eos % (Auto) 1.5, Baso % (Auto) 0.4, Absolute Neuts (auto) 11.9 H, Nucleated RBC % 0 07/03/19 03:00: Sodium 132 L, Potassium 5.4 H, Chloride 103, Carbon Dioxide 22.0, Anion Gap 7, BUN 14, Creatinine 1.71 H, Est GFR (MDRD) Af Amer 54 L, Est GFR (MDRD) Non-Af 45 L, BUN/Creatinine Ratio 8.2 L, Glucose 141 H, Calcium 8.1 L , Total Bilirubin 0.40 07/03/19 03:00: Troponin I 1.610 H* 07/03/19 04:11: pH 7.28 L, Bicarbonate Actual 22.9, POC Total CO2 24, Base Excess -4 L, O2 Saturation 100 H, ABG pCO2 48.8 H, ABG pO2 397 H*, Georges Test NA 07/03/19 06:20: Troponin I 6.120 H* 07/03/19 09:30: pH 7.31 L, Bicarbonate Actual 19.3 L, POC Total CO2 20, Base Excess -7 L, O2 Saturation 94 L, ABG pCO2 38.6, ABG pO2 77 Rhythm: EKG: ECHO: Stress Test: Cardiac Cath: PCI: CT Surgery: Holter monitor: EPS: PPM: CXR: Chest CT Scan: Assessment/Plan 1. Cardiac arrest: Due to torsades (by history, strips were not available for me to see) secondary to acute anterior ST elevation VT. Patient was treated with thrombectomy and drug-eluting stent placement to the LAD. He is being admitted to the ICU for further management. We will keep the patient on dual antiplatelet therapy. His blood pressure borderline and subsequently required initiation of Levophed. Recommend going down on the propofol and using fentanyl and/or Versed for sedation if possible. Explained to the family that it is unclear how much neurological insult he has suffered from his cardiac arrest and that will ultimately determine his prognosis for the most part. 2. LV systolic dysfunction: Patient is on Levophed at this time. He has LV apical thrombus as well. At this time continue aspirin, Brilinta and his Eliquis.
[2019-07-03] MEDS: APIXABAN 5 MG TABLET PO (21:33)
[2019-07-03] MEDS: Atorvastatin Calcium 80 MG Tablet PO (21:33)
[2019-07-03] MEDS: fentaNYL drip 100 ML 15 MCG IV (23:49)
--- NOTE | 2019-07-03 23:54 | NURSING ---
fentanyl gtt showed in computer as empty at 2231 however bag still had volume in it until 2330. unable to chart CPOT at 2300 in [facility] because of inaccurate volume listed in computer system.
[2019-07-04] VITALS (49 sets, daily range): BP systolic 96–148; BP diastolic 57–91; PULSE 14–115; RESP 12–21; TEMP 37.3–37.9; O2SAT 92–100; BMI 29.8
[2019-07-04] MEDS: Propofol 10MG/Ml 1,000 MG/100 ML Bottle 9 MG CONT INF (03:00)
[2019-07-04] MEDS: Ipratropium/Albuterol Sulfate 3 ML AMPUL.NEB INHALATION ×6 (03:30→23:05)
[2019-07-04 05:16] LABS: Absolute Lymphocyte Count 1.86 X10^3/uL (0.83-4.51); Absolute Neutrophil Count 5.1 X10^3/uL (2.0-7.7); Basophil# 0.09 X10^3/uL; Basophil% 1.1 % (0-1); Eosinophil# 0.35 X10^3/uL; Eosinophils% 4.2 % (0-5); Hematocrit 35.6 % (40-54); Hemoglobin 11.1 g/dL (13.0-16.5); Lymphocyte # 1.86 X10^3/ul (4.0); Lymphocyte % 22.1 % (19-41); Mean Corp Hgb Conc 31.2 g/dL (32-36); Mean Corpuscular Hgb 27.9 pg (27.0-32.0); Mean Corpuscular Volume 89.4 fL (80-94); Mean Platelet Vol. 9.2 fl (6.2-12.0); Monocyte# 0.93 X10^3/uL; Monocyte% 11.1 % (0-10); NRBC Flagged by Analyzer 0 % (0-5); Neutrophil # 5.14 X10^3/uL (2.7-7.7); Neutrophil % 61.1 % (47-70); Platelet Count 205 K/mm3 (150-450); RBC Distribution Width CV 16.3 % (11.6-14.6); RBC Distribution Width SD 53.7 fl (35.1-43.9); Red Blood Count 3.98 M/mm3 (4.6-6.2); White Blood Count 8.4 K/mm3 (4.4-11.0)
--- NOTE | 2019-07-04 05:19 | EKG12_ITS ---
Test Reason : Blood Pressure : / mmHG Vent. Rate : 100 BPM Atrial Rate : 100 BPM P-R Int : 160 ms QRS Dur : 138 ms QT Int : 392 ms P-R-T Axes : 066 -18 129 degrees QTc Int : 505 ms Normal sinus rhythm Left bundle branch block Abnormal ECG When compared with ECG of 03-JUL-2019 06:08, MANUAL COMPARISON REQUIRED, DATA IS UNCONFIRMED Confirmed by NGUYEN BUSH, NICHOL ([id number]), supervising editor news reel MACHO SAUCEDO ([id number]) on 07/08/2019 1:16:43 PM Referred By: Christie Tate Confirmed By:SWETHA TATE MD
[2019-07-04 05:40] LABS: Cholesterol < 50 mg/dL (200); High Density Lipoprotein 22 mg/dL; Triglycerides 123 mg/dL; Very Low Density Lipoprotein 25 mg/dL (5-40)
[2019-07-04 06:31] LABS: ALB/GLOB Ratio 0.7 RATIO (0.9-2.4); AST(SGOT) 122 U/L (15-37); Alanine Aminotransfer ALT/SGPT 51 U/L (16-61); Albumin, Serum 2.4 g/dL (3.2-5.0); Alkaline Phosphatase 80 U/L (45-117); Anion Gap 4 (5-15); BUN 13 mg/dL (7-18); BUN/Creat Ratio 8.9 RATIO (10-20); Chloride 108 mmol/L (98-107); Creatinine, Serum 1.46 mg/dL (0.70-1.30); EST Glomerular Filtration Rate 54 mL/min (>60); Est Glom Filt Rate - Afr Amer 65 mL/min (>60); Estimated Creatinine Clearance 68.03 ml/min; Globulin 3.3 g/dL (2.2-4.2); Glucose 101 mg/dL (74-106); Potassium 4.3 mmol/L (3.5-5.1); Protein, Total 5.7 g/dL (6.4-8.2); Sodium Level 135 mmol/L (136-145)
[2019-07-04 06:51] LABS: Base Excess -6 mmol/L (-2 to +2); Bicarbonate 19.4 mmol/L (22-26); Blood Gas Specimen Type ART; FI02 30; Mode CPAP PS; O2 Delivery Device Vent; PEEP 5; PO2 81 mmHG (75-100); PS 5; SITE OTHER; SO2 96 % (95-99); Time Given 700; Total Carbon Dioxide 20 mmol/L; pCO2 34.1 mmHg (35-45); pH 7.36 (7.35-7.45)
--- NOTE | 2019-07-04 08:57 | CRPHASE1 ---
Patient Communication PHII Cardiac Rehab Discussed with Patient:: Yes Guide to Cardiac Rehab Given to Patient:: Yes Cardiac Rehab Facility Choice List Given to Patient:: Yes - [facility] Choice Program [facility] CR PHII:: Communication Given to CR - [facility], Refer to [facility] Mast Maker:: Christie Tate Phase II Cardiac Rehab:: Yes Sessions:: 36 sessions - 3 days/wk, 12 weeks Phase I Charge:: Level I - Education Risk Factors/Lifestyle Smoking Status: Former smoker - Quit Mar 2019 Hx Hypertension: Yes Hx Diabetes Mellitus Type 1: No Hx Diabetes Mellitus Type 2: No Hx Metabolic Disorders: Yes Hx Dyslipidemia: Yes Hx Obesity: Yes Height: 6 ft Weight:: 220 lb BMI: 29.8 Stress: Recent, Long-standing ETOH: Yes Risk Factor for Sedentary Lifestyle: Highest Risk Family History: Family History (Last Reviewed 07/03/19 @ 01:17 by Nish Peace MD) Other CVA (cerebral vascular accident) Cancer Heart disease Laboratory Values: Cardiac Rehab Phase I Labs Triglycerides 123 mg/dL (-199) 07/04/19 05:00 Cholesterol < 50 mg/dL (200) 07/04/19 05:00 LDL Cholesterol TNP 07/04/19 05:00 HDL Cholesterol 22 mg/dL (40-) L 07/04/19 05:00 Phase I Education Given On:: [place], Nutrition, Antiplatelet medication Issues Affecting Care:: Physical - Left leg amputation, Cognitive - Forgetful, just extubated 2/4, had CPR Knowledge of Condition:: Yes Learning Preferences: Verbal, Written, Audio/Visual, Demonstration Cardiac Rehabilitation Info Cardiac Rehabilitation Program Information: Cardiac Rehabilitation is important for patients like you who are recovering from a heart problem. Cardiac rehabilitation programs are recognized as integral to the continued care of the patient with coronary heart disease. The cardiac rehabilitation program is designed to optimize a patient's physical, psychological, and social functioning. Health rn progressive care work in cardiac rehabilitation programs and assist you with getting the treatments you need to get stronger and healthier - like exercise, healthy eating habits, and medications. Cardiac rehabilitation has been show to help people with heart problems live longer and have better life enjoyment than people who do not go to cardiac rehabilitation. Please contact the Cardiac Rehabilitation Program at [facility] at in two weeks if you have not heard from them.
--- NOTE | 2019-07-04 09:02 | CRPH1.INSTRU ---
General Education CAD and cardiac anatomy and function:: Patient communicates acknowledgment, Family communicates acknowledgment, Needs reinforcement Explanation of diagnoses and procedures:: Patient communicates acknowledgment, Family communicates acknowledgment, Needs reinforcement Sign/Symptoms of [place]:: Patient communicates acknowledgment, Family communicates acknowledgment, Needs reinforcement Antiplatelet therapy: Patient communicates acknowledgment, Family communicates acknowledgment, Needs reinforcement Proper use of NTG-SL: Not instructed Emergency procedures and activation of EMS: Patient communicates acknowledgment, Family communicates acknowledgment, Needs reinforcement Compliance of all prescribed medications: Patient communicates acknowledgment, Family communicates acknowledgment, Needs reinforcement Smoking Recommendations Include:: Participation in a smoking cessation program, Previous smoker; encourage continued cessation Nicotine/Smoking Response Code:: Patient communicates acknowledgment, Family communicates acknowledgment, Needs reinforcement - Quit Mar 2019 Dyslipidemia Patient Dyslipidemia Risk Factors Are:: Total Cholesterol, Triglycerides, HDL, LDL Recommendations Include:: Lipid profile provided, Reviewed NCEP/ATP guidelines, Therapeutic Lifestyle Change dietary guidelines Dyslipidemia Response Code:: Patient communicates acknowledgment, Family communicates acknowledgment, Needs reinforcement Overweight/Obesity Patient Overweight/Obesity Risk Factors Are:: Overweight = 26-29 Recommendations Include:: Weight loss of 5-10%, Reduced calorie diet, Exercise 5-7 times/week Overweight/Obesity:: Patient communicates acknowledgment, Family communicates acknowledgment, Needs reinforcement Hypertension Recommendations Include:: Maintain BP <130/85, DASH dietary guidelines, Decrease/maintain normal body weight, Moderation of ETOH Hypertension:: Patient communicates acknowledgment, Family communicates acknowledgment, Needs reinforcement Heart Disease Patient Heart Disease Risk Factors Are:: Family history of heart disease < 65 years old, Previous cardiac event Recommendations Include:: Educated family members of their risk, Educated family members of importance of prevention of heart disease Heart Disease Response Code:: Patient communicates acknowledgment, Family communicates acknowledgment, Needs reinforcement Diabetes Patient Diabetes Risk Factors Are:: No documented hx of diabetes Diabetes:: Not instructed Metabolic Syndrome Patient Metabolic Syndrome Risk Factors Are [3 of 5]:: Waist circumference > 35 [female] or 40 [male], Hypertension, Low HDL <40 [male] or < 50 [female] Recommendations Include:: Reinforce compliance to risk factor modifications, Encouraged follow-up with Primary Care Physician Metabolic Syndrome Response Code:: Patient communicates acknowledgment, Family communicates acknowledgment, Needs reinforcement Sedentary Patient Sedentary Risk Factors Are:: Lack of regular exercise Recommendations Include:: Aerobic exercise 5-7 times/week for 20-30 minutes continuously, Benefits of regular exercise, Discussed home walking program, Monitored Outpatient Cardiac Rehab Sedentary Response Code:: Patient communicates acknowledgment, Family communicates acknowledgment, Needs reinforcement Stress Recommendations Include:: Identification of stressors, and assessment of coping skills, Stress management techniques Stress Response Code:: Patient communicates acknowledgment, Family communicates acknowledgment, Needs reinforcement
--- NOTE | 2019-07-04 09:50 | PN_ITS ---
Subjective: Patient did well overnight. No acute issues were reported. Patient was able to be weaned off of Levophed. Patient was extubated under my direct supervision this morning without issue. Patient does have short-term memory issues. Patient is reporting chest pain, but no nausea or vomiting. Patient is asking to eat. Objective: Echocardiogram results were reviewed. Patient does have a mural thrombus with decreased systolic function. General: Alert, Oriented x3, Cooperative, No apparent distress, - - Some issues with short-term memory HEENT: Atraumatic, PERRLA, EOMI, Normocephalic, - - Slight scleral injection without icterus Oral: Moist Mucosa, No Gingival or Mucosal Lesions/ Ulcerations Neck: Supple, No JVD, No Nodes, Trachea Midline Lungs: No rhonchi, No wheeze, No rales, Diminished, - - Symmetric expansion. No dullness to percussion. Cardiovascular: Regular rate, Regular Rhythm, Normal S1, Normal S2, No murmurs, No rub noted, No Gallop Abdomen: Bowel Sounds Present, Soft, Non Tender, Non-Distended Extremities: No clubbing, No cyanosis, No edema, Capillary Refill Less than 3 Seconds Skin: No rashes, No breakdown Musculoskeletal: No Tenderness to Palpation of Joints or Extremities Lymphatic: No Cervical, Supraclavicular, or Inguinal Adenopathy Neurological: Cranial nerves II-XII grossly intact, Neuro grossly intact, Motor Exam 5/5 strength throughout Psych/Mental Status: Normal Affect, Appropriate Vital Signs Temp Pulse Resp BP Pulse Ox 37.6 C H 110 H 16 148/87 H 100 07/04/19 05:00 07/04/19 07:00 07/04/19 07:00 07/04/19 07:00 07/04/19 07:00 Oxygen Flow Rate (L/min) 2 Oxygen Delivery Method Nasal Cannula Weight: 99.79 kg Body Mass Index (BMI) 24.1 Finger Stick Blood Glucose 103 Intake and Output for Last 24 Hours 07/02/19 07/03/19 07/04/19 23:59 23:59 23:59 Intake Total 3874.48 / 3888.58 474.40 / 474.40 Output Total 2200 / 2550 650 / 650 Balance 1674.48 / 1338.58 -175.60 / -175.60 Labs (Last 48 Hours) 0207/03/19 07/03/19 00:30 00:30 00:30 WBC 27.2 H RBC 5.41 Hgb 15.4 Hct 49.8 MCV 92.1 MCH 28.5 MCHC 30.9 L RDW Std Deviation 53.7 H RDW Coeff of Lawson 15.9 H Plt Count 312 MPV 9.9 Immature Gran % (Auto) 4.200 H Neut % (Auto) 47.8 Lymph % (Auto) 39.7 Kendall % (Auto) 4.8 Eos % (Auto) 2.7 Baso % (Auto) 0.8 Absolute Neuts (auto) 13.0 H Absolute Lymphs (auto) 10.78 H Nucleated RBC % 0.1 Differential Comment SCANNED Reactive Lymphocytes 1+ Plt Morphology Comment CLUMPED PT 16.4 H INR 1.3 APTT 36.8 H Specimen Type Sample Site pH Bicarbonate Actual POC Total CO2 Base Excess O2 Saturation O2 % ABG pCO2 ABG pO2 Georges Test Respiration Rate O2 Delivery Device Minute Volume Vent Mode Tidal Volume POC PEEP POC Pressure Suppt Blood Gas Notified Whom Blood Gas Notified Time Sodium 133 L Potassium 4.7 Chloride 99 Carbon Dioxide 17.0 L Anion Gap 17 H BUN 12 Creatinine 2.01 H Estim Creat Clear Calc 46.65 Est GFR (MDRD) Af Amer 45 L Est GFR (MDRD) Non-Af 37 L BUN/Creatinine Ratio 6.0 L Glucose 243 H Calcium 9.4 Magnesium 3.1 H Total Bilirubin AST ALT Alkaline Phosphatase Troponin I 1.850 H* Total Protein Albumin Globulin Albumin/Globulin Ratio Triglycerides Cholesterol LDL Cholesterol VLDL Cholesterol HDL Cholesterol 07/03/19 07/03/19 07/03/19 03:00 03:00 03:00 WBC 15.4 H RBC 5.10 Hgb 14.6 Hct 45.3 MCV 88.8 MCH 28.6 MCHC 32.2 RDW Std Deviation 51.7 H RDW Coeff of Lawson 15.9 H Plt Count 297 MPV 9.5 Immature Gran % (Auto) 1.300 H Neut % (Auto) 78.7 H Lymph % (Auto) 11.5 L Kendall % (Auto) 6.6 Eos % (Auto) 1.5 Baso % (Auto) 0.4 Absolute Neuts (auto) 11.9 H Absolute Lymphs (auto) 1.73 Nucleated RBC % 0 Differential Comment Reactive Lymphocytes Plt Morphology Comment PT INR APTT Specimen Type Sample Site pH Bicarbonate Actual POC Total CO2 Base Excess O2 Saturation O2 % ABG pCO2 ABG pO2 Georges Test Respiration Rate O2 Delivery Device Minute Volume Vent Mode Tidal Volume POC PEEP POC Pressure Suppt Blood Gas Notified Whom Blood Gas Notified Time Sodium 132 L Potassium 5.4 H Chloride 103 Carbon Dioxide 22.0 Anion Gap 7 BUN 14 Creatinine 1.71 H Estim Creat Clear Calc 54.83 Est GFR (MDRD) Af Amer 54 L Est GFR (MDRD) Non-Af 45 L BUN/Creatinine Ratio 8.2 L Glucose 141 H Calcium 8.1 L Magnesium Total Bilirubin 0.40 AST 83 H ALT 46 Alkaline Phosphatase 81 Troponin I 1.610 H* Total Protein 7.5 Albumin 3.2 Globulin 4.3 H Albumin/Globulin Ratio 0.7 L Triglycerides Cholesterol LDL Cholesterol VLDL Cholesterol HDL Cholesterol 07/03/19 07/03/19 07/03/19 04:11 06:20 09:30 WBC RBC Hgb Hct MCV MCH MCHC RDW Std Deviation RDW Coeff of Lawson Plt Count MPV Immature Gran % (Auto) Neut % (Auto) Lymph % (Auto) Kendall % (Auto) Eos % (Auto) Baso % (Auto) Absolute Neuts (auto) Absolute Lymphs (auto) Nucleated RBC % Differential Comment Reactive Lymphocytes Plt Morphology Comment PT INR APTT Specimen Type SY DAN Sample Site R Brachial pH 7.28 L 7.31 L Bicarbonate Actual 22.9 19.3 L POC Total CO2 24 20 Base Excess -4 L -7 L O2 Saturation 100 H 94 L O2 % 100 30 ABG pCO2 48.8 H 38.6 ABG pO2 397 H* 77 Georges Test NA Respiration Rate 20 14 O2 Delivery Device Vent Vent Minute Volume 10.00 Vent Mode A-C A-C Tidal Volume 500 500 POC PEEP 5 5 POC Pressure Suppt Blood Gas Notified Whom HOSP ICU Blood Gas Notified Time 947 Sodium Potassium Chloride Carbon Dioxide Anion Gap BUN Creatinine Estim Creat Clear Calc Est GFR (MDRD) Af Amer Est GFR (MDRD) Non-Af BUN/Creatinine Ratio Glucose Calcium Magnesium Total Bilirubin AST ALT Alkaline Phosphatase Troponin I 6.120 H* Total Protein Albumin Globulin Albumin/Globulin Ratio Triglycerides Cholesterol LDL Cholesterol VLDL Cholesterol HDL Cholesterol 07/04/19 07/04/19 07/04/19 05:00 05:00 05:00 WBC 8.4 RBC 3.98 L Hgb 11.1 L Hct 35.6 L MCV 89.4 MCH 27.9 MCHC 31.2 L RDW Std Deviation 53.7 H RDW Coeff of [place] 16.3 H Plt Count 205 MPV 9.2 Immature Gran % (Auto) 0.400 Neut % (Auto) 61.1 Lymph % (Auto) 22.1 Kendall % (Auto) 11.1 H Eos % (Auto) 4.2 Baso % (Auto) 1.1 H Absolute Neuts (auto) 5.1 Absolute Lymphs (auto) 1.86 Nucleated RBC % 0 Differential Comment Reactive Lymphocytes Plt Morphology Comment PT INR APTT Specimen Type Sample Site pH Bicarbonate Actual POC Total CO2 Base Excess O2 Saturation O2 % ABG pCO2 ABG pO2 Georges Test Respiration Rate O2 Delivery Device Minute Volume Vent Mode Tidal Volume POC PEEP POC Pressure Suppt Blood Gas Notified Whom Blood Gas Notified Time Sodium 135 L Potassium 4.3 Chloride 108 H Carbon Dioxide 23.0 Anion Gap 4 L BUN 13 Creatinine 1.46 H Estim Creat Clear Calc 68.03 Est GFR (MDRD) Af Amer 65 Est GFR (MDRD) Non-Af 54 L BUN/Creatinine Ratio 8.9 L Glucose 101 Calcium 8.0 L Magnesium Total Bilirubin 2.70 H AST 122 H ALT 51 Alkaline Phosphatase 80 Troponin I Total Protein 5.7 L Albumin 2.4 L Globulin 3.3 Albumin/Globulin Ratio 0.7 L Triglycerides 123 Cholesterol < 50 LDL Cholesterol TNP VLDL Cholesterol 25 HDL Cholesterol 22 L 07/04/19 06:46 WBC RBC Hgb Hct MCV MCH MCHC RDW Std Deviation RDW Coeff of Lawson Plt Count MPV Immature Gran % (Auto) Neut % (Auto) Lymph % (Auto) Kendall % (Auto) Eos % (Auto) Baso % (Auto) Absolute Neuts (auto) Absolute Lymphs (auto) Nucleated RBC % Differential Comment Reactive Lymphocytes Plt Morphology Comment PT INR APTT Specimen Type ART Sample Site OTHER pH 7.36 Bicarbonate Actual 19.4 L POC Total CO2 20 Base Excess -6 L O2 Saturation 96 O2 % 30 ABG pCO2 34.1 L ABG pO2 81 Georges Test NA Respiration Rate O2 Delivery Device Vent Minute Volume Vent Mode CPAP PS Tidal Volume POC PEEP 5 POC Pressure Suppt 5 Blood Gas Notified Whom ICU Blood Gas Notified Time 700 Sodium Potassium Chloride Carbon Dioxide Anion Gap BUN Creatinine Estim Creat Clear Calc Est GFR (MDRD) Af Amer Est GFR (MDRD) Non-Af BUN/Creatinine Ratio Glucose Calcium Magnesium Total Bilirubin AST ALT Alkaline Phosphatase Troponin I Total Protein Albumin Globulin Albumin/Globulin Ratio Triglycerides Cholesterol LDL Cholesterol VLDL Cholesterol HDL Cholesterol Microbiology 07/03/19 06:45 Sputum, Expectorated/Coughed Gram Stain - Final Medical Necessity - Tobacco Use Smoking Status: Former smoker - Quit Mar 2019 Assessment/Plan All Active Problems (Last Reviewed 07/03/19 @ 01:17 by Nish Peace MD) Cardiac arrest (Acute) History of left heart catheterization (LHC) (Resolved ~09/14/16) History of cardiac radiofrequency ablation (Resolved ~02/25/13) JUAN (acute kidney injury) (Resolved) Chronic osteomyelitis of left tibia (Resolved) Dermatitis (Resolved) Ischemic ulcer of right foot (Resolved) Osteomyelitis of left lower extremity (Resolved) Thrush, oral (Resolved) Ulceration of below knee amputation stump (Resolved) Wound, surgical, nonhealing (Resolved) RECOMMENDATIONS: 1. Okay to remove brachial sheath 2. Bedside swallow evaluation 3. Initiate p.o. diet if tolerates swallow eval 4. Wean oxygen as tolerated 5. Initiate pain medications with bowel regimen 6. Continue empiric antibiotics until culture negative IMPRESSIONS: 1. Cardiac arrest secondary to probable ST elevation [place] Patient with urgent cardiac catheterization and found to have an LAD lesion. Patient reportedly had extensive downtime, but did have rapid CPR. Patient had a left bundle branch block at baseline, so ST elevation would be difficult to assess. Patient has had good response to therapy. Unfortunately, patient does appear to have a mural thrombus, so anticoagulation will be necessary. 2. Cardiogenic shock secondary to #1 Resolved. Patient's last known ejection fraction was 27% in January. Clinical suspicion for decrease in function. Cardiology following. 3. Acute hypercarbic respiratory failure Clinical suspicion for decreased respiratory effort secondary to #1. Patient does not have any acute infiltrates on chest x-ray. No wheezing is noted on exam, so okay to use aerosols only as needed from my perspective. Patient does have a smoking history, but no history of COPD. Sputum culture is showing gram-positive cocci and patient did have a fever overnight. Continue with empiric antibiotics for now. Possibly discontinue at 48 hours of culture negative 4. Chronic systolic congestive heart failure/mural thrombus Patient currently is hypotensive, so beta-marietta, ALIZE inhibitor and aspirin will be held. Patient is on systemic anticoagulation with Eliquis, but will need to be held for now given need for possible interventions. Patient does not appear to have any pulmonary or lower extremity edema at this time. Would defer to cardiology on reinitiation of ALIZE inhibitor, beta-marietta and other cardiac medications 5. Peripheral vascular disease/clotting disorder/tobacco abuse/chronic pain syndrome Complicates care, management, recovery and prognosis. Patient was confirmed a full code with family. Okay to receive blood products. Brachial sheath to be discontinued. Okay to reinitiate baseline Neurontin from my perspective TIME: 35 minutes of critical care time spent addressing cardiac arrest, cardiogenic shock, respiratory failure, CODE STATUS, review of all data and collaboration with care team (6 AM to 7 AM) Code Visit 9xxxx: [id number] Critical care first hour
--- NOTE | 2019-07-04 10:00 | EKG12_ITS ---
Test Reason : AM Blood Pressure : / mmHG Vent. Rate : 093 BPM Atrial Rate : 093 BPM P-R Int : 162 ms QRS Dur : 160 ms QT Int : 384 ms P-R-T Axes : 071 -02 138 degrees QTc Int : 477 ms Normal sinus rhythm Left bundle branch block Abnormal ECG When compared with ECG of 04-JUL-2019 16:21, MANUAL COMPARISON REQUIRED, DATA IS UNCONFIRMED Confirmed by NGUYEN BUSH, NICHOL ([id number]), acquisition editor LINDSAY SIDDIQUI ([id number]) on 07/08/2019 11:06:39 AM Referred By: Christie Tate Confirmed By:SWETHA TATE MD
--- NOTE | 2019-07-04 10:03 | CASEMGMT ---
RN CM Assessment Note Presentation: Anterior STEMI, s/p thrombectomy and stent to LAD. Post cardiac arrest. Intro role of CM and purpose of RN CM assessment to pt and . Demographics, PCP and Pharmacy verified. Pt awake, alert, able to participate some in assessment, able to answer if pt unable. Appears to have memory issues and delayed answering questions. -Pt with hx of CVA, Rehab @ [facility] RU 04/24/20-04/29/20. Hx of [facility] Specialists: Dr. Tate, cardiology. Neurologist in [place]. Preferred Pharmacy: [facility] Insurance: [employer] Prescription Benefit: yes LNOK: Roxana Alcantar Living Arrangements: Lives in one story home with ramp into home. Uses WC, walker. Transportation: family drives DME: walker, wheelchair, tub bench HHC/SNF: Previously @ [facility] Rehab. Home with OP PT @ that time. Patient DC goals: undetermined DC PLAN: undetermined. Mio PATEL RN ACM
--- NOTE | 2019-07-04 10:22 | CASEMGMT ---
SW spoke w/ and family, support given. Pt is extubated and states she feels she can breathe again. told SW exactly what happened when pt went unconscious, and that her son who is 17 did CPR. Many family members here, seem to be supportive of one another. gave SW insurance card, SW copied and gave back to her, faxed to the financial dept and left a message for Stacey in financial dept. SW will continue to follow for support and any other social service needs. EDWARD Davila
[2019-07-04] MEDS: HYDROcodone Bitartrate/Apap 5/325 Tablet PO ×3 (10:36→21:33)
[2019-07-04] MEDS: Aspirin 81 MG TAB.CHEW PO (10:45)
[2019-07-04] MEDS: TICAGRELOR 90 MG TABLET PO ×2 (10:45→21:16)
[2019-07-04] MEDS: APIXABAN 5 MG TABLET PO ×2 (10:45→21:16)
[2019-07-04] MEDS: Famotidine 20 MG Tablet GT ×2 (10:45→21:16)
--- NOTE | 2019-07-04 12:29 | PN_ITS ---
Patient Problems: Active and Suspected Problems (Last Reviewed 07/03/19 @ 01:17 by Nish Peace MD) Cardiac arrest (Acute) Reason for Visit: cardiac arrest Subjective: Extubated today. No shortness of breath. Vitals/I&O's: Vital Signs Temp Pulse Resp BP Pulse Ox 37.6 C H 111 H 18 148/87 H 100 07/04/19 05:00 07/04/19 10:57 07/04/19 10:57 07/04/19 07:00 07/04/19 07:00 Oxygen Flow Rate (L/min) 2 Oxygen Delivery Method Nasal Cannula Weight: 99.79 kg Body Mass Index (BMI) 24.1 Finger Stick Blood Glucose 103 Intake and Output for Last 24 Hours 07/02/19 07/03/19 07/04/19 23:59 23:59 23:59 Intake Total 3874.48 / 3888.58 474.40 / 474.40 Output Total 2200 / 2550 650 / 650 Balance 1674.48 / 1338.58 -175.60 / -175.60 General: Alert, Cooperative, No apparent distress HEENT: Atraumatic, Normocephalic Oral: Moist Mucosa, No Gingival or Mucosal Lesions/ Ulcerations Neck: No Nodes, Trachea Midline Lungs: - - coarse breath sounds bilateraly. Cardiovascular: Regular rate, Regular Rhythm, Normal S1, Normal S2, No murmurs Abdomen: Bowel Sounds Present, Soft, Non Tender, Non-Distended Extremities: No edema, No Calf Tenderness, - - Left BKA Musculoskeletal: No Tenderness to Palpation of Joints or Extremities, No Muscle Wasting Neurological: Coordination normal, - - no clonus Psych/Mental Status: Normal Affect, Appropriate Microbiology Past 72 Hours 07/03/19 06:45 Sputum, Expectorated/Coughed Gram Stain - Final Laboratory Results 07/04/19 05:00: WBC 8.4, RBC 3.98 L, Hgb 11.1 L, Hct 35.6 L, MCV 89.4, MCH 27.9, MCHC 31.2 L, RDW Std Deviation 53.7 H, RDW Coeff of Lawson 16.3 H, Plt Count 205, MPV 9.2, Immature Gran % (Auto) 0.400, Neut % (Auto) 61.1, Lymph % (Auto) 22.1, [place] % (Auto) 11.1 H, Eos % (Auto) 4.2, Baso % (Auto) 1.1 H, Absolute Neuts (auto) 5.1, Absolute Lymphs (auto) 1.86, Nucleated RBC % 0 07/04/19 05:00: Triglycerides 123, Cholesterol < 50, LDL Cholesterol TNP, VLDL Cholesterol 25, HDL Cholesterol 22 L 07/04/19 05:00: Sodium 135 L, Potassium 4.3, Chloride 108 H, Carbon Dioxide 23.0, Anion Gap 4 L, BUN 13, Creatinine 1.46 H, Estim Creat Clear Calc 68.03, Est GFR (MDRD) Af Amer 65, Est GFR (MDRD) Non-Af 54 L, BUN/Creatinine Ratio 8.9 L, Glucose 101, Calcium 8.0 L, Total Bilirubin 2.70 H, AST 122 H, ALT 51, Alkaline Phosphatase 80, Total Protein 5.7 L, Albumin 2.4 L, Globulin 3.3, Albumin/Globulin Ratio 0.7 L 07/04/19 06:46: Specimen Type ART, Sample Site OTHER, pH 7.36, Bicarbonate Actual 19.4 L, POC Total CO2 20, Base Excess -6 L, O2 Saturation 96, O2 % 30, ABG pCO2 34.1 L, ABG pO2 81, Georges Test NA, O2 Delivery Device Vent, Vent Mode CPAP PS, POC PEEP 5, POC Pressure Suppt 5, Blood Gas Notified Whom ICU MD, Blood Gas Notified Time 700 Current Medications Acetaminophen (Tylenol) 650 mg PO Q6H PRN PRN PRN Reason: Pain (1-10) or Fever Hydrocodone Bitart/Acetaminophen ([place] 5mg-325mg) 1 tablet PO Q6H PRN PRN PRN Reason: Pain Score 6-10/10 Last Admin: 07/04/19 10:36 Dose: 1 tablet Documented by: Albuterol Sulfate (Ventolin Aerosols) 2.5 mg INHALATION Q2H PRN PRN PRN Reason: SOB/WHEEZING Last Admin: 07/03/19 11:35 Dose: 2.5 mg Documented by: Albuterol/Ipratropium (Duoneb) 3 ml INHALATION Q4H.RT ERIKA Last Admin: 07/04/19 10:57 Dose: 3 ml Documented by: Apixaban (Eliquis) 5 mg PO BID ERIKA Last Admin: 07/04/19 10:45 Dose: 5 mg Documented by: Aspirin (Aspirin, Baby) 81 mg PO DAILY@0800 [facility] Last Admin: 07/04/19 10:45 Dose: 81 mg Documented by: Atorvastatin Calcium (Lipitor) 80 mg PO QHS [facility] Last Admin: 07/03/19 21:33 Dose: 80 mg Documented by: Atropine Sulfate () 0.5 mg IV UD PRN PRN Reason: HR <50 bpm Chlorhexidine Gluconate () 15 ml PO BID [facility] Last Admin: 07/03/19 21:33 Dose: 15 ml Documented by: Chlorhexidine Gluconate () 1 each TOPICAL DAILY [facility] Famotidine (Pepcid) 20 mg GT BID [facility] Last Admin: 07/04/19 10:45 Dose: 20 mg Documented by: Glucagon () 1 mg IM .X1 PRN PRN Reason: Hypoglycemia Heparin Sodium (Beef Lung) (Heparin 500 Unit/5 Ml (100/Ml)) 500 unit IV UD PRN PRN Reason: HEPARIN FLUSH Propofol (Diprivan) 1,000 mg in 100 mls @ 5.988 mls/hr CONT INF .Q12H [facility]; Protocol Last Titration: 07/04/19 10:48 Dose: Infused Documented by: Fentanyl () 100 mls @ 2.5 mls/hr IV UD [facility]; Protocol Last Titration: 07/04/19 10:48 Dose: Infused Documented by: Sodium Chloride () 250 mls @ 15 mls/hr IV .[id number] PRN PRN Reason: Saline Flush Sodium Chloride () 250 mls @ 15 mls/hr IV .[id number] PRN PRN Reason: Additional IVPB Infusion Sodium Chloride () 1,000 mls @ 1 mls/hr IV .Q48H PRN PRN Reason: Saline Flush Dextrose (Dextrose 10%-Water) 250 mls @ 999 mls/hr IV .Q16M PRN; Protocol PRN Reason: HYPOGLYCEMIA Norepinephrine Bitartrate 8 mg (/ Sodium Chloride) 250 mls @ 9.375 mls/hr CONT INF .[id number] [facility]; Protocol Last Titration: 07/04/19 05:30 Dose: 0 mcg/min, 0 mls/hr Documented by: Meropenem 1 gm/ Sodium (Chloride) 120 mls @ 33 mls/hr IV Q8 [facility] Last Infusion: 07/04/19 09:21 Dose: Infused Documented by: Labetalol HCl (Trandate) 5 mg IV X1 PRN PRN Reason: SBP > 160 WHEN PULLING SHEATH Polyethylene Glycol (Miralax) 17 gm PO DAILY PRN PRN Reason: CONSTIPATION Senna/Docusate Sodium (Senokot-S, Ami-Colace) 2 tablet PO BID [facility] Sodium Chloride () 500 ml IV BOLUS PRN PRN Reason: VASO-VAGAL PROTOCOL Sodium Chloride () 10 - 40 ml IV UD PRN PRN Reason: SALINE FLUSH Ticagrelor (Brilinta) 90 mg PO BID [facility] Last Admin: 07/04/19 10:45 Dose: 90 mg Documented by: STROKE Vital Signs/Narrative: Vital Signs Pulse Resp 07/04/19 10:57 111 H 18 Medical Necessity - Tobacco Use Smoking Status: Former smoker - Quit Mar 2019 Assessment/Plan All Active Problems (Last Reviewed 07/03/19 @ 01:17 by Nish Peace MD) Cardiac arrest (Acute) History of left heart catheterization (LHC) (Resolved ~09/14/16) History of cardiac radiofrequency ablation (Resolved ~02/25/13) JUAN (acute kidney injury) (Resolved) Chronic osteomyelitis of left tibia (Resolved) Dermatitis (Resolved) Ischemic ulcer of right foot (Resolved) Osteomyelitis of left lower extremity (Resolved) Thrush, oral (Resolved) Ulceration of below knee amputation stump (Resolved) Wound, surgical, nonhealing (Resolved) Assessment 1. cardiopulmonary arrest: due to [place] 2. NSTEMI: s/p thrombectomy and BRIDGER to LAD 3. Acute respiratory failure: hypercapnic. Extubated 2/6 4. Cardiogenic shock: 2/2 CEA and NSTEMI 5. JUAN: improving 6. Ischemic cardiomyopathy: EF 30% 7. Left atrial thrombus: occurred while on apixaban 8. Chronic issues: depression, PAD, LBBB, HTN,lupus 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 Plan: 1. DAPT, start HIS 2. page out to cardiology about medications: carvedilol, ALIZE-/ARB, change Xa inhibitor to VKA DW family at bedside. Reviewed echo results with them. Greater than 35 minutes of which greater than 50% of the time was counseling about events, echocardiogram, cardiomyopathy, LV thrombus. Code Visit Inpatient E&M: [id number] [facility] L3
--- NOTE | 2019-07-04 12:42 | CHAPLAIN ---
Type of Pastoral Visit ___ Initial Visit _x__ Follow-up Visit ___ On-call Visit ___ General Patient Visit ___ Spiritual Assessment ___ Family Conference ___ Bereavement ___ Rapid Response ___ Code Blue ___ Other (describe below) Pastoral Care Referral From ___ Patient _x__ Family _x__ Nurse ___ Physician ___ Shank Stitcher ___ [id number] Armor Crewman ___ Other (describe below) Sacrament/Intervention _x__ Active listening ___ Anointing ___ Gnosticist ___ Bereavement ___ Communion ___ Misty exploration ___ ___ Life review _x__ Prayer ___ Reconciliation ___ Sacrament of Sick _x__ Supportive presence ___ Wedding ___ Other (describe below) Pastoral Comments patient was extubated this morning and is now alert with ability to talk and express thanks for visit and prayers; family members are in room with pt
--- NOTE | 2019-07-04 16:37 | PCM.PN.CARD ---
Subjectve: Patient seen and examined, and doing fairly well. Extubated this morning, and telemetry showed normal sinus rhythm/sinus tachycardia with left bundle branch block. EKG done this evening showed sinus tachycardia with left bundle branch block with resolution of anterior ST segment changes. Echocardiogram showed LVEF around 2-35 % with stable LV apical thrombus. Patient restarted on Eliquis after right brachial artery sheath removed this morning by [employer] staff. Patient does complain of some chest pain, although had 30 minutes of CPR as well as mechanical CPR. Objective: Vital Signs Temp Pulse Resp BP Pulse Ox 99.6 F H 108 H 20 H 126/90 H 98 07/04/19 15:00 07/04/19 15:26 07/04/19 15:26 07/04/19 15:00 07/04/19 15:00 Oxygen Flow Rate (L/min) 2 Oxygen Delivery Method Room Air Weight: 219 lb 15.988 oz Body Mass Index (BMI) 24.1 Finger Stick Blood Glucose 103 Intake and Output for Last 24 Hours 07/02/19 07/03/19 07/04/19 23:59 23:59 23:59 Intake Total 3874.48 / 3888.58 474.40 / 474.40 Output Total 2200 / 2550 650 / 650 Balance 1674.48 / 1338.58 -175.60 / -175.60 General: Awake, Alert, Oriented x 3 HEENT: PERRL, EOMI, Sclera Non Icteric Neck: Supple, Good ROM, No Lymph Node Enlargement Lungs: Clear to auscultation Cardiovascular: Regular Rhythm, Normal S1, Normal S2, No Murmurs, No Rubs, No Gallops Vascular: No Carotid Bruits, Normal Femoral Pulses, Normal Radial Pulses, Normal Dorsalis Pedal Pulse, Normal Posterior Tibial Pulses Abdomen: Bowel Sounds Present, Soft, Non Tender, No HSM, No Organomegaly Extremities: No Cyanosis, No Clubbing, No edema Neurological: No Focal Motor or Sensory Deficit 07/04/19 05:00: WBC 8.4, RBC 3.98 L, Hgb 11.1 L, Hct 35.6 L, MCV 89.4, MCH 27.9, MCHC 31.2 L, Plt Count 205, MPV 9.2, Immature Gran % (Auto) 0.400, Neut % (Auto) 61.1, Lymph % (Auto) 22.1, [place] % (Auto) 11.1 H, Eos % (Auto) 4.2, Baso % (Auto) 1.1 H, Absolute Neuts (auto) 5.1, Nucleated RBC % 0 07/04/19 05:00: Triglycerides 123, Cholesterol < 50, LDL Cholesterol TNP, VLDL Cholesterol 25, HDL Cholesterol 22 L 07/04/19 05:00: Sodium 135 L, Potassium 4.3, Chloride 108 H, Carbon Dioxide 23.0, Anion Gap 4 L, BUN 13, Creatinine 1.46 H, Est GFR (MDRD) Af Amer 65, Est GFR (MDRD) Non-Af 54 L, BUN/Creatinine Ratio 8.9 L, Glucose 101, Calcium 8.0 L, Total Bilirubin 2.70 H 07/04/19 06:46: pH 7.36, Bicarbonate Actual 19.4 L, POC Total CO2 20, Base Excess -6 L, O2 Saturation 96, ABG pCO2 34.1 L, ABG pO2 81, Georges Test NA Rhythm: EKG: ECHO: Stress Test: Cardiac Cath: PCI: CT Surgery: Holter monitor: EPS: PPM: CXR: Chest CT Scan: Medical Necessity - Tobacco Use Smoking Status: Former smoker Assessment/Plan 1. Coronary artery disease: Patient presented with sudden cardiac requiring CPR followed by mechanical CPR with eventual emergent [employer] evaluation and found to have an occluded LAD. The patient underwent emergent angioplasty and stenting of his LAD and his remaining left circumflex and RCA appear to be normal. No LV gram was performed. Subsequent echocardiogram showed severe LV dysfunction with an EF around 25 to 30% with possible LV apical thrombus. The patient has a known clotting disorder and had a CVA in March 2019. Patient had been on Xarelto previously and then subsequently changed to Eliquis which he was on at the time of his myocardial infarction. At this point I recommend he continue his baby aspirin, Brilinta, Eliquis for LV thrombus and clotting disorder. We will start him on low-dose Coreg 3.125 mg p.o. twice daily and titrate up from there. If the patient's blood pressure drops, we may require amiodarone for heart rate control and arrhythmia suppression. Once he is tolerating Coreg well, we will add Cozaar 25 mg p.o. daily or ALIZE inhibitor. In addition I recommended we begin evaluating him for possible LifeVest prior to his repeat echocardiogram. I would not recommend cardiac rehab until his LV thrombus has demonstrated resolution. Cardiac rehab may be somewhat problematic anyhow given his lower extremity prosthesis. 2. Hyperlipidemia: Continue Lipitor therapy. If 3. Recommend continuing the patient and ICU for another day until he is able to ambulate to a chair. 4. Thank you very much for the opportunity to participate in the cardiac care of your patient. Code Visit Inpatient E&M: 82211 Subs Hosp L2
[2019-07-04] MEDS: Ondansetron 4 MG/2 ML Vial IV (16:56)
[2019-07-04] MEDS: Gabapentin 800 MG Tablet PO (16:56)
[2019-07-04] MEDS: 0.9% Saline Lock 10 ML Syringe IV (16:56)
[2019-07-04 18:20] LABS: M R Staph aureus DNA By PCR Negative (Negative); Probe Check PASS; Specimen Processing Control PASS
[2019-07-04] MEDS: Carvedilol 3.125 MG TABLET PO (21:16)
[2019-07-04] MEDS: Atorvastatin Calcium 80 MG Tablet PO (21:16)
[2019-07-04] MEDS: Senna/Docusate Sodium 1 Tablet 2 TABLET PO (21:18)
[2019-07-04] MEDS: guaiFENesin 10 ML UDC (200MG/10ML) PO (23:00)
[2019-07-05] VITALS (24 sets, daily range): BP systolic 121–154; BP diastolic 71–94; PULSE 78–111; RESP 12–23; TEMP 36.2–37.3; O2SAT 91–96
[2019-07-05] MEDS: Ipratropium/Albuterol Sulfate 3 ML AMPUL.NEB INHALATION ×4 (03:14→19:29)
[2019-07-05 05:13] LABS: Absolute Neutrophil Count 4.7 X10^3/uL (2.0-7.7); Basophil# 0.05 X10^3/uL; Basophil% 0.7 % (0-1); Hematocrit 31.7 % (40-54); Hemoglobin 10.4 g/dL (13.0-16.5); Mean Corp Hgb Conc 32.8 g/dL (32-36); Mean Corpuscular Volume 88.3 fL (80-94); Mean Platelet Vol. 9.7 fl (6.2-12.0); Monocyte# 0.56 X10^3/uL; Monocyte% 7.5 % (0-10); NRBC Flagged by Analyzer 0 % (0-5); Neutrophil # 4.74 X10^3/uL (2.7-7.7); Neutrophil % 63.3 % (47-70); Platelet Count 198 K/mm3 (150-450); RBC Distribution Width CV 15.8 % (11.6-14.6); RBC Distribution Width SD 51.6 fl (35.1-43.9); Red Blood Count 3.59 M/mm3 (4.6-6.2); White Blood Count 7.5 K/mm3 (4.4-11.0)
[2019-07-05 05:26] LABS: Anion Gap 4 (5-15); BUN 11 mg/dL (7-18); BUN/Creat Ratio 7.9 RATIO (10-20); Calcium,Total 8.1 mg/dL (8.5-10.1); Chloride 107 mmol/L (98-107); Creatinine, Serum 1.39 mg/dL (0.70-1.30); EST Glomerular Filtration Rate 57 mL/min (>60); Est Glom Filt Rate - Afr Amer 69 mL/min (>60); Estimated Creatinine Clearance 67.46 ml/min; Glucose 86 mg/dL (74-106); Potassium 3.8 mmol/L (3.5-5.1); Sodium Level 136 mmol/L (136-145)
[2019-07-05] MEDS: Albuterol 2.5 MG/3 ML VIAL.NEB. INHALATION (05:30)
[2019-07-05] MEDS: HYDROcodone Bitartrate/Apap 5/325 Tablet PO ×4 (05:56→20:13)
--- NOTE | 2019-07-05 07:10 | PN_ITS ---
Subjective: Patient did well overnight. Patient continues to have complaints of chest pain and shortness of breath. Patient does report a wet cough but decreased ability to produce sputum. No allergic type reactions have been reported such as hives or lip swelling. Nursing does report patient has had issues with confusion and short-term memory overnight. Patient is redirectable. No supplemental oxygen has been required. General: Alert, Oriented x3, Cooperative, No apparent distress, - - Some difficulty with higher-order thinking. Polite and follows commands appropriately. HEENT: Atraumatic, PERRLA, EOMI, Normocephalic, - - No scleral icterus or injection noted Oral: Moist Mucosa, No Gingival or Mucosal Lesions/ Ulcerations Neck: Supple, No JVD, No Nodes, Trachea Midline Lungs: No rales, Rhonchi, Short of Breath, Wheezes - Improved with coughing, - - Symmetric expansion. Cardiovascular: Normal S1, Normal S2, No murmurs, No rub noted, No Gallop, Tachycardic Abdomen: Bowel Sounds Present, Soft, Non Tender, Non-Distended, Obese Extremities: No clubbing, No cyanosis, No edema, - - Left BKA Skin: No rashes, No breakdown Musculoskeletal: No Tenderness to Palpation of Joints or Extremities Lymphatic: No Cervical, Supraclavicular, or Inguinal Adenopathy Neurological: Cranial nerves II-XII grossly intact, Neuro grossly intact, Motor Exam 5/5 strength throughout Psych/Mental Status: Anxious, Restless Vital Signs Temp Pulse Resp BP Pulse Ox 37.3 C H 108 H 23 H 148/88 H 93 07/05/19 07:00 07/05/19 07:00 07/05/19 07:00 07/05/19 07:00 07/05/19 07:00 Oxygen Flow Rate (L/min) 2 Oxygen Delivery Method Room Air Weight: 86 kg Body Mass Index (BMI) 24.1 Finger Stick Blood Glucose 103 Intake and Output for Last 24 Hours 07/03/19 07/04/19 07/05/19 23:59 23:59 23:59 Intake Total 3874.48 / 3948.58 1494.40 / 1734.40 360 / 360 Output Total 2200 / 2550 1300 / 1800 1150 / 1150 Balance 1674.48 / 1398.58 194.40 / -65.60 -790 / -790 Labs (Last 48 Hours) 07/03/19 07/04/19 07/04/19 09:30 05:00 05:00 WBC 8.4 RBC 3.98 L Hgb 11.1 L Hct 35.6 L MCV 89.4 MCH 27.9 MCHC 31.2 L RDW Std Deviation 53.7 H RDW Coeff of Lawson 16.3 H Plt Count 205 MPV 9.2 Immature Gran % (Auto) 0.400 Neut % (Auto) 61.1 Lymph % (Auto) 22.1 [place] % (Auto) 11.1 H Eos % (Auto) 4.2 Baso % (Auto) 1.1 H Absolute Neuts (auto) 5.1 Absolute Lymphs (auto) 1.86 Nucleated RBC % 0 Specimen Type SY Sample Site pH 7.31 L Bicarbonate Actual 19.3 L POC Total CO2 20 Base Excess -7 L O2 Saturation 94 L O2 % 30 ABG pCO2 38.6 ABG pO2 77 Georges Test Respiration Rate 14 O2 Delivery Device Vent Vent Mode A-C Tidal Volume 500 POC PEEP 5 POC Pressure Suppt Blood Gas Notified Whom ICU MD Blood Gas Notified Time 947 Sodium Potassium Chloride Carbon Dioxide Anion Gap BUN Creatinine Estim Creat Clear Calc Est GFR (MDRD) Af Amer Est GFR (MDRD) Non-Af BUN/Creatinine Ratio Glucose Calcium Total Bilirubin AST ALT Alkaline Phosphatase Total Protein Albumin Globulin Albumin/Globulin Ratio Triglycerides 123 Cholesterol < 50 LDL Cholesterol TNP VLDL Cholesterol 25 HDL Cholesterol 22 L MRSA (PCR) 07/04/19 07/04/19 07/04/19 05:00 06:46 13:20 WBC RBC Hgb Hct MCV MCH MCHC RDW Std Deviation RDW Coeff of Lawson Plt Count MPV Immature Gran % (Auto) Neut % (Auto) Lymph % (Auto) [place] % (Auto) Eos % (Auto) Baso % (Auto) Absolute Neuts (auto) Absolute Lymphs (auto) Nucleated RBC % Specimen Type ART Sample Site OTHER pH 7.36 Bicarbonate Actual 19.4 L POC Total CO2 20 Base Excess -6 L O2 Saturation 96 O2 % 30 ABG pCO2 34.1 L ABG pO2 81 Georges Test NA Respiration Rate O2 Delivery Device Vent Vent Mode CPAP PS Tidal Volume POC PEEP 5 POC Pressure Suppt 5 Blood Gas Notified Whom ICU MD Blood Gas Notified Time 700 Sodium 135 L Potassium 4.3 Chloride 108 H Carbon Dioxide 23.0 Anion Gap 4 L BUN 13 Creatinine 1.46 H Estim Creat Clear Calc 68.03 Est GFR (MDRD) Af Amer 65 Est GFR (MDRD) Non-Af 54 L BUN/Creatinine Ratio 8.9 L Glucose 101 Calcium 8.0 L Total Bilirubin 2.70 H AST 122 H ALT 51 Alkaline Phosphatase 80 Total Protein 5.7 L Albumin 2.4 L Globulin 3.3 Albumin/Globulin Ratio 0.7 L Triglycerides Cholesterol LDL Cholesterol VLDL Cholesterol HDL Cholesterol MRSA (PCR) Cancelled 07/04/19 07/05/19 07/05/19 16:50 05:00 05:00 WBC 7.5 RBC 3.59 L Hgb 10.4 L Hct 31.7 L MCV 88.3 MCH 29.0 MCHC 32.8 RDW Std Deviation 51.6 H RDW Coeff of Lawson 15.8 H Plt Count 198 MPV 9.7 Immature Gran % (Auto) 0.500 Neut % (Auto) 63.3 Lymph % (Auto) 20.0 [place] % (Auto) 7.5 Eos % (Auto) 8.0 H Baso % (Auto) 0.7 Absolute Neuts (auto) 4.7 Absolute Lymphs (auto) 1.50 Nucleated RBC % 0 Specimen Type Sample Site pH Bicarbonate Actual POC Total CO2 Base Excess O2 Saturation O2 % ABG pCO2 ABG pO2 Georges Test Respiration Rate O2 Delivery Device Vent Mode Tidal Volume POC PEEP POC Pressure Suppt Blood Gas Notified Whom Blood Gas Notified Time Sodium 136 Potassium 3.8 Chloride 107 Carbon Dioxide 25.0 Anion Gap 4 L BUN 11 Creatinine 1.39 H Estim Creat Clear Calc 67.46 Est GFR (MDRD) Af Amer 69 Est GFR (MDRD) Non-Af 57 L BUN/Creatinine Ratio 7.9 L Glucose 86 Calcium 8.1 L Total Bilirubin AST ALT Alkaline Phosphatase Total Protein Albumin Globulin Albumin/Globulin Ratio Triglycerides Cholesterol LDL Cholesterol VLDL Cholesterol HDL Cholesterol MRSA (PCR) Negative Microbiology 07/03/19 06:45 Sputum, Expectorated/Coughed Gram Stain - Final 07/03/19 06:45 Sputum, Expectorated/Coughed Respiratory Culture - Preliminary Staphylococcus species Medical Necessity - Tobacco Use Smoking Status: Former smoker Assessment/Plan All Active Problems (Last Reviewed 07/03/19 @ 01:17 by Nish Peace MD) Cardiac arrest (Acute) History of left heart catheterization (LHC) (Resolved ~09/14/16) History of cardiac radiofrequency ablation (Resolved ~02/25/13) JUAN (acute kidney injury) (Resolved) Chronic osteomyelitis of left tibia (Resolved) Dermatitis (Resolved) Ischemic ulcer of right foot (Resolved) Osteomyelitis of left lower extremity (Resolved) Thrush, oral (Resolved) Ulceration of below knee amputation stump (Resolved) Wound, surgical, nonhealing (Resolved) RECOMMENDATIONS: 1. Possibly transition to doxycycline later today pending culture results 2. Add Acapella therapy 3. Increase activity as tolerated 4. Increase beta-marietta. Defer to cardiology for further optimization 5. Continue pain medications with bowel regimen 6. Okay to leave the intensive care unit from my perspective IMPRESSIONS: 1. Cardiac arrest secondary to probable ST elevation [place] Patient with urgent cardiac catheterization and found to have an LAD lesion. Patient reportedly had extensive downtime, but did have rapid CPR. Patient had a left bundle branch block at baseline, so ST elevation would be difficult to assess. Patient has had good response to therapy. Unfortunately, patient does appear to have a mural thrombus, so anticoagulation will be necessary, likely indefinitely. No bleeding complications have been reported. Decrease in H&H likely secondary to hemodilution. 2. Cardiogenic shock secondary to #1 Resolved. Patient's EF is unchanged compared to previous studies. Patient does have diastolic dysfunction with a probable left ventricular apical thrombus. Patient is now hypertensive. Will increase beta-marietta. Defer to cardiology on further blood pressure optimization 3. Acute hypercarbic respiratory failure Clinical suspicion for decreased respiratory effort secondary to #1. Patient does not have any acute infiltrates on chest x-ray. No wheezing is noted on exam, so okay to use aerosols only as needed from my perspective. Patient does have a smoking history, but no history of COPD. Patient currently growing staph, but MRSA swab was negative. Patient on meropenem right now and tolerating well despite reported penicillin allergy. Await species and sensitivity and then possible transition to doxycycline to complete a 7-day course. 4. Chronic systolic congestive heart failure/mural thrombus Patient currently is hypertensive. Patient is on systemic anticoagulation with Eliquis. Patient does not appear to have any pulmonary or lower extremity edema at this time. Beta-marietta will be increased this morning. Will defer to cardiology for further optimization. 5. Peripheral vascular disease/clotting disorder/tobacco abuse/chronic pain syndrome Complicates care, management, recovery and prognosis. Patient was co nfirmed a full code with family. Okay to receive blood products. Brachial sheath was discontinued without complication. Neurontin was reinitiated Code Visit Inpatient E&M: [id number] Subs Hosp L3
--- NOTE | 2019-07-05 10:00 | EKG12_ITS ---
Test Reason : CP/NAUSEA Blood Pressure : / mmHG Vent. Rate : 104 BPM Atrial Rate : 104 BPM P-R Int : 154 ms QRS Dur : 162 ms QT Int : 388 ms P-R-T Axes : 070 -15 131 degrees QTc Int : 510 ms Sinus tachycardia Left bundle branch block Abnormal ECG When compared with ECG of 04-JUL-2019 05:19, MANUAL COMPARISON REQUIRED, DATA IS UNCONFIRMED Confirmed by NGUYEN BUSH, NICHOL ([id number]), video editor LINDSAY SIDDIQUI ([id number]) on 07/08/2019 11:06:52 AM Referred By: Christie Tate Confirmed By:SWETHA TATE MD
[2019-07-05] MEDS: Aspirin 81 MG TAB.CHEW PO (10:06)
[2019-07-05] MEDS: TICAGRELOR 90 MG TABLET PO ×2 (10:06→21:03)
[2019-07-05] MEDS: Gabapentin 800 MG Tablet PO ×2 (10:06→17:06)
[2019-07-05] MEDS: APIXABAN 5 MG TABLET PO ×2 (10:06→21:04)
[2019-07-05] MEDS: Famotidine 20 MG Tablet GT ×2 (10:07→21:04)
[2019-07-05] MEDS: Doxycycline 100 MG CAPSULE PO ×2 (10:07→21:04)
[2019-07-05] MEDS: Carvedilol 6.25 MG Tablet PO ×2 (10:07→21:03)
--- NOTE | 2019-07-05 10:15 | PCM.PN.HOSP ---
Patient Problems: Active and Suspected Problems (Last Reviewed 07/03/19 @ 01:17 by Nsih Peace MD) Cardiac arrest (Acute) Reason for Visit: cardiac arrest Subjective: Feels good. No shortness of breath. Vitals/I&O's: Vital Signs Temp Pulse Resp BP Pulse Ox 37.3 C H 108 H 23 H 148/88 H 93 07/05/19 07:00 07/05/19 07:00 07/05/19 07:00 07/05/19 07:00 07/05/19 07:00 Oxygen Flow Rate (L/min) 2 Oxygen Delivery Method Room Air Weight: 86 kg Body Mass Index (BMI) 24.1 Finger Stick Blood Glucose 103 Intake and Output for Last 24 Hours 07/03/19 07/04/19 07/05/19 23:59 23:59 23:59 Intake Total 3874.48 / 3948.58 1494.40 / 1734.40 360 / 360 Output Total 2200 / 2550 1300 / 1800 1150 / 1150 Balance 1674.48 / 1398.58 194.40 / -65.60 -790 / -790 General: Alert, No apparent distress HEENT: Atraumatic, Normocephalic Oral: Moist Mucosa, No Gingival or Mucosal Lesions/ Ulcerations Neck: No Nodes, Thyroid Normal Size and Texture Lungs: Clear to auscultation, Normal air movement, No rhonchi, No wheeze Cardiovascular: Regular rate, Regular Rhythm, Normal S1, Normal S2 Abdomen: Bowel Sounds Present, Soft, Non Tender, Non-Distended, No Hepato-splenomegaly Extremities: No edema, No Calf Tenderness Psych/Mental Status: Normal Affect, Appropriate Microbiology Past 72 Hours 07/04/19 06:50 Swab (Method) Nasal Screen MRSA/MSSA - Final 07/03/19 14:40 Blood Culture (Wb) - Right Hand Blood Culture - Preliminary No growth in 48 hours. 07/03/19 14:00 Blood Culture (Wb) - Central Line Blood Culture - Preliminary No growth in 48 hours. 07/03/19 06:45 Sputum, Expectorated/Coughed Gram Stain - Final 07/03/19 06:45 Sputum, Expectorated/Coughed Respiratory Culture - Preliminary Staphylococcus species Laboratory Results 07/04/19 13:20: MRSA (PCR) Cancelled 07/04/19 16:50: MRSA (PCR) Negative 07/05/19 05:00: WBC 7.5, RBC 3.59 L, Hgb 10.4 L, Hct 31.7 L, MCV 88.3, MCH 29.0, MCHC 32.8, RDW Std Deviation 51.6 H, RDW Coeff of Lawson 15.8 H, Plt Count 198, MPV 9.7, Immature Gran % (Auto) 0.500, Neut % (Auto) 63.3, Lymph % (Auto) 20.0, [place] % (Auto) 7.5, Eos % (Auto) 8.0 H, Baso % (Auto) 0.7, Absolute Neuts (auto) 4.7, Absolute Lymphs (auto) 1.50, Nucleated RBC % 0 07/05/19 05:00: Sodium 136, Potassium 3.8, Chloride 107, Carbon Dioxide 25.0, Anion Gap 4 L, BUN 11, Creatinine 1.39 H, Estim Creat Clear Calc 67.46, Est GFR (MDRD) Af Amer 69, Est GFR (MDRD) Non-Af 57 L, BUN/Creatinine Ratio 7.9 L, Glucose 86, Calcium 8.1 L Current Medications Acetaminophen (Tylenol) 650 mg PO Q6H PRN PRN PRN Reason: Pain (1-10) or Fever Hydrocodone Bitart/Acetaminophen ([place] 5mg-325mg) 1 - 2 tablet PO Q4H PRN PRN PRN Reason: Pain Score 6-10/10 Last Admin: 07/05/19 10:11 Dose: 2 tablet Documented by: Albuterol Sulfate (Ventolin Aerosols) 2.5 mg INHALATION Q2H PRN PRN PRN Reason: SOB/WHEEZING Last Admin: 07/05/19 05:30 Dose: 2.5 mg Documented by: Albuterol/Ipratropium (Duoneb) 3 ml INHALATION Q4H.RT [facility] Last Admin: 07/05/19 03:14 Dose: 3 ml Documented by: Apixaban (Eliquis) 5 mg PO BID [facility] Last Admin: 07/05/19 10:06 Dose: 5 mg Documented by: Aspirin (Aspirin, Baby) 81 mg PO DAILY@0800 [facility] Last Admin: 07/05/19 10:06 Dose: 81 mg Documented by: Atorvastatin Calcium (Lipitor) 80 mg PO QHS [facility] Last Admin: 07/04/19 21:16 Dose: 80 mg Documented by: Atropine Sulfate () 0.5 mg IV UD PRN PRN Reason: HR <50 bpm Carvedilol (Coreg) 6.25 mg PO BID [facility] Last Admin: 07/05/19 10:07 Dose: 6.25 mg Documented by: Chlorhexidine Gluconate () 1 each TOPICAL DAILY [facility] Doxycycline Monohydrate (Doxycycline) 100 mg PO BID [facility] Stop: 07/09/19 22:01 Last Admin: 07/05/19 10:07 Dose: 100 mg Documented by: Famotidine (Pepcid) 20 mg GT BID [facility] Last Admin: 07/05/19 10:07 Dose: 20 mg Documented by: [facility]) [facility] Last Admin: 07/05/19 10:06 Dose: 800 mg Documented by: Glucagon () 1 mg IM .X1 PRN PRN Reason: Hypoglycemia Guaifenesin (Robitussin) 10 ml PO Q4H PRN PRN PRN Reason: COUGH Last Admin: 07/04/19 23:00 Dose: 10 ml Documented by: Heparin Sodium (Beef Lung) (Heparin 500 Unit/5 Ml (100/Ml)) 500 unit IV UD PRN PRN Reason: HEPARIN FLUSH Sodium Chloride () 250 mls @ 15 mls/hr IV .[id number] PRN PRN Reason: Saline Flush Sodium Chloride () 250 mls @ 15 mls/hr IV .[id number] PRN PRN Reason: Additional IVPB Infusion Sodium Chloride () 1,000 mls @ 1 mls/hr IV .Q48H PRN PRN Reason: Saline Flush Dextrose (Dextrose 10%-Water) 250 mls @ 999 mls/hr IV .Q16M PRN; Protocol PRN Reason: HYPOGLYCEMIA Labetalol HCl (Trandate) 5 mg IV X1 PRN PRN Reason: SBP > 160 WHEN PULLING SHEATH Ondansetron HCl (Zofran) 4 mg IV Q6H PRN PRN PRN Reason: NAUSEA/VOMITING Last Admin: 07/04/19 16:56 Dose: 4 mg Documented by: Polyethylene Glycol (Miralax) 17 gm PO DAILY PRN PRN Reason: CONSTIPATION Senna/Docusate Sodium (Senokot-S, Ami-Colace) 2 tablet PO BID [facility] Last Admin: 07/04/19 21:18 Dose: 2 tablet Documented by: Sodium Chloride () 500 ml IV BOLUS PRN PRN Reason: VASO-VAGAL PROTOCOL Sodium Chloride () 10 - 40 ml IV UD PRN PRN Reason: SALINE FLUSH Last Admin: 07/04/19 16:56 Dose: 10 ml Documented by: Ticagrelor (Brilinta) 90 mg PO BID [facility] Last Admin: 07/05/19 10:06 Dose: 90 mg Documented by: STROKE Vital Signs/Narrative: Vital Signs Temp Pulse Resp BP Pulse Ox 07/05/19 07:00 37.3 C H 108 H 23 H 148/88 H 93 Medical Necessity - Tobacco Use Smoking Status: Former smoker Assessment/Plan All Active Problems (Last Reviewed 07/03/19 @ 01:17 by Nish Peace MD) Cardiac arrest (Acute) History of left heart catheterization (LHC) (Resolved ~09/14/16) History of cardiac radiofrequency ablation (Resolved ~02/25/13) JUAN (acute kidney injury) (Resolved) Chronic osteomyelitis of left tibia (Resolved) Dermatitis (Resolved) Ischemic ulcer of right foot (Resolved) Osteomyelitis of left lower extremity (Resolved) Thrush, oral (Resolved) Ulceration of below knee amputation stump (Resolved) Wound, surgical, nonhealing (Resolved) Assessment 1. cardiopulmonary arrest: due to [place] 2. NSTEMI: s/p thrombectomy and BRIDGER to LAD 3. Acute respiratory failure: hypercapnic. Extubated 2/6 4. Cardiogenic shock: 2/2 CEA and NSTEMI 5. JUAN: improving 6. Ischemic cardiomyopathy: EF 30% 7. Left atrial thrombus: occurred while on apixaban 8. Chronic issues: depression, PAD, LBBB, HTN,lupus 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 Plan: 1. DAPT, start HIS 2. on carvedilol 3. Patient may not have been taking epixaban as prescribed, so, it is unclear if treatment failure. Will defer to cardiology if to continue or change to VKA. 4. TF to PCU 5. May need LifeVest 6. VTE prophylaxis not indicated as he is already anticoagulated. DW family at bedside. Code Visit Inpatient E&M: 41911 Subs Hosp L2
--- NOTE | 2019-07-05 10:20 | CASEMGMT ---
Addendum entered by Quinten Lea 07/05/19 11:50: Brilinta savings card given to daughter and explained to daughter and pt. Addendum entered by Quinten Lea 07/05/19 11:43: Call received from JULES Gonzalez. Recommendation is for Home with continuing of Outpt Therapy he was already active with. Mio ASTORGA Original Note: RN CM Note. Participated in Interdisciplinary rounds. Discussed with patient re: PT/oT evaluations today and possible recommendations including HHC or SNF on dc. Pt states he would like to go home if possible. HHC agencies [facility] with [place] ([facility] prefix) are listed as [facility] in [place] and [facility] in [place]. Call to Mellisa with [facility] to see if they are [facility]. -Awaiting PT/OT evaluations and recommendations for needs on dc. Mio LARKINM
[2019-07-05] MEDS: Senna/Docusate Sodium 1 Tablet 2 TABLET PO ×2 (14:42→21:04)
[2019-07-05] MEDS: Lisinopril 2.5 MG Tablet PO (17:06)
[2019-07-05] MEDS: Atorvastatin Calcium 80 MG Tablet PO (21:04)
--- NOTE | 2019-07-05 22:23 | CL.I_ITS ---
Patient Name: JANIE CHIN Study Date: 07/03/2019 Performing: Harry Tate MD Ht: 72.05 inches 183 cm : 1965 Wt: 220.46 lbs 100 kg Age: 53 Gender: male BSA: 2.22 PROCEDURE(S) PERFORMED HU75-CTV/COR/LV NWC20-IB GUIDED ACCESS [id number] W OR WO PTCA, SINGLE CORONARY ARTERY CLINICAL PROFILE AND CO-MORBIDITIES Indications: ACS <= 24 hrs Heart Failure: None Stress/Imaging Stress/Image Study Performed: No CAD Presentations: Other: Cardiac arrest. EKG not meeting criteria for STEMI CONCLUSIONS Single vessel CAD. Successful thrombectomy and BRIDGER to pLAD. Difficult access as the R EIA was occlude d and R radial pulse was non palpable. RECOMMENDATIONS ASA Indefinitley Brilinta for at least 12 months Follow up with primary bee producer DESCRIPTION OF PROCEDURE The patient arrived to the procedure lab. The risks and benefits of the procedure as well as a full d escription of our services here and lack of surgical backup were fully explained to the patient and/o r their significant other prior to the catheterization. The Timeout was completed, verifying the romain ect patient and procedure. The patient's procedural site was prepped and draped in the usual fashion. Local anesthetic was given subcutaneously to right groin region with Lidocaine 2%. Local anesthetic was given subcutaneously to right radial region with Lidocaine 2%. Local anesthetic was given subcuta neously to right brachial region with Lidocaine 2%. Using a modified Seldinger technique, arterial ac cess was obtained via the right brachial artery, a 6Fr sheath was inserted.. Left Coronary Artery se lective angiography was performed in multiple views using a 5 Fr. JL3.5 catheter. Right Coronary [place] ry selective angiography was then performed in multiple views using a 5 Fr. JR 4 catheter. LV to AO pullback pressures were then recordedThe images were reviewed and options discussed. A decis ion was then made to proceed with an Intervention, IVUS or other adjunct procedure. XB 3 Guide catheter was inserted and engaged into the LCA. Runthrough Guide wire was advanced to the LAD. [place] AP inserted Pass # 1 [place] AP Removed 2.5 x 20 Emerge Balloon catheter was inserted. PTCA balloon inflated at 10 atms for 6 secs. 3.5 x 32 Drug Eluting stent was advanced across the les ion in the LAD, proximal. Angiogram performed post stent deployment. The arterial sheath was suture d in place with heparinized normal saline under pressure CORONARY ANGIOGRAPHY DOMINANCE: Right Dominant LEFT HEART ASSESSMENT Left Ventricular Ejection Fraction: Not assessed LEFT MAIN: Angiographically normal LEFT ANTERIOR DESCENDING ARTERY: PROX LAD: 100 % Stenosis CIRCUMFLEX ARTERY: Mild luminal irregularities RIGHT CORONARY ARTERY: Mild luminal irregularities VALVE FINDINGS: No Aortic Valve Stenosis INTERVENTION INFORMATION LESION SITE: LAD (Proximal) Lesion Complexity: High/C, Lesion Complexity: High/C, chronic total occlusion: No, lesion at bifurcat ion: No, thrombus present: Yes, lesion length: 30 mm, culprit lesion: Yes Pre Stenosis: 100 % Pre intervention YOSELIN flow: 0 PROCEDURE: Thrombectomy, Drug Eluting Stent with pre dilatation. Post Stenosis: 0 % Post intervention YOSELIN flow: 3 Lesion Devices: BrandShield 6 Fr XB3.0 100cm Guide Catheter [employer] 6 Fr. [place] AP Aspiration Catheter Dimitri Sci EMERGE MR 2.50x20 BALLOON Dimitri Sci Synergy MR BRIDGER 3.50x32 COMPLICATIONS No Complications PROCEDURE MEDICATIONS Fentanyl 50 mcg IV Oxygen: 100 % FiO2 via ventilator. See Resp Record for Settings Nitro 200 mcg IC 07/03/2019 01:46:08 SUMMARY OF HEMODYNAMIC DATA Time AIR REST ECG 00:55:33 AO 80/62 (69) SA 01:48:32 LV 124/14, 43 01:55:19 LV 120/11, 30 01:55:25 LVp 134/23, 37 01:55:39 AOp 122/80 (96) 01:55:44 Signed By Harry Tate MD On 07/08/2019 07:44:13 Harry Tate MD
[2019-07-06] VITALS (15 sets, daily range): BP systolic 132–149; BP diastolic 76–96; PULSE 85–113; RESP 12–20; TEMP 36.3–36.8; O2SAT 92–97
[2019-07-06] MEDS: HYDROcodone Bitartrate/Apap 5/325 Tablet PO ×4 (01:19→20:13)
[2019-07-06] MEDS: Ipratropium/Albuterol Sulfate 3 ML AMPUL.NEB INHALATION ×5 (03:55→23:03)
--- NOTE | 2019-07-06 07:19 | PN_ITS ---
Subjective: Patient did well overnight. No acute issues were reported. Patient has been maintained on room air. Patient continues to report a wet cough with intermittent production secondary to chest pain. As an aside, patient did not have a cardiac intervention yesterday. Note was entered late by Dr. Tate. Patient's chest pain is not changed and vascular access was removed without complication. General: Alert, Oriented x3, Cooperative, No apparent distress, - - Appears improved and more complex recall. HEENT: Atraumatic, PERRLA, EOMI, Normocephalic, - - No scleral icterus or injection noted Oral: Moist Mucosa, No Gingival or Mucosal Lesions/ Ulcerations Neck: Supple, No JVD, No Nodes, Trachea Midline Lungs: No wheeze, No rales, Diminished, Rhonchi - Improved with coughing Cardiovascular: Regular rate, Regular Rhythm, Normal S1, Normal S2, No murmurs, No rub noted, No Gallop Abdomen: Bowel Sounds Present, Soft, Non Tender, Non-Distended Extremities: No clubbing, No cyanosis, No edema, Capillary Refill Less than 3 Seconds Skin: No rashes, No breakdown Musculoskeletal: No Tenderness to Palpation of Joints or Extremities Lymphatic: No Cervical, Supraclavicular, or Inguinal Adenopathy Neurological: Cranial nerves II-XII grossly intact, Neuro grossly intact, Motor Exam 5/5 strength throughout Psych/Mental Status: Alert and oriented to time, place, person, mood and affect Vital Signs Temp Pulse Resp BP Pulse Ox 36.5 C L 109 H 16 147/82 H 96 07/06/19 02:59 07/06/19 04:00 07/06/19 03:55 07/06/19 02:59 07/06/19 02:59 Oxygen Flow Rate (L/min) 2 Oxygen Delivery Method Room Air Weight: 86 kg Body Mass Index (BMI) 24.1 Finger Stick Blood Glucose 103 Intake and Output for Last 24 Hours 07/04/19 07/05/19 07/06/19 23:59 23:59 23:59 Intake Total 1494.40 / 1734.40 1860 / 1860 480 / 480 Output Total 1300 / 1800 2625 / 2625 450 / 450 Balance 194.40 / -65.60 -765 / -765 30 / 30 Labs (Last 48 Hours) 07/04/19 07/04/19 07/05/19 13:20 16:50 05:00 WBC 7.5 RBC 3.59 L Hgb 10.4 L Hct 31.7 L MCV 88.3 MCH 29.0 MCHC 32.8 RDW Std Deviation 51.6 H RDW Coeff of Lawson 15.8 H Plt Count 198 MPV 9.7 Immature Gran % (Auto) 0.500 Neut % (Auto) 63.3 Lymph % (Auto) 20.0 [place] % (Auto) 7.5 Eos % (Auto) 8.0 H Baso % (Auto) 0.7 Absolute Neuts (auto) 4.7 Absolute Lymphs (auto) 1.50 Nucleated RBC % 0 Sodium Potassium Chloride Carbon Dioxide Anion Gap BUN Creatinine Estim Creat Clear Calc Est GFR (MDRD) Af Amer Est GFR (MDRD) Non-Af BUN/Creatinine Ratio Glucose Calcium MRSA (PCR) Cancelled Negative 07/05/19 05:00 WBC RBC Hgb Hct MCV MCH MCHC RDW Std Deviation RDW Coeff of Lawson Plt Count MPV Immature Gran % (Auto) Neut % (Auto) Lymph % (Auto) [place] % (Auto) Eos % (Auto) Baso % (Auto) Absolute Neuts (auto) Absolute Lymphs (auto) Nucleated RBC % Sodium 136 Potassium 3.8 Chloride 107 Carbon Dioxide 25.0 Anion Gap 4 L BUN 11 Creatinine 1.39 H Estim Creat Clear Calc 67.46 Est GFR (MDRD) Af Amer 69 Est GFR (MDRD) Non-Af 57 L BUN/Creatinine Ratio 7.9 L Glucose 86 Calcium 8.1 L MRSA (PCR) Microbiology 07/03/19 06:45 Sputum, Expectorated/Coughed Gram Stain - Final 07/03/19 06:45 Sputum, Expectorated/Coughed Respiratory Culture - Final Staphylococcus aureus 07/03/19 13:50 Urine Catheter - Grace Urine Culture - Final Culture exhibits no growth. 07/04/19 06:50 Swab (Method) Nasal Screen MRSA/MSSA - Final 07/03/19 14:40 Blood Culture (Wb) - Right Hand Blood Culture - Preliminary No growth in 48 hours. 07/03/19 14:00 Blood Culture (Wb) - Central Line Blood Culture - Preliminary No growth in 48 hours. Medical Necessity - Tobacco Use Smoking Status: Former smoker Assessment/Plan All Active Problems (Last Reviewed 07/03/19 @ 01:17 by Nish Peace MD) Cardiac arrest (Acute) History of left heart catheterization (LHC) (Resolved ~09/14/16) History of cardiac radiofrequency ablation (Resolved ~02/25/13) JUAN (acute kidney injury) (Resolved) Chronic osteomyelitis of left tibia (Resolved) Dermatitis (Resolved) Ischemic ulcer of right foot (Resolved) Osteomyelitis of left lower extremity (Resolved) Thrush, oral (Resolved) Ulceration of below knee amputation stump (Resolved) Wound, surgical, nonhealing (Resolved) RECOMMENDATIONS: 1. Complete course of doxycycline 2. Continue incentive spirometer and Acapella therapy until back to baseline 3. Increase activity as tolerated 4. Increase beta-marietta. Defer to cardiology for further optimization 5. Continue pain medications with bowel regimen 6. Hemodynamically stable on room air. Will sign off from a critical care perspective IMPRESSIONS: 1. Cardiac arrest secondary to probable ST elevation [place] Patient with urgent cardiac catheterization and found to have an LAD lesion. Patient reportedly had extensive downtime, but did have rapid CPR. Patient had a left bundle branch block at baseline, so ST elevation would be difficult to assess. Patient has had good response to therapy. Unfortunately, patient does appear to have a mural thrombus, so anticoagulation will be necessary, likely indefinitely. No bleeding complications have been reported. Decrease in H&H likely secondary to hemodilution, not hemorrhage. 2. Cardiogenic shock secondary to #1 Resolved. Patient's EF is unchanged compared to previous studies. Patient does have diastolic dysfunction with a probable left ventricular apical thrombus. Patient is now hypertensive. Will increase beta-marietta. Defer to cardiology on further blood pressure optimization 3. Acute hypercarbic respiratory failure Clinical suspicion for decreased respiratory effort secondary to #1. Patient does not have any acute infiltrates on chest x-ray. Decrease aerosol therapy. Patient does have a smoking history, but no history of COPD. Patient currently growing staph, but MRSA swab was negative. Patient transition to doxycycline yesterday. Patient should complete a 7-day course of antibiotics. Stressed to the patient the importance of using pulmonary toileting techniques to avoid future complications. 4. Chronic systolic congestive heart failure/mural thrombus Patient currently is hypertensive. Patient is on systemic anticoagulation with Eliquis. Patient does not appear to have any pulmonary or lower extremity edema at this time. Beta-marietta will be increased this morning. Will defer to cardiology for further optimization. 5. Peripheral vascular disease/clotting disorder/tobacco abuse/chronic pain syndrome Complicates care, management, recovery and prognosis. Patient was confirmed a full code with family. Okay to receive blood products. Brachial sheath was discontinued without complication. Neurontin was reinitiated Code Visit Inpatient E&M: 23567 Subs Hosp L2
[2019-07-06] MEDS: Doxycycline 100 MG CAPSULE PO ×2 (09:32→20:16)
[2019-07-06] MEDS: Senna/Docusate Sodium 1 Tablet 2 TABLET PO ×2 (09:32→20:15)
[2019-07-06] MEDS: Aspirin 81 MG TAB.CHEW PO (09:33)
[2019-07-06] MEDS: Famotidine 20 MG Tablet GT ×2 (09:33→20:16)
[2019-07-06] MEDS: TICAGRELOR 90 MG TABLET PO ×2 (09:33→20:16)
[2019-07-06] MEDS: Gabapentin 800 MG Tablet PO ×2 (09:33→16:18)
[2019-07-06] MEDS: Carvedilol 12.5 MG Tablet PO ×2 (09:34→20:16)
[2019-07-06] MEDS: APIXABAN 5 MG TABLET PO ×2 (09:34→20:16)
[2019-07-06] MEDS: Lisinopril 2.5 MG Tablet PO (09:35)
--- NOTE | 2019-07-06 12:33 | PCM.PN.HOSP ---
Patient Problems: Active and Suspected Problems (Last Reviewed 07/03/19 @ 01:17 by Nish Peace MD) Cardiac arrest (Acute) Reason for Visit: CPA Subjective: Feels fine. Woke up this am, disoriented. Vitals/I&O's: Vital Signs Temp Pulse Resp BP Pulse Ox 36.8 C 105 H 18 132/89 H 95 07/06/19 09:31 07/06/19 09:31 07/06/19 09:31 07/06/19 09:31 07/06/19 09:31 Oxygen Flow Rate (L/min) 2 Oxygen Delivery Method Room Air Weight: 86 kg Body Mass Index (BMI) 24.1 Finger Stick Blood Glucose 103 Intake and Output for Last 24 Hours 07/04/19 07/05/19 07/06/19 23:59 23:59 23:59 Intake Total 1494.40 / 1734.40 1860 / 1860 480 / 480 Output Total 1300 / 1800 2625 / 2625 1500 / 1500 Balance 194.40 / -65.60 -765 / -765 -1020 / -1020 General: Alert, No apparent distress HEENT: Atraumatic, Normocephalic Oral: Moist Mucosa, No Gingival or Mucosal Lesions/ Ulcerations Neck: No Nodes, Trachea Midline Lungs: Clear to auscultation, Normal air movement, No rhonchi, No wheeze, No rales Cardiovascular: Regular rate, Regular Rhythm, Normal S1, Normal S2 Abdomen: Bowel Sounds Present, Soft, Non Tender, Non-Distended, No Hepato-splenomegaly Extremities: No edema, No Calf Tenderness Psych/Mental Status: Normal Affect, Appropriate Microbiology Past 72 Hours 07/03/19 06:45 Sputum, Expectorated/Coughed Gram Stain - Final 07/03/19 06:45 Sputum, Expectorated/Coughed Respiratory Culture - Final Staphylococcus aureus 07/03/19 13:50 Urine Catheter - Grace Urine Culture - Final Culture exhibits no growth. 07/04/19 06:50 Swab (Method) Nasal Screen MRSA/MSSA - Final 07/03/19 14:40 Blood Culture (Wb) - Right Hand Blood Culture - Preliminary No growth in 48 hours. 07/03/19 14:00 Blood Culture (Wb) - Central Line Blood Culture - Preliminary No growth in 48 hours. Current Medications Acetaminophen (Tylenol) 650 mg PO Q6H PRN PRN PRN Reason: Pain (1-10) or Fever Hydrocodone Bitart/Acetaminophen ([place] 5mg-325mg) 1 - 2 tablet PO Q4H PRN PRN PRN Reason: Pain Score 6-10/10 Last Admin: 07/06/19 10:43 Dose: 2 tablet Documented by: Albuterol Sulfate (Ventolin Aerosols) 2.5 mg INHALATION Q2H PRN PRN PRN Reason: SOB/WHEEZING Last Admin: 07/05/19 05:30 Dose: 2.5 mg Documented by: Albuterol/Ipratropium (Duoneb) 3 ml INHALATION Q6HWA.RT [facility] Apixaban (Eliquis) 5 mg PO BID [facility] Last Admin: 07/06/19 09:34 Dose: 5 mg Documented by: Aspirin (Aspirin, Baby) 81 mg PO DAILY@0800 [facility] Last Admin: 07/06/19 09:33 Dose: 81 mg Documented by: Atorvastatin Calcium (Lipitor) 80 mg PO QHS [facility] Last Admin: 07/05/19 21:04 Dose: 80 mg Documented by: Atropine Sulfate () 0.5 mg IV UD PRN PRN Reason: HR <50 bpm Carvedilol (Coreg) 12.5 mg PO BID [facility] Last Admin: 07/06/19 09:34 Dose: 12.5 mg Documented by: Doxycycline Monohydrate (Doxycycline) 100 mg PO BID [facility] Stop: 07/09/19 22:01 Last Admin: 07/06/19 09:32 Dose: 100 mg Documented by: Famotidine (Pepcid) 20 mg GT BID [facility] Last Admin: 07/06/19 09:33 Dose: 20 mg Documented by: [facility] Last Admin: 07/06/19 09:33 Dose: 800 mg Documented by: Glucagon () 1 mg IM .X1 PRN PRN Reason: Hypoglycemia Guaifenesin (Robitussin) 10 ml PO Q4H PRN PRN PRN Reason: COUGH Last Admin: 07/04/19 23:00 Dose: 10 ml Documented by: Heparin Sodium (Beef Lung) (Heparin 500 Unit/5 Ml (100/Ml)) 500 unit IV UD PRN PRN Reason: HEPARIN FLUSH Sodium Chloride () 250 mls @ 15 mls/hr IV .[id number] PRN PRN Reason: Saline Flush Sodium Chloride () 250 mls @ 15 mls/hr IV .[id number] PRN PRN Reason: Additional IVPB Infusion Sodium Chloride () 1,000 mls @ 1 mls/hr IV .Q48H PRN PRN Reason: Saline Flush Dextrose (Dextrose 10%-Water) 250 mls @ 999 mls/hr IV .Q16M PRN; Protocol PRN Reason: HYPOGLYCEMIA Labetalol HCl (Trandate) 5 mg IV X1 PRN PRN Reason: SBP > 160 WHEN PULLING SHEATH Lisinopril (Zestril) 2.5 mg PO DAILY [facility] Last Admin: 07/06/19 09:35 Dose: 2.5 mg Documented by: Ondansetron HCl (Zofran) 4 mg IV Q6H PRN PRN PRN Reason: NAUSEA/VOMITING Last Admin: 07/04/19 16:56 Dose: 4 mg Documented by: Polyethylene Glycol (Miralax) 17 gm PO DAILY PRN PRN Reason: CONSTIPATION Senna/Docusate Sodium (Senokot-S, Mai-Colace) 2 tablet PO BID [facility] Last Admin: 07/06/19 09:32 Dose: 2 tablet Documented by: Sodium Chloride () 10 - 40 ml IV UD PRN PRN Reason: SALINE FLUSH Last Admin: 07/04/19 16:56 Dose: 10 ml Documented by: Ticagrelor (Brilinta) 90 mg PO BID [facility] Last Admin: 07/06/19 09:33 Dose: 90 mg Documented by: STROKE Vital Signs/Narrative: Vital Signs Temp Pulse Resp BP Pulse Ox 07/06/19 09:31 36.8 C 105 H 18 132/89 H 95 07/06/19 09:30 103 H Medical Necessity - Tobacco Use Smoking Status: Former smoker Assessment/Plan All Active Problems (Last Reviewed 07/03/19 @ 01:17 by Nish Peace MD) Cardiac arrest (Acute) History of left heart catheterization (LHC) (Resolved ~09/14/16) History of cardiac radiofrequency ablation (Resolved ~02/25/13) JUAN (acute kidney injury) (Resolved) Chronic osteomyelitis of left tibia (Resolved) Dermatitis (Resolved) Ischemic ulcer of right foot (Resolved) Osteomyelitis of left lower extremity (Resolved) Thrush, oral (Resolved) Ulceration of below knee amputation stump (Resolved) Wound, surgical, nonhealing (Resolved) Assessment 1. cardiopulmonary arrest: due to [place]ors[place] 2. NSTEMI: s/p thrombectomy and BRIDGER to LAD 3. Acute respiratory failure: hypercapnic. Extubated 07/04 4. Cardiogenic shock: 2/2 CEA and NSTEMI 5. JUAN: improving 6. Ischemic cardiomyopathy: EF 30% 7. Left atrial thrombus: occurred while on apixaban 8. Chronic issues: depression, PAD, LBBB, HTN,lupus 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 Plan: 1. DAPT, start HIS 2. on carvedilol 3. Patient may not have been taking epixaban as prescribed, so, it is unclear if treatment failure. Will defer to cardiology if to continue or change to VKA. 4. TF to PCU 5. May need LifeVest 6. VTE prophylaxis not indicated as he is already anticoagulated. 7. Disposition to home with outpt PT when ok with cardiology. DW family at bedside. Code Visit Inpatient E&M: 45937 Subs Hosp L2
[2019-07-06] MEDS: guaiFENesin 10 ML UDC (200MG/10ML) PO (20:14)
[2019-07-06] MEDS: Atorvastatin Calcium 80 MG Tablet PO (20:16)
[2019-07-07] VITALS (9 sets, daily range): BP systolic 128–140; BP diastolic 69–89; PULSE 71–104; RESP 18–20; TEMP 36.6–37.1; O2SAT 95–98
--- NOTE | 2019-07-07 01:45 | NURSING ---
Patient pulled most of central line dressing loose. Changed dressing at this time.
[2019-07-07] MEDS: HYDROcodone Bitartrate/Apap 5/325 Tablet PO (06:59)
[2019-07-07] MEDS: Ipratropium/Albuterol Sulfate 3 ML AMPUL.NEB INHALATION (07:10)
[2019-07-07] MEDS: Acetaminophen 325 MG Tablet 650 MG PO (07:51)
[2019-07-07] MEDS: Gabapentin 800 MG Tablet PO (09:15)
[2019-07-07] MEDS: Carvedilol 12.5 MG Tablet PO (09:15)
[2019-07-07] MEDS: TICAGRELOR 90 MG TABLET PO (09:15)
[2019-07-07] MEDS: Senna/Docusate Sodium 1 Tablet 2 TABLET PO (09:15)
[2019-07-07] MEDS: Aspirin 81 MG TAB.CHEW PO (09:15)
[2019-07-07] MEDS: APIXABAN 5 MG TABLET PO (09:15)
[2019-07-07] MEDS: Lisinopril 2.5 MG Tablet PO (09:16)
[2019-07-07] MEDS: Famotidine 20 MG Tablet GT (09:16)
[2019-07-07] MEDS: Doxycycline 100 MG CAPSULE PO (09:16)
--- NOTE | 2019-07-07 09:40 | PCM.PN.CARD ---
Subjectve: This note is for visit done on 07/06/2019 Patient is doing well from a cardiac standpoint. He denies any cardiac complaints at this time. He does have chest wall tenderness from his CPR. Objective: Vital Signs Temp Pulse Resp BP Pulse Ox 97.8 F 87 18 128/69 H 95 07/07/19 09:13 07/07/19 09:13 07/07/19 09:13 07/07/19 09:13 07/07/19 09:13 Oxygen Flow Rate (L/min) 2 Oxygen Delivery Method Room Air Weight: 189 lb 9.561 oz Body Mass Index (BMI) 24.1 Finger Stick Blood Glucose 103 Intake and Output for Last 24 Hours 07/05/19 07/06/19 07/07/19 23:59 23:59 23:59 Intake Total 1860 / 1860 480 / 720 240 / 240 Output Total 2625 / 2625 1500 / 2150 650 / 650 Balance -765 / -765 -1020 / -1430 -410 / -410 General: Awake, Alert, Oriented x 3 HEENT: Atraumatic Oral: Moist Mucosa Neck: Supple Lungs: Clear to auscultation Cardiovascular: Normal S1, Normal S2 Abdomen: Soft Skin: No Rashes Psych/Mental Status: Appropriate Rhythm: EKG: ECHO: Stress Test: Cardiac Cath: PCI: CT Surgery: Holter monitor: EPS: PPM: CXR: Chest CT Scan: Medical Necessity - Tobacco Use Smoking Status: Former smoker Assessment/Plan 1. Cardiac arrest: Due to torsades (by history, strips were not available for me to see) secondary to acute SD. The EKGs were reviewed again and while there was some suspicion for STEMI, the EKGs did not technically meet criteria for STEMI. Patient was treated with thrombectomy and drug-eluting stent placement to the LAD. Please keep the patient on triple therapy at this time. 2. LV systolic dysfunction: Continue Coreg and lisinopril. Patient's cardiac arrest was in the setting of an acute SD. He has not had significant sustained ventricular arrhythmias during his hospital stay. It will be reasonable to discharge him without LifeVest at this time. 3. LV apical thrombus: It appears that patient was not taking his Eliquis as prescribed. It will be reasonable to keep him on Eliquis for now.
--- NOTE | 2019-07-07 11:13 | NURSING ---
Central line dc'd per orders. Tip intact. Pressure held for 5minutes, Vaseline gauze with 2x2 over top and secured with tegaderm. Instructed to lay flat for 30 minutes.
--- NOTE | 2019-07-07 11:29 | DCINST_ITS ---
- Discharge Diagnoses Current Active Problems: Current Active and Chronic Problems (Last Reviewed 07/03/19 @ 01:17 by Nish Peace MD) Cardiac arrest (Acute) You will use the following diet at home:: Cardiac Your food should be the consistency of: Regular Your liquids should be the consistency of: Regular/Thin Discharge Activity: Return to Normal Activity Allergies/Adverse Reactions: Allergies Penicillins Allergy (Verified 07/03/19 00:38) Swelling adhesive tape Adverse Reaction (Verified 07/03/19 00:38) Rash oxycodone [From OxyContin] Adverse Reaction (Verified 07/03/19 00:38) Other it makes me go nuts Medications to take at Discharge Apixaban [Eliquis] 5 mg PO BID 04/23/19 Acetaminophen [Tylenol Tablet] 650 mg PO Q4H PRN PRN tab 04/29/19 gabapentin 800 mg tablet 800 mg PO BID #60 tab 05/23/19 Aspirin [Aspirin, Baby] 81 mg PO DAILY@0800 tab.chew 07/07/19 Atorvastatin Calcium [Lipitor] 80 mg PO QHS #30 tab 07/07/19 Carvedilol [Coreg (Beta Fco)] 12.5 mg PO BID #60 tab 07/07/19 Doxycycline 100 mg PO BID #9 cap 07/07/19 Lisinopril [Zestril] 2.5 mg PO DAILY #30 tab 07/07/19 Ticagrelor [Brilinta] 90 mg PO BID #60 tab 07/07/19 The following prescriptions were given: Ticagrelor [Brilinta] 90 mg PO BID #60 tab Transmission Status: Pending to [id number] Carvedilol [Coreg (Beta Fco)] 12.5 mg PO BID #60 tab Transmission Status: Pending to [id number] Doxycycline 100 mg PO BID #9 cap Transmission Status: Pending to [facility][id number] Atorvastatin Calcium [Lipitor] 80 mg PO QHS #30 tab Transmission Status: Pending to [id number] Lisinopril [Zestril] 2.5 mg PO DAILY #30 tab Transmission Status: Pending to [id number] Primary Care Physician: Dharmesh Alonso MD [Primary Care Provider] - Please follow up with your Primary Care Physician in: 1-2 weeks Test Results: Test results from this visit will be discussed in further detail at your follow- up appointment, if applicable. Please Follow Up With: Christie Tate MD When: as directed Proposed Discharge Date: 07/07/19
--- NOTE | 2019-07-07 13:07 | DS.PCM_ITS ---
<Francesco Elias - Last Filed: 07/07/19 13:07> Discharge Date and Diagnosis Date of Admission: 07/03/19 Date of Discharge: 07/07/19 - Primary Discharge Diagnosis NSTEMI Cardiac arrest 2/2 torsades LV apical thrombus Acute hypoxic rspiratory failure Cardiogenic shock JUAN Ischemic CM - Secondary Discharge Diagnosis Chronic Problems (Last Reviewed 07/03/19 @ 01:17 by Nish Peace MD) Chronic renal failure, stage 2 (mild) (Chronic) Depression (Chronic) History of carotid endarterectomy (Chronic) 04/22/19 at [facility] History of ischemic left MCA stroke (Chronic) 04/17/19 Debility (Chronic) due to L MCA stroke 04/17/19 Normochromic normocytic anemia (Chronic) LBBB (left bundle branch block) (Chronic) Dilated cardiomyopathy (Chronic) 27% EF on ECHO 02/18/19........non-ischemic. 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) Patient is on Coumadin for PE Peripheral arterial disease (Chronic) BL LE's....multiple stents in both legs Hypercoagulable state (Chronic) Positive lupus 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, positive anticardiolipin anti B IgM, and increased homocystine level Hospital Course and Treatment Imaging Results: DIAGNOSTICS: Left heart cath: CORONARY ANGIOGRAPHY DOMINANCE: Right Dominant LEFT HEART ASSESSMENT Left Ventricular Ejection Fraction: Not assessed LEFT MAIN: Angiographically normal LEFT ANTERIOR DESCENDING ARTERY: PROX LAD: 100 % Stenosis CIRCUMFLEX ARTERY: Mild luminal irregularities RIGHT CORONARY ARTERY: Mild luminal irregularities VALVE FINDINGS: No Aortic Valve Stenosis RAD/Chest 1 View (Portable) IMPRESSION: 1. The endotracheal tube and enteric tube appear in satisfactory position. 2. Gaseous overdistention of the stomach. 3. Left basilar atelectasis or infiltrate. Echo: Interpretation Summary The study was technically difficult. Diluted definity 3ml given slow IV push to enhance endocardial definition. There is evidence of diastolic dysfunction. Severe hypokinesis of the anterior wall, septum and apex. The estimated ejection fraction is 30-35 %. Trivial tricuspid valve insufficiency. There appears to be LV apical thrombus The study was technically difficult. RAD/Chest 1 View (Portable) IMPRESSION: Interval placement of left internal jugular deep venous line with tip of the catheter overlying the junction of the right atrium and screw vena cava with no pneumothorax. Consults: Cardiology - [place] Pulmonology - Anish Operations: None Procedures: 2-D Echocardiogram, Cardiac catheterization Summary of Care Provided: Hospital Course: The patient is a 53 year old M with pmhx of lupus 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, systolic CHF, ischemic CM, prior smoker, old LBBB, left BKA 2/2 arterial thrombus who presented to the ER with cardiac arrest. EMS responded to a call for unresponsive patient, reported torsades, defibrillated 3 times and gave 3 roundsof epi and magnesium. He was intubated in the ER. 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 He had 100% stenosis of the proximal LAD. He underwent thrombectomy, and BRIDGER placement. He went to the ICU on pressors. Echo showed decreased EF and LV apical thrombus. He was extubated on 07/04/2019. Respiratory culture grew MRSA so he was placed on Doxy and will complete a 7 day course. He was transitioned to the PCU and remained stable. He was discharged home in stable condition on eliquis, aspirin, brillinta, coreg, lisinopril, statin. He will need follow up with cardiology as directed, and with his PCP in 1-2 weeks. This patient was seen by Francesco Elias PA-C under the supervision of Dr. Kingsley [] - Physical Exam Vitals/I&O's: Vital Signs Temp Pulse Resp BP Pulse Ox 97.8 F 84 18 128/69 H 95 07/07/19 09:13 07/07/19 11:03 07/07/19 09:13 07/07/19 09:13 07/07/19 09:13 Oxygen Flow Rate (L/min) 2 Oxygen Delivery Method Room Air Weight: 189 lb 9.561 oz Body Mass Index (BMI) 24.1 Finger Stick Blood Glucose 103 Intake and Output for Last 24 Hours 07/05/19 07/06/19 07/07/19 23:59 23:59 23:59 Intake Total 1860 / 1860 480 / 720 240 / 240 Output Total 2625 / 2625 1500 / 2150 650 / 650 Balance -765 / -765 -1020 / -1430 -410 / -410 General: Alert, Oriented x3, Cooperative HEENT: Atraumatic, PERRLA, EOMI, Normocephalic Neck: Supple, No JVD, Negative Carotid Bruits Lungs: Clear to auscultation, Normal air movement Cardiovascular: Regular rate, No murmurs Abdomen: Bowel Sounds Present, Soft, Non Tender Extremities: No edema, Capillary Refill Less than 3 Seconds Skin: No rashes, No breakdown Musculoskeletal: No Tenderness to Palpation of Joints or Extremities Neurological: Cranial nerves II-XII grossly intact Psych/Mental Status: Normal Affect, Appropriate, Alert and oriented to time, place, person, mood and affect Microbiology Past 72 Hours 07/03/19 06:45 Sputum, Expectorated/Coughed Gram Stain - Final 07/03/19 06:45 Sputum, Expectorated/Coughed Respiratory Culture - Final Staphylococcus aureus 07/03/19 13:50 Urine Catheter - Grace Urine Culture - Final Culture exhibits no growth. 07/04/19 06:50 Swab (Method) Nasal Screen MRSA/MSSA - Final 07/03/19 14:40 Blood Culture (Wb) - Right Hand Blood Culture - Preliminary No growth in 48 hours. 07/03/19 14:00 Blood Culture (Wb) - Central Line Blood Culture - Preliminary No growth in 48 hours. Discharge Diet: Low fat/ Low Cholesterol, 2000 mg Sodium Diet Discharge Activity: Return to Normal Activity Home Medications: Medications to take at Discharge Apixaban [Eliquis] 5 mg PO BID 04/23/19 Acetaminophen [Tylenol Tablet] 650 mg PO Q4H PRN PRN tab 04/29/19 gabapentin 800 mg tablet 800 mg PO BID #60 tab 05/23/19 Aspirin [Aspirin, Baby] 81 mg PO DAILY@0800 tab.chew 07/07/19 Atorvastatin Calcium [Lipitor] 80 mg PO QHS #30 tab 07/07/19 Carvedilol [Coreg (Beta Fco)] 12.5 mg PO BID #60 tab 07/07/19 Doxycycline 100 mg PO BID #9 cap 07/07/19 Lisinopril [Zestril] 2.5 mg PO DAILY #30 tab 07/07/19 Ticagrelor [Brilinta] 90 mg PO BID #60 tab 07/07/19 Following Prescrptions Were Given to Patient: Ticagrelor [Brilinta] 90 mg PO BID #60 tab Transmission Status: Received by [id number] Carvedilol [Coreg (Beta Fco)] 12.5 mg PO BID #60 tab Transmission Status: Received by [id number] Doxycycline 100 mg PO BID #9 cap Transmission Status: Received by [facility][id number] Atorvastatin Calcium [Lipitor] 80 mg PO QHS #30 tab Transmission Status: Received by [facility][id number] Lisinopril [Zestril] 2.5 mg PO DAILY #30 tab Transmission Status: Received by [facility][id number] Primary Care Physician: Dharmesh Alonso MD [Primary Care Provider] - Please follow up with your Primary Care Physician in: 1-2 weeks Please Follow Up With: Christie Tate MD When: as directed Please Follow Up With: Dharmesh Alonso MD Disposition: Home Minutes spent on discharge:: 35 Patient Condition:: Stable Medical Necessity - Tobacco Use Smoking Status: Former smoker Meaningful Use Info Meaningful Use Diagnoses (Choose all that apply): AMI - AMI/Post PCI/Angioplasty Aspirin given w/in 24hrs of arrival?: Yes ASA at discharge?: Yes Antiplatelet Therapy at Discharge:: Yes Statins at discharge?: Yes Fernando/ARB at discharge?: Yes Beta Fco at discharge?: Yes Done w/ Acute MO measure.: Yes Documented LVEF (%): 30 <Alton Kingsley - Last Filed: 07/07/19 13:39> Discharge Date and Diagnosis - Secondary Discharge Diagnosis Chronic Problems (Last Reviewed 07/03/19 @ 01:17 by Nish Peace MD) Chronic renal failure, stage 2 (mild) (Chronic) Depression (Chronic) History of carotid endarterectomy (Chronic) 04/22/19 at [facility] History of ischemic left MCA stroke (Chronic) 04/17/19 Debility (Chronic) due to L MCA stroke 04/17/19 Normochromic normocytic anemia (Chronic) LBBB (left bundle branch block) (Chronic) Dilated cardiomyopathy (Chronic) 27% EF on ECHO 02/18/19........non-ischemic. 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 Data reviewed. I agree with the above note by the physician clinic office assistant. The patient is a 53 year old M presents with a cardiac arrest. Assessment 1. cardiopulmonary arrest: due to Torsades de Pointes 2. NSTEMI: s/p thrombectomy and BRIDGER to LAD 3. Acute respiratory failure: hypercapnic. Extubated 07/04 4. Cardiogenic shock: 2/2 CEA and NSTEMI 5. JUAN: improving 6. Ischemic cardiomyopathy: EF 30% 7. Left atrial thrombus: continue apixaban 8. Chronic issues: depression, PAD, LBBB, HTN,lupus 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 Plan: 1. DAPT, start HIS 2. on carvedilol 3. No LifeVest per cardiology.[] - Physical Exam Vitals/I&O's: Vital Signs Temp Pulse Resp BP Pulse Ox 36.6 C 84 18 128/69 H 95 07/07/19 09:13 07/07/19 11:03 07/07/19 09:13 07/07/19 09:13 07/07/19 09:13 Oxygen Flow Rate (L/min) 2 Oxygen Delivery Method Room Air Weight: 86 kg Body Mass Index (BMI) 24.1 Finger Stick Blood Glucose 103 Intake and Output for Last 24 Hours 07/05/19 07/06/19 07/07/19 23:59 23:59 23:59 Intake Total 1860 / 1860 480 / 720 240 / 240 Output Total 2625 / 2625 1500 / 2150 650 / 650 Balance -765 / -765 -1020 / -1430 -410 / -410 General: Alert, Cooperative HEENT: Atraumatic, Normocephalic Neck: No Nodes, Thyroid Normal Size and Texture Lungs: Clear to auscultation, Normal air movement Cardiovascular: Regular rate, Regular Rhythm, Normal S1, Normal S2, No murmurs Abdomen: Bowel Sounds Present, Soft, Non Tender, Non-Distended Extremities: No edema, No Calf Tenderness Psych/Mental Status: Normal Affect, Appropriate Microbiology Past 72 Hours 07/03/19 06:45 Sputum, Expectorated/Coughed Gram Stain - Final 07/03/19 06:45 Sputum, Expectorated/Coughed Respiratory Culture - Final Staphylococcus aureus 07/03/19 13:50 Urine Catheter - Grace Urine Culture - Final Culture exhibits no growth. 07/04/19 06:50 Swab (Method) Nasal Screen MRSA/MSSA - Final 07/03/19 14:40 Blood Culture (Wb) - Right Hand Blood Culture - Preliminary No growth in 48 hours. 07/03/19 14:00 Blood Culture (Wb) - Central Line Blood Culture - Preliminary No growth in 48 hours. Discharge Diet: Low fat/ Low Cholesterol, 2000 mg Sodium Diet Discharge Activity: Return to Normal Activity Disposition: Home Minutes spent on discharge:: 35 Patient Condition:: Stable Medical Necessity - Tobacco Use Smoking Status: Former smoker Meaningful Use Info Meaningful Use Diagnoses (Choose all that apply): AMI - AMI/Post PCI/Angioplasty Aspirin given w/in 24hrs of arrival?: Yes ASA at discharge?: Yes Antiplatelet Therapy at Discharge:: Yes Statins at discharge?: Yes Fernando/ARB at discharge?: Yes Beta Fco at discharge?: Yes Done w/ Acute MO measure.: Yes Documented LVEF (%): 30 Code Visit Inpatient E&M: [id number] Disch Hosp
--- NOTE | 2019-07-08 14:18 | CCN.REFER ---
DARSHAN CM DC PHONE CALL DC DATE: 07.07.2019 DC Disposition: Home Diagnosis on Discharge: NSTEMI LACE/STRATA: 10/09 Attempted call to phone. No answer, and no machine with voice identifier. Mio CASTRON RN ACM
== END 2019-07-07 12:03 | disposition home or self-care (01) | DRG 246 ==
LOC: ED 00:44 → ICU 01:29 → PCU 07-06 14:41
PROVIDERS: Internal Medicine Critical Care Medicine; Admitting Provider Hospitalist; Emergency Provider Emergency Medicine; PCP Internal Medicine; Referring Provider Specialist
DX: I21.4 Non-ST elevation (NSTEMI) myocardial infarction (principal); I46.2 Cardiac arrest due to underlying cardiac condition; J96.02 Acute respiratory failure with hypercapnia; I47.2 Ventricular tachycardia; N17.9 Acute kidney failure, unspecified; I13.0 Hypertensive heart and chronic kidney disease with heart failure and stage 1 through stage 4 chronic kidney disease, or unspecified chronic kidney disease; D68.62 Lupus anticoagulant syndrome; I50.22 Chronic systolic (congestive) heart failure; I25.5 Ischemic cardiomyopathy; N18.2 Chronic kidney disease, stage 2 (mild); Z89.512 Acquired absence of left leg below knee; Z79.01 Long term (current) use of 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s; Z87.891 Personal history of nicotine dependence; I73.9 Peripheral vascular disease, unspecified; Z86.73 Personal history of transient ischemic attack (TIA), and cerebral infarction without residual deficits; F32.9 Major depressive disorder, single episode, unspecified; I44.7 Left bundle-branch block, unspecified; R53.81 Other malaise; E78.5 Hyperlipidemia, unspecified
CPT/HCPCS: 31500; 31720; 51702; 71045; 76937; 80048; 80053; 80061; 82803; 83735; 84484; 85025; 85027; 85610; 85730; 87040; 87070; 87077; 87081; 87086; 87186; 87205; 87641; 92928; 92941; 93005; 93306; 93458; 94002; 94003; 94640; 94660; 94667; 94668; 97110; 97116; 97162; 97163; 97167; 97530; 97802; 97803; 99152; 99153; 99251; 99285; 99406; J2185; J7030; J7040; J7050; J7120; Q9957; A4216; C1725; C1757; C1769; C1874; C1887; C1894; C8929; C9600; C9606; G0463; J0330; J1327; J2405; J3475; Q9967

== ENCOUNTER 2019-07-08 23:22 | Inpatient (IN) | payer BC, SELFPAY ==
[2019-07-03 02:30] VITALS: BMI 24.1
[2019-07-04 09:02] VITALS: BMI 29.8
[2019-07-08 23:23] VITALS: BP 141/89; PULSE 88; RESP 20; TEMP 36.6; O2SAT 95; BMI 24.3
--- NOTE | 2019-07-08 23:47 | EKG12_ITS ---
Test Reason : DYSRHYTHMIA Blood Pressure : / mmHG Vent. Rate : 083 BPM Atrial Rate : 083 BPM P-R Int : 164 ms QRS Dur : 156 ms QT Int : 428 ms P-R-T Axes : 040 -17 123 degrees QTc Int : 502 ms Normal sinus rhythm Left bundle branch block Abnormal ECG Confirmed by JIN BUSH, MAHSA ([id number]), proposal editor LINDSAY SIDDIQUI ([id number]) on 07/10/2019 9:54:56 AM Referred By: ROXIE Confirmed By:MAHSA ABDI MD
--- NOTE | 2019-07-08 23:48 | ED.VIS.GEN ---
History of Present Illness Chief Complaint: Shortness of Breath Narrative: Patient is a 53-year-old male who presents with back pain and shortness of breath. He recently had an out of hospital cardiac arrest. EMS reported torsades. He underwent defibrillation and did receive IV magnesium. He did have ROSC. He was seen by myself in the emergency department, intubated, sent for emergent cardiac catheterization. He had a 100% LAD occlusion and did undergo thrombectomy and stent placement. While in the ICU he also had a positive sputum culture and was started on doxycycline which he is still on. He was having copious diarrhea at that time and continues to have diarrhea. He was discharged yesterday. He complains of worsening pain across his upper back. He describes this as stabbing. It is pleuritic. It is worse when laying flat. He also complains of increasing shortness of breath cough and sputum. No fever. No vomiting. No abdominal pain. Past Medical History - Allergies and Home Meds Allergies/Adverse Reactions: Allergies Penicillins Allergy (Verified 07/08/19 23:23) Swelling adhesive tape Adverse Reaction (Verified 07/08/19 23:23) Rash oxycodone [From OxyContin] Adverse Reaction (Verified 07/08/19 23:23) Other it makes me go nuts Primary Care Physician: Dharmesh Alonso MD [Primary Care Provider] - Past Medical History: - - Stroke, peripheral vascular disease, left below the knee amputation, coronary artery disease Surgical History: cholecystectomy, - - Left carotid endarterectomy 04/22/2019 at [facility]. Left BKA for severe peripheral vascular disease with nonhealing wounds, cellulitis and osteomyelitis. Multiple stents in both lower extremities secondary to peripheral vascular disease. Multiple debridements of nonhealing wounds of the left lower extremity. Smoking Status: Former smoker - Family History Maternal Family History: Family History (Last Reviewed 07/03/19 @ 01:17 by Nish Peace MD) Other CVA (cerebral vascular accident) Cancer Heart disease Family History: Reports: Cancer, Diabetes, Heart Disease, Renal Disease Paternal Family History: Family History (Last Reviewed 07/03/19 @ 01:17 by Nish Peace MD) Other CVA (cerebral vascular accident) Cancer Heart disease Family History: Reports: Cancer Review of Systems All systems negative except as indicated General: Denies: Fever Eyes: Denies: Visual changes - bilaterally ENT: Denies: Bilateral ear pain Cardiovascular: Reports: Chest pain Respiratory: Reports: Dyspnea, Cough, Sputum Gastrointestinal: Reports: Diarrhea. Denies: Abdominal pain, Nausea, Vomiting Musculoskeletal: Reports: Back pain Skin: Denies: Rash Neurological: Denies: Headache Allergy: Denies: Uticaria Physical Exam Vital Signs/Narrative: Vital Signs Temp Pulse Resp BP Pulse Ox 07/08/19 23:23 97.9 F 88 20 H 141/89 H 95 Inital Vital Signs reviewed: Yes General: Well nourished, Well developed Head: Normocephalic Eyes: EOMI ENT: Moist mucous membranes Neck: Supple Cardiovascular: Regular rate, Regular rhythm Respiratory: - - Tachypnea, diffuse bilateral rales no wheezing Abdomen: Soft, - - Mild diffuse nonfocal abdominal tenderness, nondistended, no guarding or rebound Extremities: Nontender, No edema Skin: Normal color Neurological: Alert Psychological: Normal affect Diagnostic/Tx/Re-eval Impressions Chest X-Ray 07/09/19 00:00 IMPRESSION: Mild bilateral effusions with visualized lung kathleen clear. Electronically Signed: Marisel Bhatia MD at 1:07 EST , Service support , Chest CTA 07/09/19 00:57 IMPRESSION: Negative CTA chest examination, without a demonstrated pulmonary embolism or arterial dissection. Mild bilateral lower lobe atelectasis with mild left effusion. Possible mild underlying small airway disease. Electronically Signed: Marisel Bhatia MD at 2:01 EST , Service support , 07/09/19 00:00 Chest PA and Lateral [RAD] Stat 07/09/19 00:57 CTA Chest W/WO Contrast [CT] Stat Laboratory Results 07/08/19 07/08/19 07/08/19 23:45 23:45 23:45 WBC 9.3 RBC 3.95 L Hgb 11.8 L Hct 34.1 L MCV 86.3 MCH 29.9 MCHC 34.6 RDW Std Deviation 49.5 H RDW Coeff of Lawson 15.6 H Plt Count 368 MPV 10.2 Immature Gran % (Auto) 0.300 Neut % (Auto) 55.0 Lymph % (Auto) 26.1 Phelps % (Auto) 10.9 H Eos % (Auto) 7.1 H Baso % (Auto) 0.6 Absolute Neuts (auto) 5.1 Absolute Lymphs (auto) 2.42 Nucleated RBC % 0 PT 18.2 H INR 1.5 Sodium 138 Potassium 3.6 Chloride 110 H Carbon Dioxide 23.0 Anion Gap 5 BUN 10 Creatinine 1.22 Estim Creat Clear Calc 81.41 Est GFR (MDRD) Af Amer 80 Est GFR (MDRD) Non-Af 66 BUN/Creatinine Ratio 8.2 L Glucose 89 Calcium 8.9 Troponin I 0.329 H B-Natriuretic Peptide 07/08/19 23:45 WBC RBC Hgb Hct MCV MCH MCHC RDW Std Deviation RDW Coeff of Lawson Plt Count MPV Immature Gran % (Auto) Neut % (Auto) Lymph % (Auto) Phelps % (Auto) Eos % (Auto) Baso % (Auto) Absolute Neuts (auto) Absolute Lymphs (auto) Nucleated RBC % PT INR Sodium Potassium Chloride Carbon Dioxide Anion Gap BUN Creatinine Estim Creat Clear Calc Est GFR (MDRD) Af Amer Est GFR (MDRD) Non-Af BUN/Creatinine Ratio Glucose Calcium Troponin I B-Natriuretic Peptide 1070.6 H - Medical Decision Making Initial EKG shows normal sinus rhythm with a left bundle branch block at a rate of 83. Patient was initially treated with morphine and Zofran. He continued to complain of severe pain. He was then given Dilaudid with significant relief. Chest x-ray as above shows small pleural effusions. Labs are notable for troponin of 0.329 which is trending down from recent UT. BNP is 1070. Given patient's ongoing severe back pain complications of catheterization such as aortic dissection or complication of his hospitalization such as pulmonary embolism were considered. Therefore I did obtain a CTA of the chest which is negative for PE or aortic dissection. There is atelectasis with a mild pleural effusion. Although patient does not have overt pulmonary edema given his diffuse rales shortness of breath he was given a dose of IV Lasix here in the emergency department. He will be discussed with the hospitalist and admitted. ED Disposition - Plan for ED Patient: Disposition: Acute Care Hospital [facility] Diagnosis: Back pain, CHF (congestive heart failure) Referrals: Dharmesh Alonso MD [Primary Care Provider] -
[2019-07-08 23:59] LABS: Absolute Lymphocyte Count 2.42 X10^3/uL (0.83-4.51); Absolute Neutrophil Count 5.1 X10^3/uL (2.0-7.7); Basophil# 0.06 X10^3/uL; Basophil% 0.6 % (0-1); Eosinophil# 0.66 X10^3/uL; Eosinophils% 7.1 % (0-5); Hematocrit 34.1 % (40-54); Hemoglobin 11.8 g/dL (13.0-16.5); Lymphocyte # 2.42 X10^3/ul (4.0); Lymphocyte % 26.1 % (19-41); Mean Corp Hgb Conc 34.6 g/dL (32-36); Mean Corpuscular Hgb 29.9 pg (27.0-32.0); Mean Corpuscular Volume 86.3 fL (80-94); Mean Platelet Vol. 10.2 fl (6.2-12.0); Monocyte# 1.01 X10^3/uL; Monocyte% 10.9 % (0-10); NRBC Flagged by Analyzer 0 % (0-5); Neutrophil # 5.08 X10^3/uL (2.7-7.7); Platelet Count 368 K/mm3 (150-450); RBC Distribution Width CV 15.6 % (11.6-14.6); RBC Distribution Width SD 49.5 fl (35.1-43.9); Red Blood Count 3.95 M/mm3 (4.6-6.2); White Blood Count 9.3 K/mm3 (4.4-11.0)
[2019-07-09] VITALS (15 sets, daily range): BP systolic 100–137; BP diastolic 59–78; PULSE 75–87; RESP 14–21; TEMP 36.4–36.8; O2SAT 90–96; BMI 23.0
--- NOTE | 2019-07-09 | RAD_ITS ---
STUDY: X-RAY CHEST REASON FOR EXAM: Male, 53 years old. C/O SOB, COUGH AND BACK PAIN. HE WENT INTO CARDIAC ARREST ON THE 07/02/19. HE HAD A COMPLETE BLOCKAGE TECHNIQUE: PA and lateral views of the chest. COMPARISON: None. FINDINGS: The lungs are clear and expanded. There are mild bilateral pleural effusions, left slightly larger compared to right. Normal size heart. Normal mediastinum and edgar. Normal visualized pulmonary arteries. There is atherosclerotic calcification of the aortic arch with tortuosity. There are diffuse degenerative changes of the visualized thoracic spine. There is degenerative osteoarthritis of the bilateral shoulders. There is no demonstrated abnormality of the visualized soft tissue structures of the upper abdomen. RAD/Chest PA and Lateral IMPRESSION: Mild bilateral effusions with visualized lung kathleen clear. Electronically Signed: Marisel Bhatia MD at 1:07 EST , Service support ,
[2019-07-09] MEDS: Ondansetron 4 MG/2 ML Vial IV (00:05)
[2019-07-09] MEDS: Morphine 4 MG/ML Syringe IV (00:05)
[2019-07-09 00:22] LABS: Anion Gap 5 (5-15); BUN 10 mg/dL (7-18); BUN/Creat Ratio 8.2 RATIO (10-20); Calcium,Total 8.9 mg/dL (8.5-10.1); Chloride 110 mmol/L (98-107); Creatinine, Serum 1.22 mg/dL (0.70-1.30); EST Glomerular Filtration Rate 66 mL/min (>60); Est Glom Filt Rate - Afr Amer 80 mL/min (>60); Estimated Creatinine Clearance 81.41 ml/min; Glucose 89 mg/dL (74-106); Potassium 3.6 mmol/L (3.5-5.1); Sodium Level 138 mmol/L (136-145)
[2019-07-09 00:27] LABS: BNP,B-Type NATRIURETIC PEPTIDE 1070.6 pg/mL (0-100)
[2019-07-09 00:38] LABS: International Normalized Ratio 1.5; Prothrombin Time (Protime)PT. 18.2 SECONDS (11.7-14.9)
--- NOTE | 2019-07-09 00:57 | CT_ITS ---
STUDY: CTA CHEST REASON FOR EXAM: Male, 53 years old. 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 Post-processing of the angiographic images was performed, with multiplanar reformation and 3D reconstruction. Individualized dose optimization techniques were used for this CT. COMPARISON: None. FINDINGS: Normal enhancement of the main pulmonary artery and right and left pulmonary arteries. Normal enhancement of the bilateral peripheral pulmonary arteries. There is no demonstrated pulmonary embolism. Normal thoracic aorta and visualized great vessels. There is no demonstrated aortic dissection. Normal heart and pericardium. Borderline fullness of the thumb lymph nodes within the mediastinum and hilar region, largest averaging 1.4 x 1.3 cm. Otherwise normal mediastinum. Otherwise normal mediastinum and hilar regions. Normal visualized trachea and bronchi. The lungs are well expanded. Areas of mild mosaic pattern demonstrated throughout the lung parenchyma which may indicate sequela of small airway disease. Mild bilateral lower lobe atelectasis, otherwise normal pulmonary parenchyma. Mild bilateral pleural effusions. Normal chest wall structures. Normal osseous structures. Status post cholecystectomy. Otherwise normal liver, spleen and pancreas. Normal bilateral joint glands. Left perinephric stranding. CT/CTA Chest W/WO Contrast IMPRESSION: Negative CTA chest examination, without a demonstrated pulmonary embolism or arterial dissection. Mild bilateral lower lobe atelectasis with mild left effusion. Possible mild underlying small airway disease. Electronically Signed: Marisel Bhatia MD at 2:01 EST , Service support ,
--- NOTE | 2019-07-09 00:58 | EKG12_ITS ---
Test Reason : DYSRHYTHMIA Blood Pressure : / mmHG Vent. Rate : 087 BPM Atrial Rate : 087 BPM P-R Int : 160 ms QRS Dur : 164 ms QT Int : 430 ms P-R-T Axes : 042 -11 125 degrees QTc Int : 517 ms Normal sinus rhythm Left bundle branch block Abnormal ECG Confirmed by JIN BUSH, MAHSA ([id number]), mapping editor LINDSAY SIDDIQUI ([id number]) on 07/10/2019 9:55:17 AM Referred By: ROXIE Confirmed By:MAHSA ABDI MD
[2019-07-09] MEDS: HYDROmorphone 1 MG/ML Syringe IV (01:03)
[2019-07-09] MEDS: Furosemide 40 MG/4 ML Vial IV ×2 (02:16→08:47)
--- NOTE | 2019-07-09 03:13 | PCM.HP.STD ---
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 (2) Back pain Status: Acute (3) CHF (congestive heart failure) Status: Acute Qualifiers: Heart failure type: unspecified Heart failure chronicity: unspecified Qualified Code(s): I50.9 - Heart failure, unspecified (4) Chronic renal failure, stage 2 (mild) Status: Chronic (5) Depression Status: Chronic (6) History of carotid endarterectomy Status: Chronic Comment: 04/22/19 at [facility] (7) History of ischemic left MCA stroke Status: Chronic Comment: 04/17/19 (8) Normochromic normocytic anemia Status: Chronic (9) LBBB (left bundle branch block) Status: Chronic (10) Dilated cardiomyopathy Status: Chronic Comment: 27% EF on ECHO 02/18/19........non-ischemic. normal coronaries on cath August 2016 at [facility] (11) Essential hypertension Status: Chronic (12) History of left heart catheterization (LHC) Status: Resolved Comment: Normal Coronaries....august 2016 at [facility] (13) History of cardiac radiofrequency ablation Status: Resolved Comment: PVC Ablation 02/25/13 @ [facility] (14) Tobacco use disorder Status: Inactive (15) Status post below knee amputation of left lower extremity Status: Chronic Comment: at [facility] for severe PVD with non-healing wounds and recurrent infections LLE (16) MCFP current use of 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 Status: Chronic Comment: Patient is on Coumadin for PE (17) Peripheral arterial disease Status: Chronic Comment: BL LE's....multiple stents in both legs (18) Hypercoagulable state Status: Chronic Comment: Positive lupus 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, positive anticardiolipin anti B IgM, and increased homocystine level History of Present Illness Date of Admission: 07/09/19 Chief Complaint: shortness of breath The patient is a 53 year old male patient status post resuscitation from cardiac arrest 1 week ago presents to the emergency room with acute shortness of breath. Patient was discharged from the hospital yesterday following a one week course in recovery from a 100% lesion of the LAD that was stented. One week ago the patient required 3 defibrillations and was treated for torsades de point in full cardiac arrest and was resuscitated. While in the ICU apparently the patient had a sputum culture done that had MRSA growing and he has been on doxycycline since. Today the patient is experiencing pain from his chest supposedly from having had CPR and also now back pain on both sides along with shortness of breath. BNP P is greater than 1000, troponin level is increased and chest x-ray reveals bilateral lower lobe pleural effusions but no pneumonia is present. By exam of ER physician patient has rales in both lung kathleen and he was given a dose of Lasix to treat for suppose it congestive heart failure. CT scan was negative for pulmonary emboli. The patient is stable enough to be admitted into the progressive care unit overnight for observation and treatment of his shortness of breath likely secondary to CHF. Past Medical History Past Medical History (Chronic Problems): Chronic Problems (Last Reviewed 07/03/19 @ 01:17 by Nish Peace MD) History of sudden cardiac arrest successfully resuscitated (Chronic) Chronic renal failure, stage 2 (mild) (Chronic) Depression (Chronic) History of carotid endarterectomy (Chronic) 04/22/19 at [facility] History of ischemic left MCA stroke (Chronic) 04/17/19 Debility (Chronic) due to L MCA stroke 04/17/19 Normochromic normocytic anemia (Chronic) LBBB (left bundle branch block) (Chronic) Dilated cardiomyopathy (Chronic) 27% EF on ECHO 02/18/19........non-ischemic. normal coronaries on cath August 2016 at [facility] Essential hypertension (Chronic) 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) at [facility] for severe PVD with non-healing wounds and recurrent infections LLE MCFP current use of 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 (Chronic) Patient is on Coumadin for PE Peripheral arterial disease (Chronic) BL LE's....multiple stents in both legs Hypercoagulable state (Chronic) Positive lupus 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, positive anticardiolipin anti B IgM, and increased homocystine level Medical History: Medical History (Last Reviewed 07/03/19 @ 01:17 by Nish Peace MD) Dilated cardiomyopathy (Chronic) I42.0 27% EF on ECHO 02/18/19........non-ischemic. normal coronaries on cath August 2016 at [facility] Essential hypertension (Chronic) I10 Tobacco use disorder (Inactive) F17.200 MCFP current use of 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 (Chronic) Z79.01 Patient is on Coumadin for PE Peripheral arterial disease (Chronic) I73.9 BL LE's....multiple stents in both legs Hypercoagulable state (Chronic) D68.59 Positive lupus 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, positive anticardiolipin anti B IgM, and increased homocystine level Anemia D64.9 Arthritis M19.90 Gallstones K80.20 Vascular disease I99.9 JUAN (acute kidney injury) (Resolved) N17.9 Chronic osteomyelitis of left tibia (Resolved) M86.662 chronic osteomyelitis left tibia at BKA stump Dermatitis (Resolved) L30.9 Ischemic ulcer of right foot (Resolved) L97.519 Osteomyelitis of left lower extremity (Resolved) M86.9 Thrush, oral (Resolved) B37.0 Ulceration of below knee amputation stump (Resolved) T87.89, L97.809 Wound, surgical, nonhealing (Resolved) T81.89XA History of DVT (deep vein thrombosis) (Inactive) Z86.718 History of pulmonary embolism (Inactive) Z86.711 Methicillin resistant Staphylococcus aureus infection (Inactive) A49.02 Pain of amputation stump of left lower extremity (Inactive) T87.89, M79.605 Partial loss of skin graft (Inactive) T86.828 Personal history of osteomyelitis (Inactive) Z87.39 SVT (supraventricular tachycardia) (Inactive) I47.1 had an ablation in the past Allergies Penicillins Allergy (Verified 07/08/19 23:23) Swelling adhesive tape Adverse Reaction (Verified 07/08/19 23:23) Rash oxycodone [From OxyContin] Adverse Reaction (Verified 07/08/19 23:23) Other it makes me go nuts Home Medications: Ambulatory Orders Medication Instructions Recorded Apixaban [Eliquis] 5 mg PO BID 04/23/19 Acetaminophen [Tylenol Tablet] 650 mg PO Q4H PRN PRN tab 04/29/19 gabapentin 800 mg tablet 800 mg PO BID #60 tab 05/23/19 Aspirin [Aspirin, Baby] 81 mg PO DAILY@0800 tab.chew 07/07/19 Atorvastatin Calcium [Lipitor] 80 mg PO QHS #30 tab 07/07/19 Carvedilol [Coreg (Beta Fco)] 12.5 mg PO BID #60 tab 07/07/19 Doxycycline 100 mg PO BID #9 cap 07/07/19 Lisinopril [Zestril] 2.5 mg PO DAILY #30 tab 07/07/19 Ticagrelor [Brilinta] 90 mg PO BID #60 tab 07/07/19 albuterol sulfate 2.5 mg INHALATION Q6H PRN #75 ml 07/08/19 nebulizer accessories See Rx Instructions .ROUTE 07/08/19 .MEDSUPPLY #2 ea Surgical History: Surgical History (Last Reviewed 07/03/19 @ 01:17 by Nish Peace MD) History of left heart catheterization (LHC) (Resolved) Onset Date: ~09/14/16 Z98.890 Normal Coronaries....august 2016 at [facility] History of cardiac radiofrequency ablation (Resolved) Onset Date: ~02/25/13 Z98.890 PVC Ablation 02/25/13 @ [facility] 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) Z89.512 at [facility] for severe PVD with non-healing wounds and recurrent infections LLE History of cholecystectomy Z90.49 1998 History of surgical removal of testicle Z98.890, Z90.79 Surgical History: cholecystectomy, - - Left carotid endarterectomy 04/22/2019 at [facility]. Left BKA for severe peripheral vascular disease with nonhealing wounds, cellulitis and osteomyelitis. Multiple stents in both lower extremities secondary to peripheral vascular disease. Multiple debridements of nonhealing wounds of the left lower extremity. Psychiatric History: No pertinent psych hx Smoking Status: Former smoker - *Family History Maternal Family History: Family History (Last Reviewed 07/03/19 @ 01:17 by Nish Peace MD) Other CVA (cerebral vascular accident) Cancer Heart disease History Items: Cancer, Diabetes, Heart Disease, Renal Disease Paternal Family History: Family History (Last Reviewed 07/03/19 @ 01:17 by Nish Peace MD) Other CVA (cerebral vascular accident) Cancer Heart disease History Items: Cancer Review of Systems Constitutional: Denies: Chills, Fever, Weight Change HEENT: Denies: Head Aches, Sinus Congestion, Sinus Drainage Cardiovascular: Reports: Chest Pain. Denies: Palpitations Respiratory: Reports: Shortness of breath at rest. Denies: Cough, Sputum production Gastrointestinal: Denies: Abdominal Pain, Nausea, Vomiting Genitourinary: Denies: Dysuria Musculoskeletal: Reports: - - Left BKA. Denies: Joint Pain, Joint Tenderness Skin: Denies: Rash, Wounds Neurological: Denies: Numbness, Tingling, Focal weakness Psychiatric: Denies: Anxiety, Depression, Homicidal Ideations, Suicidal Ideations Hematologic/ Lymphatic: Denies: Easy Bruising, Easy Bleeding VTE Information - Inpt Only VTE Present on Admission: No VTE Mechan Device Prophylaxis: None VTE Pharm Prophylaxis ordered?: Yes Patient Problems: Active and Suspected Problems (Last Reviewed 07/03/19 @ 01:17 by Nish Peace MD) Back pain (Acute) CHF (congestive heart failure) (Acute) - Physical Exam Vitals/I&O's: Vital Signs Temp Pulse Resp BP Pulse Ox 97.9 F 78 14 104/65 94 07/08/19 23:23 07/09/19 03:04 07/09/19 03:04 07/09/19 03:04 07/09/19 03:04 Oxygen Delivery Method Room Air Weight: 190 lb Body Mass Index (BMI) 24.3 Finger Stick Blood Glucose 103 General: Alert, Oriented x3, Cooperative HEENT: Atraumatic, Normocephalic Neck: Supple Lungs: Diminished, Rales Cardiovascular: Regular rate, Regular Rhythm, Normal S1, Normal S2, No murmurs Abdomen: Bowel Sounds Present, Soft Extremities: No edema Skin: No rashes, No breakdown Musculoskeletal: No Tenderness to Palpation of Joints or Extremities, - - Left BKA Neurological: Neuro grossly intact Psych/Mental Status: Normal Affect, Appropriate Laboratory Results 07/08/19 23:45: WBC 9.3, RBC 3.95 L, Hgb 11.8 L, Hct 34.1 L, MCV 86.3, MCH 29.9, MCHC 34.6, RDW Std Deviation 49.5 H, RDW Coeff of Lawson 15.6 H, Plt Count 368, MPV 10.2, Immature Gran % (Auto) 0.300, Neut % (Auto) 55.0, Lymph % (Auto) 26.1, [place] % (Auto) 10.9 H, Eos % (Auto) 7.1 H, Baso % (Auto) 0.6, Absolute Neuts (auto) 5.1, Absolute Lymphs (auto) 2.42, Nucleated RBC % 0 07/08/19 23:45: PT 18.2 H, INR 1.5 07/08/19 23:45: Sodium 138, Potassium 3.6, Chloride 110 H, Carbon Dioxide 23.0, Anion Gap 5, BUN 10, Creatinine 1.22, Estim Creat Clear Calc 81.41, Est GFR (MDRD) Af Amer 80, Est GFR (MDRD) Non-Af 66, BUN/Creatinine Ratio 8.2 L, Glucose 89, Calcium 8.9, Troponin I 0.329 H 07/08/19 23:45: B-Natriuretic Peptide 1070.6 H Assessment/Plan All Active Problems (Last Reviewed 07/03/19 @ 01:17 by Nish Peace MD) Cardiac arrest (Acute) Back pain (Acute) CHF (congestive heart failure) (Acute) History of left heart catheterization (LHC) (Resolved ~09/14/16) History of cardiac radiofrequency ablation (Resolved ~02/25/13) JUAN (acute kidney injury) (Resolved) Chronic osteomyelitis of left tibia (Resolved) Dermatitis (Resolved) Ischemic ulcer of right foot (Resolved) Osteomyelitis of left lower extremity (Resolved) Thrush, oral (Resolved) Ulceration of below knee amputation stump (Resolved) Wound, surgical, nonhealing (Resolved) Chronic Problems (Last Reviewed 07/03/19 @ 01:17 by Nish Peace MD) History of sudden cardiac arrest successfully resuscitated (Chronic) Chronic renal failure, stage 2 (mild) (Chronic) Depression (Chronic) History of carotid endarterectomy (Chronic) 04/22/19 at [facility] History of ischemic left MCA stroke (Chronic) 04/17/19 Debility (Chronic) due to L MCA stroke 04/17/19 Normochromic normocytic anemia (Chronic) LBBB (left bundle branch block) (Chronic) Dilated cardiomyopathy (Chronic) 27% EF on ECHO 02/18/19........non-ischemic. normal coronaries on cath August 2016 at [facility] Essential hypertension (Chronic) 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) at [facility] for severe PVD with non-healing wounds and recurrent infections LLE MCFP current use of anticoagulant (Chronic) Patient is on Coumadin for PE Peripheral arterial disease (Chronic) BL LE's....multiple stents in both legs Hypercoagulable state (Chronic) Positive lupus anticoagulant, positive anticardiolipin anti B IgM, and increased homocystine level Plan 1. Acute shortness of breath?mid patient to progressive care unit, suspect underlying cause CHF, diurese patient with Lasix, oxygen as needed add albuterol treatment as needed. Consider echocardiogram however patient is status post cardiac arrest 1 week ago and this may not be clinically significant at this point. Repeat CBC BMP and BNP in a.m. patient will be needing discharge planning to cardiac rehab when appropriate. Consider cardiology consult in the a.m. 2. DVT prophylaxis?continue anticoagulation therapy 3. Coronary artery disease?continue medications including statin and Brilinta. Code Visit OBSV E&M: [id number] Initial observation care L2
--- NOTE | 2019-07-09 05:55 | ECHOCS_ITS ---
Version 2 Reason For Study: CHF Procedure This was a 2D Doppler, Color Flow transthoracic echocardiogram. Contrast injection was performed. Left Ventricle The estimated ejection fraction is 35 %. There is evidence of diastolic dysfunction. Hypokinesis of the septum and anterior wall. Right Ventricle Normal RV size. Normal systolic function. Atria Normal left atrium. Normal right atrium. No doppler evidence for ASD. Mitral Valve There is no mitral valve stenosis. No mitral valve insufficiency. Tricuspid Valve There is no tricuspid stenosis. Trivial tricuspid valve insufficiency. Unable to estimate RV systolic pressure due to insufficient tricuspid regurgitant envelope. Aortic Valve Trisinus/trileaflet aortic valve. There is no aortic stenosis. No aortic valve insufficiency. Pulmonic Valve There is no pulmonic valvular stenosis. No pulmonic valve insufficiency. Great Vessels Normal aortic root. Pericardium/Pleural No pericardial effusion. Medication Diluted definity 2.0ml given slow IV push to enhance endocardial definition. MMode/2D Measurements & Calculations LVIDd: 4.9 cm IVSd: 1.0 cm Ao root diam: 3.0 cm LVIDs: 4.1 cm LVPWd: 0.96 cm RVDd: 2.9 cm FS: 17.4 % LAV(MOD-bp): 44.2 ml LA A4 area: 15.9 cm2 LA dimension(2D): 3.1 cm LAV(MOD-bp) Indexed: 21.3 ml/m2 LAV(MOD-sp2): 41.2 ml LAV(MOD-sp4): 43.8 ml RA A4 area: 12.6 cm2 Time Measurements MV dec time: 0.17 sec Doppler Measurements & Calculations MV E max ruben: 43.1 cm/sec Lat Peak E' Ruben: 5.5 cm/sec Med Peak E' Ruben: 8.3 cm/sec MV A max ruben: 57.4 cm/sec E/E' lat: 7.8 E/E' med: 5.2 MV E/A: 0.75 Ao V2 max: 109.3 cm/sec LV V1 max: 82.2 cm/sec PA V2 max: 123.1 cm/sec Ao max P.8 mmHg LV V1 max P.7 mmHg Interpretation Summary The study was technically difficult. The estimated ejection fraction is 35 %. There is evidence of diastolic dysfunction. Hypokinesis of the septum and anterior wall Diluted definity 2.0ml given slow IV push to enhance endocardial definition. The study was technically difficult. Ordering Physician: Koffi Oseguera Referring Physician: Dharmesh Alonso Performed By: Roxana Neville, RDCS, RVT
[2019-07-09] MEDS: Morphine 2 MG/ML Syringe IV ×2 (06:44→08:49)
[2019-07-09] MEDS: 0.9% Saline Lock 10 ML Syringe IV ×2 (06:44→08:47)
[2019-07-09] MEDS: Albuterol 2.5 MG/3 ML VIAL.NEB. INHALATION ×3 (07:03→19:11)
[2019-07-09 07:30] LABS: Absolute Lymphocyte Count 2.14 X10^3/uL (0.83-4.51); Absolute Neutrophil Count 4.6 X10^3/uL (2.0-7.7); Basophil# 0.05 X10^3/uL; Basophil% 0.6 % (0-1); Eosinophil# 0.66 X10^3/uL; Eosinophils% 7.9 % (0-5); Hematocrit 33.8 % (40-54); Lymphocyte # 2.14 X10^3/ul (4.0); Lymphocyte % 25.6 % (19-41); Mean Corp Hgb Conc 32.5 g/dL (32-36); Mean Corpuscular Hgb 28.6 pg (27.0-32.0); Mean Platelet Vol. 9.9 fl (6.2-12.0); Monocyte# 0.89 X10^3/uL; Monocyte% 10.6 % (0-10); NRBC Flagged by Analyzer 0 % (0-5); Neutrophil # 4.58 X10^3/uL (2.7-7.7); Neutrophil % 54.7 % (47-70); Platelet Count 355 K/mm3 (150-450); RBC Distribution Width CV 15.9 % (11.6-14.6); Red Blood Count 3.84 M/mm3 (4.6-6.2); White Blood Count 8.4 K/mm3 (4.4-11.0)
[2019-07-09 08:04] LABS: Anion Gap 7 (5-15); BUN 10 mg/dL (7-18); BUN/Creat Ratio 7.5 RATIO (10-20); Calcium,Total 8.7 mg/dL (8.5-10.1); Chloride 106 mmol/L (98-107); Creatinine, Serum 1.34 mg/dL (0.70-1.30); EST Glomerular Filtration Rate 59 mL/min (>60); Est Glom Filt Rate - Afr Amer 72 mL/min (>60); Estimated Creatinine Clearance 73.42 ml/min; Glucose 94 mg/dL (74-106); Potassium 3.4 mmol/L (3.5-5.1); Sodium Level 139 mmol/L (136-145)
[2019-07-09] MEDS: Aspirin 81 MG TAB.CHEW PO (08:47)
[2019-07-09] MEDS: APIXABAN 5 MG TABLET PO ×2 (08:47→20:32)
[2019-07-09] MEDS: TICAGRELOR 90 MG TABLET PO ×2 (08:47→20:32)
[2019-07-09] MEDS: Doxycycline 100 MG CAPSULE PO ×2 (08:48→20:32)
[2019-07-09] MEDS: Gabapentin 800 MG Tablet PO ×2 (08:48→20:32)
--- NOTE | 2019-07-09 09:30 | CASEMGMT ---
DARSHAN CM Readmission note: Pt initially admitted 07/03/19 in cardiac arrest. Pt had become unresponsive at home and son had begun CPR at home until squad arrived. EMS then continued ALS and defibrillated pt times 3 until ROSC obtained and then transferred pt to [facility] ED while continuing BVM ventilations. Pt intubated in [facility] ED and pt taken for emergent cardiac catheterization where pt had 100% occlusion of his LAD that was treated with thrombectomy and drug-eluting stent placement. Pt was then admitted to the ICU. Pt was set up to start cardiac rehab s/p discharge from [facility]. Pt then returned to [facility] ED on 07/08/19 with c/o SOB, cough and back pain and admitted with SOB, CHF. Pt to be diuresed with Lasix, and given albuterol treatments. Pt's sats have been 94-96% on room air and pt has not needed oxygen at this time. Pt has a supportive family. Pt was recently at [facility] IP Rehab unit 04/24/19-04/29/20 for acute CVA. CM to follow for any further discharge planning/needs. SStaten DARSHAN [place]
[2019-07-09] MEDS: Carvedilol 12.5 MG Tablet PO ×2 (10:14→20:32)
[2019-07-09] MEDS: Lisinopril 2.5 MG Tablet PO (10:14)
[2019-07-09] MEDS: Acetaminophen 325 MG Tablet 650 MG PO ×3 (12:22→20:32)
--- NOTE | 2019-07-09 12:27 | PCM.PN.HOSP ---
Patient Problems: Active and Suspected Problems (Last Updated 07/09/19 @ 10:37 by Kim Dodd) Back pain (Acute) CHF (congestive heart failure) (Acute) Subjective: chest pain better. breathing well. Vitals/I&O's: Vital Signs Temp Pulse Resp BP Pulse Ox 36.7 C 78 21 H 100/60 95 07/09/19 04:27 07/09/19 07:00 07/09/19 07:00 07/09/19 08:56 07/09/19 04:27 Oxygen Delivery Method Room Air Weight: 81.42 kg Body Mass Index (BMI) 23.0 Finger Stick Blood Glucose 103 Intake and Output for Last 24 Hours 07/07/19 07/08/19 07/09/19 23:59 23:59 23:59 Intake Total 240 / 240 Output Total 800 / 800 Balance -560 / -560 General: Alert, Cooperative, No apparent distress HEENT: Atraumatic, Normocephalic Oral: Moist Mucosa, No Gingival or Mucosal Lesions/ Ulcerations Neck: No Nodes, Trachea Midline Lungs: Normal air movement, - - bibasilar crackles Cardiovascular: Regular rate, Regular Rhythm, Normal S1, Normal S2 Abdomen: Bowel Sounds Present, Soft, Non Tender, Non-Distended, No Hepato-splenomegaly Extremities: No edema, No Calf Tenderness Psych/Mental Status: Normal Affect, Appropriate Laboratory Results 07/08/19 23:45: WBC 9.3, RBC 3.95 L, Hgb 11.8 L, Hct 34.1 L, MCV 86.3, MCH 29.9, MCHC 34.6, RDW Std Deviation 49.5 H, RDW Coeff of Lawson 15.6 H, Plt Count 368, MPV 10.2, Immature Gran % (Auto) 0.300, Neut % (Auto) 55.0, Lymph % (Auto) 26.1, [place] % (Auto) 10.9 H, Eos % (Auto) 7.1 H, Baso % (Auto) 0.6, Absolute Neuts (auto) 5.1, Absolute Lymphs (auto) 2.42, Nucleated RBC % 0 07/08/19 23:45: PT 18.2 H, INR 1.5 07/08/19 23:45: Sodium 138, Potassium 3.6, Chloride 110 H, Carbon Dioxide 23.0, Anion Gap 5, BUN 10, Creatinine 1.22, Estim Creat Clear Calc 81.41, Est GFR (MDRD) Af Amer 80, Est GFR (MDRD) Non-Af 66, BUN/Creatinine Ratio 8.2 L, Glucose 89, Calcium 8.9, Troponin I 0.329 H 07/08/19 23:45: B-Natriuretic Peptide 1070.6 H 07/09/19 03:54: Troponin I 0.207 H 07/09/19 06:56: WBC 8.4, RBC 3.84 L, Hgb 11.0 L, Hct 33.8 L, MCV 88.0, MCH 28.6, MCHC 32.5, RDW Std Deviation 51.0 H, RDW Coeff of Lawson 15.9 H, Plt Count 355, MPV 9.9, Immature Gran % (Auto) 0.600, Neut % (Auto) 54.7, Lymph % (Auto) 25.6, [place] % (Auto) 10.6 H, Eos % (Auto) 7.9 H, Baso % (Auto) 0.6, Absolute Neuts (auto) 4.6, Absolute Lymphs (auto) 2.14, Nucleated RBC % 0 07/09/19 06:56: Sodium 139, Potassium 3.4 L, Chloride 106, Carbon Dioxide 26.0, Anion Gap 7, BUN 10, Creatinine 1.34 H, Estim Creat Clear Calc 73.42, Est GFR (MDRD) Af Amer 72, Est GFR (MDRD) Non-Af 59 L, BUN/Creatinine Ratio 7.5 L, Glucose 94, Calcium 8.7, Troponin I 0.218 H 07/09/19 09:44: Troponin I 0.191 H Current Medications Acetaminophen (Tylenol) 650 mg PO Q4H PRN PRN PRN Reason: Pain Score 1-3/10 Last Admin: 07/09/19 12:22 Dose: 650 mg Documented by: Albuterol Sulfate (Ventolin Aerosols) 2.5 mg INHALATION Q6H PRN PRN Reason: shortness of breath or wheezing Last Admin: 07/09/19 07:03 Dose: 2.5 mg Documented by: Apixaban (Eliquis) 5 mg PO BID ERIKA Last Admin: 07/09/19 08:47 Dose: 5 mg Documented by: Aspirin (Aspirin, Baby) 81 mg PO DAILY@0800 [facility] Last Admin: 07/09/19 08:47 Dose: 81 mg Documented by: Atorvastatin Calcium (Lipitor) 80 mg PO QHS [facility] Carvedilol (Coreg) 12.5 mg PO BID [facility] Last Admin: 07/09/19 10:14 Dose: 12.5 mg Documented by: Doxycycline Monohydrate (Doxycycline) 100 mg PO BID [facility] Last Admin: 07/09/19 08:48 Dose: 100 mg Documented by: Furosemide (Lasix) 40 mg IV BIDLX [facility] Last Admin: 07/09/19 08:47 Dose: 40 mg Documented by: Gabapentin (Neurontin) 800 mg PO BID [facility] Last Admin: 07/09/19 08:48 Dose: 800 mg Documented by: Sodium Chloride () 250 mls @ 15 mls/hr IV .[id number] PRN PRN Reason: Saline Flush Sodium Chloride () 250 mls @ 15 mls/hr IV .[id number] PRN PRN Reason: Additional IVPB Infusion Lisinopril (Zestril) 2.5 mg PO DAILY [facility] Last Admin: 07/09/19 10:14 Dose: 2.5 mg Documented by: Nutritional Formula (Lactose Free) (Ensure Enlive) 120 ml PO 4X/DAY [facility] Last Admin: 07/09/19 08:47 Dose: 120 ml Documented by: Sodium Chloride () 10 - 40 ml IV UD PRN PRN Reason: SALINE FLUSH Last Admin: 07/09/19 08:47 Dose: 10 ml Documented by: Ticagrelor (Brilinta) 90 mg PO BID [facility] Last Admin: 07/09/19 08:47 Dose: 90 mg Documented by: STROKE Vital Signs/Narrative: Vital Signs BP 07/09/19 08:56 100/60 Medical Necessity - Tobacco Use Smoking Status: Former smoker Assessment/Plan All Active Problems (Last Updated 07/09/19 @ 10:37 by Kim Dodd) History of coronary artery stent placement (Acute) Atherosclerosis of coronary artery of [place] heart without angina pectoris (Acute) Cardiac arrest (Acute) Back pain (Acute) CHF (congestive heart failure) (Acute) History of left heart catheterization (LHC) (Resolved ~09/14/16) History of cardiac radiofrequency ablation (Resolved ~02/25/13) JUAN (acute kidney injury) (Resolved) Chronic osteomyelitis of left tibia (Resolved) Dermatitis (Resolved) Ischemic ulcer of right foot (Resolved) Osteomyelitis of left lower extremity (Resolved) Thrush, oral (Resolved) Ulceration of below knee amputation stump (Resolved) Wound, surgical, nonhealing (Resolved) 1. acute HFrEF EF 30% improving change furosemide to PO continue carvedilol and lisinopril currently on RA 2. Ischemic cardiomyopathy as above 3. chest pain troponins trending down from last admission. Not a new event. Likely to the CPR he had received previously. 4. CAD: s/p BRIDGER to LAD continue DAPT, statin 5. Left atrial thrombus: apixaban 6. Disposition: Will keep overnight, since he was readmitted <48h after he was discharged. If stable on 07/10, then DC home. Code Visit Procedures: Other Procedure - See Report - Non billable rounding as pt admitted after mdnt.
--- NOTE | 2019-07-09 12:48 | CHAPLAIN ---
Type of Pastoral Visit _x__ Initial Visit ___ Follow-up Visit ___ On-call Visit ___ General Patient Visit ___ Spiritual Assessment ___ Family Conference ___ Bereavement ___ Rapid Response ___ Code Blue ___ Other (describe below) Pastoral Care Referral From _x__ Patient _x__ Family ___ Nurse ___ Physician ___ Harness Inspector ___ Foreign Exchange Services Manager ___ Other (describe below) Sacrament/Intervention _x__ Active listening ___ Anointing ___ Christianity ___ Bereavement ___ Communion _x__ Misty exploration ___ _x__ Life review _x__ Prayer ___ Reconciliation ___ Sacrament of Sick _x__ Supportive presence ___ Wedding ___ Other (describe below) Pastoral Comments
[2019-07-09] MEDS: Furosemide 40 MG Tablet PO (17:02)
[2019-07-09] MEDS: Atorvastatin Calcium 80 MG Tablet PO (20:32)
[2019-07-10] VITALS (37 sets, daily range): BP systolic 83–122; BP diastolic 56–82; PULSE 63–90; RESP 12–24; TEMP 36.1–37.1; O2SAT 93–98
[2019-07-10] MEDS: 0.9% Saline Lock 10 ML Syringe IV ×4 (01:01→19:32)
[2019-07-10] MEDS: Morphine 2 MG/ML Syringe IV ×3 (01:01→19:33)
[2019-07-10] MEDS: Albuterol 2.5 MG/3 ML VIAL.NEB. INHALATION ×2 (01:13→07:18)
--- NOTE | 2019-07-10 02:24 | EKG12_ITS ---
Test Reason : CP Blood Pressure : / mmHG Vent. Rate : 075 BPM Atrial Rate : 075 BPM P-R Int : 178 ms QRS Dur : 164 ms QT Int : 456 ms P-R-T Axes : 037 -15 133 degrees QTc Int : 509 ms Normal sinus rhythm Left bundle branch block Abnormal ECG When compared with ECG of 10-JUL-2019 02:35, MANUAL COMPARISON REQUIRED, DATA IS UNCONFIRMED Confirmed by MALDONADO ARAGON ([id number]), school photograph editor LINDSAY SIDDIQUI ([id number]) on 07/12/2019 1:22:13 PM Referred By: MAGDA Confirmed By:MALDONADO ARAGON
[2019-07-10] MEDS: Nitroglycerin (INPATIENT USE) 0.4 MG TAB.SUBL SUBLINGUAL (02:38)
[2019-07-10] MEDS: HYDROmorphone 0.5 MG/0.5 ML SYRINGE IV (02:51)
--- NOTE | 2019-07-10 03:10 | NURSING ---
220 PT NOTIFIED THIS RN HE WAS HAVING CHEST PRESSURE JUST LIKE I DID BEFORE I ARRESTED. DR ROBLERO NOTIFIED. TROP, EKG, NITRO, MAG ORDERED. 0238 NITRO GIVEN X1 AND PT'S BP DROPPED TO 93/73. PT REASSESSED CRACKLES, COARSE WHEEZES AND RHONCHI AUDIBLE EXTERNALLY AND IN ALL LOBES W/STETHOSCOPE. FREQUENT GENERAL EXPEDITOR/MOIST COUGH. 0245 DR ROBLERO NOTIFIED THAT PT'S PAIN IS NOT RESOLVING & LS ARE ABOVE. DILAUDID X1 ORDERED. PT REPORTS CHEST PRESSURE/PAIN IMPROVED TO 4/10 WILL CONTINUE TO MONITOR.
[2019-07-10 03:42] LABS: Anion Gap 7 (5-15); BUN 16 mg/dL (7-18); BUN/Creat Ratio 11.5 RATIO (10-20); Calcium,Total 8.8 mg/dL (8.5-10.1); Chloride 103 mmol/L (98-107); Creatinine, Serum 1.39 mg/dL (0.70-1.30); EST Glomerular Filtration Rate 57 mL/min (>60); Est Glom Filt Rate - Afr Amer 69 mL/min (>60); Estimated Creatinine Clearance 70.78 ml/min; Glucose 106 mg/dL (74-106); Potassium 3.6 mmol/L (3.5-5.1); Sodium Level 134 mmol/L (136-145)
--- NOTE | 2019-07-10 05:40 | NURSING ---
PT CONTINUES TO C/O DIFFICULTY BREATHING. SITTING UP STRAIGHT, ACCESSORY MUSCLE USE NOTED. RESPRS CURRENTLY 24 W/SPO2 OF 93%. ALL OTHER VS WNL. DR ROBLERO NOTIFIED. NEW ORDERS ENTERED.
--- NOTE | 2019-07-10 05:44 | RAD_ITS ---
STUDY: X-RAY CHEST REASON FOR EXAM: Male, 53 years old. INCREASED SOB TECHNIQUE: Single AP portable view of the chest. COMPARISON: 07/09/2019 FINDINGS: Subsegmental atelectases are noted in the lung bases. Small bilateral pleural effusions are stable since the previous study. Normal size heart. Normal mediastinum and edgar. Normal visualized pulmonary arteries. Normal visualized aortic arch and descending thoracic aorta. Normal visualized thoracic spine. There is degenerative osteoarthritis of the bilateral shoulders. There is no demonstrated abnormality of the visualized soft tissue structures of the upper abdomen. RAD/Chest 1 View (Portable) IMPRESSION: Small bilateral pleural effusions are stable since the previous study. Electronically Signed: Peri Wright, at 7:23 EST Tel , Service support ,
[2019-07-10] MEDS: Furosemide 40 MG/4 ML Vial IV (05:53)
[2019-07-10 06:16] LABS: Base Excess -3 mmol/L (-2 to +2); Bicarbonate 21.2 mmol/L (22-26); Blood Gas Specimen Type ART; O2 Delivery Device Room Air; PO2 48 mmHG (75-100); SITE R Brachial; SO2 86 % (95-99); Total Carbon Dioxide 22 mmol/L; pCO2 29.5 mmHg (35-45); pH 7.46 (7.35-7.45)
--- NOTE | 2019-07-10 06:17 | NURSING ---
3L O2 APPLIED BASED ON ABG RESULTS.
--- NOTE | 2019-07-10 06:31 | CPS ---
pt placed on 3 l/m after abg drawn-nurse aware
--- NOTE | 2019-07-10 08:10 | NURSING ---
Report called to DARSHAN Zuñiga in ICU
--- NOTE | 2019-07-10 08:14 | NURSING ---
, Roxana, updated on patient status and transfer to ICU room 2
--- NOTE | 2019-07-10 08:18 | PN_ITS ---
Patient Problems: Active and Suspected Problems (Last Updated 07/09/19 @ 10:37 by Kim Dodd) Back pain (Acute) CHF (congestive heart failure) (Acute) Reason for Visit: Acute hypoxic respiratory failure, worsening. Short of breath CHF exacerbation Objective: I was called by the charge nurse to come and see as patient very short of breath with chest congestion. On bedside monitor shows blood pressure systolic in 90s. Last BP mentioned in chart 117/82. Pulse ox 95% on 4 L of oxygen, short of breath, labored accessory use of muscles. Heart rate in 80s. Vitals/I&O's: Vital Signs Temp Pulse Resp BP Pulse Ox 98.7 F 81 17 117/82 H 95 07/10/19 05:42 07/10/19 08:02 07/10/19 08:02 07/10/19 08:02 07/10/19 08:02 Oxygen Flow Rate (L/min) 4 Oxygen Delivery Method Nasal Cannula Weight: 179 lb 8.006 oz Body Mass Index (BMI) 23.0 Finger Stick Blood Glucose 103 Intake and Output for Last 24 Hours 07/08/19 07/09/19 07/10/19 23:59 23:59 23:59 Intake Total 720 / 720 960 / 960 Output Total 3250 / 3250 1400 / 1400 Balance -2530 / -2530 -440 / -440 General: Alert, Oriented x3, Cooperative HEENT: Atraumatic, PERRLA, EOMI, Normocephalic Oral: Dry Mucosa Neck: Supple, No JVD, Negative Carotid Bruits Lungs: Diminished - Air entry severely diminished in all lung kathleen, Rales, Rhonchi, Short of Breath, Using Accessory Muscles Cardiovascular: Regular rate, Regular Rhythm, Normal S1, Normal S2, No murmurs, - - playground monitor shows multiple PVCs, left bundle branch block Chest wall muscle tenderness, midsternal and on left side and on mid back along the thoracic spine Abdomen: Bowel Sounds Present, Soft, Non Tender, Non-Distended Extremities: No edema, Capillary Refill Less than 3 Seconds, - - Left BKA Skin: No rashes, No breakdown Musculoskeletal: No Tenderness to Palpation of Joints or Extremities, Arthritic Changes, Muscle Wasting Neurological: Cranial nerves II-XII grossly intact, Neuro grossly intact Psych/Mental Status: Normal Affect, Appropriate Laboratory Results 07/09/19 09:44: Troponin I 0.191 H 07/10/19 03:08: Sodium 134 L, Potassium 3.6, Chloride 103, Carbon Dioxide 24.0, Anion Gap 7, BUN 16, Creatinine 1.39 H, Estim Creat Clear Calc 70.78, Est GFR (MDRD) Af Amer 69, Est GFR (MDRD) Non-Af 57 L, BUN/Creatinine Ratio 11.5, Glucose 106, Calcium 8.8, Magnesium 2.0, Troponin I 0.099 H 07/10/19 05:45: Troponin I 0.074 H 07/10/19 06:10: Specimen Type ART, Sample Site R Brachial, pH 7.46 H, Bicarbonate Actual 21.2 L, POC Total CO2 22, Base Excess -3 L, O2 Saturation 86 L, ABG pCO2 29.5 L, ABG pO2 48 L, Georges Test NA, O2 Delivery Device Room Air, Blood Gas Notified Whom HOSP MD Current Medications Acetaminophen (Tylenol) 650 mg PO Q4H PRN PRN PRN Reason: Pain Score 1-3/10 Last Admin: 07/09/19 20:32 Dose: 650 mg Documented by: Albuterol Sulfate (Ventolin Aerosols) 2.5 mg INHALATION Q6H PRN PRN Reason: shortness of breath or wheezing Last Admin: 07/10/19 07:18 Dose: 2.5 mg Documented by: Apixaban (Eliquis) 5 mg PO BID [facility] Last Admin: 07/09/19 20:32 Dose: 5 mg Documented by: Aspirin (Aspirin, Baby) 81 mg PO DAILY@0800 [facility] Last Admin: 07/09/19 08:47 Dose: 81 mg Documented by: Atorvastatin Calcium (Lipitor) 80 mg PO QHS [facility] Last Admin: 07/09/19 20:32 Dose: 80 mg Documented by: Carvedilol (Coreg) 12.5 mg PO BID [facility] Last Admin: 07/09/19 20:32 Dose: 12.5 mg Documented by: Doxycycline Monohydrate (Doxycycline) 100 mg PO BID [facility] Last Admin: 07/09/19 20:32 Dose: 100 mg Documented by: Furosemide (Lasix) 40 mg PO BID@1000,1800 [facility] Last Admin: 07/09/19 17:02 Dose: 40 mg Documented by: Gabapentin (Neurontin) 800 mg PO BID [facility] Last Admin: 07/09/19 20:32 Dose: 800 mg Documented by: Sodium Chloride () 250 mls @ 15 mls/hr IV .[id number] PRN PRN Reason: Saline Flush Sodium Chloride () 250 mls @ 15 mls/hr IV .[id number] PRN PRN Reason: Additional IVPB Infusion Lisinopril (Zestril) 2.5 mg PO DAILY [facility] Last Admin: 07/09/19 10:14 Dose: 2.5 mg Documented by: Morphine Sulfate () 2 mg IV Q4H PRN PRN PRN Reason: pain scale 4-10/10 Last Admin: 07/10/19 08:08 Dose: 2 mg Documented by: Nitroglycerin (Nitrostat) 0.4 mg SUBLINGUAL Q5M PRN PRN Reason: CARDIAC/CHEST PAIN Nutritional Formula (Lactose Free) (Ensure Enlive) 120 ml PO 4X/DAY [facility] Last Admin: 07/09/19 20:34 Dose: 120 ml Documented by: Potassium Chlor[facility] (K[facility]Dur) [facility] Sodium Chloride () 10 - 40 ml IV UD PRN PRN Reason: SALINE FLUSH Last Admin: 07/10/19 08:09 Dose: 10 ml Documented by: Ticagrelor (Brilinta) 90 mg PO BID [facility] Last Admin: 07/09/19 20:32 Dose: 90 mg Documented by: STROKE Vital Signs/Narrative: Vital Signs Temp Pulse Resp BP BP Pulse Ox 07/10/19 08:02 81 17 117/82 H 95 07/10/19 07:44 16 96 07/10/19 07:18 81 16 93 07/10/19 07:03 80 07/10/19 05:42 98.7 F 86 21 H 109/77 94 Medical Necessity - Tobacco Use Smoking Status: Former smoker Assessment/Plan All Active Problems (Last Updated 07/09/19 @ 10:37 by Kim Dodd) History of coronary artery stent placement (Acute) Atherosclerosis of coronary artery of minto heart without angina pectoris (Acute) Cardiac arrest (Acute) Back pain (Acute) CHF (congestive heart failure) (Acute) History of left heart catheterization (LHC) (Resolved ~09/14/16) History of cardiac radiofrequency ablation (Resolved ~02/25/13) JUAN (acute kidney injury) (Resolved) Chronic osteomyelitis of left tibia (Resolved) Dermatitis (Resolved) Ischemic ulcer of right foot (Resolved) Osteomyelitis of left lower extremity (Resolved) Thrush, oral (Resolved) Ulceration of below knee amputation stump (Resolved) Wound, surgical, nonhealing (Resolved) The patient is a 53 year old M with pmhx of lupus anticoagulant, systolic CHF, EF 30%, ischemic CM, prior smoker, old LBBB, 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 Had cardiac cath at that time found proximal LAD 100% stenosis, underwent thrombectomy. Echo EF 30% with LV apical thrombus. Respiratory culture showed MSSA and was placed on Doxy. Patient was discharged and readmitted with acute shortness of breath. Chest x-ray shows bilateral lower pleural effusion CT scan negative for PE. 1. Acute hypoxic respiratory failure: Patient is short of breath yesterday night. ABG was done. 7.4 11/26/1947 on room air on patient put on oxygen, most recent pulse ox 95% on 4 L of oxygen per nasal cannula. Patient found very short of breath, with use of accessory muscles therefore transferred to ICU. Machine Stuffer has been consulted. Labs ordered in the morning. Troponin 0 0. 074, 0.096. K3.8 creatinine 1.43. Magnesium 1.8 phosphorus 4.1. Machine Stuffer was advised repeat 2D echo. 2. Acute heart failure with reduced EF, ischemic cardiomyopathy, recent non- STEMI with 100% LAD status post BRIDGER, peripheral arterial disease status post left BKA: Patient started on Lasix drip. On aspirin, Brilinta, carvedilol and lisinopril. Incentive spirometer chest physiotherapy. 3. Recent MSSA in respiratory culture on 07/03/2019: Patient on doxycycline to be completed on 07/11. 4. Atypical chest pain most probably musculoskeletal from recent CPR 5. Left atrial thrombus: apixaban Due to prophylaxis: On Eliquis Total time of the visit including total time spent in counseling or coordination of care, (more than 50% of the total time, spent in obtaining medical information from nurses and other ancillary care providers), discussing with consultantS, nursing staff, review of labs and imaging is 40 minutes Laboratory Results 07/10/19 03:08: Sodium 134 L, Potassium 3.6, Chloride 103, Carbon Dioxide 24.0, Anion Gap 7, BUN 16, Creatinine 1.39 H, Estim Creat Clear Calc 70.78, Est GFR (MDRD) Af Amer 69, Est GFR (MDRD) Non-Af 57 L, BUN/Creatinine Ratio 11.5, Glucose 106, Calcium 8.8, Magnesium 2.0, Troponin I 0.099 H 07/10/19 05:45: Troponin I 0.074 H 07/10/19 06:10: Specimen Type ART, Sample Site R Brachial, pH 7.46 H, Bicarbonate Actual 21.2 L, POC Total CO2 22, Base Excess -3 L, O2 Saturation 86 L, ABG pCO2 29.5 L, ABG pO2 48 L, Georges Test NA, O2 Delivery Device Room Air, Blood Gas Notified Whom HOSP 07/10/19 08:40: Troponin I 0.096 H 07/10/19 08:40: Sodium 133 L, Potassium 3.8, Chloride 100, Carbon Dioxide 27.0, Anion Gap 6, BUN 16, Creatinine 1.43 H, Estim Creat Clear Calc 68.80, Est GFR (MDRD) Af Amer 66, Est GFR (MDRD) Non-Af 55 L, BUN/Creatinine Ratio 11.2, Glucose 95, Calcium 9.4, Phosphorus 4.1, Magnesium 1.8, Total Bilirubin 0.80, AST 49 H, ALT 57, Alkaline Phosphatase 189 H, Total Creatine Kinase 52, Total Protein 9.0 H, Albumin 3.8, Globulin 5.2 H, Albumin/Globulin Ratio 0.7 L 07/10/19 09:35: WBC 9.4, RBC 4.07 L, Hgb 11.7 L, Hct 35.4 L, MCV 87.0, MCH 28.7, MCHC 33.1, RDW Std Deviation 49.6 H, RDW Coeff of Lawson 15.6 H, Plt Count 449, MPV 10.1, Immature Gran % (Auto) 0.500, Neut % (Auto) 54.1, Lymph % (Auto) 27.6, Mcleod % (Auto) 10.2 H, Eos % (Auto) 7.0 H, Baso % (Auto) 0.6, Absolute Neuts (auto) 5.1, Absolute Lymphs (auto) 2.59, Nucleated RBC % 0 Code Visit Inpatient E&M: 42966 Subs Hosp L3
--- NOTE | 2019-07-10 08:30 | EKG12_ITS ---
Test Reason : CP Blood Pressure : / mmHG Vent. Rate : 073 BPM Atrial Rate : 073 BPM P-R Int : 164 ms QRS Dur : 166 ms QT Int : 468 ms P-R-T Axes : 037 -19 127 degrees QTc Int : 515 ms Normal sinus rhythm Left bundle branch block Abnormal ECG When compared with ECG of 09-JUL-2019 01:03, MANUAL COMPARISON REQUIRED, DATA IS UNCONFIRMED Confirmed by MALDONADO ARAGON ([id number]), editorial assistant LINDSAY SIDDIQUI ([id number]) on 07/12/2019 1:28:27 PM Referred By: LUZMARIA Confirmed By:MALDONADO ARAGON
[2019-07-10] MEDS: Furosemide 500 MG in Empty Viaflex 50 mL 1 EACH CONT INF (09:18)
[2019-07-10 09:34] LABS: ALB/GLOB Ratio 0.7 RATIO (0.9-2.4); AST(SGOT) 49 U/L (15-37); Alanine Aminotransfer ALT/SGPT 57 U/L (16-61); Albumin, Serum 3.8 g/dL (3.2-5.0); Alkaline Phosphatase 189 U/L (45-117); Anion Gap 6 (5-15); BUN 16 mg/dL (7-18); BUN/Creat Ratio 11.2 RATIO (10-20); CPK Total, Creatine Kinase 52 U/L (39-308); Calcium,Total 9.4 mg/dL (8.5-10.1); Chloride 100 mmol/L (98-107); Creatinine, Serum 1.43 mg/dL (0.70-1.30); EST Glomerular Filtration Rate 55 mL/min (>60); Est Glom Filt Rate - Afr Amer 66 mL/min (>60); Globulin 5.2 g/dL (2.2-4.2); Glucose 95 mg/dL (74-106); Magnesium 1.8 mg/dL (1.6-2.6); Phosphorus 4.1 mg/dL (2.5-4.9); Potassium 3.8 mmol/L (3.5-5.1); Sodium Level 133 mmol/L (136-145)
[2019-07-10] MEDS: Aspirin 81 MG TAB.CHEW PO (09:37)
[2019-07-10] MEDS: Carvedilol 12.5 MG Tablet PO ×2 (09:38→21:18)
[2019-07-10] MEDS: Gabapentin 800 MG Tablet PO ×2 (09:38→21:19)
[2019-07-10] MEDS: Doxycycline 100 MG CAPSULE PO ×2 (09:38→21:18)
[2019-07-10] MEDS: Lisinopril 2.5 MG Tablet PO (09:38)
[2019-07-10] MEDS: TICAGRELOR 90 MG TABLET PO ×2 (09:38→21:17)
[2019-07-10] MEDS: APIXABAN 5 MG TABLET PO ×2 (09:39→21:18)
[2019-07-10 09:52] LABS: Absolute Lymphocyte Count 2.59 X10^3/uL (0.83-4.51); Absolute Neutrophil Count 5.1 X10^3/uL (2.0-7.7); Basophil# 0.06 X10^3/uL; Basophil% 0.6 % (0-1); Eosinophil# 0.66 X10^3/uL; Hematocrit 35.4 % (40-54); Hemoglobin 11.7 g/dL (13.0-16.5); Lymphocyte # 2.59 X10^3/ul (4.0); Lymphocyte % 27.6 % (19-41); Mean Corp Hgb Conc 33.1 g/dL (32-36); Mean Corpuscular Hgb 28.7 pg (27.0-32.0); Mean Platelet Vol. 10.1 fl (6.2-12.0); Monocyte# 0.96 X10^3/uL; Monocyte% 10.2 % (0-10); NRBC Flagged by Analyzer 0 % (0-5); Neutrophil # 5.08 X10^3/uL (2.7-7.7); Neutrophil % 54.1 % (47-70); Platelet Count 449 K/mm3 (150-450); RBC Distribution Width CV 15.6 % (11.6-14.6); RBC Distribution Width SD 49.6 fl (35.1-43.9); Red Blood Count 4.07 M/mm3 (4.6-6.2); White Blood Count 9.4 K/mm3 (4.4-11.0)
[2019-07-10] MEDS: Acetaminophen 325 MG Tablet 650 MG PO (13:57)
--- NOTE | 2019-07-10 14:25 | CHAPLAIN ---
Type of Pastoral Visit ___ Initial Visit _x__ Follow-up Visit ___ On-call Visit ___ General Patient Visit ___ Spiritual Assessment ___ Family Conference ___ Bereavement ___ Rapid Response ___ Code Blue ___ Other (describe below) Pastoral Care Referral From _x__ Patient ___ Family ___ Nurse ___ Physician ___ Library Technical Assistant ___ Artificial Inseminator ___ Other (describe below) Sacrament/Intervention _x__ Active listening ___ Anointing ___ Temple ___ Bereavement ___ Communion ___ Imsty exploration ___ ___ Life review _x__ Prayer ___ Reconciliation ___ Sacrament of Sick _x__ Supportive presence ___ Wedding ___ Other (describe below) Pastoral Comments
--- NOTE | 2019-07-10 16:58 | CON.PCM_ITS ---
Reason for Consult Date of Consultation: 07/10/19 History of Present Illness: The patient is a 53 year old male patient status post resuscitation from cardiac arrest 1 week ago presents to the emergency room with acute shortness of breath. Patient was discharged from the hospital yesterday following a one week course in recovery from a 100% lesion of the LAD that was stented. One week ago the patient required 3 defibrillations and was treated for torsades de point in full cardiac arrest and was resuscitated. While in the ICU apparently the patient had a sputum culture done that had MRSA growing and he has been on doxycycline since. Today the patient is experiencing pain from his chest supposedly from having had CPR and also now back pain on both sides along with shortness of breath. BNP P is greater than 1000, troponin level is increased and chest x-ray reveals bilateral lower lobe pleural effusions but no pneumonia is present. By exam of ER physician patient has rales in both lung kathleen and he was given a dose of Lasix to treat for suppose it congestive heart failure. CT scan was negative for pulmonary emboli. Patient was admitted to the PCU initially and then since he went into further respiratory distress was transferred to the ICU. He was started on a Lasix drip and this has resulted in significant improvement in his shortness of breath. He continues to have some shortness of breath. His 2D echo revealed decreased LV systolic function but no evidence of VSD, MR etc. Review of systems: All systems reviewed. All else is negative except that in the HPI. Past Medical History Allergies/Adverse Reactions: Allergies Penicillins Allergy (Verified 07/08/19 23:23) Swelling adhesive tape Adverse Reaction (Verified 07/08/19 23:23) Rash oxycodone [From OxyContin] Adverse Reaction (Verified 07/08/19 23:23) Other it makes me go nuts Home Medications: Ambulatory Orders Medication Instructions Recorded Apixaban [Eliquis] 5 mg PO BID 04/23/19 Acetaminophen [Tylenol Tablet] 650 mg PO Q4H PRN PRN tab 04/29/19 gabapentin 800 mg tablet 800 mg PO BID #60 tab 05/23/19 Aspirin [Aspirin, Baby] 81 mg PO DAILY@0800 tab.chew 07/07/19 Atorvastatin Calcium [Lipitor] 80 mg PO QHS #30 tab 07/07/19 Carvedilol [Coreg (Beta Fco)] 12.5 mg PO BID #60 tab 07/07/19 Doxycycline 100 mg PO BID #9 cap 07/07/19 Lisinopril [Zestril] 2.5 mg PO DAILY #30 tab 07/07/19 Ticagrelor [Brilinta] 90 mg PO BID #60 tab 07/07/19 albuterol sulfate 2.5 mg INHALATION Q6H PRN #75 ml 07/08/19 nebulizer accessories See Rx Instructions .ROUTE 07/08/19 .MEDSUPPLY #2 ea Past Medical History (Chronic Problems): Chronic Problems (Last Updated 07/09/19 @ 10:37 by Kim Dodd) History of sudden cardiac arrest successfully resuscitated (Chronic) Chronic renal failure, stage 2 (mild) (Chronic) Depression (Chronic) History of carotid endarterectomy (Chronic) 04/22/19 at [facility] History of ischemic left MCA stroke (Chronic) 04/17/19 Debility (Chronic) due to L MCA stroke 04/17/19 Normochromic normocytic anemia (Chronic) LBBB (left bundle branch block) (Chronic) Dilated cardiomyopathy (Chronic) 27% EF on ECHO 02/18/19........non-ischemic. 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 Left BKA for severe peripheral vascular disease with nonhealing wounds, cellulitis and osteomyelitis. Multiple stents in both lower extremities secondary to peripheral vascular disease. Multiple debridements of nonhealing wounds of the left lower extremity. Psychiatric History: No pertinent psych hx - *Family History Maternal Family History: Family History (Last Reviewed 07/03/19 @ 01:17 by Nish Peace MD) Other CVA (cerebral vascular accident) Cancer Heart disease History Items: Cancer, Diabetes, Heart Disease, Renal Disease Paternal Family History: Family History (Last Reviewed 07/03/19 @ 01:17 by Nish Peace MD) Other CVA (cerebral vascular accident) Cancer Heart disease History Items: Cancer Smoking Status: Former smoker Objective: Vital Signs Temp Pulse Resp BP Pulse Ox 97.5 F L 63 12 98/75 98 07/10/19 16:00 07/10/19 16:00 07/10/19 16:00 07/10/19 16:00 07/10/19 16:00 Oxygen Flow Rate (L/min) 1 Oxygen Delivery Method Room Air Weight: 179 lb 8.006 oz Body Mass Index (BMI) 23.0 Finger Stick Blood Glucose 103 Intake and Output for Last 24 Hours 07/08/19 07/09/19 07/10/19 23:59 23:59 23:59 Intake Total 720 / 720 1200 / 1200 Output Total 3250 / 3250 2575 / 2575 Balance -2530 / -2530 -1375 / -1375 General: Awake, Alert, Oriented x 3 HEENT: Atraumatic Oral: Moist Mucosa Neck: Supple Lungs: Rales - Fish Bases, Expiratory Wheezes-Fish Cardiovascular: Normal S1, Normal S2 Abdomen: Soft Extremities: No edema, - - Left below-knee amputation Skin: No Rashes Psych/Mental Status: Appropriate 07/10/19 03:08: Sodium 134 L, Potassium 3.6, Chloride 103, Carbon Dioxide 24.0, Anion Gap 7, BUN 16, Creatinine 1.39 H, Est GFR (MDRD) Af Amer 69, Est GFR (MDRD) Non-Af 57 L, BUN/Creatinine Ratio 11.5, Glucose 106, Calcium 8.8, Magnesium 2.0, Troponin I 0.099 H 07/10/19 05:45: Troponin I 0.074 H 07/10/19 06:10: pH 7.46 H, Bicarbonate Actual 21.2 L, POC Total CO2 22, Base Excess -3 L, O2 Saturation 86 L, ABG pCO2 29.5 L, ABG pO2 48 L, Georges Test NA 07/10/19 08:40: Troponin I 0.096 H 07/10/19 08:40: Sodium 133 L, Potassium 3.8, Chloride 100, Carbon Dioxide 27.0, Anion Gap 6, BUN 16, Creatinine 1.43 H, Est GFR (MDRD) Af Amer 66, Est GFR (MDRD) Non-Af 55 L, BUN/Creatinine Ratio 11.2, Glucose 95, Calcium 9.4, Phosphorus 4.1, Magnesium 1.8, Total Bilirubin 0.80 07/10/19 09:35: WBC 9.4, RBC 4.07 L, Hgb 11.7 L, Hct 35.4 L, MCV 87.0, MCH 28.7, MCHC 33.1, Plt Count 449, MPV 10.1, Immature Gran % (Auto) 0.500, Neut % (Auto) 54.1, Lymph % (Auto) 27.6, [place] % (Auto) 10.2 H, Eos % (Auto) 7.0 H, Baso % (Auto) 0.6, Absolute Neuts (auto) 5.1, Nucleated RBC % 0 Rhythm: EKG: ECHO: Stress Test: Cardiac Cath: PCI: CT Surgery: Holter monitor: EPS: PPM: CXR: Chest CT Scan: Assessment/Plan 1. Shortness of breath: Appears to be secondary to decompensated CHF. Agree with Lasix drip. Patient has significant wheezing. He states that he has about a [id number] history of smoking. I think will be reasonable to start him on albuterol and ipratropium as well to see if this helps in addition to the Lasix drip. 2. Coronary artery disease: Continue present medications including dual antiplatelet therapy. 3. Elevated troponin: Appears to be trending down from his recent MN. 4. LV dysfunction: Continue beta-fco and ALIZE inhibitor. He may need reevaluation of his LVEF 3 months from his PCI to see if he requires an AICD.
[2019-07-10] MEDS: Ipratropium/Albuterol Sulfate 3 ML AMPUL.NEB INHALATION (17:28)
[2019-07-10] MEDS: Atorvastatin Calcium 80 MG Tablet PO (21:18)
[2019-07-10] MEDS: oxyCODONE 5 MG Tablet 10 MG PO (23:01)
[2019-07-11] VITALS (31 sets, daily range): BP systolic 81–126; BP diastolic 55–93; PULSE 61–100; RESP 12–23; TEMP 36.2–36.7; O2SAT 92–96
[2019-07-11] MEDS: Ipratropium/Albuterol Sulfate 3 ML AMPUL.NEB INHALATION ×4 (00:45→18:44)
[2019-07-11] MEDS: HYDROmorphone 0.5 MG/0.5 ML SYRINGE IV (02:25)
[2019-07-11] MEDS: 0.9% Saline Lock 10 ML Syringe IV ×5 (02:27→21:10)
[2019-07-11 04:48] LABS: Anion Gap 6 (5-15); BUN 27 mg/dL (7-18); BUN/Creat Ratio 15.8 RATIO (10-20); Calcium,Total 9.2 mg/dL (8.5-10.1); Chloride 99 mmol/L (98-107); Creatinine, Serum 1.71 mg/dL (0.70-1.30); EST Glomerular Filtration Rate 45 mL/min (>60); Est Glom Filt Rate - Afr Amer 54 mL/min (>60); Estimated Creatinine Clearance 57.53 ml/min; Glucose 101 mg/dL (74-106); Potassium 4.1 mmol/L (3.5-5.1); Sodium Level 134 mmol/L (136-145)
[2019-07-11 05:06] LABS: Absolute Lymphocyte Count 3.85 X10^3/uL (0.83-4.51); Absolute Neutrophil Count 4.8 X10^3/uL (2.0-7.7); Basophil# 0.07 X10^3/uL; Basophil% 0.7 % (0-1); Eosinophil# 0.74 X10^3/uL; Hematocrit 36.9 % (40-54); Lymphocyte # 3.85 X10^3/ul (4.0); Lymphocyte % 36.5 % (19-41); Mean Corp Hgb Conc 32.5 g/dL (32-36); Mean Corpuscular Hgb 28.4 pg (27.0-32.0); Mean Corpuscular Volume 87.2 fL (80-94); Mean Platelet Vol. 10.2 fl (6.2-12.0); Monocyte# 1.04 X10^3/uL; Monocyte% 9.9 % (0-10); NRBC Flagged by Analyzer 0 % (0-5); Neutrophil # 4.83 X10^3/uL (2.7-7.7); Neutrophil % 45.7 % (47-70); Platelet Count 511 K/mm3 (150-450); RBC Distribution Width CV 15.8 % (11.6-14.6); RBC Distribution Width SD 50.1 fl (35.1-43.9); Red Blood Count 4.23 M/mm3 (4.6-6.2); White Blood Count 10.6 K/mm3 (4.4-11.0)
--- NOTE | 2019-07-11 07:47 | RAD_ITS ---
STUDY: X-RAY CHEST REASON FOR EXAM: Male, 53 years old. SHORTNESS OF BREATH TECHNIQUE: Single AP portable view of the chest. COMPARISON: Comparison is made with prior study dated July 10, 2019. FINDINGS: EKG electrodes are seen. Since prior study, there has been improved aeration at the lung bases. Residual atelectasis and/or infiltrates persist in the left lower lobe. Blunting of both costophrenic angle. Normal size heart. Normal mediastinum and edgar. Normal visualized pulmonary arteries. Normal visualized aortic arch and descending thoracic aorta. Normal visualized thoracic spine. Normal visualized ribs, clavicles, and shoulders. There is no demonstrated abnormality of the visualized soft tissue structures of the upper abdomen. RAD/Chest 1 View (Portable) IMPRESSION: There is been improved aeration of both lung bases as compared to prior study. Further follow-up is recommended. Electronically Signed: Earnest Humphrey, at 8:37 EST , Service support ,
--- NOTE | 2019-07-11 08:04 | PN_ITS ---
Patient Problems: Active and Suspected Problems (Last Updated 07/09/19 @ 10:37 by Kim Dodd) Back pain (Acute) CHF (congestive heart failure) (Acute) Reason for Visit: CHF exacerbation Objective: Patient is cough and chest congestion. Not able to bring up phlegm. On bronchodilator. History of smoking, quit about 3 to 4 months ago; 25 pack years of smoking Blood pressure on lower side in systolic 90s. Usually his blood pressure, systolic 120s Vitals/I&O's: Vital Signs Temp Pulse Resp BP Pulse Ox 98.1 F 67 17 94/67 96 07/11/19 02:00 07/11/19 07:28 07/11/19 07:00 07/11/19 07:00 07/11/19 07:00 Oxygen Flow Rate (L/min) 1 Oxygen Delivery Method Room Air Weight: 173 lb 8.061 oz Body Mass Index (BMI) 23.0 Finger Stick Blood Glucose 103 Intake and Output for Last 24 Hours 07/09/19 07/10/19 07/11/19 23:59 23:59 23:59 Intake Total 720 / 720 1820 / 1820 400 / 400 Output Total 3250 / 3250 3950 / 3950 350 / 350 Balance -2530 / -2530 -2130 / -2130 50 / 50 General: Alert, Oriented x3, Cooperative HEENT: Atraumatic, PERRLA, EOMI, Normocephalic Neck: Supple, No JVD, Negative Carotid Bruits Lungs: Diminished - Air entry diminished bilaterally, Rhonchi - Inspiratory rhonchi present Cardiovascular: Regular rate, Regular Rhythm, Normal S1, Normal S2, No murmurs Abdomen: Bowel Sounds Present, Soft, Non Tender, Non-Distended Extremities: No edema, Capillary Refill Less than 3 Seconds, - - Left below-knee amputation Skin: No rashes, No breakdown Musculoskeletal: No Tenderness to Palpation of Joints or Extremities Neurological: Cranial nerves II-XII grossly intact Psych/Mental Status: Normal Affect, Appropriate Laboratory Results 07/10/19 08:40: Troponin I 0.096 H 07/10/19 08:40: Sodium 133 L, Potassium 3.8, Chloride 100, Carbon Dioxide 27.0, Anion Gap 6, BUN 16, Creatinine 1.43 H, Estim Creat Clear Calc 68.80, Est GFR (MDRD) Af Amer 66, Est GFR (MDRD) Non-Af 55 L, BUN/Creatinine Ratio 11.2, Glucose 95, Calcium 9.4, Phosphorus 4.1, Magnesium 1.8, Total Bilirubin 0.80, AST 49 H, ALT 57, Alkaline Phosphatase 189 H, Total Creatine Kinase 52, Total Protein 9.0 H, Albumin 3.8, Globulin 5.2 H, Albumin/Globulin Ratio 0.7 L 07/10/19 09:35: WBC 9.4, RBC 4.07 L, Hgb 11.7 L, Hct 35.4 L, MCV 87.0, MCH 28.7, MCHC 33.1, RDW Std Deviation 49.6 H, RDW Coeff of Lawson 15.6 H, Plt Count 449, MPV 10.1, Immature Gran % (Auto) 0.500, Neut % (Auto) 54.1, Lymph % (Auto) 27.6, [place] % (Auto) 10.2 H, Eos % (Auto) 7.0 H, Baso % (Auto) 0.6, Absolute Neuts (auto) 5.1, Absolute Lymphs (auto) 2.59, Nucleated RBC % 0 07/11/19 04:20: WBC 10.6, RBC 4.23 L, Hgb 12.0 L, Hct 36.9 L, MCV 87.2, MCH 28.4, MCHC 32.5, RDW Std Deviation 50.1 H, RDW Coeff of Lawson 15.8 H, Plt Count 511 H, MPV 10.2, Immature Gran % (Auto) 0.200, Neut % (Auto) 45.7 L, Lymph % (Auto) 36.5, [place] % (Auto) 9.9, Eos % (Auto) 7.0 H, Baso % (Auto) 0.7, Absolute Neuts (auto) 4.8, Absolute Lymphs (auto) 3.85, Nucleated RBC % 0 07/11/19 04:20: Sodium 134 L, Potassium 4.1, Chloride 99, Carbon Dioxide 29.0, Anion Gap 6, BUN 27 H, Creatinine 1.71 H, Estim Creat Clear Calc 57.53, Est GFR (MDRD) Af Amer 54 L, Est GFR (MDRD) Non-Af 45 L, BUN/Creatinine Ratio 15.8, Glucose 101, Calcium 9.2 Current Medications Acetaminophen (Tylenol) 650 mg PO Q4H PRN PRN PRN Reason: Pain Score 1-3/10 Last Admin: 07/10/19 13:57 Dose: 650 mg Documented by: Albuterol Sulfate (Ventolin Aerosols) 2.5 mg INHALATION Q6H PRN PRN Reason: shortness of breath or wheezing Last Admin: 07/10/19 07:18 Dose: 2.5 mg Documented by: Albuterol/Ipratropium (Duoneb) 3 ml INHALATION Q6H.RT [facility] Last Admin: 07/11/19 07:30 Dose: 3 ml Documented by: Apixaban (Eliquis) 5 mg PO BID [facility] Last Admin: 07/10/19 21:18 Dose: 5 mg Documented by: Aspirin (Aspirin, Baby) 81 mg PO DAILY@0800 [facility] Last Admin: 07/10/19 09:37 Dose: 81 mg Documented by: Atorvastatin Calcium (Lipitor) 80 mg PO QHS [facility] Last Admin: 07/10/19 21:18 Dose: 80 mg Documented by: Carvedilol (Coreg) 12.5 mg PO BID [facility] Last Admin: 07/10/19 21:18 Dose: 12.5 mg Documented by: Doxycycline Monohydrate (Doxycycline) 100 mg PO BID [facility] Last Admin: 07/10/19 21:18 Dose: 100 mg Documented by: Gabapentin (Neurontin) 800 mg PO BID [facility] Last Admin: 07/10/19 21:19 Dose: 800 mg Documented by: Guaifenesin (Mucinex) 1,200 mg PO BID [facility] Hydromorphone HCl (Dilaudid Inj) 0.5 mg IV Q3H PRN PRN PRN Reason: Pain Score 4-10/10 Last Admin: 07/11/19 02:25 Dose: 0.5 mg Documented by: Sodium Chloride () 250 mls @ 15 mls/hr IV .[id number] PRN PRN Reason: Saline Flush Sodium Chloride () 250 mls @ 15 mls/hr IV .[id number] PRN PRN Reason: Additional IVPB Infusion Furosemide 500 mg/ N/A 50 mls @ 1 mls/hr CONT INF .Q50H [facility] Last Admin: 07/10/19 09:18 Dose: 10 mg/hr, 1 mls/hr Documented by: Lisinopril (Zestril) 2.5 mg PO DAILY [facility] Last Admin: 07/10/19 09:38 Dose: 2.5 mg Documented by: Nitroglycerin (Nitrostat) 0.4 mg SUBLINGUAL Q5M PRN PRN Reason: CARDIAC/CHEST PAIN Nutritional Formula (Lactose Free) (Ensure Enlive) 120 ml PO 4X/DAY [facility] Last Admin: 07/10/19 21:21 Dose: 120 ml Documented by: Ondansetron HCl (Zofran) 4 mg IV Q6H PRN PRN PRN Reason: nausea, emesis Oxycodone HCl (Oxyir) 10 mg PO Q4H PRN PRN PRN Reason: Pain Score 4-10/10 Last Admin: 07/10/19 23:01 Dose: 10 mg Documented by: [facility]assium [facility] ([facility]Dur) [facility] Last Admin: 07/10/19 09:36 Dose: 40 meq Documented by: Sodium Chloride () 10 - 40 ml IV UD PRN PRN Reason: SALINE FLUSH Last Admin: 07/11/19 02:27 Dose: 20 ml Documented by: Ticagrelor (Brilinta) 90 mg PO BID [facility] Last Admin: 07/10/19 21:17 Dose: 90 mg Documented by: STROKE Vital Signs/Narrative: Vital Signs Pulse Resp BP Pulse Ox 07/11/19 07:28 67 07/11/19 07:00 61 17 94/67 96 07/11/19 06:00 81 18 90/56 L 92 07/11/19 05:00 66 22 H 82/55 L 95 Medical Necessity - Tobacco Use Smoking Status: Former smoker Assessment/Plan All Active Problems (Last Updated 07/09/19 @ 10:37 by Kim Dodd) History of coronary artery stent placement (Acute) Atherosclerosis of coronary artery of [place] heart without angina pectoris (Acute) Cardiac arrest (Acute) Back pain (Acute) CHF (congestive heart failure) (Acute) History of left heart catheterization (LHC) (Resolved ~09/14/16) History of cardiac radiofrequency ablation (Resolved ~02/25/13) JUAN (acute kidney injury) (Resolved) Chronic osteomyelitis of left tibia (Resolved) Dermatitis (Resolved) Ischemic ulcer of right foot (Resolved) Osteomyelitis of left lower extremity (Resolved) Thrush, oral (Resolved) Ulceration of below knee amputation stump (Resolved) Wound, surgical, nonhealing (Resolved) The patient is a 53 year old M with pmhx of lupus anticoagulant, systolic CHF, EF 30%, ischemic CM, prior smoker, old LBBB, 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 Had cardiac cath at that time found proximal LAD 100% stenosis, underwent thrombectomy. Echo EF 30% with LV apical thrombus. Respiratory culture showed MSSA and was placed on Doxy. Patient was discharged and readmitted with acute shortness of breath. Chest x-ray shows bilateral lower pleural effusion CT scan negative for PE. 1. Acute hypoxic respiratory failure: Patient is short of breath yesterday night. ABG was done. 7.4 11/26/1947 on room air on patient put on oxygen, most recent pulse ox 95% on 4 L of oxygen per nasal cannula. Patient found very short of breath, with use of accessory muscles therefore transferred to ICU. Coat Presser has been consulted. Labs ordered in the morning. Troponin 0 0.074, 0.096. K3.8 creatinine 1.43. Magnesium 1.8 phosphorus 4.1. 07/11/2019: 2D echo was done. Reported EF 35%. Evidence of diastolic dysfunction. Hypokinesis of septal anterior wall. No VSD or MR or pericardial effusion. Patient had about 4 L of urine output yesterday and 3250 mL urine on 07/09. Patient lost about 17 pounds and I think he achieved his dry weight. Repeat chest x-ray done and reviewed. Mostly it is clear with a small blunting of the left CP angle. Decrease the Lasix drip to 5 mill per hour to stop at 12 noon 2. Acute kidney injury on CKD stage III: BUN/creatinine went up from 16/ 0.39- 27/1.71. Will consult horticultural specialty grower. 3. Acute heart failure with reduced EF, ischemic cardiomyopathy, recent non- STEMI with 100% LAD status post BRIDGER, peripheral arterial disease status post left BKA: Patient started on Lasix drip. On aspirin, Brilinta, carvedilol and lisinopril. Incentive spirometer chest physiotherapy. As mentioned above 3. Recent MSSA in respiratory culture on 07/03/2019: Patient on doxycycline to be completed on 07/11. 4. Possible COPD with mild exacerbation in view of recent MSSA bronchitis: Patient has expiratory rhonchi/wheezing and 25 pack years of smoking: On DuoNeb nebulization. Incentive spirometry K chest physiotherapy and Mucinex bronchopulmonary hygiene. On IV Solu-Medrol. 5 Atypical chest pain most probably musculoskeletal from recent CPR 6 Left atrial thrombus: apixaban Due to prophylaxis: On Eliquis Total time of the visit including total time spent in counseling or coordination of care, (more than 50% of the total time, spent in obtaining medical information from nurses and other ancillary care providers), discussing with consultants, nursing staff, review of labs and imaging is 35 minutes Laboratory Results 07/10/19 08:40: Troponin I 0.096 H 07/10/19 08:40: Sodium 133 L, Potassium 3.8, Chloride 100, Carbon Dioxide 27.0, Anion Gap 6, BUN 16, Creatinine 1.43 H, Estim Creat Clear Calc 68.80, Est GFR (MDRD) Af Amer 66, Est GFR (MDRD) Non-Af 55 L, BUN/Creatinine Ratio 11.2, Glucose 95, Calcium 9.4, Phosphorus 4.1, Magnesium 1.8, Total Bilirubin 0.80, AST 49 H, ALT 57, Alkaline Phosphatase 189 H, Total Creatine Kinase 52, Total Protein 9.0 H, Albumin 3.8, Globulin 5.2 H, Albumin/Globulin Ratio 0.7 L 07/10/19 09:35: WBC 9.4, RBC 4.07 L, Hgb 11.7 L, Hct 35.4 L, MCV 87.0, MCH 28.7, MCHC 33.1, RDW Std Deviation 49.6 H, RDW Coeff of Lawson 15.6 H, Plt Count 449, MPV 10.1, Immature Gran % (Auto) 0.500, Neut % (Auto) 54.1, Lymph % (Auto) 27.6, [place] % (Auto) 10.2 H, Eos % (Auto) 7.0 H, Baso % (Auto) 0.6, Absolute Neuts (auto) 5.1, Absolute Lymphs (auto) 2.59, Nucleated RBC % 0 07/11/19 04:20: WBC 10.6, RBC 4.23 L, Hgb 12.0 L, Hct 36.9 L, MCV 87.2, MCH 28.4, MCHC 32.5, RDW Std Deviation 50.1 H, RDW Coeff of Lawson 15.8 H, Plt Count 5 11 H, MPV 10.2, Immature Gran % (Auto) 0.200, Neut % (Auto) 45.7 L, Lymph % (Auto) 36.5, [place] % (Auto) 9.9, Eos % (Auto) 7.0 H, Baso % (Auto) 0.7, Absolute Neuts (auto) 4.8, Absolute Lymphs (auto) 3.85, Nucleated RBC % 0 07/11/19 04:20: Sodium 134 L, Potassium 4.1, Chloride 99, Carbon Dioxide 29.0, Anion Gap 6, BUN 27 H, Creatinine 1.71 H, Estim Creat Clear Calc 57.53, Est GFR (MDRD) Af Amer 54 L, Est GFR (MDRD) Non-Af 45 L, BUN/Creatinine Ratio 15.8, Glucose 101, Calcium 9.2 Code Visit Inpatient E&M: 76572 Subs Hosp L3
[2019-07-11] MEDS: Aspirin 81 MG TAB.CHEW PO (08:38)
[2019-07-11] MEDS: oxyCODONE 5 MG Tablet 10 MG PO ×3 (08:38→19:20)
--- NOTE | 2019-07-11 09:30 | US_ITS ---
STUDY: RENAL ULTRASOUND - COMPLETE REASON FOR EXAM: Male, 53 years old. RENAL FAILURE TECHNIQUE: Ultrasound evaluation of the kidneys was performed with real-time and static calles-scale imaging. COMPARISON: None. FINDINGS: RIGHT KIDNEY: Normal location of the right kidney, which is normal in size. The right kidney measures 12.3 x 4.7 x 6.1 cm. There is a normal cortex of the right kidney. The renal cortex measures 1.9 cm. There is no right renal mass or cyst. There are no right renal calculi. There is no right hydronephrosis. DISTAL RIGHT URETER: There is non-visualization of the distal right ureter. There is no demonstrated right ureterovesical junction calculus. There is a visualized right ureteral jet. LEFT KIDNEY: Moderate renal atrophy. The left kidney measures 9.1 x 3.3 x 4.2 cm. There is a normal cortex of the left kidney. The renal cortex measures 1.2 cm. There is no left renal mass or cyst. There are no left renal calculi. There is no left hydronephrosis. DISTAL LEFT URETER: There is non-visualization of the distal left ureter. There is no demonstrated left ureterovesical junction calculus. There is a visualized left ureteral jet. I.V.C.: The IVC is patent. BLADDER: The distended urinary bladder has a volume of 180 ml. There is a normal wall thickness of the distended urinary bladder. There is no demonstrated mass within the urinary bladder. There are no demonstrated bladder calculi. Nonvisualized ureteral jets on exam. US/Kidney and Bladder IMPRESSION: Moderate left renal atrophic changes with no evidence of hydronephrosis or mass. Electronically Signed: Antolin Lopez DO at 17:27 EST , Service support ,
[2019-07-11] MEDS: Doxycycline 100 MG CAPSULE PO ×2 (09:58→21:08)
[2019-07-11] MEDS: TICAGRELOR 90 MG TABLET PO ×2 (09:58→21:07)
[2019-07-11] MEDS: guaiFENesin 1,200 MG Tablet 1200 MG PO ×2 (09:58→21:09)
[2019-07-11] MEDS: APIXABAN 5 MG TABLET PO ×2 (09:58→21:10)
[2019-07-11] MEDS: Gabapentin 800 MG Tablet PO ×2 (09:58→21:08)
[2019-07-11 10:48] LABS: Bacteria 0 SEEN /hpf (None Seen); Mucous, Urine 0 SEEN /hpf (<or=2+); Squamous Epithelial Cells - UA 0 SEEN /hpf (0-5); White Blood Cells 0 SEEN /hpf (0-5)
[2019-07-11 10:55] LABS: Color, Urine Yellow (Yellow); Glucose, Dipstick Normal (Normal); Ketone-Dipstick Negative (Negative); Leukocyte Esterase-Dipstick Negative /ul (Negative); Nitrite-Dipstick Negative (Negative); Occult Blood-Urine Negative /ul (Negative); Protein-Dipstick Negative (Negative); Specific Gravity, Urine 1.005 (1.002-1.030); Urine Bilirubin Dipstick Negative (Negative); Urine Clarity Clear (Clear); Urine Urobilinogen Normal (Normal)
[2019-07-11 11:02] LABS: Red Blood Cells-Urine 0-5 SEEN /hpf (0-5)
--- NOTE | 2019-07-11 13:05 | CHAPLAIN ---
Type of Pastoral Visit ___ Initial Visit _x__ Follow-up Visit ___ On-call Visit ___ General Patient Visit ___ Spiritual Assessment ___ Family Conference ___ Bereavement ___ Rapid Response ___ Code Blue ___ Other (describe below) Pastoral Care Referral From _x__ Patient ___ Family ___ Nurse ___ Physician ___ Casting Machine Operator Automatic ___ Acetylene Operator ___ Other (describe below) Sacrament/Intervention _x__ Active listening ___ Anointing ___ Baptist ___ Bereavement ___ Communion ___ Misty exploration ___ _x__ Life review _x__ Prayer ___ Reconciliation ___ Sacrament of Sick _x__ Supportive presence ___ Wedding ___ Other (describe below) Pastoral Comments
[2019-07-11] MEDS: Carvedilol 12.5 MG Tablet PO (13:33)
--- NOTE | 2019-07-11 14:11 | CON.PCM_ITS ---
Consultation - Renal 07/11/19 PCP/ Referring MD: Requesting physician: [] Primary care physician: Dharmesh Alonso MD - History of Present Illness History of Present Illness: The patient is a 53 year old M s/p resuscitation for cardiac arrest about 1 week prior to admission who presented with a chief complaint of acute onset shortness of breath. He was discharged from the hospital 1 day prior to admission after a week course in recovery after stenting of a 100% lesion of the LAD. He was treated for cardiac arrest and with torsade the pointes. 10. BNP is more than 1000 troponin was elevated and he was found to have bilateral pleural effusion on the chest x-ray. He was starting on Lasix IV and then Lasix IV drip. CT was negative for pulmonary emboli. He is currently in the ICU but on room air. The patient currently except for rib pain has no other complaints his Lasix drip was just stopped. - Allergies Allergies: Allergies Penicillins Allergy (Verified 07/08/19 23:23) Swelling adhesive tape Adverse Reaction (Verified 07/08/19 23:23) Rash oxycodone [From OxyContin] Adverse Reaction (Verified 07/08/19 23:23) Other it makes me go nuts - Current Medications Current Medications: Current Medications Acetaminophen (Tylenol) 650 mg PO Q4H PRN PRN PRN Reason: Pain Score 1-3/10 Last Admin: 07/10/19 13:57 Dose: 650 mg Documented by: Albuterol Sulfate (Ventolin Aerosols) 2.5 mg INHALATION Q6H PRN PRN Reason: shortness of breath or wheezing Last Admin: 07/10/19 07:18 Dose: 2.5 mg Documented by: Albuterol/Ipratropium (Duoneb) 3 ml INHALATION Q6H.RT [facility] Last Admin: 07/11/19 13:42 Dose: 3 ml Documented by: Apixaban (Eliquis) 5 mg PO BID [facility] Last Admin: 07/11/19 09:58 Dose: 5 mg Documented by: Aspirin (Aspirin, Baby) 81 mg PO DAILY@0800 [facility] Last Admin: 07/11/19 08:38 Dose: 81 mg Documented by: Atorvastatin Calcium (Lipitor) 80 mg PO QHS [facility] Last Admin: 07/10/19 21:18 Dose: 80 mg Documented by: Carvedilol (Coreg) 6.25 mg PO BID [facility] Doxycycline Monohydrate (Doxycycline) 100 mg PO BID [facility] Last Admin: 07/11/19 09:58 Dose: 100 mg Documented by: Gabapentin (Neurontin) 800 mg PO BID [facility] Last Admin: 07/11/19 09:58 Dose: 800 mg Documented by: Guaifenesin (Mucinex) 1,200 mg PO BID [facility] Last Admin: 07/11/19 09:58 Dose: 1,200 mg Documented by: Hydromorphone HCl (Dilaudid Inj) 0.5 mg IV Q3H PRN PRN PRN Reason: Pain Score 4-10/10 Last Admin: 07/11/19 02:25 Dose: 0.5 mg Documented by: Sodium Chloride () 250 mls @ 15 mls/hr IV .[id number] PRN PRN Reason: Saline Flush Sodium Chloride () 250 mls @ 15 mls/hr IV .[id number] PRN PRN Reason: Additional IVPB Infusion Lisinopril (Zestril) 2.5 mg PO DAILY [facility] Last Admin: 07/11/19 13:43 Dose: Not Given Documented by: Methylprednisolone (Solu-Medrol) 40 mg IV Q8 [facility] Stop: 07/11/19 22:01 Last Admin: 07/11/19 08:38 Dose: 40 mg Documented by: Nitroglycerin (Nitrostat) 0.4 mg SUBLINGUAL Q5M PRN PRN Reason: CARDIAC/CHEST PAIN Nutritional Formula (Lactose Free) (Ensure Enlive) 120 ml PO 4X/DAY [facility] Last Admin: 07/11/19 13:30 Dose: 120 ml Documented by: Ondansetron HCl (Zofran) 4 mg IV Q6H PRN PRN PRN Reason: nausea, emesis Oxycodone HCl (Oxyir) 10 mg PO Q4H PRN PRN PRN Reason: Pain Score 4-10/10 Last Admin: 07/11/19 08:38 Dose: 10 mg Documented by: Sodium Chloride () 10 - 40 ml IV UD PRN PRN Reason: SALINE FLUSH Last Admin: 07/11/19 13:30 Dose: 10 ml Documented by: Ticagrelor (Brilinta) 90 mg PO BID [facility] Last Admin: 07/11/19 09:58 Dose: 90 mg Documented by: - Past Medical History Past Medical History (Chronic Problems): Chronic Problems (Last Updated 07/09/19 @ 10:37 by Kim Dodd) History of sudden cardiac arrest successfully resuscitated (Chronic) Chronic renal failure, stage 2 (mild) (Chronic) Depression (Chronic) History of carotid endarterectomy (Chronic) 04/22/19 at [facility] History of ischemic left MCA stroke (Chronic) 04/17/19 Debility (Chronic) due to L MCA stroke 04/17/19 Normochromic normocytic anemia (Chronic) LBBB (left bundle branch block) (Chronic) Dilated cardiomyopathy (Chronic) 27% EF on ECHO 02/18/19........non-ischemic. 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 Left BKA for severe peripheral vascular disease with nonhealing wounds, cellulitis and osteomyelitis. Multiple stents in both lower extremities secondary to peripheral vascular disease. Multiple debridements of nonhealing wounds of the left lower extremity. - Social History Smoking Status: Former smoker - Family History Maternal Family History: Family History (Last Reviewed 07/03/19 @ 01:17 by Nish Peace MD) Other CVA (cerebral vascular accident) Cancer Heart disease History Items: Cancer, Diabetes, Heart Disease, Renal Disease Paternal Family History: Family History (Last Reviewed 07/03/19 @ 01:17 by Nish Peace MD) Other CVA (cerebral vascular accident) Cancer Heart disease History Items: Cancer Review of Systems Constitutional: Denies: Chills, Fever, Weight Change HEENT: Denies: Head Aches, Sinus Congestion, Sinus Drainage Cardiovascular: Denies: Chest Pain, Palpitations Respiratory: Denies: Cough, Shortness of breath at rest, Sputum production Gastrointestinal: Denies: Abdominal Pain, Nausea, Vomiting Genitourinary: Denies: Dysuria Musculoskeletal: Denies: Joint Pain, Joint Tenderness Skin: Denies: Rash, Wounds Neurological: Denies: Numbness, Tingling, Focal weakness Psychiatric: Denies: Anxiety, Depression, Homicidal Ideations, Suicidal Ideations Hematologic/ Lymphatic: Denies: Easy Bruising, Easy Bleeding Patient Problems: Active and Suspected Problems (Last Updated 07/09/19 @ 10:37 by Kim Dodd) Back pain (Acute) CHF (congestive heart failure) (Acute) - Physical Exam Vitals/I&O's: Vital Signs Temp Pulse Resp BP Pulse Ox 97.3 F L 97 13 99/58 L 96 07/11/19 14:00 07/11/19 14:00 07/11/19 14:00 07/11/19 14:00 07/11/19 14:00 Oxygen Flow Rate (L/min) 1 Oxygen Delivery Method Room Air Weight: 78.7 kg Body Mass Index (BMI) 23.0 Finger Stick Blood Glucose 103 Intake and Output for Last 24 Hours 07/09/19 07/10/19 07/11/19 23:59 23:59 23:59 Intake Total 720 / 720 1820 / 1820 784.93 / 784.93 Output Total 3250 / 3250 3950 / 3950 1350 / 1350 Balance -2530 / -2530 -2130 / -2130 -565.07 / -565.07 General: Alert, Oriented x3, Cooperative HEENT: Atraumatic, PERRLA, EOMI, Normocephalic Neck: Supple, No JVD, Negative Carotid Bruits Lungs: Clear to auscultation, Normal air movement Cardiovascular: Regular rate, No murmurs Abdomen: Bowel Sounds Present, Soft, Non Tender Extremities: No edema, Capillary Refill Less than 3 Seconds Skin: No rashes, No breakdown Musculoskeletal: No Tenderness to Palpation of Joints or Extremities Neurological: Cranial nerves II-XII grossly intact Psych/Mental Status: Normal Affect, Appropriate Comment: piper og Laboratory Results 07/10/19 10:35: Urine Color Yellow, Urine Clarity Clear, Urine pH 7.0, Ur Specific [place] 1.005, Urine Protein Negative, Urine Glucose (UA) Normal, Urine Ketones Negative, Urine Occult Blood Negative, Urine Nitrite Negative, Urine Bilirubin Negative, Urine Urobilinogen Normal, Ur Leukocyte Esterase Negative, Urine RBC 0-5 SEEN, Urine WBC 0 SEEN, Ur Squamous Epith Cells 0 SEEN, Urine Bacteria 0 SEEN, Urine Mucus 0 SEEN 07/11/19 04:20: WBC 10.6, RBC 4.23 L, Hgb 12.0 L, Hct 36.9 L, MCV 87.2, MCH 28.4, MCHC 32.5, RDW Std Deviation 50.1 H, RDW Coeff of [place] 15.8 H, Plt Count 511 H, MPV 10.2, Immature Gran % (Auto) 0.200, Neut % (Auto) 45.7 L, Lymph % (Auto) 36.5, [place] % (Auto) 9.9, Eos % (Auto) 7.0 H, Baso % (Auto) 0.7, Absolute Neuts (auto) 4.8, Absolute Lymphs (auto) 3.85, Nucleated RBC % 0 07/11/19 04:20: Sodium 134 L, Potassium 4.1, Chloride 99, Carbon Dioxide 29.0, Anion Gap 6, BUN 27 H, Creatinine 1.71 H, Estim Creat Clear Calc 57.53, Est GFR (MDRD) Af Amer 54 L, Est GFR (MDRD) Non-Af 45 L, BUN/Creatinine Ratio 15.8, Glucose 101, Calcium 9.2 Current Medications Acetaminophen (Tylenol) 650 mg PO Q4H PRN PRN PRN Reason: Pain Score 1-3/10 Last Admin: 07/10/19 13:57 Dose: 650 mg Documented by: Albuterol Sulfate (Ventolin Aerosols) 2.5 mg INHALATION Q6H PRN PRN Reason: shortness of breath or wheezing Last Admin: 07/10/19 07:18 Dose: 2.5 mg Documented by: Albuterol/Ipratropium (Duoneb) 3 ml INHALATION Q6H.RT [facility] Last Admin: 07/11/19 13:42 Dose: 3 ml Documented by: Apixaban (Eliquis) 5 mg PO BID [facility] Last Admin: 07/11/19 09:58 Dose: 5 mg Documented by: Aspirin (Aspirin, Baby) 81 mg PO DAILY@0800 [facility] Last Admin: 07/11/19 08:38 Dose: 81 mg Documented by: Atorvastatin Calcium (Lipitor) 80 mg PO QHS [facility] Last Admin: 07/10/19 21:18 Dose: 80 mg Documented by: Carvedilol (Coreg) 6.25 mg PO BID [facility] Doxycycline Monohydrate (Doxycycline) 100 mg PO BID [facility] Last Admin: 07/11/19 09:58 Dose: 100 mg Documented by: Gabapentin (Neurontin) 800 mg PO BID [facility] Last Admin: 07/11/19 09:58 Dose: 800 mg Documented by: Guaifenesin (Mucinex) 1,200 mg PO BID [facility] Last Admin: 07/11/19 09:58 Dose: 1,200 mg Documented by: Hydromorphone HCl (Dilaudid Inj) 0.5 mg IV Q3H PRN PRN PRN Reason: Pain Score 4-10/10 Last Admin: 07/11/19 02:25 Dose: 0.5 mg Documented by: Sodium Chloride () 250 mls @ 15 mls/hr IV .[id number] PRN PRN Reason: Saline Flush Sodium Chloride () 250 mls @ 15 mls/hr IV .[id number] PRN PRN Reason: Additional IVPB Infusion Lisinopril (Zestril) 2.5 mg PO DAILY [facility] Last Admin: 07/11/19 13:43 Dose: Not Given Documented by: Methylprednisolone (Solu-Medrol) 40 mg IV Q8 [facility] Stop: 07/11/19 22:01 Last Admin: 07/11/19 08:38 Dose: 40 mg Documented by: Nitroglycerin (Nitrostat) 0.4 mg SUBLINGUAL Q5M PRN PRN Reason: CARDIAC/CHEST PAIN Nutritional Formula (Lactose Free) (Ensure Enlive) 120 ml PO 4X/DAY [facility] Last Admin: 07/11/19 13:30 Dose: 120 ml Documented by: Ondansetron HCl (Zofran) 4 mg IV Q6H PRN PRN PRN Reason: nausea, emesis Oxycodone HCl (Oxyir) 10 mg PO Q4H PRN PRN PRN Reason: Pain Score 4-10/10 Last Admin: 07/11/19 08:38 Dose: 10 mg Documented by: Sodium Chloride () 10 - 40 ml IV UD PRN PRN Reason: SALINE FLUSH Last Admin: 07/11/19 13:30 Dose: 10 ml Documented by: Ticagrelor (Brilinta) 90 mg PO BID [facility] Last Admin: 07/11/19 09:58 Dose: 90 mg Documented by: Assessment/Plan All Active Problems (Last Updated 07/09/19 @ 10:37 by Kim Dodd) History of coronary artery stent placement (Acute) Atherosclerosis of coronary artery of [place] heart without angina pectoris (Acute) Cardiac arrest (Acute) Back pain (Acute) CHF (congestive heart failure) (Acute) History of left heart catheterization (LHC) (Resolved ~09/14/16) History of cardiac radiofrequency ablation (Resolved ~02/25/13) JUAN (acute kidney injury) (Resolved) Chronic osteomyelitis of left tibia (Resolved) Dermatitis (Resolved) Ischemic ulcer of right foot (Resolved) Osteomyelitis of left lower extremity (Resolved) Thrush, oral (Resolved) Ulceration of below knee amputation stump (Resolved) Wound, surgical, nonhealing (Resolved) JUAN prerenal CRS CKD 3 baseline 1.2-1.7 urinary retention HF EF 35 % lasix drip stopped can po lasix bid can resume lisinopril urology to see patient urinary retention avoid nephrotoxins Blood pressure is lower cutdown 03 125 p.o. twice daily. d/w patient and dr. Bruno
--- NOTE | 2019-07-11 17:19 | PN.CARD_ITS ---
Subjectve: Patient feels much better today. Shortness of breath is improved. However his creatinine has gone up to 1.7. He has been started on methylprednisolone in addition to his duo nebs for possible COPD exacerbation in addition to decompensated CHF. His Lasix drip has been discontinued overall patient is feeling significantly better than yesterday. He has been transferred from the ICU to the PCU. Objective: Vital Signs Temp Pulse Resp BP Pulse Ox 97.4 F L 81 12 126/92 H 95 07/11/19 16:00 07/11/19 16:00 07/11/19 16:00 07/11/19 16:31 07/11/19 16:00 Oxygen Flow Rate (L/min) 1 Oxygen Delivery Method Room Air Weight: 173 lb 8.061 oz Body Mass Index (BMI) 23.0 Finger Stick Blood Glucose 103 Intake and Output for Last 24 Hours 07/09/19 07/10/19 07/11/19 23:59 23:59 23:59 Intake Total 720 / 720 1820 / 1820 784.93 / 784.93 Output Total 3250 / 3250 3950 / 3950 1350 / 1350 Balance -2530 / -2530 -2130 / -2130 -565.07 / -565.07 General: Awake, Alert, Oriented x 3 HEENT: Atraumatic Oral: Moist Mucosa Neck: Supple Lungs: Expiratory Wheezes-Fish, - - Coarse breath sounds bilaterally. Abdomen: Soft Extremities: No edema, - - left below-knee amputation. Skin: No Rashes Psych/Mental Status: Appropriate 07/10/19 10:35: Urine Color Yellow, Urine Clarity Clear, Urine pH 7.0, Ur Specific [place] 1.005, Urine Protein Negative, Urine Glucose (UA) Normal, Urine Ketones Negative, Urine Occult Blood Negative, Urine Nitrite Negative, Urine Bilirubin Negative, Urine Urobilinogen Normal, Ur Leukocyte Esterase Negative, Urine RBC 0-5 SEEN, Urine WBC 0 SEEN 07/11/19 04:20: WBC 10.6, RBC 4.23 L, Hgb 12.0 L, Hct 36.9 L, MCV 87.2, MCH 28.4, MCHC 32.5, Plt Count 511 H, MPV 10.2, Immature Gran % (Auto) 0.200, Neut % (Auto) 45.7 L, Lymph % (Auto) 36.5, [place] % (Auto) 9.9, Eos % (Auto) 7.0 H, Baso % (Auto) 0.7, Absolute Neuts (auto) 4.8, Nucleated RBC % 0 07/11/19 04:20: Sodium 134 L, Potassium 4.1, Chloride 99, Carbon Dioxide 29.0, Anion Gap 6, BUN 27 H, Creatinine 1.71 H, Est GFR (MDRD) Af Amer 54 L, Est GFR (MDRD) Non-Af 45 L, BUN/Creatinine Ratio 15.8, Glucose 101, Calcium 9.2 Rhythm: EKG: ECHO: Stress Test: Cardiac Cath: PCI: CT Surgery: Holter monitor: EPS: PPM: CXR: Chest CT Scan: Medical Necessity - Tobacco Use Smoking Status: Former smoker Assessment/Plan 1. Shortness of breath: Probably a combination of CHF and COPD. Agree with holding his Lasix since his creatinine has gone up and patient does not appear to be volume overloaded at this time. Will be reasonable to hold p.o. Lasix also for 1 or 2 days and then started at 40 mg p.o. daily. Due to hypotension his Coreg has been decreased to 6.25 mg p.o. twice daily. Will hold lisinopril due to low blood pressure and also since his creatinine has increased now. 2. Coronary artery disease: Continue present medications including dual antiplatelet therapy. 3. Elevated troponin: Appears to be trending down from his recent AK. 4. LV dysfunction: Continue beta-m[place]. We will try to restart his ALIZE inhibitor prior to discharge. He may need reevaluation of his LVEF 3 months from his PCI to see if he requires an AICD.
[2019-07-11] MEDS: Carvedilol 6.25 MG Tablet PO (21:08)
[2019-07-11] MEDS: Atorvastatin Calcium 80 MG Tablet PO (21:08)
[2019-07-12] VITALS (10 sets, daily range): BP systolic 115–122; BP diastolic 59–76; PULSE 61–102; RESP 18–20; TEMP 36.4–36.9; O2SAT 92–96
[2019-07-12] MEDS: Ipratropium/Albuterol Sulfate 3 ML AMPUL.NEB INHALATION ×3 (01:39→13:51)
[2019-07-12] MEDS: Phenol/Sodium Phenolate 180ML 5 SPRAY MM (02:02)
[2019-07-12] MEDS: oxyCODONE 5 MG Tablet 10 MG PO ×2 (03:47→08:07)
[2019-07-12] MEDS: Albuterol 2.5 MG/3 ML VIAL.NEB. INHALATION (05:17)
[2019-07-12 05:54] LABS: Absolute Lymphocyte Count 1.41 X10^3/uL (0.83-4.51); Absolute Neutrophil Count 13.6 X10^3/uL (2.0-7.7); Basophil# 0.03 X10^3/uL; Basophil% 0.2 % (0-1); Hematocrit 34.3 % (40-54); Hemoglobin 11.5 g/dL (13.0-16.5); Lymphocyte # 1.41 X10^3/ul (4.0); Mean Corp Hgb Conc 33.5 g/dL (32-36); Mean Corpuscular Hgb 28.7 pg (27.0-32.0); Mean Corpuscular Volume 85.5 fL (80-94); Mean Platelet Vol. 9.9 fl (6.2-12.0); Monocyte# 0.54 X10^3/uL; Monocyte% 3.5 % (0-10); NRBC Flagged by Analyzer 0 % (0-5); Neutrophil # 13.55 X10^3/uL (2.7-7.7); Neutrophil % 86.5 % (47-70); Platelet Count 534 K/mm3 (150-450); RBC Distribution Width CV 15.2 % (11.6-14.6); RBC Distribution Width SD 47.7 fl (35.1-43.9); Red Blood Count 4.01 M/mm3 (4.6-6.2); White Blood Count 15.7 K/mm3 (4.4-11.0)
[2019-07-12 06:14] LABS: Anion Gap 9 (5-15); BUN 33 mg/dL (7-18); BUN/Creat Ratio 21.3 RATIO (10-20); Calcium,Total 9.2 mg/dL (8.5-10.1); Chloride 98 mmol/L (98-107); Creatinine, Serum 1.55 mg/dL (0.70-1.30); EST Glomerular Filtration Rate 50 mL/min (>60); Est Glom Filt Rate - Afr Amer 60 mL/min (>60); Estimated Creatinine Clearance 60.81 ml/min; Glucose 144 mg/dL (74-106); Potassium 4.1 mmol/L (3.5-5.1); Sodium Level 130 mmol/L (136-145)
[2019-07-12] MEDS: Aspirin 81 MG TAB.CHEW PO (08:00)
[2019-07-12] MEDS: Lisinopril 2.5 MG Tablet PO (08:00)
[2019-07-12] MEDS: APIXABAN 5 MG TABLET PO (08:00)
[2019-07-12] MEDS: TICAGRELOR 90 MG TABLET PO (08:01)
[2019-07-12] MEDS: Carvedilol 6.25 MG Tablet PO (08:01)
[2019-07-12] MEDS: Gabapentin 800 MG Tablet PO (08:01)
[2019-07-12] MEDS: Doxycycline 100 MG CAPSULE PO (08:01)
[2019-07-12] MEDS: guaiFENesin 600 MG Tablet PO (08:02)
--- NOTE | 2019-07-12 10:31 | PN.CARD_ITS ---
Subjectve: Patient doing better than when he was admitted however still unable to lay down completely flat from a respiratory standpoint. The patient was unable to lay down flat prior to his myocardial infarction due to his previous lower extremity amputation however on this admission he was unable to lay down flat due to orthopnea and PND. Repeat echocardiogram shows an EF of 35%, unable to quantitate RVSP. For some reason the patient is not on diuretic therapy prior to his discharge or during his admission here as of this writing. Chest x-ray shows slowly resolving left lower pleural effusion. Objective: Vital Signs Temp Pulse Resp BP Pulse Ox 97.5 F L 82 18 122/59 H 96 07/12/19 06:00 07/12/19 07:14 07/12/19 07:14 07/12/19 06:00 07/12/19 07:14 Oxygen Flow Rate (L/min) 1 Oxygen Delivery Method Room Air Weight: 171 lb 15.369 oz Body Mass Index (BMI) 23.0 Finger Stick Blood Glucose 103 Intake and Output for Last 24 Hours 07/10/19 07/11/19 07/12/19 23:59 23:59 23:59 Intake Total 1820 / 1820 1334.93 / 1334.93 300 / 300 Output Total 3950 / 3950 1725 / 1725 350 / 350 Balance -2130 / -2130 -390.07 / -390.07 -50 / -50 General: Awake, Alert, Oriented x 3 HEENT: PERRL, EOMI, Sclera Non Icteric Neck: Supple, Good ROM, No Lymph Node Enlargement Lungs: Clear to auscultation Cardiovascular: Regular Rhythm, Normal S1, Normal S2, No Murmurs, No Rubs, No Gallops Vascular: No Carotid Bruits, Normal Femoral Pulses, Normal Radial Pulses, Normal Dorsalis Pedal Pulse, Normal Posterior Tibial Pulses Abdomen: Bowel Sounds Present, Soft, Non Tender, No HSM, No Organomegaly Extremities: No Cyanosis, No Clubbing, No edema Neurological: No Focal Motor or Sensory Deficit 07/10/19 10:35: Urine Color Yellow, Urine Clarity Clear, Urine pH 7.0, Ur Specific [place] 1.005, Urine Protein Negative, Urine Glucose (UA) Normal, Urine Ketones Negative, Urine Occult Blood Negative, Urine Nitrite Negative, Urine Bilirubin Negative, Urine Urobilinogen Normal, Ur Leukocyte Esterase Negative, Urine RBC 0-5 SEEN, Urine WBC 0 SEEN 07/12/19 05:35: WBC 15.7 H, RBC 4.01 L, Hgb 11.5 L, Hct 34.3 L, MCV 85.5, MCH 28.7, MCHC 33.5, Plt Count 534 H, MPV 9.9, Immature Gran % (Auto) 0.800, Neut % (Auto) 86.5 H, Lymph % (Auto) 9.0 L, [place] % (Auto) 3.5, Eos % (Auto) 0.0, Baso % (Auto) 0.2, Absolute Neuts (auto) 13.6 H, Nucleated RBC % 0 07/12/19 05:35: Sodium 130 L, Potassium 4.1, Chloride 98, Carbon Dioxide 23.0, Anion Gap 9, BUN 33 H, Creatinine 1.55 H, Est GFR (MDRD) Af Amer 60, Est GFR (MDRD) Non-Af 50 L, BUN/Creatinine Ratio 21.3 H, Glucose 144 H, Calcium 9.2 Rhythm: EKG: ECHO: Stress Test: Cardiac Cath: PCI: CT Surgery: Holter monitor: EPS: PPM: CXR: Chest CT Scan: Medical Necessity - Tobacco Use Smoking Status: Former smoker Assessment/Plan 1. Ischemic cardiomyopathy: The patient presented with cardiac arrest requiring emergent intubation, CPR, emergent catheterization which demonstrated occluded LAD. This was superimposed on a clotting disorder for which he was taking Eliquis. Patient underwent emergent angioplasty and stenting to his LAD. Unable to place entry to balloon pump due to vasculopathy. The patient was subsequently medically managed and eventually discharged home, then returned with orthopnea, PND and shortness of breath. Chest x-ray demonstrated left pleural effusion, and he was treated with diuretic therapy. Since admission his shortness of breath has improved although he is still unable to lay down completely flat from a respiratory standpoint. I recommended that we start him on Lasix 40 mg p.o. daily after we give him 40 mg of IV Lasix x1 now. In addition I recommend discontinuation of his lisinopril as it is such a low dose and is most likely not appreciably reducing his afterload. Recommend starting him on Cozaar 25 mg p.o. daily. The patient's systolic pressure should be around 100-120 given his LV dysfunction. We will hold off on adding Aldactone at this time given his hyponatremia at baseline. Would recommend continuing a 1500 cc fluid restriction. We will continue his baby aspirin, Brilinta, and Coreg. Patient may require switching from Brilinta to Plavix should his shortness of breath be related to the side effect of Brilinta going forward. 2. Clotting disorder: The patient require lifelong anticoagulation therapy. He has been placed on Eliquis. No indication for repeat catheterization at this time. 3. Upper lipidemia: Continue Lipitor therapy. 4. Would recommend evaluating the patient for possible half-way facility or TCU prior to discharge home. 5. Thank you very much for the opportunity to participate in the cardiac care of your patient. Code Visit Inpatient E&M: 81532 Subs Hosp L2
--- NOTE | 2019-07-12 11:10 | DCINST_ITS ---
- Discharge Diagnoses Current Active Problems: Current Active and Chronic Problems (Last Updated 07/09/19 @ 10:37 by Kim Dodd) Back pain (Acute) CHF (congestive heart failure) (Acute) History of sudden cardiac arrest successfully resuscitated (Chronic) You will use the following diet at home:: Cardiac, Fluid restricted (specify 2000 mls, 1500 mls) - 1500 ml Your food should be the consistency of: Regular Discharge Activity: May Not Drive Weight Bearing Status: Weight bearing as tolerated Call your doctor if you observe: Fever of 101 or Higher, Numbness or Tingling, Change in Color, Inability to urinate, Inability to have a bowel movement, Shortness of breath, Fainting spells, Swelling in the ankles, Chest pain, Increased palpitations (irregular heartbeat), Calf discomfort, Uncontrolled pain Additional Instructions: BMP in 1 week 07/18/2019 follow-up with Dr. Stafford Allergies/Adverse Reactions: Allergies Penicillins Allergy (Verified 07/08/19 23:23) Swelling adhesive tape Adverse Reaction (Verified 07/08/19 23:23) Rash oxycodone [From OxyContin] Adverse Reaction (Verified 07/08/19 23:23) Other it makes me go nuts Medications to take at Discharge Apixaban [Eliquis] 5 mg PO BID 04/23/19 Acetaminophen [Tylenol Tablet] 650 mg PO Q4H PRN PRN tab 04/29/19 gabapentin 800 mg tablet 800 mg PO BID #60 tab 05/23/19 Aspirin [Aspirin, Baby] 81 mg PO DAILY@0800 tab.chew 07/07/19 Atorvastatin Calcium [Lipitor] 80 mg PO QHS #30 tab 07/07/19 Ticagrelor [Brilinta] 90 mg PO BID #60 tab 07/07/19 albuterol sulfate 2.5 mg INHALATION Q6H PRN #75 ml 07/08/19 nebulizer accessories See Rx Instructions .ROUTE .MEDSUPPLY #2 ea 07/08/19 Carvedilol [Coreg (Beta Fco)] 6.25 mg PO BID #60 tab 07/12/19 Guaifenesin [Mucinex] 1,200 mg PO BID #14 tbmp.12hr 07/12/19 Lisinopril [Zestril] 2.5 mg PO DAILY #30 tab 07/12/19 Prednisone [Deltasone] 40 mg PO DAILY 5 Days #10 tab 07/12/19 Torsemide 10 mg PO DAILY #30 tab 07/12/19 The following prescriptions were given: Prednisone [Deltasone] 40 mg PO DAILY 5 Days #10 tab Transmission Status: Pending to [id number] Guaifenesin [Mucinex] 1,200 mg PO BID #14 tbmp.12hr Transmission Status: Pending to [id number] Torsemide 10 mg PO DAILY #30 tab Transmission Status: Pending to [id number] Primary Care Physician: Dharmesh Alonso MD [Primary Care Provider] - Test Results: Test results from this visit will be discussed in further detail at your follow- up appointment, if applicable. Please Follow Up With: Dharmesh Alonso MD When: in 1 week with BMP Please Follow Up With: Adriel Stafford MD When: in 1 week with BMP Please Follow Up With: Christie Tate MD When: IN 3-4 WEEK
[2019-07-12] MEDS: Furosemide 40 MG/4 ML Vial IV (11:12)
--- NOTE | 2019-07-12 11:17 | PCM.DC.SUM ---
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) at [facility] for severe PVD with non-healing wounds and recurrent infections LLE FPC current use of anticoagulant (Chronic) Patient is on Coumadin for PE Peripheral arterial disease (Chronic) BL LE's....multiple stents in both legs Hypercoagulable state (Chronic) Positive lupus anticoagulant, positive anticardiolipin anti B IgM, and increased homocystine level Hospital Course and Treatment Operations: None Summary of Care Provided: [] The patient is a 53 year old M with pmhx of lupus anticoagulant, systolic CHF, EF 30%, ischemic CM, prior smoker, old LBBB, 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 Had cardiac cath at that time found proximal LAD 100% stenosis, underwent thrombectomy. Echo EF 30% with LV apical thrombus. Respiratory culture showed MSSA and was placed on Doxy. Patient was discharged and readmitted with acute shortness of breath. Chest x-ray shows bilateral lower pleural effusion CT scan negative for PE. 1. Acute hypoxic respiratory failure: Patient is short of breath yesterday night. ABG was done. 7.4 11/26/1947 on room air on patient put on oxygen, most recent pulse ox 95% on 4 L of oxygen per nasal cannula. Patient found very short of breath, with use of accessory muscles therefore transferred to ICU. Generator Repairer has been consulted. Labs ordered in the morning. Troponin 0 0.074, 0.096. K3.8 creatinine 1.43. Magnesium 1.8 phosphorus 4.1. 2D echo was done. Reported EF 35%. Evidence of diastolic dysfunction. Hypokinesis of septal anterior wall. No VSD or MR or pericardial effusion. Net -5 L negative fluid balance since admission. Patient lost about 19 pounds and I think he achieved his dry weight. Repeat chest x-ray done and reviewed. Lasix drip was changed to oral Lasix. Patient is being discharged on torsemide 10 mg daily. BMP in 1 week and follow-up with PCP and automotive maintenance technician. Lisinopril is discontinued because of worsening dysfunction and low-dose 2.5 mg not able to meet the goal of afterload reduction. Consider Cozaar 25 mg daily when patient kidney function is on baseline as an outpatient. Discussed with automotive maintenance technician 2. Acute kidney injury on CKD stage III with urinary retention: BUN/creatinine went up from 16/1 0.39-27/1.71; 33/1.55. Kidney function improved. Follow-up with automotive maintenance technician. Discussed with the urologist. Started on Flomax 0.4 mg daily. Follow-up with urologist from in 2 weeks. Patient had intermittent urine retention about 300 mL. 3. Acute heart failure with reduced EF, ischemic cardiomyopathy, recent non-STEMI with 100% LAD status post BRIDGER, peripheral arterial disease status post left BKA: Patient started on Lasix drip. On aspirin, Brilinta, and carvedilol. Patient had recent cardiac arrest with acute OR, non-STEMI on 07/03/2019. He had subsequent PCI done on possible LAD 100% occlusion. As mentioned above 3. Recent MSSA in respiratory culture on 07/03/2019: Doxycycline completed on 07/11. 4. Possible COPD with mild exacerbation in view of recent MSSA bronchitis: Patient has expiratory rhonchi/wheezing and 25 pack years of smoking: On DuoNeb nebulization. Incentive spirometry K chest physiotherapy and Mucinex bronchopulmonary hygiene. On IV Solu-Medrol. Patient respiratory symptoms, wheezing, rhonchi and mucus improved on Solu-Medrol, incentive spirometry and chest physiotherapy. Continue. Discharged on prednisone 40 mg daily for 5 days, pulse therapy 5 Atypical chest pain most probably musculoskeletal from recent CPR 6 Left atrial thrombus: apixaban Due to prophylaxis: On Eliquis Discharge medication reconciliation done. Discharge follow-up instructions completed. Discharge process discussed with the patient and all questions were answered to patient's satisfaction. Total time spent, exact 35 minutes on discharge meds reconciliation, examination, coordination of care with nurses and ancillary staff, review of imaging and blood test and discussion with the patient on follow-up instructions Patient Problems: Active and Suspected Problems (Last Updated 07/09/19 @ 10:37 by Kim Dodd) Back pain (Acute) CHF (congestive heart failure) (Acute) Subjective: Patient sitting in the chair. Not in respiratory distress. No tachypnea or hypoxia. Heart rate and blood pressure control on baseline. Telemetry reviewed. Normal sinus rhythm with PVCs. Objective: General: Alert, Oriented x3, Cooperative HEENT: Atraumatic, PERRLA, EOMI, Normocephalic Neck: Supple, No JVD, Negative Carotid Bruits Lungs: Air entry diminished in bilateral lung bases., Crepitations and rhonchi are much cleared. Patient able to bring out phlegm. Continue with spirometry. Cardiovascular: Regular rate, No murmurs Abdomen: Bowel Sounds Present, Soft, Non Tender, Non-Distended Extremities: No edema, Capillary Refill Less than 3 Seconds Skin: No rashes, No breakdown Musculoskeletal: No Tenderness to Palpation of Joints or Extremities, Arthritic Changes, - - Left below-knee amputation Neurological: Cranial nerves II-XII grossly intact, Neuro grossly intact Psych/Mental Status: Normal Affect, Appropriate - Physical Exam Vitals/I&O's: Vital Signs Temp Pulse Resp BP Pulse Ox 97.9 F 81 20 H 118/69 92 07/12/19 11:13 07/12/19 11:13 07/12/19 11:13 07/12/19 11:13 07/12/19 11:13 Oxygen Flow Rate (L/min) 1 Oxygen Delivery Method Room Air Weight: 171 lb 15.369 oz Body Mass Index (BMI) 23.0 Finger Stick Blood Glucose 103 Intake and Output for Last 24 Hours 07/10/19 07/11/19 07/12/19 23:59 23:59 23:59 Intake Total 1820 / 1820 1334.93 / 1334.93 300 / 300 Output Total 3950 / 3950 1725 / 1725 350 / 350 Balance -2130 / -2130 -390.07 / -390.07 -50 / -50 Laboratory Results 07/12/19 05:35: WBC 15.7 H, RBC 4.01 L, Hgb 11.5 L, Hct 34.3 L, MCV 85.5, MCH 28.7, MCHC 33.5, RDW Std Deviation 47.7 H, RDW Coeff of Lawson 15.2 H, Plt Count 534 H, MPV 9.9, Immature Gran % (Auto) 0.800, Neut % (Auto) 86.5 H, Lymph % (Auto) 9.0 L, [place] % (Auto) 3.5, Eos % (Auto) 0.0, Baso % (Auto) 0.2, Absolute Neuts (auto) 13.6 H, Absolute Lymphs (auto) 1.41, Nucleated RBC % 0 07/12/19 05:35: Sodium 130 L, Potassium 4.1, Chloride 98, Carbon Dioxide 23.0, Anion Gap 9, BUN 33 H, Creatinine 1.55 H, Estim Creat Clear Calc 60.81, Est GFR (MDRD) Af Amer 60, Est GFR (MDRD) Non-Af 50 L, BUN/Creatinine Ratio 21.3 H, Glucose 144 H, Calcium 9.2 Current Medications Acetaminophen (Tylenol) 650 mg PO Q4H PRN PRN PRN Reason: Pain Score 1-3/10 Last Admin: 07/10/19 13:57 Dose: 650 mg Documented by: Albuterol Sulfate (Ventolin Aerosols) 2.5 mg INHALATION Q6H PRN PRN Reason: shortness of breath or wheezing Last Admin: 07/12/19 05:17 Dose: 2.5 mg Documented by: Albuterol/Ipratropium (Duoneb) 3 ml INHALATION Q6H.RT [facility] Last Admin: 07/12/19 07:13 Dose: 3 ml Documented by: Apixaban (Eliquis) 5 mg PO BID [facility] Last Admin: 07/12/19 08:00 Dose: 5 mg Documented by: Aspirin (Aspirin, Baby) 81 mg PO DAILY@0800 [facility] Last Admin: 07/12/19 08:00 Dose: 81 mg Documented by: Atorvastatin Calcium (Lipitor) 80 mg PO QHS [facility] Last Admin: 07/11/19 21:08 Dose: 80 mg Documented by: Carvedilol (Coreg) 6.25 mg PO BID [facility] Last Admin: 07/12/19 08:01 Dose: 6.25 mg Documented by: Furosemide (Lasix) 40 mg PO DAILY [facility] Gabapentin (Neurontin) 800 mg PO BID [facility] Last Admin: 07/12/19 08:01 Dose: 800 mg Documented by: Guaifenesin (Mucinex) 600 mg PO BID [facility] Last Admin: 07/12/19 08:02 Dose: 600 mg Documented by: Guaifenesin (Robitussin) 10 ml PO Q4H PRN PRN PRN Reason: COUGH Hydromorphone HCl (Dilaudid Inj) 0.5 mg IV Q3H PRN PRN PRN Reason: Pain Score 4-10/10 Last Admin: 07/11/19 02:25 Dose: 0.5 mg Documented by: Sodium Chloride () 250 mls @ 15 mls/hr IV .[id number] PRN PRN Reason: Saline Flush Sodium Chloride () 250 mls @ 15 mls/hr IV .[id number] PRN PRN Reason: Additional IVPB Infusion Nitroglycerin (Nitrostat) 0.4 mg SUBLINGUAL Q5M PRN PRN Reason: CARDIAC/CHEST PAIN Nutritional Formula (Lactose Free) (Ensure Enlive) 120 ml PO 4X/DAY [facility] Last Admin: 07/12/19 08:00 Dose: 120 ml Documented by: Ondansetron HCl (Zofran) 4 mg IV Q6H PRN PRN PRN Reason: nausea, emesis Oxycodone HCl (Oxyir) 10 mg PO Q4H PRN PRN PRN Reason: Pain Score 4-10/10 Last Admin: 07/12/19 08:07 Dose: 10 mg Documented by: Phenol/Menthol (Chloraseptic (Bkc)) 5 spray MM Q2H PRN PRN PRN Reason: SORE THROAT Last Admin: 07/12/19 02:02 Dose: 5 spray Documented by: Sodium Chloride () 10 - 40 ml IV UD PRN PRN Reason: SALINE FLUSH Last Admin: 07/11/19 21:10 Dose: 10 ml Documented by: Throat Lozenges (Cepacol Sore Throat Lozenge) 2 lozenge MUCOUS MEM Q2H PRN PRN PRN Reason: sore throat, cough Ticagrelor (Brilinta) 90 mg PO BID [facility] Last Admin: 07/12/19 08:01 Dose: 90 mg Documented by: Discharge Activity: May Not Drive Weight Bearing Status: Weight bearing as tolerated Call your doctor if you observe: Fever of 101 or Higher, Numbness or Tingling, Change in Color, Inability to urinate, Inability to have a bowel movement, Shortness of breath, Fainting spells, Swelling in the ankles, Chest pain, Increased palpitations (irregular heartbeat), Calf discomfort, Uncontrolled pain Home Medications: Medications to take at Discharge Apixaban [Eliquis] 5 mg PO BID 04/23/19 Acetaminophen [Tylenol Tablet] 650 mg PO Q4H PRN PRN tab 04/29/19 gabapentin 800 mg tablet 800 mg PO BID #60 tab 05/23/19 Aspirin [Aspirin, Baby] 81 mg PO DAILY@0800 tab.chew 07/07/19 Atorvastatin Calcium [Lipitor] 80 mg PO QHS #30 tab 07/07/19 Ticagrelor [Brilinta] 90 mg PO BID #60 tab 07/07/19 albuterol sulfate 2.5 mg INHALATION Q6H PRN #75 ml 07/08/19 nebulizer accessories See Rx Instructions .ROUTE .MEDSUPPLY #2 ea 07/08/19 Carvedilol [Coreg (Beta Fco)] 6.25 mg PO BID #60 tab 07/12/19 Guaifenesin [Mucinex] 1,200 mg PO BID #14 tbmp.12hr 07/12/19 Prednisone [Deltasone] 40 mg PO DAILY 5 Days #10 tab 07/12/19 Tamsulosin HCl [Flomax] 0.4 mg PO DINNER #30 cap 07/12/19 Torsemide 10 mg PO DAILY #30 tab 07/12/19 Following Prescrptions Were Given to Patient: Prednisone [Deltasone] 40 mg PO DAILY 5 Days #10 tab Transmission Status: Received by [id number] Tamsulosin HCl [Flomax] 0.4 mg PO DINNER #30 cap Transmission Status: Received by [id number] Guaifenesin [Mucinex] 1,200 mg PO BID #14 tbmp.12hr Transmission Status: Received by [id number] Torsemide 10 mg PO DAILY #30 tab Transmission Status: Received by [id number] Primary Care Physician: Dharmesh Alonso MD [Primary Care Provider] - Please Follow Up With: Dharmesh Alonso MD When: in 1 week with BMP Please Follow Up With: Adriel Stafford MD When: in 1 week with BMP Please Follow Up With: Christie Tate MD When: IN 3-4 WEEK Medical Necessity - Tobacco Use Smoking Status: Former smoker Meaningful Use Info Meaningful Use Diagnoses (Choose all that apply): None applicable Code Visit Inpatient E&M: [id number] [facility]
--- NOTE | 2019-07-12 11:50 | PHA.DC.MC ---
Pharmacy Service has performed discharge medication reconciliation and counseling for this patient. 1. TORSEMIDE 10MG PO DAILY 2. PREDNISONE 40MG PO DAILY WITH FOOD X 5 DAYS 3. GUAIFENESIN 1200MG PO BID X 7 DAYS The patient's discharge medication list was reviewed for discrepancies and discrepancies were resolved. Home Medications Apixaban [Eliquis] 5 mg PO BID 04/23/19 Acetaminophen [Tylenol Tablet] 650 mg PO Q4H PRN PRN tab 04/29/19 gabapentin 800 mg tablet 800 mg PO BID #60 tab 05/23/19 Aspirin [Aspirin, Baby] 81 mg PO DAILY@0800 tab.chew 07/07/19 Atorvastatin Calcium [Lipitor] 80 mg PO QHS #30 tab 07/07/19 Ticagrelor [Brilinta] 90 mg PO BID #60 tab 07/07/19 albuterol sulfate 2.5 mg INHALATION Q6H PRN #75 ml 07/08/19 nebulizer accessories See Rx Instructions .ROUTE .MEDSUPPLY #2 ea 07/08/19 Carvedilol [Coreg (Beta Fco)] 6.25 mg PO BID #60 tab 07/12/19 Guaifenesin [Mucinex] 1,200 mg PO BID #14 tbmp.12hr 07/12/19 Prednisone [Deltasone] 40 mg PO DAILY 5 Days #10 tab 07/12/19 Torsemide 10 mg PO DAILY #30 tab 07/12/19 The patient was counseled on the following discharge medications and changes in medications for homegoing were reviewed. The Reason for Use, instructions for use, and potential side effects were reviewed for all new medications. The patient's questions regarding all of their medications were answered. The patient was able to verbally demonstrate an understanding of their discharge medications.
--- NOTE | 2019-07-12 12:42 | PN.RENAL_ITS ---
Patient Problems: Active and Suspected Problems (Last Updated 07/09/19 @ 10:37 by Kim Dodd) Back pain (Acute) CHF (congestive heart failure) (Acute) Subjective: cough no sob no cp - Physical Exam Vitals/I&O's: Vital Signs Temp Pulse Resp BP Pulse Ox 97.9 F 81 20 H 118/69 92 07/12/19 11:13 07/12/19 11:13 07/12/19 11:13 07/12/19 11:13 07/12/19 11:13 Oxygen Flow Rate (L/min) 1 Oxygen Delivery Method Room Air Weight: 78 kg Body Mass Index (BMI) 23.0 Finger Stick Blood Glucose 103 Intake and Output for Last 24 Hours 07/10/19 07/11/19 07/12/19 23:59 23:59 23:59 Intake Total 1820 / 1820 1334.93 / 1334.93 300 / 300 Output Total 3950 / 3950 1725 / 1725 350 / 350 Balance -2130 / -2130 -390.07 / -390.07 -50 / -50 General: Alert - l bka, Oriented x3, Cooperative Laboratory Results 07/12/19 05:35: WBC 15.7 H, RBC 4.01 L, Hgb 11.5 L, Hct 34.3 L, MCV 85.5, MCH 28.7, MCHC 33.5, RDW Std Deviation 47.7 H, RDW Coeff of Lawson 15.2 H, Plt Count 534 H, MPV 9.9, Immature Gran % (Auto) 0.800, Neut % (Auto) 86.5 H, Lymph % (Auto) 9.0 L, [place] % (Auto) 3.5, Eos % (Auto) 0.0, Baso % (Auto) 0.2, Absolute Neuts (auto) 13.6 H, Absolute Lymphs (auto) 1.41, Nucleated RBC % 0 07/12/19 05:35: Sodium 130 L, Potassium 4.1, Chloride 98, Carbon Dioxide 23.0, Anion Gap 9, BUN 33 H, Creatinine 1.55 H, Estim Creat Clear Calc 60.81, Est GFR (MDRD) Af Amer 60, Est GFR (MDRD) Non-Af 50 L, BUN/Creatinine Ratio 21.3 H, Glucose 144 H, Calcium 9.2 Current Medications Acetaminophen (Tylenol) 650 mg PO Q4H PRN PRN PRN Reason: Pain Score 1-3/10 Last Admin: 07/10/19 13:57 Dose: 650 mg Documented by: Albuterol Sulfate (Ventolin Aerosols) 2.5 mg INHALATION Q6H PRN PRN Reason: shortness of breath or wheezing Last Admin: 07/12/19 05:17 Dose: 2.5 mg Documented by: Albuterol/Ipratropium (Duoneb) 3 ml INHALATION Q6H.RT [facility] Last Admin: 07/12/19 07:13 Dose: 3 ml Documented by: Apixaban (Eliquis) 5 mg PO BID [facility] Last Admin: 07/12/19 08:00 Dose: 5 mg Documented by: Aspirin (Aspirin, Baby) 81 mg PO DAILY@0800 [facility] Last Admin: 07/12/19 08:00 Dose: 81 mg Documented by: Atorvastatin Calcium (Lipitor) 80 mg PO QHS [facility] Last Admin: 07/11/19 21:08 Dose: 80 mg Documented by: Carvedilol (Coreg) 6.25 mg PO BID [facility] Last Admin: 07/12/19 08:01 Dose: 6.25 mg Documented by: Furosemide (Lasix) 40 mg PO DAILY [facility] Gabapentin (Neurontin) 800 mg PO BID [facility] Last Admin: 07/12/19 08:01 Dose: 800 mg Documented by: Guaifenesin (Mucinex) 600 mg PO BID [facility] Last Admin: 07/12/19 08:02 Dose: 600 mg Documented by: Guaifenesin (Robitussin) 10 ml PO Q4H PRN PRN PRN Reason: COUGH Hydromorphone HCl (Dilaudid Inj) 0.5 mg IV Q3H PRN PRN PRN Reason: Pain Score 4-10/10 Last Admin: 07/11/19 02:25 Dose: 0.5 mg Documented by: Sodium Chloride () 250 mls @ 15 mls/hr IV .[id number] PRN PRN Reason: Saline Flush Sodium Chloride () 250 mls @ 15 mls/hr IV .[id number] PRN PRN Reason: Additional IVPB Infusion Nitroglycerin (Nitrostat) 0.4 mg SUBLINGUAL Q5M PRN PRN Reason: CARDIAC/CHEST PAIN Ondansetron HCl (Zofran) 4 mg IV Q6H PRN PRN PRN Reason: nausea, emesis Oxycodone HCl (Oxyir) 10 mg PO Q4H PRN PRN PRN Reason: Pain Score 4-10/10 Last Admin: 07/12/19 08:07 Dose: 10 mg Documented by: Phenol/Menthol (Chloraseptic (Bkc)) 5 spray MM Q2H PRN PRN PRN Reason: SORE THROAT Last Admin: 07/12/19 02:02 Dose: 5 spray Documented by: Sodium Chloride () 10 - 40 ml IV UD PRN PRN Reason: SALINE FLUSH Last Admin: 07/11/19 21:10 Dose: 10 ml Documented by: Throat Lozenges (Cepacol Sore Throat Lozenge) 2 lozenge MUCOUS MEM Q2H PRN PRN PRN Reason: sore throat, cough Ticagrelor (Brilinta) 90 mg PO BID [facility] Last Admin: 07/12/19 08:01 Dose: 90 mg Documented by: Medical Necessity - Tobacco Use Smoking Status: Former smoker Assessment/Plan All Active Problems (Last Updated 07/09/19 @ 10:37 by Kim Dodd) History of coronary artery stent placement (Acute) Atherosclerosis of coronary artery of [place] heart without angina pectoris (Acute) Cardiac arrest (Acute) Back pain (Acute) CHF (congestive heart failure) (Acute) History of left heart catheterization (LHC) (Resolved ~09/14/16) History of cardiac radiofrequency ablation (Resolved ~02/25/13) JUAN (acute kidney injury) (Resolved) Chronic osteomyelitis of left tibia (Resolved) Dermatitis (Resolved) Ischemic ulcer of right foot (Resolved) Osteomyelitis of left lower extremity (Resolved) Thrush, oral (Resolved) Ulceration of below knee amputation stump (Resolved) Wound, surgical, nonhealing (Resolved) JUAN prerenal CRS back to CKD baseline CKD 3 baseline 1.2-1.7 urinary retention HF EF 35 % ok to d/c home on torsemide 10 mg po qd.Will need bmp in one week and f/u renal office in 2-3 weeks. f/u urology dr. Varela for urinary retention as outpatient. avoid nephrotoxins d/w patient and dr. Bruno
--- NOTE | 2019-07-15 14:17 | CASEMGMT ---
[facility] PHONE CALL DC DATE: 07.12.2019 DC Disposition: Home Diagnosis on Discharge: CHF,Back pain LACE/STRATA: 10/09 Attempted call to 's phone. No answer. Mio PATEL RN AC
== END 2019-07-12 14:00 | disposition home or self-care (01) | DRG 280 ==
LOC: ED 07-09 03:07 → PCU 07-09 03:34 → ICU 07-10 08:20 → PCU 07-12 08:20
PROVIDERS: Family Medicine; Internal Medicine; Admitting Provider Family Medicine; Emergency Provider Emergency Medicine; PCP Internal Medicine; Visit Provider Internal Medicine
DX: I13.0 Hypertensive heart and chronic kidney disease with heart failure and stage 1 through stage 4 chronic kidney disease, or unspecified chronic kidney disease (principal); I21.4 Non-ST elevation (NSTEMI) myocardial infarction; I50.23 Acute on chronic systolic (congestive) heart failure; J96.01 Acute respiratory failure with hypoxia; N17.9 Acute kidney failure, unspecified; J44.1 Chronic obstructive pulmonary disease with (acute) exacerbation; D68.62 Lupus anticoagulant syndrome; I25.10 Atherosclerotic heart disease of native coronary artery without angina pectoris; Z79.02 Long term (current) use of antithrombotics/antiplatelets; N18.3 Chronic kidney disease, stage 3 (moderate); R33.9 Retention of urine, unspecified; F32.9 Major depressive disorder, single episode, unspecified; I51.3 Intracardiac thrombosis, not elsewhere classified; R07.89 Other chest pain; I25.5 Ischemic cardiomyopathy; I44.7 Left bundle-branch block, unspecified; D64.9 Anemia, unspecified; I73.9 Peripheral vascular disease, unspecified; R53.81 Other malaise; I69.398 Other sequelae of cerebral infarction; Z95.5 Presence of coronary angioplasty implant and graft; Z87.891 Personal history of nicotine dependence; Z86.74 Personal history of sudden cardiac arrest; Z89.512 Acquired absence of left leg below knee; Z79.01 Long term (current) use of 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s
CPT/HCPCS: 36415; 36600; 71045; 71046; 71275; 76770; 80048; 80053; 81001; 82550; 82803; 83735; 83880; 84100; 84484; 85025; 85610; 93005; 93306; 94640; 94667; 94668; 97802; 99284; 99406; Q9957; Q9967; A4216; C8929; J1940; J2405

== ENCOUNTER → 2019-07-19 11:53 | Outpatient (CLI) | payer BC, SELFPAY ==
[2019-07-04 09:02] VITALS: BMI 29.8
[2019-07-19 11:17] VITALS: BMI 23.0
[2019-07-19 14:31] LABS: Anion Gap 6 (5-15); BUN 23 mg/dL (7-18); BUN/Creat Ratio 15.9 RATIO (10-20); Calcium,Total 8.6 mg/dL (8.5-10.1); Chloride 103 mmol/L (98-107); Creatinine, Serum 1.45 mg/dL (0.70-1.30); EST Glomerular Filtration Rate 54 mL/min (>60); Est Glom Filt Rate - Afr Amer 65 mL/min (>60); Glucose 77 mg/dL (74-106); Potassium 4.4 mmol/L (3.5-5.1); Sodium Level 136 mmol/L (136-145)
== END ==
PROVIDERS: PCP Internal Medicine; Referring Provider Internal Medicine; Visit Provider Internal Medicine
DX: N18.3 Chronic kidney disease, stage 3 (moderate) (principal)
CPT/HCPCS: 36415; 80048

== ENCOUNTER 2019-08-07 18:00 | Outpatient (RCR) | payer BC, MEDICAID, SELFPAY ==
[2019-04-23 20:15] VITALS: BMI 23.3
--- NOTE | 2019-05-15 11:11 | HP.SP.AD_ITS ---
History - History Date of Eval: 05/13/19 Medical Diagnosis (from RX): CVA Date of Onset of Diagnosis: 04/17/20 Previous speech therapy: Yes Results: Patient spent one week in inpatient rehab with limited therapy due to length of stay. Other Relevant Medical History/Diagnoses/Surgery: depression, debility, renal failure, cardiomyopathy, amenic, tobacco use, pulmonary embolism, DVT, status post below knee amputation of left lower leg. Medications related to this diagnosis: Acetaminophen (Tylenol), Apixaban (Eliquis) 5 mg PO BID [facility]. Aspirin (Aspirin) 325 mg PO DAILY@0800 [facility]. Bisacodyl (Dulcolax) 10 mg RECTAL .PRN X 1 PRN. Carvedilol (Coreg) 12.5 mg PO BID [facility]. Enoxaparin Sodium (Lovenox) 40 mg SC DAILY@0600 [facility]. Gabapentin (Neurontin) 800 mg PO BID [facility]. Lisinopril (Zestril) 10 mg PO DAILY [facility]. Magnesium Hydroxide (Milk Of Magnesia) 30 ml PO .PRN X 1 PRN. Mirtazapine (Remeron) 15 mg PO QHS [facility]. Nicotine (Nicoderm Cq (Pbkc)) 21 mg TRANSDERM. DAILY [facility]. Senna/Docusate Sodium (Senokot-S, Ami-Colace) 2 tablet PO BID [facility]. Sodium Chloride ([place] Nasal [place]) 2 spray NASAL BID PRN PRN. Tramadol HCl (Ultram) 50 mg PO Q6H PRN PRN Smoking Status: Former smoker Hx Smoking: Yes Hx Smoking Cessation Date: 04/17/19 Hx Tobacco Use: Yes Hx Smoking Exposure: Yes - Pain Is pain an issue with your current prescribed condition?: No - Personal Education History: 2 bachelors degrees. 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 Linguistic skills were evaluated using patient/family interview, skilled observation and informal evaluation through tasks completed by the patient. - Orientation Orientation: Person, Place, Birthdate, Medical Diagnosis CLQT - CLQT CLQT Administered: Yes CLQT: Cognitive Linguistic Quick Test (CLQT) is a criterion - referenced assessment designed for adults between the ages of 18 and 89 with known or suspected neurological dysfuntions. The CLQT is to assess strength and weaknesses in five cognitive domains. Severity ratings are within normal limits, mild, moderate, severe deficits. The subtests are as follows: Date: 05/15/19 - Attention Attention: Mild - Memory Memory: Mild - Executive Functions Executive Functions: Moderate - Language Language: Mild - Visuospatial Skills Visuospatial Skills: Mild - CLQT Comments Analysis MOD cognitive-linguistic deficits including decreased orientation, sequencing, word finding, recall of new information, and complex executive functioning deficits. Pt aware of his limitations, very agreeable to treatment and participated well with evaluation. Pt stating that he was driving prior, managing finances, and managing own medications prior. 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 Plan - Plan Plan: Speech therapy is warranted for moderate deficits in multiple cognitive areas as well as mild language deficits. - Recommendations Treatment Warranted: Yes - Frequency Frequency: 1x/Week Duration: 2 Months - Prognosis Prognosis: Good - Goals that are Established: Determination:: Goals will be added/modified as deemed necessary and appropriate. Therapy will be discontinued when results of re-evaluation indicate therapy is no longer needed or lack of progress has been documented. - Goal #1-5 Goal #1: Regis will complete problem solving, reasoning, judgement tasks with 80% accuracy on 2/3 consecutive sessions to increase executive function skills. Goal #2: Regis will complete recall tasks utilizing recall strategies on 4/5 trials on 2/3 consecutive sessions. Goal #3: Evaluation of letters and reading. Education - Patient has Indicated that the Following Identified Educational Needs: Cognitively Impaired - Patient Instruction Patient Education: Diagnosis, Treatment Plan, Goals Person Taught: Patient, Family Teaching Method: Discussion Response to teaching: Verbalize understanding
== END 2019-08-07 19:00 | disposition home or self-care (01) ==
LOC: SP 18:00
PROVIDERS: Family Provider Internal Medicine; PCP Internal Medicine; Visit Provider Internal Medicine
DX: Z86.73 Personal history of transient ischemic attack (TIA), and cerebral infarction without residual deficits (principal); R53.81 Other malaise
CPT/HCPCS: 92507; 92523

== ENCOUNTER 2019-08-12 12:56 | Outpatient (RCR) | payer BC, SELFPAY ==
[2019-07-04 09:02] VITALS: BMI 29.8
[2019-07-19 11:17] VITALS: BMI 23.0
[2019-08-07 13:07] VITALS: BMI 22.1
--- NOTE | 2019-08-12 14:36 | HP.PTEVAL ---
Patient's Visit Information JANIE CHIN is a 53 year old M referred to Physical Therapy by Dharmesh Alonso MD with a diagnosis of MAILASE. Date of Evaluation: 08/12/19 Physical Therapist: Francois Orellana PT, Cert MDT, OCS - Visit Plan Frequency: 1VISIT Plan: RECOMMEND PMD MOTORIZED WHEELCHAIR DUE TO PATIENT IS UNABLE TO WALK ONLY 10 FT,DECREASE BALANCE ,ENDURANCE AND STRENGTH WELL COMORBITIES INFLUENCE PATIENT CONDITION - Subjective Subjective: This 53 y/o male presenrs o physical therapy with evaluation for motorized wheelchair. Patient has multile complexity issues with right BKA 5 years ago,then had revision about 2017. Patient CVA right side weakness 2018 ,Jun 2019 had OK ,other comorbities COPD ,PVD,cardiomyopathy disease,hypercoagulable,h/po MRSA,JUAN,DVT ,PE,osteomyitis. Patient lives 1 story home with ramp, tib/shower set up ,walker,w/c. Patient sleeps in a recliner . Patient is able to dress and cook but needs assist with ADL'S at home. Patient able to hop ~10 ft. Patient stays in w/c 7 hrs Daily.Patient has parathesia right leg. VOCATION: unemployed - Objective POSTURE: mild foward posture,posterior pelvic tilt. NEURO: c/o parathesia /tingling right leg light touch diminished right lower leg. AROM: BUE WFL. MMT: RUE 4-/5,except shoulder 3+/5,LUE 4-/5. AROM: left knee flexion 5 -100 degrees,right knee flexion 0-125 degrees,hip flexion 110 degrees flexion,abduction 35 degrees,left 105 degrees. MMT:right quads/hams 4-/5,hip flexion/abd 3+/5,ankle 4-/5,left hip flexion 3+/5,hip abd 3+/5. GAIT: ambulated with fww 10ft with SBA. TRANSFERS: sit-stand with MOD I. BALANCE: sitting good-. STANDING: fair -with fww. Bed mobility: SUPINE -SIT MOD I - Goals Goal 1:: Recommend PMD ( motorized w/c) to maintain patient functional Independance. - Rehabilitation Potential Physical Therapy Diagnosis: This patient has multiple comorbities with left BKA AND CVA affecting right side with inablity to safely walk and main moblity is w/c along with decrease balnce ,weakness in BUE/LE Right side is worse thus will benifit from motorized W/C. Rehabilitation Potential: Good - Anticipated Interventions Patient/Client Instruction: Educate patient on: Condition, Plan of Care For the Purpose of:: Other Other: PMD Thank you for the opportunity to evaluate your patient. For Medicare and Medicare HMO plans, please review the plan of care and approve it. It will need to be FAXED BACK to us at [phone] for Medicare purposes. For Medicare only, by signing this I certify the plan of care. Please let me know if there are questions or concerns regarding this plan of care. Physician Signature: Date:
== END 2019-08-12 19:00 | disposition home or self-care (01) ==
LOC: PT 12:56
PROVIDERS: PCP Internal Medicine; Referring Provider Internal Medicine; Visit Provider Internal Medicine
DX: R53.81 Other malaise (principal)
CPT/HCPCS: 97163

== ENCOUNTER → 2019-08-16 11:54 | Outpatient (CLI) | payer BC, SELFPAY ==
[2019-07-04 09:02] VITALS: BMI 29.8
[2019-08-07 13:07] VITALS: BMI 22.1
[2019-08-16 15:56] LABS: ALB/GLOB Ratio 0.8 RATIO (0.9-2.4); AST(SGOT) 35 U/L (15-37); Alanine Aminotransfer ALT/SGPT 46 U/L (16-61); Albumin, Serum 3.9 g/dL (3.2-5.0); Alkaline Phosphatase 136 U/L (45-117); Anion Gap 11 (5-15); BUN 9 mg/dL (7-18); BUN/Creat Ratio 6.4 RATIO (10-20); Calcium,Total 9.1 mg/dL (8.5-10.1); Chloride 100 mmol/L (98-107); Creatinine, Serum 1.41 mg/dL (0.70-1.30); EST Glomerular Filtration Rate 56 mL/min (>60); Est Glom Filt Rate - Afr Amer 67 mL/min (>60); Globulin 4.6 g/dL (2.2-4.2); Glucose 119 mg/dL (74-106); Potassium 3.6 mmol/L (3.5-5.1); Protein, Total 8.5 g/dL (6.4-8.2); Sodium Level 133 mmol/L (136-145)
== END ==
PROVIDERS: PCP Internal Medicine; Referring Provider Specialist; Visit Provider Specialist
DX: N18.3 Chronic kidney disease, stage 3 (moderate) (principal); I50.9 Heart failure, unspecified; I25.10 Atherosclerotic heart disease of native coronary artery without angina pectoris; I46.9 Cardiac arrest, cause unspecified; Z95.5 Presence of coronary angioplasty implant and graft
CPT/HCPCS: 36415; 80053

== ENCOUNTER 2019-10-15 17:30 | Inpatient (IN) | payer BC, SELFPAY ==
[2019-07-04 09:02] VITALS: BMI 29.8
[2019-08-29 14:59] VITALS: BMI 22.1
[2019-10-15] VITALS (12 sets, daily range): BP systolic 94–158; BP diastolic 68–110; PULSE 74–107; RESP 13–18; TEMP 36.4–37.1; O2SAT 96–99; BMI 25.6; BMI 23.1
--- NOTE | 2019-10-15 17:34 | CT_ITS ---
STUDY: CTA HEAD AND NECK WITH CONTRAST REASON FOR EXAM: Male, 54 years old. R/O CVA. VISION CHANGES. PRIOR CVA IN PAST RADIATION DOSAGE (If Supplied By Facility): CTDIvol = ( 17.90 ) mGy, DLP = ( 823.98 ) mGycm TECHNIQUE: CT angiography was performed with a multi-detector CT scanner. Data acquisition was obtained from the skull base through the vertex following intravenous administration of 100 ML ISOVUE 370. MIP images were reconstructed from the axial data set. Post-processing of the angiographic images was performed, with multiplanar reformation and 3D reconstruction. Individualized dose optimization techniques were used for this CT. COMPARISON: Noncontrast head CT dated October 15, 2019. Head CTA dated April 17, 2019 FINDINGS: Mild to moderate focus of calcium with focal noncritical stenosis in the mid aspect of the right petrous carotid artery. Normal left petrous carotid artery. Normal right cavernous carotid artery with a normal supraclinoid bifurcation. There is calcified plaque formation of the left cavernous carotid artery, with a mild stenosis (less than 50%). Normal right A1 segments of the anterior cerebral artery. Normal left A1 segments of the anterior cerebral artery. Normal intact anterior communicating artery (ACOM). Normal bilateral A2 segments of the anterior cerebral arteries. Normal right M1 and M2 segments of the middle cerebral arteries, with a normal M1 bifurcation. Normal left M1 and M2 segments of the middle cerebral arteries, with a normal M1 bifurcation. Normal right posterior communicating artery (PCOM). Normal left posterior communicating artery (PCOM). Normal bilateral vertebral arteries. Normal basilar artery with a normal basilar bifurcation. The visualized bilateral superior cerebellar (SCA) arteries are normal. Normal bilateral P1, P2 and visualized P3 segments of the posterior cerebral arteries. There is no demonstrated aneurysm of the [place] of [place]. No demonstrated occlusion or intraluminal thrombus in the major arteries. AORTIC ARCH: Normal visualized aortic arch. Normal origins of the brachiocephalic, left common carotid, and left subclavian arteries. RIGHT CAROTID ARTERIES: Normal right common carotid artery (CCA). Normal right common carotid bulb. There is mild atherosclerotic plaque formation of the origin of the right internal carotid artery with less than 50% cross sectional diameter stenosis. Normal visualized cervical portion of the right internal carotid artery. Normal origin of the right external carotid artery (ECA). LEFT CAROTID ARTERIES: Normal left common carotid artery (CCA). Normal left common carotid bulb. Status post angioplasty the left internal carotid artery origin since the prior study; Normal origin of the left internal carotid (ICA) artery without a hemodynamically significant stenosis. Mild less than 50% stenosis in the proximal to mid one third aspect of the left internal carotid artery is unchanged from the prior study. Normal remaining visualized aspects of the cervical portion of the left internal carotid artery. Normal origin of the left external carotid artery (ECA). VERTEBRAL ARTERIES: Normal bilateral vertebral arteries. Unremarkable soft tissues of the neck. No demonstrated acute process within the brain. Volume loss in the left parieto-occipital junction is likely due to an old infarct. This finding is unchanged from the prior study. Cervical spine degenerative changes are present. CT/CTA Head AND Neck W/ Contrast IMPRESSION: 1. There is no demonstrated aneurysm of the [place] of [place]. 2. No demonstrated a hemodynamically significant stenosis or occlusion of the major intracranial arteries. 3. Status post angioplasty the left internal carotid artery origin since the prior study; Normal origin of the left internal carotid (ICA) artery without a hemodynamically significant stenosis. Mild less than 50% stenosis in the proximal to mid one third aspect of the left internal carotid artery is unchanged from the prior study. Electronically Signed: Capo Gutierrez MD at 18:31 EDT , Service support ,
--- NOTE | 2019-10-15 17:34 | EKG12_ITS ---
Test Reason : STROKE ALERT Blood Pressure : / mmHG Vent. Rate : 085 BPM Atrial Rate : 085 BPM P-R Int : 176 ms QRS Dur : 176 ms QT Int : 444 ms P-R-T Axes : 068 003 111 degrees QTc Int : 528 ms Normal sinus rhythm Left bundle branch block Abnormal ECG Confirmed by JIN BUSH, MAHSA ([id number]), photographic editor MACHO SAUCEDO ([id number] on 10/22/2019 2:16:09 PM Referred By: Confirmed By:MAHSA ABDI MD
--- NOTE | 2019-10-15 17:34 | CT_ITS ---
STUDY: CT BRAIN WITHOUT CONTRAST REASON FOR EXAM: Male, 54 years old. Altered mental status. Stroke alert. RADIATION DOSAGE (If Supplied By Facility): CTDIvol = ( 44.99 ) mGy, DLP = ( 846.73 ) mGycm TECHNIQUE: Transaxial CT imaging of the brain was performed without administration of intravenous contrast material. Individualized dose optimization techniques were used for this CT. COMPARISON: 04/17/2019 FINDINGS: There is an old left parieto-occipital infarct with encephalomalacia. There is no acute bleed or infarct. There are normal white matter tracts. The ventricles are normal in configuration. There is no hydrocephalus. The visualized paranasal sinuses are clear. The mastoid air cells are well aerated. There is no skull fracture. 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 No acute intracranial abnormality. N.B. : The above information has been verbally conveyed by Antione Ventura to José Miguel Cochran on 10/15/2019 17:52:49 (ET). Electronically Signed: Antione Ventura, at 17:53 EDT Tel , Service support ,
[2019-10-15 17:46] LABS: Absolute Lymphocyte Count 5.33 X10^3/uL (0.83-4.51); Basophil% 0.9 % (0-1); Eosinophil# 0.89 X10^3/uL; Eosinophils% 8.1 % (0-5); Hematocrit 41.8 % (40-54); Hemoglobin 13.9 g/dL (13.0-16.5); Lymphocyte # 5.33 X10^3/ul (4.0); Lymphocyte % 48.7 % (19-41); Mean Corp Hgb Conc 33.3 g/dL (32-36); Mean Corpuscular Hgb 30.1 pg (27.0-32.0); Mean Corpuscular Volume 90.5 fL (80-94); Monocyte# 0.57 X10^3/uL; Monocyte% 5.2 % (0-10); NRBC Flagged by Analyzer 0 % (0-5); Neutrophil # 4.02 X10^3/uL (2.7-7.7); Neutrophil % 36.8 % (47-70); POSITIVE DIFFERENTIAL YES; Platelet Count 417 K/mm3 (150-450); RBC Distribution Width CV 16.9 % (11.6-14.6); RBC Distribution Width SD 54.7 fl (35.1-43.9); Red Blood Count 4.62 M/mm3 (4.6-6.2); White Blood Count 10.9 K/mm3 (4.4-11.0)
[2019-10-15] MEDS: Ondansetron 4 MG/2 ML Vial IV ×2 (17:54→21:31)
[2019-10-15 17:57] LABS: International Normalized Ratio 1.1; Prothrombin Time (Protime)PT. 13.9 SECONDS (11.7-14.9)
[2019-10-15 17:58] LABS: Partial Thromboplast Time 33.3 Seconds (24.1-36.2)
[2019-10-15 18:03] LABS: Differential Indicated SCAN CRITERIA MET
[2019-10-15 18:12] LABS: Differential Comment SCANNED
--- NOTE | 2019-10-15 18:20 | CM.ED ---
Social Work Responding to stroke alert. Support provided to family. Patient lives at home with spouse, Roxana. Roxana works outside of the home. Cora Chapman MSW, AZIZA
[2019-10-15] MEDS: proMETHazine 25 MG/ML Syringe 6.25 MG IV (18:21)
[2019-10-15 18:34] LABS: Anion Gap 9 (5-15); BUN 6 mg/dL (7-18); BUN/Creat Ratio 5.4 RATIO (10-20); Calcium,Total 8.5 mg/dL (8.5-10.1); Chloride 102 mmol/L (98-107); Creatinine, Serum 1.11 mg/dL (0.70-1.30); EST Glomerular Filtration Rate 73 mL/min (>60); Est Glom Filt Rate - Afr Amer 89 mL/min (>60); Estimated Creatinine Clearance 78.55 ml/min; Glucose 82 mg/dL (74-106); Potassium 3.7 mmol/L (3.5-5.1); Sodium Level 135 mmol/L (136-145)
--- NOTE | 2019-10-15 18:35 | RAD_ITS ---
STUDY: X-RAY CHEST REASON FOR EXAM: Male, 54 years old. stroke workup TECHNIQUE: Single AP portable view of the chest. COMPARISON: July 11, 2019 FINDINGS: The lungs are clear and expanded. There is no demonstrated pleural abnormality. Normal size heart. Stable visualized mediastinum and osseous structures. RAD/Chest 1 View IMPRESSION: No acute process Electronically Signed: Capo Gutierrez MD at 18:58 EDT , Service support ,
--- NOTE | 2019-10-15 19:13 | PCM.HP.STD ---
Problem List (1) Acute CVA (cerebrovascular accident) Status: Acute (2) HLD (hyperlipidemia) Status: Chronic Qualifiers: Hyperlipidemia type: unspecified Qualified Code(s): E78.5 - Hyperlipidemia, unspecified (3) History of coronary artery stent placement Status: Chronic Comment: 3.5 x 32 mm Synergy MR BRIDGER to pLAD 07/03/19 (4) Atherosclerosis of coronary artery of [place] heart without angina pectoris Status: Chronic Qualifiers: Coronary Disease-Associated Artery/Lesion type: [place] artery Qualified Code(s): I25.10 - Atherosclerotic heart disease of [place] coronary artery without angina pectoris (5) Cardiac arrest Status: Resolved (6) CHF (congestive heart failure) Status: Chronic Qualifiers: Heart failure type: systolic Heart failure chronicity: chronic Qualified Code(s): I50.22 - Chronic systolic (congestive) heart failure (7) Depression Status: Chronic Qualifiers: Depression Type: unspecified Qualified Code(s): F32.9 - Major depressive disorder, single episode, unspecified (8) History of carotid endarterectomy Status: Chronic Comment: 04/22/19 at [facility] (9) History of ischemic left MCA stroke Status: Chronic Comment: 04/17/19 (10) Essential hypertension Status: Chronic (11) Tobacco use disorder Status: Resolved (12) Peripheral arterial disease Status: Chronic Comment: BL LE's....multiple stents in both legs (13) Hypercoagulable state Status: Chronic Comment: Positive lupus anticoagulant, positive anticardiolipin anti B IgM, and increased homocystine level History of Present Illness Date of Admission: 10/15/19 Chief Complaint: Slurred speech, headache, R sided vision loss, R sided weakness. The patient is a 54 y/o M w/ PMHx: Cardiomyopathy, unclear type, Systolic CHF CAD, Hx CVA with deficits including mild R sided deficits, Chronic anemia, HTN, HLD, Hx frequent sxs PVC/SVT s/p ablation, Hx DVT and PE w/ positive lupus/anticardiolipin, anti-B IgM anticoagulant, PAD with BL LE stents status post partial left lower extremity amputation, Tobacco use, Dilated Cardiomyopathy who presents to the [facility] ED on 10/15/19 with onset at approximately 3:30 PM on day of ED presentation complete right eye vision loss as well as mild right-sided facial droop and acute on chronic right-sided weakness in addition to slurred speech with patient prior history of a stroke with deficits inclusive of mild mental delay prompting patient to wait his returning home instead of calling EMS or his to alert her of his symptoms following which she was immediately taken to the emergency room for evaluation. Patient also reported right-sided neck and head ache, strain, described as a stabbing sensation, rated a 10 out of 10 upon evaluation in the ED. NIH initially 9 with improvement to 6 upon reevaluation. In the ED patient right-sided facial droop improved as well as speech however he continued to have right eye left medial upper and lower quadrant loss but states that he did have vision issues from the prior stroke thus unclear if this has a chronic component. Stroke call was performed however patient was not a TPA candidate given on Eliquis therapy. Work-up in the ED included T 98, heart rate initially 107, BP initially 158/110, respiratory rate 13, 98% on room air, CBC with WC 10.9, hemoglobin 13.9, platelet 417 with left shift, unremarkable coags, BMP with sodium 135, BUN/creatinine 6/1.11, troponin less than 0.015, glucose 82, x-ray with no acute cardiopulmonary findings, CT brain with and old left parieto-occipital infarct evidence with encephalomalacia with no acute intracranial findings otherwise, CTA head and neck with no demonstrated aneurysm or abnormality of the [place] of [place], no demonstrated hemodynamically significant stenosis or occlusion of the major intracranial arteries, evidence of status post angioplasty left ICA, normal origin left ICA artery without hemodynamically significant stenosis, mild less than 50% stenosis in the proximal to mid one third aspect of the left ICA unchanged from prior study, EKG with SR with LBBB without acute evidence of ischemia. In the ED patient ministered Zofran, Phenergan therapy. Past Medical History Past Medical History (Chronic Problems): Chronic Problems (Last Reviewed 08/07/19 @ 15:[address] Christie Tate MD) HLD (hyperlipidemia) (Chronic) History of coronary artery stent placement (Chronic) 3.5 x 32 mm Synergy MR BRIDGER to pLAD 07/03/19 Atherosclerosis of coronary artery of [place] heart without angina pectoris (Chronic) CHF (congestive heart failure) (Chronic) History of sudden cardiac arrest successfully resuscitated (Chronic) Chronic renal failure, stage 2 (mild) (Chronic) Depression (Chronic) History of carotid endarterectomy (Chronic) 04/22/19 at [facility] History of ischemic left MCA stroke (Chronic) 04/17/19 Debility (Chronic) due to L MCA stroke 04/17/19 Normochromic normocytic anemia (Chronic) LBBB (left bundle branch block) (Chronic) Dilated cardiomyopathy (Chronic) 27% EF on ECHO 02/18/19........non-ischemic. 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 Christie Tate MD) Atherosclerosis of coronary artery of [place] heart without angina pectoris (Acute) I25.10 Dilated cardiomyopathy (Chronic) I42.0 27% EF on ECHO 02/18/19........non-ischemic. normal coronaries on cath August 2016 at [facility] Essential hypertension (Chronic) I10 Tobacco use disorder (Inactive) F17.200 intermediate designer current use of anticoagulant (Chronic) Z79.01 Patient is on Coumadin for PE Peripheral arterial disease (Chronic) I73.9 BL LE's....multiple stents in both legs Hypercoagulable state (Chronic) D68.59 Positive lupus anticoagulant, positive anticardiolipin anti B IgM, and increased homocystine level Anemia D64.9 Arthritis M19.90 Vascular disease I99.9 JUAN (acute kidney injury) (Resolved) N17.9 Chronic osteomyelitis of left tibia (Resolved) M86.662 chronic osteomyelitis left tibia at BKA stump Dermatitis (Resolved) L30.9 Gallstones K80.20 Ischemic ulcer of right foot (Resolved) L97.519 Osteomyelitis of left lower extremity (Resolved) M86.9 Thrush, oral (Resolved) B37.0 Ulceration of below knee amputation stump (Resolved) T87.89, L97.809 Wound, surgical, nonhealing (Resolved) T81.89XA History of DVT (deep vein thrombosis) (Inactive) Z86.718 History of pulmonary embolism (Inactive) Z86.711 Methicillin resistant Staphylococcus aureus infection (Inactive) A49.02 Pain of amputation stump of left lower extremity (Inactive) T87.89, M79.605 Partial loss of skin graft (Inactive) T86.828 Personal history of osteomyelitis (Inactive) Z87.39 SVT (supraventricular tachycardia) (Inactive) I47.1 had an ablation in the past Allergies Penicillins Allergy (Verified 08/07/19 13:11) Swelling adhesive tape Adverse Reaction (Verified 08/07/19 13:11) Rash oxycodone [From OxyContin] Adverse Reaction (Verified 08/07/19 13:11) Other it makes me go nuts Home Medications: Ambulatory Orders Medication Instructions Recorded Apixaban [Eliquis] 5 mg PO BID 04/23/19 Acetaminophen [Tylenol Tablet] 650 mg PO Q4H PRN PRN tab 04/29/19 Aspirin [Aspirin, Baby] 81 mg PO DAILY@0800 tab.chew 07/07/19 Atorvastatin Calcium [Lipitor] 80 mg PO QHS #30 tab 07/07/19 albuterol sulfate 2.5 mg INHALATION Q6H PRN #75 ml 07/08/19 nebulizer accessories See Rx Instructions .ROUTE 07/08/19 .MEDSUPPLY #2 ea Tamsulosin HCl [Flomax] 0.4 mg PO DINNER #30 cap 07/12/19 albuterol sulfate 90 mcg/actuation 1 - 2 puff INHALATION Q6H PRN #8.5 07/19/19 aerosol inhaler g sertraline 50 mg tablet 50 mg PO QDAY #30 tab 07/19/19 lisinopril 2.5 mg tablet 2.5 mg PO DAILY #30 tab 08/07/19 carvedilol 6.25 mg tablet 6.25 mg PO BID #60 tab 08/27/19 ticagrelor 90 mg tablet 90 mg PO BID #60 tab 09/18/19 torsemide 10 mg tablet 10 mg PO DAILY #90 tab 09/18/19 gabapentin 800 mg tablet See Rx Instructions .ROUTE 10/10/19 .COMPLEX #180 tab Surgical History: Surgical History (Last Reviewed 08/07/19 @ 15:[address] Christie Tate MD) History of coronary artery stent placement (Acute) Z95.5 3.5 x 32 mm Synergy MR BRIDGER to pLAD 07/03/19 History of left heart catheterization (LHC) (Resolved) Onset Date: ~09/14/16 Z98.890 Normal Coronaries....august 2016 at [facility] History of cardiac radiofrequency ablation (Resolved) Onset Date: ~02/25/13 Z98.890 PVC Ablation 02/25/13 @ [facility] 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) Z89.512 at [facility] for severe PVD with non-healing wounds and recurrent infections LLE Revision done in 2018 History of cholecystectomy Z90.49 1998 History of surgical removal of testicle Z98.890, Z90.79 Surgical History: cholecystectomy, - - Left CEAy 04/22/2019 at [facility], Left BKA for severe peripheral vascular disease with nonhealing wounds, cellulitis and osteomyelitis, Multiple stents in both lower extremities secondary to peripheral vascular disease, Multiple debridements of nonhealing wounds of the left lower extremity, Cardiac PCI x 1, cholecystectomy. Psychiatric History: Anxiety, Depression Lives: Spouse/ Significant Other Smoking Status: Former smoker - Patient quit in 2018 with prior to this 2 pack/day although toward the end he decreased to 1/2 pack/day since he was a teenager. Tobacco Use: Non-smoker Alcohol: Sober Drugs: None - *Family History Maternal Family History: Family History (Last Reviewed 08/07/19 @ 15:[address] Christie Tate MD) Mother Diabetes CVA (cerebral vascular accident) Myocardial infarction Father Cancer Kidney disease History Items: Cancer, Diabetes, Heart Disease, Renal Disease Paternal Family History: Family History (Last Reviewed 08/07/19 @ 15:[address] Christie Tate MD) Mother Diabetes CVA (cerebral vascular accident) Myocardial infarction Father Cancer Kidney disease History Items: Cancer Review of Systems Constitutional: Reports: Malaise, Weakness, Fatigue. Denies: Chills, Fever, Weight Change HEENT: Reports: Visual Changes. Denies: Head Aches, Sinus Congestion, Sinus Drainage Cardiovascular: Denies: Chest Pain, Palpitations Respiratory: Denies: Cough, Shortness of Breath, Shortness of breath at rest, Shortness of breath upon exertion, Sputum production Gastrointestinal: Denies: Abdominal Pain, Nausea, Vomiting Genitourinary: Denies: Dysuria Musculoskeletal: Denies: Joint Pain, Joint Tenderness Skin: Denies: Rash, Wounds Neurological: Reports: Change in Speech, Slurred speech, Confusion, Difficulty swallowing, Focal weakness, - - R eye vision loss.. Denies: Numbness, Tingling Psychiatric: Reports: Anxiety, Depression. Denies: Homicidal Ideations, Suicidal Ideations Hematologic/ Lymphatic: Reports: Anemia, Easy Bruising, Easy Bleeding VTE Information - Inpt Only VTE Present on Admission: No VTE Mechan Device Prophylaxis: SCD's VTE Pharm Prophylaxis ordered?: Yes Patient Problems: Active and Suspected Problems (Last Reviewed 08/07/19 @ 15:[address] Christie Tate MD) Acute CVA (cerebrovascular accident) (Acute) Subjective: Seated upright in the ED bed, mildly fatigued appearance, NH stroke scale improving, present. Objective: Physical Examination: General: awake, alert, oriented self, place and recent events, remains cooperative, seated upright in the ED bed in no apparent distress. Skin: normal color, turgor, no icterus, cyanosis. HEENT: AT/NC, extraocular movement assessment complicated by patient vision deficits, complete right eye vision loss, left eye with upper and lower inner quadrant loss, unclear what is chronic from prior strokes, PERRLA, mildly dry MM, no carotid bruits or JVD noted. Lungs: CTA bilaterally, moderate effort, mild decrease BL bases, no rales, ronchi or wheezing. Heart: regular rate and rhythm; no gallop, rub audible. Abdomen: soft, NTTP, ND, normal BS, no HSM. Extremities: no cyanosis, clubbing, or edema. Neurological: patient awake, alert, oriented as noted; cognitive function improving per spouse report, nearing baseline intact; pupils equally reactive to light and accomodation; cranial nerves II-XII grossly normal except noted extraocular movement assessment complicated by patient vision deficits, complete right eye vision loss, left eye with upper and lower inner quadrant loss, unclear what is chronic from prior strokes, moving all 4 extremities however notable right upper and lower extremity 3 out of 5 weakness, left upper extremity 4 out of 5 weakness, unable to perform lower extremity [id number] given left BKA status, equivocal Babinski bilaterally, failed [id number] bilateral upper extremity, no specific sensation loss, speech improved and no obvious facial droop, strength severely generally global decrease secondary to acute presentation and underlying comorbidities. Psychiatric: affect appears fatigued otherwise normal, no acute evidence of depressive or anxiety feelings. - Physical Exam Vitals/I&O's: Vital Signs Temp Pulse Resp BP Pulse Ox 98 F 82 16 116/85 H 97 10/15/19 17:56 10/15/19 18:30 10/15/19 18:30 10/15/19 18:30 10/15/19 18:30 Oxygen Flow Rate (L/min) 2 Oxygen Delivery Method Room Air Weight: 178 lb 9.191 oz Body Mass Index (BMI) 25.6 Finger Stick Blood Glucose 85 Laboratory Results 10/15/19 17:35: WBC 10.9, RBC 4.62, Hgb 13.9, Hct 41.8, MCV 90.5, MCH 30.1, MCHC 33.3, RDW Std Deviation 54.7 H, RDW Coeff of Lawson 16.9 H, Plt Count 417, MPV 9.0, Immature Gran % (Auto) 0.300, Neut % (Auto) 36.8 L, Lymph % (Auto) 48.7 H, Gates % (Auto) 5.2, Eos % (Auto) 8.1 H, Baso % (Auto) 0.9, Absolute Neuts (auto) 4.0, Absolute Lymphs (auto) 5.33 H, Nucleated RBC % 0, Differential Comment SCANNED 10/15/19 17:35: PT 13.9, INR 1.1, APTT 33.3 10/15/19 17:35: Sodium Cancelled, Potassium Cancelled, Chloride Cancelled, Carbon Dioxide Cancelled, Anion Gap Cancelled, BUN Cancelled, Creatinine Cancelled, Estim Creat Clear Calc Cancelled, Est GFR (MDRD) Af Amer Cancelled, Est GFR (MDRD) Non-Af Cancelled, BUN/Creatinine Ratio Cancelled, Glucose Cancelled, Calcium Cancelled, Troponin I Cancelled 10/15/19 18:10: Sodium 135 L, Potassium 3.7, Chloride 102, Carbon Dioxide 24.0, Anion Gap 9, BUN 6 L, Creatinine 1.11, Estim Creat Clear Calc 78.55, Est GFR (MDRD) Af Amer 89, Est GFR (MDRD) Non-Af 73, BUN/Creatinine Ratio 5.4 L, Glucose 82, Calcium 8.5, Troponin I < 0.015 Current Medications Labetalol HCl (Trandate) 20 mg IV X1 PRN PRN Reason: BLOOD PRESSURE Assessment/Plan All Active Problems (Last Reviewed 08/07/19 @ 15:[address] Christie Tate MD) Acute CVA (cerebrovascular accident) (Acute) Cardiac arrest (Resolved) Back pain (Acute) History of left heart catheterization (LHC) (Resolved ~09/14/16) History of cardiac radiofrequency ablation (Resolved ~02/25/13) Tobacco use disorder (Resolved) JUAN (acute kidney injury) (Resolved) Chronic osteomyelitis of left tibia (Resolved) Dermatitis (Resolved) Ischemic ulcer of right foot (Resolved) Osteomyelitis of left lower extremity (Resolved) Thrush, oral (Resolved) Ulceration of below knee amputation stump (Resolved) Wound, surgical, nonhealing (Resolved) The patient is a 54 y/o M w/ PMHx: Cardiomyopathy, unclear type, Systolic CHF CAD, Hx CVA with deficits including mild R sided deficits, Chronic anemia, HTN, HLD, Hx frequent sxs PVC/SVT s/p ablation, Hx DVT and PE w/ positive lupus/anticardiolipin, anti-B IgM anticoagulant, PAD with BL LE stents status post partial left lower extremity amputation, Tobacco use, Dilated Cardiomyopathy who presents to the [facility] ED on 10/15/19 with onset at approximately 3:30 PM on day of ED presentation complete right eye vision loss as well as mild right-sided facial droop and acute on chronic right-sided weakness in addition to slurred speech with patient prior history of a stroke with deficits inclusive of mild mental delay prompting patient to wait his returning home instead of calling EMS or his to alert her of his symptoms following which she was immediately taken to the emergency room for evaluation. 1. Acute on Chronic R sided Weakness, R Facial Droop, Slurred Speech, R eye vision loss concerning for Acute CVA with history prior CVA: Stroke call was performed however patient was not a TPA candidate given on Eliquis therapy. Work-up in the ED included T 98, heart rate initially 107, BP initially 158/110, respiratory rate 13, 98% on room air, CBC with WC 10.9, hemoglobin 13.9, platelet 417 with left shift, unremarkable coags, BMP with sodium 135, BUN/creatinine 6/1.11, troponin less than 0.015, glucose 82, x-ray with no acute cardiopulmonary findings, CT brain with and old left parieto-occipital infarct evidence with encephalomalacia with no acute intracranial findings otherwise, CTA head and neck with no demonstrated aneurysm or abnormality of the [place] of [place], no demonstrated hemodynamically significant stenosis or occlusion of the major intracranial arteries, evidence of status post angioplasty left ICA, normal origin left ICA artery without hemodynamically significant stenosis, mild less than 50% stenosis in the proximal to mid one third aspect of the left ICA unchanged from prior study, EKG with SR with LBBB without acute evidence of ischemia. Will admit to PCU, will obtain MRI Brain, 07/09/19 ECHO w/ EF 35%, evidence diastolic dysfunction, hypokinesis of the septum and anterior wall thus will not repeat, PT/OT/Speech/Nutrition evaluation per protocol. Will allow permissive HTN, maintain on currently on CO aspirin given failed swallow evaluation awaiting speech clearance, transitioning from Eliquis to therapeutic Lovenox, add back high-dose statin once oral intake safe, obtain FLP in a.m., magnesium requested, TSH requested, hemoglobin A1c requested, aspiration and fall precautions. Given patient chronic Eliquis, aspirin, brillinta may need to consider repeat Neurology consultation/follow-up. Will benefit from Acute Rehabilitation placement at discharge. 2. PAD, CAD: s/p difficult bilateral lower extremity stents as well as 07/1119 cardiac arrest with cardiac catheterization at that time with thrombectomy and BRIDGER to the proximal LAD with EF of 35%, given failed swallow evaluation will transition to CO aspirin, holding Brilinta, transition to therapeutic Lovenox, holding hypertensive regimen given permissive hypertension needs with acute CVA presentation, holding oral statin temporarily. 3. Cardiomyopathy, Unclear Type/Systolic CHF: 07/09/19 ECHO w/ EF 35%, evidence diastolic dysfunction, hypokinesis of the septum and anterior wall, transition to CO aspirin, holding Brilinta, holding hypertensive regimen including Coreg and lisinopril given permissive needs, restart once appropriate, holding statin therapy given unsafe oral intake as noted pending speech therapy evaluation, judiciously hydrate given history. 4. Hypertension: We will maintain on permissive hypertension with resumption of home regimen once clinically appropriate, PRN agents if significantly elevated. 5. Hyperlipidemia: We will continue home high-dose statin therapy once oral intake safe, failed swallow evaluation, pending speech evaluation, FLP in AM. 6. Chronic neuropathy: We will continue patient home gabapentin regimen once oral intake safe, failed swallow evaluation, pending speech evaluation. 7. Anxiety and depression: We will continue patient sertraline regimen once oral intake safe, failed swallow evaluation, pending speech evaluation. 8. Hx DVT and PE: Patient w/ positive lupus/anticardiolipin, holding Eliquis given unsafe oral intake, add back once cleared per speech, transitioning to therapeutic Lovenox. 9. Former tobacco use: Quit in March 2019 with prior to this 2 pack/day although toward the end and cut down to 1/2 pack/day, encouraged continued cessation. 10. Former alcohol abuse: Patient has been sober for many years encourage continuation. 11. Hx frequent sxs PVC/SVT: s/p ablation, stable. 12. DVT prophylaxis: SCDs, holding Eliquis given failed swallow evaluation awaiting speech reevaluation, transition to therapeutic Lovenox in the interim. 13. CODE status: Patient CYNTHIA is his who is present and living will is currently in place. Discussed CODE status at length including difference between FULL code, DNR-CCA and DNR-CC status. Following discussions about the differences in these status, requested full CODE STATUS. He previously had been DNR CCA, no intubation however following his most recent stroke his had pushed him to change to a full CODE STATUS when she had healthcare power of estate planning attorney her the report. Advanced Care Planning Face to Face Time: 16 minutes. Inpatient E&M: 85262 Init Hosp L3 Procedures: 17014 Advncd Care Plan 30 Min
--- NOTE | 2019-10-15 19:32 | ED.VISSUMM ---
- ER Visit Summary Date of Service: 10/15/19 Chief Complaint: Stroke History of Present Illness: The patient is a 54 M facial droop, slurred speech, right-sided weakness, and blurry vision in the right eye that started suddenly about 2 hours prior to arrival. Patient has a remote history of stroke with some right-sided weakness at baseline, but this is new and different from his baseline. He also has a history of hypertension, CHF, coronary disease, carotid endarterectomy, DVT, left lower extremity amputation, and he is on Eliquis Physical Examination: Afebrile and vital signs unremarkable except for heart rate of 107. Patient has an NIH stroke scale of 6. He received 2 points related to his level of consciousness, 1 for his right side facial droop, one-point related to right motor weakness, one-point related to right side decrease sensation, and 1 from dysarthria. Test Results: EKG showed sinus rhythm at a rate of 85 with left bundle branch block pattern. CBC unremarkable. BMP, coags, troponin unremarkable. Chest x-ray showed no acute disease. CT brain showed an old left-sided stroke. CTA head and neck showed no aneurysm or occlusion, but he does have chronic stenosis of his left ICA. Emergency Department Course and Treatment: Patient was seen immediately and a stroke team was called. He was not a candidate for TPA as he is on Eliquis. This was discussed with neurology at [facility] via telephone. They advised CTA head and neck and transfer if a large vessel occlusion is present. CTA, as above. No large vessel occlusion. Patient will be admitted. His right side weakness is improving, but he continues to complain of blurred vision on the right, slurred speech, and decreased sensation. Hospitalist was contacted for admission. Patient was treated for nausea with Zofran and then again. He did complain of some jaw pain. His EKG was sinus with a left bundle. No sign of acute ischemia or infarction. Troponin was normal. He is not having chest pain. Treatment Plan: As above Disposition: Admission Impression: Stroke, hypertension, peripheral arterial disease This note was generated with [employer] software. It may contain incorrect words, spelling, and punctuation that were not noted in review of the chart prior to signing ED Disposition - Plan for ED Patient: Referrals: Dharmesh Alonso MD [Primary Care Provider] -
--- NOTE | 2019-10-15 20:40 | MRI_ITS ---
STUDY: MRI BRAIN WITHOUT CONTRAST REASON FOR EXAM: Male, 54 years old. cva, C/O R SIDED WEAKNESS, R VISION BLURRED, FACIAL DROOP H/O PRIOR CVA TECHNIQUE: Standardized multiplanar fat and water weighted pulse sequences were obtained. COMPARISON: CT 10/15/2019 FINDINGS: There is mild cerebral atrophy with widening of the extra-axial spaces and ventricular dilatation. There are a limited number of small white matter hyperintensities, distributed throughout the deep white matter tracts of the cerebral hemispheres, consistent with mild chronic white matter ischemic changes. There is no evidence for recent intracranial ischemia or other cause of cytotoxic edema on diffusion weighted imaging (DWI). Normal T2* images of the brain without demonstrated susceptibility artifact. There is no demonstrated hemosiderin stain. Encephalomalacia and gliosis in the posterior left parietal lobe consistent with a chronic infarct. Normal bilateral basal ganglia. Normal thalami. There is no extra-axial fluid accumulation. Normal flow voids within the major intracranial circulation suggesting patency by spin echo criteria. Normal sella turcica, pituitary gland, infundibular stalk, optic chiasm and hypothalamus. Normal tectal plate and pineal gland. Normal midbrain, ilene and medulla. Normal cerebellum. Normal basal cisterns. Normal bilateral temporal bones. Normal bilateral internal auditory canals. No demonstrated orbital abnormality, within the constraints of a routine brain study. There is mucoperiosteal inflammatory disease of the paranasal sinuses consistent with mild chronic sinusitis. Normal calvarium and skull base. Normal visualized soft tissue structures. Normal visualized upper cervical spine. MRI/Brain without Contrast IMPRESSION: Involutional changes of the brain, as described above. No acute infarct. Electronically Signed: Palmer Javier MD at 9:12 EDT Tel , Service support ,
[2019-10-15 21:26] LABS: Magnesium 2.2 mg/dL (1.6-2.6); T4 Free Direct 1.02 ng/dL (0.76-1.46); Thyroid Stim Hormone (TSH) 0.71 uIU/mL (0.358-3.74)
[2019-10-15 21:28] LABS: Hemoglobin A1c 4.7 % (3.8-5.6)
[2019-10-15] MEDS: 0.9% Normal Saline 1,000 ML 100 ML IV (21:31)
[2019-10-15] MEDS: 0.9% Saline Lock 10 ML Syringe IV (21:31)
[2019-10-15] MEDS: Enoxaparin 80 MG/0.8 ML Syringe SC (22:42)
[2019-10-16] VITALS (8 sets, daily range): BP systolic 88–153; BP diastolic 59–87; PULSE 68–90; RESP 16–18; TEMP 36.6–36.9; O2SAT 94–99; BMI 23.1
[2019-10-16 01:25] LABS: Bedside Glucose 69 mg/dL (70-110)
[2019-10-16] MEDS: 0.9% Saline Lock 10 ML Syringe IV ×2 (01:40→04:26)
[2019-10-16] MEDS: Morphine 2 MG/ML Syringe IV (04:26)
[2019-10-16] MEDS: Enoxaparin 80 MG/0.8 ML Syringe SC (05:08)
--- NOTE | 2019-10-16 05:55 | EKG12_ITS ---
Test Reason : AM Blood Pressure : / mmHG Vent. Rate : 073 BPM Atrial Rate : 073 BPM P-R Int : 162 ms QRS Dur : 156 ms QT Int : 442 ms P-R-T Axes : 061 -30 121 degrees QTc Int : 486 ms Normal sinus rhythm Left axis deviation Left bundle branch block Abnormal ECG When compared with ECG of 15-OCT-2019 17:52, MANUAL COMPARISON REQUIRED, DATA IS UNCONFIRMED Confirmed by JIN BUSH, MAHSA ([id number]), newspaper or periodical editor MACHO SAUCEDO ([id number]) on 10/22/2019 3:41:08 PM Referred By: ANNIKA Confirmed By:MAHSA ABDI MD
[2019-10-16 06:58] LABS: Absolute Lymphocyte Count 3.47 X10^3/uL (0.83-4.51); Absolute Neutrophil Count 3.4 X10^3/uL (2.0-7.7); Basophil# 0.09 X10^3/uL; Basophil% 1.1 % (0-1); Eosinophil# 0.61 X10^3/uL; Eosinophils% 7.6 % (0-5); Hemoglobin 12.3 g/dL (13.0-16.5); Lymphocyte # 3.47 X10^3/ul (4.0); Lymphocyte % 43.2 % (19-41); Mean Corp Hgb Conc 32.4 g/dL (32-36); Mean Corpuscular Hgb 30.3 pg (27.0-32.0); Mean Corpuscular Volume 93.6 fL (80-94); Mean Platelet Vol. 9.2 fl (6.2-12.0); Monocyte# 0.39 X10^3/uL; Monocyte% 4.9 % (0-10); NRBC Flagged by Analyzer 0 % (0-5); Neutrophil # 3.44 X10^3/uL (2.7-7.7); Neutrophil % 42.8 % (47-70); Platelet Count 338 K/mm3 (150-450); RBC Distribution Width CV 17.2 % (11.6-14.6); RBC Distribution Width SD 57.7 fl (35.1-43.9); Red Blood Count 4.06 M/mm3 (4.6-6.2)
[2019-10-16] MEDS: 0.9% Normal Saline 1,000 ML 100 ML IV (06:58)
[2019-10-16 07:22] LABS: Bedside Glucose 89 mg/dL (70-110)
[2019-10-16 07:33] LABS: ALB/GLOB Ratio 0.8 RATIO (0.9-2.4); AST(SGOT) 39 U/L (15-37); Alanine Aminotransfer ALT/SGPT 27 U/L (16-61); Alkaline Phosphatase 100 U/L (45-117); Anion Gap 6 (5-15); BUN 6 mg/dL (7-18); BUN/Creat Ratio 4.7 RATIO (10-20); Calcium,Total 8.2 mg/dL (8.5-10.1); Chloride 106 mmol/L (98-107); Cholesterol 109 mg/dL (200); Creatinine, Serum 1.29 mg/dL (0.70-1.30); EST Glomerular Filtration Rate 62 mL/min (>60); Est Glom Filt Rate - Afr Amer 75 mL/min (>60); Estimated Creatinine Clearance 75.65 ml/min; Globulin 3.7 g/dL (2.2-4.2); Glucose 86 mg/dL (74-106); High Density Lipoprotein 34 mg/dL; Potassium 4.8 mmol/L (3.5-5.1); Protein, Total 6.7 g/dL (6.4-8.2); Sodium Level 139 mmol/L (136-145); Triglycerides 186 mg/dL; Very Low Density Lipoprotein 37 mg/dL (5-40)
--- NOTE | 2019-10-16 10:57 | CASEMGMT ---
Assessment- SW completed assessment with patient at bedside. SW also confirmed his address and phone number as well as his contacts Living situation- Patient lives with his and children in a 1 story home with a ramp entrance. PCP: Dr Alonso Specialists: Dr Tate-Cardiology Pharmacy: [facility]: walker, wheelchair, tub bench, grab bars, crutches, and electric scooter ADL's/IADL's: Patient is independent with bathing himself and managing meds. He does not drive. He uses his electric scooter to get around. Past SNF/rehab: [facility] 4th floor Rehab Unit Past HH: Yes, but he could not remember agency LW: Yes and he is aware it is not on file at [facility] POA: Yes and he is aware it is not on file at [facility] Plan: Patient is not sure about discharge plan at this time. Await PT/OT evaluations to see how he does and what they recommend. Shaunna ERVIN MANAGER OF MANUFACTURING
--- NOTE | 2019-10-16 11:06 | CASEMGMT ---
SW completed PHQ 9 as patient may have had a Stroke. He scored a which indicates minimal Depression. Shaunna ERVIN MSW
[2019-10-16] MEDS: Aspirin 300 MG Suppository RECTAL (12:01)
--- NOTE | 2019-10-16 13:27 | CASEMGMT ---
DARSHAN CM NOTE: Insurance review for In-network facilities for [place]/BCBS insurance is as follows: [facility], [facility], [facility], [facility], [facility], [facility], [facility], [facility] Gina CASTRON DARSHAN CM
--- NOTE | 2019-10-16 14:06 | CHAPLAIN ---
Type of Pastoral Visit _x__ Initial Visit ___ Follow-up Visit ___ On-call Visit ___ General Patient Visit ___ Spiritual Assessment ___ Family Conference ___ Bereavement ___ Rapid Response ___ Code Blue ___ Other (describe below) Pastoral Care Referral From _x__ Patient ___ Family ___ Nurse ___ Physician ___ Felling Bucking Supervisor ___ Hvac Manager ___ Other (describe below) Sacrament/Intervention _x__ Active listening ___ Anointing ___ Faith ___ Bereavement ___ Communion ___ Misty exploration ___ _x__ Life review _x__ Prayer ___ Reconciliation ___ Sacrament of Sick _x__ Supportive presence ___ Wedding ___ Other (describe below) Pastoral Comments
--- NOTE | 2019-10-16 14:16 | PCM.DC.SUM ---
<Francesco Elias - Last Filed: 10/16/19 14:16> Discharge Date and Diagnosis - Problem List Patient Problems: Active and Suspected Problems (Last Reviewed 08/07/19 @ 15:[address] Christie Tate MD) Acute CVA (cerebrovascular accident) (Acute) Date of Admission: 10/15/19 Date of Discharge: 10/16/19 - Primary Discharge Diagnosis Acute Problems: Active Problems Acute CVA marked by slurred speech right sided weakness, right eye vision loss, and right facial droop: adjacent to prior Left parietal occipital infarct Left MCA Right sided vision loss concern for separate retinal vessel occlusion Hx of hypercoagulable state 06/30 + lupus anticoagulant/anticardiolipin/anti-B IgM Hx of CAD with recent BRIDGER and thrombectomy to the LAD 07/18 Hx PAD with BL LE arterial stents and prior Left partial amputation Hx dilated cardiomyopathy with EF 35% Hx carotid endarterectomy 04/22/19 Hx systolic CHF Hx HTN, HLD Hx Depression - Secondary Discharge Diagnosis Chronic Problems: Chronic Problems (Last Reviewed 08/07/19 @ 15:[address] Christie Tate MD) HLD (hyperlipidemia) (Chronic) History of coronary artery stent placement (Chronic) 3.5 x 32 mm Synergy MR BRIDGER to pLAD 07/03/19 Atherosclerosis of coronary artery of [place] heart without angina pectoris (Chronic) CHF (congestive heart failure) (Chronic) History of sudden cardiac arrest successfully resuscitated (Chronic) Chronic renal failure, stage 2 (mild) (Chronic) Depression (Chronic) History of carotid endarterectomy (Chronic) 04/22/19 at [facility] History of ischemic left MCA stroke (Chronic) 04/17/19 Debility (Chronic) due to L MCA stroke 04/17/19 Normochromic normocytic anemia (Chronic) LBBB (left bundle branch block) (Chronic) Dilated cardiomyopathy (Chronic) 27% EF on ECHO 02/18/19........non-ischemic. 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 No acute intracranial abnormality. CT/CTA Head AND Neck W/ Contrast IMPRESSION: 1. There is no demonstrated aneurysm of the [place] of [place]. 2. No demonstrated a hemodynamically significant stenosis or occlusion of the major intracranial arteries. 3. Status post angioplasty the left internal carotid artery origin since the prior study; Normal origin of the left internal carotid (ICA) artery without a hemodynamically significant stenosis. Mild less than 50% stenosis in the proximal to mid one third aspect of the left internal carotid artery is unchanged from the prior study. RAD/Chest 1 View IMPRESSION: No acute process MRI/Brain without Contrast IMPRESSION: Involutional changes of the brain, as described above. No acute infarct. Consultation: [facility] tele med - Neurology Operations: None Procedures: None Summary of Care Provided: Hospital Course: The patient is a 54 year old M with a complex pmhx including hypercoagulable state with several complications related to this. This includes prior ischemic left MCA parietal occipital infarct, CAD with BRIDGER and thrombectomy to the LAD 2/20, severe PAD with prior stents to BL LE arteries and Left partial amputation, carotid endarterectomy, and a hx of DVT and PE. The patient came to the ER with new onset at approximately 1530 of Right eye vision loss described as periheral somewhat sparing the central vision, right facial droop, slurred speech, and right arm and leg weakness. The patient has some chronic right sided weakness from his prior stroke. The patient is already on aspirin, eliquis, and statin. In the ER he had an NIH of 9 but improved to a 6 on 2nd eval and [facility] telestroke service was called. He was deemed not a tPA candidate due to his eliquis therapy. CT brain was negative for acute stroke, and CTA head and neck were negative. He was admitted to the PCU on tele. He underwent an MRI brain the following day that was read by neurology as negative for stroke. Neurology was consulted. Neurology located an acute infarct on the MRI that was adjacent to his prior stroke, and that this was likely the cause of his right sided weakness. Neurology felt that the visual symptoms did not correlate to this stroke however, and that there was likely a second problem such as a retinal vessel occlusion or intraoccular hemorrhage. Neurology recommended urgent transfer to a tertiary facility where the patient may be evaluated by inpatient opthalmology. The patient at this time has ongoing right sided weakness and per neurologys exam right eye right visual field loss. The patient was accepted at [facility] with the hospitalists service Dr. Holland and an opthalmologist Dr. Greenwood. He was transferred in stable condition. This patient was seen by Francesco Elias PA-C under the supervision of Dr. Comer. [] Patient Problems: Active and Suspected Problems (Last Reviewed 08/07/19 @ 15:[address] Christie Tate MD) Acute CVA (cerebrovascular accident) (Acute) - Physical Exam Vitals/I&O's: Vital Signs Temp Pulse Resp BP Pulse Ox 98.4 F 77 18 101/59 L 97 10/16/19 09:05 10/16/19 09:05 10/16/19 09:05 10/16/19 09:05 10/16/19 09:05 Oxygen Flow Rate (L/min) 2 Oxygen Delivery Method Room Air Weight: 180 lb 1.883 oz Body Mass Index (BMI) 23.1 Finger Stick Blood Glucose 85 Intake and Output for Last 24 Hours 10/14/19 10/15/19 10/16/19 23:59 23:59 23:59 Intake Total 246.67 / 246.67 1698.34 / 1698.34 Output Total 100 / 100 1100 / 1100 Balance 146.67 / 146.67 598.34 / 598.34 General: Alert, Oriented x3, Cooperative HEENT: Atraumatic, EOMI, Normocephalic, - - right eye decreased visual acuity Neck: Supple, No JVD, Negative Carotid Bruits Lungs: Clear to auscultation, Normal air movement Cardiovascular: Regular rate, No murmurs Abdomen: Bowel Sounds Present, Soft, Non Tender Extremities: No edema, Capillary Refill Less than 3 Seconds Skin: No rashes, No breakdown Musculoskeletal: No Tenderness to Palpation of Joints or Extremities Neurological: Cranial nerves II-XII grossly intact, - - right sided weakness, no surring appreciated on exam, no facial droop appreciated on exam Psych/Mental Status: Normal Affect, Appropriate, Alert and oriented to time, place, person, mood and affect Laboratory Results 10/15/19 17:35: WBC 10.9, RBC 4.62, Hgb 13.9, Hct 41.8, MCV 90.5, MCH 30.1, MCHC 33.3, RDW Std Deviation 54.7 H, RDW Coeff of Lawson 16.9 H, Plt Count 417, MPV 9.0, Immature Gran % (Auto) 0.300, Neut % (Auto) 36.8 L, Lymph % (Auto) 48.7 H, [place] % (Auto) 5.2, Eos % (Auto) 8.1 H, Baso % (Auto) 0.9, Absolute Neuts (auto) 4.0, Absolute Lymphs (auto) 5.33 H, Nucleated RBC % 0, Differential Comment SCANNED 10/15/19 17:35: PT 13.9, INR 1.1, APTT 33.3 10/15/19 17:35: Sodium Cancelled, Potassium Cancelled, Chloride Cancelled, Carbon Dioxide Cancelled, Anion Gap Cancelled, BUN Cancelled, Creatinine Cancelled, Estim Creat Clear Calc Cancelled, Est GFR (MDRD) Af Amer Cancelled, Est GFR (MDRD) Non-Af Cancelled, BUN/Creatinine Ratio Cancelled, Glucose Cancelled, Calcium Cancelled, Troponin I Cancelled 10/15/19 17:35: Hemoglobin A1c 4.7 10/15/19 17:36: POC Glucose 89 10/15/19 18:10: Sodium 135 L, Potassium 3.7, Chloride 102, Carbon Dioxide 24.0, Anion Gap 9, BUN 6 L, Creatinine 1.11, Estim Creat Clear Calc 78.55, Est GFR (MDRD) Af Amer 89, Est GFR (MDRD) Non-Af 73, BUN/Creatinine Ratio 5.4 L, Glucose 82, Calcium 8.5, Troponin I < 0.015 10/15/19 18:10: Magnesium 2.2, TSH 0.71, Free T4 1.02 10/15/19 21:14: Troponin I < 0.015 10/16/19 00:40: Troponin I < 0.015 10/16/19 01:19: POC Glucose 69 L 10/16/19 06:24: WBC 8.0, RBC 4.06 L, Hgb 12.3 L, Hct 38.0 L, MCV 93.6, MCH 30.3, MCHC 32.4, RDW Std Deviation 57.7 H, RDW Coeff of Lawson 17.2 H, Plt Count 338, MPV 9.2, Immature Gran % (Auto) 0.400, Neut % (Auto) 42.8 L, Lymph % (Auto) 43.2 H, [place] % (Auto) 4.9, Eos % (Auto) 7.6 H, Baso % (Auto) 1.1 H, Absolute Neuts (auto) 3.4, Absolute Lymphs (auto) 3.47, Nucleated RBC % 0 10/16/19 06:24: Sodium 139, Potassium 4.8, Chloride 106, Carbon Dioxide 27.0, Anion Gap 6, BUN 6 L, Creatinine 1.29, Estim Creat Clear Calc 75.65, Est GFR (MDRD) Af Amer 75, Est GFR (MDRD) Non-Af 62, BUN/Creatinine Ratio 4.7 L, Glucose 86, Calcium 8.2 L, Total Bilirubin 0.40, AST 39 H, ALT 27, Alkaline Phosphatase 100, Total Protein 6.7, Albumin 3.0 L, Globulin 3.7, Albumin/Globulin Ratio 0.8 L, Triglycerides 186, Cholesterol 109, LDL Cholesterol 38, VLDL Cholesterol 37, HDL Cholesterol 34 L Current Medications Acetaminophen (Tylenol) 650 mg PO Q6H PRN PRN PRN Reason: Pain Score 1-10/Temp > 100.7 F Al Hydroxide/Mg Hydroxide (Mylanta Ii) 30 ml PO Q6H PRN PRN PRN Reason: Gastric Burning Albuterol Sulfate (Ventolin Aerosols) 2.5 mg INHALATION Q2H PRN PRN PRN Reason: Dyspnea, wheezing Aspirin (Aspirin) 300 mg RECTAL DAILY COUNT INCLUDES THE [facility] Last Admin: 10/16/19 12:01 Dose: 300 mg Documented by: Atorvastatin Calcium (Lipitor) 80 mg PO QHS COUNT INCLUDES THE [facility] Last Admin: 10/15/19 22:43 Dose: Not Given Documented by: Dextrose (D50w Syringe) 0 gm IV X1 PRN; Protocol PRN Reason: Hypoglycemia Enoxaparin Sodium (Lovenox) 80 mg SC Q12@0600,1800 COUNT INCLUDES THE [facility] Last Admin: 10/16/19 05:08 Dose: 80 mg Documented by: Famotidine (Pepcid) 20 mg PO BID COUNT INCLUDES THE [facility] Last Admin: 10/16/19 12:00 Dose: Not Given Documented by: Furosemide (Lasix) 20 mg PO DAILY COUNT INCLUDES THE [facility] Last Admin: 10/16/19 12:01 Dose: Not Given Documented by: Gabapentin (Neurontin) 800 mg PO BID COUNT INCLUDES THE [facility] Last Admin: 10/16/19 12:00 Dose: Not Given Documented by: Glucagon () 1 mg IM .X1 PRN PRN Reason: Hypoglycemia Guaifenesin (Robitussin) 20 ml PO Q4H PRN PRN PRN Reason: COUGH Hydralazine HCl (Apresoline Iv) 5 mg IV Q30M PRN PRN Reason: to maintain BP goals Sodium Chloride () 1,000 mls @ 100 mls/hr IV .Q10H COUNT INCLUDES THE [facility] Last Admin: 10/16/19 06:58 Dose: 100 mls/hr Documented by: Sodium Chloride () 250 mls @ 15 mls/hr IV .[id number] PRN PRN Reason: Saline Flush Sodium Chloride () 250 mls @ 15 mls/hr IV .[id number] PRN PRN Reason: Additional IVPB Infusion Labetalol HCl (Trandate) 10 - 20 mg IV Q10M PRN PRN PRN Reason: to maintain BP goals Magnesium Hydroxide (Milk Of Magnesia) 30 ml PO DAILY PRN PRN PRN Reason: Constipation Melatonin (Melatonin) 3 mg PO QHS PRN PRN PRN Reason: INSOMNIA Nitroglycerin (Nitrostat) 0.4 mg SUBLINGUAL Q5M PRN PRN Reason: CARDIAC/CHEST PAIN Ondansetron HCl (Zofran) 4 mg IV Q8H PRN PRN PRN Reason: NAUSEA/VOMITING Last Admin: 10/15/19 21:31 Dose: 4 mg Documented by: Prochlorperazine Edisylate (Compazine Iv) 5 mg IV Q4H PRN PRN PRN Reason: Breakthrough Nausea/Vomiting Psyllium Hydrophilic Mucilloid (Metamucil) 1 packet PO DAILY PRN PRN PRN Reason: Constipation Senna/Docusate Sodium (Senokot-S, Ami-Colace) 2 tablet PO BID PRN PRN PRN Reason: Constipation Sertraline HCl (Zoloft) 50 mg PO DAILY COUNT INCLUDES THE [facility] Last Admin: 10/16/19 12:00 Dose: Not Given Documented by: Sodium Chloride () 10 - 40 ml IV UD PRN PRN Reason: SALINE FLUSH Last Admin: 10/16/19 04:26 Dose: 10 ml Documented by: Tamsulosin HCl (Flomax) 0.4 mg PO DINNER COUNT INCLUDES THE [facility] Throat Lozenges (Cepacol Sore Throat Lozenge) 1 lozenge MUCOUS MEM Q2H PRN PRN PRN Reason: SORE THROAT Ticagrelor (Brilinta) 90 mg PO BID COUNT INCLUDES THE [facility] Last Admin: 10/16/19 12:00 Dose: Not Given Documented by: Discharge Diet: - - as directed by receiving facility Discharge Activity: - - as directed by receiving facility Home Medications: Medications to take at Discharge Apixaban [Eliquis] 5 mg PO BID 04/23/19 Acetaminophen [Tylenol Tablet] 650 mg PO Q4H PRN PRN tab 04/29/19 Aspirin [Aspirin, Baby] 81 mg PO DAILY@0800 tab.chew 07/07/19 Atorvastatin Calcium [Lipitor] 80 mg PO QHS #30 tab 07/07/19 albuterol sulfate 2.5 mg INHALATION Q6H PRN #75 ml 07/08/19 nebulizer accessories See Rx Instructions .ROUTE .MEDSUPPLY #2 ea 07/08/19 Tamsulosin HCl [Flomax] 0.4 mg PO DINNER #30 cap 07/12/19 albuterol sulfate 90 mcg/actuation aerosol inhaler 1 - 2 puff INHALATION Q6H PRN #8.5 g 07/19/19 sertraline 50 mg tablet 50 mg PO QDAY #30 tab 07/19/19 lisinopril 2.5 mg tablet 2.5 mg PO DAILY #30 tab 08/07/19 carvedilol 6.25 mg tablet 6.25 mg PO BID #60 tab 08/27/19 ticagrelor 90 mg tablet 90 mg PO BID #60 tab 09/18/19 torsemide 10 mg tablet 10 mg PO DAILY #90 tab 09/18/19 gabapentin 800 mg tablet See Rx Instructions .ROUTE .COMPLEX #180 tab 10/10/19 Primary Care Physician: Dharmesh Alonso MD [Primary Care Provider] - Please follow up with your Primary Care Physician in: as directed Disposition: Acute care Hospital Minutes spent on discharge:: 45 Patient Condition:: Stable Medical Necessity - Tobacco Use Smoking Status: Former smoker Tobacco Use: Non-smoker Meaningful Use Info Meaningful Use Diagnoses (Choose all that apply): Ischemic CVA - CVA Therapy Assessed for PT,OT and/or ST?: Yes - Ischemic Stroke Antithrombotic order at d/c?: Yes Dx of Atrial fib/flutter?: No Anticoagulant at discharge?: Yes Statins at discharge?: Yes Primary Dx Acute Ischemic CVA?: Yes IV tPA ordered during stay?: No Reason IV t-PA not ordered: Medical Contraindication <Geneva Comer - Last Filed: 10/16/19 17:12> Discharge Date and Diagnosis - Primary Discharge Diagnosis Acute Problems: Active Problems (Last Reviewed 08/07/19 @ 15:[address] Christie Tate MD) Acute CVA (cerebrovascular accident) (Acute) - Secondary Discharge Diagnosis Chronic Problems: Chronic Problems (Last Reviewed 08/07/19 @ 15:[address] Christie Tate MD) HLD (hyperlipidemia) (Chronic) History of coronary artery stent placement (Chronic) 3.5 x 32 mm Synergy MR BRIDGER to pLAD 07/03/19 Atherosclerosis of coronary artery of [place] heart without angina pectoris (Chronic) CHF (congestive heart failure) (Chronic) History of sudden cardiac arrest successfully resuscitated (Chronic) Chronic renal failure, stage 2 (mild) (Chronic) Depression (Chronic) History of carotid endarterectomy (Chronic) 04/22/19 at [facility] History of ischemic left MCA stroke (Chronic) 04/17/19 Debility (Chronic) due to L MCA stroke 04/17/19 Normochromic normocytic anemia (Chronic) LBBB (left bundle branch block) (Chronic) Dilated cardiomyopathy (Chronic) 27% EF on ECHO 02/18/19........non-ischemic. 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 The patient is a 54 year old M with an extensive past medical history as outlined. He has past medical history of hypercoagulable disorder with prior ischemic left MCA parietal and occipital infarct as well as coronary artery disease with drug-eluting stent placement and thrombectomy to the LAD June 2019. He was admitted through the ED on 10/16/2019 with a complaint of vision loss in the right eye just mainly peripheral with associated right facial droop and slurred speech as well as right and right lower extremity weakness. NIH score was 9 on admission in the ED but had improved to 6 on review. [facility] tele-neurology was consulted he was not deemed a TPA candidate as he was already on Eliquis. CTA of the brain was negative for stroke and CTA of the head and neck were negative. Neurology was consulted after admission and reviewed the MRI and saw an acute infarct on the MRI adjacent to his prior stroke which was likely the cause of his right-sided weakness. However of visual symptoms were thought to not correlate with the findings on the imaging and per neurology, they might be a retinal vessel occlusion no acute hemorrhage going on. Therefore commended that patient be transferred to tertiary center where he would get urgent ophthalmology evaluation. Patient was accepted at [facility]. He was transferred to [facility] 10/16/2019. Patient seen and examined prior to discharge. He planes of blurred vision in the right eye and mild right-sided weakness. Review of symptoms otherwise negative. Labs and vitals reviewed. Home medications reviewed and reconciled. O/E: Vital Signs Temp Pulse Resp BP Pulse Ox 98.4 F 88 18 153/87 H 97 10/16/19 15:05 10/16/19 15:05 10/16/19 15:05 10/16/19 15:05 10/16/19 15:05 [] General: Alert, Oriented x3, Cooperative HEENT: Atraumatic, EOMI, Normocephalic, - - right eye decreased visual acuity Neck: Supple, No JVD, Negative Carotid Bruits Lungs: Clear to auscultation, Normal air movement Cardiovascular: Regular rate, No murmurs Abdomen: Bowel Sounds Present, Soft, Non Tender Extremities: No edema, Capillary Refill Less than 3 Seconds Skin: No rashes, No breakdown Musculoskeletal: No Tenderness to Palpation of Joints or Extremities Neurological: Cranial nerves II-XII grossly intact, - - power in RUE nad RLE is 4/5; Psych/Mental Status: Normal Affect, Appropriate, Alert and oriented to time, place, person, mood and affect Plan is for urgent transfer to [facility] for inpatient ophthalmology evaluation - Physical Exam Vitals/I&O's: Vital Signs Temp Pulse Resp BP Pulse Ox 98.4 F 88 18 153/87 H 97 10/16/19 15:05 10/16/19 15:05 10/16/19 15:05 10/16/19 15:05 10/16/19 15:05 Oxygen Flow Rate (L/min) 2 Oxygen Delivery Method Room Air Weight: 180 lb 1.883 oz Body Mass Index (BMI) 23.1 Finger Stick Blood Glucose 85 Intake and Output for Last 24 Hours 10/14/19 10/15/19 10/16/19 23:59 23:59 23:59 Intake Total 246.67 / 246.67 1698.34 / 1698.34 Output Total 100 / 100 1100 / 1100 Balance 146.67 / 146.67 598.34 / 598.34 Laboratory Results 10/15/19 17:35: WBC 10.9, RBC 4.62, Hgb 13.9, Hct 41.8, MCV 90.5, MCH 30.1, MCHC 33.3, RDW Std Deviation 54.7 H, RDW Coeff of Lawson 16.9 H, Plt Count 417, MPV 9.0, Immature Gran % (Auto) 0.300, Neut % (Auto) 36.8 L, Lymph % (Auto) 48.7 H, [place] % (Auto) 5.2, Eos % (Auto) 8.1 H, Baso % (Auto) 0.9, Absolute Neuts (auto) 4.0, Absolute Lymphs (auto) 5.33 H, Nucleated RBC % 0, Differential Comment SCANNED 10/15/19 17:35: PT 13.9, INR 1.1, APTT 33.3 10/15/19 17:35: Sodium Cancelled, Potassium Cancelled, Chloride Cancelled, Carbon Dioxide Cancelled, Anion Gap Cancelled, BUN Cancelled, Creatinine Cancelled, Estim Creat Clear Calc Cancelled, Est GFR (MDRD) Af Amer Cancelled, Est GFR (MDRD) Non-Af Cancelled, BUN/Creatinine Ratio Cancelled, Glucose Cancelled, Calcium Cancelled, Troponin I Cancelled 10/15/19 17:35: Hemoglobin A1c 4.7 10/15/19 17:36: POC Glucose 89 10/15/19 18:10: Sodium 135 L, Potassium 3.7, Chloride 102, Carbon Dioxide 24.0, Anion Gap 9, BUN 6 L, Creatinine 1.11, Estim Creat Clear Calc 78.55, Est GFR (MDRD) Af Amer 89, Est GFR (MDRD) Non-Af 73, BUN/Creatinine Ratio 5.4 L, Glucose 82, Calcium 8.5, Troponin I < 0.015 10/15/19 18:10: Magnesium 2.2, TSH 0.71, Free T4 1.02 10/15/19 21:14: Troponin I < 0.015 10/16/19 00:40: Troponin I < 0.015 10/16/19 01:19: POC Glucose 69 L 10/16/19 06:24: WBC 8.0, RBC 4.06 L, Hgb 12.3 L, Hct 38.0 L, MCV 93.6, MCH 30.3, MCHC 32.4, RDW Std Deviation 57.7 H, RDW Coeff of Lawson 17.2 H, Plt Count 338, MPV 9.2, Immature Gran % (Auto) 0.400, Neut % (Auto) 42.8 L, Lymph % (Auto) 43.2 H, [place] % (Auto) 4.9, Eos % (Auto) 7.6 H, Baso % (Auto) 1.1 H, Absolute Neuts (auto) 3.4, Absolute Lymphs (auto) 3.47, Nucleated RBC % 0 10/16/19 06:24: Sodium 139, Potassium 4.8, Chloride 106, Carbon Dioxide 27.0, Anion Gap 6, BUN 6 L, Creatinine 1.29, Estim Creat Clear Calc 75.65, Est GFR (MDRD) Af Amer 75, Est GFR (MDRD) Non-Af 62, BUN/Creatinine Ratio 4.7 L, Glucose 86, Calcium 8.2 L, Total Bilirubin 0.40, AST 39 H, ALT 27, Alkaline Phosphatase 100, Total Protein 6.7, Albumin 3.0 L, Globulin 3.7, Albumin/Globulin Ratio 0.8 L, Triglycerides 186, Cholesterol 109, LDL Cholesterol 38, VLDL Cholesterol 37, HDL Cholesterol 34 L Current Medications Acetaminophen (Tylenol) 650 mg PO Q6H PRN PRN PRN Reason: Pain Score 1-10/Temp > 100.7 F Al Hydroxide/Mg Hydroxide (Mylanta Ii) 30 ml PO Q6H PRN PRN PRN Reason: Gastric Burning Albuterol Sulfate (Ventolin Aerosols) 2.5 mg INHALATION Q2H PRN PRN PRN Reason: Dyspnea, wheezing Aspirin (Aspirin) 300 mg RECTAL DAILY COUNT INCLUDES THE [facility] Last Admin: 10/16/19 12:01 Dose: 300 mg Documented by: Atorvastatin Calcium (Lipitor) 80 mg PO QHS COUNT INCLUDES THE [facility] Last Admin: 10/15/19 22:43 Dose: Not Given Documented by: Dextrose (D50w Syringe) 0 gm IV X1 PRN; Protocol PRN Reason: Hypoglycemia Enoxaparin Sodium (Lovenox) 80 mg SC Q12@0600,1800 COUNT INCLUDES THE [facility] Last Admin: 10/16/19 05:08 Dose: 80 mg Documented by: Famotidine (Pepcid) 20 mg PO BID COUNT INCLUDES THE [facility] Last Admin: 10/16/19 12:00 Dose: Not Given Documented by: Furosemide (Lasix) 20 mg PO DAILY COUNT INCLUDES THE [facility] Last Admin: 10/16/19 12:01 Dose: Not Given Documented by: Gabapentin (Neurontin) 800 mg PO BID COUNT INCLUDES THE [facility] Last Admin: 10/16/19 12:00 Dose: Not Given Documented by: Glucagon () 1 mg IM .X1 PRN PRN Reason: Hypoglycemia Guaifenesin (Robitussin) 20 ml PO Q4H PRN PRN PRN Reason: COUGH Hydralazine HCl (Apresoline Iv) 5 mg IV Q30M PRN PRN Reason: to maintain BP goals Sodium Chloride () 1,000 mls @ 100 mls/hr IV .Q10H COUNT INCLUDES THE [facility] Last Admin: 10/16/19 06:58 Dose: 100 mls/hr Documented by: Sodium Chloride () 250 mls @ 15 mls/hr IV .[id number] PRN PRN Reason: Saline Flush Sodium Chloride () 250 mls @ 15 mls/hr IV .[id number] PRN PRN Reason: Additional IVPB Infusion Labetalol HCl (Trandate) 10 - 20 mg IV Q10M PRN PRN PRN Reason: to maintain BP goals Magnesium Hydroxide (Milk Of Magnesia) 30 ml PO DAILY PRN PRN PRN Reason: Constipation Melatonin (Melatonin) 3 mg PO QHS PRN PRN PRN Reason: INSOMNIA Nitroglycerin (Nitrostat) 0.4 mg SUBLINGUAL Q5M PRN PRN Reason: CARDIAC/CHEST PAIN Ondansetron HCl (Zofran) 4 mg IV Q8H PRN PRN PRN Reason: NAUSEA/VOMITING Last Admin: 10/15/19 21:31 Dose: 4 mg Documented by: Prochlorperazine Edisylate (Compazine Iv) 5 mg IV Q4H PRN PRN PRN Reason: Breakthrough Nausea/Vomiting Psyllium Hydrophilic Mucilloid (Metamucil) 1 packet PO DAILY PRN PRN PRN Reason: Constipation Senna/Docusate Sodium (Senokot-S, Ami-Colace) 2 tablet PO BID PRN PRN PRN Reason: Constipation Sertraline HCl (Zoloft) 50 mg PO DAILY COUNT INCLUDES THE [facility] Last Admin: 10/16/19 12:00 Dose: Not Given Documented by: Sodium Chloride () 10 - 40 ml IV UD PRN PRN Reason: SALINE FLUSH Last Admin: 10/16/19 04:26 Dose: 10 ml Documented by: Tamsulosin HCl (Flomax) 0.4 mg PO DINNER COUNT INCLUDES THE [facility] Throat Lozenges (Cepacol Sore Throat Lozenge) 1 lozenge MUCOUS MEM Q2H PRN PRN PRN Reason: SORE THROAT Ticagrelor (Brilinta) 90 mg PO BID COUNT INCLUDES THE [facility] Last Admin: 10/16/19 12:00 Dose: Not Given Documented by: Discharge Diet: Low fat/ Low Cholesterol Inpatient E&M: 85662 Disch Hosp
== END 2019-10-16 17:06 | disposition short-term general hospital (02) | DRG 65 ==
LOC: ED 17:58 → PCU 20:06
PROVIDERS: Admitting Provider Family Medicine; Emergency Provider Emergency Medicine; PCP Internal Medicine; Visit Provider Student in an Organized Health Care Education/Training Program
DX: I63.9 Cerebral infarction, unspecified (principal); I13.0 Hypertensive heart and chronic kidney disease with heart failure and stage 1 through stage 4 chronic kidney disease, or unspecified chronic kidney disease; I50.22 Chronic systolic (congestive) heart failure; D68.62 Lupus anticoagulant syndrome; I42.0 Dilated cardiomyopathy; I69.351 Hemiplegia and hemiparesis following cerebral infarction affecting right dominant side; E78.5 Hyperlipidemia, unspecified; I25.10 Atherosclerotic heart disease of native coronary artery without angina pectoris; F32.9 Major depressive disorder, single episode, unspecified; I73.9 Peripheral vascular disease, unspecified; Z95.5 Presence of coronary angioplasty implant and graft; Z79.01 Long term (current) use of 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s; Z79.02 Long term (current) use of antithrombotics/antiplatelets; Z82.3 Family history of stroke; Z83.3 Family history of diabetes mellitus; Z90.49 Acquired absence of other specified parts of digestive tract; Z82.49 Family history of ischemic heart disease and other diseases of the circulatory system; Z72.0 Tobacco use; I44.7 Left bundle-branch block, unspecified; G62.9 Polyneuropathy, unspecified; F41.9 Anxiety disorder, unspecified; Z79.82 Long term (current) use of aspirin; Z86.711 Personal history of pulmonary embolism; Z86.718 Personal history of other venous thrombosis and embolism; Z89.512 Acquired absence of left leg below knee; Z66 Do not resuscitate; H53.40 Unspecified visual field defects
CPT/HCPCS: 36415; 70450; 70496; 70498; 70551; 71045; 80048; 80053; 80061; 82962; 83036; 83735; 84439; 84443; 84484; 85025; 85610; 85730; 92610; 93005; 94762; 97802; 99251; 99285; J7030; J7040; Q9967; A4216; G0463; J2405

== ENCOUNTER → 2019-11-01 15:13 | Outpatient (CLI) | payer BC, SELFPAY ==
[2019-07-04 09:02] VITALS: BMI 29.8
[2019-11-01 14:44] VITALS: BMI 23.1
[2019-11-01 16:49] LABS: Absolute Lymphocyte Count 4.13 X10^3/uL (0.83-4.51); Absolute Neutrophil Count 4.6 X10^3/uL (2.0-7.7); Basophil# 0.12 X10^3/uL; Basophil% 1.1 % (0-1); Eosinophil# 0.92 X10^3/uL; Eosinophils% 8.8 % (0-5); Hematocrit 38.9 % (40-54); Hemoglobin 12.7 g/dL (13.0-16.5); Lymphocyte # 4.13 X10^3/ul (4.0); Lymphocyte % 39.4 % (19-41); Mean Corp Hgb Conc 32.6 g/dL (32-36); Mean Corpuscular Volume 91.7 fL (80-94); Mean Platelet Vol. 9.7 fl (6.2-12.0); Monocyte# 0.69 X10^3/uL; Monocyte% 6.6 % (0-10); NRBC Flagged by Analyzer 0 % (0-5); Neutrophil # 4.59 X10^3/uL (2.7-7.7); Neutrophil % 43.7 % (47-70); POSITIVE MORPHOLOGY YES; Platelet Count 567 K/mm3 (150-450); RBC Distribution Width CV 16.7 % (11.6-14.6); Red Blood Count 4.24 M/mm3 (4.6-6.2); White Blood Count 10.5 K/mm3 (4.4-11.0)
[2019-11-01 17:20] LABS: Anion Gap 10 (5-15); BUN 7 mg/dL (7-18); Calcium,Total 9.3 mg/dL (8.5-10.1); Chloride 104 mmol/L (98-107); EST Glomerular Filtration Rate 83 mL/min (>60); Est Glom Filt Rate - Afr Amer 100 mL/min (>60); Glucose 86 mg/dL (74-106); Potassium 3.4 mmol/L (3.5-5.1); Sodium Level 136 mmol/L (136-145); T4 Free Direct 1.11 ng/dL (0.76-1.46); Thyroid Stim Hormone (TSH) 0.84 uIU/mL (0.358-3.74)
[2019-11-01 18:25] LABS: Differential Indicated SCAN CRITERIA MET; Platelet Estimate SLT INC (ADEQ); Red Cell Morphology NORM C+C NORMAL (NORM C&C)
== END ==
PROVIDERS: PCP Internal Medicine; Referring Provider Internal Medicine; Visit Provider Internal Medicine
DX: R00.0 Tachycardia, unspecified (principal); I63.9 Cerebral infarction, unspecified
CPT/HCPCS: 36415; 80048; 84439; 84443; 85025

== ENCOUNTER → 2019-11-07 09:06 | Outpatient (CLI) | payer BC, SELFPAY ==
[2019-07-04 09:02] VITALS: BMI 29.8
[2019-11-06 13:28] VITALS: BMI 22.3
== END ==
PROVIDERS: PCP Internal Medicine; Referring Provider Specialist; Visit Provider Specialist
DX: I48.91 Unspecified atrial fibrillation (principal)
CPT/HCPCS: 93225; 93226

== ENCOUNTER 2019-11-07 17:27 | Inpatient (IN) | payer BC, SELFPAY ==
[2019-07-04 09:02] VITALS: BMI 29.8
[2019-11-06 13:28] VITALS: BMI 22.3
[2019-11-07] VITALS (11 sets, daily range): BP systolic 120–155; BP diastolic 79–105; PULSE 83–94; RESP 12–16; TEMP 36.4–36.8; O2SAT 97–99; BMI 23.1; BMI 22.4
--- NOTE | 2019-11-07 17:49 | CT_ITS ---
STUDY: CT BRAIN WITHOUT CONTRAST REASON FOR EXAM: Male, 54 years old. STROKE PROTOCOL,LT HEMISPHERIC STROKE, VISUAL FIELD LOSS, RT SIDE WEAKNESS RADIATION DOSAGE (If Supplied By Facility): CTDIvol = ( 60.81 ) mGy, DLP = ( 1135.50 ) mGycm TECHNIQUE: Transaxial CT imaging of the brain was performed without administration of intravenous contrast material. Individualized dose optimization techniques were used for this CT. COMPARISON: October 15, 2019 FINDINGS: Normal soft tissue structures. Normal calvarium. There is mild cerebral atrophy with widening of the extra-axial spaces and ventricular dilatation. There is a stable region of encephalomalacia involving the left parietal and occipital lobes consistent with an old infarct. There are areas of decreased attenuation within the white matter tracts of the supratentorial brain, consistent with microvascular disease changes. Normal basal ganglia and thalami. Normal brainstem. There is mild cerebellar atrophy. There is no intracranial hemorrhage. There are no findings of an acute ischemic infarction. There is minimal opacification of the frontal and ethmoid sinuses consistent with a history of sinusitis. CT/Brain/Head without Contrast IMPRESSION: Chronic involutional changes of the brain. Stable encephalomalacia within the left parieto-occipital region consistent with an old infarct. Small vessel ischemia. Electronically Signed: Dona Lopez MD at 18:11 EDT Tel , Service support ,
--- NOTE | 2019-11-07 17:49 | EKG12_ITS ---
Test Reason : CP Blood Pressure : / mmHG Vent. Rate : 093 BPM Atrial Rate : 093 BPM P-R Int : 128 ms QRS Dur : 162 ms QT Int : 422 ms P-R-T Axes : 063 -09 120 degrees QTc Int : 524 ms Normal sinus rhythm Left bundle branch block Abnormal ECG Confirmed by NGUYEN BUSH, NICHOL ([id number]), loan expeditor PAULA PERKINS ([id number]) on 11/11/2019 2:07:31 PM Referred By: HARPREET Confirmed By:SWETHA CEDILLO MD
--- NOTE | 2019-11-07 17:50 | CT_ITS ---
STUDY: CTA HEAD AND NECK WITH CONTRAST REASON FOR EXAM: Male, 54 years old. ? DISSECTION/STROKE RADIATION DOSAGE (If Supplied By Facility): CTDIvol = ( 15.16 ) mGy, DLP = ( 1278.46 ) mGycm TECHNIQUE: CT angiography was performed with a multi-detector CT scanner. Data acquisition was obtained from the skull base through the vertex following intravenous administration of 100cc isovue 370. MIP images were reconstructed from the axial data set. Post-processing of the angiographic images was performed, with multiplanar reformation and 3D reconstruction. Individualized dose optimization techniques were used for this CT. COMPARISON: No relevant priors. FINDINGS: Examination is technically suboptimal. Anterior portion of the intracranial images are cut off the [id number] and not visible. Examination is performed in the venous phase with veins brighter than the arteries, further limiting evaluation. Reconstructions are not performed correctly with only 3-D low-resolution images available. 2-D reconstructions are not diagnostically adequate and extremely small and pixelated. Some diagnostic information is available. Bilateral common carotid and internal carotid and external carotid arteries are patent with mild bulb atherosclerosis. Bilateral cervical vertebral arteries are patent. Bilateral basal skull carotids, anterior and middle cerebral arteries and proximal branches have adequate flow without high-grade stenosis or occlusion. Bilateral vertebral intradural arteries are codominant and patent. Basilar, superior cerebellar and posterior cerebral arteries are opacified. Dural venous sinuses are patent. There is a difficult to visualize left parietal infarct. There is an elongated upper tracheal infraglottic flattened left lateral wall lesion versus mucus. CT/CTA Head AND Neck W/ Contrast IMPRESSION: 1. Technically limited exam. 2. No cervical vascular stenosis. 3. No intracranial large vessel occlusion. 4. Infraglottic upper tracheal finding, possibly mucous plug versus lesion. Direct visual endoscopy is advised. Electronically Signed: Agnes Kaba, at 20:12 EDT Tel , Service support ,
--- NOTE | 2019-11-07 17:51 | CT_ITS ---
STUDY: CTA CHEST REASON FOR EXAM: Male, 54 years old. Evaluation for dissection or stroke RADIATION DOSAGE (If Supplied By Facility): CTDIvol = ( 15.16 ) mGy, DLP = ( 1278.46 ) mGycm TECHNIQUE: The examination was performed with the intravenous administration of IV 100ML ISOVUE 370. Post-processing of the angiographic images was performed, with multiplanar reformation and 3D reconstruction. Individualized dose optimization techniques were used for this CT. COMPARISON: None. FINDINGS: Examination is mildly degraded by motion and reconstruction artifact. Diagnostic information is available. Aorta is intact with normal diameter with moderate diffuse atherosclerosis. There is severe coronary artery disease with stents in the LAD. Left ventricle is moderately dilated. Right heart is normal. Pericardium is normal. Mediastinal contents are normal. Lungs are clear. Airways are patent. CT/CTA Chest W/WO Contrast IMPRESSION: 1. No acute aortic abnormality. 2. Moderate aortic atherosclerosis. 3. Severe coronary artery disease. Electronically Signed: Agnes Kaba, at 19:01 EDT Tel , Service support ,
--- NOTE | 2019-11-07 17:52 | ED.VIS.STROK ---
History of Present Illness Chief Complaint: Chest Pain Detail of Chief Complaint: Onset of symptoms 1 hour ago with chest pain Informant: Patient Onset: Today - 1 hour prior to presentation Quality and Location: Right Face Paresthesia, Right Arm Parasthesia, Right Leg Parasthesia, Right Arm Weakness, Right Leg Weakness, Difficulty with Ambulation Onset: 1 hour prior to presentation Current Severity: Moderate Maximum Severity: Moderate Worsened by: History of hypercoagulable state Relieved by: Nothing Associated Symptoms: Headache - Right sided, Chest Pain - Mid chest. Negative for: Nausea, Vomiting Narrative: Patient is a 54-year-old male with history of multiple medical problems including hypercoagulable state and prior stroke. He is status post amputation left lower extremity, BKA. He is on Lovenox. He is also on Brilinta and Plavix. He states he has 3 types of hypercoagulable states. His headache, chest pain and neuro symptoms started 1 hour prior to presentation. He states his eyes do not move to the right. The visual loss is new. Patient denies nausea, vomiting. He denies shortness of breath. Prior similar symptoms: Yes Recent Illness/Hospitalization: No - Past Medical History (1) Acute CVA (cerebrovascular accident) Status: Acute (2) Paroxysmal atrial fibrillation Status: Acute (3) Atherosclerosis of coronary artery of alutiiq heart without angina pectoris Status: Chronic (4) CHF (congestive heart failure) Status: Chronic (5) Chronic renal failure, stage 2 (mild) Status: Chronic (6) Depression Status: Chronic (7) Dilated cardiomyopathy Status: Chronic Comment: 27% EF on ECHO 02/18/19........non-ischemic. 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 Comment: Patient is on Coumadin for PE (15) Normochromic normocytic anemia Status: Chronic (16) Peripheral arterial disease Status: Chronic Comment: BL LE's....multiple stents in both legs (17) Status post below knee amputation of left lower extremity Status: Chronic Comment: at [facility] for severe PVD with non-healing wounds and recurrent infections LLE Revision done in 2018 (18) Tobacco use disorder Status: Resolved Past Medical History - Allergies and Home Meds Allergies/Adverse Reactions: Allergies Penicillins Allergy (Verified 11/07/19 17:31) Swelling adhesive tape Adverse Reaction (Verified 11/07/19 17:31) Rash oxycodone [From OxyContin] Adverse Reaction (Verified 11/07/19 17:31) Other it makes me go nuts Primary Care Physician: Dharmesh Alonso MD [Primary Care Provider] - Surgical History: cholecystectomy, - - Left CEAy 04/22/2019 at [facility], Left BKA for severe peripheral vascular disease with nonhealing wounds, cellulitis and osteomyelitis, Multiple stents in both lower extremities secondary to peripheral vascular disease, Multiple debridements of nonhealing wounds of the left lower extremity, Cardiac PCI x 1, cholecystectomy. Smoking Status: Former smoker - Family History Maternal Family History: Family History (Last Reviewed 11/06/19 @ 14:[address] Christie Tate MD) Mother Diabetes CVA (cerebral vascular accident) Myocardial infarction Father Cancer Kidney disease Family History: Reports: Cancer, Diabetes, Heart Disease, Renal Disease Paternal Family History: Family History (Last Reviewed 11/06/19 @ 14:[address] Christie Tate MD) Mother Diabetes CVA (cerebral vascular accident) Myocardial infarction Father Cancer Kidney disease Family History: Reports: Cancer Review of Systems General: Denies: Chills, Fever, Sweats Eyes: Reports: Visual changes - bilaterally. Denies: Blurred Vision - bilaterally, Diplopia ENT: Denies: Rhinorrhea, Sore throat Cardiovascular: Reports: Chest pain. Denies: Palpitations, Heart racing Respiratory: Denies: Dyspnea, Cough, Dyspnea on exertion Gastrointestinal: Denies: Abdominal pain, Nausea, Vomiting, Diarrhea, Melena, Hematochezia Genitourinary: Denies: Dysuria, Hematuria, Frequency Musculoskeletal: Denies: Back pain, Extremity Pain Skin: Denies: Rash, Wounds Neurological: Reports: Headache, Weakness, Parasthesia, Numbness Psych: Reports: Depression Hematologic: Reports: Easy bruising. Denies: Easy bleeding Allergy: Denies: Uticaria, Swelling of the mouth, Swelling of the tongue STROKE Vital Signs/Narrative: Vital Signs Temp Pulse Resp BP Pulse Ox 11/07/19 17:28 97.6 F L 94 15 149/102 H 99 Inital Vital Signs reviewed: Yes - NIHSS Initial 1a Level of Consciousness: 0 1b LOC Questions (Score 2 if aphasic/stupor): 1 1c LOC Commands (Only score 1st attempt): 0 2 Best Gaze (If aphasic, use reflexive mvmts.): 2 - Deficit from prior stroke 3 Visual: 2 - Patient has a homonymous hemianopsia with loss of right visual field 4 Facial Palsy: 0 5 Motor Arm Right (UN = amputation/fusion): 1 5 Motor Arm Left: 0 6 Motor Leg Right: 2 6 Motor Leg Left: 0 7 Limb ataxia (Only + if out of proportion): 0 8 Sensory (Aphasia/stupor=0 or 1, coma=2): 1 9 Best Language: 0 10 Dysarthria (mute, coma=2, intubated=UN): 1 11 Extinction and Inattention (only scored if +): 1 Total Score: 11 General: Well nourished, Well developed Head: Normocephalic, Atraumatic Eyes: Perrl, EOMI. Negative for: Pale conjunctiva, Scleral icterus ENT: Moist mucous membranes, No rhinorrhea Neck: Supple, Nontender, No lymphadenopathy, No JVD, - - No carotid bruits appreciated Cardiovascular: Regular rate, Regular rhythm, No murmurs, Normal S1, Normal S2 Respiratory: No distress, CTA bilaterally, Chest nontender Abdomen: Soft, Nontender, Nondistended, Normal bowel sounds Back: Nontender, Normal Inspection Extremities: Nontender, No edema Skin: Normal color, No rash, No Trauma. Negative for: Cyanosis, Diaphoresis, Jaundice Neurological: Alert, Oriented x3, Cranial nerves II-XII grossly intact. Negative for: Normal Strength, Normal Sensation, Normal Gait Psychological: Normal affect Diagnostic/Tx/Re-eval Impressions Brain CT 11/07/19 17:49 IMPRESSION: Chronic involutional changes of the brain. Stable encephalomalacia within the left parieto-occipital region consistent with an old infarct. Small vessel ischemia. Electronically Signed: Dona Lopez MD at 18:11 EDT Tel , Service support , 11/07/19 17:49 Brain/Head without Contrast [CT] Stat 11/07/19 17:50 CTA Head AND Neck W/ Contrast [CT] Stat 11/07/19 17:51 CTA Chest W/WO Contrast [CT] Stat Laboratory Results 11/07/19 11/07/19 11/07/19 17:45 17:45 17:45 WBC 10.5 RBC 4.09 L Hgb 12.5 L Hct 37.5 L MCV 91.7 MCH 30.6 MCHC 33.3 RDW Std Deviation 57.0 H RDW Coeff of Lawson 17.2 H Plt Count 465 H MPV 9.1 Immature Gran % (Auto) 0.300 Neut % (Auto) 38.0 L Lymph % (Auto) 44.1 H Liberty % (Auto) 9.4 Eos % (Auto) 7.3 H Baso % (Auto) 0.9 Absolute Neuts (auto) 4.0 Absolute Lymphs (auto) 4.64 H Nucleated RBC % 0 Diff Path Review May foll Atypical Lymphocytes RARE Platelet Estimate SLT INC RBC Morphology N CHROM Anisocytosis RARE Macrocytosis RARE Ovalocytes RARE PT 13.6 INR 1.1 APTT 45.9 H Sodium 135 L Potassium 3.4 L Chloride 103 Carbon Dioxide 24.0 Anion Gap 8 BUN 12 Creatinine 1.03 Estim Creat Clear Calc 94.86 Est GFR (MDRD) Af Amer 97 Est GFR (MDRD) Non-Af 80 BUN/Creatinine Ratio 11.7 Glucose 88 Calcium 8.7 Troponin I < 0.015 POC Glucose 11/07/19 17:48 WBC RBC Hgb Hct MCV MCH MCHC RDW Std Deviation RDW Coeff of Lawson Plt Count MPV Immature Gran % (Auto) Neut % (Auto) Lymph % (Auto) Liberty % (Auto) Eos % (Auto) Baso % (Auto) Absolute Neuts (auto) Absolute Lymphs (auto) Nucleated RBC % Diff Path Review Atypical Lymphocytes Platelet Estimate RBC Morphology Anisocytosis Macrocytosis Ovalocytes PT INR APTT Sodium Potassium Chloride Carbon Dioxide Anion Gap BUN Creatinine Estim Creat Clear Calc Est GFR (MDRD) Af Amer Est GFR (MDRD) Non-Af BUN/Creatinine Ratio Glucose Calcium Troponin I POC Glucose 95 Patient was discussed with radiologist and neurologist from [facility]. Patient is not a candidate for thrombolytics. There is no LVO therefore he does not require transfer. Will speak with hospitalist for admission. - Medical Decision Making Stroke Team Activated: Yes Reviewed Inclusion/Exclusion criteria: Yes IV Alteplase (t-PA) Administered: No - Patient on anticoagulant. No contraindications for IV Alteplase (t-PA) administration.: Yes - Is contraindication he is on anticoagulant, Lovenox With abrupt onset of chest pain and neuro symptoms need to rule out dissection. CT of the head with CTA of the head neck and chest were ordered. Stroke order set was initiated. Critical care time (excluding procedures): Discussing w/Patient &/or Family/User Acceptance Tester - Critical care time 22 minutes which included discussion with patient and caregiver, discussion with radiologist and neurologist for in [facility] and [facility] respectively. Discussion with hospitalist for admission. ED Disposition - Plan for ED Patient: Disposition: Acute Care Hospital [facility] Diagnosis: Acute ischemic left MCA stroke, Atherosclerosis of coronary artery of alutiiq heart without angina pectoris, Chronic renal failure, stage 2 (mild), Essential hypertension, HLD (hyperlipidemia), Hypercoagulable state, Peripheral arterial disease Referrals: Dharmesh Alonso MD [Primary Care Provider] -
[2019-11-07 18:01] LABS: Bedside Glucose 95 mg/dL (70-110)
[2019-11-07 18:02] LABS: Absolute Lymphocyte Count 4.64 X10^3/uL (0.83-4.51); Basophil% 0.9 % (0-1); Eosinophil# 0.77 X10^3/uL; Eosinophils% 7.3 % (0-5); Hematocrit 37.5 % (40-54); Hemoglobin 12.5 g/dL (13.0-16.5); Lymphocyte # 4.64 X10^3/ul (4.0); Lymphocyte % 44.1 % (19-41); Mean Corp Hgb Conc 33.3 g/dL (32-36); Mean Corpuscular Hgb 30.6 pg (27.0-32.0); Mean Corpuscular Volume 91.7 fL (80-94); Mean Platelet Vol. 9.1 fl (6.2-12.0); Monocyte# 0.99 X10^3/uL; Monocyte% 9.4 % (0-10); NRBC Flagged by Analyzer 0 % (0-5); POSITIVE MORPHOLOGY YES; Platelet Count 465 K/mm3 (150-450); RBC Distribution Width CV 17.2 % (11.6-14.6); Red Blood Count 4.09 M/mm3 (4.6-6.2); White Blood Count 10.5 K/mm3 (4.4-11.0)
[2019-11-07 18:04] LABS: Differential Indicated SCAN CRITERIA MET
[2019-11-07 18:05] LABS: International Normalized Ratio 1.1; Prothrombin Time (Protime)PT. 13.6 SECONDS (11.7-14.9)
[2019-11-07 18:07] LABS: Partial Thromboplast Time 45.9 Seconds (24.1-36.2)
[2019-11-07 18:30] LABS: Anion Gap 8 (5-15); Anisocytosis RARE; Atypical Lymphocyte RARE %; BUN 12 mg/dL (7-18); BUN/Creat Ratio 11.7 RATIO (10-20); Calcium,Total 8.7 mg/dL (8.5-10.1); Chloride 103 mmol/L (98-107); Creatinine, Serum 1.03 mg/dL (0.70-1.30); EST Glomerular Filtration Rate 80 mL/min (>60); Est Glom Filt Rate - Afr Amer 97 mL/min (>60); Estimated Creatinine Clearance 94.86 ml/min; Glucose 88 mg/dL (74-106); Macrocytosis RARE; Ovalocyte RARE; Platelet Estimate SLT INC (ADEQ); Potassium 3.4 mmol/L (3.5-5.1); Red Cell Morphology N CHROM NORMAL (NORM C&C); Sodium Level 135 mmol/L (136-145)
[2019-11-07] MEDS: Morphine 4 MG/ML Syringe IV (18:40)
[2019-11-07] MEDS: Ondansetron 4 MG/2 ML Vial IV (18:41)
--- NOTE | 2019-11-07 19:35 | PCM.HP.STD ---
History of Present Illness Date of Admission: 11/07/19 Chief Complaint: headache, right arm weakness and tingling, blurred vision in right eye The patient is a 54 year old M with an extensive past medical history as outlined including 2 previous strokes and hypercoagulable disorder currently on Lovenox as well as Brilinta and Plavix. Patient was admitted through the ED on 11/07/2019 with a complaint of headache, worsening of blurred vision in his right eye as well as right arm and leg weakness and paresthesias. Symptoms started at around 5 PM on day of presentation. He denied any shortness of breath, chest pain, nausea vomiting or diarrhea. It is stated in the ED note the patient complained of chest pain but at the time I reviewed him he denied having any chest pain. He also said that the vision loss in his right eye had progressively been worsening as he had had blurred vision which has been worsening in his right eye since his last 2 strokes and recently saw an eye doctor in [place] 2 weeks ago. He was told that he needed a specialized type of eye doctor but he is not sure exactly which time he has not been given the referral to see the physician. Patient in the ED, vitals show temperature of 91.8 Fahrenheit with blood pressure of 145/96, pulse rate of 83 respiratory rate of 15. Chemistry was significant for potassium of 3.4 and sodium of 135. Initial troponin was negative. CBC showed hemoglobin of 12.5 and platelets of 465 but was otherwise unremarkable. Brain CT showed chronic involutional changes of the brain with stable encephalomalacia within the left parietal occipital region consistent with an old infarct and small vessel ischemia. CTA of the head and neck were done and results were pending. Chest CTA done showed moderate atherosclerosis in the aorta with severe coronary artery disease and no acute aortic abnormality as well as no evidence of PE. Patient was not given TPA as he was noted TPA candidate since he had given himself therapeutic Lovenox earlier in the day. He has been admitted to be managed for acute CVA. Past Medical History Past Medical History (Chronic Problems): Chronic Problems (Last Reviewed 11/06/19 @ 14:[address] Christie Tate MD) HLD (hyperlipidemia) (Chronic) History of coronary artery stent placement (Chronic) 3.5 x 32 mm Synergy MR BRIDGER to pLAD 07/03/19 Atherosclerosis of coronary artery of [place] heart without angina pectoris (Chronic) CHF (congestive heart failure) (Chronic) History of sudden cardiac arrest successfully resuscitated (Chronic) Chronic renal failure, stage 2 (mild) (Chronic) Depression (Chronic) History of carotid endarterectomy (Chronic) 04/22/19 at [facility] History of ischemic left MCA stroke (Chronic) 04/17/19 Debility (Chronic) due to L MCA stroke 04/17/19 Normochromic normocytic anemia (Chronic) LBBB (left bundle branch block) (Chronic) Dilated cardiomyopathy (Chronic) 27% EF on ECHO 02/18/19........non-ischemic. normal coronaries on cath August [address] 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 Christie Tate MD) Paroxysmal atrial fibrillation (Acute) I48.0 HLD (hyperlipidemia) (Chronic) E78.5 Acute CVA (cerebrovascular accident) (Acute) I63.9 Atherosclerosis of coronary artery of [place] heart without angina pectoris (Chronic) I25.10 Cardiac arrest (Resolved) I46.9 Back pain (Acute) M54.9 CHF (congestive heart failure) (Chronic) I50.9 History of sudden cardiac arrest successfully resuscitated (Chronic) Z86.74 Chronic renal failure, stage 2 (mild) (Chronic) N18.2 Depression (Chronic) F32.9 History of ischemic left MCA stroke (Chronic) Z86.73 04/17/19 Debility (Chronic) R53.81 due to L MCA stroke 04/17/19 Normochromic normocytic anemia (Chronic) D64.9 Dilated cardiomyopathy (Chronic) I42.0 27% EF on ECHO 02/18/19........non-ischemic. normal coronaries on cath August [address] [facility] Essential hypertension (Chronic) I10 Tobacco use disorder (Resolved) F17.200 meterman current use of anticoagulant (Chronic) Z79.01 Patient is on Coumadin for PE Peripheral arterial disease (Chronic) I73.9 BL LE's....multiple stents in both legs Hypercoagulable state (Chronic) D68.59 Positive lupus anticoagulant, positive anticardiolipin anti B IgM, and increased homocystine level Anemia D64.9 Arthritis M19.90 Vascular disease I99.9 JUAN (acute kidney injury) (Resolved) N17.9 Chronic osteomyelitis of left tibia (Resolved) M86.662 chronic osteomyelitis left tibia at BKA stump Dermatitis (Resolved) L30.9 Gallstones K80.20 Ischemic ulcer of right foot (Resolved) L97.519 Osteomyelitis of left lower extremity (Resolved) M86.9 Thrush, oral (Resolved) B37.0 Ulceration of below knee amputation stump (Resolved) T87.89, L97.809 Wound, surgical, nonhealing (Resolved) T81.89XA History of DVT (deep vein thrombosis) (Inactive) Z86.718 History of pulmonary embolism (Inactive) Z86.711 Methicillin resistant Staphylococcus aureus infection (Inactive) A49.02 Pain of amputation stump of left lower extremity (Inactive) T87.89, M79.605 Partial loss of skin graft (Inactive) T86.828 Personal history of osteomyelitis (Inactive) Z87.39 SVT (supraventricular tachycardia) (Inactive) I47.1 had an ablation in the past Allergies Penicillins Allergy (Verified 11/07/19 17:31) Swelling adhesive tape Adverse Reaction (Verified 11/07/19 17:31) Rash oxycodone [From OxyContin] Adverse Reaction (Verified 11/07/19 17:31) Other it makes me go nuts Home Medications: Ambulatory Orders Medication Instructions Recorded albuterol sulfate 2.5 mg INHALATION Q6H PRN #75 ml 07/08/19 nebulizer accessories See Rx Instructions .ROUTE 07/08/19 .MEDSUPPLY #2 ea albuterol sulfate 90 mcg/actuation 1 - 2 puff INHALATION Q6H PRN #8.5 07/19/19 aerosol inhaler g enoxaparin 80 mg/0.8 mL 80 mg SC Q12H 10/22/19 subcutaneous syringe brimonidine 0.2 % eye drops 1 drp OPHTHALMIC Q8H 11/01/19 Aspirin [Aspirin, Baby] 81 mg PO DAILY@0800 11/07/19 Atorvastatin Calcium [Lipitor] 80 mg PO QHS 11/07/19 Carvedilol 12.5 mg PO BID 11/07/19 Furosemide [Lasix] 20 mg PO DAILY 11/07/19 Gabapentin 800 mg PO BID 11/07/19 Lisinopril 2.5 mg PO DAILY 11/07/19 Potassium Chloride 10 meq PO DAILY 11/07/19 Sertraline HCl [Zoloft] 50 mg PO QDAY 11/07/19 Tamsulosin HCl [Flomax] 0.4 mg PO DINNER 11/07/19 Ticagrelor [Brilinta] 90 mg PO BID 11/07/19 Surgical History: Surgical History (Last Reviewed 11/06/19 @ 14:[address] Christie Tate MD) History of coronary artery stent placement (Chronic) Z95.5 3.5 x 32 mm Synergy MR BRIDGER to pLAD 07/03/19 History of carotid endarterectomy (Chronic) Z98.890 04/22/19 at [facility] History of left heart catheterization (LHC) (Resolved) Onset Date: ~09/14/16 Z98.890 Normal Coronaries....august [address] 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 Psychiatric History: Anxiety, Depression Smoking Status: Former smoker Alcohol: None Drugs: None - *Family History Maternal Family History: Family History (Last Reviewed 11/06/19 @ 14:[address] Christie Tate MD) Mother Diabetes CVA (cerebral vascular accident) Myocardial infarction Father Cancer Kidney disease History Items: Cancer, Diabetes, Heart Disease, Renal Disease Paternal Family History: Family History (Last Reviewed 11/06/19 @ 14:[address] Christie Tate MD) Mother Diabetes CVA (cerebral vascular accident) Myocardial infarction Father Cancer Kidney disease History Items: Cancer Review of Systems Constitutional: Denies: Chills, Fever, Malaise, Weakness, Weight Change Eyes: Reports: Blurred vision, Vision Change. Denies: Double vision HEENT: Denies: Head Aches, Sinus Congestion, Sinus Drainage Cardiovascular: Denies: Chest Pain, Palpitations Respiratory: Denies: Cough, Shortness of Breath, Shortness of breath at rest, Shortness of breath upon exertion, Sputum production Gastrointestinal: Denies: Abdominal Pain, Nausea, Vomiting Genitourinary: Denies: Dysuria Musculoskeletal: Denies: Joint Pain, Joint Tenderness Skin: Denies: Rash, Wounds Neurological: Reports: Blurred vision, Focal weakness, Headaches, Numbness, Tingling. Denies: Difficulty swallowing Psychiatric: Denies: Anxiety, Depression, Homicidal Ideations, Suicidal Ideations Hematologic/ Lymphatic: Denies: Easy Bruising, Easy Bleeding VTE Information - Inpt Only VTE Present on Admission: No VTE Pharm Prophylaxis ordered?: Yes Patient Problems: Active and Suspected Problems (Last Reviewed 11/06/19 @ 14:[address] Christie Tate MD) Acute ischemic left MCA stroke (Acute) - Physical Exam Vitals/I&O's: Vital Signs Temp Pulse Resp BP Pulse Ox 97.8 F 83 15 145/96 H 97 11/07/19 18:56 11/07/19 19:00 11/07/19 19:00 11/07/19 19:00 11/07/19 19:00 Oxygen Delivery Method Room Air Weight: 174 lb 13.225 oz Body Mass Index (BMI) 22.4 Finger Stick Blood Glucose 95 General: Alert, Oriented x3, Cooperative, No apparent distress HEENT: - - patient has loss of vision in right eye. Oral: Moist Mucosa Neck: Supple, No JVD, Negative Carotid Bruits Lungs: Clear to auscultation, Normal air movement, No rhonchi, No wheeze, No rales Cardiovascular: Regular rate, Regular Rhythm, Normal S1, Normal S2, No murmurs Abdomen: Bowel Sounds Present, Soft, Non Tender, Non-Distended, No Hepato-splenomegaly Extremities: No clubbing, No cyanosis, No edema, Capillary Refill Less than 3 Seconds Skin: No rashes, No breakdown Musculoskeletal: No Tenderness to Palpation of Joints or Extremities Lymphatic: No Cervical, Supraclavicular, or Inguinal Adenopathy Neurological: - - power in RUE and RLE is 4-/5; normal sensation to light touch. No facial palsy; has loss of vision in right eye, which is chronic. NIHSS is 10 Psych/Mental Status: Normal Affect, Alert and oriented to time, place, person, mood and affect Laboratory Results 11/07/19 17:45: WBC 10.5, RBC 4.09 L, Hgb 12.5 L, Hct 37.5 L, MCV 91.7, MCH 30.6, MCHC 33.3, RDW Std Deviation 57.0 H, RDW Coeff of Lawson 17.2 H, Plt Count 465 H, MPV 9.1, Immature Gran % (Auto) 0.300, Neut % (Auto) 38.0 L, Lymph % (Auto) 44.1 H, [place] % (Auto) 9.4, Eos % (Auto) 7.3 H, Baso % (Auto) 0.9, Absolute Neuts (auto) 4.0, Absolute Lymphs (auto) 4.64 H, Nucleated RBC % 0, Diff Path Review May foll, Atypical Lymphocytes RARE, Platelet Estimate SLT INC, RBC Morphology N CHROM, Anisocytosis RARE, Macrocytosis RARE, Ovalocytes RARE 11/07/19 17:45: PT 13.6, INR 1.1, APTT 45.9 H 11/07/19 17:45: Sodium 135 L, Potassium 3.4 L, Chloride 103, Carbon Dioxide 24.0, Anion Gap 8, BUN 12, Creatinine 1.03, Estim Creat Clear Calc 94.86, Est GFR (MDRD) Af Amer 97, Est GFR (MDRD) Non-Af 80, BUN/Creatinine Ratio 11.7, Glucose 88, Calcium 8.7, Troponin I < 0.015 11/07/19 17:48: POC Glucose [address] 11/07/19 17:49 IMPRESSION: Chronic involutional changes of the brain. Stable encephalomalacia within the left parieto-occipital region consistent with an old infarct. Small vessel ischemia. Electronically Signed: Dona Lopez MD at 18:11 EDT Tel , Service support , Chest CTA 11/07/19 17:51 IMPRESSION: 1. No acute aortic abnormality. 2. Moderate aortic atherosclerosis. 3. Severe coronary artery disease. Electronically Signed: Agnes Kaba, at 19:01 EDT Tel , Service support , Current Medications Labetalol HCl (Trandate) 20 mg IV X1 PRN PRN Reason: BLOOD PRESSURE Assessment/Plan All Active Problems (Last Reviewed 11/06/19 @ 14:[address] Christie Tate MD) Acute ischemic left MCA stroke (Acute) Paroxysmal atrial fibrillation (Acute) Acute CVA (cerebrovascular accident) (Acute) Cardiac arrest (Resolved) Back pain (Acute) History of left heart catheterization (LHC) (Resolved ~09/14/16) History of cardiac radiofrequency ablation (Resolved ~02/25/13) Tobacco use disorder (Resolved) JUAN (acute kidney injury) (Resolved) Chronic osteomyelitis of left tibia (Resolved) Dermatitis (Resolved) Ischemic ulcer of right foot (Resolved) Osteomyelitis of left lower extremity (Resolved) Thrush, oral (Resolved) Ulceration of below knee amputation stump (Resolved) Wound, surgical, nonhealing (Resolved) 54 y/o admitted with a complaint of headache, blurred and worsening vision and weakness on right side 1. Acute CVA NIHSS at time of review is 10 not a tPA candidate as he received lovenox therapeutic dose earlier in the day for hypercoagulable disorder on aspirin, brilinta and lovenox on statin; will continue This is patient's third stroke in about 6 months with his last 2 being less than a month ago when he was admitted and discharged on 10/16/2019. Patient was previously on Eliquis but now he is on Lovenox; per review of his PCPs note, at [facility], he was taken off Eliquis and started on Lovenox. Will get MRI of the brain and neurology consult. EKG showed no acute ST changes. During his previous admission, there was a concern of retinal vessel occlusion or intraocular hemorrhage and neurology recommended urgent transfer to a tertiary facility where he may be evaluated by inpatient ophthalmology so he was transferred to [facility]. Patient however states that he saw the eye doctor stay but was told that he would need further follow-up and vision is gradually worsened. Patient counseled that in light of his hypercoagulable disease, CAD and PAD, he is very high risk for stroke and he understood that he is at risk of recurrent strokes. 2. Hypokalemia: Potassium is 3.4. Will replace. 3.CAD: On aspirin and statin as as well as Brilinta. and carvedilol Status post cardiac arrest and has known EF of 35% and has had drug-eluting stent placement to the proximal LAD. 4. PAD Status post right BKA. On aspirin and Brilinta as well as statin. 5. Afib: Rate controlled. Has had ablation due to history of PVCs and SVTs. 6. HFrEF: Has cardiomyopathy with EF of 35%. On Lasix 20 mg daily and lisinopril 2.5 mg daily. 7. Hypercoagulable disorder: So has history of DVT and PE. Has positive lupus and anticardiolipin antibodies. On therapeutic Lovenox. 8. Anxiety and depression: On sertraline. 9. Hyperlipidemia: On statin. CODE STATUS: Full code Patient counseled extensively about different types of CODE STATUS including full code, DNR CCA and DNR CCA. Patient elects to be full code. Total nfit-vs-eldn time 17 minutes. OBSV E&M: 93152 Initial observation care L3 Procedures: 43034 Advncd Care Plan 30 Min
[2019-11-07] MEDS: BRIMONIDINE 0.2% 5ML BOTTLE 1 DRP OPHTHALMIC (22:05)
[2019-11-07] MEDS: Carvedilol 12.5 MG Tablet PO (22:06)
[2019-11-07] MEDS: TICAGRELOR 90 MG TABLET PO (22:06)
[2019-11-07] MEDS: Enoxaparin 80 MG/0.8 ML Syringe SC (22:06)
[2019-11-07] MEDS: Atorvastatin Calcium 80 MG Tablet PO (22:07)
[2019-11-07] MEDS: Morphine 2 MG/ML Syringe IV (23:58)
[2019-11-07] MEDS: 0.9% Saline Lock 10 ML Syringe IV (23:58)
[2019-11-08] VITALS (14 sets, daily range): BP systolic 119–148; BP diastolic 76–91; PULSE 65–97; RESP 14–18; TEMP 36.4–37.1; O2SAT 97–100; BMI 22.4
[2019-11-08] MEDS: BRIMONIDINE 0.2% 5ML BOTTLE 1 DRP OPHTHALMIC ×3 (05:58→22:02)
[2019-11-08 07:31] LABS: Absolute Lymphocyte Count 2.35 X10^3/uL (0.83-4.51); Absolute Neutrophil Count 3.9 X10^3/uL (2.0-7.7); Basophil# 0.08 X10^3/uL; Basophil% 1.1 % (0-1); Eosinophil# 0.61 X10^3/uL; Eosinophils% 8.1 % (0-5); Hematocrit 35.1 % (40-54); Hemoglobin 11.5 g/dL (13.0-16.5); Lymphocyte # 2.35 X10^3/ul (4.0); Lymphocyte % 31.3 % (19-41); Mean Corp Hgb Conc 32.8 g/dL (32-36); Mean Corpuscular Hgb 30.6 pg (27.0-32.0); Mean Corpuscular Volume 93.4 fL (80-94); Mean Platelet Vol. 9.2 fl (6.2-12.0); Monocyte# 0.56 X10^3/uL; Monocyte% 7.4 % (0-10); NRBC Flagged by Analyzer 0 % (0-5); Neutrophil % 51.8 % (47-70); Platelet Count 423 K/mm3 (150-450); RBC Distribution Width CV 17.3 % (11.6-14.6); RBC Distribution Width SD 58.4 fl (35.1-43.9); Red Blood Count 3.76 M/mm3 (4.6-6.2); White Blood Count 7.5 K/mm3 (4.4-11.0)
[2019-11-08] MEDS: Aspirin 81 MG TAB.CHEW PO (07:55)
[2019-11-08] MEDS: Gabapentin 800 MG Tablet PO ×2 (07:55→16:00)
--- NOTE | 2019-11-08 08:00 | MRI_ITS ---
STUDY: MRI BRAIN WITHOUT CONTRAST REASON FOR EXAM: Male, 54 years old. cva, R facial, arm, leg parathesis, vision loss, headache TECHNIQUE: Standardized multiplanar fat and water weighted pulse sequences were obtained. COMPARISON: 11/07/2019 CT of the head FINDINGS: There is mild cerebral atrophy with widening of the extra-axial spaces and ventricular dilatation. There are a limited number of small white matter hyperintensities, distributed throughout the deep white matter tracts of the cerebral hemispheres, consistent with mild chronic white matter ischemic changes. There is left parietotemporal encephalomalacia and gliosis, consistent with prior insult. Normal bilateral basal ganglia. Normal thalami. There is no extra-axial fluid accumulation. Normal flow voids within the major intracranial circulation suggesting patency by spin echo criteria. Normal sella turcica, pituitary gland, infundibular stalk, optic chiasm and hypothalamus. Normal tectal plate and pineal gland. Normal midbrain, ilene and medulla. Normal cerebellum. Normal basal cisterns. MRI/Brain without Contrast IMPRESSION: No acute intracranial abnormality. Left parietotemporal encephalomalacia and gliosis consistent with prior infarct. Electronically Signed: Mario Jones MD at 10:42 EDT Tel , Service support ,
[2019-11-08 08:19] LABS: Anion Gap 9 (5-15); BUN 14 mg/dL (7-18); Calcium,Total 8.7 mg/dL (8.5-10.1); Chloride 103 mmol/L (98-107); Cholesterol 168 mg/dL (200); Creatinine, Serum 1.08 mg/dL (0.70-1.30); EST Glomerular Filtration Rate 76 mL/min (>60); Est Glom Filt Rate - Afr Amer 92 mL/min (>60); Glucose 96 mg/dL (74-106); High Density Lipoprotein 35 mg/dL; Potassium 4.5 mmol/L (3.5-5.1); Sodium Level 135 mmol/L (136-145); Triglycerides 425 mg/dL
[2019-11-08] MEDS: TICAGRELOR 90 MG TABLET PO ×2 (09:43→22:02)
[2019-11-08] MEDS: Lisinopril 2.5 MG Tablet PO (09:43)
[2019-11-08] MEDS: Furosemide 20 MG Tablet PO (09:43)
[2019-11-08] MEDS: Carvedilol 12.5 MG Tablet PO ×2 (09:43→22:02)
[2019-11-08] MEDS: Sertraline 50 MG Tablet PO (09:43)
[2019-11-08] MEDS: Enoxaparin 80 MG/0.8 ML Syringe SC ×2 (09:45→22:02)
[2019-11-08 11:49] LABS: Pathologist Review Reviewed
--- NOTE | 2019-11-08 14:12 | CASEMGMT ---
Readmission chart review: Pt initially admitted 10/14-10/16/2019 for CVA, MRI was negative but then neuro stated pt did have CVA and pt was transferred to [facility] at that time. Pt had no intervention done at [facility] and then did f/u with PCP, Dr. Alonso s/p discharge from there and also had holter monitor placed. Pt then returned to [facility] ED on 11/07/2019 for chest pain for 1 hour. Pt dx'd with Left MCA CVA this dx and MRI suggests this is mostly new infarct to same area. Pt was already on lovenox and brilinta prior to admission. Pt also has hx of hypercoagulable disorder and had been on jail coumadin. CM to follow for PT/OT evals and for any further discharge planning/needs. Mary SEXTON CM
--- NOTE | 2019-11-08 14:32 | PCM.PN.HOSP ---
Patient Problems: Active and Suspected Problems (Last Reviewed 11/06/19 @ 14:[address] Christie Tate MD) Acute ischemic left MCA stroke (Acute) Subjective: Patient seen and examined this morning. He had an uneventful night. Headache is better. He has no complaints this morning. Review of symptoms otherwise negative. Labs and vitals reviewed. He has remained hemodynamically stable. Vitals/I&O's: Vital Signs Temp Pulse Resp BP Pulse Ox 98.0 F 86 18 123/76 H 100 11/08/19 10:00 11/08/19 11:00 11/08/19 10:00 11/08/19 10:00 11/08/19 10:00 Oxygen Delivery Method Room Air Weight: 174 lb 13.225 oz Body Mass Index (BMI) 22.4 Finger Stick Blood Glucose 95 Intake and Output for Last 24 Hours 11/06/19 11/07/19 11/08/19 23:59 23:59 23:59 Intake Total 150 / 150 485 / 485 Output Total 500 / 500 900 / 900 Balance -350 / -350 -415 / -415 General: Alert, Oriented x3, Cooperative, No apparent distress HEENT: - - patient has blurred vision in right eye. Oral: Moist Mucosa Neck: Supple, No JVD, Negative Carotid Bruits Lungs: Clear to auscultation, Normal air movement, No rhonchi, No wheeze, No rales Cardiovascular: Regular rate, Regular Rhythm, Normal S1, Normal S2, No murmurs Abdomen: Bowel Sounds Present, Soft, Non Tender, Non-Distended, No Hepato-splenomegaly Extremities: No clubbing, No cyanosis, No edema, Capillary Refill Less than 3 Seconds Skin: No rashes, No breakdown Musculoskeletal: No Tenderness to Palpation of Joints or Extremities Lymphatic: No Cervical, Supraclavicular, or Inguinal Adenopathy Neurological: - - power in RUE and RLE is 4-/5; normal sensation to light touch. No facial palsy; has loss of vision in right eye, which is chronic. NIHSS is 8 Psych/Mental Status: Normal Affect, Alert and oriented to time, place, person, mood and affect Laboratory Results 11/07/19 17:45: WBC 10.5, RBC 4.09 L, Hgb 12.5 L, Hct 37.5 L, MCV 91.7, MCH 30.6, MCHC 33.3, RDW Std Deviation 57.0 H, RDW Coeff of Lawson 17.2 H, Plt Count 465 H, MPV 9.1, Immature Gran % (Auto) 0.300, Neut % (Auto) 38.0 L, Lymph % (Auto) 44.1 H, [place] % (Auto) 9.4, Eos % (Auto) 7.3 H, Baso % (Auto) 0.9, Absolute Neuts (auto) 4.0, Absolute Lymphs (auto) 4.64 H, Nucleated RBC % 0, Diff Path Review Reviewed, Atypical Lymphocytes RARE, Platelet Estimate SLT INC, RBC Morphology N CHROM, Anisocytosis RARE, Macrocytosis RARE, Ovalocytes RARE 11/07/19 17:45: PT 13.6, INR 1.1, APTT 45.9 H 11/07/19 17:45: Sodium 135 L, Potassium 3.4 L, Chloride 103, Carbon Dioxide 24.0, Anion Gap 8, BUN 12, Creatinine 1.03, Estim Creat Clear Calc 94.86, Est GFR (MDRD) Af Amer 97, Est GFR (MDRD) Non-Af 80, BUN/Creatinine Ratio 11.7, Glucose 88, Calcium 8.7, Troponin I < 0.015 11/07/19 17:48: POC Glucose 95 11/07/19 21:10: Troponin I < 0.015 11/08/19 00:03: Troponin I < 0.015 11/08/19 06:56: WBC 7.5, RBC 3.76 L, Hgb 11.5 L, Hct 35.1 L, MCV 93.4, MCH 30.6, MCHC 32.8, RDW Std Deviation 58.4 H, RDW Coeff of Lawson 17.3 H, Plt Count 423, MPV 9.2, Immature Gran % (Auto) 0.300, Neut % (Auto) 51.8, Lymph % (Auto) 31.3, [place] % (Auto) 7.4, Eos % (Auto) 8.1 H, Baso % (Auto) 1.1 H, Absolute Neuts (auto) 3.9, Absolute Lymphs (auto) 2.35, Nucleated RBC % 0 11/08/19 06:56: Sodium 135 L, Potassium 4.5, Chloride 103, Carbon Dioxide 23.0, Anion Gap 9, BUN 14, Creatinine 1.08, Estim Creat Clear Calc 87.70, Est GFR (MDRD) Af Amer 92, Est GFR (MDRD) Non-Af 76, BUN/Creatinine Ratio 13.0, Glucose 96, Calcium 8.7, Triglycerides 425 H, Cholesterol 168, LDL Cholesterol TNP, VLDL Cholesterol TNP, HDL Cholesterol 35 L Diagnostic Data Brain CT 11/07/19 17:49 IMPRESSION: Chronic involutional changes of the brain. Stable encephalomalacia within the left parieto-occipital region consistent with an old infarct. Small vessel ischemia. Electronically Signed: Dona Lopez MD at 18:11 EDT Tel , Service support , Head/Neck CTA 11/07/19 17:50 IMPRESSION: 1. Technically limited exam. 2. No cervical vascular stenosis. 3. No intracranial large vessel occlusion. 4. Infraglottic upper tracheal finding, possibly mucous plug versus lesion. Direct visual endoscopy is advised. Electronically Signed: Agnes Kaba at 20:12 EDT Tel , Service support , Chest CTA 11/07/19 17:51 IMPRESSION: 1. No acute aortic abnormality. 2. Moderate aortic atherosclerosis. 3. Severe coronary artery disease. Electronically Signed: Agnes Kaba at 19:01 EDT Tel , Service support , Brain MRI 11/08/19 08:00 IMPRESSION: No acute intracranial abnormality. Left parietotemporal encephalomalacia and gliosis consistent with prior infarct. Electronically Signed: Mario Jones MD at 10:42 EDT Tel , Service support , Current Medications Albuterol Sulfate (Ventolin Aerosols) 2.5 mg INHALATION Q6H PRN PRN Reason: shortness of breath or wheezing Aspirin (Aspirin, Baby) 81 mg PO DAILY@0800 [facility] Last Admin: 11/08/19 07:55 Dose: 81 mg Documented by: Atorvastatin Calcium (Lipitor) 80 mg PO QHS [facility] Last Admin: 11/07/19 22:07 Dose: 80 mg Documented by: Brimonidine Tartrate (Brimonidine 0.2% 5ml Bottle) 1 drop OPHTHALMIC Q8 [facility] Last Admin: 11/08/19 13:45 Dose: 1 drop Documented by: Carvedilol (Coreg) 12.5 mg PO BID [facility] Last Admin: 11/08/19 09:43 Dose: 12.5 mg Documented by: Dextrose (D50w Syringe) 0 gm IV X1 PRN; Protocol PRN Reason: Hypoglycemia Enoxaparin Sodium (Lovenox) 80 mg SC Q12 [facility] Last Admin: 11/08/19 09:45 Dose: 80 mg Documented by: Furosemide (Lasix) 20 mg PO DAILY [facility] Last Admin: 11/08/19 09:43 Dose: 20 mg Documented by: Gabapentin (Neurontin) 800 mg PO BIDCM [facility] Last Admin: 11/08/19 07:55 Dose: 800 mg Documented by: Glucagon () 1 mg IM .X1 PRN PRN Reason: Hypoglycemia Hydralazine HCl (Apresoline Iv) 5 mg IV Q30M PRN PRN Reason: to maintain BP goals Sodium Chloride () 250 mls @ 15 mls/hr IV .[id number] PRN PRN Reason: Saline Flush Sodium Chloride () 250 mls @ 15 mls/hr IV .[id number] PRN PRN Reason: Additional IVPB Infusion Labetalol HCl (Trandate) 10 - 20 mg IV Q10M PRN PRN PRN Reason: to maintain BP goals Lisinopril (Zestril) 2.5 mg PO DAILY [facility] Last Admin: 11/08/19 09:43 Dose: 2.5 mg Documented by: Morphine Sulfate () 2 mg IV Q3H PRN PRN PRN Reason: Pain Score 6-10/10 Last Admin: 11/07/19 23:58 Dose: 2 mg Documented by: Ondansetron HCl (Zofran) 4 mg IV Q8H PRN PRN PRN Reason: NAUSEA/VOMITING Potassium Chloride (K-Dur) 10 meq PO DAILY [facility] Last Admin: 11/08/19 09:43 Dose: 10 meq Documented by: Sertraline HCl (Zoloft) 50 mg PO DAILY [facility] Last Admin: 11/08/19 09:43 Dose: 50 mg Documented by: Sodium Chloride () 10 - 40 ml IV UD PRN PRN Reason: SALINE FLUSH Last Admin: 11/07/19 23:58 Dose: 20 ml Documented by: Tamsulosin HCl (Flomax) 0.4 mg PO DINNER [facility] Ticagrelor (Brilinta) 90 mg PO BID [facility] Last Admin: 11/08/19 09:43 Dose: 90 mg Documented by: STROKE Vital Signs/Narrative: Vital Signs Pulse 11/08/19 11:00 86 Medical Necessity - Tobacco Use Smoking Status: Former smoker Assessment/Plan All Active Problems (Last Reviewed 11/06/19 @ 14:[address] Christie Tate MD) Acute ischemic left MCA stroke (Acute) Paroxysmal atrial fibrillation (Acute) Acute CVA (cerebrovascular accident) (Acute) Cardiac arrest (Resolved) Back pain (Acute) History of left heart catheterization (LHC) (Resolved ~09/14/16) History of cardiac radiofrequency ablation (Resolved ~02/25/13) Tobacco use disorder (Resolved) JUAN (acute kidney injury) (Resolved) Chronic osteomyelitis of left tibia (Resolved) Dermatitis (Resolved) Ischemic ulcer of right foot (Resolved) Osteomyelitis of left lower extremity (Resolved) Thrush, oral (Resolved) Ulceration of below knee amputation stump (Resolved) Wound, surgical, nonhealing (Resolved) 54 y/o admitted with a complaint of headache, blurred and worsening vision and weakness on right side 1. Acute CVA NIHSS this morning is 8 MRi of the brain this morning showed left parietotemporal encephalomalacia and gliosis consistent with prior infarct on aspirin, brilinta and lovenox and statin Per discussion with neurology, recommended an EEG to make sure that patient is not having a seizure with post ictal residual neurological effects. If EEG is abnormal, then will reconsult neurology for patient to be started on antiseizure medication. If EEG is normal, recommendation is for patient to get extended EEG on outpatient basis to assess for possible seizure disorder. Patient counseled that in light of his hypercoagulable disease, CAD and PAD, he is very high risk for stroke and he understood that he is at risk of recurrent strokes. 2D echo(07/10/2019): EF of 35% with evidence of diastolic dysfunction and hypokinesis of the septum and anterior wall. 2. Hypokalemia: resolved. 3.CAD: On aspirin and statin as as well as Brilinta. and carvedilol Status post cardiac arrest and has known EF of 35% and has had drug-eluting stent placement to the proximal LAD. 4. PAD Status post right BKA. On aspirin and Brilinta as well as statin. 5. Afib: Rate controlled. Has had ablation due to history of PVCs and SVTs. 6. HFrEF: Has cardiomyopathy with EF of 35%. On Lasix 20 mg daily and lisinopril 2.5 mg daily. 7. Hypercoagulable disorder: So has history of DVT and PE. Has positive lupus and anticardiolipin antibodies. On therapeutic Lovenox. 8. Anxiety and depression: On sertraline. 9. Hyperlipidemia: On statin. CODE STATUS: Full code OBSV E&M: 32362 Subsequent observation care L2
[2019-11-08] MEDS: Tamsulosin HCl 0.4 MG Capsule PO (16:00)
--- NOTE | 2019-11-08 16:27 | CASEMGMT ---
Social Work PHQ-9 completed for positive stroke. Pt scored 8 - not interested in any resources. Discussed dep/anxiety meds. Pt stated meds were started 2018 by PCP and have been effective. Pt understandable that if no longer effective to contact PCP - pt stated he felt comfortable doing that. Pt stated his speech had been more slurred. Discussed continued therapy after DC. Pt stated he went to [facility] prior and would be agreeable to continue there at [place]. No other needs identified. Reviewed PT/OT/ST recommendations - home with outpatient therapy. Notified C.M. Will refer to [facility] PT/OT/ST at [place]. GEORGE Metcalf [employer]GETABLE TIER
--- NOTE | 2019-11-08 16:38 | CASEMGMT ---
Script on chart for OP therapy for pt at discharge, physician will need to sign. Mary SEXTON CM
[2019-11-08] MEDS: Morphine 2 MG/ML Syringe IV (19:50)
[2019-11-08] MEDS: Atorvastatin Calcium 80 MG Tablet PO (22:02)
[2019-11-09] VITALS (7 sets, daily range): BP systolic 128–165; BP diastolic 77–79; PULSE 55–80; RESP 14–18; TEMP 36.5–36.7; O2SAT 97–98
[2019-11-09] MEDS: BRIMONIDINE 0.2% 5ML BOTTLE 1 DRP OPHTHALMIC (06:14)
[2019-11-09] MEDS: Morphine 2 MG/ML Syringe IV ×2 (06:14→09:22)
[2019-11-09] MEDS: Sertraline 50 MG Tablet PO (09:04)
[2019-11-09] MEDS: Furosemide 20 MG Tablet PO (09:04)
[2019-11-09] MEDS: Gabapentin 800 MG Tablet PO (09:04)
[2019-11-09] MEDS: Aspirin 81 MG TAB.CHEW PO (09:04)
[2019-11-09] MEDS: TICAGRELOR 90 MG TABLET PO (09:04)
[2019-11-09] MEDS: Carvedilol 12.5 MG Tablet PO (09:04)
[2019-11-09] MEDS: Lisinopril 2.5 MG Tablet PO (09:04)
[2019-11-09] MEDS: Enoxaparin 80 MG/0.8 ML Syringe SC (09:05)
[2019-11-09] MEDS: 0.9% Saline Lock 10 ML Syringe IV (09:22)
--- NOTE | 2019-11-09 11:32 | DCINST_ITS ---
- Discharge Diagnoses Current Active Problems: Current Active and Chronic Problems (Last Reviewed 11/06/19 @ 14:[address] Christie Tate MD) Acute ischemic left MCA stroke (Acute) HLD (hyperlipidemia) (Chronic) Atherosclerosis of coronary artery of [place] without angina pectoris (Chronic) Chronic renal failure, stage 2 (mild) (Chronic) Essential hypertension (Chronic) Peripheral arterial disease (Chronic) BL LE's....multiple stents in both legs Hypercoagulable state (Chronic) Positive lupus anticoagulant, positive anticardiolipin anti B IgM, and increased homocystine level You will use the following diet at home:: Cardiac Your food should be the consistency of: Regular Your liquids should be the consistency of: Regular/Thin Discharge Activity: Return to Normal Activity Weight Bearing Status: Weight bearing as tolerated Call your doctor if you observe: Numbness or Tingling, Shortness of breath, Dizziness, - - focal weakness, slurred speech. Instructions: ED Stroke Completed Additional Instructions: follow up with outpatient neurology, to get a prolonged outpatient EEG to assess for seizures. Allergies/Adverse Reactions: Allergies Penicillins Allergy (Verified 11/07/19 17:31) Swelling adhesive tape Adverse Reaction (Verified 11/07/19 17:31) Rash oxycodone [From OxyContin] Adverse Reaction (Verified 11/07/19 17:31) Other it makes me go nuts Medications to take at Discharge albuterol sulfate 2.5 mg INHALATION Q6H PRN #75 ml 07/08/19 nebulizer accessories See Rx Instructions .ROUTE .MEDSUPPLY #2 ea 07/08/19 albuterol sulfate 90 mcg/actuation aerosol inhaler 1 - 2 puff INHALATION Q6H PRN #8.5 g 07/19/19 enoxaparin 80 mg/0.8 mL subcutaneous syringe 80 mg SC Q12H 10/22/19 brimonidine 0.2 % eye drops 1 drp OPHTHALMIC Q8H 11/01/19 Aspirin [Aspirin, Baby] 81 mg PO DAILY@0800 11/07/19 Atorvastatin Calcium [Lipitor] 80 mg PO QHS 11/07/19 Carvedilol 12.5 mg PO BID 11/07/19 Furosemide [Lasix] 20 mg PO DAILY 11/07/19 Gabapentin 800 mg PO BID 11/07/19 Lisinopril 2.5 mg PO DAILY 11/07/19 Potassium Chloride 10 meq PO DAILY 11/07/19 Sertraline HCl [Zoloft] 50 mg PO QDAY 11/07/19 Tamsulosin HCl [Flomax] 0.4 mg PO DINNER 11/07/19 Ticagrelor [Brilinta] 90 mg PO BID 11/07/19 Primary Care Physician: Dharmesh Alonso MD [Primary Care Provider] - Please follow up with your Primary Care Physician in: 1-2 weeks Test Results: Test results from this visit will be discussed in further detail at your follow- up appointment, if applicable. Please Follow Up With: Jonnie Schaefer MD When: 1-2 weeks Proposed Discharge Date: 11/09/19
--- NOTE | 2019-11-09 11:46 | PCM.DC.SUM ---
Discharge Date and Diagnosis Date of Admission: 11/07/19 Date of Discharge: 11/09/19 - Primary Discharge Diagnosis Acute Problems: Active Problems (Last Reviewed 11/06/19 @ 14:[address] Christie Tate MD) Acute ischemic left MCA stroke (Acute) - Secondary Discharge Diagnosis Chronic Problems: Chronic Problems (Last Reviewed 11/06/19 @ 14:[address] Christie Tate MD) HLD (hyperlipidemia) (Chronic) History of coronary artery stent placement (Chronic) 3.5 x 32 mm Synergy MR BRIDGER to pLAD 07/03/19 Atherosclerosis of coronary artery of [place] heart without angina pectoris (Chronic) CHF (congestive heart failure) (Chronic) History of sudden cardiac arrest successfully resuscitated (Chronic) Chronic renal failure, stage 2 (mild) (Chronic) Depression (Chronic) History of carotid endarterectomy (Chronic) 04/22/19 at [facility] History of ischemic left MCA stroke (Chronic) 04/17/19 Debility (Chronic) due to L MCA stroke 04/17/19 Normochromic normocytic anemia (Chronic) LBBB (left bundle branch block) (Chronic) Dilated cardiomyopathy (Chronic) 27% EF on ECHO 02/18/19........non-ischemic. 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 Stable encephalomalacia within the left parieto-occipital region consistent with an old infarct. Small vessel ischemia. Electronically Signed: Dona Lopez MD at 18:11 EDT Tel , Service support , Head/Neck CTA 11/07/19 17:50 IMPRESSION: 1. Technically limited exam. 2. No cervical vascular stenosis. 3. No intracranial large vessel occlusion. 4. Infraglottic upper tracheal finding, possibly mucous plug versus lesion. Direct visual endoscopy is advised. Electronically Signed: Agnes Kaba, at 20:12 EDT Tel , Service support , Chest CTA 11/07/19 17:51 IMPRESSION: 1. No acute aortic abnormality. 2. Moderate aortic atherosclerosis. 3. Severe coronary artery disease. Electronically Signed: Agnes Kaba, at 19:01 EDT Tel , Service support , Brain MRI 11/08/19 08:00 IMPRESSION: No acute intracranial abnormality. Left parietotemporal encephalomalacia and gliosis consistent with prior infarct. Electronically Signed: Mario Jones MD at 10:42 EDT Tel , Service support , Operations: None Procedures: None Summary of Care Provided: The patient is a 54 year old M with an extensive past medical history as outlined including 2 previous strokes and hypercoagulable disorder currently on Lovenox as well as Brilinta and Plavix. Patient was admitted through the ED on 11/07/2019 with a complaint of headache, worsening of blurred vision in his right eye as well as right arm and leg weakness and paresthesias. Symptoms started at around 5 PM on day of presentation. He denied any shortness of breath, chest pain, nausea vomiting or diarrhea. It is stated in the ED note the patient complained of chest pain but at the time I reviewed him he denied having any chest pain. He also said that the vision loss in his right eye had progressively been worsening as he had had blurred vision which has been worsening in his right eye since his last 2 strokes and recently saw an eye doctor in [place] 2 weeks ago. He was told that he needed a specialized type of eye doctor but he is not sure exactly which time he has not been given the referral to see the physician. Patient in the ED, vitals show temperature of 91.8 Fahrenheit with blood pressure of 145/96, pulse rate of 83 respiratory rate of 15. Chemistry was significant for potassium of 3.4 and sodium of 135. Initial troponin was negative. CBC showed hemoglobin of 12.5 and platelets of 465 but was otherwise unremarkable. Brain CT showed chronic involutional changes of the brain with stable encephalomalacia within the left parietal occipital region consistent with an old infarct and small vessel ischemia. CTA of the head and neck were done and showed no cervical vascular stenosis and no intracranial large vessel occlusion.. Chest CTA done showed moderate atherosclerosis in the aorta with severe coronary artery disease and no acute aortic abnormality as well as no evidence of PE. Patient was not given TPA as he was noted TPA candidate since he had given himself therapeutic Lovenox earlier in the day. He was admitted to be managed for acute CVA. Patient was on aspirin and Brilinta which were continued as well as statin. He was also continued on Lovenox. Patient had previously been on Eliquis but this was switched to Lovenox after he was transferred to [facility] for similar presentation a couple of weeks prior to this admission. He had MRI which showed no acute intracranial abnormality and showed left parietotemporal encephalomalacia and gliosis consistent with prior infarct. Neurology was consulted and reviewed patient and based on findings of no new stroke, neurology consider that another differential might be seizures and recommended EEG. EEG was done and showed no evidence of seizure disorder and was read as a routine, multichannel EEG which showed no seizures, focal lateralized or epileptiform abnormalities. Recommendation from neurology therefore was for patient to have outpatient extended or ambulatory EEG. This was because neurology thought that patient may have had a seizure with a right-sided weakness being a residual effect of the seizure. Patient was therefore referred to neurology-Dr. Schaefer, for outpatient extended EEG to be ordered as deemed necessary. Patient remained stable and was evaluated by physical therapy. He was discharged home on 11/09/2019 and is continue with his aspirin, Brilinta and Lovenox shots as well as statin. Of note, I did call patient's Roxana Alcantar ([phone]) and discussed the plan with her prior to his discharge and she said she will make sure that patient follows up with neurology. Patient seen and examined prior to discharge. He had no complaints. Review of systems otherwise negative. Blurred vision in the right eye still persisted. Labs and vitals reviewed. Home medication reviewed and reconciled. O/e: Vital Signs Temp Pulse Resp BP Pulse Ox 97.7 F L 76 18 155/77 H 98 11/09/19 11:42 11/09/19 11:42 11/09/19 11:42 11/09/19 11:42 11/09/19 11:42 General: Alert, Oriented x3, Cooperative, No apparent distress HEENT: - - patient has blurred vision in right eye. Oral: Moist Mucosa Neck: Supple, No JVD, Negative Carotid Bruits Lungs: Clear to auscultation, Normal air movement, No rhonchi, No wheeze, No rales Cardiovascular: Regular rate, Regular Rhythm, Normal S1, Normal S2, No murmurs Abdomen: Bowel Sounds Present, Soft, Non Tender, Non-Distended, No Hepato-splenomegaly Extremities: No clubbing, No cyanosis, No edema, Capillary Refill Less than 3 Seconds Skin: No rashes, No breakdown Musculoskeletal: No Tenderness to Palpation of Joints or Extremities. left BKA Lymphatic: No Cervical, Supraclavicular, or Inguinal Adenopathy Neurological: - - power in RUE and RLE is 4-/5; normal sensation to light touch. No facial palsy; has loss of vision in right eye, which is chronic. NIHSS is 8 Psych/Mental Status: Normal Affect, Alert and oriented to time, place, person, mood and affect Plan is for discharge home today as above. - Physical Exam Vitals/I&O's: Vital Signs Temp Pulse Resp BP Pulse Ox 98.0 F 62 14 165/77 H 98 11/09/19 06:00 11/09/19 07:00 11/09/19 06:00 11/09/19 06:00 11/09/19 07:30 Oxygen Delivery Method Room Air Weight: 174 lb 13.225 oz Body Mass Index (BMI) 22.4 Finger Stick Blood Glucose 95 Intake and Output for Last 24 Hours 11/07/19 11/08/19 11/09/19 23:59 23:59 23:59 Intake Total 150 / 150 845 / 845 Output Total 500 / 500 1150 / 1150 1000 / 1000 Balance -350 / -350 -305 / -305 -1000 / -1000 Laboratory Results 11/07/19 17:45: Diff Path Review Reviewed Current Medications Acetaminophen (Tylenol) 650 mg PO Q6H PRN PRN PRN Reason: Pain 1-10 Albuterol Sulfate (Ventolin Aerosols) 2.5 mg INHALATION Q6H PRN PRN Reason: shortness of breath or wheezing Aspirin (Aspirin, Baby) 81 mg PO DAILY@0800 [facility] Last Admin: 11/09/19 09:04 Dose: 81 mg Documented by: Atorvastatin Calcium (Lipitor) 80 mg PO QHS [facility] Last Admin: 11/08/19 22:02 Dose: 80 mg Documented by: Brimonidine Tartrate (Brimonidine 0.2% 5ml Bottle) 1 drop OPHTHALMIC Q8 [facility] Last Admin: 11/09/19 06:14 Dose: 1 drop Documented by: Carvedilol (Coreg) 12.5 mg PO BID [facility] Last Admin: 11/09/19 09:04 Dose: 12.5 mg Documented by: Dextrose (D50w Syringe) 0 gm IV X1 PRN; Protocol PRN Reason: Hypoglycemia Enoxaparin Sodium (Lovenox) 80 mg SC Q12 [facility] Last Admin: 11/09/19 09:05 Dose: 80 mg Documented by: Furosemide (Lasix) 20 mg PO DAILY [facility] Last Admin: 11/09/19 09:04 Dose: 20 mg Documented by: Gabapentin (Neurontin) 800 mg PO BIDCM [facility] Last Admin: 11/09/19 09:04 Dose: 800 mg Documented by: Glucagon () 1 mg IM .X1 PRN PRN Reason: Hypoglycemia Hydralazine HCl (Apresoline Iv) 5 mg IV Q30M PRN PRN Reason: to maintain BP goals Sodium Chloride () 250 mls @ 15 mls/hr IV .[id number] PRN PRN Reason: Saline Flush Sodium Chloride () 250 mls @ 15 mls/hr IV .[id number] PRN PRN Reason: Additional IVPB Infusion Labetalol HCl (Trandate) 10 - 20 mg IV Q10M PRN PRN PRN Reason: to maintain BP goals Lisinopril (Zestril) 2.5 mg PO DAILY [facility] Last Admin: 11/09/19 09:04 Dose: 2.5 mg Documented by: Morphine Sulfate () 2 mg IV Q3H PRN PRN PRN Reason: Pain Score 6-10/10 Last Admin: 11/09/19 09:22 Dose: 2 mg Documented by: Ondansetron HCl (Zofran) 4 mg IV Q8H PRN PRN PRN Reason: NAUSEA/VOMITING Potassium Chloride (K-Dur) 10 meq PO DAILY [facility] Last Admin: 11/09/19 09:04 Dose: 10 meq Documented by: Sertraline HCl (Zoloft) 50 mg PO DAILY [facility] Last Admin: 11/09/19 09:04 Dose: 50 mg Documented by: Sodium Chloride () 10 - 40 ml IV UD PRN PRN Reason: SALINE FLUSH Last Admin: 11/09/19 09:22 Dose: 10 ml Documented by: Tamsulosin HCl (Flomax) 0.4 mg PO DINNER [facility] Last Admin: 11/08/19 16:00 Dose: 0.4 mg Documented by: Ticagrelor (Brilinta) 90 mg PO BID [facility] Last Admin: 11/09/19 09:04 Dose: 90 mg Documented by: Discharge Diet: Low fat/ Low Cholesterol Discharge Activity: Return to Normal Activity Weight Bearing Status: Weight bearing as tolerated Call your doctor if you observe: Numbness or Tingling, Shortness of breath, Dizziness, - - focal weakness, slurred speech. Home Medications: Medications to take at Discharge albuterol sulfate 2.5 mg INHALATION Q6H PRN #75 ml 07/08/19 albuterol sulfate 90 mcg/actuation aerosol inhaler 1 - 2 puff INHALATION Q6H PRN #8.5 g 07/19/19 enoxaparin 80 mg/0.8 mL subcutaneous syringe 80 mg SC Q12H 10/22/19 brimonidine 0.2 % eye drops 1 drp OPHTHALMIC Q8H 11/01/19 Aspirin [Aspirin, Baby] 81 mg PO DAILY@0800 11/07/19 Atorvastatin Calcium [Lipitor] 80 mg PO QHS 11/07/19 Carvedilol 12.5 mg PO BID 11/07/19 Furosemide [Lasix] 20 mg PO DAILY 11/07/19 Gabapentin 800 mg PO BID 11/07/19 Lisinopril 2.5 mg PO DAILY 11/07/19 Potassium Chloride 10 meq PO DAILY 11/07/19 Sertraline HCl [Zoloft] 50 mg PO QDAY 11/07/19 Tamsulosin HCl [Flomax] 0.4 mg PO DINNER 11/07/19 Ticagrelor [Brilinta] 90 mg PO BID 11/07/19 Nebulizer Accessories [Sidestream Mask] See Rx Instructions .ROUTE .MEDSUPPLY 11/09/19 Primary Care Physician: Dharmesh Alonso MD [Primary Care Provider] - Please follow up with your Primary Care Physician in: 1-2 weeks Please Follow Up With: Jonnie Schaefer MD When: 1-2 weeks Patient Instructions: ED Stroke Completed Disposition: Home Minutes spent on discharge:: 35 Patient Condition:: Stable Medical Necessity - Tobacco Use Smoking Status: Former smoker Meaningful Use Info Meaningful Use Diagnoses (Choose all that apply): None applicable Inpatient E&M: 29512 Disch Hosp
--- NOTE | 2019-11-11 13:51 | CASEMGMT ---
DARSHAN WINCHESTER F/U Phone Call LACE: 10 Strata: 3 Discharge date: 11/09/2019 Call date: 11/11/2019 Call time: 1355 Admission dx: Acute left MCA CVA Pt states is doing 'alright' since discharge from [facility]. Pt states no questions regarding discharge instructions/medications at this time. Pt states that him and his are working on getting f/u appt's and OP therapy set up at this time. Pt states no suggestions for [facility] at this time and states 'you did great!.' Pt voices no further questions/concerns/needs at this time. S[place]en DARSHAN WINCHESTER
== END 2019-11-09 13:00 | disposition home or self-care (01) | DRG 65 ==
LOC: ED 18:53 → PCU 19:07
PROVIDERS: Admitting Provider Student in an Organized Health Care Education/Training Program; Emergency Provider Emergency Medicine; PCP Internal Medicine; Visit Provider Student in an Organized Health Care Education/Training Program
DX: I63.9 Cerebral infarction, unspecified (principal); I13.0 Hypertensive heart and chronic kidney disease with heart failure and stage 1 through stage 4 chronic kidney disease, or unspecified chronic kidney disease; D68.62 Lupus anticoagulant syndrome; I50.20 Unspecified systolic (congestive) heart failure; I42.0 Dilated cardiomyopathy; I25.10 Atherosclerotic heart disease of native coronary artery without angina pectoris; G93.89 Other specified disorders of brain; E78.5 Hyperlipidemia, unspecified; I73.9 Peripheral vascular disease, unspecified; Z79.01 Long term (current) use of 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s; E87.6 Hypokalemia; Z89.511 Acquired absence of right leg below knee; Z87.891 Personal history of nicotine dependence; Z82.49 Family history of ischemic heart disease and other diseases of the circulatory system; Z89.512 Acquired absence of left leg below knee; Z90.49 Acquired absence of other specified parts of digestive tract; Z95.5 Presence of coronary angioplasty implant and graft; Z86.73 Personal history of transient ischemic attack (TIA), and cerebral infarction without residual deficits; Z82.3 Family history of stroke; Z66 Do not resuscitate; Z79.02 Long term (current) use of antithrombotics/antiplatelets; Z79.899 Other long term (current) drug therapy; Z83.3 Family history of diabetes mellitus; Z86.711 Personal history of pulmonary embolism; Z86.718 Personal history of other venous thrombosis and embolism; F32.9 Major depressive disorder, single episode, unspecified; D64.9 Anemia, unspecified; I70.0 Atherosclerosis of aorta; Z86.74 Personal history of sudden cardiac arrest; I44.7 Left bundle-branch block, unspecified
CPT/HCPCS: 36415; 70450; 70496; 70498; 70551; 71275; 80048; 80061; 82962; 84484; 85025; 85610; 85730; 92507; 92523; 92610; 93005; 94762; 95819; 97162; 97166; 97802; 99285; Q9967; A4216; J2405

== ENCOUNTER 2019-11-23 19:36 | Observation (INO) | payer BC, SELFPAY ==
[2019-07-04 09:02] VITALS: BMI 29.8
[2019-11-18 14:48] VITALS: BMI 21.7
[2019-11-23] VITALS (7 sets, daily range): BP systolic 116–132; BP diastolic 79–92; PULSE 83–103; RESP 14–18; TEMP 36.5–37; O2SAT 97–99; BMI 36.7; BMI 22.6; BMI 22.7
--- NOTE | 2019-11-23 20:10 | EKG12_ITS ---
Test Reason : CP ADMIT Blood Pressure : / mmHG Vent. Rate : 091 BPM Atrial Rate : 091 BPM P-R Int : 166 ms QRS Dur : 138 ms QT Int : 420 ms P-R-T Axes : 046 002 121 degrees QTc Int : 516 ms Normal sinus rhythm Left bundle branch block Abnormal ECG When compared with ECG of 07-NOV-2019 17:33, QRS duration has decreased T wave inversion no longer evident in Anterior leads Confirmed by MALDONADO ARAGON ([id number]), commissioning editor PAULA PERKINS ([id number]) on 11/28/2019 12:10:05 PM Referred By: JOANIE Confirmed By:MALDONADO ARAGON
--- NOTE | 2019-11-23 20:11 | ED.VIS.GEN ---
History of Present Illness Chief Complaint: Chest Pain Informant: Patient Onset: Today Current Severity: Mild Maximum Severity: Moderate Narrative: Patient presents after not feeling well. He states this this afternoon he felt lightheaded like he might pass out. His blood pressure was slightly low. He called his PCP and because of his medical history it was felt he should come to the emergency room. While in the car on the way to the hospital patient developed some right-sided chest pain into his right neck. He did states that began as a dull pain but is now turning more sharp and stabbing. He does report some mild nausea. Patient has a history of a cardiac arrest in June. He has 2 or 3 cardiac stents. He states they are getting ready to do a pacemaker/AICD. He is currently on Lovenox and Brilinta. He has not had fever or chills. - Past Medical History (1) Acute CVA (cerebrovascular accident) Status: Acute (2) Paroxysmal atrial fibrillation Status: Chronic (3) Atherosclerosis of coronary artery of [place] heart without angina pectoris Status: Chronic (4) CHF (congestive heart failure) Status: Chronic (5) Chronic renal failure, stage 2 (mild) Status: Chronic (6) Dilated cardiomyopathy Status: Chronic Comment: 27% EF on ECHO 02/18/19........non-ischemic. normal coronaries on cath August 2016 at [facility] (7) Essential hypertension Status: Chronic (8) HLD (hyperlipidemia) Status: Chronic (9) History of carotid endarterectomy Status: Chronic Comment: 04/22/19 at [facility] (10) History of coronary artery stent placement Status: Chronic Comment: 3.5 x 32 mm Synergy MR BRIDGER to pLAD 07/03/19 (11) 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 (12) LBBB (left bundle branch block) Status: Chronic (13) retirement current use of anticoagulant Status: Chronic Comment: Patient is on Coumadin for PE (14) Peripheral arterial disease Status: Chronic Comment: DEDRICK PRIETO'ludin....multiple stents in both legs (15) Status post below knee amputation of left lower extremity Status: Chronic Comment: at [facility] for severe PVD with non-healing wounds and recurrent infections LLE Revision done in 2018 Past Medical History - Allergies and Home Meds Allergies/Adverse Reactions: Allergies Penicillins Allergy (Verified 11/23/19 19:50) Swelling adhesive tape Adverse Reaction (Verified 11/23/19 19:50) Rash oxycodone [From OxyContin] Adverse Reaction (Verified 11/23/19 19:50) Other it makes me go nuts Primary Care Physician: Dharmesh Alonso MD [Primary Care Provider] - Doctors: Dr. Tate Prior records reviewed: Yes Surgical History: cholecystectomy, - - Left CEAy 04/22/2019 at [facility], Left BKA for severe peripheral vascular disease with nonhealing wounds, cellulitis and osteomyelitis, Multiple stents in both lower extremities secondary to peripheral vascular disease, Multiple debridements of nonhealing wounds of the left lower extremity, Cardiac PCI x 1, cholecystectomy. Smoking Status: Never smoker - Family History Maternal Family History: Family History (Last Reviewed 11/18/19 @ 16:[address] Christie Tate MD) Mother Diabetes CVA (cerebral vascular accident) Myocardial infarction Father Cancer Kidney disease Family History: Reports: Cancer, Diabetes, Heart Disease, Renal Disease Paternal Family History: Family History (Last Reviewed 11/18/19 @ 16:[address] Christie Tate MD) Mother Diabetes CVA (cerebral vascular accident) Myocardial infarction Father Cancer Kidney disease Family History: Reports: Cancer Review of Systems General: Denies: Chills, Fever Eyes: Denies: Visual changes - bilaterally ENT: Denies: Bilateral ear pain Cardiovascular: Reports: Chest pain. Denies: Palpitations Respiratory: Denies: Dyspnea, Cough Gastrointestinal: Reports: Nausea. Denies: Abdominal pain, Vomiting Genitourinary: Denies: Dysuria Musculoskeletal: Denies: Swelling, Extremity Pain Skin: Denies: Rash Hematologic: Denies: Easy bruising, Easy bleeding Allergy: Denies: Uticaria Physical Exam Vital Signs/Narrative: Vital Signs Temp Pulse Resp BP Pulse Ox 11/23/19 19:41 98.5 F 103 H 14 132/92 H 97 Inital Vital Signs reviewed: Yes General: Well nourished, Well developed Head: Normocephalic ENT: Moist mucous membranes Neck: Supple Cardiovascular: Regular rate, Regular rhythm Respiratory: No distress, CTA bilaterally, Chest tenderness - Mild anterior chest wall tenderness. No crepitus. Abdomen: Soft, Nontender Extremities: Nontender, - - Left BKA Skin: Normal color Neurological: Alert, Oriented x3 Psychological: Normal affect Diagnostic/Tx/Re-eval Impressions Chest X-Ray 11/23/19 20:35 IMPRESSION: No acute thoracic pathology. Electronically Signed: Antione Ventura, at 20:59 EDT Tel , Service support , 11/23/19 20:35 Chest 1 View (Portable) [RAD] Stat Laboratory Results 11/23/19 11/23/19 19:42 19:42 WBC 10.9 RBC 4.18 L Hgb 12.8 L Hct 38.7 L MCV 92.6 MCH 30.6 MCHC 33.1 RDW Std Deviation 56.2 H RDW Coeff of Lawson 16.6 H Plt Count 453 H MPV 9.3 Immature Gran % (Auto) 0.300 Neut % (Auto) 41.1 L Lymph % (Auto) 39.9 [place] % (Auto) 8.9 Eos % (Auto) 9.0 H Baso % (Auto) 0.8 Absolute Neuts (auto) 4.5 Absolute Lymphs (auto) 4.33 Nucleated RBC % 0 Differential Comment SCANNED Sodium 133 L Potassium 3.2 L Chloride 94 L Carbon Dioxide 28.0 Anion Gap 11 BUN 12 Creatinine 1.31 H Estim Creat Clear Calc 72.85 Est GFR (MDRD) Af Amer 73 Est GFR (MDRD) Non-Af 61 BUN/Creatinine Ratio 9.2 L Glucose 91 Calcium 8.6 Magnesium 1.8 Troponin I < 0.015 - EKG Initial EKG Interpretation: Sinus Rhythm, LBBB, - - Sinus with left bundle branch block at 98 bpm. No acute ischemia. - Medical Decision Making Patient was given 3 additional baby aspirin on arrival here. He was given a small dose of fentanyl and Phenergan for pain and nausea. On repeat evaluation patient's resting comfortably. In light of his cardiac history and very short onset of symptoms prior to evaluation here I will recommend hospitalization for cycling of cardiac enzymes. Patient is in agreement with this. ED Disposition - Plan for ED Patient: Disposition: Acute Care Hospital [facility] Diagnosis: Chest pain Referrals: Dharmesh Alonso MD [Primary Care Provider] -
[2019-11-23] MEDS: 0.9% Normal Saline 1,000 ML 150 ML IV (20:23)
[2019-11-23 20:24] LABS: Absolute Lymphocyte Count 4.33 X10^3/uL (0.83-4.51); Absolute Neutrophil Count 4.5 X10^3/uL (2.0-7.7); Basophil# 0.09 X10^3/uL; Basophil% 0.8 % (0-1); Eosinophil# 0.98 X10^3/uL; Hematocrit 38.7 % (40-54); Hemoglobin 12.8 g/dL (13.0-16.5); Lymphocyte # 4.33 X10^3/ul (4.0); Lymphocyte % 39.9 % (19-41); Mean Corp Hgb Conc 33.1 g/dL (32-36); Mean Corpuscular Hgb 30.6 pg (27.0-32.0); Mean Corpuscular Volume 92.6 fL (80-94); Mean Platelet Vol. 9.3 fl (6.2-12.0); Monocyte# 0.97 X10^3/uL; Monocyte% 8.9 % (0-10); NRBC Flagged by Analyzer 0 % (0-5); Neutrophil # 4.46 X10^3/uL (2.7-7.7); Neutrophil % 41.1 % (47-70); POSITIVE MORPHOLOGY YES; Platelet Count 453 K/mm3 (150-450); RBC Distribution Width CV 16.6 % (11.6-14.6); RBC Distribution Width SD 56.2 fl (35.1-43.9); Red Blood Count 4.18 M/mm3 (4.6-6.2); White Blood Count 10.9 K/mm3 (4.4-11.0)
[2019-11-23] MEDS: Aspirin 81 MG TAB.CHEW 243 MG PO (20:24)
[2019-11-23] MEDS: proMETHazine 25 MG/ML Syringe 6.25 MG IV (20:24)
[2019-11-23] MEDS: fentaNYL 100 MCG/2 ML Ampul 25 MCG IV (20:25)
[2019-11-23 20:32] LABS: Differential Indicated SCAN CRITERIA MET
--- NOTE | 2019-11-23 20:35 | RAD_ITS ---
STUDY: X-RAY CHEST REASON FOR EXAM: Male, 54 years old. Chest pain TECHNIQUE: Frontal view of the chest COMPARISON: 10/15/2019 FINDINGS: The lungs are clear. There are no pleural effusions. There is no pneumothorax. The heart is normal in size. The visualized osseous structures are within normal limits. RAD/Chest 1 View (Portable) IMPRESSION: No acute thoracic pathology. Electronically Signed: Antione Ventura, at 20:59 EDT Tel , Service support ,
[2019-11-23 21:08] LABS: Anion Gap 11 (5-15); BUN 12 mg/dL (7-18); BUN/Creat Ratio 9.2 RATIO (10-20); Calcium,Total 8.6 mg/dL (8.5-10.1); Chloride 94 mmol/L (98-107); Creatinine, Serum 1.31 mg/dL (0.70-1.30); EST Glomerular Filtration Rate 61 mL/min (>60); Est Glom Filt Rate - Afr Amer 73 mL/min (>60); Estimated Creatinine Clearance 72.85 ml/min; Glucose 91 mg/dL (74-106); Magnesium 1.8 mg/dL (1.6-2.6); Potassium 3.2 mmol/L (3.5-5.1); Sodium Level 133 mmol/L (136-145)
[2019-11-23 21:48] LABS: Differential Comment SCANNED
--- NOTE | 2019-11-23 22:03 | HP.PCM_ITS ---
Problem List (1) Anginal equivalent Status: Acute (2) Acute ischemic left MCA stroke Status: Inactive (3) Chest pain Status: Acute (4) Paroxysmal atrial fibrillation Status: Chronic (5) HLD (hyperlipidemia) Status: Chronic Qualifiers: Hyperlipidemia type: unspecified Qualified Code(s): E78.5 - Hyperlipidemia, unspecified (6) History of coronary artery stent placement Status: Chronic Comment: 3.5 x 32 mm Synergy MR BRIDGER to pLAD 07/03/19 (7) Atherosclerosis of coronary artery of [place] heart without angina pectoris Status: Chronic Qualifiers: Coronary Disease-Associated Artery/Lesion type: [place] artery Qualified Code(s): I25.10 - Atherosclerotic heart disease of [place] coronary artery without angina pectoris (8) Back pain Status: Acute (9) CHF (congestive heart failure) Status: Chronic Qualifiers: Heart failure type: systolic Heart failure chronicity: chronic Qualified Code(s): I50.22 - Chronic systolic (congestive) heart failure (10) 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 (11) Chronic renal failure, stage 2 (mild) Status: Chronic (12) Depression Status: Chronic Qualifiers: Depression Type: unspecified Qualified Code(s): F32.9 - Major depressive disorder, single episode, unspecified (13) History of carotid endarterectomy Status: Chronic Comment: 04/22/19 at [facility] (14) History of ischemic left MCA stroke Status: Chronic Comment: 04/17/19 (15) Debility Status: Chronic Comment: due to L MCA stroke 04/17/19 (16) Normochromic normocytic anemia Status: Chronic (17) LBBB (left bundle branch block) Status: Chronic (18) Dilated cardiomyopathy Status: Chronic Comment: 27% EF on ECHO 02/18/19........non-ischemic. normal coronaries on cath August 2016 at [facility] (19) Essential hypertension Status: Chronic (20) Status post below knee amputation of left lower extremity Status: Chronic Comment: at [facility] for severe PVD with non- healing wounds and recurrent infections LLE Revision done in 2018 (21) group home current use of anticoagulant Status: Chronic Comment: Patient is on Coumadin for PE (22) Peripheral arterial disease Status: Chronic Comment: BL LE's....multiple stents in both legs (23) Hypercoagulable state Status: Chronic Comment: Positive lupus anticoagulant, positive anticardiolipin anti B IgM, and increased homocystine level History of Present Illness Date of Admission: 11/24/19 Chief Complaint: Neck pain The patient is a 54 year old M with a significant history of cardiac arrest; CAD status post thrombectomy and drug-eluting stent; CKD; hypertension; hypercoagulable state with a PE and DVT; left below the knee amputation secondary to DVT; and congestive heart failure who presents today emergency department with neck pain. His symptoms started on the day of presentation. Associated with his symptoms is malaise; lightheadedness and presyncope. His blood pressure at home was 86/(64-68). Patient's drove patient to the hospital. Enroute to the hospital patient began to have sharp episodic neck pain. The pain radiated to his back. He was nauseated. He had shortness of breath. He denied diaphoresis. There was no aggravating or ameliorating factors to the pain. Past Medical History Past Medical History (Chronic Problems): Chronic Problems (Last Reviewed 11/24/19 @ 00:[address] Nish Peace MD) Paroxysmal atrial fibrillation (Chronic) HLD (hyperlipidemia) (Chronic) History of coronary artery stent placement (Chronic) 3.5 x 32 mm Synergy MR BRIDGER to pLAD 07/03/19 Atherosclerosis of coronary artery of [place] heart without angina pectoris (Chronic) CHF (congestive heart failure) (Chronic) History of sudden cardiac arrest successfully resuscitated (Chronic) Chronic renal failure, stage 2 (mild) (Chronic) Depression (Chronic) History of carotid endarterectomy (Chronic) 04/22/19 at [facility] History of ischemic left MCA stroke (Chronic) 04/17/19 Debility (Chronic) due to L MCA stroke 04/17/19 Normochromic normocytic anemia (Chronic) LBBB (left bundle branch block) (Chronic) Dilated cardiomyopathy (Chronic) 27% EF on ECHO 02/18/19........non-ischemic. 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 Nish Peace MD) Paroxysmal atrial fibrillation (Chronic) I48.0 HLD (hyperlipidemia) (Chronic) E78.5 Acute CVA (cerebrovascular accident) (Inactive) I63.9 Atherosclerosis of coronary artery of [place] heart without angina pectoris (Chronic) I25.10 Cardiac arrest (Resolved) I46.9 Back pain (Acute) M54.9 CHF (congestive heart failure) (Chronic) I50.9 History of sudden cardiac arrest successfully resuscitated (Chronic) Z86.74 Chronic renal failure, stage 2 (mild) (Chronic) N18.2 Depression (Chronic) F32.9 History of ischemic left MCA stroke (Chronic) Z86.73 04/17/19 Debility (Chronic) R53.81 due to L MCA stroke 04/17/19 Normochromic normocytic anemia (Chronic) D64.9 Dilated cardiomyopathy (Chronic) I42.0 27% EF on ECHO 02/18/19........non-ischemic. 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) Z79.01 Patient is on Coumadin for PE Peripheral arterial disease (Chronic) I73.9 BL LE's....multiple stents in both legs Hypercoagulable state (Chronic) D68.59 Positive lupus anticoagulant, positive anticardiolipin anti B IgM, and increased homocystine level Anemia D64.9 Arthritis M19.90 Vascular disease I99.9 JUAN (acute kidney injury) (Resolved) N17.9 Chronic osteomyelitis of left tibia (Resolved) M86.662 chronic osteomyelitis left tibia at [facility] stump Dermatitis (Resolved) L30.9 Gallstones K80.20 Ischemic ulcer of right foot (Resolved) L97.519 Osteomyelitis of left lower extremity (Resolved) M86.9 Thrush, oral (Resolved) B37.0 Ulceration of below knee amputation stump (Resolved) T87.89, L97.809 Wound, surgical, nonhealing (Resolved) T81.89XA History of DVT (deep vein thrombosis) (Inactive) Z86.718 History of pulmonary embolism (Inactive) Z86.711 Methicillin resistant Staphylococcus aureus infection (Inactive) A49.02 Pain of amputation stump of left lower extremity (Inactive) T87.89, M79.605 Partial loss of skin graft (Inactive) T86.828 Personal history of osteomyelitis (Inactive) Z87.39 SVT (supraventricular tachycardia) (Inactive) I47.1 had an ablation in the past Allergies Penicillins Allergy (Verified 11/23/19 19:50) Swelling adhesive tape Adverse Reaction (Verified 11/23/19 19:50) Rash oxycodone [From OxyContin] Adverse Reaction (Verified 11/23/19 19:50) Other it makes me go nuts Home Medications: Ambulatory Orders Medication Instructions Recorded albuterol sulfate 2.5 mg INHALATION Q6H PRN #75 ml 07/08/19 albuterol sulfate 90 mcg/actuation 1 - 2 puff INHALATION Q6H PRN #8.5 07/19/19 aerosol inhaler g enoxaparin 80 mg/0.8 mL 80 mg SC Q12H 10/22/19 subcutaneous syringe Aspirin [Aspirin, Baby] 81 mg PO DAILY@0800 11/07/19 Atorvastatin Calcium [Lipitor] 80 mg PO QHS 11/07/19 Carvedilol 12.5 mg PO BID 11/07/19 Furosemide [Lasix] 20 mg PO DAILY 11/07/19 Lisinopril 2.5 mg PO DAILY 11/07/19 Potassium Chloride 10 meq PO DAILY 11/07/19 Sertraline HCl [Zoloft] 50 mg PO QDAY 11/07/19 Tamsulosin HCl [Flomax] 0.4 mg PO DINNER 11/07/19 Ticagrelor [Brilinta] 90 mg PO BID 11/07/19 Nebulizer Accessories [Sidestream See Rx Instructions .ROUTE 11/09/19 Mask] .MEDSUPPLY gabapentin 800 mg tablet 800 mg PO BID tab 11/18/19 Surgical History: Surgical History (Last Reviewed 11/24/19 @ 00:[address] Nish Peace MD) History of coronary artery stent placement (Chronic) Z95.5 3.5 x 32 mm Synergy MR BRIDGER to pLAD 07/03/19 History of carotid endarterectomy (Chronic) Z98.890 04/22/19 at [facility] History of left heart catheterization (LHC) (Resolved) Onset Date: ~09/14/16 Z98.890 Normal Coronaries....august 2016 at [facility] History of cardiac radiofrequency ablation (Resolved) Onset Date: ~02/25/13 Z98.890 PVC Ablation 02/25/13 @ [facility] 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) Z89.512 at [facility] for severe PVD with non-healing wounds and recurrent infections LLE Revision done in 2018 History of cholecystectomy Z90.49 1998 History of surgical removal of testicle Z98.890, Z90.79 Surgical History: cholecystectomy, - - Left CEAy 04/22/2019 at [facility], Left [facility] for severe peripheral vascular disease with nonhealing wounds, cellulitis and osteomyelitis, Multiple stents in both lower extremities secondary to peripheral vascular disease, Multiple debridements of nonhealing wounds of the left lower extremity, Cardiac PCI x 1, cholecystectomy. Psychiatric History: Anxiety, Depression Smoking Status: Never smoker - *Family History Maternal Family History: Family History (Last Reviewed 11/18/19 @ 16:[address] Christie Tate MD) Mother Diabetes CVA (cerebral vascular accident) Myocardial infarction Father Cancer Kidney disease History Items: Cancer, Diabetes, Heart Disease, Renal Disease Paternal Family History: Family History (Last Reviewed 11/18/19 @ 16:[address] Christie Tate MD) Mother Diabetes CVA (cerebral vascular accident) Myocardial infarction Father Cancer Kidney disease History Items: Cancer Review of Systems Constitutional: Reports: Malaise. Denies: Chills, Fever, Weight Change HEENT: Denies: Head Aches, Sinus Congestion, Sinus Drainage Cardiovascular: Reports: Light Headedness. Denies: Chest Pain, Palpitations Respiratory: Reports: Shortness of Breath. Denies: Cough Gastrointestinal: Reports: Nausea. Denies: Abdominal Pain, Vomiting Genitourinary: Denies: Dysuria Musculoskeletal: Denies: Joint Pain, Joint Tenderness Skin: Denies: Rash, Wounds Neurological: Denies: Numbness, Tingling, Focal weakness Psychiatric: Denies: Anxiety, Depression, Homicidal Ideations, Suicidal Ideations Hematologic/ Lymphatic: Denies: Easy Bruising, Easy Bleeding VTE Information - Inpt Only VTE Present on Admission: No VTE Mechan Device Prophylaxis: None VTE Pharm Prophylaxis ordered?: No Reason prophylaxis not ordered:: Treatment Not Indicated - Continue therapeutic dose of Lovenox for antiphospholipid syndrome and history of multiple embolisms. Patient Problems: Active and Suspected Problems (Last Reviewed 11/24/19 @ 00:[address] Nish Peace MD) Chest pain (Acute) Anginal equivalent (Acute) - Physical Exam Vitals/I&O's: Vital Signs Temp Pulse Resp BP Pulse Ox 98.5 F 94 16 122/79 H 98 11/23/19 19:41 11/23/19 20:36 11/23/19 20:36 11/23/19 20:36 11/23/19 20:36 Oxygen Flow Rate (L/min) 2 Oxygen Delivery Method Nasal Cannula Weight: 126.2 kg Body Mass Index (BMI) 36.7 Finger Stick Blood Glucose 95 General: Alert, Oriented x3, Cooperative HEENT: Atraumatic, PERRLA, EOMI, Normocephalic Neck: Supple, No JVD, Negative Carotid Bruits Lungs: Clear to auscultation, Normal air movement, No rhonchi, No wheeze, No rales Cardiovascular: Regular rate, Normal S1, Normal S2, No murmurs Abdomen: Bowel Sounds Present, Soft, Non Tender Extremities: No edema, Capillary Refill Less than 3 Seconds Skin: No rashes, No breakdown Musculoskeletal: No Tenderness to Palpation of Joints or Extremities, - - Left below the knee amputation Neurological: Cranial nerves II-XII grossly intact Psych/Mental Status: Normal Affect, Appropriate Laboratory Results 11/23/19 19:42: WBC 10.9, RBC 4.18 L, Hgb 12.8 L, Hct 38.7 L, MCV 92.6, MCH 30.6, MCHC 33.1, RDW Std Deviation 56.2 H, RDW Coeff of Lawson 16.6 H, Plt Count 453 H, MPV 9.3, Immature Gran % (Auto) 0.300, Neut % (Auto) 41.1 L, Lymph % (Auto) 39.9, [place] % (Auto) 8.9, Eos % (Auto) 9.0 H, Baso % (Auto) 0.8, Absolute Neuts (auto) 4.5, Absolute Lymphs (auto) 4.33, Nucleated RBC % 0, Differential Comment SCANNED 11/23/19 19:42: Sodium 133 L, Potassium 3.2 L, Chloride 94 L, Carbon Dioxide 28.0, Anion Gap 11, BUN 12, Creatinine 1.31 H, Estim Creat Clear Calc 72.85, Est GFR (MDRD) Af Amer 73, Est GFR (MDRD) Non-Af 61, BUN/Creatinine Ratio 9.2 L, Glucose 91, Calcium 8.6, Magnesium 1.8, Troponin I < 0.015 Current Medications Sodium Chloride () 1,000 mls @ 150 mls/hr IV .Q6H40M ERIKA Last Admin: 11/23/19 20:23 Dose: 150 mls/hr Documented by: Assessment/Plan All Active Problems (Last Reviewed 11/24/19 @ 00:[address] Nish Peace MD) Chest pain (Acute) Anginal equivalent (Acute) Cardiac arrest (Resolved) Back pain (Acute) History of left heart catheterization (LHC) (Resolved ~09/14/16) History of cardiac radiofrequency ablation (Resolved ~02/25/13) Tobacco use disorder (Resolved) JUAN (acute kidney injury) (Resolved) Chronic osteomyelitis of left tibia (Resolved) Dermatitis (Resolved) Ischemic ulcer of right foot (Resolved) Osteomyelitis of left lower extremity (Resolved) Thrush, oral (Resolved) Ulceration of below knee amputation stump (Resolved) Wound, surgical, nonhealing (Resolved) The patient is a 54 year old M with a significant history of cardiac arrest; CAD status post thrombectomy and drug-eluting stent; CKD; hypertension; hypercoag ulable state with a PE and DVT; left below the knee amputation secondary to DVT; and congestive heart failure who presents to the emergency department with neck pain that radiated to his back and with shortness of breath. Anginal equivalent Dr. 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 His EF was 35%. Reportedly echo on October 17, 2019 at [facility] revealed EF of 30%. The plan is to get a biventricular ICD at [facility]. Advised the emergency department doctor to discuss the case with cardiology on- call. Cardiology who will see patient in a.m. if patient continues to be stable. Trend troponin. Continue home aspirin and Brilinta. Lipitor 80 mg p.o. nightly continued. Patient reported in the past the nitroglycerin has given him headache. Will not order nitroglycerin at this time. PRN morphine IV for pain. Place on a monitored bed at PCU Actual CXR image was independently visualized. No acute cardiopulmonary process was noted. Actual EKG tracing was independently visualized. EKG tracing showed left bundle branch block. Old EKGs were reviewed. Old EKGs also showed left bundle branch block. Stat EKG as needed for chest pain Congestive heart failure Ejection fraction 35%. Lasix continued. Carvedilol continued. Hypokalemia Review of emergency department labs showed a potassium of 3.2. Likely secondary to Lasix use. Replaced. Escalate daily dose of potassium. Hyponatremia Sodium of 133. Likely secondary to diuretic use. Antiphospholipid syndrome Home therapeutic Lovenox continued BPH Flomax continued Depression/anxiety Zoloft continued. Neuropathy Gabapentin continued. DVT prophylaxis Not indicated since patient is on therapeutic dose of Lovenox for history of multiple embolism and antiphospholipid syndrome. Therapeutic dose of Lovenox continued. Inpatient E&M: 25108 Init Hosp L3
[2019-11-23 23:18] LABS: Magnesium 1.8 mg/dL (1.6-2.6)
--- NOTE | 2019-11-23 23:36 | EKG12_ITS ---
Test Reason : CP Blood Pressure : / mmHG Vent. Rate : 098 BPM Atrial Rate : 098 BPM P-R Int : 138 ms QRS Dur : 160 ms QT Int : 424 ms P-R-T Axes : 057 027 115 degrees QTc Int : 541 ms Normal sinus rhythm Left bundle branch block Abnormal ECG Confirmed by FRANKY BUSH, LAXMI ([id number]), city editor PAULA PERKINS ([id number]) on 11/26/2019 11:03:01 AM Referred By: HARPREET BOYLE Confirmed By:LAXMI WILKINS MD
[2019-11-24] VITALS (11 sets, daily range): BP systolic 117–134; BP diastolic 71–83; PULSE 73–91; RESP 14–18; TEMP 36.7; O2SAT 96–98
[2019-11-24] MEDS: Morphine 2 MG/ML Syringe IV ×2 (01:05→11:55)
[2019-11-24] MEDS: 0.9% Saline Lock 10 ML Syringe IV (01:05)
[2019-11-24] MEDS: Aspirin 81 MG TAB.CHEW PO (07:29)
[2019-11-24] MEDS: Enoxaparin 80 MG/0.8 ML Syringe SC ×2 (09:06→21:16)
[2019-11-24] MEDS: Furosemide 20 MG Tablet PO (09:08)
[2019-11-24] MEDS: Carvedilol 12.5 MG Tablet PO ×2 (09:08→21:16)
[2019-11-24] MEDS: TICAGRELOR 90 MG TABLET PO ×2 (09:08→21:16)
[2019-11-24] MEDS: Lisinopril 2.5 MG Tablet PO (09:08)
[2019-11-24] MEDS: Sertraline 50 MG Tablet PO (09:08)
[2019-11-24] MEDS: Gabapentin 800 MG Tablet PO ×2 (09:08→21:18)
--- NOTE | 2019-11-24 11:10 | ECHOD_ITS ---
Reason For Study: CAD/ASHD Procedure This was a 2D Doppler, Color Flow transthoracic echocardiogram. The exam was of adequate technical quality. Exam performed portable in patient room. Left Ventricle Normal LV size. Moderate segmental systolic dysfunction (see wall motion). The estimated ejection fraction is 30 %. Septal motion consistent with IVCD. No evidence for diastolic dysfunction. Basal inferoseptal: Hypokinetic. Basal anteroseptal: Hypokinetic. Mid-Anterior : Hypokinetic. Mid- Lateral : Hypokinetic. Mid-Posterior: Hypokinetic. Mid-inferoseptal : Hypokinetic. Mid- anteroseptal : Hypokinetic. Anterior [place] : Hypokinetic. Lateral [place] : Hypokinetic. Septal [place] : Hypokinetic. Right Ventricle Normal RV size. Normal systolic function. Atria Normal left atrium. Normal right atrium. No doppler evidence for ASD. Mitral Valve There is no mitral annular calcification. Normal mitral valve. Mild (1+) mitral valve insufficiency. Tricuspid Valve Normal tricuspid valve. Trivial tricuspid valve insufficiency. Aortic Valve Trisinus/trileaflet aortic valve. Normal aortic valve. Pulmonic Valve The pulmonic valve is not well visualized. Great Vessels Normal sized aortic root. Pericardium/Pleural No pericardial effusion. MMode/2D Measurements & Calculations LVIDd: 5.2 cm IVSd: 1.5 cm Ao root diam: 3.5 cm LVIDs: 4.0 cm LVPWd: 1.2 cm LA dimension: 3.2 cm FS: 23.6 % LAV(MOD-bp): 41.9 ml LA A4 area: 14.6 cm2 RA A4 area: 9.9 cm2 LAV(MOD-bp) Indexed: 20.4 ml/m2 LAV(MOD-sp2): 47.8 ml LAV(MOD-sp4): 35.9 ml Time Measurements MV dec time: 0.24 sec Doppler Measurements & Calculations MV E max ruben: 68.6 cm/sec Lat Peak E' Ruben: 9.8 cm/sec Med Peak E' Ruben: 8.3 cm/sec MV A max ruben: 59.5 cm/sec E/E' lat: 7.0 E/E' med: 8.3 MV E/A: 1.2 MV V2 max: 104.0 cm/sec MV P1/2t max ruben: 105.9 cm/sec Ao V2 max: 98.4 cm/sec MV max P.3 mmHg MV P1/2t: 46.2 msec Ao max P.9 mmHg MV V2 mean: 55.9 cm/sec MV dec slope: 671.8 cm/sec2 MV mean P.5 mmHg MVA(P1/2t): 4.8 cm2 MV V2 VTI: 27.2 cm LV V1 max: 86.7 cm/sec PA V2 max: 74.2 cm/sec LV V1 max P.0 mmHg Interpretation Summary Moderate segmental systolic dysfunction (see wall motion). The estimated ejection fraction is 30 %. Septal motion consistent with IVCD. Mild (1+) mitral valve insufficiency. Trivial tricuspid valve insufficiency. No evidence for diastolic dysfunction. Ordering Physician: Koffi Mandujano Referring Physician: Dharmesh Alonso Performed By: Dean Handy, [facility]
--- NOTE | 2019-11-24 11:13 | CON.PCM_ITS ---
Problem List (1) Chest pain Status: Acute (2) Hypotension Status: Acute (3) CAD in [place] artery Status: Chronic (4) History of coronary artery stent placement Status: Chronic Comment: 3.5 x 32 mm Synergy MR BRIDGER to pLAD 07/03/19 (5) Cardiomyopathy Status: Chronic Qualifiers: Cardiomyopathy type: unspecified Qualified Code(s): I42.9 - Cardiomyopathy, unspecified (6) CHF (congestive heart failure) Status: Chronic Qualifiers: Heart failure type: systolic Heart failure chronicity: chronic Qualified Code(s): I50.22 - Chronic systolic (congestive) heart failure (7) Paroxysmal atrial fibrillation Status: Chronic (8) History of cardiac radiofrequency ablation Status: Resolved Comment: PVC Ablation 02/25/13 @ [facility] (9) HLD (hyperlipidemia) Status: Chronic Qualifiers: Hyperlipidemia type: unspecified Qualified Code(s): E78.5 - Hyperlipidemia, unspecified (10) Essential hypertension Status: Chronic (11) Peripheral arterial disease Status: Chronic Comment: BL LE's....multiple stents in both legs (12) History of carotid endarterectomy Status: Chronic Comment: 04/22/19 at [facility] (13) Acute CVA (cerebrovascular accident) Status: Chronic (14) Hypercoagulable state Status: Chronic Comment: Positive lupus anticoagulant, positive anticardiolipin anti B IgM, and increased homocystine level (15) long-term current use of anticoagulant Status: Chronic Comment: Patient is on Coumadin for PE (16) Status post below knee amputation of left lower extremity Status: Chronic Comment: at [facility] for severe PVD with non- healing wounds and recurrent infections LLE Revision done in 2018 Reason for Consult Date of Consultation: 11/24/19 History of Present Illness: The patient is a 54 year old white male with a complex medical history who presents for evaluation of chest discomfort and hypotension superimposed upon a history of CAD, PCI, cardiomyopathy, chronic systolic CHF, paroxysmal atrial fibrillation, status post ablation for PVCs, hyperlipidemia, hypertension, peripheral artery disease, carotid endarterectomy, CVA-remote, hypercoagulable state, and a left BKA, who is also pending evaluation and care at [facility] for an upcoming biventricular ICD. The patient states that he has days where he feels better and days where he does not feel as good. Yesterday he states he was not feeling well. He checked his blood pressure and noted it was low with a systolic pressure between 80 and 90 mmHg. He contacted his PCP who asked him to report to the emergency department for further evaluation. There he also complained about discomfort in his right jaw and right chest and right upper extremity. He stated this was somewhat pressure- like but somewhat sharp. He noted that his symptoms appear to improve while he was in the emergency department. He was subsequently brought into the hospital for further evaluation and care. Today he states he feels somewhat better but not quite back to his normal. During his hospitalization he has had cardiac enzymes performed which have been negative with respect to troponin I levels. His ECG is demonstrated sinus rhythm with enough underlying left bundle branch block pattern-chronic. He appears to remained in sinus rhythm and/or sinus tachycardia with his underlying left bundle branch block pattern. He states that he does have symptoms of shortness of breath and dyspnea at night. He notes that he will use his inhalers at night. He notes sometimes they help and sometimes they do not. He has not had any syncopal events. He states his discomfort seems somewhat different than discomfort he has had in the past prior to his previous cardiac arrest in June of this year that led to cardiac catheterization and LAD thrombectomy and stent. He states he has been taking his medications as prescribed. He has not missed any of his antiplatelet therapy. He notes his other medications and/or dosages have been adjusted frequently based upon his symptoms, vital signs, etc. He notes he is pending evaluation and care at [facility] in the near future. He is scheduled to have a biventricular ICD placed. [] Past Medical History Allergies/Adverse Reactions: Allergies Penicillins Allergy (Verified 11/23/19 19:50) Swelling adhesive tape Adverse Reaction (Verified 11/23/19 19:50) Rash oxycodone [From OxyContin] Adverse Reaction (Verified 11/23/19 19:50) Other it makes me go nuts Home Medications: Ambulatory Orders Medication Instructions Recorded albuterol sulfate 2.5 mg INHALATION Q6H PRN #75 ml 07/08/19 albuterol sulfate 90 mcg/actuation 1 - 2 puff INHALATION Q6H PRN #8.5 07/19/19 aerosol inhaler g enoxaparin 80 mg/0.8 mL 80 mg SC Q12H 05/26/20 subcutaneous syringe Aspirin [Aspirin, Baby] 81 mg PO DAILY@0800 11/07/19 Atorvastatin Calcium [Lipitor] 80 mg PO QHS 11/07/19 Carvedilol 12.5 mg PO BID 11/07/19 Furosemide [Lasix] 20 mg PO DAILY 11/07/19 Lisinopril 2.5 mg PO DAILY 11/07/19 Potassium Chloride 10 meq PO DAILY 11/07/19 Sertraline HCl [Zoloft] 50 mg PO QDAY 11/07/19 Tamsulosin HCl [Flomax] 0.4 mg PO DINNER 11/07/19 Ticagrelor [Brilinta] 90 mg PO BID 11/07/19 Nebulizer Accessories [Sidestream See Rx Instructions .ROUTE 11/09/19 Mask] .MEDSUPPLY gabapentin 800 mg tablet 800 mg PO BID tab 11/18/19 Past Medical History (Chronic Problems): Chronic Problems (Last Reviewed 11/24/19 @ 00:[address] Nish Peace MD) CAD in [place] artery (Chronic) Cardiomyopathy (Chronic) Paroxysmal atrial fibrillation (Chronic) HLD (hyperlipidemia) (Chronic) Acute CVA (cerebrovascular accident) (Chronic) History of coronary artery stent placement (Chronic) 3.5 x 32 mm Synergy MR BRIDGER to pLAD 07/03/19 Atherosclerosis of coronary artery of [place] heart without angina pectoris (Chronic) CHF (congestive heart failure) (Chronic) History of sudden cardiac arrest successfully resuscitated (Chronic) Chronic renal failure, stage 2 (mild) (Chronic) Depression (Chronic) History of carotid endarterectomy (Chronic) 04/22/19 at [facility] History of ischemic left MCA stroke (Chronic) 04/17/19 Debility (Chronic) due to L MCA stroke 04/17/19 Normochromic normocytic anemia (Chronic) LBBB (left bundle branch block) (Chronic) Dilated cardiomyopathy (Chronic) 27% EF on ECHO 02/18/19........non-ischemic. normal coronaries on cath August 2016 at [facility] Essential hypertension (Chronic) 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) at [facility] for severe PVD with non-healing wounds and recurrent infections LLE Revision done in 2018 long-term current use of anticoagulant (Chronic) Patient is on Coumadin for PE Peripheral arterial disease (Chronic) BL LE's....multiple stents in both legs Hypercoagulable state (Chronic) Positive lupus anticoagulant, positive anticardiolipin anti B IgM, and increased homocystine level Surgical History: cholecystectomy, - - Left CEAy 04/22/2019 at [facility], Left BKA for severe peripheral vascular disease with nonhealing wounds, cellulitis and osteomyelitis, Multiple stents in both lower extremities secondary to peripheral vascular disease, Multiple debridements of nonhealing wounds of the left lower extremity, Cardiac PCI x 1, cholecystectomy. Psychiatric History: Anxiety, Depression - *Family History Maternal Family History: Family History (Last Reviewed 11/18/19 @ 16:[address] Christie Tate MD) Mother Diabetes CVA (cerebral vascular accident) Myocardial infarction Father Cancer Kidney disease History Items: Cancer, Diabetes, Heart Disease, Renal Disease Paternal Family History: Family History (Last Reviewed 11/18/19 @ 16:[address] Christie Tate MD) Mother Diabetes CVA (cerebral vascular accident) Myocardial infarction Father Cancer Kidney disease History Items: Cancer Smoking Status: Never smoker Alcohol: None Drugs: None Review of Systems - Review of Systems General: Denies: Fever, Night Sweats, Fatigue Cardiovascular: Reports: Chest Discomfort, Chest Discomfort at Rest, Shortness of Breath, Orthopnea, Lightheadedness. Denies: PND, Peripheral Edema, Palpitations, Dizziness, Near Syncope, Syncope Respiratory: Reports: Shortness of Breath. Denies: Cough, Sputum Production, Hemoptysis Gastrointestinal: Denies: Hematemesis, Hematochezia, Melena Genitourinary: Denies: Dysuria, Hematuria Skin: Denies: Rash Subjectve: This is a 54-year-old white male who appears to be resting comfortably at the moment in no acute distress. Objective: Vital Signs Temp Pulse Resp BP Pulse Ox 98.0 F 91 18 134/71 H 96 11/24/19 09:00 11/24/19 09:00 11/24/19 09:00 11/24/19 09:00 11/24/19 09:00 Oxygen Flow Rate (L/min) 2 Oxygen Delivery Method Room Air Weight: 176 lb 12.972 oz Body Mass Index (BMI) 22.6 Finger Stick Blood Glucose 95 Intake and Output for Last 24 Hours 11/22/19 11/23/19 11/24/19 23:59 23:59 23:59 Intake Total 999 150 / 150 Output Total 0 / 0 175 / 175 Balance 1000 / 1000 -25 / -25 General: Awake, Alert, Oriented x 3, Cooperative, No Acute Distress HEENT: Atraumatic, Normocephalic, PERRL, EOMI, Sclera Non Icteric Oral: Moist Mucosa Neck: Supple, Good ROM, No JVD Lungs: Clear to auscultation Cardiovascular: Regular Rhythm, Normal S1, Normal S2 Abdomen: Bowel Sounds Present, Soft Extremities: - - Status post left BKA Psych/Mental Status: Appropriate 11/23/19 19:42: WBC 10.9, RBC 4.18 L, Hgb 12.8 L, Hct 38.7 L, MCV 92.6, MCH 30.6, MCHC 33.1, Plt Count 453 H, MPV 9.3, Immature Gran % (Auto) 0.300, Neut % (Auto) 41.1 L, Lymph % (Auto) 39.9, [place] % (Auto) 8.9, Eos % (Auto) 9.0 H, Baso % (Auto) 0.8, Absolute Neuts (auto) 4.5, Nucleated RBC % 0 11/23/19 19:42: Sodium 133 L, Potassium 3.2 L, Chloride 94 L, Carbon Dioxide 28.0, Anion Gap 11, BUN 12, Creatinine 1.31 H, Est GFR (MDRD) Af Amer 73, Est GFR (MDRD) Non-Af 61, BUN/Creatinine Ratio 9.2 L, Glucose 91, Calcium 8.6, Magnesium 1.8, Troponin I < 0.015 11/23/19 19:42: Magnesium 1.8 11/23/19 23:48: Troponin I < 0.015 11/24/19 03:09: Troponin I > 0.015 11/24/19 06:15: Troponin I < 0.015 Rhythm: Sinus rhythm/sinus tachycardia EKG: Sinus rhythm; left bundle branch block pattern ECHO: 07-09-2019 Interpretation Summary The study was technically difficult. The estimated ejection fraction is 35 %. There is evidence of diastolic dysfunction. Hypokinesis of the septum and anterior wall Diluted definity 2.0ml given slow IV push to enhance endocardial definition. The study was technically difficult. Cardiac Cath/PCI: 07-05-2019 CONCLUSIONS Single vessel CAD. Successful thrombectomy and BRIDGER to pLAD. Difficult access as the R EIA was occluded and R radial pulse was non palpable. RECOMMENDATIONS ASA Indefinigloria Garza for at least 12 months Follow up with primary route delivery service driver DESCRIPTION OF PROCEDURE The patient arrived to the procedure lab. The risks and benefits of the procedure as well as a full description of our services here and lack of surgical backup were fully explained to the patient and/or their significant other prior to the catheterization. The Timeout was completed, verifying the correct patient and procedure. The patient's procedural site was prepped and draped in the usual fashion. Local anesthetic was given subcutaneously to right groin region with Lidocaine 2%. Local anesthetic was given subcutaneously to right radial region with Lidocaine 2%. Local anesthetic was given subcutaneously to right brachial region with Lidocaine 2%. Using a modified Seldinger technique, arterial access was obtained via the right brachial artery, a 6Fr sheath was inserted.. Left Coronary Artery selective angiography was performed in multiple views using a 5 Fr. JL3.5 catheter. Right Coronary Artery selective angiography was then performed in multiple views using a 5 Fr. JR 4 catheter. LV to AO pullback pressures were then recordedThe images were reviewed and options discussed. A decision was then made to proceed with an Intervention, IVUS or other adjunct procedure. XB 3 Guide catheter was inserted and engaged into the LCA. Runthrough Guide wire was advanced to the LAD. [place] AP inserted Pass # 1 [place] AP Removed 2.5 x 20 Emerge Balloon catheter was inserted. PTCA balloon inflated at 10 atms for 6 secs. 3.5 x 32 Drug Eluting stent was advanced across the lesion in the LAD, proximal. Angiogram performed post stent deployment. The arterial sheath was sutured in place with heparinized normal saline under pressure CORONARY ANGIOGRAPHY DOMINANCE: Right Dominant LEFT HEART ASSESSMENT Left Ventricular Ejection Fraction: Not assessed LEFT MAIN: Angiographically normal LEFT ANTERIOR DESCENDING ARTERY: PROX LAD: 100 % Stenosis CIRCUMFLEX ARTERY: Mild luminal irregularities RIGHT CORONARY ARTERY: Mild luminal irregularities VALVE FINDINGS: No Aortic Valve Stenosis CXR: Preliminary evaluation: No acute cardiopulmonary disease process appreciated. Please see official report. Assessment/Plan 1. Chest pain The patient does have chest pain. It appears somewhat atypical with respect to the sharp characteristics, however, the same time he does describe concerns of pressure . He states this appears somewhat different from discomfort he has had before his previous acute cardiovascular event. He does note that his primary route delivery service driver, Dr. Tate, has wanted him to have a follow-up stress test. He has yet to have that completed. At the present time he is being monitored. His cardiac enzymes have been negative. Based upon his history and his symptoms would not be unreasonable to proceed with a pharmacologic stress nuclear imaging study to evaluate for evidence of his previous infarct as well as ischemia. If he would have ongoing myocardial ischemia then he may need to be considered for repeat diagnostic cardiac catheterization. In the meantime he will continue medical management. 2. Hypotension The patient's blood pressure was low yesterday. He does not recall letting himself become dehydrated or altering his medical therapy. The exact etiology for his transient hypotension associated symptoms is unclear. At the moment his blood pressures appear to be improved. He is feeling better overall. He continues to be monitored from a cardiac standpoint. It would not be unreasonable to continue to monitor him and reassess his left ventricular wall motion systolic function with a transthoracic echocardiogram. In the meantime we will continue medical therapy with adjustment as needed. 3. CAD status post PCI The patient presented in June of this year with a cardiopulmonary arrest situation. He underwent emergent cardiac catheterization. He subsequently is found to have LAD occlusion and underwent thrombectomy and PCI. At the present time he will need to continue medical management. He will continue his noninvasive evaluation. If the patient does require repeat diagnostic cardiac catheterization, then based upon his peripheral vascular disease and difficulty with access, as previously noted in his previous cardiovascular consultation report and cardiac catheterization report, he may need to be considered for transfer to a tertiary care center for such an evaluation. In the interim he will continue medical management. 4. Cardiomyopathy He does have a history of an underlying cardiomyopathy. At the present time he will continue medical management. His left ventricular wall motion and systolic function will be reassessed with a transthoracic echocardiogram. He is scheduled for an upcoming [facility] biventricular ICD placement based upon his diminished LV systolic function and his left bundle branch block pattern. 5. Chronic systolic CHF He does not appear to have any acute symptoms at the moment. He will need to continue medical therapy with adjustment as needed. 6. Paroxysmal atrial fibrillation He continues rate control therapy and anticoagulant therapy. 7. Status post ablation for PVCs According to the patient's previous cardiovascular records he underwent a remote ablation for underlying ventricular ectopy. 8. Hyperlipidemia He will continue medical therapy. 9. Hypertension His blood pressures are being followed. His medications can be adjusted as needed. 10. Peripheral artery disease He does have a history of extensive peripheral artery disease. This does play a role in his vascular access with respect to diagnostic cardiac catheterization/intervention, etc. He will need to continue risk factor evaluation and care and medical management. 11. Status post carotid endarterectomy He has undergone evaluation and care with carotid endarterectomy in the past. 12. CVA-remote He has had a remote CVA. He will continue medical management at this time. 13. Hypercoagulable state He has been diagnosed with a hypercoagulable state. At the moment he is on both antiplatelet therapy and anticoagulant therapy with subcutaneous Lovenox. He may eventually need to be transitioned to oral systemic anticoagulant therapy. 14. Long-term anticoagulant therapy Again he does have a history of a hypercoagulable state and thromboembolic events. He will need to continue long-term anticoagulant therapy with adjustmen t of his anticoagulant agents as deemed appropriate around the timing of his procedures, etc. 15. Status post left BKA He does have a history of a left BKA. Thus with respect to exercise tolerance test/imaging studies he cannot perform 1 via the treadmill. Thus he will have this done pharmacologically. Comment: The patient's case has been discussed and reviewed with the patient, the [facility] emergency department staff team, and the [facility] hospitalist team. This note was generated using a voice recognition system and there may be incorrect words, spelling or punctuation that were not noted when reviewing the office note prior to saving.
[2019-11-24 11:47] LABS: Anion Gap 5 (5-15); BUN 12 mg/dL (7-18); BUN/Creat Ratio 9.7 RATIO (10-20); Calcium,Total 8.2 mg/dL (8.5-10.1); Chloride 105 mmol/L (98-107); Creatinine, Serum 1.24 mg/dL (0.70-1.30); EST Glomerular Filtration Rate 65 mL/min (>60); Est Glom Filt Rate - Afr Amer 78 mL/min (>60); Estimated Creatinine Clearance 77.25 ml/min; Glucose 94 mg/dL (74-106); Potassium 5.5 mmol/L (3.5-5.1); Sodium Level 136 mmol/L (136-145)
--- NOTE | 2019-11-24 11:50 | PCM.PROGNOTE ---
Patient Problems: Active and Suspected Problems (Last Updated 11/24/19 @ 11:[address] Gustavo Baird MD) Chest pain (Acute) Anginal equivalent (Acute) Hypotension (Acute) Subjective: Chief complaint: Follow-up of admission for chest pain and transient hypotension. Patient seen and examined. No acute events overnight. Today, he still complained of intermittent mild chest pain with occasional shortness of breath. He denies dizziness or lightheadedness. Today, blood pressure improved, other vital signs are stable. - Physical Exam Vitals/I&O's: Vital Signs Temp Pulse Resp BP Pulse Ox 98.0 F 91 18 134/71 H 96 11/24/19 09:00 11/24/19 09:00 11/24/19 09:00 11/24/19 09:00 11/24/19 09:00 Oxygen Flow Rate (L/min) 2 Oxygen Delivery Method Room Air Weight: 176 lb 12.972 oz Body Mass Index (BMI) 22.6 Finger Stick Blood Glucose 95 Intake and Output for Last 24 Hours 11/22/19 11/23/19 11/24/19 23:59 23:59 23:59 Intake Total 1000 / 1000 150 / 150 Output Total 0 / 0 175 / 175 Balance 1000 / 1000 -25 / -25 General: Alert, Oriented x3, Cooperative, No apparent distress HEENT: Atraumatic, PERRLA, EOMI, Normocephalic Oral: Moist Mucosa, No Gingival or Mucosal Lesions/ Ulcerations Neck: Supple, No JVD, Negative Carotid Bruits, Trachea Midline, Thyroid Normal Size and Texture Lungs: Clear to auscultation, Normal air movement, No rhonchi, No wheeze, No rales, Diminished Cardiovascular: Regular rate, Regular Rhythm, Normal S1, Normal S2, PMI Normal Abdomen: Bowel Sounds Present, Soft, Non Tender, Non-Distended, No Hepato-splenomegaly Extremities: No clubbing, No cyanosis, No edema, - - Status below left knee amputation. Skin: No rashes, No breakdown Lymphatic: No Cervical, Supraclavicular, or Inguinal Adenopathy Neurological: Cranial nerves II-XII grossly intact, Neuro grossly intact Psych/Mental Status: Normal Affect, Appropriate, Alert and oriented to time, place, person, mood and affect Laboratory Results 11/23/19 19:42: WBC 10.9, RBC 4.18 L, Hgb 12.8 L, Hct 38.7 L, MCV 92.6, MCH 30.6, MCHC 33.1, RDW Std Deviation 56.2 H, RDW Coeff of Lawson 16.6 H, Plt Count 453 H, MPV 9.3, Immature Gran % (Auto) 0.300, Neut % (Auto) 41.1 L, Lymph % (Auto) 39.9, [place] % (Auto) 8.9, Eos % (Auto) 9.0 H, Baso % (Auto) 0.8, Absolute Neuts (auto) 4.5, Absolute Lymphs (auto) 4.33, Nucleated RBC % 0, Differential Comment SCANNED 11/23/19 19:42: Sodium 133 L, Potassium 3.2 L, Chloride 94 L, Carbon Dioxide 28.0, Anion Gap 11, BUN 12, Creatinine 1.31 H, Estim Creat Clear Calc 72.85, Est GFR (MDRD) Af Amer 73, Est GFR (MDRD) Non-Af 61, BUN/Creatinine Ratio 9.2 L, Glucose 91, Calcium 8.6, Magnesium 1.8, Troponin I < 0.015 11/23/19 19:42: Magnesium 1.8 11/23/19 23:48: Troponin I < 0.015 11/24/19 03:09: Troponin I > 0.015 11/24/19 06:15: Troponin I < 0.015 11/24/19 06:24: Sodium 136, Potassium 5.5 H, Chloride 105, Carbon Dioxide 26.0, Anion Gap 5, BUN 12, Creatinine 1.24, Estim Creat Clear Calc 77.25, Est GFR (MDRD) Af Amer 78, Est GFR (MDRD) Non-Af 65, BUN/Creatinine Ratio 9.7 L, Glucose 94, Calcium 8.2 L Clinical Impression(s) from Imaging Studies Chest X-Ray 11/23/19 20:35 IMPRESSION: No acute thoracic pathology. Electronically Signed: Antione Ventura, at 20:59 EDT Tel , Service support , Current Medications Acetaminophen (Tylenol) 650 mg PO Q6H PRN PRN PRN Reason: Pain Score 1-10/Temp > 100.7 F Albuterol Sulfate (Ventolin Aerosols) 2.5 mg INHALATION Q2H PRN PRN PRN Reason: SOB/wheezing Aspirin (Aspirin, Baby) 81 mg PO DAILY@0800 [facility] Last Admin: 11/24/19 07:29 Dose: 81 mg Documented by: Atorvastatin Calcium (Lipitor) 80 mg PO QHS [facility] Carvedilol (Coreg) 12.5 mg PO BID [facility] Last Admin: 11/24/19 09:08 Dose: 12.5 mg Documented by: Dextrose (D50w Syringe) 0 gm IV X1 PRN; Protocol PRN Reason: Hypoglycemia Enoxaparin Sodium (Lovenox) 80 mg SC Q12 [facility] Last Admin: 11/24/19 09:06 Dose: 80 mg Documented by: Furosemide (Lasix) 20 mg PO DAILY [facility] Last Admin: 11/24/19 09:08 Dose: 20 mg Documented by: Gabapentin (Neurontin) 800 mg PO BID [facility] Last Admin: 11/24/19 09:08 Dose: 800 mg Documented by: Glucagon () 1 mg IM .X1 PRN PRN Reason: Hypoglycemia Sodium Chloride () 250 mls @ 15 mls/hr IV .[id number] PRN PRN Reason: Saline Flush Sodium Chloride () 250 mls @ 15 mls/hr IV .[id number] PRN PRN Reason: Additional IVPB Infusion Lisinopril (Zestril) 2.5 mg PO DAILY [facility] Last Admin: 11/24/19 09:08 Dose: 2.5 mg Documented by: Melatonin (Melatonin) 3 mg PO QHS PRN PRN PRN Reason: INSOMNIA Morphine Sulfate () 2 mg IV Q3H PRN PRN PRN Reason: Pain Score 6-10/10 Last Admin: 11/24/19 01:05 Dose: 2 mg Documented by: Nutritional Formula (Lactose Free) (Ensure Enlive) 120 ml PO 4X/DAY [facility] Last Admin: 11/24/19 09:08 Dose: 120 ml Documented by: Ondansetron HCl (Zofran) 4 mg IV Q8H PRN PRN PRN Reason: NAUSEA/VOMITING Senna/Docusate Sodium (Senokot-S, Ami-Colace) 2 tablet PO BID PRN PRN PRN Reason: Constipation Sertraline HCl (Zoloft) 50 mg PO DAILY [facility] Last Admin: 11/24/19 09:08 Dose: 50 mg Documented by: Sodium Chloride () 10 - 40 ml IV UD PRN PRN Reason: SALINE FLUSH Last Admin: 11/24/19 01:05 Dose: 20 ml Documented by: Tamsulosin HCl (Flomax) 0.4 mg PO DINNER ERIKA Ticagrelor (Brilinta) 90 mg PO BID [facility] Last Admin: 11/24/19 09:08 Dose: 90 mg Documented by: Medical Necessity - Tobacco Use Smoking Status: Never smoker Assessment/Plan All Active Problems (Last Updated 11/24/19 @ 11:[address] Gustavo Baird MD) Chest pain (Acute) Anginal equivalent (Acute) Hypotension (Acute) This is a 54 years old male patient presented to the emergency room because of chest pain and was admitted for evaluation. #1 chest pain: Still having intermittent chest pain. EKG revealed normal sinus rhythm, LBBB, prolonged QTC, no acute ST elevation. Troponin was negative x4. Chest x-ray showed no acute findings. At this time, vital signs are stable. Patient had a history of cardiac arrest, CAD status post thrombectomy and drug eluting stents and he is supposed to go for ICD placement at [facility]. He is on aspirin, Brilinta, statins, Coreg, therapeutic Lovenox twice daily and lisinopril. BMP from today revealed potassium 5.5 which is likely because patient received 60 mEq of K. Dur yesterday. Cardiology consulted and plan for nuclear stress test and 2D echocardiogram tomorrow, discontinue potassium supplement, repeat potassium tomorrow morning. #2 transient hypotension: This was yesterday. Today, blood pressure stabilized. Continue Coreg and lisinopril as well as Lasix. #3 CAD status post CABG and stents: Plan as above, continue aspirin, statins, Coreg, Brilinta, lisinopril. Plan for 2D echocardiogram and stress test tomorrow morning. #4 cardiomyopathy/chronic systolic CHF: Clinically stable, compensated. As mentioned above, he supposed to go for ICD placement at [facility]. Plan to continue Coreg, lisinopril and Lasix, monitor volume status. #5 paroxysmal atrial fibrillation: Rate is controlled, continue Coreg for rate control. He is on therapeutic grams twice daily for anticoagulation. #6 hypertension: Blood pressure stabilized, continue current medications. #7 peripheral vascular disease: Status post below left knee amputation. Stable, no acute issues. Continue aspirin, statins and Brilinta. #8 history of CVA: Stable, continue aspirin, statins and Brilinta. #9 stage III chronic kidney disease: Baseline creatinine has been around 1.3 to 1.7 mg/dL. Today's creatinine 1.24 and GFR improved and it is above 60. Kidney function at baseline. #10 DVT prophylaxis: He is on subcu Lovenox twice daily. This note was generated with [employer] dictation software. It may contain incorrect words, spelling, and punctuation that were not noted in checking the note before signing. OBSV E&M: 64784 Subsequent observation care L2
[2019-11-24] MEDS: Tamsulosin HCl 0.4 MG Capsule PO (16:33)
[2019-11-24] MEDS: Atorvastatin Calcium 80 MG Tablet PO (21:16)
[2019-11-25] VITALS (9 sets, daily range): BP systolic 108–146; BP diastolic 71–84; PULSE 60–91; RESP 12–16; TEMP 36.6–37.1; O2SAT 96–100
--- NOTE | 2019-11-25 05:55 | EKG12_ITS ---
Test Reason : AM Blood Pressure : / mmHG Vent. Rate : 068 BPM Atrial Rate : 068 BPM P-R Int : 186 ms QRS Dur : 164 ms QT Int : 402 ms P-R-T Axes : 068 -28 127 degrees QTc Int : 427 ms Normal sinus rhythm Left bundle branch block Abnormal ECG When compared with ECG of 23-NOV-2019 23:55, MANUAL COMPARISON REQUIRED, DATA IS UNCONFIRMED Confirmed by MALDONADO ARAGON ([id number]), assignment desk editor PAULA PERKINS ([id number]) on 11/28/2019 12:21:47 PM Referred By: MANASA Confirmed By:MALDONADO ARAGON
[2019-11-25] MEDS: Aspirin 81 MG TAB.CHEW PO (06:05)
[2019-11-25] MEDS: Lisinopril 2.5 MG Tablet PO (06:05)
[2019-11-25] MEDS: TICAGRELOR 90 MG TABLET PO (06:05)
[2019-11-25] MEDS: Morphine 2 MG/ML Syringe IV (06:10)
[2019-11-25 06:20] LABS: Potassium 4.5 mmol/L (3.5-5.1)
[2019-11-25] MEDS: Gabapentin 800 MG Tablet PO (10:06)
[2019-11-25] MEDS: Carvedilol 12.5 MG Tablet PO (10:06)
[2019-11-25] MEDS: Sertraline 50 MG Tablet PO (10:06)
--- NOTE | 2019-11-25 11:15 | STRESSREP ---
Stress Test Report Pharmacologic myocardial perfusion stress test. 54-year-old man with a history of coronary artery disease. Stress protocol: Resting EKG demonstrates normal sinus rhythm with a left bundle branch block and a rate of 66 bpm. Resting blood pressure is 140/84 mmHg. 0.4 mg of regadenoson was infused per usual protocol. Continuous EKG monitoring was performed. Intravenous saline flush infusion was also injected. The maximum heart rate was 104 bpm which was 62% of maximum predicted heart rate the maximum workload was 1 metabolic equivalent. At rest no ST or T wave changes were noted to suggest abnormal flow reserve the left bundle branch block pattern remained. The resting blood pressure was 140/84 with a final blood pressure 120/64. Myocardial perfusion protocol. 12.0 mCi of technetium 99m sestamibi was injected at rest. 0.4 mg of regadenoson was infused per usual protocol. At peak infusion 33.4 mCi of technetium 99m sestamibi was injected stress images were obtained stress and rest images were reconstructed and compared in the short axis vertical long and horizontal long axis. Gated images were also obtained. Perfusion SPECT analysis: Review of the images demonstrate mildly reduced perfusion in the septum on the stress and rest images to a similar extent. The distal anterior wall also has reduced perfusion on the stress and resting images. The above may suggest a previous anterior infarct. There is some diaphragmatic attenuation noted. The rest of the spear appear to be well perfused. No obvious ischemia is noted. Gated SPECT analysis: The gated ejection fraction is noted to be 45% suggesting a mild cardiomyopathy. Conclusion: Mild cardiomyopathy. Left bundle branch block. No obvious ischemia noted.
[2019-11-25] MEDS: Enoxaparin 80 MG/0.8 ML Syringe SC (11:22)
[2019-11-25] MEDS: Furosemide 20 MG Tablet PO (11:23)
--- NOTE | 2019-11-25 12:54 | PN.CARD_ITS ---
Subjectve: The patient states he feels better today. He looks comfortable. He is not complaining of any acute events. Objective: Vital Signs Temp Pulse Resp BP Pulse Ox 97.9 F 68 16 146/84 H 100 11/25/19 10:01 11/25/19 10:51 11/25/19 10:01 11/25/19 10:01 11/25/19 10:01 Oxygen Flow Rate (L/min) 2 Oxygen Delivery Method Room Air Weight: 176 lb 12.972 oz Body Mass Index (BMI) 22.6 Finger Stick Blood Glucose 95 Intake and Output for Last 24 Hours 11/23/19 11/24/19 11/25/19 23:59 23:59 23:59 Intake Total 1000 / 1000 1200 / 1200 400 / 400 Output Total 0 / 0 1825 / 1825 1200 / 1200 Balance 1000 / 1000 -625 / -625 -800 / -800 General: Awake, Alert, Oriented x 3, Cooperative, No Acute Distress HEENT: Atraumatic, Normocephalic, PERRL, EOMI, Sclera Non Icteric Oral: Moist Mucosa Neck: Supple, Good ROM, No JVD Lungs: Clear to auscultation Cardiovascular: Regular Rhythm, Normal S1, Normal S2 Abdomen: Bowel Sounds Present, Soft Extremities: No edema Psych/Mental Status: Appropriate 11/25/19 05:30: Potassium 4.5 Rhythm: Sinus rhythm ECHO: Interpretation Summary Moderate segmental systolic dysfunction (see wall motion). The estimated ejection fraction is 30 %. Septal motion consistent with IVCD. Mild (1+) mitral valve insufficiency. Trivial tricuspid valve insufficiency. No evidence for diastolic dysfunction. Stress Test: Stress Test Report Pharmacologic myocardial perfusion stress test. 54-year-old man with a history of coronary artery disease. Stress protocol: Resting EKG demonstrates normal sinus rhythm with a left bundle branch block and a rate of 66 bpm. Resting blood pressure is 140/84 mmHg. 0.4 mg of regadenoson was infused per usual protocol. Continuous EKG monitoring was performed. Intra venous saline flush infusion was also injected. The maximum heart rate was 104 bpm which was 62% of maximum predicted heart rate the maximum workload was 1 metabolic equivalent. At rest no ST or T wave changes were noted to suggest abnormal flow reserve the left bundle branch block pattern remained. The resting blood pressure was 140/84 with a final blood pressure 120/64. Myocardial perfusion protocol. 12.0 mCi of technetium 99m sestamibi was injected at rest. 0.4 mg of regadenoson was infused per usual protocol. At peak infusion 33.4 mCi of technetium 99m sestamibi was injected stress images were obtained stress and rest images were reconstructed and compared in the short axis vertical long and horizontal long axis. Gated images were also obtained. Perfusion SPECT analysis: Review of the images demonstrate mildly reduced perfusion in the septum on the stress and rest images to a similar extent. The distal anterior wall also has reduced perfusion on the stress and resting images. The above may suggest a previous anterior infarct. There is some diaphragmatic attenuation noted. The rest of the spear appear to be well perfused. No obvious ischemia is noted. Gated SPECT analysis: The gated ejection fraction is noted to be 45% suggesting a mild cardiomyopathy. Conclusion: Mild cardiomyopathy. Left bundle branch block. No obvious ischemia noted. Medical Necessity - Tobacco Use Smoking Status: Never smoker Assessment/Plan 1. Chest pain The patient does have chest pain. It appears somewhat atypical with respect to the sharp characteristics, however, the same time he does describe concerns of pressure . He states this appears somewhat different from discomfort he has had before his previous acute cardiovascular event. He does note that his primary tin stacker, Dr. Tate, has wanted him to have a follow-up stress test. This is now been completed. It did not report any obvious ischemia. Thus at the present time it does not appear the patient requires repeat diagnostic cardiac catheterization. He will continue medical therapy. 2. Hypotension The patient's blood pressure was low yesterday. He does not recall letting himself become dehydrated or altering his medical therapy. The exact etiology for his transient hypotension associated symptoms is unclear. At the moment his blood pressures appear to be improved. He is feeling better overall. He continues to be monitored from a cardiac standpoint. A follow-up transthoracic echocardiogram has been completed. His estimated LVEF was 30%. 3. CAD status post PCI The patient presented in June of this year with a cardiopulmonary arrest situation. He underwent emergent cardiac catheterization. He subsequently is found to have LAD occlusion and underwent thrombectomy and PCI. At the present time he will need to continue medical management. 4. Cardiomyopathy He does have a history of an underlying cardiomyopathy. At the present time he will continue medical management. His left ventricular wall motion and systolic function has been reassessed with a transthoracic echocardiogram. His estimated LVEF was 30%. He is scheduled for an upcoming [facility] biventricular ICD placement based upon his diminished LV systolic function and his left bundle branch block pattern. 5. Chronic systolic CHF He does not appear to have any acute symptoms at the moment. He will need to continue medical therapy with adjustment as needed. 6. Paroxysmal atrial fibrillation He continues rate control therapy and anticoagulant therapy. 7. Status post ablation for PVCs According to the patient's previous cardiovascular records he underwent a remote ablation for underlying ventricular ectopy. 8. Hyperlipidemia He will continue medical therapy. 9. Hypertension His blood pressures are being followed. His medications can be adjusted as needed. 10. Peripheral artery disease He does have a history of extensive peripheral artery disease. This does play a role in his vascular access with respect to diagnostic cardiac cathete rization/intervention, etc. He will need to continue risk factor evaluation and care and medical management. 11. Status post carotid endarterectomy He has undergone evaluation and care with carotid endarterectomy in the past. 12. CVA-remote He has had a remote CVA. He will continue medical management at this time. 13. Hypercoagulable state He has been diagnosed with a hypercoagulable state. At the moment he is on both antiplatelet therapy and anticoagulant therapy with subcutaneous Lovenox. He may eventually need to be transitioned to oral systemic anticoagulant therapy. 14. Long-term anticoagulant therapy Again he does have a history of a hypercoagulable state and thromboembolic events. He will need to continue long-term anticoagulant therapy with adjustment of his anticoagulant agents as deemed appropriate around the timing of his procedures, etc. 15. Status post left BKA He does have a history of a left BKA. Thus with respect to exercise tolerance test/imaging studies he cannot perform 1 via the treadmill. Thus he will have this done pharmacologically. Comment: The patient's case has been discussed and reviewed with the patient, his spouse, and Dr. Burris. This note was generated using a voice recognition system and there may be incorrect words, spelling or punctuation that were not noted when reviewing the office note prior to saving.
[2019-11-25] MEDS: Tamsulosin HCl 0.4 MG Capsule PO (15:24)
--- NOTE | 2019-11-25 16:28 | PCM.DC ---
- Discharge Diagnoses Current Active Problems: Current Active and Chronic Problems (Last Updated 11/24/19 @ 11:[address] Gustavo Baird MD) Chest pain (Acute) Anginal equivalent (Acute) Hypotension (Acute) CAD in [place] artery (Chronic) You will use the following diet at home:: No restrictions Your food should be the consistency of: Regular Your liquids should be the consistency of: Regular/Thin Discharge Activity: Return to Normal Activity Weight Bearing Status: Full weight bearing Allergies/Adverse Reactions: Allergies Penicillins Allergy (Verified 11/23/19 19:50) Swelling adhesive tape Adverse Reaction (Verified 11/23/19 19:50) Rash oxycodone [From OxyContin] Adverse Reaction (Verified 11/23/19 19:50) Other it makes me go nuts Medications to take at Discharge albuterol sulfate 2.5 mg INHALATION Q6H PRN #75 ml 07/08/19 albuterol sulfate 90 mcg/actuation aerosol inhaler 1 - 2 puff INHALATION Q6H PRN #8.5 g 07/19/19 enoxaparin 80 mg/0.8 mL subcutaneous syringe 80 mg SC Q12H 10/22/19 Aspirin [Aspirin, Baby] 81 mg PO DAILY@0800 11/07/19 Atorvastatin Calcium [Lipitor] 80 mg PO QHS 11/07/19 Carvedilol 12.5 mg PO BID 11/07/19 Furosemide [Lasix] 20 mg PO DAILY 11/07/19 Lisinopril 2.5 mg PO DAILY 11/07/19 Sertraline HCl [Zoloft] 50 mg PO QDAY 11/07/19 Tamsulosin HCl [Flomax] 0.4 mg PO DINNER 11/07/19 Ticagrelor [Brilinta] 90 mg PO BID 11/07/19 Nebulizer Accessories [Sidestream Mask] See Rx Instructions .ROUTE .MEDSUPPLY 11/09/19 gabapentin 800 mg tablet 800 mg PO BID tab 11/18/19 Primary Care Physician: Dharmesh Alonso MD [Primary Care Provider] - Please follow up with your Primary Care Physician in: as scheduled Test Results: Test results from this visit will be discussed in further detail at your follow-up appointment, if applicable. Please Follow Up With: your link and link knitting machine operator When: as scheduled
--- NOTE | 2019-11-26 09:47 | PCM.DC.SUM ---
Discharge Date and Diagnosis Date of Admission: 11/23/19 Date of Discharge: 11/25/19 - Primary Discharge Diagnosis Acute Problems: #1 musculoskeletal chest pain #2 ischemic cardiomyopathy #3 coronary artery disease #4 chronic systolic congestive heart failure #5 paroxysmal atrial fibrillation #6 hypokalemia #7 hyperkalemia #8 hyperlipidemia - Secondary Discharge Diagnosis Chronic Problems: Chronic Problems (Last Updated 11/24/19 @ 11:[address] Gustavo Baird MD) CAD in tetlin artery (Chronic) Paroxysmal atrial fibrillation (Chronic) HLD (hyperlipidemia) (Chronic) Acute CVA (cerebrovascular accident) (Chronic) History of coronary artery stent placement (Chronic) 3.5 x 32 mm Synergy MR BRIDGER to pLAD 07/03/19 Atherosclerosis of coronary artery of tetlin heart without angina pectoris (Chronic) CHF (congestive heart failure) (Chronic) History of sudden cardiac arrest successfully resuscitated (Chronic) Chronic renal failure, stage 2 (mild) (Chronic) Depression (Chronic) History of carotid endarterectomy (Chronic) 04/22/19 at [facility] History of ischemic left MCA stroke (Chronic) 04/17/19 Debility (Chronic) due to L MCA stroke 04/17/19 Normochromic normocytic anemia (Chronic) LBBB (left bundle branch block) (Chronic) Dilated cardiomyopathy (Chronic) 27% EF on ECHO 02/18/19........non-ischemic. 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) at [facility] for severe PVD with non-healing wounds and recurrent infections LLE Revision done in 2018 [employer] current use of anticoagulant (Chronic) Patient is on Coumadin for PE Peripheral arterial disease (Chronic) BL LE's....multiple stents in both legs Hypercoagulable state (Chronic) Positive lupus anticoagulant, positive anticardiolipin anti B IgM, and increased homocystine level Hospital Course and Treatment Operations: None Procedures: 2-D Echocardiogram, Nuclear stress test Summary of Care Provided: The patient is a 54 year old M was seen in the emergency room at [facility] with a chief complaint of chest pain, he also stated he felt lightheaded and that he might pass out. Work-up in the emergency room included an EKG which showed a sinus rhythm with a left bundle branch block, troponin was normal, creatinine was slightly elevated at 1.31 and potassium was slightly low at 3.2. Chest x-ray was performed which showed no acute thoracic pathology. Patient was placed into observation status on PCU, cardiac enzymes were cycled and these remain normal. He was seen in consultation by cardiology, patient was given supplemental potassium but then had a slightly high potassium level and this was normal on recheck the next day. Patient underwent an echocardiogram and a nuclear stress test, the nuclear stress test showed no evidence of reversible ischemia, echocardiogram showed a reduced ejection fraction of 30%. On 11/25/2019, patient was seen and examined: On examination he appeared in good health and spirits. Vital signs as documented. Skin warm and dry and without overt rashes. Neck without JVD, neck was supple, trachea midline, thyroid was normal. Lungs clear bilaterally, normal air movement was noted. Heart exam notable for regular rhythm, normal sounds and absence of murmurs, rubs or gallops. Abdomen unremarkable and without evidence of organomegaly, masses, or abdominal aortic enlargement. Bowel sounds are present, abdomen is not distended. Extremities nonedematous, no cyanosis was noted, no clubbing was noted. Neuro: Cranial nerves II through XII are grossly intact, no focal motor deficits were noted, sensation to light touch and pinprick intact, motor exam 5/5 throughout. Psych: Patient is alert and oriented x3, he does not appear anxious or depressed, he does not appear agitated. Patient was felt to be stable for discharge home on 11/25/2019. - Physical Exam Vitals/I&O's: Vital Signs Temp Pulse Resp BP Pulse Ox 97.9 F 63 16 121/73 H 100 11/25/19 15:23 11/25/19 15:23 11/25/19 15:23 11/25/19 15:23 11/25/19 15:23 Oxygen Flow Rate (L/min) 2 Oxygen Delivery Method Room Air Weight: 80.2 kg Body Mass Index (BMI) 22.6 Finger Stick Blood Glucose 95 Intake and Output for Last 24 Hours 11/24/19 11/25/19 11/26/19 23:59 23:59 23:59 Intake Total 1200 / 1200 400 / 400 Output Total 1825 / 1825 1200 / 1200 Balance -625 / -625 -800 / -800 Discharge Activity: Return to Normal Activity Weight Bearing Status: Full weight bearing Home Medications: Medications to take at Discharge albuterol sulfate 2.5 mg INHALATION Q6H PRN #75 ml 07/08/19 albuterol sulfate 90 mcg/actuation aerosol inhaler 1 - 2 puff INHALATION Q6H PRN #8.5 g 07/19/19 enoxaparin 80 mg/0.8 mL subcutaneous syringe 80 mg SC Q12H 10/22/19 Aspirin [Aspirin, Baby] 81 mg PO DAILY@0800 11/07/19 Atorvastatin Calcium [Lipitor] 80 mg PO QHS 11/07/19 Carvedilol 12.5 mg PO BID 11/07/19 Furosemide [Lasix] 20 mg PO DAILY 11/07/19 Lisinopril 2.5 mg PO DAILY 11/07/19 Sertraline HCl [Zoloft] 50 mg PO QDAY 11/07/19 Tamsulosin HCl [Flomax] 0.4 mg PO DINNER 11/07/19 Ticagrelor [Brilinta] 90 mg PO BID 11/07/19 Nebulizer Accessories [Sidestream Mask] See Rx Instructions .ROUTE .MEDSUPPLY 11/09/19 gabapentin 800 mg tablet 800 mg PO BID tab 11/18/19 Primary Care Physician: Dharmesh Alonso MD [Primary Care Provider] - Please follow up with your Primary Care Physician in: as scheduled Please Follow Up With: your executive wellness programs director When: as scheduled Disposition: Home Minutes spent on discharge:: 31 Patient Condition:: Stable Medical Necessity - Tobacco Use Smoking Status: Never smoker Meaningful Use Info Meaningful Use Diagnoses (Choose all that apply): None applicable OBSV E&M: 64787 Observation care discharge
== END 2019-11-25 16:30 | disposition home or self-care (01) ==
LOC: ED 22:00 → PCU 22:49
PROVIDERS: Hospitalist; Internal Medicine Cardiovascular Disease; Admitting Provider Hospitalist; Emergency Provider Emergency Medicine; PCP Internal Medicine; Visit Provider Internal Medicine
DX: R07.89 Other chest pain (principal); I25.5 Ischemic cardiomyopathy; I25.10 Atherosclerotic heart disease of native coronary artery without angina pectoris; I48.0 Paroxysmal atrial fibrillation; F32.9 Major depressive disorder, single episode, unspecified; D68.62 Lupus anticoagulant syndrome; F41.9 Anxiety disorder, unspecified; N40.0 Benign prostatic hyperplasia without lower urinary tract symptoms; G62.9 Polyneuropathy, unspecified; E78.5 Hyperlipidemia, unspecified; I50.22 Chronic systolic (congestive) heart failure; E87.6 Hypokalemia; R42 Dizziness and giddiness; R11.0 Nausea; I13.0 Hypertensive heart and chronic kidney disease with heart failure and stage 1 through stage 4 chronic kidney disease, or unspecified chronic kidney disease; N18.2 Chronic kidney disease, stage 2 (mild); I73.9 Peripheral vascular disease, unspecified; Z89.512 Acquired absence of left leg below knee; Z79.899 Other long term (current) drug therapy; Z86.74 Personal history of sudden cardiac arrest; Z79.82 Long term (current) use of aspirin; Z79.01 Long term (current) use of 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s; Z86.711 Personal history of pulmonary embolism; Z86.718 Personal history of other venous thrombosis and embolism; I44.7 Left bundle-branch block, unspecified
CPT/HCPCS: 36415; 71045; 78452; 80048; 83735; 84132; 84484; 85025; 93005; 93017; 93306; 96361; 96372; 96374; 96375; 96376; 97802; 99218; 99285; A9500; J7030; Q9957; A4216; G0378; J2785

== ENCOUNTER 2019-11-29 19:42 | Inpatient (IN) | payer BC, SELFPAY ==
[2019-07-04 09:02] VITALS: BMI 29.8
[2019-11-23 23:38] VITALS: BMI 22.6
[2019-11-29] VITALS (7 sets, daily range): BP systolic 80–94; BP diastolic 47–61; PULSE 82–104; RESP 13–16; TEMP 36.6–36.7; O2SAT 97–99; BMI 19.0; BMI 23.3; BMI 23.4
--- NOTE | 2019-11-29 20:01 | ED.RN ---
PT STARTED TO HAVE CHEST PAIN AT 1955. DR SCHWARTZ NOTIFIED OF AT 1956. RESPIRATORY IN PT ROOM FOR EKG AT 1957. DR. LUO AT BEDSIDE AT 1999.
--- NOTE | 2019-11-29 20:13 | RAD_ITS ---
STUDY: X-RAY CHEST REASON FOR EXAM: Male, 54 years old. VISION LOSS AND NAUSEA . HX OF HEART ATTACK AND STROKE TECHNIQUE: Single frontal view of the chest. COMPARISON: November 23, 2019 FINDINGS: The lungs are clear and expanded. There is no demonstrated pleural abnormality. Normal size heart. Normal mediastinum and edgar. Normal visualized pulmonary arteries. Normal visualized aortic arch and descending thoracic aorta. Normal visualized thoracic spine. Normal visualized ribs, clavicles, and shoulders. There is no demonstrated abnormality of the visualized soft tissue structures of the upper abdomen. RAD/Chest 1 View (Portable) IMPRESSION: Normal x-ray examination of the chest. Electronically Signed: Marvin Evangelista MD at 20:25 EDT , Service support ,
--- NOTE | 2019-11-29 20:13 | ED.RN ---
RN CALLED FOR EKG, PULLED OLD EKGS FOR
--- NOTE | 2019-11-29 20:22 | EKG12_ITS ---
Test Reason : CP/NEURO Blood Pressure : / mmHG Vent. Rate : 101 BPM Atrial Rate : 101 BPM P-R Int : 154 ms QRS Dur : 164 ms QT Int : 424 ms P-R-T Axes : 063 031 119 degrees QTc Int : 549 ms Sinus tachycardia Left bundle branch block Abnormal ECG Confirmed by MALDONADO ARAGON ([id number]), make up editor PAULA PERKINS ([id number]) on 12/02/2019 2:10:55 PM Referred By: Nish Peace Confirmed By:MALDONADO ARAGON
--- NOTE | 2019-11-29 20:23 | CT_ITS ---
STUDY: CTA CHEST REASON FOR EXAM: Male, 54 years old. CHEST PAIN RADIATING INTO NECK,LOOKING FOR DISSECTION -- HX:BLOODDISORDERS,CVA,DE RADIATION DOSAGE (If Supplied By Facility): CTDIvol = ( 10.00 ) mGy, DLP = ( 446.00 ) mGycm TECHNIQUE: The examination was performed with the intravenous administration of IV 100mL Isovue-370. Post-processing of the angiographic images was performed, with multiplanar reformation and 3D reconstruction. Individualized dose optimization techniques were used for this CT. COMPARISON: Chest x-ray November 29, 2019 and CTA chest November 07, 2019 FINDINGS: Normal enhancement of the main pulmonary artery and right and left pulmonary arteries. Normal enhancement of the bilateral peripheral pulmonary arteries. There is no demonstrated pulmonary embolism. Normal thoracic aorta and visualized great vessels. There is no demonstrated aortic dissection. Normal heart and pericardium. Coronary artery disease. Normal mediastinum. Normal hilar regions. Normal visualized trachea and bronchi. The lungs are well expanded. Normal pulmonary parenchyma. Normal pleura. Normal chest wall structures. Subacute incompletely healed nondisplaced sternal fracture. Normal visualized upper abdomen. CT/CTA Chest W/WO Contrast IMPRESSION: Healing sternal fracture unchanged. Coronary artery disease. Electronically Signed: Marvin Evangelista MD at 21:10 EDT , Service support ,
[2019-11-29] MEDS: 0.9% Normal Saline 1,000 ML 1000 ML IV (20:26)
[2019-11-29 20:37] LABS: Absolute Lymphocyte Count 4.66 X10^3/uL (0.83-4.51); Absolute Neutrophil Count 4.5 X10^3/uL (2.0-7.7); Basophil# 0.09 X10^3/uL; Basophil% 0.8 % (0-1); Eosinophil# 0.58 X10^3/uL; Eosinophils% 5.4 % (0-5); Hematocrit 37.6 % (40-54); Hemoglobin 12.8 g/dL (13.0-16.5); Lymphocyte # 4.66 X10^3/ul (4.0); Lymphocyte % 43.7 % (19-41); Mean Corpuscular Hgb 31.4 pg (27.0-32.0); Mean Corpuscular Volume 92.4 fL (80-94); Mean Platelet Vol. 9.2 fl (6.2-12.0); Monocyte# 0.83 X10^3/uL; Monocyte% 7.8 % (0-10); NRBC Flagged by Analyzer 0 % (0-5); Neutrophil # 4.46 X10^3/uL (2.7-7.7); Neutrophil % 41.9 % (47-70); POSITIVE MORPHOLOGY YES; Platelet Count 474 K/mm3 (150-450); RBC Distribution Width CV 16.3 % (11.6-14.6); RBC Distribution Width SD 54.6 fl (35.1-43.9); Red Blood Count 4.07 M/mm3 (4.6-6.2); White Blood Count 10.7 K/mm3 (4.4-11.0)
[2019-11-29 20:41] LABS: Prothrombin Time (Protime)PT. 13.1 SECONDS (11.7-14.9)
[2019-11-29 20:42] LABS: Partial Thromboplast Time 28.8 Seconds (24.1-36.2)
[2019-11-29] MEDS: Aspirin 81 MG TAB.CHEW 324 MG PO (20:46)
[2019-11-29 20:51] LABS: Differential Indicated SCAN CRITERIA MET
[2019-11-29 21:26] LABS: Atypical Lymphocyte 1+ %; Platelet Estimate SLT INC (ADEQ)
--- NOTE | 2019-11-29 21:35 | EKG12_ITS ---
Test Reason : REPEAT Blood Pressure : / mmHG Vent. Rate : 088 BPM Atrial Rate : 088 BPM P-R Int : 166 ms QRS Dur : 164 ms QT Int : 462 ms P-R-T Axes : 059 004 114 degrees QTc Int : 559 ms Normal sinus rhythm Left bundle branch block Abnormal ECG Confirmed by MALDONADO ARAGON ([id number]), editor greeting card PAULA PERKINS ([id number]) on 12/02/2019 2:11:05 PM Referred By: Nish Peace Confirmed By:MALDONADO ARAGON
[2019-11-29] MEDS: 0.9% Normal Saline 1,000 ML 999 ML IV (21:41)
[2019-11-29] MEDS: Heparin Injection (Vial) 5,000 UNIT/ML VIAL 4000 UNIT IV (21:41)
--- NOTE | 2019-11-29 22:06 | ED.VIS.GEN ---
History of Present Illness Chief Complaint: Neuro S/Sx Informant: Patient Narrative: Patient is a 54-year-old male with a past medical history of CAD, cardiac arrest, heart failure, stent placed, stroke who presents to the emergency department for chest pain. He currently rates his chest pain as severe and crushing. This started earlier today. States that his vision has also changed. He does have chronic visual deficits where he has to look up the side of his eye to be able to see. Now he feels like there are white clouds in his eyes bilaterally. His chest pain did radiate into his back. He did have some back pain yesterday but this did resolve. The pain also radiates into his shoulder blades bilaterally. He does have associated dyspnea with this. He denies any recent cough, cold, congestion. No fevers or chills. No leg swelling or calf pain. No history of DVT/PE. He is on Brilinta and aspirin and states he has been very compliant with this. He is supposed to have a pacemaker placed. Past Medical History - Allergies and Home Meds Allergies/Adverse Reactions: Allergies Penicillins Allergy (Verified 11/29/19 19:47) Swelling adhesive tape Adverse Reaction (Verified 11/29/19 19:47) Rash oxycodone [From OxyContin] Adverse Reaction (Verified 11/29/19 19:47) Other it makes me go nuts Past Medical History: - - CAD, stroke Surgical History: cholecystectomy, - - Left CEAy 04/22/2019 at [facility], Left BKA for severe peripheral vascular disease with nonhealing wounds, cellulitis and osteomyelitis, Multiple stents in both lower extremities secondary to peripheral vascular disease, Multiple debridements of nonhealing wounds of the left lower extremity, Cardiac PCI x 1, cholecystectomy. Lives: Spouse/ Significant Other Smoking Status: Former smoker - Family History Maternal Family History: Family History (Last Reviewed 11/18/19 @ 16:[address] Christie Tate MD) Mother Diabetes CVA (cerebral vascular accident) Myocardial infarction Father Cancer Kidney disease Family History: Reports: Cancer, Diabetes, Heart Disease, Renal Disease Paternal Family History: Family History (Last Reviewed 11/18/19 @ 16:[address] Christie Tate MD) Mother Diabetes CVA (cerebral vascular accident) Myocardial infarction Father Cancer Kidney disease Family History: Reports: Cancer Review of Systems All systems negative except as indicated General: Denies: Chills, Fever, Sweats Eyes: Reports: Visual changes - left, Visual changes - right. Denies: Visual changes - bilaterally, Diplopia ENT: Denies: Rhinorrhea, Sore throat Cardiovascular: Reports: Chest pain. Denies: Palpitations Respiratory: Reports: Dyspnea. Denies: Cough, Dyspnea on exertion Gastrointestinal: Denies: Abdominal pain, Nausea, Vomiting, Diarrhea, Melena, Hematochezia Genitourinary: Denies: Dysuria, Hematuria, Frequency Musculoskeletal: Denies: Back pain, Extremity Pain Skin: Denies: Rash, Wounds Neurological: Reports: Headache, - - No speech difficulty.. Denies: Weakness, Parasthesia, Numbness Physical Exam Vital Signs/Narrative: Vital Signs Temp Pulse Resp BP Pulse Ox 11/29/19 21:43 16 94/61 11/29/19 21:13 88 14 81/58 L 99 11/29/19 20:48 90 16 80/47 L 99 11/29/19 20:28 99 11/29/19 19:44 98.1 F 104 H 15 87/50 L 97 Inital Vital Signs reviewed: Yes General: Well nourished, Well developed, Acute Distress Cardiovascular: Tachycardia Respiratory: CTA bilaterally. Negative for: Rales, Rhonchi, Wheezing Abdomen: Soft, Nontender Neurological: Alert, Oriented x3, Normal Strength, Normal Sensation. Negative for: Confused, Disoriented, Inattentive, Parasthesia, Weakness, Left side facial droop, Right side facial droop - Cranial nerves intact although patient states that he does have some vision changes. He does have baseline visual deficits from former stroke. Also has some right arm numbness which is at his baseline from previous stroke. Diagnostic/Tx/Re-eval Chest X-Ray - ED: 1 View No obvious consolidation. No widened mediastinum. No cardiomegaly. - Rhythm Strip Rhythm Strip: Sinus Rhythm - EKG Initial EKG Interpretation: Sinus Rhythm - Rate of 101 bpm in sinus tachycardia with a left bundle branch block. QRS is 164. Otherwise normal intervals. Normal axis. Mild elevation of T waves. Comparing to prior EKG this is slightly worse but left bundle branch block was present on November 242019. - Medical Decision Making Patient presented to the emergency department in acute distress with crushing chest pain was hypotensive and tachycardic. He states that he was having some visual changes as well. His pain did radiate into his back. KG was obtained immediately upon arrival which showed his left bundle branch block although the T waves seem slightly more significant. Did not meet Scarbosa's criteria for STEMI. IV was established and patient started on normal saline. Bedside ultrasound obtained which did not show any large pericardial effusion. At that time cardiology was consulted to review the EKG. Patient was sent over for CT scan of the chest at that time to evaluate for aortic dissection. No dissection was appreciated or any large pulmonary embolism. Patient still continued to have this chest pain on and off and was hypotensive. At that time cardiology decided to take the patient to the catheter lab. I did recommend starting him on heparin as well. At time of transfer to the Sterilization Technician patient's map was at 65. Chest pain was slightly relieved with a dose of morphine. I did discuss with the hospitalist about a potential MRI brain given his visual changes, although he does have baseline visual deficits from his previous stroke. Given his hypotension I believe that this could be what is causing the worsening symptoms. Creatinine unfortunately is slightly elevated. Would not want to do another IV dose for CT angios head and neck at this time. Patient made aware of all findings and will be brought into the hospital for further evaluation and management. He understands and is agreeable with this plan. - Critical Care Time Critical care time (excluding procedures): 30-74 minutes, Discussing w/Patient &/or Family/Electrical Maintenance Supervisor, Discussing w/Consultants, Arranging Admission or Transfer, Performing Direct Patient Care at Bedside ED Disposition - Plan for ED Patient: Disposition: Acute Care Hospital [facility] Diagnosis: Unstable angina, Hypotension, Visual disturbance, LBBB (left bundle branch block), JUAN (acute kidney injury)
--- NOTE | 2019-11-29 22:13 | HP.PCM_ITS ---
Problem List (1) Visual disturbance Status: Acute (2) JUAN (acute kidney injury) Status: Acute (3) Chest pain Status: Acute (4) Anginal equivalent Status: Acute (5) Hypotension Status: Acute (6) CAD in [place] artery Status: Chronic (7) Paroxysmal atrial fibrillation Status: Chronic (8) HLD (hyperlipidemia) Status: Chronic Qualifiers: Hyperlipidemia type: unspecified Qualified Code(s): E78.5 - Hyperlipidemia, unspecified (9) Acute CVA (cerebrovascular accident) Status: Chronic (10) History of coronary artery stent placement Status: Chronic Comment: 3.5 x 32 mm Synergy MR BRIDGER to pLAD 07/03/19 (11) Atherosclerosis of coronary artery of [place] heart without angina pectoris Status: Chronic Qualifiers: Coronary Disease-Associated Artery/Lesion type: [place] artery Qualified Code(s): I25.10 - Atherosclerotic heart disease of [place] coronary artery without angina pectoris (12) CHF (congestive heart failure) Status: Chronic Qualifiers: Heart failure type: systolic Heart failure chronicity: chronic Qualified Code(s): I50.22 - Chronic systolic (congestive) heart failure (13) 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 (14) Chronic renal failure, stage 2 (mild) Status: Chronic (15) Depression Status: Chronic Qualifiers: Depression Type: unspecified Qualified Code(s): F32.9 - Major depressive disorder, single episode, unspecified (16) History of carotid endarterectomy Status: Chronic Comment: 04/22/19 at [facility] (17) History of ischemic left MCA stroke Status: Chronic Comment: 04/17/19 (18) Debility Status: Chronic Comment: due to L MCA stroke 04/17/19 (19) Normochromic normocytic anemia Status: Chronic (20) LBBB (left bundle branch block) Status: Chronic (21) Dilated cardiomyopathy Status: Chronic Comment: 27% EF on ECHO 02/18/19........non-ischemic. 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 Status: Chronic Comment: Patient is on Coumadin for PE (25) Peripheral arterial disease Status: Chronic Comment: BL LE's....multiple stents in both legs (26) Hypercoagulable state Status: Chronic Comment: Positive lupus anticoagulant, positive an ticardiolipin anti B IgM, and increased homocystine level History of Present Illness Date of Admission: 11/30/19 Chief Complaint: chest pain The patient is a 54 year old M with a significant history of cardiac arrest; CAD status post LAD thrombectomy and drug-eluting stent; CKD; hypertension; hypercoagulable state with a PE and DVT; left below the knee amputation secondary to DVT; and congestive heart failure who presents to emergency department with excruciating episodic substernal sharp stabbing chest pain that radiated to his right jaw; is bilateral shoulder blades into his back. His chest pain improves with lying back and it worsens with leaning forward. Associated with his symptoms is severe nausea and worsening of his vision loss. He feels like he is seeing bright lights. Further he had right temporal headache. Patient was initially hypotensive at the ED. At baseline patient EKG shows left bundle branch block. Because the T wave in the left bundle branch block appeared elevated the case were discussed with a call centre supervisor and the patient was emergently taken to the [facility] where his stent in his LAD was found to be patent; and the rest of his coronary arteries were nonobstructive. Of note patient is scheduled to see a call centre supervisor at [facility] on 12/02/2019. There are plans for him to get a pacemaker?ICD in 2 weeks time. Past Medical History Past Medical History (Chronic Problems): Chronic Problems (Last Reviewed 11/30/19 @ 03:[address] Nish Peace MD) CAD in [place] artery (Chronic) Paroxysmal atrial fibrillation (Chronic) HLD (hyperlipidemia) (Chronic) Acute CVA (cerebrovascular accident) (Chronic) History of coronary artery stent placement (Chronic) 3.5 x 32 mm Synergy MR BRIDGER to pLAD 07/03/19 Atherosclerosis of coronary artery of [place] heart without angina pectoris (Chronic) CHF (congestive heart failure) (Chronic) History of sudden cardiac arrest successfully resuscitated (Chronic) Chronic renal failure, stage 2 (mild) (Chronic) Depression (Chronic) History of carotid endarterectomy (Chronic) 04/22/19 at [facility] History of ischemic left MCA stroke (Chronic) 04/17/19 Debility (Chronic) due to L MCA stroke 04/17/19 Normochromic normocytic anemia (Chronic) LBBB (left bundle branch block) (Chronic) Dilated cardiomyopathy (Chronic) 27% EF on ECHO 02/18/19........non-ischemic. 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 Nish Peace MD) Paroxysmal atrial fibrillation (Chronic) I48.0 HLD (hyperlipidemia) (Chronic) E78.5 Acute CVA (cerebrovascular accident) (Chronic) I63.9 Atherosclerosis of coronary artery of [place] heart without angina pectoris (Chronic) I25.10 CHF (congestive heart failure) (Chronic) I50.9 History of sudden cardiac arrest successfully resuscitated (Chronic) Z86.74 Chronic renal failure, stage 2 (mild) (Chronic) N18.2 Depression (Chronic) F32.9 History of ischemic left MCA stroke (Chronic) Z86.73 04/17/19 Debility (Chronic) R53.81 due to L MCA stroke 04/17/19 Normochromic normocytic anemia (Chronic) D64.9 Dilated cardiomyopathy (Chronic) I42.0 27% EF on ECHO 02/18/19........non-ischemic. normal coronaries on cath August 2016 at [facility] Essential hypertension (Chronic) I10 salvage determiner current use of anticoagulant (Chronic) Z79.01 Patient is on Coumadin for PE Peripheral arterial disease (Chronic) I73.9 BL LE's....multiple stents in both legs Hypercoagulable state (Chronic) D68.59 Positive lupus anticoagulant, positive anticardiolipin anti B IgM, and increased homocystine level Anemia D64.9 Arthritis M19.90 Vascular disease I99.9 Gallstones K80.20 Cardiac arrest (Inactive) I46.9 Chronic osteomyelitis of left tibia (Inactive) M86.662 chronic osteomyelitis left tibia at [facility] stump History of DVT (deep vein thrombosis) (Inactive) Z86.718 History of pulmonary embolism (Inactive) Z86.711 Ischemic ulcer of right foot (Inactive) L97.519 Methicillin resistant Staphylococcus aureus infection (Inactive) A49.02 Osteomyelitis of left lower extremity (Inactive) M86.9 Pain of amputation stump of left lower extremity (Inactive) T87.89, M79.605 Personal history of osteomyelitis (Inactive) Z87.39 SVT (supraventricular tachycardia) (Inactive) I47.1 had an ablation in the past Ulceration of below knee amputation stump (Inactive) T87.89, L97.809 Allergies Penicillins Allergy (Verified 11/29/19 19:47) Swelling adhesive tape Adverse Reaction (Verified 11/29/19 19:47) Rash oxycodone [From OxyContin] Adverse Reaction (Verified 11/29/19 19:47) Other it makes me go nuts Home Medications: Ambulatory Orders Medication Instructions Recorded albuterol sulfate 2.5 mg INHALATION Q6H PRN #75 ml 07/08/19 albuterol sulfate 90 mcg/actuation 1 - 2 puff INHALATION Q6H PRN #8.5 07/19/19 aerosol inhaler g enoxaparin 80 mg/0.8 mL 80 mg SC Q12H 10/22/19 subcutaneous syringe Aspirin [Aspirin, Baby] 81 mg PO DAILY@0800 11/07/19 Atorvastatin Calcium [Lipitor] 80 mg PO QHS 11/07/19 Carvedilol 12.5 mg PO BID 11/07/19 Furosemide [Lasix] 20 mg PO DAILY 11/07/19 Lisinopril 2.5 mg PO DAILY 11/07/19 Sertraline HCl [Zoloft] 50 mg PO QDAY 11/07/19 Tamsulosin HCl [Flomax] 0.4 mg PO DINNER 11/07/19 Ticagrelor [Brilinta] 90 mg PO BID 11/07/19 Nebulizer Accessories [Sidestream See Rx Instructions .ROUTE 11/09/19 Mask] .MEDSUPPLY gabapentin 800 mg tablet 800 mg PO BID tab 11/18/19 Surgical History: Surgical History (Last Reviewed 11/30/19 @ 04:[address] Nish Peace MD) History of coronary artery stent placement (Chronic) Z95.5 3.5 x 32 mm Synergy MR BRIDGER to pLAD 07/03/19 History of carotid endarterectomy (Chronic) Z98.890 04/22/19 at [facility] 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) Z89.512 at [facility] for severe PVD with non-healing wounds and recurrent infections LLE Revision done in 2018 History of cholecystectomy Z90.49 1998 History of surgical removal of testicle Z98.890, Z90.79 History of cardiac radiofrequency ablation (Inactive) Onset Date: ~02/25/13 Z98.890 PVC Ablation 02/25/13 @ [facility] History of left heart catheterization (LHC) (Inactive) Onset Date: ~09/14/16 Z98.890 Normal Coronaries....august 2016 at [facility] Surgical History: cholecystectomy, - - Left CEAy 04/22/2019 at [facility], Left [facility] for severe peripheral vascular disease with nonhealing wounds, cellulitis and osteomyelitis, Multiple stents in both lower extremities secondary to peripheral vascular disease, Multiple debridements of nonhealing wounds of the left lower extremity, Cardiac PCI x 1, cholecystectomy. Psychiatric History: Anxiety, Depression Lives: Spouse/ Significant Other Smoking Status: Former smoker - *Family History Maternal Family History: Family History (Last Reviewed 11/30/19 @ 04:[address] Nish Peace MD) Mother Diabetes CVA (cerebral vascular accident) Myocardial infarction Father Cancer Kidney disease History Items: Cancer, Diabetes, Heart Disease, Renal Disease Paternal Family History: Family History (Last Reviewed 11/30/19 @ 04:[address] Nish Peace MD) Mother Diabetes CVA (cerebral vascular accident) Myocardial infarction Father Cancer Kidney disease History Items: Cancer Review of Systems Constitutional: Denies: Chills, Fever, Weight Change HEENT: Denies: Head Aches, Sinus Congestion, Sinus Drainage Cardiovascular: Reports: Chest Pain. Denies: Palpitations Respiratory: Denies: Cough, Shortness of breath at rest, Sputum production Gastrointestinal: Reports: Nausea. Denies: Abdominal Pain, Vomiting Genitourinary: Denies: Dysuria Musculoskeletal: Reports: Back Pain, Shoulder Pain. Denies: Joint Pain, Joint Tenderness Skin: Denies: Rash, Wounds Neurological: Denies: Numbness, Tingling, Focal weakness Psychiatric: Denies: Anxiety, Depression, Homicidal Ideations, Suicidal Ideations Hematologic/ Lymphatic: Denies: Easy Bruising, Easy Bleeding VTE Information - Inpt Only VTE Present on Admission: No VTE Mechan Device Prophylaxis: SCD's VTE Pharm Prophylaxis ordered?: No Patient Problems: Active and Suspected Problems (Last Reviewed 11/30/19 @ 03:[address] Nish Peace MD) Visual disturbance (Acute) JUAN (acute kidney injury) (Acute) Hypotension (Acute) - Physical Exam Vitals/I&O's: Vital Signs Temp Pulse Resp BP Pulse Ox 98.1 F 82 13 88/59 L 99 11/29/19 19:44 11/29/19 22:10 11/29/19 22:10 11/29/19 22:10 11/29/19 22:10 Oxygen Delivery Method Room Air Weight: 67.132 kg Body Mass Index (BMI) 19.0 Finger Stick Blood Glucose 95 Intake and Output for Last 24 Hours 11/27/19 11/28/19 11/29/19 23:59 23:59 23:59 Intake Total 1000 / 1000 Balance 1000 / 1000 General: Alert, Oriented x3, Cooperative HEENT: Atraumatic, PERRLA, EOMI, Normocephalic Neck: Supple, No JVD, Negative Carotid Bruits Lungs: Clear to auscultation, Normal air movement Cardiovascular: Regular rate, No murmurs Abdomen: Bowel Sounds Present, Soft, Non Tender Extremities: No edema, Capillary Refill Less than 3 Seconds, - - Left below the knee amputation Skin: No rashes, No breakdown Musculoskeletal: No Tenderness to Palpation of Joints or Extremities Neurological: Cranial nerves II-XII grossly intact - Poor vision. Difficulty in counting fingers with individual eyes. Left eye is worse than right. Psych/Mental Status: Normal Affect, Appropriate Laboratory Results 11/29/19 20:20: WBC 10.7, RBC 4.07 L, Hgb 12.8 L, Hct 37.6 L, MCV 92.4, MCH 31.4, MCHC 34.0, RDW Std Deviation 54.6 H, RDW Coeff of Lawson 16.3 H, Plt Count 474 H, MPV 9.2, Immature Gran % (Auto) 0.400, Neut % (Auto) 41.9 L, Lymph % (Auto) 43.7 H, [place] % (Auto) 7.8, Eos % (Auto) 5.4 H, Baso % (Auto) 0.8, Absolute Neuts (auto) 4.5, Absolute Lymphs (auto) 4.66 H, Nucleated RBC % 0, Atypical Lymphocytes 1+, Platelet Estimate SLT INC 11/29/19 20:20: PT 13.1, INR 1.0, APTT 28.8 11/29/19 20:20: Sodium Pending, Potassium Pending, Chloride Pending, Carbon Dioxide Pending, Anion Gap Pending, BUN Pending, Creatinine Pending, Est GFR (MDRD) Af Amer Pending, Est GFR (MDRD) Non-Af Pending, BUN/Creatinine Ratio Pending, Glucose Pending, Calcium Pending, Troponin I Pending Current Medications Sodium Chloride () 1,000 mls @ 999 mls/hr IV .Q1H1M ONE Stop: 11/29/19 22:32 Last Admin: 11/29/19 21:41 Dose: 999 mls/hr Documented by: Assessment/Plan All Active Problems (Last Reviewed 11/30/19 @ 03:[address] Nish Peace MD) Visual disturbance (Acute) JUAN (acute kidney injury) (Acute) Chest pain (Acute) Anginal equivalent (Acute) Hypotension (Acute) The patient is a 54 year old M with a significant history of cardiac arrest; CAD status post LAD thrombectomy and drug-eluting stent; CKD; hypertension; hypercoagulable state with a PE and DVT; left below the knee amputation secondary to DVT; and congestive heart failure who presents to emergency department with excruciating episodic substernal sharp stabbing chest pain that radiated to his right jaw; is bilateral shoulder blades into his back. Chest pain Etiology is unclear at this time. Patient was emergently taken to the [facility] where cardiac catheterization showed patent LAD and nonobstructive coronaries. Case was discussed with cardiology who would evaluate the patient further for pericarditis. ESR, high-sensitivity CRP, and echocardiogram ordered by cardiology; follow. Per Cardiology hold home Lovenox until results of echocardiogram. Initial troponin was negative. Chest CT at emergency department showed healing sternal fracture unchanged cervical and coronary artery disease. Actual chest x-ray imaging was independently reviewed. No acute cardiopulmonary process noticed. JUAN Creatinine presentation was 1.94. Review of old records shows baseline creatini ne of around 1-1.24. BUN is 9. BUN over creatinine is 4.6. Gentle IV hydration. Avoid nephrotoxins. Hold home lisinopril. Trend BMP Hypokalemia Potassium presentation was 3.3. Forty milliequivalents of potassium ordered. Of note patient is at risk of hyperkalemia secondary to JUAN. Visual disturbance Patient reports baseline visual disturbance after 2 strokes. With worsening of his visual disturbance MRI ordered. Congestive heart failure Echocardiogram on 11/24/2016 showed ejection fraction of 30%. Coreg continued; parameters placed. Lasix held secondary to JUAN. Lisinopril held secondary to JUNA. Repeat echocardiogram in a.m. DVT prophylaxis SCD for now. Inpatient E&M: 34835 Init Hosp L3
[2019-11-29 22:20] LABS: Anion Gap 10 (5-15); BUN 9 mg/dL (7-18); BUN/Creat Ratio 4.6 RATIO (10-20); Calcium,Total 8.7 mg/dL (8.5-10.1); Chloride 99 mmol/L (98-107); Creatinine, Serum 1.94 mg/dL (0.70-1.30); EST Glomerular Filtration Rate 39 mL/min (>60); Est Glom Filt Rate - Afr Amer 47 mL/min (>60); Estimated Creatinine Clearance 41.33 ml/min; Glucose 84 mg/dL (74-106); Potassium 3.3 mmol/L (3.5-5.1); Sodium Level 133 mmol/L (136-145)
[2019-11-29 23:30] LABS: ACT Activated Clotting Time 158 sec (74-137)
--- NOTE | 2019-11-29 23:39 | CL.D_ITS ---
Patient Name: JANIE CHIN Study Date: 11/29/2019 Performing: José Miguel Colunga MD Ht: 74.01 inches 188 cm : 1965 Wt: 147.71 lbs 67 kg Age: 54 Gender: male BSA: 1.91 PROCEDURE(S) PERFORMED [facility]90-TAX/[facility] CLINICAL PROFILE AND INDICATIONS Indications: ACS <= 24 hrs, Stable Known CAD, LV Dysfunction Heart Failure: NYHA Class: 1, Newly Diagnosed: No, Heart Failure Type: Systolic Stress/Imaging Date: 11/25/2019Stress Test with SPECT MPI: Indeterminant Angina Classification Anginal Classification w/in 2 Weeks: CCS IV CAD Presentations: Unstable angina. Comorbidities/Risk Factors: Hypertension Dyslipidemia Prior ME Prior PCI Peripheral Arterial Disease CONCLUSIONS Widely patent LAD stent Non obstructive coronary arteries PT HAS NO RETROGRADE BILATERAL FEMORAL ARTERY ACCESS. ALSO HAS VERY WEAK RIGHT RADIAL PULSE. ACCESS GAINED VIA R BRACHIAL WITHOUT DIFFICULTY. No LV gram done due to previous LV apical thrombus and concern for recent CVA and IV contrast dye abebe d. RECOMMENDATIONS Management as per referring [facility] Eval for pericarditis. Manual sheath removal. DESCRIPTION OF PROCEDURE The patient arrived to the procedure lab. The risks and benefits of the procedure as well as a full d escription of our services here and current unavailability of surgical backup were fully explained to the patient and/or their significant other prior to the catheterization. The Timeout was completed, verifying the correct patient and procedure. The patient's procedural site was prepped and draped in the usual fashion. Local anesthetic was given subcutaneously to right groin region with Lidocaine 2%. Local anesthetic was given subcutaneously to left groin region with Lidocaine 2%. Local anesthetic w as given subcutaneously to right radial region with Lidocaine 2%. Using a modified Seldinger techniqu e, arterial access was obtained via the right brachial artery, a 6Fr sheath was inserted. Left Coron brandan Artery selective angiography was performed in multiple views using a 4 Fr. JL4 catheter. Right Co ronary Artery selective angiography was then performed in multiple views using a 4 Fr. 3DRC catheter. Right Coronary Artery selective angiography was then performed in multiple views using a 4 Fr. JR4 catheter.Contrast was injected through the sheath and the Right Iliac and Femoral artery were assessed for possible closure device.The arterial sheath was pulled and manual compression appl ied until hemostasis is achieved. CORONARY ANGIOGRAPHY DOMINANCE: Right Dominant LEFT HEART ASSESSMENT Left Ventricular Ejection Fraction: Not assessed LEFT MAIN: Angiographically normal LEFT ANTERIOR DESCENDING ARTERY: PROX LAD: Previously placed stent is patent CIRCUMFLEX ARTERY: PROX CIRC: Angiographically normal MID CIRC: Non-obstructive RIGHT CORONARY ARTERY: Angiographically normal PERIPHERAL FINDINGS: Right Common Femoral Artery 100 % Stenosis COMPLICATIONS No Complications PROCEDURE MEDICATIONS Oxygen: 2 L/min via nasal cannula Heparin diluted in 23cc Heparinized saline. Patient given 10cc IA of this solution. 11/29/2019 23:09:0 4 Verapamil 2.5mg, Ntg 100mcgs, 2000 units of Heparin diluted in 23cc Heparinized saline. Patient give n 10cc IA of this solution. 11/29/2019 23:09:04 SUMMARY OF HEMODYNAMIC DATA Time AIR REST ECG 22:26:04 AO 86/62 (71) SA 23:14:24 Signed By José Miguel Colunga MD On 11/29/2019 23:38:17 José Miguel Colunga MD
[2019-11-30] VITALS (23 sets, daily range): BP systolic 113–159; BP diastolic 66–92; PULSE 68–90; RESP 11–19; TEMP 36.7–37.1; O2SAT 98–100
--- NOTE | 2019-11-30 00:29 | ECHOL_ITS ---
Reason For Study: R/O pericardial effusion, chest pain Procedure This was a limited 2D transthoracic echocardiogram. Patient scanned supine due to recent heart cath. Exam performed portable in ICU/CCU. Left Ventricle Mildly dilated left ventricle. The estimated ejection fraction is 30 %. Septal motion consistent with IVCD. Basal anteroseptal: Severely Hypokinetic. Mid-Anterior : Severely Hypokinetic. Mid- anteroseptal : Severely Hypokinetic. Right Ventricle Normal size and thickness. Normal systolic function. Atria Normal left atrium. Normal right atrium. Normal atrial septum. Mitral Valve The mitral valve is structurally normal. No prolapse or stenosis seen. Tricuspid Valve Normal tricuspid valve. Unable to estimate RV systolic pressure due to insufficient tricuspid regurgitant envelope. Aortic Valve Normal aortic valve. Trisinus/trileaflet aortic valve. Pulmonic Valve Normal pulmonic valve. Great Vessels Normal aortic root. Normal arch. The inferior vena cava is dilated. Pericardium/Pleural No pericardial effusion. MMode/2D Measurements & Calculations LVIDd: 5.2 cm IVSd: 1.2 cm Ao root diam: 3.2 cm LVIDs: 3.8 cm LVPWd: 1.2 cm FS: 26.1 % LA dimension(2D): 2.7 cm Interpretation Summary Mildly dilated left ventricle. The estimated ejection fraction is 30 %. Basal anteroseptal: Severely Hypokinetic. Mid-Anterior : Severely Hypokinetic. Mid-anteroseptal : Severely Hypokinetic. Comparison echo report dated 11/25/2019, no appreciable changes have occurred. The study was technically limited. Ordering Physician: José Miguel Colunga Referring Physician: Nish Peace Performed By: Nadeen Kirby RDCS
[2019-11-30 01:22] LABS: Erythrocyte Sedimentation Rate 4 mm/hr (0-20)
[2019-11-30] MEDS: 0.9% Normal Saline 1,000 ML 100 ML IV (02:17)
[2019-11-30 03:05] LABS: CRP, High Sensitivity Cardiac 0.59 mg/L
[2019-11-30] MEDS: Acetaminophen 325 MG Tablet 650 MG PO (03:57)
--- NOTE | 2019-11-30 04:09 | EKG12_ITS ---
Test Reason : POST CATH Blood Pressure : / mmHG Vent. Rate : 082 BPM Atrial Rate : 082 BPM P-R Int : 178 ms QRS Dur : 166 ms QT Int : 468 ms P-R-T Axes : 058 -23 119 degrees QTc Int : 546 ms Normal sinus rhythm Left bundle branch block Abnormal ECG When compared with ECG of 29-NOV-2019 21:45, No significant change was found Confirmed by JIN BUSH, MAHSA ([id number]), supervising editor news reel PAULA PERKINS ([id number]) on 12/09/2019 1:23:27 PM Referred By: Nish Peace Confirmed By:MAHSA ABDI MD
[2019-11-30 04:21] LABS: Anion Gap 8 (5-15); BUN 9 mg/dL (7-18); BUN/Creat Ratio 6.3 RATIO (10-20); Calcium,Total 7.6 mg/dL (8.5-10.1); Chloride 103 mmol/L (98-107); Creatinine, Serum 1.43 mg/dL (0.70-1.30); EST Glomerular Filtration Rate 55 mL/min (>60); Est Glom Filt Rate - Afr Amer 66 mL/min (>60); Estimated Creatinine Clearance 68.66 ml/min; Glucose 92 mg/dL (74-106); Potassium 3.8 mmol/L (3.5-5.1); Sodium Level 136 mmol/L (136-145)
[2019-11-30 04:28] LABS: Absolute Lymphocyte Count 3.19 X10^3/uL (0.83-4.51); Absolute Neutrophil Count 5.1 X10^3/uL (2.0-7.7); Basophil# 0.07 X10^3/uL; Basophil% 0.7 % (0-1); Eosinophil# 0.52 X10^3/uL; Eosinophils% 5.3 % (0-5); Hematocrit 32.3 % (40-54); Hemoglobin 10.6 g/dL (13.0-16.5); Lymphocyte # 3.19 X10^3/ul (4.0); Lymphocyte % 32.5 % (19-41); Mean Corp Hgb Conc 32.8 g/dL (32-36); Mean Corpuscular Hgb 30.8 pg (27.0-32.0); Mean Corpuscular Volume 93.9 fL (80-94); Mean Platelet Vol. 9.2 fl (6.2-12.0); Monocyte# 0.94 X10^3/uL; Monocyte% 9.6 % (0-10); NRBC Flagged by Analyzer 0 % (0-5); Neutrophil # 5.07 X10^3/uL (2.7-7.7); Neutrophil % 51.6 % (47-70); Platelet Count 402 K/mm3 (150-450); RBC Distribution Width CV 16.5 % (11.6-14.6); RBC Distribution Width SD 56.4 fl (35.1-43.9); Red Blood Count 3.44 M/mm3 (4.6-6.2); White Blood Count 9.8 K/mm3 (4.4-11.0)
[2019-11-30] MEDS: Carvedilol 12.5 MG Tablet PO ×2 (08:04→21:51)
[2019-11-30] MEDS: Aspirin 81 MG TAB.CHEW PO (08:04)
[2019-11-30] MEDS: Gabapentin 800 MG Tablet PO ×2 (08:04→21:51)
[2019-11-30] MEDS: Sertraline 50 MG Tablet PO (08:05)
--- NOTE | 2019-11-30 10:53 | PCM.PN.CARD ---
Subjectve: Patient laying in bed, no acute distress. Telemetry showed normal sinus rhythm. Patient denies any chest pain. Echocardiogram is in progress with results pending. CRP is within normal limits. Objective: Vital Signs Temp Pulse Resp BP Pulse Ox 98.6 F 77 13 133/80 H 99 11/30/19 08:00 11/30/19 09:00 11/30/19 09:00 11/30/19 09:00 11/30/19 09:00 Oxygen Flow Rate (L/min) 2 Oxygen Delivery Method Nasal Cannula Weight: 182 lb 1.629 oz Body Mass Index (BMI) 23.3 Finger Stick Blood Glucose 95 Intake and Output for Last 24 Hours 11/28/19 11/29/19 11/30/19 23:59 23:59 23:59 Intake Total 1000 / 1000 1120 / 1120 Output Total 950 / 950 Balance 1000 / 1000 170 / 170 General: Awake, Alert, Oriented x 3 HEENT: PERRL, EOMI, Sclera Non Icteric Neck: Supple, Good ROM, No Lymph Node Enlargement Lungs: Clear to auscultation Cardiovascular: Regular Rhythm, Normal S1, Normal S2, No Murmurs, No Rubs, No Gallops Vascular: No Carotid Bruits, Normal Femoral Pulses, Normal Radial Pulses, Normal Dorsalis Pedal Pulse, Normal Posterior Tibial Pulses Abdomen: Bowel Sounds Present, Soft, Non Tender, No HSM, No Organomegaly Extremities: No Cyanosis, No Clubbing, No edema Neurological: No Focal Motor or Sensory Deficit 11/29/19 20:20: WBC 10.7, RBC 4.07 L, Hgb 12.8 L, Hct 37.6 L, MCV 92.4, MCH 31.4, MCHC 34.0, Plt Count 474 H, MPV 9.2, Immature Gran % (Auto) 0.400, Neut % (Auto) 41.9 L, Lymph % (Auto) 43.7 H, [place] % (Auto) 7.8, Eos % (Auto) 5.4 H, Baso % (Auto) 0.8, Absolute Neuts (auto) 4.5, Nucleated RBC % 0 11/29/19 20:20: PT 13.1, INR 1.0, APTT 28.8 11/29/19 20:20: Sodium 133 L, Potassium 3.3 L, Chloride 99, Carbon Dioxide 24.0, Anion Gap 10, BUN 9, Creatinine 1.94 H, Est GFR (MDRD) Af Amer 47 L, Est GFR (MDRD) Non-Af 39 L, BUN/Creatinine Ratio 4.6 L, Glucose 84, Calcium 8.7, Troponin I < 0.015 11/30/19 00:40: Troponin I < 0.015 11/30/19 03:40: Sodium 136, Potassium 3.8, Chloride 103, Carbon Dioxide 25.0, Anion Gap 8, BUN 9, Creatinine 1.43 H, Est GFR (MDRD) Af Amer 66, Est GFR (MDRD) Non-Af 55 L, BUN/Creatinine Ratio 6.3 L, Glucose 92, Calcium 7.6 L 11/30/19 03:40: Troponin I < 0.015 11/30/19 04:00: WBC 9.8, RBC 3.44 L, Hgb 10.6 L, Hct 32.3 L, MCV 93.9, MCH 30.8, MCHC 32.8, Plt Count 402, MPV 9.2, Immature Gran % (Auto) 0.300, Neut % (Auto) 51.6, Lymph % (Auto) 32.5, [place] % (Auto) 9.6, Eos % (Auto) 5.3 H, Baso % (Auto) 0.7, Absolute Neuts (auto) 5.1, Nucleated RBC % 0 11/30/19 06:40: Troponin I < 0.015 Rhythm: EKG: ECHO: Stress Test: Cardiac Cath: PCI: CT Surgery: Holter monitor: EPS: PPM: CXR: Chest CT Scan: Medical Necessity - Tobacco Use Smoking Status: Former smoker Assessment/Plan 1. Ischemic cardiomyopathy: Patient has known ischemic cardiomyopathy status post acute anterior wall myocardial infarction requiring emergent angioplasty and stenting via the right brachial approach in June 2019. Patient returned yesterday with severe chest pain, back pain, hypotension, and required urgent left heart catheterization after preliminary CT of his chest was negative for pulmonary embolism as well as dissection. This again was done via the right brachial approach, and found that his LAD stent was widely patent. His left circumflex and RCA were within normal limits with minimal nonobstructive disease. No LV gram was performed out of concern for his previously diagnosed LV apical thrombus and recent possible CVA. Patient no longer has a gallbladder, and his symptoms may be either GI related such as reflux disease or arrhythmia related. The patient was scheduled to undergo AICD evaluation at [facility] this Monday with an initial visit. Patient had a Holter done after his angioplasty which was negative for ventricular arrhythmias. This may also explain the patient's cerebral symptoms with visual disturbances in both eyes, lightheadedness, and hypotension. At this point would recommend keeping the potassium above 4.0 and magnesium above 2.0. Recommend continuing aspirin and Brilinta. In addition he will continue Coreg 12.5 mg p.o. twice daily. I would recommend keeping the patient here 1 more day. If he has any ventricular arrhythmias, I would have a low threshold for the patient to be placed on a LifeVest until he gets his AICD. Unfortunately this may require him to stay until Monday. 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 2. Continue PPI therapy. 3. Hyperlipidemia: Continue Lipitor therapy. 4. Thank you very much for the opportunity to participate in the cardiac care of your patient. If the patient has no ventricular arrhythmias overnight, he may be discharged home tomorrow, Monday. Inpatient E&M: [id number] [facility] Hosp L2
--- NOTE | 2019-11-30 11:12 | PCM.PROGNOTE ---
Subjective: Chief complaint: Follow-up after admission for unstable angina. Patient seen and examined. No acute events overnight. Today, he denied chest pain. Denies significant shortness of breath. His blood pressure improved, has been afebrile, heart rate stable. Pulse ox is 99% on 2 L. - Physical Exam Vitals/I&O's: Vital Signs Temp Pulse Resp BP Pulse Ox 98.6 F 77 13 133/80 H 99 11/30/19 08:00 11/30/19 09:00 11/30/19 09:00 11/30/19 09:00 11/30/19 09:00 Oxygen Flow Rate (L/min) 2 Oxygen Delivery Method Nasal Cannula Weight: 182 lb 1.629 oz Body Mass Index (BMI) 23.3 Finger Stick Blood Glucose 95 Intake and Output for Last 24 Hours 11/28/19 11/29/19 11/30/19 23:59 23:59 23:59 Intake Total 1000 / 1000 1120 / 1120 Output Total 950 / 950 Balance 1000 / 1000 170 / 170 General: Alert, Oriented x3, Cooperative, No apparent distress HEENT: Atraumatic, PERRLA, EOMI, Normocephalic Oral: Moist Mucosa, No Gingival or Mucosal Lesions/ Ulcerations Neck: Supple, No JVD, Negative Carotid Bruits, Trachea Midline, Thyroid Normal Size and Texture Lungs: Clear to auscultation, Normal air movement, No rhonchi, No wheeze, No rales, Diminished Cardiovascular: Regular rate, Regular Rhythm, Normal S1, Normal S2, PMI Normal Abdomen: Bowel Sounds Present, Soft, Non Tender, Non-Distended, No Hepato-splenomegaly Extremities: No clubbing, No cyanosis, No edema, - - Status below left knee amputation. Lymphatic: No Cervical, Supraclavicular, or Inguinal Adenopathy Neurological: Cranial nerves II-XII grossly intact, Neuro grossly intact Psych/Mental Status: Normal Affect, Appropriate, Alert and oriented to time, place, person, mood and affect Laboratory Results 11/29/19 20:20: WBC 10.7, RBC 4.07 L, Hgb 12.8 L, Hct 37.6 L, MCV 92.4, MCH 31.4, MCHC 34.0, RDW Std Deviation 54.6 H, RDW Coeff of Lawson 16.3 H, Plt Count 474 H, MPV 9.2, Immature Gran % (Auto) 0.400, Neut % (Auto) 41.9 L, Lymph % (Auto) 43.7 H, [place] % (Auto) 7.8, Eos % (Auto) 5.4 H, Baso % (Auto) 0.8, Absolute Neuts (auto) 4.5, Absolute Lymphs (auto) 4.66 H, Nucleated RBC % 0, Atypical Lymphocytes 1+, Platelet Estimate SLT INC 11/29/19 20:20: PT 13.1, INR 1.0, APTT 28.8 11/29/19 20:20: Sodium 133 L, Potassium 3.3 L, Chloride 99, Carbon Dioxide 24.0, Anion Gap 10, BUN 9, Creatinine 1.94 H, Estim Creat Clear Calc 41.33, Est GFR (MDRD) Af Amer 47 L, Est GFR (MDRD) Non-Af 39 L, BUN/Creatinine Ratio 4.6 L, Glucose 84, Calcium 8.7, Troponin I < 0.015 11/29/19 23:20: Activated Clotting Time 158 H 11/30/19 00:40: ESR 4 11/30/19 00:40: C-React Prot High Sens 0.59 11/30/19 00:40: Troponin I < 0.015 11/30/19 03:40: Sodium 136, Potassium 3.8, Chloride 103, Carbon Dioxide 25.0, Anion Gap 8, BUN 9, Creatinine 1.43 H, Estim Creat Clear Calc 68.66, Est GFR (MDRD) Af Amer 66, Est GFR (MDRD) Non-Af 55 L, BUN/Creatinine Ratio 6.3 L, Glucose 92, Calcium 7.6 L 11/30/19 03:40: Troponin I < 0.015 11/30/19 04:00: WBC 9.8, RBC 3.44 L, Hgb 10.6 L, Hct 32.3 L, MCV 93.9, MCH 30.8, MCHC 32.8, RDW Std Deviation 56.4 H, RDW Coeff of Lawson 16.5 H, Plt Count 402, MPV 9.2, Immature Gran % (Auto) 0.300, Neut % (Auto) 51.6, Lymph % (Auto) 32.5, [place] % (Auto) 9.6, Eos % (Auto) 5.3 H, Baso % (Auto) 0.7, Absolute Neuts (auto) 5.1, Absolute Lymphs (auto) 3.19, Nucleated RBC % 0 11/30/19 06:40: Troponin I < 0.015 Clinical Impression(s) from Imaging Studies Chest X-Ray 11/29/19 20:13 IMPRESSION: Normal x-ray examination of the chest. Electronically Signed: Marvin Evangelista MD at 20:25 EDT , Service support , Chest CTA 11/29/19 20:23 IMPRESSION: Healing sternal fracture unchanged. Coronary artery disease. Electronically Signed: Marvin Evangelista MD at 21:10 EDT , Service support , Current Medications Acetaminophen (Tylenol) 650 mg PO Q6H PRN PRN PRN Reason: Pain Score 1-10/Temp > 100.7 F Last Admin: 11/30/19 03:57 Dose: 650 mg Documented by: Albuterol Sulfate (Ventolin Aerosols) 2.5 mg INHALATION Q2H PRN PRN PRN Reason: sob/wheezing Aspirin (Aspirin, Baby) 81 mg PO DAILY@0800 [facility] Last Admin: 11/30/19 08:04 Dose: 81 mg Documented by: Atorvastatin Calcium (Lipitor) 80 mg PO QHS [facility] Carvedilol (Coreg) 12.5 mg PO BID [facility] Last Admin: 11/30/19 08:04 Dose: 12.5 mg Documented by: Dextrose (D50w Syringe) 0 gm IV X1 PRN; Protocol PRN Reason: Hypoglycemia Gabapentin (Neurontin) 800 mg PO BID [facility] Last Admin: 11/30/19 08:04 Dose: 800 mg Documented by: Glucagon () 1 mg IM .X1 PRN PRN Reason: Hypoglycemia Heparin Sodium (Beef Lung) (Heparin 500 Unit/5 Ml (100/Ml)) 500 unit IV UD PRN PRN Reason: HEPARIN FLUSH Sodium Chloride () 250 mls @ 15 mls/hr IV .[id number] PRN PRN Reason: Saline Flush Sodium Chloride () 250 mls @ 15 mls/hr IV .[id number] PRN PRN Reason: Additional IVPB Infusion Sodium Chloride () 1,000 mls @ 100 mls/hr IV .Q10H [facility] Stop: 11/30/19 11:29 Last Admin: 11/30/19 02:17 Dose: 100 mls/hr Documented by: Labetalol HCl (Trandate) 5 mg IV X1 PRN PRN Reason: SBP > 160 prior to sheath pull Morphine Sulfate () 2 mg IV Q3H PRN PRN PRN Reason: Pain Score 6-10/10 Nitroglycerin (Nitrostat) 0.4 mg SUBLINGUAL Q5M PRN PRN Reason: CARDIAC/CHEST PAIN Ondansetron HCl (Zofran) 4 mg IV Q8H PRN PRN PRN Reason: NAUSEA/VOMITING Pantoprazole Sodium (Protonix) 40 mg PO DAILY [facility] Sertraline HCl (Zoloft) 50 mg PO DAILY [facility] Last Admin: 11/30/19 08:05 Dose: 50 mg Documented by: Sodium Chloride () 10 - 40 ml IV UD PRN PRN Reason: SALINE FLUSH Tamsulosin HCl (Flomax) 0.4 mg PO DINNER ERIKA Ticagrelor (Brilinta) 90 mg PO BID [facility] Medical Necessity - Tobacco Use Smoking Status: Former smoker Assessment/Plan This is a 54 years old male patient presented to the emergency room because of chest pain, was diagnosed with unstable angina, underwent emergent cardiac catheterization, was hypotensive initially which was improved. #1 chest pain/unstable angina: Status post emergent cardiac catheterization done yesterday, revealed widely patent LAD stent, nonobstructive CAD. Troponin is negative x3. There was a concern that he may have pericarditis. ESR and CRP was normal. Patient is on aspirin, statins, Coreg and Brilinta. Cardiology on the case. 2D echocardiogram done, awaiting results. Repeat CBC and BMP from today reviewed, potassium was replaced and corrected, serum creatinine improving. His symptoms could be due to GERD versus cardiac arrhythmias. Patient is scheduled to undergo AICD evaluation at [facility] this coming Monday. Plan to continue same treatment, start Protonix, close monitoring. #2 transient hypotension: Upon arrival to ED yesterday, blood pressure was in the 80s systolic. Today blood pressure improved, it is up to 120 systolic. He is on Coreg. Plan to monitor. #3 visual changes: Resolved today. Patient stated that he had vision change yesterday, he has been seen bright light around objects but was on both eyes. He denied other symptoms such as slurred speech, numbness, tingling, focal arm or leg weakness. Today, vision changes resolved. This can be explained by the hypotension that he had yesterday. I do not think patient will need MRI at this time. #4 CAD status post CABG and stents: Plan as above, continue aspirin, statins, Coreg, Brilinta, lisinopril. Awaiting 2D echocardiogram. #5 cardiomyopathy/chronic systolic CHF: Clinically stable, compensated. As mentioned above, he supposed to go for ICD placement at [facility]. Currently, he is on Coreg, Lasix and lisinopril held because of low blood pressure which improved. #6 paroxysmal atrial fibrillation: Rate is controlled, continue Coreg for rate control. Therapeutic Lovenox held. #7 hypertension: Blood pressure stabilized, continue current medications. #8 peripheral vascular disease: Status post below left knee amputation. Stable, no acute issues. Continue aspirin, statins and Brilinta. #9 history of CVA: Stable, continue aspirin, statins and Brilinta. #10 stage III chronic kidney disease: I doubt acute kidney injury. Baseline creatinine has been around 1.3 to 1.7 mg/dL. Today's creatinine 1.43, it was 1.94 yesterday which is slightly above his baseline. Kidney function is improving. #11 DVT prophylaxis: Currently not on DVT prophylaxis given questionable pericardial effusion. This note was generated with [employer] dictation software. It may contain incorrect words, spelling, and punctuation that were not noted in checking the note before signing. Inpatient E&M: [id number] Subs Hosp L2
[2019-11-30] MEDS: Pantoprazole Sodium 40 MG Tablet PO (11:47)
[2019-11-30] MEDS: Tamsulosin HCl 0.4 MG Capsule PO (17:53)
[2019-11-30] MEDS: TICAGRELOR 90 MG TABLET PO (21:51)
[2019-11-30] MEDS: Atorvastatin Calcium 80 MG Tablet PO (21:51)
[2019-12-01] VITALS (8 sets, daily range): BP systolic 125–138; BP diastolic 63–89; PULSE 52–79; RESP 18; TEMP 36.3–37.1; O2SAT 94–99
[2019-12-01] MEDS: Aspirin 81 MG TAB.CHEW PO (08:11)
[2019-12-01] MEDS: Furosemide 20 MG Tablet PO (09:40)
[2019-12-01] MEDS: Carvedilol 12.5 MG Tablet PO (09:40)
[2019-12-01] MEDS: Pantoprazole Sodium 40 MG Tablet PO (09:40)
[2019-12-01] MEDS: TICAGRELOR 90 MG TABLET PO (09:40)
[2019-12-01] MEDS: Gabapentin 800 MG Tablet PO (09:40)
[2019-12-01] MEDS: Lisinopril 2.5 MG Tablet PO (09:40)
[2019-12-01] MEDS: Sertraline 50 MG Tablet PO (09:40)
--- NOTE | 2019-12-01 10:17 | PCM.PN.CARD ---
Subjectve: Patient doing well, no 24-hour events. Telemetry shows normal sinus rhythm, no ventricular arrhythmias. Objective: Vital Signs Temp Pulse Resp BP Pulse Ox 98.4 F 74 18 127/63 H 99 12/01/19 09:35 12/01/19 09:35 12/01/19 09:35 12/01/19 09:35 12/01/19 09:35 Oxygen Flow Rate (L/min) 2 Oxygen Delivery Method Room Air Weight: 180 lb 5.41 oz Body Mass Index (BMI) 23.3 Finger Stick Blood Glucose 95 Intake and Output for Last 24 Hours 11/29/19 11/30/19 12/01/19 23:59 23:59 23:59 Intake Total 1000 / 1000 2511.67 / 2751.67 360 / 360 Output Total 950 / 1150 425 / 425 Balance 1000 / 1000 1561.67 / 1601.67 -65 / -65 General: Awake, Alert, Oriented x 3 HEENT: PERRL, EOMI, Sclera Non Icteric Neck: Supple, Good ROM, No Lymph Node Enlargement Lungs: Clear to auscultation Cardiovascular: Regular Rhythm, Normal S1, Normal S2, No Murmurs, No Rubs, No Gallops Vascular: No Carotid Bruits, Normal Femoral Pulses, Normal Radial Pulses, Normal Dorsalis Pedal Pulse, Normal Posterior Tibial Pulses Abdomen: Bowel Sounds Present, Soft, Non Tender, No HSM, No Organomegaly Extremities: No Cyanosis, No Clubbing, No edema Neurological: No Focal Motor or Sensory Deficit Rhythm: EKG: ECHO: Stress Test: Cardiac Cath: PCI: CT Surgery: Holter monitor: EPS: PPM: CXR: Chest CT Scan: Medical Necessity - Tobacco Use Smoking Status: Former smoker Assessment/Plan 1. Ischemic cardiomyopathy: Patient has known ischemic cardiomyopathy status post acute anterior wall myocardial infarction requiring emergent angioplasty and stenting via the right brachial approach in June 2019. Patient returned yesterday with severe chest pain, back pain, hypotension, and required urgent left heart catheterization after preliminary CT of his chest was negative for pulmonary embolism as well as dissection. This again was done via the right brachial approach, and found that his LAD stent was widely patent. His left circumflex and RCA were within normal limits with minimal nonobstructive disease. No LV gram was performed out of concern for his previously diagnosed LV apical thrombus and recent possible CVA. Patient no longer has a gallbladder, and his symptoms may be either GI related such as reflux disease or arrhythmia related. The patient was scheduled to undergo AICD evaluation at [facility] this Monday with an initial visit. Patient had a Holter done after his angioplasty which was negative for ventricular arrhythmias. This may also explain the patient's cerebral symptoms with visual disturbances in both eyes, lightheadedness, and hypotension. At this point would recommend keeping the potassium above 4.0 and magnesium above 2.0. Recommend continuing aspirin and Brilinta. In addition he will continue Coreg 12.5 mg p.o. twice daily. As the patient has had no ventricular arrhythmias since admission, I believe he may be discharged home with the assurance that he is going to follow-up with EP at [facility] this coming Monday. I reinforced to him that this is very important and he agreed to do so. Do not believe he requires amiodarone therapy at this time or Holter monitor. His previous Holter monitor showed no overt ventricular arrhythmias. I do however believe the patient does require an AICD as his LV function has remained poor since his initial anterior wall myocardial infarction. 2. Continue PPI therapy. 3. Hyperlipidemia: Continue Lipitor therapy. 4. Thank you very much for the opportunity to participate in the cardiac care of your patient. Patient may be discharged home and follow-up with Dr. Daniel Mitchell. Inpatient E&M: [id number] [facility] Hosp L2
--- NOTE | 2019-12-01 10:46 | DCINST_ITS ---
- Discharge Diagnoses Current Active Problems: Current Active and Chronic Problems (Last Reviewed 11/30/19 @ 04:[address] Nish Peace MD) LBBB (left bundle branch block) (Chronic) You will use the following diet at home:: Cardiac Your food should be the consistency of: Regular Discharge Activity: Return to Normal Activity Weight Bearing Status: Weight bearing as tolerated Call your doctor if you observe: Fever of 101 or Higher, Shortness of breath, Dizziness, Fainting spells, Chest pain, Increased palpitations (irregular heartbeat), Uncontrolled pain Additional Instructions: Follow-up with your filtration operator at [facility] this coming Monday for evaluation for AICD placement. Allergies/Adverse Reactions: Allergies Penicillins Allergy (Verified 11/29/19 19:47) Swelling adhesive tape Adverse Reaction (Verified 11/29/19 19:47) Rash oxycodone [From OxyContin] Adverse Reaction (Verified 11/29/19 19:47) Other it makes me go nuts Medications to take at Discharge albuterol sulfate 2.5 mg INHALATION Q6H PRN #75 ml 07/08/19 albuterol sulfate 90 mcg/actuation aerosol inhaler 1 - 2 puff INHALATION Q6H PRN #8.5 g 07/19/19 enoxaparin 80 mg/0.8 mL subcutaneous syringe 80 mg SC Q12H 10/22/19 Aspirin [Aspirin, Baby] 81 mg PO DAILY@0800 11/07/19 Atorvastatin Calcium [Lipitor] 80 mg PO QHS 11/07/19 Carvedilol 12.5 mg PO BID 11/07/19 Furosemide [Lasix] 20 mg PO DAILY 11/07/19 Lisinopril 2.5 mg PO DAILY 11/07/19 Sertraline HCl [Zoloft] 50 mg PO QDAY 11/07/19 Tamsulosin HCl [Flomax] 0.4 mg PO DINNER 11/07/19 Ticagrelor [Brilinta] 90 mg PO BID 11/07/19 Nebulizer Accessories [Sidestream Mask] See Rx Instructions .ROUTE .MEDSUPPLY 11/09/19 gabapentin 800 mg tablet 800 mg PO BID tab 11/18/19 Primary Care Physician: Dharmesh Alonso MD [Primary Care Provider] - Please follow up with your Primary Care Physician in: 1 WEEK. Test Results: Test results from this visit will be discussed in further detail at your follow- up appointment, if applicable.
--- NOTE | 2019-12-01 10:48 | PCM.DC.SUM ---
Discharge Date and Diagnosis Date of Admission: 11/29/19 Date of Discharge: 12/01/19 - Primary Discharge Diagnosis Acute Problems: #1 chest pain/unstable angina, status post cardiac catheterization. #2 hypotension, resolved. #3 visual changes, resolved, acute stroke unlikely. #4 CAD status post CABG and stents. #5 chronic systolic CHF/cardiomyopathy. #6 stage III chronic kidney disease, kidney function was stable at baseline. - Secondary Discharge Diagnosis Chronic Problems: Chronic Problems (Last Reviewed 11/30/19 @ 04:[address] Nish Peace MD) CAD in [place] artery (Chronic) Paroxysmal atrial fibrillation (Chronic) HLD (hyperlipidemia) (Chronic) Acute CVA (cerebrovascular accident) (Chronic) History of coronary artery stent placement (Chronic) 3.5 x 32 mm Synergy MR BRIDGER to pLAD 07/03/19 Atherosclerosis of coronary artery of [place] heart without angina pectoris (Chronic) CHF (congestive heart failure) (Chronic) History of sudden cardiac arrest successfully resuscitated (Chronic) Chronic renal failure, stage 2 (mild) (Chronic) Depression (Chronic) History of carotid endarterectomy (Chronic) 04/22/19 at [facility] History of ischemic left MCA stroke (Chronic) 04/17/19 Debility (Chronic) due to L MCA stroke 04/17/19 Normochromic normocytic anemia (Chronic) LBBB (left bundle branch block) (Chronic) Dilated cardiomyopathy (Chronic) 27% EF on ECHO 02/18/19........non-ischemic. 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 Electronically Signed: Marvin Evangelista MD at 20:25 EDT , Service support , Chest CTA 11/29/19 20:23 IMPRESSION: Healing sternal fracture unchanged. Coronary artery disease. Electronically Signed: Marvin Evangelista MD at 21:10 EDT , Service support , Dr. Colunga, cardiology. Operations: None Procedures: 2-D Echocardiogram, Cardiac catheterization, EKG Summary of Care Provided: Patient seen and examined on the day of discharge and appeared to be stable to be discharged home. He denied any more chest pain or shortness of breath. Blood pressure stabilized. On the day of discharge, patient received his regular doses of Lasix, Coreg and lisinopril and his blood pressure remained stable. The patient is a 54 year old M presented to the emergency room because of chest pain and was admitted for unstable angina. He underwent emergent cardiac catheterization that revealed widely patent LAD stent, nonobstructive CAD. Troponin was negative x3. Initially, there was a concern that patient may have pericarditis. ESR and C-reactive protein was normal. Routine blood work was remarkable for potassium of 3.3, creatinine of 1.94 that came down to 1.43 which is chronic without exacerbation. Potassium was replaced and corrected. Upon arrival to the ED, patient was hypotensive and his blood pressure was in the 80s systolic. After admission, blood pressure improved. Patient complained of visual changes, complaint of bright light around the objects on both eyes. He stated this vision change is on both eyes and he did mention that he have chronic blurry vision secondary to history of strokes. He denied any other symptoms suggestive of stroke. During the time when the patient had a change, he was hypotensive and that can explain his vision changes. After admission and stabilization of his blood pressure, vision changes resolved. There was no evidence of cardiac arrhythmias on telemetry during this hospital stay. Patient symptoms resolved, he had no more chest pain. Blood pressure stabilized. On the day of discharge, patient was given his regular daily medications including Coreg, lisinopril and Lasix and his blood pressure remained stable. Patient discharged home in a stable medical condition, discharged on his previous home medications without any changes, started back on therapeutic Lovenox twice daily, highly recommended to follow-up with his cutter and edge trimmer at [facility] for evaluation for ICD placement and he has an appointment this coming Monday, recommended follow-up with PCP in 1 week. - Physical Exam Vitals/I&O's: Vital Signs Temp Pulse Resp BP Pulse Ox 98.7 F 75 18 125/75 H 98 12/01/19 10:40 12/01/19 10:40 12/01/19 10:40 12/01/19 10:40 12/01/19 10:40 Oxygen Flow Rate (L/min) 2 Oxygen Delivery Method Room Air Weight: 180 lb 5.41 oz Body Mass Index (BMI) 23.3 Finger Stick Blood Glucose 95 Intake and Output for Last 24 Hours 11/29/19 11/30/19 12/01/19 23:59 23:59 23:59 Intake Total 1000 / 1000 2511.67 / 2751.67 360 / 360 Output Total 950 / 1150 425 / 425 Balance 1000 / 1000 1561.67 / 1601.67 -65 / -65 General: Alert, Oriented x3, Cooperative, No apparent distress HEENT: Atraumatic, PERRLA, EOMI, Normocephalic Oral: Moist Mucosa, No Gingival or Mucosal Lesions/ Ulcerations Neck: Supple, No JVD, Negative Carotid Bruits, Trachea Midline, Thyroid Normal Size and Texture Lungs: Clear to auscultation, Normal air movement, No rhonchi, No wheeze, No rales, Diminished Cardiovascular: Regular rate, Regular Rhythm, Normal S1, Normal S2, PMI Normal Abdomen: Bowel Sounds Present, Soft, Non Tender, Non-Distended, No Hepato-splenomegaly Extremities: No clubbing, No cyanosis, No edema, - - Status below left knee amputation. Lymphatic: No Cervical, Supraclavicular, or Inguinal Adenopathy Neurological: Cranial nerves II-XII grossly intact, Neuro grossly intact Psych/Mental Status: Normal Affect, Appropriate Current Medications Acetaminophen (Tylenol) 650 mg PO Q6H PRN PRN PRN Reason: Pain Score 1-10/Temp > 100.7 F Last Admin: 11/30/19 03:57 Dose: 650 mg Documented by: Albuterol Sulfate (Ventolin Aerosols) 2.5 mg INHALATION Q2H PRN PRN PRN Reason: sob/wheezing Aspirin (Aspirin, Baby) 81 mg PO DAILY@0800 [facility] Last Admin: 12/01/19 08:11 Dose: 81 mg Documented by: Atorvastatin Calcium (Lipitor) 80 mg PO QHS [facility] Last Admin: 11/30/19 21:51 Dose: 80 mg Documented by: Carvedilol (Coreg) 12.5 mg PO BID [facility] Last Admin: 12/01/19 09:40 Dose: 12.5 mg Documented by: Dextrose (D50w Syringe) 0 gm IV X1 PRN; Protocol PRN Reason: Hypoglycemia Furosemide (Lasix) 20 mg PO DAILY [facility] Last Admin: 12/01/19 09:40 Dose: 20 mg Documented by: Gabapentin (Neurontin) 800 mg PO BID [facility] Last Admin: 12/01/19 09:40 Dose: 800 mg Documented by: Glucagon () 1 mg IM .X1 PRN PRN Reason: Hypoglycemia Heparin Sodium (Beef Lung) (Heparin 500 Unit/5 Ml (100/Ml)) 500 unit IV UD PRN PRN Reason: HEPARIN FLUSH Sodium Chloride () 250 mls @ 15 mls/hr IV .[id number] PRN PRN Reason: Saline Flush Sodium Chloride () 250 mls @ 15 mls/hr IV .[id number] PRN PRN Reason: Additional IVPB Infusion Labetalol HCl (Trandate) 5 mg IV X1 PRN PRN Reason: SBP > 160 prior to sheath pull Lisinopril (Zestril) 2.5 mg PO DAILY [facility] Last Admin: 12/01/19 09:40 Dose: 2.5 mg Documented by: Morphine Sulfate () 2 mg IV Q3H PRN PRN PRN Reason: Pain Score 6-10/10 Nitroglycerin (Nitrostat) 0.4 mg SUBLINGUAL Q5M PRN PRN Reason: CARDIAC/CHEST PAIN Ondansetron HCl (Zofran) 4 mg IV Q8H PRN PRN PRN Reason: NAUSEA/VOMITING Pantoprazole Sodium (Protonix) 40 mg PO DAILY [facility] Last Admin: 12/01/19 09:40 Dose: 40 mg Documented by: Sertraline HCl (Zoloft) 50 mg PO DAILY [facility] Last Admin: 12/01/19 09:40 Dose: 50 mg Documented by: Sodium Chloride () 10 - 40 ml IV UD PRN PRN Reason: SALINE FLUSH Tamsulosin HCl (Flomax) 0.4 mg PO DINNER [facility] Last Admin: 11/30/19 17:53 Dose: 0.4 mg Documented by: Ticagrelor (Brilinta) 90 mg PO BID [facility] Last Admin: 12/01/19 09:40 Dose: 90 mg Documented by: Discharge Activity: Return to Normal Activity Weight Bearing Status: Weight bearing as tolerated Call your doctor if you observe: Fever of 101 or Higher, Shortness of breath, Dizziness, Fainting spells, Chest pain, Increased palpitations (irregular heartbeat), Uncontrolled pain Home Medications: Medications to take at Discharge albuterol sulfate 2.5 mg INHALATION Q6H PRN #75 ml 07/08/19 albuterol sulfate 90 mcg/actuation aerosol inhaler 1 - 2 puff INHALATION Q6H PRN #8.5 g 07/19/19 enoxaparin 80 mg/0.8 mL subcutaneous syringe 80 mg SC Q12H 10/22/19 Aspirin [Aspirin, Baby] 81 mg PO DAILY@0800 11/07/19 Atorvastatin Calcium [Lipitor] 80 mg PO QHS 11/07/19 Carvedilol 12.5 mg PO BID 11/07/19 Furosemide [Lasix] 20 mg PO DAILY 11/07/19 Lisinopril 2.5 mg PO DAILY 11/07/19 Sertraline HCl [Zoloft] 50 mg PO QDAY 11/07/19 Tamsulosin HCl [Flomax] 0.4 mg PO DINNER 11/07/19 Ticagrelor [Brilinta] 90 mg PO BID 11/07/19 Nebulizer Accessories [Sidestream Mask] See Rx Instructions .ROUTE .MEDSUPPLY 11/09/19 gabapentin 800 mg tablet 800 mg PO BID tab 11/18/19 Primary Care Physician: Dharmesh Alonso MD [Primary Care Provider] - Please follow up with your Primary Care Physician in: 1 WEEK. Disposition: Home Minutes spent on discharge:: 32 Patient Condition:: Stable Medical Necessity - Tobacco Use Smoking Status: Former smoker Meaningful Use Info Meaningful Use Diagnoses (Choose all that apply): None applicable Inpatient E&M: 03923 Disch Hosp
--- NOTE | 2019-12-02 15:02 | CASEMGMT ---
[facility] DC PHONE CALL DC DATE: 12/01/2019 DC DISPOSITION: Home DC DIAGNOSIS: chest pain, heart cath, cardiomyopathy LACE/STRATA: 09/09 F/U APPTS MADE PRIOR TO DC: no PRESCRIPTIONS ACQUIRED BY PT: yes Attempted call to patient, no answer. Patient returned call to unit. Intro role of CM to patient via phone. Pt states he is feeling much improved, has prescriptions filled, no questions re: medications, and an appointment tomorrow with his reconcilement clerk in [place] that he will go to. No further questions or concerns, no care improvement suggestions. Mio CASTRON RN ACM
== END 2019-12-01 12:40 | disposition home or self-care (01) | DRG 287 ==
LOC: ED 20:31 → ICU 22:47 → PCU 11-30 12:24
PROVIDERS: Internal Medicine Cardiovascular Disease; Admitting Provider Hospitalist; Emergency Provider Emergency Medicine; PCP Internal Medicine; Referring Provider Hospitalist; Visit Provider Hospitalist
DX: I25.110 Atherosclerotic heart disease of native coronary artery with unstable angina pectoris (principal); I13.0 Hypertensive heart and chronic kidney disease with heart failure and stage 1 through stage 4 chronic kidney disease, or unspecified chronic kidney disease; I50.22 Chronic systolic (congestive) heart failure; Z68.1 Body mass index [BMI] 19.9 or less, adult; I48.20 Chronic atrial fibrillation, unspecified; D68.62 Lupus anticoagulant syndrome; N17.9 Acute kidney failure, unspecified; I95.9 Hypotension, unspecified; N18.3 Chronic kidney disease, stage 3 (moderate); I25.5 Ischemic cardiomyopathy; E78.5 Hyperlipidemia, unspecified; H53.8 Other visual disturbances; I44.7 Left bundle-branch block, unspecified; E87.6 Hypokalemia; F32.9 Major depressive disorder, single episode, unspecified; I48.0 Paroxysmal atrial fibrillation; I73.9 Peripheral vascular disease, unspecified; Z86.73 Personal history of transient ischemic attack (TIA), and cerebral infarction without residual deficits; Z79.82 Long term (current) use of aspirin; Z95.1 Presence of aortocoronary bypass graft; Z79.01 Long term (current) use of 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s; Z95.810 Presence of automatic (implantable) cardiac defibrillator; Z95.5 Presence of coronary angioplasty implant and graft; Z79.02 Long term (current) use of antithrombotics/antiplatelets; Z87.891 Personal history of nicotine dependence; Z86.74 Personal history of sudden cardiac arrest; Z82.49 Family history of ischemic heart disease and other diseases of the circulatory system; Z82.3 Family history of stroke; Z83.3 Family history of diabetes mellitus; Z89.512 Acquired absence of left leg below knee; Z90.49 Acquired absence of other specified parts of digestive tract; I25.2 Old myocardial infarction
CPT/HCPCS: 71045; 71275; 80048; 84484; 85025; 85347; 85610; 85652; 85730; 86141; 93005; 93306; 93308; 93454; 97802; 99285; J7030; J7040; Q9967; A4216; C1769; C1894; C8929

== ENCOUNTER → 2019-12-06 09:46 | Outpatient (CLI) | payer BC, SELFPAY ==
[2019-07-04 09:02] VITALS: BMI 29.8
[2019-08-29 14:59] VITALS: BMI 22.1
[2019-12-06 09:25] VITALS: BMI 23.3
[2019-12-06 13:04] LABS: Absolute Lymphocyte Count 3.79 X10^3/uL (0.83-4.51); Absolute Neutrophil Count 6.6 X10^3/uL (2.0-7.7); Basophil# 0.11 X10^3/uL; Basophil% 0.9 % (0-1); Eosinophil# 0.51 X10^3/uL; Eosinophils% 4.3 % (0-5); Hematocrit 43.4 % (40-54); Hemoglobin 14.2 g/dL (13.0-16.5); Lymphocyte # 3.79 X10^3/ul (4.0); Lymphocyte % 32.1 % (19-41); Mean Corp Hgb Conc 32.7 g/dL (32-36); Mean Corpuscular Hgb 31.4 pg (27.0-32.0); Mean Platelet Vol. 9.6 fl (6.2-12.0); Monocyte# 0.76 X10^3/uL; Monocyte% 6.4 % (0-10); NRBC Flagged by Analyzer 0 % (0-5); Neutrophil # 6.57 X10^3/uL (2.7-7.7); Neutrophil % 55.9 % (47-70); Platelet Count 475 K/mm3 (150-450); RBC Distribution Width CV 16.7 % (11.6-14.6); RBC Distribution Width SD 57.2 fl (35.1-43.9); Red Blood Count 4.52 M/mm3 (4.6-6.2); White Blood Count 11.8 K/mm3 (4.4-11.0)
[2019-12-06 13:09] LABS: Anion Gap 11 (5-15); BUN 12 mg/dL (7-18); Calcium,Total 9.9 mg/dL (8.5-10.1); Chloride 98 mmol/L (98-107); Creatinine, Serum 1.34 mg/dL (0.70-1.30); EST Glomerular Filtration Rate 59 mL/min (>60); Est Glom Filt Rate - Afr Amer 71 mL/min (>60); Glucose 100 mg/dL (74-106); Potassium 3.2 mmol/L (3.5-5.1); Sodium Level 134 mmol/L (136-145)
== END ==
PROVIDERS: PCP Internal Medicine; Referring Provider Internal Medicine; Visit Provider Internal Medicine
DX: E87.6 Hypokalemia (principal); I10 Essential (primary) hypertension
CPT/HCPCS: 36415; 80048; 85025

== ENCOUNTER 2020-01-05 15:45 | Emergency (ER) | payer BC, SELFPAY ==
[2019-07-04 09:02] VITALS: BMI 29.8
[2019-12-06 09:25] VITALS: BMI 23.3
[2020-01-05 15:46] VITALS: BP 191/116; PULSE 137; RESP 18; TEMP 36.3; O2SAT 99; BMI 23.7
--- NOTE | 2020-01-05 15:54 | RAD_ITS ---
STUDY: X-RAY CHEST REASON FOR EXAM: Male, 54 years old. CHEST PAIN TODAY, HX OK, STROKE TECHNIQUE: Single AP portable view of the chest. COMPARISON: 11/29/2019. FINDINGS: The lungs are clear and expanded. There is no demonstrated pleural abnormality. Normal size heart. Normal mediastinum and edgar. Normal visualized pulmonary arteries. Normal visualized aortic arch and descending thoracic aorta. Normal visualized thoracic spine. Normal visualized ribs, clavicles, and shoulders. There is no demonstrated abnormality of the visualized soft tissue structures of the upper abdomen. RAD/Chest 1 View (Portable) IMPRESSION: Normal x-ray examination of the chest. Electronically Signed: Jame Mesa MD at 16:27 EDT , Service support ,
--- NOTE | 2020-01-05 15:54 | EKG12_ITS ---
Test Reason : Blood Pressure : / mmHG Vent. Rate : 137 BPM Atrial Rate : 137 BPM P-R Int : 096 ms QRS Dur : 148 ms QT Int : 360 ms P-R-T Axes : 000 019 105 degrees QTc Int : 543 ms Sinus tachycardia with short PA Left bundle branch block Abnormal ECG Confirmed by JIN BUSH, MAHSA ([id number]), purchasing expeditor PAULA PERKINS ([id number]) on 01/06/2020 9:41:51 AM Referred By: Confirmed By:MAHSA ABDI MD
[2020-01-05 15:58] VITALS: O2SAT 100
--- NOTE | 2020-01-05 16:03 | ED.DCSUM_ITS ---
History of Present Illness Chief Complaint: Chest Pain Narrative: 4-year-old male presenting with chest pain which started about 30 minutes prior to arrival. Patient has significant history of cardiac arrest in july in which he received a 10 the LAD. He has dilated cardiomyopathy with an EF of 36% despite maximal medical therapy. He does have a ventricular arrhythmia he has history of thrombotic strokes as well with the most recent being 01 Oct 2019. He has extensive vascular problems due to antiphospholipid syndrome. He is on Brilinta, aspirin, Lovenox, Eliquis which she has been taking daily. Per medical record he was having asymptomatic runs of V. tach when he was previously hospitalized at [facility] in September. His Coreg was then increased. He was consulted with Dr. Howe who recommended a CMA-D he was scheduled for this December 29. Patient states he has not had any chest pain or dysrhythmias that he knows of until today when his chest tarted hurting and he had a fast heart rate. Patient is concerned that he will not make it to the time when his leadership coach can put his pacemaker in. Since this is a specialty pacemaker he was told that he can only have it done at [facility]. It is unclear whether Dr. Howe is the only physician that can perform this procedure. Past Medical History - Allergies and Home Meds Allergies/Adverse Reactions: Allergies Penicillins Allergy (Verified 01/05/20 15:52) Swelling adhesive tape Adverse Reaction (Verified 01/05/20 15:52) Rash oxycodone [From OxyContin] Adverse Reaction (Verified 01/05/20 15:52) Other it makes me go nuts Primary Care Physician: Dharmesh Alonso MD [Primary Care Provider] - Prior records reviewed: Yes Surgical History: cholecystectomy, - - Left CEAy 04/22/2019 at [facility], Left BKA for severe peripheral vascular disease with nonhealing wounds, cellulitis and osteomyelitis, Multiple stents in both lower extremities secondary to peripheral vascular disease, Multiple debridements of nonhealing wounds of the left lower extremity, Cardiac PCI x 1, cholecystectomy. Lives: Spouse/ Significant Other Smoking Status: Former smoker Alcohol: None Drugs: None - Family History Maternal Family History: Family History (Last Reviewed 12/06/19 @ 09:23 by Mila Taveras) Mother Diabetes CVA (cerebral vascular accident) Myocardial infarction Father Cancer Kidney disease Family History: Reports: Cancer, Diabetes, Heart Disease, Renal Disease Paternal Family History: Family History (Last Reviewed 12/06/19 @ 09:23 by Mila Taveras) Mother Diabetes CVA (cerebral vascular accident) Myocardial infarction Father Cancer Kidney disease Family History: Reports: Cancer Review of Systems General: Denies: Chills, Fever, Sweats Eyes: Denies: Visual changes - bilaterally, Diplopia ENT: Denies: Rhinorrhea, Sore throat Cardiovascular: Reports: Chest pain, Heart racing Respiratory: Reports: Dyspnea. Denies: Cough Gastrointestinal: Denies: Abdominal pain Genitourinary: Denies: Dysuria Musculoskeletal: Denies: Myalgias, Arthralgias, Swelling Skin: Denies: Rash Hematologic: Denies: Easy bruising, Easy bleeding Physical Exam Vital Signs/Narrative: Vital Signs Temp Pulse Resp BP Pulse Ox 01/05/20 15:58 100 01/05/20 15:46 97.4 F L 137 H 18 191/116 H 99 General: Well nourished, Acute Distress Head: Normocephalic, Atraumatic Eyes: Perrl, EOMI. Negative for: Pale conjunctiva ENT: Moist mucous membranes Cardiovascular: Regular rhythm, Tachycardia Respiratory: No distress, CTA bilaterally Abdomen: Soft Back: Nontender Extremities: Nontender, No edema Skin: Normal color. Negative for: Pallor, Rash Neurological: Alert, Oriented x3 Psychological: Normal affect Diagnostic/Tx/Re-eval Clinical Impression(s) from Imaging Studies Chest X-Ray 01/05/20 15:54 IMPRESSION: Normal x-ray examination of the chest. Electronically Signed: Jame Mesa MD at 16:27 EDT , Service support , Laboratory Data 01/05/20 01/05/20 15:50 15:50 WBC 13.3 H RBC 4.36 L Hgb 13.2 Hct 39.8 L MCV 91.3 MCH 30.3 MCHC 33.2 RDW Std Deviation 51.8 H RDW Coeff of Lawson 15.7 H Plt Count 400 MPV 9.6 Immature Gran % (Auto) 0.300 Neut % (Auto) 55.8 Lymph % (Auto) 32.4 [place] % (Auto) 6.6 Eos % (Auto) 4.1 Baso % (Auto) 0.8 Absolute Neuts (auto) 7.4 Absolute Lymphs (auto) 4.30 Nucleated RBC % 0 Differential Comment SCANNED Atypical Lymphocytes RARE Sodium 136 Potassium 3.3 L Chloride 103 Carbon Dioxide 24.0 Anion Gap 9 BUN 6 L Creatinine 1.20 Estim Creat Clear Calc 79.53 Est GFR (MDRD) Af Amer 81 Est GFR (MDRD) Non-Af 67 BUN/Creatinine Ratio 5.0 L Glucose 114 H Calcium 9.3 Magnesium 2.1 Troponin I < 0.015 - Rhythm Strip Rhythm Strip: Sinus Rhythm Rate: 137 - EKG Initial EKG Interpretation: Sinus Tachycardia - Wide QRS 137 Follow-up EKG Interpretation: Sinus Rhythm, Sinus Tachycardia - 114 - Medical Decision Making Patient presents with chest pain which started about 30 minutes prior to arrival. He states he has palpitations and his heart is racing. He states he has not had a problem with this since his recent admission. He recently had a clean cardiac cath. Patient is also scheduled last Monday to have a CMA?D however his leadership coach had a quarantine due to leaving [facility]. Patient is very concerned that he is going to go into a tachydysrhythmia and . I did talk to [facility] transfer line who talked to electrophysiology partners of Dr. Howe and they stated that this is an elective procedure and that it does not have to do with chest pain and it is not emergent. After reviewing the documentation by Dr. Howe which said he is at risk of sudden cardiac , as well as the patient's understanding that he was told by Dr. Howe he needed this is soon as possible I did have the patient transferred to [facility] for a consult. I feel this is reasonable given the patient does not have a Vest in his history he is at high risk. Patient was counseled that I could not guarantee he would get the pacemaker while he is in the hospital and he acknowledges understanding of this. I did speak with the internal medicine physician who accepted Dr. Funes. He was amenable to the transfer. Impression: 1. Chest pain 2. Tachydysrhythmia 3. History of V. tach ED Disposition - Plan for ED Patient: Disposition: [facility] Referrals: Dharmesh Alonso MD [Primary Care Provider] -
[2020-01-05] MEDS: dilTIAZem 25 MG/5 ML Vial IV BOLUS (16:04)
[2020-01-05 16:05] LABS: Absolute Neutrophil Count 7.4 X10^3/uL (2.0-7.7); Basophil# 0.11 X10^3/uL; Basophil% 0.8 % (0-1); Eosinophil# 0.55 X10^3/uL; Eosinophils% 4.1 % (0-5); Hematocrit 39.8 % (40-54); Hemoglobin 13.2 g/dL (13.0-16.5); Lymphocyte % 32.4 % (19-41); Mean Corp Hgb Conc 33.2 g/dL (32-36); Mean Corpuscular Hgb 30.3 pg (27.0-32.0); Mean Corpuscular Volume 91.3 fL (80-94); Mean Platelet Vol. 9.6 fl (6.2-12.0); Monocyte# 0.87 X10^3/uL; Monocyte% 6.6 % (0-10); NRBC Flagged by Analyzer 0 % (0-5); Neutrophil % 55.8 % (47-70); POSITIVE MORPHOLOGY YES; Platelet Count 400 K/mm3 (150-450); RBC Distribution Width CV 15.7 % (11.6-14.6); RBC Distribution Width SD 51.8 fl (35.1-43.9); Red Blood Count 4.36 M/mm3 (4.6-6.2); White Blood Count 13.3 K/mm3 (4.4-11.0)
--- NOTE | 2020-01-05 16:11 | EKG12_ITS ---
Test Reason : Blood Pressure : / mmHG Vent. Rate : 114 BPM Atrial Rate : 114 BPM P-R Int : 128 ms QRS Dur : 150 ms QT Int : 372 ms P-R-T Axes : 004 001 113 degrees QTc Int : 512 ms Sinus tachycardia with occasional and consecutive Premature ventricular complexes Left bundle branch block Abnormal ECG Confirmed by JIN BUSH, MAHSA ([id number]), editor map PAULA PERKINS ([id number]) on 01/06/2020 9:42:02 AM Referred By: Confirmed By:MAHSA ABDI MD
[2020-01-05] MEDS: Morphine 4 MG/ML Syringe IV (16:16)
[2020-01-05 16:17] LABS: Differential Indicated SCAN CRITERIA MET
[2020-01-05 16:29] LABS: Atypical Lymphocyte RARE %; Differential Comment SCANNED
[2020-01-05 16:38] LABS: Anion Gap 9 (5-15); BUN 6 mg/dL (7-18); Calcium,Total 9.3 mg/dL (8.5-10.1); Chloride 103 mmol/L (98-107); EST Glomerular Filtration Rate 67 mL/min (>60); Est Glom Filt Rate - Afr Amer 81 mL/min (>60); Estimated Creatinine Clearance 79.53 ml/min; Glucose 114 mg/dL (74-106); Magnesium 2.1 mg/dL (1.6-2.6); Potassium 3.3 mmol/L (3.5-5.1); Sodium Level 136 mmol/L (136-145)
[2020-01-05 16:45] VITALS: BP 155/103; PULSE 111; RESP 23; O2SAT 98
[2020-01-05 17:22] VITALS: BP 154/98; PULSE 103; RESP 22; O2SAT 99
[2020-01-05 18:10] VITALS: BP 157/95; PULSE 103; RESP 18; O2SAT 97
[2020-01-05 18:51] VITALS: BP 152/96; PULSE 102; RESP 13; O2SAT 98
== END 2020-01-05 19:15 | disposition short-term general hospital (02) ==
PROVIDERS: Emergency Provider Student in an Organized Health Care Education/Training Program; PCP Internal Medicine
DX: R07.9 Chest pain, unspecified (principal); R00.0 Tachycardia, unspecified; I25.2 Old myocardial infarction; I42.0 Dilated cardiomyopathy; Z82.3 Family history of stroke; Z82.49 Family history of ischemic heart disease and other diseases of the circulatory system; Z86.73 Personal history of transient ischemic attack (TIA), and cerebral infarction without residual deficits; Z86.74 Personal history of sudden cardiac arrest; Z87.891 Personal history of nicotine dependence; Z88.0 Allergy status to penicillin; Z88.5 Allergy status to narcotic agent; Z95.0 Presence of cardiac pacemaker; Z90.49 Acquired absence of other specified parts of digestive tract; Z89.512 Acquired absence of left leg below knee
CPT/HCPCS: 71045; 80048; 83735; 84484; 85025; 93005; 96374; 96375; 99285; A4216

== ENCOUNTER 2020-03-02 10:33 | Observation (INO) | payer BC, SELFPAY ==
[2019-07-04 09:02] VITALS: BMI 29.8
[2020-03-02] VITALS (15 sets, daily range): BP systolic 151–175; BP diastolic 91–125; PULSE 82–127; RESP 15–18; TEMP 36.4–36.9; O2SAT 97–99; BMI 28.1; BMI 21.6
--- NOTE | 2020-03-02 10:42 | EKG12_ITS ---
Test Reason : SHOCKED Blood Pressure : / mmHG Vent. Rate : 128 BPM Atrial Rate : 128 BPM P-R Int : 144 ms QRS Dur : 156 ms QT Int : 340 ms P-R-T Axes : -06 -09 120 degrees QTc Int : 496 ms Atrial Flutter with 2:1 Left bundle branch block Abnormal ECG Confirmed by JIN BUSH, MAHSA ([id number]), editor newspaper PAULA PERKINS ([id number]) on 03/04/2020 10:10:11 AM Referred By: Confirmed By:MAHSA ABDI MD
--- NOTE | 2020-03-02 10:52 | ED.RN ---
PACEMAKER INTERROGATED. [employer] CONTACTED ABOUT INTERROGATION
[2020-03-02 10:53] LABS: Absolute Lymphocyte Count 2.15 X10^3/uL (0.83-4.51); Absolute Neutrophil Count 6.4 X10^3/uL (2.0-7.7); Eosinophil# 0.42 X10^3/uL; Eosinophils% 4.4 % (0-5); Hematocrit 43.7 % (40-54); Hemoglobin 14.1 g/dL (13.0-16.5); Lymphocyte # 2.15 X10^3/ul (4.0); Lymphocyte % 22.3 % (19-41); Mean Corp Hgb Conc 32.3 g/dL (32-36); Mean Corpuscular Hgb 27.2 pg (27.0-32.0); Mean Corpuscular Volume 84.2 fL (80-94); Mean Platelet Vol. 9.6 fl (6.2-12.0); Monocyte# 0.61 X10^3/uL; Monocyte% 6.3 % (0-10); NRBC Flagged by Analyzer 0 % (0-5); Neutrophil # 6.35 X10^3/uL (2.7-7.7); Neutrophil % 65.8 % (47-70); Platelet Count 250 K/mm3 (150-450); RBC Distribution Width CV 17.5 % (11.6-14.6); RBC Distribution Width SD 52.5 fl (35.1-43.9); Red Blood Count 5.19 M/mm3 (4.6-6.2); White Blood Count 9.7 K/mm3 (4.4-11.0)
--- NOTE | 2020-03-02 10:59 | RAD_ITS ---
STUDY: X-RAY CHEST REASON FOR EXAM: Male, 54 years old. SHOCKED 5 TIMES BY DEFIB, -- DEFIB PLACED 5 WEEKS AGO TECHNIQUE: Single AP portable view of the chest. COMPARISON: None. FINDINGS: Pacemaker is seen on the left side. The lungs are clear and expanded. There is no demonstrated pleural abnormality. Normal size heart. Normal mediastinum and edgar. Normal visualized pulmonary arteries. Normal visualized aortic arch and descending thoracic aorta. Normal visualized thoracic spine. There is degenerative osteoarthritis of the bilateral shoulders. There is no demonstrated abnormality of the visualized soft tissue structures of the upper abdomen. RAD/Chest 1 View (Portable) IMPRESSION: Degenerative changes, as described above. No demonstrated acute cardiopulmonary process. Electronically Signed: Peri Wright, at 12:01 EDT Tel , Service support ,
[2020-03-02] MEDS: Metoprolol Tartrate 5 MG/5 ML Vial IV (11:04)
[2020-03-02 11:30] LABS: Anion Gap 5 (5-15); BUN 10 mg/dL (7-18); BUN/Creat Ratio 6.8 RATIO (10-20); Calcium,Total 9.6 mg/dL (8.5-10.1); Chloride 102 mmol/L (98-107); Creatinine, Serum 1.46 mg/dL (0.70-1.30); EST Glomerular Filtration Rate 53 mL/min (>60); Est Glom Filt Rate - Afr Amer 65 mL/min (>60); Estimated Creatinine Clearance 67.25 ml/min; Glucose 114 mg/dL (74-106); Sodium Level 134 mmol/L (136-145)
--- NOTE | 2020-03-02 11:32 | ED.VIS.CHEST ---
History of Present Illness Chief Complaint: Chest Other Informant: Patient, EMS Narrative: Patient presenting for evaluation secondary to his defibrillator firing. Patient had a pacer defibrillator placed about 5 6 weeks ago. Patient states that today was getting gas and his defibrillator fired approximately 5-6 times. He denies feeling ill prior to this, no chest pain or palpitations. He has not been sick recently fever cough nausea vomiting or diarrhea. No changes in his medications. Patient is not chronically anticoagulated with Lovenox. Review of systems otherwise negative. Past Medical History - Allergies and Home Meds Allergies/Adverse Reactions: Allergies Penicillins Allergy (Verified 03/02/20 12:22) Swelling adhesive tape Adverse Reaction (Verified 03/02/20 12:22) Rash oxycodone [From OxyContin] Adverse Reaction (Verified 03/02/20 12:22) Other it makes me go nuts Primary Care Physician: Dharmesh Alonso MD [Primary Care Provider] - Prior records reviewed: Yes Past Medical History: - - A. fib, pacemaker placement Surgical History: cholecystectomy, - - Left CEAy 04/22/2019 at [facility], Left BKA for severe peripheral vascular disease with nonhealing wounds, cellulitis and osteomyelitis, Multiple stents in both lower extremities secondary to peripheral vascular disease, Multiple debridements of nonhealing wounds of the left lower extremity, Cardiac PCI x 1, cholecystectomy. Lives: Spouse/ Significant Other Smoking Status: Former smoker Alcohol: None Drugs: None - Family History Maternal Family History: Family History (Last Reviewed 12/06/19 @ 09:23 by Mila Taveras) Mother Diabetes CVA (cerebral vascular accident) Myocardial infarction Father Cancer Kidney disease Family History: Reports: Cancer, Diabetes, Heart Disease, Renal Disease Paternal Family History: Family History (Last Reviewed 12/06/19 @ 09:23 by Mila Taveras) Mother Diabetes CVA (cerebral vascular accident) Myocardial infarction Father Cancer Kidney disease Family History: Reports: Cancer Review of Systems All systems negative except as indicated General: Denies: Chills, Fever, Sweats Eyes: Denies: Visual changes - bilaterally, Diplopia ENT: Denies: Rhinorrhea, Sore throat Cardiovascular: Denies: Chest pain, Palpitations Respiratory: Denies: Dyspnea, Cough, Dyspnea on exertion Gastrointestinal: Denies: Abdominal pain, Nausea, Vomiting, Diarrhea, Melena, Hematochezia Genitourinary: Denies: Dysuria, Hematuria, Frequency Musculoskeletal: Denies: Back pain, Extremity Pain Skin: Denies: Rash, Wounds Neurological: Denies: Headache, Weakness, Numbness Physical Exam Vital Signs/Narrative: Vital Signs Temp Pulse Resp BP Pulse Ox 03/02/20 11:22 91 15 167/119 H 97 03/02/20 11:06 107 H 18 157/114 H 99 03/02/20 10:34 97.6 F L 127 H 15 175/125 H 99 Inital Vital Signs reviewed: Yes General: Well nourished, Well developed, No Acute Distress Head: Normocephalic, Atraumatic Eyes: Perrl, EOMI ENT: Moist mucous membranes, No rhinorrhea Neck: Supple, Nontender Cardiovascular: Regular rhythm, No murmurs, Tachycardia Respiratory: No distress, CTA bilaterally, Chest nontender Abdomen: Soft, Nontender, Nondistended, Normal bowel sounds Back: Nontender, Normal Inspection Extremities: Nontender, No edema, - - Left leg below the knee amputation Skin: Normal color, No rash Neurological: Alert, Oriented x3, Cranial nerves II-XII grossly intact, Normal Strength, Normal Sensation Psychological: Normal affect, Normal Mood Diagnostic/Tx/Re-eval Clinical Impression(s) from Imaging Studies Chest X-Ray 03/02/20 10:59 IMPRESSION: Degenerative changes, as described above. No demonstrated acute cardiopulmonary process. Electronically Signed: Peri Wright, at 12:01 EDT Tel , Service support , Laboratory Data 03/02/20 03/02/20 10:43 10:43 WBC 9.7 RBC 5.19 Hgb 14.1 Hct 43.7 MCV 84.2 MCH 27.2 MCHC 32.3 RDW Std Deviation 52.5 H RDW Coeff of Lawson 17.5 H Plt Count 250 MPV 9.6 Immature Gran % (Auto) 0.200 Neut % (Auto) 65.8 Lymph % (Auto) 22.3 Converse % (Auto) 6.3 Eos % (Auto) 4.4 Baso % (Auto) 1.0 Absolute Neuts (auto) 6.4 Absolute Lymphs (auto) 2.15 Nucleated RBC % 0 Sodium 134 L Potassium 4.0 Chloride 102 Carbon Dioxide 27.0 Anion Gap 5 BUN 10 Creatinine 1.46 H Estim Creat Clear Calc 67.25 Est GFR (MDRD) Af Amer 65 Est GFR (MDRD) Non-Af 53 L BUN/Creatinine Ratio 6.8 L Glucose 114 H Calcium 9.6 Troponin I < 0.015 - EKG Initial EKG Interpretation: - - Atrial flutter with a 2-1 rate, ventricular rate 128. Left bundle branch block morphology. No significant changes in the patient's EKG morphology. - Medical Decision Making Patient presented after his defibrillator firing. His EKG by my interpretation I feel shows 2-1 atrial flutter with left bundle branch block. CBC chemistry troponin not found to be significantly remarkable. Chest x-ray shows chronic changes. Patient's rate was immediately improved with a single dose of labetalol down into the 90s. He maintained being asymptomatic. Patient's device was interrogated, [employer] feels that this was a SVT episode. Patient will be admitted for further cardiac work-up and treatment, and potentially adjusting his device. Critical care time (excluding procedures): 30-74 minutes ED Disposition - Plan for ED Patient: Disposition: Acute Care Hospital [facility] Diagnosis: SVT (supraventricular tachycardia), Defibrillator discharge
--- NOTE | 2020-03-02 12:07 | NURSING ---
DR MAGDA BERMUDEZ
--- NOTE | 2020-03-02 12:52 | PCM.HP.STD ---
Problem List (1) SVT (supraventricular tachycardia) Status: Acute (2) Defibrillator discharge Status: Acute (3) History of left heart catheterization (LHC) Status: Chronic Comment: Normal Coronaries....august 2016 at [facility] (4) CAD in [place] artery Status: Chronic (5) Paroxysmal atrial fibrillation Status: Chronic (6) HLD (hyperlipidemia) Status: Chronic Qualifiers: Hyperlipidemia type: unspecified Qualified Code(s): E78.5 - Hyperlipidemia, unspecified (7) Acute CVA (cerebrovascular accident) Status: Chronic (8) History of coronary artery stent placement Status: Chronic Comment: 3.5 x 32 mm Synergy MR BRIDGER to pLAD 07/03/19 (9) Atherosclerosis of coronary artery of [place] heart without angina pectoris Status: Chronic Qualifiers: Coronary Disease-Associated Artery/Lesion type: [place] artery Qualified Code(s): I25.10 - Atherosclerotic heart disease of [place] coronary artery without angina pectoris (10) CHF (congestive heart failure) Status: Chronic Qualifiers: Heart failure type: systolic Heart failure chronicity: chronic Qualified Code(s): I50.22 - Chronic systolic (congestive) heart failure (11) 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 (12) Chronic renal failure, stage 2 (mild) Status: Chronic (13) Depression Status: Chronic Qualifiers: Depression Type: unspecified Qualified Code(s): F32.9 - Major depressive disorder, single episode, unspecified (14) History of carotid endarterectomy Status: Chronic Comment: 04/22/19 at [facility] (15) History of ischemic left MCA stroke Status: Chronic Comment: 04/17/19 (16) Debility Status: Chronic Comment: due to L MCA stroke 04/17/19 (17) Normochromic normocytic anemia Status: Chronic (18) LBBB (left bundle branch block) Status: Chronic (19) Dilated cardiomyopathy Status: Chronic Comment: 27% EF on ECHO 02/18/19........non-ischemic. 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 Comment: Patient is on Coumadin for PE (23) Peripheral arterial disease Status: Chronic Comment: BL LE's....multiple stents in both legs (24) Hypercoagulable state Status: Chronic Comment: Positive lupus anticoagulant, positive anticardiolipin anti B IgM, and increased homocystine level History of Present Illness Date of Admission: 03/02/20 Chief Complaint: AICD firing 5 times today The patient is a 54 year old M with history of coronary artery disease status post LAD stent, last cath in November 2019 during previous admission for unstable angina which showed patent LAD came to ED with AICD firing 5 times today. Patient denied any chest pain or pressure other than AICD shock sensation. No associated shortness of breath, dizziness, syncope. This is the first AICD firing after AICD insertion in December [address] [facility] by Dr. David Soliz. The EMS EKG shows heart rate 133 with chronic left bundle branch block and further ER EKG shows sinus tachycardia at 128. Yesterday's intubation was done in ER and looks most likely SVT. Triage vitals shows blood pressure 175/125, heart rate 127 pulse ox 99% on room air. Lab works reviewed. K4.0, sodium 134, BUN/creatinine 10/1.46. First troponin negative. [] Past Medical History Past Medical History (Chronic Problems): Chronic Problems (Last Reviewed 12/06/19 @ 09:23 by Mila Taveras) History of left heart catheterization (LHC) (Chronic 11/29/19) Normal Coronaries....august 2016 at [facility] CAD in [place] artery (Chronic) Paroxysmal atrial fibrillation (Chronic) HLD (hyperlipidemia) (Chronic) Acute CVA (cerebrovascular accident) (Chronic) History of coronary artery stent placement (Chronic) 3.5 x 32 mm Synergy MR BRIGDER to pLAD 07/03/19 Atherosclerosis of coronary artery of [place] heart without angina pectoris (Chronic) CHF (congestive heart failure) (Chronic) History of sudden cardiac arrest successfully resuscitated (Chronic) Chronic renal failure, stage 2 (mild) (Chronic) Depression (Chronic) History of carotid endarterectomy (Chronic) 04/22/19 at [facility] History of ischemic left MCA stroke (Chronic) 04/17/19 Debility (Chronic) due to L MCA stroke 04/17/19 Normochromic normocytic anemia (Chronic) LBBB (left bundle branch block) (Chronic) Dilated cardiomyopathy (Chronic) 27% EF on ECHO 02/18/19........non-ischemic. 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 (Chronic) Patient is on Coumadin for PE Peripheral arterial disease (Chronic) BL LE's....multiple stents in both legs Hypercoagulable state (Chronic) Positive lupus anticoagulant, positive anticardiolipin anti B IgM, and increased homocystine level Medical History: Medical History (Last Reviewed 12/06/19 @ 09:23 by Mila Taveras) Paroxysmal atrial fibrillation (Chronic) I48.0 HLD (hyperlipidemia) (Chronic) E78.5 Acute CVA (cerebrovascular accident) (Chronic) I63.9 Atherosclerosis of coronary artery of [place] heart without angina pectoris (Chronic) I25.10 CHF (congestive heart failure) (Chronic) I50.9 History of sudden cardiac arrest successfully resuscitated (Chronic) Z86.74 Chronic renal failure, stage 2 (mild) (Chronic) N18.2 Depression (Chronic) F32.9 History of ischemic left MCA stroke (Chronic) Z86.73 04/17/19 Debility (Chronic) R53.81 due to L MCA stroke 04/17/19 Normochromic normocytic anemia (Chronic) D64.9 Dilated cardiomyopathy (Chronic) I42.0 27% EF on ECHO 02/18/19........non-ischemic. normal coronaries on cath August 2016 at [facility] Essential hypertension (Chronic) I10 custodial current use of anticoagulant (Chronic) Z79.01 Patient is on Coumadin for PE Peripheral arterial disease (Chronic) I73.9 BL LE's....multiple stents in both legs Hypercoagulable state (Chronic) D68.59 Positive lupus anticoagulant, positive anticardiolipin anti B IgM, and increased homocystine level Anemia D64.9 Arthritis M19.90 Vascular disease I99.9 Gallstones K80.20 Cardiac arrest (Inactive) I46.9 Chronic osteomyelitis of left tibia (Inactive) M86.662 chronic osteomyelitis left tibia at BKA stump History of DVT (deep vein thrombosis) (Inactive) Z86.718 History of pulmonary embolism (Inactive) Z86.711 Ischemic ulcer of right foot (Inactive) L97.519 Methicillin resistant Staphylococcus aureus infection (Inactive) A49.02 Osteomyelitis of left lower extremity (Inactive) M86.9 Pain of amputation stump of left lower extremity (Inactive) T87.89, M79.605 Personal history of osteomyelitis (Inactive) Z87.39 SVT (supraventricular tachycardia) (Inactive) I47.1 had an ablation in the past Ulceration of below knee amputation stump (Inactive) T87.89, L97.809 Allergies Penicillins Allergy (Verified 03/02/20 12:22) Swelling adhesive tape Adverse Reaction (Verified 03/02/20 12:22) Rash oxycodone [From OxyContin] Adverse Reaction (Verified 03/02/20 12:22) Other it makes me go nuts Home Medications: Ambulatory Orders Medication Instructions Recorded albuterol sulfate 2.5 mg INHALATION Q6H PRN #75 ml 07/08/19 albuterol sulfate 90 mcg/actuation 1 - 2 puff INHALATION Q6H PRN #8.5 07/19/19 aerosol inhaler g Aspirin [Aspirin, Baby] 81 mg PO DAILY@0800 11/07/19 Carvedilol 12.5 mg PO BID 11/07/19 Lisinopril 2.5 mg PO DAILY 11/07/19 Sertraline HCl [Zoloft] 50 mg PO QDAY 11/07/19 Ticagrelor [Brilinta] 90 mg PO BID 11/07/19 Nebulizer Accessories [Sidestream See Rx Instructions .ROUTE 11/09/19 Mask] .MEDSUPPLY gabapentin 800 mg tablet 800 mg PO BID tab 11/18/19 atorvastatin 80 mg tablet 80 mg PO QHS #90 tab 12/06/19 enoxaparin 80 mg/0.8 mL 80 mg SC Q12H #8 ml 12/06/19 subcutaneous syringe furosemide 20 mg tablet 20 mg PO DAILY #90 tab 12/06/19 potassium chloride 20 mEq 20 meq PO DAILY #90 tab 12/06/19 tablet,extended release tamsulosin 0.4 mg capsule 0.4 mg PO DINNER #90 cap 12/06/19 Surgical History: Surgical History (Last Reviewed 12/06/19 @ 09:23 by Mila Taveras) History of left heart catheterization (LHC) (Chronic) Onset Date: 11/29/19 Z98.890 Normal Coronaries....august 2016 at [facility] History of coronary artery stent placement (Chronic) Z95.5 3.5 x 32 mm Synergy MR BRIDGER to pLAD 07/03/19 History of carotid endarterectomy (Chronic) Z98.890 04/22/19 at [facility] 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) Z89.512 at [facility] for severe PVD with non-healing wounds and recurrent infections LLE Revision done in 2018 History of cholecystectomy Z90.49 1998 History of surgical removal of testicle Z98.890, Z90.79 History of cardiac radiofrequency ablation (Inactive) Onset Date: ~02/25/13 Z98.890 PVC Ablation 02/25/13 @ [facility] Surgical History: cholecystectomy, - - Left CEAy 04/22/2019 at [facility], Left BKA for severe peripheral vascular disease with nonhealing wounds, cellulitis and osteomyelitis, Multiple stents in both lower extremities secondary to peripheral vascular disease, Multiple debridements of nonhealing wounds of the left lower extremity, Cardiac PCI x 1, cholecystectomy. Psychiatric History: Anxiety, Depression Lives: Spouse/ Significant Other Smoking Status: Former smoker Alcohol: None Drugs: None - *Family History Maternal Family History: Family History (Last Reviewed 12/06/19 @ 09:23 by Mila Taveras) Mother Diabetes CVA (cerebral vascular accident) Myocardial infarction Father Cancer Kidney disease History Items: Cancer, Diabetes, Heart Disease, Renal Disease Paternal Family History: Family History (Last Reviewed 12/06/19 @ 09:23 by Mila Taveras) Mother Diabetes CVA (cerebral vascular accident) Myocardial infarction Father Cancer Kidney disease History Items: Cancer Review of Systems Constitutional: Denies: Chills, Fever, Weight Change HEENT: Denies: Head Aches, Sinus Congestion, Sinus Drainage Cardiovascular: Reports: - - AICD firing. Denies: Chest Pain, Chest Pressure, Chest Tightness, Palpitations Respiratory: Denies: Cough, Shortness of breath at rest, Sputum production Gastrointestinal: Denies: Abdominal Pain, Nausea, Vomiting Genitourinary: Denies: Dysuria Musculoskeletal: Reports: - - Left BKA. Denies: Joint Pain, Joint Tenderness Skin: Denies: Rash, Wounds Neurological: Denies: Numbness, Tingling, Focal weakness Psychiatric: Denies: Anxiety, Depression, Homicidal Ideations, Suicidal Ideations Hematologic/ Lymphatic: Denies: Easy Bruising, Easy Bleeding VTE Information - Inpt Only VTE Present on Admission: No VTE Mechan Device Prophylaxis: None VTE Pharm Prophylaxis ordered?: Yes Patient Problems: Active and Suspected Problems (Last Reviewed 12/06/19 @ 09:23 by Mila Taveras) SVT (supraventricular tachycardia) (Acute) Defibrillator discharge (Acute) Objective: Physical exam General: Alert, Oriented x3, Cooperative HEENT: Atraumatic, PERRLA, EOMI, Normocephalic Oral: No Gingival or Mucosal Lesions/ Ulcerations Neck: Supple, No JVD, Negative Carotid Bruits Lungs: Air entry equal in bilateral lung bases. No crepitation/rhonchi. No hypoxia or tachypnea Cardiovascular: AICD in left subclavicular region. Well-healed scar. Sinus tachycardia, heart rate in upper 100s. Normal S1, Normal S2, No murmurs Abdomen: Bowel Sounds Present, Soft, Non Tender, Non-Distended : No renal angle tenderness. No suprapubic tenderness. Extremities: No edema, Capillary Refill Less than 3 Seconds Skin: No rashes, No breakdown Musculoskeletal: No Tenderness to Palpation of Joints or Extremities. Left BKA. No open wound at the stump but tibial bone is palpable. Neurological: Cranial nerves II-XII grossly intact, Deep Tendon Reflexes 2+/4 and Symmetrical, Neuro grossly intact Psych/Mental Status: Normal Affect, Appropriate. - Physical Exam Vitals/I&O's: Vital Signs Temp Pulse Resp BP Pulse Ox 97.6 F L 91 16 153/105 H 98 03/02/20 10:34 03/02/20 12:03 03/02/20 12:03 03/02/20 12:03 03/02/20 12:03 Oxygen Delivery Method Room Air Weight: 219 lb 5.759 oz Body Mass Index (BMI) 28.1 Finger Stick Blood Glucose 95 Laboratory Results 03/02/20 10:43: WBC 9.7, RBC 5.19, Hgb 14.1, Hct 43.7, MCV 84.2, MCH 27.2, MCHC 32.3, RDW Std Deviation 52.5 H, RDW Coeff of Lawson 17.5 H, Plt Count 250, MPV 9.6, Immature Gran % (Auto) 0.200, Neut % (Auto) 65.8, Lymph % (Auto) 22.3, Forrest % (Auto) 6.3, Eos % (Auto) 4.4, Baso % (Auto) 1.0, Absolute Neuts (auto) 6.4, Absolute Lymphs (auto) 2.15, Nucleated RBC % 0 03/02/20 10:43: Sodium 134 L, Potassium 4.0, Chloride 102, Carbon Dioxide 27.0, Anion Gap 5, BUN 10, Creatinine 1.46 H, Estim Creat Clear Calc 67.25, Est GFR (MDRD) Af Amer 65, Est GFR (MDRD) Non-Af 53 L, BUN/Creatinine Ratio 6.8 L, Glucose 114 H, Calcium 9.6, Troponin I < 0.015 Assessment/Plan All Active Problems (Last Reviewed 12/06/19 @ 09:23 by Mila Taveras) SVT (supraventricular tachycardia) (Acute) Defibrillator discharge (Acute) The patient is a 54 year old M with history of coronary artery disease status post LAD stent, last cath in November 2019 during previous admission for unstable angina which showed patent LAD came to ED with AICD firing 5 times today. 1 AICD firing most likely secondary to SVT. Currently heart rate is controlled after Coreg 12.5 mg given in the ED. Patient is going to be admitted in PCU. Cardiac monitoring. AICD interrogation noted on ED. Cardiology consult requested. AICD setting might need to be adjusted. Serial troponin enzymes. Patient recently had 2D echo and cardiac cath in November 2019. Last heart cath in November 2019 shows widely patent LAD with nonobstructive coronary artery disease. Check magnesium and phosphorus. TSH tomorrow a.m. Interpretation Summary Mildly dilated left ventricle. The estimated ejection fraction is 30 %. Basal anteroseptal: Severely Hypokinetic. Mid-Anterior : Severely Hypokinetic. Mid-anteroseptal : Severely Hypokinetic. 2. Cardiovascular conditions: Coronary artery status post stent, peripheral arterial disease status post multiple stents in both legs, left BKA, hypercoagulable state with positive lupus anticoagulant, positive anticardiolipin antibody IgM and increased persistent level chronic heart failure with dilated cardiomyopathy, paroxysmal A. fib: Patient home medication reconciliation done. Patient is on Lovenox therapeutic dose, aspirin, Brilinta, Coreg, lisinopril, atorvastatin and furosemide 20 mg daily. 3. Left MCA ischemic stroke in #2019 4. Acute kidney injury on CKD stage II probably related to fluid shift: Hold Lasix today. IV fluid normal saline. 5. Hypertension and dyslipidemia: Fasting profile for tomorrow a.m. VTE prophylaxis: On Lovenox therapeutic dose. Living will/advanced directive/end of life care: Patient does not have living will or advanced directive. 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 After discussion of procedures involved with full code, DNR CC arrest and DNR CC, the patient and his opted for full code. Patient does want artificial life support including intubation, tube feed, ventilator and/chest compression, central venous catheter, vasopressor and DC shock if needed. Patient already has AICD Total time spent in [id number] encounter in discussion of advanced directive 16 minutes. OBSV E&M: 88901 Initial observation care L3 Procedures: 37900 Advncd Care Plan 30 Min
[2020-03-02 13:35] LABS: Magnesium 2.2 mg/dL (1.6-2.6)
[2020-03-02] MEDS: 0.9% Normal Saline 1,000 ML 75 ML IV (13:45)
[2020-03-02] MEDS: 0.9% Saline Lock 10 ML Syringe IV (13:46)
--- NOTE | 2020-03-02 14:00 | PCM.CONS.C ---
Reason for Consult Date of Consultation: 03/02/20 Reason for Consultation: Consultation requested to evaluate this patient who presented with tachycardia and palpitation History of Present Illness: The patient is a 54 year old M [well known to have CAD with a prior myocardial infarction has multiple coronary artery stent subsequently underwent aortocoronary bypass surgery Last evaluation included echocardiogram which showed LV function preserved No significant valve abnormality, no pericardial effusion His current medication has been reviewed This presentation is secondary to palpitation and tachycardia Overall cardiac exam essentially normal Review of the EKG showed sinus tachycardia with a heart rate of 10 Current lab evaluation has been noted Current chest x-ray noted as well as the medication Assessment and plan; ] Past Medical History Allergies/Adverse Reactions: Allergies Penicillins Allergy (Verified 03/02/20 12:22) Swelling adhesive tape Adverse Reaction (Verified 03/02/20 12:22) Rash oxycodone [From OxyContin] Adverse Reaction (Verified 03/02/20 12:22) Other it makes me go nuts Home Medications: Ambulatory Orders Medication Instructions Recorded albuterol sulfate 2.5 mg INHALATION Q6H PRN #75 ml 07/08/19 albuterol sulfate 90 mcg/actuation 1 - 2 puff INHALATION Q6H PRN #8.5 07/19/19 aerosol inhaler g Aspirin [Aspirin, Baby] 81 mg PO DAILY@0800 11/07/19 Carvedilol 12.5 mg PO BID 11/07/19 Lisinopril 2.5 mg PO DAILY 11/07/19 Sertraline HCl [Zoloft] 50 mg PO QDAY 11/07/19 Ticagrelor [Brilinta] 90 mg PO BID 11/07/19 Nebulizer Accessories [Sidestream See Rx Instructions .ROUTE 11/09/19 Mask] .MEDSUPPLY gabapentin 800 mg tablet 800 mg PO BID tab 11/18/19 atorvastatin 80 mg tablet 80 mg PO QHS #90 tab 12/06/19 enoxaparin 80 mg/0.8 mL 80 mg SC Q12H #8 ml 12/06/19 subcutaneous syringe furosemide 20 mg tablet 20 mg PO DAILY #90 tab 12/06/19 potassium chloride 20 mEq 20 meq PO DAILY #90 tab 12/06/19 tablet,extended release tamsulosin 0.4 mg capsule 0.4 mg PO DINNER #90 cap 12/06/19 Past Medical History (Chronic Problems): Chronic Problems (Last Reviewed 12/06/19 @ 09:23 by Mila Taveras) History of left heart catheterization (LHC) (Chronic 11/29/19) Normal Coronaries....august 2016 at [facility] CAD in [place] artery (Chronic) Paroxysmal atrial fibrillation (Chronic) HLD (hyperlipidemia) (Chronic) Acute CVA (cerebrovascular accident) (Chronic) History of coronary artery stent placement (Chronic) 3.5 x 32 mm Synergy MR BRIDGER to pLAD 07/03/19 Atherosclerosis of coronary artery of [place] heart without angina pectoris (Chronic) CHF (congestive heart failure) (Chronic) History of sudden cardiac arrest successfully resuscitated (Chronic) Chronic renal failure, stage 2 (mild) (Chronic) Depression (Chronic) History of carotid endarterectomy (Chronic) 04/22/19 at [facility] History of ischemic left MCA stroke (Chronic) 04/17/19 Debility (Chronic) due to L MCA stroke 04/17/19 Normochromic normocytic anemia (Chronic) LBBB (left bundle branch block) (Chronic) Dilated cardiomyopathy (Chronic) 27% EF on ECHO 02/18/19........non-ischemic. 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) at [facility] for severe PVD with non-healing wounds and recurrent infections LLE Revision done [place] 2018 jail current use of anticoagulant (Chronic) Patient is on Coumadin for PE Peripheral arterial disease (Chronic) BL LE's....multiple stents in both legs Hypercoagulable state (Chronic) Positive lupus anticoagulant, positive anticardiolipin anti B IgM, and increased homocystine level Surgical History: cholecystectomy, - - Left CEAy 04/22/2019 at [facility], Left BKA for severe peripheral vascular disease with nonhealing wounds, cellulitis and osteomyelitis, Multiple stents in both lower extremities secondary to peripheral vascular disease, Multiple debridements of nonhealing wounds of the left lower extremity, Cardiac PCI x 1, cholecystectomy. Psychiatric History: Anxiety, Depression - *Family History Maternal Family History: Family History (Last Reviewed 12/06/19 @ 09:23 by Mila Taveras) Mother Diabetes CVA (cerebral vascular accident) Myocardial infarction Father Cancer Kidney disease History Items: Cancer, Diabetes, Heart Disease, Renal Disease Paternal Family History: Family History (Last Reviewed 12/06/19 @ 09:23 by Mila Taveras) Mother Diabetes CVA (cerebral vascular accident) Myocardial infarction Father Cancer Kidney disease History Items: Cancer Lives: Spouse/ Significant Other Smoking Status: Former smoker Alcohol: None Drugs: None Objective: Vital Signs Temp Pulse Resp BP Pulse Ox 98.4 F 92 16 158/105 H 97 03/02/20 13:20 03/02/20 13:25 03/02/20 13:20 03/02/20 13:20 03/02/20 13:54 Oxygen Delivery Method Room Air Weight: 168 lb 6.931 oz Body Mass Index (BMI) 21.6 Finger Stick Blood Glucose 95 03/02/20 10:43: WBC 9.7, RBC 5.19, Hgb 14.1, Hct 43.7, MCV 84.2, MCH 27.2, MCHC 32.3, Plt Count 250, MPV 9.6, Immature Gran % (Auto) 0.200, Neut % (Auto) 65.8, Lymph % (Auto) 22.3, [place] % (Auto) 6.3, Eos % (Auto) 4.4, Baso % (Auto) 1.0, Absolute Neuts (auto) 6.4, Nucleated RBC % 0 03/02/20 10:43: Sodium 134 L, Potassium 4.0, Chloride 102, Carbon Dioxide 27.0, Anion Gap 5, BUN 10, Creatinine 1.46 H, Est GFR (MDRD) Af Amer 65, Est GFR (MDRD) Non-Af 53 L, BUN/Creatinine Ratio 6.8 L, Glucose 114 H, Calcium 9.6, Troponin I < 0.015 03/02/20 10:43: Magnesium 2.2 Rhythm: EKG: ECHO: Stress Test: Cardiac Cath: PCI: CT Surgery: Holter monitor: EPS: PPM: CXR: Chest CT Scan:
[2020-03-02] MEDS: Enoxaparin 80 MG/0.8 ML Syringe SC (14:45)
--- NOTE | 2020-03-02 15:13 | CHAPLAIN ---
Type of Pastoral Visit _x__ Initial Visit ___ Follow-up Visit ___ On-call Visit ___ General Patient Visit ___ Spiritual Assessment ___ Family Conference ___ Bereavement ___ Rapid Response ___ Code Blue ___ Other (describe below) Pastoral Care Referral From _x__ Patient ___ Family ___ Nurse ___ Physician ___ Explosives Detonator ___ Transitional Nurse ___ Other (describe below) Sacrament/Intervention _x__ Active listening ___ Anointing ___ Yazidism ___ Bereavement ___ Communion ___ Misty exploration ___ ___ Life review _x__ Prayer ___ Reconciliation ___ Sacrament of Sick _x__ Supportive presence ___ Wedding ___ Other (describe below) Pastoral Comments offer of support given while in ED; spouse also with patient and given opportunity for support and listening care; pt has been seen before in this hospital by this exhibits manager; pt is known to have strong support from family and misty; pt has always been open to spiritual care and today was no different; pt would like future visits during admission
[2020-03-02] MEDS: Tamsulosin HCl 0.4 MG Capsule PO (18:51)
[2020-03-02] MEDS: Carvedilol 12.5 MG Tablet PO (20:53)
[2020-03-02] MEDS: Gabapentin 800 MG Tablet PO (20:53)
[2020-03-02] MEDS: TICAGRELOR 90 MG TABLET PO (20:53)
[2020-03-02] MEDS: Atorvastatin Calcium 80 MG Tablet PO (20:53)
[2020-03-02] MEDS: Acetaminophen 325 MG Tablet 650 MG PO (20:59)
--- NOTE | 2020-03-02 21:39 | NURSING ---
Pt transfered via [employer] . report given
--- NOTE | 2020-03-03 07:02 | DS.PCM_ITS ---
Discharge Date and Diagnosis Date of Admission: 03/02/20 Date of Discharge: 03/02/20 - Primary Discharge Diagnosis Acute Problems: AICD firing most likely secondary to SVT - Secondary Discharge Diagnosis Chronic Problems: Chronic Problems (Last Reviewed 12/06/19 @ 09:23 by Mila Taveras) History of left heart catheterization (LHC) (Chronic 11/29/19) Normal Coronaries....august [address] [facility] CAD in [place] artery (Chronic) Paroxysmal atrial fibrillation (Chronic) HLD (hyperlipidemia) (Chronic) Acute CVA (cerebrovascular accident) (Chronic) History of coronary artery stent placement (Chronic) 3.5 x 32 mm Synergy MR BRIDGER to pLAD 07/03/19 Atherosclerosis of coronary artery of [place] heart without angina pectoris (Chronic) CHF (congestive heart failure) (Chronic) History of sudden cardiac arrest successfully resuscitated (Chronic) Chronic renal failure, stage 2 (mild) (Chronic) Depression (Chronic) History of carotid endarterectomy (Chronic) 04/22/19 at [facility] History of ischemic left MCA stroke (Chronic) 04/17/19 Debility (Chronic) due to L MCA stroke 04/17/19 Normochromic normocytic anemia (Chronic) LBBB (left bundle branch block) (Chronic) Dilated cardiomyopathy (Chronic) 27% EF on ECHO 02/18/19........non-ischemic. normal coronaries on cath August [address] 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 Patient heart rate was controlled with Coreg 12.5 mg twice daily. AICD interrogation was done in ED. I discussed with the maintenance analyst Dr. enriquez and he reviewed the EKGs. He suggested to transfer the patient to [facility] to be evaluated by Dr. David Soliz. His rhythm was supraventricular tachycardia and heart rate was controlled. Needs ablation of abnormal rhythm. Serial troponins were mildly elevated and indeterminate range. First 1 was negative, second 0.28, third 2.36. Patient recently had 2D echo and cardiac cath in November 2019. Last heart cath in November 2019 shows widely patent LAD with nonobstructive coronary artery disease. Check magnesium and phosphorus. Magnesium 2.2. 2 D echo in November 2019 interpretation Summary Mildly dilated left ventricle. The estimated ejection fraction is 30 %. Basal anteroseptal: Severely Hypokinetic. Mid-Anterior : Severely Hypokinetic. Mid-anteroseptal : Severely Hypokinetic. [facility] transfer line was called and discussed with the grant coordinator and was accepted in telemetry bed. Patient was transferred to [facility]. [] Subjective: Patient was seen and examined on the day of discharge. stucco laborer shows sinus rhythm and heart rate was controlled to 88/min. It was regular. Rest of physical finding remains the same. - Physical Exam Vitals/I&O's: Vital Signs Temp Pulse Resp BP Pulse Ox 98.5 F 88 17 161/91 H 99 03/02/20 21:20 03/02/20 21:20 03/02/20 21:20 03/02/20 21:20 03/02/20 21:20 Oxygen Delivery Method Room Air Weight: 168 lb 6.931 oz Body Mass Index (BMI) 21.6 Finger Stick Blood Glucose 95 Intake and Output for Last 24 Hours 03/01/20 03/02/20 03/03/20 23:59 23:59 23:59 Intake Total 808.75 / 808.75 Balance 808.75 / 808.75 Laboratory Results 03/02/20 10:43: WBC 9.7, RBC 5.19, Hgb 14.1, Hct 43.7, MCV 84.2, MCH 27.2, MCHC 32.3, RDW Std Deviation 52.5 H, RDW Coeff of Lawson 17.5 H, Plt Count 250, MPV 9.6, Immature Gran % (Auto) 0.200, Neut % (Auto) 65.8, Lymph % (Auto) 22.3, [place] % (Auto) 6.3, Eos % (Auto) 4.4, Baso % (Auto) 1.0, Absolute Neuts (auto) 6.4, Absolute Lymphs (auto) 2.15, Nucleated RBC % 0 03/02/20 10:43: Sodium 134 L, Potassium 4.0, Chloride 102, Carbon Dioxide 27.0, Anion Gap 5, BUN 10, Creatinine 1.46 H, Estim Creat Clear Calc 67.25, Est GFR (MDRD) Af Amer 65, Est GFR (MDRD) Non-Af 53 L, BUN/Creatinine Ratio 6.8 L, Glucose 114 H, Calcium 9.6, Troponin I < 0.015 03/02/20 10:43: Magnesium 2.2 03/02/20 14:13: Troponin I 0.280 H 03/02/20 16:28: Troponin I 0.363 H Home Medications: Medications to take at Discharge albuterol sulfate 2.5 mg INHALATION Q6H PRN #75 ml 07/08/19 albuterol sulfate 90 mcg/actuation aerosol inhaler 1 - 2 puff INHALATION Q6H PRN #8.5 g 07/19/19 Aspirin [Aspirin, Baby] 81 mg PO DAILY@0800 11/07/19 Carvedilol 12.5 mg PO BID 11/07/19 Lisinopril 2.5 mg PO DAILY 11/07/19 Sertraline HCl [Zoloft] 50 mg PO QDAY 11/07/19 Ticagrelor [Brilinta] 90 mg PO BID 11/07/19 Nebulizer Accessories [Sidestream Mask] See Rx Instructions .ROUTE .MEDSUPPLY 11/09/19 gabapentin 800 mg tablet 800 mg PO BID tab 11/18/19 atorvastatin 80 mg tablet 80 mg PO QHS #90 tab 12/06/19 enoxaparin 80 mg/0.8 mL subcutaneous syringe 80 mg SC Q12H #8 ml 12/06/19 furosemide 20 mg tablet 20 mg PO DAILY #90 tab 12/06/19 potassium chloride 20 mEq tablet,extended release 20 meq PO DAILY #90 tab 12/06/19 tamsulosin 0.4 mg capsule 0.4 mg PO DINNER #90 cap 12/06/19 Primary Care Physician: Dharmesh Alonso MD [Primary Care Provider] - Medical Necessity - Tobacco Use Smoking Status: Former smoker Meaningful Use Info Meaningful Use Diagnoses (Choose all that apply): None applicable OBSV E&M: 11696 Observation care discharge
== END 2020-03-02 21:35 | disposition short-term general hospital (02) ==
LOC: ED 12:38 → PCU 13:16
PROVIDERS: Admitting Provider Internal Medicine; Emergency Provider Emergency Medicine; PCP Internal Medicine; Visit Provider Internal Medicine
DX: I47.1 Supraventricular tachycardia (principal); Z95.810 Presence of automatic (implantable) cardiac defibrillator; I25.10 Atherosclerotic heart disease of native coronary artery without angina pectoris; I73.9 Peripheral vascular disease, unspecified; E78.5 Hyperlipidemia, unspecified; I48.0 Paroxysmal atrial fibrillation; Z23 Encounter for immunization; I44.7 Left bundle-branch block, unspecified; I48.92 Unspecified atrial flutter; I13.0 Hypertensive heart and chronic kidney disease with heart failure and stage 1 through stage 4 chronic kidney disease, or unspecified chronic kidney disease; I50.22 Chronic systolic (congestive) heart failure; F32.9 Major depressive disorder, single episode, unspecified; N18.2 Chronic kidney disease, stage 2 (mild); M19.90 Unspecified osteoarthritis, unspecified site; F41.9 Anxiety disorder, unspecified; Z86.74 Personal history of sudden cardiac arrest; Z95.5 Presence of coronary angioplasty implant and graft; Z89.512 Acquired absence of left leg below knee; Z79.899 Other long term (current) drug therapy; Z79.82 Long term (current) use of aspirin; D68.62 Lupus anticoagulant syndrome; Z86.711 Personal history of pulmonary embolism; Z86.718 Personal history of other venous thrombosis and embolism
CPT/HCPCS: 71045; 80048; 83735; 84484; 85025; 93005; 96361; 96372; 96374; 97802; 99218; 99285; J7030; 90686; A4216; G0378

== ENCOUNTER 2020-07-08 20:37 | Emergency (ER) | payer BC, SELFPAY ==
[2019-07-04 09:02] VITALS: BMI 29.8
[2020-03-02 13:28] VITALS: BMI 21.6
[2020-07-08 20:39] VITALS: BP 108/66; PULSE 104; RESP 16; TEMP 36.1; O2SAT 98; BMI 22.4
--- NOTE | 2020-07-08 20:55 | EKG12_ITS ---
Test Reason : DYSRHYTHMIA Blood Pressure : / mmHG Vent. Rate : 097 BPM Atrial Rate : 097 BPM P-R Int : 000 ms QRS Dur : 174 ms QT Int : 446 ms P-R-T Axes : 047 -31 009 degrees QTc Int : 566 ms Ventricular-paced rhythm Abnormal ECG Confirmed by NGUYEN BUSH, NICHOL ([id number]), mapping editor PAULA PERKINS ([id number]) on 07/10/2020 8:38:23 AM Referred By: MIKE Confirmed By:SWETHA CEDILLO MD
--- NOTE | 2020-07-08 20:56 | CT_ITS ---
STUDY: CTA CHEST REASON FOR EXAM: Male, 54 years old. COUGH, SOB, COVID ON , PACER, HTN, DC, COPD, CHF, STENTS, RENAL DZ, CVA, BLOOD DISORDER RADIATION DOSAGE (If Supplied By Facility): CTDIvol = ( 10.33 ) mGy, DLP = ( 407.77 ) mGycm TECHNIQUE: The examination was performed with the intravenous administration of IV 75mL Isovue-370. Post-processing of the angiographic images was performed, with multiplanar reformation and 3D reconstruction. Individualized dose optimization techniques were used for this CT. COMPARISON: 11/29/19 FINDINGS: Normal enhancement of the main pulmonary artery and right and left pulmonary arteries. Normal enhancement of the bilateral peripheral pulmonary arteries. There is no demonstrated pulmonary embolism. No thoracic aortic aneurysm or dissection. Again noted are atherosclerotic plaques in the descending aorta. There is no demonstrated aortic dissection. Normal heart and pericardium. There is a pacemaker in place. There are coronary artery calcifications noted. Normal mediastinum. Normal hilar regions. Normal visualized trachea and bronchi. The lungs are well expanded. Normal pulmonary parenchyma. Normal pleura. Normal chest wall structures. Normal osseous structures. Normal visualized upper abdomen. CT/CTA Chest W/WO Contrast IMPRESSION: No evidence of pulmonary embolus. No evidence of thoracic aortic aneurysm or dissection. Stable atherosclerotic disease. No pulmonary infiltrates or pleural effusions. Coronary artery disease. Electronically Signed: Antione Ventura MD at 22:10 EST Tel , Service support ,
--- NOTE | 2020-07-08 21:07 | ED.DCSUM_ITS ---
History of Present Illness Chief Complaint: Cough Narrative: Patient had Covid 3 weeks ago. He is significantly improved however over the past 2 to 3 days he has had a gradual onset of shortness of breath, subjective fevers and a productive cough. He has generalized weakness. He has no lower extremity edema no calf pain. He has no back pain or tearing sensation. He does have a defibrillator, he noticed some chest tightness but no obvious chest pain. Past medical history: Hypertension, hypercholesterolemia, vasculopathy, CHF with pacemaker and defibrillator, left below the knee amputation secondary to vasculopathy Medications: Reviewed Social history: Continues to smoke Review of systems: All systems negative except as indicated General: Denies: Fever Eyes: Denies: Visual changes - bilaterally ENT: Denies: Rhinorrhea, Sore throat Cardiovascular: Denies: Chest pain Respiratory: Shortness of breath as in HPI, some chest tightness. Cough that it is slightly productive Gastrointestinal: Denies: Abdominal pain, Nausea, Vomiting Genitourinary: Denies: Dysuria Musculoskeletal: Denies: Myalgias Skin: Denies: Rash Neurological: Denies: Headache, no focal weakness Psych: Reports: negative Hematologic: Denies: Easy bruising, Easy bleeding Physical exam General: Well nourished, Well developed, No Acute Distress Head: Normocephalic, Atraumatic Eyes: Conjunctiva not pale ENT: Moist mucous membranes Neck: Supple, Nontender, No lymphadenopathy Cardiovascular: Regular rate, Regular rhythm Respiratory: He is speaking in full sentences he is not tachypneic, his lungs are mostly clear and on hear any wheezing or rales. Abdomen: Soft, Nontender, Nondistended Back: Nontender, Normal Inspection. Negative for: CVA tenderness Extremities: Left below the knee amputation which is old. Otherwise right lower extremity has no edema. No calf pain Skin: Normal color, No rash Neurological: Alert, Normal Strength, Normal Sensation Psychological: Normal affect Past Medical History - Allergies and Home Meds Allergies/Adverse Reactions: Allergies pollen extracts Allergy (Intermediate, Verified 07/08/20 20:42) unknown Penicillins Allergy (Verified 07/08/20 20:42) Swelling adhesive tape Adverse Reaction (Verified 07/08/20 20:42) Rash oxycodone [From OxyContin] Adverse Reaction (Verified 07/08/20 20:42) Other it makes me go nuts Primary Care Physician: Dharmesh Alonso MD [Primary Care Provider] - Surgical History: cholecystectomy, - - Left CEAy 04/22/2019 at [facility], Left BKA for severe peripheral vascular disease with nonhealing wounds, cellulitis and osteomyelitis, Multiple stents in both lower extremities secondary to peripheral vascular disease, Multiple debridements of nonhealing wounds of the left lower extremity, Cardiac PCI x 1, cholecystectomy. Smoking Status: Former smoker - Family History Maternal Family History: Family History (Last Reviewed 12/06/19 @ 09:23 by Mila Taveras) Mother Diabetes CVA (cerebral vascular accident) Myocardial infarction Father Cancer Kidney disease Family History: Reports: Cancer, Diabetes, Heart Disease, Renal Disease Paternal Family History: Family History (Last Reviewed 12/06/19 @ 09:23 by Mila Taveras) Mother Diabetes CVA (cerebral vascular accident) Myocardial infarction Father Cancer Kidney disease Family History: Reports: Cancer Physical Exam Vital Signs/Narrative: Vital Signs Temp Pulse Resp BP Pulse Ox 07/08/20 20:39 97 F L 104 H 16 108/66 98 Diagnostic/Tx/Re-eval - Rhythm Strip Rate: 94 - EKG Initial EKG Interpretation: - - Paced rhythm with a rate of 97. No obvious abnormalities. Otherwise normal EKG Interpreted by emergency doctor - Medical Decision Making Patient has an unremarkable emergency department work-up. He appears well. No signs of infection no signs of PE, I will discharge him with reassurance he is 3 weeks post Covid he likely still has some symptoms. If anything worsens he is to return. ED Disposition - Plan for ED Patient: Disposition: Home or Assisted Living Diagnosis: Weakness, COVID-19 Instructions: ED Weakness (Uncertain Cause), Coronavirus Disease 2019 (COVID- 19): Caring for Yourself or Others Referrals: Dharmesh Alonso MD [Primary Care Provider] - 2 Days
[2020-07-08 21:19] VITALS: BP 108/66; PULSE 104; RESP 16; TEMP 36.1; O2SAT 98
[2020-07-08 21:25] LABS: Absolute Lymphocyte Count 4.27 X10^3/uL (0.83-4.51); Basophil# 0.11 X10^3/uL; Basophil% 1.3 % (0-1); Eosinophil# 0.83 X10^3/uL; Eosinophils% 9.5 % (0-5); Hematocrit 42.5 % (40-54); Hemoglobin 13.7 g/dL (13.0-16.5); Lymphocyte # 4.27 X10^3/ul (4.0); Lymphocyte % 48.7 % (19-41); Mean Corp Hgb Conc 32.2 g/dL (32-36); Mean Corpuscular Hgb 28.1 pg (27.0-32.0); Mean Corpuscular Volume 87.3 fL (80-94); Mean Platelet Vol. 9.3 fl (6.2-12.0); Monocyte# 0.56 X10^3/uL; Monocyte% 6.4 % (0-10); NRBC Flagged by Analyzer 0 % (0-5); Neutrophil # 2.97 X10^3/uL (2.7-7.7); Neutrophil % 33.9 % (47-70); POSITIVE MORPHOLOGY YES; Platelet Count 460 K/mm3 (150-450); RBC Distribution Width CV 20.6 % (11.6-14.6); RBC Distribution Width SD 62.4 fl (35.1-43.9); Red Blood Count 4.87 M/mm3 (4.6-6.2); White Blood Count 8.8 K/mm3 (4.4-11.0)
--- NOTE | 2020-07-08 21:27 | ED.RN ---
PT HAD COVID 3 WEEKS AGO, NO ISOLATION IS NEEDED. PT IS NON COMPLIANT WITH HIS MEDICATIONS.
[2020-07-08 21:29] LABS: Differential Indicated SCAN CRITERIA MET
[2020-07-08 21:44] LABS: Anion Gap 8 (5-15); BUN 9 mg/dL (7-18); BUN/Creat Ratio 6.6 RATIO (10-20); Calcium,Total 8.7 mg/dL (8.5-10.1); Chloride 105 mmol/L (98-107); Creatinine, Serum 1.37 mg/dL (0.70-1.30); EST Glomerular Filtration Rate 57 mL/min (>60); Est Glom Filt Rate - Afr Amer 69 mL/min (>60); Estimated Creatinine Clearance 69.21 ml/min; Glucose 79 mg/dL (74-106); Potassium 4.2 mmol/L (3.5-5.1); Sodium Level 137 mmol/L (136-145)
[2020-07-08 22:01] VITALS: BP 103/68; PULSE 91; RESP 16; TEMP 36.1; O2SAT 98
[2020-07-08 22:30] LABS: Differential Comment SCANNED
[2020-07-08 22:50] VITALS: BP 90/59; PULSE 96; RESP 15; O2SAT 96
== END 2020-07-08 23:02 | disposition home or self-care (01) ==
PROVIDERS: Emergency Provider Emergency Medicine; PCP Internal Medicine
DX: R53.1 Weakness (principal); U07.1 COVID-19; E78.00 Pure hypercholesterolemia, unspecified; I25.10 Atherosclerotic heart disease of native coronary artery without angina pectoris; I11.0 Hypertensive heart disease with heart failure; I50.9 Heart failure, unspecified; I73.9 Peripheral vascular disease, unspecified; J44.9 Chronic obstructive pulmonary disease, unspecified; F17.200 Nicotine dependence, unspecified, uncomplicated; Z82.49 Family history of ischemic heart disease and other diseases of the circulatory system; Z82.3 Family history of stroke; Z83.3 Family history of diabetes mellitus; Z88.0 Allergy status to penicillin; Z88.5 Allergy status to narcotic agent; Z89.512 Acquired absence of left leg below knee; Z90.49 Acquired absence of other specified parts of digestive tract; Z95.0 Presence of cardiac pacemaker
CPT/HCPCS: 71275; 80048; 84484; 85025; 93005; 99284; J7030; Q9967; A4216

== ENCOUNTER → 2020-07-24 08:27 | Outpatient (CLI) | payer BC, SELFPAY ==
[2019-07-04 09:02] VITALS: BMI 29.8
[2020-07-24 08:04] VITALS: BMI 22.4
[2020-07-24 13:44] LABS: Cholesterol 131 mg/dL (200); High Density Lipoprotein 37 mg/dL; Triglycerides 146 mg/dL; Very Low Density Lipoprotein 29 mg/dL (5-40)
== END ==
LOC: BIMLAB 08:29
PROVIDERS: PCP Internal Medicine; Referring Provider Internal Medicine; Visit Provider Internal Medicine
DX: E78.5 Hyperlipidemia, unspecified (principal); I73.9 Peripheral vascular disease, unspecified
CPT/HCPCS: 36415; 80061

== ENCOUNTER 2020-08-10 18:41 | Observation (INO) | payer BC, SELFPAY ==
[2019-07-04 09:02] VITALS: BMI 29.8
[2020-07-24 08:04] VITALS: BMI 22.4
[2020-08-10] VITALS (8 sets, daily range): BP systolic 84–106; BP diastolic 54–72; PULSE 76–87; RESP 12–18; TEMP 36.4–36.8; O2SAT 97–100; BMI 22.6; BMI 22.8; BMI 22.9
--- NOTE | 2020-08-10 18:43 | EKG12_ITS ---
Test Reason : CP Blood Pressure : / mmHG Vent. Rate : 085 BPM Atrial Rate : 085 BPM P-R Int : 124 ms QRS Dur : 144 ms QT Int : 430 ms P-R-T Axes : 065 069 087 degrees QTc Int : 511 ms Atrial-sensed ventricular-paced rhythm Abnormal ECG Confirmed by JIN BUSH, MAHSA ([id number]), manager editorial PAULA PERKINS ([id number]) on 08/12/2020 10:15:12 AM Referred By: CAITIE Confirmed By:MAHSA ABDI MD
--- NOTE | 2020-08-10 18:50 | RAD_ITS ---
STUDY: X-RAY CHEST REASON FOR EXAM: Male, 54 years old. chest pain TECHNIQUE: Single AP portable view of the chest. COMPARISON: 03/02/2020 FINDINGS: Left subclavian triple lead AICD which is unchanged. The lungs are clear and expanded. There is no demonstrated pleural abnormality. Normal size heart. Normal mediastinum and edgar. Normal visualized pulmonary arteries. Normal visualized aortic arch and descending thoracic aorta. Normal visualized thoracic spine. Normal visualized ribs, clavicles, and shoulders. There is no demonstrated abnormality of the visualized soft tissue structures of the upper abdomen. RAD/Chest 1 View (Portable) IMPRESSION: No active disease. Electronically Signed: Palmer Javier MD at 19:10 EDT Tel , Service support ,
[2020-08-10 18:51] LABS: Absolute Lymphocyte Count 3.33 X10^3/uL (0.83-4.51); Absolute Neutrophil Count 3.2 X10^3/uL (2.0-7.7); Basophil# 0.08 X10^3/uL; Eosinophil# 0.49 X10^3/uL; Eosinophils% 6.2 % (0-5); Hematocrit 38.3 % (40-54); Hemoglobin 12.4 g/dL (13.0-16.5); Lymphocyte # 3.33 X10^3/ul (4.0); Lymphocyte % 41.8 % (19-41); Mean Corp Hgb Conc 32.4 g/dL (32-36); Mean Corpuscular Hgb 29.3 pg (27.0-32.0); Mean Corpuscular Volume 90.5 fL (80-94); Mean Platelet Vol. 9.1 fl (6.2-12.0); Monocyte# 0.86 X10^3/uL; Monocyte% 10.8 % (0-10); NRBC Flagged by Analyzer 0 % (0-5); Neutrophil # 3.17 X10^3/uL (2.7-7.7); Neutrophil % 39.8 % (47-70); Platelet Count 295 K/mm3 (150-450); RBC Distribution Width CV 19.6 % (11.6-14.6); RBC Distribution Width SD 64.6 fl (35.1-43.9); Red Blood Count 4.23 M/mm3 (4.6-6.2)
[2020-08-10 19:00] LABS: International Normalized Ratio 1.1; Prothrombin Time (Protime)PT. 13.8 SECONDS (11.7-14.9)
[2020-08-10 19:01] LABS: Partial Thromboplast Time 28.2 Seconds (24.1-36.2)
[2020-08-10 19:10] LABS: Anion Gap 8 (5-15); BUN 11 mg/dL (7-18); BUN/Creat Ratio 8.9 RATIO (10-20); Calcium,Total 8.3 mg/dL (8.5-10.1); Chloride 102 mmol/L (98-107); Creatinine, Serum 1.23 mg/dL (0.70-1.30); EST Glomerular Filtration Rate 65 mL/min (>60); Est Glom Filt Rate - Afr Amer 79 mL/min (>60); Estimated Creatinine Clearance 80.02 ml/min; Glucose 92 mg/dL (74-106); Magnesium 2.5 mg/dL (1.6-2.6); Potassium 3.9 mmol/L (3.5-5.1); Sodium Level 134 mmol/L (136-145)
[2020-08-10 19:18] LABS: BNP,B-Type NATRIURETIC PEPTIDE 97.2 pg/mL (0-100)
--- NOTE | 2020-08-10 19:33 | ED.VIS.GEN ---
History of Present Illness Chief Complaint: Chest Pain Informant: Patient Onset: Today Context: Sudden Onset Timing: Continuous Current Severity: Moderate Maximum Severity: Moderate Narrative: Patient is a 54-year-old male with medical history significant for coronary vascular disease with stents, history of cardiac arrest with AICD defibrillator, history of prior stroke with carotid endarterectomy, who presents to the emergency department chest pain. Patient states he was in his normal state of health. He was talking to his on the phone. He states he had sudden onset chest pain. He did take nitro which did seem to improve the pain. On arrival, he states that his pain is resolved. Patient did undergo heart catheterization in November without intervention. He states his been compliant with his medications. He has had no recent chest pain or exertional dyspnea. The patient apparently had some change in mental status for squad, but on arrival is awake and alert. He was given 2 mg of Narcan by squad with no response. He states that he has not been drinking. Prior similar symptoms: Yes Recent Illness/Hospitalization: Yes Past Medical History - Allergies and Home Meds Allergies/Adverse Reactions: Allergies pollen extracts Allergy (Intermediate, Verified 08/10/20 18:43) unknown Penicillins Allergy (Verified 08/10/20 18:43) Swelling adhesive tape Adverse Reaction (Verified 08/10/20 18:43) Rash oxycodone [From OxyContin] Adverse Reaction (Verified 08/10/20 18:48) it makes me go nuts it makes me go nuts Primary Care Physician: Dharmesh Alonso MD [Primary Care Provider] - Prior records reviewed: Yes Past Medical History: - - Coronary vascular disease, prior stroke, peripheral vascular disease, prior [place] Surgical History: cholecystectomy, - - Left CEAy 04/22/2019 at [facility], Left BKA for severe peripheral vascular disease with nonhealing wounds, cellulitis and osteomyelitis, Multiple stents in both lower extremities secondary to peripheral vascular disease, Multiple debridements of nonhealing wounds of the left lower extremity, Cardiac PCI x 1, cholecystectomy. Smoking Status: Current every day smoker - Family History Maternal Family History: Family History (Last Reviewed 07/24/20 @ 08:02 by Amairani Pascual) Mother Diabetes CVA (cerebral vascular accident) Myocardial infarction Father Cancer Kidney disease Family History: Reports: Cancer, Diabetes, Heart Disease, Renal Disease Paternal Family History: Family History (Last Reviewed 07/24/20 @ 08:02 by Amairani Pascual) Mother Diabetes CVA (cerebral vascular accident) Myocardial infarction Father Cancer Kidney disease Family History: Reports: Cancer Review of Systems General: Denies: Chills, Fever, Sweats Eyes: Denies: Visual changes - bilaterally, Diplopia ENT: Denies: Rhinorrhea, Sore throat Cardiovascular: Reports: Chest pain. Denies: Palpitations Respiratory: Reports: Dyspnea. Denies: Cough, Dyspnea on exertion Gastrointestinal: Denies: Abdominal pain, Nausea, Vomiting, Diarrhea, Melena, Hematochezia Genitourinary: Denies: Dysuria, Hematuria, Frequency Musculoskeletal: Denies: Back pain, Extremity Pain Skin: Denies: Rash, Wounds Neurological: Denies: Headache, Weakness, Numbness Physical Exam Vital Signs/Narrative: Vital Signs Temp Pulse Resp BP Pulse Ox 08/10/20 19:21 76 16 95/68 100 08/10/20 18:54 97 08/10/20 18:53 82 12 08/10/20 18:43 98.2 F 87 15 106/72 99 Inital Vital Signs reviewed: Yes General: Well nourished, Well developed, No Acute Distress Head: Normocephalic, Atraumatic Eyes: Perrl, EOMI ENT: Moist mucous membranes, No rhinorrhea Neck: Supple, Nontender Cardiovascular: Regular rate, Regular rhythm, No murmurs Respiratory: No distress, CTA bilaterally, Chest nontender Abdomen: Soft, Nontender, Nondistended, Normal bowel sounds Back: Nontender, Normal Inspection Extremities: Nontender, No edema Skin: Normal color, No rash Neurological: Alert, Oriented x3, Cranial nerves II-XII grossly intact, Normal Strength, Normal Sensation Psychological: Normal affect, Normal Mood Diagnostic/Tx/Re-eval Clinical Impression(s) from Imaging Studies Chest X-Ray 08/10/20 18:50 IMPRESSION: No active disease. Electronically Signed: Palmer Javier MD at 19:10 EDT Tel , Service support , Abnormal Lab Results 08/10/20 08/10/20 08/10/20 18:45 18:45 18:45 WBC 8.0 RBC 4.23 L Hgb 12.4 L Hct 38.3 L MCV 90.5 MCH 29.3 MCHC 32.4 RDW Std Deviation 64.6 H RDW Coeff of Lawson 19.6 H Plt Count 295 MPV 9.1 Immature Gran % (Auto) 0.400 Neut % (Auto) 39.8 L Lymph % (Auto) 41.8 H [place] % (Auto) 10.8 H Eos % (Auto) 6.2 H Baso % (Auto) 1.0 Absolute Neuts (auto) 3.2 Absolute Lymphs (auto) 3.33 Nucleated RBC % 0 PT 13.8 INR 1.1 APTT 28.2 Sodium 134 L Potassium 3.9 Chloride 102 Carbon Dioxide 24.0 Anion Gap 8 BUN 11 Creatinine 1.23 Estim Creat Clear Calc 80.02 Est GFR (MDRD) Af Amer 79 Est GFR (MDRD) Non-Af 65 BUN/Creatinine Ratio 8.9 L Glucose 92 Calcium 8.3 L Magnesium 2.5 Troponin I < 0.015 B-Natriuretic Peptide Ethyl Alcohol 08/10/20 08/10/20 18:45 18:45 WBC RBC Hgb Hct MCV MCH MCHC RDW Std Deviation RDW Coeff of Lawson Plt Count MPV Immature Gran % (Auto) Neut % (Auto) Lymph % (Auto) [place] % (Auto) Eos % (Auto) Baso % (Auto) Absolute Neuts (auto) Absolute Lymphs (auto) Nucleated RBC % PT INR APTT Sodium Potassium Chloride Carbon Dioxide Anion Gap BUN Creatinine Estim Creat Clear Calc Est GFR (MDRD) Af Amer Est GFR (MDRD) Non-Af BUN/Creatinine Ratio Glucose Calcium Magnesium Troponin I B-Natriuretic Peptide 97.2 Ethyl Alcohol 287.0 - Rhythm Strip Rhythm Strip: Paced Rate: 90 Ectopy: None - EKG Initial EKG Interpretation: Paced, Non-Specific ST Changes Prior: Unchanged - Medical Decision Making Patient presents with chest pain. He does have significant history of coronary vascular disease. EKG was obtained on arrival. It was paced rhythm. Was unchanged from prior. He had already taken 4 nitro and 4 baby aspirin. The patient did smell of alcohol congeners. He was also aggressive towards nursing. Metabolic work-up was pursued. Cardiac enzymes were negative. Chest x-ray reviewed by both myself and the radiologist shows no evidence of acute decompensated heart failure, pneumothorax, or other dangerous process. The patient's initial cardiac enzymes are negative. His alcohol level was elevated. When I discussed this with the patient, he is still very evasive and states he did not drink. My suspicion for acute cardiac cause of his pain is low, but the patient does have rather significant risk factor. I discussed with the hospitalist and he will be admitted to observation for cardiac rule out. Impression 1. Chest pain with history of coronary vascular disease 2. Alcohol Intoxication ED Disposition - Plan for ED Patient: Referrals: Dharmesh Alonso MD [Primary Care Provider] -
--- NOTE | 2020-08-10 19:46 | PCM.HP.STD ---
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 (6) Depression Status: Chronic Qualifiers: Depression Type: unspecified Qualified Code(s): F32.9 - Major depressive disorder, single episode, unspecified (7) History of ischemic left MCA stroke Status: Chronic Comment: 04/17/19 (8) Debility Status: Chronic Comment: due to L MCA stroke 04/17/19 (9) Essential hypertension Status: Chronic (10) skilled nursing current use of anticoagulant Status: Chronic Comment: Patient is on Coumadin for PE (11) Peripheral arterial disease Status: Chronic Comment: BL LE's....multiple stents in both legs (12) Chest pain Status: Acute History of Present Illness Date of Admission: 08/10/20 Chief Complaint: Chest pain The patient is a 54 year old male with a significant past medical history of coronary artery disease status post stenting, history of sudden cardiac arrest, status post placement of internal defibrillator and pacemaker who presents to the emergency room with chest pain. The patient states this pain began earlier this afternoon while he was resting and his significant pain just beneath his defibrillator battery site. He does not associate the pain with shortness of breath and it does not radiate elsewhere. The patient denied drinking to the emergency room physician despite an alcohol content level of 287. In review the patient had a normal heart catheterization in November 2019. It was felt due to his high risk history that the patient would be admitted for observation to rule out heart disease as the cause of his chest pain. Past Medical History Past Medical History (Chronic Problems): Chronic Problems (Last Reviewed 07/24/20 @ 08:02 by Amairani Pascual) SVT (supraventricular tachycardia) (Chronic) History of left heart catheterization (LHC) (Chronic 11/29/19) Normal Coronaries....august 2016 at [facility] CAD in [place] artery (Chronic) Paroxysmal atrial fibrillation (Chronic) HLD (hyperlipidemia) (Chronic) Acute CVA (cerebrovascular accident) (Chronic) History of coronary artery stent placement (Chronic) 3.5 x 32 mm Synergy MR BRIDGER to pLAD 07/03/19 Atherosclerosis of coronary artery of [place] heart without angina pectoris (Chronic) CHF (congestive heart failure) (Chronic) History of sudden cardiac arrest successfully resuscitated (Chronic) Chronic renal failure, stage 2 (mild) (Chronic) Depression (Chronic) History of ischemic left MCA stroke (Chronic) 04/17/19 Debility (Chronic) due to L MCA stroke 04/17/19 Normochromic normocytic anemia (Chronic) LBBB (left bundle branch block) (Chronic) Dilated cardiomyopathy (Chronic) 27% EF on ECHO 02/18/19........non-ischemic. normal coronaries on cath August 2016 at [facility] Essential hypertension (Chronic) [employer] current use of anticoagulant (Chronic) Patient is on Coumadin for PE Peripheral arterial disease (Chronic) BL LE's....multiple stents in both legs Hypercoagulable state (Chronic) Positive lupus anticoagulant, positive anticardiolipin anti B IgM, and increased homocystine level Medical History: Medical History (Last Reviewed 07/24/20 @ 08:02 by Amairani Pascual) SVT (supraventricular tachycardia) (Chronic) I47.1 Defibrillator discharge (Resolved) Z45.02 Paroxysmal atrial fibrillation (Chronic) I48.0 HLD (hyperlipidemia) (Chronic) E78.5 Acute CVA (cerebrovascular accident) (Chronic) I63.9 Atherosclerosis of coronary artery of [place] heart without angina pectoris (Chronic) I25.10 CHF (congestive heart failure) (Chronic) I50.9 History of sudden cardiac arrest successfully resuscitated (Chronic) Z86.74 Chronic renal failure, stage 2 (mild) (Chronic) N18.2 Depression (Chronic) F32.9 History of ischemic left MCA stroke (Chronic) Z86.73 04/17/19 Debility (Chronic) R53.81 due to L MCA stroke 04/17/19 Normochromic normocytic anemia (Chronic) D64.9 Dilated cardiomyopathy (Chronic) I42.0 27% EF on ECHO 02/18/19........non-ischemic. normal coronaries on cath August 2016 at [facility] Essential hypertension (Chronic) I10 [employer] current use of anticoagulant (Chronic) Z79.01 Patient is on Coumadin for PE Peripheral arterial disease (Chronic) I73.9 BL LE's....multiple stents in both legs Hypercoagulable state (Chronic) D68.59 Positive lupus anticoagulant, positive anticardiolipin anti B IgM, and increased homocystine level Arthritis M19.90 Vascular disease I99.9 Anemia D64.9 Gallstones K80.20 Cardiac arrest (Inactive) I46.9 Chronic osteomyelitis of left tibia (Inactive) M86.662 chronic osteomyelitis left tibia at BKA stump History of DVT (deep vein thrombosis) (Inactive) Z86.718 History of pulmonary embolism (Inactive) Z86.711 Ischemic ulcer of right foot (Inactive) L97.519 Methicillin resistant Staphylococcus aureus infection (Inactive) A49.02 Osteomyelitis of left lower extremity (Inactive) M86.9 Pain of amputation stump of left lower extremity (Inactive) T87.89, M79.605 Personal history of osteomyelitis (Inactive) Z87.39 SVT (supraventricular tachycardia) (Inactive) I47.1 had an ablation in the past Ulceration of below knee amputation stump (Inactive) T87.89, L97.809 Allergies pollen extracts Allergy (Intermediate, Verified 08/10/20 18:43) unknown Penicillins Allergy (Verified 08/10/20 18:43) Swelling adhesive tape Adverse Reaction (Verified 08/10/20 18:43) Rash oxycodone [From OxyContin] Adverse Reaction (Verified 08/10/20 18:48) it makes me go nuts it makes me go nuts Home Medications: Ambulatory Orders Medication Instructions Recorded albuterol sulfate 2.5 mg INHALATION Q6H PRN #75 ml 07/08/19 Aspirin [Aspirin, Baby] 81 mg PO DAILY@0800 11/07/19 Carvedilol 25 mg PO DAILY 11/07/19 Ticagrelor [Brilinta] 90 mg PO DAILY 11/07/19 albuterol sulfate 90 mcg/actuation 2 puff INHALATION Q6H PRN g 04/08/20 aerosol inhaler atorvastatin 40 mg tablet 40 mg PO QHS 04/08/20 nitroglycerin 0.4 mg sublingual 0.4 mg SUBLINGUAL Q5-15M PRN tab 04/08/20 tablet gabapentin 600 mg tablet 600 mg PO TID #90 tab 07/24/20 lisinopril 2.5 mg tablet 10 mg PO DAILY tab 07/24/20 Surgical History: Surgical History (Last Reviewed 07/24/20 @ 08:02 by Amairani Pascual) History of left heart catheterization (LHC) (Chronic) Onset Date: 11/29/19 Z98.890 Normal Coronaries....august 2016 at [facility] History of coronary artery stent placement (Chronic) Z95.5 3.5 x 32 mm Synergy MR BRIDGER to pLAD 07/03/19 History of carotid endarterectomy Z98.890 04/22/19 at [facility] Status post below knee amputation of left lower extremity Z89.512 at [facility] for severe PVD with non-healing wounds and recurrent infections LLE Revision done in 2018 History of cholecystectomy Z90.49 1998 History of surgical removal of testicle Z98.890, Z90.79 History of cardiac radiofrequency ablation (Inactive) Onset Date: ~02/25/13 Z98.890 PVC Ablation 02/25/13 @ [facility] Surgical History: cholecystectomy, - - Left CEAy 04/22/2019 at [facility], Left BKA for severe peripheral vascular disease with nonhealing wounds, cellulitis and osteomyelitis, Multiple stents in both lower extremities secondary to peripheral vascular disease, Multiple debridements of nonhealing wounds of the left lower extremity, Cardiac PCI x 1, cholecystectomy. Psychiatric History: Anxiety, Depression Smoking Status: Current every day smoker - *Family History Maternal Family History: Family History (Last Reviewed 07/24/20 @ 08:02 by Amairani Pascual) Mother Diabetes CVA (cerebral vascular accident) Myocardial infarction Father Cancer Kidney disease History Items: Cancer, Diabetes, Heart Disease, Renal Disease Paternal Family History: Family History (Last Reviewed 07/24/20 @ 08:02 by Amairani Pascual) Mother Diabetes CVA (cerebral vascular accident) Myocardial infarction Father Cancer Kidney disease History Items: Cancer Review of Systems Constitutional: Denies: Chills, Fever, Weight Change HEENT: Denies: Head Aches, Sinus Congestion, Sinus Drainage Cardiovascular: Reports: Chest Pain. Denies: Palpitations Respiratory: Denies: Cough, Shortness of breath at rest, Sputum production Gastrointestinal: Denies: Abdominal Pain, Nausea, Vomiting Genitourinary: Denies: Dysuria Musculoskeletal: Reports: Leg Pain - left bka. Denies: Joint Pain, Joint Tenderness Skin: Denies: Rash, Wounds Neurological: Denies: Numbness, Tingling, Focal weakness Psychiatric: Denies: Anxiety, Depression, Homicidal Ideations, Suicidal Ideations Hematologic/ Lymphatic: Denies: Easy Bruising, Easy Bleeding VTE Information - Inpt Only VTE Present on Admission: No VTE Mechan Device Prophylaxis: None VTE Pharm Prophylaxis ordered?: Yes - Physical Exam Vitals/I&O's: Vital Signs Temp Pulse Resp BP Pulse Ox 97.5 F L 76 16 90/62 99 08/10/20 19:37 08/10/20 19:37 08/10/20 19:37 08/10/20 19:37 08/10/20 19:37 Oxygen Delivery Method Room Air Weight: 181 lb 10.574 oz Body Mass Index (BMI) 22.6 Finger Stick Blood Glucose 95 General: Alert, Oriented x3, Cooperative HEENT: Atraumatic, Normocephalic Neck: Supple, No JVD, Negative Carotid Bruits Lungs: Clear to auscultation, Normal air movement Cardiovascular: Regular rate, Regular Rhythm, Normal S1, Normal S2, No murmurs Abdomen: Bowel Sounds Present, Soft, Non Tender Extremities: No edema, - - left bka note Skin: No rashes, No breakdown Musculoskeletal: No Tenderness to Palpation of Joints or Extremities Neurological: Neuro grossly intact Psych/Mental Status: Normal Affect, Appropriate Laboratory Results 08/10/20 18:45: WBC 8.0, RBC 4.23 L, Hgb 12.4 L, Hct 38.3 L, MCV 90.5, MCH 29.3, MCHC 32.4, RDW Std Deviation 64.6 H, RDW Coeff of Lawson 19.6 H, Plt Count 295, MPV 9.1, Immature Gran % (Auto) 0.400, Neut % (Auto) 39.8 L, Lymph % (Auto) 41.8 H, [place] % (Auto) 10.8 H, Eos % (Auto) 6.2 H, Baso % (Auto) 1.0, Absolute Neuts (auto) 3.2, Absolute Lymphs (auto) 3.33, Nucleated RBC % 0 08/10/20 18:45: PT 13.8, INR 1.1, APTT 28.2 08/10/20 18:45: Sodium 134 L, Potassium 3.9, Chloride 102, Carbon Dioxide 24.0, Anion Gap 8, BUN 11, Creatinine 1.23, Estim Creat Clear Calc 80.02, Est GFR (MDRD) Af Amer 79, Est GFR (MDRD) Non-Af 65, BUN/Creatinine Ratio 8.9 L, Glucose 92, Calcium 8.3 L, Magnesium 2.5, Troponin I < 0.015 08/10/20 18:45: Ethyl Alcohol 287.0 08/10/20 18:45: B-Natriuretic Peptide 97.2 Assessment/Plan All Active Problems (Last Reviewed 07/24/20 @ 08:02 by Amairani Pascual) Chest pain (Acute) Defibrillator discharge (Resolved) Procedure Criteria COVID Risk Discussion: Chronic Problems (Last Reviewed 07/24/20 @ 08:02 by Amairani Pascual) SVT (supraventricular tachycardia) (Chronic) History of left heart catheterization (LHC) (Chronic 11/29/19) Normal Coronaries....august 2016 at [facility] CAD in [place] artery (Chronic) Paroxysmal atrial fibrillation (Chronic) HLD (hyperlipidemia) (Chronic) Acute CVA (cerebrovascular accident) (Chronic) History of coronary artery stent placement (Chronic) 3.5 x 32 mm Synergy MR BRIDGER to pLAD 07/03/19 Atherosclerosis of coronary artery of [place] heart without angina pectoris (Chronic) CHF (congestive heart failure) (Chronic) History of sudden cardiac arrest successfully resuscitated (Chronic) Chronic renal failure, stage 2 (mild) (Chronic) Depression (Chronic) History of ischemic left MCA stroke (Chronic) 04/17/19 Debility (Chronic) due to L MCA stroke 04/17/19 Normochromic normocytic anemia (Chronic) LBBB (left bundle branch block) (Chronic) Dilated cardiomyopathy (Chronic) 27% EF on ECHO 02/18/19........non-ischemic. normal coronaries on cath August 2016 at [facility] Essential hypertension (Chronic) lab[employer] current use of anticoagulant (Chronic) Patient is on Coumadin for PE Peripheral arterial disease (Chronic) BL LE's....multiple stents in both legs Hypercoagulable state (Chronic) Positive lupus anticoagulant, positive anticardiolipin anti B IgM, and increased homocystine level Plan 1. Acute chest pain rule out MT?admit patient for observation to progressive care unit, oxygen, nitroglycerin and aspirin per routine. Due to recent catheterization in November I do not feel a stress test is necessary if the cardiac enzymes are negative at this time. If patient's chest pain has resolved in the morning and enzymes are negative he will be discharged. 2. Suspected alcohol abuse?patient denies drinking alcohol despite an blood alcohol level of 287 patient will likely be is discharged before alcohol withdrawal becomes an issue. 3. Paroxysmal atrial fibrillation?patient has a pacemaker 4. Dilated cardiomyopathy?patient has an internal defibrillator 5. History of vasculopathy status post low the knee amputation?patient used to take Eliquis unclear as to why this was discontinued?we will place patient on low molecular weight heparin for prophylaxis of DVT during his stay here. OBSV E&M: [id number] Initial observation care L2
--- NOTE | 2020-08-10 22:02 | EKG12_ITS ---
Test Reason : CP ADMIT Blood Pressure : / mmHG Vent. Rate : 077 BPM Atrial Rate : 077 BPM P-R Int : 126 ms QRS Dur : 136 ms QT Int : 456 ms P-R-T Axes : 072 046 098 degrees QTc Int : 516 ms Atrial-sensed ventricular-paced rhythm Abnormal ECG When compared with ECG of 10-AUG-2020 18:46, MANUAL COMPARISON REQUIRED, DATA IS UNCONFIRMED Confirmed by JIN BUSH, MAHSA ([id number]), society editor PAULA PERKINS [id number]) on 08/13/2020 1:07:16 PM Referred By: DR MERIDA Confirmed By:MAHSA ABDI MD
[2020-08-10] MEDS: Gabapentin 600 MG Tablet PO (23:19)
[2020-08-10] MEDS: Atorvastatin Calcium 40 MG Tablet PO (23:19)
[2020-08-11] VITALS (9 sets, daily range): BP systolic 73–116; BP diastolic 49–72; PULSE 73–97; RESP 16–18; TEMP 36.4–36.9; O2SAT 96–99
[2020-08-11] MEDS: 0.9% Normal Saline 1,000 ML 500 ML IV (00:49)
[2020-08-11 01:33] LABS: Amphetamine Urine VISTA NEGATIVE (<1000 ng/mL); Barbiturate Urine VISTA NEGATIVE (< 200 ng/mL); Benzodiazepine Urine VISTA NEGATIVE (< 200 ng/mL); Cocaine Urine VISTA NEGATIVE (< 300 ng/mL); Ecstacy Urine VISTA NEGATIVE (< 500 ng/mL); Methadone Urine VISTA NEGATIVE (< 300 ng/mL); PCP Urine VISTA NEGATIVE (< 25 ng/mL); THC Urine VISTA NEGATIVE (< 50 ng/mL); Vista UDS pH Range 6
[2020-08-11] MEDS: Gabapentin 600 MG Tablet PO ×2 (05:42→13:29)
[2020-08-11 06:32] LABS: Absolute Lymphocyte Count 2.31 X10^3/uL (0.83-4.51); Absolute Neutrophil Count 2.2 X10^3/uL (2.0-7.7); Basophil% 1.8 % (0-1); Eosinophil# 0.42 X10^3/uL; Eosinophils% 7.5 % (0-5); Hematocrit 36.1 % (40-54); Hemoglobin 11.6 g/dL (13.0-16.5); Lymphocyte # 2.31 X10^3/ul (4.0); Lymphocyte % 41.3 % (19-41); Mean Corp Hgb Conc 32.1 g/dL (32-36); Mean Corpuscular Hgb 29.4 pg (27.0-32.0); Mean Corpuscular Volume 91.6 fL (80-94); Mean Platelet Vol. 9.4 fl (6.2-12.0); Monocyte# 0.51 X10^3/uL; Monocyte% 9.1 % (0-10); NRBC Flagged by Analyzer 0 % (0-5); Neutrophil # 2.24 X10^3/uL (2.7-7.7); Neutrophil % 40.1 % (47-70); POSITIVE MORPHOLOGY YES; Platelet Count 308 K/mm3 (150-450); RBC Distribution Width CV 19.8 % (11.6-14.6); RBC Distribution Width SD 65.2 fl (35.1-43.9); Red Blood Count 3.94 M/mm3 (4.6-6.2); White Blood Count 5.6 K/mm3 (4.4-11.0)
[2020-08-11 06:38] LABS: Differential Indicated SCAN CRITERIA MET
[2020-08-11 06:53] LABS: Differential Comment SCANNED
[2020-08-11 06:54] LABS: Anisocytosis 1+
[2020-08-11 07:00] LABS: Anion Gap 5 (5-15); BUN 10 mg/dL (7-18); BUN/Creat Ratio 9.2 RATIO (10-20); Calcium,Total 8.2 mg/dL (8.5-10.1); Chloride 110 mmol/L (98-107); Creatinine, Serum 1.09 mg/dL (0.70-1.30); EST Glomerular Filtration Rate 75 mL/min (>60); Est Glom Filt Rate - Afr Amer 90 mL/min (>60); Estimated Creatinine Clearance 88.65 ml/min; Glucose 76 mg/dL (74-106); Potassium 4.5 mmol/L (3.5-5.1); Sodium Level 138 mmol/L (136-145)
--- NOTE | 2020-08-11 08:47 | PCM.DC.SUM ---
Discharge Date and Diagnosis - Problem List Patient Problems: Active and Suspected Problems (Last Reviewed 07/24/20 @ 08:02 by Amairani Pascual) Chest pain (Acute) Date of Admission: 08/10/20 Date of Discharge: 08/11/20 - Primary Discharge Diagnosis Acute Problems: Active Problems (Last Reviewed 07/24/20 @ 08:02 by Amairani Pascual) Chest pain (Acute) - Secondary Discharge Diagnosis Chronic Problems: Chronic Problems (Last Reviewed 07/24/20 @ 08:02 by Amairani Pascual) SVT (supraventricular tachycardia) (Chronic) History of left heart catheterization (LHC) (Chronic 11/29/19) Normal Coronaries....august 2016 at [facility] CAD in [place] artery (Chronic) Paroxysmal atrial fibrillation (Chronic) HLD (hyperlipidemia) (Chronic) Acute CVA (cerebrovascular accident) (Chronic) History of coronary artery stent placement (Chronic) 3.5 x 32 mm Synergy MR BRIDGER to pLAD 07/03/19 Atherosclerosis of coronary artery of [place] heart without angina pectoris (Chronic) CHF (congestive heart failure) (Chronic) History of sudden cardiac arrest successfully resuscitated (Chronic) Chronic renal failure, stage 2 (mild) (Chronic) Depression (Chronic) History of ischemic left MCA stroke (Chronic) 04/17/19 Debility (Chronic) due to L MCA stroke 04/17/19 Normochromic normocytic anemia (Chronic) LBBB (left bundle branch block) (Chronic) Dilated cardiomyopathy (Chronic) 27% EF on ECHO 02/18/19........non-ischemic. 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 Patient has a significant past medical history including coronary artery disease status post stent October, history of sudden cardiac arrest, presence of AICD. Patient currently denies pain, only tightness. Patient EKG shows an AV paced rhythm. Patient fever, chills, shortness of breath, nausea. Patient underwent cardiac catheterization in November 2019 which was negative. Troponins negative x3. Patient was hypotensive overnight and carvedilol was held. Pt normotensive this a.m. Patient Problems: Active and Suspected Problems (Last Reviewed 07/24/20 @ 08:02 by Amairani Pascual) Chest pain (Acute) - Physical Exam Vitals/I&O's: Vital Signs Temp Pulse Resp BP Pulse Ox 98.5 F 73 18 108/65 97 08/11/20 05:41 08/11/20 07:02 08/11/20 05:41 08/11/20 05:41 08/11/20 07:07 Oxygen Delivery Method Room Air Weight: 178 lb 5.663 oz Body Mass Index (BMI) 22.8 Finger Stick Blood Glucose 95 Intake and Output for Last 24 Hours 08/09/20 08/10/20 08/11/20 23:59 23:59 23:59 Intake Total 100 / 100 1640 / 1640 Output Total 0 / 0 800 / 800 Balance 100 / 100 840 / 840 General: Alert, Oriented x3, Cooperative HEENT: Atraumatic, PERRLA, EOMI, Normocephalic Neck: Supple, No JVD, Negative Carotid Bruits Lungs: Clear to auscultation, Normal air movement Cardiovascular: Regular rate, Regular Rhythm Abdomen: Bowel Sounds Present, Soft, Non Tender Extremities: No edema, Diminished Peripheral Pulses, - - Left BKA Skin: No rashes, No breakdown Musculoskeletal: No Tenderness to Palpation of Joints or Extremities Neurological: Cranial nerves II-XII grossly intact Psych/Mental Status: Normal Affect, Appropriate Laboratory Results 08/10/20 18:45: WBC 8.0, RBC 4.23 L, Hgb 12.4 L, Hct 38.3 L, MCV 90.5, MCH 29.3, MCHC 32.4, RDW Std Deviation 64.6 H, RDW Coeff of Lawson 19.6 H, Plt Count 295, MPV 9.1, Immature Gran % (Auto) 0.400, Neut % (Auto) 39.8 L, Lymph % (Auto) 41.8 H, [place] % (Auto) 10.8 H, Eos % (Auto) 6.2 H, Baso % (Auto) 1.0, Absolute Neuts (auto) 3.2, Absolute Lymphs (auto) 3.33, Nucleated RBC % 0 08/10/20 18:45: PT 13.8, INR 1.1, APTT 28.2 08/10/20 18:45: Sodium 134 L, Potassium 3.9, Chloride 102, Carbon Dioxide 24.0, Anion Gap 8, BUN 11, Creatinine 1.23, Estim Creat Clear Calc 80.02, Est GFR (MDRD) Af Amer 79, Est GFR (MDRD) Non-Af 65, BUN/Creatinine Ratio 8.9 L, Glucose 92, Calcium 8.3 L, Magnesium 2.5, Troponin I < 0.015 08/10/20 18:45: Ethyl Alcohol 287.0 08/10/20 18:45: B-Natriuretic Peptide 97.2 08/10/20 21:15: Troponin I < 0.015 08/11/20 00:10: Troponin I < 0.015 08/11/20 00:48: Urine Opiates Screen NEGATIVE, Urine Methadone Screen NEGATIVE, Ur Barbiturates Screen NEGATIVE, Ur Phencyclidine Scrn NEGATIVE, Ur Amphetamines Screen NEGATIVE, U Methamphetamin-MDMA NEGATIVE, U Benzodiazepines Scrn NEGATIVE, Urine Cocaine Screen NEGATIVE, U Cannabinoids Screen NEGATIVE, Ur Drug Screen Comment 08/11/20 05:50: WBC 5.6, RBC 3.94 L, Hgb 11.6 L, Hct 36.1 L, MCV 91.6, MCH 29.4, MCHC 32.1, RDW Std Deviation 65.2 H, RDW Coeff of [place] 19.8 H, Plt Count 308, MPV 9.4, Immature Gran % (Auto) 0.200, Neut % (Auto) 40.1 L, Lymph % (Auto) 41.3 H, [place] % (Auto) 9.1, Eos % (Auto) 7.5 H, Baso % (Auto) 1.8 H, Absolute Neuts (auto) 2.2, Absolute Lymphs (auto) 2.31, Nucleated RBC % 0, Differential Comment SCANNED, Anisocytosis 1+ 08/11/20 05:50: Sodium 138, Potassium 4.5, Chloride 110 H, Carbon Dioxide 23.0, Anion Gap 5, BUN 10, Creatinine 1.09, Estim Creat Clear Calc 88.65, Est GFR (MDRD) Af Amer 90, Est GFR (MDRD) Non-Af 75, BUN/Creatinine Ratio 9.2 L, Glucose 76, Calcium 8.2 L Current Medications Albuterol Sulfate (Albuterol 2.5 Mg/3 Ml Vial.Neb.) 2.5 mg INHALATION Q4H PRN PRN PRN Reason: shortness of breath or wheezing Aspirin (Aspirin 81 Mg Tab.Chew) 81 mg PO DAILY@0800 [facility] Atorvastatin Calcium (Atorvastatin Calcium 40 Mg Tablet) 40 mg PO QHS [facility] Last Admin: 08/10/20 23:19 Dose: 40 mg Documented by: Carvedilol (Carvedilol 12.5 Mg Tablet) 12.5 mg PO BID [facility] Last Admin: 08/10/20 23:05 Dose: Not Given Documented by: Enoxaparin Sodium (Enoxaparin 40 Mg/0.4 Ml Syringe) 40 mg SC DAILY [facility] Gabapentin (Gabapentin 600 Mg Tablet) 600 mg PO TID [facility] Last Admin: 08/11/20 05:42 Dose: 600 mg Documented by: Sodium Chloride () 250 mls @ 15 mls/hr IV .[id number] PRN PRN Reason: Saline Flush Sodium Chloride () 250 mls @ 15 mls/hr IV .[id number] PRN PRN Reason: Additional IVPB Infusion Lisinopril (Lisinopril 2.5 Mg Tablet) 2.5 mg PO DAILY [facility] Nitroglycerin (Nitroglycerin (Inpatient Use) 0.4 Mg Tab.Subl) 0.4 mg SL Q5M PRN PRN Reason: CARDIAC/CHEST PAIN Nutritional Formula (Lactose Free) (Ensure Enlive 120 Ml Liquid) 120 ml PO 4X/DAY [facility] Last Admin: 08/10/20 23:19 Dose: 120 ml Documented by: Sodium Chloride (0.9% Saline Lock 10 Ml Syringe) 10 - 40 ml IV UD PRN PRN Reason: SALINE FLUSH Ticagrelor (Ticagrelor 90 Mg Tablet) 90 mg PO DAILY [facility] Discharge Diet: Low fat/ Low Cholesterol Discharge Activity: No Restrictions Home Medications: Medications to take at Discharge albuterol sulfate 2.5 mg INHALATION Q6H PRN #75 ml 07/08/19 Aspirin [Aspirin, Baby] 81 mg PO DAILY@0800 11/07/19 Carvedilol 12.5 mg PO BID 11/07/19 Ticagrelor [Brilinta] 90 mg PO DAILY 11/07/19 albuterol sulfate 90 mcg/actuation aerosol inhaler 2 puff INHALATION Q6H PRN g 04/08/20 atorvastatin 40 mg tablet 40 mg PO DAILY 04/08/20 nitroglycerin 0.4 mg sublingual tablet 0.4 mg SUBLINGUAL Q5-15M PRN tab 04/08/20 gabapentin 600 mg tablet 600 mg PO TID #90 tab 07/24/20 lisinopril 2.5 mg tablet 2.5 mg PO DAILY tab 07/24/20 Primary Care Physician: Dharmesh Alonso MD [Primary Care Provider] - Patient Instructions: ED Chest Pain, Noncardiac, Understanding Peripheral Artery Disease Disposition: Home Minutes spent on discharge:: 35 Patient Condition:: Good Medical Necessity - Tobacco Use Smoking Status: Current every day smoker Meaningful Use Info Meaningful Use Diagnoses (Choose all that apply): None applicable
--- NOTE | 2020-08-11 09:03 | DCINST_ITS ---
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) Patient is on Coumadin for PE Peripheral arterial disease (Chronic) BL LE's....multiple stents in both legs You will use the following diet at home:: Cardiac Your food should be the consistency of: Regular Discharge Activity: No Restrictions Call your doctor if you observe: Shortness of breath, Dizziness, Chest pain, Increased palpitations (irregular heartbeat) Instructions: Understanding Peripheral Artery Disease, ED Chest Pain, Noncardiac Allergies/Adverse Reactions: Allergies pollen extracts Allergy (Intermediate, Verified 08/10/20 21:19) unknown Penicillins Allergy (Verified 08/10/20 21:19) Swelling adhesive tape Adverse Reaction (Verified 08/10/20 21:19) Rash oxycodone [From OxyContin] Adverse Reaction (Verified 08/10/20 21:19) it makes me go nuts it makes me go nuts Medications to take at Discharge albuterol sulfate 2.5 mg INHALATION Q6H PRN #75 ml 07/08/19 Aspirin [Aspirin, Baby] 81 mg PO DAILY@0800 11/07/19 Carvedilol 12.5 mg PO BID 11/07/19 Ticagrelor [Brilinta] 90 mg PO DAILY 11/07/19 albuterol sulfate 90 mcg/actuation aerosol inhaler 2 puff INHALATION Q6H PRN g 04/08/20 atorvastatin 40 mg tablet 40 mg PO DAILY 04/08/20 nitroglycerin 0.4 mg sublingual tablet 0.4 mg SUBLINGUAL Q5-15M PRN tab 04/08/20 gabapentin 600 mg tablet 600 mg PO TID #90 tab 07/24/20 lisinopril 2.5 mg tablet 2.5 mg PO DAILY tab 07/24/20 Primary Care Physician: Dharmesh Alonso MD [Primary Care Provider] - Test Results: Test results from this visit will be discussed in further detail at your follow- up appointment, if applicable.
--- NOTE | 2020-08-11 09:13 | PHA.DC.MR ---
Pharmacy Service has performed discharge medication reconciliation for this patient. The patient's discharge medication list was reviewed for discrepancies and discrepancies were resolved. Home Medications albuterol sulfate 2.5 mg INHALATION Q6H PRN #75 ml 07/08/19 Aspirin [Aspirin, Baby] 81 mg PO DAILY@0800 11/07/19 Carvedilol 12.5 mg PO BID 11/07/19 Ticagrelor [Brilinta] 90 mg PO DAILY 11/07/19 albuterol sulfate 90 mcg/actuation aerosol inhaler 2 puff INHALATION Q6H PRN g 04/08/20 atorvastatin 40 mg tablet 40 mg PO DAILY 04/08/20 nitroglycerin 0.4 mg sublingual tablet 0.4 mg SUBLINGUAL Q5-15M PRN tab 04/08/20 gabapentin 600 mg tablet 600 mg PO TID #90 tab 07/24/20 lisinopril 2.5 mg tablet 2.5 mg PO DAILY tab 07/24/20
[2020-08-11] MEDS: Carvedilol 12.5 MG Tablet PO (09:20)
[2020-08-11] MEDS: TICAGRELOR 90 MG TABLET PO (09:20)
[2020-08-11] MEDS: Aspirin 81 MG TAB.CHEW PO (09:20)
[2020-08-11] MEDS: Enoxaparin 40 MG/0.4 ML Syringe SC (09:20)
[2020-08-11] MEDS: Lisinopril 2.5 MG Tablet PO (09:20)
--- NOTE | 2020-08-11 09:33 | PCM.CONS.C ---
Reason for Consult Date of Consultation: 08/11/20 Reason for Consultation: Chest pain. History of Present Illness: The patient is a 54 year old M who presented to the emergency room yesterday complaining of chest discomfort. There were no EKG changes noted. He says this has started the day before. He unfortunately denied alcohol use though his blood alcohol level was noted to be elevated. His past medical history is significant for history of hypotension superimposed upon a history of CAD, PCI, cardiomyopathy, chronic systolic CHF, paroxysmal atrial fibrillation, status post ablation for PVCs, hyperlipidemia, hypertension, peripheral artery disease, carotid endarterectomy, CVA-remote, hypercoagulable state, and a left BKA. He underwent a biventricular ICD placement at [facility] for left ventricular systolic dysfunction. He apparently underwent a cardiac catheterization in November 2019 which demonstrated patency of his previous placed stent. He had had a cardiac arrest in June 2019 which led to a cardiac catheterization and LAD thrombectomy and stenting. It appears that he has been seen by all previous members of the cardiology faculty of the heart group. He was evaluated in the hospital was noted to have negative cardiac enzymes and I was consulted to see him for outpatient follow-up. Past Medical History Allergies/Adverse Reactions: Allergies pollen extracts Allergy (Intermediate, Verified 08/10/20 21:19) unknown Penicillins Allergy (Verified 08/10/20 21:19) Swelling adhesive tape Adverse Reaction (Verified 08/10/20 21:19) Rash oxycodone [From OxyContin] Adverse Reaction (Verified 08/10/20 21:19) it makes me go nuts it makes me go nuts Home Medications: Ambulatory Orders Medication Instructions Recorded albuterol sulfate 2.5 mg INHALATION Q6H PRN #75 ml 07/08/19 Aspirin [Aspirin, Baby] 81 mg PO DAILY@0800 11/07/19 Carvedilol 12.5 mg PO BID 11/07/19 Ticagrelor [Brilinta] 90 mg PO DAILY 11/07/19 albuterol sulfate 90 mcg/actuation 2 puff INHALATION Q6H PRN g 04/08/20 aerosol inhaler atorvastatin 40 mg tablet 40 mg PO DAILY 04/08/20 nitroglycerin 0.4 mg sublingual 0.4 mg SUBLINGUAL Q5-15M PRN tab 04/08/20 tablet gabapentin 600 mg tablet 600 mg PO TID #90 tab 07/24/20 lisinopril 2.5 mg tablet 2.5 mg PO DAILY tab 07/24/20 Past Medical History (Chronic Problems): Chronic Problems (Last Reviewed 07/24/20 @ 08:02 by Amairani Pascual) SVT (supraventricular tachycardia) (Chronic) History of left heart catheterization (LHC) (Chronic 11/29/19) Normal Coronaries....august 2016 at [facility] CAD in [place] artery (Chronic) Paroxysmal atrial fibrillation (Chronic) HLD (hyperlipidemia) (Chronic) Acute CVA (cerebrovascular accident) (Chronic) History of coronary artery stent placement (Chronic) 3.5 x 32 mm Synergy MR BRDIGER to pLAD 07/03/19 Atherosclerosis of coronary artery of [place] heart without angina pectoris (Chronic) CHF (congestive heart failure) (Chronic) History of sudden cardiac arrest successfully resuscitated (Chronic) Chronic renal failure, stage 2 (mild) (Chronic) Depression (Chronic) History of ischemic left MCA stroke (Chronic) 04/17/19 Debility (Chronic) due to L MCA stroke 04/17/19 Normochromic normocytic anemia (Chronic) LBBB (left bundle branch block) (Chronic) Dilated cardiomyopathy (Chronic) 27% EF on ECHO 02/18/19........non-ischemic. 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 Psychiatric History: Anxiety, Depression - *Family History Maternal Family History: Family History (Last Reviewed 07/24/20 @ 08:02 by Amairani Pascual) Mother Diabetes CVA (cerebral vascular accident) Myocardial infarction Father Cancer Kidney disease History Items: Cancer, Diabetes, Heart Disease, Renal Disease Paternal Family History: Family History (Last Reviewed 07/24/20 @ 08:02 by Amairani Pascual) Mother Diabetes CVA (cerebral vascular accident) Myocardial infarction Father Cancer Kidney disease History Items: Cancer Smoking Status: Current every day smoker Review of Systems - Review of Systems General: Denies: Fever, Night Sweats, Fatigue Cardiovascular: Reports: Chest Discomfort. Denies: Shortness of Breath, Orthopnea, PND, Peripheral Edema, Palpitations, Lightheadedness, Dizziness, Near Syncope, Syncope Respiratory: Denies: Cough, Sputum Production, Hemoptysis Gastrointestinal: Denies: Hematemesis, Hematochezia, Melena Genitourinary: Denies: Dysuria, Hematuria Skin: Denies: Rash Psychiatric: Reports: Anxiety Endocrine: Denies: Unexplained Weight Loss Hematologic/ Lymphatic: Denies: Anemia Subjectve: Pleasant gentleman in no distress Objective: Vital Signs Temp Pulse Resp BP Pulse Ox 97.9 F 97 18 111/65 97 08/11/20 09:20 08/11/20 09:20 08/11/20 09:20 08/11/20 09:20 08/11/20 09:20 Oxygen Delivery Method Room Air Weight: 178 lb 5.663 oz Body Mass Index (BMI) 22.8 Finger Stick Blood Glucose 95 Intake and Output for Last 24 Hours 08/09/20 08/10/20 08/11/20 23:59 23:59 23:59 Intake Total 100 / 100 1640 / 1640 Output Total 0 / 0 800 / 800 Balance 100 / 100 840 / 840 General: Awake, Alert, Oriented x 3 HEENT: PERRL, EOMI, Sclera Non Icteric Neck: Supple, Good ROM, No Lymph Node Enlargement Lungs: Clear to auscultation Cardiovascular: Regular Rhythm, Normal S1, Normal S2, No Murmurs, No Rubs, No Gallops Vascular: No Carotid Bruits, Normal Femoral Pulses, Normal Radial Pulses, Normal Dorsalis Pedal Pulse, Normal Posterior Tibial Pulses Abdomen: Bowel Sounds Present, Soft, Non Tender, No HSM, No Organomegaly Extremities: No Cyanosis, No Clubbing, No edema, - - Left BKA noted Neurological: No Focal Motor or Sensory Deficit Psych/Mental Status: Appropriate 08/10/20 18:45: WBC 8.0, RBC 4.23 L, Hgb 12.4 L, Hct 38.3 L, MCV 90.5, MCH 29.3, MCHC 32.4, Plt Count 295, MPV 9.1, Immature Gran % (Auto) 0.400, Neut % (Auto) 39.8 L, Lymph % (Auto) 41.8 H, [place] % (Auto) 10.8 H, Eos % (Auto) 6.2 H, Baso % (Auto) 1.0, Absolute Neuts (auto) 3.2, Nucleated RBC % 0 08/10/20 18:45: PT 13.8, INR 1.1, APTT 28.2 08/10/20 18:45: Sodium 134 L, Potassium 3.9, Chloride 102, Carbon Dioxide 24.0, Anion Gap 8, BUN 11, Creatinine 1.23, Est GFR (MDRD) Af Amer 79, Est GFR (MDRD) Non-Af 65, BUN/Creatinine Ratio 8.9 L, Glucose 92, Calcium 8.3 L, Magnesium 2.5, Troponin I < 0.015 08/10/20 18:45: B-Natriuretic Peptide 97.2 08/10/20 21:15: Troponin I < 0.015 08/11/20 00:10: Troponin I < 0.015 08/11/20 05:50: WBC 5.6, RBC 3.94 L, Hgb 11.6 L, Hct 36.1 L, MCV 91.6, MCH 29.4, MCHC 32.1, Plt Count 308, MPV 9.4, Immature Gran % (Auto) 0.200, Neut % (Auto) 40.1 L, Lymph % (Auto) 41.3 H, [place] % (Auto) 9.1, Eos % (Auto) 7.5 H, Baso % (Auto) 1.8 H, Absolute Neuts (auto) 2.2, Nucleated RBC % 0 08/11/20 05:50: Sodium 138, Potassium 4.5, Chloride 110 H, Carbon Dioxide 23.0, Anion Gap 5, BUN 10, Creatinine 1.09, Est GFR (MDRD) Af Amer 90, Est GFR (MDRD) Non-Af 75, BUN/Creatinine Ratio 9.2 L, Glucose 76, Calcium 8.2 L Rhythm: EKG: Normal sinus rhythm with no acute changes Assessment/Plan 1. Chest pain The patient does have chest pain. It appears somewhat atypical with respect to the sharp characteristics and with his cardiac enzymes being normal I would suggest that we continue to monitor him. He also underwent a cardiac catheterization which did not demonstrate any significant abnormalities. The previously placed stent in the LAD was patent. 2. CAD status post PCI The patient presented in June of 2019 and underwent thrombectomy and PCI of the LAD. A follow-up cardiac catheterization in November demonstrates patency of the above vessel. 3. Cardiomyopathy He does have a history of an underlying cardiomyopathy. Estimated ejection fraction is approximately 25% he has had a biventricular ICD placed which has been adjusted. 4. Chronic systolic CHF He does not appear to have any acute symptoms at the moment. He will need to continue medical therapy with adjustment as needed. 5. Paroxysmal atrial fibrillation He continues rate control therapy and anticoagulant therapy. 6. Status post ablation for PVCs According to the patient's previous cardiovascular records he underwent a remote ablation for underlying ventricular ectopy. 7. Hyperlipidemia He will continue medical therapy. 8. Hypertension His blood pressures are being followed. His medications can be adjusted as needed. 9. Peripheral artery disease He does have a history of extensive peripheral artery disease. This does play a role in his vascular access with respect to diagnostic cardiac catheterization/intervention, etc. He will need to continue risk factor evaluation and care and medical management. 10. Status post carotid endarterectomy He has undergone evaluation and care with carotid endarterectomy in the past. 11. Hypercoagulable state He has been diagnosed with a hypercoagulable state. At the moment he is on both antiplatelet therapy and anticoagulant therapy. 12. Status post biventricular ICD implantation. He will follow up with the above in the pacemaker clinic. Thank you for allowing me to participate in the care of your patient. Please don't hesitate to call if any issues arise. He will be discharged for outpatient follow-up in my clinic as well as in the pacemaker clinic.
--- NOTE | 2020-08-11 15:13 | CHAPLAIN ---
Type of Pastoral Visit _x__ Initial Visit ___ Follow-up Visit ___ On-call Visit ___ General Patient Visit ___ Spiritual Assessment ___ Family Conference ___ Bereavement ___ Rapid Response ___ Code Blue ___ Other (describe below) Pastoral Care Referral From _x__ Patient ___ Family ___ Nurse ___ Physician ___ Assembler Fitter ___ Documentation Specialist ___ Other (describe below) Sacrament/Intervention _x__ Active listening ___ Anointing ___ Restorationism ___ Bereavement ___ Communion ___ Misty exploration ___ _x__ Life review _x__ Prayer ___ Reconciliation ___ Sacrament of Sick ___ Supportive presence ___ Wedding ___ Other (describe below) Pastoral Comments
== END 2020-08-11 09:04 | disposition home or self-care (01) ==
LOC: ED 19:09 → PCU 20:02
PROVIDERS: Admitting Provider Family Medicine; Emergency Provider Emergency Medicine; PCP Internal Medicine; Visit Provider Family Medicine
DX: R07.89 Other chest pain (principal); I25.10 Atherosclerotic heart disease of native coronary artery without angina pectoris; I48.0 Paroxysmal atrial fibrillation; E78.5 Hyperlipidemia, unspecified; I12.9 Hypertensive chronic kidney disease with stage 1 through stage 4 chronic kidney disease, or unspecified chronic kidney disease; N18.2 Chronic kidney disease, stage 2 (mild); I25.2 Old myocardial infarction; I73.9 Peripheral vascular disease, unspecified; F17.200 Nicotine dependence, unspecified, uncomplicated; F10.129 Alcohol abuse with intoxication, unspecified; D68.62 Lupus anticoagulant syndrome; I11.0 Hypertensive heart disease with heart failure; I50.22 Chronic systolic (congestive) heart failure; Y90.8 Blood alcohol level of 240 mg/100 ml or more; Z86.74 Personal history of sudden cardiac arrest; Z79.82 Long term (current) use of aspirin; Z79.899 Other long term (current) drug therapy; Z95.810 Presence of automatic (implantable) cardiac defibrillator; Z86.73 Personal history of transient ischemic attack (TIA), and cerebral infarction without residual deficits; Z79.01 Long term (current) use of 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s; Z95.5 Presence of coronary angioplasty implant and graft; Z89.512 Acquired absence of left leg below knee; I42.0 Dilated cardiomyopathy
CPT/HCPCS: 36415; 71045; 80048; 80307; 82077; 83735; 83880; 84484; 85025; 85610; 85730; 93005; 96360; 96361; 96372; 99218; 99285; J7030; J7040; A4216; G0378

== ENCOUNTER → 2020-08-20 12:29 | Outpatient (CLI) | payer BC, SELFPAY ==
[2019-07-04 09:02] VITALS: BMI 29.8
[2020-07-24 08:04] VITALS: BMI 22.4
[2020-08-10 21:08] VITALS: BMI 22.8
--- NOTE | 2020-08-20 12:42 | RAD_ITS ---
STUDY: X-RAY - CERVICAL SPINE REASON FOR EXAM: Male, 54 years old. Neck Pain, Extremity Numbness TECHNIQUE: 4 view(s) of the cervical spine were obtained. COMPARISON: None FINDINGS: Normal anterior atlantoaxial articulation. Normal odontoid process. There is straightening of the normal cervical lordosis. Mild degree of disc space narrowing and spondylosis at the C5-C6 and C6-C7 levels. Normal visualized intervertebral neuroforamina. The soft tissue structures are unremarkable. RAD/Cerv Spine 2 or 3 Views IMPRESSION: Mild degree of disc space narrowing and spondylosis at the C5-C6 and C6-C7 level. Electronically Signed: Earnest Humphrey MD at 12:52 EDT , Service support ,
--- NOTE | 2020-08-20 12:44 | ART_ITS ---
Reason For Study: Rest pain, Hx of PAD Procedure A bilateral lower extremity continuous wave Doppler with analog waveform analysis and ankle brachial indexes. Lt BKA. Left Segmental Pressures Left brachial= 168mmHg. The left thigh waveforms are monophasic. Right Segmental Pressures Right brachial= 163mmHg. Right posterior tibial artery = 118mmHg. Right dorsalis pedis artery = 109mmHg. Right digit = 75 mmHg. The right dorsalis pedis waveforms are monophasic. The right posterior tibial artery waveforms are monophasic. Indices The right ankle brachial index by the dorsalis pedis is 0.65. The right ankle brachial index by the posterior tibial artery is 0.70. The right digital-brachial index is 0.45. VL/Ankle Brachial Index Interpretation Summary Right moderate occlussive disease with MARVIN 0.7 and DBI 0.45. Ordering Physician: Dharmesh Alonso Referring Physician: Dharmesh Alonso Performed By: Joan Medina RVT
== END ==
LOC: CVS 12:30
PROVIDERS: PCP Internal Medicine; Referring Provider Internal Medicine; Visit Provider Internal Medicine
DX: M54.10 Radiculopathy, site unspecified (principal); I73.9 Peripheral vascular disease, unspecified
CPT/HCPCS: 72040; 93922

== ENCOUNTER → 2021-02-17 10:07 | Outpatient (CLI) | payer BC, SELFPAY ==
[2021-02-16 11:25] VITALS: BMI 29.8
[2021-02-17 12:11] LABS: Hematocrit 46.1 % (40-54); Hemoglobin 14.3 g/dL (13.0-16.5); Mean Corpuscular Hgb 28.7 pg (27.0-32.0); Mean Corpuscular Volume 92.6 fL (80-94); Mean Platelet Vol. 10.3 fl (6.2-12.0); Platelet Count 339 K/mm3 (150-450); Red Blood Count 4.98 M/mm3 (4.6-6.2); White Blood Count 6.9 K/mm3 (4.4-11.0)
[2021-02-17 12:34] LABS: ALB/GLOB Ratio 0.8 RATIO (0.9-2.4); AST(SGOT) 34 U/L (15-37); Alanine Aminotransfer ALT/SGPT 44 U/L (16-61); Albumin, Serum 3.7 g/dL (3.2-5.0); Alkaline Phosphatase 77 U/L (45-117); Anion Gap 5 (5-15); BUN 10 mg/dL (7-18); BUN/Creat Ratio 7.5 RATIO (10-20); Calcium,Total 9.3 mg/dL (8.5-10.1); Chloride 103 mmol/L (98-107); Cholesterol 98 mg/dL (200); Creatinine, Serum 1.34 mg/dL (0.70-1.30); EST Glomerular Filtration Rate 59 mL/min (>60); Est Glom Filt Rate - Afr Amer 71 mL/min (>60); Globulin 4.8 g/dL (2.2-4.2); Glucose 84 mg/dL (74-106); High Density Lipoprotein 32 mg/dL; PSA,Total - Annual Screen 1.81 ng/mL (0.00-4.00); Potassium 5.2 mmol/L (3.5-5.1); Protein, Total 8.5 g/dL (6.4-8.2); Sodium Level 133 mmol/L (136-145); Thyroid Stim Hormone (TSH) 0.78 uIU/mL (0.358-3.74); Triglycerides 98 mg/dL; Very Low Density Lipoprotein 20 mg/dL (5-40)
== END ==
LOC: BIMLAB 10:08
PROVIDERS: PCP Internal Medicine; Referring Provider Nurse Practitioner Family; Visit Provider Nurse Practitioner Family
DX: I25.10 Atherosclerotic heart disease of native coronary artery without angina pectoris (principal); E78.5 Hyperlipidemia, unspecified; I10 Essential (primary) hypertension; G62.9 Polyneuropathy, unspecified
CPT/HCPCS: 36415; 80053; 80061; 84153; 84443; 85027; G0103

== ENCOUNTER 2021-07-05 11:13 | Outpatient (CLI) | payer OTHER, SELFPAY ==
[2021-02-16 11:25] VITALS: BMI 29.8
--- NOTE | 2021-07-05 11:19 | RAD_ITS ---
STUDY: X-RAY - PELVIS AND LEFT HIP REASON FOR EXAM: Male, 55 years old. Fall on left side, leg and hip pain TECHNIQUE: Left views of the pelvis and hip. COMPARISON: None. FINDINGS: There is a non-specific bowel gas pattern. Normal visualized soft tissue structures. Right iliac artery stents. Normal bilateral iliac wings, sacroiliac joints and visualized sacrum. Normal bilateral superior and inferior pubic rami. Normal pubic symphysis. Normal bilateral ischial tuberosities. Normal visualized femoral head. Normal acetabulum. Normal hip joint. RAD/HIP, UNI W/ Pelvis 2-3 Views IMPRESSION: No fracture or malalignment. Electronically Signed: Shiva Braga MD (Brooks) at 11:46 EST Reading Location ID and State: / [place] , Service support ,
--- NOTE | 2021-07-05 11:19 | RAD_ITS ---
STUDY: X-RAY - LEFT KNEE REASON FOR EXAM: Male, 55 years old. Fall on left side, leg and hip pain TECHNIQUE: 3 view(s) of the knee. COMPARISON: None. FINDINGS: Obliquely oriented fracture to the base of the lateral femoral condyle with moderate displacement. Below knee amputation noted. Normal proximal tibiofibular articulation. Normal medial femorotibial compartment. Normal lateral femorotibial compartment. Normal patellofemoral articulation. Joint effusion is noted. Femoral artery vascular stent present, visualized in part. RAD/Knee 3 Views IMPRESSION: 1. Lateral femoral condyle fracture with articular surface involvement and moderate displacement. Electronically Signed: Shiva Braga MD (Brooks) at 11:48 EST Reading Location ID and State: [address] [place] [address] , Service support ,
== END 2021-07-05 23:59 | disposition home or self-care (01) ==
LOC: RAD 11:16
PROVIDERS: PCP Internal Medicine; Referring Provider Physician Assistant; Visit Provider Physician Assistant
DX: S88.119A Complete traumatic amputation at level between knee and ankle, unspecified lower leg, initial encounter (principal); M79.605 Pain in left leg; M25.552 Pain in left hip; W19.XXXA Unspecified fall, initial encounter
CPT/HCPCS: 73502; 73562

== ENCOUNTER 2021-07-09 09:06 | Outpatient (CLI) | payer OTHER, SELFPAY ==
[2021-02-16 11:25] VITALS: BMI 29.8
[2021-07-09 12:20] LABS: Absolute Lymphocyte Count 1.66 X10^3/uL (0.83-4.51); Absolute Neutrophil Count 4.2 X10^3/uL (2.0-7.7); Basophil# 0.08 X10^3/uL; Basophil% 1.1 % (0-1); Eosinophil# 0.47 X10^3/uL; Eosinophils% 6.7 % (0-5); Hematocrit 43.1 % (40-54); Hemoglobin 14.3 g/dL (13.0-16.5); Lymphocyte # 1.66 X10^3/ul (0.83-4.51); Lymphocyte % 23.8 % (19-41); Mean Corp Hgb Conc 33.2 g/dL (32-36); Mean Corpuscular Hgb 31.6 pg (27.0-32.0); Mean Corpuscular Volume 95.1 fL (80-94); Mean Platelet Vol. 10.1 fl (6.2-12.0); Monocyte% 7.2 % (0-10); NRBC Flagged by Analyzer 0 % (0-5); Neutrophil # 4.24 X10^3/uL (2.7-7.7); Neutrophil % 60.8 % (47-70); Platelet Count 289 K/mm3 (150-450); RBC Distribution Width CV 17.2 % (11.6-14.6); RBC Distribution Width SD 59.9 fl (35.1-43.9); Red Blood Count 4.53 M/mm3 (4.6-6.2)
[2021-07-09 12:26] LABS: ALB/GLOB Ratio 0.8 RATIO (0.9-2.4); AST(SGOT) 145 U/L (15-37); Alanine Aminotransfer ALT/SGPT 119 U/L (16-61); Albumin, Serum 3.4 g/dL (3.2-5.0); Alkaline Phosphatase 203 U/L (45-117); Anion Gap 4 (5-15); BUN 13 mg/dL (7-18); BUN/Creat Ratio 10.7 RATIO (10-20); Chloride 103 mmol/L (98-107); Creatinine, Serum 1.21 mg/dL (0.70-1.30); EST Glomerular Filtration Rate 66 mL/min (>60); Est Glom Filt Rate - Afr Amer 80 mL/min (>60); Globulin 4.2 g/dL (2.2-4.2); Glucose 92 mg/dL (74-106); Potassium 4.7 mmol/L (3.5-5.1); Protein, Total 7.6 g/dL (6.4-8.2); Sodium Level 133 mmol/L (136-145)
== END 2021-07-09 23:59 | disposition home or self-care (01) ==
LOC: BIMLAB 09:07
PROVIDERS: PCP Internal Medicine; Referring Provider Internal Medicine; Visit Provider Internal Medicine
DX: Z01.818 Encounter for other preprocedural examination (principal)
CPT/HCPCS: 36415; 80053; 85025

== ENCOUNTER 2021-07-13 11:02 | Outpatient (CLI) | payer OTHER, SELFPAY ==
[2021-02-16 11:25] VITALS: BMI 29.8
[2021-07-13 11:59] LABS: GGTP 848 U/L (15-85)
[2021-07-13 12:34] LABS: Hepatitis B Surface Antigen Non-Reactive (Nonreactive); Hepatitis C Antibody Non-Reactive (Nonreactive)
== END 2021-07-13 23:59 | disposition home or self-care (01) ==
LOC: LAB 11:05
PROVIDERS: PCP Internal Medicine; Referring Provider Internal Medicine; Visit Provider Internal Medicine
DX: R74.8 Abnormal levels of other serum enzymes (principal)
CPT/HCPCS: 36415; 82977; 86803; 87340

== ENCOUNTER 2021-07-23 15:30 | Outpatient (CLI) | payer OTHER, SELFPAY ==
[2021-02-16 11:25] VITALS: BMI 29.8
[2021-07-23 15:58] LABS: Absolute Lymphocyte Count 2.56 X10^3/uL (0.83-4.51); Absolute Neutrophil Count 6.8 X10^3/uL (2.0-7.7); Basophil# 0.15 X10^3/uL; Basophil% 1.4 % (0-1); Eosinophil# 0.61 X10^3/uL; Eosinophils% 5.6 % (0-5); Hematocrit 41.2 % (40-54); Hemoglobin 13.6 g/dL (13.0-16.5); Lymphocyte # 2.56 X10^3/ul (0.83-4.51); Lymphocyte % 23.4 % (19-41); Mean Corpuscular Hgb 30.4 pg (27.0-32.0); Mean Platelet Vol. 9.4 fl (6.2-12.0); Monocyte# 0.76 X10^3/uL; NRBC Flagged by Analyzer 0 % (0-5); Neutrophil # 6.81 X10^3/uL (2.7-7.7); Neutrophil % 62.2 % (47-70); Platelet Count 423 K/mm3 (150-450); RBC Distribution Width CV 17.2 % (11.6-14.6); RBC Distribution Width SD 58.1 fl (35.1-43.9); Red Blood Count 4.48 M/mm3 (4.6-6.2); White Blood Count 10.9 K/mm3 (4.4-11.0)
[2021-07-23 16:14] LABS: International Normalized Ratio 1.1; Prothrombin Time (Protime)PT. 13.4 SECONDS (11.7-14.9)
[2021-07-23 16:15] LABS: Partial Thromboplast Time 34.4 Seconds (24.1-36.2)
[2021-07-23 16:19] LABS: Erythrocyte Sedimentation Rate 26 mm/hr (0-20)
[2021-07-23 16:36] LABS: ALB/GLOB Ratio 0.7 RATIO (0.9-2.4); AST(SGOT) 38 U/L (15-37); Alanine Aminotransfer ALT/SGPT 43 U/L (16-61); Albumin, Serum 3.8 g/dL (3.2-5.0); Alkaline Phosphatase 212 U/L (45-117); Anion Gap 5 (5-15); BUN 10 mg/dL (7-18); BUN/Creat Ratio 7.5 RATIO (10-20); Bilirubin, Direct 0.32 mg/dL (0.00-0.30); Calcium,Total 9.6 mg/dL (8.5-10.1); Chloride 99 mmol/L (98-107); Creatinine, Serum 1.34 mg/dL (0.70-1.30); EST Glomerular Filtration Rate 59 mL/min (>60); Est Glom Filt Rate - Afr Amer 71 mL/min (>60); Globulin 5.1 g/dL (2.2-4.2); Glucose 85 mg/dL (74-106); LDH 227 U/L (87-241); Potassium 4.5 mmol/L (3.5-5.1); Protein, Total 8.9 g/dL (6.4-8.2); Sodium Level 130 mmol/L (136-145)
[2021-07-25 17:06] LABS: Anti-Centromere B Ab <0.2 AI (0.0-0.9); Anti-Chromatin <0.2 AI (0.0-0.9); Anti-Jo <0.2 AI (0.0-0.9); Anti-Scleroderma-70 AB <0.2 AI (0.0-0.9); RNP Ab 0.9 AI (0.0-0.9); SJOGREN'S Anti-SS-A test < 0.2 AI (0.0-0.9); SJOGREN'S Anti-SS-B test < 0.2 AI (0.0-0.9); Smith Ab <0.2 AI (0.0-0.9)
[2021-07-26 13:26] LABS: Carbohydrate Ag 19-9 2261 13 U/mL (0-35)
[2021-07-26 13:27] LABS: Anti-dsDNA Ab 1 IU/mL (0-9)
[2021-07-26 20:22] LABS: Anti-Mitochondrial AB <20.0 Units (0.0-20.0)
[2021-07-28 08:10] LABS: Angiotensin Convert Enzyme < 15 U/L (14-82); Ceruloplasmin 32.2 mg/dL (16.0-31.0); Cytoplasmic Ab (C-ANCA) <1:20 titer (Neg:<1:20); HEPATITIS B SURFACE AG Negative (Negative); Hepatitis A IgM Antibody Negative (Negative); Hepatitis B Core AB IgM Negative (Negative)
[2021-07-28 13:34] LABS: AFP, Tumor Marker 4.2 ng/mL (0.0-8.3); Anti-Smooth Muscle ABS 8 Units (0-19); Copper, Serum or Plasma 125 ug/dL (69-132); Haptoglobin 163 mg/dL (29-370); Hep C Antibodies <0.1 s/co ratio (0.0-0.9); Perinuclear Ab (P-ANCA) <1:20 titer (Neg:<1:20)
== END 2021-07-23 23:59 | disposition home or self-care (01) ==
PROVIDERS: PCP Internal Medicine; Visit Provider Nurse Practitioner Adult Health
DX: R74.8 Abnormal levels of other serum enzymes (principal); K83.1 Obstruction of bile duct
CPT/HCPCS: 36415; 80053; 80074; 80076; 82105; 82140; 82164; 82390; 82525; 83010; 83516; 83615; 85025; 85610; 85730; 86140; 86225; 86235; 86256; 86301

== ENCOUNTER 2021-09-09 08:18 | Inpatient (IN) | payer OTHER, SELFPAY ==
[2021-02-16 11:25] VITALS: BMI 29.8
[2021-08-26 12:03] LABS: Hematocrit 40.8 % (40-54); Hemoglobin 13.6 g/dL (13.0-16.5); Mean Corp Hgb Conc 33.3 g/dL (32-36); Mean Corpuscular Volume 89.9 fL (80-94); Mean Platelet Vol. 9.2 fl (6.2-12.0); Platelet Count 312 K/mm3 (150-450); RBC Distribution Width CV 15.5 % (11.6-14.6); RBC Distribution Width SD 51.5 fl (35.1-43.9); Red Blood Count 4.54 M/mm3 (4.6-6.2); White Blood Count 8.1 K/mm3 (4.4-11.0)
[2021-08-26 12:33] LABS: Anion Gap 5 (5-15); BUN 9 mg/dL (7-18); Calcium,Total 8.7 mg/dL (8.5-10.1); Chloride 103 mmol/L (98-107); Creatinine, Serum 1.29 mg/dL (0.70-1.30); EST Glomerular Filtration Rate 61 mL/min (>60); Est Glom Filt Rate - Afr Amer 74 mL/min (>60); Glucose 91 mg/dL (74-106); Potassium 4.3 mmol/L (3.5-5.1); Sodium Level 133 mmol/L (136-145)
--- NOTE | 2021-08-27 13:06 | RAD_ITS ---
STUDY: X-RAY CHEST REASON FOR EXAM: Male, 55 years old. PREOP TECHNIQUE: PA and lateral. COMPARISON: None. FINDINGS: There are left subclavian pacemaker leads, 3, which appear adequately positioned. Normal heart size and mediastinal contours. The lungs are well inflated without infiltrate or effusion. There is mild anterior compression deformity of 2 adjacent vertebral bodies at the thoracolumbar junction, most likely chronic. No acute fracture line is seen. Cholecystectomy clips are noted. No free air. RAD/Chest PA and Lateral IMPRESSION: No acute intrathoracic abnormality. Pacemaker. Mild spine compression deformities. Electronically Signed: Lorin Moon MD at 21:09 EDT ,
[2021-09-09] VITALS (13 sets, daily range): BP systolic 115–168; BP diastolic 80–106; PULSE 62–85; RESP 16–18; TEMP 36.1–36.7; O2SAT 95–100; BMI 23.7; BMI 23.6
[2021-09-09] MEDS: Lactated Ringers 1,000 ML 15 ML IV ×2 (08:35→13:38)
--- NOTE | 2021-09-09 10:20 | AMP_PTH ---
PATIENT: JANIE CHIN LOC: MS3 U#:[id number] AGE/SX: 55/M ROOM: [facility] RE09/09/[address]: Dr. Alton Kingsley DO : 1965 BED: 1 DIS: 09/11/2021 SPEC #: [id number] RECD: 09/09/21 12:40 STATUS: DAVID REMichael #: [id number] NICK: 09/09/21 10:[address]: Rc Kowalski DEPT: SURGICAL PATHOLOGY RECD BY: Kandis Farr ENTERED: 09/10/21 07:27 SP TYPE: Amputation OTHR DR: DO Dr. Dharmesh Bowen MD Dr. Nicholas F Kotsonis, MD Dr. Nicholas Spittle, DO Tissues: Above knee region Procedures: Decalcification bone/plaque Surgery Specimen Level V Comments: @ Ordering doctor for DEC edited from to @ bernei IBARRA at 09/10/21 0943 @ Ordering doctor for SUV edited from to @ by FRED at 09/10/21 0943 @ Submitting doctor edited from to @ bernie IBARRA at 09/10/21 0943 HEADER OPERATION: Staged above knee amputation PRE-OP DIAGNOSIS: Displaced fracture of lateral condyle of left femur TISSUE SUBMITTED: Left above knee amputation MICROSCOPIC DIAGNOSIS Left above knee amputation: Skin and soft tissue at stump with cicatrix. Fracture of lateral condyle with organizing callus. Occlusive atherosclerosis of popliteal vessels. AM:rosalee 09/15/2021 MICROSCOPIC DESCRIPTION Slides are reviewed. GROSS DESCRIPTION Received fresh labeled with the patient's name and designated left above knee amputation. The specimen consists of a stump consisting of above knee amputation status post below knee amputation measuring 23 cm in length from cutaneous resection margin to distal stump. The skin surface at the area of stump reveal scar. 3.5 cm of femur is projecting beyond the cutaneous resection margin. The femoral condyle shows focal area of osteophyte formation. The popliteal vessels are dissected and shows marked stenosis and cuts with gritty sensation. The lateral femoral condyle shows compress, displacement and organizing callus. Real Estate Salesperson sections are submitted as follows: 1 - cutaneous skeletal resection margin, 2 - scar areas of stump, 3 - blood vessels, 4 & 5 - area of fracture in the condyle area. Cassettes 3-5 are submitted after decalcification. / EMILY:rosalee 09/10/2021 TC:5 CPT: 50848, 85068
[2021-09-09] MEDS: Cefazolin 2 GM in 0.9% Normal Saline 100 ML IV ×2 (11:28→20:28)
[2021-09-09] MEDS: Bupivacaine 0.25% 30 ML Vial (12:36)
--- NOTE | 2021-09-09 13:54 | OP.PCM_ITS ---
Report of Operation Date of Procedure: 09/09/21 Description of Surgical Findings:: Preoperative diagnosis: 1. Left intra-articular distal femur fracture 2. Status post left below-knee amputation Postoperative diagnosis: 1. Left intra-articular distal femur fracture 2. Status post left below-knee amputation Procedure: Left transfemoral above-knee amputation with adductor myodesis Surgeon: Rc Kowalski DO Cut Roll Machine Offbearer: Kristie Thomas PA-C Anesthesia: General LMA Anesthesiologist: Dr. Colmenares Complications: None apparent Drains: Round deep Hemovac drain x1 Estimated blood loss: 200 cc Urinary output: None recorded IV fluids: Per anesthesia record Specimens: None Surgical implants: None Indications: This is a 55-year-old male seen in the outpatient setting after a injury to his left BKA stump/knee while he was in [place] approximately 2 months ago. X-rays were obtained due to worsening pain several days later and revealed a intra-articular distal femur fracture. I saw the patient in the office. He states he has had 2 surgeries on his left BKA and stated the prosthesis has not been working since the most recent 1. He requested a above- knee amputation instead of attempted fixation of the displaced intra-articular fracture of the distal femur fracture. We discussed both options at length. Joint decision-making was utilized. We discussed the procedure, its risks, benefits, and alternatives. Risks included but were not limited to bleeding, flexion, loss of life or limb, need for additional surgery, persistent pain, neurovascular injury. Patient has advanced cardiac history. Medical clearance was obtained. He is on Brilinta which was held 5 days prior to surgery. Description of procedure: Patient arrived to the [facility] on the morning of surgery. He was seen by the same day surgery staff. Prior to his procedure, he was brought to the preoperative holding area. I identified the patient by his name, medical record number, and date of . The operative extremity was marked. Informed consent was again confirmed with the patient and all questions answered were to the patient satisfaction. Patient was also seen by the anesthesia staff prior to the procedure. At time of his procedure he was brought to the operative suite and positioned supine a standard operating table. General anesthesia was induced and laryngeal mask airway placed. After adequate anesthesia, we prepared the left lower extremity for surgery. Left lower extremity was prepped and draped in the normal, sterile orthopedic fashion. We performed timeout all parties in attendance agreement the side, site, operation be performed. No concerns were voiced elected proceed with surgery. 2 g Ancef was administered prior to incision by anesthesia staff. A sterile tourniquet was applied to the left upper thigh. I was able to palpate the level of the supracondylar flare of the femur. This was the planned amputation level. I marked a fishmouth incision just distal to this planned bony resection. Limb was exsanguinated and Esmarch bandage and tourniquet inflated to 280 mmHg. Full-thickness skin flaps were developed with a 10 blade scalpel. Muscle fascia was encountered and split with Bovie cautery. I dissected through the muscle layers with Bovie cautery. Sciatic nerve and vessels were identified. Sciatic nerve was anesthetized with 0.25% plain bupivacaine and cut on traction as proximal into the wound as a possible allowing it to retract. Vessels were ligated with 0 silk ties. Femoral nerve and vessel was identified and managed similarly. The femur was then identified. Periosteum was elevated with a Curtis. I transected the femur with a sagittal saw just proximal to the metaphyseal flare. A rasp was used to smooth the edges of the bone. The adductor tendons were retrieved and sutured with #2 Ethibond suture. I placed a drill hole through the lateral cortex of the distal femoral stump and passed the Ethibond suture through tying it in place, effectively performing an adductor myodesis. The wound was copiously irrigated with normal saline solution. Tourniquet was then deflated. Hemostasis was achieved with Bovie cautery. A round Hemovac drain was placed through the anterior lateral skin deep and sutured in place. I anesthetized the deep and superficial layers with 60 cc total 0.25% plain bupivacaine. I then reapproximated the fascia with #1 Vicryl suture in [id number] fashion in watertight fashion. Dermis was reapproximated buried 2-0 Vicryl suture. Skin was reapproximated with horizontal mattress 3-0 nylon suture. Sterile compression dressing was applied. Patient tolerated procedure well without complication. He was safely extubated in the operative suite and transferred to his gurney and subsequently PACU in stable condition. Need for skilled seismic survey assistant: Kristie Thomas PA-C was critical to the outcome of the case. During the course of the procedure the physician seismic survey assistant played a vital role. Her intimate knowledge of my steps in the procedure aided in safe and expedient completion of the procedure. The PA played a vital role in positioning particularly in obtaining the appropriate positioning. The PA was also vital in the retraction of soft tissues during the exposure and projecting vital structures. The PA was also vital and protecting soft tissues during times of bony cuts. She also played a vital role in closure with my direct supervision. Post Operative Plan: Weightbearing: Nonweightbearing left lower extremity Antibiotics: 2 g Ancef x3 doses postoperatively DVT Prophylaxis: Brilinta to restart tomorrow Grace: None Dressing: Maintain, plan to pull drain when less than 50 cc output per shift. X-Rays: None Pain Medication: Oxycodone, Tylenol. Follow-up: Follow-up with me in 2 weeks in the office for wound check, suture removal, and x-rays.
--- NOTE | 2021-09-09 14:22 | SUR.PHASEI ---
UPDATED VIA BLENDING PLANT OPERATOR
[2021-09-09] MEDS: Acetaminophen 500 MG Tablet 1000 MG PO ×2 (15:35→20:27)
--- NOTE | 2021-09-09 16:59 | PCM.PN.HOSP ---
Subjective Subjective 85-year-old male presented for revision of his BKA and became an AKA today. The transition was necessary due to a left intra-articular distal femur fracture. He is doing well postoperatively and we are consulted for medical management. Objective Data Objective Data Vital Signs: Vital Signs Temp Pulse Resp BP Pulse Ox 97.8 F 74 18 152/98 H 98 09/09/21 16:54 09/09/21 16:54 09/09/21 16:54 09/09/21 16:54 09/09/21 16:54 Oxygen Delivery Method Room Air Weight: 184 lb Body Mass Index (BMI) 23.6 Intake & Output: Intake and Output for Last 24 Hours 09/08/21 09/09/21 09/10/21 03:59 03:59 03:59 Intake Total 1110 / 1110 Output Total Balance 1080 / 1080 Lab / Micro Data Result Diagrams: 08/26/21 11:19 08/26/21 11:19 Micro: Microbiology 09/08/21 09:22 Interface Orders SARS-CoV-2 Antigen (Rapid) - Final Physical Exam Const alert, oriented x3 and no apparent distress General Appearance: cooperative HEENT normocephalic and moist oral mucous membranes Eyes PERRL, EOMs intact bilaterally and conjunctivae normal Neck supple and no JVD Resp normal respiratory effort, no retractions and no use of accessory muscles Auscultation: crackles; Negative for rales, rhonchi or wheezes Cardio regular rate, regular rhythm, S1 normal heart sound, S2 normal heart sound and no murmurs GI soft to palpation, non-tender and non-distended; Negative for hepatosplenomegaly Extremity no clubbing, cyanosis or edema Extremity Narrative: Left AKA with dressing intact Skin no rashes or lesions noted Neuro no focal motor deficits and no sensory deficits noted Psych affect normal Appearance: appropriate Assessment & Plan Assessment/Plan (1) Above knee amputation of left lower extremity: PLAN: 1. Left AKA due to a distal femur fracture ?Pain meds per primary ?PT/OT ?Continue with gentle fluids and recheck electrolytes in the morning 2. Peripheral vascular disease status post a BKA on the left as well as a carotid endarterectomy/A. fib status post ablation/chronic systolic CHF/CAD status post stent ?He is a vasculopath, and he also does continue to smoke. Cessation was discussed he does not want a nicotine patch ?EF of 27% as well as a history of strokes in the past and a cardiac arrest in 2020. There is remote history of acute alcohol use ?Continue with all of his home medications including aspirin, Brilinta, lisinopril, Coreg, Lipitor ?he does have bilateral lower extremity stents in his legs ?He also has an ICD in place 3. Hypercoagulable state with a history of PEs ?Unsure who he follows with but does not appear to be on anticoagulation likely given his Brilinta and aspirin DVT: SCDs Charges/Coding Visit Charges Inpatient E&M: 67959 Subs Hosp L3
[2021-09-09] MEDS: oxyCODONE 5 MG Tablet 10 MG PO ×2 (17:05→22:00)
[2021-09-09] MEDS: Atorvastatin Calcium 40 MG Tablet PO (20:27)
[2021-09-09] MEDS: Carvedilol 12.5 MG Tablet PO (20:27)
[2021-09-09] MEDS: Gabapentin 300 MG Capsule 900 MG PO (20:27)
--- NOTE | 2021-09-09 21:00 | NURSING ---
pt inability to void with urge bladder scanned for 982. pt st cathed for 750. bladder scanned for 45. pt states he feels a lot better
[2021-09-10 03:04] VITALS: BP 132/87; PULSE 75; RESP 18; TEMP 36.4; O2SAT 100
[2021-09-10] MEDS: Cefazolin 2 GM in 0.9% Normal Saline 100 ML IV ×2 (03:12→12:02)
[2021-09-10] MEDS: 0.9% Saline Lock 10 ML Syringe IV ×2 (03:12→17:39)
[2021-09-10] MEDS: oxyCODONE 5 MG Tablet 10 MG PO ×2 (03:12→12:15)
--- NOTE | 2021-09-10 04:17 | NURSING ---
pt states of inability to void, bladder scanned for greater than 999. st cathed for 1000cc. PVR of 12 at this time
[2021-09-10 05:49] LABS: Absolute Lymphocyte Count 1.24 X10^3/uL (0.83-4.51); Basophil# 0.02 X10^3/uL; Basophil% 0.2 % (0-1); Hematocrit 32.1 % (40-54); Hemoglobin 10.5 g/dL (13.0-16.5); Lymphocyte # 1.24 X10^3/ul (0.83-4.51); Lymphocyte % 12.7 % (19-41); Mean Corp Hgb Conc 32.7 g/dL (32-36); Mean Corpuscular Hgb 29.7 pg (27.0-32.0); Mean Corpuscular Volume 90.7 fL (80-94); Mean Platelet Vol. 9.7 fl (6.2-12.0); Monocyte# 0.42 X10^3/uL; Monocyte% 4.3 % (0-10); NRBC Flagged by Analyzer 0 % (0-5); Neutrophil # 8.03 X10^3/uL (2.7-7.7); Neutrophil % 82.3 % (47-70); Platelet Count 274 K/mm3 (150-450); RBC Distribution Width CV 14.2 % (11.6-14.6); RBC Distribution Width SD 46.5 fl (35.1-43.9); Red Blood Count 3.54 M/mm3 (4.6-6.2); White Blood Count 9.8 K/mm3 (4.4-11.0)
[2021-09-10 06:09] LABS: Anion Gap 5 (5-15); BUN 10 mg/dL (7-18); BUN/Creat Ratio 7.1 RATIO (10-20); Calcium,Total 7.9 mg/dL (8.5-10.1); Chloride 99 mmol/L (98-107); Creatinine, Serum 1.41 mg/dL (0.70-1.30); EST Glomerular Filtration Rate 55 mL/min (>60); Est Glom Filt Rate - Afr Amer 67 mL/min (>60); Estimated Creatinine Clearance 68.82 ml/min; Glucose 138 mg/dL (74-106); Potassium 4.3 mmol/L (3.5-5.1); Sodium Level 130 mmol/L (136-145)
[2021-09-10] MEDS: Gabapentin 600 MG Tablet PO (06:13)
[2021-09-10] MEDS: Acetaminophen 500 MG Tablet 1000 MG PO ×3 (06:13→21:19)
--- NOTE | 2021-09-10 07:50 | PCM.PN.ORT ---
Subjective Subjective Patient seen and examined. Patient states he had a rough night in terms of pain. States he got no sleep. Denies fevers or chills, nausea vomiting, chest pain or shortness of breath. Reports difficulty initiating urination requiring straight catheterization overnight. Objective Data Objective Data Vital Signs: Vital Signs Temp Pulse Resp BP Pulse Ox 97.6 F L 75 18 132/87 H 100 09/10/21 03:04 09/10/21 03:04 09/10/21 03:04 09/10/21 03:04 09/10/21 03:04 Oxygen Delivery Method Room Air Weight: 184 lb Body Mass Index (BMI) 23.6 Intake & Output: Intake and Output for Last 24 Hours 09/08/21 09/09/21 09/10/21 23:59 23:59 23:59 Intake Total 1355.5 / 1355.5 110 / 110 Output Total 890 / 890 1050 / 1050 Balance 465.5 / 465.5 -940 / -940 Lab / Micro Data Result Diagrams: 09/10/21 05:30 09/10/21 05:30 Labs: Laboratory Results - last 24 hr 09/10/21 05:30: WBC 9.8, RBC 3.54 L, Hgb 10.5 L, Hct 32.1 L, MCV 90.7, MCH 29.7, MCHC 32.7, RDW Std Deviation 46.5 H, RDW Coeff of Lawson 14.2, Plt Count 274, MPV 9.7, Immature Gran % (Auto) 0.500, Neut % (Auto) 82.3 H, Lymph % (Auto) 12.7 L, Marshall % (Auto) 4.3, Eos % (Auto) 0.0, Baso % (Auto) 0.2, Absolute Neuts (auto) 8.0 H, Absolute Lymphs (auto) 1.24, Nucleated RBC % 0 09/10/21 05:30: Sodium 130 L, Potassium 4.3, Chloride 99, Carbon Dioxide 26.0, Anion Gap 5, BUN 10, Creatinine 1.41 H, Estim Creat Clear Calc 68.82, Est GFR (MDRD) Af Amer 67, Est GFR (MDRD) Non-Af 55 L, BUN/Creatinine Ratio 7.1 L, Glucose 138 H, Calcium 7.9 L Micro: Microbiology 09/08/21 09:22 Interface Orders SARS-CoV-2 Antigen (Rapid) - Final Physical Exam Narrative General - A&Ox3, NAD. VSS/AF Left lower extremity -left above-knee amputation incisional dressing C/D/I. Sensation intact throughout. Hip flexion extension intact. Compartments soft and compressible. Drain in place. Assessment & Plan Assessment/Plan (1) Above knee amputation of left lower extremity: PLAN: POD#1 s/p left above-knee amputation - Pain control -increasing gabapentin to 900 mg 3 times daily, adding MS Contin scheduled twice daily, continue oxycodone - Medicine following for medical management - PT/OT - DVT PPX -restart home Brilinta and aspirin today -Postoperative urinary retention. Encourage patient to get out of bed today to help. Single dose of Flomax ordered. -I will reevaluate the patient later on this afternoon. If pain is more adequately controlled, ability to urinate is improved, consider discharge home later this evening versus tomorrow.
[2021-09-10] MEDS: Aspirin 81 MG TAB.CHEW PO (08:09)
[2021-09-10] MEDS: Carvedilol 12.5 MG Tablet PO ×2 (08:09→21:18)
[2021-09-10] MEDS: Lisinopril 10 MG Tablet PO (08:09)
[2021-09-10] MEDS: TICAGRELOR 90 MG TABLET PO ×2 (08:09→21:18)
[2021-09-10] MEDS: Tamsulosin HCl 0.4 MG Capsule PO ×2 (08:09→16:59)
[2021-09-10 09:00] VITALS: BP 134/87; PULSE 72; RESP 18; TEMP 36.6; O2SAT 100
[2021-09-10] MEDS: morphine SR 15 MG Tablet PO ×2 (09:55→21:18)
--- NOTE | 2021-09-10 10:26 | PCM.PN.HOSP ---
Subjective Subjective pain in stump. Had difficulty urinating requiring straight catheterization. Objective Data Objective Data Vital Signs: Vital Signs Temp Pulse Resp BP Pulse Ox 36.4 C L 75 18 132/87 H 100 09/10/21 03:04 09/10/21 03:04 09/10/21 03:04 09/10/21 03:04 09/10/21 03:04 Oxygen Delivery Method Room Air Weight: 83.461 kg Body Mass Index (BMI) 23.6 Intake & Output: Intake and Output for Last 24 Hours 09/08/21 09/09/21 09/10/21 23:59 23:59 23:59 Intake Total 1355.5 / 1355.5 110 / 110 Output Total 890 / 890 3050 / 3050 Balance 465.5 / 465.5 -2940 / -2940 Lab / Micro Data Result Diagrams: 09/10/21 05:30 09/10/21 05:30 Labs: Laboratory Results - last 24 hr 09/10/21 05:30: WBC 9.8, RBC 3.54 L, Hgb 10.5 L, Hct 32.1 L, MCV 90.7, MCH 29.7, MCHC 32.7, RDW Std Deviation 46.5 H, RDW Coeff of Lawson 14.2, Plt Count 274, MPV 9.7, Immature Gran % (Auto) 0.500, Neut % (Auto) 82.3 H, Lymph % (Auto) 12.7 L, Mccracken % (Auto) 4.3, Eos % (Auto) 0.0, Baso % (Auto) 0.2, Absolute Neuts (auto) 8.0 H, Absolute Lymphs (auto) 1.24, Nucleated RBC % 0 09/10/21 05:30: Sodium 130 L, Potassium 4.3, Chloride 99, Carbon Dioxide 26.0, Anion Gap 5, BUN 10, Creatinine 1.41 H, Estim Creat Clear Calc 68.82, Est GFR (MDRD) Af Amer 67, Est GFR (MDRD) Non-Af 55 L, BUN/Creatinine Ratio 7.1 L, Glucose 138 H, Calcium 7.9 L Micro: Microbiology 09/08/21 09:22 Interface Orders SARS-CoV-2 Antigen (Rapid) - Final Physical Exam Const alert and no apparent distress Resp normal respiratory effort, no retractions, no use of accessory muscles and clear to auscultation bilaterally Cardio regular rate, regular rhythm, S1 normal heart sound and S2 normal heart sound GI normal to inspection, nondistended, normoactive bowel sounds, soft to palpation, non-tender and non-distended Extremity Extremity Narrative: right stump wrapped. drain in place. Assessment & Plan Assessment/Plan (1) Above knee amputation of left lower extremity: (2) Urinary retention: PLAN: 1. s/p Left AKA mgmt per orthopaedics drain in place 2. urinary retention due to BPH start tamsulosin may require recurrent straight catheterization. avoid weber placement for now given risk of infection. 3. PAD stable continue ticagrelor aspirin Disposition: medically stable. may require intermittent straight catheterization. Could be discharged with catheters and instructions to use, if necessary. Charges/Coding Visit Charges Inpatient E&M: 08731 Subs Hosp L2
--- NOTE | 2021-09-10 11:00 | CASEMGMT ---
RN ANNABELLA Face to Face with patient for initial transition planning/care coordination assessment. RN CM introduced self and role at [facility]. Patient lying in bed, alert and oriented. Patient willing to participate in assessment and is able to answer all questions appropriately. Care providers, pharmacy, and demographics verified. Patient wishes to discharge home, denies need for home health at this time. Patient states he has no further needs or concerns at this time. CM to follow for discharge planning needs that may arise. PCP: Gavin Specialists: adam Kowalski; Bebeto, almond paste mixer Preferred Pharmacy: [facility], [facility] retail at discharge Insurance: UMR Prescription Benefit: yes Living Will/HPOA: yes, Roxana Cee HPOA LNOK: Living Arrangements: Patient lives with in a single story home with ramp to enter the home. Patient states he was independent at home prior to surgery. Transportation: self, DME/HHC: Patient states he has shower chair, crutches, walker, wheelchair, and slide board at home. 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 Patient denies further needs at discharge. Disposition Plan: Patient to discharge home with family support and follow-up plans in place. Joan PATEL, RN, CM
[2021-09-10] MEDS: Gabapentin 600 MG Tablet 900 MG PO ×2 (12:02→16:58)
--- NOTE | 2021-09-10 12:05 | CHAPLAIN ---
Type of Pastoral Visit _x__ Initial Visit ___ Follow-up Visit ___ On-call Visit ___ General Patient Visit ___ Spiritual Assessment ___ Family Conference ___ Bereavement ___ Rapid Response ___ Code Blue ___ Other (describe below) Pastoral Care Referral From _x__ Patient ___ Family ___ Nurse ___ Physician ___ Truck And Transport Mechanic ___ Group Tester ___ Other (describe below) Sacrament/Intervention _x__ Active listening ___ Anointing ___ Sabianist ___ Bereavement ___ Communion ___ Misty exploration ___ ___ Life review _x__ Prayer ___ Reconciliation ___ Sacrament of Sick _x__ Supportive presence ___ Wedding ___ Other (describe below) Pastoral Comments patient has been admitted here before and always welcomes spiritual care support; pt eager to talk and express good season of life until recent surgery that was needed; spouse is with him; spouse speaks of her own recent surgery; presence, prayer, and support given to both
[2021-09-10 14:20] VITALS: BP 129/85; PULSE 87; RESP 18; TEMP 36.3; O2SAT 100
[2021-09-10] MEDS: Juven (unflavored) Packet 1 PACKET PO (16:58)
[2021-09-10] MEDS: HYDROmorphone 1 MG/ML Syringe IV ×2 (17:38→22:25)
[2021-09-10 18:26] VITALS: BP 137/97; PULSE 88; RESP 18; TEMP 36.5; O2SAT 99
[2021-09-10 19:20] VITALS: BP 127/96; PULSE 87; RESP 18; TEMP 36.8; O2SAT 99
[2021-09-10] MEDS: Atorvastatin Calcium 40 MG Tablet PO (21:18)
[2021-09-11] MEDS: oxyCODONE 5 MG Tablet 10 MG PO ×2 (02:49→07:37)
[2021-09-11 02:52] VITALS: BP 128/84; PULSE 82; RESP 18; TEMP 36.4; O2SAT 100
[2021-09-11] MEDS: Acetaminophen 500 MG Tablet 1000 MG PO ×2 (05:29→14:43)
[2021-09-11] MEDS: Gabapentin 600 MG Tablet 900 MG PO ×2 (07:39→11:54)
[2021-09-11] MEDS: Aspirin 81 MG TAB.CHEW PO (07:40)
[2021-09-11 08:00] VITALS: PULSE 74; RESP 18
[2021-09-11 08:19] VITALS: BP 104/79; PULSE 74; RESP 18; TEMP 36.5; O2SAT 100
--- NOTE | 2021-09-11 08:41 | PN.HOSP_ITS ---
Subjective Subjective Urinating well. No longer requiring straight catheterization. Objective Data Objective Data Vital Signs: Vital Signs Temp Pulse Resp BP Pulse Ox 36.5 C L 74 18 104/79 100 09/11/21 08:19 09/11/21 08:19 09/11/21 08:19 09/11/21 08:19 09/11/21 08:19 Oxygen Delivery Method Room Air Weight: 83.5 kg Body Mass Index (BMI) 23.6 Intake & Output: Intake and Output for Last 24 Hours 09/09/21 09/10/21 09/11/21 23:59 23:59 23:59 Intake Total 1355.5 / 1355.5 720 / 720 700 / 700 Output Total 890 / 890 4445 / 4445 1355 / 1355 Balance 465.5 / 465.5 -3725 / -3725 -655 / -655 Lab / Micro Data Result Diagrams: 09/10/21 05:30 09/10/21 05:30 Micro: Microbiology 09/08/21 09:22 Interface Orders SARS-CoV-2 Antigen (Rapid) - Final Physical Exam Const alert and no apparent distress Resp normal respiratory effort, no retractions and no use of accessory muscles Cardio regular rate, regular rhythm, S1 normal heart sound and S2 normal heart sound GI normal to inspection, nondistended, normoactive bowel sounds, soft to palpation, non-tender and non-distended Extremity Extremity Narrative: left stump wrapped--did not remove. Assessment & Plan Assessment/Plan (1) Above knee amputation of left lower extremity: (2) Urinary retention: PLAN: 1. s/p Left AKA mgmt per orthopaedics drain in place 2. urinary retention resolved due to BPH continue tamsulosin (Rx sent to [facility] pharmacy) 3. PAD stable continue ticagrelor aspirin Disposition: medically stable. home medications reconciled for discharge. Will sign off. Please, call with questions. Charges/Coding Visit Charges Inpatient E&M: 08035 Subs Hosp L2
[2021-09-11] MEDS: morphine SR 15 MG Tablet PO (10:20)
[2021-09-11] MEDS: TICAGRELOR 90 MG TABLET PO (10:21)
[2021-09-11] MEDS: Carvedilol 12.5 MG Tablet PO (10:21)
[2021-09-11] MEDS: Lisinopril 10 MG Tablet PO (10:21)
[2021-09-11] MEDS: 0.9% Saline Lock 10 ML Syringe IV (10:57)
[2021-09-11] MEDS: Ondansetron 4 MG/2 ML Vial IV (10:57)
[2021-09-11] MEDS: Polyethylene Glycol 3350 17 GM PACKET PO (11:54)
--- NOTE | 2021-09-11 12:00 | CASEMGMT ---
DARSHAN WINCHESTER updated by Dr. Kowalski that patient is requesting HHC to assist with dressing changes. DARSHAN WINCHESTER updated Dr. Kowalski that HHC could be setup on Monday. Dr. Kowalski states that dressing change does not need to be completed until Monday. DARSHAN WINCHESTER in to discuss HHC with patient. Patient provided with list of in-network HHC agency. Patient provided preferred agencies 1. [facility]. [facility]. DARSHAN WINCHESTER updated patient that referral will be sent on Monday and CM will call patient with updates. Patient agreeable and voiced understanding. CM to send HHC on Wednesday 09/13 and follow up with patient.
--- NOTE | 2021-09-11 12:37 | PCM.DC ---
Discharge Instructions Follow Up Care Test Results: Test results from this visit will be discussed in further detail at your follow-up appointment, if applicable. Discharge Plan Admission Admit Date/Time: 09/09/21 13:20 Primary Reason for Your Visit: Left above-knee amputation Attending Provider: Alton Kingsley Primary Care Provider: Dharmesh Alonso Consulting Providers: Rc Hernandez Instructions Additional Instructions / Restrictions: Okay to shower on postoperative day #4, no tub soaks Change dressing 3 times per week, home health care to be coordinated 09/13/2021 Dressing instructions: Apply Adaptic, 4 x 4's, Kerlix, tubular gauze, and Fernando bandage Ice as needed Discharge Orders/Prescriptions Prescriptions: New tamsulosin 0.4 mg Capsule 0.4 mg PO 1730 Qty: 30 RF: 0 polyethylene glycol 3350 17 gram Powder In Packet 17 g PO BID 7 Days Qty: 14 RF: 0 morphine 15 mg Tablet Extended Release 15 mg PO BID 7 Days Qty: 14 RF: 0 oxycodone 5 mg Tablet 10 mg PO Q6H PRN PRN (Reason: Pain Score 6-10) 7 Days Qty: 56 RF: 0 ondansetron 4 mg tablet,disintegrating 4 mg PO Q8H PRN (Reason: nausea and vomiting) 5 Days Qty: 15 RF: 0 docusate sodium [Colace] 100 mg capsule 100 mg PO BID 7 Days Qty: 14 RF: 0 Continued nitroglycerin 0.4 mg tablet, sublingual 0.4 mg sublingual Q5-15M PRN (Reason: chest pain) RF: 0 atorvastatin 40 mg tablet 40 mg PO DAILY Qty: 90 RF: 3 ticagrelor 90 mg tablet 90 mg PO BID Qty: 180 RF: 3 aspirin 81 MG tablet,chewable 81 mg PO DAILY@0800 RF: 0 gabapentin 600 mg tablet 600 mg PO TID RF: 0 carvedilol 12.5 mg tablet 12.5 mg PO BID Qty: 90 RF: 1 lisinopril 10 mg tablet 10 mg PO DAILY Qty: 90 RF: 1 Referrals / Follow Up: Dharmesh Alonso MD [Primary Care Provider] - Rc Kowalski DO [STAFF PHYSICIAN] - Within 2 Weeks
--- NOTE | 2021-09-11 12:39 | PCM.DC.SUM ---
Providers Date of Admission: 09/09/21 Primary Care Physician: Dr. Dharmesh Alonso MD Consultations 09/09/21 13:46 Consult: Hospitalist Routine Consulting Provider: Rc Hernandez Reason for Consult: Post-op medical management EMERGENT Consult: No MD Notified: Yes Date Notified: 09/09/21 Time Notified: 15:29 Method of Notification: Text Comments:: Please consult hospitalist provider Reason For Visit: LT ABOVE KNEE AMPUTATION Diagnosis Discharge Diagnosis (1) Above knee amputation of left lower extremity: Status: Acute Code(s): S78.112A - Complete traumatic amputation at level between left hip and knee, initial encounter Plan: POD#2 s/p left above-knee amputation -Patient stable, pain improved. Drain pulled. Plan for discharge home today with home health care for dressing changes. - Pain control -discharged home on home Neurontin, scheduled MS Contin, oxycodone as needed for breakthrough pain - DVT PPX -early mobilization, SCD, Brilinta and aspirin - Case management - D/C planning (2) Urinary retention: Status: Acute Code(s): R33.9 - Retention of urine, unspecified Plan: Resolved. Flomax ordered by hospitalist. Medications at Discharge Home Medications aspirin 81 mg PO DAILY@0800 11/07/19 nitroglycerin 0.4 mg sublingual tablet 0.4 mg SUBLINGUAL Q5-15M PRN tab 04/08/20 atorvastatin 40 mg tablet 40 mg PO DAILY #90 tab 02/17/21 ticagrelor 90 mg tablet 90 mg PO BID #180 tab 02/17/21 carvedilol 12.5 mg tablet 12.5 mg PO BID #90 tab 05/17/21 lisinopril 10 mg tablet 10 mg PO DAILY #90 tab 08/19/21 gabapentin 600 mg PO TID 09/09/21 docusate sodium [Colace] 100 mg PO BID 7 Days #14 cap 09/11/21 morphine 15 mg PO BID 7 Days #14 tab 09/11/21 ondansetron 4 mg PO Q8H PRN 5 Days #15 tab 09/11/21 oxycodone 10 mg PO Q6H PRN PRN 7 Days #56 tab 09/11/21 polyethylene glycol 3350 17 g PO BID 7 Days #14 packet 09/11/21 tamsulosin 0.4 mg PO 1730 #30 cap 09/11/21 Hospital Course Summary of Care Provided Hospital Course: Patient underwent uncomplicated left above-knee amputation 09/09/2021. He was admitted postoperatively for pain control and medical monitoring. He experienced postoperative urinary retention, which was improved with mobilization and Flomax. Patient was seen by the hospitalist service on consultation. Drain was pulled on postoperative day #2. After titrating pain medication, pain was improved on postoperative day #2 and the patient felt comfortable going home on an oral pain regimen. He worked well with physical and occupational therapies. He was able to be safely discharged home on postoperative day #2 in stable condition. Physical Exam Narrative General - A&Ox3, NAD. VSS/AF Left lower extremity -left above-knee amputation incisional dressing C/D/I. Sensation intact throughout. Hip flexion extension intact. Compartments soft and compressible. Drain in place. Weight / BMI Weight Weight: 184 lb 1.376 oz Body Mass Index (BMI) 23.6 ABG / Lab / Microbiology Data Result Diagrams: 09/10/21 05:30 09/10/21 05:30 Microbiology: Microbiology 09/08/21 09:22 Interface Orders SARS-CoV-2 Antigen (Rapid) - Final Meaningful Use Info Meaningful Use Diagnoses (Choose all that apply): None applicable Discharge Plan Admission Admit Date/Time: 09/09/21 13:20 Primary Reason for Your Visit: Left above-knee amputation Attending Provider: Alton Kingsley Primary Care Provider: Dharmesh Alonso Consulting Providers: Rc Hernandez Instructions Additional Instructions / Restrictions: Okay to shower on postoperative day #4, no tub soaks Change dressing 3 times per week, home health care to be coordinated 09/13/2021 Dressing instructions: Apply Adaptic, 4 x 4's, Kerlix, tubular gauze, and Fernando bandage Ice as needed Discharge Orders/Prescriptions Prescriptions: New tamsulosin 0.4 mg Capsule 0.4 mg PO 1730 Qty: 30 RF: 0 polyethylene glycol 3350 17 gram Powder In Packet 17 g PO BID 7 Days Qty: 14 RF: 0 morphine 15 mg Tablet Extended Release 15 mg PO BID 7 Days Qty: 14 RF: 0 oxycodone 5 mg Tablet 10 mg PO Q6H PRN PRN (Reason: Pain Score 6-10) 7 Days Qty: 56 RF: 0 ondansetron 4 mg tablet,disintegrating 4 mg PO Q8H PRN (Reason: nausea and vomiting) 5 Days Qty: 15 RF: 0 docusate sodium [Colace] 100 mg capsule 100 mg PO BID 7 Days Qty: 14 RF: 0 Continued nitroglycerin 0.4 mg tablet, sublingual 0.4 mg sublingual Q5-15M PRN (Reason: chest pain) RF: 0 atorvastatin 40 mg tablet 40 mg PO DAILY Qty: 90 RF: 3 ticagrelor 90 mg tablet 90 mg PO BID Qty: 180 RF: 3 aspirin 81 MG tablet,chewable 81 mg PO DAILY@0800 RF: 0 gabapentin 600 mg tablet 600 mg PO TID RF: 0 carvedilol 12.5 mg tablet 12.5 mg PO BID Qty: 90 RF: 1 lisinopril 10 mg tablet 10 mg PO DAILY Qty: 90 RF: 1 Referrals / Follow Up: Dharmesh Alonso MD [Primary Care Provider] - Rc Kowalski DO [STAFF PHYSICIAN] - Within 2 Weeks Disposition Disposition (needs filled in before D/C Order can be placed): Home, Self Care
[2021-09-11 14:32] VITALS: BP 115/81; PULSE 70; RESP 16; TEMP 36.8; O2SAT 98
--- NOTE | 2021-09-13 10:34 | CASEMGMT ---
DARSHAN WINCHESTER called and made referral to [facility] for HHC for senior care. [facility] is able to accept the patient but cannot see until authorization given by insurance. Per Kathleen, insurance states they have up to 15 day to approve. Kathleen stated they are requested it be done urgently. DARSHAN WINCHESTER called and updated the patient. Patient states he will be able to complete dressing change until [facility] approved. Patient inquired about additional dressing supplies. DARSHAN WINCHESTER advised patient to called Dr. Kowalski for prescription for wound care supplies and to schedule follow-up appts. Patient voiced understanding and had no further questions or concerns at this time. DARSHAN WINCHESTER updated Dr. Kowalski regarding HHC setup.
== END 2021-09-11 15:00 | disposition home or self-care (01) | DRG 908 ==
LOC: ACINP 13:45 → MS3 13:45
PROVIDERS: Anesthesiology; Family Medicine; Admitting Provider Student in an Organized Health Care Education/Training Program; PCP Internal Medicine; Referring Provider Student in an Organized Health Care Education/Training Program
PROC: 0Y6D0Z3 Detachment at Left Upper Leg, Low, Open Approach (ICD-10-PCS; principal; 2021-09-09 10:05)
DX: S78.112A Complete traumatic amputation at level between left hip and knee, initial encounter (principal); I50.22 Chronic systolic (congestive) heart failure; D68.59 Other primary thrombophilia; Z89.612 Acquired absence of left leg above knee; I73.9 Peripheral vascular disease, unspecified; F17.200 Nicotine dependence, unspecified, uncomplicated; I25.10 Atherosclerotic heart disease of native coronary artery without angina pectoris; N40.1 Benign prostatic hyperplasia with lower urinary tract symptoms; R33.9 Retention of urine, unspecified; Z95.5 Presence of coronary angioplasty implant and graft; Z86.711 Personal history of pulmonary embolism
CPT/HCPCS: 36415; 71046; 80048; 85025; 85027; 87426; 88307; 88311; 99251; C9803; J7120; A4216; G0463; J2405

== ENCOUNTER → 2021-10-11 | Outpatient (CLI) | payer MEDICARE, SELFPAY ==
[2021-02-16 11:25] VITALS: BMI 29.8
[2021-10-11 12:07] LABS: Absolute Lymphocyte Count 2.14 X10^3/uL (0.83-4.51); Absolute Neutrophil Count 3.9 X10^3/uL (2.0-7.7); Basophil# 0.08 X10^3/uL; Basophil% 1.1 % (0-1); Eosinophil# 0.65 X10^3/uL; Hematocrit 38.5 % (40-54); Hemoglobin 12.2 g/dL (13.0-16.5); Lymphocyte # 2.14 X10^3/ul (0.83-4.51); Lymphocyte % 29.5 % (19-41); Mean Corp Hgb Conc 31.7 g/dL (32-36); Mean Corpuscular Hgb 29.6 pg (27.0-32.0); Mean Corpuscular Volume 93.4 fL (80-94); Mean Platelet Vol. 9.5 fl (6.2-12.0); Monocyte# 0.52 X10^3/uL; Monocyte% 7.2 % (0-10); NRBC Flagged by Analyzer 0 % (0-5); Neutrophil # 3.85 X10^3/uL (2.7-7.7); Neutrophil % 52.9 % (47-70); Platelet Count 280 K/mm3 (150-450); RBC Distribution Width CV 14.6 % (11.6-14.6); RBC Distribution Width SD 49.9 fl (35.1-43.9); Red Blood Count 4.12 M/mm3 (4.6-6.2); White Blood Count 7.3 K/mm3 (4.4-11.0)
[2021-10-11 12:25] LABS: ALB/GLOB Ratio 0.8 RATIO (0.9-2.4); AST(SGOT) 17 U/L (15-37); Alanine Aminotransfer ALT/SGPT 31 U/L (16-61); Albumin, Serum 3.3 g/dL (3.2-5.0); Alkaline Phosphatase 150 U/L (45-117); Anion Gap 6 (5-15); BUN 10 mg/dL (7-18); BUN/Creat Ratio 7.2 RATIO (10-20); Calcium,Total 9.2 mg/dL (8.5-10.1); Chloride 101 mmol/L (98-107); Creatinine, Serum 1.38 mg/dL (0.70-1.30); EST Glomerular Filtration Rate 57 mL/min (>60); Est Glom Filt Rate - Afr Amer 69 mL/min (>60); Globulin 4.4 g/dL (2.2-4.2); Glucose 91 mg/dL (74-106); Potassium 4.8 mmol/L (3.5-5.1); Protein, Total 7.7 g/dL (6.4-8.2); Sodium Level 133 mmol/L (136-145)
== END | disposition home or self-care (01) ==
LOC: BIMLAB 08:44
PROVIDERS: PCP Internal Medicine; Referring Provider Internal Medicine; Visit Provider Internal Medicine
DX: R74.8 Abnormal levels of other serum enzymes (principal); I10 Essential (primary) hypertension
CPT/HCPCS: 36415; 80053; 85025

== ENCOUNTER → 2021-10-20 | Outpatient (CLI) | payer MEDICARE, SELFPAY ==
[2021-02-16 11:25] VITALS: BMI 29.8
--- NOTE | 2021-10-20 07:10 | US_ITS ---
STUDY: ABDOMINAL ULTRASOUND - ELASTOGRAPHY REASON FOR VISIT: Male, 56 years old. Fatty infiltration of the liver. Right upper quadrant pain. TECHNIQUE: Liver stiffness measurements were obtained on a Cytodyn RS 85 ultrasound machine using a CA 1-7 probe following the SRU guidelines. 3 measurements were obtained using a 2-D-SWE method. The IQR/M was 23 % suggesting a quality data set. TECHNICAL QUALITY: Adequate. COMPARISON: Comparison is made with prior study done earlier in the day. FINDINGS: Liver: Fatty infiltration of the liver. Median liver stiffness measured 5.7 kPa. US/Elastography Parenchyma/Organ IMPRESSION: Liver stiffness measures 5.7 kPa compatible with F0-F1 (Normal to mild liver fibrosis) Metavir score. Electronically Signed: Earnest Humphrey MD at 9:26 EDT ,
--- NOTE | 2021-10-20 07:10 | US_ITS ---
STUDY: ABDOMINAL ULTRASOUND - RIGHT UPPER QUADRANT REASON FOR VISIT: Male, 56 years old elevated liver enzymes -- eval CBD specifically -- EVAL CBD -- HX OF CHOLECYSTECTOMY -- PREVIOUS RUQ PAIN X 1 MONTH AGO TECHNIQUE: Ultrasound evaluation of the right upper quadrant was performed with real-time and static tompkins-scale imaging. TECHNICAL QUALITY: Adequate. COMPARISON: None. FINDINGS: Liver: The liver measures 16.1 cm. There is increased echogenicity consistent with fatty infiltration. The bile ducts are within normal limits. There is hepatic color flow. The direction of portal flow is hepatopetal. There is no demonstrated mass lesion. Gallbladder: The patient is status post cholecystectomy. Common Bile Duct (C.B.D.): The common bile duct measures 5.4 mm. Pancreas: Normal size of the head, body and tail of the pancreas. There is normal echogenicity of the pancreas. There is no demonstrated pancreatic mass or cyst. Right Kidney: Normal size of the right kidney. The right kidney measures 11.6 cm x 5.4 cm x 5.1 cm. Normal renal cortex. The right cortex measures 2.5 cm. There is no demonstrated renal mass or cyst. There is no right hydronephrosis. US/Abdomen Limited IMPRESSION: Fatty infiltration of the liver. Status post cholecystectomy. Electronically Signed: Eranest Humphrey MD at 9:24 EDT ,
== END | disposition home or self-care (01) ==
PROVIDERS: PCP Internal Medicine; Referring Provider Nurse Practitioner Adult Health; Visit Provider Nurse Practitioner Adult Health
DX: R74.8 Abnormal levels of other serum enzymes (principal)
CPT/HCPCS: 76705; 76981

== ENCOUNTER 2021-12-12 18:12 | Inpatient (IN) | payer MEDICARE, SELFPAY ==
[2021-02-16 11:25] VITALS: BMI 29.8
[2021-12-12] VITALS (12 sets, daily range): BP systolic 61–98; BP diastolic 38–69; PULSE 77–85; RESP 10–17; TEMP 36.2–36.6; O2SAT 100; BMI 21.6
--- NOTE | 2021-12-12 18:46 | EKG12_ITS ---
Test Reason : tachy Blood Pressure : / mmHG Vent. Rate : 115 BPM Atrial Rate : 064 BPM P-R Int : 000 ms QRS Dur : 130 ms QT Int : 348 ms P-R-T Axes : 000 -27 109 degrees QTc Int : 481 ms ATRIAL SENSED VENTRICULAR PACED RHYTHM Abnormal ECG Confirmed by MAHSA ABDI MD ([id number]), editor in chief newspaper ELIESER SAMSON ([id number]) on 12/13/2021 11:19:53 AM Referred By: Griselda Confirmed By:MAHSA ABDI MD
--- NOTE | 2021-12-12 18:48 | EDS_ITS ---
HPI History of Present Illness Chief Complaint: Vision Prob Detail of Chief Complaint: Patient states he is seeing a white light with both eyes. Informant: patient Onset/Context/Timing Onset: Today Current Severity: Mild Maximum Severity: Mild Narrative Narrative: 56-year-old male with extensive past medical history of 2 prior strokes, left knee amputation above the knee secondary to arterial clots, CAD, CHF, DVT and PE, SVT, dilated cardiomyopathy on the blood thinner Brilinta. He has a pacer defibrillator. Patient states that today he is felt short of breath and had bilateral loss of vision in his eyes where he says he is seeing a bright light and cannot see. This all started 4 hours ago. Denies any chest pain. Denies any recent illness. Denies any recent med changes. He denies nausea, vomiting or diarrhea. No melena or fever. No dysuria. Denies any recent hospitalization. 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 Acute CVA (cerebrovascular accident) Alcohol use Anemia Arthritis Atherosclerosis of coronary artery of [place] heart without angina pectoris CAD (coronary artery disease) Cardiac arrest Cardiology follow-up encounter CHF (congestive heart failure) Chronic osteomyelitis of left tibia Chronic renal failure, stage 2 (mild) CVA (cerebral vascular accident) Debility Defibrillator discharge Depression Dilated cardiomyopathy Elevated liver enzymes Elevated serum GGT level Essential hypertension Gallstones History of DVT (deep vein thrombosis) History of echocardiogram History of ischemic left MCA stroke History of pacemaker History of pulmonary embolism History of stress test History of sudden cardiac arrest successfully resuscitated HLD (hyperlipidemia) Hx of leg amputation Hypercoagulable state Injury of back Ischemic ulcer of right foot 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 of 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 Methicillin resistant Staphylococcus aureus infection Neuropathy Normochromic normocytic anemia Osteomyelitis of left lower extremity Pain of amputation stump of left lower extremity Paroxysmal atrial fibrillation Peripheral arterial disease Personal history of osteomyelitis Preoperative evaluation to rule out surgical contraindication Shortness of breath on exertion SVT (supraventricular tachycardia) SVT (supraventricular tachycardia) Tobacco abuse Ulceration of below knee amputation stump Uses wheelchair Vascular disease Wears glasses Home Medications aspirin 81 mg chewable tablet 81 mg PO DAILY@0800 [facility] 11/07/19 [History Last Taken 09/04/21] nitroglycerin 0.4 mg sublingual tablet 0.4 mg sublingual Q5-15M PRN chest pain 04/08/20 [History Last Taken 08/10/20] atorvastatin 40 mg tablet 40 mg PO DAILY cholesterol #90 tabs 02/17/21 [Rx Last Taken 09/04/21] ticagrelor 90 mg tablet 90 mg PO BID Corrected RX: drug is to be BID #180 tabs 02/17/21 [Rx Last Taken 09/04/21] lisinopril 10 mg tablet 10 mg PO DAILY blood pressure #90 tabs 08/19/21 [Rx Last Taken 09/09/21] docusate sodium 100 mg capsule (Colace) 100 mg PO BID 7 days #14 caps 09/11/21 [Rx Last Taken Unknown] ondansetron 4 mg disintegrating tablet 4 mg PO Q8H PRN nausea and vomiting 5 days #15 tabs 09/11/21 [Rx Last Taken Unknown] oxycodone 5 mg tablet 10 mg PO Q6H PRN PRN Pain Score 6-10 7 days #56 tabs 09/11/21 [Rx Last Taken Unknown] polyethylene glycol 3350 17 gram oral powder packet 17 g PO BID 7 days #14 packets 09/11/21 [Rx Last Taken Unknown] gabapentin 600 mg tablet 600 mg PO TID pain #315 tabs 10/04/21 [Rx Last Taken Unknown] carvedilol 12.5 mg tablet 12.5 mg PO BID blood pressure #180 tabs 10/11/21 [Rx Last Taken Unknown] tamsulosin 0.4 mg capsule 0.4 mg PO DAILY #90 caps 10/11/21 [Rx Last Taken Unknown] furosemide 40 mg tablet 40 mg PO DAILY #90 tabs 12/06/21 [Rx Last Taken Unknown] Allergy/AdvReac Type Severity Reaction Status Date / Time pollen extracts Allergy Intermediate unknown Verified 12/12/21 18:17 Penicillins Allergy Swelling Verified 12/12/21 18:17 adhesive tape AdvReac Rash Verified 12/12/21 18:17 oxycodone [From OxyContin] AdvReac it makes Verified 12/12/21 18:17 me go nuts Family History Mother Diabetes CVA (cerebral vascular accident) Myocardial infarction Father Cancer Prostate Kidney disease Surgical History History of cardiac catheterization History of cardiac radiofrequency ablation (~02/25/13) History of carotid endarterectomy History of cholecystectomy History of coronary artery stent placement History of implantable cardiac defibrillator (ICD) History of left heart catheterization (LHC) (11/29/19) History of surgical removal of testicle Status post below knee amputation of left lower extremity Social History (Updated 12/12/21 @ 22:[address] Stephanie Villalobos MD) household members: spouse Smoking Status: Current some day smoker tobacco type: cigarettes how long ago did patient quit smoking: Quit 03/2019, prior since teen 2 ppd, decreased at end to 1/2 ppd. alcohol intake: current details: Was previously sober, EtOH abuse. substance use type: does not use caffeine: No what type of physical activity do you participate in: walking frequency: daily additional social history: DOES USE ASPIRIN DOES USE IBUPROFEN ROS ROS ED ROS Narrative Denies recent illness. Review of Systems ROS Unobtainable: Denies due to encephalopathy Constitutional Constitutional ED: Denies chills Eyes Eyes: Denies blurry vision ENT ENT ED: Denies ear pain Cardiovascular Cardiovascular: Denies chest pain Respiratory/Chest Respiratory/Chest: Denies cough Gastrointestinal Gastrointestinal: Denies abdominal pain Genitourinary Genitourinary ED: Denies dysuria or hematuria Musculoskeletal Musculoskeletal: Denies arthralgias Integumentary Denies abscess Neurologic Neurologic: Denies headache(s) Psychiatric Psychiatric: Denies anxiety Endocrine Endocrinology: Denies cold intolerance Hematologic/Lymphatic Hematologic/Lymphatic: Reports none Allergic/Immunologic Allergic/Immunologic ED: Denies mouth swelling or tongue swelling EXAM Physical Exam Narrative Exam Narrative: 6-year-old male vital signs initial pressure 74/54 Gretchen reading accurately. Because he is sitting upright in bed and he has no symptoms other than his visual change. Pulse ox 90% on room air no signs hypoxia. He is in no distress. H EENT exam pupils round endolitis motions are intact. No facial droop. Normal speech. No trauma to his head or face. Neck nontender. Lungs clear to auscultation. Heart regular rhythm rate about 85 no murmur. Chest wall nontender. Abdomen soft nontender. Moving all 4 extremities. He does have a left [id number] amputation. Right calf is nontender no edema. 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 Neurologically is awake and alert with no focal motor deficits. Const Vital Signs: 12/12/21 18:14 12/12/21 18:32 12/12/21 19:02 Temperature 97.2 F L Temperature Source Temporal Pulse Rate 85 Respiratory Rate 14 Respiratory Effort Normal Non-Labored Blood Pressure 74/54 L 62/48 L Blood Pressure Mean 60 52 Pulse Ox 100 Oxygen Delivery Method Room Air 12/12/21 19:29 12/12/21 20:00 12/12/21 20:29 Temperature Temperature Source Pulse Rate 85 Respiratory Rate Respiratory Effort Blood Pressure 61/38 L 71/51 L 61/44 L Blood Pressure Mean 45 57 49 Pulse Ox Oxygen Delivery Method 12/12/21 21:55 12/12/21 22:21 12/12/21 23:00 Temperature Temperature Source Pulse Rate 79 Respiratory Rate 11 L Respiratory Effort Blood Pressure 68/53 L 68/53 L 77/52 L Blood Pressure Mean 58 58 60 Pulse Ox 100 Oxygen Delivery Method Room Air Positive well nourished and well developed; Negative for obese, cachectic, contractures or unkempt General Appearance ED: well developed; Negative for unkempt, cachectic, contractures or pallor Nutritional Appearance: Negative for cachectic or obese HEENT Reports moist mucous membranes; Denies dry mucous membranes Negative for trauma Mouth ED: No dry mucous membranes Mouth: No dry mucous membranes Eyes PERRL and EOMs intact bilaterally General Eye ED: Negative for pale conjunctiva or scleral icterus Neck no lymphadenopathy, supple and no JVD General: Negative for tenderness Lymph Lymphatic: Negative for other Chest Wall inspection of chest normal and palpation of chest normal Resp normal respiratory effort Effort and Inspection: Negative for retractions Auscultation: Negative for rales or rhonchi Cardio regular rate, regular rhythm, S1 normal heart sound, S2 normal heart sound and no murmurs GI normal to inspection, nondistended, normoactive bowel sounds, non-tender, non- distended and no masses Inspection: Negative for abdominal distention Auscultation: normoactive bowel sounds Palpation: soft; Negative for tender or guarding Back/Spine no CVA tenderness General Back: Negative for CVA tenderness Cervical Spine: Negative for cervical spine tenderness Thoracic Spine / Upper Back: Negative for thoracic spinal tenderness Lumbar Spine / Lower Back: Negative for lumbar spinal tenderness Extremity normal to inspection Extremity Narrative: Left [id number] amputation. General Extremety ED: Negative for edema or tenderness General Extremity: Negative for edema Neuro oriented x3 Sensorium / Orientation: alert; Negative for orientation impaired, lethargic or stuporous Motor Exam: strength 5/5 throughout; Negative for general weakness Psych mental status grossly normal Appearance: Negative for unkempt Attitude: No agitated Mood & Affect: Negative for depressed or anxious Skin no rashes or lesions noted and no wounds General Skin Exam: elasticity normal; Negative for jaundice or pallor Rashes: No rashes noted Trauma: Negative for abrasion Wounds: Negative for wounds noted MDM MDM MDM Narrative Medical decision making narrative: 56-year-old male extensive past cardiac history. Presents complaining of seeing a white light with either of both eyes decreasing his vision. He presents hypotensive. Is a history of a dilated cardiomyopathy with an EF of around 30%. Multiple repeat exams in spite of his age and his low pressure that we have checked multiple different lines with different cuffs and manual are all a patient's blood pressure does seem to be improving with IV fluid boluses. Round 60-70 systolic. He is sitting upright talking. He is in no distress. His labs are unremarkable other than his lactic acid was elevated alcohol. Spoke to the hospitalist. We had a neurology consultation that they are finishing at this time. Patient be admitted to the ICU. Lab Data Attestation: I reviewed the patient's lab results. Lab results narrative: CBC unremarkable white count of 7. H&H of 13 and 40. Electrolytes sodium 132 gap 12 BUN and creatinine 21 and 2.2. Liver enzymes unremarkable. Troponin less than 3. Alcohol is elevated at 156. Lactic acid elevated 3.4. Chest x- ray shows no acute process. Normal cardiac silhouette mediastinum. Labs: Laboratory Results - last 24 hr 12/12/21 12/12/21 12/12/21 18:21 18:21 18:21 WBC 7.9 RBC 4.88 Hgb 13.3 Hct 40.9 MCV 83.8 MCH 27.3 MCHC 32.5 RDW Std Deviation 47.9 H RDW Coeff of Lawson 15.9 H Plt Count 338 MPV 10.1 Immature Gran % (Auto) 0.400 Neut % (Auto) 52.4 Lymph % (Auto) 33.6 [place] % (Auto) 7.5 Eos % (Auto) 5.2 H Baso % (Auto) 0.9 Absolute Neuts (auto) 4.1 Absolute Lymphs (auto) 2.64 Nucleated RBC % 0 Sodium 132 L Potassium 3.0 L Chloride 95 L Carbon Dioxide 25.0 Anion Gap 12 BUN 21 H Creatinine 2.26 H Estim Creat Clear Calc 39.44 Est GFR (MDRD) Af Amer 39 L Est GFR (MDRD) Non-Af 32 L BUN/Creatinine Ratio 9.3 L Glucose 76 Lactic Acid Calcium 9.4 Total Bilirubin 0.50 AST 16 ALT 18 Alkaline Phosphatase 76 Troponin I High Sens < 3 L Total Protein 8.8 H Albumin 4.0 Globulin 4.8 H Albumin/Globulin Ratio 0.8 L Ethyl Alcohol 156.0 12/12/21 18:21 WBC RBC Hgb Hct MCV MCH MCHC RDW Std Deviation RDW Coeff of Lawson Plt Count MPV Immature Gran % (Auto) Neut % (Auto) Lymph % (Auto) [place] % (Auto) Eos % (Auto) Baso % (Auto) Absolute Neuts (auto) Absolute Lymphs (auto) Nucleated RBC % Sodium Potassium Chloride Carbon Dioxide Anion Gap BUN Creatinine Estim Creat Clear Calc Est GFR (MDRD) Af Amer Est GFR (MDRD) Non-Af BUN/Creatinine Ratio Glucose Lactic Acid 3.4 H* Calcium Total Bilirubin AST ALT Alkaline Phosphatase Troponin I High Sens Total Protein Albumin Globulin Albumin/Globulin Ratio Ethyl Alcohol Radiography Chest X-Ray - ED: 1 View, Read by ED Physician, Read by Radiologist, Heart, Lungs, Mediastinum, Bony Structures, No Acute Disease and Chronic Changes Diagnostic Testing: Clinical Impression(s) from Imaging Studies Chest X-Ray 12/12/21 19:00 IMPRESSION: No acute findings in the chest. 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 Electronically Signed: Power Taveras MD at 22:40 EDT , Chest x-ray, portable, single view interpreted by myself and radiologist shows no acute abnormality. Normal cardiac silhouette. No infiltrates. Rhythm Strip Rhythm Strip: Paced Rate: 86 EKG Initial EKG: Attestation: I personally reviewed and interpreted this EKG as follows: Comments: Paced rhythm rate 86. No acute signs of [place] or ischemia. 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
--- NOTE | 2021-12-12 19:00 | RAD_ITS ---
EXAM: XR CHEST, 1 VIEW CLINICAL INDICATION: hypotension TECHNIQUE: Frontal view of the chest. This report was created using [employer] report generation technology. COMPARISON: 08/27/2021. FINDINGS: LUNGS AND PLEURAL SPACES: Unremarkable. No consolidation or edema. No pneumothorax. No effusion. HEART: Unremarkable. Cardiac silhouette not enlarged. MEDIASTINUM: Central airways and mediastinal contour are unremarkable. BONES/JOINTS: Unremarkable. SOFT TISSUES: Unremarkable. TUBES, LINES AND DEVICES: No change AICD pacemaker. RAD/Chest 1 View (Portable) IMPRESSION: No acute findings in the chest. Electronically Signed: Power Taveras MD at 19:33 EDT ,
[2021-12-12 19:05] LABS: Absolute Lymphocyte Count 2.64 X10^3/uL (0.83-4.51); Absolute Neutrophil Count 4.1 X10^3/uL (2.0-7.7); Basophil# 0.07 X10^3/uL; Basophil% 0.9 % (0-1); Eosinophil# 0.41 X10^3/uL; Eosinophils% 5.2 % (0-5); Hematocrit 40.9 % (40-54); Hemoglobin 13.3 g/dL (13.0-16.5); Lymphocyte # 2.64 X10^3/ul (0.83-4.51); Lymphocyte % 33.6 % (19-41); Mean Corp Hgb Conc 32.5 g/dL (32-36); Mean Corpuscular Hgb 27.3 pg (27.0-32.0); Mean Corpuscular Volume 83.8 fL (80-94); Mean Platelet Vol. 10.1 fl (6.2-12.0); Monocyte# 0.59 X10^3/uL; Monocyte% 7.5 % (0-10); NRBC Flagged by Analyzer 0 % (0-5); Neutrophil # 4.12 X10^3/uL (2.7-7.7); Neutrophil % 52.4 % (47-70); Platelet Count 338 K/mm3 (150-450); RBC Distribution Width CV 15.9 % (11.6-14.6); RBC Distribution Width SD 47.9 fl (35.1-43.9); Red Blood Count 4.88 M/mm3 (4.6-6.2); White Blood Count 7.9 K/mm3 (4.4-11.0)
[2021-12-12 19:26] LABS: ALB/GLOB Ratio 0.8 RATIO (0.9-2.4); AST(SGOT) 16 U/L (15-37); Alanine Aminotransfer ALT/SGPT 18 U/L (16-61); Alkaline Phosphatase 76 U/L (45-117); Anion Gap 12 (5-15); BUN 21 mg/dL (7-18); BUN/Creat Ratio 9.3 RATIO (10-20); Calcium,Total 9.4 mg/dL (8.5-10.1); Chloride 95 mmol/L (98-107); Creatinine, Serum 2.26 mg/dL (0.70-1.30); EST Glomerular Filtration Rate 32 mL/min (>60); Est Glom Filt Rate - Afr Amer 39 mL/min (>60); Estimated Creatinine Clearance 39.44 ml/min; Globulin 4.8 g/dL (2.2-4.2); Glucose 76 mg/dL (74-106); Protein, Total 8.8 g/dL (6.4-8.2); Sodium Level 132 mmol/L (136-145); Troponin-I HS < 3 pg/mL (3.0-78.0)
--- NOTE | 2021-12-12 19:41 | ED.RN ---
pt states that he cant see anything other than bright light. this rn asked when that started [address] sandoval paged to room and spoke with pt, no new orders given at this time.
[2021-12-12 19:51] LABS: Lactic Acid 3.4 mmol/L (0.4-1.9)
--- NOTE | 2021-12-12 22:02 | CT_ITS ---
EXAM: CT HEAD WITHOUT INTRAVENOUS CONTRAST CLINICAL INDICATION: vision loss TECHNIQUE: Multiple axial images were obtained of the head without intravenous contrast. This CT exam was performed using one or more of the following dose reduction techniques: automated exposure control, adjustment of the mA and/or kV according to patient size, and/or use of iterative reconstruction technique. This report was created using [employer] report generation technology. RADIATION DOSE: CTDIvol = 44.99 mGy, DLP = 987.35 mGy-cm. COMPARISON: 11/07/2019. 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 No intra- or extra-axial hemorrhage. No intracranial mass or mass effect. Posterior fossa structures are unremarkable. Ventricles are appropriate for age. No hydrocephalus. Basal cisterns are patent. BONES/JOINTS: Unremarkable. No discrete lytic or blastic abnormalities. SINUSES: Unremarkable as visualized. Clear. MASTOID AIR CELLS: Unremarkable. Clear. ORBITS: Visualized globes, extraocular muscles, optic nerves and retrobulbar fat appear unremarkable. 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 Electronically Signed: Power Taveras MD at 22:40 EDT ,
[2021-12-12 23:02] LABS: Reflex Lactate? Y
--- NOTE | 2021-12-12 23:05 | ED.RN ---
pt states sx with seeing white hue started while he was in [facility] last week.
--- NOTE | 2021-12-12 23:54 | PCM.HP.STD ---
HPI - General General Date of Admission: 12/12/21 Date of Service: 12/12/21 Chief Complaint: Vision changes, intermittent central vision loss/white HPI Narrative The patient is a 56 y/o M w/ PMHx: EtOH abuse, Tobacco use, PAF s/p RFA, Hx CVA x 2, PAD s/p BL LE stents and s/p L BKA secondary to arterial clots, CAD s/p PCI, Carotid disease s/p L CEA, Chronic Systolic CHF/Dilated Cardiomyopathy s/p AICD/pacer, Hx DVT/PE positive lupus/anticardiolipin/anti-B IgM anticoagulant previously on eliquis held from notes likely secondary to severely high fall risk/frequent falls who presents to the [facility] ED on 12/12/21 with history of ~ 1 week ongoing interim and central bilateral eye vision loss which is replaced by bright lights which she cannot see through noting that it comes and goes with increased fatigue and malaise on day of presentation as well as mild dyspnea with no recent significant orthopnea or weight gain in fact patient reports drinking primarily only alcohol with very minimal appropriate water intake. He denies any current chest discomfort or focal weaknesses. He states that this is happened to him previously but he cannot recall exactly what work-up he had at that time. Given it was ongoing prompted ED evaluation. He denies any recent fever, chills, abdominal pain, nausea, emesis, dysuria, cough or URI type symptoms. Work-up in the ED included T97.2, heart rate 85, BP initially 74/54 with several repeat blood pressures with significantly reduced maps however patient was hydrated slowly given underlying cardial myopathy with 2 L and blood pressure improved most recent 98/69, respiratory rate 14, #on room air, CBC with WC 7.9, hemoglobin 13.3, platelets 338 without marked shift, CMP with sodium 132, potassium 3.0, chloride 95, BUN/creatinine 21/2.26, lactic acid 3.4, troponin less than 3, unremarkable hepatic profile otherwise, ethyl alcohol 156, chest x-ray with no acute cardiopulmonary finding, CT of the brain with an old left posterior temporoparietal infarct with no acute intracranial findings, EKG paced. In the ED patient did have telemetry neurology evaluation who recommended EEG, MRV, MRI of the brain. 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 Acute CVA (cerebrovascular accident) Alcohol use Anemia Arthritis Atherosclerosis of coronary artery of [place] heart without angina pectoris CAD (coronary artery disease) Cardiac arrest Cardiology follow-up encounter CHF (congestive heart failure) Chronic osteomyelitis of left tibia Chronic renal failure, stage 2 (mild) CVA (cerebral vascular accident) Debility Defibrillator discharge Depression Dilated cardiomyopathy Elevated liver enzymes Elevated serum GGT level Essential hypertension Gallstones History of DVT (deep vein thrombosis) History of echocardiogram History of ischemic left MCA stroke History of pacemaker History of pulmonary embolism History of stress test History of sudden cardiac arrest successfully resuscitated HLD (hyperlipidemia) Hx of leg amputation Hypercoagulable state Injury of back 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 Methicillin resistant Staphylococcus aureus infection Neuropathy Normochromic normocytic anemia Osteomyelitis of left lower extremity Pain of amputation stump of left lower extremity Paroxysmal atrial fibrillation Peripheral arterial disease Personal history of osteomyelitis Preoperative evaluation to rule out surgical contraindication Shortness of breath on exertion SVT (supraventricular tachycardia) SVT (supraventricular tachycardia) Tobacco abuse Ulceration of below knee amputation stump Uses wheelchair Vascular disease Wears glasses Home Medications aspirin 81 mg chewable tablet 81 mg PO DAILY@0800 heart health 11/07/19 [History Last Taken 09/04/21] nitroglycerin 0.4 mg sublingual tablet 0.4 mg sublingual Q5-15M PRN chest pain 04/08/20 [History Last Taken 08/10/20] atorvastatin 40 mg tablet 40 mg PO DAILY cholesterol #90 tabs 02/17/21 [Rx Last Taken 09/04/21] ticagrelor 90 mg tablet 90 mg PO BID Corrected RX: drug is to be BID #180 tabs 02/17/21 [Rx Last Taken 09/04/21] lisinopril 10 mg tablet 10 mg PO DAILY blood pressure #90 tabs 08/19/21 [Rx Last Taken 09/09/21] docusate sodium 100 mg capsule (Colace) 100 mg PO BID 7 days #14 caps 09/11/21 [Rx Last Taken Unknown] ondansetron 4 mg disintegrating tablet 4 mg PO Q8H PRN nausea and vomiting 5 days #15 tabs 09/11/21 [Rx Last Taken Unknown] oxycodone 5 mg tablet 10 mg PO Q6H PRN PRN Pain Score 6-10 7 days #56 tabs 09/11/21 [Rx Last Taken Unknown] polyethylene glycol 3350 17 gram oral powder packet 17 g PO BID 7 days #14 packets 09/11/21 [Rx Last Taken Unknown] gabapentin 600 mg tablet 600 mg PO TID pain #315 tabs 10/04/21 [Rx Last Taken Unknown] carvedilol 12.5 mg tablet 12.5 mg PO BID blood pressure #180 tabs 10/11/21 [Rx Last Taken Unknown] tamsulosin 0.4 mg capsule 0.4 mg PO DAILY #90 caps 10/11/21 [Rx Last Taken Unknown] furosemide 40 mg tablet 40 mg PO DAILY #90 tabs 12/06/21 [Rx Last Taken Unknown] Allergy/AdvReac Type Severity Reaction Status Date / Time pollen extracts Allergy Intermediate unknown Verified 12/12/21 18:17 Penicillins Allergy Swelling Verified 12/12/21 18:17 adhesive tape AdvReac Rash Verified 12/12/21 18:17 oxycodone [From OxyContin] AdvReac it makes Verified 12/12/21 18:17 me go nuts Family History Mother Diabetes CVA (cerebral vascular accident) Myocardial infarction Father Cancer Prostate Kidney disease Surgical History History of cardiac catheterization History of cardiac radiofrequency ablation (~02/25/13) History of carotid endarterectomy History of cholecystectomy History of coronary artery stent placement History of implantable cardiac defibrillator (ICD) History of left heart catheterization (LHC) (11/29/19) History of surgical removal of testicle Status post below knee amputation of left lower extremity Social History (Updated 12/12/21 @ 22:[address] Stephanie Villalobos MD) household members: spouse Smoking Status: Current some day smoker tobacco type: cigarettes how long ago did patient quit smoking: Quit 03/2019, prior since teen 2 ppd, decreased at end to 1/2 ppd. alcohol intake: current details: Was previously sober, EtOH abuse. substance use type: does not use caffeine: No what type of physical activity do you participate in: walking frequency: daily additional social history: DOES USE ASPIRIN DOES USE IBUPROFEN ROS ROS Narrative Admission Review of Systems: CONSTITUTIONAL: No weight loss, fever, chills, + weakness or fatigue. HEENT: + Bilateral central vision loss with bright area in the central kathleen bilaterally, able see peripherally Eyes: No double vision or yellow sclerae. Ears, Nose, Throat: No hearing loss, sneezing, congestion, runny nose or sore throat. SKIN: No rash or itching, lesions, wounds. CARDIOVASCULAR: No chest pain, chest pressure or chest discomfort, palpitations, edema, orthopnea, syncopal events. RESPIRATORY: No shortness of breath, cough or sputum, wheezing, hemoptysis. GASTROINTESTINAL: + anorexia, No nausea, vomiting or diarrhea, abdominal pain, melena, BRBPR. GENITOURINARY: No dysuria, frequency, urgency or retention. NEUROLOGICAL: No headache, dizziness, syncope, paralysis, ataxia, numbness or tingling in the extremities, focal weakness, change in bowel or bladder control, seizure. MUSCULOSKELETAL + muscle, back pain, joint pain or stiffness. HEMATOLOGIC: + anemia, bleeding or bruising. LYMPHATICS: No enlarged nodes. No history of splenectomy. PSYCHIATRIC: + history of depression or anxiety. ENDOCRINOLOGIC: No reports of sweating, cold or heat intolerance. No polyuria or polydipsia. ALLERGIES: No history of asthma, hives, eczema or rhinitis. Vital Signs Vital Signs Vital Signs: 12/12/21 18:14 12/12/21 18:32 12/12/21 19:02 Temperature 97.2 F L Temperature Source Temporal Pulse Rate 85 Respiratory Rate 14 Respiratory Effort Normal Non-Labored Blood Pressure 74/54 L 62/48 L Blood Pressure Mean 60 52 Pulse Ox 100 Oxygen Delivery Method Room Air 12/12/21 19:29 12/12/21 20:00 12/12/21 20:29 Temperature Temperature Source Pulse Rate 85 Respiratory Rate Respiratory Effort Blood Pressure 61/38 L 71/51 L 61/44 L Blood Pressure Mean 45 57 49 Pulse Ox Oxygen Delivery Method 12/12/21 21:55 12/12/21 22:21 12/12/21 23:00 Temperature Temperature Source Pulse Rate 79 Respiratory Rate 11 L Respiratory Effort Blood Pressure 68/53 L 68/53 L 77/52 L Blood Pressure Mean 58 58 60 Pulse Ox 100 Oxygen Delivery Method Room Air 12/12/21 23:16 12/12/21 23:17 12/12/21 23:24 Temperature 98 F 97.2 F L Temperature Source Temporal Temporal Pulse Rate 83 77 80 Respiratory Rate 17 10 L 12 Respiratory Effort Blood Pressure 90/61 90/61 90/61 Blood Pressure Mean 70 70 70 Pulse Ox 100 100 100 Oxygen Delivery Method Room Air Room Air Room Air Weight Weight: 168 lb 6.931 oz Body Mass Index (BMI) 21.6 Physical Exam Narrative Physical Examination: General: Awake, alert, oriented x 3 and cooperative, seated up in ED bed, significantly more well-appearing than his vitals would expect him to be. Skin: Normal color, normal turgor, no icterus, no cyanosis except venous stasis skin changes. HEENT: AT/NC, EOMI, PERRLA however patient still having central bilateral vision deficits with ability to see on the periphery but not centrally, dry MM, no carotid bruits or JVD noted. Lungs: CTA bilaterally, moderate effort, mild decrease BL bases, no rales, ronchi or wheezing. Heart: Currently regular rate and rhythm; no gallop, rub audible. Abdomen: Soft, NTTP, ND, normal BS, + HM. Extremities: No cyanosis, clubbing, or edema, left lower extremity amputation Neurological: Patient awake, alert, oriented as noted cognitive function appears baseline intact; pupils equally reactive to light and accommodation except patient complaining of bilateral central vision loss and replaced by white appearing light, able to see in the periphery, cranial nerves otherwise grossly normal, moving all extremities, no focal deficits, difficulty with performing any kind of concept of [id number] given visual deficit, [id number] appropriate, negative Babinski Psychiatric: Affect appears fatigued otherwise normal, no acute evidence of depressive or anxiety feelings. Results Lab / Micro Data Result Diagrams: 12/12/21 18:21 12/12/21 18:21 Labs: Laboratory Results - last 24 hr 12/12/21 18:21: WBC 7.9, RBC 4.88, Hgb 13.3, Hct 40.9, MCV 83.8, MCH 27.3, MCHC 32.5, RDW Std Deviation 47.9 H, RDW Coeff of Lawson 15.9 H, Plt Count 338, MPV 10.1, Immature Gran % (Auto) 0.400, Neut % (Auto) 52.4, Lymph % (Auto) 33.6, Garza % (Auto) 7.5, Eos % (Auto) 5.2 H, Baso % (Auto) 0.9, Absolute Neuts (auto) 4.1, Absolute Lymphs (auto) 2.64, Nucleated RBC % 0 12/12/21 18:21: Sodium 132 L, Potassium 3.0 L, Chloride 95 L, Carbon Dioxide 25.0, Anion Gap 12, BUN 21 H, Creatinine 2.26 H, Estim Creat Clear Calc 39.44, Est GFR (MDRD) Af Amer 39 L, Est GFR (MDRD) Non-Af 32 L, BUN/Creatinine Ratio 9.3 L, Glucose 76, Calcium 9.4, Total Bilirubin 0.50, AST 16, ALT 18, Alkaline Phosphatase 76, Troponin I High Sens < 3 L, Total Protein 8.8 H, Albumin 4.0, Globulin 4.8 H, Albumin/Globulin Ratio 0.8 L 12/12/21 18:21: Ethyl Alcohol 156.0 12/12/21 18:21: Lactic Acid 3.4 H* Rhythm Strip Rhythm Strip: Paced Rate: 86 Radiology Impression Chest X-Ray 12/12/21 19:00 IMPRESSION: No acute findings in the chest. 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 Electronically Signed: Power Taveras MD at 22:40 EDT , Assessment & Plan Assessment/Plan (1) Change in vision: PLAN: Plan The patient is a 56 y/o M w/ PMHx: EtOH abuse, Tobacco use, PAF s/p RFA, Hx CVA x 2, PAD s/p BL LE stents and s/p L BKA secondary to arterial clots, CAD s/p PCI, Carotid disease s/p L CEA, Chronic Systolic CHF/Dilated Cardiomyopathy s/p AICD/pacer, Hx DVT/PE positive lupus/anticardiolipin/anti-B IgM anticoagulant previously on eliquis held from notes likely secondary to severely high fall risk/frequent falls who presents to the [facility] ED on 12/12/21 with history of ~ 1 week ongoing interim and central bilateral eye vision loss which is replaced by bright lights which she cannot see through noting that it comes and goes with increased fatigue and malaise on day of presentation as well as mild dyspnea with no recent significant orthopnea or weight gain in fact patient reports drinking primarily only alcohol with very minimal appropriate water intake. #1. Bilateral atypical central vision changes concerning for primarily ocular vessel hypoperfusion given severe hypotension upon presentation, lower suspicion CVA, lower suspicion for seizure: Will admit to PCU, will obtain MRI Brain, MRV of the brain as well as EEG per neurology recommendations, will plan to continue consultation with neurology once these images are obtained, will maintain on aspirin, Brilinta, statin therapy. Holding patient hypertensive medications given severe significant hypotension. TSH, FLP, magnesium, hemoglobin A1c requested. #2. Acute hypotension, suspected secondary to hypovolemia: BP is improving with judicious IV fluid administration, slowly administered boluses secondary to significant underlying cardiomyopathy, will continue to closely monitor and maintain on stepdown although patient's blood pressure has steadily improved. Holding all hypertensive medications. Low suspicion for infection but urinalysis has been requested, chest x-ray unremarkable, procalcitonin will be requested. UDS requested also. #3. Acute kidney injury on CKD stage II: Secondary to hypoperfusion, admission BUN/Cr 21/2.26, prior baseline creatinine noted to be 1.2-1.4. Will hydrate, hold nephrotoxic medications and repeat chemistry in AM. If no improvement would plan FeNa and renal US assessment. #4. Lactic acidosis: Admission lactic acid 3.4, suspect secondary to hypoperfusion, judiciously hydrating given underlying history, trend lactic acid per facility protocol. #5. Hypokalemia: Admission K+ 3.0, magnesium level requested, supplementation given, repeat level in AM. #6. PAD, CAD: s/p difficult bilateral lower extremity stents as well as 07/1119 cardiac arrest with cardiac catheterization at that time with thrombectomy and BRIDGER to the proximal LAD with EF of 35%, will continue home aspirin, Brilinta, statin therapy, holding hypertensive medication #7. Cardiomyopathy, Unclear Type/Systolic CHF: 03/05/2020 echocardiogram with normal LV, no LV hypertrophy, LV systolic function moderately decreased with EF 35%, grade 1 LV diastolic dysfunction, RV normal size, RV systolic function normal, RVSP 32 mmHg. We will continue judicious hydration given acute presentation as noted #1, #2, #3, continue aspirin, Brilinta, statin, holding hypertensive regimen. #8. EtOH Abuse: Patient had previously been sober however ethyl alcohol level is significantly elevated and has been noted elevated previously. From discussions patient primary liquid intake is alcohol. Will maintain on CIWA protocol, MVI, thiamine and folic acid. Once further work-up as noted above is obtained and assure not hypotensive may consider usage of medications for alcohol withdrawal treatment. Magnesium and phosphorus levels requested. Case management consulted for substance abuse. #9. Hypertension: As noted acute hypotensive presentation, holding all hypertensive regimen, add back once appropriate #10. Hyperlipidemia: Continue home statin therapy, FLP in AM. #11. Chronic neuropathy: We will continue patient home gabapentin regimen with hold parameters for sedation. #12. Anxiety and depression: Patient previously was on sertraline regimen, no longer listed, will clarify, would benefit from #13. Hx DVT and PE: Patient w/ positive lupus/anticardiolipin, previously had been on eliquis, no longer taking suspect likely secondary to several falls from review of records #14. Former tobacco use: Quit in 03/2019 with prior to this 2 pack/day although toward the end and cut down to 1/2 pack/day, encouraged continued cessation. #15. Hx frequent sxs PVC/SVT/PAF: s/p ablation/RFA, holding BB. #16. DVT prophylaxis: SCDs, heparin. #16. CODE status: Patient CYNTHIA is his and living will is currently in place. Discussed CODE status at length including difference between FULL code, DNR-CCA and DNR-CC status. Following discussions about the differences in these status, requested Full Code status. Advanced Care Planning Face to Face Time: 16 minutes. Charges/Coding Visit Charges Inpatient E&M: 85485 Init Hosp L3 Procedures Hospitalists Procedures: 09049 Advncd Care Plan 30 Min
[2021-12-13] VITALS (20 sets, daily range): BP systolic 99–132; BP diastolic 64–98; PULSE 79–122; RESP 14–20; TEMP 36.2–36.6; O2SAT 96–100; BMI 21.6
[2021-12-13 00:08] LABS: Mucous, Urine 0 SEEN /hpf (<or=2+); Red Blood Cells-Urine 0 SEEN /hpf (0-5); Squamous Epithelial Cells - UA 0 SEEN /hpf (0-5); White Blood Cells 0 SEEN /hpf (0-5)
[2021-12-13 00:13] LABS: Color, Urine Yellow (Yellow); Glucose, Dipstick Normal (Normal); Ketone-Dipstick Negative (Negative); Leukocyte Esterase-Dipstick Negative /ul (Negative); Nitrite-Dipstick Negative (Negative); Occult Blood-Urine Negative /ul (Negative); Protein-Dipstick Negative (Negative); Urine Bilirubin Dipstick Negative (Negative); Urine Clarity Clear (Clear); Urine Urobilinogen Normal (Normal); Urine pH 6.5 (5.0 - 8.0)
[2021-12-13 00:34] LABS: Lactic Acid 1.7 mmol/L (0.4-1.9)
[2021-12-13 00:58] LABS: Magnesium 2.1 mg/dL (1.6-2.6); Phosphorus 2.7 mg/dL (2.5-4.9)
[2021-12-13 01:06] LABS: Amphetamine Urine VISTA NEGATIVE (<1000 ng/mL); Barbiturate Urine VISTA NEGATIVE (< 200 ng/mL); Benzodiazepine Urine VISTA NEGATIVE (< 200 ng/mL); Cocaine Urine VISTA NEGATIVE (< 300 ng/mL); Ecstacy Urine VISTA NEGATIVE (< 500 ng/mL); Methadone Urine VISTA NEGATIVE (< 300 ng/mL); PCP Urine VISTA NEGATIVE (< 25 ng/mL); THC Urine VISTA NEGATIVE (< 50 ng/mL); Vista UDS pH Range 5
[2021-12-13 01:07] LABS: Procalcitonin 0.05 ng/mL (0.00-0.09)
[2021-12-13 01:17] LABS: Bacteria RARE /hpf (None Seen); Hyaline Cast 0-5 SEEN /lpf (0-5)
[2021-12-13] MEDS: 0.9% Normal Saline 1,000 ML 125 ML IV ×3 (01:27→18:28)
[2021-12-13] MEDS: Potassium Chloride Oral Tablet 20 MEQ 40 MEQ PO (01:28)
[2021-12-13 05:08] LABS: Absolute Lymphocyte Count 2.29 X10^3/uL (0.83-4.51); Absolute Neutrophil Count 3.1 X10^3/uL (2.0-7.7); Basophil# 0.07 X10^3/uL; Basophil% 1.1 % (0-1); Eosinophil# 0.43 X10^3/uL; Eosinophils% 6.8 % (0-5); Hemoglobin 10.8 g/dL (13.0-16.5); Lymphocyte # 2.29 X10^3/ul (0.83-4.51); Lymphocyte % 36.2 % (19-41); Mean Corp Hgb Conc 31.8 g/dL (32-36); Mean Corpuscular Hgb 26.9 pg (27.0-32.0); Mean Corpuscular Volume 84.8 fL (80-94); Monocyte# 0.45 X10^3/uL; Monocyte% 7.1 % (0-10); NRBC Flagged by Analyzer 0 % (0-5); Neutrophil # 3.07 X10^3/uL (2.7-7.7); Neutrophil % 48.6 % (47-70); Platelet Count 246 K/mm3 (150-450); RBC Distribution Width CV 15.9 % (11.6-14.6); Red Blood Count 4.01 M/mm3 (4.6-6.2); White Blood Count 6.3 K/mm3 (4.4-11.0)
[2021-12-13] MEDS: Gabapentin 600 MG Tablet PO ×3 (05:29→21:30)
[2021-12-13 05:41] LABS: ALB/GLOB Ratio 0.8 RATIO (0.9-2.4); AST(SGOT) 15 U/L (15-37); Alanine Aminotransfer ALT/SGPT 15 U/L (16-61); Albumin, Serum 2.9 g/dL (3.2-5.0); Alkaline Phosphatase 59 U/L (45-117); Anion Gap 6 (5-15); BUN 18 mg/dL (7-18); BUN/Creat Ratio 10.2 RATIO (10-20); Calcium,Total 7.7 mg/dL (8.5-10.1); Chloride 104 mmol/L (98-107); Cholesterol 70 mg/dL (200); Creatinine, Serum 1.77 mg/dL (0.70-1.30); EST Glomerular Filtration Rate 43 mL/min (>60); Est Glom Filt Rate - Afr Amer 51 mL/min (>60); Estimated Creatinine Clearance 50.36 ml/min; Globulin 3.7 g/dL (2.2-4.2); Glucose 88 mg/dL (74-106); High Density Lipoprotein 29 mg/dL; Potassium 4.2 mmol/L (3.5-5.1); Protein, Total 6.6 g/dL (6.4-8.2); Sodium Level 135 mmol/L (136-145); Thyroid Stim Hormone (TSH) 0.62 uIU/mL (0.358-3.74); Triglycerides 120 mg/dL; Very Low Density Lipoprotein 24 mg/dL (5-40)
--- NOTE | 2021-12-13 05:55 | MRI_ITS ---
STUDY: MRI BRAIN WITHOUT CONTRAST REASON FOR EXAM: Male, 56 years old. CVA TECHNIQUE: Standardized multiplanar fat and water weighted pulse sequences were obtained. COMPARISON: MRI of the brain dated NOVEMBER 08, 2019. Head CT dated December 12, 2021 FINDINGS: Reidentification of mild encephalomalacia and chronically gliotic postinfarct signal at the left temporal occipital junction. There is no evidence of acute infarction or a new area of signal abnormality. There is mild cerebral atrophy with widening of the extra-axial spaces and ventricular dilatation. Normal remaining white matter tracts of the supratentorial brain. Normal T2* images of the brain without demonstrated susceptibility artifact. There is no demonstrated hemosiderin stain. There is no evidence for recent intracranial ischemia or other cause of cytotoxic edema on diffusion weighted imaging (DWI). Normal bilateral basal ganglia. Normal thalami. There is no extra-axial fluid accumulation. Normal flow voids within the major intracranial circulation suggesting patency by spin echo criteria. Normal sella turcica, pituitary gland, infundibular stalk, optic chiasm and hypothalamus. Normal tectal plate and pineal gland. Normal midbrain, ilene and medulla. Normal cerebellum. Normal basal cisterns. Normal bilateral temporal bones. Normal bilateral internal auditory canals. No demonstrated orbital abnormality, within the constraints of a routine brain study. Normal visualized paranasal sinuses. Normal calvarium and skull base. Normal visualized soft tissue structures. Normal visualized upper cervical spine. MRI/Brain without Contrast IMPRESSION: 1. Reidentification of mild encephalomalacia and chronically gliotic postinfarct signal at the left temporal occipital junction. There is no evidence of acute infarction or a new area of signal abnormality. Electronically Signed: Capo Gutierrez MD at 10:24 EDT ,
--- NOTE | 2021-12-13 05:55 | MRI_ITS ---
STUDY: EXAMINATION - MRV BRAIN WITHOUT CONTRAST REASON FOR EXAM: Male, 56 years old. Vision changes TECHNIQUE: 3D [id number] (TOF) imaging was performed in a yazmin MRI scanner. COMPARISON: MRI of the brain dated December 13, 2021. FINDINGS: Normal flow within the superior sagittal sinus. Normal flow within the superficial cortical veins. Normal flow within the paired internal cerebral veins, vein of Servando and straight sinus. There is preferential flow within the left transverse and sigmoid sinuses, however there is demonstrated flow within the right transverse and sigmoid sinus. Normal flow within the left jugular bulb. The right jugular bulb is not visualized which is likely due to preferential flow within the left system is seen in the remaining left intracranial vessels. Right jugular vein occlusion is not favored. This can be confirmed/evaluated with venous ultrasound evaluation of this region. MRI/MRV Head Without Contrast IMPRESSION: 1. Normal unenhanced MRV of the brain. 2. The right jugular bulb is not visualized which is likely due to preferential flow within the left system is seen in the remaining left intracranial vessels. Right jugular vein occlusion is not favored. This can be confirmed/evaluated with venous ultrasound evaluation of this region. Electronically Signed: Capo Gutierrez MD at 10:29 EDT ,
[2021-12-13 07:23] LABS: Hemoglobin A1c 4.8 % (3.8-5.6)
--- NOTE | 2021-12-13 07:29 | TELEMED_ITS ---
[facility] Tele[facility] has confirmed receipt of a request for visit. This document confirms receipt of the order initiating the consult. To find the results of the consultation, please view the patient's reports for the scanned Telemed Consult.
--- NOTE | 2021-12-13 10:18 | EKG12_ITS ---
Test Reason : DYSRHYTHMIA Blood Pressure : / mmHG Vent. Rate : 086 BPM Atrial Rate : 086 BPM P-R Int : 136 ms QRS Dur : 126 ms QT Int : 434 ms P-R-T Axes : 051 097 091 degrees QTc Int : 519 ms Atrial-sensed ventricular-paced rhythm Abnormal ECG When compared with ECG of 10-AUG-2020 22:02, Vent. rate has increased BY 9 BPM Confirmed by JIN BUSH, MASHA ([id number]), editor sound PAULA PERKINS ([id number]) on 12/22/2021 1:01:28 PM Referred By: MARY LOU Confirmed By:MAHSA ABDI MD
[2021-12-13] MEDS: TICAGRELOR 90 MG TABLET PO ×2 (10:29→21:29)
[2021-12-13] MEDS: Aspirin 81 MG TAB.CHEW PO (10:29)
[2021-12-13] MEDS: Tamsulosin HCl 0.4 MG Capsule PO (10:29)
[2021-12-13] MEDS: Polyethylene Glycol 3350 17 GM PACKET PO ×2 (10:29→21:27)
[2021-12-13] MEDS: Heparin Injection (Vial) 5,000 UNIT/ML VIAL 5000 UNIT SC ×2 (10:29→21:25)
[2021-12-13] MEDS: Multivitamins,Therapeutic Tablet 1 TABLET PO (10:29)
[2021-12-13] MEDS: Folic Acid 1 MG Tablet PO (10:29)
[2021-12-13] MEDS: Thiamine Hydrochloride 100 MG Tablet PO (10:29)
[2021-12-13 10:35] LABS: Magnesium 1.7 mg/dL (1.6-2.6)
[2021-12-13] MEDS: Metoprolol Tartrate 5 MG/5 ML Vial IV (10:49)
[2021-12-13 11:07] LABS: BNP,B-Type NATRIURETIC PEPTIDE 18.8 pg/mL (0-100)
[2021-12-13] MEDS: Carvedilol 12.5 MG Tablet PO ×2 (11:28→21:29)
--- NOTE | 2021-12-13 11:30 | CASEMGMT ---
RN CM Face to Face with patient for initial transition planning/care coordination assessment. RN CM introduced self and role at [facility]. Patient lying in bed, alert and oriented. Patient willing to participate in assessment and is able to answer all questions appropriately. Care providers, pharmacy, and demographics verified. Patient wishes to discharge home, denies need for home health at this time. Patient states he has no further needs or concerns at this time. CM to follow for discharge planning needs that may arise. PCP: Gavin Specialists: David contaminated land consultant Preferred Pharmacy: [facility] Insurance: [employer] Prescription Benefit: yes Living Will/HPOA: none LNOK: Living Arrangements: Patient lives with and daughter in a single story home with ramp to enter the home. Patient states he is independent at home. Transportation: self, , daughter DME/HHC: Patient states he has shower chair, cane, walker, wheelchair, and electric wheelchair. Patient states he has had [facility] in the past. Disposition Plan: Patient to discharge home with family support and follow-up plans in place. Joan PATEL, RN, CM
--- NOTE | 2021-12-13 13:15 | PN.HOSP_ITS ---
Subjective Subjective Follow-up on vision changes/acute kidney injury: Patient was seen and examined. Objective Data Objective Data Vital Signs: Vital Signs Temp Pulse Resp BP Pulse Ox O2 Del Method 97.2 F L 122 H 20 H 127/66 H 100 Room Air 12/13/21 10:22 12/13/21 10:49 12/13/21 10:22 12/13/21 10:49 12/13/21 10:22 12/13/21 11:25 Oxygen Delivery Method Room Air Weight: 76.4 kg Body Mass Index (BMI) 21.6 Intake & Output: Intake and Output for Last 24 Hours 12/11/21 12/12/21 12/13/21 23:59 23:59 23:59 Intake Total 1500 / 1500 2459.17 / 2459.17 Output Total 900 / 900 Balance 1500 / 1500 1559.17 / 1559.17 Lab / Micro Data Result Diagrams: 12/13/21 04:04 12/13/21 04:04 Labs: Laboratory Results - last 24 hr 12/12/21 00:05: Urine Color Yellow, Urine Clarity Clear, Urine pH 6.5, Ur Specific [place] 1.010, Urine Protein Negative, Urine Glucose (UA) Normal, Urine Ketones Negative, Urine Occult Blood Negative, Urine Nitrite Negative, Urine Bilirubin Negative, Urine Urobilinogen Normal, Ur Leukocyte Esterase Negative, Urine RBC 0 SEEN, Urine WBC 0 SEEN, Ur Squamous Epith Cells 0 SEEN, Urine Bacteria RARE, Hyaline Casts 0-5 SEEN, Urine Mucus 0 SEEN 12/12/21 18:21: WBC 7.9, RBC 4.88, Hgb 13.3, Hct 40.9, MCV 83.8, MCH 27.3, MCHC 32.5, RDW Std Deviation 47.9 H, RDW Coeff of Lawson 15.9 H, Plt Count 338, MPV 10.1, Immature Gran % (Auto) 0.400, Neut % (Auto) 52.4, Lymph % (Auto) 33.6, [place] % (Auto) 7.5, Eos % (Auto) 5.2 H, Baso % (Auto) 0.9, Absolute Neuts (auto) 4.1, Absolute Lymphs (auto) 2.64, Nucleated RBC % 0 12/12/21 18:21: Sodium 132 L, Potassium 3.0 L, Chloride 95 L, Carbon Dioxide 25.0, Anion Gap 12, BUN 21 H, Creatinine 2.26 H, Estim Creat Clear Calc 39.44, Est GFR (MDRD) Af Amer 39 L, Est GFR (MDRD) Non-Af 32 L, BUN/Creatinine Ratio 9.3 L, Glucose 76, Calcium 9.4, Total Bilirubin 0.50, AST 16, ALT 18, Alkaline P hosphatase 76, Troponin I High Sens < 3 L, Total Protein 8.8 H, Albumin 4.0, Globulin 4.8 H, Albumin/Globulin Ratio 0.8 L 12/12/21 18:21: Ethyl Alcohol 156.0 12/12/21 18:21: Lactic Acid 3.4 H* 12/12/21 18:21: Phosphorus 2.7, Magnesium 2.1 12/12/21 18:21: Procalcitonin 0.05 12/12/21 23:55: Lactic Acid 1.7 12/13/21 00:05: Urine Opiates Screen NEGATIVE, Urine Methadone Screen NEGATIVE, Ur Barbiturates Screen NEGATIVE, Ur Phencyclidine Scrn NEGATIVE, Ur Amphetamines Screen NEGATIVE, MDMA (Ecstasy) Screen NEGATIVE, U Benzodiazepines Scrn NEGATIVE , Urine Cocaine Screen NEGATIVE, U Cannabinoids Screen NEGATIVE, Ur Drug Screen Comment 12/13/21 00:05: Urine Color Cancelled, Urine Clarity Cancelled, Urine pH Cancelled, Ur Specific [place] Cancelled, U Specif Grav (Refrac) Cancelled, Urine Protein Cancelled, Urine Glucose (UA) Cancelled, Urine Ketones Cancelled, Urine Occult Blood Cancelled, Urine Nitrite Cancelled, Urine Bilirubin Cancelled, Urine Urobilinogen Cancelled, Ur Leukocyte Esterase Cancelled, Urine RBC Cancelled, Urine WBC Cancelled, Ur Squamous Epith Cells Cancelled, Ur Transition Epith Cell Cancelled, Ur Renal Epithelial Cell Cancelled, Calcium Oxalate Crystal Cancelled, Uric Acid Crystals Cancelled, Triple Phos Crystals Cancelled, Other Crystals Cancelled, Amorphous Sediment Cancelled, Urine Bact eria Cancelled, Hyaline Casts Cancelled, Fine Granular Casts Cancelled, Coarse Granular Casts Cancelled, Waxy Casts Cancelled, RBC Casts Cancelled, WBC Casts Cancelled, Urine Mucus Cancelled, Urine Trichomonas Cancelled, Urine Yeast Cancelled 12/13/21 04:04: WBC 6.3, RBC 4.01 L, Hgb 10.8 L, Hct 34.0 L, MCV 84.8, MCH 26.9 L, MCHC 31.8 L, RDW Std Deviation 49.0 H, RDW Coeff of [place] 15.9 H, Plt Count 246, MPV 10.0, Immature Gran % (Auto) 0.200, Neut % (Auto) 48.6, Lymph % (Auto) 36.2, [place] % (Auto) 7.1, Eos % (Auto) 6.8 H, Baso % (Auto) 1.1 H, Absolute Neuts (auto) 3.1, Absolute Lymphs (auto) 2.29, Nucleated RBC % 0 12/13/21 04:04: Sodium 135 L, Potassium 4.2, Chloride 104, Carbon Dioxide 25.0, Anion Gap 6, BUN 18, Creatinine 1.77 H, Estim Creat Clear Calc 50.36, Est GFR (MDRD) Af Amer 51 L, Est GFR (MDRD) Non-Af 43 L, BUN/Creatinine Ratio 10.2, G lucose 88, Calcium 7.7 L, Total Bilirubin 0.40, AST 15, ALT 15 L, Alkaline Phosphatase 59, Total Protein 6.6, Albumin 2.9 L, Globulin 3.7, Albumin/Globulin Ratio 0.8 L, Triglycerides 120, Cholesterol 70, LDL Cholesterol 17, VLDL Cholesterol 24, HDL Cholesterol 29 L, TSH 0.62 12/13/21 04:04: Hemoglobin A1c 4.8 12/13/21 04:04: Magnesium 1.7 12/13/21 04:04: B-Natriuretic Peptide 18.8 Radiography Diagnostic Testing: Radiology Impression Chest X-Ray 12/12/21 19:00 IMPRESSION: No acute findings in the chest. 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 Electronically Signed: Power Taveras MD at 22:40 EDT , Brain MRI 12/13/21 05:55 IMPRESSION: 1. Normal unenhanced MRV of the brain. 2. The right jugular bulb is not visualized which is likely due to preferential flow within the left system is seen in the remaining left intracranial vessels. Right jugular vein occlusion is not favored. This can be confirmed/evaluated with venous ultrasound evaluation of this region. Electronically Signed: Capo Gutierrez MD at 10:29 EDT , Brain MRI 12/13/21 05:55 IMPRESSION: 1. Reidentification of mild encephalomalacia and chronically gliotic postinfarct signal at the left temporal occipital junction. There is no evidence of acute infarction or a new area of signal abnormality. Electronically Signed: Capo Gutierrez MD at 10:24 EDT , Rhythm Strip Rhythm Strip: Paced Rate: 86 Physical Exam Narrative Physical exam: General: Alert, Oriented x3, Cooperative, No apparent distress HEENT: Atraumatic Oral: Moist Mucosa Neck: Supple Lungs: Clear to auscultation Cardiovascular: HS I+II, regular, no murmurs Abdomen: Bowel Sounds Present, Soft, Non Tender Extremities: No edema Skin: No rashes, No breakdown Neurological: Grossly intact Psych/Mental Status: Appropriate Assessment & Plan Assessment/Plan (1) Change in vision: (2) Acute kidney injury: PLAN: Plan 1. Acute vision changes, acute CVA ruled out with negative MRI of the brain Patient with history of CVA x2 Patient will need to follow-up with ophthalmology in the outpatient 2. Acute hypotension, resolved with IV fluids 3. JUAN, prerenal, creatinine is improving, currently 1.77 from 2.26 Continue IV fluids, repeat blood work in a.m. 4. Chronic atrial fibrillation, patient was briefly in RVR, improved with metoprolol IV x1 as well as resumption of his home Coreg. 5.CAD status post PCI/20 systolic CHF/dilated cardiomyopathy status post AICD, remained stable Continue with aspirin, Brilinta, statin, Coreg 6. PAD status post bilateral lower extremity stents, status post left AKA/stenosis status post left carotid endarterectomy, stable Continue with aspirin, Brilinta, statin, Coreg 7. DVT PPx -Heparin SC Charges/Coding Visit Charges Inpatient E&M: 13099 Subs Hosp L2
--- NOTE | 2021-12-13 14:19 | CASEMGMT ---
SW met with patient. Introduced self and role at [facility]. SW asked patient if he would like any resources to help him quit or cut back on his alcohol consumption. Patient declined any resources. Shaunna ERVIN
--- NOTE | 2021-12-13 15:04 | CHAPLAIN ---
Type of Pastoral Visit _x__ Initial Visit ___ Follow-up Visit ___ On-call Visit ___ General Patient Visit ___ Spiritual Assessment ___ Family Conference ___ Bereavement ___ Rapid Response ___ Code Blue ___ Other (describe below) Pastoral Care Referral From _x__ Patient ___ Family ___ Nurse ___ Physician ___ Group Leader ___ Hand Tapper ___ Other (describe below) Sacrament/Intervention _x__ Active listening ___ Anointing ___ Sabianism ___ Bereavement ___ Communion ___ Misty exploration ___ _x__ Life review _x__ Prayer ___ Reconciliation ___ Sacrament of Sick ___ Supportive presence ___ Wedding ___ Other (describe below) Pastoral Comments patient has been seen numerous times in past admissions; pt greets this desk director with so glad to see you and how have you been and I was hoping you would come; pt gives updates on his life, travels, and recent surgery for his leg/amputated limb; pt says he has been spending time in [place] with his parents and coming home to see and children; pt does not disclose any new issues but presents with a positive attitude and optimistic outlook; pt welcomes prayer
[2021-12-13] MEDS: Atorvastatin Calcium 40 MG Tablet PO (21:29)
[2021-12-14] MEDS: 0.9% Normal Saline 1,000 ML 125 ML IV (02:25)
[2021-12-14 02:59] VITALS: PULSE 76
[2021-12-14 03:23] VITALS: BP 102/72; PULSE 80; RESP 18; TEMP 36.7; O2SAT 98
[2021-12-14] MEDS: Gabapentin 600 MG Tablet PO (05:09)
[2021-12-14 05:16] LABS: Absolute Lymphocyte Count 2.05 X10^3/uL (0.83-4.51); Absolute Neutrophil Count 2.7 X10^3/uL (2.0-7.7); Basophil# 0.06 X10^3/uL; Eosinophil# 0.45 X10^3/uL; Eosinophils% 7.9 % (0-5); Hematocrit 31.7 % (40-54); Hemoglobin 10.1 g/dL (13.0-16.5); Lymphocyte # 2.05 X10^3/ul (0.83-4.51); Lymphocyte % 35.8 % (19-41); Mean Corp Hgb Conc 31.9 g/dL (32-36); Mean Corpuscular Hgb 26.9 pg (27.0-32.0); Mean Corpuscular Volume 84.5 fL (80-94); Mean Platelet Vol. 9.9 fl (6.2-12.0); Monocyte# 0.43 X10^3/uL; Monocyte% 7.5 % (0-10); NRBC Flagged by Analyzer 0 % (0-5); Neutrophil # 2.72 X10^3/uL (2.7-7.7); Neutrophil % 47.6 % (47-70); Platelet Count 250 K/mm3 (150-450); RBC Distribution Width CV 15.9 % (11.6-14.6); RBC Distribution Width SD 48.8 fl (35.1-43.9); Red Blood Count 3.75 M/mm3 (4.6-6.2); White Blood Count 5.7 K/mm3 (4.4-11.0)
[2021-12-14 05:59] LABS: ALB/GLOB Ratio 0.8 RATIO (0.9-2.4); AST(SGOT) 16 U/L (15-37); Alanine Aminotransfer ALT/SGPT 15 U/L (16-61); Albumin, Serum 2.7 g/dL (3.2-5.0); Alkaline Phosphatase 58 U/L (45-117); Anion Gap 7 (5-15); BUN 13 mg/dL (7-18); BUN/Creat Ratio 11.3 RATIO (10-20); Calcium,Total 8.3 mg/dL (8.5-10.1); Chloride 109 mmol/L (98-107); Creatinine, Serum 1.15 mg/dL (0.70-1.30); EST Glomerular Filtration Rate 70 mL/min (>60); Est Glom Filt Rate - Afr Amer 85 mL/min (>60); Estimated Creatinine Clearance 77.51 ml/min; Globulin 3.3 g/dL (2.2-4.2); Glucose 99 mg/dL (74-106); Magnesium 2.1 mg/dL (1.6-2.6); Potassium 4.5 mmol/L (3.5-5.1); Sodium Level 137 mmol/L (136-145)
[2021-12-14 07:01] VITALS: PULSE 70
[2021-12-14 07:20] VITALS: O2SAT 98
[2021-12-14 09:20] VITALS: BP 132/85; PULSE 78; RESP 20; TEMP 36.4; O2SAT 99
[2021-12-14] MEDS: Heparin Injection (Vial) 5,000 UNIT/ML VIAL 5000 UNIT SC (10:42)
[2021-12-14] MEDS: TICAGRELOR 90 MG TABLET PO (10:42)
[2021-12-14] MEDS: Carvedilol 12.5 MG Tablet PO (10:43)
[2021-12-14] MEDS: Multivitamins,Therapeutic Tablet 1 TABLET PO (10:43)
[2021-12-14] MEDS: Aspirin 81 MG TAB.CHEW PO (10:43)
[2021-12-14] MEDS: Folic Acid 1 MG Tablet PO (10:43)
--- NOTE | 2021-12-14 10:48 | DCINST_ITS ---
Discharge Instructions Diet Discharge Diet: 2000 mg Sodium Diet Activity Discharge Activity: Return to Normal Activity Follow Up Care Test Results: Test results from this visit will be discussed in further detail at your follow- up appointment, if applicable. Discharge Plan Admission Admit Date/Time: 12/12/21 23:55 Primary Reason for Your Visit: Hypotension Attending Provider: Kira Rivera Primary Care Provider: Dharmesh Alonso Consulting Providers: Stephanie Villalobos Instructions Additional Instructions / Restrictions: Take note of changes to your medications. Be sure to keep a log of your BPs until you see your doctor. Continue to keep yourself hydrated. Follow-up with your primary care doctor within 1 week. You will need repeat blood work within a week to check on your kidney function. Discharge Orders/Prescriptions Prescriptions: Continued atorvastatin 40 mg tablet 40 mg PO DAILY Qty: 90 3RF ticagrelor 90 mg tablet 90 mg PO BID Qty: 180 3RF carvedilol 12.5 mg tablet 12.5 mg PO BID Qty: 180 3RF tamsulosin 0.4 mg capsule 0.4 mg PO DAILY Qty: 90 2RF aspirin 81 MG tablet,chewable 81 mg PO DAILY@0800 oxycodone 5 mg Tablet 10 mg PO Q6H PRN PRN (Reason: Pain Score 6-10) 7 Days Qty: 56 0RF gabapentin 600 mg tablet 600 mg PO TID Qty: 315 0RF Rx Instructions: 600 mg am 600 mg afternoon 900 mg PM Discontinued lisinopril 10 mg tablet 10 mg PO DAILY Qty: 90 1RF furosemide 40 mg tablet 40 mg PO DAILY Qty: 90 3RF Referrals / Follow Up: Dharmesh Alonso MD [Primary Care Provider] - 12/29/21 3:45 pm Disposition Disposition (needs filled in before D/C Order can be placed): Home, Self Care
--- NOTE | 2021-12-14 11:38 | PCM.DC.SUM ---
Providers Date of Admission: 12/12/21 Date of Discharge: 12/14/21 Primary Care Physician: Dr. Dharmesh Alonso MD Reason For Visit: HYPOTENSION, JUAN Diagnosis Discharge Diagnosis (1) Change in vision: Status: Acute Code(s): H53.9 - Unspecified visual disturbance (2) Acute kidney injury: Status: Acute Code(s): N17.9 - Acute kidney failure, unspecified Medications at Discharge Home Medications aspirin 81 mg chewable tablet 81 mg PO DAILY@0800 [facility] 11/07/19 atorvastatin 40 mg tablet 40 mg PO DAILY cholesterol #90 tabs 02/17/21 ticagrelor 90 mg tablet 90 mg PO BID Corrected RX: drug is to be BID #180 tabs 02/17/21 oxycodone 5 mg tablet 10 mg PO Q6H PRN PRN Pain Score 6-10 7 days #56 tabs 09/11/21 gabapentin 600 mg tablet 600 mg PO TID pain #315 tabs 10/04/21 carvedilol 12.5 mg tablet 12.5 mg PO BID blood pressure #180 tabs 10/11/21 tamsulosin 0.4 mg capsule 0.4 mg PO DAILY #90 caps 10/11/21 Hospital Course Operations None Procedures None Summary of Care Provided Minutes Spent on Discharge: 35 Hospital Course: 56y/o male with past medical history of CVA, PAD status post bilateral lower extremity stents, status post left AKA, CAD status post PCI, carotid stenosis status post left carotid endarterectomy who comes in with 1 week history of central bilateral eye vision loss, which comes and goes. In the emergency room, patient was found to be hypotensive with blood pressure 74/54. His BUN was 21, creatinine was 2.26, lactic acid 3.4. Patient was by teleneurology and recommended EEG, MRV, MRI of the brain. Patient was admitted to the progressive care unit, continued on IV fluids. His home blood pressure medications were held. MRI of the brain as well as MRV and EEG were all unremarkable. Patient's creatinine continued to improve. It was 1.15 at discharge down from 2.26 on admission. He was discharged off Lasix and lisinopril. He knows to follow-up with his primary care doctor within a week to have his blood pressure and blood work done. He knows that his Lasix and lisinopril may be resumed when his kidney function and blood pressures are better. Physical Exam Narrative Physical exam: General: Alert, Oriented x3, Cooperative, off oxygen HEENT: Atraumatic Oral: Moist Mucosa Neck: Supple Lungs: Diminished to auscultation Cardiovascular: HS I+II, regular, no murmurs Abdomen: Bowel Sounds Present, Soft, Non Tender Extremities: No edema Skin: No rashes, No breakdown Neurological: Grossly intact Psych/Mental Status: Appropriate Weight / BMI Weight Weight: 80.4 kg Body Mass Index (BMI) 21.6 ABG / Lab / Microbiology Data Result Diagrams: 12/14/21 05:03 12/14/21 05:03 Laboratory: Laboratory Results - last 24 hr 12/14/21 05:03: WBC 5.7, RBC 3.75 L, Hgb 10.1 L, Hct 31.7 L, MCV 84.5, MCH 26.9 L, MCHC 31.9 L, RDW Std Deviation 48.8 H, RDW Coeff of Lawson 15.9 H, Plt Count 250, MPV 9.9, Immature Gran % (Auto) 0.200, Neut % (Auto) 47.6, Lymph % (Auto) 35.8, [place] % (Auto) 7.5, Eos % (Auto) 7.9 H, Baso % (Auto) 1.0, Absolute Neuts (auto) 2.7, Absolute Lymphs (auto) 2.05, Nucleated RBC % 0 12/14/21 05:03: Sodium 137, Potassium 4.5, Chloride 109 H, Carbon Dioxide 21.0, Anion Gap 7, BUN 13, Creatinine 1.15, Estim Creat Clear Calc 77.51, Est GFR (MDRD) Af Amer 85, Est GFR (MDRD) Non-Af 70, BUN/Creatinine Ratio 11.3, Glucose 99, Calcium 8.3 L, Magnesium 2.1, Total Bilirubin 0.40, AST 16, ALT 15 L, Alkaline Phosphatase 58, Total Protein 6.0 L, Albumin 2.7 L, Globulin 3.3, Albumin/Globulin Ratio 0.8 L Microbiology: Microbiology 12/13/21 00:05 Urine Catheter - Catheter Urine Culture - Preliminary Culture exhibits no growth. D/C Instructions Discharge Diet: Low fat / Low cholesterol and 2000 mg Sodium Diet Discharge Activity: Return to Normal Activity Meaningful Use Info Meaningful Use Diagnoses (Choose all that apply): None applicable Discharge Plan Admission Admit Date/Time: 12/12/21 23:55 Primary Reason for Your Visit: Hypotension Attending Provider: Kira Rivera Primary Care Provider: Dharmesh Alonso Consulting Providers: Stephanie Villalobos Instructions Additional Instructions / Restrictions: Take note of changes to your medications. Be sure to keep a log of your BPs until you see your doctor. Continue to keep yourself hydrated. Follow-up with your primary care doctor within 1 week. You will need repeat blood work within a week to check on your kidney function. Discharge Orders/Prescriptions Prescriptions: Continued atorvastatin 40 mg tablet 40 mg PO DAILY Qty: 90 3RF ticagrelor 90 mg tablet 90 mg PO BID Qty: 180 3RF carvedilol 12.5 mg tablet 12.5 mg PO BID Qty: 180 3RF tamsulosin 0.4 mg capsule 0.4 mg PO DAILY Qty: 90 2RF aspirin 81 MG tablet,chewable 81 mg PO DAILY@0800 oxycodone 5 mg Tablet 10 mg PO Q6H PRN PRN (Reason: Pain Score 6-10) 7 Days Qty: 56 0RF gabapentin 600 mg tablet 600 mg PO TID Qty: 315 0RF Rx Instructions: 600 mg am 600 mg afternoon 900 mg PM Discontinued lisinopril 10 mg tablet 10 mg PO DAILY Qty: 90 1RF furosemide 40 mg tablet 40 mg PO DAILY Qty: 90 3RF Referrals / Follow Up: Dharmesh Alonso MD [Primary Care Provider] - 12/29/21 3:45 pm Disposition Disposition (needs filled in before D/C Order can be placed): Home, Self Care Charges/Coding Visit Charges Inpatient E&M: 91218 Disch Hosp
[2021-12-14] MEDS: Thiamine Hydrochloride 100 MG Tablet PO ×2 (12:03)
[2021-12-14] MEDS: Tamsulosin HCl 0.4 MG Capsule PO (12:04)
== END 2021-12-14 13:41 | disposition home or self-care (01) | DRG 683 ==
LOC: ED 22:06 → PCU 23:36
PROVIDERS: Admitting Provider Family Medicine; Emergency Provider Emergency Medicine; PCP Internal Medicine; Visit Provider Internal Medicine
DX: N17.9 Acute kidney failure, unspecified (principal); I42.0 Dilated cardiomyopathy; E87.2 Acidosis; I13.0 Hypertensive heart and chronic kidney disease with heart failure and stage 1 through stage 4 chronic kidney disease, or unspecified chronic kidney disease; I50.22 Chronic systolic (congestive) heart failure; I48.91 Unspecified atrial fibrillation; E86.1 Hypovolemia; E87.6 Hypokalemia; E78.5 Hyperlipidemia, unspecified; I73.9 Peripheral vascular disease, unspecified; H53.9 Unspecified visual disturbance; F10.10 Alcohol abuse, uncomplicated; N18.2 Chronic kidney disease, stage 2 (mild); I25.10 Atherosclerotic heart disease of native coronary artery without angina pectoris; F17.210 Nicotine dependence, cigarettes, uncomplicated; I65.22 Occlusion and stenosis of left carotid artery; F41.9 Anxiety disorder, unspecified; Z79.82 Long term (current) use of aspirin; Z79.02 Long term (current) use of antithrombotics/antiplatelets; Z95.0 Presence of cardiac pacemaker; Z79.01 Long term (current) use of 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s; Z86.73 Personal history of transient ischemic attack (TIA), and cerebral infarction without residual deficits; F32.A Depression, unspecified
CPT/HCPCS: 36415; 70450; 70544; 70551; 71045; 80053; 80061; 80307; 81001; 82077; 83036; 83605; 83735; 83880; 84100; 84145; 84443; 84484; 85025; 87086; 93005; 94762; 95819; 97802; 99251; 99285; 99406; J7030; J7040; A4216; G0463

== ENCOUNTER → 2021-12-29 | Outpatient (CLI) | payer MEDICARE, SELFPAY ==
[2021-02-16 11:25] VITALS: BMI 29.8
[2021-12-29 17:13] LABS: Absolute Lymphocyte Count 2.44 X10^3/uL (0.83-4.51); Absolute Neutrophil Count 3.6 X10^3/uL (2.0-7.7); Basophil# 0.09 X10^3/uL; Basophil% 1.3 % (0-1); Eosinophil# 0.47 X10^3/uL; Eosinophils% 6.7 % (0-5); Hematocrit 36.6 % (40-54); Lymphocyte # 2.44 X10^3/ul (0.83-4.51); Lymphocyte % 34.8 % (19-41); Mean Corp Hgb Conc 32.8 g/dL (32-36); Mean Corpuscular Hgb 27.3 pg (27.0-32.0); Mean Corpuscular Volume 83.2 fL (80-94); Mean Platelet Vol. 9.5 fl (6.2-12.0); Monocyte# 0.39 X10^3/uL; Monocyte% 5.6 % (0-10); NRBC Flagged by Analyzer 0 % (0-5); Neutrophil % 51.3 % (47-70); Platelet Count 401 K/mm3 (150-450); RBC Distribution Width CV 16.7 % (11.6-14.6); RBC Distribution Width SD 50.4 fl (35.1-43.9)
[2021-12-29 17:33] LABS: ALB/GLOB Ratio 0.8 RATIO (0.9-2.4); AST(SGOT) 16 U/L (15-37); Alanine Aminotransfer ALT/SGPT 22 U/L (16-61); Albumin, Serum 3.4 g/dL (3.2-5.0); Alkaline Phosphatase 88 U/L (45-117); Anion Gap 9 (5-15); BUN 7 mg/dL (7-18); Calcium,Total 8.7 mg/dL (8.5-10.1); Chloride 103 mmol/L (98-107); EST Glomerular Filtration Rate 56 mL/min (>60); Est Glom Filt Rate - Afr Amer 67 mL/min (>60); Globulin 4.3 g/dL (2.2-4.2); Glucose 87 mg/dL (74-106); Potassium 3.6 mmol/L (3.5-5.1); Protein, Total 7.7 g/dL (6.4-8.2); Sodium Level 135 mmol/L (136-145)
== END | disposition home or self-care (01) ==
LOC: BIMLAB 16:01
PROVIDERS: PCP Internal Medicine; Visit Provider Internal Medicine
DX: D64.9 Anemia, unspecified (principal)
CPT/HCPCS: 36415; 80053; 85025

== ENCOUNTER → 2022-02-01 | Outpatient (CLI) | payer MEDICARE, SELFPAY ==
[2021-02-16 11:25] VITALS: BMI 29.8
[2022-02-01 10:26] LABS: Erythrocyte Sedimentation Rate 17 mm/hr (0-20)
[2022-02-01 10:48] LABS: AST(SGOT) 10 U/L (15-37); Alanine Aminotransfer ALT/SGPT 14 U/L (16-61); Albumin, Serum 3.5 g/dL (3.2-5.0); Alkaline Phosphatase 90 U/L (45-117); Bilirubin, Direct 0.19 mg/dL (0.00-0.30); CRP < 2.90 mg/L (0.0-3.0); GGTP 63 U/L (15-85); Globulin 4.8 g/dL (2.2-4.2); Protein, Total 8.3 g/dL (6.4-8.2)
[2022-02-01 10:51] LABS: Anion Gap 10 (5-15); BUN 9 mg/dL (7-18); BUN/Creat Ratio 7.6 RATIO (10-20); Calcium,Total 8.9 mg/dL (8.5-10.1); Chloride 100 mmol/L (98-107); Creatinine, Serum 1.18 mg/dL (0.70-1.30); EST Glomerular Filtration Rate 68 mL/min (>60); Est Glom Filt Rate - Afr Amer 82 mL/min (>60); Glucose 97 mg/dL (74-106); Potassium 4.2 mmol/L (3.5-5.1); Sodium Level 135 mmol/L (136-145)
== END | disposition home or self-care (01) ==
LOC: LAB 09:28
PROVIDERS: Nurse Practitioner Adult Health; PCP Internal Medicine; Visit Provider Nurse Practitioner Gerontology
DX: R74.8 Abnormal levels of other serum enzymes (principal); I50.23 Acute on chronic systolic (congestive) heart failure; I10 Essential (primary) hypertension; N18.2 Chronic kidney disease, stage 2 (mild)
CPT/HCPCS: 36415; 80048; 80076; 82977; 85652; 86140

== ENCOUNTER → 2022-09-28 | Outpatient (CLI) | payer MEDICARE, SELFPAY ==
[2021-02-16 11:25] VITALS: BMI 29.8
[2022-09-28 12:33] LABS: Anion Gap 8 (5-15); BUN 13 mg/dL (7-18); BUN/Creat Ratio 9.7 RATIO (10-20); Calcium,Total 9.3 mg/dL (8.5-10.1); Chloride 95 mmol/L (98-107); Creatinine, Serum 1.34 mg/dL (0.70-1.30); EST Glomerular Filtration Rate 58 mL/min (>60); Est Glom Filt Rate - Afr Amer 71 mL/min (>60); Glucose 102 mg/dL (74-106); Sodium Level 132 mmol/L (136-145)
== END | disposition home or self-care (01) ==
PROVIDERS: PCP Internal Medicine; Referring Provider Internal Medicine Cardiovascular Disease; Visit Provider Internal Medicine Cardiovascular Disease
DX: I25.10 Atherosclerotic heart disease of native coronary artery without angina pectoris (principal)
CPT/HCPCS: 36415; 80048

== ENCOUNTER 2022-11-11 17:31 | Emergency (ER) | payer MEDICARE, SELFPAY ==
[2021-02-16 11:25] VITALS: BMI 29.8
[2022-11-11 17:33] VITALS: BP 113/76; PULSE 105; RESP 18; TEMP 36.3; O2SAT 99
--- NOTE | 2022-11-11 17:56 | EKG12_ITS ---
Test Reason : GI BLEED Blood Pressure : / mmHG Vent. Rate : 088 BPM Atrial Rate : 088 BPM P-R Int : 132 ms QRS Dur : 124 ms QT Int : 422 ms P-R-T Axes : 054 -16 099 degrees QTc Int : 510 ms Atrial-sensed ventricular-paced rhythm Abnormal ECG Confirmed by NGUYEN BUSH, NICHOL ([id number]), publications editor PAULA PERKINS ([id number]) on 11/14/2022 10:53:31 A M Referred By: Confirmed By:SWETHA CEDILLO MD
--- NOTE | 2022-11-11 17:56 | ED.VIS.GI ---
HPI HPI - GI History of Present Illness Chief Complaint: GI Bleed Narrative Narrative: 57-year-old male past medical history of left AKA secondary to peripheral vascular disease, atrial fibrillation/flutter on Eliquis presents with 7 days of dark stool, malaise and fatigue. He denies any nausea or vomiting, no hematemesis, no chest pain or shortness of breath. He states his stool has been black in color with almost every bowel movement. He denies any abdominal pain or other symptoms. 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 Acute CVA (cerebrovascular accident) Alcohol use Anemia Anemia Arthritis Atherosclerosis of coronary artery of [place] heart without angina pectoris Atrial fibrillation Atrial flutter BPH (benign prostatic hyperplasia) CAD (coronary artery disease) Cardiac arrest Cardiology follow-up encounter CHF (congestive heart failure) Chronic osteomyelitis of left tibia Chronic pain Chronic renal failure, stage 2 (mild) CVA (cerebral vascular accident) Debility Defibrillator discharge Depression Dilated cardiomyopathy Elevated liver enzymes Elevated serum GGT level Essential hypertension Gallstones History of DVT (deep vein thrombosis) History of echocardiogram History of ischemic left MCA stroke History of pacemaker History of pulmonary embolism History of stress test History of sudden cardiac arrest successfully resuscitated HLD (hyperlipidemia) Hx of leg amputation Hypercoagulable state Injury of back Irregular heart beat Ischemic ulcer of right foot terminal carman current use of anticoagulant Methicillin resistant Staphylococcus aureus infection Myocardial infarct Neuropathy Normochromic normocytic anemia Osteomyelitis of left lower extremity Pacemaker Pain of amputation stump of left lower extremity Paroxysmal atrial fibrillation Peripheral arterial disease Personal history of osteomyelitis Preoperative evaluation to rule out surgical contraindication Shortness of breath on exertion Sleep apnea Smoker SVT (supraventricular tachycardia) SVT (supraventricular tachycardia) Tobacco abuse Ulceration of below knee amputation stump Uses wheelchair Vascular disease Wears glasses Home Medications aspirin 81 mg chewable tablet 81 mg PO DAILY@0800 heart health 11/07/19 [History Last Taken 09/04/21] carvedilol 12.5 mg tablet 12.5 mg PO BID blood pressure #180 tabs 12/30/21 [Rx Last Taken Unknown] losartan 25 mg tablet 25 mg PO DAILY #30 tabs 06/30/22 [Rx Last Taken Unknown] rivaroxaban 20 mg tablet (Xarelto) 20 mg PO DAILY #30 TABLETS 08/16/22 [Rx Last Taken Unknown] furosemide 40 mg tablet See Rx Instructions .Route .COMPLEX #90 tabs 09/28/22 [Rx Last Taken Unknown] tamsulosin 0.4 mg capsule 0.4 mg PO DAILY #90 caps 09/28/22 [Rx Last Taken Unknown] gabapentin 600 mg tablet 600 mg PO BID pain 11/11/22 [History Last Taken Unknown] gabapentin 600 mg tablet 900 mg PO QHS 11/11/22 [History Last Taken Unknown] Allergy/AdvReac Type Severity Reaction Status Date / Time pollen extracts Allergy Intermediate unknown Verified 11/11/22 17:33 Penicillins Allergy Swelling Verified 11/11/22 17:33 adhesive tape AdvReac Rash Verified 11/11/22 17:33 oxycodone [From OxyContin] AdvReac it makes Verified 11/11/22 17:33 me go nuts Family History Mother Diabetes CVA (cerebral vascular accident) Myocardial infarction Father Cancer Prostate Kidney disease Surgical History History of appendectomy History of cardiac catheterization History of cardiac radiofrequency ablation (~02/25/13) History of carotid endarterectomy History of cholecystectomy History of coronary artery stent placement History of implantable cardiac defibrillator (ICD) History of left heart catheterization (LHC) (11/29/19) History of surgical removal of testicle Status post below knee amputation of left lower extremity Social History household members: spouse Smoking Status: Current some day smoker tobacco type: cigarettes alcohol intake: current details: Was previously sober, EtOH abuse. substance use type: does not use caffeine: No what type of physical activity do you participate in: walking frequency: daily additional social history: DOES USE ASPIRIN DOES USE IBUPROFEN ROS ROS ED ROS Narrative Constitutional: No fever, no chills. Malaise and fatigue. HEENT: No sore throat. No neck pain. No loss of vision. No rhinorrhea. Cardiovascular: No chest pain. No palpitations. No pedal edema. Respiratory: No cough, no shortness of breath. Abdominal: No abdominal pain. No nausea. No vomiting. No hematemesis. Black stool x7 days Genitourinary: No dysuria. No hematuria. Musculoskeletal: No myalgias. No arthralgias. Neurologic: No headaches. No dizziness. No lightheadedness. Skin: No rash. No change in color. Psychiatric: No depression. No anxiety. EXAM Physical Exam Narrative Exam Narrative: Afebrile. Vital signs noted. HEENT: Normocephalic. Atraumatic. PERRL, EOMI. Neck soft and supple. No point tenderness or step off. Cardiovascular: Regular rate and rhythm. No murmurs, rubs, or gallops appreciated. Respiratory: No tachypnea. Lungs clear to auscultation bilaterally. Gastrointestinal: Abdomen soft, nontender, with normoactive bowel sounds. No rebound or guarding. Neurological: Awake. Alert. Nonfocal, nonlateralizing. Skin: No rash. Normal color. No pallor. Musculoskeletal: No pedal edema. Full range of motion extremities. Left AKA noted. Const Vital Signs: 11/11/22 17:33 11/11/22 20:00 Temperature 97.4 F L Temperature Source Temporal Pulse Rate 105 H 95 Respiratory Rate 18 16 Blood Pressure 113/76 116/81 H Blood Pressure Mean 88 92 Pulse Ox 99 99 Oxygen Delivery Method Room Air Room Air MDM MDM MDM Narrative Medical decision making narrative: Suspicion is high for upper GI bleed. I will obtain a CMP to look for elevated BUN. Additionally, he does have a history of taking Eliquis. I do not feel CT of the abdomen pelvis is currently indicated. I will remain a specimen for fecal occult blood. I will feel orthostatics are indicated as the patient is unable to stand fully given his left AKA. He usually uses a wheelchair. I reviewed his laboratory work, he has a normal white count of 8.3, hemoglobin normal at 13.2, hematocrit 41.5, platelet count 295. He has a low sodium of 133, but a chronic hyponatremia. Creatinine 1.27 with a BUN slightly elevated at 19 consistent with upper GI bleed. Glucose is 80. With suspicion of upper GI bleed as I performed chaperoned rectal examination which showed dark to black stool and was Hemoccult positive, NG tube was inserted. There is now return of dark red with intermittent bright red blood, return to dark red. KUB interpreted by myself shows the tip of the nasogastric tube to be in the fundus of the stomach. I reviewed the radiology report which states that the tube should be advanced by few centimeters. RN was told to advance the nasogastric tube. EKG was obtained and interpreted by myself as atrial sensed ventricular paced complexes at [address] changes. Given his upper GI bleeding, he was given an IV push of Protonix 40 mg intravenously. Given his acute upper GI bleeding, I discussed the patient with Dr. Jeffries with [facility] critical care medicine. There is no gastroenterology physician on-call currently. He would like that the patient have 2 large-bore IDs for critical care transport. Additionally, while the patient states that he takes Eliquis, was found that he actually takes Xarelto. His last dose was this morning, he states he takes it at 630, then again in the evening. This will be held. I feel that he requires transfer to critical care medicine as he has active GI bleeding, upper. Disposition is transferred in guarded condition. History & Record Review Discussion w/independent historian: Patient and Family Additional record(s) reviewed:: Prior ED visit Lab Data Attestation: I reviewed the patient's lab results. Labs: Laboratory Results - last 24 hr 11/11/22 11/11/22 18:05 18:05 WBC 8.3 RBC 4.53 L Hgb 13.2 Hct 41.5 MCV 91.6 MCH 29.1 MCHC 31.8 L RDW Std Deviation 66.1 H RDW Coeff of Lawson 19.9 H Plt Count 295 MPV 9.3 Immature Gran % (Auto) 0.200 Neut % (Auto) 44.1 L Lymph % (Auto) 42.1 H [place] % (Auto) 7.9 Eos % (Auto) 4.5 Baso % (Auto) 1.2 H Absolute Neuts (auto) 3.7 Absolute Lymphs (auto) 3.50 Nucleated RBC % 0 Platelet Estimate ADEQUATE Anisocytosis RARE Macrocytosis RARE Sodium 133 L Potassium 3.5 Chloride 99 Carbon Dioxide 27.0 Anion Gap 7 BUN 19 H Creatinine 1.27 Estim Creat Clear Calc 76.70 Est GFR (MDRD) Af Amer 75 Est GFR (MDRD) Non-Af 62 BUN/Creatinine Ratio 15.0 Glucose 80 Calcium 8.6 Total Bilirubin 0.40 AST 17 ALT 24 Alkaline Phosphatase 77 Total Protein 8.4 H Albumin 3.4 Globulin 5.0 H Albumin/Globulin Ratio 0.7 L Radiography Diagnostic Testing: Clinical Impression(s) from Imaging Studies KUB X-Ray 11/11/22 19:45 IMPRESSION: undefined Critical Care Time Critical Care Time: Yes Critical care time (excluding procedures): 30-74 minutes (31), Including time spent:, Discussing w/Patient &/or Family/[employer] Installer, Arranging Admission or Transfer and Performing Direct Patient Care at Bedside Discharge Plan Triage Chief Complaint: GI Bleed ED Provider: Karl Desai Dx/Rx/DC Orders Clinical Impression: Acute upper GI hemorrhage, Chronic anticoagulation, Black stool Prescriptions: No Action tamsulosin 0.4 mg capsule 0.4 mg PO DAILY Qty: 90 3RF aspirin 81 MG tablet,chewable 81 mg PO DAILY@0800 gabapentin 600 mg tablet 900 mg PO QHS Label Comments: TAKE 1 TAB BY MOUTH IN THE MORNING, 1 TAB IN AFTERNOON, AND 1&1/2 TAB IN THE EVENING FOR PAIN gabapentin 600 mg tablet 600 mg PO BID Rx Instructions: 600 mg am 600 mg afternoon 900 mg PM carvedilol 12.5 mg tablet 12.5 mg PO BID Qty: 180 3RF losartan 25 mg tablet 25 mg PO DAILY Qty: 30 11RF Xarelto 20 mg tablet 20 mg PO DAILY Qty: 30 11RF furosemide 40 mg tablet See Rx Instructions .ROUTE .COMPLEX Qty: 90 3RF Dose Instruction: TAKE 1 TABLET BY MOUTH EVERY DAY Rx Instructions: TAKE 1 TABLET BY MOUTH EVERY DAY Primary Care Provider: Dharmesh Alonso Referrals: Dharmesh Alonso MD [Primary Care Provider] - Disposition Disposition: Acute Care Hospital Discharge Location: [facility]
[2022-11-11 18:03] VITALS: BMI 23.8
[2022-11-11] MEDS: 0.9% Normal Saline 1,000 ML 1000 ML IV (18:04)
[2022-11-11 18:22] LABS: Absolute Neutrophil Count 3.7 X10^3/uL (2.0-7.7); Basophil% 1.2 % (0-1); Eosinophil# 0.37 X10^3/uL; Eosinophils% 4.5 % (0-5); Hematocrit 41.5 % (40-54); Hemoglobin 13.2 g/dL (13.0-16.5); Lymphocyte % 42.1 % (19-41); Mean Corp Hgb Conc 31.8 g/dL (32-36); Mean Corpuscular Hgb 29.1 pg (27.0-32.0); Mean Corpuscular Volume 91.6 fL (80-94); Mean Platelet Vol. 9.3 fl (6.2-12.0); Monocyte# 0.66 X10^3/uL; Monocyte% 7.9 % (0-10); NRBC Flagged by Analyzer 0 % (0-5); Neutrophil # 3.66 X10^3/uL (2.7-7.7); Neutrophil % 44.1 % (47-70); POSITIVE MORPHOLOGY YES; Platelet Count 295 K/mm3 (150-450); RBC Distribution Width CV 19.9 % (11.6-14.6); RBC Distribution Width SD 66.1 fl (35.1-43.9); Red Blood Count 4.53 M/mm3 (4.6-6.2); White Blood Count 8.3 K/mm3 (4.4-11.0)
[2022-11-11 18:40] LABS: ALB/GLOB Ratio 0.7 RATIO (0.9-2.4); AST(SGOT) 17 U/L (15-37); Alanine Aminotransfer ALT/SGPT 24 U/L (16-61); Albumin, Serum 3.4 g/dL (3.2-5.0); Alkaline Phosphatase 77 U/L (45-117); Anion Gap 7 (5-15); BUN 19 mg/dL (7-18); Calcium,Total 8.6 mg/dL (8.5-10.1); Chloride 99 mmol/L (98-107); Creatinine, Serum 1.27 mg/dL (0.70-1.30); EST Glomerular Filtration Rate 62 mL/min (>60); Est Glom Filt Rate - Afr Amer 75 mL/min (>60); Glucose 80 mg/dL (74-106); Potassium 3.5 mmol/L (3.5-5.1); Protein, Total 8.4 g/dL (6.4-8.2); Sodium Level 133 mmol/L (136-145)
[2022-11-11 18:49] LABS: Differential Indicated SCAN CRITERIA MET
[2022-11-11 18:51] LABS: Anisocytosis RARE; Macrocytosis RARE; Platelet Estimate ADEQUATE (ADEQ)
[2022-11-11] MEDS: Oxymetazoline 0.05% 1 SPRAY SPRAY.BTL 2 SPRAY NASAL (19:31)
--- NOTE | 2022-11-11 19:45 | RAD_ITS ---
STUDY: X-RAY - ABDOMEN/PELVIS REASON FOR EXAM: Male, 57 years old. ng tube placement -- KUB with both diaphragms for NG/OG Verification TECHNIQUE: COMPARISON: None. FINDINGS: Normal visualized lung bases. Nasogastric tube terminates in the fundus of the stomach. The sidehole is at the esophagogastric junction and the nasogastric tube should be advanced several centimeters. There is an unremarkable bowel gas pattern. There is no demonstrated free abdominal air. Electronically Signed: Jame Mesa MD at 20:08 EDT , RAD/Abdomen Single View (Portable) IMPRESSION: undefined
[2022-11-11] MEDS: Ondansetron 4 MG/2 ML Vial IV ×2 (19:53→22:07)
[2022-11-11 20:00] VITALS: BP 116/81; PULSE 95; RESP 16; O2SAT 99
[2022-11-11] MEDS: Morphine 4 MG/ML Syringe IV (20:33)
[2022-11-11 22:00] VITALS: BP 117/67; PULSE 97; RESP 16; O2SAT 99
[2022-11-11 22:11] VITALS: BP 117/69; PULSE 97; RESP 16; O2SAT 99
== END 2022-11-11 22:12 | disposition short-term general hospital (02) ==
PROVIDERS: Emergency Provider Emergency Medicine; PCP Internal Medicine; Visit Provider Emergency Medicine
DX: K92.2 Gastrointestinal hemorrhage, unspecified (principal); I50.9 Heart failure, unspecified; I13.0 Hypertensive heart and chronic kidney disease with heart failure and stage 1 through stage 4 chronic kidney disease, or unspecified chronic kidney disease; I48.0 Paroxysmal atrial fibrillation; Z79.01 Long term (current) use of 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s; N18.2 Chronic kidney disease, stage 2 (mild); F17.210 Nicotine dependence, cigarettes, uncomplicated; I25.10 Atherosclerotic heart disease of native coronary artery without angina pectoris; E78.5 Hyperlipidemia, unspecified; I25.2 Old myocardial infarction; Z95.0 Presence of cardiac pacemaker; Z79.82 Long term (current) use of aspirin; Z79.899 Other long term (current) drug therapy; N40.0 Benign prostatic hyperplasia without lower urinary tract symptoms; Z90.49 Acquired absence of other specified parts of digestive tract; Z95.5 Presence of coronary angioplasty implant and graft; R19.5 Other fecal abnormalities
CPT/HCPCS: 74018; 80053; 82274; 85025; 93005; 96361; 96365; 96375; 96376; 99285; J7030; J7050; A4216; J2405

== ENCOUNTER → 2023-06-19 | Outpatient (CLI) | payer MEDICARE, SELFPAY ==
[2021-02-16 11:25] VITALS: BMI 29.8
[2023-06-19 12:14] LABS: Absolute Lymphocyte Count 1.92 X10^3/uL (0.83-4.51); Absolute Neutrophil Count 4.7 X10^3/uL (2.0-7.7); Basophil# 0.14 X10^3/uL; Basophil% 1.8 % (0-1); Eosinophil# 0.37 X10^3/uL; Eosinophils% 4.8 % (0-5); Hematocrit 43.5 % (40-54); Hemoglobin 12.9 g/dL (13.0-16.5); Lymphocyte # 1.92 X10^3/ul (0.83-4.51); Lymphocyte % 25.1 % (19-41); Mean Corp Hgb Conc 29.7 g/dL (32-36); Mean Corpuscular Hgb 23.6 pg (27.0-32.0); Mean Corpuscular Volume 79.7 fL (80-94); Mean Platelet Vol. 10.5 fl (6.2-12.0); Monocyte# 0.51 X10^3/uL; Monocyte% 6.7 % (0-10); NRBC Flagged by Analyzer 0 % (0-5); Neutrophil # 4.69 X10^3/uL (2.7-7.7); Neutrophil % 61.3 % (47-70); Platelet Count 191 K/mm3 (150-450); RBC Distribution Width CV 19.9 % (11.6-14.6); RBC Distribution Width SD 54.6 fl (35.1-43.9); Red Blood Count 5.46 M/mm3 (4.6-6.2); White Blood Count 7.7 K/mm3 (4.4-11.0)
[2023-06-19 13:14] LABS: ALB/GLOB Ratio 0.8 RATIO (0.9-2.4); AST(SGOT) 26 U/L (15-37); Alanine Aminotransfer ALT/SGPT 24 U/L (16-61); Albumin, Serum 3.8 g/dL (3.2-5.0); Alkaline Phosphatase 90 U/L (45-117); Anion Gap 7 (5-15); BUN 7 mg/dL (7-18); BUN/Creat Ratio 5.1 RATIO (10-20); Calcium,Total 8.9 mg/dL (8.5-10.1); Chloride 103 mmol/L (98-107); Cholesterol 103 mg/dL (200); Creatinine, Serum 1.36 mg/dL (0.70-1.30); EST Glomerular Filtration Rate 57 mL/min (>60); Est Glom Filt Rate - Afr Amer 69 mL/min (>60); Globulin 4.9 g/dL (2.2-4.2); Glucose 109 mg/dL (74-106); High Density Lipoprotein 30 mg/dL; PSA,Total - Annual Screen 3.22 ng/mL (0.00-4.00); Potassium 4.5 mmol/L (3.5-5.1); Protein, Total 8.7 g/dL (6.4-8.2); Sodium Level 134 mmol/L (136-145); Triglycerides 118 mg/dL; Very Low Density Lipoprotein 24 mg/dL (5-40)
== END | disposition home or self-care (01) ==
LOC: BIMLAB 08:46
PROVIDERS: PCP Internal Medicine; Referring Provider Internal Medicine; Visit Provider Internal Medicine
DX: Z86.79 Personal history of other diseases of the circulatory system (principal); I50.22 Chronic systolic (congestive) heart failure; I25.10 Atherosclerotic heart disease of native coronary artery without angina pectoris; E78.5 Hyperlipidemia, unspecified; N40.0 Benign prostatic hyperplasia without lower urinary tract symptoms; Z12.5 Encounter for screening for malignant neoplasm of prostate
CPT/HCPCS: 36415; 80053; 80061; 84153; 85025; G0103

== ENCOUNTER 2023-06-23 13:02 | Outpatient (RCR) | payer MEDICARE, SELFPAY ==
[2021-02-16 11:25] VITALS: BMI 29.8
[2023-06-23 15:27] LABS: International Normalized Ratio 1.7; Prothrombin Time (Protime)PT. 19.7 SECONDS (11.7-14.9)
== END 2023-06-28 23:59 ==
LOC: BIMLAB 13:02
PROVIDERS: PCP Internal Medicine; Visit Provider Internal Medicine
DX: I48.92 Unspecified atrial flutter (principal); I48.0 Paroxysmal atrial fibrillation
CPT/HCPCS: 36415; 85610

== ENCOUNTER 2023-07-14 10:50 | Outpatient (RCR) | payer MEDICARE, SELFPAY ==
[2021-02-16 11:25] VITALS: BMI 29.8
[2023-06-30 13:04] LABS: Prothrombin Time (Protime)PT. 39.9 SECONDS (11.7-14.9)
[2023-07-07 15:35] LABS: Prothrombin Time (Protime)PT. 72.1 SECONDS (11.7-14.9)
[2023-07-07 15:59] LABS: International Normalized Ratio 8.5
[2023-07-10 11:32] LABS: Prothrombin Time (Protime)PT. 52.4 SECONDS (11.7-14.9)
[2023-07-10 11:38] LABS: International Normalized Ratio 5.7
[2023-07-13 10:35] LABS: Prothrombin Time (Protime)PT. 43.1 SECONDS (11.7-14.9)
[2023-07-13 11:01] LABS: International Normalized Ratio 4.4
--- NOTE | 2023-07-14 11:26 | RAD_ITS ---
STUDY: X-RAY - CERVICAL SPINE REASON FOR EXAM: Male, 57 years old. Cervical radiculopathy TECHNIQUE: 4 view(s) of the cervical spine were obtained. COMPARISON: None FINDINGS: Normal anterior atlantoaxial articulation. Normal odontoid process. Normal cervical lordosis. No evidence for acute fracture or subluxation. No lytic or sclerotic bony lesions.. Disc spaces are maintained however there is multilevel endplate spurring The soft tissue structures are unremarkable. RAD/Cerv Spine 2 or 3 Views IMPRESSION: Mild spondylosis. No acute fracture or other significant bony pathology Electronically Signed: Bashir Toth MD at 16:53 EST ,
--- NOTE | 2023-07-14 11:26 | RAD_ITS ---
EXAM: XR LUMBOSACRAL SPINE, 4 OR 5 VIEWS CLINICAL INDICATION: Lumbar radiculopathy TECHNIQUE: Frontal, lateral and bilateral oblique views of the lumbar spine. COMPARISON: No relevant prior studies available. FINDINGS: Moderate compression fractures involving the T12 and L1 vertebral bodies. No underlying pathology or retropulsion. These appear chronic. No pars defects. Bone island at the anterior aspect of the L2 vertebral body. Prior cholecystectomy. Vascular stents seen along the expected region of the right common iliac and potentially Iliac vessels. Normal bowel gas pattern. RAD/L/S Spine Min 4 Views IMPRESSION: 1. No findings on this examination to explain radiculopathy; therefore recommend MRI of the lumbar spine for further investigation. 2. Chronic compression fractures of the T12 and L1 vertebral bodies. Electronically Signed: Orion Bearden MD at 19:57 EST ,
[2023-07-14 12:41] LABS: Absolute Lymphocyte Count 2.27 X10^3/uL (0.83-4.51); Absolute Neutrophil Count 4.4 X10^3/uL (2.0-7.7); Basophil# 0.14 X10^3/uL; Basophil% 1.8 % (0-1); Eosinophils% 5.1 % (0-5); Erythrocyte Sedimentation Rate 14 mm/hr (0-20); Hematocrit 37.7 % (40-54); Hemoglobin 11.6 g/dL (13.0-16.5); Lymphocyte # 2.27 X10^3/ul (0.83-4.51); Lymphocyte % 29.1 % (19-41); Mean Corp Hgb Conc 30.8 g/dL (32-36); Mean Corpuscular Hgb 24.3 pg (27.0-32.0); Mean Corpuscular Volume 78.9 fL (80-94); Mean Platelet Vol. 9.9 fl (6.2-12.0); Monocyte# 0.55 X10^3/uL; Monocyte% 7.1 % (0-10); NRBC Flagged by Analyzer 0 % (0-5); Neutrophil # 4.41 X10^3/uL (2.7-7.7); Neutrophil % 56.5 % (47-70); POSITIVE MORPHOLOGY YES; Platelet Count 386 K/mm3 (150-450); RBC Distribution Width CV 20.7 % (11.6-14.6); RBC Distribution Width SD 54.4 fl (35.1-43.9); Red Blood Count 4.78 M/mm3 (4.6-6.2); White Blood Count 7.8 K/mm3 (4.4-11.0)
[2023-07-14 12:45] LABS: Differential Indicated SCAN CRITERIA MET
[2023-07-14 12:57] LABS: ALB/GLOB Ratio 0.8 RATIO (0.9-2.4); AST(SGOT) 24 U/L (15-37); Alanine Aminotransfer ALT/SGPT 29 U/L (16-61); Albumin, Serum 3.6 g/dL (3.2-5.0); Alkaline Phosphatase 80 U/L (45-117); Anion Gap 4 (5-15); BUN 9 mg/dL (7-18); BUN/Creat Ratio 6.4 RATIO (10-20); CRP < 2.90 mg/L (0.0-3.0); Calcium,Total 8.9 mg/dL (8.5-10.1); Chloride 98 mmol/L (98-107); EST Glomerular Filtration Rate 55 mL/min (>60); Est Glom Filt Rate - Afr Amer 67 mL/min (>60); Globulin 4.8 g/dL (2.2-4.2); Glucose 102 mg/dL (74-106); Potassium 4.1 mmol/L (3.5-5.1); Protein, Total 8.4 g/dL (6.4-8.2); Rheumatoid Factor < 10.0 IU/mL (<15); Sodium Level 134 mmol/L (136-145)
[2023-07-14 12:59] LABS: International Normalized Ratio 2.9; Prothrombin Time (Protime)PT. 30.4 SECONDS (11.7-14.9)
[2023-07-14 13:08] LABS: Anisocytosis 1+; Differential Comment SCANNED
== END 2023-07-27 23:59 ==
LOC: BIMLAB 10:50
PROVIDERS: PCP Internal Medicine; Referring Provider Internal Medicine; Visit Provider Internal Medicine
DX: I10 Essential (primary) hypertension (principal); I48.92 Unspecified atrial flutter; M54.16 Radiculopathy, lumbar region; M54.12 Radiculopathy, cervical region
CPT/HCPCS: 36415; 72040; 72110; 80053; 85025; 85610; 85652; 86140; 86431

== ENCOUNTER 2023-11-27 16:34 | Inpatient (IN) | payer MEDICARE, SELFPAY ==
[2023-07-13 17:54] VITALS: BMI 29.8
[2023-11-27] VITALS (9 sets, daily range): BP systolic 151–176; BP diastolic 89–103; PULSE 105–127; RESP 9–22; TEMP 36.2–36.4; O2SAT 95–100; BMI 24.4; BMI 24.7
--- NOTE | 2023-11-27 16:56 | EKG12_ITS ---
Test Reason : SOB Blood Pressure : / mmHG Vent. Rate : 115 BPM Atrial Rate : 115 BPM P-R Int : 144 ms QRS Dur : 124 ms QT Int : 384 ms P-R-T Axes : 049 109 064 degrees QTc Int : 531 ms Atrial-sensed ventricular-paced rhythm Abnormal ECG Confirmed by Power Alvares ([id number]), editor trade journal PAULA PERKINS ([id number]) on 12/01/2023 9:10:10 AM Referred By: BARBARA Confirmed By:Power Alvares
--- NOTE | 2023-11-27 17:24 | RAD_ITS ---
STUDY: X-RAY CHEST REASON FOR EXAM: Male, 58 years old. chest pain TECHNIQUE: Single AP portable view of the chest. COMPARISON: None. FINDINGS: The lungs are clear and expanded. There is no demonstrated pleural abnormality. Normal size heart. Pacemaker is seen with leads terminating in the coronary sinus, right atrium and right ventricle. Normal mediastinum and edgar. Normal visualized pulmonary arteries. Normal visualized aortic arch and descending thoracic aorta. Normal visualized thoracic spine. Normal visualized ribs, clavicles, and shoulders. There is no demonstrated abnormality of the visualized soft tissue structures of the upper abdomen. RAD/Chest 1 View (Portable) IMPRESSION: No definite acute or significant abnormality seen. Electronically Signed: Jame Mesa MD at 17:41 EDT ,
[2023-11-27 17:32] LABS: Absolute Lymphocyte Count 1.74 X10^3/uL (0.83-4.51); Absolute Neutrophil Count 5.4 X10^3/uL (2.0-7.7); Basophil# 0.09 X10^3/uL; Basophil% 1.1 % (0-1); Eosinophil# 0.14 X10^3/uL; Eosinophils% 1.8 % (0-5); Hematocrit 35.9 % (40-54); Hemoglobin 11.6 g/dL (13.0-16.5); Lymphocyte # 1.74 X10^3/ul (0.83-4.51); Lymphocyte % 22.1 % (19-41); Mean Corp Hgb Conc 32.3 g/dL (32-36); Mean Corpuscular Hgb 26.5 pg (27.0-32.0); Mean Corpuscular Volume 82.2 fL (80-94); Mean Platelet Vol. 10.2 fl (6.2-12.0); Monocyte# 0.51 X10^3/uL; Monocyte% 6.5 % (0-10); NRBC Flagged by Analyzer 0 % (0-5); Neutrophil # 5.35 X10^3/uL (2.7-7.7); POSITIVE MORPHOLOGY YES; Platelet Count 167 K/mm3 (150-450); RBC Distribution Width CV 24.3 % (11.6-14.6); RBC Distribution Width SD 70.3 fl (35.1-43.9); Red Blood Count 4.37 M/mm3 (4.6-6.2); White Blood Count 7.9 K/mm3 (4.4-11.0)
[2023-11-27 17:33] LABS: Differential Indicated SCAN CRITERIA MET
[2023-11-27 17:45] LABS: D-Dimer Quantitative (DVT/PE) 3.08 FEU/ug/m (0.27-0.49)
[2023-11-27 17:52] LABS: Anion Gap 8 (5-15); BUN 8 mg/dL (7-18); BUN/Creat Ratio 4.3 RATIO (10-20); Calcium,Total 8.3 mg/dL (8.5-10.1); Chloride 97 mmol/L (98-107); Creatinine, Serum 1.85 mg/dL (0.70-1.30); EST Glomerular Filtration Rate 40 mL/min (>60); Est Glom Filt Rate - Afr Amer 49 mL/min (>60); Glucose 139 mg/dL (74-106); Potassium 3.3 mmol/L (3.5-5.1); Sodium Level 130 mmol/L (136-145); Troponin-I HS (w/2H Reflex) 41 pg/mL (3.0-78.0)
--- NOTE | 2023-11-27 18:14 | CT_ITS ---
STUDY: CTA CHEST REASON FOR EXAM: Male, 58 years old. SOB RADIATION DOSAGE (If Supplied By Facility): CTDIvol = ( 12.70 ) mGy, DLP = ( 511.94 ) mGycm TECHNIQUE: The examination was performed with the intravenous administration of IV 100mL [id number]-[id number]. Post-processing of the angiographic images was performed, with multiplanar reformation and 3D reconstruction. Individualized dose optimization techniques were used for this CT. COMPARISON: None. FINDINGS: Normal enhancement of the main pulmonary artery and right and left pulmonary arteries. There is a single tiny 5 mm filling defect in a segmental pulmonary artery branches to the left lateral basal segment. This can be seen on axial image 130. No other pulmonary emboli are suggested. Normal thoracic aorta and visualized great vessels. There is no demonstrated aortic dissection. Normal heart and pericardium. There are calcifications of the coronary arteries. Normal mediastinum. Normal hilar regions. Normal visualized trachea and bronchi. The lungs are hyper expanded, with flattening of the hemidiaphragms. Normal pulmonary parenchyma. Normal pleura. Normal chest wall structures. Partial compression fractures are seen of T12 and L1 of indeterminate age. Probable old midsternal fracture. Otherwise negative Osseous structures. In the upper abdomen, there is marked atrophy of the left kidney. There is prominent asymmetric intraluminal thrombus in the visualized upper aorta. CT/CTA Chest W/WO Contrast IMPRESSION: Single 5 mm pulmonary embolism to a segmental branch of the left descending pulmonary artery. There are findings consistent with COPD. There is no evidence of acute chest disease. N.B. : The above Results were Read Back by Jame Mesa MD to Ken Medel DO, and understanding confirmed on 11/27/2023 19:08:39 (ET). Electronically Signed: Jame Mesa MD at 19:12 EDT ,
--- NOTE | 2023-11-27 18:15 | EDS_ITS ---
HPI History of Present Illness Chief Complaint: Edema Narrative Narrative: 58-year-old male presenting with upper extremity swelling and abdominal swelling as well as shortness of breath. Patient uses a wheelchair as he is previous had a above-knee amputation. He relates a history of heart failure and supposed to be on a water pill but states he has not been able to take his medications for 2 months since he does not have any money. Patient states that he has health insurance but does not cover enough and he cannot afford medication. Denies fever, chills. He does state he has a cough. 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 Wears glasses Alcohol use Uses wheelchair Injury of back Shortness of breath on exertion History of echocardiogram History of stress test History of pacemaker Cardiology follow-up encounter Elevated serum GGT level Elevated liver enzymes Tobacco abuse CAD (coronary artery disease) CVA (cerebral vascular accident) Preoperative evaluation to rule out surgical contraindication Neuropathy Defibrillator discharge SVT (supraventricular tachycardia) Paroxysmal atrial fibrillation Acute CVA (cerebrovascular accident) HLD (hyperlipidemia) Atherosclerosis of coronary artery of [place] heart without angina pectoris History of sudden cardiac arrest successfully resuscitated CHF (congestive heart failure) Cardiac arrest Chronic renal failure, stage 2 (mild) Normochromic normocytic anemia Debility History of ischemic left MCA stroke Depression Dilated cardiomyopathy Essential hypertension Methicillin resistant Staphylococcus aureus infection Personal history of osteomyelitis History of pulmonary embolism History of DVT (deep vein thrombosis) half-way current use of anticoagulant Chronic osteomyelitis of left tibia Ulceration of below knee amputation stump Vascular disease Gallstones Arthritis Anemia Pain of amputation stump of left lower extremity Osteomyelitis of left lower extremity Ischemic ulcer of right foot Peripheral arterial disease SVT (supraventricular tachycardia) Hypercoagulable state Home Medications ?Medication ?Instructions ?Recorded ?Last Taken ?Type aspirin 81 mg chewable tablet 81 mg PO DAILY@0800 [facility] 11/07/19 09/04/21 History atorvastatin 40 mg tablet 40 mg PO DAILY #90 tabs 06/19/23 Unknown Rx carvedilol 12.5 mg tablet 12.5 mg PO BID blood pressure #180 06/19/23 Unknown Rx tabs gabapentin 600 mg tablet 900 mg (1.5 x 600 mg) PO QHS 3 06/19/23 Unknown Rx months #135 tabs losartan 25 mg tablet 25 mg PO DAILY #90 tabs 06/19/23 Unknown Rx tamsulosin 0.4 mg capsule 0.4 mg PO DAILY #90 caps 06/19/23 Unknown Rx furosemide 40 mg tablet 40 mg PO BID #90 tabs 11/27/23 Unknown Rx Allergy/AdvReac Type Severity Reaction Status Date / Time pollen extracts Allergy Intermediate unknown Verified 11/27/23 16:35 Penicillins Allergy Swelling Verified 11/27/23 16:35 adhesive tape AdvReac Rash Verified 11/27/23 16:35 oxycodone (From OxyContin) AdvReac it makes Verified 11/27/23 16:35 me go nuts Family History Mother Diabetes CVA (cerebral vascular accident) Myocardial infarction Father Cancer Prostate Kidney disease Surgical History History of appendectomy History of cardiac catheterization History of implantable cardiac defibrillator (ICD) Hx of leg amputation History of coronary artery stent placement History of carotid endarterectomy History of cardiac radiofrequency ablation (~02/25/13) History of left heart catheterization (LHC) (11/29/19) Status post below knee amputation of left lower extremity History of surgical removal of testicle History of cholecystectomy Social History household members: spouse Smoking Status: Current every day smoker tobacco type: cigarettes alcohol intake: current details: Was previously sober, EtOH abuse. substance use type: does not use caffeine: No what type of physical activity do you participate in: walking frequency: daily additional social history: DOES USE ASPIRIN DOES USE IBUPROFEN ROS ROS ED Constitutional Constitutional ED: Denies chills, fever(s) or sweats Eyes Eyes: Denies blurry vision or change in vision ENT ENT ED: Denies ear pain or sore throat Cardiovascular Cardiovascular: Denies chest pain, palpitations or racing heartbeat Respiratory/Chest Respiratory/Chest: Reports dyspnea and dyspnea on exertion; Denies cough or sputum Gastrointestinal Gastrointestinal: Denies abdominal pain, constipation, diarrhea, nausea or vomiting Genitourinary Genitourinary ED: Denies dysuria, hematuria or urinary frequency Musculoskeletal Musculoskeletal: Denies arthralgias, myalgias or neck pain Integumentary Denies abscess, Abrasions or rash Neurologic Neurologic: Denies headache(s), paresthesias or weakness Psychiatric Psychiatric: Denies anxiety, depression, suicidal ideation or suicidal thoughts Endocrine Endocrinology: Denies polydipsia or polyuria EXAM Physical Exam Const Vital Signs: 11/27/23 16:35 11/27/23 17:00 11/27/23 17:20 Temperature 97.1 F L Temperature Source Temporal Pulse Rate 127 H 120 H Respiratory Rate 22 H 20 H Respiratory Effort Respiratory Pattern Blood Pressure 154/103 H 157/96 H Blood Pressure Mean 120 116 Pulse Ox 100 99 Oxygen Delivery Method Room Air Room Air Room Air 11/27/23 17:20 11/27/23 18:00 11/27/23 19:00 Temperature Temperature Source Pulse Rate 109 H 112 H Respiratory Rate 9 L 20 H Respiratory Effort Normal Non-Labored Respiratory Pattern Normal Blood Pressure 160/89 H 176/92 H Blood Pressure Mean 108 120 Pulse Ox 98 95 Oxygen Delivery Method Room Air 11/27/23 20:00 11/27/23 21:00 11/27/23 22:00 Temperature 97.6 F L Temperature Source Pulse Rate 107 H 105 H 110 H Respiratory Rate 13 16 19 H Respiratory Effort Respiratory Pattern Blood Pressure 151/94 H 158/96 H 167/95 H Blood Pressure Mean 113 116 119 Pulse Ox 99 99 99 Oxygen Delivery Method Room Air Room Air 11/27/23 22:00 Temperature Temperature Source Pulse Rate 110 H Respiratory Rate 19 H Respiratory Effort Respiratory Pattern Blood Pressure 167/95 H Blood Pressure Mean 119 Pulse Ox 99 Oxygen Delivery Method Room Air Positive well nourished General Appearance ED: NAD HEENT Reports moist mucous membranes Eyes PERRL and EOMs intact bilaterally Chest Wall inspection of chest normal Resp normal respiratory effort and clear to auscultation bilaterally Auscultation: Negative for rales or rhonchi Cardio regular rate Rate: tachycardic Extremity normal to inspection General Extremety ED: Yes edema General Extremity: edema Neuro oriented x3 and CN's II-XII intact bilaterally Sensorium / Orientation: alert Motor Exam: strength 5/5 throughout Psych mental status grossly normal Skin no rashes or lesions noted MDM MDM MDM Narrative Medical decision making narrative: Patient presenting with shortness of breath and concern for CHF as he has some upper extremity edema. He has no edema of the right lower extremity. He does not state that he feels like he is bloated. He denies abdominal pain. Patient is wheelchair-bound and he states he has not been taking his medications for last couple months. Differential includes but is not limited to ACS, PE, pneumonia, CHF, pneumothorax, muscle strain, costochondritis. CBC will be obtained to assess white blood cell count, hemoglobin, platelets. BMP to assess renal function, electrolytes, glucose. High-sensitivity troponin and EKG to assess for ischemia/dysrhythmia. BNP to assess for CHF. Chest x-ray to rule out pneumonia or CHF. D-dimer to assess for PE. CBC shows white blood cell count 7.9. Hemoglobin 11.6. Platelets are normal at 167. Creatinine is elevated today at 1.85. Previously this was 1.4. BNP slightly elevated 191.6 however chest x-ray on my interpretation shows no acute cardiopulmonary process. Radiologist interprets this and agrees. High-sensitivity troponin is 41 and delta troponin is 40. Since his D-dimer is elevated at 3.08 today I did obtain a CT scan of the chest with and without contrast and this shows a single PE 5 mm embolism to the segmental branch of the left descending pulmonary artery. Patient was given Eliquis 10 mg p.o. Given his JUAN I did feel he should be observed and given IV fluids. Discussed with hospitalist for admission Impression: 1. Dyspnea 2. PE Lab Data Attestation: I reviewed the patient's lab results. Labs: Laboratory Results - last 24 hr 11/27/23 11/27/23 17:15 19:37 WBC 7.9 RBC 4.37 L Hgb 11.6 L Hct 35.9 L MCV 82.2 MCH 26.5 L MCHC 32.3 RDW Std Deviation 70.3 H RDW Coeff of [place] 24.3 H Plt Count 167 MPV 10.2 Immature Gran % (Auto) 0.500 Neut % (Auto) 68.0 Lymph % (Auto) 22.1 [place] % (Auto) 6.5 Eos % (Auto) 1.8 Baso % (Auto) 1.1 H Absolute Neuts (auto) 5.4 Absolute Lymphs (auto) 1.74 Nucleated RBC % 0 Differential Comment D-Dimer Quant (PE/DVT) 3.08 H* Sodium 130 L Potassium 3.3 L Chloride 97 L Carbon Dioxide 25.0 Anion Gap 8 BUN 8 Creatinine 1.85 H Est GFR (MDRD) Af Amer 49 L Est GFR (MDRD) Non-Af 40 L BUN/Creatinine Ratio 4.3 L Glucose 139 H Calcium 8.3 L Troponin I High Sens 41 40 B-Natriuretic Peptide 191.6 H Radiography Diagnostic Testing: Clinical Impression(s) from Imaging Studies Chest X-Ray 11/27/23 17:24 IMPRESSION: No definite acute or significant abnormality seen. Electronically Signed: Jame Mesa MD at 17:41 EDT Reading Location ID and State: [facility] / [place] , Service support , Chest CTA 11/27/23 18:14 IMPRESSION: Single 5 mm pulmonary embolism to a segmental branch of the left descending pulmonary artery. There are findings consistent with COPD. There is no evidence of acute chest disease. N.B. : The above Results were Read Back by Jame Mesa MD to Ken Medel DO, and understanding confirmed on 11/27/2023 19:08:39 (ET). Electronically Signed: Jame Mesa MD at 19:12 EDT Reading Location ID and State: [facility] / [place] , Service support , ADDENDUM: 11/27/231918 IMPRESSION: Single 5 mm pulmonary embolism to a segmental branch of the left descending pulmonary artery. There are findings consistent with COPD. There is no evidence of acute chest disease. N.B. : The above Results were Read Back by Jame Mesa MD to Ken Medel DO, and understanding confirmed on 11/27/2023 19:08:39 (ET). Electronically Signed: Jame Mesa MD at 19:12 EDT , Discharge Plan Disposition Disposition: Acute Care Hospital [facility] Discharge Date/Time: 11/27/23 22:32
[2023-11-27 19:27] LABS: Reflex Troponin-HS? (from REC) Y
[2023-11-27 20:40] LABS: Troponin-I HS 40 pg/mL (3.0-78.0)
--- NOTE | 2023-11-27 21:13 | PCM.HP.STD ---
[facility] - General General Date of Admission: 11/27/23 Date of Service: 11/27/23 Chief Complaint: Severe Upper Extremity Edema and SOB. HPI Narrative JANIE CHIN, is a 58 M with a past medical history of essential hypertension, hyperlipidemia, history of tobacco abuse, history of hypercoagulable state; +Lupus anticoagulant, +Cardiolipin Anti-b IgM and increased Homocysteine level with patient supposed to be on chronic Coumadin, PAF; with patient not taking his medications for months, CAD; s/p stent (2019), history of Left MCA CVA x 2 (~2019), PVD; with history of multiple stents in both legs and history of Left AKA, history of Chronic Osteomyelitis of Left stump, history of MRSA, history of dilated cardiomyopathy; with LVEF ~27% (2018), history of CHF, history of SVT, history of LBBB, history of cardiac arrest; with successful resuscitation with subsequent PPM/AICD, JOSE, CKD; stage II, chronic anemia, history of cholecystectomy, history of elevated LFT's attributed to cholestatic liver disease, BPH, history of lumbar radiculopathy and OA; with chronic back pain and polyarthropathy who presents to [facility] ER complaining of LE edema and SOB. Mr. Chin reports his symptoms began approximately 2 months prior to admission with bilateral upper extremity swelling right greater than left with additional swelling in his abdomen and progressively worsening shortness of breath for which patient thought he was developing heart failure. He was seen by his custom motorcycle painter and started on a diuretic without improvement. He goes on to state that he has not been able to take his medications for the past 2 months due to lack of money to pay. He further elaborated that he has been on Coumadin in the past and his levels have fluctuated wildly causing him to be switched to Eliquis which then had to be stopped due to his lack of finances. He states that he does have health insurance but not enough to cover medications -but he strongly wishes to be placed back on Eliquis and to be maintained on this medication if possible. He denies associated fever, chills, nausea or vomiting but he does admit to cough and dyspnea on exertion but he does admit to relatively poor memory since his previous strokes that is also adversely impacting his ability to take his medications as prescribed. In the ER he was noted to have a highly elevated D-dimer of 3.08 present on admission followed by a CTA of the chest positive for a single ~5 mm pulmonary embolism in a segmental branch of the the Left descending pulmonary artery along with incidentally noted findings of COPD and no acute findings of CHF with suspicion for DVT in upper extremities (Right>Left) in the setting of medical non-compliance with a known multifactorial hypercoagulable state complicated by laboratory evidence of hypokalemia of 3.3 mmol/L, mild hyponatremia of 130 mmol/L and suspected JUAN with elevated serum creatinine of 1.85 mg/dL (up from his baseline of approximately 1.4 g/dL last admission) present on admission and he was then admitted to the PCU for ongoing care for stay that is expected to extend beyond 2 midnights. [facility] Medical History Hypertension Back pain Polyarthropathy Dark stools Lumbar radiculopathy Cervical radiculopathy BPH (benign prostatic hyperplasia) Anemia Atrial flutter Chronic pain Smoker Sleep apnea Atrial fibrillation Irregular heart beat Pacemaker Myocardial infarct 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 Wears glasses Alcohol use Uses wheelchair Injury of back Shortness of breath on exertion History of echocardiogram History of stress test History of pacemaker Cardiology follow-up encounter Elevated serum GGT level Elevated liver enzymes Tobacco abuse CAD (coronary artery disease) CVA (cerebral vascular accident) Preoperative evaluation to rule out surgical contraindication Neuropathy Defibrillator discharge SVT (supraventricular tachycardia) Paroxysmal atrial fibrillation Acute CVA (cerebrovascular accident) HLD (hyperlipidemia) Atherosclerosis of coronary artery of [place] heart without angina pectoris History of sudden cardiac arrest successfully resuscitated CHF (congestive heart failure) Cardiac arrest Chronic renal failure, stage 2 (mild) Normochromic normocytic anemia Debility History of ischemic left MCA stroke Depression Dilated cardiomyopathy Essential hypertension Methicillin resistant Staphylococcus aureus infection Personal history of osteomyelitis History of pulmonary embolism History of DVT (deep vein thrombosis) retirement current use of anticoagulant Chronic osteomyelitis of left tibia Ulceration of below knee amputation stump Vascular disease Gallstones Arthritis Anemia Pain of amputation stump of left lower extremity Osteomyelitis of left lower extremity Ischemic ulcer of right foot Peripheral arterial disease SVT (supraventricular tachycardia) Hypercoagulable state Home Medications ?Medication ?Instructions ?Recorded ?Last Taken ?Type aspirin 81 mg chewable tablet 81 mg PO DAILY@0800 [facility] 11/07/19 09/04/21 History atorvastatin 40 mg tablet 40 mg PO DAILY #90 tabs 06/19/23 Unknown Rx carvedilol 12.5 mg tablet 12.5 mg PO BID blood pressure #180 06/19/23 Unknown Rx tabs gabapentin 600 mg tablet 900 mg (1.5 x 600 mg) PO QHS 3 06/19/23 Unknown Rx months #135 tabs losartan 25 mg tablet 25 mg PO DAILY #90 tabs 06/19/23 Unknown Rx tamsulosin 0.4 mg capsule 0.4 mg PO DAILY #90 caps 06/19/23 Unknown Rx furosemide 40 mg tablet 40 mg PO BID #90 tabs 11/27/23 Unknown Rx Allergy/AdvReac Type Severity Reaction Status Date / Time pollen extracts Allergy Intermediate unknown Verified 11/27/23 16:35 Penicillins Allergy Swelling Verified 11/27/23 16:35 adhesive tape AdvReac Rash Verified 11/27/23 16:35 oxycodone (From OxyContin) AdvReac it makes Verified 11/27/23 16:35 me go nuts Family History Mother Diabetes CVA (cerebral vascular accident) Myocardial infarction Father Cancer Prostate Kidney disease Surgical History History of appendectomy History of cardiac catheterization History of implantable cardiac defibrillator (ICD) Hx of leg amputation History of coronary artery stent placement History of carotid endarterectomy History of cardiac radiofrequency ablation (~02/25/13) History of left heart catheterization (LHC) (11/29/19) Status post below knee amputation of left lower extremity History of surgical removal of testicle History of cholecystectomy Social History household members: spouse Smoking Status: Current every day smoker tobacco type: cigarettes alcohol intake: current details: Was previously sober, EtOH abuse. substance use type: does not use caffeine: No what type of physical activity do you participate in: walking frequency: daily additional social history: DOES USE ASPIRIN DOES USE IBUPROFEN ROS ROS Narrative Review of systems: General: Patient denies fevers or chills. HENT: Denies headache, denies stuffy nose, denies sore throat EYES: Denies changes in vision or discharge from eyes. Resp: Patient admits to dyspnea on exertion but denies cough or sputum. Cardiac: Denies chest pain, palpitations or heart racing. GI: Denies abdominal pain, denies changes in bowel, denies nausea or vomiting. : Denies changes in urination Extremity: Patient admits to significant swelling of his Right upper extremity greater than Left upper extremity. History of left AKA. Musculoskeletal: Feels somewhat generally weak and unwell but he denies arthralgias or myalgias. Neuro: Patient denies headache, paresthesias or focal neurologic deficits. Heme: Denies any bleeding or bruising Skin: Denies rashes Psychiatric: No complaints voiced related to uncontrolled depression or anxiety. Endocrine: No polyuria, polydipsia or polyphagia. The rest of the 14 point ROS was negative except for positives in HPI. Vital Signs Vital Signs Vital Signs: 11/27/23 16:35 11/27/23 17:00 11/27/23 17:20 Temperature 97.1 F L Temperature Source Temporal Pulse Rate 127 H 120 H Respiratory Rate 22 H 20 H Respiratory Effort Respiratory Pattern Blood Pressure 154/103 H 157/96 H Blood Pressure Mean 120 116 Pulse Ox 100 99 Oxygen Delivery Method Room Air Room Air Room Air 11/27/23 17:20 11/27/23 18:00 11/27/23 19:00 Temperature Temperature Source Pulse Rate 109 H 112 H Respiratory Rate 9 L 20 H Respiratory Effort Normal Non-Labored Respiratory Pattern Normal Blood Pressure 160/89 H 176/92 H Blood Pressure Mean 108 120 Pulse Ox 98 95 Oxygen Delivery Method Room Air 11/27/23 20:00 11/27/23 21:00 Temperature Temperature Source Pulse Rate 107 H 105 H Respiratory Rate 13 16 Respiratory Effort Respiratory Pattern Blood Pressure 151/94 H 158/96 H Blood Pressure Mean 113 116 Pulse Ox 99 99 Oxygen Delivery Method Room Air Room Air Weight Weight: 195 lb 8.8 oz Body Mass Index (BMI) 24.4 Physical Exam Const alert, oriented x3 and no apparent distress General Appearance: cooperative HEENT normocephalic, head/scalp atraumatic, hearing grossly normal bilaterally and moist oral mucous membranes Eyes PERRL and EOMs intact bilaterally Neck no lymphadenopathy and supple Resp normal respiratory effort, no retractions, no use of accessory muscles and clear to auscultation bilaterally Cardio regular rate and regular rhythm GI normal to inspection, nondistended, normoactive bowel sounds, soft to palpation, non-tender and non-distended Extremity Extremity Narrative: Patient has severe nonpitting edema of the Right >> Left upper extremity. Left AKA noted. Skin Skin Narrative: Patient has no evidence of jaundice or rash. Neuro oriented x3, CN's II-XII intact bilaterally, moves all extremities and no focal motor deficits Sensorium / Orientation: awake, alert, oriented to person, oriented to place and oriented to time Speech: speech normal Psych affect normal Results Medical Records Data Attestation: I reviewed the patient's medical records Lab / Micro Data Attestation: I reviewed the patient's lab results. 11/27/23 17:15 11/27/23 17:15 Labs: Laboratory Results - last 24 hr 11/27/23 17:15: WBC 7.9, RBC 4.37 L, Hgb 11.6 L, Hct 35.9 L, MCV 82.2, MCH 26.5 L, MCHC 32.3, RDW Std Deviation 70.3 H, RDW Coeff of Lawson 24.3 H, Plt Count 167, MPV 10.2, Immature Gran % (Auto) 0.500, Neut % (Auto) 68.0, Lymph % (Auto) 22.1, Chase % (Auto) 6.5, Eos % (Auto) 1.8, Baso % (Auto) 1.1 H, Absolute Neuts (auto) 5.4, Absolute Lymphs (auto) 1.74, Nucleated RBC % 0, Differential Comment , D-Dimer Quant (PE/DVT) 3.08 H*, Sodium 130 L, Potassium 3.3 L, Chloride 97 L, Carbon Dioxide 25.0, Anion Gap 8, BUN 8, Creatinine 1.85 H, Est GFR (MDRD) Af Amer 49 L, Est GFR (MDRD) Non-Af 40 L, BUN/Creatinine Ratio 4.3 L, Glucose 139 H, Calcium 8.3 L, Troponin I High Sens 41 11/27/23 19:37: Troponin I High Sens 40 Imaging Radiology Impression Chest X-Ray 11/27/23 17:24 IMPRESSION: No definite acute or significant abnormality seen. Electronically Signed: Jame Mesa MD at 17:41 EDT , Chest CTA 11/27/23 18:14 IMPRESSION: Single 5 mm pulmonary embolism to a segmental branch of the left descending pulmonary artery. There are findings consistent with COPD. There is no evidence of acute chest disease. N.B. : The above Results were Read Back by Jame Mesa MD to Ken Medel DO, and understanding confirmed on 11/27/2023 19:08:39 (ET). Electronically Signed: Jame Mesa MD at 19:12 EDT , ADDENDUM: 11/27/23 1919 IMPRESSION: Single 5 mm pulmonary embolism to a segmental branch of the left descending pulmonary artery. There are findings consistent with COPD. There is no evidence of acute chest disease. N.B. : The above Results were Read Back by Jame Mesa MD to Ken Medel DO, and understanding confirmed on 11/27/2023 19:08:39 (ET). Electronically Signed: Jame Mesa MD at 19:12 EDT , Assessment & Plan Assessment/Plan (1) Pulmonary embolism: QUALIFIERS: Pulmonary embolism type: single subsegmental (without acute cor pulmonale) Qualified Code(s): I26.93 - Single subsegmental pulmonary embolism without acute cor pulmonale (2) Medical non-compliance: (3) Hypercoagulable state: (4) Acute kidney injury: (5) Chronic renal failure, stage 2 (mild): (6) Hyponatremia: (7) Hypokalemia: (8) History of ischemic left MCA stroke: (9) Peripheral arterial disease: PLAN: Plan 1. CT evidence of ~5 mm PE in a subsegmental branch of the Left descending pulmonary artery this admission in the setting of medical non-compliance with Coumadin and known hypercoagulable state - Admit to PCU under observation status. Continue Eliquis begun in the ER and continue as outpatient if possible. 2. Chronic severe swelling of Right>>Left upper extremities suspicious for DVT complicating #1 - Check bilateral upper and lower extremity Doppler to confirm suspicion. 3. Medical non-compliance with Coumadin due to erratic fluctuations in INR and poor finances compounding #1 & #2 - Case management will be consulted to see if patient can receive assistance with his medications to prevent escalating morbidity and serial readmission. 4. History of hypercoagulable state; +Lupus anticoagulant, +Cardiolipin Anti-b IgM and increased Homocysteine level with patient supposed to be on chronic Coumadin adding to the pathology of #1 - #3 - Patient thoroughly educated on the need for strict compliance with anticoagulant regimen. 5. History of Left MCA CVA x 2 (~2019); with declining memory further hampering his ability to take his medications as prescribed extending the negative impact of #1 - #4 - Noted. Patient may benefit from home health services to help him manage his medications given his more limited limited cognitive abilities since his CVA's. 6. History of dilated cardiomyopathy; with LVEF ~27% (2018) with history of CHF, history of SVT, history of LBBB and history of cardiac arrest; with successful resuscitation with subsequent PPM/AICD with mildly elevated BNP of 191.6 pg/mL present on admission - Fluid restrict to ~1.5 L/day. Recheck echocardiogram to evaluate LVEF. 7. Suspected JUAN; in the setting of known CKD; stage II with elevated serum creatinine of 1.85 mg/dL (up from his baseline of approximately 1.4 g/dL last admission) present on admission plus Mild Hypokalemia of 3.3 mmol/L with Mild Hyponatremia of 130 mmol/L present on admission - Give supplemental KCl and NS IVF and then recheck CMP in the AM to ensure correction. 8. Essential hypertension - Restart home regimen plus give as needed IV hydralazine for systolic blood pressure greater than 160 mmHg. 9. Hyperlipidemia - Resume statin and check lipid profile. 10. History of tobacco abuse - Tobacco cessation will be strongly encouraged with nicotine patch over to control cravings. 11. PAF; with patient not taking his medications for months - Noted with the patient currently V-paced on monitor. 12. CAD; s/p stent (2019) - Stable, with normal troponin of 40 pg/mL present on admission. 13. PVD; with history of multiple stents in both legs and history of Left AKA history after Chronic Osteomyelitis of Left stump with history of MRSA - Stable with recommendations to isolate for MRSA discontinued because this bacteria is now apparently endemic in the community. 14. JOSE - Stable. 15. Chronic anemia - Stable with hemoglobin of 11.6 g/dL present on admission. 16. History of cholecystectomy - Noted. 17. History of elevated LFT's attributed to cholestatic liver disease - Noted. 18. BPH - Apparently stable. Restart Tamsulosin as previous. 19. History of lumbar radiculopathy - Stable. 20. OA; with chronic back pain and polyarthropathy - Give Tylenol prn. 21. DVT prophylaxis - Patient started on Eliquis for #1. Total time: Approximately 85 minutes. Charges/Coding Visit Charges OBSV E&M: 25402 Observ/hosp same date L2
[2023-11-27 21:46] LABS: BNP,B-Type NATRIURETIC PEPTIDE 191.6 pg/mL (0-100)
[2023-11-27] MEDS: APIXABAN 5 MG TABLET 10 MG PO (21:58)
[2023-11-27] MEDS: 0.9% Saline Lock 10 ML Syringe IV (23:15)
[2023-11-27] MEDS: 0.9% Normal Saline (1000mL) 1,000 ML 50 ML IV (23:15)
[2023-11-27] MEDS: MELATONIN 3 MG TABLET PO (23:15)
--- NOTE | 2023-11-28 03:23 | VDUE_ITS ---
Reason For Study: Pulmonary embolism Right Proximal Left Proximal Right jugular vein is spontaneous, widely Left jugular vein is spontaneous, widely patent, phasic, with no intraluminal patent, phasic, with no intraluminal echogenicity noted. echogenicity noted. Right subclavian vein is spontaneous, widely Left subclavian vein is spontaneous, widely patent, phasic, with no intraluminal patent, phasic, with no intraluminal echogenicity noted. echogenicity noted. Right Lower Arm Left Arm Right radial vein is compressible. Left axillary vein is spontaneous, patent, Right ulnar vein is compressible. phasic, competent, compressible and Right Arm demonstrates augmentation. Right axillary vein is spontaneous, patent, Left brachial vein is compressible. phasic, competent, compressible and Left cephalic vein is compressible. demonstrates augmentation. Left basilic vein is compressible. Right brachial vein is compressible. Left Lower Arm Right cephalic vein is compressible. Left radial vein is compressible. Right basilic vein is compressible. Left ulnar vein is compressible. Patient Safety Prelimnary report given to [facility]. VL/Venous Duplex US - Fish Extrem Interpretation Summary Deep veins of the bilateral upper extremities are patent and compressible segme ntally. There is no evidence of deep vein thrombosis. Superficial veins of the bilateral upper extremities are patent and compressibl e segmentally. There is no evidence of superficial vein thrombosis. Ordering Physician: Abundio Steele Referring Physician: Dharmesh Alonso Performed By: Joan Medina RVT ???
--- NOTE | 2023-11-28 03:26 | VDLE_ITS ---
Reason For Study: Pulmonary embolism RIGHT LEFT GSV is normal. GSV is normal. CFV is compressible, spontaneous, phasic, CFV is compressible, spontaneous, phasic, competent and demonstrates normal competent, and demonstrates normal augmentation. augmentation. FV is compressible, spontaneous, phasic, FV is compressible, spontaneous, phasic, competent and demonstrates normal competent and demonstrates normal augmentation. augmentation. POP V is compressible, spontaneous, phasic, Left above knee amputation. competent and demonstrates normal augmentation. T/P Trunk is compressible. PTV is compressible. RT PerV is compressible. Procedure This is a venous duplex using B-mode, color flow and spectral Doppler. Exam performed portable in patient room. A preliminary report was called and/or faxed to [facility]. VL/Venous Duplex US - Fish Extrem Interpretation Summary Deep veins of the bilateral lower extremities are patent and compressible segme ntally. There is no evidence of bilateral lower extremity deep vein thrombosis. The bilateral great saphenous veins appear patent and compressible segmentally. Prior left above knee amputation. Ordering Physician: Abundio Steele Referring Physician: Dharmesh Alonso Performed By: Joan Medina RVT
--- NOTE | 2023-11-28 03:52 | ECHOCS_ITS ---
Reason For Study: Elevated BTNP, Hx Dilated CMP Procedure This was a 2D Doppler, Color Flow transthoracic echocardiogram. The study was technically difficult. Contrast injection was performed. Exam performed portable in patient room. Left Ventricle Normal LV size. Mild concentric left ventricular hypertrophy. Left ventricular systolic function is normal. The left ventricular ejection fraction is 55 %. Stage 1 diastolic dysfunction. No regional wall motion abnormalities noted. Right Ventricle Normal RV size. Normal systolic function. Atria Normal left atrium. Normal right atrium. Mitral Valve Normal mitral valve. Tricuspid Valve Normal tricuspid valve. Aortic Valve Trisinus/trileaflet aortic valve. Pulmonic Valve Normal pulmonic valve. Great Vessels Normal aortic root. The pulmonary artery is normal size. Normal inferior vena cava. Pericardium/Pleural No pericardial effusion. Medication Diluted definity 3ml given slow IV push to enhance endocardial definition. MMode/2D Measurements & Calculations LVIDd: 4.4 cm IVSd: 1.2 cm LVOT diam: 2.0 cm LVIDs: 3.9 cm LVPWd: 1.5 cm RVDd: 3.6 cm FS: 10.8 % LVOT area: 3.3 cm2 Ao root diam: 3.3 cm LAV(MOD-bp): 45.3 ml LA A4 area: 15.9 cm2 LA dimension: 3.3 cm LAV(MOD-bp) Indexed: 21.2 ml/m2 LAV(MOD-sp2): 48.6 ml LAV(MOD-sp4): 41.1 ml TAPSE: 1.7 cm RA A4 area: 12.3 cm2 Time Measurements MV dec time: 0.10 sec Doppler Measurements & Calculations MV E max ruben: 45.0 cm/sec Lat Peak E' Ruben: 5.3 cm/sec Med Peak E' Ruben: 8.6 cm/sec MV A max ruben: 78.8 cm/sec E/E' lat: 8.5 E/E' med: 5.2 MV E/A: 0.57 MV V2 max: 102.0 cm/sec MV P1/2t max ruben: 51.0 cm/sec Ao V2 max: 123.2 cm/sec MV max P.2 mmHg MV P1/2t: 44.6 msec Ao max P.1 mmHg MV V2 mean: 57.6 cm/sec MV dec slope: 335.4 cm/sec2 Ao V2 mean: 79.4 cm/sec MV mean P.6 mmHg Ao mean P.1 mmHg MV V2 VTI: 17.2 cm MVA(P1/2t): 4.9 cm2 Ao V2 VTI: 16.8 cm MVA(VTI): 3.1 cm2 AV (velocity ratio): 0.98 RYAN(I,D): 3.2 cm2 RYAN(V,D): 2.8 cm2 LV V1 max: 106.8 cm/sec SV(LVOT): 53.2 ml PA V2 max: 104.6 cm/sec LV V1 max P.6 mmHg PA max PG (full): 1.4 mmHg LV V1 mean P.5 mmHg LV V1 mean: 74.7 cm/sec LV V1 VTI: 16.4 cm ECHO/Echo Complete W/ Contrast Interpretation Summary Normal LV size. Left ventricular systolic function is normal. Mild concentric left ventricular hypertrophy. The left ventricular ejection fraction is 55 %. Stage 1 diastolic dysfunction. Contrast injection was performed. Compared to previous study, the left ventricu lar systolic function has improved.. Ordering Physician: Abundio Steele Performed By: Dean Jeffers and Student
[2023-11-28] MEDS: Acetaminophen 325 MG Tablet 650 MG PO (05:10)
[2023-11-28 06:00] VITALS: BMI 24.9
[2023-11-28 07:07] LABS: Absolute Lymphocyte Count 2.13 X10^3/uL (0.83-4.51); Absolute Neutrophil Count 5.1 X10^3/uL (2.0-7.7); Basophil% 1.2 % (0-1); Eosinophil# 0.15 X10^3/uL; Eosinophils% 1.8 % (0-5); Hematocrit 36.2 % (40-54); Hemoglobin 11.6 g/dL (13.0-16.5); Lymphocyte # 2.13 X10^3/ul (0.83-4.51); Lymphocyte % 25.7 % (19-41); Mean Corpuscular Hgb 26.6 pg (27.0-32.0); Mean Platelet Vol. 10.1 fl (6.2-12.0); Monocyte# 0.72 X10^3/uL; Monocyte% 8.7 % (0-10); NRBC Flagged by Analyzer 0 % (0-5); Neutrophil # 5.13 X10^3/uL (2.7-7.7); POSITIVE MORPHOLOGY YES; Platelet Count 166 K/mm3 (150-450); RBC Distribution Width CV 24.4 % (11.6-14.6); RBC Distribution Width SD 69.9 fl (35.1-43.9); Red Blood Count 4.36 M/mm3 (4.6-6.2); White Blood Count 8.3 K/mm3 (4.4-11.0)
[2023-11-28 07:08] LABS: Differential Indicated SCAN CRITERIA MET
[2023-11-28 07:30] LABS: Anisocytosis 1+
[2023-11-28 07:37] VITALS: O2SAT 98
[2023-11-28 07:58] LABS: ALB/GLOB Ratio 0.7 RATIO (0.9-2.4); AST(SGOT) 30 U/L (15-37); Alanine Aminotransfer ALT/SGPT 18 U/L (16-61); Albumin, Serum 2.6 g/dL (3.2-5.0); Alkaline Phosphatase 97 U/L (45-117); Anion Gap 9 (5-15); BUN 9 mg/dL (7-18); Chloride 95 mmol/L (98-107); Creatinine, Serum 1.79 mg/dL (0.70-1.30); EST Glomerular Filtration Rate 42 mL/min (>60); Est Glom Filt Rate - Afr Amer 50 mL/min (>60); Globulin 3.8 g/dL (2.2-4.2); Glucose 99 mg/dL (74-106); Phosphorus 3.6 mg/dL (2.5-4.9); Potassium 3.6 mmol/L (3.5-5.1); Protein, Total 6.4 g/dL (6.4-8.2); Sodium Level 127 mmol/L (136-145); Thyroid Stim Hormone (TSH) 2.42 uIU/mL (0.358-3.74)
[2023-11-28 08:00] VITALS: BP 155/97; PULSE 102; RESP 20; TEMP 36.3; O2SAT 98
--- NOTE | 2023-11-28 08:21 | PCM.PN.HOSP ---
Reason for Visit Reason for Visit: Shortness of breath/severe upper extremity edema Subjective Subjective Mr. Alcantar is a 58-year-old white male who presented to the emergency department at on 11/27/2023 with a chief complaint of shortness of breath and severe upper extremity edema. He has a history of hypercoagulable state having positive lupus anticoagulant/cardiolipin antibody and increased homocystine level and has previously been on Coumadin and Eliquis for VTE and PAF. He has multiple other comorbidity as well but has not been taking his medications for about the last 2 months due to lack of money to pay for these. At some point during this time. He was seen by his counter supervisor and started on diuretic therapy however not improved. He had been taking 40 mg of Lasix p.o. twice daily. He reported he had previously been on Coumadin but his levels have been fluctuating wildly so they switched him to Eliquis for more steady state however this was stopped due to lack of finances. He did indicate on presentation he has health insurance but does not have enough coverage for medication. Upon presentation he reported that for about 2 months he has had issues with bilateral upper extremity swelling right greater than left as well as swelling in his abdomen and progressively worsening shortness of breath. He denied fever or chills, nausea or vomiting but did admit to some cough and dyspnea on exertion. Vital signs on presentation showed a temperature of 97.1, heart rate 127, respiratory 22, blood pressure is 154/103 and pulse ox was 100% on room air. CBC showed a chronic stable anemia that was mild 11.6 but was otherwise unremarkable. His D-dimer was found to be 3.08. Chemistry panel showed hyponatremia with a sodium of 130, potassium of 3.3 and a serum creatinine of 1.85. His blood glucose level was 139 however this was nonfasting. BNP was 191.6 and TSH was normal at 2.42. Cardiac enzymes were cycled and initial was 41 with a delta of 40. Chest x-ray was unremarkable for any acute findings. Given his elevated D-dimer a CTA of his chest was performed and showed a single tiny 5 mm filling defect in the segmental pulmonary artery branches to the left lateral basal segment with no other VTE noted, partial compression fracture at T12 and L1 of indeterminate age and probable old midsternal fracture as well as prominent asymmetric intraluminal thrombus in the visualized upper aorta. He was given full dose Eliquis at 10 mg p.o. twice daily and admitted to the PCU for ongoing treatment and evaluation with regards to his upper extremity edema and lab abnormalities. Patient states his upper extremity swelling is really only been present for a couple of days. He felt he had been doing well given the fact he had been on any medications however everything fell apart quickly. He he indicates he realizes this is his fault because he not been taking his medications. I did discuss that social work would be in contact with him while he is here to help with medication acquisition prior to discharge. Objective Data Objective Data Vital Signs: Vital Signs Temp Pulse Resp BP Pulse Ox O2 Del Method 97.5 F L 113 H 18 171/99 H 99 Room Air 11/27/23 23:28 11/27/23 23:28 11/27/23 23:28 11/27/23 23:28 11/27/23 23:30 11/28/23 05:03 Oxygen Delivery Method Room Air Weight: 88 kg Body Mass Index (BMI) 24.9 Intake & Output: Intake and Output for Last 24 Hours 11/26/23 11/27/23 11/28/23 23:59 23:59 23:59 Intake Total 120 / 120 Output Total 300 / 300 Balance 120 / 120 -300 / -300 Lab / Micro Data 11/28/23 06:44 11/28/23 06:44 Labs: Laboratory Results - last 24 hr 11/27/23 17:15: WBC 7.9, RBC 4.37 L, Hgb 11.6 L, Hct 35.9 L, MCV 82.2, MCH 26.5 L, MCHC 32.3, RDW Std Deviation 70.3 H, RDW Coeff of Lawson 24.3 H, Plt Count 167, MPV 10.2, Immature Gran % (Auto) 0.500, Neut % (Auto) 68.0, Lymph % (Auto) 22.1, Pinal % (Auto) 6.5, Eos % (Auto) 1.8, Baso % (Auto) 1.1 H, Absolute Neuts (auto) 5.4, Absolute Lymphs (auto) 1.74, Nucleated RBC % 0, Differential Comment , D-Dimer Quant (PE/DVT) 3.08 H*, Sodium 130 L, Potassium 3.3 L, Chloride 97 L, Carbon Dioxide 25.0, Anion Gap 8, BUN 8, Creatinine 1.85 H, Est GFR (MDRD) Af Amer 49 L, Est GFR (MDRD) Non-Af 40 L, BUN/Creatinine Ratio 4.3 L, Glucose 139 H, Calcium 8.3 L, Troponin I High Sens 41, B-Natriuretic Peptide 191.6 H 11/27/23 19:37: Troponin I High Sens 40 11/28/23 06:44: WBC 8.3, RBC 4.36 L, Hgb 11.6 L, Hct 36.2 L, MCV 83.0, MCH 26.6 L, MCHC 32.0, RDW Std Deviation 69.9 H, RDW Coeff of Lawson 24.4 H, Plt Count 166, MPV 10.1, Immature Gran % (Auto) 0.600, Neut % (Auto) 62.0, Lymph % (Auto) 25.7, Pinal % (Auto) 8.7, Eos % (Auto) 1.8, Baso % (Auto) 1.2 H, Absolute Neuts (auto) 5.1, Absolute Lymphs (auto) 2.13, Nucleated RBC % 0, Anisocytosis 1+, Sodium 127 L, Potassium 3.6, Chloride 95 L, Carbon Dioxide 23.0, Anion Gap 9, BUN 9, Creatinine 1.79 H, Estim Creat Clear Calc 52.30, Est GFR (MDRD) Af Amer 50 L, Est GFR (MDRD) Non-Af 42 L, BUN/Creatinine Ratio 5.0 L, Glucose 99, Calcium 8.0 L, Phosphorus 3.6, Magnesium 2.0, Total Bilirubin 1.60 H, AST 30, ALT 18, Alkaline Phosphatase 97, Total Protein 6.4, Albumin 2.6 L, Globulin 3.8, Albumin/Globulin Ratio 0.7 L, TSH 2.42 Radiography Diagnostic Testing: Radiology Impression Chest X-Ray 11/27/23 17:24 IMPRESSION: No definite acute or significant abnormality seen. Electronically Signed: Jame Mesa MD at 17:41 EDT , Chest CTA 11/27/23 18:14 IMPRESSION: Single 5 mm pulmonary embolism to a segmental branch of the left descending pulmonary artery. There are findings consistent with COPD. There is no evidence of acute chest disease. N.B. : The above Results were Read Back by Jame Mesa MD to Ken Medel DO, and understanding confirmed on 11/27/2023 19:08:39 (ET). Electronically Signed: Jame Mesa MD at 19:12 EDT , ADDENDUM: 11/27/23 1919 IMPRESSION: Single 5 mm pulmonary embolism to a segmental branch of the left descending pulmonary artery. There are findings consistent with COPD. There is no evidence of acute chest disease. N.B. : The above Results were Read Back by Jame Mesa MD to Ken Medel DO, and understanding confirmed on 11/27/2023 19:08:39 (ET). Electronically Signed: Jame Mesa MD at 19:12 EDT , Physical Exam Const alert, oriented x3, no apparent distress, average body habitus and well nourished; Negative for healthy appearing Constitutional Narrative: Very pleasant, upper middle-aged, white male, sitting up in bed, appears comfortable, does appear older than stated age, nontoxic-appearing HEENT head/scalp atraumatic and moist oral mucous membranes HEENT Narrative: Dentition is poor, Mallampati is 3, no thrush Head and Scalp: normocephalic Eyes PERRL, EOMs intact bilaterally and conjunctivae normal Eyes Narrative: No scleral icterus Neck no lymphadenopathy and supple Neck Narrative: Trachea midline, neck veins are slightly distended, trachea midline, no thyroid enlargement noted Resp normal respiratory effort, no retractions, no use of accessory muscles and No clear to auscultation bilaterally Resp Narrative: Slightly diminished diffusely more in the apices than the bases with some scattered wheezes in upper lung kathleen bilaterally that clear with cough Auscultation: wheezes; Negative for rales or rhonchi Cardio regular rhythm, S1 normal heart sound, S2 normal heart sound, no murmurs and no rub Cardio Narrative: Mild tachycardia GI normal to inspection, nondistended, normoactive bowel sounds, soft to palpation and non-tender Extremity Extremity Narrative: Bilateral upper extremity pitting edema from hands to mid upper biceps region bilaterally, no cyanosis or clubbing, no lower extremity edema Neuro oriented x3, moves all extremities and no focal motor deficits Speech: speech normal Psych affect normal Psych Narrative: Appropriate, interacts well, pleasant Assessment & Plan Assessment/Plan (1) Hypokalemia: (2) Hyponatremia: (3) Medical non-compliance: (4) Pulmonary embolism: QUALIFIERS: Pulmonary embolism type: single subsegmental (without acute cor pulmonale) Qualified Code(s): I26.93 - Single subsegmental pulmonary embolism without acute cor pulmonale (5) Acute on chronic heart failure with reduced ejection fraction (HFrEF, <= 40%): (6) Aortic thrombus: PLAN: Plan Shortness of breath and upper extremity edema secondary to acute on chronic heart failure with reduced ejection fraction/acute pulmonary embolus -Patient with known hypercoagulable state at baseline but not on medication due to financial issues -Had previously been on Coumadin but had issues with INR control so therefore transition to Eliquis but has been unaffordable as of late -Consult social work/case management for assistance with discharge planning with regards to finances for medications -Continue Eliquis 10 mg p.o. twice daily through 12/06/2023 and then transition to 5 mg p.o. twice daily indefinitely -Transition home Lasix 40 mg p.o. twice daily to IV Lasix 40 mg IV twice daily -Check daily weights -Accurate I's and O's -Sodium and fluid restricted diet -TSH is within normal limits -Echocardiogram is pending -Previous echocardiogram done at outside facility in 2019 showed an EF of 35% -Bilateral upper and lower extremity duplex are pending Aortic thrombus -Anticoagulation as above -CTA on presentation reported prominent asymmetric intraluminal thrombus in the upper aorta Hypokalemia -Replaced -Continue to monitor with ongoing diuresis Hyponatremia -Acute he may be related to worsening volume overload status -Down to 127 from 130 -discontinue IV fluids -Start Lasix 40 mg IV push twice daily Hyperbilirubinemia -Suspect may be related to acute heart failure and passive congestion -Will trend with diuretics -Repeat in a.m. JUAN on CKD stage IIIa -Baseline serum creatinine has been between 1.25 and 1.4 -1.85 -Baseline GFR appears to be between 55 and 60 -Suspect worsening may be related to acute heart failure -Discontinue IV fluids -Start diuretics Lasix 40 mg IV push twice daily -repeat BMP in a.m. -Avoid nephrotoxins -Okay to continue losartan for now but may need to consider discontinuing if renal function worsens History of paroxysmal atrial fibrillation -Continue home carvedilol 12.5 mg p.o. twice daily -May need to consider up titration depending on blood pressures and heart rates -Eliquis next-monitor on telemetry History of left MCA stroke x 2 -Patient with memory issues negatively impacting his ability to remember taking his medications -No significant physical deficits History of dilated cardiomyopathy/SVT/chronic LBBB/history of cardiac arrest -All remote -Has PPM/AICD -Treatment as above CAD/essential hypertension/hyperlipidemia -Patient with previous PCI -Continue home aspirin -Restart statin -Lipid profile is pending -Continue home losartan -Continue home carvedilol -As needed hydralazine -Monitor blood pressure and heart rate may need up titration of beta-marietta or losartan Peripheral vascular disease -History of multiple stents in both legs next-continue home aspirin History of left AKA due to chronic osteomyelitis -PT/OT consultation -Chronic/stable Chronic anemia Hemoglobin stable next-continue to monitor JOSE -Patient noncompliant at baseline and has been intolerant to CPAP previously Tobacco abuse -recommend cessation -Nicotine patch available Medication noncompliance - due to cost -Social work/case management consultation to assist with discharge planning DVT prophylaxis -Eliquis as above CODE STATUS -DNR CCA with no intubation per discussion with patient Charges/Coding Visit Charges Inpatient E&M: 30813 Subs Hosp L3
[2023-11-28 08:40] LABS: Cholesterol 80 mg/dL (200); High Density Lipoprotein 16 mg/dL; Triglycerides 129 mg/dL; Very Low Density Lipoprotein 26 mg/dL (5-40)
[2023-11-28] MEDS: Losartan Potassium 25 MG Tablet PO (08:55)
[2023-11-28] MEDS: Carvedilol 12.5 MG Tablet PO (08:56)
[2023-11-28] MEDS: APIXABAN 5 MG TABLET 10 MG PO ×2 (08:56→22:00)
[2023-11-28] MEDS: Aspirin 81 MG TAB.CHEW PO (08:56)
[2023-11-28] MEDS: Tamsulosin HCl 0.4 MG Capsule PO (08:56)
[2023-11-28] MEDS: Gabapentin 300 MG Capsule 900 MG PO (09:01)
[2023-11-28] MEDS: Potassium Chloride Oral Tablet 20 MEQ 40 MEQ PO (09:01)
[2023-11-28] MEDS: Furosemide 40 MG/4 ML Vial IV ×2 (09:01→17:45)
--- NOTE | 2023-11-28 11:30 | CASEMGMT ---
RN CM Face to Face with patient for initial transition planning/care coordination assessment. RN CM introduced self and role at [facility]. Patient lying in bed, alert and oriented. Patient willing to participate in assessment and is able to answer all questions appropriately. Care providers, pharmacy, and demographics verified. PCP: Gavin Specialists: David, nuclear auxiliary operator; Preferred Pharmacy: [facility] [place] Insurance: [employer] [facility] Prescription Benefit: yes, RN ANNABELLA called [facility] and confirmed he has part D coverage Living Will/HPOA: yes, Roxana Alcantar LNOK: Living Arrangements: Patient lives with in a single story home with ramp to enter. Patient states he is independent at home. Transportation: self, DME/HHC: Patient has wheelchair, power scooter, and shower chair at home. Patient states he has had HHC in the past but does not recall agency. No previous SNF. Patient wishes to discharge home, denies need for home health at this time. Patient understands the importance of taking his medications. Will monitor for celis of meds and offer resources if applicable. Patient states he has no further needs or concerns at this time. CM to follow for discharge planning needs that may arise. Disposition Plan: Patient to discharge home with family support and follow-up plans in place. Joan PATEL, RN, CM
--- NOTE | 2023-11-28 11:37 | CASEMGMT ---
Social Work- SW met with pt to provide resources for prescription programs, as it was noted by physician and in chart that pt has not been medication compliant d/t challenges with/obtaining medications. Pt reports that he changed plans and since that time, coverage has become less and less. Pt could not find [employer] card in his wallet and there is not a card in pt chart. Pt states that he believes some of his medications are covered, but couldn't identify which meds were covered. Pt was provided with information on [employer], [employer], [employer], Prescription coverage programs and applications, and OSHIP. SW collaborated with RNCM. Pt indicates no other needs at this time. SW remains available to follow. LINDA Ortega
[2023-11-28] MEDS: Ondansetron 4 MG/2 ML Vial IV (13:19)
[2023-11-28 14:00] VITALS: BP 102/59; PULSE 85; RESP 22; TEMP 36.4; O2SAT 99
[2023-11-28 15:53] LABS: Anion Gap 10 (5-15); BUN 13 mg/dL (7-18); BUN/Creat Ratio 6.7 RATIO (10-20); Calcium,Total 7.8 mg/dL (8.5-10.1); Chloride 95 mmol/L (98-107); Creatinine, Serum 1.93 mg/dL (0.70-1.30); EST Glomerular Filtration Rate 38 mL/min (>60); Est Glom Filt Rate - Afr Amer 46 mL/min (>60); Estimated Creatinine Clearance 48.51 ml/min; Glucose 103 mg/dL (74-106); Magnesium 2.1 mg/dL (1.6-2.6); Potassium 3.7 mmol/L (3.5-5.1); Sodium Level 130 mmol/L (136-145)
--- NOTE | 2023-11-28 16:03 | CHAPLAIN ---
Type of Pastoral Visit _x__ Initial Visit ___ Follow-up Visit ___ On-call Visit ___ General Patient Visit ___ Spiritual Assessment ___ Family Conference ___ Bereavement ___ Rapid Response ___ Code Blue ___ Other (describe below) Pastoral Care Referral From _x__ Patient ___ Family ___ Nurse ___ Physician ___ Configuration Technician ___ Historic Sites Supervisor ___ Other (describe below) Sacrament/Intervention _x__ Active listening ___ Anointing ___ Amish ___ Bereavement ___ Communion _x__ Misty exploration ___ _x__ Life review _x__ Prayer ___ Reconciliation ___ Sacrament of Sick _x__ Supportive presence ___ Wedding ___ Other (describe below) Pastoral Comments this patient has been seen before in previous admissions; time given to catch up on what life is like for the patient; pt talks about his health, his feelings about his life, and his current misty experience; pt welcomes prayer and presence of the home supervisor
[2023-11-28 19:53] VITALS: BP 91/54; PULSE 70; RESP 18; TEMP 36.6; O2SAT 99
[2023-11-28 20:01] LABS: CPK Total, Creatine Kinase 99 U/L (39-308)
[2023-11-28 21:52] VITALS: BP 85/60; PULSE 75; RESP 18; TEMP 36.3; O2SAT 100
[2023-11-28] MEDS: MELATONIN 3 MG TABLET PO (21:59)
[2023-11-28] MEDS: Temazepam 15 MG Capsule PO (21:59)
[2023-11-28] MEDS: Atorvastatin Calcium 40 MG Tablet PO (22:00)
[2023-11-29] VITALS (7 sets, daily range): BP systolic 94–137; BP diastolic 52–79; PULSE 72–89; RESP 18; TEMP 36.1–36.6; O2SAT 96–100; BMI 25.7
[2023-11-29 07:29] LABS: Absolute Neutrophil Count 3.6 X10^3/uL (2.0-7.7); Basophil# 0.05 X10^3/uL; Basophil% 0.8 % (0-1); Eosinophil# 0.22 X10^3/uL; Eosinophils% 3.7 % (0-5); Hematocrit 31.4 % (40-54); Hemoglobin 9.9 g/dL (13.0-16.5); Lymphocyte % 28.7 % (19-41); Mean Corp Hgb Conc 31.5 g/dL (32-36); Mean Corpuscular Volume 85.6 fL (80-94); Mean Platelet Vol. 10.4 fl (6.2-12.0); Monocyte# 0.38 X10^3/uL; Monocyte% 6.4 % (0-10); NRBC Flagged by Analyzer 0 % (0-5); Neutrophil # 3.56 X10^3/uL (2.7-7.7); Neutrophil % 60.1 % (47-70); POSITIVE MORPHOLOGY YES; Platelet Count 151 K/mm3 (150-450); RBC Distribution Width CV 23.8 % (11.6-14.6); RBC Distribution Width SD 72.4 fl (35.1-43.9); Red Blood Count 3.67 M/mm3 (4.6-6.2); White Blood Count 5.9 K/mm3 (4.4-11.0)
[2023-11-29 07:36] LABS: Differential Indicated SCAN CRITERIA MET
[2023-11-29 08:04] LABS: ALB/GLOB Ratio 0.7 RATIO (0.9-2.4); AST(SGOT) 20 U/L (15-37); Alanine Aminotransfer ALT/SGPT 16 U/L (16-61); Albumin, Serum 2.4 g/dL (3.2-5.0); Alkaline Phosphatase 77 U/L (45-117); Anion Gap 8 (5-15); BUN 16 mg/dL (7-18); BUN/Creat Ratio 8.6 RATIO (10-20); Calcium,Total 7.9 mg/dL (8.5-10.1); Chloride 95 mmol/L (98-107); Creatinine, Serum 1.86 mg/dL (0.70-1.30); EST Glomerular Filtration Rate 40 mL/min (>60); Est Glom Filt Rate - Afr Amer 48 mL/min (>60); Estimated Creatinine Clearance 50.33 ml/min; Globulin 3.4 g/dL (2.2-4.2); Glucose 92 mg/dL (74-106); Magnesium 2.1 mg/dL (1.6-2.6); Phosphorus 4.4 mg/dL (2.5-4.9); Protein, Total 5.8 g/dL (6.4-8.2); Sodium Level 129 mmol/L (136-145)
--- NOTE | 2023-11-29 08:30 | CT_ITS ---
INDICATION: aortic thrombus EXAMINATION: CTA abdomen and pelvis - TECHNIQUE: Routine abdominal CT angiogram protocol was performed with IV contrast. MIP images provided. The protocol utilizes one or more of the following dose reduction techniques: automated exposure control, adjustment of mA and/or kV according to patient size,and/or use of iterative reconstruction technique. IV Contrast dosage and agent: 100 cc of Isovue-370 RADIATION DOSAGE (If Supplied By Facility): CTDIvol = ( 22.42 ) mGy, DLP = ( 843 ) mGycm COMPARISON: 12/06/2013 FINDINGS: Lung bases: Normal. Liver: Normal. No bile ductal dilatation. Gallbladder: Status post cholecystectomy. Spleen: Unremarkable Adrenal gland: Normal. Kidneys: Unremarkable right kidney. Small atrophic left kidney with occluded left renal artery. Pancreas:Unremarkable. Bowel gas pattern: Nonspecific fluid-filled small bowel loops without evidence of bowel obstruction Appendix: Normal. Free air: None. Free fluid: None. Pelvis: Pelvic organs: No mass lesion noted. Bone survey: Small sclerotic lesion at L2 likely due to bone island. Mild anterior wedging of T12 and L1. Adenopathy: No significant pathologic adenopathy detected. Vascular: There are sclerotic changes with intramural thrombus of the abdominal aorta worse at the level of the renal arteries with approximately 60% narrowing of the lumen. Calcifications at the origin of the left common iliac artery. Stent in the right common iliac artery with absence flow the common femoral arteries bilaterally appear to be occluded. Unremarkable celiac access and SMA. Occluded left renal artery. Unremarkable right renal artery. The SUZANNE appears to be patent CT/CTA Abd/Pelvis W/WO Contrast IMPRESSION: 1. Mural thrombus of the abdominal aorta worse at the level of the renal arteries with approximately 60% stenosis. 2. Occluded left renal artery with atrophic poorly enhancing left kidney. 3. Right common iliac artery stent appears to be occluded. 4. Occluded common femoral arteries reconstituted distally. Electronically Signed: Audie May MD at 10:39 EDT ,
[2023-11-29 08:43] LABS: Anisocytosis 1+
[2023-11-29] MEDS: Aspirin 81 MG TAB.CHEW PO (09:31)
[2023-11-29] MEDS: 0.9% Saline Lock 10 ML Syringe IV (09:31)
[2023-11-29] MEDS: Losartan Potassium 25 MG Tablet PO (09:31)
[2023-11-29] MEDS: Gabapentin 300 MG Capsule 900 MG PO (09:32)
[2023-11-29] MEDS: APIXABAN 5 MG TABLET 10 MG PO ×2 (09:32→21:28)
[2023-11-29] MEDS: Potassium Chloride Oral Tablet 20 MEQ 60 MEQ PO (09:32)
[2023-11-29] MEDS: Tamsulosin HCl 0.4 MG Capsule PO (09:32)
--- NOTE | 2023-11-29 10:31 | CASEMGMT ---
Addendum entered by Mary Pope 11/29/23 15:23: Per Dr Boles, pt to discharge home on Eliquis and Script has been sent to [facility] retail pharmacy. Per pharmacy, pt has used the Eliquis 30-day free trial offer in the past. Eliquis processed thru insurance and pt's ane-mi-sfrkvn cost is $47 for 30 day supply, as of today. Per Palma in the pharmacy, Dr Boles will need to send new script to the pharmacy @ dc, as the # of loading-dose tablets pt will need @ dc will change, depending on how many doses he gets while in the hospital. Dr Boles is aware of same. Palma states it shows that pt had Gabapentin 90-day supply filled on September 24, so he should still have some supply remaining. Pt states he ran out of it about 2 weeks ago. He states sometimes he would take 2 tablets (instead of the prescribed 1 1/2 tabs) and so ran out sooner than should have. Palma made aware. She states Dr Boles is decreasing his dosage and she will try to process it through insurance so pt can take home @ dc. Palma states pt did have a Rx for furosemide from [facility] from 11/26. Pt states he did not pick that Rx up. Per Dr Boles, she does not plan to have pt dc on furosemide. Palma in the pharmacy made aware. Palma states she has spoken w/Dr Boles re: other medications pt will discharge home on. She has processed all of pt's medications and total cost (Eliquis included), is ~ $60. Pt made aware and states this is affordable. Pt states he has looked over the PCP list and [facility] info. He declines wanting any appts scheduled w/new PCP at this time. He states plans to continue to see Dr Alonso @ discharge for now. Per [facility], pt's Rx ID # is: [id number]. Addendum entered by Mary Pope 11/29/23 13:59: Per Dr Boles, pt interested in switching to different PCP. DARSHAN CM to room. Pt provided w/local PCP directory and also provided info on [facility]. Addendum entered by Mary Pope 11/29/23 12:46: Discussed Pt Link w/patient and he is agreeable. Consult order placed. Addendum entered by Mary Pope 11/29/23 11:04: Call placed to Palma @ [facility] to have all meds from [facility] filled. DARSHAN WINC[place]STER will call to do celis check when info is available. Addendum entered by Mary Pope 11/29/23 10:56: Pt states does not have any meds @ home and would like all of his Rx's that are @ [facility]/[place] filled for him to take home @ discharge. He would like celis check done on them to make sure his is able to afford them. Addendum entered by Mary Pope 11/29/23 10:44: Call placed to [facility]. They were made aware pt would like all of his Rx's @ [facility] in [place] transferred to [facility] pharmacy. Original Note: DARSHAN WINCHESTER NOTE: DARSHAN WINCHESTER to room. Introduced self and role. Pt states he would like to get all of his new meds from [facility] retail pharmacy @ discharge and states would also like all of his Rx's from [facility] to be transferred to [facility] retail pharmacy so he can all of his meds from there in the future. Discussed Eliquis and 30-day free trial offer. He states he has been on Eliquis in the past but states has not used the savings card. He was made aware it will be applied in the pharmacy and he will get a 30-day fill for free @ discahrge (unless it is determined he has it used before). He was made aware it is a sbuv-hu-z-lifetime use savings card and he voices understanding. He states the reason for Eliquis being discontinued was d/t the cost. Call placed to [facility]/cardiology. Pt has an appt w/[facility], next week December 04 @ 10 AM. They were notified of pt's concern re: cost of Eliquis/refills. She states they will talk w/pt @ his appt and assist him w/filling out application for Rx assist. Pt made aware and voices appreciation. Gina PATEL RN, CM
[2023-11-29] MEDS: Acetaminophen 325 MG Tablet 650 MG PO ×2 (11:57→21:28)
[2023-11-29 12:18] LABS: Hemoglobin 9.5 g/dL (13.0-16.5)
--- NOTE | 2023-11-29 12:56 | PCM.DC.SUM ---
Providers Date of Admission: 11/28/23 Date of Discharge: 12/02/23 Primary Care Physician: Dr. Dharmesh Alonso MD Reason For Visit: PE, IN THE SETTING OF MEDICAL NONCOMPLAINCE Diagnosis Discharge Diagnosis (1) Hypokalemia: Status: Acute Code(s): E87.6 - Hypokalemia (2) Hyponatremia: Status: Acute Code(s): E87.1 - Hypo-osmolality and hyponatremia (3) Medical non-compliance: Status: Acute Code(s): Z91.199 - Patient's noncompliance with other medical treatment and regimen due to unspecified reason (4) Pulmonary embolism: Status: Acute Code(s): I26.99 - Other pulmonary embolism without acute cor pulmonale Qualifiers: Pulmonary embolism type: single subsegmental (without acute cor pulmonale) Qualified Code(s): I26.93 - Single subsegmental pulmonary embolism without acute cor pulmonale (5) Acute on chronic heart failure with reduced ejection fraction (HFrEF, <= 40%): Status: Chronic Code(s): I50.23 - Acute on chronic systolic (congestive) heart failure (6) Aortic thrombus: Status: Acute Code(s): I74.10 - Embolism and thrombosis of unspecified parts of aorta Plan Shortness of breath and upper extremity edema secondary to acute on chronic heart failure with reduced ejection fraction/acute pulmonary embolus -Patient with known hypercoagulable state at baseline but not on medication due to financial issues -Had previously been on Coumadin but had issues with INR control so therefore transition to Eliquis but has been unaffordable as of late -Consult social work/case management for assistance with discharge planning with regards to finances for medications -Continue Eliquis 10 mg p.o. twice daily through 12/06/2023 and then transition to 5 mg p.o. twice daily indefinitely -Transition home Lasix 40 mg p.o. twice daily to IV Lasix 40 mg IV twice daily -Check daily weights -Accurate I's and O's -Sodium and fluid restricted diet -TSH is within normal limits -Echocardiogram is pending -Previous echocardiogram done at outside facility in 2019 showed an EF of 35% -Bilateral upper and lower extremity duplex are pending Aortic thrombus -Anticoagulation as above -CTA on presentation reported prominent asymmetric intraluminal thrombus in the upper aorta Hypokalemia -Replaced -Continue to monitor with ongoing diuresis Hyponatremia -Acute he may be related to worsening volume overload status -Down to 127 from 130 -discontinue IV fluids -Start Lasix 40 mg IV push twice daily Hyperbilirubinemia -Suspect may be related to acute heart failure and passive congestion -Will trend with diuretics -Repeat in a.m. JUAN on CKD stage IIIa -Baseline serum creatinine has been between 1.25 and 1.4 -1.85 -Baseline GFR appears to be between 55 and 60 -Suspect worsening may be related to acute heart failure -Discontinue IV fluids -Start diuretics Lasix 40 mg IV push twice daily -repeat BMP in a.m. -Avoid nephrotoxins -Okay to continue losartan for now but may need to consider discontinuing if renal function worsens History of paroxysmal atrial fibrillation -Continue home carvedilol 12.5 mg p.o. twice daily -May need to consider up titration depending on blood pressures and heart rates -Eliquis next-monitor on telemetry History of left MCA stroke x 2 -Patient with memory issues negatively impacting his ability to remember taking his medications -No significant physical deficits History of dilated cardiomyopathy/SVT/chronic LBBB/history of cardiac arrest -All remote -Has PPM/AICD -Treatment as above CAD/essential hypertension/hyperlipidemia -Patient with previous PCI -Continue home aspirin -Restart statin -Lipid profile is pending -Continue home losartan -Continue home carvedilol -As needed hydralazine -Monitor blood pressure and heart rate may need up titration of beta-marietta or losartan Peripheral vascular disease -History of multiple stents in both legs next-continue home aspirin History of left AKA due to chronic osteomyelitis -PT/OT consultation -Chronic/stable Chronic anemia Hemoglobin stable next-continue to monitor JOSE -Patient noncompliant at baseline and has been intolerant to CPAP previously Tobacco abuse -recommend cessation -Nicotine patch available Medication noncompliance - due to cost -Social work/case management consultation to assist with discharge planning DVT prophylaxis -Eliquis as above CODE STATUS -DNR CCA with no intubation per discussion with patient Medications at Discharge Home Medications apixaban 5 mg tablet (Eliquis) 5 mg PO BID #60 tabs 11/29/23 apixaban 5 mg tablet (Eliquis) 10 mg (2 x 5 mg) PO BID #24 tabs 11/29/23 atorvastatin 40 mg tablet 40 mg PO DAILY #90 tabs 11/29/23 carvedilol 3.125 mg tablet 3.125 mg PO BIDCM #60 tabs 11/29/23 furosemide 40 mg tablet 40 mg PO BID #180 tabs 11/29/23 gabapentin 300 mg capsule 600 mg (2 x 300 mg) PO DAILY #60 caps 11/29/23 losartan 25 mg tablet 25 mg PO DAILY #30 tabs 11/29/23 tamsulosin 0.4 mg capsule 0.4 mg PO DAILY #30 caps 11/29/23 pantoprazole 40 mg tablet,delayed release 40 mg PO BID #60 tabs 12/01/23 sucralfate 1 gram tablet 1 g PO 1HR_ACHS #168 tabs 12/01/23 apixaban 5 mg tablet (Eliquis) 5 mg PO BID #69 tabs 12/02/23 Hospital Course Operations None Procedures 2-D Echocardiogram, EGD, EKG and - (CTA chest/CT abdomen and pelvis/bilateral upper and lower extremity ultrasounds/chest x-ray) Summary of Care Provided Hospital Course: Mr. Alcantar is a 58-year-old white male who presented to the emergency department at [facility] on 11/27/2023 with a chief complaint of shortness of breath and severe upper extremity edema. He has a history of hypercoagulable state having positive lupus anticoagulant/cardiolipin antibody and increased homocystine level and has previously been on Coumadin and Eliquis for VTE and PAF. He has multiple other comorbidity as well but has not been taking his medications for about the last 2 months due to lack of money to pay for these. At some point during this time. He was seen by his revival clerk and started on diuretic therapy however not improved. He had been taking 40 mg of Lasix p.o. twice daily. He reported he had previously been on Coumadin but his levels have been fluctuating wildly so they switched him to Eliquis for more steady state however this was stopped due to lack of finances. He did indicate on presentation he has health insurance but does not have enough coverage for medication. Upon presentation he reported that for about 2 months he has had issues with bilateral upper extremity swelling right greater than left as well as swelling in his abdomen and progressively worsening shortness of breath. He denied fever or chills, nausea or vomiting but did admit to some cough and dyspnea on exertion. Vital signs on presentation showed a temperature of 97.1, heart rate 127, respiratory 22, blood pressure is 154/103 and pulse ox was 100% on room air. CBC showed a chronic stable anemia that was mild 11.6 but was otherwise unremarkable. His D-dimer was found to be 3.08. Chemistry panel showed hyponatremia with a sodium of 130, potassium of 3.3 and a serum creatinine of 1.85. His blood glucose level was 139 however this was nonfasting. BNP was 191.6 and TSH was normal at 2.42. Cardiac enzymes were cycled and initial was 41 with a delta of 40. Chest x-ray was unremarkable for any acute findings. Given his elevated D-dimer a CTA of his chest was performed and showed a single tiny 5 mm filling defect in the segmental pulmonary artery branches to the left lateral basal segment with no other VTE noted, partial compression fracture at T12 and L1 of indeterminate age and probable old midsternal fracture as well as prominent asymmetric intraluminal thrombus in the visualized upper aorta. He was given full dose Eliquis at 10 mg p.o. twice daily and admitted to the PCU for ongoing treatment and evaluation with regards to his upper extremity edema and lab abnormalities. His echocardiogram showed significant improvement from previous and his EF was 55% with no wall motion abnormalities. Bilateral upper and lower extremity ultrasounds were negative for any VTE. With the findings on his aorta on the CTA of his chest we did get a CTA of his abdomen and pelvis and he was found to have extensive clot in his abdominal aorta including mural thrombus of the abdominal aorta worse at the level of the renal arteries with approximately 60% stenosis, an occluded left renal artery with atrophic poorly enhancing left kidney, right common iliac artery stent that was occluded and occluded common femoral artery that was reconstituted distally. Given these findings, vascular surgery was consulted and recommended against any intervention. 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 He recommended having cardiology evaluate him as an outpatient to see if he would be a candidate for removal of his AICD given his improvement in EF. Other than that, he recommended ongoing anticoagulation with the Eliquis. Patient has refused to be on Coumadin again. His hemoglobin dropped after being stable in the mid 11 range to 9.9. Repeat later that day was 9.5 and the following morning was 9.1. With the drop, iron studies were obtained and were consistent with iron deficiency. GI was consulted and he was placed on IV Protonix 40 mg p.o. twice daily. Patient did admit to previous peptic ulcer disease. An EGD was performed on 12/01/2023 at which time he was found to have findings in the esophagus consistent with eosinophilic esophagitis and gastric ulcers that were oozing. There were many noted cratered gastric ulcers with the largest being 6 mm. Coagulation for hemostasis was performed using heater probe and hemostasis was noted to be successful postprocedure. Protonix 40 mg p.o. twice daily was recommended indefinitely and he was started on Carafate for the next 6 weeks. Repeat hemoglobin was performed on the a.m. of 12/02/2023 and noted to be stable with only slight drop and per discussion with Dr. Tafoya from GI he felt he was able to be discharged with follow-up. Hemoglobin at discharge was 9.0. I have asked that he call his primary care physician and get a follow-up CBC with them or at his cardiology follow-up on Monday. He was able to be discharged in stable condition to home with prescriptions for all of his medication as well as a prescription card for his Eliquis to cover him for the next month and social work/case management had met with him extensively to get him set up to apply for Medicaid as well as other assistance programs for his ongoing medications. Patient acknowledged that he needed to complete the rest of this and would get his daughter to help him. He did indicate at the time of discharge he may not be staying in the area and may be moving to [place] however he was not certain at the time of discharge. We have made him a follow-up with cardiology for 12/06/2023 and I have advised him to follow-up with gastroenterology, hematology for his hypercoagulable state, and vascular surgery. We have also advised that he follow-up with his primary care physician within the next week after discharge. Patient was able to be discharged home in stable condition on 12/02/2023. All prescriptions were sent to the pharmacy at the hospital so we could provide assistance and he had these prior to discharge. 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 with clot per vascular surgery with request for AICD removal if appropriate per cardiology Aortic thrombus Common femoral thrombus Renal artery thrombus Acute on chronic anemia Peptic ulcer disease Possible eosinophilic esophagitis-biopsies pending Chronic hyponatremia-stable CKD stage IIIa Paroxysmal atrial fibrillation History of stroke-left MCA x 2 History of dilated cardiomyopathy History of SVT Chronic LBBB History of cardiac arrest CAD Essential hypertension Hyperlipidemia Peripheral vascular disease History of AKA due to chronic osteomyelitis JOSE Tobacco abuse Medication noncompliance Physical Exam Const alert, oriented x3, no apparent distress, average body habitus and well nourished; Negative for healthy appearing Constitutional Narrative: Very pleasant, upper middle-aged, white male, sitting up in bed, appears comfortable, does appear older than stated age, nontoxic-appearing, watching television General Appearance: cooperative, comfortable, well kempt and well developed Orientation / Consciousness: awake, oriented to person, oriented to place and oriented to time Exam Limitations: no limitations HEENT normocephalic, head/scalp atraumatic, hearing grossly normal bilaterally and moist oral mucous membranes HEENT Narrative: Dentition is poor, Mallampati is 2, no thrush Eyes PERRL, EOMs intact bilaterally and conjunctivae normal Eyes Narrative: No scleral icterus Neck no lymphadenopathy and supple Neck Narrative: Trachea midline, trachea midline, no thyroid enlargement noted Resp normal respiratory effort, no retractions, no use of accessory muscles and No clear to auscultation bilaterally Resp Narrative: Slightly diminished diffusely but clear Auscultation: wheezes; Negative for rales or rhonchi Cardio regular rate, regular rhythm, S1 normal heart sound, S2 normal heart sound, no murmurs and no rub GI normal to inspection, nondistended, normoactive bowel sounds, soft to palpation and non-tender Extremity Extremity Narrative: Bilateral upper extremity pitting edema from hands to mid upper biceps region with left-sided pitting edema markedly improved however patient still has significant right-sided pitting edema, no cyanosis or clubbing, no lower extremity edema Skin no rashes or lesions noted, no wounds, skin turgor normal, no jaundice, no petechiae and no mottling Skin Narrative: Ecchymosis on posterior aspects of both arms with more significance on the right upper arm which is still present, patient with increased tenderness on the medial and posterior aspect of the right upper arm as well where there is significant ecchymosis but no induration or hard firm area Neuro oriented x3, CN's II-XII intact bilaterally, moves all extremities and no focal motor deficits Speech: speech normal Psych affect normal Psych Narrative: Appropriate, interacts well, extremely pleasant Weight / BMI Weight Weight: 90.7 kg Body Mass Index (BMI) 25.7 ABG / Lab / Microbiology Data 12/02/23 11:50 12/02/23 07:10 Laboratory: Laboratory Results - last 24 hr 11/28/23 15:15: Sodium 130 L, Potassium 3.7, Chloride 95 L, Carbon Dioxide 25.0, Anion Gap 10, BUN 13, Creatinine 1.93 H, Estim Creat Clear Calc 48.51, Est GFR (MDRD) Af Amer 46 L, Est GFR (MDRD) Non-Af 38 L, BUN/Creatinine Ratio 6.7 L, Glucose 103, Calcium 7.8 L, Magnesium 2.1 11/28/23 19:20: Total Creatine Kinase 99 11/29/23 06:55: WBC 5.9, RBC 3.67 L, Hgb 9.9 L, Hct 31.4 L, MCV 85.6, MCH 27.0, MCHC 31.5 L, RDW Std Deviation 72.4 H, RDW Coeff of Lawson 23.8 H, Plt Count 151, MPV 10.4, Immature Gran % (Auto) 0.300, Neut % (Auto) 60.1, Lymph % (Auto) 28.7, [place] % (Auto) 6.4, Eos % (Auto) 3.7, Baso % (Auto) 0.8, Absolute Neuts (auto) 3.6, Absolute Lymphs (auto) 1.70, Nucleated RBC % 0, Anisocytosis 1+, Sodium 129 L, Potassium 3.0 L, Chloride 95 L, Carbon Dioxide 26.0, Anion Gap 8, BUN 16, Creatinine 1.86 H, Estim Creat Clear Calc 50.33, Est GFR (MDRD) Af Amer 48 L, Est GFR (MDRD) Non-Af 40 L, BUN/Creatinine Ratio 8.6 L, Glucose 92, Calcium 7.9 L, Phosphorus 4.4, Magnesium 2.1, Total Bilirubin 0.90, AST 20, ALT 16, Alkaline Phosphatase 77, Total Protein 5.8 L, Albumin 2.4 L, Globulin 3.4, Albumin/Globulin Ratio 0.7 L 11/29/23 12:00: Hgb 9.5 L Radiography Diagnostic Testing: Radiology Impression Venous Doppler Study 11/28/23 03:23 Interpretation Summary Deep veins of the bilateral upper extremities are patent and compressible segmentally. There is no evidence of deep vein thrombosis. Superficial veins of the bilateral upper extremities are patent and compressible segmentally. There is no evidence of superficial vein thrombosis. Ordering Physician: Abundio Steele Referring Physician: Dharmesh Alonso Performed By: Joan Medina RVT ??? Venous Doppler Study 11/28/23 03:26 Interpretation Summary Deep veins of the bilateral lower extremities are patent and compressible segmentally. There is no evidence of bilateral lower extremity deep vein thrombosis. The bilateral great saphenous veins appear patent and compressible segmentally. Prior left above knee amputation. Ordering Physician: Abundio Steele Referring Physician: Dharmesh Alonso Performed By: Joan Medina RVT Echocardiogram 11/28/23 03:52 Interpretation Summary Normal LV size. Left ventricular systolic function is normal. Mild concentric left ventricular hypertrophy. The left ventricular ejection fraction is 55 %. Stage 1 diastolic dysfunction. Contrast injection was performed. Compared to previous study, the left ventricular systolic function has improved.. Ordering Physician: Abundio Steele Performed By: Dean Jeffers and Student Abdomen/Pelvis CTA 11/29/23 08:30 IMPRESSION: 1. Mural thrombus of the abdominal aorta worse at the level of the renal arteries with approximately 60% stenosis. 2. Occluded left renal artery with atrophic poorly enhancing left kidney. 3. Right common iliac artery stent appears to be occluded. 4. Occluded common femoral arteries reconstituted distally. Electronically Signed: Audie May MD at 10:39 EDT , D/C Instructions Discharge Diet: Low fat / Low cholesterol Discharge Activity: Return to Normal Activity (Is able) Meaningful Use Info Meaningful Use Meaningful Use Diagnoses (Choose all that apply): None applicable Ischemic Stroke Statin Dosing Therapy Reference: STATIN DOSE THERAPY REFERENCE: * Patients > 75 years receive moderate or high dose statin therapy. * Patients 75 years or YOUNGER should receive HIGH intensity statin dose unless contraindicated. You will be required to document reason for non-treatment if statin daily dose does not meet guidelines. HIGH DOSE STATIN THERAPY DAILY Atorvastatin > than or = to 40 mg Rosuvastatin > than or = to 20 mg Amlodipine + Atorvastatin > than or = to 2.5/40 mg Ezetimibe + Simvastatin 10/80 mg Simvastatin 80mg Discharge Plan Admission Admit Date/Time: 11/28/23 11:49 Primary Reason for Your Visit: Shortness of breath/severe upper extremity edema Attending Provider: Jennifer Boles Primary Care Provider: Dharmesh Alonso Consulting Providers: Abundio Steele Instructions Additional Instructions / Restrictions: 1. Hold aspirin for 14 days after discharge and then restart 2. Please call your primary care physician or ask that cardiology order a complete blood count and basic metabolic profile on Monday of next week 3. Please discuss AICD removal (defibrillator) with cardiology WET ROOM WORKER at appointment. And ask that he review your hospital records. 4. If you noticed any blood in your stools or dark tarry stools please come back to the emergency department Discharge Orders/Prescriptions Prescriptions: New Eliquis 5 mg Tablet 10 mg PO BID Qty: 24 0RF Eliquis 5 mg Tablet 5 mg PO BID Qty: 60 5RF Rx Instructions: Start after 10 mg twice daily doses completed carvedilol 3.125 mg Tablet 3.125 mg PO BIDCM Qty: 60 0RF gabapentin 300 mg Capsule 600 mg PO DAILY Qty: 60 0RF tamsulosin 0.4 mg Capsule 0.4 mg PO DAILY Qty: 30 0RF losartan 25 mg Tablet 25 mg PO DAILY Qty: 30 0RF sucralfate 1 gram Tablet 1 g PO 1HR_ACHS Qty: 168 0RF pantoprazole 40 mg Tablet,Delayed Release (Dr/Ec) 40 mg PO BID Qty: 60 1RF Eliquis 5 mg tablet 5 mg PO BID Qty: 69 0RF Rx Instructions: Take 2 tablets twice daily through 12/04/2023 and then start 1 tablet twice daily indefinitely Continued atorvastatin 40 mg tablet 40 mg PO DAILY Qty: 90 0RF Discontinued losartan 25 mg tablet 25 mg PO DAILY Qty: 90 1RF tamsulosin 0.4 mg capsule 0.4 mg PO DAILY Qty: 90 1RF gabapentin 600 mg tablet 900 mg PO QHS 90 Days Qty: 135 1RF carvedilol 12.5 mg tablet 12.5 mg PO BID Qty: 180 1RF aspirin 81 MG tablet,chewable 81 mg PO DAILY@0800 No Action furosemide 40 mg tablet 40 mg PO BID Qty: 180 3RF Referrals / Follow Up: Dharmesh Alonso MD [Primary Care Provider] - See Referral Note (Follow-up here or with a doctor of your choosing in the next 1 week after discharge) Alton Kay MD [Med Staff - Active Staff] - Within 1 Month (call for appt the day of or day following discharge) Koffi Pinto DO [Med Staff - Active Staff] - See Referral Note (Call for appointment to be seen at the doctor's first availability with regards to your clotting disorder) Friend,Pawel, [Med Staff - Active Staff] - Within 3 Months (Call for appt) Mitch Martin WET ROOM WORKER, WET ROOM WORKER-C [Med Staff - Adv Practice Prof] - 12/05/23 10:00 am Disposition Disposition (needs filled in before D/C Order can be placed): Home, Self Care Charges/Coding Visit Charges Inpatient E&M: 48360 Disch Hosp >30min
--- NOTE | 2023-11-29 13:21 | EX.PCM.CON.S ---
Assessment & Plan Assessment/Plan (1) SVC obstruction: PLAN: -CTA images reviewed -has several leads from pacer/AICD with small caliber left innominate and SVC, right innominate appears significantly diminutive -suspect chronic obstruction of leads +/-small thrombus burden that isnt visualized on imaging -patient states he has had discussion in past on whether he needs AICD/pacer anymore given recovery of cardiac function; if so this may be beneficial -CTA A/P reviewed, chronic mural thrombus in abdominal aorta, right common iliac stent chronic occlusion with large collateral reconstitution of common femoral, left external iliac chronic occlusion -recommend resuming anticoagulation, will have him establish as outpatient for follow up surveillance imaging of LE vasculature HPI Consult Data Date of Consult: 11/29/23 HPI Narrative HPI Narrative: JANIE CHIN, is a 58 M who presents with SOB and found to have small PE. He also has had fairly abrupt onset of bilateral upper extremity edema, worse on right and worse more distally in forearms. No prior similar edema, does have pacer/defibrillator after sudden cardiac arrest about 5 years ago. Has history of hypercoagulable state for which he was on [facility] anticoagulation until about 2 months ago when he lost insurance. Has history of prior lower extremity stents for acute ischemia, ultimately resulted in left above knee amputation. No wounds or rest pain right lower extremity. 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 Wears glasses Alcohol use Uses wheelchair Injury of back Shortness of breath on exertion History of echocardiogram History of stress test History of pacemaker Cardiology follow-up encounter Elevated serum GGT level Elevated liver enzymes Tobacco abuse CAD (coronary artery disease) CVA (cerebral vascular accident) Preoperative evaluation to rule out surgical contraindication Neuropathy Defibrillator discharge SVT (supraventricular tachycardia) Paroxysmal atrial fibrillation Acute CVA (cerebrovascular accident) HLD (hyperlipidemia) Atherosclerosis of coronary artery of [place] heart without angina pectoris History of sudden cardiac arrest successfully resuscitated CHF (congestive heart failure) Cardiac arrest Chronic renal failure, stage 2 (mild) Normochromic normocytic anemia Debility History of ischemic left MCA stroke Depression Dilated cardiomyopathy Essential hypertension Methicillin resistant Staphylococcus aureus infection Personal history of osteomyelitis History of pulmonary embolism History of DVT (deep vein thrombosis) alf current use of anticoagulant Chronic osteomyelitis of left tibia Ulceration of below knee amputation stump Vascular disease Gallstones Arthritis Anemia Pain of amputation stump of left lower extremity Osteomyelitis of left lower extremity Ischemic ulcer of right foot Peripheral arterial disease SVT (supraventricular tachycardia) Hypercoagulable state Home Medications ?Medication ?Instructions ?Recorded ?Last Taken ?Type furosemide 40 mg tablet 40 mg PO BID #90 tabs 11/27/23 Unknown Rx apixaban 5 mg tablet (Eliquis) 5 mg PO BID #60 tabs 11/29/23 Unknown Rx apixaban 5 mg tablet (Eliquis) 10 mg (2 x 5 mg) PO BID #24 tabs 11/29/23 Unknown Rx aspirin 81 mg chewable tablet 81 mg PO DAILY@0800 #30 tabs 11/29/23 Unknown Rx atorvastatin 40 mg tablet 40 mg PO DAILY #90 tabs 11/29/23 Unknown Rx carvedilol 3.125 mg tablet 3.125 mg PO BIDCM #60 tabs 11/29/23 Unknown Rx gabapentin 300 mg capsule 600 mg (2 x 300 mg) PO DAILY #60 11/29/23 Unknown Rx caps losartan 25 mg tablet 25 mg PO DAILY #30 tabs 11/29/23 Unknown Rx tamsulosin 0.4 mg capsule 0.4 mg PO DAILY #30 caps 11/29/23 Unknown Rx Allergy/AdvReac Type Severity Reaction Status Date / Time pollen extracts Allergy Intermediate unknown Verified 11/27/23 16:35 Penicillins Allergy Swelling Verified 11/27/23 16:35 adhesive tape AdvReac Rash Verified 11/27/23 16:35 oxycodone (From OxyContin) AdvReac it makes Verified 11/27/23 16:35 me go nuts Family History Mother Diabetes CVA (cerebral vascular accident) Myocardial infarction Father Cancer Prostate Kidney disease Surgical History History of appendectomy History of cardiac catheterization History of implantable cardiac defibrillator (ICD) Hx of leg amputation History of coronary artery stent placement History of carotid endarterectomy History of cardiac radiofrequency ablation (~02/25/13) History of left heart catheterization (LHC) (11/29/19) Status post below knee amputation of left lower extremity History of surgical removal of testicle History of cholecystectomy Social History household members: spouse Smoking Status: Current every day smoker tobacco type: cigarettes alcohol intake: current details: Was previously sober, EtOH abuse. substance use type: does not use caffeine: No what type of physical activity do you participate in: walking frequency: daily additional social history: DOES USE ASPIRIN DOES USE IBUPROFEN ROS Constitutional Constitutional: Denies chills, fever(s), frequent falls, lethargy or weakness Eyes Eyes: Denies blind spots, change in vision or loss of vision ENT HEENT: Denies bleeding gums, hoarseness or sore throat Cardiovascular Cardiovascular: Reports dyspnea and dyspnea on exertion; Denies abdominal pain, bluish discoloration of hand/feet, chest pain with activity, claudication, cold extremities, cyanosis, erythema on extremities, irregular heart rhythm, leg edema, leg ulcers, numbness in extremities or weakness in extremities Respiratory/Chest Respiratory/Chest: Reports shortness of breath at rest and shortness of breath with exertion; Denies cough, excessive phlegm production or wheezing Gastrointestinal Gastrointestinal: Denies anorexia, change in stool character, constipation, diarrhea, melena or rectal bleeding Genitourinary Genitourinary: Denies dysuria or hematuria Musculoskeletal Musculoskeletal: Denies abnormal gait Integumentary Integumentary: Denies erythema, non-healing lesions or wounds Neurologic Neurologic: Denies abnormal speech, focal weakness, headache(s), loss of vision, numbness, paresthesias or sensory deficit Hematologic/Lymphatic Hematologic/Lymphatic: Denies easy bleeding, easy bruising or lymphadenopathy Physical Exam Const alert, oriented x3, no apparent distress and healthy appearing General Appearance: cooperative; Negative for combative or lethargic Orientation / Consciousness: awake Exam Limitations: no limitations HEENT Head and Scalp: normocephalic and atraumatic Eyes EOMs intact bilaterally General Eye: normal appearance of both eyes Neck full ROM, no lymphadenopathy and thyroid normal General: trachea midline; Negative for lymphadenopathy or tenderness Thyroid: thyroid normal Resp normal respiratory effort and no use of accessory muscles Effort and Inspection: Negative for labored, stridor or audible wheezes Cardio regular rate and regular rhythm Peripheral Pulses: brachial pulses present and radial pulses present; Negative for popliteal pulses present, posterior tibial pulses present or dorsalis pedis pulses present Back/Spine Cervical Spine: cervical ROM normal Extremity full ROM and normal capillary refill Extremity Narrative: +2 bilateral upper extremity edema Skin no rashes or lesions noted and no wounds Neuro oriented x3, CN's II-XII intact bilaterally, no focal motor deficits and no sensory deficits noted Psych thought process normal, cooperative, affect normal, speech normal and activity/motor behavior normal Lab / Micro Data 11/29/23 12:00 11/29/23 06:55 Labs: Laboratory Results - last 24 hr 11/28/23 15:15: Sodium 130 L, Potassium 3.7, Chloride 95 L, Carbon Dioxide 25.0, Anion Gap 10, BUN 13, Creatinine 1.93 H, Estim Creat Clear Calc 48.51, Est GFR (MDRD) Af Amer 46 L, Est GFR (MDRD) Non-Af 38 L, BUN/Creatinine Ratio 6.7 L, Glucose 103, Calcium 7.8 L, Magnesium 2.1 11/28/23 19:20: Total Creatine Kinase 99 11/29/23 06:55: WBC 5.9, RBC 3.67 L, Hgb 9.9 L, Hct 31.4 L, MCV 85.6, MCH 27.0, MCHC 31.5 L, RDW Std Deviation 72.4 H, RDW Coeff of [place] 23.8 H, Plt Count 151, MPV 10.4, Immature Gran % (Auto) 0.300, Neut % (Auto) 60.1, Lymph % (Auto) 28.7, [place] % (Auto) 6.4, Eos % (Auto) 3.7, Baso % (Auto) 0.8, Absolute Neuts (auto) 3.6, Absolute Lymphs (auto) 1.70, Nucleated RBC % 0, Anisocytosis 1+, Sodium 129 L, Potassium 3.0 L, Chloride 95 L, Carbon Dioxide 26.0, Anion Gap 8, BUN 16, Creatinine 1.86 H, Estim Creat Clear Calc 50.33, Est GFR (MDRD) Af Amer 48 L, Est GFR (MDRD) Non-Af 40 L, BUN/Creatinine Ratio 8.6 L, Glucose 92, Calcium 7.9 L, Phosphorus 4.4, Magnesium 2.1, Total Bilirubin 0.90, AST 20, ALT 16, Alkaline Phosphatase 77, Total Protein 5.8 L, Albumin 2.4 L, Globulin 3.4, Albumin/Globulin Ratio 0.7 L 11/29/23 12:00: Hgb 9.5 L Imaging Radiology Impression Venous Doppler Study 11/28/23 03:23 Interpretation Summary Deep veins of the bilateral upper extremities are patent and compressible segmentally. There is no evidence of deep vein thrombosis. Superficial veins of the bilateral upper extremities are patent and compressible segmentally. There is no evidence of superficial vein thrombosis. Ordering Physician: Abundio Steele Referring Physician: Dharmesh Alonso Performed By: Joan Medina RVT ??? Venous Doppler Study 11/28/23 03:26 Interpretation Summary Deep veins of the bilateral lower extremities are patent and compressible segmentally. There is no evidence of bilateral lower extremity deep vein thrombosis. The bilateral great saphenous veins appear patent and compressible segmentally. Prior left above knee amputation. Ordering Physician: Abundio Steele Referring Physician: Dharmesh Alonso Performed By: Joan Medina RVT Abdomen/Pelvis CTA 11/29/23 08:30 IMPRESSION: 1. Mural thrombus of the abdominal aorta worse at the level of the renal arteries with approximately 60% stenosis. 2. Occluded left renal artery with atrophic poorly enhancing left kidney. 3. Right common iliac artery stent appears to be occluded. 4. Occluded common femoral arteries reconstituted distally. Electronically Signed: Audie May MD at 10:39 EDT , Charges/Coding Multi Select Codes Visit Charges Visit Charges: 61372 Init Hosp L3
--- NOTE | 2023-11-29 13:24 | PN.HOSP_ITS ---
Reason for Visit Reason for Visit: Diagnoses Other primary thrombophilia (11/28/23) Hypo-osmolality and hyponatremia (11/28/23) Hypokalemia (11/28/23) Single subsegmental pulmonary embolism without acute cor pulmonale (11/28/23) Acute on chronic systolic (congestive) heart failure (11/28/23) Peripheral vascular disease, unspecified (11/28/23) Embolism and thrombosis of unspecified parts of aorta (11/28/23) Acute kidney failure, unspecified (11/28/23) Chronic kidney disease, stage 2 (mild) (11/28/23) Personal history of transient ischemic attack (TIA), and cerebral infarction without residual deficits (11/28/23) Patient's noncompliance with other medical treatment and regimen due to unspecified reason (11/28/23) Subjective Subjective No issues overnight. Edema in arms is really no different. We did discuss the possibility of needing removal of his ICD now that his EF has recovered given his upper extremity swelling and my discussion with vascular surgery thinking that this may be obstructive flow related to this. We also discussed the findings on the CT of the abdomen pelvis with regards to large amount of arterial thrombus. Objective Data Objective Data Vital Signs: Vital Signs Temp Pulse Resp BP Pulse Ox O2 Del Method 97.0 F L 80 18 118/65 96 Room Air 11/29/23 11:57 11/29/23 11:57 11/29/23 11:57 11/29/23 11:57 11/29/23 11:57 11/29/23 11:57 Oxygen Delivery Method Room Air Weight: 90.7 kg Body Mass Index (BMI) 25.7 Intake & Output: Intake and Output for Last 24 Hours 11/27/23 11/28/23 11/29/23 23:59 23:59 23:59 Intake Total 120 / 120 1176.67 / 1176.67 680 / 680 Output Total 1800 / 1800 1250 / 1250 Balance 120 / 120 -623.33 / -623.33 -570 / -570 Lab / Micro Data 11/29/23 12:00 11/29/23 06:55 Labs: Laboratory Results - last 24 hr 11/28/23 15:15: Sodium 130 L, Potassium 3.7, Chloride 95 L, Carbon Dioxide 25.0, Anion Gap 10, BUN 13, Creatinine 1.93 H, Estim Creat Clear Calc 48.51, Est GFR (MDRD) Af Amer 46 L, Est GFR (MDRD) Non-Af 38 L, BUN/Creatinine Ratio 6.7 L, Glucose 103, Calcium 7.8 L, Magnesium 2.1 11/28/23 19:20: Total Creatine Kinase 99 11/29/23 06:55: WBC 5.9, RBC 3.67 L, Hgb 9.9 L, Hct 31.4 L, MCV 85.6, MCH 27.0, MCHC 31.5 L, RDW Std Deviation 72.4 H, RDW Coeff of [place] 23.8 H, Plt Count 151, MPV 10.4, Immature Gran % (Auto) 0.300, Neut % (Auto) 60.1, Lymph % (Auto) 28.7, [place] % (Auto) 6.4, Eos % (Auto) 3.7, Baso % (Auto) 0.8, Absolute Neuts (auto) 3.6, Absolute Lymphs (auto) 1.70, Nucleated RBC % 0, Anisocytosis 1+, Sodium 129 L, Potassium 3.0 L, Chloride 95 L, Carbon Dioxide 26.0, Anion Gap 8, BUN 16, C reatinine 1.86 H, Estim Creat Clear Calc 50.33, Est GFR (MDRD) Af Amer 48 L, Est GFR (MDRD) Non-Af 40 L, BUN/Creatinine Ratio 8.6 L, Glucose 92, Calcium 7.9 L, Phosphorus 4.4, Magnesium 2.1, Total Bilirubin 0.90, AST 20, ALT 16, Alkaline Phosphatase 77, Total Protein 5.8 L, Albumin 2.4 L, Globulin 3.4, A lbumin/Globulin Ratio 0.7 L 11/29/23 12:00: Hgb 9.5 L Radiography Diagnostic Testing: Radiology Impression Venous Doppler Study 11/28/23 03:23 Interpretation Summary Deep veins of the bilateral upper extremities are patent and compressible segmentally. There is no evidence of deep vein thrombosis. Superficial veins of the bilateral upper extremities are patent and compressible segmentally. There is no evidence of superficial vein thrombosis. Ordering Physician: Abundio Steele Referring Physician: Dharmesh Alonso Performed By: Joan Medina RVT ??? Venous Doppler Study 11/28/23 03:26 Interpretation Summary Deep veins of the bilateral lower extremities are patent and compressible segmentally. There is no evidence of bilateral lower extremity deep vein thrombosis. The bilateral great saphenous veins appear patent and compressible segmentally. Prior left above knee amputation. Ordering Physician: Abundio Steele Referring Physician: Dharmesh Alonso Performed By: Joan Medina RVT Abdomen/Pelvis CTA 11/29/23 08:30 IMPRESSION: 1. Mural thrombus of the abdominal aorta worse at the level of the renal arteries with approximately 60% stenosis. 2. Occluded left renal artery with atrophic poorly enhancing left kidney. 3. Right common iliac artery stent appears to be occluded. 4. Occluded common femoral arteries reconstituted distally. Electronically Signed: Audie May MD at 10:39 EDT , Physical Exam Const alert, oriented x3, no apparent distress, average body habitus and well nourished; Negative for healthy appearing Constitutional Narrative: Very pleasant, upper middle-aged, white male, sitting up in bed, appears comfortable, does appear older than stated age, nontoxic-appearing, watching television General Appearance: cooperative HEENT normocephalic, head/scalp atraumatic, hearing grossly normal bilaterally and moist oral mucous membranes HEENT Narrative: Mallampati 2, no thrush Eyes PERRL, EOMs intact bilaterally and conjunctivae normal Eyes Narrative: No scleral icterus Neck no lymphadenopathy and supple Neck Narrative: Trachea midline, trachea midline, no thyroid enlargement noted Resp normal respiratory effort, no retractions, no use of accessory muscles and No clear to auscultation bilaterally Resp Narrative: Slightly diminished diffusely but clear Auscultation: wheezes; Negative for rales or rhonchi Cardio regular rate, regular rhythm, S1 normal heart sound, S2 normal heart sound, no murmurs and no rub GI normal to inspection, nondistended, normoactive bowel sounds, soft to palpation and non-tender Extremity Extremity Narrative: Bilateral upper extremity pitting edema from hands to mid upper biceps region bilaterally, no cyanosis or clubbing, no lower extremity edema Skin no rashes or lesions noted, no wounds, skin turgor normal, no jaundice, no petechiae and no mottling Skin Narrative: Neuro oriented x3, moves all extremities and no focal motor deficits Speech: speech normal Psych affect normal Psych Narrative: Appropriate, interacts well, pleasant Assessment & Plan Assessment/Plan (1) Hypokalemia: (2) Hyponatremia: (3) Medical non-compliance: (4) Pulmonary embolism: QUALIFIERS: Pulmonary embolism type: single subsegmental (without acute cor pulmonale) Qualified Code(s): I26.93 - Single subsegmental pulmonary embolism without acute cor pulmonale (5) Acute on chronic heart failure with reduced ejection fraction (HFrEF, <= 40%): (6) Aortic thrombus: PLAN: Plan Shortness of breath and upper extremity edema secondary to acute on chronic heart failure with reduced ejection fraction/acute pulmonary embolus -Patient with known hypercoagulable state at baseline but not on medication due to financial issues -Had previously been on Coumadin but had issues with INR control so therefore transition to Eliquis but has been unaffordable as of late -Consult social work/case management for assistance with discharge planning with regards to finances for medications -Continue Eliquis 10 mg p.o. twice daily through 12/06/2023 and then transition to 5 mg p.o. twice daily indefinitely -Due to cost may need to transition to heparin drip and Coumadin -Would avoid Lovenox at this time due to his renal dysfunction -Check daily weights -Accurate I's and O's -Sodium and fluid restricted diet -TSH is within normal limits -Echocardiogram on 11/27/2023 showed an EF of 55% with mild concentric LVH and no regional wall motion abnormalities along with stage I diastolic dysfunction -Previous echocardiogram done at outside facility in 2019 showed an EF of 35% -Discontinue Lasix -Bilateral upper and lower extremity duplex were unremarkable -I asked vascular surgery to look at the CTA of his chest and they feel that this is 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 along with clot -Recommended ongoing anticoagulation and consideration for removal of ICD by cardiology -Will refer to cardiology as an outpatient Aortic thrombus/common femoral thrombus/renal artery thrombus -Anticoagulation as above -As noted may need to transition to heparin and Coumadin depending on cost analysis by case management -Patient has what appears to be chronic clot in his chest and abdominal aorta as well as branches of the aorta -Vascular surgery has evaluated the no need for any acute intervention -Outpatient follow-up with vascular surgery Acute on chronic anemia -Hemoglobin at baseline appears to be between 11 and 12 -A.m. hemoglobin was 9.9 with no signs of acute blood loss and patient denying any blood in his stool or elsewhere -Repeat hemoglobin 9.5 -Iron studies and reticulocyte count are pending -If consistent with iron deficiency and hemoglobin continues to trend down will consult GI Hypokalemia -Down again today will give 40 mill equivalents p.o. potassium and recheck in a.m. Hyponatremia -Acute he may be related to worsening volume overload status -Back up to 129 -Hold Lasix and IV fluids Hyperbilirubinemia -Resolved JUAN on CKD stage IIIa -Baseline serum creatinine has been between 1.25 and 1.4 -1.86 today--> his new baseline may be above his previous -Patient does appear to have arterial clot in the renal artery so this may be affecting his renal function -Baseline GFR appears to be between 55 and 60 -Will hold IV fluids and Lasix for now -repeat BMP in a.m. -Avoid nephrotoxins -Continue losartan but monitor closely History of paroxysmal atrial fibrillation -Continue carvedilol but decrease from 12.5 p.o. twice daily to 3.125 due to low blood pressures -May need to consider up titration depending on blood pressures and heart rates -[place] for now and possibly at discharge depending on cost for patient History of left MCA stroke x 2 -Patient with memory issues negatively impacting his ability to remember taking his medications -No significant physical deficits History of dilated cardiomyopathy/SVT/chronic LBBB/history of cardiac arrest -All remote -Has PPM/AICD -Treatment as above CAD/essential hypertension/hyperlipidemia -Patient with previous PCI -Continue home aspirin -Continue statin -Lipid profile is pending -Continue home losartan -Continue home carvedilol -As needed hydralazine -Monitor blood pressure and heart rate may need up titration of beta-[place] or losartan Peripheral vascular disease -History of multiple stents in both legs next-continue home aspirin History of left AKA due to chronic osteomyelitis -PT/OT consultation -Chronic/stable JOSE -Patient noncompliant at baseline and has been intolerant to CPAP previously Tobacco abuse -recommend cessation -Nicotine patch available Medication noncompliance - due to cost -Social work/case management consultation to assist with discharge planning DVT prophylaxis -Eliquis as above CODE STATUS -DNR CCA with no intubation Charges/Coding Visit Charges Inpatient E&M: 25990 Subs Hosp L3
[2023-11-29 13:28] LABS: Platelet Count 137 K/mm3 (150-450); RET-HE 31.9 pg (30-35); Reticulocyte Count 3.15 % (0.5-1.5)
[2023-11-29 13:39] LABS: Ferritin 31 ng/mL (26-388); Iron 22 ug/dL (65-175); Iron Binding Capacity,Total 338 ug/dL (250-450); PERCENT IRON SATURATION 6.5 % (15.0-55.0)
[2023-11-29] MEDS: Carvedilol 3.125 MG TABLET PO (16:52)
[2023-11-29] MEDS: MELATONIN 3 MG TABLET PO (21:27)
[2023-11-29] MEDS: Temazepam 15 MG Capsule PO (21:27)
[2023-11-29] MEDS: Pantoprazole Sodium 40 MG Tablet PO (21:29)
[2023-11-29] MEDS: Atorvastatin Calcium 40 MG Tablet PO (21:29)
[2023-11-30 03:20] VITALS: BP 106/62; PULSE 87; RESP 16; TEMP 36.6; O2SAT 99
[2023-11-30] MEDS: Acetaminophen 325 MG Tablet 650 MG PO (03:28)
[2023-11-30 03:53] VITALS: BMI 25.5
[2023-11-30 07:09] LABS: Hematocrit 29.1 % (40-54); Hemoglobin 9.1 g/dL (13.0-16.5); Mean Corp Hgb Conc 31.3 g/dL (32-36); Mean Corpuscular Hgb 27.2 pg (27.0-32.0); Mean Corpuscular Volume 86.9 fL (80-94); Mean Platelet Vol. 10.2 fl (6.2-12.0); POSITIVE MORPHOLOGY YES; Platelet Count 161 K/mm3 (150-450); RBC Distribution Width SD 74.4 fl (35.1-43.9); Red Blood Count 3.35 M/mm3 (4.6-6.2); White Blood Count 4.8 K/mm3 (4.4-11.0)
[2023-11-30 07:54] LABS: Scan Indicated on CBC? Y/N YES- FLAGS NOTED
[2023-11-30 07:57] LABS: Anion Gap 6 (5-15); BUN 16 mg/dL (7-18); BUN/Creat Ratio 10.9 RATIO (10-20); Calcium,Total 7.7 mg/dL (8.5-10.1); Chloride 97 mmol/L (98-107); Creatinine, Serum 1.47 mg/dL (0.70-1.30); EST Glomerular Filtration Rate 52 mL/min (>60); Est Glom Filt Rate - Afr Amer 63 mL/min (>60); Estimated Creatinine Clearance 63.68 ml/min; Glucose 97 mg/dL (74-106); Potassium 3.8 mmol/L (3.5-5.1); Sodium Level 129 mmol/L (136-145)
[2023-11-30] MEDS: Carvedilol 3.125 MG TABLET PO ×2 (09:21→16:56)
[2023-11-30] MEDS: Losartan Potassium 25 MG Tablet PO (09:21)
[2023-11-30] MEDS: Pantoprazole Sodium 40 MG Tablet PO (09:21)
[2023-11-30] MEDS: APIXABAN 5 MG TABLET 10 MG PO ×2 (09:23→21:35)
[2023-11-30] MEDS: Tamsulosin HCl 0.4 MG Capsule PO (09:24)
[2023-11-30] MEDS: Gabapentin 300 MG Capsule 900 MG PO (10:10)
[2023-11-30] MEDS: Sodium Ferric Gluconat 250 MG in 0.9% Normal Saline 250 ML 135 MG IV (10:10)
[2023-11-30] MEDS: 0.9% Saline Lock 10 ML Syringe IV (10:14)
[2023-11-30 11:00] VITALS: BP 108/64; PULSE 77; RESP 18; TEMP 36.4; O2SAT 100
--- NOTE | 2023-11-30 12:33 | PN.HOSP_ITS ---
Reason for Visit Reason for Visit: Shortness of breath Subjective Subjective Patient still reports subjective shortness of breath however sats are 100% on room air. Arms are still swollen. We did discuss unfortunately his hemoglobin has dropped since admission and his iron studies are more consistent with iron deficiency. Given the fact he absolutely must be on anticoagulation we will continue anticoagulation and hold his aspirin but GI will see him and planning for EGD tomorrow. This was discussed with patient. He does admit to previous peptic ulcer disease. He had not been taking anything at home for GI protection when he was on medications. Objective Data Objective Data Vital Signs: Vital Signs Temp Pulse Resp BP Pulse Ox O2 Del Method 97.5 F L 77 18 108/64 100 Room Air 11/30/23 11:00 11/30/23 11:00 11/30/23 11:00 11/30/23 11:00 11/30/23 11:00 11/30/23 11:00 Oxygen Delivery Method Room Air Weight: 90.2 kg Body Mass Index (BMI) 25.5 Intake & Output: Intake and Output for Last 24 Hours 11/28/23 11/29/23 11/30/23 23:59 23:59 23:59 Intake Total 1176.67 / 1176.67 1140 / 1460 1120 / 1120 Output Total 1800 / 1800 1600 / 1780 680 / 680 Balance -623.33 / -623.33 -460 / -320 440 / 440 Lab / Micro Data 11/30/23 06:26 11/30/23 06:26 Labs: Laboratory Results - last 24 hr 11/29/23 06:55: Iron 22 L, TIBC 338, Iron Saturation 6.5 L, Ferritin 31 11/29/23 12:00: Retic Count 3.15 H, Immature Retic Fraction 27.30 H, Retic Hgb Equivalent 31.9 11/30/23 06:26: WBC 4.8, RBC 3.35 L, Hgb 9.1 L, Hct 29.1 L, MCV 86.9, MCH 27.2, MCHC 31.3 L, RDW Std Deviation 74.4 H, RDW Coeff of Lawson 24.0 H, Plt Count 161, MPV 10.2, Sodium 129 L, Potassium 3.8, Chloride 97 L, Carbon Dioxide 26.0, Anion Gap 6, BUN 16, Creatinine 1.47 H, Estim Creat Clear Calc 63.68, Est GFR (MDRD) Af Amer 63, Est GFR (MDRD) Non-Af 52 L, BUN/Creatinine Ratio 10.9, Glucose 97, C alcium 7.7 L Physical Exam Const alert, oriented x3, no apparent distress, average body habitus and well nourished; Negative for healthy appearing Constitutional Narrative: Very pleasant, upper middle-aged, white male, sitting up in bed, appears comfortable, does appear older than stated age, nontoxic-appearing, talking on the phone upon my arrival General Appearance: cooperative HEENT normocephalic, head/scalp atraumatic, hearing grossly normal bilaterally and moist oral mucous membranes HEENT Narrative: Mallampati 3, no thrush Resp normal respiratory effort, no retractions, no use of accessory muscles and No clear to auscultation bilaterally Resp Narrative: Slightly diminished diffusely but clear Auscultation: wheezes; Negative for rales or rhonchi Cardio regular rate, regular rhythm, S1 normal heart sound, S2 normal heart sound, no murmurs and no rub GI normal to inspection, nondistended, normoactive bowel sounds, soft to palpation and non-tender GI Narrative: No signs of tenderness in the epigastric region Extremity Extremity Narrative: Bilateral upper extremity pitting edema from hands to mid upper biceps region bilaterally that is unchanged, no cyanosis or clubbing, no lower extremity edema Skin Skin Narrative: Scattered upper extremity ecchymotic changes noted on posterior aspects of bilateral arms left greater than right Neuro oriented x3, moves all extremities and no focal motor deficits Speech: speech normal Psych affect normal Psych Narrative: Appropriate, interacts well, extremely pleasant Assessment & Plan Assessment/Plan (1) Hypokalemia: (2) Hyponatremia: (3) Medical non-compliance: (4) Pulmonary embolism: QUALIFIERS: Pulmonary embolism type: single subsegmental (without acute cor pulmonale) Qualified Code(s): I26.93 - Single subsegmental pulmonary embolism without acute cor pulmonale (5) Acute on chronic heart failure with reduced ejection fraction (HFrEF, <= 40%): (6) Aortic thrombus: PLAN: Plan Shortness of breath and upper extremity edema secondary to acute on chronic heart failure with reduced ejection fraction/acute pulmonary embolus -Patient with known hypercoagulable state at baseline but not on medication due to financial issues -Had previously been on Coumadin but had issues with INR control so therefore transition to Eliquis but has been unaffordable for the last 2 months -Case management has assisted us in getting Eliquis for the next month and started financial assistance to follow -Continue Eliquis 10 mg p.o. twice daily through 12/06/2023 and then transition to 5 mg p.o. 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 along with clot -Recommended ongoing anticoagulation and consideration for removal of ICD by cardiology -Will refer to cardiology as an outpatient--appointment has been made for December 05> Aortic thrombus/common femoral thrombus/renal artery thrombus -Anticoagulation as above -Patient has what appears to be chronic clot in his chest and abdominal aorta as well as branches of the aorta -Vascular surgery has evaluated the no need for any acute intervention -Outpatient follow-up with vascular surgery Acute on chronic anemia -Hemoglobin at baseline appears to be between 11 and 12 -Hemoglobin on a.m. of 11/29/2023 was noted to be 9.9 down from 11.6 the day prior--> repeat confirmed drop and was 9.5--> 9.1 this morning -Hold aspirin -Patient with elevated reticulocyte count at 3.15 -Iron studies are consistent with iron deficiency anemia showing a high normal TIBC and a low iron sat and total iron. Ferritin was normal however but low normal -Bilirubin is normal so doubt hemolysis -Start Protonix IV push twice daily -Consult GI--> patient did admit to previous peptic ulcer disease found on EGD -Unable to discontinue anticoagulation due to extensive thrombus and PE on presentation--discussed with Dr. Tafoya> Remote history of PUD -Protonix 40 mg p.o. twice daily added yesterday with anemia and will transition IV twice daily today -EGD tomorrow Hypokalemia -Resolved with current potassium 3.8 Hyponatremia -Stable at 129 Hyperbilirubinemia -Resolved JUAN on CKD stage IIIa -JUAN component has resolved -Baseline serum creatinine has been between 1.25 and 1.4 - serum creatinine down to 1.47 -Patient does appear to have arterial clot in the renal artery so this may be affecting his renal function -Baseline GFR appears to be between 55 and 60 -Continue to hold diuretics as patient shows no signs of volume overload -repeat BMP in a.m. -Avoid nephrotoxins History of paroxysmal atrial fibrillation -Continue carvedilol 3.125 -Heart rates and blood pressure control are good on this dosing -Continue Eliquis History of left MCA stroke x 2 -Patient with memory issues negatively impacting his ability to remember taking his medications -No significant physical deficits History of dilated cardiomyopathy/SVT/chronic LBBB/history of cardiac arrest -All remote -Has PPM/AICD--> with concern for occlusion removal has been recommended by vascular surgery and patient will need follow-up as an outpatient with cardiology -Appointment has been made -Treatment as above CAD/essential hypertension/hyperlipidemia -Patient with previous PCI -Hold home aspirin -Continue statin -Continue home losartan -Continue at lower dose -As needed hydralazine -Blood pressure and heart rate are well-controlled currently Peripheral vascular disease -History of multiple stents in both legs -home aspirin on hold due to concern for bleeding with drop in hemoglobin 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
[2023-11-30 17:11] VITALS: BP 148/84; PULSE 73; RESP 16; TEMP 36.7; O2SAT 100
[2023-11-30] MEDS: traMADol 50 MG Tablet PO (17:30)
[2023-11-30] MEDS: Atorvastatin Calcium 40 MG Tablet PO (21:35)
[2023-11-30] MEDS: Temazepam 15 MG Capsule PO (21:35)
[2023-11-30] MEDS: Pantoprazole Sodium 40 MG in 0.9% Normal Saline (100mL MB+) 100 ML 330 MG IV (21:35)
[2023-11-30] MEDS: MELATONIN 3 MG TABLET PO (21:35)
[2023-11-30 23:00] VITALS: BP 116/68; PULSE 75; RESP 16; TEMP 36.1; O2SAT 99
[2023-12-01] VITALS (9 sets, daily range): BP systolic 98–139; BP diastolic 58–87; PULSE 75–86; RESP 14–18; TEMP 35.6–36.6; O2SAT 96–100; BMI 25.5
[2023-12-01 07:01] LABS: Mean Corp Hgb Conc 31.3 g/dL (32-36); Mean Corpuscular Hgb 27.9 pg (27.0-32.0); Mean Corpuscular Volume 89.1 fL (80-94); Mean Platelet Vol. 9.9 fl (6.2-12.0); POSITIVE MORPHOLOGY YES; Platelet Count 171 K/mm3 (150-450); RBC Distribution Width CV 23.7 % (11.6-14.6); Red Blood Count 3.59 M/mm3 (4.6-6.2); White Blood Count 5.5 K/mm3 (4.4-11.0)
[2023-12-01 07:18] LABS: Scan Indicated on CBC? Y/N YES- FLAGS NOTED
[2023-12-01 07:23] LABS: Anion Gap 6 (5-15); BUN 11 mg/dL (7-18); BUN/Creat Ratio 8.5 RATIO (10-20); Calcium,Total 8.1 mg/dL (8.5-10.1); Chloride 101 mmol/L (98-107); Creatinine, Serum 1.29 mg/dL (0.70-1.30); EST Glomerular Filtration Rate 61 mL/min (>60); Est Glom Filt Rate - Afr Amer 74 mL/min (>60); Estimated Creatinine Clearance 72.57 ml/min; Glucose 83 mg/dL (74-106); Potassium 3.7 mmol/L (3.5-5.1); Sodium Level 131 mmol/L (136-145)
[2023-12-01] MEDS: Acetaminophen 325 MG Tablet 650 MG PO (08:59)
[2023-12-01] MEDS: Sodium Ferric Gluconat 250 MG in 0.9% Normal Saline 250 ML 135 MG IV (10:00)
--- NOTE | 2023-12-01 11:45 | NURSING ---
Patient off unit for EGD
--- NOTE | 2023-12-01 12:30 | EGD_PTH ---
PATIENT: JANIE CHIN LOC: [facility] U#:[id number] AGE/SX: 58/M ROOM: [facility] RE11/28/[address]: Dr. Jennifer Boles DO : 1965 BED: 1 DIS: 12/02/2023 SPEC #: [id number] RECD: 12/01/23 16:05 STATUS: DAVID ECHOLS #: [id number] NICK: 12/01/23 12:[address]: Ra Michelethsaan DEPT: SURGICAL PATHOLOGY RECD BY: Tyler Duenas ENTERED: 12/04/23 07:24 SP TYPE: EGD BIOPSY OT DR: DO Dr. Dharmesh Alba MD Dr. Kathryn Lee, DO Tissues: Esophagus, NOS Procedures: Special Stain Group I Surgery Specimen Level IV GMS Stain (control) HEADER OPERATION: EGD with biopsy and electrohemostasis PRE-OP DIAGNOSIS: Anemia TISSUE SUBMITTED: Random esophagus biopsy MICROSCOPIC DIAGNOSIS Esophagus, random biopsy: Fragments of squamous mucosa with acute and chronic inflammation. See comment. EMILY/ 12/05/2023 COMMENT Special stain for fungi is negative for organisms; matched control is appropriate. Increased number of eosinophils consistent with eosinophilic esophagitis are not seen. Correlation with clinical, endoscopic findings and appropriate follow up are necessary. MICROSCOPIC DESCRIPTION Slides are reviewed. GROSS DESCRIPTION Received in fixative is one container labeled with the patient's name and designated Random esophagus. The specimen consists of multiple irregular fragments of light rush soft tissue that in aggregate measure 1.5 x 0.3 x 0.1 cm. The specimen is totally submitted in one cassette. EMILY/ 12/04/2023 TC:3 CPT:38155,73428
--- NOTE | 2023-12-01 12:36 | EX.PCM.CON.G ---
HPI Consult Data Date of Consult: 12/01/23 HPI Narrative Reason for Consultation: Anemia HPI Narrative: JANIE CHIN, is a 58 M with a past medical history of essential hypertension, hyperlipidemia, history of tobacco abuse, history of hypercoagulable state; +Lupus anticoagulant, +Cardiolipin Anti-b IgM and increased Homocysteine level with patient supposed to be on chronic Coumadin, PAF. He has not taking his medications for months, CAD; s/p stent (2019), history of Left MCA CVA x 2 (~2019), PVD; with history of multiple stents in both legs and history of Left AKA, history of Chronic Osteomyelitis of Left stump, history of MRSA, history of dilated cardiomyopathy; with LVEF ~27% (2018), history of CHF, history of SVT, history of LBBB, history of cardiac arrest; with successful resuscitation with subsequent PPM/AICD, He presented to [facility] ER complaining of LE edema and SOB. Mr. Chin reports his symptoms began approximately 2 months prior to admission with bilateral upper extremity swelling right greater than left with additional swelling in his abdomen and progressively worsening shortness of breath for which patient thought he was developing heart failure. He goes on to state that he has not been able to take his medications for the past 2 months due to lack of money to pay. He further elaborated that he has been on Coumadin in the past and his levels have fluctuated wildly causing him to be switched to Eliquis which then had to be stopped due to his lack of finances. In the ER he was noted to have a highly elevated D-dimer of 3.08 present on admission followed by a CTA of the chest positive for a single ~5 mm pulmonary embolism in a segmental branch of the the Left descending pulmonary artery along with incidentally noted findings of COPD and no acute findings of CHF with suspicion for DVT in upper extremities. I was asked to see him due to worsening anemia in the setting of the need for anticoagulation. 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 Wears glasses Alcohol use Uses wheelchair Injury of back Shortness of breath on exertion History of echocardiogram History of stress test History of pacemaker Cardiology follow-up encounter Elevated serum GGT level Elevated liver enzymes Tobacco abuse CAD (coronary artery disease) CVA (cerebral vascular accident) Preoperative evaluation to rule out surgical contraindication Neuropathy Defibrillator discharge SVT (supraventricular tachycardia) Paroxysmal atrial fibrillation Acute CVA (cerebrovascular accident) HLD (hyperlipidemia) Atherosclerosis of coronary artery of [place] heart without angina pectoris History of sudden cardiac arrest successfully resuscitated CHF (congestive heart failure) Cardiac arrest Chronic renal failure, stage 2 (mild) Normochromic normocytic anemia Debility History of ischemic left MCA stroke Depression Dilated cardiomyopathy Essential hypertension Methicillin resistant Staphylococcus aureus infection Personal history of osteomyelitis History of pulmonary embolism History of DVT (deep vein thrombosis) care home current use of anticoagulant Chronic osteomyelitis of left tibia Ulceration of below knee amputation stump Vascular disease Gallstones Arthritis Anemia Pain of amputation stump of left lower extremity Osteomyelitis of left lower extremity Ischemic ulcer of right foot Peripheral arterial disease SVT (supraventricular tachycardia) Hypercoagulable state Home Medications ?Medication ?Instructions ?Recorded ?Last Taken ?Type apixaban 5 mg (74 tabs) tablets in See Rx Instructions PO .COMPLEX 11/29/23 Unknown Rx a dose pack (Eliquis DVT-PE Treat #74 tabs 30D Start) apixaban 5 mg tablet (Eliquis) 5 mg PO BID #60 tabs 11/29/23 Unknown Rx apixaban 5 mg tablet (Eliquis) 10 mg (2 x 5 mg) PO BID #24 tabs 11/29/23 Unknown Rx aspirin 81 mg chewable tablet 81 mg PO DAILY@0800 #30 tabs 11/29/23 Unknown Rx atorvastatin 40 mg tablet 40 mg PO DAILY #90 tabs 11/29/23 Unknown Rx carvedilol 3.125 mg tablet 3.125 mg PO BIDCM #60 tabs 11/29/23 Unknown Rx furosemide 40 mg tablet 40 mg PO BID #180 tabs 11/29/23 Unknown Rx gabapentin 300 mg capsule 600 mg (2 x 300 mg) PO DAILY #60 11/29/23 Unknown Rx caps losartan 25 mg tablet 25 mg PO DAILY #30 tabs 11/29/23 Unknown Rx tamsulosin 0.4 mg capsule 0.4 mg PO DAILY #30 caps 11/29/23 Unknown Rx Allergy/AdvReac Type Severity Reaction Status Date / Time pollen extracts Allergy Intermediate unknown Verified 11/27/23 16:35 Penicillins Allergy Swelling Verified 11/27/23 16:35 adhesive tape AdvReac Rash Verified 11/27/23 16:35 oxycodone (From OxyContin) AdvReac it makes Verified 11/27/23 16:35 me go nuts Family History Mother Diabetes CVA (cerebral vascular accident) Myocardial infarction Father Cancer Prostate Kidney disease Surgical History History of appendectomy History of cardiac catheterization History of implantable cardiac defibrillator (ICD) Hx of leg amputation History of coronary artery stent placement History of carotid endarterectomy History of cardiac radiofrequency ablation (~02/25/13) History of left heart catheterization (LHC) (11/29/19) Status post below knee amputation of left lower extremity History of surgical removal of testicle History of cholecystectomy Social History household members: spouse Smoking Status: Current every day smoker tobacco type: cigarettes alcohol intake: current details: Was previously sober, EtOH abuse. substance use type: does not use caffeine: No what type of physical activity do you participate in: walking frequency: daily additional social history: DOES USE ASPIRIN DOES USE IBUPROFEN ROS Constitutional Constitutional: Denies chills, fever(s), frequent falls, lethargy or weakness Eyes Eyes: Denies blind spots, change in vision or loss of vision ENT HEENT: Denies bleeding gums, hoarseness or sore throat Cardiovascular Cardiovascular: Reports dyspnea and dyspnea on exertion; Denies abdominal pain, bluish discoloration of hand/feet, chest pain with activity, claudication, cold extremities, cyanosis, erythema on extremities, irregular heart rhythm, leg edema, leg ulcers, numbness in extremities or weakness in extremities Respiratory/Chest Respiratory/Chest: Reports shortness of breath at rest and shortness of breath with exertion; Denies cough, excessive phlegm production or wheezing Gastrointestinal Gastrointestinal: Denies anorexia, change in stool character, constipation, diarrhea, melena or rectal bleeding Genitourinary Genitourinary: Denies dysuria or hematuria Musculoskeletal Musculoskeletal: Denies abnormal gait Integumentary Integumentary: Denies erythema, non-healing lesions or wounds Neurologic Neurologic: Denies abnormal speech, focal weakness, headache(s), loss of vision, numbness, paresthesias or sensory deficit Hematologic/Lymphatic Hematologic/Lymphatic: Denies easy bleeding, easy bruising or lymphadenopathy Physical Exam Const alert, oriented x3 and no apparent distress General Appearance: cooperative HEENT normocephalic, head/scalp atraumatic, hearing grossly normal bilaterally and moist oral mucous membranes Eyes PERRL and EOMs intact bilaterally Neck no lymphadenopathy and supple Resp normal respiratory effort, no retractions, no use of accessory muscles and clear to auscultation bilaterally Cardio regular rate and regular rhythm GI normal to inspection, nondistended, normoactive bowel sounds, soft to palpation, non-tender and non-distended Extremity Extremity Narrative: Patient has severe nonpitting edema of the Right >> Left upper extremity. Left AKA noted. Skin Skin Narrative: Patient has no evidence of jaundice or rash. Neuro oriented x3, CN's II-XII intact bilaterally, moves all extremities and no focal motor deficits Sensorium / Orientation: awake, alert, oriented to person, oriented to place and oriented to time Speech: speech normal Psych affect normal Lab / Micro Data 12/01/23 06:13 12/01/23 06:13 Labs: Laboratory Results - last 24 hr 11/28/23 19:20: Aldolase 16.0 H 12/01/23 06:13: WBC 5.5, RBC 3.59 L, Hgb 10.0 L, Hct 32.0 L, MCV 89.1, MCH 27.9, MCHC 31.3 L, RDW Std Deviation 77.0 H, RDW Coeff of Lawson 23.7 H, Plt Count 171, MPV 9.9, Differential Comment COMMENT, Sodium 131 L, Potassium 3.7, Chloride 101, Carbon Dioxide 24.0, Anion Gap 6, BUN 11, Creatinine 1.29, Estim Creat Clear Calc 72.57, Est GFR (MDRD) Af Amer 74, Est GFR (MDRD) Non-Af 61, BUN/Creatinine Ratio 8.5 L, Glucose 83, Calcium 8.1 L Assessment & Plan Assessment/Plan (1) Pulmonary embolism: QUALIFIERS: Pulmonary embolism type: single subsegmental (without acute cor pulmonale) Qualified Code(s): I26.93 - Single subsegmental pulmonary embolism without acute cor pulmonale (2) Medical non-compliance: (3) Hypercoagulable state: (4) Acute kidney injury: (5) Chronic renal failure, stage 2 (mild): (6) Hyponatremia: (7) Hypokalemia: (8) History of ischemic left MCA stroke: (9) Peripheral arterial disease: PLAN: Plan 50-year-old gentleman with multiple comorbidities including history of hypercoagulable state who currently has small PE but also discovered to have S VC thrombus, aortic thrombus and acute on chronic heart failure. He was discovered to have worsening anemia thought to be secondary to blood loss anemia. Differential diagnosis does include angiodysplasia, peptic ulcer disease, gastric antral vascular ectasia, Burak's erosions. He should undergo an upper endoscopy to evaluate upper GI tract. He was explained alternatives, risk, benefits include not withstanding bleeding, infection, sepsis, perforation, need for emergent urgent . He will have an ASA of 3. Charges/Coding Visit Charges Inpatient E&M: 47154 Init Hosp L3
--- NOTE | 2023-12-01 12:38 | PCM.PRE.AN2 ---
ASA Classification* ASA Classification ASA Classification: 3 Assessment & Plan Anesthesia* Anesthesia Assessment Anesthesia Assessment: Discussed sedation and/or anesthesia options, risks, benefits, and alternatives with patient/parents/legal guardian/POA. Questions invited. The patient/parents/legal guardian/POA seems to understand and agrees to proceed with anesthesia plan. Reviewed the physical assessment, medical history, allergy history and patient home medications list prior to surgery/procedure/anesthetic and documented any changes. Performed airway and anesthesia risk assessments. Anesthesia Type Anesthesia Type: MAC History Source History Obtained from:: Patient and Chart Anesthesia Focused Assessment* Temperature: 96.0 F Pulse Rate: 79 Blood Pressure: 138/87 Respiratory Rate: 18 Pulse Ox: 100 Oxygen Delivery Method: Room Air Airway Assessment Mouth opens: 2 cm Mallampati Score: IV Teeth Condition: Missing (Has 4-5 missing teeth.) Neck Range of motion (ROM): Full ROM Pertinent Findings ECHO Pertinent Findings:: November 28, 2023. Ejection fraction is 55%. Valves are normal. Focused Labs Anesthesia Preop lab: CBC WBC 5.5 K/mm3 (4.4-11.0) 12/01/23 06:13 RBC 3.59 M/mm3 (4.6-6.2) L 12/01/23 06:13 Hgb 10.0 g/dL (13.0-16.5) L 12/01/23 06:13 Hct 32.0 % (40-54) L 12/01/23 06:13 Plt Count 171 K/mm3 (150-450) 12/01/23 06:13 CHEMISTRY Potassium 3.7 mmol/L (3.5-5.1) 12/01/23 06:13 Sodium 131 mmol/L (136-145) L 12/01/23 06:13 Magnesium 2.1 mg/dL (1.6-2.6) 11/29/23 06:55 Phosphorus 4.4 mg/dL (2.5-4.9) 11/29/23 06:55 BUN 11 mg/dL (7-18) 12/01/23 06:13 Creatinine 1.29 mg/dL (0.70-1.30) 12/01/23 06:13 Glucose 83 mg/dL (74-106) 12/01/23 06:13 POC Glucose 95 mg/dL (70-110) 11/07/19 17:48 TSH 2.42 uIU/mL (0.358-3.74) 11/28/23 06:44 COAG PT 30.4 SECONDS (11.7-14.9) H 07/14/23 10:55 Pre-Assessment Diagnosis/Proposed Procedure Planned Operative Procedure(s): Esophagogastroduodenoscopy Anesthesia History 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 When Was Last Pacemaker Check QUESTION #4 FULL TEXT: You/Your Family Experience fever (hyperthermia) with Anesthesia Last Oral Intake Last Oral intake: Last Oral Intake NPO since 00:00 12/01/23 10:44 Meds taken in AM with sips of Yes 12/01/23 10:44 water? 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 Has anyone observed you stop breathing during sleep? STOP Results Positive 11/27/23 22:48 QUESTION #5 FULL TEXT : Do you snore loudly (louder than talking or can be heard through closed doors)? 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 Specify any problems Hx of Preganancy in last 3 N/A 11/27/23 22:48 Months Nurse Filling Out Transfusion [employer] 11/27/23 22:48 & Questions: Date: 11/27/23 11/27/23 22:48 Time: 22:50 11/27/23 22:48 Patient unable to answer at this time (ie. 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 INHALATION Q2H PRN PRN SOB &/OR WHEEZING Apixaban 10 mg 11/28/23 10:00 11/30/23 21:35 Apixaban 5 Mg Tablet PO 12/04/23 22:01 10 mg BID ERIKA Administration Apixaban 5 mg 12/06/23 10:00 Apixaban 5 Mg Tablet PO BID ERIKA Aspirin 81 mg 11/28/23 08:00 11/30/23 08:46 Aspirin 81 Mg Tab.Chew PO Not Given DAILY@0800 [facility] Atorvastatin Calcium 40 mg 11/28/23 22:00 11/30/23 21:35 Atorvastatin Calcium 40 Mg Tablet PO 40 mg QHS ERIKA Administration Carvedilol 3.125 mg 11/29/23 17:00 11/30/23 16:56 Carvedilol 3.125 Mg Tablet PO 3.[facility] Administration Protocol Gabapentin 900 mg 11/28/23 10:00 11/30/23 10:10 Gabapentin 300 Mg Capsule PO 900 mg DAILY ERIKA Administration Sodium Chloride 250 mls @ 15 mls/hr 11/27/23 22:40 IV .[id number] PRN Additional IVPB Infusion Sodium Chloride 250 mls @ 15 mls/hr 11/27/23 22:40 IV .[id number] PRN Saline Flush Ferric Sodium Gluconate 270 mls @ 135 mls/hr 11/30/23 10:00 12/01/23 12:26 Complex 250 mg/ Sodium IV 12/03/23 11:59 Infused Chloride DAILY ERIKA Infusion Pantoprazole Sodium 40 mg/ 110 mls @ 330 mls/hr 11/30/23 22:00 11/30/23 22:00 Sodium Chloride IV Infused Q12 ERIKA Infusion Losartan Potassium 25 mg 11/28/23 10:00 11/30/23 09:21 Losartan Potassium 25 Mg Tablet PO 25 mg DAILY ERIKA Administration Protocol Magnesium Hydroxide 30 ml 11/27/23 22:35 Magnesium Hydroxide 30 Ml Udc PO DAILY PRN PRN Constipation Melatonin 3 mg 11/27/23 22:35 11/30/23 21:35 Melatonin 3 Mg Tablet PO 3 mg QHS PRN PRN Administration INSOMNIA Nicotine 14 mg 11/28/23 10:00 11/30/23 10:14 Nicotine 14 Mg Patch TD Not Given DAILY [facility] Ondansetron HCl 4 mg 11/27/23 22:35 11/28/23 13:19 Ondansetron 4 Mg/2 Ml Vial IV 4 mg Q8H PRN PRN Administration NAUSEA/VOMITING Pantoprazole Sodium 40 mg 11/29/23 22:00 11/30/23 09:21 Pantoprazole Sodium 40 Mg Tablet PO 40 mg BID ERIKA Administration Sodium Chloride 10 - 40 ml 11/27/23 22:40 11/30/23 10:14 0.9% Saline Lock 10 Ml Syringe IV 10 ml UD PRN Administration SALINE FLUSH Tamsulosin HCl 0.4 mg 11/28/23 10:00 11/30/23 09:24 Tamsulosin Hcl 0.4 Mg Capsule PO 0.4 mg DAILY ERIKA Administration Temazepam 15 mg 11/28/23 20:34 11/30/23 21:35 Temazepam 15 Mg Capsule PO 15 mg QHS PRN Administration SLEEP PFSH Medical History Hypertension Back pain Polyarthropathy Dark stools Lumbar radiculopathy Cervical radiculopathy BPH (benign prostatic hyperplasia) Anemia Atrial flutter Chronic pain Smoker Sleep apnea Atrial fibrillation Irregular heart beat Pacemaker Myocardial infarct 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 Wears glasses Alcohol use Uses wheelchair Injury of back Shortness of breath on exertion History of echocardiogram History of stress test History of pacemaker Cardiology follow-up encounter Elevated serum GGT level Elevated liver enzymes Tobacco abuse CAD (coronary artery disease) CVA (cerebral vascular accident) Preoperative evaluation to rule out surgical contraindication Neuropathy Defibrillator discharge SVT (supraventricular tachycardia) Paroxysmal atrial fibrillation Acute CVA (cerebrovascular accident) HLD (hyperlipidemia) Atherosclerosis of coronary artery of [place] heart without angina pectoris History of sudden cardiac arrest successfully resuscitated CHF (congestive heart failure) Cardiac arrest Chronic renal failure, stage 2 (mild) Normochromic normocytic anemia Debility History of ischemic left MCA stroke Depression Dilated cardiomyopathy Essential hypertension Methicillin resistant Staphylococcus aureus infection Personal history of osteomyelitis History of pulmonary embolism History of DVT (deep vein thrombosis) residential current use of anticoagulant Chronic osteomyelitis of left tibia Ulceration of below knee amputation stump Vascular disease Gallstones Arthritis Anemia Pain of amputation stump of left lower extremity Osteomyelitis of left lower extremity Ischemic ulcer of right foot Peripheral arterial disease SVT (supraventricular tachycardia) Hypercoagulable state Home Medications ?Medication ?Instructions ?Recorded ?Last Taken ?Type apixaban 5 mg (74 tabs) tablets in See Rx Instructions PO .COMPLEX 11/29/23 Unknown Rx a dose pack (Eliquis DVT-PE Treat #74 tabs 30D Start) apixaban 5 mg tablet (Eliquis) 5 mg PO BID #60 tabs 11/29/23 Unknown Rx apixaban 5 mg tablet (Eliquis) 10 mg (2 x 5 mg) PO BID #24 tabs 11/29/23 Unknown Rx aspirin 81 mg chewable tablet 81 mg PO DAILY@0800 #30 tabs 11/29/23 Unknown Rx atorvastatin 40 mg tablet 40 mg PO DAILY #90 tabs 11/29/23 Unknown Rx carvedilol 3.125 mg tablet 3.125 mg PO BIDCM #60 tabs 11/29/23 Unknown Rx furosemide 40 mg tablet 40 mg PO BID #180 tabs 11/29/23 Unknown Rx gabapentin 300 mg capsule 600 mg (2 x 300 mg) PO DAILY #60 11/29/23 Unknown Rx caps losartan 25 mg tablet 25 mg PO DAILY #30 tabs 11/29/23 Unknown Rx tamsulosin 0.4 mg capsule 0.4 mg PO DAILY #30 caps 11/29/23 Unknown Rx Allergy/AdvReac Type Severity Reaction Status Date / Time pollen extracts Allergy Intermediate unknown Verified 11/27/23 16:35 Penicillins Allergy Swelling Verified 11/27/23 16:35 adhesive tape AdvReac Rash Verified 11/27/23 16:35 oxycodone (From OxyContin) AdvReac it makes Verified 11/27/23 16:35 me go nuts Family History Mother Diabetes CVA (cerebral vascular accident) Myocardial infarction Father Cancer Prostate Kidney disease Surgical History History of appendectomy History of cardiac catheterization History of implantable cardiac defibrillator (ICD) Hx of leg amputation History of coronary artery stent placement History of carotid endarterectomy History of cardiac radiofrequency ablation (~02/25/13) History of left heart catheterization (LHC) (11/29/19) Status post below knee amputation of left lower extremity History of surgical removal of testicle History of cholecystectomy Social History household members: spouse Smoking Status: Current every day smoker tobacco type: cigarettes alcohol intake: current details: Was previously sober, EtOH abuse. substance use type: does not use caffeine: No what type of physical activity do you participate in: walking frequency: daily additional social history: DOES USE ASPIRIN DOES USE IBUPROFEN Review of Systems (Anesthesia) ROS Narrative System reviewed and no additional complaints, except as documented.
--- NOTE | 2023-12-01 13:37 | OP.CCLET_ITS ---
12/01/2023 Dharmesh Alonso MD [address] [place] [address] [place] [address] Re : Upper GI endoscopy procedure for Prieto Alcantar Dear Dr. Alonso This procedure was performed on Friday, December 01, 2023. My impressions and recommendations are as follows: Impressions : - Esophageal mucosal changes consistent with eosinophilic esophagitis. - Oozing gastric ulcers with pigmented material. Treated with a heater probe. - No gross lesions in the second portion of the duodenum. - Biopsies were taken with a cold forceps for evaluation of eosinophilic esophagitis. Recommendations : - [facility]. - Resume previous diet. - Use Protonix (pantoprazole) 40 mg PO BID indefinitely. - Continue present medications. My findings are described in the full procedure note, which is enclosed. If I can be of further assistance, please feel free to contact me at . Sincerely, Pawel Tafoya, 12/01/2023 1:37:07 PM This report has been signed electronically.
--- NOTE | 2023-12-01 13:37 | OP.EGD_ITS ---
Patient Name: Prieto Alcantar Procedure Date: 12/01/2023 1:17 PM Date of : 1965 Age: 58 Procedure: Upper GI endoscopy Indications: Acute post hemorrhagic anemia, Iron deficiency anemia, Dysphagia Providers: Pawel Tafoya DO Medicines: Monitored Anesthesia Care Patient Profile: This is a 58 year old male. Refer to note in patient chart for documentation of history and physical. Patient has symptoms. Complications: No immediate complications. Procedure: Pre-Anesthesia Assessment: - Prior to the procedure, a History and Physical was performed, and patient medications and allergies were reviewed. The patient is competent. The risks and benefits of the procedure and the sedation options and risks were discussed with the patient. All questions were answered and informed consent was obtained. Patient identification and proposed procedure were verified by the physician in the pre-procedure area. Mental Status Examination: alert and oriented. Airway Examination: normal oropharyngeal airway and neck mobility. Respiratory Examination: clear to auscultation. CV Examination: normal. Prophylactic Antibiotics: The patient does not require prophylactic antibiotics. Prior Anticoagulants: The patient has taken no anticoagulant or antiplatelet agents except for NSAID medication. ASA Grade Assessment: II - A patient with mild systemic disease. After reviewing the risks and benefits, the patient was deemed in satisfactory condition to undergo the procedure. The anesthesia plan was to use monitored anesthesia care (MAC). Immediately prior to administration of medications, the patient was re-assessed for adequacy to receive sedatives. The heart rate, respiratory rate, oxygen saturations, blood pressure, adequacy of pulmonary ventilation, and response to care were monitored throughout the procedure. The physical status of the patient was re-assessed after the procedure. After obtaining informed consent, the endoscope was passed under direct vision. Throughout the procedure, the patient's blood pressure, pulse, and oxygen saturations were monitored continuously. The gastroscope was introduced through the mouth, and advanced to the second part of duodenum. The upper GI endoscopy was accomplished without difficulty. The patient tolerated the procedure well. Scope In: 1:26:31 PM Scope Out: 1:32:02 PM Total Procedure Duration Time 0 hours 5 minutes 31 seconds Findings: Mucosal changes including ringed esophagus, feline appearance, longitudinal furrows and small-caliber esophagus were found in the middle third of the esophagus and in the lower third of the esophagus. Biopsies were obtained from the proximal and distal esophagus with cold forceps for histology of suspected eosinophilic esophagitis. Verification of patient identification for the specimen was done. Estimated blood loss was minimal. Many oozing cratered gastric ulcers with pigmented material were found in the gastric body, on the anterior wall of the stomach, on the greater curvature of the stomach, on the lesser curvature of the stomach, on the posterior wall of the stomach, at the incisura and in the gastric antrum. The largest lesion was 6 mm in largest dimension. Coagulation for hemostasis using heater probe was successful. No gross lesions were noted in the second portion of the duodenum. Impression: - Esophageal mucosal changes consistent with eosinophilic esophagitis. - Oozing gastric ulcers with pigmented material. Treated with a heater probe. - No gross lesions in the second portion of the duodenum. - Biopsies were taken with a cold forceps for evaluation of eosinophilic esophagitis. Recommendation: - [facility] to [facility]. - Resume previous diet. - Use Protonix (pantoprazole) 40 mg PO BID indefinitely. - Continue present medications. Procedure Code(s): --- Professional --- 03935, 59, Esophagogastroduodenoscopy, flexible, transoral; with control of bleeding, any method 02078, 51, Esophagogastroduodenoscopy, flexible, transoral; with biopsy, single or multiple CPT copyright 2021 [employer]. All rights reserved. The codes documented in this report are preliminary and upon electroneurodiagnostic technician review may be revised to meet current compliance requirements. Pawel Tafoya DO 12/01/2023 1:37:07 PM This report has been signed electronically. Number of Addenda: 0 Note Initiated On: 12/01/2023 1:17 PM
--- NOTE | 2023-12-01 13:39 | PCM.POST.ANE ---
Anesthesia: Postop Eval I Current Vital Signs Temperature: 97.8 F Pulse Rate: 81 Blood Pressure: 101/58 Respiratory Rate: 14 Pulse Ox: 98 Oxygen Delivery Method: Room Air Assessment Airway patent: Yes Spontaneous unlabored respirations: Yes Mental status: Asleep nausea: No Vomiting: No Anesthesia Complication: No Fluid Hydration Crystalloid volume administer (ml): 400 Total IV fluid infused: 400 Progress Note Anesthesia document: Postop Eval 1 completed: Yes
--- NOTE | 2023-12-01 13:47 | PN.HOSP_ITS ---
Reason for Visit Reason for Visit: Shortness of breath/arm swelling bilaterally Subjective Subjective Patient with no complaints. Awaiting his EGD so he can eat. States he might be moving to [place] now but is unsure. We did discuss what he needs to do if he does move to [place] with regards to follow-up. He voices understanding. Objective Data Objective Data Vital Signs: Vital Signs Temp Pulse Resp BP Pulse Ox O2 Del Method 97.8 F 78 16 101/58 L 96 Room Air 12/01/23 13:40 12/01/23 13:40 12/01/23 13:40 12/01/23 13:40 12/01/23 13:40 12/01/23 13:40 Oxygen Delivery Method Room Air Weight: 90.3 kg Body Mass Index (BMI) 25.5 Intake & Output: Intake and Output for Last 24 Hours 11/29/23 11/30/23 12/01/23 23:59 23:59 23:59 Intake Total 1140 / 1460 1999 / 1999 510 / 510 Output Total 1600 / 1780 1230 / 1230 150 / 150 Balance -460 / -320 770 / 770 360 / 360 Lab / Micro Data 12/01/23 06:13 12/01/23 06:13 Labs: Laboratory Results - last 24 hr 11/28/23 19:20: Aldolase 16.0 H 12/01/23 06:13: WBC 5.5, RBC 3.59 L, Hgb 10.0 L, Hct 32.0 L, MCV 89.1, MCH 27.9, MCHC 31.3 L, RDW Std Deviation 77.0 H, RDW Coeff of Lawson 23.7 H, Plt Count 171, MPV 9.9, Differential Comment COMMENT, Sodium 131 L, Potassium 3.7, Chloride 101, Carbon Dioxide 24.0, Anion Gap 6, BUN 11, Creatinine 1.29, Estim Creat Clear Calc 72.57, Est GFR (MDRD) Af Amer 74, Est GFR (MDRD) Non-Af 61, B UN/Creatinine Ratio 8.5 L, Glucose 83, Calcium 8.1 L Physical Exam Const alert, oriented x3, no apparent distress, average body habitus and well nourished; Negative for healthy appearing Constitutional Narrative: Very pleasant, upper middle-aged, white male, sitting up in bed, appears comfortable, does appear older than stated age, nontoxic-appearing, watching mash on the television General Appearance: cooperative HEENT normocephalic, head/scalp atraumatic, hearing grossly normal bilaterally and moist oral mucous membranes HEENT Narrative: Mallampati 3, no thrush, dentition is poor Resp normal respiratory effort, no retractions, no use of accessory muscles and No clear to auscultation bilaterally Resp Narrative: Slightly diminished diffusely but clear Auscultation: wheezes; Negative for rales or rhonchi Cardio regular rate, regular rhythm, S1 normal heart sound, S2 normal heart sound, no murmurs and no rub GI normal to inspection, nondistended, normoactive bowel sounds, soft to palpation, non-tender and non-distended Extremity Extremity Narrative: Bilateral upper extremity pitting edema from hands to mid upper biceps region bilaterally that is unchanged, no cyanosis or clubbing, no lower extremity edema Skin Skin Narrative: Ecchymosis on posterior aspects of both arms with more significance on the right upper arm, patient with increased tenderness on the medial and posterior aspect of the right upper arm as well where there is significant ecchymosis but no induration or hard firm area Neuro oriented x3, moves all extremities and no focal motor deficits Speech: speech normal Psych affect normal Psych Narrative: Appropriate, interacts well, extremely pleasant Assessment & Plan Assessment/Plan (1) Hypokalemia: (2) Hyponatremia: (3) Medical non-compliance: (4) Pulmonary embolism: QUALIFIERS: Pulmonary embolism type: single subsegmental (without acute cor pulmonale) Qualified Code(s): I26.93 - Single subsegmental pulmonary embolism without acute cor pulmonale (5) Acute on chronic heart failure with reduced ejection fraction (HFrEF, <= 40%): (6) Aortic thrombus: PLAN: Plan Shortness of breath and upper extremity edema secondary to acute on chronic heart failure with reduced ejection fraction/acute pulmonary embolus -Patient with known hypercoagulable state at baseline but not on medication due to financial issues -Had previously been on Coumadin but had issues with INR control so therefore transition to Eliquis but has been unaffordable for the last 2 months -Case management has assisted us in getting Eliquis for the next month and started financial assistance to follow -Continue Eliquis 10 mg p.o. twice daily through 12/06/2023 and then transition to 5 mg p.o. 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 along with clot -Recommended ongoing anticoagulation and consideration for removal of ICD by cardiology -Will refer to cardiology as an outpatient--appointment has been made for December 05 Aortic thrombus/common femoral thrombus/renal artery thrombus -Anticoagulation as above -Patient has what appears to be chronic clot in his chest and abdominal aorta as well as branches of the aorta -Vascular surgery has evaluated the no need for any acute intervention -Outpatient follow-up with vascular surgery Acute on chronic anemia -EGD done 12/01/2023 and showed esophageal mucosal changes consistent with eosinophilic esophagitis as well as oozing gastric ulcers with pigmented material, ulcers were treated with heater probe and biopsies were taken of his esophagus. No gross lesions were found into the second portion of the duodenum. -Hemoglobin at baseline appears to be between 11 and 12 -Hemoglobin 10.0 this morning and will repeat in a.m. to assess for stability after scope -Continue to hold aspirin -Continued IV iron day 2 of 3 200 mg daily -GI is following-appreciate input Peptic ulcer disease/possible eosinophilic esophagitis -Continue Protonix but transition IV Protonix back to oral Protonix -EGD shows ulcers and possible eosinophilic esophagitis -Biopsies pending -Add Carafate -Will need outpatient GI follow-up -GI is following-appreciate input -Patient must stay on Eliquis -Will discuss with GI how long we should hold aspirin Hyponatremia -Stable at 131 CKD stage IIIa -Baseline serum creatinine has been between 1.25 and 1.4 -Serum creatinine today is 1.29 -Baseline GFR appears to be between 55 and 60 -repeat BMP in a.m. -Avoid nephrotoxins History of paroxysmal atrial fibrillation -Continue carvedilol 3.125 -Continue Eliquis History of left MCA stroke x 2 -Patient with memory issues negatively impacting his ability to remember taking his medications -No significant physical deficits History of dilated cardiomyopathy/SVT/chronic LBBB/history of cardiac arrest -All remote -Has PPM/AICD--> with concern for occlusion removal has been recommended by vascular surgery and patient will need follow-up as an outpatient with cardiology -Appointment has been made -Treatment as above CAD/essential hypertension/hyperlipidemia -Patient with previous PCI -Hold home aspirin -Continue statin -Continue home losartan -Continue at lower dose -As needed hydralazine -Blood pressure and heart rate are well-controlled currently Peripheral vascular disease -History of multiple stents in both legs -home aspirin on hold due to concern for bleeding with drop in hemoglobin -Will restart when okay with GI History of left AKA due to chronic osteomyelitis -Chronic/stable JOSE -Patient noncompliant at baseline and has been intolerant to CPAP previously Tobacco abuse -recommend cessation -Nicotine patch available Medication noncompliance - due to cost -Social work/case management consultation to assist with discharge planning DVT prophylaxis -Eliquis as above CODE STATUS -DNR CCA with no intubation Charges/Coding Visit Charges Inpatient E&M: 72288 Subs Hosp L2
--- NOTE | 2023-12-01 14:15 | NURSING ---
Patient returned to unit
[2023-12-01] MEDS: Losartan Potassium 25 MG Tablet PO (14:26)
[2023-12-01] MEDS: Carvedilol 3.125 MG TABLET PO (14:27)
[2023-12-01] MEDS: Tamsulosin HCl 0.4 MG Capsule PO (14:27)
[2023-12-01] MEDS: APIXABAN 5 MG TABLET 10 MG PO ×2 (14:27→19:51)
[2023-12-01] MEDS: Gabapentin 300 MG Capsule 900 MG PO (14:33)
[2023-12-01] MEDS: Sucralfate 1 GM Tablet PO ×2 (16:32→19:50)
[2023-12-01] MEDS: Atorvastatin Calcium 40 MG Tablet PO (19:50)
[2023-12-01] MEDS: Pantoprazole Sodium 40 MG Tablet PO (19:51)
[2023-12-01] MEDS: Temazepam 15 MG Capsule PO (21:05)
[2023-12-01] MEDS: MELATONIN 3 MG TABLET PO (21:05)
[2023-12-02 02:00] VITALS: BP 125/75; PULSE 85; RESP 16; TEMP 36.1; O2SAT 100
[2023-12-02 03:54] VITALS: BMI 25.9
[2023-12-02] MEDS: Sucralfate 1 GM Tablet PO ×2 (06:22→10:57)
[2023-12-02 07:29] LABS: Hematocrit 30.8 % (40-54); Hemoglobin 9.5 g/dL (13.0-16.5); Mean Corp Hgb Conc 30.8 g/dL (32-36); Mean Corpuscular Hgb 27.4 pg (27.0-32.0); Mean Corpuscular Volume 88.8 fL (80-94); Mean Platelet Vol. 10.1 fl (6.2-12.0); POSITIVE MORPHOLOGY YES; Platelet Count 182 K/mm3 (150-450); RBC Distribution Width CV 23.7 % (11.6-14.6); Red Blood Count 3.47 M/mm3 (4.6-6.2); White Blood Count 5.1 K/mm3 (4.4-11.0)
[2023-12-02 07:45] LABS: Scan Indicated on CBC? Y/N YES- FLAGS NOTED
[2023-12-02 08:00] VITALS: BP 162/93; PULSE 81; RESP 18; TEMP 36.6; O2SAT 100
[2023-12-02 08:11] LABS: Anion Gap 6 (5-15); BUN 9 mg/dL (7-18); BUN/Creat Ratio 7.4 RATIO (10-20); Calcium,Total 8.5 mg/dL (8.5-10.1); Chloride 102 mmol/L (98-107); Creatinine, Serum 1.22 mg/dL (0.70-1.30); EST Glomerular Filtration Rate 65 mL/min (>60); Est Glom Filt Rate - Afr Amer 78 mL/min (>60); Estimated Creatinine Clearance 76.73 ml/min; Glucose 83 mg/dL (74-106); Potassium 4.3 mmol/L (3.5-5.1); Sodium Level 131 mmol/L (136-145)
[2023-12-02] MEDS: Tamsulosin HCl 0.4 MG Capsule PO (08:35)
[2023-12-02] MEDS: Pantoprazole Sodium 40 MG Tablet PO (08:35)
[2023-12-02] MEDS: Losartan Potassium 25 MG Tablet PO (08:35)
[2023-12-02] MEDS: Carvedilol 3.125 MG TABLET PO (08:35)
[2023-12-02] MEDS: APIXABAN 5 MG TABLET 10 MG PO (08:35)
[2023-12-02] MEDS: Gabapentin 300 MG Capsule 900 MG PO (08:43)
[2023-12-02 10:24] LABS: Differential Comment SCANNED
[2023-12-02] MEDS: Sodium Ferric Gluconat 250 MG in 0.9% Normal Saline 250 ML 135 MG IV (10:56)
--- NOTE | 2023-12-02 11:32 | PCM.POSTANE2 ---
Anesthesia Postop Eval I Sum Postop Eval Completion status Anesthesia document: Postop Eval 1 completed: Yes Anesthesia Postop Eval I Summary Anesthesia Postop Eval I Summary: Anesthesia Postop Eval I: Assessment Summary Airway patent Yes 12/01/23 13:48 [email or web address] Spontaneous unlabored Yes 12/01/23 13:48 [email or web address] respirations Mental status Asleep 12/01/23 13:48 [email or web address] nausea No 12/01/23 13:48 [email or web address] Vomiting No 12/01/23 13:48 [email or web address] Anesthesia Postop Eval I: Fluid Summary Crystalloid volume administer 400 12/01/23 13:48 [email or web address] (ml) Colloids volume administered ( ml) Blood Product volume administered (ml) Total IV fluid infused 400 12/01/23 13:48 [email or web address] Anesthesia Postop Eval I: Summary Notes Anesthesia Complication No 12/01/23 13:48 [email or web address] Anesthesia Complication Comment: Post-operative progress note Anesthesia: Postop Eval II Evaluation Mental status: Awake and Calm Pain Level: 1 nausea: No Vomiting: No
[2023-12-02 12:32] VITALS: BP 130/67; PULSE 80; RESP 20; TEMP 36.4; O2SAT 98
--- NOTE | 2023-12-06 12:36 | CCN.REFER ---
PATIENT ACTIVE WITH PATIENT LINK. DEVICE PLACED IN HOME 12/05/23.
== END 2023-12-02 14:05 | disposition home or self-care (01) | DRG 175 ==
LOC: ED 21:20 → PCU 21:37
PROVIDERS: Internal Medicine Gastroenterology; Admitting Provider Internal Medicine; Emergency Provider Student in an Organized Health Care Education/Training Program; PCP Internal Medicine; Visit Provider Internal Medicine
PROC: 0DJ08ZZ Inspection of Upper Intestinal Tract, Via Natural or Artificial Opening Endoscopic (ICD-10-PCS; CPT 43235; principal; 2023-12-01 12:25)
DX: I26.93 Single subsegmental thrombotic pulmonary embolism without acute cor pulmonale (principal); I50.23 Acute on chronic systolic (congestive) heart failure; K25.4 Chronic or unspecified gastric ulcer with hemorrhage; I74.3 Embolism and thrombosis of arteries of the lower extremities; E87.1 Hypo-osmolality and hyponatremia; D62 Acute posthemorrhagic anemia; D68.59 Other primary thrombophilia; N17.9 Acute kidney failure, unspecified; I13.0 Hypertensive heart and chronic kidney disease with heart failure and stage 1 through stage 4 chronic kidney disease, or unspecified chronic kidney disease; I42.0 Dilated cardiomyopathy; I82.211 Chronic embolism and thrombosis of superior vena cava; T82.867A Thrombosis due to cardiac prosthetic devices, implants and grafts, initial encounter; I87.1 Compression of vein; N28.0 Ischemia and infarction of kidney; J44.9 Chronic obstructive pulmonary disease, unspecified; N18.31 Chronic kidney disease, stage 3a; I48.0 Paroxysmal atrial fibrillation; Z89.612 Acquired absence of left leg above knee; K20.0 Eosinophilic esophagitis; I73.9 Peripheral vascular disease, unspecified; I25.10 Atherosclerotic heart disease of native coronary artery without angina pectoris; E87.6 Hypokalemia; E78.5 Hyperlipidemia, unspecified; N18.2 Chronic kidney disease, stage 2 (mild); M54.9 Dorsalgia, unspecified; G47.33 Obstructive sleep apnea (adult) (pediatric); F17.210 Nicotine dependence, cigarettes, uncomplicated; Y71.8 Miscellaneous cardiovascular devices associated with adverse incidents, not elsewhere classified; R13.10 Dysphagia, unspecified; Z91.199 Patient's noncompliance with other medical treatment and regimen due to unspecified reason; Z99.3 Dependence on wheelchair; G89.29 Other chronic pain; T45.516A Underdosing of anticoagulants, initial encounter; N40.0 Benign prostatic hyperplasia without lower urinary tract symptoms; Z91.141 Patient's other noncompliance with medication regimen due to financial hardship; Z66 Do not resuscitate; Z79.01 Long term (current) use of 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s; Z79.899 Other long term (current) drug therapy; Z86.73 Personal history of transient ischemic attack (TIA), and cerebral infarction without residual deficits; Z86.718 Personal history of other venous thrombosis and embolism; Z87.39 Personal history of other diseases of the musculoskeletal system and connective tissue; Z86.14 Personal history of Methicillin resistant Staphylococcus aureus infection; Z86.711 Personal history of pulmonary embolism; Z95.5 Presence of coronary angioplasty implant and graft; Z95.810 Presence of automatic (implantable) cardiac defibrillator; Z95.820 Peripheral vascular angioplasty status with implants and grafts
CPT/HCPCS: 36415; 71045; 71275; 74174; 80048; 80053; 80061; 82085; 82550; 82728; 83540; 83550; 83735; 83880; 84100; 84443; 84484; 85018; 85025; 85027; 85045; 85379; 88305; 88312; 93005; 93306; 93970; 94668; 97802; 99284; J7030; J7050; Q9957; Q9967; A4216; C8929; J1940; J2405; J2916

== ENCOUNTER → 2023-12-05 | Outpatient (CLI) | payer MEDICARE, SELFPAY ==
[2023-07-13 17:54] VITALS: BMI 29.8
[2023-12-05 11:52] LABS: Absolute Lymphocyte Count 1.28 X10^3/uL (0.83-4.51); Basophil# 0.07 X10^3/uL; Basophil% 1.4 % (0-1); Eosinophil# 0.19 X10^3/uL; Eosinophils% 3.8 % (0-5); Hematocrit 32.2 % (40-54); Hemoglobin 9.7 g/dL (13.0-16.5); Lymphocyte # 1.28 X10^3/ul (0.83-4.51); Lymphocyte % 25.6 % (19-41); Mean Corp Hgb Conc 30.1 g/dL (32-36); Mean Corpuscular Hgb 27.2 pg (27.0-32.0); Mean Corpuscular Volume 90.2 fL (80-94); Monocyte# 0.44 X10^3/uL; Monocyte% 8.8 % (0-10); NRBC Flagged by Analyzer 0 % (0-5); POSITIVE MORPHOLOGY YES; Platelet Count 264 K/mm3 (150-450); RBC Distribution Width SD 78.3 fl (35.1-43.9); Red Blood Count 3.57 M/mm3 (4.6-6.2)
[2023-12-05 12:13] LABS: Differential Indicated SCAN CRITERIA MET
[2023-12-05 13:05] LABS: Anion Gap 4 (5-15); BUN 10 mg/dL (7-18); Calcium,Total 8.4 mg/dL (8.5-10.1); Chloride 108 mmol/L (98-107); Creatinine, Serum 1.25 mg/dL (0.70-1.30); EST Glomerular Filtration Rate 63 mL/min (>60); Est Glom Filt Rate - Afr Amer 76 mL/min (>60); Glucose 89 mg/dL (74-106); Potassium 4.4 mmol/L (3.5-5.1); Sodium Level 136 mmol/L (136-145)
[2023-12-05 14:47] LABS: Anisocytosis 2+; Differential Comment SCANNED; Platelet Morphology LARGE
[2023-12-05 14:48] LABS: Macrocytosis 1+; Microcytosis 1+
[2023-12-05 14:56] LABS: Stomatocyte 1+
== END | disposition home or self-care (01) ==
PROVIDERS: PCP Internal Medicine; Referring Provider Nurse Practitioner Family; Visit Provider Nurse Practitioner Family
DX: D64.9 Anemia, unspecified (principal); Z51.81 Encounter for therapeutic drug level monitoring; Z79.899 Other long term (current) drug therapy
CPT/HCPCS: 36415; 80048; 85025